=== PATIENT | female | born 1950 | race Caucasian/White ===

== ENCOUNTER 2016-10-03 12:25 | Inpatient (IN) | payer MEDICARE ==
[~2016-10-03 12:25] MED LIST: AMIODARONE 50 MG/ML 3 ML VIAL IV ONE; DEXTROSE 5% IN WATER 100 ML BAG IV ONE; DEXTROSE 50%-WATER 50 ML SYRINGE IVP ONE; EPINEPHrine 10 ML SYRINGE (0.1 MG/ML) ONE; SODIUM CHLORIDE 0.9% 250 ML BAG ONE
--- NOTE | 2016-10-03 12:40 | ED ---
General Adult HPI - General Stated complaint: cardiac Time Seen by Provider: 10/03/16 12:25 Source: RN notes reviewed - History of Present Illness Initial comments: This is a 66-year-old female was in the hospital to get some diabetic education when she collapsed in the elevator. CPR was initiated initially and immediately by a route sales delivery driver in the elevator with her. According to the monitor while she was in V. fib she was shocked once given 1 of epi and intubated. Patient's pulse returned prior to arrival in the emergency department. Patient states she had no symptoms prior to this event. Patient currently does complain of chest pain but CPR was performed for about 10-15 minutes. At this time she is intubated difficulty with any further history but she is awake and alert and oriented. - Related Data Home Medications Medication Instructions Recorded Confirmed ALPRAZolam [Xanax] 0.25 mg PO BID PRN 06/20/16 06/20/16 Albuterol Inhaler [Ventolin Hfa 1 - 2 puff INHALATION RT-Q6H PRN 06/20/16 Inhaler] Albuterol Nebulized [Ventolin 2.5 mg INHALATION RT-Q6H PRN 06/20/16 06/20/16 Nebulized] Allopurinol [Zyloprim] 300 mg PO HS 06/20/16 06/20/16 Aspirin EC [Ecotrin Low Dose] 162 mg PO HS 06/20/16 06/20/16 Beclomethasone Dipropionate [Qvar 1 puff INHALATION RT-BID 06/20/16 06/20/16 80 mcg] Carvedilol [Coreg] 12.5 mg PO BID 06/20/16 06/20/16 FLUoxetine HCL [PROzac] 20 mg PO DAILY 06/20/16 06/20/16 Famotidine [Pepcid] 20 mg PO HS 06/20/16 06/20/16 Fish Oil/Dha/Epa [Fish Oil 1,200 1 cap PO DAILY 06/20/16 06/20/16 mg Fish Oil] INSULIN LISPRO (humaLOG) [humaLOG 8 - 12 units SQ TID-W/MEALS 06/20/16 06/20/16 (formulary)] Insulin Glargine [Lantus] 10 - 16 unit SQ HS 06/20/16 06/20/16 Losartan [Cozaar] 50 mg PO DAILY 06/20/16 06/20/16 Montelukast [Singulair] 10 mg PO HS 06/20/16 06/20/16 Nitroglycerin Sl Tabs [Nitrostat] 0.4 mg SUBLINGUAL Q5M PRN 06/20/16 06/20/16 Rosuvastatin Calcium [Crestor] 5 mg PO MOWE 06/20/16 06/20/16 Spironolactone [Aldactone] 25 mg PO DAILY 06/20/16 06/20/16 Vitamin E (Dl,Tocopheryl Acet) 400 unit PO DAILY 06/20/16 06/20/16 [Vitamin E] guaiFENesin 400 mg PO BID PRN 06/20/16 06/20/16 metFORMIN HCL [Glucophage Xr] 1,500 mg PO PC-SUPPER 06/20/16 06/20/16 Previous Rx's Medication Instructions Recorded Isosorbide Mononitrate ER [Imdur] 30 mg PO DAILY #30 tab.er.24h 06/24/16 Ranolazine [Ranexa] 500 mg PO Q12HR #60 tab.er.12h 06/24/16 Allergies Allergy/AdvReac Type Severity Reaction Status Date / Time amoxicillin [From Augmentin] Allergy Unknown Verified 06/20/16 22:45 cefprozil [From Cefzil] Allergy Unknown Verified 06/20/16 22:45 clavulanic acid Allergy Unknown Verified 06/20/16 22:45 [From Augmentin] sulfamethoxazole Allergy Unknown Verified 06/20/16 22:45 [From Bactrim] trimethoprim [From Bactrim] Allergy Unknown Verified 06/20/16 22:45 Review of Systems ROS Statement: Those systems with pertinent positive or pertinent negative responses have been documented in the HPI. ROS Other: All systems not noted in ROS Statement are negative. Past Medical History Past Medical History: Coronary Artery Disease (CAD), Chest Pain / Angina, Hyperlipidemia, Hypertension, Myocardial Infarction ([place]) Additional Past Medical History / Comment(s): Mi X3 Last Myocardial Infarction Date:: 2007 History of Any Multi-Drug Resistant Organisms: None Reported Past Surgical History: Back Surgery, Coronary Bypass/CABG, Joint Replacement, Orthopedic Surgery Additional Past Surgical History / Comment(s): right shoulder replacement, back surgX2 Past Anesthesia/Blood Transfusion Reactions: No Reported Reaction Past Psychological History: No Psychological Hx Reported Smoking Status: Never smoker Past Alcohol Use History: Occasional Past Drug Use History: None Reported - Past Family History Father Family Medical History: Coronary Artery Disease (CAD), Hypertension, Myocardial Infarction ([place]) Additional Family Medical History / Comment(s): Open heart, hypoglycemia, kidney stones Mother Family Medical History: Coronary Artery Disease (CAD), Hypertension, Myocardial Infarction ([place]) Additional Family Medical History / Comment(s): open heart surg, siatic nerve issues General Exam - General Exam Comments Initial Comments: GENERAL: Patient is well-developed and well-nourished. Patient is nontoxic and well- hydrated and is in mild distress. ENT: Neck is soft and supple. No significant lymphadenopathy is noted. Oropharynx is clear. Moist mucous membranes. Neck has full range of motion without eliciting any pain. EYES: The sclera were anicteric and conjunctiva were pink and moist. Extraocular movements were intact and pupils were equal round and reactive to light. Eyelids were unremarkable. PULMONARY: Unlabored respirations. Good breath sounds bilaterally. No audible rales rhonchi or wheezing was noted. Patient is currently intubated CARDIOVASCULAR: There is a regular rate and rhythm without any murmurs gallops or rubs. Patient 's chest pain is reproducible ABDOMEN: Soft and nontender with normal bowel sounds. No palpable organomegaly was noted. There is no palpable pulsatile mass. SKIN: Skin is clear with no lesions or rashes and otherwise unremarkable. NEUROLOGIC: Patient is alert and oriented x3. Cranial nerves II through XII are grossly intact. Motor and sensory are also intact. Normal speech, volume and content. Symmetrical smile. MUSCULOSKELETAL: Normal extremities with adequate strength and full range of motion. No lower extremity swelling or edema. No calf tenderness. LYMPHATICS: No significant lymphadenopathy is noted PSYCHIATRIC: Normal psychiatric evaluation. Course Vital Signs 10/03/16 10/03/16 10/03/16 12:25 12:36 12:54 Temperature 97.1 F L Pulse Rate 150 H 72 74 Respiratory 16 16 16 Rate Blood Pressure 141/74 125/87 140/81 O2 Sat by Pulse 95 95 100 Oximetry 10/03/16 10/03/16 10/03/16 13:01 13:11 13:30 Temperature Pulse Rate 72 68 68 Respiratory 18 17 18 Rate Blood Pressure 146/85 148/86 118/65 O2 Sat by Pulse 100 100 97 Oximetry 10/03/16 13:40 Temperature Pulse Rate 64 Respiratory 18 Rate Blood Pressure 109/60 O2 Sat by Pulse 97 Oximetry Medical Decision Making - Medical Decision Making EKG shows normal sinus rhythm at 97 bpm ME interval is 114 QRS is 132 QT interval is 46 QTC is 5:15 when I compared this EKG to an other EKG it appears as though the patient has developed an intraventricular block since the old EKG which was done in June 2016. I started the patient amiodarone with 150 mg bolus. I extubated the patient. Patient's chest x-ray shows the ET tube into far. Patient was stable after the extubation I spoke with Dr. has not admitted the patient I consult cardiology. I wrote admitting orders. I continued the amiodarone on the floor - Lab Data Result diagrams: 10/03/16 12:40 10/03/16 12:40 Lab Results 10/03/16 10/03/16 10/03/16 Range/Units 12:40 12:40 12:40 WBC 7.3 (3.8-10.6) k/uL RBC 4.06 (3.80-5.40) m/uL Hgb 13.1 (11.4-16.0) gm/dL Hct 40.4 (34.0-46.0) % MCV 99.6 (80.0-100.0) fL MCH 32.3 (25.0-35.0) pg MCHC 32.4 (31.0-37.0) g/dL RDW 15.1 (11.5-15.5) % Plt Count 252 (150-450) k/uL Neutrophils % 64 % Lymphocytes % 28 % Monocytes % 4 % Eosinophils % 2 % Basophils % 1 % Neutrophils # 4.6 (1.3-7.7) k/uL Lymphocytes # 2.0 (1.0-4.8) k/uL Monocytes # 0.3 (0-1.0) k/uL Eosinophils # 0.2 (0-0.7) k/uL Basophils # 0.1 (0-0.2) k/uL Macrocytosis Slight PT (9.0-12.0) sec INR (<1.1) APTT (22.0-30.0) sec Sodium 135 L (137-145) mmol/L Potassium 5.3 H (3.5-5.1) mmol/L Chloride 103 (98-107) mmol/L Carbon Dioxide 16 L (22-30) mmol/L Anion Gap 16 mmol/L BUN 22 H (7-17) mg/dL Creatinine 1.24 H (0.52-1.04) mg/dL Est GFR (MDRD) Af Amer 53 (>60 ml/min/1.73 sqM) Est GFR (MDRD) Non-Af 43 (>60 ml/min/1.73 sqM) Glucose 432 H (74-99) mg/dL Calcium 9.8 (8.4-10.2) mg/dL Magnesium 1.7 (1.6-2.3) mg/dL Total Bilirubin 0.8 (0.2-1.3) mg/dL AST 115 H (14-36) U/L ALT 122 H (9-52) U/L Alkaline Phosphatase 69 (38-126) U/L Total Creatine Kinase 54 (30-135) U/L CK-MB (CK-2) 1.5 (0.0-2.4) ng/mL CK-MB (CK-2) Rel Index 2.8 Troponin I 0.047 H* (0.000-0.034) ng/mL NT-Pro-B Natriuret Pep pg/mL Total Protein 6.4 (6.3-8.2) g/dL Albumin 3.9 (3.5-5.0) g/dL 10/03/16 10/03/16 Range/Units 12:40 12:40 WBC (3.8-10.6) k/uL RBC (3.80-5.40) m/uL Hgb (11.4-16.0) gm/dL Hct (34.0-46.0) % MCV (80.0-100.0) fL MCH (25.0-35.0) pg MCHC (31.0-37.0) g/dL RDW (11.5-15.5) % Plt Count (150-450) k/uL Neutrophils % % Lymphocytes % % Monocytes % % Eosinophils % % Basophils % % Neutrophils # (1.3-7.7) k/uL Lymphocytes # (1.0-4.8) k/uL Monocytes # (0-1.0) k/uL Eosinophils # (0-0.7) k/uL Basophils # (0-0.2) k/uL Macrocytosis PT 10.3 (9.0-12.0) sec INR 1.0 (<1.1) APTT 21.2 L (22.0-30.0) sec Sodium (137-145) mmol/L Potassium (3.5-5.1) mmol/L Chloride (98-107) mmol/L Carbon Dioxide (22-30) mmol/L Anion Gap mmol/L BUN (7-17) mg/dL Creatinine (0.52-1.04) mg/dL Est GFR (MDRD) Af Amer (>60 ml/min/1.73 sqM) Est GFR (MDRD) Non-Af (>60 ml/min/1.73 sqM) Glucose (74-99) mg/dL Calcium (8.4-10.2) mg/dL Magnesium (1.6-2.3) mg/dL Total Bilirubin (0.2-1.3) mg/dL AST (14-36) U/L ALT (9-52) U/L Alkaline Phosphatase (38-126) U/L Total Creatine Kinase (30-135) U/L CK-MB (CK-2) (0.0-2.4) ng/mL CK-MB (CK-2) Rel Index Troponin I (0.000-0.034) ng/mL NT-Pro-B Natriuret Pep 1020 pg/mL Total Protein (6.3-8.2) g/dL Albumin (3.5-5.0) g/dL Critical Care Time Critical Care Time: Yes Total Critical Care Time: 35 Disposition Clinical Impression: Ventricular fibrillation, Cardiac arrest Disposition: ADMITTED IP TO THIS [facility] Time of Disposition: 13:46
[2016-10-03] MEDS ORDERED: AMIODARONE 450 MG in DEXTROSE 5% IN WATER 250 ML IV ONE ×2 (12:45)
[2016-10-03] MEDS ORDERED: DEXTROSE 5% IN WATER 100 ML with AMIODARONE 150 MG IV ONE (12:45)
--- NOTE | 2016-10-03 12:55 | XR ---
EXAMINATION TYPE: XR chest 1V portable DATE OF EXAM: 10/03/2016 12:48 PM HISTORY: Shortness of breath. COMPARISON: 06/20/2016 TECHNIQUE: Single view of the chest is submitted. FINDINGS: Endotracheal tube is 1.5 cm from the darwin. Demonstrated are scattered senescent parenchymal change. Right upper lobe infiltrate is difficult to exclude. The heart is stable. Hilar and mediastinal structures are within normal limits. Degenerative changes are seen of the dorsal spine. IMPRESSION: 1. Endotracheal tube as discussed. 2. I cannot exclude right upper lobe infiltrate.
[2016-10-03] MEDS ORDERED: LORazepam 2 MG/ML SYRINGE IV STA (12:56)
[2016-10-03 12:58] LABS: Basophils # (A) 0.1 k/uL (0-0.2); Basophils % (A) 1 %; CH 31.5; CHCM 31.8; Eosinophils # (A) 0.2 k/uL (0-0.7); Eosinophils % (A) 2 %; HCT 40.4 % (34.0-46.0); HDW 2.65; HGB 13.1 gm/dL (11.4-16.0); Luc # (Auto) 0.12; Luc % (Auto) 2; Lymphocytes % (A) 28 %; MCH 32.3 pg (25.0-35.0); MCHC 32.4 g/dL (31.0-37.0); MCV 99.6 fL (80.0-100.0); Macrocytosis Slight; Monocytes # (A) 0.3 k/uL (0-1.0); Monocytes % (A) 4 %; Neutrophils # (A) 4.6 k/uL (1.3-7.7); Neutrophils % (A) 64 %; RBC 4.06 m/uL (3.80-5.40); RDW 15.1 % (11.5-15.5); WBC 7.3 k/uL (3.8-10.6); WBC (Perox) 7.58
[2016-10-03] MEDS: SODIUM CHLORIDE 0.9% 1,000 ML IV SCH (13:00)
[2016-10-03 13:14] LABS: Calcium 9.8 mg/dL (8.4-10.2); Magnesium 1.7 mg/dL (1.6-2.3); Potassium 5.3 mmol/L (3.5-5.1); Total Bilirubin 0.8 mg/dL (0.2-1.3); Total Protein 6.4 g/dL (6.3-8.2)
[2016-10-03 13:15] LABS: Partial Thromboplastin Time 21.2 sec (22.0-30.0); Prothrombin Time 10.3 sec (9.0-12.0)
[2016-10-03 13:31] LABS: Creatine Kinase MB 1.5 ng/mL (0.0-2.4)
[2016-10-03 13:39] LABS: Troponin I 0.047 ng/mL (0.000-0.034)
[2016-10-03] MEDS ORDERED: KETOROLAC 60 MG/2 ML VIAL IVP STA (13:43)
[2016-10-03] MEDS ORDERED: MORPHINE SULFATE 2 MG/ML SYRINGE IVP ONE (13:44)
[2016-10-03] MEDS ORDERED: NITROGLYCERIN SL TABS 0.4 MG TAB SUBLINGUAL PRN ×2 (13:46→15:25)
[2016-10-03 13:47] LABS: Glucose,Whole Blood 355 mg/dL (75-99)
--- NOTE | 2016-10-03 14:28 | ECHOF ---
Referral Reason:Cardiac arrest MEASUREMENTS -------- HEIGHT: 147.3 cm WEIGHT: 91.6 kg BP: 109/60 RVIDd: 2.8 cm (< 3.3) IVSd: 1.4 cm (0.6 - 1.1) LVIDd: 3.9 cm (3.9 - 5.3) LVPWd: 1.4 cm (0.6 - 1.1) IVSs: 1.6 cm LVIDs: 3.3 cm LVPWs: 1.7 cm LA Diam: 4.0 cm (2.7 - 3.8) LAESV Index (A-L): 17.40 ml/m Ao Diam: 2.8 cm (2.0 - 3.7) MV EXCURSION: 12.842 mm (> 18.000) MV EF SLOPE: 20 mm/s (70 - 150) EPSS: 1.1 cm MV E Skinny: 0.60 m/s MV DecT: 266 ms MV A Skinny: 0.72 m/s MV E/A Ratio: 0.83 AV maxP.56 mmHg AV meanP.28 mmHg RAP: 5.00 mmHg RVSP: 38.58 mmHg FINDINGS -------- This was a technically adequate study. The left ventricular size is normal. There is moderate concentric left ventricular hypertrophy. Overall left ventricular systolic function is severely impaired with, an EF between 25 - 30 %. Apical anterior LV wall motion is akinetic. Apical lateral LV wall motion is akinetic. Apical inferior LV wall motion is akinetic. Apical septum LV wall motion is akinetic. The right ventricle is normal in size and function. Normal LA size by volume 22+/-6 ml/m2. The right atrium is normal in size. Aortic valve is trileaflet and is moderately thickened. There is awypjbmd-xi-[id number] aortic stenosis present. Peak/mean gradient across the Aortic Valve is 16.56mmHg / 7.28mmHg. The mitral valve leaflets are mildly thickened. Mild mitral annular calcification present. Mild mitral regurgitation is present. Mild tricuspid regurgitation present. There is mild pulmonary hypertension. The right ventricular systolic pressure, as measured by Doppler, is 38.58mmHg. Trace/mild (physiologic) pulmonic regurgitation. The aortic root size is normal. There is no pericardial effusion. CONCLUSIONS -------- 1. This was a technically adequate study. 2. Normal LA size by volume 22+/-6 ml/m2. 3. Aortic valve is trileaflet and is moderately thickened. 4. There is pmochdgc-ce-ktqchk aortic stenosis present. 5. Peak/mean gradient across the Aortic Valve is 16.56mmHg / 7.28mmHg. 6. The mitral valve leaflets are mildly thickened. 7. Mild mitral annular calcification present. 8. Mild mitral regurgitation is present. 9. Mild tricuspid regurgitation present. 10. There is mild pulmonary hypertension. 11. The right ventricular systolic pressure, as measured by Doppler, is 38.58mmHg. 12. The left ventricular size is normal. 13. Trace/mild (physiologic) pulmonic regurgitation. 14. The aortic root size is normal. 15. There is no pericardial effusion. 16. There is moderate concentric left ventricular hypertrophy. 17. Overall left ventricular systolic function is severely impaired with, an EF between 25 - 30 %. 18. Apical anterior LV wall motion is akinetic. 19. Apical lateral LV wall motion is akinetic. 20. Apical inferior LV wall motion is akinetic. 21. Apical septum LV wall motion is akinetic. 22. The right ventricle is normal in size and function. [employer]OL [employer]RI[employer] SUPERVISOR: Adia Self RDCS
[2016-10-03 15:01] LABS: Glucose,Whole Blood 352 mg/dL (75-99)
[2016-10-03] MEDS ORDERED: ALPRAZolam 0.25 MG TAB PO PRN (15:25)
[2016-10-03 15:45] LABS: Glucose,Whole Blood 306 mg/dL (75-99)
--- NOTE | 2016-10-03 15:48 | P.CRDCN ---
History of Present Illness Consult date: 10/03/16 Requesting physician: Codie Abreu Reason for Consult (text): Cardiac arrest Chief complaint: Cardiac arrest History of present illness: This is a pleasant 66-year-old female with known history of coronary artery disease and prior bypass surgery in 2012 at which time she underwent ADAM to the LAD, saphenous vein graft to the diagonal 1, saphenous vein graft to the OM1 and saphenous vein graft to the PDA, prior to that patient did have a stent to the RCA as well as the LAD. Most recent cardiac catheterization was performed in June of last year which revealed 2 patent grafts, patent ADAM to the LAD and patent saphenous vein graft to the PDA, 100% vein graft to the OM right dominant. Most recent echocardiogram with Doppler study was performed in August of last year which revealed an ejection fraction of 40% with moderately dilated left atrium, abnormal trileaflet aortic valve with mild aortic regurg. The aortic valve was calcified. Mild to moderate mitral regurg at that time. Patient also has history of diabetes, hypertension, hyperlipidemia, family history of premature coronary artery disease. The patient actually came to the hospital today to attend an outpatient diabetes education class, she was in the elevator, speaking with Dr. Christine, when all of a sudden she fell down to the ground. Patient became unresponsive, did not have a palpable pulse and was not breathing. CPR was instantly initiated, subsequent to this, patient was noted to be in ventricular fibrillation and did receive one shock from the AICD at 200. She also received one dose of epinephrine, and an amp of D50. Patient had not eaten all day prior to this event occurring either. We were able to get a pulse back in this patient, she was transferred to the emergency room, blood pressure 138/60 with a heart rate in the 80s. EKG was performed at that time which revealed a normal sinus rhythm with left bundle-branch block pattern. Patient was initiated on IV amiodarone in the emergency room. She was intubated prior to transfer to the emergency room. He is currently extubated. Echocardiogram with Doppler study performed here revealed a moderate to severe aortic stenosis, moderate concentric LVH, left ventricular systolic function severely impaired with an ejection fraction of 25-30% with apical anterior lateral inferior and septal akinesis. CBC was normal. Potassium 5.3, sodium 135, BUN 22, creatinine 1.2. AST 1:15, Alk Phos 69, ALT 122. BNP level MXX, initial troponin 0.047. Magnesium level I.7. Current blood pressure 110/50 with a heart rate in the 60s , 100% on 3 L of oxygen. Past Medical History Past Medical History: Coronary Artery Disease (CAD), Chest Pain / Angina, Hyperlipidemia, Hypertension, Myocardial Infarction ([place]) Additional Past Medical History / Comment(s): Mi X3 Last Myocardial Infarction Date:: 2007 History of Any Multi-Drug Resistant Organisms: None Reported Past Surgical History: Back Surgery, Coronary Bypass/CABG, Joint Replacement, Orthopedic Surgery Additional Past Surgical History / Comment(s): right shoulder replacement, back surgX2 Past Anesthesia/Blood Transfusion Reactions: No Reported Reaction Past Psychological History: No Psychological Hx Reported Smoking Status: Never smoker Past Alcohol Use History: Occasional Past Drug Use History: None Reported - Past Family History Father Family Medical History: Coronary Artery Disease (CAD), Hypertension, Myocardial Infarction ([place]) Additional Family Medical History / Comment(s): Open heart, hypoglycemia, kidney stones Mother Family Medical History: Coronary Artery Disease (CAD), Hypertension, Myocardial Infarction ([place]) Additional Family Medical History / Comment(s): open heart surg, siatic nerve issues Medications and Allergies Home Medications Medication Instructions Recorded Confirmed Type ALPRAZolam [Xanax] 0.25 mg PO DAILY PRN 06/20/16 10/03/16 History Albuterol Inhaler [Ventolin Hfa 1 - 2 puff INHALATION RT-Q6H PRN 06/20/16 History Inhaler] Allopurinol [Zyloprim] 300 mg PO HS 06/20/16 10/03/16 History Aspirin EC [Ecotrin Low Dose] 162 mg PO HS 06/20/16 10/03/16 History Beclomethasone Dipropionate [Qvar 2 puff INHALATION RT-BID 06/20/16 10/03/16 History 80 mcg] Carvedilol [Coreg] 12.5 mg PO BID 06/20/16 10/03/16 History Famotidine [Pepcid] 20 mg PO HS 06/20/16 10/03/16 History INSULIN LISPRO (humaLOG) [humaLOG See Protocol SQ TID-W/MEALS 06/20/16 10/03/16 History (formulary)] Insulin Glargine [Lantus] See Protocol SQ HS 06/20/16 10/03/16 History Montelukast [Singulair] 10 mg PO HS 06/20/16 10/03/16 History Nitroglycerin Sl Tabs [Nitrostat] 0.4 mg SUBLINGUAL Q5M PRN 06/20/16 10/03/16 History Rosuvastatin Calcium [Crestor] 5 mg PO MOWE 06/20/16 10/03/16 History Spironolactone [Aldactone] 25 mg PO DAILY 06/20/16 10/03/16 History guaiFENesin 400 mg PO BID PRN 06/20/16 10/03/16 History metFORMIN HCL [Glucophage Xr] 1,500 mg PO PC-SUPPER 06/20/16 10/03/16 History FLUoxetine HCL [PROzac] 10 mg PO HS 10/03/16 10/03/16 History Furosemide [Lasix] 20 mg PO DAILY 10/03/16 10/03/16 History Isosorbide Mononitrate ER [Imdur] 30 mg PO QAM 10/03/16 10/03/16 History Losartan [Cozaar] 25 mg PO DAILY 10/03/16 10/03/16 History Point Clear-3 Fatty Acids/Fish Oil [Fish 1 cap PO DAILY 10/03/16 10/03/16 History Oil 1,000 mg Softgel] Allergies Allergy/AdvReac Type Severity Reaction Status Date / Time amoxicillin [From Augmentin] Allergy Unknown Verified 06/20/16 22:45 cefprozil [From Cefzil] Allergy Unknown Verified 06/20/16 22:45 clavulanic acid Allergy Unknown Verified 06/20/16 22:45 [From Augmentin] sulfamethoxazole Allergy Unknown Verified 06/20/16 22:45 [From Bactrim] trimethoprim [From Bactrim] Allergy Unknown Verified 06/20/16 22:45 Physical Exam Vitals: Vital Signs Temp Pulse Resp BP Pulse Ox 10/03/16 15:02 97.6 F 62 14 110/55 100 10/03/16 14:11 64 14 145/66 98 PHYSICAL EXAMINATION: HEENT: Head is atraumatic, normocephalic. Pupils equal, round. Neck is supple. There is no elevated jugular venous pressure. HEART EXAMINATION: Heart S1 and S2 systolic ejection murmur is heard. CHEST EXAMINATION: Lungs are clear with minimal crackles to the bases. Positive chest wall tenderness on palpation and with deep breathing, likely secondary to CPR compressions ABDOMEN: Soft, obese, nontender. Bowel sounds are heard. No organomegaly noted. EXTREMITIES: 2+ peripheral pulses with no evidence of peripheral edema and no calf tenderness noted. NEUROLOGIC patient is awake, alert and oriented -3. . Results 10/03/16 12:40 10/03/16 12:40 Current Medications Generic Name Dose Route Start Last Admin Trade Name Freq PRN Reason Stop Dose Admin Albuterol Sulfate 2.5 mg 10/03/16 15:25 Ventolin Nebulized INHALATION RT-Q6H PRN Shortness Of Breath Allopurinol 300 mg 10/03/16 21:00 Zyloprim PO HS CORIE Alprazolam 0.25 mg 10/03/16 15:25 Xanax PO DAILY PRN Anxiety Aspirin 162 mg 10/03/16 21:00 Aspirin PO HS CORIE Atorvastatin Calcium 10 mg 10/03/16 16:00 Lipitor PO MOWE CORIE Beclomethasone Dipropionate 2 puff 10/03/16 20:00 Qvar INHALATION RT-BID CORIE Carvedilol 12.5 mg 10/03/16 17:30 Coreg PO BID-W/MEALS CORIE Famotidine 20 mg 10/03/16 21:00 Pepcid PO HS CORIE Fluoxetine HCl 10 mg 10/03/16 21:00 Prozac PO HS CORIE Amiodarone HCl 450 mg/ 259 mls @ 34.53 mls/hr 10/03/16 12:45 10/03/16 12:57 Dextrose/Water IV 10/03/16 20:15 1 mg/min .Q7H31M ONE 34.53 mls/hr 1 MG/MIN Administration Sodium Chloride 1,000 mls @ 20 mls/hr 10/03/16 13:00 10/03/16 13:00 Saline 0.9% IV 20 mls/hr .Q24H CORIE Administration Isosorbide Mononitrate 30 mg 10/04/16 09:00 Imdur PO QAM CORIE Nitroglycerin 0.4 mg 10/03/16 13:46 Nitrostat SUBLINGUAL Q5M PRN Chest Pain Nitroglycerin 0.4 mg 10/03/16 15:25 Nitrostat SUBLINGUAL Q5M PRN Chest Pain Ranolazine 500 mg 10/03/16 21:00 Ranexa PO Q12HR [facility] EKG Interpretations (text) EKG shows a normal sinus rhythm with a left bundle-branch block pattern Assessment and Plan Plan: Assessment and plan #1 cardiac arrest exact etiology yet undetermined. Patient was noted to have ventricular fibrillation requiring defibrillation. Currently in normal sinus rhythm. #2 known history of coronary artery disease with prior stent placement and bypass surgery, most recent cardiac catheterization performed in June of last year which revealed 2 patent grafts, patent ADAM to the LAD, patent vein graft to the PDA, 100% vein graft to the OM. Medical therapy advised at that time. #3 hypertension #4 diabetes, initial blood glucose 352 after receiving an amp of D50 #5 hyperlipidemia #6 hypertension #7 family history of premature coronary artery disease Plan The patient is currently on IV amiodarone and IV heparin . Echocardiogram with Doppler study revealed moderate to severe aortic stenosis with an ejection fraction of 25-30%. Evidence of apical anterior ,lateral, inferior and septal akinesia. Patient is also currently on aspirin, Lipitor, Coreg, Imdur 30 mg daily, Ranexa. Patient will be transferred to the intensive care unit. Further recommendations to follow DNP note has been reviewed, I agree with a documented findings and plan of care. Patient was seen and examined.
[2016-10-03] MEDS ORDERED: ATORVASTATIN 10 MG TAB PO SCH (16:00)
[2016-10-03] MEDS: CARVEDILOL 12.5 MG TAB PO SCH (16:03)
[2016-10-03] MEDS ORDERED: MAGNESIUM SULFATE-D5W PMX 1 GM in DEXTROSE/WATER 1 100ML.BAG IVPB ONE (16:30)
[2016-10-03 17:53] LABS: Glucose,Whole Blood 305 mg/dL (75-99)
[2016-10-03] MEDS: INSULIN LISPRO (humaLOG) 300 UNIT/3 ML VIAL SQ SCH ×2 (17:54→22:02)
--- NOTE | 2016-10-03 18:08 | P.PN ---
Progress Note - Text This is an addendum to the dictated cardiology consultation. The patient has a known history of coronary artery disease, ischemic cardiomyopathy with an ejection fraction of 35-40% in the past, mild aortic stenosis, history of diabetes, hyperlipidemia and obesity. She has underwent cardiac catheterization in June 2016 and medical therapy was recommended. She has been having occasional stable angina pectoralis but has been more active physically with improvement in her energy, breathing and blood sugar control. Today she was going up to attend a diabetes class, in the elevator when I was with her and after talking with her she suddenly collapsed. CPR was initiated and she was intubated. She was found to be in V. fib on the monitor and received one cardioversion. She also received an amp of of D50. She regained consciousness was normal blood pressure and heart rate. She was extubated in the emergency room. She is awake and alert at this time, according to her prior to the event she did not have any palpitations, or chest pain. She has no prior history of documented ventricular tachycardia or ventricular fibrillation. She did not have any significant change in the frequency or the pattern of her anginal pain. It is possible that the patient had ventricular tachycardia, ventricle fibrillation in view of the known ischemic cardiomyopathy. I will continue her amiodarone for 24 hours, I will review the pattern of her enzymes and her EKG. It is very likely that she will require an ICD. I discussed his findings with her and her family. Depending on her progress further recommendations will be made. Thank you for this consult we will follow with you.
[2016-10-03] MEDS: ALBUTEROL NEBULIZED 2.5 MG/3 ML INHALATION PRN (19:56)
[2016-10-03 20:18] LABS: Creatine Kinase MB 3.3 ng/mL (0.0-2.4); Troponin I 0.4 ng/mL (0.000-0.034)
[2016-10-03] MEDS: CRESTOR 5 MG PO SCH (21:30)
[2016-10-03] MEDS: ALLOPURINOL 300 MG TAB PO SCH (21:31)
[2016-10-03] MEDS: FAMOTIDINE 20 MG TAB PO SCH (21:31)
[2016-10-03] MEDS: RANOLAZINE 500 MG TAB.ER.12H PO SCH (21:31)
[2016-10-03] MEDS: FLUoxetine HCL 10 MG CAP PO SCH (21:31)
[2016-10-03] MEDS: ASPIRIN 81 MG CHEW PO SCH (21:31)
[2016-10-03 21:47] LABS: Glucose,Whole Blood 189 mg/dL (75-99)
[2016-10-03] MEDS: INSULIN GLARGINE 100 UNIT/ML 10 ML VIAL SQ SCH (22:01)
--- NOTE | 2016-10-03 22:17 | HP ---
DATE OF ADMISSION: 10/03/2016 The patient is a 66 -year-old female came for diabetic education in the hospital. In the elevator, the patient had cardiopulmonary arrest. Patient went into V. tach and V. Fib. Fortunately television station manager was present in the elevator and Dr. Christine was present in the elevator. Dr. Christine follows this patient as an outpatient. Patient was shocked and given one dose of epinephrine, intubated, was sent to the ER. Patient was subsequently did well and patient was extubated. Patient is clinically doing well and alert and oriented x3 at this point of time and, although CPR was performed for 10 to 15 minutes apparently, patient is awake, and oriented x3. Patient history goes as below. Patient's previous ejection fraction was 40%. Did have one wall motion abnormality in the past now. There is a repeat echocardiogram that was done today showed decreased ejection fraction of 25%, probably because of ( ) myocardium or new myocardial infarction ejection fraction of 25 to 35% with apically left anterior left overall akinetic and lateral left ventricular wall motion is a candidate and apical inferior left ventricle motion is akinetic as well and apical septum left ventricular wall motion is a candidate. I am starting him on heparin unless and patient also has mild pulmonary hypertension. Moderate to severe aortic stenosis. The patient had a cardiac catheterization in July, which showed triple-vessel disease and patient is on maximize medical therapy with ( ) and patient is only on 20 mg of Lasix and spironolactone, which I am holding it for now because of the borderline renal function and patient is euvolemic at this point of time in spite of all these, baseline creatinine is around 0.9 and holding Aldactone and losartan because of hyperkalemia. Patient has mildly elevated troponin 0.047, can be related to acute myocardial infarction or just because of CPR and EKG no sinus rhythm. The patient was started on amiodarone drip. REVIEW OF SYSTEMS: CONSTITUTIONAL: No fever, no malaise, no fatigue. HEENT: No recent visual problems or hearing problems. Denied any sore throat. CARDIOVASCULAR: presently some chest soreness from resuscitation. PULMONARY: No shortness of breath, no cough, no hemoptysis. GASTROINTESTINAL: No diarrhea, no nausea, no vomiting, no abdominal pain. Normoactive bowel sounds. NEUROLOGICAL: No headaches, no weakness, no numbness. HEMATOLOGICAL: Denies any bleeding or petechiae. GENITOURINARY: Denies any burning micturition, frequency, or urgency. MUSCULOSKELETAL/RHEUMATOLOGICAL: Denies any joint pain, swelling, or any muscle pain. ENDOCRINE: Denies any polyuria or polydipsia. The rest of the 14 point review of systems is negative. Home medications: 1. Alprazolam. 2. Albuterol. 3. Allopurinol. 4. Aspirin. 5. Beclomethasone. 6. Coreg. 7. Fluoxetine. 8. Famotidine. 9. Fish oil. 10. Insulin. 11. Lispro insulin. 12. Glargine. 13. Losartan. 14. Montelukast. 15. Nitroglycerin. 16. ( ). 17. Spironolactone. 18. Vitamin E. 19. Guaifenesen. 20. Metformin. 21. Isosorbide. 22. ( ). ALLERGIES: ALLERGIC TO AMOXICILLIN CEPHALOSPORINS, ( ) AND BACTRIM. PAST MEDICAL HISTORY: Significant for severe coronary artery disease, congestive heart failure, chronic systolic dysfunction, aortic stenosis, myocardial infarction twice in the past with a CABG in the past and stents in the past, cardiac catheterization recently. SOCIAL HISTORY: Denied any smoking, alcohol abuse or any drug abuse. FAMILY HISTORY: Father had coronary artery disease, hypertension, myocardial infarction, and mother had coronary disease, hypertension, myocardial infarction. PHYSICAL EXAMINATION: Temperature 97.6, pulse of 62, respiratory rate of 14. Blood pressure 110/55. Saturating at 100% on 3 liters of O2 by nasal cannula. GENERAL: The patient is alert and oriented x3, not in any acute distress. Well developed, well nourished. HEENT: Pupils are round and equally reacting to light. EOMI. No scleral icterus. No conjunctival pallor. Normocephalic, atraumatic. No pharyngeal erythema. No thyromegaly. CARDIOVASCULAR: S1 and S2 present. No murmurs, rubs, or gallops. PULMONARY: Chest is clear to auscultation, no wheezing or crackles. ABDOMEN: Soft, nontender, nondistended, normoactive bowel sounds. No palpable organomegaly. MUSCULOSKELETAL: No joint swelling or deformity. EXTREMITIES: No cyanosis, clubbing, or pedal edema. NEUROLOGICAL: Gross neurological examination did not reveal any focal deficits. SKIN: No rashes. LABORATORY DATA: CBC, CMP are abnormal for mildly low sodium of 135, potassium of 5.3 and bicarbonate of 16. Anion gap of 16. I will obtain a lactic acid level on her BNP of 0.047, AST and ALT at 155 and 122. We will repeat them again. Can be related to shock liver. Patient's creatinine is 1.24, baseline is 0.9, as mentioned above, magnesium of 17.7. Replace magnesium as well. ASSESSMENT AND PLAN: 1. Cardiorespiratory arrest. Possibility of myocardial infarction. Patient had ventricular tachycardia. Patient most probably will need AICD. Patient will be continued on amiodarone. We will also start her on heparin drip at this point of time because of possibility of acute myocardial infarction. Considering the echocardiogram changes and mildly elevated troponin both of which can be secondary to acute cardiopulmonary arrest and ( ) myocardium. 2. Severe coronary artery disease. 3. Congestive heart failure, chronic systolic dysfunction without any acute exacerbation. The patient because of worsening renal function, and hyperkalemia, I am holding her losartan, spironolactone and Lasix at this time. 4. Acute renal failure, prerenal azotemia, probably due to diuresis. 5. Elevated liver enzymes secondary to decreased organ perfusion from cardiopulmonary arrest, will repeat the liver enzymes tomorrow. 6. Mildly elevated troponin secondary to CPR itself versus possibility of acute myocardial infarction. Cardiology will further evaluate and make decision regarding cardiac catheterization. Patient may eventually need AICD adjustment. 7. Highly elevated blood sugars for which we will use IV insulin. 8. Depression. 9. Hyperlipidemia. Primary care physician is Dr. Trace Christian.
[2016-10-03] MEDS: MONTELUKAST 10 MG TAB PO SCH (22:27)
[2016-10-03] MEDS: HYDROcodone/APAP 5-325MG 1 EACH TAB PO PRN (22:27)
[2016-10-03] MEDS ORDERED: AMIODARONE 450 MG in DEXTROSE 5% IN WATER 250 ML IV SCH ×2 (23:00)
[2016-10-03] MEDS: BECLOMETHASONE DIP 80 MCG/PUFF INHALER INHALATION SCH (23:11)
[2016-10-04 01:23] LABS: Creatine Kinase MB 2.8 ng/mL (0.0-2.4)
[2016-10-04 01:24] LABS: Troponin I 0.422 ng/mL (0.000-0.034)
[2016-10-04] MEDS: HYDROcodone/APAP 5-325MG 1 EACH TAB PO PRN ×5 (02:13→23:37)
[2016-10-04 02:18] LABS: Glucose,Whole Blood 124 mg/dL (75-99)
[2016-10-04] MEDS: INSULIN LISPRO (humaLOG) 300 UNIT/3 ML VIAL SQ SCH ×6 (02:19→20:20)
[2016-10-04 05:27] LABS: Basophils % (A) 1 %; CH 31.8; CHCM 33.4; Eosinophils # (A) 0.1 k/uL (0-0.7); Eosinophils % (A) 2 %; HCT 36.1 % (34.0-46.0); HDW 2.54; HGB 11.6 gm/dL (11.4-16.0); Luc % (Auto) 1; Lymphocytes # (A) 1.3 k/uL (1.0-4.8); Lymphocytes % (A) 17 %; MCH 30.8 pg (25.0-35.0); MCHC 32.1 g/dL (31.0-37.0); MCV 95.9 fL (80.0-100.0); Mean Platelet Volume 7.3; Monocytes # (A) 0.4 k/uL (0-1.0); Monocytes % (A) 6 %; Neutrophils # (A) 5.4 k/uL (1.3-7.7); Neutrophils % (A) 73 %; RBC 3.77 m/uL (3.80-5.40); WBC 7.3 k/uL (3.8-10.6); WBC (Perox) 7.84
[2016-10-04 05:30] LABS: Calcium 9.2 mg/dL (8.4-10.2); Magnesium 1.9 mg/dL (1.6-2.3); Phosphorous 3.2 mg/dL (2.5-4.5); Potassium 4.2 mmol/L (3.5-5.1); Total Bilirubin 0.9 mg/dL (0.2-1.3); Total Protein 5.7 g/dL (6.3-8.2)
[2016-10-04] MEDS: BECLOMETHASONE DIP 80 MCG/PUFF INHALER INHALATION SCH ×2 (07:40→19:14)
[2016-10-04] MEDS: FLUoxetine HCL 10 MG CAP PO SCH ×2 (07:54→20:20)
[2016-10-04 07:57] LABS: Glucose,Whole Blood 124 mg/dL (75-99)
[2016-10-04] MEDS: ISOSORBIDE MONONITRATE ER 30 MG TAB.ER.24H PO SCH (08:58)
[2016-10-04] MEDS: DOCUSATE 100 MG CAP PO SCH ×2 (08:58→20:30)
[2016-10-04] MEDS: MAGNESIUM SULFATE-D5W PMX 1 GM in DEXTROSE/WATER 1 100ML.BAG IVPB SCH ×2 (08:58→11:13)
[2016-10-04] MEDS: CARVEDILOL 12.5 MG TAB PO SCH ×2 (08:58→18:34)
[2016-10-04] MEDS: RANOLAZINE 500 MG TAB.ER.12H PO SCH ×2 (08:59→20:20)
[2016-10-04] MEDS ORDERED: SPIRONOLACTONE 25 MG TAB PO SCH (09:00)
[2016-10-04] MEDS ORDERED: ASPIRIN 325 MG TAB PO SCH (09:00)
[2016-10-04] MEDS ORDERED: FUROSEMIDE 20 MG TAB PO SCH (09:00)
[2016-10-04] MEDS ORDERED: ceFAZolin 1,000 MG in SODIUM CHLORIDE 0.9% IRRIGATIO 250 ML IRRIGATION ONE (12:41)
[2016-10-04] MEDS ORDERED: ceFAZolin 2 GM in SODIUM CHLORIDE 0.9% 100 ML IVPB ONE (12:41)
[2016-10-04] MEDS ORDERED: SODIUM CHLORIDE 0.9% 1,000 ML IV SCH (12:45)
[2016-10-04 13:22] LABS: Glucose,Whole Blood 279 mg/dL (75-99)
[2016-10-04] MEDS ORDERED: MELATONIN 3 MG TABLET PO PRN (13:44)
[2016-10-04] MEDS: LOSARTAN 25 MG TAB PO SCH (13:49)
[2016-10-04] MEDS: traMADol 50 MG TAB PO PRN ×2 (15:12→20:29)
[2016-10-04] MEDS: SODIUM CHLORIDE 0.9% 1,000 ML IV SCH (15:13)
--- NOTE | 2016-10-04 15:49 | P.CNPUL ---
History of Present Illness Consult date: 10/04/16 Requesting physician: Codie Abreu Reason for consult: other (Critical care management) Chief complaint: Cardiac arrest History of present illness: This is a very pleasant 66-year-old female patient who follows with Dr. Christian as her primary care physician. She has a history of coronary artery disease, previous [place] 3 with previous coronary artery bypass grafting, hyperlipidemia, hypertension, diabetes mellitus, asthma. She is maintained on Singulair, Qvar, albuterol. She is a lifelong nonsmoker. She presented here to the hospitalization visitor planning to attend diabetic education classes when she arrested in the elevator. CPR was initiated, she was found to be in ventricular fibrillation and received 1 shock with return of spontaneous circulation. She was intubated and placed on the mechanical ventilator and initially seen in the emergency room. Prior to being admitted to the intensive care unit she was extubated and stable. She is seen today in consultation. Currently she is awake and alert in no acute distress. She is x-ray sitting up in the chair at the bedside. She denies any shortness of breath, cough or congestion. She has significant chest wall pain secondary to CPR otherwise no complaints of palpitations lightheadedness or dizziness. Her echocardiogram revealed moderate to severe aortic stenosis, mild pulmonary hypertension and severely impaired left ventricular systolic function with estimated ejection fraction between 25 and 30%. The plan is for AICD insertion tomorrow. Presently she is maintaining good O2 saturations in the upper 90s on 3 L/m per nasal cannula. She has been hemodynamically stable. Not on any pressors. No further ventricular arrhythmias. Review of Systems 14 point review of system was conducted. All negative other than as mentioned in the HPI. Past Medical History Past Medical History: Asthma, Coronary Artery Disease (CAD), Chest Pain / Angina , Heart Failure, Diabetes Mellitus, Hyperlipidemia, Hypertension, Myocardial Infarction ([place]), Osteoarthritis (OA), Pneumonia, Syncope Additional Past Medical History / Comment(s): Mi X3,GOUT, SPINAL STENOSIS(HAS HAS SX), BRONCHITIS, CONSTIPATION(LAST BM 10-03-16), FEW FALLS LATELY"DIZZY AT TIMES". 10-03-16 CARDIAC ARREST Last Myocardial Infarction Date:: 2007 History of Any Multi-Drug Resistant Organisms: None Reported Past Surgical History: Appendectomy, Back Surgery, Section, Coronary Bypass/CABG, Joint Replacement, Orthopedic Surgery Additional Past Surgical History / Comment(s): right shoulder replacement, back surgX2, QUAD CABG-"DIAPHRAGM PARALIZED AFTER SX HAD TO GO TO PULMONARY REHAB, 7 HEART CATHS-MULTIPLE STENTS BUT NOT SURE EXACTLY HOW MANY. 3 C-SECTIONS, OVARIAN CYST(RT), DENTAL IMPLANT(LOWER), RT SHOULDER REPLACMENT Past Anesthesia/Blood Transfusion Reactions: No Reported Reaction Additional Past Anesthesia/Blood Transfusion Reaction / Comment(s): BLOOD TRANSFUSION AFTER SHOULDER SX- NO REACTION. Past Psychological History: Depression Additional Psychological History / Comment(s): PT LIVES ALONE , HAS 1 INDOOR CAT. USES A WALKER IF WALKING DISTANCE, NO OUTSIDE SERVICES. HAS WALKER, SHOWER CHAIR, HIGH RISE TOILET SEAT, LIFT CHAIR. 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 PT STATES OCC MILD DEPRESSION BUT NO THOUGHTS OF HARMING SELF. Smoking Status: Never smoker Past Alcohol Use History: Occasional Past Drug Use History: None Reported - Past Family History Father Family Medical History: Coronary Artery Disease (CAD), Hypertension, Myocardial Infarction ([place]) Additional Family Medical History / Comment(s): Open heart, hypoglycemia, kidney stones Mother Family Medical History: Coronary Artery Disease (CAD), Hypertension, Myocardial Infarction ([place]) Additional Family Medical History / Comment(s): open heart surg, siatic nerve issues Medications and Allergies Home Medications Medication Instructions Recorded Confirmed Type ALPRAZolam [Xanax] 0.25 mg PO DAILY PRN 06/20/16 10/03/16 History Albuterol Inhaler [Ventolin Hfa 1 - 2 puff INHALATION RT-Q6H PRN 06/20/16 History Inhaler] Allopurinol [Zyloprim] 300 mg PO HS 06/20/16 10/03/16 History Aspirin EC [Ecotrin Low Dose] 162 mg PO HS 06/20/16 10/03/16 History Beclomethasone Dipropionate [Qvar 2 puff INHALATION RT-BID 06/20/16 10/03/16 History 80 mcg] Carvedilol [Coreg] 12.5 mg PO BID 06/20/16 10/03/16 History Famotidine [Pepcid] 20 mg PO HS 06/20/16 10/03/16 History INSULIN LISPRO (humaLOG) [humaLOG See Protocol SQ TID-W/MEALS 06/20/16 10/03/16 History (formulary)] Insulin Glargine [Lantus] 10 unit SQ HS 06/20/16 10/03/16 History Montelukast [Singulair] 10 mg PO HS 06/20/16 10/03/16 History Nitroglycerin Sl Tabs [Nitrostat] 0.4 mg SUBLINGUAL Q5M PRN 06/20/16 10/03/16 History Rosuvastatin Calcium [Crestor] 5 mg PO MOWE 06/20/16 10/03/16 History Spironolactone [Aldactone] 25 mg PO DAILY 06/20/16 10/03/16 History guaiFENesin 400 mg PO BID PRN 06/20/16 10/03/16 History metFORMIN HCL [Glucophage Xr] 1,500 mg PO PC-SUPPER 06/20/16 10/03/16 History FLUoxetine HCL [PROzac] 10 mg PO HS 10/03/16 10/03/16 History Furosemide [Lasix] 20 mg PO DAILY 10/03/16 10/03/16 History Isosorbide Mononitrate ER [Imdur] 30 mg PO QAM 10/03/16 10/03/16 History Losartan [Cozaar] 25 mg PO DAILY 10/03/16 10/03/16 History Freeburn-3 Fatty Acids/Fish Oil [Fish 1 cap PO DAILY 10/03/16 10/03/16 History Oil 1,000 mg Softgel] Allergies Allergy/AdvReac Type Severity Reaction Status Date / Time amoxicillin [From Augmentin] Allergy Unknown Verified 10/03/16 18:03 cefprozil [From Cefzil] Allergy Unknown Verified 10/03/16 18:03 clavulanic acid Allergy Unknown Verified 10/03/16 18:03 [From Augmentin] sulfamethoxazole Allergy Unknown Verified 10/03/16 18:03 [From Bactrim] trimethoprim [From Bactrim] Allergy Unknown Verified 10/03/16 18:03 Physical Exam Vitals: Vital Signs Temp Pulse Resp BP Pulse Ox 10/04/16 13:00 57 L 12 104/54 93 L 10/04/16 12:00 98.5 F 60 13 115/54 96 10/04/16 11:00 57 L 17 148/74 97 10/04/16 10:00 58 L 18 148/74 96 10/04/16 09:00 65 18 147/49 96 10/04/16 08:00 97.2 F L 57 L 19 138/63 92 L 10/04/16 07:30 60 24 138/63 96 10/04/16 07:00 60 20 119/59 99 10/04/16 06:30 57 L 17 119/59 98 10/04/16 06:00 56 L 18 96/49 97 10/04/16 05:30 57 L 20 96/49 96 10/04/16 05:00 62 13 99/40 96 10/04/16 04:30 65 17 99/40 98 10/04/16 04:00 98.3 F 60 20 106/51 97 10/04/16 03:30 59 L 16 106/51 97 10/04/16 03:00 58 L 16 121/66 96 10/04/16 02:30 60 16 121/66 97 10/04/16 02:00 63 17 113/62 95 10/04/16 01:30 5 L 16 113/62 95 10/04/16 01:00 53 L 17 116/64 96 10/04/16 00:30 65 25 H 116/64 96 10/04/16 00:00 97.8 F 49 L 13 117/57 96 10/03/16 23:30 64 17 117/57 96 10/03/16 23:27 65 36 H 117/57 97 10/03/16 23:00 63 24 121/61 97 10/03/16 22:30 64 24 121/61 10/03/16 22:00 19 122/68 98 10/03/16 21:30 0 L 22 118/75 98 10/03/16 21:00 65 18 110/70 98 10/03/16 20:30 63 21 118/65 99 10/03/16 20:07 51 L 10/03/16 20:00 98.3 F 62 13 120/56 100 10/03/16 19:59 51 L 10/03/16 19:30 64 18 136/65 96 10/03/16 19:00 62 28 H 118/71 100 10/03/16 18:30 60 44 H 118/71 100 10/03/16 18:00 61 23 147/72 97 10/03/16 17:30 57 L 13 111/61 85 L 0301/17 17:00 53 L 32 H 126/62 100 10/03/16 16:30 51 L 25 H 112/62 88 L 10/03/16 16:00 60 23 133/76 97 10/03/16 15:33 96.1 F L 61 17 136/75 97 Intake and Output 10/04/16 10/04/16 10/04/16 06:59 14:59 22:59 Intake Total 293.6 343.5 Balance 293.6 343.5 Intake: IV 220.2 143.5 Amiodarone 450 mg In 100.2 83.5 Dextrose 5% in Water 250 ml @ 0.5 MG/MIN 17.26 mls /hr IV .Q15H1M [facility] Rx#: [id number] Sodium Chloride 0.9% 1, 120 60 000 ml @ 20 mls/hr IV . Q24H [facility] Rx#:[id number] Intake, IV Titration 73.4 200 Amount Amiodarone 450 mg In 33.4 Dextrose 5% in Water 250 ml @ 1 MG/MIN 34.53 mls/ hr IV .Q7H31M [facility] Rx#: [id number] Magnesium Sulfate-D5w Pmx 200 1 gm In Dextrose/Water 1 100ml.bag @ 100 mls/hr IVPB Q1H [facility] Rx#: [id number] Sodium Chloride 0.9% 1, 40 000 ml @ 20 mls/hr IV . Q24H [facility] Rx#:[id number] Other: Weight 92.3 kg GENERAL EXAM: Obese. Alert, comfortable in no apparent distress. HEAD: Normocephalic. EYES: Normal reaction of pupils, equal size. NOSE: Clear with pink turbinates. THROAT: No erythema or exudates. NECK: No masses, no JVD. CHEST: No chest wall deformity. LUNGS: Equal air entry with no wheeze, rhonchi or dullness. Crackles in the posterior bases. CVS: S1 and S2 normal with audible systolic murmur, regular rhythm. ABDOMEN: No hepatosplenomegaly, normal bowel sounds, no guarding or rigidity. SPINE: No scoliosis or deformity SKIN: No rashes CENTRAL NERVOUS SYSTEM: No focal deficits, tone is normal in all 4 extremities. Extremities: There is no significant peripheral edema. No clubbing, no cyanosis. Peripheral pulses are intact. Results - Laboratory Findings CBC and BMP: 10/04/16 04:49 10/04/16 04:49 PT/INR, D-dimer PT 10.3 sec (9.0-12.0) 10/03/16 12:40 INR 1.0 (<1.1) 10/03/16 12:40 Abnormal lab findings: Abnormal Labs 10/03/16 10/03/16 10/03/16 15:43 17:44 18:53 RBC Sodium BUN Creatinine Glucose POC Glucose (mg/dL) 306 H 305 H AST ALT CK-MB (CK-2) 3.3 H* Troponin I 0.400 H* Total Protein Albumin Triglycerides 10/03/16 10/04/16 10/04/16 21:46 00:36 02:15 RBC Sodium BUN Creatinine Glucose POC Glucose (mg/dL) 189 H 124 H AST ALT CK-MB (CK-2) 2.8 H* Troponin I 0.422 H* Total Protein Albumin Triglycerides 10/04/16 10/04/16 10/04/16 04:49 04:49 07:56 RBC 3.77 L Sodium 129 L BUN 27 H Creatinine 1.30 H Glucose 121 H POC Glucose (mg/dL) 124 H AST 50 H ALT 85 H CK-MB (CK-2) Troponin I Total Protein 5.7 L Albumin 3.4 L Triglycerides 271 H 10/04/16 13:20 RBC Sodium BUN Creatinine Glucose POC Glucose (mg/dL) 279 H AST ALT CK-MB (CK-2) Troponin I Total Protein Albumin Triglycerides - Diagnostic Findings Chest x-ray: image reviewed Assessment and Plan Plan: Impression: #1 Cardiac arrest secondary to ventricular fibrillation, status post defibrillation 1 and CPR with spontaneous return of circulation. #2 Acute hypoxic respiratory failure secondary to above requiring brief intubation mechanical ventilatory support, recovered. #3 Known history of coronary artery disease with previous stent placement and coronary artery bypass grafting. #4 Ischemic cardiomyopathy with significant global hypokinesia and with severely impaired left ventricular systolic function. Estimated ejection fraction 25-30%. #5 Severe aortic stenosis. #6Diabetes mellitus, type II. #7 History of asthma. #8 Hypertension. #9 Hyperlipidemia. #10 Obesity. Plan: The patient was seen and evaluated by Dr. Cabrera. Her chest x-ray and labs were reviewed. We'll continue with her current pulmonary medications. She is presently stable from the pulmonary and critical care standpoint. We'll continue to monitor her here closely in the ICU. The plan is for automatic implantable cardioverter defibrillator to be implanted tomorrow. Cardiology is following closely. We will continue to follow and make further recommendations based on her clinical status.
--- NOTE | 2016-10-04 15:59 | XR ---
EXAMINATION TYPE: XR chest 1V DATE OF EXAM: 10/04/2016 3:37 PM COMPARISON: 10/03/2016 HISTORY: CHF TECHNIQUE: Single frontal view of the chest is obtained. FINDINGS: Postsurgical changes and cardiomegaly noted. Subsegmental changes at the left lung base. N o overt failure or pneumothorax. IMPRESSION: 1. Basilar atelectasis favored over infiltrate.
--- NOTE | 2016-10-04 16:02 | PN ---
Mrs. Auguste is a 66-year-old female with known history of coronary heart disease, history of severe ischemic cardiomyopathy, who yesterday had sudden cardiac arrest. She is doing well this morning. Her breathing is stable. She has chest wall tenderness. She is in sinus mechanism. There is no evidence of arrhythmia. She has no dizziness and no palpitations. She continues to be on the IV amiodarone, aspirin once a day, Coreg 12.5 mg twice a day, insulin, Crestor, Singulair 10 mg daily, Ranexa 500 mg twice a day. PHYSICAL EXAMINATION: Blood pressure running in the 130s to 140s with a heart rate in the 50s. LUNGS: Clear. HEART: Regular rate, rhythm. S1, S2. No S3. With systolic murmur 3/6 at the base. No diastolic murmur. No rub. Chest wall with chest wall tenderness. ABDOMEN: Soft, nontender, obese. EXTREMITIES: No or edema. LAB DATA: BUN and creatinine 27 and 1.3. Potassium 4.2. Hemoglobin of 11.6. Echocardiogram revealed severely impaired left ventricular systolic function. There was evidence of aortic stenosis. Her troponins are 0.04, 0.4, 0.4. IMPRESSION: 1. Status post cardiac arrest in a patient with known history of cardiomyopathy. 2. Status post coronary artery bypass grafting and percutaneous revascularization. 3. History of prior myocardial infarction. 4. Hypertension. 5. Diabetes. 6. Hyperlipidemia. 7. Aortic stenosis. RECOMMENDATIONS: From the cardiac standpoint, I would stop the amiodarone. I will start her back on the losartan. Will follow her renal function. I have recommended proceeding with an ICD implantation. The rationale behind the procedure as well as risks and complications were discussed with the patient and her family. The procedure will be done tomorrow by Dr. Mckeon. Depending on her progress, further recommendations will be made.
[2016-10-04 17:57] LABS: Glucose,Whole Blood 197 mg/dL (75-99)
[2016-10-04] MEDS ORDERED: ONDANSETRON 4 MG/2 ML VIAL IVP PRN (18:20)
--- NOTE | 2016-10-04 19:11 | PN ---
Patient is a 66-year-old female admitted after ventricular fibrillation and cardiopulmonary arrest. Patient is clinically doing well. Patient is going for AICD placement tomorrow. No plan on cardiac catheterization considering her recent cardiac cath. Patient has mild hyponatremia; unsure of the exact etiology of hyponatremia, probably hypovolemic hyponatremia. Creatinine remains at 1.3. Patient is complaining of chest soreness. Will use tramadol for that. Avoid other NSAIDs because of the poor renal function. REVIEW OF SYSTEMS: CARDIOVASCULAR: As described in HPI. PULMONARY: Denied any shortness of breath. No cough or hemoptysis. GASTROINTESTINAL: No diarrhea, nausea or vomiting. No abdominal pain. Normoactive bowel sounds. NEUROLOGIC: No headaches, no weakness, no numbness. Medications were reviewed. PHYSICAL EXAMINATION: VITAL SIGNS: Temperature 98.5, pulse of 57, respiratory rate of 12, blood pressure is 104/54, saturating at 93% on 3-L O2 nasal cannula. GENERAL: The patient is alert and oriented x3, not in any acute distress. Well developed, well nourished. Some chest wall tenderness. HEENT: Pupils are round and equally reacting to light. EOMI. No scleral icterus. No conjunctival pallor. Normocephalic, atraumatic. No pharyngeal erythema. No thyromegaly. CARDIOVASCULAR: S1 and S2 present. No murmurs, rubs, or gallops. PULMONARY: Chest is clear to auscultation, no wheezing or crackles. ABDOMEN: Soft, nontender, nondistended, normoactive bowel sounds. No palpable organomegaly. MUSCULOSKELETAL: No joint swelling or deformity. EXTREMITIES: No cyanosis, clubbing, or pedal edema. NEUROLOGICAL: Gross neurological examination did not reveal any focal deficits. SKIN: No rashes. LABORATORY DATA: CBC, BMP are abnormal for low sodium of 129, creatinine of 1.3, which is fairly similar to yesterday. Liver enzymes are improving. ASSESSMENT AND PLAN: 1. Status post cardiopulmonary arrest secondary to ventricular tachycardia. Patient is presently continues to be on amiodarone drip, is going for AICD tomorrow. 2. Coronary artery disease with percutaneous coronary interventions in the past. 3. Congestive heart failure, chronic systolic dysfunction without any acute exacerbation. Will obtain a repeat chest x-ray today. Patient is hyponatremic, can be hypovolemic hyponatremia. 4. Chest wall pain. Patient is presently not on any fluids or any diuretic therapy. 5. Elevated liver enzymes, which are improving, secondary to temporary hypoperfusion secondary to cardiopulmonary arrest. 6. Elevated troponin secondary to CPR. 7. Depression. 8. Hyperlipidemia. 9. Diabetes mellitus. Patient will be started on home regimen. Discontinue IV insulin. 10. Hyperlipidemia.
[2016-10-04] MEDS: ALBUTEROL NEBULIZED 2.5 MG/3 ML INHALATION PRN (19:14)
[2016-10-04] MEDS: FAMOTIDINE 20 MG TAB PO SCH (20:19)
[2016-10-04] MEDS: ALLOPURINOL 300 MG TAB PO SCH (20:19)
[2016-10-04] MEDS: ASPIRIN 81 MG CHEW PO SCH (20:19)
[2016-10-04] MEDS: MONTELUKAST 10 MG TAB PO SCH (20:19)
[2016-10-04 20:20] LABS: Glucose,Whole Blood 238 mg/dL (75-99)
[2016-10-04] MEDS: INSULIN GLARGINE 100 UNIT/ML 10 ML VIAL SQ SCH (20:20)
[2016-10-05] MEDS: traMADol 50 MG TAB PO PRN (03:02)
[2016-10-05] MEDS: INSULIN LISPRO (humaLOG) 300 UNIT/3 ML VIAL SQ SCH ×8 (03:05→21:40)
[2016-10-05 03:07] LABS: Glucose,Whole Blood 189 mg/dL (75-99)
[2016-10-05 05:12] LABS: Basophils % (A) 0 %; CH 31.8; CHCM 33.2; Eosinophils # (A) 0.2 k/uL (0-0.7); Eosinophils % (A) 4 %; HCT 35.6 % (34.0-46.0); HDW 2.57; HGB 11.8 gm/dL (11.4-16.0); Luc % (Auto) 2; Lymphocytes # (A) 1.1 k/uL (1.0-4.8); Lymphocytes % (A) 16 %; MCH 31.8 pg (25.0-35.0); MCHC 33.1 g/dL (31.0-37.0); MCV 96.2 fL (80.0-100.0); Mean Platelet Volume 7.3; Monocytes # (A) 0.4 k/uL (0-1.0); Monocytes % (A) 6 %; Neutrophils % (A) 73 %; RDW 14.7 % (11.5-15.5); WBC 6.8 k/uL (3.8-10.6); WBC (Perox) 7.41
[2016-10-05 05:21] LABS: Calcium 9.2 mg/dL (8.4-10.2); Potassium 4.8 mmol/L (3.5-5.1)
[2016-10-05 05:22] LABS: Partial Thromboplastin Time 23.2 sec (22.0-30.0); Prothrombin Time 9.9 sec (9.0-12.0)
[2016-10-05] MEDS ORDERED: CLINDAMYCIN 900 MG in DEXTROSE 5% IN WATER 50 ML IVPB ONE ×2 (06:00)
[2016-10-05] MEDS: SODIUM CHLORIDE 0.9% 1,000 ML IV SCH ×2 (06:00→06:59)
[2016-10-05] MEDS: HYDROcodone/APAP 5-325MG 1 EACH TAB PO PRN ×4 (06:00→20:30)
[2016-10-05] MEDS ORDERED: CLINDAMYCIN 600 MG in SODIUM CHLORIDE 0.9% IRRIGATIO 250 ML IRRIGATION ONE (06:00)
[2016-10-05] MEDS ORDERED: MIDAZOLAM 2 MG/2 ML VIAL ONE (07:48)
[2016-10-05] MEDS ORDERED: fentaNYL (PF) 50 MCG/ML 2 ML AMP ONE (07:48)
[2016-10-05] MEDS ORDERED: SODIUM CHLORIDE 0.9% 500 ML IV ONE (08:00)
[2016-10-05] MEDS ORDERED: IODIXANOL 320 MG/ML 100 ML IV ONE (08:18)
[2016-10-05] MEDS: LIDOCAINE 1% INJ 10MG/ML (20 ML MDV) SQ ONE ×2 (08:24→08:30)
--- NOTE | 2016-10-05 08:44 | XR ---
EXAMINATION TYPE: XR chest 1V DATE OF EXAM: 10/05/2016 6:30 AM COMPARISON: NONE INDICATION: Short of breath TECHNIQUE: Single frontal view of the chest is obtained. FINDINGS: The heart size is upper limits of normal for size. Sternotomy wires from previous CABG are evident.. The pulmonary vasculature is normal. There may be some increasing right lower lobe medial infiltrate. Some minimal subsegmental atelectasi s may be developing at the left base. Findings are only mildly advanced from prior study. Right shoulder prosthesis is noted IMPRESSION: 1. There may be some developing minimal infiltrate at the lung bases. Atelectasis or early pneumonia could be considered.
[2016-10-05] MEDS ORDERED: ACETAMINOPHEN TAB 325 MG TAB PO PRN (09:12)
--- NOTE | 2016-10-05 09:26 | P.PCN ---
Date of Procedure: 10/05/16 Preoperative Diagnosis: Ischemic cardiomyopathy, status post cardiac arrest. Postoperative Diagnosis: The same Procedure(s) Performed: Implantation of single-chamber AICD, axillary venography. No DFT testing at this time Description of Procedure: HISTORY: This is a 66-year-old female with history of ischemic heart disease, previous anterior wall DE and several cardiac catheterization and stent placement had a cardiac arrest and witnessed ventricular fibrillation from which she was successfully resuscitated. AICD implantation is requested for secondary prevention. Patient was evaluated by Dr. Christine . Left ventricular ejection fraction is about 25-30%. Patient also may have moderate to severe aortic stenosis. This is grossly evaluated by ANGELIC examination. May consider doing DFT testing after evaluation for aortic stenosis. CONSENT:I have discussed the risks, benefits and alternative therapies for the above-mentioned procedure and for both sedation/analgesia as well as necessary blood product administration, if indicated, as they pertain to this patient. The patient has indicated understanding and acceptance of the risks and procedures discussed. PROCEDURE: Patient was brought to the lab in a fasting state. Patient was prepped and draped in the usual fashion. Patient was given IV sedation with fentanyl and Versed. The skin below the left clavicle was infiltrated with lidocaine. An incision was made parallel to deltopectoral groove was deepened until the pectoral fascia was exposed. A pocket was created by blunt dissection and cautery. Axillary venography was performed to delineate the course of the axillary vein. A single venous stick was performed into extrathoracic portion of the axillary vein and a single sheath was advanced over the guidewires and left in subclavian vein. The lead was then maneuvered to the apical region of the left ventricle. LEAD: VENTRICULAR: this is manufactured by [employer]. Model number is [id number] and the serial number is [id number]. THE DEVICE: This is manufactured by [employer]. Model number is [id number] and the serial number is [id number]. The ventricular lead is maneuvered l with help of a straight and curved stylets into the left ventricle apical region. At the apex the R waves are small and threshold was very high. Subsequently the lead was maneuvered to the septal portion and a satisfactory position was obtained and threshold measurements were made. THRESHOLDS: VENTRICLE : The minimal patient threshold is 1 V at pulse width of 0.5 ms. The impedance was 483 ohms. R-wave: Is 7 to 8 mV The lead and pulse generator remained in the pocket after it was washed with antibiotics. Pocket was closed in the usual fashion. The fascia was closed with 2-0 Prolene ,the subcutaneous tissue was closed with 3-0 Prolene and the skin was closed with 4-0 Prolene. PROGRAMMING: BRADYCARDIA THERAPY: MODE: VVI RATE: 40 OUTPUT: ventricle: 3.5 at 0.5 ms : TACHYCARDIA THERAPY VF ZONE: Programmed to a rate of 205 bpm. Therapies programmed to 41 J 8. VT ZONE: Programmed to a rate of 175 with a rhythm ID. Shocks were programmed to 41 J 6. FINAL IMPRESSION: #1. Axillary venography #2. Successful implantation of single coil single-chamber AICD. COMPLICATIONS: nil PLAN: Continue prophylactic antibiotics. Proceed with a ANGELIC to assess the significance of aortic stenosis. If aortic stenosis is not significant, may proceed with the DFT testing later on.
[2016-10-05 09:54] LABS: Glucose,Whole Blood 145 mg/dL (75-99)
[2016-10-05] MEDS: ISOSORBIDE MONONITRATE ER 30 MG TAB.ER.24H PO SCH ×2 (10:27→10:28)
[2016-10-05] MEDS: RANOLAZINE 500 MG TAB.ER.12H PO SCH ×2 (10:28→21:41)
[2016-10-05] MEDS: LOSARTAN 25 MG TAB PO SCH (10:28)
[2016-10-05] MEDS: DOCUSATE 100 MG CAP PO SCH ×2 (10:29→22:43)
--- NOTE | 2016-10-05 10:37 | PN ---
Mrs. Auguste is a 66-year-old female with known history of coronary artery disease, ischemic cardiomyopathy, status post coronary artery bypass grafting and percutaneous revascularization who presented with cardiac arrest. She underwent CPR. Because of the event in the poor LV function, she underwent an ICD implant today. She is having some chest soreness related to the CPR. Her breathing is stable. She denies no dizziness. No palpitation. She has no arrhythmia. No PND. She slept well during the night. She has continued to be in sinus mechanism. She continued to be on aspirin once a day, Coreg 12.5 mg twice a day, isosorbide mononitrate 30 mg daily, Cozaar 25 mg daily, Ranexa 500 mg q.12 hours in addition to Crestor. PHYSICAL EXAMINATION: Blood pressure running in the one teens with the heart rate in the 50s. LUNGS: Clear. HEART: Regular rate and rhythm. S1, S2, no S3, with systolic murmur 2/6, mid peaking. No diastolic murmur. ABDOMEN: Soft, obese, nontender. EXTREMITIES: No significant edema. Lab data revealed BUN and creatinine 22 and 1.2. Potassium 4.8. Hemoglobin of 11.8. IMPRESSION: 1. Status post cardiac arrest with severe cardiomyopathy and episode of ventricular fibrillation. 2. Status post ICD implant. 3. Ischemic cardiomyopathy. 4. History of coronary artery disease. 5. Hyperlipidemia. 6. Diabetes mellitus. 7. Obesity. RECOMMENDATION: From the cardiac standpoint, will continue present therapy. Patient had evidence of aortic stenosis. Her gradient is not high, but that has been the same all along on the recent echocardiogram by planimetry the valve appears to be more significant. Once the patient recovers from this, as an outpatient I will proceed with a transesophageal echocardiogram to further evaluate the aortic valve and guide her treatment. In the meantime will continue present medical regimen and I would expect she should be able to go to the telemetry floor today and increase her level of activity.
--- NOTE | 2016-10-05 11:04 | P.PN ---
Subjective Principal diagnosis: Status post cardiac arrest This is a very pleasant 66-year-old female patient who follows with Dr. Christian as her primary care physician. She has a history of coronary artery disease, previous CT 3 with previous coronary artery bypass grafting, hyperlipidemia, hypertension, diabetes mellitus, asthma. She is maintained on Singulair, Qvar, albuterol. She is a lifelong nonsmoker. She presented here to the hospitalization visitor planning to attend diabetic education classes when she arrested in the elevator. CPR was initiated, she was found to be in ventricular fibrillation and received 1 shock with return of spontaneous circulation. She was intubated and placed on the mechanical ventilator and initially seen in the emergency room. Prior to being admitted to the intensive care unit she was extubated and stable. She is seen today in consultation. Currently she is awake and alert in no acute distress. She is x-ray sitting up in the chair at the bedside. She denies any shortness of breath, cough or congestion. She has significant chest wall pain secondary to CPR otherwise no complaints of palpitations lightheadedness or dizziness. Her echocardiogram revealed moderate to severe aortic stenosis, mild pulmonary hypertension and severely impaired left ventricular systolic function with estimated ejection fraction between 25 and 30%. The plan is for AICD insertion tomorrow. Presently she is maintaining good O2 saturations in the upper 90s on 3 L/m per nasal cannula. She has been hemodynamically stable. Not on any pressors. No further ventricular arrhythmias. Patient was seen today on 10/05/2016, she is doing well, she is asymptomatic, patient underwent implantation of single-chamber AICD by cardiology, and her postoperative course seems to be quite uneventful. Patient is asymptomatic, she is hemodynamically stable, and she is doing quite well. Hence I will likely arrange for the patient to be transferred to a cardiac floor/monitored bed. Objective - Vital Signs Vital signs: Vital Signs Temp 98 F 10/05/16 09:42 Pulse 59 L 10/05/16 10:19 Resp 14 10/05/16 10:19 BP 96/64 10/05/16 09:42 Pulse Ox 94 L 10/05/16 09:42 Intake & Output 10/04/16 10/05/16 10/05/16 18:59 06:59 18:59 Intake Total 483.5 540 296 Output Total 900 Balance 483.5 -360 296 Weight 94.6 kg Intake: IV 283.5 100 296 Amiodarone 450 mg In 83.5 Dextrose 5% in Water 250 ml @ 0.5 MG/MIN 17.26 mls /hr IV .Q15H1M CORIE Rx#: [id number] Sodium Chloride 0.9% 1, 200 100 40 000 ml @ 20 mls/hr IV . Q24H CORIE Rx#:[id number] Intake, IV Titration 200 Amount Magnesium Sulfate-D5w Pmx 200 1 gm In Dextrose/Water 1 100ml.bag @ 100 mls/hr IVPB Q1H CORIE Rx#: [id number] Oral 440 Output: Urine 900 Other: Voiding Method Bedside Commode Bedside Commode # Voids 1 1 - Exam GENERAL EXAM: Obese. Alert, comfortable in no apparent distress. HEAD: Normocephalic. EYES: Normal reaction of pupils, equal size. NOSE: Clear with pink turbinates. THROAT: No erythema or exudates. NECK: No masses, no JVD. CHEST: No chest wall deformity. LUNGS: Equal air entry with no wheeze, rhonchi or dullness. Crackles in the posterior bases. CVS: S1 and S2 normal with audible systolic murmur, regular rhythm. ABDOMEN: No hepatosplenomegaly, normal bowel sounds, no guarding or rigidity. SPINE: No scoliosis or deformity SKIN: No rashes CENTRAL NERVOUS SYSTEM: No focal deficits, tone is normal in all 4 extremities. Extremities: There is no significant peripheral edema. No clubbing, no cyanosis. Peripheral pulses are intact. - Labs CBC & Chem 7: 10/05/16 04:14 10/05/16 04:14 Labs: Abnormal Lab Results - Last 24 Hours (Table) 10/04/16 10/04/16 10/04/16 Range/Units 13:20 17:55 20:18 RBC (3.80-5.40) m/uL Sodium (137-145) mmol/L Chloride (98-107) mmol/L BUN (7-17) mg/dL Creatinine (0.52-1.04) mg/dL Glucose (74-99) mg/dL POC Glucose (mg/dL) 279 H 197 H 238 H (75-99) mg/dL 10/05/16 10/05/16 10/05/16 Range/Units 03:04 04:14 04:14 RBC 3.70 L (3.80-5.40) m/uL Sodium 126 L (137-145) mmol/L Chloride 95 L (98-107) mmol/L BUN 22 H (7-17) mg/dL Creatinine 1.20 H (0.52-1.04) mg/dL Glucose 141 H (74-99) mg/dL POC Glucose (mg/dL) 189 H (75-99) mg/dL 10/05/16 Range/Units 09:49 RBC (3.80-5.40) m/uL Sodium (137-145) mmol/L Chloride (98-107) mmol/L BUN (7-17) mg/dL Creatinine (0.52-1.04) mg/dL Glucose (74-99) mg/dL POC Glucose (mg/dL) 145 H (75-99) mg/dL Assessment and Plan Plan: #1 Cardiac arrest secondary to ventricular fibrillation, status post defibrillation 1 and CPR with spontaneous return of circulation. #2 Acute hypoxic respiratory failure secondary to above requiring brief intubation mechanical ventilatory support, recovered. #3 Known history of coronary artery disease with previous stent placement and coronary artery bypass grafting. #4 Ischemic cardiomyopathy with significant global hypokinesia and with severely impaired left ventricular systolic function. Estimated ejection fraction 25-30%. #5 Severe aortic stenosis. #6Diabetes mellitus, type II. #7 History of asthma. #8 Hypertension. #9 Hyperlipidemia. #10 Obesity. #11 status post implantation of a single-chamber AICD, postoperative day #0 Plan continue present supportive care measures, patient would likely be transferred to a cardiac floor, and hopefully discharge home in the next 24 hours if agreeable by cardiology. Time with Patient: Less than 30
[2016-10-05 11:45] LABS: Glucose,Whole Blood 154 mg/dL (75-99)
[2016-10-05] MEDS: BECLOMETHASONE DIP 80 MCG/PUFF INHALER INHALATION SCH ×2 (13:26→19:33)
[2016-10-05] MEDS: CARVEDILOL 12.5 MG TAB PO SCH ×2 (14:02→17:45)
[2016-10-05] MEDS: CLINDAMYCIN 900 MG in DEXTROSE 5% IN WATER 50 ML IVPB SCH ×4 (14:03→19:55)
[2016-10-05] MEDS: BENZOCAINE/MENTHOL LOZENG 1 EACH LOZENGE MUCOUS MEM PRN (16:46)
[2016-10-05 17:16] LABS: Glucose,Whole Blood 198 mg/dL (75-99)
[2016-10-05 17:44] LABS: Glucose,Whole Blood 177 mg/dL (75-99)
--- NOTE | 2016-10-05 19:33 | PN ---
Patient is a 66-year-old admitted after V. tachycardia, cardiopulmonary arrest. Patient's ejection fraction is 25%. Patient had AICD that was placed today. Patient is otherwise clinically doing well. REVIEW OF SYSTEMS: CARDIOVASCULAR: No chest pain, no orthopnea, no PND, no palpitations. PULMONARY: Denied any shortness of breath. No cough or hemoptysis. GASTROINTESTINAL: No diarrhea, nausea or vomiting. No abdominal pain. Normoactive bowel sounds. NEUROLOGIC: No headaches, no weakness, no numbness. Medications were reviewed. PHYSICAL EXAMINATION: VITAL SIGNS: Temperature 98.1, pulse 62, respiratory rate of 14, blood pressure is 104/46, saturating at 95% on room air. GENERAL: The patient is alert and oriented x3, not in any acute distress. Well developed, well nourished. HEENT: Pupils are round and equally reacting to light. EOMI. No scleral icterus. No conjunctival pallor. Normocephalic, atraumatic. No pharyngeal erythema. No thyromegaly. CHEST WALL EXAMINATION: Patient had AICD that was placed today with preoperative antibiotics of clindamycin. PULMONARY: Chest is clear to auscultation, no wheezing or crackles. ABDOMEN: Soft, nontender, nondistended, normoactive bowel sounds. No palpable organomegaly. MUSCULOSKELETAL: No joint swelling or deformity. EXTREMITIES: No cyanosis, clubbing, or pedal edema. NEUROLOGICAL: Gross neurological examination did not reveal any focal deficits. SKIN: No rashes. LABORATORY DATA: CBC, CMP are abnormal for low sodium of 126, BUN of 22, creatinine 1.2. Chest x-ray from today showed some developing minimal infiltrate or atelectasis. This appears to be mostly secondary to cardiopulmonary resuscitation. ASSESSMENT AND PLAN: 1. Status post cardiopulmonary arrest secondary to ventricular tachycardia. Patient has an AICD now. 2. Severe ischemic cardiomyopathy and congestive heart failure secondary to that. Patient does not appear to be in congestive heart failure exacerbation at this point of time. Continue with present medication. Patient was started on losartan by Cardiology. 3. Chest wall pain secondary to CPR. 4. Patient's liver enzymes have come down. Liver enzyme elevation is secondary to temporary hypoperfusion secondary to CPR. 5. Depression. 6. Hyperlipidemia. 7. Diabetes mellitus. 8. Mild atelectasis secondary to cardiopulmonary resuscitation. I do not believe patient will need any antibiotics. Patient did receive preoperative antibiotics. Regarding ischemic the patient's ejection fraction is around 20 to 25%.
[2016-10-05 21:09] LABS: Glucose,Whole Blood 178 mg/dL (75-99)
[2016-10-05] MEDS: FLUoxetine HCL 10 MG CAP PO SCH (21:39)
[2016-10-05] MEDS: ASPIRIN 81 MG CHEW PO SCH (21:39)
[2016-10-05] MEDS: INSULIN GLARGINE 100 UNIT/ML 10 ML VIAL SQ SCH (21:40)
[2016-10-05] MEDS: FAMOTIDINE 20 MG TAB PO SCH (21:40)
[2016-10-05] MEDS: MONTELUKAST 10 MG TAB PO SCH (21:40)
[2016-10-05] MEDS: ALLOPURINOL 300 MG TAB PO SCH (21:40)
[2016-10-06] MEDS: CLINDAMYCIN 900 MG in DEXTROSE 5% IN WATER 50 ML IVPB SCH ×4 (02:16→10:31)
[2016-10-06] MEDS: INSULIN LISPRO (humaLOG) 300 UNIT/3 ML VIAL SQ SCH ×8 (04:12→20:56)
[2016-10-06 05:43] LABS: Glucose,Whole Blood 229 mg/dL (75-99)
[2016-10-06 06:26] LABS: Basophils % (A) 0 %; CH 31.9; CHCM 33.2; Eosinophils # (A) 0.2 k/uL (0-0.7); Eosinophils % (A) 3 %; HCT 32.7 % (34.0-46.0); HDW 2.64; HGB 11.1 gm/dL (11.4-16.0); Luc # (Auto) 0.25; Luc % (Auto) 3; Lymphocytes # (A) 0.9 k/uL (1.0-4.8); Lymphocytes % (A) 12 %; MCH 32.7 pg (25.0-35.0); MCHC 33.9 g/dL (31.0-37.0); MCV 96.6 fL (80.0-100.0); Mean Platelet Volume 8.1; Monocytes # (A) 0.4 k/uL (0-1.0); Monocytes % (A) 6 %; Neutrophils # (A) 5.9 k/uL (1.3-7.7); Neutrophils % (A) 76 %; RBC 3.39 m/uL (3.80-5.40); RDW 14.9 % (11.5-15.5); WBC 7.7 k/uL (3.8-10.6); WBC (Perox) 8.45
[2016-10-06 06:39] LABS: Calcium 9.3 mg/dL (8.4-10.2); Potassium 5.3 mmol/L (3.5-5.1)
[2016-10-06] MEDS: CARVEDILOL 12.5 MG TAB PO SCH ×2 (06:56→18:11)
[2016-10-06] MEDS: SODIUM CHLORIDE 0.9% 1,000 ML IV SCH ×6 (07:25→18:09)
--- NOTE | 2016-10-06 07:58 | XR ---
EXAMINATION TYPE: XR chest 2V DATE OF EXAM: 10/06/2016 6:34 AM COMPARISON: 10/05/2016 INDICATION: Lead placement check TECHNIQUE: Single frontal view of the chest is obtained. FINDINGS: The heart size is normal. Sternotomy wires are present. The pulmonary vasculature is normal. The lungs are clear. There is placement of a single lead electronic device over the left chest. With the tip directed towa rds the cardiac apex. Right shoulder prosthesis is present. No pneumothorax. IMPRESSION: 1. No acute pulmonary process. 2. Single lead pacemaker placement without pneumothorax.
[2016-10-06] MEDS: BECLOMETHASONE DIP 80 MCG/PUFF INHALER INHALATION SCH ×2 (08:45→21:15)
[2016-10-06] MEDS: ALBUTEROL NEBULIZED 2.5 MG/3 ML INHALATION PRN (08:45)
[2016-10-06] MEDS: HYDROcodone/APAP 5-325MG 1 EACH TAB PO PRN ×4 (09:12→23:15)
[2016-10-06] MEDS: LOSARTAN 25 MG TAB PO SCH (09:14)
[2016-10-06] MEDS: DOCUSATE 100 MG CAP PO SCH ×2 (09:14→20:56)
[2016-10-06] MEDS: RANOLAZINE 500 MG TAB.ER.12H PO SCH ×2 (09:14→20:53)
[2016-10-06] MEDS ORDERED: PROMETHAZ-COD 6.25-10 MG/5 ML 5 ML CUP PO PRN (10:03)
[2016-10-06] MEDS ORDERED: BISACODYL 10 MG SUPP RECTAL PRN (10:19)
--- NOTE | 2016-10-06 11:45 | P.PN ---
Subjective Principal diagnosis: Status post cardiac arrest This is a very pleasant 66-year-old female patient who follows with Dr. Christian as her primary care physician. She has a history of coronary artery disease, previous CO 3 with previous coronary artery bypass grafting, hyperlipidemia, hypertension, diabetes mellitus, asthma. She is maintained on Singulair, Qvar, albuterol. She is a lifelong nonsmoker. She presented here to the hospitalization visitor planning to attend diabetic education classes when she arrested in the elevator. CPR was initiated, she was found to be in ventricular fibrillation and received 1 shock with return of spontaneous circulation. She was intubated and placed on the mechanical ventilator and initially seen in the emergency room. Prior to being admitted to the intensive care unit she was extubated and stable. She is seen today in consultation. Currently she is awake and alert in no acute distress. She is x-ray sitting up in the chair at the bedside. She denies any shortness of breath, cough or congestion. She has significant chest wall pain secondary to CPR otherwise no complaints of palpitations lightheadedness or dizziness. Her echocardiogram revealed moderate to severe aortic stenosis, mild pulmonary hypertension and severely impaired left ventricular systolic function with estimated ejection fraction between 25 and 30%. The plan is for AICD insertion tomorrow. Presently she is maintaining good O2 saturations in the upper 90s on 3 L/m per nasal cannula. She has been hemodynamically stable. Not on any pressors. No further ventricular arrhythmias. Patient was seen today on 10/05/2016, she is doing well, she is asymptomatic, patient underwent implantation of single-chamber AICD by cardiology, and her postoperative course seems to be quite uneventful. Patient is asymptomatic, she is hemodynamically stable, and she is doing quite well. Hence I will likely arrange for the patient to be transferred to a cardiac floor/monitored bed. Reevaluated on 10/06/2016, patient is doing extremely well, she has a minimal dry hacking cough, and she has some soreness from CPR and defibrillation on her anterior chest wall. Otherwise the patient is asymptomatic, and no major issues overnight, no major cardiac arrhythmias and no hemodynamic instability. Labs were reviewed, her sodium seems to be quite low at 123. Her chest x-ray shows no evidence of congestive heart failure and no infiltrates. Renal functioning is about the same with a BUN of 24 creatinine of 1.17 but for some reason the patient has a hyponatremic and hyperkalemic picture hence I would recommend a serum cortisol level, in the meantime increase her IV fluid cautiously to 70 mL/h using 0.9 normal saline. Objective - Vital Signs Vital signs: Vital Signs Temp 97.6 F 10/06/16 09:15 Pulse 65 10/06/16 09:15 Resp 16 10/06/16 09:15 BP 137/71 10/06/16 09:15 Pulse Ox 95 10/06/16 09:15 Intake & Output 10/05/16 10/06/16 10/06/16 18:59 06:59 18:59 Intake Total 886 260 180 Output Total 50 Balance 886 210 180 Weight 93.6 kg Intake: IV 436 60 Sodium Chloride 0.9% 1, 180 60 000 ml @ 20 mls/hr IV . Q24H CORIE Rx#:[id number] Intake, IV Titration 200 Amount Clindamycin 900 mg In 200 Dextrose 5% in Water 50 ml @ 100 mls/hr IVPB Q6H CORIE Rx#:[id number] Oral 450 180 Output: Urine 50 Other: Voiding Method Bedside Commode Toilet # Voids 1 1 - Exam GENERAL EXAM: Obese. Alert, comfortable in no apparent distress. HEAD: Normocephalic. EYES: Normal reaction of pupils, equal size. NOSE: Clear with pink turbinates. THROAT: No erythema or exudates. NECK: No masses, no JVD. CHEST: No chest wall deformity. LUNGS: Equal air entry with no wheeze, rhonchi or dullness. Crackles in the posterior bases. CVS: S1 and S2 normal with audible systolic murmur, regular rhythm. ABDOMEN: No hepatosplenomegaly, normal bowel sounds, no guarding or rigidity. SPINE: No scoliosis or deformity SKIN: No rashes CENTRAL NERVOUS SYSTEM: No focal deficits, tone is normal in all 4 extremities. Extremities: There is no significant peripheral edema. No clubbing, no cyanosis. Peripheral pulses are intact. - Labs CBC & Chem 7: 10/06/16 05:42 10/06/16 05:38 Labs: Abnormal Lab Results - Last 24 Hours (Table) 10/05/16 10/05/16 10/05/16 Range/Units 11:43 17:14 17:44 RBC (3.80-5.40) m/uL Hgb (11.4-16.0) gm/dL Hct (34.0-46.0) % Lymphocytes # (1.0-4.8) k/uL Sodium (137-145) mmol/L Potassium (3.5-5.1) mmol/L Chloride (98-107) mmol/L Carbon Dioxide (22-30) mmol/L BUN (7-17) mg/dL Creatinine (0.52-1.04) mg/dL Glucose (74-99) mg/dL POC Glucose (mg/dL) 154 H 198 H 177 H (75-99) mg/dL 10/05/16 10/06/16 10/06/16 Range/Units 20:48 05:38 05:41 RBC (3.80-5.40) m/uL Hgb (11.4-16.0) gm/dL Hct (34.0-46.0) % Lymphocytes # (1.0-4.8) k/uL Sodium 123 L (137-145) mmol/L Potassium 5.3 H (3.5-5.1) mmol/L Chloride 93 L (98-107) mmol/L Carbon Dioxide 19 L (22-30) mmol/L BUN 24 H (7-17) mg/dL Creatinine 1.17 H (0.52-1.04) mg/dL Glucose 214 H (74-99) mg/dL POC Glucose (mg/dL) 178 H 229 H (75-99) mg/dL 10/06/16 Range/Units 05:42 RBC 3.39 L (3.80-5.40) m/uL Hgb 11.1 L (11.4-16.0) gm/dL Hct 32.7 L (34.0-46.0) % Lymphocytes # 0.9 L (1.0-4.8) k/uL Sodium (137-145) mmol/L Potassium (3.5-5.1) mmol/L Chloride (98-107) mmol/L Carbon Dioxide (22-30) mmol/L BUN (7-17) mg/dL Creatinine (0.52-1.04) mg/dL Glucose (74-99) mg/dL POC Glucose (mg/dL) (75-99) mg/dL Assessment and Plan Plan: #1 Cardiac arrest secondary to ventricular fibrillation, status post defibrillation 1 and CPR with spontaneous return of circulation. #2 Acute hypoxic respiratory failure secondary to above requiring brief intubation mechanical ventilatory support, recovered. #3 Known history of coronary artery disease with previous stent placement and coronary artery bypass grafting. #4 Ischemic cardiomyopathy with significant global hypokinesia and with severely impaired left ventricular systolic function. Estimated ejection fraction 25-30%. #5 Severe aortic stenosis. #6Diabetes mellitus, type II. #7 History of asthma. #8 Hypertension. #9 Hyperlipidemia. #10 Obesity. #11 status post implantation of a single-chamber AICD, postoperative day # 1 #12 electrolytes imbalance with hyponatremia and hyperkalemia, hence I will recommend a serum cortisol level, I will also recommend cautious hydration using 0.9 normal saline at 70 mL per hour. We'll continue to follow, not quite ready for discharge planning at this point specially with her hyponatremia. Time with Patient: Less than 30
[2016-10-06 12:17] LABS: Glucose,Whole Blood 241 mg/dL (75-99)
--- NOTE | 2016-10-06 13:25 | P.PN ---
Subjective Principal diagnosis: Cardiac arrest This is a pleasant 66-year-old female with known history of coronary artery disease and prior bypass surgery in 2012 at which time she underwent ADAM to the LAD, saphenous vein graft to the diagonal 1, saphenous vein graft to the OM1 and saphenous vein graft to the PDA, prior to that patient did have a stent to the RCA as well as the LAD. Most recent cardiac catheterization was performed in June of last year which revealed 2 patent grafts, patent ADAM to the LAD and patent saphenous vein graft to the PDA, 100% vein graft to the OM right dominant. Most recent echocardiogram with Doppler study was performed in August of last year which revealed an ejection fraction of 40% with moderately dilated left atrium, abnormal trileaflet aortic valve with mild aortic regurg. The aortic valve was calcified. Mild to moderate mitral regurg at that time. Patient also has history of diabetes, hypertension, hyperlipidemia, family history of premature coronary artery disease. Patient is status post cardiac arrest, for ventricular fibrillation. Patient underwent implantation of AICD yesterday, device was interrogated this morning and is functioning appropriately. Chest x-ray performed today did not reveal any evidence of pneumothorax. No evidence of congestive cardiac failure. It is noted today that the patient's sodium level is down to 123. We will collect a urine for osmolality and a random urine. Objective - Vital Signs Vital signs: Vital Signs Temp 97.6 F 10/06/16 09:15 Pulse 65 10/06/16 09:15 Resp 16 10/06/16 09:15 BP 137/71 10/06/16 09:15 Pulse Ox 95 10/06/16 09:15 Intake & Output 10/05/16 10/06/16 10/06/16 18:59 06:59 18:59 Intake Total 886 260 180 Output Total 50 Balance 886 210 180 Weight 93.6 kg Intake: IV 436 60 Sodium Chloride 0.9% 1, 180 60 000 ml @ 50 mls/hr IV . Q20H CORIE Rx#:[id number] Intake, IV Titration 200 Amount Clindamycin 900 mg In 200 Dextrose 5% in Water 50 ml @ 100 mls/hr IVPB Q6H CORIE Rx#:[id number] Oral 450 180 Output: Urine 50 Other: Voiding Method Bedside Commode Toilet # Voids 1 1 1 # Bowel Movements 0 - Exam PHYSICAL EXAMINATION: HEENT: Head is atraumatic, normocephalic. Pupils equal, round. Neck is supple. There is no elevated jugular venous pressure. HEART EXAMINATION: R S1 and S2 1 systolic ejection murmur is heard. Site of device implantation dressing is dry and intact. CHEST EXAMINATION: Lungs are clear to auscultation and precussion. No chest wall tenderness is noted on palpation or with deep breathing. ABDOMEN: Soft, nontender. Bowel sounds are heard. No organomegaly noted. EXTREMITIES: 2+ peripheral pulses with trace evidence of peripheral edema and no calf tenderness noted. NEUROLOGIC patient is awake, alert and oriented -3. . - Labs CBC & Chem 7: 10/06/16 05:42 10/06/16 05:38 Labs: Abnormal Lab Results - Last 24 Hours (Table) 10/05/16 10/05/16 10/05/16 Range/Units 17:14 17:44 20:48 RBC (3.80-5.40) m/uL Hgb (11.4-16.0) gm/dL Hct (34.0-46.0) % Lymphocytes # (1.0-4.8) k/uL Sodium (137-145) mmol/L Potassium (3.5-5.1) mmol/L Chloride (98-107) mmol/L Carbon Dioxide (22-30) mmol/L BUN (7-17) mg/dL Creatinine (0.52-1.04) mg/dL Glucose (74-99) mg/dL POC Glucose (mg/dL) 198 H 177 H 178 H (75-99) mg/dL 10/06/16 10/06/16 10/06/16 Range/Units 05:38 05:41 05:42 RBC 3.39 L (3.80-5.40) m/uL Hgb 11.1 L (11.4-16.0) gm/dL Hct 32.7 L (34.0-46.0) % Lymphocytes # 0.9 L (1.0-4.8) k/uL Sodium 123 L (137-145) mmol/L Potassium 5.3 H (3.5-5.1) mmol/L Chloride 93 L (98-107) mmol/L Carbon Dioxide 19 L (22-30) mmol/L BUN 24 H (7-17) mg/dL Creatinine 1.17 H (0.52-1.04) mg/dL Glucose 214 H (74-99) mg/dL POC Glucose (mg/dL) 229 H (75-99) mg/dL 10/06/16 Range/Units 12:05 RBC (3.80-5.40) m/uL Hgb (11.4-16.0) gm/dL Hct (34.0-46.0) % Lymphocytes # (1.0-4.8) k/uL Sodium (137-145) mmol/L Potassium (3.5-5.1) mmol/L Chloride (98-107) mmol/L Carbon Dioxide (22-30) mmol/L BUN (7-17) mg/dL Creatinine (0.52-1.04) mg/dL Glucose (74-99) mg/dL POC Glucose (mg/dL) 241 H (75-99) mg/dL Assessment and Plan Plan: Assessment and plan #1 cardiac arrest exact etiology yet undetermined. Patient was noted to have ventricular fibrillation requiring defibrillation. Status post implantation of AICD Currently in normal sinus rhythm. #2 known history of coronary artery disease with prior stent placement and bypass surgery, most recent cardiac catheterization performed in June of last year which revealed 2 patent grafts, patent ADAM to the LAD, patent vein graft to the PDA, 100% vein graft to the OM. Medical therapy advised at that time. #3 hypertension #4 diabetes, initial blood glucose 352 after receiving an amp of D50 #5 hyperlipidemia #6 hypertension #7 family history of premature coronary artery disease #8 hyponatremia, of unknown etiology. We will obtain urine for random sodium and osmolality. Plan We will obtain urine for random sodium and osmolality today. IV fluids at 50 mL per hour. Lytes BUN and creatinine in the morning. DNP note has been reviewed, I agree with a documented findings and plan of care. Patient was seen and examined.
[2016-10-06 17:09] LABS: Glucose,Whole Blood 175 mg/dL (75-99)
[2016-10-06] MEDS ORDERED: LACTULOSE 20 GM/30 ML CUP PO ONE (17:30)
[2016-10-06] MEDS ORDERED: SODIUM POLYSTYRENE SULFONATE 15 GM/60 ML BOTTLE PO STA (17:52)
[2016-10-06] MEDS: BENZONATATE 100 MG CAP PO SCH (18:09)
--- NOTE | 2016-10-06 20:11 | PN ---
Patient is a 66-year-old admitted with V. tach, cardiopulmonary arrest. Patient has an AICD, the patient's EF was 25%. Patient continues to become hyponatremic. The patient is not in overt heart failure because of which I am giving her IV fluids with close monitoring of pulmonary function and we will obtain a chest x-ray tomorrow morning and the patient needs to be closely watched for pulmonary edema. Because of the hyperkalemia I am holding the losartan temporarily. We will give her Kayexelate at this time. REVIEW OF SYSTEMS: CARDIOVASCULAR: No chest pain, no orthopnea, no PND, no palpitations. PULMONARY: Denied any shortness of breath. No cough or hemoptysis. GASTROINTESTINAL: No diarrhea, nausea or vomiting. No abdominal pain. Normoactive bowel sounds. NEUROLOGIC: No headaches, no weakness, no numbness. Medications are reviewed. PHYSICAL EXAMINATION: VITAL SIGNS: Temperature 97.3, pulse of 68, respiratory rate of 18, blood pressure 117/66, saturating at 93% on room air. GENERAL: The patient is alert and oriented x3, not in any acute distress. Well developed, well nourished. HEENT: Pupils are round and equally reacting to light. EOMI. No scleral icterus. No conjunctival pallor. Normocephalic, atraumatic. No pharyngeal erythema. No thyromegaly. CARDIOVASCULAR: Left chest AICD is in place, PULMONARY: Chest is clear to auscultation, no wheezing or crackles. ABDOMEN: Soft, nontender, nondistended, normoactive bowel sounds. No palpable organomegaly. MUSCULOSKELETAL: No joint swelling or deformity. EXTREMITIES: No cyanosis, clubbing, or pedal edema. NEUROLOGICAL: Gross neurological examination did not reveal any focal deficits. SKIN: No rashes. LABORATORY DATA: CBC, BMP abnormal for low sodium of 153. Urinary sodium and urinary creatinine are appropriately ( ) by cardiology. BUN of 24, creatinine 1.17. ASSESSMENT AND PLAN: 1. Status post cardiopulmonary arrest for Ventricular tachycardia. Patient has an AICD in place. 2. Severe ischemic cardiomyopathy, congestive heart failure secondary to that. 3. Congestive heart failure secondary to that although patient is not in over exacerbation. 4. Hyponatremia. Patient appears to have hypovolemic hyponatremia. Lasix is being held at this point of time and patient is being started on IV fluids, but we have got to be careful, we should be careful with IV fluids as patient has very poor cardiac function. 5. Hyperkalemia due to acute renal failure and losartan. Losartan will be temporarily held. 6. Depression. 7. Diabetes mellitus type 2.
[2016-10-06 20:52] LABS: Glucose,Whole Blood 268 mg/dL (75-99)
[2016-10-06] MEDS: FAMOTIDINE 20 MG TAB PO SCH (20:53)
[2016-10-06] MEDS: MONTELUKAST 10 MG TAB PO SCH (20:53)
[2016-10-06] MEDS: INSULIN GLARGINE 100 UNIT/ML 10 ML VIAL SQ SCH (20:53)
[2016-10-06] MEDS: FLUoxetine HCL 10 MG CAP PO SCH (20:53)
[2016-10-06] MEDS: ASPIRIN 81 MG CHEW PO SCH (20:53)
[2016-10-06] MEDS: ALLOPURINOL 300 MG TAB PO SCH (20:53)
[2016-10-07] MEDS: HYDROcodone/APAP 5-325MG 1 EACH TAB PO PRN ×5 (04:06→19:57)
[2016-10-07 06:20] LABS: Basophils % (A) 0 %; CHCM 33.2; Eosinophils # (A) 0.2 k/uL (0-0.7); Eosinophils % (A) 4 %; HCT 33.3 % (34.0-46.0); HGB 10.8 gm/dL (11.4-16.0); Luc # (Auto) 0.15; Luc % (Auto) 2; Lymphocytes # (A) 0.8 k/uL (1.0-4.8); Lymphocytes % (A) 11 %; MCH 31.5 pg (25.0-35.0); MCHC 32.4 g/dL (31.0-37.0); Mean Platelet Volume 7.2; Monocytes # (A) 0.5 k/uL (0-1.0); Monocytes % (A) 7 %; Neutrophils # (A) 5.2 k/uL (1.3-7.7); Neutrophils % (A) 76 %; RBC 3.43 m/uL (3.80-5.40); WBC 6.8 k/uL (3.8-10.6); WBC (Perox) 7.38
[2016-10-07] MEDS: SODIUM CHLORIDE 0.9% 1,000 ML IV SCH ×3 (06:28→14:45)
[2016-10-07 06:29] LABS: Glucose,Whole Blood 181 mg/dL (75-99)
[2016-10-07 06:30] LABS: Anion Gap 10 mmol/L; Blood Urea Nitrogen 19 mg/dL (7-17); Calcium 8.9 mg/dL (8.4-10.2); Carbon Dioxide 19 mmol/L (22-30); Chloride 99 mmol/L (98-107); Glucose 171 mg/dL (74-99); Non-African American GFR(MDRD) 57 (>60 ml/min/1.73 sqM); Potassium 4.6 mmol/L (3.5-5.1); Sodium 128 mmol/L (137-145)
[2016-10-07] MEDS: CARVEDILOL 12.5 MG TAB PO SCH ×2 (07:02→16:55)
[2016-10-07] MEDS: INSULIN LISPRO (humaLOG) 300 UNIT/3 ML VIAL SQ SCH ×7 (07:24→21:12)
[2016-10-07] MEDS: BENZONATATE 100 MG CAP PO SCH (07:33)
[2016-10-07] MEDS: RANOLAZINE 500 MG TAB.ER.12H PO SCH ×2 (07:35→20:01)
[2016-10-07] MEDS: DOCUSATE 100 MG CAP PO SCH ×2 (07:35→19:59)
[2016-10-07] MEDS: ISOSORBIDE MONONITRATE ER 30 MG TAB.ER.24H PO SCH (07:36)
[2016-10-07] MEDS: BECLOMETHASONE DIP 80 MCG/PUFF INHALER INHALATION SCH ×2 (08:26→21:12)
--- NOTE | 2016-10-07 09:06 | XR ---
EXAMINATION TYPE: XR chest 1V DATE OF EXAM: 10/07/2016 7:05 AM COMPARISON: 10/06/2016 INDICATION: Short of breath TECHNIQUE: Single frontal view of the chest is obtained. FINDINGS: The heart size is mildly prominent. Pacemaker overlies left chest. Sternotomy wires are in the midlin e.. The pulmonary vasculature is normal. The lungs are clear. IMPRESSION: 1. Stable cardiomegaly.
[2016-10-07] MEDS: PROMETHAZ-COD 6.25-10 MG/5 ML 5 ML CUP PO PRN ×2 (10:50→15:53)
[2016-10-07] MEDS ORDERED: traMADol 50 MG TAB PO SCH (11:15)
[2016-10-07] MEDS: traMADol 50 MG TAB PO PRN ×3 (11:17→22:05)
[2016-10-07 11:41] LABS: Glucose,Whole Blood 240 mg/dL (75-99)
--- NOTE | 2016-10-07 13:02 | P.PN ---
Subjective Principal diagnosis: Status post cardiac arrest This is a very pleasant 66-year-old female patient who follows with Dr. Christian as her primary care physician. She has a history of coronary artery disease, previous [place] 3 with previous coronary artery bypass grafting, hyperlipidemia, hypertension, diabetes mellitus, asthma. She is maintained on Singulair, Qvar, albuterol. She is a lifelong nonsmoker. She presented here to the hospitalization visitor planning to attend diabetic education classes when she arrested in the elevator. CPR was initiated, she was found to be in ventricular fibrillation and received 1 shock with return of spontaneous circulation. She was intubated and placed on the mechanical ventilator and initially seen in the emergency room. Prior to being admitted to the intensive care unit she was extubated and stable. She is seen today in consultation. Currently she is awake and alert in no acute distress. She is x-ray sitting up in the chair at the bedside. She denies any shortness of breath, cough or congestion. She has significant chest wall pain secondary to CPR otherwise no complaints of palpitations lightheadedness or dizziness. Her echocardiogram revealed moderate to severe aortic stenosis, mild pulmonary hypertension and severely impaired left ventricular systolic function with estimated ejection fraction between 25 and 30%. The plan is for AICD insertion tomorrow. Presently she is maintaining good O2 saturations in the upper 90s on 3 L/m per nasal cannula. She has been hemodynamically stable. Not on any pressors. No further ventricular arrhythmias. Patient was seen today on 10/05/2016, she is doing well, she is asymptomatic, patient underwent implantation of single-chamber AICD by cardiology, and her postoperative course seems to be quite uneventful. Patient is asymptomatic, she is hemodynamically stable, and she is doing quite well. Hence I will likely arrange for the patient to be transferred to a cardiac floor/monitored bed. Reevaluated on 10/06/2016, patient is doing extremely well, she has a minimal dry hacking cough, and she has some soreness from CPR and defibrillation on her anterior chest wall. Otherwise the patient is asymptomatic, and no major issues overnight, no major cardiac arrhythmias and no hemodynamic instability. Labs were reviewed, her sodium seems to be quite low at 123. Her chest x-ray shows no evidence of congestive heart failure and no infiltrates. Renal functioning is about the same with a BUN of 24 creatinine of 1.17 but for some reason the patient has a hyponatremic and hyperkalemic picture hence I would recommend a serum cortisol level, in the meantime increase her IV fluid cautiously to 70 mL/h using 0.9 normal saline. Reevaluated today on 10/07/2016, patient continues to cough, continues to have significant pain over her anterior chest wall which is clearly musculoskeletal and reproducible with exquisite tenderness over the left parasternal area on palpation. Patient felt that Ultram was doing her more good than any other medication for pain. Hence we'll make sure that she is given Ultram. Her chest x-ray showed no evidence of congestive heart failure, however I recommended x-rays of ribs to evaluate the TIPS was orally. Sodium seems to be improving with slow hydration. However because of her LV dysfunction, I discontinued her IV fluid fearing the fact that the patient may go into congestive heart failure. Chest x-ray at least is showing no evidence of congestive heart failure so far. Patient seems to be concerned about her pain and her intermittent cough and some wheezing. Her sodium seems to be improving with slow hydration, patient clearly had a hyposmolar hyponatremia I believe is mostly hypovolemic. And related to diuretics. Objective - Vital Signs Vital signs: Vital Signs Temp 96.8 F L 10/07/16 07:37 Pulse 63 10/07/16 07:37 Resp 18 10/07/16 07:37 BP 143/77 10/07/16 07:37 Pulse Ox 97 10/07/16 07:37 Intake & Output 10/06/16 10/07/16 10/07/16 18:59 06:59 18:59 Intake Total 230 1050 240 Output Total 400 500 Balance -170 550 240 Weight 95.1 kg Intake: IV 1050 Sodium Chloride 0.9% 1, 1050 000 ml @ 50 mls/hr IV . Q20H CORIE Rx#:[id number] Intake, IV Titration 50 Amount Clindamycin 900 mg In 50 Dextrose 5% in Water 50 ml @ 100 mls/hr IVPB Q6H CORIE Rx#:[id number] Oral 180 240 Output: Urine 400 500 Other: Voiding Method Toilet Toilet # Voids 0 0 # Bowel Movements 0 3 - Exam GENERAL EXAM: Obese. Alert, comfortable in no apparent distress. HEAD: Normocephalic. EYES: Normal reaction of pupils, equal size. NOSE: Clear with pink turbinates. THROAT: No erythema or exudates. NECK: No masses, no JVD. CHEST: No chest wall deformity. LUNGS: Equal air entry with no wheeze, rhonchi noted bilaterally CVS: S1 and S2 normal with audible systolic murmur, regular rhythm. ABDOMEN: No hepatosplenomegaly, normal bowel sounds, no guarding or rigidity. SPINE: No scoliosis or deformity SKIN: No rashes CENTRAL NERVOUS SYSTEM: No focal deficits, tone is normal in all 4 extremities. Extremities: There is no significant peripheral edema. No clubbing, no cyanosis. Peripheral pulses are intact. - Labs CBC & Chem 7: 10/07/16 05:41 10/07/16 05:41 Labs: Abnormal Lab Results - Last 24 Hours (Table) 10/06/16 10/06/16 10/06/16 Range/Units 17:07 18:50 20:49 RBC (3.80-5.40) m/uL Hgb (11.4-16.0) gm/dL Hct (34.0-46.0) % Lymphocytes # (1.0-4.8) k/uL Sodium (137-145) mmol/L Carbon Dioxide (22-30) mmol/L BUN (7-17) mg/dL Glucose (74-99) mg/dL POC Glucose (mg/dL) 175 H 268 H (75-99) mg/dL Ur Random Sodium 7 L (30-90) mmol/L 10/07/16 10/07/16 10/07/16 Range/Units 05:41 05:41 06:25 RBC 3.43 L (3.80-5.40) m/uL Hgb 10.8 L (11.4-16.0) gm/dL Hct 33.3 L (34.0-46.0) % Lymphocytes # 0.8 L (1.0-4.8) k/uL Sodium 128 L (137-145) mmol/L Carbon Dioxide 19 L (22-30) mmol/L BUN 19 H (7-17) mg/dL Glucose 171 H (74-99) mg/dL POC Glucose (mg/dL) 181 H (75-99) mg/dL Ur Random Sodium (30-90) mmol/L 10/07/16 Range/Units 11:39 RBC (3.80-5.40) m/uL Hgb (11.4-16.0) gm/dL Hct (34.0-46.0) % Lymphocytes # (1.0-4.8) k/uL Sodium (137-145) mmol/L Carbon Dioxide (22-30) mmol/L BUN (7-17) mg/dL Glucose (74-99) mg/dL POC Glucose (mg/dL) 240 H (75-99) mg/dL Ur Random Sodium (30-90) mmol/L Assessment and Plan Plan: #1 Cardiac arrest secondary to ventricular fibrillation, status post defibrillation 1 and CPR with spontaneous return of circulation. #2 Acute hypoxic respiratory failure secondary to above requiring brief intubation mechanical ventilatory support, recovered. #3 Known history of coronary artery disease with previous stent placement and coronary artery bypass grafting. #4 Ischemic cardiomyopathy with significant global hypokinesia and with severely impaired left ventricular systolic function. Estimated ejection fraction 25-30%. #5 Severe aortic stenosis. #6Diabetes mellitus, type II. #7 History of asthma. #8 Hypertension. #9 Hyperlipidemia. #10 Obesity. #11 status post implantation of a single-chamber AICD, postoperative day # 2 #12 acute hyponatremia most likely related to hypovolemia, improving with slow hydration. However because of the patient's history of LV dysfunction, and because of her persistent symptoms of cough, IV fluids will need to be cut to KVO, and monitor electrolytes closely. #13 suspected rib fractures on the left side,, x-rays of the ribs were ordered to be done today. We'll continue to follow. Time with Patient: Less than 30
--- NOTE | 2016-10-07 14:15 | XR ---
EXAMINATION TYPE: XR ribs bilateral DATE OF EXAM ORDERED: 10/07/2016 2:01 PM HISTORY: s/p cpr r/o broken ribs left/clinically. COMPARISON: Chest x-ray of earlier today. FINDINGS: There is a unipolar pacemaking device in place on the left. There has been a midline ribeiro otomy. There is a right shoulder prosthesis in place. The heart is enlarged. No displaced rib fracture is seen. There is no evidence of pneumothorax. IMPRESSION: I DO NOT SEE EVIDENCE FOR DISPLACED RIB FRACTURE AT THIS TIME.
--- NOTE | 2016-10-07 14:19 | P.PN ---
Subjective Principal diagnosis: Cardiac arrest This is a pleasant 66-year-old female with known history of coronary artery disease and prior bypass surgery in 2012 at which time she underwent ADAM to the LAD, saphenous vein graft to the diagonal 1, saphenous vein graft to the OM1 and saphenous vein graft to the PDA, prior to that patient did have a stent to the RCA as well as the LAD. Most recent cardiac catheterization was performed in June of last year which revealed 2 patent grafts, patent ADAM to the LAD and patent saphenous vein graft to the PDA, 100% vein graft to the OM right dominant. Most recent echocardiogram with Doppler study was performed in August of last year which revealed an ejection fraction of 40% with moderately dilated left atrium, abnormal trileaflet aortic valve with mild aortic regurg. The aortic valve was calcified. Mild to moderate mitral regurg at that time. Patient also has history of diabetes, hypertension, hyperlipidemia, family history of premature coronary artery disease. Patient is status post cardiac arrest, for ventricular fibrillation. Patient underwent implantation of AICD, device was interrogated yesterday and is functioning appropriately. Chest x-ray performed today revealed stable findings. Patient states she has a mild cough, chest wall hurts significantly with coughing. Sodium today 128. BUN 19, creatinine 0.9. Objective - Vital Signs Vital signs: Vital Signs Temp 97.0 F L 10/07/16 12:45 Pulse 62 10/07/16 12:45 Resp 18 10/07/16 12:45 BP 138/75 10/07/16 12:45 Pulse Ox 98 10/07/16 12:45 Intake & Output 10/06/16 10/07/16 10/07/16 18:59 06:59 18:59 Intake Total 230 1050 240 Output Total 400 500 Balance -170 550 240 Weight 95.1 kg Intake: IV 1050 Sodium Chloride 0.9% 1, 1050 000 ml @ 50 mls/hr IV . Q20H CORIE Rx#:[id number] Intake, IV Titration 50 Amount Clindamycin 900 mg In 50 Dextrose 5% in Water 50 ml @ 100 mls/hr IVPB Q6H CORIE Rx#:[id number] Oral 180 240 Output: Urine 400 500 Other: Voiding Method Toilet Toilet # Voids 0 0 1 # Bowel Movements 0 3 - Exam PHYSICAL EXAMINATION: HEENT: Head is atraumatic, normocephalic. Pupils equal, round. Neck is supple. There is no elevated jugular venous pressure. HEART EXAMINATION: R S1 and S2 1 systolic ejection murmur is heard. Site of device implantation dressing is dry and intact. CHEST EXAMINATION: Lungs reveal scattered wheezes with crackles bilaterally ABDOMEN: Soft, nontender. Bowel sounds are heard. No organomegaly noted. EXTREMITIES: 2+ peripheral pulses with trace evidence of peripheral edema and no calf tenderness noted. NEUROLOGIC patient is awake, alert and oriented -3. . - Labs CBC & Chem 7: 10/07/16 05:41 10/07/16 05:41 Labs: Abnormal Lab Results - Last 24 Hours (Table) 10/06/16 10/06/16 10/06/16 Range/Units 17:07 18:50 20:49 RBC (3.80-5.40) m/uL Hgb (11.4-16.0) gm/dL Hct (34.0-46.0) % Lymphocytes # (1.0-4.8) k/uL Sodium (137-145) mmol/L Carbon Dioxide (22-30) mmol/L BUN (7-17) mg/dL Glucose (74-99) mg/dL POC Glucose (mg/dL) 175 H 268 H (75-99) mg/dL Ur Random Sodium 7 L (30-90) mmol/L 10/07/16 10/07/16 10/07/16 Range/Units 05:41 05:41 06:25 RBC 3.43 L (3.80-5.40) m/uL Hgb 10.8 L (11.4-16.0) gm/dL Hct 33.3 L (34.0-46.0) % Lymphocytes # 0.8 L (1.0-4.8) k/uL Sodium 128 L (137-145) mmol/L Carbon Dioxide 19 L (22-30) mmol/L BUN 19 H (7-17) mg/dL Glucose 171 H (74-99) mg/dL POC Glucose (mg/dL) 181 H (75-99) mg/dL Ur Random Sodium (30-90) mmol/L 10/07/16 Range/Units 11:39 RBC (3.80-5.40) m/uL Hgb (11.4-16.0) gm/dL Hct (34.0-46.0) % Lymphocytes # (1.0-4.8) k/uL Sodium (137-145) mmol/L Carbon Dioxide (22-30) mmol/L BUN (7-17) mg/dL Glucose (74-99) mg/dL POC Glucose (mg/dL) 240 H (75-99) mg/dL Ur Random Sodium (30-90) mmol/L Assessment and Plan Plan: Assessment and plan #1 cardiac arrest exact etiology yet undetermined. Patient was noted to have ventricular fibrillation requiring defibrillation. Status post implantation of AICD Currently in normal sinus rhythm. #2 known history of coronary artery disease with prior stent placement and bypass surgery, most recent cardiac catheterization performed in June of last year which revealed 2 patent grafts, patent ADAM to the LAD, patent vein graft to the PDA, 100% vein graft to the OM. Medical therapy advised at that time. #3 hypertension #4 diabetes, #5 hyperlipidemia #6 hypertension #7 family history of premature coronary artery disease #8 hyponatremia, of unknown etiology. Urine random sodium 7, urine osmolality to 29. Plan We will give the patient 20 mg of IV Lasix now and twice a day. Check BNP level. DNP note has been reviewed, I agree with a documented findings and plan of care. Patient was seen and examined.
[2016-10-07] MEDS: MORPHINE SULFATE 4 MG/ML SYRINGE IVP PRN ×3 (14:46→23:11)
--- NOTE | 2016-10-07 16:47 | PN ---
Patient is admitted with V. tach, status post cardiopulmonary arrest and AICD placement. Patient has 25% ejection fraction. Patient is hypovolemic hyponatremia, improved with IV fluids which are being discontinued at this point of time because of poor ejection fraction. Patient is off losartan and patient's potassium improved with Kayexalate. REVIEW OF SYSTEMS: PULMONARY: Patient is complaining of more chest pain as she is coughing and patient has a little bit of minimal expiratory wheeze on exam. CARDIOVASCULAR: No chest pain, no orthopnea, no PND, no palpitations. GASTROINTESTINAL: No diarrhea, nausea or vomiting. No abdominal pain. Normoactive bowel sounds. NEUROLOGIC: No headaches, no weakness, no numbness. Medications were reviewed. PHYSICAL EXAMINATION: Temperature 97.0, pulse of 62, respiratory rate of 18, blood pressure 138/75, saturating at 98% on room air. GENERAL: The patient is alert and oriented x3, not in any acute distress. Well developed, well nourished. HEENT: Pupils are round and equally reacting to light. EOMI. No scleral icterus. No conjunctival pallor. Normocephalic, atraumatic. No pharyngeal erythema. No thyromegaly. CARDIOVASCULAR: S1 and S2 present. No murmurs, rubs, or gallops. PULMONARY: Chest is clear to auscultation, no wheezing or crackles. ABDOMEN: Soft, nontender, nondistended, normoactive bowel sounds. No palpable organomegaly. MUSCULOSKELETAL: No joint swelling or deformity. EXTREMITIES: No cyanosis, clubbing, or pedal edema. NEUROLOGICAL: Gross neurological examination did not reveal any focal deficits. SKIN: No rashes. LABORATORY DATA: Chest x-ray not showing any more congestion. Patient urinary sodium is definitely low at 7, consistent with hypovolemic hyponatremia. Urine osmolarity is 238. ASSESSMENT AND PLAN: 1. Status post cardiopulmonary arrest and ventricular tachycardia and patient is on Baltazar inhibitors. 2. Ischemic cardiomyopathy without any heart failure exacerbation at this point of time. 3. Hypovolemic hyponatremia, improved with IV fluids. Patient has chronic systolic dysfunction; ejection fraction of 25%. 4. Hyperkalemia, losartan is being held. 5. Depression. 6. Type 2 diabetes mellitus.
[2016-10-07] MEDS: LISINOPRIL 2.5 MG TAB PO SCH (16:53)
[2016-10-07] MEDS: FUROSEMIDE 10 MG/ML 2 ML VIAL IV SCH ×2 (16:53→20:00)
[2016-10-07 16:57] LABS: Glucose,Whole Blood 141 mg/dL (75-99)
[2016-10-07] MEDS: guaiFENesin 600 MG TABLET.ER PO SCH (18:36)
[2016-10-07] MEDS: ASPIRIN 81 MG CHEW PO SCH (19:59)
[2016-10-07] MEDS: ALLOPURINOL 300 MG TAB PO SCH (19:59)
[2016-10-07] MEDS: FAMOTIDINE 20 MG TAB PO SCH (19:59)
[2016-10-07] MEDS: FLUoxetine HCL 10 MG CAP PO SCH (19:59)
[2016-10-07] MEDS: MONTELUKAST 10 MG TAB PO SCH (20:01)
[2016-10-07 20:52] LABS: Glucose,Whole Blood 168 mg/dL (75-99)
[2016-10-07] MEDS ORDERED: guaiFENesin 600 MG TABLET.ER PO SCH (21:00)
[2016-10-07] MEDS: INSULIN GLARGINE 100 UNIT/ML 10 ML VIAL SQ SCH (21:13)
[2016-10-07] MEDS: CRESTOR 5 MG PO SCH (22:08)
[2016-10-07] MEDS: BENZOCAINE/MENTHOL LOZENG 1 EACH LOZENGE MUCOUS MEM PRN (22:23)
[2016-10-08] MEDS: HYDROcodone/APAP 5-325MG 1 EACH TAB PO PRN ×4 (03:53→21:24)
[2016-10-08] MEDS: MORPHINE SULFATE 4 MG/ML SYRINGE IVP PRN ×4 (03:53→20:05)
[2016-10-08] MEDS: traMADol 50 MG TAB PO PRN ×4 (04:01→23:32)
[2016-10-08] MEDS: BENZOCAINE/MENTHOL LOZENG 1 EACH LOZENGE MUCOUS MEM PRN (04:02)
[2016-10-08 06:34] LABS: Glucose,Whole Blood 122 mg/dL (75-99)
[2016-10-08] MEDS: INSULIN LISPRO (humaLOG) 300 UNIT/3 ML VIAL SQ SCH ×7 (06:35→21:24)
[2016-10-08] MEDS: CARVEDILOL 12.5 MG TAB PO SCH ×2 (07:06→17:07)
[2016-10-08] MEDS: BECLOMETHASONE DIP 80 MCG/PUFF INHALER INHALATION SCH (07:15)
[2016-10-08 07:22] LABS: Basophils # (A) 0.1 k/uL (0-0.2); Basophils % (A) 1 %; CH 32.2; CHCM 34.3; Eosinophils # (A) 0.4 k/uL (0-0.7); Eosinophils % (A) 4 %; HCT 32.9 % (34.0-46.0); HDW 2.76; HGB 11.1 gm/dL (11.4-16.0); Luc # (Auto) 0.21; Luc % (Auto) 2; Lymphocytes # (A) 1.2 k/uL (1.0-4.8); Lymphocytes % (A) 14 %; MCH 31.7 pg (25.0-35.0); MCHC 33.6 g/dL (31.0-37.0); MCV 94.3 fL (80.0-100.0); Mean Platelet Volume 8.3; Monocytes # (A) 0.6 k/uL (0-1.0); Monocytes % (A) 7 %; Neutrophils # (A) 6.2 k/uL (1.3-7.7); Neutrophils % (A) 72 %; RBC 3.49 m/uL (3.80-5.40); RDW 15.1 % (11.5-15.5); WBC 8.7 k/uL (3.8-10.6); WBC (Perox) 8.53
[2016-10-08] MEDS: PROMETHAZ-COD 6.25-10 MG/5 ML 5 ML CUP PO PRN ×2 (08:26→15:44)
[2016-10-08] MEDS: RANOLAZINE 500 MG TAB.ER.12H PO SCH (09:19)
[2016-10-08] MEDS: guaiFENesin 600 MG TABLET.ER PO SCH ×2 (09:19→20:08)
[2016-10-08] MEDS: LISINOPRIL 2.5 MG TAB PO SCH (09:19)
[2016-10-08] MEDS: ISOSORBIDE MONONITRATE ER 30 MG TAB.ER.24H PO SCH (09:19)
[2016-10-08] MEDS: DOCUSATE 100 MG CAP PO SCH ×2 (09:20→20:07)
[2016-10-08] MEDS: FUROSEMIDE 10 MG/ML 2 ML VIAL IV SCH (09:20)
[2016-10-08 11:51] LABS: Glucose,Whole Blood 221 mg/dL (75-99)
[2016-10-08 12:09] LABS: Calcium 9.3 mg/dL (8.4-10.2); Potassium 4.8 mmol/L (3.5-5.1)
--- NOTE | 2016-10-08 14:19 | P.PN ---
Subjective Progress note dated 10/08/2016 This is a patient who had an in-hospital cardiopulmonary arrest. She was resuscitated. Doing relatively well. She continues to have pain over the anterior chest proper, likely related to the cardiopulmonary resuscitation. Still coughing. Not bringing up any phlegm. No fever no chills. Overall the patient's condition has improved. Her hemodynamic status is stable. Respiratory status is stable. Objective - Vital Signs Vital signs: Vital Signs Temp 97.1 F L 10/08/16 12:00 Pulse 58 L 10/08/16 12:00 Resp 18 10/08/16 12:00 BP 94/52 10/08/16 12:00 Pulse Ox 96 10/08/16 12:00 Intake & Output 10/07/16 10/08/16 10/08/16 18:59 06:59 18:59 Intake Total 573 360 120 Balance 573 360 120 Weight 96.1 kg Intake: IV 120 Sodium Chloride 0.9% 1, 120 000 ml @ 50 mls/hr IV . Q20H CORIE Rx#:[id number] Intake, IV Titration 360 Amount Sodium Chloride 0.9% 1, 160 000 ml @ 20 mls/hr IV . Q24H CORIE Rx#:[id number] Sodium Chloride 0.9% 1, 200 000 ml @ 50 mls/hr IV . Q20H CORIE Rx#:[id number] Oral 573 Other: # Voids 1 1 - Exam No acute distress, oriented 3. HEENT examination is grossly unremarkable. Mixed membranes are moist. No oral lesions. Neck supple. Full range of motion. No adenopathy or thyromegaly. Cardiovascular examination reveals regular rhythm rate. S1 and S2 normal. No S3-S4. Lungs reveal some coarse rhonchi. Breath sounds are diminished. This prolongation. Abdomen soft Extremities are intact. - Labs CBC & Chem 7: 10/08/16 06:45 10/08/16 06:45 Labs: Abnormal Lab Results - Last 24 Hours (Table) 10/07/16 10/07/16 10/08/16 Range/Units 16:54 20:39 06:23 RBC (3.80-5.40) m/uL Hgb (11.4-16.0) gm/dL Hct (34.0-46.0) % Sodium (137-145) mmol/L Carbon Dioxide (22-30) mmol/L BUN (7-17) mg/dL Creatinine (0.52-1.04) mg/dL Glucose (74-99) mg/dL POC Glucose (mg/dL) 141 H 168 H 122 H (75-99) mg/dL 10/08/16 10/08/16 10/08/16 Range/Units 06:45 06:45 11:45 RBC 3.49 L (3.80-5.40) m/uL Hgb 11.1 L (11.4-16.0) gm/dL Hct 32.9 L (34.0-46.0) % Sodium 129 L (137-145) mmol/L Carbon Dioxide 17 L (22-30) mmol/L BUN 24 H (7-17) mg/dL Creatinine 1.46 H (0.52-1.04) mg/dL Glucose 117 H (74-99) mg/dL POC Glucose (mg/dL) 221 H (75-99) mg/dL Assessment and Plan (1) Cardiac arrest Status: Acute (2) Ventricular fibrillation Status: Acute (3) Congestive heart failure (CHF) Status: Acute (4) Diabetes Status: Acute (5) Exertional shortness of breath Status: Acute (6) Hyperlipemia Status: Acute (7) S/P cardiac cath Status: Acute Plan: Plan The patient's doing well. We'll continue to follow. No additional recommendations are made. Hemodynamic and respiratory status seems stable. Time with Patient: Less than 30
--- NOTE | 2016-10-08 15:14 | PN ---
DATE OF ADMISSION: 10/03/2016 DATE OF DISCHARGE: Patient is admitted with V. tach and patient had a cardiopulmonary arrest and patient had AICD placement. Patient's ejection fraction is 25%. Patient was started on lisinopril and Lasix with worsening creatinine because of which I am discontinuing Lasix at this point of time. Lisinopril will be continued, will monitor the kidney function, if it continues to worsen, we need to discontinue that as well if patient becomes hyperkalemic that needs to be discontinued as mentioned above. Patient is still complaining of chest pain from CPR. REVIEW OF SYSTEMS: CARDIOVASCULAR: No chest pain, no orthopnea, no PND, no palpitations. PULMONARY: As mentioned above. GASTROINTESTINAL: No diarrhea, nausea or vomiting. No abdominal pain. Normoactive bowel sounds. NEUROLOGIC: No headaches, no weakness, no numbness. Medications were reviewed. VITAL SIGNS: Temperature 97.9, pulse of 58, respiratory rate of 18, blood pressure 94/52, saturating at 96% on room air on. RESPIRATORY EXAMINATION: Rhonchus breath sounds bilaterally. No wheezing was appreciated. Fairly good air entry to bilateral lung alvarez. HEENT: Pupils are round and equally reacting to light. EOMI. No scleral icterus. No conjunctival pallor. Normocephalic, atraumatic. No pharyngeal erythema. No thyromegaly. CARDIOVASCULAR: S1 and S2 present. No murmurs, rubs, or gallops. ABDOMEN: Soft, nontender, nondistended, normoactive bowel sounds. No palpable organomegaly. MUSCULOSKELETAL: No joint swelling or deformity. EXTREMITIES: No cyanosis, clubbing, or pedal edema. NEUROLOGICAL: Gross neurological examination did not reveal any focal deficits. SKIN: No rashes. LABORATORY DATA: CBC, CMP are abnormal for low sodium of 129 which is actually better than yesterday. BUN has gone up to 24, creatinine has gone up to 1.46 from 0.98. ASSESSMENT AND PLAN: 1. Status post cardiopulmonary arrest and ventricular tachycardia. Patient has an AICD in place. 2. Ischemic cardiomyopathy without any signs or symptoms of congestive heart failure. Patient received IV Lasix because of which his kidney function worsened. Will continue with lisinopril but discontinue Lasix. 3. Hypovolemic hyponatremia, improved with IV fluids and patient received Lasix yesterday which is being discontinued at this point of time. 4. Chronic systolic dysfunction without any acute exacerbation. Patient is fairly euvolemic. 5. Depression. 6. Type 2 diabetes mellitus. 7. Chest wall pain secondary to CPR. Will continue to monitor vitals and monitor kidney function. If everything is okay, patient probably will be discharged tomorrow. Patient's blood pressure is low because of IV Lasix she was receiving and she was started on lisinopril for cardiomyopathy.
--- NOTE | 2016-10-08 15:24 | P.PN ---
Subjective Principal diagnosis: Cardiac arrest This is a pleasant 66-year-old female with known history of coronary artery disease and prior bypass surgery in 2012 at which time she underwent ADAM to the LAD, saphenous vein graft to the diagonal 1, saphenous vein graft to the OM1 and saphenous vein graft to the PDA, prior to that patient did have a stent to the RCA as well as the LAD. Most recent cardiac catheterization was performed in June of last year which revealed 2 patent grafts, patent ADAM to the LAD and patent saphenous vein graft to the PDA, 100% vein graft to the OM right dominant. Most recent echocardiogram with Doppler study was performed in August of last year which revealed an ejection fraction of 40% with moderately dilated left atrium, abnormal trileaflet aortic valve with mild aortic regurg. The aortic valve was calcified. Mild to moderate mitral regurg at that time. Patient also has history of diabetes, hypertension, hyperlipidemia, family history of premature coronary artery disease. Patient is status post cardiac arrest, for ventricular fibrillation. Patient underwent implantation of AICD, device was interrogated, and is functioning appropriately. History patient was given 2 doses of IV Lasix. BUN today 24, creatinine 1.4, sodium 129. Her main complaint today is chest wall pain. She seems to be coughing up a little bit of phlegm today, Objective - Vital Signs Vital signs: Vital Signs Temp 97.1 F L 10/08/16 12:00 Pulse 58 L 10/08/16 12:00 Resp 18 10/08/16 12:00 BP 94/52 10/08/16 12:00 Pulse Ox 96 10/08/16 12:00 Intake & Output 10/07/16 10/08/16 10/08/16 18:59 06:59 18:59 Intake Total 573 360 120 Balance 573 360 120 Weight 96.1 kg Intake: IV 120 Sodium Chloride 0.9% 1, 120 000 ml @ 50 mls/hr IV . Q20H CORIE Rx#:[id number] Intake, IV Titration 360 Amount Sodium Chloride 0.9% 1, 160 000 ml @ 20 mls/hr IV . Q24H CORIE Rx#:[id number] Sodium Chloride 0.9% 1, 200 000 ml @ 50 mls/hr IV . Q20H CORIE Rx#:[id number] Oral 573 Other: # Voids 1 1 - Exam PHYSICAL EXAMINATION: HEENT: Head is atraumatic, normocephalic. Pupils equal, round. Neck is supple. There is no elevated jugular venous pressure. HEART EXAMINATION: R S1 and S2 1 systolic ejection murmur is heard. Site of device implantation dressing is dry and intact. CHEST EXAMINATION: Lungs reveal bilateral coarse rhonchi ABDOMEN: Soft, nontender. Bowel sounds are heard. No organomegaly noted. EXTREMITIES: 2+ peripheral pulses with trace evidence of peripheral edema and no calf tenderness noted. NEUROLOGIC patient is awake, alert and oriented -3. . - Labs CBC & Chem 7: 10/08/16 06:45 10/08/16 06:45 Labs: Abnormal Lab Results - Last 24 Hours (Table) 10/07/16 10/07/16 10/08/16 Range/Units 16:54 20:39 06:23 RBC (3.80-5.40) m/uL Hgb (11.4-16.0) gm/dL Hct (34.0-46.0) % Sodium (137-145) mmol/L Carbon Dioxide (22-30) mmol/L BUN (7-17) mg/dL Creatinine (0.52-1.04) mg/dL Glucose (74-99) mg/dL POC Glucose (mg/dL) 141 H 168 H 122 H (75-99) mg/dL 10/08/16 10/08/16 10/08/16 Range/Units 06:45 06:45 11:45 RBC 3.49 L (3.80-5.40) m/uL Hgb 11.1 L (11.4-16.0) gm/dL Hct 32.9 L (34.0-46.0) % Sodium 129 L (137-145) mmol/L Carbon Dioxide 17 L (22-30) mmol/L BUN 24 H (7-17) mg/dL Creatinine 1.46 H (0.52-1.04) mg/dL Glucose 117 H (74-99) mg/dL POC Glucose (mg/dL) 221 H (75-99) mg/dL Assessment and Plan Plan: Assessment and plan #1 cardiac arrest exact etiology yet undetermined. Patient was noted to have ventricular fibrillation requiring defibrillation. Status post implantation of AICD Currently in normal sinus rhythm. #2 known history of coronary artery disease with prior stent placement and bypass surgery, most recent cardiac catheterization performed in June of last year which revealed 2 patent grafts, patent ADAM to the LAD, patent vein graft to the PDA, 100% vein graft to the OM. Medical therapy advised at that time. #3 hypertension #4 diabetes, #5 hyperlipidemia #6 hypertension #7 family history of premature coronary artery disease #8 hyponatremia, of unknown etiology. Plan Lasix and KYLEE inhibitor have been placed on hold today. We will check lytes BUN and creatinine in the morning tomorrow. DNP note has been reviewed, I agree with a documented findings and plan of care. Patient was seen and examined.
[2016-10-08] MEDS: SODIUM CHLORIDE 0.9% 1,000 ML IV SCH (15:35)
[2016-10-08 16:53] LABS: Glucose,Whole Blood 141 mg/dL (75-99)
[2016-10-08] MEDS: ASPIRIN 81 MG CHEW PO SCH (20:06)
[2016-10-08] MEDS: ALLOPURINOL 300 MG TAB PO SCH (20:06)
[2016-10-08] MEDS: MONTELUKAST 10 MG TAB PO SCH (20:07)
[2016-10-08] MEDS: FAMOTIDINE 20 MG TAB PO SCH (20:07)
[2016-10-08] MEDS: FLUoxetine HCL 10 MG CAP PO SCH (20:08)
[2016-10-08] MEDS: BUDESONIDE 0.5 MG/2 ML NEBU INHALATION SCH (20:13)
[2016-10-08] MEDS: IPRATROPIUM-ALBUTEROL 3 ML NEB INHALATION SCH (20:13)
[2016-10-08 20:32] LABS: Glucose,Whole Blood 138 mg/dL (75-99)
[2016-10-08] MEDS: INSULIN GLARGINE 100 UNIT/ML 10 ML VIAL SQ SCH (21:24)
--- NOTE | 2016-10-08 22:30 | PN ---
This patient has ischemic cardiomyopathy with severely impaired left ventricular systolic function and moderate degree of aortic stenosis. The patient is not feeling well. She is having some pain in the chest and she continues to feel a little bit short of breath. Patient's blood pressure is 100/68 mmHg. First and second heart sounds are normal. Lung examination reveals bilateral wheezing. This patient's creatinine has increased to 1.46. Electrolytes show sodium of 129. FINAL IMPRESSION: This patient continues to have wheezing which could represent evidence of heart failure. Patient has severely impaired left ventricular systolic function. It is not unusual to see some rise in the creatinine when the patient is started on KYLEE and diuretics, but usually it stabilizes after 72 to 96 hours. Patient has a history of recurrent heart failure in the past and she needs to be on diuretic. I will recheck the creatinine tomorrow, and if the creatinine is stable, we will restart her on the Lasix and I will continue the lisinopril at present.
[2016-10-09] MEDS: MORPHINE SULFATE 4 MG/ML SYRINGE IVP PRN (00:32)
[2016-10-09] MEDS: HYDROcodone/APAP 5-325MG 1 EACH TAB PO PRN ×5 (02:51→23:20)
[2016-10-09 05:50] LABS: Glucose,Whole Blood 110 mg/dL (75-99)
[2016-10-09 06:44] LABS: Calcium 9.1 mg/dL (8.4-10.2); Potassium 4.8 mmol/L (3.5-5.1)
[2016-10-09] MEDS: INSULIN LISPRO (humaLOG) 300 UNIT/3 ML VIAL SQ SCH ×7 (07:09→23:19)
[2016-10-09] MEDS: traMADol 50 MG TAB PO PRN ×3 (07:10→21:45)
[2016-10-09] MEDS: CARVEDILOL 12.5 MG TAB PO SCH ×2 (07:10→16:40)
[2016-10-09] MEDS: IPRATROPIUM-ALBUTEROL 3 ML NEB INHALATION SCH ×3 (08:29→21:04)
[2016-10-09] MEDS: BUDESONIDE 0.5 MG/2 ML NEBU INHALATION SCH ×2 (08:29→21:04)
[2016-10-09] MEDS: ISOSORBIDE MONONITRATE ER 30 MG TAB.ER.24H PO SCH (08:47)
[2016-10-09] MEDS: guaiFENesin 600 MG TABLET.ER PO SCH ×2 (08:47→21:53)
[2016-10-09] MEDS: LISINOPRIL 2.5 MG TAB PO SCH (08:47)
[2016-10-09] MEDS: DOCUSATE 100 MG CAP PO SCH ×2 (08:47→21:52)
[2016-10-09] MEDS ORDERED: FUROSEMIDE 10 MG/ML 4 ML VIAL IV STA (10:01)
[2016-10-09] MEDS: PROMETHAZ-COD 6.25-10 MG/5 ML 5 ML CUP PO PRN ×2 (10:47→17:53)
--- NOTE | 2016-10-09 11:51 | ECHOF ---
Referral Reason:aortic gradient MEASUREMENTS -------- HEIGHT: 147.3 cm WEIGHT: 98.0 kg BP: 124/70 MV E Skinny: 0.91 m/s MV DecT: 288 ms MV A Skinny: 0.84 m/s MV E/A Ratio: 1.08 AV maxP.98 mmHg AV meanP.95 mmHg RAP: 5.00 mmHg RVSP: 33.76 mmHg FINDINGS -------- Sinus rhythm. Limited Study Overall left ventricular systolic function is moderate-severely impaired with, an EF between 30 - 35 %. Apical anterior LV wall motion is akinetic. Apical lateral LV wall motion is akinetic. Apical inferior LV wall motion is akinetic. Apical septum LV wall motion is akinetic. Aortic valve is trileaflet and is moderately thickened. There is moderate aortic stenosis present. Peak/mean gradient across the Aortic Valve is 22.98mmHg / 9.95mmHg. Mild mitral regurgitation is present. Mild tricuspid regurgitation present. Right ventricular systolic pressure is normal at < 35 mmHg. Normal inferior vena cava with normal inspiratory collapse consistent with estimated right atrial pressure of 5 mmHg. The pericardium is normal. CONCLUSIONS -------- 1. Sinus rhythm. 2. Peak/mean gradient across the Aortic Valve is 22.98mmHg / 9.95mmHg. 3. Mild mitral regurgitation is present. 4. Mild tricuspid regurgitation present. 5. Right ventricular systolic pressure is normal at < 35 mmHg. 6. Normal inferior vena cava with normal inspiratory collapse consistent with estimated right atrial pressure of 5 mmHg. 7. The pericardium is normal. 8. Limited Study 9. Overall left ventricular systolic function is moderate-severely impaired with, an EF between 30 - 35 %. 10. Apical anterior LV wall motion is akinetic. 11. Apical lateral LV wall motion is akinetic. 12. Apical inferior LV wall motion is akinetic. 13. Apical septum LV wall motion is akinetic. 14. Aortic valve is trileaflet and is moderately thickened. 15. There is moderate aortic stenosis present. PERSONNEL GENERALIST MANAGER: Adia Self RDCS
[2016-10-09 12:12] LABS: Glucose,Whole Blood 127 mg/dL (75-99)
--- NOTE | 2016-10-09 13:23 | XR ---
EXAMINATION TYPE: XR chest 2V DATE OF EXAM: 10/09/2016 1:15 PM COMPARISON: 10/07/2016 INDICATION: Follow-up previous abnormal, pacemaker placement TECHNIQUE: Frontal and lateral views of the chest are obtained. FINDINGS: The heart size is normal. The pulmonary vasculature is normal. The lungs are clear. No focal consolidations are evident. Pacemaker overlies left chest with single lead. Sternotomy wires are present. A lateral projection of minimal posterior costophrenic angle pleu ral effusion is evident. IMPRESSION: 1. Minimal pleural effusion.
--- NOTE | 2016-10-09 14:19 | P.PN ---
Subjective This is a very pleasant 66-year-old female patient who follows with Dr. Christian as her primary care physician. She has a history of coronary artery disease, previous DE 3 with previous coronary artery bypass grafting, hyperlipidemia, hypertension, diabetes mellitus, asthma. She is maintained on Singulair, Qvar, albuterol. She is a lifelong nonsmoker. She presented here to the hospitalization visitor planning to attend diabetic education classes when she arrested in the elevator. CPR was initiated, she was found to be in ventricular fibrillation and received 1 shock with return of spontaneous circulation. She was intubated and placed on the mechanical ventilator and initially seen in the emergency room. Prior to being admitted to the intensive care unit she was extubated and stable. She is seen today in consultation. Currently she is awake and alert in no acute distress. She is x-ray sitting up in the chair at the bedside. She denies any shortness of breath, cough or congestion. She has significant chest wall pain secondary to CPR otherwise no complaints of palpitations lightheadedness or dizziness. Her echocardiogram revealed moderate to severe aortic stenosis, mild pulmonary hypertension and severely impaired left ventricular systolic function with estimated ejection fraction between 25 and 30%. The plan is for AICD insertion tomorrow. Presently she is maintaining good O2 saturations in the upper 90s on 3 L/m per nasal cannula. She has been hemodynamically stable. Not on any pressors. No further ventricular arrhythmias. The patient is seen again today 10/09/2016 in follow-up on the selective care unit. She is awake and alert in no acute distress. She did have some development of cough and congestion. Her chest x-ray showed no acute pulmonary process. There is some minimal pleural effusion. She is doing better today. She denies less cough. She is maintaining good O2 saturations in the mid 90s on room air. She's been afebrile. She's been up with assistance. She denies any chest pain, palpitations lightheadedness or dizziness. Objective - Vital Signs Vital signs: Vital Signs Temp 97.7 F 10/09/16 12:00 Pulse 64 10/09/16 13:56 Resp 18 10/09/16 12:00 BP 97/56 10/09/16 12:00 Pulse Ox 95 10/09/16 12:00 Intake & Output 10/08/16 10/09/16 10/09/16 18:59 06:59 18:59 Intake Total 120 240 Balance 120 240 Weight 98.4 kg Intake: IV 120 Sodium Chloride 0.9% 1, 120 000 ml @ 50 mls/hr IV . Q20H CORIE Rx#:[id number] Intake, IV Titration 60 Amount Sodium Chloride 0.9% 1, 60 000 ml @ 20 mls/hr IV . Q24H CORIE Rx#:[id number] Oral 180 Other: # Voids 1 - Exam GENERAL EXAM: Alert, active, comfortable in no apparent distress. HEAD: Normocephalic. EYES: Normal reaction of pupils, equal size. NOSE: Clear with pink turbinates. THROAT: No erythema or exudates. NECK: No masses, no JVD. CHEST: No chest wall deformity. AICD site clean dry well approximated. LUNGS: Equal air entry with no crackles, wheeze, rhonchi or dullness. CVS: S1 and S2 normal with no audible mumurs, regular rhythm. ABDOMEN: No hepatosplenomegaly, normal bowel sounds, no guarding or rigidity. SPINE: No scoliosis or deformity SKIN: No rashes CENTRAL NERVOUS SYSTEM: No focal deficits, tone is normal in all 4 extremities. Extremities: The left upper extremity is in a sling. No significant peripheral edema. No clubbing, no cyanosis. Peripheral pulses are intact. - Labs CBC & Chem 7: 10/08/16 06:45 10/09/16 06:07 Labs: Abnormal Lab Results - Last 24 Hours (Table) 10/08/16 10/08/16 10/09/16 Range/Units 16:27 20:30 05:48 Sodium (137-145) mmol/L Chloride (98-107) mmol/L BUN (7-17) mg/dL Creatinine (0.52-1.04) mg/dL Glucose (74-99) mg/dL POC Glucose (mg/dL) 141 H 138 H 110 H (75-99) mg/dL Ur Random Sodium (30-90) mmol/L 10/09/16 10/09/16 10/09/16 Range/Units 06:07 12:01 13:30 Sodium 124 L (137-145) mmol/L Chloride 94 L (98-107) mmol/L BUN 28 H (7-17) mg/dL Creatinine 1.50 H (0.52-1.04) mg/dL Glucose 100 H (74-99) mg/dL POC Glucose (mg/dL) 127 H (75-99) mg/dL Ur Random Sodium 9 L (30-90) mmol/L Assessment and Plan Plan: Impression: #1 Cardiac arrest secondary to ventricular fibrillation, status post defibrillation 1 and CPR with return of spontaneous circulation. #2 Acute hypoxic respiratory failure secondary to above requiring brief intubation mechanical ventilatory support, recovered. #3 Known history of coronary artery disease with previous stent placement and coronary artery bypass grafting. #4 Ischemic cardiomyopathy with significant global hypokinesia and with severely impaired left ventricular systolic function. Estimated ejection fraction 25-30%. Repeat echocardiogram today reveals continued moderate to severe impaired left ventricular systolic function with ejection fraction of 30- 35%. #5 Severe aortic stenosis. #6Diabetes mellitus, type II. #7 History of asthma. #8 Hypertension. #9 Hyperlipidemia. #10 Obesity. Plan: The patient was seen and evaluated by Dr. Ricardo. Her chest x-ray and labs were reviewed. We'll continue with her current pulmonary medications. She continues to work well at the incentive spirometer and cough and deep breathing exercises. We will increase her activity as tolerated. We'll continue to follow.
[2016-10-09] MEDS: SODIUM CHLORIDE 0.9% 1,000 ML IV SCH (15:50)
[2016-10-09] MEDS: BENZOCAINE/MENTHOL LOZENG 1 EACH LOZENGE MUCOUS MEM PRN (16:40)
[2016-10-09 17:49] LABS: Glucose,Whole Blood 233 mg/dL (75-99)
--- NOTE | 2016-10-09 18:42 | P.PN ---
Subjective Date of service 10/09/2016. Progress note being dictated for Dr. Abreu Interval history: This 66-year-old female admitted with V. tach, cardiac arrest , status post CPR with placement of AICD. Echo repeated with improvement in LV function, EF now reported as 30-35%. Maintained on lisinopril. Potassium 4.8. Lasix discontinued yesterday given worsening renal function. Nonproductive cough, Chest x-ray reporting minimal pleural effusion. Maintaining O2 sats of 95-96% on room air. Creatinine 1.5, sodium 124; Lasix IV push 1 ordered as per cardiology .Afebrile. Denies any focal deficits, lightheadedness or dizziness. Denies any chest pain palpitations or increased shortness of breath Objective - Vital Signs Vital signs: Vital Signs Temp 97.7 F 10/09/16 12:00 Pulse 72 10/09/16 15:41 Resp 18 10/09/16 15:41 BP 103/67 10/09/16 15:41 Pulse Ox 96 10/09/16 15:41 Intake & Output 10/08/16 10/09/16 10/09/16 18:59 06:59 18:59 Intake Total 120 360 Balance 120 360 Weight 98.4 kg Intake: IV 120 Sodium Chloride 0.9% 1, 120 000 ml @ 50 mls/hr IV . Q20H CORIE Rx#:[id number] Intake, IV Titration 60 Amount Sodium Chloride 0.9% 1, 60 000 ml @ 20 mls/hr IV . Q24H CORIE Rx#:[id number] Oral 300 Other: Voiding Method Toilet # Voids 1 1 - Exam PHYSICAL EXAM: VITAL SIGNS: [As above] GENERAL: [Sitting up in bed, no acute distress, wearing sling] HEENT: [Pupils equal conjunctiva normal.] NECK: [Supple, no JVD] RESPIRATORY EFFORT:[Normal] LUNGS: [Clear, no crackles wheezes or rhonchi] CARDIOVASCULAR[regular S1 and S2, positive systolic murmur, no rub or gallop, no edema] GI: [Abdomen soft, nontender, positive bowel sounds.] PSYCH: [Alert and oriented -3, mood and affect normal.] NEURO: No focal deficits. - Labs CBC & Chem 7: 10/08/16 06:45 10/09/16 06:07 Labs: Abnormal Lab Results - Last 24 Hours (Table) 10/08/16 10/09/16 10/09/16 Range/Units 20:30 05:48 06:07 Sodium 124 L (137-145) mmol/L Chloride 94 L (98-107) mmol/L BUN 28 H (7-17) mg/dL Creatinine 1.50 H (0.52-1.04) mg/dL Glucose 100 H (74-99) mg/dL POC Glucose (mg/dL) 138 H 110 H (75-99) mg/dL Ur Random Sodium (30-90) mmol/L 10/09/16 10/09/16 10/09/16 Range/Units 12:01 13:30 17:46 Sodium (137-145) mmol/L Chloride (98-107) mmol/L BUN (7-17) mg/dL Creatinine (0.52-1.04) mg/dL Glucose (74-99) mg/dL POC Glucose (mg/dL) 127 H 233 H (75-99) mg/dL Ur Random Sodium 9 L (30-90) mmol/L Assessment and Plan Plan: 1. Ventricular tachycardia, Status post cardiopulmonary arrest with CPR and placement of AICD]. 2. Chronic congestive heart failure, systolic dysfunction, EF 30-35%, Ischemic cardiomyopathy, without signs of acute CHF]. 3. Hypovolemic hyponatremia]. 4. [Depression]. 5. [Diabetes mellitus type 2]. 6. [Chest wall pain secondary to CPR]. 7. [Moderate aortic stenosis]. 8. Acute hypoxic respiratory failure secondary to #1, resolved 9. CAD with history of CABG and stent placement 10. Obesity, BMI 45.3 11. Hyperlipidemia Plan: Continue on current medication regime , KYLEE inhibitor, monitoring and symptomatic treatment. Worsening hyponatremia ,Nephrology consult initiated. Lasix currently on hold. Close monitoring of renal function with repeat labs ordered for a.m. Aggressive pulmonary toileting. Further recommendations to follow. The impression and plan of care has been dictated as directed. : I performed a H&P examination of this patient and discussed the same with the dictator. I agree with the dictator's note. Any additional findings/opinions/ etc. will be noted.
--- NOTE | 2016-10-09 20:28 | CONS ---
DATE OF CONSULTATION: REASON FOR CONSULTATION: Hyponatremia. HISTORY OF PRESENT ILLNESS: Patient is a 66-year-old female who was admitted to the hospital after a cardiac arrest which she sustained in the elevator and had CPR. Her serum creatinine was 0.98 mg/dL on 10/07 and it has increased to 1.5. Patient has CHF and fluid overload and was being diuresed. Her sodium level was 135 on initial admission. It decreased to 123 on 10/06/2016, went up to 128, and now it is back down to 124 mEq/L. Patient had been drinking a lot of plain water. She was started on fluid restriction yesterday. PAST MEDICAL HISTORY: 1. Coronary artery disease. 2. Hyperlipidemia. 3. Hypertension. 4. History of ME. 5. Osteoarthritis. PAST SURGICAL HISTORY: 1. Back surgery. 2. Coronary artery bypass surgery. 3. Right shoulder replacement. SOCIAL HISTORY: Negative for smoking, drug abuse or alcohol abuse. REVIEW OF SYSTEMS: Currently positive for pain. No diarrhea, nausea, vomiting noted. Medications include: 1. Lasix, which patient received yesterday. 2. Aspirin. 3. Allopurinol. 4. [place]. 5. Dulcolax. 6. Coreg. 7. Colace. 8. Pepcid. 9. Prozac. 10. Insulin. 11. Imdur. 12. Zestril. 13. Singulair. 14. Zofran. 15. Ambien. On examination, patient is currently comfortable. She is awake, alert, oriented x3, not in any acute distress. Blood pressure is 103/67, heart rate 72 per minute. She is afebrile. EXAMINATION OF THE HEART: S1 and S2. EXAMINATION OF LUNGS: Decreased breath sounds in the bases. ABDOMEN: Soft, nontender. Examination of lower extremities shows edema 2+ bilaterally. FUEL SYSTEM MAINTENANCE SUPERVISOR exam is grossly intact. Patient's left shoulder is in a sling. Labs show sodium 124, potassium 4.8, BUN 28, serum creatinine 1.5. Urine osmolality 166. Urine sodium 9. ASSESSMENT: 1. Hypervolemic hyponatremia. Expect improvement with diuresis. Will give another dose of Lasix and repeat sodium level. Random urine sodium was noted to be 9, which can be present with CHF. 2. Acute kidney injury associated with recent diuresis. Blood pressure is borderline. Patient is maintained on KYLEE inhibitors, which we can continue for now unless renal function continues to worsen. It is a very low dose of lisinopril, which should be okay. 3. Severely moderate to severely impaired ejection fraction cardiomyopathy with ejection fraction 30% to 35%. 4. Moderate aortic stenosis. PLAN: Lasix x1. Repeat sodium later on today. If it continues to decline, patient may need 3% saline for a short period of time. May benefit from tolvaptan, which is ADH receptor antagonist. Thank you for this consultation. Will continue to follow the patient with you during her hospitalization.
--- NOTE | 2016-10-09 21:03 | PN ---
This patient is status post cardiac arrest and defibrillator placement. She continues to have some pain in the chest which is secondary to the CPR. Patient continues to have a cough and some breathing problems. Blood pressure is 103/67 mmHg. HEART: S1 and S2 normal. Lungs reveal bilateral scattered wheezes. Abdomen is soft. Patient's echocardiogram was repeated which again shows severely impaired left ventricular systolic function. There is moderate to severe aortic stenosis. Patient's diastolic function is suggestive of elevated left atrial pressure and left ventricular end-diastolic pressure. Patient's creatinine today is 1.5. We will give the patient one dose of IV Lasix 40 mg IV today. Patient is also hyponatremic, which is most likely secondary to low cardiac output and impaired renal perfusion. We will obtain nephrologic consultation. Patient is overall not significantly hypervolemic in terms of leg edema. We will continue the pulmonary treatment.
[2016-10-09 21:04] LABS: Glucose,Whole Blood 116 mg/dL (75-99)
[2016-10-09] MEDS: ALLOPURINOL 300 MG TAB PO SCH (21:50)
[2016-10-09] MEDS: ASPIRIN 81 MG CHEW PO SCH (21:51)
[2016-10-09] MEDS: FAMOTIDINE 20 MG TAB PO SCH (21:52)
[2016-10-09] MEDS: FLUoxetine HCL 10 MG CAP PO SCH (21:53)
[2016-10-09] MEDS: MONTELUKAST 10 MG TAB PO SCH (21:53)
[2016-10-09] MEDS: INSULIN GLARGINE 100 UNIT/ML 10 ML VIAL SQ SCH (21:54)
[2016-10-10] MEDS: traMADol 50 MG TAB PO PRN ×4 (05:34→23:18)
[2016-10-10 05:40] LABS: Glucose,Whole Blood 167 mg/dL (75-99)
[2016-10-10] MEDS ORDERED: FUROSEMIDE 10 MG/ML 4 ML VIAL IV STA (06:09)
[2016-10-10 06:32] LABS: Basophils % (A) 0 %; CH 31.2; CHCM 32.1; Eosinophils # (A) 0.3 k/uL (0-0.7); Eosinophils % (A) 5 %; HCT 34.2 % (34.0-46.0); HDW 2.74; HGB 10.8 gm/dL (11.4-16.0); Luc # (Auto) 0.14; Luc % (Auto) 2; Lymphocytes # (A) 1.2 k/uL (1.0-4.8); Lymphocytes % (A) 20 %; MCH 30.7 pg (25.0-35.0); MCHC 31.4 g/dL (31.0-37.0); MCV 97.6 fL (80.0-100.0); Mean Platelet Volume 6.8; Monocytes # (A) 0.5 k/uL (0-1.0); Monocytes % (A) 8 %; Neutrophils # (A) 3.9 k/uL (1.3-7.7); Neutrophils % (A) 64 %; RBC 3.51 m/uL (3.80-5.40); RDW 14.8 % (11.5-15.5); WBC (Perox) 6.69
[2016-10-10 06:47] LABS: Calcium 9.7 mg/dL (8.4-10.2)
[2016-10-10 06:53] LABS: Potassium 4.5 mmol/L (3.5-5.1)
[2016-10-10] MEDS: INSULIN LISPRO (humaLOG) 300 UNIT/3 ML VIAL SQ SCH ×7 (07:19→20:51)
[2016-10-10] MEDS: CARVEDILOL 12.5 MG TAB PO SCH ×2 (07:20→17:20)
[2016-10-10] MEDS: PROMETHAZ-COD 6.25-10 MG/5 ML 5 ML CUP PO PRN ×3 (08:04→20:50)
[2016-10-10] MEDS: guaiFENesin 600 MG TABLET.ER PO SCH ×2 (08:04→20:49)
[2016-10-10] MEDS: DOCUSATE 100 MG CAP PO SCH ×2 (08:05→20:48)
[2016-10-10] MEDS: ISOSORBIDE MONONITRATE ER 30 MG TAB.ER.24H PO SCH (08:05)
[2016-10-10] MEDS: LISINOPRIL 2.5 MG TAB PO SCH (08:05)
[2016-10-10] MEDS: IPRATROPIUM-ALBUTEROL 3 ML NEB INHALATION SCH ×3 (08:37→20:35)
[2016-10-10] MEDS: BUDESONIDE 0.5 MG/2 ML NEBU INHALATION SCH (08:37)
[2016-10-10] MEDS: HYDROcodone/APAP 5-325MG 1 EACH TAB PO PRN ×3 (11:06→20:48)
--- NOTE | 2016-10-10 12:03 | P.PN ---
Subjective Progress note dated 10/08/2016 This is a patient who had an in-hospital cardiopulmonary arrest. She was resuscitated. Doing relatively well. She continues to have pain over the anterior chest proper, likely related to the cardiopulmonary resuscitation. Still coughing. Not bringing up any phlegm. No fever no chills. Overall the patient's condition has improved. Her hemodynamic status is stable. Respiratory status is stable. Progress note dated 10/10/2016 Very pleasant 66-year-old female with an in-hospital cardiopulmonary arrest. She had cardiopulmonary resuscitation with return of spontaneous circulation. She was intubated and mechanically ventilated briefly in the ICU. Doing well. Apparently was recently told that she may have significant aortic stenosis. The change control manager is talking to her about BAP. From our standpoint her respiratory status is stable. We'll sign off and see as needed. Objective - Vital Signs Vital signs: Vital Signs Temp 98.0 F 10/10/16 04:00 Pulse 60 10/10/16 04:00 Resp 18 10/10/16 04:00 BP 119/64 10/10/16 04:00 Pulse Ox 96 10/10/16 04:00 Intake & Output 10/09/16 10/10/16 10/10/16 18:59 06:59 18:59 Intake Total 1320 600 180 Balance 1320 600 180 Weight 97 kg Intake: Intake, IV Titration 140 Amount Sodium Chloride 0.9% 1, 140 000 ml @ 20 mls/hr IV . Q24H [facility] Rx#:[id number] Oral 1180 600 180 Other: Voiding Method Toilet # Voids 3 1 # Bowel Movements 1 - Exam No acute distress, oriented 3. HEENT examination is grossly unremarkable. Mixed membranes are moist. No oral lesions. Neck supple. Full range of motion. No adenopathy or thyromegaly. Cardiovascular examination reveals regular rhythm rate. S1 and S2 normal. No S3-S4. Lungs reveal some coarse rhonchi. Breath sounds are diminished. There is prolongation. Breath sounds are much improved Abdomen soft Extremities are intact. - Labs CBC & Chem 7: 10/10/16 06:04 10/10/16 06:04 Labs: Abnormal Lab Results - Last 24 Hours (Table) 10/09/16 10/09/16 10/09/16 Range/Units 12:01 13:30 17:46 RBC (3.80-5.40) m/uL Hgb (11.4-16.0) gm/dL Sodium (137-145) mmol/L Carbon Dioxide (22-30) mmol/L BUN (7-17) mg/dL Creatinine (0.52-1.04) mg/dL Glucose (74-99) mg/dL POC Glucose (mg/dL) 127 H 233 H (75-99) mg/dL Ur Random Sodium 9 L (30-90) mmol/L 10/09/16 10/09/16 10/10/16 Range/Units 19:33 21:02 05:38 RBC (3.80-5.40) m/uL Hgb (11.4-16.0) gm/dL Sodium 128 L (137-145) mmol/L Carbon Dioxide (22-30) mmol/L BUN (7-17) mg/dL Creatinine (0.52-1.04) mg/dL Glucose (74-99) mg/dL POC Glucose (mg/dL) 116 H 167 H (75-99) mg/dL Ur Random Sodium (30-90) mmol/L 10/10/16 10/10/16 Range/Units 06:04 06:04 RBC 3.51 L (3.80-5.40) m/uL Hgb 10.8 L (11.4-16.0) gm/dL Sodium 132 L (137-145) mmol/L Carbon Dioxide 21 L (22-30) mmol/L BUN 34 H (7-17) mg/dL Creatinine 1.32 H (0.52-1.04) mg/dL Glucose 176 H (74-99) mg/dL POC Glucose (mg/dL) (75-99) mg/dL Ur Random Sodium (30-90) mmol/L Assessment and Plan (1) Cardiac arrest Status: Acute (2) Ventricular fibrillation Status: Acute (3) Congestive heart failure (CHF) Status: Acute (4) Diabetes Status: Acute (5) Exertional shortness of breath Status: Acute (6) Hyperlipemia Status: Acute (7) S/P cardiac cath Status: Acute Plan: Plan The patient's doing well. We'll continue to follow. No additional recommendations are made. Hemodynamic and respiratory status seems stable. Plan dated 10/10/2016 The patient is doing well. We'll sign off and see only as needed. Please feel free to call us back on the case should you've ER services. The patient seems to be in good hands and doing well. She's currently being evaluated for persistent edema and possible aortic stenosis. Time with Patient: Less than 30
[2016-10-10 12:43] LABS: Glucose,Whole Blood 232 mg/dL (75-99)
[2016-10-10] MEDS: BENZOCAINE/MENTHOL LOZENG 1 EACH LOZENGE MUCOUS MEM PRN ×2 (15:05→20:50)
--- NOTE | 2016-10-10 15:26 | PN ---
Patient is seen for followup for hyponatremia which is hypervolemic. She was given extra Lasix yesterday and her serum sodium improved to 128 last night from 124 and this morning it is up to 132. Renal function has also improved. Weight has come down about 1.4 kg and overall patient states she is feeling slightly better. On examination, blood pressure is 129/72, heart rate 82 per minute. She is afebrile. Examination of the heart, S1 and S2. Examination of the lungs, bilateral breath sounds are heard. Abdomen is soft, nontender. Examination of lower extremities shows edema 1+ bilaterally. SUPPORT TECHNICIAN exam is grossly intact. Left shoulder is currently in sling. Labs show sodium 132, potassium 4.5, BUN 34, serum creatinine 1.32. Hemoglobin 10.8 g/dL. ASSESSMENT: 1. Hypervolemic hyponatremia currently improving with diuresis. I will increase the Lasix to 40 mg IV q.8 hours. Repeat labs in a.m. 2. Acute kidney injury associated with congestive heart failure and volume overload, currently improving. Continue with the Lasix for now and repeat labs in a.m. May continue with the low-dose KYLEE inhibitors as well. 3. Status post cardiac arrest in the elevator in the hospital. 4. Status post AICD placement. 5. Cardiomyopathy, ejection fraction of 30% to 35%. PLAN: Maintain Lasix 40 mg IV q.8h. and repeat labs in a.m.
--- NOTE | 2016-10-10 15:34 | P.PN ---
Subjective Principal diagnosis: Cardiac arrest This is a pleasant 66-year-old female with known history of coronary artery disease and prior bypass surgery in 2012 at which time she underwent ADAM to the LAD, saphenous vein graft to the diagonal 1, saphenous vein graft to the OM1 and saphenous vein graft to the PDA, prior to that patient did have a stent to the RCA as well as the LAD. Most recent cardiac catheterization was performed in June of last year which revealed 2 patent grafts, patent ADAM to the LAD and patent saphenous vein graft to the PDA, 100% vein graft to the OM right dominant. Most recent echocardiogram with Doppler study was performed in August of last year which revealed an ejection fraction of 40% with moderately dilated left atrium, abnormal trileaflet aortic valve with mild aortic regurg. The aortic valve was calcified. Mild to moderate mitral regurg at that time. Patient also has history of diabetes, hypertension, hyperlipidemia, family history of premature coronary artery disease. Patient is status post cardiac arrest, for ventricular fibrillation. Patient underwent implantation of AICD, device was interrogated, and is functioning appropriately. Patient was given one dose of Lasix yesterday, today he is feeling much better overall. Sodium today 132, BUN 34, creatinine 1.3. We will give the patient a one time dose of IV Lasix 40 mg today. Repeat chest x- ray in the morning along with lytes BUN and creatinine. Objective - Vital Signs Vital signs: Vital Signs Temp 97.0 F L 10/10/16 08:00 Pulse 69 10/10/16 12:00 Resp 16 10/10/16 12:00 BP 129/72 10/10/16 08:00 Pulse Ox 99 10/10/16 08:00 Intake & Output 10/09/16 10/10/16 10/10/16 18:59 06:59 18:59 Intake Total 1320 600 180 Balance 1320 600 180 Weight 97 kg Intake: Intake, IV Titration 140 Amount Sodium Chloride 0.9% 1, 140 000 ml @ 20 mls/hr IV . Q24H [facility] Rx#:[id number] Oral 1180 600 180 Other: Voiding Method Toilet Toilet # Voids 3 1 # Bowel Movements 1 - Exam PHYSICAL EXAMINATION: HEENT: Head is atraumatic, normocephalic. Pupils equal, round. Neck is supple. There is no elevated jugular venous pressure. HEART EXAMINATION: R S1 and S2 1 systolic ejection murmur is heard. Site of device implantation dressing is dry and intact. CHEST EXAMINATION: Lungs reveal bilateral fine wheezes. Positive chest wall pain with coughing and movement ABDOMEN: Soft, nontender. Bowel sounds are heard. No organomegaly noted. EXTREMITIES: 2+ peripheral pulses with trace evidence of peripheral edema and no calf tenderness noted. NEUROLOGIC patient is awake, alert and oriented -3. . - Labs CBC & Chem 7: 10/10/16 06:04 10/10/16 06:04 Labs: Abnormal Lab Results - Last 24 Hours (Table) 10/09/16 10/09/16 10/09/16 Range/Units 17:46 19:33 21:02 RBC (3.80-5.40) m/uL Hgb (11.4-16.0) gm/dL Sodium 128 L (137-145) mmol/L Carbon Dioxide (22-30) mmol/L BUN (7-17) mg/dL Creatinine (0.52-1.04) mg/dL Glucose (74-99) mg/dL POC Glucose (mg/dL) 233 H 116 H (75-99) mg/dL 10/10/16 10/10/16 10/10/16 Range/Units 05:38 06:04 06:04 RBC 3.51 L (3.80-5.40) m/uL Hgb 10.8 L (11.4-16.0) gm/dL Sodium 132 L (137-145) mmol/L Carbon Dioxide 21 L (22-30) mmol/L BUN 34 H (7-17) mg/dL Creatinine 1.32 H (0.52-1.04) mg/dL Glucose 176 H (74-99) mg/dL POC Glucose (mg/dL) 167 H (75-99) mg/dL 10/10/16 Range/Units 12:22 RBC (3.80-5.40) m/uL Hgb (11.4-16.0) gm/dL Sodium (137-145) mmol/L Carbon Dioxide (22-30) mmol/L BUN (7-17) mg/dL Creatinine (0.52-1.04) mg/dL Glucose (74-99) mg/dL POC Glucose (mg/dL) 232 H (75-99) mg/dL Assessment and Plan Plan: Assessment and plan #1 cardiac arrest exact etiology yet undetermined. Patient was noted to have ventricular fibrillation requiring defibrillation. Status post implantation of AICD Currently in normal sinus rhythm. #2 known history of coronary artery disease with prior stent placement and bypass surgery, most recent cardiac catheterization performed in June of last year which revealed 2 patent grafts, patent ADAM to the LAD, patent vein graft to the PDA, 100% vein graft to the OM. Medical therapy advised at that time. #3 hypertension #4 diabetes, #5 hyperlipidemia #6 hypertension #7 family history of premature coronary artery disease #8 hyponatremia, improving. Plan We will give the patient one time dose of 40 mg IV Lasix today. Check lytes BUN creatinine and chest x-ray in the morning. DNP note has been reviewed, I agree with a documented findings and plan of care. Patient was seen and examined.
[2016-10-10 15:48] LABS: Glucose,Whole Blood 178 mg/dL (75-99)
[2016-10-10] MEDS: SODIUM CHLORIDE 0.9% 1,000 ML IV SCH (15:59)
[2016-10-10] MEDS: FUROSEMIDE 10 MG/ML 4 ML VIAL IV SCH ×2 (16:08→23:30)
--- NOTE | 2016-10-10 17:28 | P.PN ---
Subjective Date of service 10/10/2016. Progress note being dictated for Dr. Abreu Interval history: This 66-year-old female admitted with V. tach, cardiac arrest , status post CPR with placement of AICD. Currently on Lasix with improvement in sodium, now on 132, as well as improvement in renal function. Feels better today. Nonproductive cough. Denies chest pain, palpitations or increasing shortness of breath. Objective - Vital Signs Vital signs: Vital Signs Temp 97.0 F L 10/10/16 15:46 Pulse 84 10/10/16 15:46 Resp 16 10/10/16 15:46 BP 144/68 10/10/16 15:46 Pulse Ox 100 10/10/16 15:46 Intake & Output 10/09/16 10/10/16 10/10/16 18:59 06:59 18:59 Intake Total 4296 104 4756 Balance 2896 580 9675 Weight 97 kg Intake: Intake, IV Titration 140 Amount Sodium Chloride 0.9% 1, 140 000 ml @ 20 mls/hr IV . Q24H [facility] Rx#:[id number] Oral 1192 758 0501 Other: Voiding Method Toilet Toilet # Voids 3 1 3 # Bowel Movements 1 1 - Exam PHYSICAL EXAM: VITAL SIGNS: [As above] GENERAL: [Sitting up in bed, no acute distress, wearing sling] HEENT: [Pupils equal conjunctiva normal.] NECK: [Supple, no JVD] RESPIRATORY EFFORT:[Normal] LUNGS: [Clear, no crackles, no rhonchi, occasional expiratory wheeze] CARDIOVASCULAR[regular S1 and S2, positive systolic murmur, no rub or gallop, mild edema] GI: [Abdomen soft, nontender, positive bowel sounds.] PSYCH: [Alert and oriented -3, mood and affect normal.] NEURO: No focal deficits. - Labs CBC & Chem 7: 10/10/16 06:04 10/10/16 06:04 Labs: Abnormal Lab Results - Last 24 Hours (Table) 10/09/16 10/09/16 10/09/16 Range/Units 17:46 19:33 21:02 RBC (3.80-5.40) m/uL Hgb (11.4-16.0) gm/dL Sodium 128 L (137-145) mmol/L Carbon Dioxide (22-30) mmol/L BUN (7-17) mg/dL Creatinine (0.52-1.04) mg/dL Glucose (74-99) mg/dL POC Glucose (mg/dL) 233 H 116 H (75-99) mg/dL 10/10/16 10/10/16 10/10/16 Range/Units 05:38 06:04 06:04 RBC 3.51 L (3.80-5.40) m/uL Hgb 10.8 L (11.4-16.0) gm/dL Sodium 132 L (137-145) mmol/L Carbon Dioxide 21 L (22-30) mmol/L BUN 34 H (7-17) mg/dL Creatinine 1.32 H (0.52-1.04) mg/dL Glucose 176 H (74-99) mg/dL POC Glucose (mg/dL) 167 H (75-99) mg/dL 10/10/16 10/10/16 Range/Units 12:22 15:46 RBC (3.80-5.40) m/uL Hgb (11.4-16.0) gm/dL Sodium (137-145) mmol/L Carbon Dioxide (22-30) mmol/L BUN (7-17) mg/dL Creatinine (0.52-1.04) mg/dL Glucose (74-99) mg/dL POC Glucose (mg/dL) 232 H 178 H (75-99) mg/dL Assessment and Plan Plan: 1. Ventricular tachycardia, Status post cardiopulmonary arrest with CPR and placement of AICD. 2. Chronic congestive heart failure, systolic dysfunction, EF 30-35%, Ischemic cardiomyopathy, without signs of acute CHF]. 3. Hypervolemic hyponatremia. 4. [Depression]. 5. [Diabetes mellitus type 2]. 6. [Chest wall pain secondary to CPR]. 7. [Moderate aortic stenosis]. 8. Acute hypoxic respiratory failure secondary to #1, resolved 9. CAD with history of CABG and stent placement 10. Obesity, BMI 45.3 11. Hyperlipidemia 12. Acute renal failure secondary to ischemic cardiomyopathy, low cardiac output. Plan: Continue on current medication regime , KYLEE inhibitor, Lasix, monitoring and symptomatic treatment. Diuretics as per nephrology .Close monitoring of renal function and electrolytes with repeat labs ordered for a.m. Aggressive pulmonary toileting. Further recommendations to follow. The impression and plan of care has been dictated as directed. : I performed a H&P examination of this patient and discussed the same with the dictator. I agree with the dictator's note. Any additional findings/opinions/ etc. will be noted.
[2016-10-10] MEDS: CRESTOR 5 MG PO SCH (20:48)
[2016-10-10] MEDS: MONTELUKAST 10 MG TAB PO SCH (20:49)
[2016-10-10] MEDS: ALLOPURINOL 300 MG TAB PO SCH (20:49)
[2016-10-10] MEDS: FAMOTIDINE 20 MG TAB PO SCH (20:49)
[2016-10-10] MEDS: ASPIRIN 81 MG CHEW PO SCH (20:49)
[2016-10-10] MEDS: ZOLPIDEM 5 MG TAB PO PRN (20:51)
[2016-10-10] MEDS: INSULIN GLARGINE 100 UNIT/ML 10 ML VIAL SQ SCH (20:51)
[2016-10-10] MEDS: FLUoxetine HCL 10 MG CAP PO SCH (20:52)
[2016-10-10 20:53] LABS: Glucose,Whole Blood 257 mg/dL (75-99)
[2016-10-11] MEDS: HYDROcodone/APAP 5-325MG 1 EACH TAB PO PRN ×5 (03:50→23:07)
[2016-10-11] MEDS: CARVEDILOL 12.5 MG TAB PO SCH ×2 (06:02→16:56)
[2016-10-11] MEDS: traMADol 50 MG TAB PO PRN ×3 (06:02→21:12)
[2016-10-11 06:14] LABS: Glucose,Whole Blood 156 mg/dL (75-99)
[2016-10-11 06:33] LABS: Basophils % (A) 0 %; CH 31.6; CHCM 32.6; Eosinophils # (A) 0.3 k/uL (0-0.7); Eosinophils % (A) 5 %; HCT 35.1 % (34.0-46.0); HDW 2.79; Luc # (Auto) 0.15; Luc % (Auto) 2; Lymphocytes # (A) 1.1 k/uL (1.0-4.8); Lymphocytes % (A) 17 %; MCH 30.5 pg (25.0-35.0); MCHC 31.3 g/dL (31.0-37.0); MCV 97.3 fL (80.0-100.0); Monocytes # (A) 0.4 k/uL (0-1.0); Monocytes % (A) 6 %; Neutrophils # (A) 4.3 k/uL (1.3-7.7); Neutrophils % (A) 69 %; RBC 3.61 m/uL (3.80-5.40); RDW 14.9 % (11.5-15.5); WBC 6.2 k/uL (3.8-10.6); WBC (Perox) 6.67
[2016-10-11 06:42] LABS: Potassium 4.4 mmol/L (3.5-5.1)
[2016-10-11] MEDS: INSULIN LISPRO (humaLOG) 300 UNIT/3 ML VIAL SQ SCH ×7 (07:04→21:49)
[2016-10-11] MEDS: PROMETHAZ-COD 6.25-10 MG/5 ML 5 ML CUP PO PRN ×3 (08:44→21:13)
[2016-10-11] MEDS: FUROSEMIDE 10 MG/ML 4 ML VIAL IV SCH ×2 (08:45→15:13)
[2016-10-11] MEDS: LISINOPRIL 2.5 MG TAB PO SCH (08:45)
[2016-10-11] MEDS: ISOSORBIDE MONONITRATE ER 30 MG TAB.ER.24H PO SCH (08:46)
[2016-10-11] MEDS: guaiFENesin 600 MG TABLET.ER PO SCH ×2 (08:46→21:12)
[2016-10-11] MEDS: DOCUSATE 100 MG CAP PO SCH ×2 (08:46→21:13)
[2016-10-11] MEDS: IPRATROPIUM-ALBUTEROL 3 ML NEB INHALATION SCH ×3 (08:55→20:09)
[2016-10-11 09:47] VITALS: RESP 18
[2016-10-11 12:01] LABS: Glucose,Whole Blood 186 mg/dL (75-99)
[2016-10-11 14:18] VITALS: BMI 43.7
--- NOTE | 2016-10-11 14:21 | P.PN ---
Subjective Patient is seen in follow-up for hyponatremia. Sodium level is up to 134 today. This is hypervolemic in nature and improving with IV diuresis. Her dyspnea is improved. Appetite is fair. Denies any vomiting or diarrhea. Admits to good urine output. Her weight is trending down. She does a systolic CHF with ejection fraction of 30-35%. Vital signs are stable. General: The patient appeared well nourished and normally developed. HEENT: Head exam is unremarkable. Neck is without jugular venous distension. LUNGS: Lungs are clear to auscultation and percussion. Breath sounds decreased. HEART: Rate and Rhythm are regular. First and second heart sounds normal. No murmurs, rubs or gallops. ABDOMEN: Abdominal exam reveals normal bowel sounds. Non-tender and non- distended. No evidence of peritonitis. EXTREMITITES: 1+ edema. Objective - Vital Signs Vital signs: Vital Signs Temp 97.3 F L 10/11/16 12:00 Pulse 53 L 10/11/16 12:00 Resp 18 10/11/16 12:00 BP 158/100 10/11/16 12:00 Pulse Ox 100 10/11/16 12:00 Intake & Output 10/10/16 10/11/16 10/11/16 18:59 06:59 18:59 Intake Total 1060 730 100 Balance 1060 730 100 Weight 94.8 kg 94.8 kg Intake: Oral 1060 730 100 Other: Voiding Method Toilet Toilet Toilet # Voids 3 3 1 # Bowel Movements 1 - Labs CBC & Chem 7: 10/11/16 05:54 10/11/16 05:54 Labs: Abnormal Lab Results - Last 24 Hours (Table) 10/10/16 10/10/16 10/11/16 Range/Units 15:46 20:50 05:54 RBC 3.61 L (3.80-5.40) m/uL Hgb 11.0 L (11.4-16.0) gm/dL Sodium (137-145) mmol/L BUN (7-17) mg/dL Creatinine (0.52-1.04) mg/dL Glucose (74-99) mg/dL POC Glucose (mg/dL) 178 H 257 H (75-99) mg/dL 10/11/16 10/11/16 10/11/16 Range/Units 05:54 06:12 11:59 RBC (3.80-5.40) m/uL Hgb (11.4-16.0) gm/dL Sodium 134 L (137-145) mmol/L BUN 41 H (7-17) mg/dL Creatinine 1.25 H (0.52-1.04) mg/dL Glucose 158 H (74-99) mg/dL POC Glucose (mg/dL) 156 H 186 H (75-99) mg/dL Assessment and Plan Plan: Assessment: #1. Hypervolemic hyponatremia. Improving. #2. Systolic CHF with ejection fraction of 30-35%. #3. Nonoliguric acute kidney injury secondary to cardiorenal syndrome. Creatinine down to 1.25 today. Plan: Continue Lasix 40 mg IV 3 times daily. Maintain low salt diet. I will put her on a 1200 mL fluid restriction. Repeat electrolytes in the morning.
[2016-10-11] MEDS: SODIUM CHLORIDE 0.9% 1,000 ML IV SCH (14:27)
[2016-10-11] MEDS: BENZOCAINE/MENTHOL LOZENG 1 EACH LOZENGE MUCOUS MEM PRN ×2 (15:40→18:44)
--- NOTE | 2016-10-11 16:19 | P.PN ---
Subjective Principal diagnosis: Cardiac arrest This is a pleasant 66-year-old female with known history of coronary artery disease and prior bypass surgery in 2012 at which time she underwent ADAM to the LAD, saphenous vein graft to the diagonal 1, saphenous vein graft to the OM1 and saphenous vein graft to the PDA, prior to that patient did have a stent to the RCA as well as the LAD. Most recent cardiac catheterization was performed in June of last year which revealed 2 patent grafts, patent ADAM to the LAD and patent saphenous vein graft to the PDA, 100% vein graft to the OM right dominant. Most recent echocardiogram with Doppler study was performed in August of last year which revealed an ejection fraction of 40% with moderately dilated left atrium, abnormal trileaflet aortic valve with mild aortic regurg. The aortic valve was calcified. Mild to moderate mitral regurg at that time. Patient also has history of diabetes, hypertension, hyperlipidemia, family history of premature coronary artery disease. Patient is status post cardiac arrest, for ventricular fibrillation. Patient underwent implantation of AICD, device was interrogated, and is functioning appropriately. Overall patient has diuresed very well through the night last night. Creatinine today is 1.2 area weight is down 3 kg. We will discontinue the IV Lasix and start the patient on Lasix 40 mg orally. Check lytes BUN and creatinine in the morning. Objective - Vital Signs Vital signs: Vital Signs Temp 97.3 F L 10/11/16 12:00 Pulse 53 L 10/11/16 12:00 Resp 18 10/11/16 12:00 BP 158/100 10/11/16 12:00 Pulse Ox 100 10/11/16 12:00 Intake & Output 10/10/16 10/11/16 10/11/16 18:59 06:59 18:59 Intake Total 1060 730 100 Balance 1060 730 100 Weight 94.8 kg 94.8 kg Intake: Oral 1060 730 100 Other: Voiding Method Toilet Toilet Toilet # Voids 3 3 1 # Bowel Movements 1 - Exam PHYSICAL EXAMINATION: HEENT: Head is atraumatic, normocephalic. Pupils equal, round. Neck is supple. There is no elevated jugular venous pressure. HEART EXAMINATION: R S1 and S2 1 systolic ejection murmur is heard. Site of device implantation dressing is dry and intact. CHEST EXAMINATION: Lungs are clear to auscultation. ABDOMEN: Soft, nontender. Bowel sounds are heard. No organomegaly noted. EXTREMITIES: 2+ peripheral pulses with trace evidence of peripheral edema and no calf tenderness noted. NEUROLOGIC patient is awake, alert and oriented -3. . - Labs CBC & Chem 7: 10/11/16 05:54 10/11/16 05:54 Labs: Abnormal Lab Results - Last 24 Hours (Table) 10/10/16 10/11/16 10/11/16 Range/Units 20:50 05:54 05:54 RBC 3.61 L (3.80-5.40) m/uL Hgb 11.0 L (11.4-16.0) gm/dL Sodium 134 L (137-145) mmol/L BUN 41 H (7-17) mg/dL Creatinine 1.25 H (0.52-1.04) mg/dL Glucose 158 H (74-99) mg/dL POC Glucose (mg/dL) 257 H (75-99) mg/dL 10/11/16 10/11/16 Range/Units 06:12 11:59 RBC (3.80-5.40) m/uL Hgb (11.4-16.0) gm/dL Sodium (137-145) mmol/L BUN (7-17) mg/dL Creatinine (0.52-1.04) mg/dL Glucose (74-99) mg/dL POC Glucose (mg/dL) 156 H 186 H (75-99) mg/dL Assessment and Plan Plan: Assessment and plan #1 cardiac arrest. Patient was noted to have ventricular fibrillation requiring defibrillation. Status post implantation of AICD Currently in normal sinus rhythm. #2 known history of coronary artery disease with prior stent placement and bypass surgery, most recent cardiac catheterization performed in June of last year which revealed 2 patent grafts, patent ADAM to the LAD, patent vein graft to the PDA, 100% vein graft to the OM. Medical therapy advised at that time. #3 hypertension #4 diabetes, #5 hyperlipidemia #6 hypertension #7 family history of premature coronary artery disease #8 hyponatremia, improving. Plan We'll discontinue the IV Lasix. Put the patient on Lasix 40 mg by mouth daily. Check lytes BUN and creatinine in the morning. DNP note has been reviewed, I agree with a documented findings and plan of care. Patient was seen and examined.
[2016-10-11 16:49] LABS: Glucose,Whole Blood 154 mg/dL (75-99)
--- NOTE | 2016-10-11 20:18 | PN ---
Patient is a 66 -year-old had a V-tach, cardiac arrest status post CPR and AICD placement and patient has ejection fraction of 25 percent. Patient heart failure is improving at this point of time. Patient sodium improved. Creatinine improved but BUN started going up. REVIEW OF SYSTEMS: CARDIOVASCULAR: No chest pain, no orthopnea, no PND, no palpitations. PULMONARY: Denied any shortness of breath. No cough or hemoptysis. GASTROINTESTINAL: No diarrhea, nausea or vomiting. No abdominal pain. Normoactive bowel sounds. NEUROLOGIC: No headaches, no weakness, no numbness. Medications were reviewed. PHYSICAL EXAMINATION: Temperature 97.2, pulse 57, respiratory rate of 18, blood pressure is 160/69, saturating at 99% on room air. GENERAL: The patient is alert and oriented x3, not in any acute distress. Well developed, well nourished. HEENT: Pupils are round and equally reacting to light. EOMI. No scleral icterus. No conjunctival pallor. Normocephalic, atraumatic. No pharyngeal erythema. No thyromegaly. CARDIOVASCULAR: S1 and S2 present. No murmurs, rubs, or gallops. PULMONARY: Chest is clear to auscultation, no wheezing or crackles. ABDOMEN: Soft, nontender, nondistended, normoactive bowel sounds. No palpable organomegaly. MUSCULOSKELETAL: No joint swelling or deformity. EXTREMITIES: No cyanosis, clubbing, or pedal edema. NEUROLOGICAL: Gross neurological examination did not reveal any focal deficits. SKIN: No rashes. LABORATORY DATA: As mentioned above. Patient's creatinine is low. Sodium is 134, BUN of 41, creatinine 1.25. ASSESSMENT AND PLAN: 1. Ventricular tachycardia status post cardiopulmonary arrest and CPR. Patient has ( ) with acute exacerbation and ejection fraction of 25 to 30%. 2. Hypovolemic hyponatremia, improved with IV Lasix. 3. Type 2 Diabetes mellitus. 4. Chest wall pain secondary to CPR. 5. Moderate aortic stenosis. 6. Acute hypoxic respiratory failure secondary to assessment #1, resolved. 7. Coronary artery disease, status post coronary artery bypass grafting. 8. Obesity with BMI of 45.3. 9. Hyperlipidemia. 10. Acute renal failure secondary to prerenal azotemia from congestive heart failure, ischemic cardiomyopathy and systolic dysfunction. Patient is clinically doing well. Continue with diuretic therapy. Patient was switched to oral diuretic therapy and if patient is clinically doing well, patient probably can be discharged home tomorrow.
[2016-10-11] MEDS: ZOLPIDEM 5 MG TAB PO PRN (21:12)
[2016-10-11] MEDS: FAMOTIDINE 20 MG TAB PO SCH (21:12)
[2016-10-11] MEDS: MONTELUKAST 10 MG TAB PO SCH (21:12)
[2016-10-11] MEDS: FLUoxetine HCL 10 MG CAP PO SCH (21:13)
[2016-10-11] MEDS: ASPIRIN 81 MG CHEW PO SCH (21:13)
[2016-10-11] MEDS: INSULIN GLARGINE 100 UNIT/ML 10 ML VIAL SQ SCH (21:13)
[2016-10-11] MEDS: ALLOPURINOL 300 MG TAB PO SCH (21:13)
[2016-10-11 21:49] LABS: Glucose,Whole Blood 171 mg/dL (75-99)
[2016-10-12] MEDS: HYDROcodone/APAP 5-325MG 1 EACH TAB PO PRN ×2 (04:28→10:29)
[2016-10-12 06:33] LABS: Glucose,Whole Blood 146 mg/dL (75-99)
[2016-10-12] MEDS: PROMETHAZ-COD 6.25-10 MG/5 ML 5 ML CUP PO PRN ×2 (07:00→14:03)
[2016-10-12] MEDS: CARVEDILOL 12.5 MG TAB PO SCH (07:00)
[2016-10-12] MEDS: INSULIN LISPRO (humaLOG) 300 UNIT/3 ML VIAL SQ SCH ×6 (07:01→17:40)
[2016-10-12 07:06] LABS: Basophils % (A) 1 %; CH 31.6; CHCM 32.8; Eosinophils # (A) 0.3 k/uL (0-0.7); Eosinophils % (A) 6 %; HCT 32.8 % (34.0-46.0); HDW 2.87; HGB 10.4 gm/dL (11.4-16.0); Luc # (Auto) 0.18; Luc % (Auto) 3; Lymphocytes # (A) 1.3 k/uL (1.0-4.8); Lymphocytes % (A) 22 %; MCH 30.6 pg (25.0-35.0); MCHC 31.7 g/dL (31.0-37.0); MCV 96.7 fL (80.0-100.0); Mean Platelet Volume 6.8; Monocytes # (A) 0.4 k/uL (0-1.0); Monocytes % (A) 6 %; Neutrophils % (A) 64 %; RBC 3.39 m/uL (3.80-5.40); RDW 14.9 % (11.5-15.5); WBC 6.2 k/uL (3.8-10.6); WBC (Perox) 6.92
[2016-10-12 07:26] LABS: Potassium 4.7 mmol/L (3.5-5.1)
[2016-10-12] MEDS: traMADol 50 MG TAB PO PRN ×2 (07:56→14:04)
[2016-10-12] MEDS: ISOSORBIDE MONONITRATE ER 30 MG TAB.ER.24H PO SCH (07:57)
[2016-10-12] MEDS: DOCUSATE 100 MG CAP PO SCH (07:57)
[2016-10-12] MEDS: guaiFENesin 600 MG TABLET.ER PO SCH (07:57)
[2016-10-12] MEDS: IPRATROPIUM-ALBUTEROL 3 ML NEB INHALATION SCH ×2 (08:11→13:11)
[2016-10-12] MEDS ORDERED: LISINOPRIL 5 MG TAB PO SCH (09:00)
[2016-10-12] MEDS ORDERED: FUROSEMIDE 40 MG TAB PO SCH (09:00)
--- NOTE | 2016-10-12 09:06 | P.PN ---
Subjective Patient is seen in follow-up for hyponatremia. Sodium level is up to 137 today. This is hypervolemic in nature and improving with IV diuresis. Her dyspnea is improved. Appetite is fair. Denies any vomiting or diarrhea. Admits to good urine output. Her weight is trending down. She does a systolic CHF with ejection fraction of 30-35%. Vital signs are stable. General: The patient appeared well nourished and normally developed. HEENT: Head exam is unremarkable. Neck is without jugular venous distension. LUNGS: Lungs are clear to auscultation and percussion. Breath sounds decreased. HEART: Rate and Rhythm are regular. First and second heart sounds normal. No murmurs, rubs or gallops. ABDOMEN: Abdominal exam reveals normal bowel sounds. Non-tender and non- distended. No evidence of peritonitis. EXTREMITITES: 1+ edema. Objective - Vital Signs Vital signs: Vital Signs Temp 97.5 F L 10/12/16 04:00 Pulse 78 10/12/16 08:12 Resp 18 10/12/16 04:00 BP 115/69 10/12/16 04:00 Pulse Ox 94 L 10/12/16 04:00 Intake & Output 10/11/16 10/12/16 10/12/16 18:59 06:59 18:59 Intake Total 300 960 Balance 300 960 Weight 94.8 kg 94.1 kg Intake: Oral 300 960 Other: Voiding Method Toilet Toilet # Voids 2 - Labs CBC & Chem 7: 10/12/16 06:03 10/12/16 06:03 Labs: Abnormal Lab Results - Last 24 Hours (Table) 10/11/16 10/11/16 10/11/16 Range/Units 11:59 16:48 21:47 RBC (3.80-5.40) m/uL Hgb (11.4-16.0) gm/dL Hct (34.0-46.0) % BUN (7-17) mg/dL Creatinine (0.52-1.04) mg/dL Glucose (74-99) mg/dL POC Glucose (mg/dL) 186 H 154 H 171 H (75-99) mg/dL 10/12/16 10/12/16 10/12/16 Range/Units 06:03 06:03 06:29 RBC 3.39 L (3.80-5.40) m/uL Hgb 10.4 L (11.4-16.0) gm/dL Hct 32.8 L (34.0-46.0) % BUN 40 H (7-17) mg/dL Creatinine 1.31 H (0.52-1.04) mg/dL Glucose 140 H (74-99) mg/dL POC Glucose (mg/dL) 146 H (75-99) mg/dL Assessment and Plan Plan: Assessment: #1. Hypervolemic hyponatremia. Improving. #2. Systolic CHF with ejection fraction of 30-35%. #3. Nonoliguric acute kidney injury secondary to cardiorenal syndrome. Creatinine stable at 1.31 today. Plan: Continue Lasix 40 mg once daily. Maintain low salt diet and 1200 mL fluid restriction. Stable to be discharged from nephrology standpoint and to follow-up as an outpatient in the next 2 weeks.
[2016-10-12 11:58] LABS: Glucose,Whole Blood 213 mg/dL (75-99)
--- NOTE | 2016-10-12 14:58 | DS ---
DATE OF ADMISSION: 10/03/2016 DATE OF DISCHARGE: FINAL DIAGNOSES: 1. Ventricular tachycardia, status post cardiopulmonary arrest and cardiopulmonary resuscitation. 2. Congestive heart failure, acute exacerbation, with acute on chronic systolic dysfunction; ejection fraction 25% to 30%. 3. Hypervolemic hyponatremia. 4. Diabetes mellitus, type 2. 5. Chest wall pain secondary to cardiopulmonary resuscitation. 6. Moderate aortic stenosis. 7. Acute hypoxic respiratory failure secondary to number 1, resolved. 8. Coronary artery disease with history of coronary artery bypass grafting. 9. Obesity; body mass index of 45.6. 10. Hyperlipidemia. 11. Acute renal failure secondary to prerenal azotemia from congestive heart failure; ischemic cardiomyopathy, systolic dysfunction. 12. FULL CODE. DISCHARGE DISPOSITION: Patient will be transferred in stable condition with guarded prognosis. Total time taken 35 minutes. HISTORY OF PRESENT ILLNESS: This 66-year-old woman with a past medical history of multiple medical problems, as mentioned earlier, was admitted with cardiopulmonary arrest, CHF, acute exacerbation, and multiple medical problems. Patient was treated symptomatically. Patient was monitored closely in ICU. Patient improved significantly. Cardiology saw the patient; 2-D echo was reviewed. Pulmonary also followed the patient. Nephrology also saw the patient from the renal point of view, which is improved at 1.31 at this time. Overall the patient improved significantly. Patient will be discharged in stable condition with guarded prognosis with the following advice and medications. On exam, vitals are stable. CARDIOVASCULAR SYSTEM: S1, S2 muffled. RESPIRATORY SYSTEM: A few scattered rhonchi. ABDOMEN: Soft. NERVOUS SYSTEM: No focal deficits. DISCHARGE ADVICES AND MEDICATIONS: 1. Diet is cardiac. 2. Activity limited until followup. 3. Follow up with Dr. Trace Christian in 1 week. 4. Follow up with Cardiology as well as Pulmonology as recommended. 5. Xanax 0.5 daily p.r.n. 6. Tylenol 650 q.6 p.r.n. 7. Zyloprim 300 mg at bedtime. 8. Ecotrin 160 mg p.o. at bedtime. 9. Qvar 2 puffs b.i.d. 10. Cepacol 1 daily q.i.d. p.r.n. 11. Coreg 12.5 mg b.i.d. 12. Prozac 10 mg at bedtime. 13. Pepcid 20 mg at bedtime. 14. Lasix 40 mg p.o. daily. 15. CBC, BMP in 2 to 3 days in the ECF. Continue to monitor. 16. Humalog scale 150 to 200, 2 units; 201 to 250, 4 units; 251 to 300, 6 units; 301 to 350, 8 units; 351 to 400, 10 units; more than 400, call. 17. Albuterol Atrovent updrafts t.i.d. and p.r.n. for shortness of breath. 18. Imdur ER 30 mg each morning. 19. Cozaar 25 mg p.o. daily. 20. Melatonin 3 mg at bedtime p.r.n. 21. Singulair 10 mg at bedtime. 22. Nitrostat 0.4 sublingually p.r.n. 23. [place]-3 fatty acids 1 capsule p.o. daily. 24. Ranexa 500 mg p.o. b.i.d. 25. Crestor 5 mg p.o. Saturday, Saturday. 26. Aldactone 25 mg p.o. daily. Hold Aldactone for now. Restart once the kidney functions are normal. 27. Guaifenesin 600 mg p.o. b.i.d. p.r.n. 28. Mucinex 600 mg p.o. b.i.d. 29. Hold Glucophage for now.
[2016-10-12 15:17] VITALS: BP 130/80; PULSE 65; TEMP 98.1
[2016-10-12 16:47] LABS: Glucose,Whole Blood 174 mg/dL (75-99)
[2016-10-12] MEDS: SODIUM CHLORIDE 0.9% 1,000 ML IV SCH (17:43)
--- NOTE | 2016-10-12 18:49 | PN ---
This patient is status post AICD placement. Patient is doing well. Her breathing is improved. Her coughing is improved significantly. The patient is afebrile. Blood pressure is 130/80 millimeters Hg. First and second heart sounds are normal. There is an ejection systolic murmur noted. Patient's creatinine is 1.31. The patient is discharged home on the medications. The patient will be followed with Dr. Christine as an outpatient.
== END 2016-10-12 17:50 | DRG 226 ==
LOC: EC 12:25 → 6ICU 13:47 → 6SEL 10-05 20:14
PROVIDERS: ADMIT Internal Medicine; ATTEND Internal Medicine
PROC: 5A12012 Performance of Cardiac Output, Single, Manual (ICD-10-PCS; 2016-10-03)
PROC: 0BH17EZ Insertion of Endotracheal Airway into Trachea, Via Natural or Artificial Opening (ICD-10-PCS; 2016-10-03)
PROC: 5A1935Z Respiratory Ventilation, Less than 24 Consecutive Hours (ICD-10-PCS; 2016-10-03)
PROC: 5A2204Z Restoration of Cardiac Rhythm, Single (ICD-10-PCS; 2016-10-03)
PROC: 02HL3KZ Insertion of Defibrillator Lead into Left Ventricle, Percutaneous Approach (ICD-10-PCS; 2016-10-05)
PROC: 0JH608Z Insertion of Defibrillator Generator into Chest Subcutaneous Tissue and Fascia, Open Approach (ICD-10-PCS; principal; 2016-10-05 07:48)
PROC: 4B02XTZ Measurement of Cardiac Defibrillator, External Approach (ICD-10-PCS; 2016-10-06)
DX: I49.01 Ventricular fibrillation (principal); J96.01 Acute respiratory failure with hypoxia; I50.23 Acute on chronic systolic (congestive) heart failure; N17.9 Acute kidney failure, unspecified; E87.1 Hypo-osmolality and hyponatremia; I13.0 Hypertensive heart and chronic kidney disease with heart failure and stage 1 through stage 4 chronic kidney disease, or unspecified chronic kidney disease; E78.5 Hyperlipidemia, unspecified; I46.2 Cardiac arrest due to underlying cardiac condition; I47.2 Ventricular tachycardia; I25.5 Ischemic cardiomyopathy; F32.9 Major depressive disorder, single episode, unspecified; E87.5 Hyperkalemia; I25.2 Old myocardial infarction; I27.2 Other secondary pulmonary hypertension; T50.2X5A Adverse effect of carbonic-anhydrase inhibitors, benzothiadiazides and other diuretics, initial encounter; I44.7 Left bundle-branch block, unspecified; J45.909 Unspecified asthma, uncomplicated; N18.9 Chronic kidney disease, unspecified; I45.4 Nonspecific intraventricular block; R74.8 Abnormal levels of other serum enzymes; E11.22 Type 2 diabetes mellitus with diabetic chronic kidney disease; I08.0 Rheumatic disorders of both mitral and aortic valves; I25.10 Atherosclerotic heart disease of native coronary artery without angina pectoris; R07.89 Other chest pain; E87.70 Fluid overload, unspecified; K59.00 Constipation, unspecified; M48.00 Spinal stenosis, site unspecified; M19.90 Unspecified osteoarthritis, unspecified site; R29.6 Repeated falls; M10.9 Gout, unspecified; Z87.01 Personal history of pneumonia (recurrent); Z96.611 Presence of right artificial shoulder joint; Z79.899 Other long term (current) drug therapy; Z79.4 Long term (current) use of insulin; Z82.49 Family history of ischemic heart disease and other diseases of the circulatory system; Z95.5 Presence of coronary angioplasty implant and graft; Z95.1 Presence of aortocoronary bypass graft; Z87.09 Personal history of other diseases of the respiratory system; Z91.81 History of falling; Z90.49 Acquired absence of other specified parts of digestive tract; Z86.19 Personal history of other infectious and parasitic diseases; Z88.1 Allergy status to other antibiotic agents; Z88.2 Allergy status to sulfonamides; Z88.8 Allergy status to other drugs, medicaments and biological substances; Z79.84 Long term (current) use of oral hypoglycemic drugs; Z79.82 Long term (current) use of aspirin
CPT/HCPCS: 33262; 36415; 71010; 71020; 71110; 80048; 80053; 80061; 82550; 82553; 83735; 83880; 83935; 84100; 84295; 84300; 84484; 85025; 85610; 85730; 93005; 93306; 94640; 94760; 96365; 96375; 99291

== ENCOUNTER 2016-11-06 05:56 | Day surgery (SDC) | payer MEDICARE ==
[2016-11-01 14:22] VITALS: BMI 39.9
[2016-11-06] MEDS ORDERED: SODIUM CHLORIDE 0.9% 500 ML IV ONE (06:30)
[2016-11-06 06:35] VITALS: RESP 16; TEMP 98
[2016-11-06 06:49] LABS: Glucose,Whole Blood 120 mg/dL (75-99)
[2016-11-06 08:09] LABS: Glucose,Whole Blood 131 mg/dL (75-99)
[2016-11-06] MEDS ORDERED: fentaNYL (PF) 50 MCG/ML 2 ML AMP ONE (08:16)
[2016-11-06] MEDS ORDERED: MIDAZOLAM 2 MG/2 ML VIAL ONE (08:17)
[2016-11-06] MEDS ORDERED: BENZOCAINE SPRAY 100 APPLIC/CAN MUCOUS MEM ONE ×3 (08:29→08:39)
[2016-11-06] MEDS ORDERED: fentaNYL (PF) 50 MCG/ML 2 ML AMP IV ONE (08:29)
[2016-11-06] MEDS: MIDAZOLAM 2 MG/2 ML VIAL IVP ONE ×2 (08:32→08:38)
[2016-11-06] MEDS ORDERED: traMADol 50 MG TAB PO PRN (09:01)
[2016-11-06] MEDS ORDERED: ACETAMINOPHEN TAB 325 MG TAB PO PRN (09:01)
[2016-11-06] MEDS ORDERED: NITROGLYCERIN SL TABS 0.4 MG TAB SUBLINGUAL PRN (09:01)
[2016-11-06] MEDS ORDERED: PROM-PHEN-COD 6.25-5-10MG/5ML 5 ML CUP PO PRN (09:01)
[2016-11-06] MEDS ORDERED: ALPRAZolam 0.25 MG TAB PO PRN (09:01)
[2016-11-06] MEDS ORDERED: FUROSEMIDE 20 MG TAB PO PRN (09:01)
[2016-11-06] MEDS ORDERED: guaiFENesin SYRUP 100MG/5ML 200 MG/10 ML CUP PO PRN (09:01)
[2016-11-06] MEDS ORDERED: SODIUM CHLORIDE 0.9% 1,000 ML IV SCH (09:15)
[2016-11-06 09:41] VITALS: BP 106/48; PULSE 60
--- NOTE | 2016-11-06 09:49 | ECHOT ---
DATE OF SERVICE: INDICATION: Evaluation of aortic valve. PROCEDURE: After explaining the procedure, the patient's risk and complications, blood pressure, heart rate, O2 saturation was monitored. She received fentanyl and Versed. After obtaining moderate, sedated state, the probe was introduced into the esophagus without difficulty. Images were obtained. Following that, the probe was removed. There was no immediate complication. FINDINGS: Left atrial size is dilated. Left atrial appendage is normal. Left ventricular size is normal. There is evidence of anteroapical anteroseptal akinesis. The estimated ejection fraction is 35% to 40%. The aortic valve with fibrocalcific change of the aortic cusp with reduced opening. By planimetry the valve area is about 1.2 cm2. The mitral valve appears to be normal. Tricuspid valve is normal. Descending thoracic aortic was not well visualized. No pericardial effusion was noted. Contrast bubble study revealed no evidence of shunting across the interatrial septum. Wire was noted in the right ventricle. Doppler pulse wave obtained and revealed a mild to moderate mitral with moderate tricuspid regurgitation. The estimated right ventricular systolic pressure was 55 mmHg. There is no shunting across the interatrial septum. CONCLUSION: 1. Dilated left atrium. 2. Normal left ventricular size with moderately severely impaired left ventricular systolic function. 3. Moderate aortic stenosis. 4. Mild to moderate mitral with moderate tricuspid regurgitation with moderate pulmonary hypertension. 5. A wire was noted in the right ventricle. 6. There was no shunting across the interatrial septum.
[2016-11-06] MEDS ORDERED: ALBUTEROL NEBULIZED 2.5 MG/3 ML INHALATION SCH (13:00)
[2016-11-06] MEDS ORDERED: CARVEDILOL 12.5 MG TAB PO SCH (17:30)
[2016-11-06] MEDS ORDERED: BECLOMETHASONE DIP 80 MCG/PUFF INHALER INHALATION SCH (20:00)
[2016-11-06] MEDS ORDERED: ASPIRIN 81 MG CHEW PO SCH (21:00)
[2016-11-06] MEDS ORDERED: MONTELUKAST 10 MG TAB PO SCH (21:00)
[2016-11-06] MEDS ORDERED: ALLOPURINOL 300 MG TAB PO SCH (21:00)
[2016-11-06] MEDS ORDERED: INSULIN GLARGINE 100 UNIT/ML 10 ML VIAL SQ SCH (21:00)
[2016-11-06] MEDS ORDERED: RANOLAZINE 500 MG TAB.ER.12H PO SCH (21:00)
[2016-11-06] MEDS ORDERED: FAMOTIDINE 20 MG TAB PO SCH (21:00)
[2016-11-06] MEDS ORDERED: SENNOSIDES-DOCUSATE SODIUM 1 EACH TAB PO SCH (21:00)
[2016-11-07] MEDS ORDERED: DOCUSATE 100 MG CAP PO SCH (09:00)
[2016-11-07] MEDS ORDERED: ATORVASTATIN 10 MG TAB PO SCH (09:00)
[2016-11-07] MEDS ORDERED: OMEGA PO SCH (09:00)
[2016-11-07] MEDS ORDERED: ISOSORBIDE MONONITRATE ER 30 MG TAB.ER.24H PO SCH (09:00)
[2016-11-07] MEDS ORDERED: FATTY ACIDS PO SCH (09:00)
[2016-11-07] MEDS ORDERED: SPIRONOLACTONE 25 MG TAB PO SCH (09:00)
[2016-11-07] MEDS ORDERED: LOSARTAN 25 MG TAB PO SCH (09:00)
[2016-11-07] MEDS ORDERED: FLUoxetine HCL 20 MG CAP PO SCH (09:00)
[2016-11-07] MEDS ORDERED: FISH OIL PO SCH (09:00)
== END 2016-11-06 10:49 | disposition home or self-care (01) ==
LOC: CATHCVL 05:56
PROVIDERS: ATTEND Internal Medicine Interventional Cardiology
DX: I08.3 Combined rheumatic disorders of mitral, aortic and tricuspid valves (principal); I51.7 Cardiomegaly; I25.5 Ischemic cardiomyopathy; Z95.1 Presence of aortocoronary bypass graft; Z95.810 Presence of automatic (implantable) cardiac defibrillator; E78.2 Mixed hyperlipidemia; E11.9 Type 2 diabetes mellitus without complications; R06.00 Dyspnea, unspecified; R07.89 Other chest pain; Z86.74 Personal history of sudden cardiac arrest; I10 Essential (primary) hypertension; I25.10 Atherosclerotic heart disease of native coronary artery without angina pectoris; Z95.5 Presence of coronary angioplasty implant and graft; Z82.49 Family history of ischemic heart disease and other diseases of the circulatory system; Z79.4 Long term (current) use of insulin; Z79.82 Long term (current) use of aspirin; Z79.51 Long term (current) use of inhaled steroids; Z79.899 Other long term (current) drug therapy; Z88.1 Allergy status to other antibiotic agents; Z88.2 Allergy status to sulfonamides
CPT/HCPCS: 93312; 93320; 93325; 99152; 99153; J2250; J3010

== ENCOUNTER → 2016-12-24 | Outpatient (CLI) | payer MEDICARE ==
[2016-12-24 11:50] LABS: Calcium 10.4 mg/dL (8.4-10.2); Potassium 5.4 mmol/L (3.5-5.1); Total Bilirubin 0.9 mg/dL (0.2-1.3)
[2016-12-24 16:25] LABS: Hemoglobin A1C 7.9 % (4.2-6.1)
== END | disposition home or self-care (01) ==
LOC: LABWHC1 10:47
PROVIDERS: ATTEND Internal Medicine Interventional Cardiology
DX: E78.2 Mixed hyperlipidemia (principal); E11.65 Type 2 diabetes mellitus with hyperglycemia
CPT/HCPCS: 36415; 80053; 80061; 82043; 83036; 84443

== ENCOUNTER → 2017-08-26 | Outpatient (CLI) | payer MEDICARE ==
[2017-08-26 13:18] LABS: Albumin 3.8 g/dL (3.5-5.0); Calcium 10.3 mg/dL (8.4-10.2); Potassium 5.2 mmol/L (3.5-5.1); Total Bilirubin 0.6 mg/dL (0.2-1.3); Total Protein 6.1 g/dL (6.3-8.2)
== END | disposition home or self-care (01) ==
LOC: LABWHC1 12:32
PROVIDERS: ATTEND Internal Medicine Interventional Cardiology
DX: E78.2 Mixed hyperlipidemia (principal)
CPT/HCPCS: 36415; 80053; 80061

== ENCOUNTER 2018-01-20 14:44 | Emergency (ER) | payer MEDICARE ==
[2018-01-20 14:48] VITALS: TEMP 98.5
[2018-01-20] MEDS ORDERED: SODIUM CHLORIDE 0.9% 500 ML IV ONE (15:17)
[2018-01-20] MEDS ORDERED: HYDROcodone/APAP 5-325MG 1 EACH TAB PO STA (15:17)
--- NOTE | 2018-01-20 15:22 | ED ---
Back Pain [facility] - General Chief Complaint: Back Pain/Injury Stated Complaint: Back Pain Time Seen by Provider: 01/20/18 14:50 Source: patient Limitations: no limitations - History of Present Illness Initial Comments: Patient is a 67-year-old female who presents with a chief complaint of right- sided lower back pain. The patient characterizes the pain as sharp and aching. She cannot identify an inciting incident. Her pain is worse with movement, specifically bending and twisting. Alleviating factors are rest, the patient states that she took Sebastian and Motrin today with some relief. Patient denies radiation of the pain. Patient has a medical history of an [place], and aortic valve regurgitation. She denies any chest pain, shortness of breath, fever, abdominal pain, nausea or vomiting. MD Complaint: back pain - Related Data Home Medications Medication Instructions Recorded Confirmed Allopurinol [Zyloprim] 300 mg PO HS 06/20/16 01/20/18 Aspirin EC [Ecotrin Low Dose] 162 mg PO HS 06/20/16 01/20/18 Carvedilol [Coreg] 12.5 mg PO BID 06/20/16 01/20/18 Famotidine [Pepcid] 20 mg PO HS 06/20/16 01/20/18 INSULIN LISPRO (humaLOG) [humaLOG] See Protocol SQ ACHS 06/20/16 01/20/18 Insulin Glargine [Lantus] 20 unit SQ HS 06/20/16 01/20/18 Montelukast [Singulair] 10 mg PO HS 06/20/16 01/20/18 Rosuvastatin Calcium [Crestor] 5 mg PO HS 06/20/16 01/20/18 FLUoxetine HCL [PROzac] 20 mg PO DAILY 10/03/16 01/20/18 Isosorbide Mononitrate ER [Imdur] 30 mg PO QAM 10/03/16 01/20/18 Docusate [Colace] 100 - 200 mg PO QAM 11/01/16 01/20/18 Furosemide [Lasix] 20 mg PO BID 11/01/16 01/20/18 Losartan [Cozaar] 25 mg PO DAILY 11/01/16 01/20/18 traMADol HCL [Ultram] 50 mg PO Q6HR PRN 11/06/16 01/20/18 Biotin 10,000 mcg PO DAILY 01/20/18 01/20/18 Fish Oil/Dha/Epa [Fish Oil 1,200 1 cap PO AC-SUPPER 01/20/18 01/20/18 mg Fish Oil] HYDROcodone/APAP 5-325MG [Sebastian 1 tab PO Q4HR PRN 01/20/18 01/20/18 5-325] Ibuprofen [Motrin Ib] 200 - 800 mg PO TID PRN 01/20/18 01/20/18 Loratadine [Claritin] 10 mg PO HS 01/20/18 01/20/18 metFORMIN HCL [metFORMIN HCL ER] 750 mg PO AC-SUPPER 01/20/18 01/20/18 Previous Rx's Medication Instructions Recorded Ranolazine [Ranexa] 500 mg PO Q12HR #60 tab.er.12h 06/24/16 ALPRAZolam [Xanax] 0.25 mg PO DAILY PRN #20 tab 10/12/16 Levofloxacin [Levaquin] 750 mg PO DAILY #5 tab 01/20/18 Allergies Allergy/AdvReac Type Severity Reaction Status Date / Time amoxicillin [From Augmentin] Allergy Rash/Hives Verified 01/20/18 16:12 cefprozil [From Cefzil] Allergy Rash/Hives Verified 01/20/18 16:12 clavulanic acid Allergy Rash/Hives Verified 01/20/18 16:12 [From Augmentin] sulfamethoxazole Allergy Rash/Hives Verified 01/20/18 16:12 [From Bactrim] trimethoprim [From Bactrim] Allergy Rash/Hives Verified 01/20/18 16:12 Review of Systems ROS Statement: Those systems with pertinent positive or pertinent negative responses have been documented in the HPI. ROS Other: All systems not noted in ROS Statement are negative. Musculoskeletal: Reports: back pain Past Medical History Past Medical History: Asthma, Coronary Artery Disease (CAD), Chest Pain / Angina , Heart Failure, Diabetes Mellitus, Hyperlipidemia, Hypertension, Myocardial Infarction ([place]), Osteoarthritis (OA), Pneumonia, Syncope Additional Past Medical History / Comment(s): Mi X3,GOUT, SPINAL STENOSIS(HAS HAS SX), BRONCHITIS, CONSTIPATION(LAST BM 10-03-16), FEW FALLS LATELY"DIZZY AT TIMES". 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 3 C-SECTIONS, OVARIAN CYST(RT), DENTAL IMPLANT(LOWER), RT SHOULDER REPLACMENT Past Anesthesia/Blood Transfusion Reactions: No Reported Reaction Additional Past Anesthesia/Blood Transfusion Reaction / Comment(s): BLOOD TRANSFUSION AFTER SHOULDER SX- NO REACTION. Type of Cardiac Device: AICD Device Placement Date:: 10-05-16 chest Enlightened Lifestyle Past Psychological History: Depression Smoking Status: Never smoker Past Alcohol Use History: Occasional Past Drug Use History: None Reported - Past Family History Father Family Medical History: Coronary Artery Disease (CAD), Hypertension, Myocardial Infarction ([place]) Additional Family Medical History / Comment(s): Open heart, hypoglycemia, kidney stones Mother Family Medical History: Coronary Artery Disease (CAD), Hypertension, Myocardial Infarction ([place]) Additional Family Medical History / Comment(s): open heart surg, siatic nerve issues General Exam Limitations: no limitations General appearance: alert, in no apparent distress Head exam: Present: atraumatic, normocephalic Eye exam: Present: normal appearance ENT exam: Present: normal exam Neck exam: Present: normal inspection Respiratory exam: Present: normal lung sounds bilaterally. Absent: respiratory distress, wheezes Cardiovascular Exam: Present: regular rate, normal rhythm GI/Abdominal exam: Present: soft, other (patient has some reproduction of back pain with palpation of the abdomen. no pulsitile masses appreciated, physical exam limited by body habitus ). Absent: distended, tenderness Rectal exam: Present: deferred Extremities exam: Present: normal inspection, other (2+ pulses bilaterally in the upper and lower extremities) Back exam: Present: paraspinal tenderness. Absent: CVA tenderness (R), CVA tenderness (L), vertebral tenderness Neurological exam: Present: alert, oriented X3 Psychiatric exam: Present: normal affect, normal mood Skin exam: Present: warm, dry, intact Course Vital Signs 01/20/18 14:47 Temperature 98.5 F Pulse Rate 63 Respiratory 20 Rate Blood Pressure 133/78 O2 Sat by Pulse 97 Oximetry Medical Decision Making - Medical Decision Making Patient presents with a chief complaint of right-sided back pain. On initial evaluation, vitals are stable, patient in no acute distress. patient to be evaluated with basic labs and cardiac enzymes. urinalysis was sent, patient will have a CT scan w/ or w/o contrast depending on urinalysis. considerations include likely MSK back pain vs. kidney stone, vs. aortic pathology. EKG performed at 3:30 PM shows normal sinus rhythm with a rate of 64 bpm. EKG is otherwise unremarkable. 6:13 PM Lab evaluation of this patient is unremarkable. Urinalysis shows evidence of infection with hematuria. Patient was sent for a computed tomography scan to evaluate for renal stones. CT does not reveal any obstructive uropathy, there are no other intra-abdominal processes at this time. I discussed the results with the patient. Patient will be prescribed Levaquin for treatment of pyelonephritis given her flank pain. She was instructed to follow-up with primary care in 1-2 days, continue taking pain medication as prescribed, and return to the emergency department if symptoms worsen or change. - Lab Data Result diagrams: 01/20/18 15:42 01/20/18 15:42 Lab Results 01/20/18 01/20/18 01/20/18 Range/Units 15:42 15:42 15:42 WBC 7.0 (3.8-10.6) k/uL RBC 4.32 (3.80-5.40) m/uL Hgb 13.2 (11.4-16.0) gm/dL Hct 39.4 (34.0-46.0) % MCV 91.4 (80.0-100.0) fL MCH 30.5 (25.0-35.0) pg MCHC 33.4 (31.0-37.0) g/dL RDW 14.3 (11.5-15.5) % Plt Count 224 (150-450) k/uL Neutrophils % 69 % Lymphocytes % 20 % Monocytes % 5 % Eosinophils % 4 % Basophils % 1 % Neutrophils # 4.9 (1.3-7.7) k/uL Lymphocytes # 1.4 (1.0-4.8) k/uL Monocytes # 0.3 (0-1.0) k/uL Eosinophils # 0.3 (0-0.7) k/uL Basophils # 0.0 (0-0.2) k/uL Sodium 137 (137-145) mmol/L Potassium 4.6 (3.5-5.1) mmol/L Chloride 106 (98-107) mmol/L Carbon Dioxide 19 L (22-30) mmol/L Anion Gap 12 mmol/L BUN 29 H (7-17) mg/dL Creatinine 1.20 H (0.52-1.04) mg/dL Est GFR (CKD-EPI)AfAm 55 (>60 ml/min/1.73 sqM) Est GFR (CKD-EPI)NonAf 47 (>60 ml/min/1.73 sqM) Glucose 197 H (74-99) mg/dL Calcium 10.2 (8.4-10.2) mg/dL Troponin I (0.000-0.034) ng/mL NT-Pro-B Natriuret Pep 289 pg/mL Urine Color Urine Appearance (Clear) Urine pH (5.0-8.0) Ur Specific [place] (1.001-1.035) Urine Protein (Negative) Urine Glucose (UA) (Negative) Urine Ketones (Negative) Urine Blood (Negative) Urine Nitrite (Negative) Urine Bilirubin (Negative) Urine Urobilinogen (<2.0) mg/dL Ur Leukocyte Esterase (Negative) Urine RBC (0-5) /hpf Urine WBC (0-5) /hpf Urine WBC Clumps (None) /hpf Ur Squamous Epith Cells (0-4) /hpf Urine Bacteria (None) /hpf Hyaline Casts (0-2) /lpf Urine Mucus (None) /hpf 01/20/18 01/20/18 Range/Units 15:42 16:01 WBC (3.8-10.6) k/uL RBC (3.80-5.40) m/uL Hgb (11.4-16.0) gm/dL Hct (34.0-46.0) % MCV (80.0-100.0) fL MCH (25.0-35.0) pg MCHC (31.0-37.0) g/dL RDW (11.5-15.5) % Plt Count (150-450) k/uL Neutrophils % % Lymphocytes % % Monocytes % % Eosinophils % % Basophils % % Neutrophils # (1.3-7.7) k/uL Lymphocytes # (1.0-4.8) k/uL Monocytes # (0-1.0) k/uL Eosinophils # (0-0.7) k/uL Basophils # (0-0.2) k/uL Sodium (137-145) mmol/L Potassium (3.5-5.1) mmol/L Chloride (98-107) mmol/L Carbon Dioxide (22-30) mmol/L Anion Gap mmol/L BUN (7-17) mg/dL Creatinine (0.52-1.04) mg/dL Est GFR (CKD-EPI)AfAm (>60 ml/min/1.73 sqM) Est GFR (CKD-EPI)NonAf (>60 ml/min/1.73 sqM) Glucose (74-99) mg/dL Calcium (8.4-10.2) mg/dL Troponin I <0.012 (0.000-0.034) ng/mL NT-Pro-B Natriuret Pep pg/mL Urine Color Yellow Urine Appearance Cloudy H (Clear) Urine pH 5.0 (5.0-8.0) Ur Specific [place] 1.009 (1.001-1.035) Urine Protein Negative (Negative) Urine Glucose (UA) Negative (Negative) Urine Ketones Negative (Negative) Urine Blood Small H (Negative) Urine Nitrite Negative (Negative) Urine Bilirubin Negative (Negative) Urine Urobilinogen <2.0 (<2.0) mg/dL Ur Leukocyte Esterase Large H (Negative) Urine RBC 7 H (0-5) /hpf Urine WBC 85 H (0-5) /hpf Urine WBC Clumps Few H (None) /hpf Ur Squamous Epith Cells 3 (0-4) /hpf Urine Bacteria Rare H (None) /hpf Hyaline Casts 24 H (0-2) /lpf Urine Mucus Rare H (None) /hpf Disposition Clinical Impression: Pyelonephritis Disposition: HOME SELF-CARE Condition: Good Instructions: Kidney Infection (ED) Prescriptions: Levofloxacin [Levaquin] 750 mg PO DAILY #5 tab Is patient prescribed a controlled substance at d/c from ED?: No Referrals: Trace Christian MD [Primary Care Provider] - 1-2 days
[2018-01-20 15:51] LABS: Basophils % (A) 1 %; Eosinophils # (A) 0.3 k/uL (0-0.7); Eosinophils % (A) 4 %; HCT 39.4 % (34.0-46.0); HGB 13.2 gm/dL (11.4-16.0); Lymphocytes # (A) 1.4 k/uL (1.0-4.8); Lymphocytes % (A) 20 %; MCH 30.5 pg (25.0-35.0); MCHC 33.4 g/dL (31.0-37.0); MCV 91.4 fL (80.0-100.0); Mean Platelet Volume 7.1; Monocytes # (A) 0.3 k/uL (0-1.0); Monocytes % (A) 5 %; Neutrophils # (A) 4.9 k/uL (1.3-7.7); Neutrophils % (A) 69 %; Platelet Count 224 k/uL (150-450); RBC 4.32 m/uL (3.80-5.40); RDW 14.3 % (11.5-15.5)
[2018-01-20 16:04] LABS: Calcium 10.2 mg/dL (8.4-10.2); Potassium 4.6 mmol/L (3.5-5.1)
[2018-01-20 16:09] LABS: Appearance,Urine Cloudy (Clear); Bacteria,Urine Rare /hpf; Bilirubin,Urine Negative (Negative); Blood,Urine Small (Negative); Color,Urine Yellow; Glucose,Urine (UA) Negative (Negative); Hyaline Casts,Urine 24 /lpf (0-2); Ketones,Urine Negative (Negative); Leukocyte Esterase,Urine Large (Negative); Mucus,Urine Rare /hpf; Nitrite,Urine Negative (Negative); Protein,Urine Negative (Negative); RBC,Urine 7 /hpf (0-5); Specific Gravity,Urine 1.009 (1.001-1.035); Squamous Epithelial Cell,Urine 3 /hpf (0-4); Urobilinogen,Urine <2.0 mg/dL (<2.0); WBC,Urine 85 /hpf (0-5)
--- NOTE | 2018-01-20 17:32 | CT ---
EXAMINATION TYPE: CT renal stones wo con DATE OF EXAM: 01/20/2018 HISTORY: Right side flank pain. CT DLP: 1122.4 mGycm. Automated Exposure Control for Dose Reduction was Utilized. TECHNIQUE: CT scan of the abdomen and pelvis is performed without oral or IV contrast. COMPARISON: NONE Lung bases are clear. There is no pleural effusion. There is no pericardial effusion. Liver spleen pancreas gallbladder appear normal. Bile ducts are not dilated. There is no adrenal mass. Kidneys have normal size and contour. There is no hydronephrosis. There is a 12 mm calculus in the lower pole left kidney. There is no evidence of a renal mass. Ureters are not dilated. Abdominal aorta is atheromatous. There is no retroperitoneal adenopathy. Appendix is not se en. There is no sign of appendicitis. Uterus is anteverted. Bladder distends smoothly. There is no ev idence of a pelvic mass. There is posterior fusion surgery at L4-S1. There is mild anterior subluxati on of L3 in relation L4 of 6 mm. There is moderate disc space narrowing and spur formation from L2 to S1. There is anterior bridging osteophyte formation in the lower thoracic spine. IMPRESSION: Nonobstructing left renal calculus. Appendix is not seen. No sign of appendicitis. Degenerative first -degree L3-4 spondylolisthesis. There is a mild concentric lateral disc herniation at L3-4 on the rig ht side. There is slight neural foraminal narrowing. This could be a cause for right flank pain. No r enal obstruction.
[2018-01-20 18:14] VITALS: BP 125/58; PULSE 60; RESP 18
== END 2018-01-20 18:29 | disposition home or self-care (01) ==
LOC: EC 14:44
DX: N12 Tubulo-interstitial nephritis, not specified as acute or chronic (principal); J45.909 Unspecified asthma, uncomplicated; I25.10 Atherosclerotic heart disease of native coronary artery without angina pectoris; I11.0 Hypertensive heart disease with heart failure; I50.9 Heart failure, unspecified; E11.9 Type 2 diabetes mellitus without complications; E78.5 Hyperlipidemia, unspecified; I25.2 Old myocardial infarction; F32.9 Major depressive disorder, single episode, unspecified; M10.9 Gout, unspecified; Z95.810 Presence of automatic (implantable) cardiac defibrillator; Z98.890 Other specified postprocedural states; Z95.1 Presence of aortocoronary bypass graft; Z96.611 Presence of right artificial shoulder joint; Z79.82 Long term (current) use of aspirin; Z79.02 Long term (current) use of antithrombotics/antiplatelets; Z79.4 Long term (current) use of insulin; Z79.899 Other long term (current) drug therapy; Z88.0 Allergy status to penicillin; Z88.1 Allergy status to other antibiotic agents; Z88.2 Allergy status to sulfonamides
CPT/HCPCS: 36415; 74150; 80048; 81001; 83880; 84484; 85025; 93005; 99284

== ENCOUNTER 2018-01-27 12:56 | Emergency (ER) | payer MEDICARE ==
[2018-01-27 15:15] LABS: Basophils % (A) 0 %; Eosinophils # (A) 0.1 k/uL (0-0.7); Eosinophils % (A) 1 %; HCT 41.5 % (34.0-46.0); HGB 13.9 gm/dL (11.4-16.0); Lymphocytes % (A) 20 %; MCH 31.4 pg (25.0-35.0); MCHC 33.6 g/dL (31.0-37.0); MCV 93.6 fL (80.0-100.0); Mean Platelet Volume 7.1; Monocytes # (A) 0.6 k/uL (0-1.0); Monocytes % (A) 6 %; Neutrophils % (A) 71 %; Platelet Count 222 k/uL (150-450); RBC 4.43 m/uL (3.80-5.40); RDW 14.8 % (11.5-15.5); WBC 9.9 k/uL (3.8-10.6)
[2018-01-27 15:26] LABS: Albumin 4.7 g/dL (3.5-5.0); Calcium 10.6 mg/dL (8.4-10.2); Potassium 3.8 mmol/L (3.5-5.1); Total Bilirubin 0.7 mg/dL (0.2-1.3); Total Protein 7.1 g/dL (6.3-8.2)
[2018-01-27] MEDS ORDERED: IOPAMIDOL-300 CONTRAST 30 ML VIAL (ORAL USE) PO PRN (15:51)
[2018-01-27] MEDS ORDERED: FAMOTIDINE 20 MG/2 ML VIAL IV STA (15:52)
[2018-01-27] MEDS ORDERED: ONDANSETRON 4 MG/2 ML VIAL IVP STA (15:52)
[2018-01-27] MEDS ORDERED: SUCRALFATE 1 GM TAB PO STA (15:52)
[2018-01-27] MEDS ORDERED: MAG HYDROX/AL HYDROX/SIMETH 30 ML CUP PO PRN (15:52)
--- NOTE | 2018-01-27 16:29 | XR ---
EXAMINATION TYPE: Acute abdominal series DATE OF EXAM: 01/27/2018 COMPARISON: Correlation CT 01/20/2018 HISTORY: 67-year-old female right upper quadrant and epigastric pain TECHNIQUE: 4 views FINDINGS: Frontal view of the chest shows normal heart size. No consolidation or pleural effusion. There is madelyn e nodularity at the right midlung that could represent superimposition shadow. Left anterior chest wall AICD generator with right ventricular lead. Median sternotomy wires are pres ent. Partially visualized reverse right total shoulder arthroplasty. No evidence for free intraperitoneal air. No dilated small bowel or air-fluid levels. No significant stool burden. There is a 1.2 cm calculus in the left mid abdomen as well as the 1.4 cm ovoid density in the left pa ramedian pelvis. Lower lumbar fusion hardware. IMPRESSION: 1. 1.2 cm left-sided renal calculus as seen on the 01/20/2018 CT. 2. No evidence for free air or bowel obstruction. 3. 1.5 cm nodularity at the right midlung could represent superimposition shadow. Recommend nonemerge nt follow-up CT chest to exclude underlying pulmonary nodule.
[2018-01-27 17:46] LABS: Appearance,Urine Clear (Clear); Bacteria,Urine Moderate /hpf; Bilirubin,Urine Negative (Negative); Blood,Urine Negative (Negative); Color,Urine Yellow; Glucose,Urine (UA) Negative (Negative); Hyaline Casts,Urine 21 /lpf (0-2); Ketones,Urine Negative (Negative); Leukocyte Esterase,Urine Small (Negative); Mucus,Urine Rare /hpf; Nitrite,Urine Negative (Negative); PH, Urine 5.5 (5.0-8.0); Protein,Urine Negative (Negative); RBC,Urine 4 /hpf (0-5); Specific Gravity,Urine 1.012 (1.001-1.035); Squamous Epithelial Cell,Urine <1 /hpf (0-4); Urobilinogen,Urine <2.0 mg/dL (<2.0); WBC,Urine 8 /hpf (0-5)
--- NOTE | 2018-01-27 18:12 | CT ---
EXAMINATION TYPE: CT abdomen pelvis w con DATE OF EXAM: 01/27/2018 COMPARISON: NONE HISTORY: Right upper quadrant abdominal pain, distention, nausea and vomiting. CT DLP: 1824.1 mGycm Automated exposure control for dose reduction was used. TECHNIQUE: Helical acquisition of images was performed from the lung bases through the pelvis. CONTRAST: Performed with Oral Contrast and with IV Contrast, patient injected with 80ml mL of Isovue M300. FINDINGS: Lung bases are clear. There is no pleural effusion. Liver spleen pancreas gallbladder appear normal. Bile ducts are not dilated. There is no adrenal mass . There is a 1 cm calculus in the lower pole left kidney. There is no hydronephrosis. Ureters are not dilated. There is no retroperitoneal adenopathy. Abdominal aorta shows mild atheromatous change. Mckinley dder distends smoothly. Bladder is almost empty. Uterus is slightly retroverted. There is posterior f usion surgery in the lumbar spine from L4 to S1. There is 5 mm anterior subluxation of L3 in relation to L4. There is no spondylolysis. There is no compression fracture. There is no sign of pneumoperitoneum. There is no ascites. Appendix is not seen. There is no sign of appendicitis. I see no intestinal wall thickening. There is no evidence of a bowel obstruction. IMPRESSION: NONOBSTRUCTING LEFT RENAL CALCULUS. DEGENERATIVE FIRST-DEGREE L 3 4 SPONDYLOLISTHESIS. MODERATE SPONDYLOTIC CHANGE AT L3-4. ABDOMEN AND P CARMELINA APPEAR UNCHANGED COMPARED TO LAST EXAM.
--- NOTE | 2018-01-27 18:40 | ED ---
General Adult HPI - General Chief complaint: Urogenital Stated complaint: kidney stone Time Seen by Provider: 01/27/18 15:38 Source: patient Mode of arrival: wheelchair Limitations: no limitations - History of Present Illness Initial comments: Patient is a 67-year-old female who presents with a chief complaint of abdominal pain. This has been going on for several days. Recently saw this patient in the emergency department and she was treated for pyelonephritis. Since then, her urinary symptoms have resolved however she is now having epigastric pain and bloating. She cannot identify an inciting incident. She thinks it may be from the baclofen that she was recently started on. Patient denies any aggravating or alleviating factors. Timing is constant. - Related Data Home Medications Medication Instructions Recorded Confirmed Allopurinol [Zyloprim] 300 mg PO HS 06/20/16 01/27/18 Aspirin EC [Ecotrin Low Dose] 162 mg PO HS 06/20/16 01/27/18 Carvedilol [Coreg] 12.5 mg PO BID 06/20/16 01/27/18 Famotidine [Pepcid] 20 mg PO HS 06/20/16 01/27/18 INSULIN LISPRO (humaLOG) [humaLOG] See Protocol SQ ACHS 06/20/16 01/27/18 Insulin Glargine [Lantus] 20 unit SQ HS 06/20/16 01/27/18 Montelukast [Singulair] 10 mg PO HS 06/20/16 01/27/18 Rosuvastatin Calcium [Crestor] 5 mg PO HS 06/20/16 01/27/18 FLUoxetine HCL [PROzac] 20 mg PO DAILY 10/03/16 01/27/18 Isosorbide Mononitrate ER [Imdur] 30 mg PO QAM 10/03/16 01/27/18 Docusate [Colace] 100 - 200 mg PO QAM 11/01/16 01/27/18 Furosemide [Lasix] 40 mg PO DAILY 11/01/16 01/27/18 Losartan [Cozaar] 25 mg PO DAILY 11/01/16 01/27/18 traMADol HCL [Ultram] 50 mg PO Q6HR PRN 11/06/16 01/27/18 Biotin 10,000 mcg PO DAILY 01/20/18 01/27/18 Fish Oil/Dha/Epa [Fish Oil 1,200 1 cap PO AC-SUPPER 01/20/18 01/27/18 mg Fish Oil] Ibuprofen [Motrin Ib] 200 - 800 mg PO TID PRN 01/20/18 01/27/18 Loratadine [Claritin] 10 mg PO HS 01/20/18 01/27/18 metFORMIN HCL [metFORMIN HCL ER] 750 mg PO AC-SUPPER 01/20/18 01/27/18 Beclomethasone Dipropionate [Qvar 1 puff INHALATION RT-BID 01/27/18 01/27/18 80 mcg] Previous Rx's Medication Instructions Recorded Ranolazine [Ranexa] 500 mg PO Q12HR #60 tab.er.12h 06/24/16 ALPRAZolam [Xanax] 0.25 mg PO DAILY PRN #20 tab 10/12/16 Magnesium Citrate 592 ml PO ONCE #2 bottle 01/27/18 Allergies Allergy/AdvReac Type Severity Reaction Status Date / Time amoxicillin [From Augmentin] Allergy Rash/Hives Verified 01/27/18 15:58 cefprozil [From Cefzil] Allergy Rash/Hives Verified 01/27/18 15:58 clavulanic acid Allergy Rash/Hives Verified 01/27/18 15:58 [From Augmentin] sulfamethoxazole Allergy Rash/Hives Verified 01/27/18 15:58 [From Bactrim] trimethoprim [From Bactrim] Allergy Rash/Hives Verified 01/27/18 15:58 Review of Systems ROS Statement: Those systems with pertinent positive or pertinent negative responses have been documented in the HPI. ROS Other: All systems not noted in ROS Statement are negative. Gastrointestinal: Reports: abdominal pain, other (Bloating) Past Medical History Past Medical History: Asthma, Coronary Artery Disease (CAD), Chest Pain / Angina , Heart Failure, Diabetes Mellitus, Hyperlipidemia, Hypertension, Myocardial Infarction ([place]), Osteoarthritis (OA), Pneumonia, Syncope Additional Past Medical History / Comment(s): Mi X3,GOUT, SPINAL STENOSIS(HAS HAS SX), BRONCHITIS, CONSTIPATION(LAST BM 10-03-16), FEW FALLS LATELY"DIZZY AT TIMES". 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 3 C-SECTIONS, OVARIAN CYST(RT), DENTAL IMPLANT(LOWER), RT SHOULDER REPLACMENT Past Anesthesia/Blood Transfusion Reactions: No Reported Reaction Additional Past Anesthesia/Blood Transfusion Reaction / Comment(s): BLOOD TRANSFUSION AFTER SHOULDER SX- NO REACTION. Type of Cardiac Device: AICD Device Placement Date:: 10-05-16 chest [employer] Past Psychological History: Depression Smoking Status: Never smoker Past Alcohol Use History: Occasional Past Drug Use History: None Reported - Past Family History Father Family Medical History: Coronary Artery Disease (CAD), Hypertension, Myocardial Infarction ([place]) Additional Family Medical History / Comment(s): Open heart, hypoglycemia, kidney stones Mother Family Medical History: Coronary Artery Disease (CAD), Hypertension, Myocardial Infarction ([place]) Additional Family Medical History / Comment(s): open heart surg, siatic nerve issues General Exam Limitations: no limitations General appearance: alert, in no apparent distress Head exam: Present: atraumatic, normocephalic Eye exam: Present: normal appearance ENT exam: Present: normal exam Neck exam: Present: normal inspection Respiratory exam: Present: normal lung sounds bilaterally. Absent: respiratory distress, wheezes Cardiovascular Exam: Present: regular rate, normal rhythm GI/Abdominal exam: Present: soft, distended, other (Abdomen appears distended however there is no tympany to percussion. Abdomen is only mildly tender to palpation.). Absent: tenderness, guarding Rectal exam: Present: deferred Extremities exam: Present: normal inspection Back exam: Present: normal inspection Neurological exam: Present: alert, oriented X3 Psychiatric exam: Present: normal affect, normal mood Skin exam: Present: warm, dry, intact Course Vital Signs 01/27/18 01/27/18 14:11 18:17 Temperature 98.9 F Pulse Rate 89 59 L Respiratory 18 16 Rate Blood Pressure 125/78 147/69 O2 Sat by Pulse 98 100 Oximetry Medical Decision Making - Medical Decision Making Patient presents with a chief complaint of epigastric pain and bloating. On initial evaluation, vitals are stable, patient is no acute distress. Patient was evaluated with basic labs including cardiac enzymes, liver profile, and lipase. She was sent for computed tomography scan of the abdomen and pelvis with IV and oral contrast. Laboratory evaluation is unremarkable. A chest x- ray shows no acute process however there is no other 1.5 cm density in the right lung that could possibly represent a lung nodule versus a superimposed radiopaque body. Patient was informed of this finding and instructed to follow- up with repeat imaging in 3-6 months. Computed tomography scan of the abdomen and pelvis shows no acute process. 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 At this time there does not appear to be any emergent etiologies of patient's discomfort. Patient was prescribed magnesium citrate and instructed on its use. Patient was instructed to follow up with primary care in 1-2 days, return to the emergency department if symptoms worsen or change. Urinalysis at this time shows leukocytes, and bacteria however when blood cells are 8, patient does not have urinary symptoms at this time and she was treated for pyelonephritis on her last visit. At this time I do not believe that the patient has an acute infection however a culture will be sent. - Lab Data Result diagrams: 01/27/18 15:00 01/27/18 15:00 Lab Results 01/27/18 01/27/18 01/27/18 Range/Units 15:00 15:00 15:00 WBC 9.9 (3.8-10.6) k/uL RBC 4.43 (3.80-5.40) m/uL Hgb 13.9 (11.4-16.0) gm/dL Hct 41.5 (34.0-46.0) % MCV 93.6 (80.0-100.0) fL MCH 31.4 (25.0-35.0) pg MCHC 33.6 (31.0-37.0) g/dL RDW 14.8 (11.5-15.5) % Plt Count 222 (150-450) k/uL Neutrophils % 71 % Lymphocytes % 20 % Monocytes % 6 % Eosinophils % 1 % Basophils % 0 % Neutrophils # 7.0 (1.3-7.7) k/uL Lymphocytes # 2.0 (1.0-4.8) k/uL Monocytes # 0.6 (0-1.0) k/uL Eosinophils # 0.1 (0-0.7) k/uL Basophils # 0.0 (0-0.2) k/uL Sodium 140 (137-145) mmol/L Potassium 3.8 (3.5-5.1) mmol/L Chloride 97 L (98-107) mmol/L Carbon Dioxide 27 (22-30) mmol/L Anion Gap 16 mmol/L BUN 27 H (7-17) mg/dL Creatinine 1.38 H (0.52-1.04) mg/dL Est GFR (CKD-EPI)AfAm 46 (>60 ml/min/1.73 sqM) Est GFR (CKD-EPI)NonAf 40 (>60 ml/min/1.73 sqM) Glucose 159 H (74-99) mg/dL Calcium 10.6 H (8.4-10.2) mg/dL Total Bilirubin 0.7 (0.2-1.3) mg/dL AST 22 (14-36) U/L ALT 27 (9-52) U/L Alkaline Phosphatase 80 (38-126) U/L Troponin I (0.000-0.034) ng/mL NT-Pro-B Natriuret Pep 3580 pg/mL Total Protein 7.1 (6.3-8.2) g/dL Albumin 4.7 (3.5-5.0) g/dL Amylase 37 (30-110) U/L Lipase 28 (23-300) U/L Urine Color Urine Appearance (Clear) Urine pH (5.0-8.0) Ur Specific [place] (1.001-1.035) Urine Protein (Negative) Urine Glucose (UA) (Negative) Urine Ketones (Negative) Urine Blood (Negative) Urine Nitrite (Negative) Urine Bilirubin (Negative) Urine Urobilinogen (<2.0) mg/dL Ur Leukocyte Esterase (Negative) Urine RBC (0-5) /hpf Urine WBC (0-5) /hpf Ur Squamous Epith Cells (0-4) /hpf Urine Bacteria (None) /hpf Hyaline Casts (0-2) /lpf Urine Mucus (None) /hpf 01/27/18 01/27/18 Range/Units 15:00 17:32 WBC (3.8-10.6) k/uL RBC (3.80-5.40) m/uL Hgb (11.4-16.0) gm/dL Hct (34.0-46.0) % MCV (80.0-100.0) fL MCH (25.0-35.0) pg MCHC (31.0-37.0) g/dL RDW (11.5-15.5) % Plt Count (150-450) k/uL Neutrophils % % Lymphocytes % % Monocytes % % Eosinophils % % Basophils % % Neutrophils # (1.3-7.7) k/uL Lymphocytes # (1.0-4.8) k/uL Monocytes # (0-1.0) k/uL Eosinophils # (0-0.7) k/uL Basophils # (0-0.2) k/uL Sodium (137-145) mmol/L Potassium (3.5-5.1) mmol/L Chloride (98-107) mmol/L Carbon Dioxide (22-30) mmol/L Anion Gap mmol/L BUN (7-17) mg/dL Creatinine (0.52-1.04) mg/dL Est GFR (CKD-EPI)AfAm (>60 ml/min/1.73 sqM) Est GFR (CKD-EPI)NonAf (>60 ml/min/1.73 sqM) Glucose (74-99) mg/dL Calcium (8.4-10.2) mg/dL Total Bilirubin (0.2-1.3) mg/dL AST (14-36) U/L ALT (9-52) U/L Alkaline Phosphatase (38-126) U/L Troponin I <0.012 (0.000-0.034) ng/mL NT-Pro-B Natriuret Pep pg/mL Total Protein (6.3-8.2) g/dL Albumin (3.5-5.0) g/dL Amylase (30-110) U/L Lipase (23-300) U/L Urine Color Yellow Urine Appearance Clear (Clear) Urine pH 5.5 (5.0-8.0) Ur Specific [place] 1.012 (1.001-1.035) Urine Protein Negative (Negative) Urine Glucose (UA) Negative (Negative) Urine Ketones Negative (Negative) Urine Blood Negative (Negative) Urine Nitrite Negative (Negative) Urine Bilirubin Negative (Negative) Urine Urobilinogen <2.0 (<2.0) mg/dL Ur Leukocyte Esterase Small H (Negative) Urine RBC 4 (0-5) /hpf Urine WBC 8 H (0-5) /hpf Ur Squamous Epith Cells <1 (0-4) /hpf Urine Bacteria Moderate H (None) /hpf Hyaline Casts 21 H (0-2) /lpf Urine Mucus Rare H (None) /hpf Disposition Clinical Impression: Abdominal pain Disposition: HOME SELF-CARE Condition: Good Instructions: Abdominal Pain (ED) Is patient prescribed a controlled substance at d/c from ED?: No Referrals: Trace Christian MD [Primary Care Provider] - 1-2 days
[2018-01-27 18:53] VITALS: BP 142/60; PULSE 86; RESP 18; TEMP 98.6
== END 2018-01-27 18:51 | disposition home or self-care (01) ==
LOC: EC 12:56
DX: R10.13 Epigastric pain (principal); R14.0 Abdominal distension (gaseous); J45.909 Unspecified asthma, uncomplicated; I25.10 Atherosclerotic heart disease of native coronary artery without angina pectoris; I11.0 Hypertensive heart disease with heart failure; I50.9 Heart failure, unspecified; E11.9 Type 2 diabetes mellitus without complications; E78.5 Hyperlipidemia, unspecified; I25.2 Old myocardial infarction; M19.90 Unspecified osteoarthritis, unspecified site; M10.9 Gout, unspecified; F32.9 Major depressive disorder, single episode, unspecified; Z95.810 Presence of automatic (implantable) cardiac defibrillator; Z95.1 Presence of aortocoronary bypass graft; Z90.49 Acquired absence of other specified parts of digestive tract; Z95.5 Presence of coronary angioplasty implant and graft; Z96.641 Presence of right artificial hip joint; Z98.890 Other specified postprocedural states; Z79.4 Long term (current) use of insulin; Z79.51 Long term (current) use of inhaled steroids; Z79.82 Long term (current) use of aspirin; Z79.899 Other long term (current) drug therapy; Z88.0 Allergy status to penicillin; Z88.1 Allergy status to other antibiotic agents; Z88.2 Allergy status to sulfonamides
CPT/HCPCS: 36415; 93005; 83880; 80053; 82150; 83690; 84484; 85025; 81001; 87086; 74022; 74177; 99284; 96374; 96375; J2405; Q9967

== ENCOUNTER → 2019-05-05 | Outpatient (CLI) | payer MEDICARE ==
[2019-05-05 14:12] LABS: Calcium 9.8 mg/dL (8.4-10.2); Potassium 4.3 mmol/L (3.5-5.1)
== END | disposition home or self-care (01) ==
LOC: LABPAT 12:54
PROVIDERS: ATTEND Internal Medicine Clinical Cardiac Electrophysiology
DX: Z01.812 Encounter for preprocedural laboratory examination (principal); I25.5 Ischemic cardiomyopathy; I35.0 Nonrheumatic aortic (valve) stenosis
CPT/HCPCS: 36415; 80048

== ENCOUNTER 2019-05-12 06:12 | Day surgery (SDC) | payer MEDICARE ==
[2019-05-07 10:36] VITALS: BMI 42.8
[2019-05-12] MEDS ORDERED: LACTATED RINGERS 1,000 ML IV SCH (06:51)
[2019-05-12] MEDS ORDERED: SODIUM CHLORIDE 0.9% 1,000 ML IV SCH (06:51)
[2019-05-12] MEDS ORDERED: SODIUM CHLORIDE 0.9% 1,000 ML IV ONE (07:05)
[2019-05-12 07:08] VITALS: RESP 16; TEMP 97.6
[2019-05-12] MEDS ORDERED: PROPOFOL 10 MG/ML 20 ML VIAL IV ONE (07:12)
[2019-05-12 07:20] LABS: Glucose,Whole Blood 146 mg/dL (75-99)
--- NOTE | 2019-05-12 08:21 | P.HPCAR ---
History of Present Illness This is Lraa Archibald PA-C dictating an H&P on this patient The patient was interviewed and examined by me as well as by Dr. Eugene Case discussed with Dr. Eugene and he agrees with the plan of care IMPRESSION / ASSESSMENT: Ischemic cardiomyopathy status post ICD placement, most recent echocardiogram showing EF 39% CAD status post CABG Hypertension Dyslipidemia Diabetes PLAN: Proceed with DFT testing under anesthesia and ICD reprogramming accordingly HPI Patient is a 68-year-old female with a past medical history significant for hypertension, dyslipidemia, diabetes, CAD, status post CABG, ischemic cardiomyopathy status post ICD placement who presents for evaluation of her ICD under anesthesia. Patient has had stable shortness of breath with exertion. Denies any worsening shortness of breath. No chest pain or palpitations. She has never had DFT testing done. Patient seen and examined resting comfortably in bed. No complaints of chest pain, palpitations, dizziness, lightheadedness or syncope. sleeps comfortably at night laying flat, no orthopnea or PND. ROS: No fevers, chills or rigors, no cough, phlegm or expectoration, no nausea, vomiting or diarrhea, no hematuria, dysuria, no musculoskeletal complaints, no strokes or seizures, no skin lesions. EXAMINATION: Temperature 97.6F, pulse 61, respirations 16, blood pressure 145/77, oxygen saturation 95% on room air Patient seen and examined resting comfortably in bed, in no acute distress Lungs are clear to auscultation bilaterally Heart is regular, systolic murmur noted No elevated JVD or lower extremity edema Abdomen soft, nontender to palpation REVIEW OF LABS, ECG & MEDICAL DATA Most recent echocardiogram showed EF 39%, mild to moderate TR, mild MR, mild to moderate Physical Exam Vitals: Vital Signs Temp Pulse Resp BP Pulse Ox 05/12/19 07:05 97.6 F 61 16 145/77 95 Intake and Output 05/11/19 05/12/19 05/12/19 22:59 06:59 14:59 Intake Total 850 Balance 850 Intake: IV 850 Other: Weight 94.2 kg Past Medical History Past Medical History: Asthma, Diabetes Mellitus, GERD/Reflux, Hyperlipidemia, Myocardial Infarction ([place]), Pneumonia, Renal Disease Additional Past Medical History / Comment(s): Mi X3, GOUT, SPINAL STENOSIS, BRONCHITIS, dizziness/couple falls, 3-1-17 CARDIAC ARREST,see Dr Eugene H&P, stage 4 kidney failure Last Myocardial Infarction Date:: unknown History of Any Multi-Drug Resistant Organisms: None Reported Past Surgical History: AICD, Appendectomy, Back Surgery, Section, Coronary Bypass/CABG, Joint Replacement, Orthopedic Surgery, Pacemaker Additional Past Surgical History / Comment(s): right shoulder replacement, back surgX2, QUAD CABG-"DIAPHRAGM PARALIZED AFTER SX HAD TO GO TO PULMONARY REHAB, 7 HEART CATHS-MULTIPLE STENTS BUT NOT SURE EXACTLY HOW MANY. 3 C-SECTIONS, OVARIAN CYST(RT), Past Anesthesia/Blood Transfusion Reactions: Motion Sickness Additional Past Anesthesia/Blood Transfusion Reaction / Comment(s): BLOOD TRANSFUSION AFTER SHOULDER SX- NO REACTION. Type of Cardiac Device: Permanent Pacemaker, AICD Device Placement Date:: 10-05-16 [employer] Smoking Status: Never smoker - Past Family History Father Family Medical History: Coronary Artery Disease (CAD), Hypertension, Myocardial Infarction ([place]) Additional Family Medical History / Comment(s): Open heart, hypoglycemia, kidney stones Mother Family Medical History: No Reported History Additional Family Medical History / Comment(s): . Physical Examination Vital Signs Temp Pulse Resp BP Pulse Ox 05/12/19 07:05 97.6 F 61 16 145/77 95 Intake and Output 05/11/19 05/12/19 05/12/19 22:59 06:59 14:59 Intake Total 850 Balance 850 Intake: IV 850 Other: Weight 94.2 kg Results Current Medications Generic Name Dose Route Start Last Admin Trade Name Freq PRN Reason Stop Dose Admin Sodium Chloride 1,000 mls @ 20 mls/hr 05/12/19 06:51 Saline 0.9% IV .Q24H CORIE Lactated Ringer's 1,000 mls @ 20 mls/hr 05/12/19 06:51 Lactated Ringers IV .Q24H CORIE Intake and Output 05/11/19 05/12/19 05/12/19 22:59 06:59 14:59 Intake Total 850 Balance 850 Intake: IV 850 Other: Weight 94.2 kg Patient Weight 05/13/19 06:59 Weight 94.2 kg
--- NOTE | 2019-05-12 08:38 | CE ---
CARDIAC ELECTROPHYSIOLOGY REPORT Gypsy Auguste is a 68-year-old female with ischemic cardiomyopathy with a single- chamber ICD, Mogujie who was brought in for an ICD interrogation under anesthesia. The ICD was interrogated. The R-waves were 7 mV, pacing impedance 378 ohms, pacing threshold 0.9 V at 0.5 milliseconds. Shocking impedance 70 ohms. RV pacing less than 1%. DFT testing was performed. A shock and T-wave protocol was used to induce ventricular fibrillation. This was adequately and appropriately detected at least sensitivity and successfully internally defibrillated with an 11 joule shock. The charge time was 1.9 seconds. No post shock noise. The shocking impedance was 62 ohms. The lead polarity was initial. The device was then reprogrammed according to the MADIT RIT programming with appropriate antitachycardia pacing, cardioversion and defibrillation according to the protocol. Sensitivity was reprogrammed to 0.4 mV. Patient tolerated the procedure well without any acute complications. IMPRESSION: 1. Normal ICD function with appropriate detection of ventricular fibrillation and successful defibrillation at 11 joules. 2. The ICD was reprogrammed according to the MADIT RIT programming parameters. MMODL / IJN: [id number] /
[2019-05-12 15:28] VITALS: BP 106/59; PULSE 64
== END 2019-05-12 09:10 | disposition home or self-care (01) ==
LOC: CATHEP 06:12
PROVIDERS: ATTEND Internal Medicine Clinical Cardiac Electrophysiology
DX: I25.5 Ischemic cardiomyopathy (principal); I25.10 Atherosclerotic heart disease of native coronary artery without angina pectoris; I25.2 Old myocardial infarction; I12.9 Hypertensive chronic kidney disease with stage 1 through stage 4 chronic kidney disease, or unspecified chronic kidney disease; E11.22 Type 2 diabetes mellitus with diabetic chronic kidney disease; N18.4 Chronic kidney disease, stage 4 (severe); M10.9 Gout, unspecified; E78.5 Hyperlipidemia, unspecified; J45.909 Unspecified asthma, uncomplicated; F41.9 Anxiety disorder, unspecified; F32.9 Major depressive disorder, single episode, unspecified; K21.9 Gastro-esophageal reflux disease without esophagitis; Z95.1 Presence of aortocoronary bypass graft; Z82.49 Family history of ischemic heart disease and other diseases of the circulatory system; Z87.01 Personal history of pneumonia (recurrent); Z90.49 Acquired absence of other specified parts of digestive tract; Z96.611 Presence of right artificial shoulder joint; Z95.5 Presence of coronary angioplasty implant and graft; Z95.0 Presence of cardiac pacemaker; Z98.890 Other specified postprocedural states; Z87.39 Personal history of other diseases of the musculoskeletal system and connective tissue; Z88.0 Allergy status to penicillin; Z88.2 Allergy status to sulfonamides; Z88.1 Allergy status to other antibiotic agents; Z79.82 Long term (current) use of aspirin; Z79.4 Long term (current) use of insulin; Z79.899 Other long term (current) drug therapy
CPT/HCPCS: 93642; J2704

== ENCOUNTER 2019-06-26 06:56 | Day surgery (SDC) | payer MEDICARE ==
[2019-06-25 10:27] VITALS: BMI 42.1
[~2019-06-26 06:56] MED LIST changes: -AMIODARONE 50 MG/ML 3 ML VIAL IV ONE; -DEXTROSE 5% IN WATER 100 ML BAG IV ONE; -DEXTROSE 50%-WATER 50 ML SYRINGE IVP ONE; -EPINEPHrine 10 ML SYRINGE (0.1 MG/ML) ONE; +LACTATED RINGERS 1,000 ML IV SCH; +LIDOCAINE 1% 20 ML VIAL (10MG/ML) FOR IV START INTRADERMA PRN; -SODIUM CHLORIDE 0.9% 250 ML BAG ONE
[2019-06-26 07:25] VITALS: TEMP 98.2
[2019-06-26 07:27] LABS: Glucose,Whole Blood 251 mg/dL (75-99)
[2019-06-26] MEDS ORDERED: PROPOFOL 10 MG/ML 20 ML VIAL IV ONE (07:30)
[2019-06-26] MEDS ORDERED: LIDOCAINE 1% INJ 10MG/ML (20 ML MDV) ONE (07:30)
[2019-06-26] MEDS ORDERED: ETOMIDATE 2 MG/ML 10 ML VIAL ONE (07:30)
[2019-06-26 08:00] VITALS: RESP 16
--- NOTE | 2019-06-26 08:01 | P.PCN ---
Date of Procedure: 06/26/19 Procedure(s) Performed: BRIEF HISTORY: Patient is a 68-year-old pleasant at female, scheduled for an elective colonoscopy as a part of screening for colorectal neoplasia. Her last colonoscopy was 10 years ago. PROCEDURE PERFORMED: Colonoscopy with snare polypectomy. PREOPERATIVE DIAGNOSIS: Screening for colon cancer. IV sedation per Anesthesia. PROCEDURE: After informed consent was obtained, the patient, was brought into the endoscopy unit. IV sedation was administered by Anesthesia under continuous monitoring. Digital rectal examination was normal. Initially the Olympus CF-160 flexible video colonoscope was then inserted in the rectum, gradually advanced into the cecum without any difficulty. Careful examination was performed as the scope was gradually being withdrawn. Ileocecal valve and the appendiceal orifice were visualized and appeared normal. Prep was excellent. Mucosa of the cecum, ascending colon, appeared normal. In the transverse colon there was a 3-4 mm sessile polyp that was removed by snare polypectomy. transverse colon, descending colon, sigmoid colon, and rectum appeared normal. Retroflexion was performed in the rectum and no lesions were seen. The patient tolerated the procedure well. IMPRESSION: 3-4 mm sessile transverse colon polyp status post polypectomy RECOMMENDATIONS: Findings of this examination were discussed with the patient as well as a family. She was advised to follow with the biopsy results and if the biopsy shows an adenoma she can have a repeat colonoscopy in 5 years. .
[2019-06-26 08:20] VITALS: BP 126/65; PULSE 60
== END 2019-06-26 08:52 | disposition home or self-care (01) ==
LOC: ORWHC2ENDO 06:56
PROVIDERS: ATTEND Internal Medicine Gastroenterology
DX: Z12.11 Encounter for screening for malignant neoplasm of colon (principal); D12.3 Benign neoplasm of transverse colon; Z88.0 Allergy status to penicillin; Z88.1 Allergy status to other antibiotic agents; Z88.2 Allergy status to sulfonamides; I25.2 Old myocardial infarction; I11.0 Hypertensive heart disease with heart failure; I50.9 Heart failure, unspecified; I25.119 Atherosclerotic heart disease of native coronary artery with unspecified angina pectoris; I08.3 Combined rheumatic disorders of mitral, aortic and tricuspid valves; E78.5 Hyperlipidemia, unspecified; Z95.810 Presence of automatic (implantable) cardiac defibrillator; Z98.890 Other specified postprocedural states; E11.9 Type 2 diabetes mellitus without complications; N28.9 Disorder of kidney and ureter, unspecified; J98.6 Disorders of diaphragm; F32.9 Major depressive disorder, single episode, unspecified; F41.9 Anxiety disorder, unspecified; Z79.82 Long term (current) use of aspirin; Z79.891 Long term (current) use of opiate analgesic; Z79.4 Long term (current) use of insulin; Z79.51 Long term (current) use of inhaled steroids; Z79.899 Other long term (current) drug therapy; Z90.49 Acquired absence of other specified parts of digestive tract; Z95.5 Presence of coronary angioplasty implant and graft; E66.01 Morbid (severe) obesity due to excess calories; Z68.41 Body mass index [BMI] 40.0-44.9, adult
CPT/HCPCS: 88305; 45385; J2001; J2704

== ENCOUNTER 2019-08-18 06:32 | Day surgery (SDC) | payer MEDICARE ==
[2019-08-13 18:18] VITALS: BMI 42.8
[2019-08-18] MEDS ORDERED: SODIUM CHLORIDE 0.9% 500 ML 500 ML IV ONE (07:03)
[2019-08-18 07:04] VITALS: RESP 16; TEMP 97.6
[2019-08-18] MEDS ORDERED: BENZOCAINE SPRAY 1 CAN MUCOUS MEM ONE ×2 (07:08→07:12)
[2019-08-18] MEDS ORDERED: fentaNYL (PF) 50 MCG/ML 2 ML AMP ONE (07:08)
[2019-08-18 07:10] LABS: Glucose,Whole Blood 72 mg/dL (75-99)
[2019-08-18] MEDS ORDERED: MIDAZOLAM 2 MG/2 ML VIAL IVP ONE (07:12)
[2019-08-18] MEDS ORDERED: fentaNYL (PF) 50 MCG/ML 2 ML AMP IVP ONE (07:12)
[2019-08-18] MEDS ORDERED: ALPRAZolam 0.25 MG TAB PO PRN (07:43)
[2019-08-18] MEDS ORDERED: DOCUSATE 100 MG CAP PO PRN (07:43)
[2019-08-18] MEDS ORDERED: traMADol 50 MG TAB PO PRN (07:43)
[2019-08-18] MEDS ORDERED: SODIUM CHLORIDE 0.9% 1,000 ML IV SCH (07:45)
--- NOTE | 2019-08-18 07:54 | ECHOT ---
TRANSESOPHAGEAL ECHOCARDIOGRAM INDICATION: Evaluation of aortic valve. PROCEDURE: After explaining the procedure to the patient, its risks and complication, blood pressure, heart rate, O2 saturation was monitored. The throat was sprayed with Cetacaine. She received 2 mg intravenous Versed, 50 mcg intravenous fentanyl. The probe was introduced into the esophagus without difficulties. Images were obtained. Following that, the probe was removed. There was no immediate complication. The patient was returned to room in stable condition. FINDINGS: Left atrial size is mildly dilated. Left atrial appendage is normal. Left ventricular size is normal. There is evidence of anteroapical and anteroseptal akinesis. Estimated ejection fraction is 35%-40%. The aortic valve is a tricuspid valve, heavily calcified with reduced opening by planimetry the valve area is 0.8 cm2. Mitral valve revealed mild antral calcification. Tricuspid valve is normal. A wire was noted in the right atrium, right ventricle. Descending thoracic aorta revealed moderate atherosclerotic changes. No pericardial effusion was noted. Contrast bubble study revealed no shunting across the interatrial septum. Doppler pulse wave and color Doppler obtained and revealed mild mitral with moderate tricuspid and mild aortic regurgitation. The peak gradient across the aortic valve was 32 mmHg with a mean of 17 mmHg. There was no shunting by color Doppler study. CONCLUSION: 1. Dilated left atrium with normal appearance left atrial appendage. 2. Normal left ventricular size with moderately severely impaired left ventricular systolic function. 3. Calcified tricuspid aortic valve with moderate to severe aortic stenosis and mild aortic regurgitation. 4. Mild mitral with moderate tricuspid and mild aortic regurgitation. 5. Moderate atherosclerotic changes of the descending thoracic aorta. 6. No pericardial effusion. 7. No shunting across the interatrial septum. MMODL / IJN: [id number] /
[2019-08-18 08:07] VITALS: BP 103/53; PULSE 54
[2019-08-18] MEDS ORDERED: RANOLAZINE 500 MG TAB.ER.12H PO SCH (09:00)
[2019-08-18] MEDS ORDERED: SPIRONOLACTONE 25 MG TAB PO SCH (09:00)
[2019-08-18] MEDS ORDERED: NON FORMULARY DRUG (Biotin [Biotin] 10,000 MCG) PO SCH (09:00)
[2019-08-18] MEDS ORDERED: NON FORMULARY DRUG (Fish Oil/Dha/Epa [Fish Oil 1,200 Mg Fish Oil] 1 CAP) PO SCH (09:00)
[2019-08-18] MEDS ORDERED: CARVEDILOL 12.5 MG TAB PO SCH ×2 (09:00→21:00)
[2019-08-18] MEDS ORDERED: CINNAMON BARK 500 MG PO SCH (09:00)
[2019-08-18] MEDS ORDERED: BECLOMETHASONE DIP INHALATION SCH (09:00)
[2019-08-18] MEDS ORDERED: ISOSORBIDE MONONITRATE ER 30 MG TAB.ER.24H PO SCH (09:00)
[2019-08-18] MEDS ORDERED: FUROSEMIDE 40 MG TAB PO SCH (09:00)
[2019-08-18] MEDS ORDERED: FLUoxetine HCL 10 MG CAP PO SCH (09:00)
[2019-08-18] MEDS ORDERED: LOSARTAN 25 MG TAB PO SCH (09:00)
[2019-08-18] MEDS ORDERED: FAMOTIDINE 20 MG TAB PO SCH (09:00)
[2019-08-18] MEDS ORDERED: ALLOPURINOL 300 MG TAB PO SCH (21:00)
[2019-08-18] MEDS ORDERED: MONTELUKAST 10 MG TAB PO SCH (21:00)
[2019-08-18] MEDS ORDERED: ASPIRIN 162 MG PO SCH (21:00)
[2019-08-18] MEDS ORDERED: NON FORMULARY DRUG (Rosuvastatin Calcium [Crestor] 5 MG) PO SCH (21:00)
[2019-08-18] MEDS ORDERED: INSULIN GLARGINE 20 UNIT SQ SCH (21:00)
[2019-08-18] MEDS ORDERED: LORATADINE 10 MG TAB PO SCH (21:00)
== END 2019-08-18 08:40 | disposition home or self-care (01) ==
LOC: CATHCVL 06:32
PROVIDERS: ATTEND Internal Medicine Interventional Cardiology
DX: I08.8 Other rheumatic multiple valve diseases (principal); I70.0 Atherosclerosis of aorta; I25.5 Ischemic cardiomyopathy; I12.9 Hypertensive chronic kidney disease with stage 1 through stage 4 chronic kidney disease, or unspecified chronic kidney disease; E11.22 Type 2 diabetes mellitus with diabetic chronic kidney disease; N18.9 Chronic kidney disease, unspecified; E78.2 Mixed hyperlipidemia; I25.10 Atherosclerotic heart disease of native coronary artery without angina pectoris; E66.9 Obesity, unspecified; Z68.42 Body mass index [BMI] 45.0-49.9, adult; Z95.5 Presence of coronary angioplasty implant and graft; Z95.1 Presence of aortocoronary bypass graft; Z79.899 Other long term (current) drug therapy; Z79.4 Long term (current) use of insulin; Z79.82 Long term (current) use of aspirin; Z82.49 Family history of ischemic heart disease and other diseases of the circulatory system; Z88.0 Allergy status to penicillin; Z88.8 Allergy status to other drugs, medicaments and biological substances; Z88.1 Allergy status to other antibiotic agents; Z88.2 Allergy status to sulfonamides; Z95.810 Presence of automatic (implantable) cardiac defibrillator
CPT/HCPCS: 93312; 93320; 93325; J2250; J3010

== ENCOUNTER → 2019-10-07 | Outpatient (CLI) | payer MEDICARE ==
[~2019-10-07] MED LIST changes: -LACTATED RINGERS 1,000 ML IV SCH; -LIDOCAINE 1% 20 ML VIAL (10MG/ML) FOR IV START INTRADERMA PRN; +fentaNYL (PF) 50 MCG/ML 2 ML AMP ONE
[2019-10-07 16:55] LABS: Albumin 4.4 g/dL (3.80-4.90); Albumin/Globulin Ratio 2.44 (1.60-3.17); Anion Gap 8.3 mmol/L (4.00-12.00); BUN/Creat Ratio 19.38 Ratio (12.00-20.00); Calcium 10.2 mg/dL (8.7-10.3); Carbon Dioxide 26.7 mmol/L (21.6-31.8); Chol/HDL Ratio 2.02; Globulin 1.8 g/dL (1.6-3.3); LDL Cholesterol,Calculated 24.4 mg/dL (0.0-131.0); Non-African American GFR(CKD) 32.8 (60.0-200.0); Potassium 4.6 mmol/L (3.5-5.5); Total Bilirubin 0.7 mg/dL (0.3-1.2); Total Protein 6.2 g/dL (6.2-8.2); VLDL Calculation 32.6 mg/dL (5.00-40.00)
== END | disposition home or self-care (01) ==
LOC: LABWHC1 11:04
PROVIDERS: ATTEND Nurse Practitioner Adult Health
DX: E78.2 Mixed hyperlipidemia (principal); N18.9 Chronic kidney disease, unspecified
CPT/HCPCS: 36415; 80053; 80061

== ENCOUNTER → 2019-10-08 | Day surgery (SDC) | payer MEDICARE ==
[2019-10-05 15:51] VITALS: BMI 42.8
[2019-10-08 09:58] VITALS: TEMP 97.8
[2019-10-08 10:35] VITALS: RESP 14
[2019-10-08 15:02] VITALS: BP 106/56; PULSE 62
== END ==
LOC: CATHCVL 09:23
PROVIDERS: ATTEND Internal Medicine Interventional Cardiology
DX: I25.110 Atherosclerotic heart disease of native coronary artery with unstable angina pectoris (principal); I25.82 Chronic total occlusion of coronary artery; Z95.1 Presence of aortocoronary bypass graft; I35.0 Nonrheumatic aortic (valve) stenosis; I25.5 Ischemic cardiomyopathy; I12.9 Hypertensive chronic kidney disease with stage 1 through stage 4 chronic kidney disease, or unspecified chronic kidney disease; E11.22 Type 2 diabetes mellitus with diabetic chronic kidney disease; N18.9 Chronic kidney disease, unspecified; E78.2 Mixed hyperlipidemia; E78.00 Pure hypercholesterolemia, unspecified; E66.9 Obesity, unspecified; Z68.41 Body mass index [BMI] 40.0-44.9, adult; Z95.810 Presence of automatic (implantable) cardiac defibrillator; Z95.5 Presence of coronary angioplasty implant and graft; Z79.899 Other long term (current) drug therapy; Z79.82 Long term (current) use of aspirin; Z79.4 Long term (current) use of insulin; Z88.0 Allergy status to penicillin; Z88.1 Allergy status to other antibiotic agents; Z88.8 Allergy status to other drugs, medicaments and biological substances; Z88.2 Allergy status to sulfonamides; Z82.49 Family history of ischemic heart disease and other diseases of the circulatory system
CPT/HCPCS: 93455; 80048; 85025; C1760; C1894; C1769; J2001; J3010; Q9967; 93457

== ENCOUNTER → 2019-10-19 | Outpatient (CLI) | payer MEDICARE | END | disposition home or self-care (01) | DX: I25.10 Atherosclerotic heart disease of native coronary artery without angina pectoris (principal) | CPT/HCPCS: 36415; 80053 ==

== ENCOUNTER → 2019-12-08 | Outpatient (CLI) | payer MEDICARE ==
[2019-12-08 10:48] LABS: Appearance,Urine Clear (Clear); Bacteria,Urine Occasional /hpf; Basophils % (A) 0 %; Bilirubin,Urine Negative (Negative); Blood,Urine Negative (Negative); Color,Urine Light Yellow; Eosinophils # (A) 0.2 k/uL (0-0.7); Eosinophils % (A) 4 %; Glucose,Urine (UA) Negative (Negative); HCT 44.3 % (34.0-46.0); HGB 13.7 gm/dL (11.4-16.0); Hyaline Casts,Urine 6 /lpf (0-2); Hypochromasia Slight; Ketones,Urine Negative (Negative); Leukocyte Esterase,Urine Small (Negative); Lymphocytes # (A) 1.1 k/uL (1.0-4.8); Lymphocytes % (A) 25 %; MCH 31.7 pg (25.0-35.0); Macrocytosis Slight; Mean Platelet Volume 7.6; Monocytes # (A) 0.2 k/uL (0-1.0); Monocytes % (A) 5 %; Neutrophils # (A) 2.9 k/uL (1.3-7.7); Neutrophils % (A) 64 %; Nitrite,Urine Negative (Negative); Platelet Count 214 k/uL (150-450); Protein,Urine Negative (Negative); RBC 4.33 m/uL (3.80-5.40); RBC,Urine 2 /hpf (0-5); RDW 13.9 % (11.5-15.5); Specific Gravity,Urine 1.008 (1.001-1.035); Squamous Epithelial Cell,Urine 1 /hpf (0-4); Urobilinogen,Urine <2.0 mg/dL (<2.0); WBC 4.5 k/uL (3.8-10.6); WBC,Urine 4 /hpf (0-5)
[2019-12-08 10:51] LABS: Protein/Creatinine Ratio,Urine 0.397
[2019-12-08 10:53] LABS: MCV 102.3 fL (80.0-100.0)
[2019-12-08 10:58] LABS: INR 0.9 (<1.2); Prothrombin Time 9.5 sec (9.0-12.0)
[2019-12-08 10:59] LABS: Partial Thromboplastin Time 21.8 sec (22.0-30.0)
[2019-12-08 16:03] LABS: % Iron Saturation 22.4 (12.00-45.00); African American GFR (CKD) 44.6 (60.0-200.0); Albumin 3.9 g/dL (3.80-4.90); Albumin/Globulin Ratio 2.29 (1.60-3.17); Anion Gap 11.1 mmol/L (4.00-12.00); BUN/Creat Ratio 27.86 Ratio (12.00-20.00); Calcium 10.1 mg/dL (8.7-10.3); Carbon Dioxide 22.9 mmol/L (21.6-31.8); Globulin 1.7 g/dL (1.6-3.3); Magnesium 1.8 mg/dL (1.5-2.4); Non-African American GFR(CKD) 38.5 (60.0-200.0); Phosphorus 3.7 mg/dL (2.4-5.1); Potassium 4.5 mmol/L (3.5-5.5); Total Bilirubin 0.5 mg/dL (0.3-1.2); Total Protein 5.6 g/dL (6.2-8.2); Uric Acid 6.5 mg/dL (2.9-7.7)
[2019-12-08 16:12] LABS: Ferritin 66.4 ng/mL (10.0-291.0)
== END | disposition home or self-care (01) ==
LOC: LABWHC1 08:50
PROVIDERS: ATTEND Student in an Organized Health Care Education/Training Program
DX: R06.02 Shortness of breath (principal); E55.9 Vitamin D deficiency, unspecified; N25.81 Secondary hyperparathyroidism of renal origin; M10.9 Gout, unspecified; N39.0 Urinary tract infection, site not specified; N18.3 Chronic kidney disease, stage 3 (moderate); D63.1 Anemia in chronic kidney disease; R80.9 Proteinuria, unspecified
CPT/HCPCS: 36415; 80053; 81001; 82570; 82728; 83540; 83550; 83735; 83970; 84100; 84156; 84550; 85025; 85610; 85730

== ENCOUNTER → 2020-10-07 | Outpatient (CLI) | payer MEDICARE ==
[2020-10-07 09:19] LABS: ALT 13 U/L (4-34); AST 16 U/L (14-36); African American GFR (CKD) 36 (>60 ml/min/1.73 sqM); Albumin 3.7 g/dL (3.5-5.0); Albumin/Globulin Ratio 1.5; Alkaline Phosphatase 97 U/L (38-126); Anion Gap 7 mmol/L; Blood Urea Nitrogen 38 mg/dL (7-17); Calcium 10.1 mg/dL (8.4-10.2); Carbon Dioxide 28 mmol/L (22-30); Chloride 101 mmol/L (98-107); Cholesterol 192 mg/dL (<200); Globulin 2.4 g/dL; Glucose 221 mg/dL (74-99); HDL Cholesterol 52 mg/dL (40-60); LDL Cholesterol,Calculated 105 mg/dL (0-99); Non-African American GFR(CKD) 32 (>60 ml/min/1.73 sqM); Potassium 4.9 mmol/L (3.5-5.1); Sodium 136 mmol/L (137-145); Total Bilirubin 0.5 mg/dL (0.2-1.3); Total Protein 6.1 g/dL (6.3-8.2); Triglycerides 176 mg/dL (<150)
== END | disposition home or self-care (01) ==
LOC: LABWHC1 07:30
PROVIDERS: ATTEND Internal Medicine Interventional Cardiology
DX: E78.2 Mixed hyperlipidemia (principal)
CPT/HCPCS: 36415; 80053; 80061

== ENCOUNTER → 2021-01-31 | Outpatient (CLI) | payer MEDICARE ==
[2021-01-31 17:17] LABS: African American GFR (CKD) 44.3 (60.0-200.0); Albumin 4.2 g/dL (3.80-4.90); Anion Gap 10.5 mmol/L (4.00-12.00); BUN/Creat Ratio 19.29 Ratio (12.00-20.00); Calcium 9.7 mg/dL (8.7-10.3); Carbon Dioxide 26.5 mmol/L (21.6-31.8); Chol/HDL Ratio 3.02; Globulin 2.1 g/dL (1.6-3.3); LDL Cholesterol,Calculated 49.6 mg/dL (0.0-131.0); Non-African American GFR(CKD) 38.2 (60.0-200.0); Potassium 4.2 mmol/L (3.5-5.5); Total Bilirubin 0.9 mg/dL (0.2-1.2); Total Protein 6.3 g/dL (6.2-8.2); VLDL Calculation 55.4 mg/dL (5.00-40.00)
== END | disposition home or self-care (01) ==
LOC: LABWHC1 09:33
PROVIDERS: ATTEND Nurse Practitioner Adult Health
DX: E78.2 Mixed hyperlipidemia (principal); I10 Essential (primary) hypertension
CPT/HCPCS: 36415; 80053; 80061

== ENCOUNTER → 2021-04-18 | Outpatient (CLI) | payer MEDICARE ==
[2021-04-18 10:43] LABS: Appearance,Urine Clear (Clear); Bilirubin,Urine Negative (Negative); Blood,Urine Negative (Negative); Color,Urine Colorless; Glucose,Urine (UA) Negative (Negative); Ketones,Urine Negative (Negative); Leukocyte Esterase,Urine Negative (Negative); Nitrite,Urine Negative (Negative); Protein,Urine Negative (Negative); Specific Gravity,Urine 1.005 (1.001-1.035); Urobilinogen,Urine <2.0 mg/dL (<2.0)
[2021-04-18 14:15] LABS: Basophils # (A) 0.04 X 10*3/uL (0.00-0.10); Basophils % (A) 0.7 %; Eosinophils # (A) 0.45 X 10*3/uL (0.04-0.35); Eosinophils % (A) 7.5 %; HCT 40.2 % (37.2-46.3); HGB 12.9 g/dL (12.0-15.0); Lymphocytes # (A) 1.64 X 10*3/uL (0.90-5.00); Lymphocytes % (A) 27.4 %; MCH 31.7 pg (27.0-32.0); MCHC 32.1 g/dL (32.0-37.0); MCV 98.8 fL (80.0-97.0); Mean Platelet Volume 10.6 fL (9.5-12.2); Monocytes # (A) 0.36 X 10*3/uL (0.20-1.00); Neutrophils # (A) 3.45 X 10*3/uL (1.80-7.70); Neutrophils % (A) 57.7 %; Platelet Count 187 X 10*3/uL (140-440); RBC 4.07 X 10*6/uL (4.10-5.20); RDW 14.4 % (11.5-14.5); WBC 5.98 X 10*3/uL (4.50-10.00)
[2021-04-18 17:16] LABS: Creatinine,Urine Random 14.2 mg/dL; Protein/Creatinine Ratio,Urine 1.127
[2021-04-19 08:56] LABS: Magnesium 1.8 mg/dL (1.5-2.4); Phosphorus 3.5 mg/dL (2.4-5.1); Uric Acid 7.3 mg/dL (2.9-7.7)
[2021-04-19 08:57] LABS: African American GFR (CKD) 44.3 (60.0-200.0); Anion Gap 15.1 mmol/L (4.00-12.00); BUN/Creat Ratio 17.14 Ratio (12.00-20.00); Carbon Dioxide 20.9 mmol/L (21.6-31.8); Non-African American GFR(CKD) 38.2 (60.0-200.0); Potassium 4.4 mmol/L (3.5-5.5)
[2021-04-19 09:03] LABS: Ferritin 70.6 ng/mL (10.0-291.0)
== END | disposition home or self-care (01) ==
LOC: LABWHC1 10:01
PROVIDERS: ATTEND Internal Medicine Nephrology
DX: I12.9 Hypertensive chronic kidney disease with stage 1 through stage 4 chronic kidney disease, or unspecified chronic kidney disease (principal); N18.9 Chronic kidney disease, unspecified
CPT/HCPCS: 36415; 80048; 81003; 82040; 82570; 82728; 83540; 83550; 83735; 84100; 84156; 84550; 85025

== ENCOUNTER → 2021-04-24 | Outpatient (CLI) | payer MEDICARE ==
[2021-04-24 15:43] LABS: Albumin 4.2 g/dL (3.80-4.90); Albumin/Globulin Ratio 2.21 (1.60-3.17); Anion Gap 9.5 mmol/L (4.00-12.00); BUN/Creat Ratio 11.48 Ratio (12.00-20.00); Calcium 9.8 mg/dL (8.7-10.3); Carbon Dioxide 26.5 mmol/L (21.6-31.8); Chol/HDL Ratio 3.89; Globulin 1.9 g/dL (1.6-3.3); LDL Cholesterol,Calculated 127.4 mg/dL (0.0-131.0); Non-African American GFR(CKD) 17.3 (60.0-200.0); Potassium 4.9 mmol/L (3.5-5.5); Total Bilirubin 0.6 mg/dL (0.3-1.2); Total Protein 6.1 g/dL (6.2-8.2); VLDL Calculation 37.6 mg/dL (5.00-40.00)
== END | disposition home or self-care (01) ==
LOC: LABWHC1 10:17
PROVIDERS: ATTEND Internal Medicine Interventional Cardiology
DX: E78.1 Pure hyperglyceridemia (principal)
CPT/HCPCS: 36415; 80053; 80061

== ENCOUNTER 2021-05-25 18:21 | Inpatient (IN) | payer MEDICARE ==
[2021-05-25] MEDS ORDERED: SODIUM CHLORIDE 0.9% 500 ML 500 ML IV STA (19:50)
[2021-05-25] MEDS ORDERED: ACETAMINOPHEN TAB 500 MG TAB PO STA (19:50)
[2021-05-25 20:34] LABS: Basophils % (A) 1 %; Eosinophils # (A) 0.1 k/uL (0-0.7); Eosinophils % (A) 1 %; HCT 39.6 % (34.0-46.0); HGB 13.8 gm/dL (11.4-16.0); Lymphocytes # (A) 0.4 k/uL (1.0-4.8); Lymphocytes % (A) 6 %; MCH 33.4 pg (25.0-35.0); MCHC 34.7 g/dL (31.0-37.0); MCV 96.1 fL (80.0-100.0); Mean Platelet Volume 7.8; Monocytes # (A) 0.3 k/uL (0-1.0); Monocytes % (A) 4 %; Neutrophils # (A) 6.3 k/uL (1.3-7.7); Neutrophils % (A) 87 %; Platelet Count 191 k/uL (150-450); RBC 4.13 m/uL (3.80-5.40); RDW 14.4 % (11.5-15.5); WBC 7.2 k/uL (3.8-10.6)
[2021-05-25 20:44] LABS: Calcium 10.1 mg/dL (8.4-10.2); Potassium 4.4 mmol/L (3.5-5.1); Total Bilirubin 0.6 mg/dL (0.2-1.3); Total Protein 6.7 g/dL (6.3-8.2)
--- NOTE | 2021-05-25 21:30 | XR ---
EXAMINATION TYPE: XR chest 2V DATE OF EXAM: 05/25/2021 COMPARISON: Chest x-ray 10/09/2016 HISTORY: Fever, dizziness and back pain TECHNIQUE: Frontal and lateral views of the chest are obtained. FINDINGS: Postop changes are noted to the right shoulder. There is a generator in the left pectoral region, lead in the right ventricle. Patient is post median sternotomy. Technique is somewhat apical lordotic and rotated. Cardiac mediastinal silhouette is stable accounting for technique. No evident a irspace disease, pneumothorax, or pleural effusion. IMPRESSION: No acute cardiopulmonary process.
[2021-05-25 22:09] LABS: Appearance,Urine Clear (Clear); Bacteria,Urine Rare /hpf; Bilirubin,Urine Negative (Negative); Blood,Urine Negative (Negative); Color,Urine Yellow; Glucose,Urine (UA) Negative (Negative); Hyaline Casts,Urine 1 /lpf (0-2); Ketones,Urine 1+ (Negative); Leukocyte Esterase,Urine Large (Negative); Mucus,Urine Rare /hpf; Nitrite,Urine Negative (Negative); PH, Urine 5.5 (5.0-8.0); Protein,Urine Trace (Negative); RBC,Urine 2 /hpf (0-5); Squamous Epithelial Cell,Urine 1 /hpf (0-4); Urobilinogen,Urine <2.0 mg/dL (<2.0); WBC,Urine 62 /hpf (0-5)
[2021-05-25] MEDS ORDERED: LEVOFLOXACIN 500MG-D5W PMX 500 MG in DEXTROSE/WATER 1 100ML.BAG IVPB STA (22:21)
[2021-05-25] MEDS ORDERED: NALOXONE 0.4 MG/ML 1 ML VIAL IV PRN (22:27)
--- NOTE | 2021-05-25 22:35 | ED ---
General Adult HPI - General Chief complaint: Dizziness Stated complaint: dizziness, back pain Time Seen by Provider: 05/25/21 19:42 Source: patient, RN notes reviewed, old records reviewed Mode of arrival: ambulatory Limitations: no limitations - History of Present Illness Initial comments: 70-year-old female history of CK D presenting for evaluation of low back pain, dysuria, fever. Patient has had some nausea without significant vomiting. No abdominal pain. Pain is in her low back. She's had a minimal cough without URI symptoms otherwise. She does report chills as well. No measured fever at home but she is febrile in triage. - Related Data Home Medications Medication Instructions Recorded Confirmed Aspirin EC [Ecotrin Low Dose] 162 mg PO HS 06/20/16 10/08/19 Carvedilol [Coreg] 12.5 mg PO QAM 06/20/16 10/08/19 Famotidine [Pepcid] 20 mg PO DAILY 06/20/16 10/08/19 INSULIN LISPRO (humaLOG) [humaLOG] See Protocol SQ AC-TID PRN 06/20/16 10/08/19 Insulin Glargine [Lantus Vial] 20 unit SQ HS 06/20/16 10/08/19 Montelukast [Singulair] 10 mg PO HS 06/20/16 10/08/19 Rosuvastatin Calcium [Crestor] 5 mg PO HS 06/20/16 10/08/19 allopurinoL [Zyloprim] 300 mg PO HS 06/20/16 10/08/19 FLUoxetine HCL [PROzac] 20 mg PO DAILY 10/03/16 10/08/19 Isosorbide Mononitrate ER [Imdur] 30 mg PO QAM 10/03/16 10/08/19 Docusate [Colace] 100 mg PO DAILY PRN 11/01/16 10/05/19 Furosemide [Lasix] 40 mg PO DAILY 11/01/16 10/05/19 Losartan [Cozaar] 12.5 mg PO DAILY 11/01/16 10/08/19 traMADol HCL [Ultram] 50 mg PO Q6HR PRN 11/06/16 10/05/19 Biotin 10,000 mcg PO DAILY 01/20/18 10/08/19 Fish Oil/Dha/Epa [Fish Oil 1,200 1 cap PO DAILY 01/20/18 10/08/19 mg Fish Oil] Loratadine [Claritin] 10 mg PO HS 01/20/18 10/08/19 Carvedilol [Coreg] 25 mg PO HS 05/07/19 10/08/19 Beclomethasone Dip 80 Mcg/Puff 1 puff INHALATION DAILY 06/25/19 10/08/19 [Qvar 80 mcg] Spironolactone [Aldactone] 12.5 mg PO DAILY 06/25/19 10/08/19 Cinnamon Bark [Cinnamon] 500 mg PO DAILY 08/14/19 10/08/19 Acetaminophen Tab [Tylenol] 325 - 650 mg PO Q4H PRN 10/05/19 10/08/19 Evolocumab [Repatha Syringe] 140 mg SQ Q14D 10/05/19 10/08/19 Previous Rx's Medication Instructions Recorded Ranolazine [Ranexa] 500 mg PO Q12HR #60 tab.er.12h 06/24/16 ALPRAZolam [Xanax] 0.25 mg PO DAILY PRN #20 tab 10/12/16 Allergies Allergy/AdvReac Type Severity Reaction Status Date / Time amoxicillin [From Augmentin] Allergy Rash/Hives Verified 05/25/21 19:17 cefprozil [From Cefzil] Allergy Rash/Hives Verified 05/25/21 19:17 clavulanic acid Allergy Rash/Hives Verified 05/25/21 19:17 [From Augmentin] sulfamethoxazole Allergy Rash/Hives Verified 05/25/21 19:17 [From Bactrim] trimethoprim [From Bactrim] Allergy Rash/Hives Verified 05/25/21 19:17 Review of Systems ROS Statement: Those systems with pertinent positive or pertinent negative responses have been documented in the HPI. ROS Other: All systems not noted in ROS Statement are negative. Past Medical History Past Medical History: Asthma, Coronary Artery Disease (CAD), Chest Pain / Angina, Heart Failure, Diabetes Mellitus, GERD/Reflux, Hyperlipidemia, Hy pertension, Myocardial Infarction ([place]), Osteoarthritis (OA), Pneumonia, Renal Disease, Syncope Additional Past Medical History / Comment(s): [place] 1998, 2004, 2008, CARDIAC ARRES T 2016,GOUT, SPINAL STENOSIS, BRONCHITIS, CONSTIPATION, HX OF DIZZINESS & FALLS, AORTIC STENOSIS, KIDNEY FAILURE STAGE 3-B, PACER/AICD, Fatigue, very SOB w/exertion recently Last Myocardial Infarction Date:: 2007 History of Any Multi-Drug Resistant Organisms: None Reported Past Surgical History: AICD, Appendectomy, Back Surgery, Section, Coronary Bypass/CABG, Heart Catheterization With Stent, Joint Replacement, O rthopedic Surgery, Pacemaker Additional Past Surgical History / Comment(s): ANGELIC 08/18/19, TOTAL RIGHT SHOULDER, BACK SURGERY X2, QUAD CABG-"DIAPHRAGM PARALIZED AFTER SX HAD TO GO TO PULMONARY REHAB, 7 HEART CATHS-MULTIPLE STENTS 3 C-SECTIONS, OVARIAN CYST(RT) Past Anesthesia/Blood Transfusion Reactions: No Reported Reaction Additional Past Anesthesia/Blood Transfusion Reaction / Comment(s): HX BLOOD TRANSFUSION - NO REACTION. Date of Last Stent Placement:: UNKNOWN Type of Cardiac Device: AICD Device Placement Date:: 10-05-16 chest [employer] Past Psychological History: Anxiety, Depression Smoking Status: Never smoker Past Alcohol Use History: Occasional Past Drug Use History: None Reported - Past Family History Mother Family Medical History: No Reported History Additional Family Medical History / Comment(s): . General Exam Limitations: no limitations General appearance: alert, in no apparent distress Head exam: Present: atraumatic, normocephalic Eye exam: Present: normal appearance, PERRL ENT exam: Present: mucous membranes dry Neck exam: Present: normal inspection. Absent: tenderness, meningismus Respiratory exam: Present: normal lung sounds bilaterally. Absent: respiratory distress, wheezes Cardiovascular Exam: Present: regular rate, normal rhythm GI/Abdominal exam: Present: soft. Absent: distended, tenderness, guarding Extremities exam: Present: normal inspection, normal capillary refill. Absent: pedal edema Back exam: Present: CVA tenderness (R), CVA tenderness (L) Neurological exam: Present: alert, oriented X3, CN II-XII intact. Absent: motor sensory deficit Psychiatric exam: Present: normal affect, normal mood Skin exam: Present: warm, dry, intact. Absent: cyanosis, diaphoretic Course Vital Signs 05/25/21 05/25/21 19:13 21:55 Temperature 102.8 F H Pulse Rate 80 75 Respiratory 18 18 Rate Blood Pressure 128/66 120/77 O2 Sat by Pulse 96 98 Oximetry Medical Decision Making - Medical Decision Making 70-year-old female with dysuria, bilateral low back pain and fever. Patient has a normal CBC without leukocytosis. She has chronic kidney disease with a baseline creatinine of 2.2. Urine is positive with bacteria and 62 white cells. She will be admitted for IV antibiotics and IV fluids. - Lab Data Result diagrams: 05/25/21 20:30 05/25/21 20:30 Lab Results 05/25/21 05/25/21 05/25/21 Range/Units 20:30 20:30 21:41 WBC 7.2 (3.8-10.6) k/uL RBC 4.13 (3.80-5.40) m/uL Hgb 13.8 (11.4-16.0) gm/dL Hct 39.6 (34.0-46.0) % MCV 96.1 (80.0-100.0) fL MCH 33.4 (25.0-35.0) pg MCHC 34.7 (31.0-37.0) g/dL RDW 14.4 (11.5-15.5) % Plt Count 191 (150-450) k/uL MPV 7.8 Neutrophils % 87 % Lymphocytes % 6 % Monocytes % 4 % Eosinophils % 1 % Basophils % 1 % Neutrophils # 6.3 (1.3-7.7) k/uL Lymphocytes # 0.4 L (1.0-4.8) k/uL Monocytes # 0.3 (0-1.0) k/uL Eosinophils # 0.1 (0-0.7) k/uL Basophils # 0.0 (0-0.2) k/uL Sodium 130 L (137-145) mmol/L Potassium 4.4 (3.5-5.1) mmol/L Chloride 100 (98-107) mmol/L Carbon Dioxide 20 L (22-30) mmol/L Anion Gap 10 mmol/L BUN 39 H (7-17) mg/dL Creatinine 2.22 H (0.52-1.04) mg/dL Est GFR (CKD-EPI)AfAm 25 (>60 ml/min/1.73 sqM) Est GFR (CKD-EPI)NonAf 22 (>60 ml/min/1.73 sqM) Glucose 184 H (74-99) mg/dL Calcium 10.1 (8.4-10.2) mg/dL Total Bilirubin 0.6 (0.2-1.3) mg/dL AST 22 (14-36) U/L ALT 13 (4-34) U/L Alkaline Phosphatase 98 (38-126) U/L Total Protein 6.7 (6.3-8.2) g/dL Albumin 4.0 (3.5-5.0) g/dL Urine Color Yellow Urine Appearance Clear (Clear) Urine pH 5.5 (5.0-8.0) Ur Specific [place] 1.020 (1.001-1.035) Urine Protein Trace H (Negative) Urine Glucose (UA) Negative (Negative) Urine Ketones 1+ H (Negative) Urine Blood Negative (Negative) Urine Nitrite Negative (Negative) Urine Bilirubin Negative (Negative) Urine Urobilinogen <2.0 (<2.0) mg/dL Ur Leukocyte Esterase Large H (Negative) Urine RBC 2 (0-5) /hpf Urine WBC 62 H (0-5) /hpf Ur Squamous Epith Cells 1 (0-4) /hpf Urine Bacteria Rare H (None) /hpf Hyaline Casts 1 (0-2) /lpf Urine Mucus Rare H (None) /hpf Coronavirus (PCR) (Not Detectd) 05/25/21 Range/Units 21:41 WBC (3.8-10.6) k/uL RBC (3.80-5.40) m/uL Hgb (11.4-16.0) gm/dL Hct (34.0-46.0) % MCV (80.0-100.0) fL MCH (25.0-35.0) pg MCHC (31.0-37.0) g/dL RDW (11.5-15.5) % Plt Count (150-450) k/uL MPV Neutrophils % % Lymphocytes % % Monocytes % % Eosinophils % % Basophils % % Neutrophils # (1.3-7.7) k/uL Lymphocytes # (1.0-4.8) k/uL Monocytes # (0-1.0) k/uL Eosinophils # (0-0.7) k/uL Basophils # (0-0.2) k/uL Sodium (137-145) mmol/L Potassium (3.5-5.1) mmol/L Chloride (98-107) mmol/L Carbon Dioxide (22-30) mmol/L Anion Gap mmol/L BUN (7-17) mg/dL Creatinine (0.52-1.04) mg/dL Est GFR (CKD-EPI)AfAm (>60 ml/min/1.73 sqM) Est GFR (CKD-EPI)NonAf (>60 ml/min/1.73 sqM) Glucose (74-99) mg/dL Calcium (8.4-10.2) mg/dL Total Bilirubin (0.2-1.3) mg/dL AST (14-36) U/L ALT (4-34) U/L Alkaline Phosphatase (38-126) U/L Total Protein (6.3-8.2) g/dL Albumin (3.5-5.0) g/dL Urine Color Urine Appearance (Clear) Urine pH (5.0-8.0) Ur Specific [place] (1.001-1.035) Urine Protein (Negative) Urine Glucose (UA) (Negative) Urine Ketones (Negative) Urine Blood (Negative) Urine Nitrite (Negative) Urine Bilirubin (Negative) Urine Urobilinogen (<2.0) mg/dL Ur Leukocyte Esterase (Negative) Urine RBC (0-5) /hpf Urine WBC (0-5) /hpf Ur Squamous Epith Cells (0-4) /hpf Urine Bacteria (None) /hpf Hyaline Casts (0-2) /lpf Urine Mucus (None) /hpf Coronavirus (PCR) Not Detected (Not Detectd) Disposition Clinical Impression: Dehydration, Pyelonephritis Disposition: ADMITTED IP TO THIS [facility] Condition: Stable Is patient prescribed a controlled substance at d/c from ED?: No Referrals: Trace Christian MD [Primary Care Provider] - 1-2 days Decision to Admit Reason: Admit from EC Decision Date: 05/25/21 Decision Time: 22:36
[2021-05-25] MEDS: SODIUM CHLORIDE 0.9% 1,000 ML IV SCH (22:44)
[2021-05-26] MEDS ORDERED: MORPHINE SULFATE 2 MG/ML SYRINGE IVP PRN (01:36)
[2021-05-26] MEDS ORDERED: ONDANSETRON 4 MG/2 ML VIAL IVP PRN (01:38)
[2021-05-26] MEDS: MONTELUKAST 10 MG TAB PO SCH ×2 (02:18→21:15)
[2021-05-26 06:07] LABS: Glucose,Whole Blood 179 mg/dL (75-99)
[2021-05-26] MEDS: ACETAMINOPHEN TAB 325 MG TAB PO PRN ×2 (06:13→13:10)
[2021-05-26] MEDS: INSULIN ASPART (NovoLOG) 100 UNIT/ML VIAL SQ SCH ×4 (06:26→21:16)
[2021-05-26] MEDS: RANOLAZINE 500 MG TAB.ER.12H PO SCH ×2 (08:06→21:15)
[2021-05-26] MEDS: FLUoxetine HCL 20 MG CAP PO SCH (08:06)
[2021-05-26] MEDS: ASCORBIC ACID 500 MG TAB PO SCH (08:07)
[2021-05-26] MEDS: ISOSORBIDE MONONITRATE ER 30 MG TAB.ER.24H PO SCH (08:07)
[2021-05-26] MEDS: carvediloL 12.5 MG TAB PO SCH (08:07)
[2021-05-26] MEDS ORDERED: FUROSEMIDE 20 MG TAB PO SCH (09:00)
[2021-05-26] MEDS ORDERED: SPIRONOLACTONE 25 MG TAB PO SCH (09:00)
[2021-05-26] MEDS ORDERED: LOSARTAN 25 MG TAB PO SCH (09:00)
[2021-05-26] MEDS ORDERED: VANCOMYCIN 1,500 MG in SODIUM CHLORIDE 0.9% 250 ML IVPB ONE (12:30)
--- NOTE | 2021-05-26 12:31 | P.CRDCN ---
History of Present Illness History of present illness: This is Dr. Eugene dictating a consult on this patient The patient was interviewed and examined IMPRESSION / ASSESSMENT: Known coronary artery disease, old [place] Ischemic cardio myopathy Admitted with fever and being evaluated for pyelonephritis PLAN: Continue current medications for such continue cardiac medications Follow-up Dr. Christine as previously scheduled Management of her other medical problems and pyelonephritis per internal medicine She is a [employer] ICD in situ, I have asked the nurse to have [employer] commented it was interrogated She has not had an interrogation in a while HPI patient being treated for pyelonephritis Dr. Brown consulted cardiology because of her past history of an [place] She denies any chest discomfort or palpitations Orthopnea PND no undue shortness of breath She does get dizzy off and on when she takes a cardiac medications At this time she is completely pain-free lying flat in bed and comfortable She is being treated for pyelonephritis ROS: No fever chills or rigors, no cough, phlegm or expectoration, no nausea, vomiting or diarrhea, no hematuria, dysuria, no musculoskeletal complaints, no strokes or seizures, no skin lesions. 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 2-D echo and Doppler study in October 2020 showed moderately reduced LV systolic function ejection fraction 35-40% Aortic valve prosthesis transcatheter Akinetic apex and anterior wall Chest x-ray on this admission is normal White count normal, hemoglobin 13.8 Sodium 130 potassium 4.4 BUN 39 and creatinine 2.2 Elevated glucose Past Medical History Past Medical History: Asthma, Coronary Artery Disease (CAD), Chest Pain / Angina, Heart Failure, Diabetes Mellitus, GERD/Reflux, Hyperlipidemia, Hypertension, Myocardial Infarction ([place]), Osteoarthritis (OA), Pneumonia, Renal Disease, Syncope Additional Past Medical History / Comment(s): [place] 1997, 2004, 2008, CARDIAC ARREST 2016,GOUT, SPINAL STENOSIS, BRONCHITIS, CONSTIPATION, HX OF DIZZINESS & FALLS, AORTIC STENOSIS, KIDNEY FAILURE STAGE 3-B, PACER/AICD, Fatigue, very SOB w/exertion recently. Aortic Valve Replacement Dec, 2019. 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 Date of Last Stent Placement:: UNKNOWN Type of Cardiac Device: AICD Device Placement Date:: 10-05-16 chest [employer] Past Psychological History: Anxiety, Depression Additional Psychological History / Comment(s): . Smoking Status: Never smoker Past Alcohol Use History: Occasional Past Drug Use History: None Reported - Past Family History Mother Family Medical History: No Reported History Additional Family Medical History / Comment(s): . Medications and Allergies Home Medications Medication Instructions Recorded Confirmed Type Aspirin EC [Ecotrin Low Dose] 162 mg PO HS 06/20/16 05/25/21 History Carvedilol [Coreg] 12.5 mg PO DAILY 06/20/16 05/25/21 History Famotidine [Pepcid] 20 mg PO HS 06/20/16 05/25/21 History INSULIN LISPRO (humaLOG) [humaLOG] See Protocol SQ AC-TID PRN 06/20/16 05/25/21 History Insulin Glargine [Lantus Vial] 20 unit SQ HS 06/20/16 05/25/21 History Montelukast [Singulair] 10 mg PO HS 06/20/16 05/25/21 History allopurinoL [Zyloprim] 300 mg PO HS 06/20/16 05/25/21 History Ranolazine [Ranexa] 500 mg PO Q12HR #60 tab.er.12h 06/24/16 05/25/21 Rx FLUoxetine HCL [PROzac] 20 mg PO DAILY 10/03/16 05/25/21 History Isosorbide Mononitrate ER [Imdur] 30 mg PO DAILY 10/03/16 05/25/21 History Losartan [Cozaar] 12.5 mg PO DAILY 11/01/16 05/25/21 History traMADol HCL [Ultram] 50 mg PO Q6HR PRN 11/06/16 05/25/21 History Biotin 10,000 mcg PO DAILY 01/20/18 05/25/21 History Fish Oil/Dha/Epa [Fish Oil 1,200 1 cap PO DAILY 01/20/18 05/25/21 History mg Fish Oil] Carvedilol [Coreg] 25 mg PO HS 05/07/19 05/25/21 History Spironolactone [Aldactone] 12.5 mg PO DAILY 06/25/19 05/25/21 History Evolocumab [Repatha Syringe] 140 mg SQ Q14D 10/05/19 05/25/21 History Ascorbic Acid [Vitamin C] 500 mg PO DAILY 05/25/21 05/25/21 History Furosemide [Lasix] 20 mg PO BID 05/25/21 05/25/21 History Allergies Allergy/AdvReac Type Severity Reaction Status Date / Time amoxicillin [From Augmentin] Allergy Rash/Hives Verified 05/25/21 23:02 cefprozil [From Cefzil] Allergy Rash/Hives Verified 05/25/21 23:02 clavulanic acid Allergy Rash/Hives Verified 05/25/21 23:02 [From Augmentin] sulfamethoxazole Allergy Rash/Hives Verified 05/25/21 23:02 [From Bactrim] trimethoprim [From Bactrim] Allergy Rash/Hives Verified 05/25/21 23:02 Physical Exam Vitals: Vital Signs Temp Pulse Pulse Resp BP BP Pulse Ox 05/26/21 08:00 99.6 F 68 18 103/64 96 05/26/21 06:00 102 F H 05/26/21 00:09 98.2 F 66 16 109/59 100 05/25/21 23:23 69 18 128/69 94 L 05/25/21 22:46 100.2 F H 05/25/21 21:55 75 18 120/77 98 05/25/21 19:13 102.8 F H 80 18 128/66 96 Intake and Output 05/25/21 05/26/21 05/26/21 22:59 06:59 14:59 Other: Voiding Method Toilet Toilet # Voids 1 Weight 113.398 kg 95.3 kg Results 05/25/21 20:30 05/25/21 20:30 Cardiac Enzymes 05/25/21 Range/Units 20:30 AST 22 (14-36) U/L CBC 05/25/21 Range/Units 20:30 WBC 7.2 (3.8-10.6) k/uL RBC 4.13 (3.80-5.40) m/uL Hgb 13.8 (11.4-16.0) gm/dL Hct 39.6 (34.0-46.0) % Plt Count 191 (150-450) k/uL Comprehensive Metabolic Panel 05/25/21 Range/Units 20:30 Sodium 130 L (137-145) mmol/L Potassium 4.4 (3.5-5.1) mmol/L Chloride 100 (98-107) mmol/L Carbon Dioxide 20 L (22-30) mmol/L BUN 39 H (7-17) mg/dL Creatinine 2.22 H (0.52-1.04) mg/dL Glucose 184 H (74-99) mg/dL Calcium 10.1 (8.4-10.2) mg/dL AST 22 (14-36) U/L ALT 13 (4-34) U/L Alkaline Phosphatase 98 (38-126) U/L Total Protein 6.7 (6.3-8.2) g/dL Albumin 4.0 (3.5-5.0) g/dL Current Medications Generic Name Dose Route Start Last Admin Trade Name Freq PRN Reason Stop Dose Admin Acetaminophen 650 mg 05/25/21 22:27 05/26/21 06:13 Acetaminophen Tab 325 Mg Tab PO 650 mg Q6HR PRN Administration Mild Pain or Fever > 100.5 Allopurinol 300 mg 05/26/21 21:00 Allopurinol 300 Mg Tab PO HS [facility] Ascorbic Acid 500 mg 05/26/21 09:00 05/26/21 08:07 Ascorbic Acid 500 Mg Tab PO 500 mg DAILY CORIE Administration Aspirin 162 mg 05/26/21 21:00 Aspirin 81 Mg PO HS CORIE Carvedilol 12.5 mg 05/26/21 09:00 05/26/21 08:07 Carvedilol 12.5 Mg Tab PO 12.5 mg DAILY CORIE Administration Carvedilol 25 mg 05/26/21 21:00 Carvedilol 12.5 Mg Tab PO HS CORIE Famotidine 20 mg 05/26/21 21:00 Famotidine 20 Mg Tab PO HS [facility] Fluoxetine HCl 20 mg 05/26/21 09:00 05/26/21 08:06 Fluoxetine Hcl 20 Mg Cap PO 20 mg DAILY CORIE Administration Sodium Chloride 1,000 mls @ 75 mls/hr 05/25/21 22:30 05/25/21 22:44 Saline 0.9% IV 75 mls/hr .[id number] CORIE Administration Levofloxacin 500 mg/ IV 100 mls @ 100 mls/hr 05/26/21 23:00 Solution IVPB Q24H CORIE Insulin Aspart 0 unit 05/26/21 07:30 05/26/21 06:26 Insulin Aspart (Novolog) 100 Unit/Ml Vial SQ 2 unit ACHS [facility] Administration Protocol Insulin Detemir 20 unit 05/26/21 21:00 Insulin Detemir (Levemir) 100 Unit/Ml Syr SQ HS [facility] Isosorbide Mononitrate 30 mg 05/26/21 09:00 05/26/21 08:07 Isosorbide Mononitrate Er 30 Mg Tab.Er.24h PO 30 mg DAILY CORIE Administration Montelukast Sodium 10 mg 05/26/21 01:52 05/26/21 02:18 Montelukast 10 Mg Tab PO 10 mg HS CORIE Administration Morphine Sulfate 1 mg 05/26/21 01:36 05/26/21 02:18 Morphine Sulfate 2 Mg/Ml Syringe IVP 1 mg Q3HR PRN Administration pain Naloxone HCl 0.2 mg 05/25/21 22:27 Naloxone 0.4 Mg/Ml 1 Ml Vial IV Q2M PRN Opioid Reversal Ondansetron HCl 4 mg 05/26/21 01:38 05/26/21 02:17 Ondansetron 4 Mg/2 Ml Vial IVP 4 mg Q6HR PRN Administration Nausea And Vomiting Ranolazine 500 mg 05/26/21 09:00 05/26/21 08:06 Ranolazine 500 Mg Tab.Er.12h PO 500 mg Q12HR CORIE Administration Intake and Output 05/25/21 05/26/21 05/26/21 22:59 06:59 14:59 Other: Voiding Method Toilet Toilet # Voids 1 Weight 113.398 kg 95.3 kg 05/25/21 20:30 05/25/21 20:30
[2021-05-26] MEDS ORDERED: VANCOMYCIN IV PER PHARMACY 1 EACH MISC MISCELLANE PRN (13:00)
[2021-05-26] MEDS: SODIUM CHLORIDE 0.9% 1,000 ML IV SCH (13:05)
[2021-05-26 13:08] LABS: Glucose,Whole Blood 290 mg/dL (75-99)
--- NOTE | 2021-05-26 13:53 | CONS ---
CONSULTATION REASON FOR CONSULTATION: Renal failure. HISTORY OF PRESENT ILLNESS: Patient is a 70-year-old female with history of chronic kidney disease, NKF stage 3B, with baseline creatinine about 1.4 to 1.5 mg/dL. Etiology is nephrosclerosis. Patient was admitted to the hospital with complaints of increased weakness, fatigue. She was also dizzy and was having low back pain. She felt she may have had a low-grade temperature. No diarrhea, nausea or vomiting. Patient's UA showed evidence of pyuria and her blood cultures are growing Gram-positive cocci. Patient denies any open wounds or sores. Serum creatinine was 2.2 mg/dL when she came in. However, we have a creatinine of 2.7 on 04/24/2021. Patient states that it had gone up to 2.73 about 3 or 4 days prior to these labs as well. Currently patient is maintained on IV fluids. Blood pressure has been significantly low, with systolic of 109 to 103 mmHg. At home patient is maintained on a small dose of Cozaar at 12.5 mg daily. Currently maintained on Levaquin. PAST MEDICAL HISTORY: Significant for CKD, stage 3B, secondary to nephrosclerosis, baseline creatinine 1.4 to 1.5 mg/dL, type 2 diabetes, hypertension, coronary artery disease, asthma, CHF, gastroesophageal reflux disease, hyperlipidemia, pneumonia, coronary artery disease with history of cardiac arrest, spinal stenosis, constipation, aortic stenosis, history of pacemaker placement. PAST SURGICAL HISTORY: AICD, appendectomy, back surgery, , coronary artery bypass surgery, cardiac catheterization, coronary stent placement, ANGELIC, total right shoulder, back surgery, surgery for ovarian cyst and 3 C-sections. SOCIAL HISTORY: Negative for smoking, drug abuse or alcohol abuse. MEDICATIONS: Medications prior to admission include aspirin, Coreg, Pepcid, insulin, Singulair, Crestor, Zyloprim, Prozac, Imdur, Colace, Lasix, Cozaar, Claritin, Coreg, Aldactone, Tylenol, Ranexa, Xanax. ALLERGIES: ALLERGIES include AUGMENTIN which causes rash and hives, ZESTRIL, BACTRIM. All of them cause rash and hives. REVIEW OF SYSTEMS: As per HPI. Other systems negative. PHYSICAL EXAMINATION: Patient is comfortable, awake. She is not in any acute distress. Alert, oriented x3. Blood pressure is 103/64, heart rate 68 per minute. She had a temperature of 102 degrees Fahrenheit. EXAMINATION OF THE HEART: S1 and S2. EXAMINATION OF LUNGS: Bilateral breath sounds are heard. Abdomen is soft, non-tender. Examination of lower extremities shows no evidence of edema. TRUCKING MANAGER EXAM: Grossly intact. LABS: Sodium of 130, potassium 4.4, chloride 100, BUN 39, creatinine 2.2, hemoglobin 13.8 g/dL. UA shows WBC 62, protein trace. Coronavirus is negative. Chest x-ray showed no acute pulmonary process. ASSESSMENT: 1. Acute kidney injury associated with underlying infection and some degree of hypotension and hypoperfusion with systolic blood pressure on the lower side in the setting of use of angiotensin receptor blockers. I will hold off on diuretics and angiotensin receptor blockers for now. Patient is maintained on IV fluids, which we will continue. Check accurate I's and O's and repeat labs in a.m. Decrease dose of Coreg as well. 2. Pyuria. Rule out urinary tract infection. Urine culture is pending. However, blood culture is growing Gram-positive cocci. 3. Gram-positive bacteremia, source unclear; organism not yet identified. Patient is maintained on Levaquin. She has been started on vancomycin. We need to monitor vancomycin levels closely, especially if renal function is worsening. 4. Hypertension, maintained on Coreg. 5. CKD stage 3b secondary to nephrosclerosis. Baseline creatinine around 1.4- 1.5mg/dL PLAN: Hold diuretics. Hold Cozaar. Continue with IV fluids. Monitor vancomycin levels closely. Check accurate I's and O's. Decrease dose of Coreg and repeat labs in a.m. Thank you for this consultation. Will continue to follow the patient with you during her hospitalization. I will check an ultrasound of the kidneys if renal function is not further improved. Thank you for this consultation. MMODL / IJN: [id number] / AYAN
[2021-05-26] MEDS ORDERED: traMADol 50 MG TAB PO PRN (14:05)
--- NOTE | 2021-05-26 14:05 | P.HPIM ---
History of Present Illness H&P Date: 05/26/21 Chief Complaint: Not feeling well This is a very pleasant 70-year-old patient, follows with Dr. Trace Christian. Chronic stable medical conditions include asthma, CAD, CHF, diabetes, GERD, hyperlipidemia, hypertension, osteoarthritis, [facility] stenosis[facility] valve replacement December 2019. Also CAD with stent and coronary bypass. Patient's had multiple coronary stents. Patient presented yesterday after the morning she was just not feeling right feeling weak diet. She went shopping was more of a struggle. Started feeling totally tired and rundown. Started having some lower back spasms. Presented to ER was found to have a temperature 100.2. Admitted with pyelonephritis. IV antibiotics. No nausea vomiting. Decreased appetite. Review of systems: GEN.: Tired decreased appetite and rundown EYES: None HEENT: None NECK: None RESPIRATORY: None CARDIOVASCULAR: None GASTROINTESTINAL: None GENITOURINARY: None MUSCULOSKELETAL: Lower back pain spasms LYMPHATICS: None HEMATOLOGICAL: None PSYCHIATRY: None NEUROLOGICAL: None Past medical history to include: Asthma, CAD with stent and bypass, CHF, diabetes, GERD, hyperlipidemia, hypertension, primary osteoarthritis, cardiac arrest in 2017, gout, spinal stenosis, aortic stenosis, CK D, [place] AICD, anxiety depression Social history: Lives alone. No smoking. Alcohol occasionally. Family history: Reviewed, noncontributory to presentation Physical examination: VITAL SIGNS: 102.8, 80, 18, 1 20 x 66, 96% room air upon presentation GENERAL: BMI 43.9, laying in bed, awake, tired. EYES: Pupils equal. Conjunctiva normal. HEENT: External appearance of nose and ears normal, oral cavity grossly normal. NECK: JVD not raised; masses not palpable. HEART: First and second heart sounds are normal; no edema. LUNGS: Respiratory rate normal; clear to auscultation. ABDOMEN: Soft, nontender, liver spleen not palpable, no masses palpable. PSYCH: Alert and oriented x3; mood and affect normal. NEUROLOGICAL: Cranial nerves grossly intact; no facial asymmetry, power and sensation grossly intact. LYMPHATICS: No lymph nodes palpable in the axilla and neck INVESTIGATIONS, reviewed in the clinical context: WBC 7.2 hemoglobin 13.8 platelets 191 sodium 1:30 potassium 4.4 BUN 39 creatin ine 2.2 to UA positive for leukoesterase, WBC, bacteria Coronavirus [PCR]: Not detected Chest x-ray film personally reviewed by me-no obvious infiltrates Assessment and plan: -Acute pyelonephritis suspected gram-negative organism, causing sepsis, POA -CAD with history of stent and coronary bypass Aspirin, beta blanca -Chronic gout Allopurinol 300 mg daily at bedtime -Diabetes mellitus type 2 chronically on insulin Lantus 20 units daily at bedtime. Follow Accu-Cheks. -Depression and anxiety not otherwise specified Prozac 20 mg daily Essential hypertension Coreg 25 mg daily at bedtime and 12.5 mg daily -Chronic congestive heart failure from systolic dysfunction EF 30-35% [from 2017], from ischemic heart disease Patient at home takes Coreg, Lasix, Aldactone Patient is put on IV fluids 75 mL an hour. Diuretics being held for today. Resume tomorrow. Cultures are pending. Consultation to ID. Follow Accu-Cheks. Follow lites closely. Patient to be placed in telemetry. Given the complexity and severity of patient's condition expect the patient to be in the hospital at least for 2 overnights Past Medical History Past Medical History: Asthma, Coronary Artery Disease (CAD), Chest Pain / Angina, Heart Failure, Diabetes Mellitus, GERD/Reflux, Hyperlipidemia, Hypertension, Myocardial Infarction ([place]), Osteoarthritis (OA), Pneumonia, Renal Disease, Syncope Additional Past Medical History / Comment(s): [place] 1997, 2004, 2007, CARDIAC ARREST 2016,GOUT, SPINAL STENOSIS, BRONCHITIS, CONSTIPATION, HX OF DIZZINESS & F ALLS, AORTIC STENOSIS, KIDNEY FAILURE STAGE 3-B, PACER/AICD, Fatigue, very SOB w/exertion recently. Aortic Valve Replacement Dec, 2019. 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 Date of Last Stent Placement:: UNKNOWN Type of Cardiac Device: AICD Device Placement Date:: 10-05-16 [facility] Past Psychological History: Anxiety, Depression Additional Psychological History / Comment(s): . Smoking Status: Never smoker Past Alcohol Use History: Occasional Past Drug Use History: None Reported - Past Family History Mother Family Medical History: No Reported History Additional Family Medical History / Comment(s): . Medications and Allergies Home Medications Medication Instructions Recorded Confirmed Type Aspirin EC [Ecotrin Low Dose] 162 mg PO HS 06/20/16 05/25/21 History Carvedilol [Coreg] 12.5 mg PO DAILY 06/20/16 05/25/21 History Famotidine [Pepcid] 20 mg PO HS 06/20/16 05/25/21 History INSULIN LISPRO (humaLOG) [humaLOG] See Protocol SQ AC-TID PRN 06/20/16 05/25/21 History Insulin Glargine [Lantus Vial] 20 unit SQ HS 06/20/16 05/25/21 History Montelukast [Singulair] 10 mg PO HS 06/20/16 05/25/21 History allopurinoL [Zyloprim] 300 mg PO HS 06/20/16 05/25/21 History Ranolazine [Ranexa] 500 mg PO Q12HR #60 tab.er.12h 06/24/16 05/25/21 Rx FLUoxetine HCL [PROzac] 20 mg PO DAILY 10/03/16 05/25/21 History Isosorbide Mononitrate ER [Imdur] 30 mg PO DAILY 10/03/16 05/25/21 History Losartan [Cozaar] 12.5 mg PO DAILY 11/01/16 05/25/21 History traMADol HCL [Ultram] 50 mg PO Q6HR PRN 11/06/16 05/25/21 History Biotin 10,000 mcg PO DAILY 01/20/18 05/25/21 History Fish Oil/Dha/Epa [Fish Oil 1,200 1 cap PO DAILY 01/20/18 05/25/21 History mg Fish Oil] Carvedilol [Coreg] 25 mg PO HS 05/07/19 05/25/21 History Spironolactone [Aldactone] 12.5 mg PO DAILY 06/25/19 05/25/21 History Evolocumab [Repatha Syringe] 140 mg SQ Q14D 10/05/19 05/25/21 History Ascorbic Acid [Vitamin C] 500 mg PO DAILY 05/25/21 05/25/21 History Furosemide [Lasix] 20 mg PO BID 05/25/21 05/25/21 History Allergies Allergy/AdvReac Type Severity Reaction Status Date / Time amoxicillin [From Augmentin] Allergy Rash/Hives Verified 05/25/21 23:02 cefprozil [From Cefzil] Allergy Rash/Hives Verified 05/25/21 23:02 clavulanic acid Allergy Rash/Hives Verified 05/25/21 23:02 [From Augmentin] sulfamethoxazole Allergy Rash/Hives Verified 05/25/21 23:02 [From Bactrim] trimethoprim [From Bactrim] Allergy Rash/Hives Verified 05/25/21 23:02 Physical Exam Vitals: Vital Signs Temp Pulse Pulse Resp BP BP Pulse Ox 05/26/21 08:00 99.6 F 68 18 103/64 96 05/26/21 06:00 102 F H 05/26/21 00:09 98.2 F 66 16 109/59 100 05/25/21 23:23 69 18 128/69 94 L 05/25/21 22:46 100.2 F H 05/25/21 21:55 75 18 120/77 98 05/25/21 19:13 102.8 F H 80 18 128/66 96 Intake and Output 05/25/21 05/26/21 05/26/21 22:59 06:59 14:59 Other: Voiding Method Toilet Toilet # Voids 1 Weight 113.398 kg 95.3 kg Results CBC & Chem 7: 05/25/21 20:30 05/25/21 20:30 Labs: Abnormal Lab Results - Last 24 Hours (Table) 05/25/21 05/25/21 05/25/21 Range/Units 20:30 20:30 21:41 Lymphocytes # 0.4 L (1.0-4.8) k/uL Sodium 130 L (137-145) mmol/L Carbon Dioxide 20 L (22-30) mmol/L BUN 39 H (7-17) mg/dL Creatinine 2.22 H (0.52-1.04) mg/dL Glucose 184 H (74-99) mg/dL POC Glucose (mg/dL) (75-99) mg/dL Urine Protein Trace H (Negative) Urine Ketones 1+ H (Negative) Ur Leukocyte Esterase Large H (Negative) Urine WBC 62 H (0-5) /hpf Urine Bacteria Rare H (None) /hpf Urine Mucus Rare H (None) /hpf 05/26/21 Range/Units 06:05 Lymphocytes # (1.0-4.8) k/uL Sodium (137-145) mmol/L Carbon Dioxide (22-30) mmol/L BUN (7-17) mg/dL Creatinine (0.52-1.04) mg/dL Glucose (74-99) mg/dL POC Glucose (mg/dL) 179 H (75-99) mg/dL Urine Protein (Negative) Urine Ketones (Negative) Ur Leukocyte Esterase (Negative) Urine WBC (0-5) /hpf Urine Bacteria (None) /hpf Urine Mucus (None) /hpf Microbiology - Last 24 Hours (Table) 05/25/21 21:41 Urine Culture - Preliminary Urine,Voided Thrombosis Risk Factor Assmnt - Choose All That Apply Any of the Below Risk Factors Present?: Yes Each Factor Represents 1 point: Obesity (BMI >25) Other Risk Factors: Yes Each Risk Factor Represents 2 Points: Age 61-74 years Other congenital or acquired thrombophilia - If yes, enter type in comment: No Thrombosis Risk Factor Assessment Total Risk Factor Score: 3 Thrombosis Risk Factor Assessment Level: Moderate Risk
[2021-05-26 16:49] LABS: Glucose,Whole Blood 178 mg/dL (75-99)
[2021-05-26] MEDS ORDERED: ALPRAZolam 0.25 MG TAB PO PRN (17:33)
[2021-05-26] MEDS: FUROSEMIDE 20 MG TAB PO SCH (17:47)
[2021-05-26 19:55] LABS: Glucose,Whole Blood 202 mg/dL (75-99)
[2021-05-26] MEDS ORDERED: carvediloL 12.5 MG TAB PO SCH (21:00)
[2021-05-26] MEDS ORDERED: INSULIN DETEMIR (LEVEMIR) 100 UNIT/ML SYR SQ SCH (21:00)
[2021-05-26] MEDS ORDERED: MONTELUKAST 10 MG TAB PO SCH (21:00)
[2021-05-26] MEDS: ASPIRIN 81 MG PO SCH (21:15)
[2021-05-26] MEDS: ZOLPIDEM 5 MG TAB PO PRN (21:15)
[2021-05-26] MEDS: allopurinoL 300 MG TAB PO SCH (21:15)
[2021-05-26] MEDS: FAMOTIDINE 20 MG TAB PO SCH (21:16)
--- NOTE | 2021-05-26 22:27 | P.CONS ---
History of Present Illness - Reason for Consult Consult date: 05/26/21 sepsis/UTI Requesting physician: Everardo Brown - Chief Complaint left flank pain and dysuria x 1 week - History of Present Illness History of present illness : Patient is 70-year female presenting to the ER last night for evaluation of low back pain which is mostly in the left flank area dysuria and fever patient did have some nausea but no vomiting. Patient symptom has been going on for more than a week now patient denies having history of any trauma or fall patient also mentioned that she did have a blood work done in the outpatient setting and was noticed to have a worsening of her creatinine and the patient to follow with cardiology and nephrology services patient described the pain to the back to be more of a dull aching time sharp 5- 6 over 10 had no radiation with associated nausea but no vomiting and some associated dysuria patient on presentation the hospital have fever of 102 F with a fever of 102 this morning patient was started on Levaquin because of her multiple antibiotic allergies and infectious disease was consulted for further management subsequently blood pressures can be positive with gram-positive cocci Review of system: CONSTITUTIONAL: Positive for weakness along with the fever. EYES: No complaint. ENT: No complaint. RESPIRATORY: No complaint. CARDIOVASCULAR: No complaint. GENITOURINARY: As per history of present illness. GASTROINTESTINAL: No complaint. MUSCULOSKELETAL: No complaint. INTEGUMENTARY: No complaint. PSYCHOLOGIC: No complaint. ENDOCRINE: No complaint. NEUROLOGIC: No complaint. Past medical history : Reviewed, documented below Past surgical history : Reviewed, documented below Social history: Reviewed, documented below Medications: Reviewed, as documented below EXAMINATION: Vital sigans= Reviewed and documented below GENERAL DESCRIPTION elderly female lying in bed, no distress. No tachypnea or accessory muscle of respiration use. HEENT: Shows Pallor , no scleral icterus. Oral mucous membrane is dry. NECK: Trachea central, no thyromegaly. LUNGS: Unlabored breathing. Clear to auscultation anteriorly. No wheeze or crackle. HEART: S1, S2, regular rate and rhythm. ABDOMEN: Soft, mild left flank tenderness , guarding or rigidity EXTREMITIES: No edema of feet. SKIN: No rash, no masses palpable. NEUROLOGICAL: The patient is awake, alert, oriented x3, mood and affect normal. LABS AND RADIOLOGY: Reviewed results see below Assessment :1- Patient presented to hospital with sepsis in this patient did have fever elevated white count significantly positive UA left flank tenderness high clinical suspicion for left-sided pyelonephritis [id number] bacteremia source likely left-sided pyelonephritis 3-patient with renal insufficiency and high risk of nephrotoxicity from vancomy susy 4-patient with multiple antibiotic allergies that would limit the number of antibiotics safe to use Plan: 1-discontinue Levaquin 2-daptomycin 6 mg/kg daily 3-check ultrasound of the kidney and bladder area We will follow on clinical condition and cultures to further adjust medication if needed Thank you for this consultation we will follow the patient along with you Past Medical History Past Medical History: Asthma, Coronary Artery Disease (CAD), Chest Pain / Angina, Heart Failure, Diabetes Mellitus, GERD/Reflux, Hyperlipidemia, Hypertension, Myocardial Infarction ([place]), Osteoarthritis (OA), Pneumonia, Renal Disease, Syncope Additional Past Medical History / Comment(s): [place] 1997, 2003, 2007, CARDIAC ARREST 2016,GOUT, SPINAL STENOSIS, BRONCHITIS, CONSTIPATION, HX OF DIZZINESS & FALLS, AORTIC STENOSIS, KIDNEY FAILURE STAGE 3-B, PACER/AICD, Fatigue, very SOB w/exertion recently. Aortic Valve Replacement Dec, 2019. Last Myocardial Infarction Date:: 2007 History of Any Multi-Drug Resistant Organisms: None Reported Past Surgical History: AICD, Appendectomy, Back Surgery, Section, Coronary Bypass/CABG, Heart Catheterization With Stent, Joint Replacement, Orthopedic Surgery, Pacemaker Additional Past Surgical History / Comment(s): ANGELIC 08/18/19, TOTAL RIGHT SHOULDER, BACK SURGERY X2, QUAD CABG-"DIAPHRAGM PARALIZED AFTER SX HAD TO GO TO PULMONARY REHAB, 7 HEART CATHS-MULTIPLE STENTS 3 C-SECTIONS, OVARIAN CYST(RT) Past Anesthesia/Blood Transfusion Reactions: No Reported Reaction Additional Past Anesthesia/Blood Transfusion Reaction / Comm: HX BLOOD VILCHIS SFUSION - NO REACTION. Date of Last Stent Placement:: UNKNOWN Type of Cardiac Device: AICD Device Placement Date:: 10-05-16 [facility] Past Psychological History: Anxiety, Depression Additional Psychological History / Comment(s): . Smoking Status: Never smoker Past Alcohol Use History: Occasional Past Drug Use History: None Reported - Past Family History Mother Family Medical History: No Reported History Additional Family Medical History / Comment(s): . Medications and Allergies Home Medications Medication Instructions Recorded Confirmed Type Aspirin EC [Ecotrin Low Dose] 162 mg PO HS 06/20/16 05/25/21 History Carvedilol [Coreg] 12.5 mg PO DAILY 06/20/16 05/25/21 History Famotidine [Pepcid] 20 mg PO HS 06/20/16 05/25/21 History INSULIN LISPRO (humaLOG) [humaLOG] See Protocol SQ AC-TID PRN 06/20/16 05/25/21 History Insulin Glargine [Lantus Vial] 20 unit SQ HS 06/20/16 05/25/21 History Montelukast [Singulair] 10 mg PO HS 06/20/16 05/25/21 History allopurinoL [Zyloprim] 300 mg PO HS 06/20/16 05/25/21 History Ranolazine [Ranexa] 500 mg PO Q12HR #60 tab.er.12h 06/24/16 05/25/21 Rx FLUoxetine HCL [PROzac] 20 mg PO DAILY 10/03/16 05/25/21 History Isosorbide Mononitrate ER [Imdur] 30 mg PO DAILY 10/03/16 05/25/21 History Losartan [Cozaar] 12.5 mg PO DAILY 11/01/16 05/25/21 History traMADol HCL [Ultram] 50 mg PO Q6HR PRN 11/06/16 05/25/21 History Biotin 10,000 mcg PO DAILY 01/20/18 05/25/21 History Fish Oil/Dha/Epa [Fish Oil 1,200 1 cap PO DAILY 01/20/18 05/25/21 History mg Fish Oil] Carvedilol [Coreg] 25 mg PO HS 05/07/19 05/25/21 History Spironolactone [Aldactone] 12.5 mg PO DAILY 06/25/19 05/25/21 History Evolocumab [Repatha Syringe] 140 mg SQ Q14D 10/05/19 05/25/21 History Ascorbic Acid [Vitamin C] 500 mg PO DAILY 05/25/21 05/25/21 History Furosemide [Lasix] 20 mg PO BID 05/25/21 05/25/21 History Allergies Allergy/AdvReac Type Severity Reaction Status Date / Time amoxicillin [From Augmentin] Allergy Rash/Hives Verified 05/25/21 23:02 cefprozil [From Cefzil] Allergy Rash/Hives Verified 05/25/21 23:02 clavulanic acid Allergy Rash/Hives Verified 05/25/21 23:02 [From Augmentin] sulfamethoxazole Allergy Rash/Hives Verified 05/25/21 23:02 [From Bactrim] trimethoprim [From Bactrim] Allergy Rash/Hives Verified 05/25/21 23:02 Physical Exam Vitals: Vital Signs Temp Pulse Pulse Resp BP BP Pulse Ox 05/26/21 14:10 98.2 F 65 18 94/57 95 05/26/21 13:05 99.2 F 05/26/21 08:00 99.6 F 68 18 103/64 96 05/26/21 06:00 102 F H 05/26/21 00:09 98.2 F 66 16 109/59 100 05/25/21 23:23 69 18 128/69 94 L 05/25/21 22:46 100.2 F H 05/25/21 21:55 75 18 120/77 98 05/25/21 19:13 102.8 F H 80 18 128/66 96 Intake and Output 05/25/21 05/26/21 05/26/21 22:59 06:59 14:59 Other: Voiding Method Toilet Toilet # Voids 1 Weight 113.398 kg 95.3 kg Results CBC & Chem 7: 05/25/21 20:30 05/25/21 20:30 Labs: Abnormal Lab Results - Last 24 Hours (Table) 05/25/21 05/25/21 05/25/21 Range/Units 20:30 20:30 21:41 Lymphocytes # 0.4 L (1.0-4.8) k/uL Sodium 130 L (137-145) mmol/L Carbon Dioxide 20 L (22-30) mmol/L BUN 39 H (7-17) mg/dL Creatinine 2.22 H (0.52-1.04) mg/dL Glucose 184 H (74-99) mg/dL POC Glucose (mg/dL) (75-99) mg/dL Urine Protein Trace H (Negative) Urine Ketones 1+ H (Negative) Ur Leukocyte Esterase Large H (Negative) Urine WBC 62 H (0-5) /hpf Urine Bacteria Rare H (None) /hpf Urine Mucus Rare H (None) /hpf 05/26/21 05/26/21 Range/Units 06:05 13:01 Lymphocytes # (1.0-4.8) k/uL Sodium (137-145) mmol/L Carbon Dioxide (22-30) mmol/L BUN (7-17) mg/dL Creatinine (0.52-1.04) mg/dL Glucose (74-99) mg/dL POC Glucose (mg/dL) 179 H 290 H (75-99) mg/dL Urine Protein (Negative) Urine Ketones (Negative) Ur Leukocyte Esterase (Negative) Urine WBC (0-5) /hpf Urine Bacteria (None) /hpf Urine Mucus (None) /hpf Microbiology - Last 24 Hours (Table) 05/25/21 20:22 Blood Culture - Final Blood 05/25/21 20:02 Blood Culture - Final Blood 05/25/21 21:41 Urine Culture - Preliminary Urine,Voided
[2021-05-26] MEDS ORDERED: LEVOFLOXACIN 500MG-D5W PMX 500 MG in DEXTROSE/WATER 1 100ML.BAG IVPB SCH (23:00)
[2021-05-27 06:17] LABS: Glucose,Whole Blood 234 mg/dL (75-99)
[2021-05-27] MEDS: INSULIN ASPART (NovoLOG) 100 UNIT/ML VIAL SQ SCH ×4 (06:57→21:00)
[2021-05-27] MEDS: FUROSEMIDE 20 MG TAB PO SCH (08:13)
[2021-05-27] MEDS: SODIUM CHLORIDE 0.9% 1,000 ML IV SCH ×2 (08:54→12:56)
[2021-05-27] MEDS: ISOSORBIDE MONONITRATE ER 30 MG TAB.ER.24H PO SCH (08:55)
[2021-05-27] MEDS: ASCORBIC ACID 500 MG TAB PO SCH (08:55)
[2021-05-27] MEDS: RANOLAZINE 500 MG TAB.ER.12H PO SCH ×2 (08:55→21:00)
[2021-05-27] MEDS: FLUoxetine HCL 20 MG CAP PO SCH (08:55)
[2021-05-27] MEDS: carvediloL 12.5 MG TAB PO SCH (08:55)
[2021-05-27] MEDS ORDERED: SPIRONOLACTONE 25 MG TAB PO SCH (09:00)
--- NOTE | 2021-05-27 09:21 | P.PN ---
Subjective Progress Note Date: 05/27/21 Principal diagnosis: Coronary artery disease/ischemic cardiomyopathy The patient is a 70-year-old female patient was admitted to the hospital mainly with pyelonephritis. We consulted to see the patient for further cardiac evaluation. She has CAD with prior revascularization an ischemic cardiomyopathy and status post AICD. The patient was seen this morning. She denies any symptoms of chest pain or chest discomfort. She is hemodynamically stable. She is euvolemic on exa mination. She is on maximize medical treatment. From a cardiovascular standpoint of view, we advise continue the current medical regimen and will follow-up with the patient on as-needed basis. Objective - Vital Signs Vital signs: Vital Signs Temp 98.1 F 05/27/21 08:52 Pulse 62 05/27/21 08:52 Resp 16 05/27/21 08:52 BP 115/58 05/27/21 08:52 Pulse Ox 100 05/27/21 08:52 Intake & Output 05/26/21 05/27/21 05/27/21 18:59 06:59 18:59 Weight 95.1 kg Other: Voiding Method Toilet Toilet # Voids 1 - Constitutional General appearance: Present: no acute distress - Respiratory Respiratory: bilateral: CTA - Cardiovascular Rhythm: regular Heart sounds: normal: S1, S2 Abnormal Heart Sounds: Present: systolic murmur - Labs CBC & Chem 7: 05/25/21 20:30 05/27/21 07:21 Labs: Abnormal Lab Results - Last 24 Hours (Table) 05/26/21 05/26/21 05/26/21 Range/Units 13:01 16:47 19:53 Creatinine (0.52-1.04) mg/dL POC Glucose (mg/dL) 290 H 178 H 202 H (75-99) mg/dL Hemoglobin A1c (4.0-6.0) % 05/26/21 05/27/21 05/27/21 Range/Units Unknown 06:15 07:21 Creatinine 2.17 H (0.52-1.04) mg/dL POC Glucose (mg/dL) 234 H (75-99) mg/dL Hemoglobin A1c 7.7 H (4.0-6.0) % Microbiology - Last 24 Hours (Table) 05/25/21 20:22 Blood Culture Gram Stain - Preliminary Blood Blood Culture - Preliminary Enterococcus faecalis 05/25/21 20:02 Blood Culture Gram Stain - Preliminary Blood 05/25/21 20:22 Blood Culture - Final Blood 05/25/21 20:02 Blood Culture - Final Blood Assessment and Plan Assessment: Assessment #1 pyelonephritis #2 CAD seems to be stable #3 ischemic cardiomyopathy seems to be stable as well #4 status post AICD #5 valvular heart disease Plan #1 continue the current medical regimen #2 follow-up with the patient on when necessary
--- NOTE | 2021-05-27 09:36 | US ---
EXAMINATION TYPE: US kidneys/renal and bladder DATE OF EXAM: 05/27/2021 COMPARISON: NONE CLINICAL HISTORY: uti and bacteremia. EXAM MEASUREMENTS: Right Kidney: 10.2 x 5.2 x 5.2 cm Left Kidney: 10.7 x 5.7 x 4.9 cm Morbidly obese patient making exam technically difficult and somewhat limited. Right Kidney: No hydronephrosis or masses seen Left Kidney: mild hydro Bladder: wnl No nephrolithiasis is seen. No masses are identified. The urinary bladder is anechoic. Bilateral ureteral jets are seen. IMPRESSION: Mild left-sided hydronephrosis suggested.
[2021-05-27 11:48] LABS: Glucose,Whole Blood 321 mg/dL (75-99)
[2021-05-27] MEDS ORDERED: VANCOMYCIN 1,500 MG in SODIUM CHLORIDE 0.9% 250 ML IVPB ONE (12:00)
--- NOTE | 2021-05-27 15:19 | P.PN ---
Subjective Progress Note Date: 05/27/21 Follow-up for acute kidney injury. Objective - Vital Signs Vital signs: Vital Signs Temp 98.1 F 05/27/21 08:52 Pulse 59 L 05/27/21 11:30 Resp 16 05/27/21 11:30 BP 94/59 05/27/21 11:30 Pulse Ox 99 05/27/21 11:30 Intake & Output 05/26/21 05/27/21 05/27/21 18:59 06:59 18:59 Intake Total 360 Balance 360 Weight 95.1 kg Intake: Oral 360 Other: Voiding Method Toilet Toilet Toilet # Voids 1 - Exam No acute distress S1-S2 heard Decreased breath sounds Abdomen soft No edema - Labs CBC & Chem 7: 05/25/21 20:30 05/27/21 07:21 Labs: Abnormal Lab Results - Last 24 Hours (Table) 05/26/21 05/26/21 05/27/21 Range/Units 16:47 19:53 06:15 Creatinine (0.52-1.04) mg/dL POC Glucose (mg/dL) 178 H 202 H 234 H (75-99) mg/dL 05/27/21 05/27/21 Range/Units 07:21 11:46 Creatinine 2.17 H (0.52-1.04) mg/dL POC Glucose (mg/dL) 321 H (75-99) mg/dL Microbiology - Last 24 Hours (Table) 05/26/21 12:10 Blood Culture - Preliminary Blood No Growth after 24 hours 05/25/21 21:41 Urine Culture - Preliminary Urine,Voided Group D Enterococcus Strep agalactiae - (group b) 05/25/21 20:22 Blood Culture Gram Stain - Preliminary Blood Blood Culture - Preliminary Enterococcus faecalis 05/25/21 20:02 Blood Culture Gram Stain - Preliminary Blood Assessment and Plan Assessment: #1 acute kidney injury secondary to septic ATN with low blood pressures. #2 CK D stage III secondary to nephrosclerosis with a baseline creatinine of 1.4-1.6 MG per DL. #3 enterococcus UTI #4 hypotensive episodes Plan: #1 continue with IV fluids. #2 discontinue Lasix and Aldactone. Agree with holding losartan for now. #3 decrease carvedilol to 3.125 mg twice a day. #4 antibiotics as per infectious disease #5 avoid nephrotoxic agents and hypotensive episodes.
--- NOTE | 2021-05-27 15:48 | P.PN ---
Progress Note - Text Progress Note Date: 05/27/21 Chief Complaint: Not feeling well This is a very pleasant 70-year-old patient, follows with Dr. Trace Christian. Chronic stable medical conditions include asthma, CAD, CHF, diabetes, GERD, hyperlipidemia, hypertension, osteoarthritis, spinal stenosis, pacesetter AICD, aortic valve replacement December 2019. Also CAD with stent and coronary bypass. Patient's had multiple coronary stents. Patient presented yesterday after the morning she was just not feeling right feeling weak diet. She went shopping was more of a struggle. Started feeling totally tired and rundown. Started having some lower back spasms. Presented to ER was found to have a temperature 100.2. Admitted with pyelonephritis. IV antibiotics. No nausea vomiting. Decreased appetite. 05/27/2021: Laying in bed. Feeling a bit better. Did tolerate some diet. No abdominal pain. Afebrile. Blood culture growing Enterococcus faecalis. Urine culture positive for group B enterococcus and Streptococcus agalactiae. On IV daptomycin Review of systems: Was done for constitutional, cardiovascular, GI, pulmonary. relevant finding as above Active Medications Acetaminophen (Acetaminophen Tab 325 Mg Tab) 650 mg PO Q6HR PRN PRN Reason: Mild Pain or Fever > 100.5 Last Admin: 05/26/21 13:10 Dose: 650 mg Documented by: Allopurinol (Allopurinol 300 Mg Tab) 300 mg PO [facility] Last Admin: 05/26/21 21:15 Dose: 300 mg Documented by: Alprazolam (Alprazolam 0.25 Mg Tab) 0.25 mg PO Q8H PRN PRN Reason: Anxiety Last Admin: 05/26/21 17:46 Dose: 0.25 mg Documented by: Ascorbic Acid (Ascorbic Acid 500 Mg Tab) 500 mg PO DAILY [facility] Last Admin: 05/27/21 08:55 Dose: 500 mg Documented by: Aspirin (Aspirin 81 Mg) 162 mg PO [facility] Last Admin: 05/26/21 21:15 Dose: 162 mg Documented by: Carvedilol (Carvedilol 3.125 Mg Tab) 3.125 mg PO -BRKFST [facility] Famotidine (Famotidine 20 Mg Tab) 20 mg PO [facility] Last Admin: 05/26/21 21:16 Dose: 20 mg Documented by: Fluoxetine HCl (Fluoxetine Hcl 20 Mg Cap) 20 mg PO DAILY [facility] Last Admin: 05/27/21 08:55 Dose: 20 mg Documented by: Sodium Chloride (Saline 0.9%) 1,000 mls @ 75 mls/hr IV .[id number] [facility] Last Admin: 05/27/21 12:56 Dose: 75 mls/hr Documented by: Daptomycin 600 mg/ Sodium (Chloride) 50 mls @ 100 mls/hr IVPB Q48H [facility]; Protocol Last Admin: 05/26/21 14:31 Dose: 100 mls/hr Documented by: Insulin Aspart (Insulin Aspart (Novolog) 100 Unit/Ml Vial) 0 unit SQ ACHS [facility]; Protocol Last Admin: 05/27/21 12:55 Dose: 5 unit Documented by: Insulin Detemir (Insulin Detemir (Levemir) 100 Unit/Ml Syr) 20 unit SQ [facility] Last Admin: 05/26/21 21:28 Dose: 20 unit Documented by: Isosorbide Mononitrate (Isosorbide Mononitrate Er 30 Mg Tab.Er.24h) 30 mg PO DAILY [facility] Last Admin: 05/27/21 08:55 Dose: 30 mg Documented by: Montelukast Sodium (Montelukast 10 Mg Tab) 10 mg PO HS [facility] Last Admin: 05/26/21 21:15 Dose: 10 mg Documented by: Morphine Sulfate (Morphine Sulfate 2 Mg/Ml Syringe) 1 mg IVP Q3HR PRN PRN Reason: pain Last Admin: 05/26/21 02:18 Dose: 1 mg Documented by: Naloxone HCl (Naloxone 0.4 Mg/Ml 1 Ml Vial) 0.2 mg IV Q2M PRN PRN Reason: Opioid Reversal Ondansetron HCl (Ondansetron 4 Mg/2 Ml Vial) 4 mg IVP Q6HR PRN PRN Reason: Nausea And Vomiting Last Admin: 05/26/21 02:17 Dose: 4 mg Documented by: Ranolazine (Ranolazine 500 Mg Tab.Er.12h) 500 mg PO Q12HR [facility] Last Admin: 05/27/21 08:55 Dose: 500 mg Documented by: Tramadol HCl (Tramadol 50 Mg Tab) 50 mg PO Q6HR PRN PRN Reason: Pain Last Admin: 05/26/21 17:47 Dose: 50 mg Documented by: Zolpidem Tartrate (Zolpidem 5 Mg Tab) 2.5 mg PO HS PRN PRN Reason: Insomnia Last Admin: 05/26/21 21:15 Dose: 2.5 mg Documented by: Past medical history to include: Asthma, CAD with stent and bypass, CHF, diabetes, GERD, hyperlipidemia, hypertension, primary osteoarthritis, cardiac arrest in 2017, gout, spinal stenosis, aortic stenosis, CK D, [place] AICD, anxiety depression Social history: Lives alone. No smoking. Alcohol occasionally. Family history: Reviewed, noncontributory to presentation Physical examination: VITAL SIGNS: 98.8, 60, 18, 101/57, 95% room air GENERAL: Laying in bed, awake, not in distress. EYES: Pupils equal. Conjunctiva normal. HEENT: External appearance of nose and ears normal, oral cavity grossly normal. NECK: JVD not raised; masses not palpable. HEART: First and second heart sounds are normal; no edema. LUNGS: Respiratory rate normal; clear to auscultation. ABDOMEN: Soft, nontender, liver spleen not palpable, no masses palpable. PSYCH: Alert and oriented x3; mood and affect normal. INVESTIGATIONS, reviewed in the clinical context: May 27: Creatinine 2.17 Urine culture: Positive for group D enterococcus, Streptococcus agalactiae Blood culture [March 25] positive for Enterococcus faecalis WBC 7.2 hemoglobin 13.8 platelets 191 sodium 1:30 potassium 4.4 BUN 39 creatinine 2.2 to UA positive for leukoesterase, WBC, bacteria Coronavirus [PCR]: Not detected Chest x-ray film personally reviewed by me-no obvious infiltrates Assessment and plan: -Acute pyelonephritis, from Enterococcus faecalis, causing sepsis, POA IV daptomycin -Sepsis from acute pyelonephritis. -Acute UTI with cystitis, positive with troponin D enterococcus IV daptomycin -CAD with history of stent and coronary bypass Aspirin, beta blanca -Chronic gout Allopurinol 300 mg daily at bedtime -Diabetes mellitus type 2 chronically on insulin, uncontrolled with hype rglycemia Increase Lantus 28 units daily at bedtime. Follow Accu-Cheks. -Depression and anxiety not otherwise specified Prozac 20 mg daily Essential hypertension decrease Coreg -Chronic congestive heart failure from systolic dysfunction EF 30-35% [from 2017], from ischemic heart disease Patient at home takes Coreg, Lasix, Aldactone IV daptomycin. Increase Levemir to 28 units daily at bedtime. Discussed with the patient. Blood pressure running low. Decrease Coreg
[2021-05-27 16:49] LABS: Glucose,Whole Blood 161 mg/dL (75-99)
[2021-05-27] MEDS: ACETAMINOPHEN TAB 325 MG TAB PO PRN (17:02)
[2021-05-27 20:18] LABS: Glucose,Whole Blood 174 mg/dL (75-99)
[2021-05-27] MEDS: allopurinoL 300 MG TAB PO SCH (21:00)
[2021-05-27] MEDS: MONTELUKAST 10 MG TAB PO SCH (21:00)
[2021-05-27] MEDS: ASPIRIN 81 MG PO SCH (21:00)
[2021-05-27] MEDS: FAMOTIDINE 20 MG TAB PO SCH (21:00)
[2021-05-27] MEDS: INSULIN DETEMIR (LEVEMIR) 100 UNIT/ML SYR SQ SCH (21:01)
--- NOTE | 2021-05-27 21:47 | PN ---
PROGRESS NOTE DATE OF SERVICE: 05/27/2021 REASON FOR FOLLOW UP: Enterococcus faecalis bacteremia secondary to pyelonephritis. INTERVAL HISTORY: The patient is afebrile. The patient is breathing comfortably. The patient's pain to the left leg has slightly decreased in intensity. No nausea, no vomiting. No abdominal pain, no diarrhea. PHYSICAL EXAMINATION: Blood pressure 121/74 with a pulse of 63, temperature 98.5. She is 100% on room air. General description is an elderly female lying in bed in no distress. Respiratory system: Unlabored breathing, clear to auscultation anteriorly. Heart S1, S2. Regular rate and rhythm. Abdomen soft, no tenderness. Extremities: No edema of the feet. LABS: Creatinine is 2.17. Ultrasound shows mild hydronephrosis on the left side. Blood culture ( ) so far negative. DIAGNOSTIC IMPRESSION AND PLAN: Patient with Enterococcus faecalis bacteremia secondary to the left-sided pyelonephritis with mild hydronephrosis reported on ultrasound. Patient is covered with daptomycin because of her penicillin allergy and borderline kidney function. Continue supportive care. MMODL / IJN: [id number] /
[2021-05-28 06:17] LABS: Glucose,Whole Blood 138 mg/dL (75-99)
[2021-05-28] MEDS: INSULIN ASPART (NovoLOG) 100 UNIT/ML VIAL SQ SCH ×4 (06:27→20:33)
[2021-05-28] MEDS: ACETAMINOPHEN TAB 325 MG TAB PO PRN ×3 (06:47→20:34)
[2021-05-28] MEDS ORDERED: carvediloL 3.125 MG TAB PO SCH (07:30)
[2021-05-28] MEDS: RANOLAZINE 500 MG TAB.ER.12H PO SCH ×2 (08:49→20:34)
[2021-05-28] MEDS: ISOSORBIDE MONONITRATE ER 30 MG TAB.ER.24H PO SCH (08:49)
[2021-05-28] MEDS: FLUoxetine HCL 20 MG CAP PO SCH (08:49)
[2021-05-28] MEDS: SODIUM CHLORIDE 0.9% 1,000 ML IV SCH ×3 (08:49→22:40)
[2021-05-28] MEDS: ASCORBIC ACID 500 MG TAB PO SCH (08:49)
[2021-05-28 09:06] LABS: Basophils % (A) 1 %; Eosinophils # (A) 0.3 k/uL (0-0.7); Eosinophils % (A) 6 %; HCT 34.1 % (34.0-46.0); HGB 11.1 gm/dL (11.4-16.0); Lymphocytes # (A) 1.2 k/uL (1.0-4.8); Lymphocytes % (A) 27 %; MCH 32.6 pg (25.0-35.0); MCHC 32.5 g/dL (31.0-37.0); MCV 100.3 fL (80.0-100.0); Macrocytosis Slight; Monocytes # (A) 0.3 k/uL (0-1.0); Monocytes % (A) 7 %; Neutrophils # (A) 2.5 k/uL (1.3-7.7); Neutrophils % (A) 56 %; Platelet Count 138 k/uL (150-450); RDW 13.8 % (11.5-15.5); WBC 4.4 k/uL (3.8-10.6)
[2021-05-28 09:18] LABS: Potassium 4.4 mmol/L (3.5-5.1)
--- NOTE | 2021-05-28 09:48 | P.PN ---
Subjective Progress Note Date: 05/28/21 Follow-up for acute kidney injury. Objective - Vital Signs Vital signs: Vital Signs Temp 97.9 F 05/28/21 07:40 Pulse 54 L 05/28/21 07:40 Resp 16 05/28/21 07:40 BP 117/59 05/28/21 07:40 Pulse Ox 98 05/28/21 07:40 Intake & Output 05/27/21 05/28/21 05/28/21 18:59 06:59 18:59 Intake Total 360 Balance 360 Intake: Oral 360 Other: Voiding Method Toilet Toilet - Exam No acute distress S1-S2 heard Decreased breath sounds Abdomen soft No edema - Labs CBC & Chem 7: 05/28/21 08:18 05/28/21 08:18 Labs: Abnormal Lab Results - Last 24 Hours (Table) 05/27/21 05/27/21 05/27/21 Range/Units 11:46 16:47 20:05 RBC (3.80-5.40) m/uL Hgb (11.4-16.0) gm/dL MCV (80.0-100.0) fL Plt Count (150-450) k/uL Sodium (137-145) mmol/L Chloride (98-107) mmol/L Carbon Dioxide (22-30) mmol/L BUN (7-17) mg/dL Creatinine (0.52-1.04) mg/dL POC Glucose (mg/dL) 321 H 161 H 174 H (75-99) mg/dL 05/28/21 05/28/21 05/28/21 Range/Units 06:08 08:18 08:18 RBC 3.40 L (3.80-5.40) m/uL Hgb 11.1 L (11.4-16.0) gm/dL MCV 100.3 H (80.0-100.0) fL Plt Count 138 L (150-450) k/uL Sodium 135 L (137-145) mmol/L Chloride 109 H (98-107) mmol/L Carbon Dioxide 18 L (22-30) mmol/L BUN 35 H (7-17) mg/dL Creatinine 1.88 H (0.52-1.04) mg/dL POC Glucose (mg/dL) 138 H (75-99) mg/dL Microbiology - Last 24 Hours (Table) 10/21/21 20:02 Blood Culture Gram Stain - Preliminary Blood Blood Culture - Preliminary Group D Enterococcus 05/25/21 20:22 Blood Culture Gram Stain - Preliminary Blood Blood Culture - Preliminary Enterococcus faecalis 05/26/21 12:10 Blood Culture - Preliminary Blood No Growth after 24 hours 05/25/21 21:41 Urine Culture - Preliminary Urine,Voided Group D Enterococcus Strep agalactiae - (group b) Assessment and Plan Assessment: #1 acute kidney injury secondary to septic ATN with low blood pressures. #2 CK D stage III secondary to nephrosclerosis with a baseline creatinine of 1.4-1.6 MG per DL. #3 enterococcus UTI #4 hypotensive episodes Plan: #1 continue with IV fluids. Renal function improving #2 discontinue Lasix and Aldactone. Agree with holding losartan for now. #3 on carvedilol to 3.125 mg twice a day. #4 antibiotics as per infectious disease #5 avoid nephrotoxic agents and hypotensive episodes.
[2021-05-28 12:08] LABS: Glucose,Whole Blood 115 mg/dL (75-99)
[2021-05-28] MEDS: SENNOSIDES 8.6 MG TAB PO PRN ×2 (12:34→20:34)
[2021-05-28 16:43] LABS: Glucose,Whole Blood 170 mg/dL (75-99)
--- NOTE | 2021-05-28 17:37 | PN ---
PROGRESS NOTE DATE OF SERVICE: 05/28/2021 REASON FOR FOLLOWUP: Enterococcus faecalis bacteremia secondary to pyelonephritis. INTERVAL HISTORY: The patient is afebrile. The patient is feeling better. Breathing comfortably. Patient denies having any chest pain. No shortness of breath or cough. No abdominal pain, no diarrhea. PHYSICAL EXAMINATION: Blood pressure 135/78 with a pulse of 73, temperature 98.2. She is 99% on room air. General description is an elderly female up in the chair in no distress. Respiratory system: Unlabored breathing, clear to auscultation anteriorly. Heart S1, S2. Regular rate and rhythm. Abdomen soft, no tenderness. LABS: Hemoglobin 11.1, white count 4.4, creatinine 1.8. DIAGNOSTIC IMPRESSION AND PLAN: Patient with Enterococcus faecalis UTI and bacteremia, possible pyelonephritis. Patient to have PENICILLIN allergy responded to daptomycin. She will get a mid line placed for another 10 days of daptomycin on discharge. Continue supportive care. MMODL / IJN: [id number] /
[2021-05-28 20:22] LABS: Glucose,Whole Blood 189 mg/dL (75-99)
[2021-05-28] MEDS: allopurinoL 300 MG TAB PO SCH (20:32)
[2021-05-28] MEDS: MONTELUKAST 10 MG TAB PO SCH (20:33)
[2021-05-28] MEDS: ASPIRIN 81 MG PO SCH (20:33)
[2021-05-28] MEDS: INSULIN DETEMIR (LEVEMIR) 100 UNIT/ML SYR SQ SCH (20:33)
[2021-05-28] MEDS: FAMOTIDINE 20 MG TAB PO SCH (20:33)
[2021-05-28] MEDS: ZOLPIDEM 5 MG TAB PO PRN (20:34)
--- NOTE | 2021-05-28 21:49 | P.PN ---
Progress Note - Text Progress Note Date: 05/28/21 Chief Complaint: Not feeling well This is a very pleasant 70-year-old patient, follows with Dr. Trace Christian. Chronic stable medical conditions include asthma, CAD, CHF, diabetes, GERD, hyperlipidemia, hypertension, osteoarthritis, spinal stenosis, pacesetter AICD, aortic valve replacement December 2019. Also CAD with stent and coronary bypass. Patient's had multiple coronary stents. Patient presented yesterday after the morning she was just not feeling right feeling weak diet. She went shopping was more of a struggle. Started feeling totally tired and rundown. Started having some lower back spasms. Presented to ER was found to have a temperature 100.2. Admitted with pyelonephritis. IV antibiotics. No nausea vomiting. Decreased appetite. 05/27/2021: Laying in bed. Feeling a bit better. Did tolerate some diet. No abdominal pain. Afebrile. Blood culture growing Enterococcus faecalis. Urine culture positive for group B enterococcus and Streptococcus agalactiae. On IV daptomycin 05/28/2021: Laying in bed. Comfortable. No fever. Eating close to 100%. Friend is visiting. On IV daptomycin. Review of systems: Was done for constitutional, cardiovascular, GI, pulmonary. relevant finding as above Active Medications Acetaminophen (Acetaminophen Tab 325 Mg Tab) 650 mg PO Q6HR PRN PRN Reason: Mild Pain or Fever > 100.5 Last Admin: 05/28/21 20:34 Dose: 650 mg Documented by: Allopurinol (Allopurinol 300 Mg Tab) 300 mg PO [facility] Last Admin: 05/28/21 20:32 Dose: 300 mg Documented by: Alprazolam (Alprazolam 0.25 Mg Tab) 0.25 mg PO Q8H PRN PRN Reason: Anxiety Last Admin: 05/26/21 17:46 Dose: 0.25 mg Documented by: Ascorbic Acid (Ascorbic Acid 500 Mg Tab) 500 mg PO DAILY [facility] Last Admin: 05/28/21 08:49 Dose: 500 mg Documented by: Aspirin (Aspirin 81 Mg) 162 mg PO [facility] Last Admin: 05/28/21 20:33 Dose: 162 mg Documented by: Carvedilol (Carvedilol 3.125 Mg Tab) 3.125 [facility] Last Admin: 05/28/21 06:47 Dose: 3.125 mg Documented by: Famotidine (Famotidine 20 Mg Tab) 20 mg PO [facility] Last Admin: 05/28/21 20:33 Dose: 20 mg Documented by: Fluoxetine HCl (Fluoxetine Hcl 20 Mg Cap) 20 mg PO DAILY [facility] Last Admin: 05/28/21 08:49 Dose: 20 mg Documented by: Sodium Chloride (Saline 0.9%) 1,000 mls @ 75 mls/hr IV .[id number] [facility] Last Admin: 05/28/21 17:20 Dose: 75 mls/hr Documented by: Daptomycin 600 mg/ Sodium (Chloride) 50 mls @ 100 mls/hr IVPB Q48H [facility]; Pro tocol Last Admin: 05/28/21 15:06 Dose: 100 mls/hr Documented by: Insulin Aspart (Insulin Aspart (Novolog) 100 Unit/Ml Vial) 0 unit SQ [facility]; Protocol Last Admin: 05/28/21 20:33 Dose: 2 unit Documented by: Insulin Detemir (Insulin Detemir (Levemir) 100 Unit/Ml Syr) 28 unit SQ [facility] Last Admin: 05/28/21 20:33 Dose: 28 unit Documented by: Isosorbide Mononitrate (Isosorbide Mononitrate Er 30 Mg Tab.Er.24h) 30 mg PO DAILY [facility] Last Admin: 05/28/21 08:49 Dose: 30 mg Documented by: Montelukast Sodium (Montelukast 10 Mg Tab) 10 mg PO [facility] Last Admin: 05/28/21 20:33 Dose: 10 mg Documented by: Morphine Sulfate (Morphine Sulfate 2 Mg/Ml Syringe) 1 mg IVP Q3HR PRN PRN Reason: pain Last Admin: 05/26/21 02:18 Dose: 1 mg Documented by: Naloxone HCl (Naloxone 0.4 Mg/Ml 1 Ml Vial) 0.2 mg IV Q2M PRN PRN Reason: Opioid Reversal Ondansetron HCl (Ondansetron 4 Mg/2 Ml Vial) 4 mg IVP Q6HR PRN PRN Reason: Nausea And Vomiting Last Admin: 05/26/21 02:17 Dose: 4 mg Documented by: Ranolazine (Ranolazine 500 Mg Tab.Er.12h) 500 mg PO Q12HR [facility] Last Admin: 05/28/21 20:34 Dose: 500 mg Documented by: Senna (Sennosides 8.6 Mg Tab) 8.6 mg PO BID PRN PRN Reason: Constipation Last Admin: 05/28/21 20:34 Dose: 8.6 mg Documented by: Tramadol HCl (Tramadol 50 Mg Tab) 50 mg PO Q6HR PRN PRN Reason: Pain Last Admin: 05/26/21 17:47 Dose: 50 mg Documented by: Zolpidem Tartrate (Zolpidem 5 Mg Tab) 2.5 mg PO HS PRN PRN Reason: Insomnia Last Admin: 05/28/21 20:34 Dose: 2.5 mg Documented by: Past medical history to include: Asthma, CAD with stent and bypass, CHF, diabetes, GERD, hyperlipidemia, hypertension, primary osteoarthritis, cardiac arrest in 2017, gout, spinal stenosis, aortic stenosis, CK D, [place] AICD, anxiety depression Social history: Lives alone. No smoking. Alcohol occasionally. Family history: Reviewed, noncontributory to presentation Physical examination: VITAL SIGNS: Afebrile, 98.2, 70, 18, 135/78, 99% room air GENERAL: Laying in bed, awake, comfortable. EYES: Pupils equal. Conjunctiva normal. HEENT: External appearance of nose and ears normal, oral cavity grossly normal. NECK: JVD not raised; masses not palpable. HEART: First and second heart sounds are normal; no edema. LUNGS: Respiratory rate normal; clear to auscultation. ABDOMEN: Soft, nontender, liver spleen not palpable, no masses palpable. PSYCH: Alert and oriented x3; mood and affect normal. INVESTIGATIONS, reviewed in the clinical context: May 28: White count 4.4 hemoglobin 11.1 platelets 138 potassium 4.4 BUN 35 creatinine 1.88 May 27: Creatinine 2.17 Urine culture: Positive for group D enterococcus, Streptococcus agalactiae Blood culture [March 25] positive for Enterococcus faecalis. Repeat blood culture from March 27: No growth WBC 7.2 hemoglobin 13.8 platelets 191 sodium 1:30 potassium 4.4 BUN 39 creatinine 2.2 to UA positive for leukoesterase, WBC, bacteria Coronavirus [PCR]: Not detected Chest x-ray film personally reviewed by me-no obvious infiltrates Assessment and plan: -Acute pyelonephritis, from Enterococcus faecalis, causing sepsis, POA IV daptomycin -Sepsis from acute pyelonephritis. -Acute UTI with cystitis, positive with troponin D enterococcus IV daptomycin -CAD with history of stent and coronary bypass Aspirin, beta blanca -Chronic gout Allopurinol 300 mg daily at bedtime -Diabetes mellitus type 2 chronically on insulin, uncontrolled with hyperglycemia Lantus 28 units daily at bedtime. Follow Accu-Cheks. -Depression and anxiety not otherwise specified Prozac 20 mg daily Essential hypertension Coreg 3.125 mg by mouth twice a day -Chronic congestive heart failure from systolic dysfunction EF 30-35% [from 2017], from ischemic heart disease Patient at home takes Coreg, Lasix, Aldactone IV daptomycin. . Discussed with the patient. This afternoon blood pressure went up to 160s. Change Coreg to twice a day
[2021-05-28] MEDS: carvediloL 3.125 MG TAB PO SCH (22:34)
[2021-05-28 23:45] VITALS: RESP 16
[2021-05-29] MEDS: INSULIN ASPART (NovoLOG) 100 UNIT/ML VIAL SQ SCH ×4 (06:21→20:16)
[2021-05-29 06:35] LABS: Glucose,Whole Blood 103 mg/dL (75-99)
[2021-05-29] MEDS: ISOSORBIDE MONONITRATE ER 30 MG TAB.ER.24H PO SCH (09:32)
[2021-05-29] MEDS: ASCORBIC ACID 500 MG TAB PO SCH (09:32)
[2021-05-29] MEDS: RANOLAZINE 500 MG TAB.ER.12H PO SCH ×2 (09:32→20:17)
[2021-05-29] MEDS: carvediloL 3.125 MG TAB PO SCH ×2 (09:32→20:16)
[2021-05-29] MEDS: FLUoxetine HCL 20 MG CAP PO SCH (09:32)
[2021-05-29 12:12] LABS: Glucose,Whole Blood 190 mg/dL (75-99)
--- NOTE | 2021-05-29 13:15 | P.PN ---
Subjective Patient is seen in follow-up for acute kidney injury on chronic kidney disease. Renal function improving. On IV fluids. Oral intake fair. No vomiting or diarrhea. Diuretics are held. Vital signs are stable. General: The patient appeared well nourished and normally developed. HEENT: Head exam is unremarkable. LUNGS: Breath sounds decreased. HEART: Rate and Rhythm are regular. ABDOMEN: Soft, no distention. EXTREMITITES: No edema. Objective - Vital Signs Vital signs: Vital Signs Temp 97.6 F 05/29/21 03:17 Pulse 60 05/29/21 03:17 Resp 16 05/29/21 03:17 BP 151/72 05/29/21 03:17 Pulse Ox 99 05/29/21 03:17 Intake & Output 05/28/21 05/29/21 05/29/21 18:59 06:59 18:59 Intake Total 1370 240 Balance 1370 240 Weight 100.4 kg Intake: Intake, IV Titration 650 Amount DAPTOmycin 600 mg In 50 Sodium Chloride 0.9% 50 ml @ 100 mls/hr IVPB Q48H [facility] Rx#:[id number] Sodium Chloride 0.9% 1, 600 000 ml @ 75 mls/hr IV . [id number] [facility] Rx#:[id number] Oral 720 240 Other: Voiding Method Toilet Toilet # Voids 2 3 - Labs CBC & Chem 7: 05/28/21 08:18 05/29/21 08:40 Labs: Abnormal Lab Results - Last 24 Hours (Table) 05/28/21 05/28/21 05/29/21 Range/Units 16:41 20:21 06:17 Creatinine (0.52-1.04) mg/dL POC Glucose (mg/dL) 170 H 189 H 103 H (75-99) mg/dL 05/29/21 05/29/21 Range/Units 08:40 11:56 Creatinine 1.65 H (0.52-1.04) mg/dL POC Glucose (mg/dL) 190 H (75-99) mg/dL Microbiology - Last 24 Hours (Table) 05/27/21 07:21 Blood Culture - Preliminary Blood No Growth after 48 hours 05/26/21 12:10 Blood Culture - Preliminary Blood No Growth after 48 hours 05/25/21 21:41 Urine Culture - Final Urine,Voided Enterococcus faecalis Strep agalactiae - (group b) Assessment and Plan Plan: Assessment: 1. Acute kidney injury mostly prerenal secondary to hypotension and infection. Improving with IV hydration. Creatinine 1.65 today. 2. Chronic kidney disease stage IIIB with baseline creatinine in the range of 1.4-1.6 secondary to nephrosclerosis. 3. Enterococcus bacteremia and UTI on antibiotics. 4. Diabetes mellitus. 5. Metabolic acidosis secondary to acute kidney injury and IV fluids. Plan: Hep-Lock IV fluids. Avoid nephrotoxins. Repeat labs in the morning. Monitor bicarb.
[2021-05-29 16:49] LABS: Glucose,Whole Blood 175 mg/dL (75-99)
--- NOTE | 2021-05-29 19:21 | P.PN ---
Progress Note - Text Progress Note Date: 05/29/21 Chief Complaint: Not feeling well This is a very pleasant 70-year-old patient, follows with Dr. Trcae Christian. Chronic stable medical conditions include asthma, CAD, CHF, diabetes, GERD, hyperlipidemia, hypertension, osteoarthritis, spinal stenosis, pacesetter AICD, aortic valve replacement December 2019. Also CAD with stent and coronary bypass. Patient's had multiple coronary stents. Patient presented yesterday after the morning she was just not feeling right feeling weak diet. She went shopping was more of a struggle. Started feeling totally tired and rundown. Started having some lower back spasms. Presented to ER was found to have a temperature 100.2. Admitted with pyelonephritis. IV antibiotics. No nausea vomiting. Decreased appetite. 05/27/2021: Laying in bed. Feeling a bit better. Did tolerate some diet. No abdominal pain. Afebrile. Blood culture growing Enterococcus faecalis. Urine culture positive for group B enterococcus and Streptococcus agalactiae. On IV daptomycin 05/28/2021: Laying in bed. Comfortable. No fever. Eating close to 100%. Friend is visiting. On IV daptomycin. 05/29/2021. No fever. Feeling much better. Oral intake fair. Midline ordered. For home antibiotic. Discussed with the patient. ux manager luisa enriquez. Review of systems: Was done for constitutional, cardiovascular, GI, pulmonary. relevant finding as above Active Medications Acetaminophen (Acetaminophen Tab 325 Mg Tab) 650 mg PO Q6HR PRN PRN Reason: Mild Pain or Fever > 100.5 Last Admin: 05/28/21 20:34 Dose: 650 mg Documented by: Allopurinol (Allopurinol 300 Mg Tab) [address] [facility] Last Admin: 05/28/21 20:32 Dose: 300 mg Documented by: Alprazolam (Alprazolam 0.25 Mg Tab) 0.25 mg PO Q8H PRN PRN Reason: Anxiety Last Admin: 05/26/21 17:46 Dose: 0.25 mg Documented by: Ascorbic Acid (Ascorbic Acid 500 Mg Tab) 500 mg PO DAILY [facility] Last Admin: 05/29/21 09:32 Dose: 500 mg Documented by: Aspirin (Aspirin 81 Mg) [address] [facility] Last Admin: 05/28/21 20:33 Dose: 162 mg Documented by: Carvedilol (Carvedilol 3.125 Mg Tab) 3.125 mg PO BID [facility] Last Admin: 05/29/21 09:32 Dose: 3.125 mg Documented by: Famotidine (Famotidine 20 Mg Tab) [address] [facility] Last Admin: 05/28/21 20:33 Dose: 20 mg Documented by: Fluoxetine HCl (Fluoxetine Hcl 20 Mg Cap) 20 mg PO DAILY [facility] Last Admin: 05/29/21 09:32 Dose: 20 mg Documented by: Daptomycin 600 mg/ Sodium (Chloride) 50 mls @ 100 mls/hr IVPB Q48H [facility]; Protocol Last Admin: 05/28/21 15:06 Dose: 100 mls/hr Documented by: Insulin Aspart (Insulin Aspart (Novolog) 100 Unit/Ml Vial) 0 unit SQ [facility]; Protocol Last Admin: 05/29/21 16:59 Dose: 2 unit Documented by: Insulin Detemir (Insulin Detemir (Levemir) 100 Unit/Ml Syr) [address] [facility] Last Admin: 05/28/21 20:33 Dose: 28 unit Documented by: Isosorbide Mononitrate (Isosorbide Mononitrate Er 30 Mg Tab.Er.24h) 30 mg PO DAILY [facility] Last Admin: 05/29/21 09:32 Dose: 30 mg Documented by: Montelukast Sodium (Montelukast 10 Mg Tab) [address] [facility] Last Admin: 05/28/21 20:33 Dose: 10 mg Documented by: Morphine Sulfate (Morphine Sulfate 2 Mg/Ml Syringe) 1 mg IVP Q3HR PRN PRN Reason: pain Last Admin: 05/26/21 02:18 Dose: 1 mg Documented by: Naloxone HCl (Naloxone 0.4 Mg/Ml 1 Ml Vial) 0.2 mg IV Q2M PRN PRN Reason: Opioid Reversal Ondansetron HCl (Ondansetron 4 Mg/2 Ml Vial) 4 mg IVP Q6HR PRN PRN Reason: Nausea And Vomiting Last Admin: 05/26/21 02:17 Dose: 4 mg Documented by: Ranolazine (Ranolazine 500 Mg Tab.Er.12h) 500 mg PO Q12HR [facility] Last Admin: 05/29/21 09:32 Dose: 500 mg Documented by: Senna (Sennosides 8.6 Mg Tab) 8.6 mg PO BID PRN PRN Reason: Constipation Last Admin: 05/28/21 20:34 Dose: 8.6 mg Documented by: Tramadol HCl (Tramadol 50 Mg Tab) 50 mg PO Q6HR PRN PRN Reason: Pain Last Admin: 05/26/21 17:47 Dose: 50 mg Documented by: Zolpidem Tartrate (Zolpidem 5 Mg Tab) 2.5 mg PO HS PRN PRN Reason: Insomnia Last Admin: 05/28/21 20:34 Dose: 2.5 mg Documented by: Past medical history to include: Asthma, CAD with stent and bypass, CHF, diabetes, GERD, hyperlipidemia, hypertension, primary osteoarthritis, cardiac arrest in 2017, gout, spinal stenosis, aortic stenosis, CK D, [place] AICD, anxiety depression Social history: Lives alone. No smoking. Alcohol occasionally. Family history: Reviewed, noncontributory to presentation Physical examination: VITAL SIGNS: 98.2, 62, 16, 136.63, 90% room air GENERAL: Laying in bed, awake, comfortable. EYES: Pupils equal. Conjunctiva normal. HEENT: External appearance of nose and ears normal, oral cavity grossly normal. NECK: JVD not raised; masses not palpable. HEART: First and second heart sounds are normal; no edema. LUNGS: Respiratory rate normal; clear to auscultation. ABDOMEN: Soft, nontender, liver spleen not palpable, no masses palpable. PSYCH: Alert and oriented x3; mood and affect normal. INVESTIGATIONS, reviewed in the clinical context: May 29: Creatinine 1.6 by May 28: White count 4.4 hemoglobin 11.1 platelets 138 potassium 4.4 BUN 35 creatinine 1.88 May 27: Creatinine 2.17 Urine culture: Positive for group D enterococcus, Streptococcus agalactiae Blood culture [March 25] positive for Enterococcus faecalis. Repeat blood culture from March 27: No growth WBC 7.2 hemoglobin 13.8 platelets 191 sodium 1:30 potassium 4.4 BUN 39 creatinine 2.2 to UA positive for leukoesterase, WBC, bacteria Coronavirus [PCR]: Not detected Chest x-ray film personally reviewed by me-no obvious infiltrates Assessment and plan: -Acute pyelonephritis, from Enterococcus faecalis, causing sepsis, POA, improving IV daptomycin -Sepsis from acute pyelonephritis., Improving -Acute UTI with cystitis, positive with troponin D enterococcus, improving IV daptomycin -CAD with history of stent and coronary bypass Aspirin, beta blanca -Chronic gout Allopurinol 300 mg daily at bedtime -Diabetes mellitus type 2 chronically on insulin, uncontrolled with hyperglycemia Lantus 28 units daily at bedtime. Follow Accu-Cheks. -Depression and anxiety not otherwise specified Prozac 20 mg daily Essential hypertension Coreg 3.125 mg by mouth twice a day -Chronic congestive heart failure from systolic dysfunction EF 30-35% [from 2017], from ischemic heart disease Patient at home takes Coreg, Lasix, Aldactone IV daptomycin. . Midline. ux manager today antibiotics for home. Other medications to continue. Follow with ID.
[2021-05-29 20:05] LABS: Glucose,Whole Blood 197 mg/dL (75-99)
[2021-05-29] MEDS: FAMOTIDINE 20 MG TAB PO SCH (20:16)
[2021-05-29] MEDS: allopurinoL 300 MG TAB PO SCH (20:16)
[2021-05-29] MEDS: INSULIN DETEMIR (LEVEMIR) 100 UNIT/ML SYR SQ SCH (20:17)
[2021-05-29] MEDS: ZOLPIDEM 5 MG TAB PO PRN (20:17)
[2021-05-29] MEDS: ACETAMINOPHEN TAB 325 MG TAB PO PRN (20:17)
[2021-05-29] MEDS: MONTELUKAST 10 MG TAB PO SCH (20:17)
[2021-05-29] MEDS: ASPIRIN 81 MG PO SCH (20:19)
--- NOTE | 2021-05-30 00:50 | PN ---
PROGRESS NOTE DATE OF SERVICE: 05/29/2021 REASON FOR FOLLOWUP: Enterococcus faecalis bacteremia secondary to pyelonephritis. INTERVAL HISTORY: The patient is afebrile. The patient is feeling better, breathing comfortably. The patient denies having any chest pain, shortness of breath or cough. No abdominal pain or diarrhea. PHYSICAL EXAMINATION: Blood pressure is 129/60 with a pulse of 72, temperature of 97.1. She is 97% on room air. General description is a middle-aged female up in the chair in no distress. RESPIRATORY SYSTEM: Unlabored breathing. Clear to auscultation anteriorly. HEART: S1, S2. Regular rate and rhythm. ABDOMEN: Soft. No tenderness. LABS: Creatinine is down to 1.65. DIAGNOSTIC IMPRESSION AND PLAN: Patient with Enterococcus faecalis bacteremia secondary to pyelonephritis. Repeat blood cultures have been negative. Patient's kidney function has improved and will be switched to for another 10 days in the outpatient setting to finish a course of therapy and close outpatient followup. MMODL / IJN: [id number] /
[2021-05-30 03:19] VITALS: TEMP 97.5
[2021-05-30 06:25] LABS: Glucose,Whole Blood 91 mg/dL (75-99)
[2021-05-30] MEDS: INSULIN ASPART (NovoLOG) 100 UNIT/ML VIAL SQ SCH ×2 (06:33→12:20)
[2021-05-30 08:49] VITALS: BP 126/61; PULSE 66
[2021-05-30] MEDS: ASCORBIC ACID 500 MG TAB PO SCH (08:56)
[2021-05-30] MEDS: ISOSORBIDE MONONITRATE ER 30 MG TAB.ER.24H PO SCH (08:57)
[2021-05-30] MEDS: FLUoxetine HCL 20 MG CAP PO SCH (08:57)
[2021-05-30] MEDS: RANOLAZINE 500 MG TAB.ER.12H PO SCH (08:57)
[2021-05-30] MEDS: carvediloL 3.125 MG TAB PO SCH (08:57)
[2021-05-30] MEDS: ACETAMINOPHEN TAB 325 MG TAB PO PRN (09:09)
[2021-05-30 09:14] LABS: Calcium 9.6 mg/dL (8.4-10.2); Magnesium 2.1 mg/dL (1.6-2.3); Potassium 4.5 mmol/L (3.5-5.1)
--- NOTE | 2021-05-30 11:26 | P.PN ---
Subjective Patient is seen in follow-up for acute kidney injury on chronic kidney disease. Renal function improving. On IV fluids. Oral intake fair. No vomiting or diarrhea. Diuretics are held. No changes overnight. Vital signs are stable. General: The patient appeared well nourished and normally developed. HEENT: Head exam is unremarkable. LUNGS: Breath sounds decreased. HEART: Rate and Rhythm are regular. ABDOMEN: Soft, no distention. EXTREMITITES: No edema. Objective - Vital Signs Vital signs: Vital Signs Temp 97.5 F L 05/30/21 07:30 Pulse 66 05/30/21 07:30 Resp 16 05/30/21 07:30 BP 126/61 05/30/21 07:30 Pulse Ox 97 05/30/21 07:30 Intake & Output 05/29/21 05/30/21 05/30/21 18:59 06:59 18:59 Intake Total 890 270 Balance 890 270 Weight 101.2 kg Intake: IV 10 10 Invasive Line 4 10 10 Oral 880 260 Other: Voiding Method Toilet Toilet # Voids 3 2 - Labs CBC & Chem 7: 05/28/21 08:18 05/30/21 08:41 Labs: Abnormal Lab Results - Last 24 Hours (Table) 05/29/21 05/29/21 05/29/21 Range/Units 11:56 16:47 20:04 Chloride (98-107) mmol/L Carbon Dioxide (22-30) mmol/L BUN (7-17) mg/dL Creatinine (0.52-1.04) mg/dL Glucose (74-99) mg/dL POC Glucose (mg/dL) 190 H 175 H 197 H (75-99) mg/dL 05/30/21 Range/Units 08:41 Chloride 110 H (98-107) mmol/L Carbon Dioxide 20 L (22-30) mmol/L BUN 26 H (7-17) mg/dL Creatinine 1.50 H (0.52-1.04) mg/dL Glucose 66 L (74-99) mg/dL POC Glucose (mg/dL) (75-99) mg/dL Microbiology - Last 24 Hours (Table) 05/27/21 07:21 Blood Culture - Preliminary Blood No Growth after 72 hours 05/25/21 20:02 Blood Culture Gram Stain - Final Blood Blood Culture - Final Enterococcus faecalis 05/26/21 12:10 Blood Culture - Preliminary Blood No Growth after 72 hours 05/25/21 20:22 Blood Culture Gram Stain - Final Blood Blood Culture - Final Enterococcus faecalis Assessment and Plan Plan: Assessment: 1. Acute kidney injury mostly prerenal secondary to hypotension and infection. Improving with IV hydration. Creatinine 1. better. 5 today. 2. Chronic kidney disease stage IIIB with baseline creatinine in the range of 1.4-1.6 secondary to nephrosclerosis. 3. Enterococcus bacteremia and UTI on antibiotics. 4. Diabetes mellitus. 5. Metabolic acidosis secondary to acute kidney injury and IV fluids. Plan: Plan for discharge home today. Follow up outpatient in 1-2 weeks.
[2021-05-30 12:05] LABS: Glucose,Whole Blood 111 mg/dL (75-99)
--- NOTE | 2021-05-30 18:49 | P.DS ---
Providers Date of admission: 05/25/21 22:27 Expected date of discharge: 05/30/21 Attending physician: Everardo Brown Consults: 05/26/21 09:39 Consult Physician Routine Consulting Provider: Devan Hager Consult Reason/Comments: sepsis Do you want consulting provider notified?: Yes Consult Physician Routine Consulting Provider: Minerva Avalos Consult Reason/Comments: WENDY Do you want consulting provider notified?: Yes 05/26/21 09:41 Consult Physician Routine Consulting Provider: Devin Saxena Consult Reason/Comments: CAD Do you want consulting provider notified?: Yes Primary care physician: [facility]: Chief Complaint: Not feeling well This is a very pleasant 70-year-old patient, follows with Dr. Trace Christian. Chronic stable medical conditions include asthma, CAD, CHF, diabetes, GERD, hyperlipidemia, hypertension, osteoarthritis, spinal stenosis, pacesetter AICD, aortic valve replacement December 2019. Also CAD with stent and coronary bypass. Patient's had multiple coronary stents. Patient presented yesterday after the morning she was just not feeling right feeling weak diet. She went shopping was more of a struggle. Started feeling totally tired and rundown. Started having some lower back spasms. Presented to ER was found to have a temperature 100.2. Admitted with pyelonephritis. IV antibiotics. No nausea vomiting. Decreased appetite. 05/27/2021: Laying in bed. Feeling a bit better. Did tolerate some diet. No abdominal pain. Afebrile. Blood culture growing Enterococcus faecalis. Urine culture positive for group B enterococcus and Streptococcus agalactiae. On IV daptomycin 05/28/2021: Laying in bed. Comfortable. No fever. Eating close to 100%. Friend is visiting. On IV daptomycin. 05/29/2021. No fever. Feeling much better. Oral intake fair. Midline ordered. For home antibiotic. Discussed with the patient. nurse healthcare manager following. 05/30/2021: Midline place. Doing well. No fever. Breathing well. Medication are discussed with the patient. We will get 10 more days of IV daptomycin per Dr. Mittal. Home antibiotics. Discussion and discharge planning more than 35 minutes Consultation: Dr. Hager from [facility] Past medical history to include: Asthma, CAD with stent and bypass, CHF, diabetes, GERD, hyperlipidemia, hypertension, primary osteoarthritis, cardiac arrest in 2017, gout, spinal stenosis, aortic stenosis, CK D, [place] AICD, anxiety depression Social history: Lives alone. No smoking. Alcohol occasionally. Family history: Reviewed, noncontributory to presentation Physical examination: VITAL SIGNS: 97.5, 66, 16, 126/61, 97% room air GENERAL: Declining a chair, awake, comfortable EYES: Pupils equal. Conjunctiva normal. HEENT: External appearance of nose and ears normal, oral cavity grossly normal. NECK: JVD not raised; masses not palpable. HEART: First and second heart sounds are normal; no edema. LUNGS: Respiratory rate normal; clear to auscultation. ABDOMEN: Soft, nontender, liver spleen not palpable, no masses palpable. PSYCH: Alert and oriented x3; mood and affect normal. INVESTIGATIONS, reviewed in the clinical context: May 30: Potassium 4.5 creatinine 1.5 Accu-Cheks 111 Urine culture: Positive for group D enterococcus, Streptococcus agalactiae Blood culture [March 25] positive for Enterococcus faecalis. Repeat blood culture from March 27: No growth WBC 7.2 hemoglobin 13.8 platelets 191 sodium 1:30 potassium 4.4 BUN 39 creatinine 2.2 to UA positive for leukoesterase, WBC, bacteria Coronavirus [PCR]: Not detected Chest x-ray film personally reviewed by me-no obvious infiltrates Assessment and plan: -Acute pyelonephritis, from Enterococcus faecalis, causing sepsis, POA, improving IV daptomycin-10 more days -Sepsis from acute pyelonephritis., Improving -Acute UTI with cystitis, positive with troponin D enterococcus, improving IV daptomycin -CAD with history of stent and coronary bypass Aspirin, beta blanca -Chronic gout Allopurinol 300 mg daily at bedtime -Diabetes mellitus type 2 chronically on insulin, uncontrolled with hyperglycemia Lantus 20 units daily at bedtime. Follow Accu-Cheks. -Depression and anxiety not otherwise specified Prozac 20 mg daily Essential hypertension Coreg 3.125 mg by mouth twice a day -Chronic congestive heart failure from systolic dysfunction EF 30-35% [from 2017], from ischemic heart disease Patient at home takes Coreg 3.125 mg twice a day, Lasix 20 mg twice a day, Aldactone 12.5 mg losartan 12.5 mg by mouth daily Disposition: Home Patient Condition at Discharge: Stable Plan - Discharge Summary Discharge Rx Participant: Yes New Discharge Prescriptions: New Carvedilol [Coreg] 3.125 mg PO BID #60 tablet Continue Insulin Glargine [Lantus Vial] 20 unit SQ HS INSULIN LISPRO (humaLOG) [humaLOG] See Protocol SQ AC-TID PRN PRN Reason: elevated blood sugar Montelukast [Singulair] 10 mg PO HS Aspirin EC [Ecotrin Low Dose] 162 mg PO HS Famotidine [Pepcid] 20 mg PO HS allopurinoL [Zyloprim] 300 mg PO HS Ranolazine [Ranexa] 500 mg PO Q12HR #60 tab.er.12h FLUoxetine HCL [PROzac] 20 mg PO DAILY Isosorbide Mononitrate ER [Imdur] 30 mg PO DAILY Losartan [Cozaar] 12.5 mg PO DAILY traMADol HCL [Ultram] 50 mg PO Q6HR PRN PRN Reason: Pain Fish Oil/Dha/Epa [Fish Oil 1,200 mg Fish Oil] 1 cap PO DAILY Biotin 10,000 mcg PO DAILY Spironolactone [Aldactone] 12.5 mg PO DAILY Evolocumab [Repatha Syringe] 140 mg SQ Q14D Ascorbic Acid [Vitamin C] 500 mg PO DAILY Furosemide [Lasix] 20 mg PO BID Discontinued Carvedilol [Coreg] 12.5 mg PO DAILY Carvedilol [Coreg] 25 mg PO HS Discharge Medication List Aspirin EC [Ecotrin Low Dose] 162 mg PO HS 06/20/16 [History] Famotidine [Pepcid] 20 mg PO HS 06/20/16 [History] INSULIN LISPRO (humaLOG) [humaLOG] See Protocol SQ AC-TID PRN 06/20/16 [History] Insulin Glargine [Lantus Vial] 20 unit SQ HS 06/20/16 [History] Montelukast [Singulair] 10 mg PO HS 06/20/16 [History] allopurinoL [Zyloprim] 300 mg PO HS 06/20/16 [History] Ranolazine [Ranexa] 500 mg PO Q12HR #60 tab.er.12h 06/24/16 [Rx] FLUoxetine HCL [PROzac] 20 mg PO DAILY 10/03/16 [History] Isosorbide Mononitrate ER [Imdur] 30 mg PO DAILY 10/03/16 [History] Losartan [Cozaar] 12.5 mg PO DAILY 11/01/16 [History] traMADol HCL [Ultram] 50 mg PO Q6HR PRN 11/06/16 [History] Biotin 10,000 mcg PO DAILY 01/20/18 [History] Fish Oil/Dha/Epa [Fish Oil 1,200 mg Fish Oil] 1 cap PO DAILY 01/20/18 [History] Spironolactone [Aldactone] 12.5 mg PO DAILY 06/25/19 [History] Evolocumab [Repatha Syringe] 140 mg SQ Q14D 10/05/19 [History] Ascorbic Acid [Vitamin C] 500 mg PO DAILY 05/25/21 [History] Furosemide [Lasix] 20 mg PO BID 05/25/21 [History] Carvedilol [Coreg] 3.125 mg PO BID #60 tablet 05/30/21 [Rx] Follow up Appointment(s)/Referral(s): Tracey Christine MD [STAFF PHYSICIAN] - As Needed [facility] [NON-STAFF] - 05/31/21 Trace Christian MD [Primary Care Provider] - As Needed [facility] [NON-STAFF] - 05/31/21 Patient Instructions/Handouts: Urinary Tract Infection in Women (ED), Kidney Infection (ED), Flank Pain (ED) Activity/Diet/Wound Care/Special Instructions: cbc/bmp - [address] hager Discharge/Stand Alone Forms: Who Do I Call? Discharge Disposition: HOME SELF-CARE
== END 2021-05-30 15:24 | disposition home or self-care (01) | DRG 871 ==
LOC: EC 18:21 → 6PED 22:27 → 3SCARD 05-26 15:31
PROVIDERS: ADMIT Hospitalist; ATTEND Hospitalist
PROC: 05HF33Z Insertion of Infusion Device into Left Cephalic Vein, Percutaneous Approach (ICD-10-PCS; principal; 2021-05-29 12:20)
DX: A41.59 Other Gram-negative sepsis (principal); N17.0 Acute kidney failure with tubular necrosis; N13.6 Pyonephrosis; I13.0 Hypertensive heart and chronic kidney disease with heart failure and stage 1 through stage 4 chronic kidney disease, or unspecified chronic kidney disease; I50.22 Chronic systolic (congestive) heart failure; E87.2 Acidosis; E86.0 Dehydration; B95.2 Enterococcus as the cause of diseases classified elsewhere; E78.5 Hyperlipidemia, unspecified; E11.65 Type 2 diabetes mellitus with hyperglycemia; F32.9 Major depressive disorder, single episode, unspecified; F41.9 Anxiety disorder, unspecified; I25.5 Ischemic cardiomyopathy; N18.32 Chronic kidney disease, stage 3b; E11.22 Type 2 diabetes mellitus with diabetic chronic kidney disease; I25.10 Atherosclerotic heart disease of native coronary artery without angina pectoris; Z20.822 Contact with and (suspected) exposure to COVID-19; I25.2 Old myocardial infarction; I35.0 Nonrheumatic aortic (valve) stenosis; J45.909 Unspecified asthma, uncomplicated; M1A.9XX0 Chronic gout, unspecified, without tophus (tophi); Z79.4 Long term (current) use of insulin; Z79.899 Other long term (current) drug therapy; Z86.74 Personal history of sudden cardiac arrest; Z88.0 Allergy status to penicillin; Z88.1 Allergy status to other antibiotic agents; Z95.1 Presence of aortocoronary bypass graft; Z95.2 Presence of prosthetic heart valve; Z95.5 Presence of coronary angioplasty implant and graft; Z95.810 Presence of automatic (implantable) cardiac defibrillator; Z88.2 Allergy status to sulfonamides; I95.9 Hypotension, unspecified
CPT/HCPCS: 36410; 36415; 71046; 76770; 76937; 80048; 80053; 81001; 82565; 83036; 83605; 83735; 85025; 87040; 87077; 87086; 87186; 87635; 93005; 99284

== ENCOUNTER → 2021-06-16 | Outpatient (CLI) | payer MEDICARE ==
[2021-06-16 16:39] LABS: African American GFR (CKD) 37.7 (60.0-200.0); BUN/Creat Ratio 19.69 Ratio (12.00-20.00); Blood Urea Nitrogen 31.5 mg/dL (9.0-27.0); Calcium 10.6 mg/dL (8.7-10.3); Non-African American GFR(CKD) 32.5 (60.0-200.0)
== END | disposition home or self-care (01) ==
LOC: LABWHC1 10:00
PROVIDERS: ATTEND Internal Medicine Infectious Disease
DX: N39.0 Urinary tract infection, site not specified (principal); N18.32 Chronic kidney disease, stage 3b; R78.81 Bacteremia
CPT/HCPCS: 36415; 80048; 87040

== ENCOUNTER 2023-02-21 11:29 | Emergency (ER) | payer MEDICARE ==
[2023-02-21] MEDS ORDERED: cefTRIAXone IN SWFI 1,000 MG/10 ML SYRINGE IVP STA (12:19)
[2023-02-21] MEDS ORDERED: SODIUM CHLORIDE 0.9% 1,000 ML IV STA (12:19)
[2023-02-21] MEDS ORDERED: MORPHINE SULFATE 4 MG/ML SYRINGE IVP STA (12:20)
--- NOTE | 2023-02-21 12:20 | ED ---
Abdominal Pain HPI - General Chief Complaint: Abdominal Pain Stated Complaint: Middle Back Pain,Abd Pain Time Seen by Provider: 02/21/23 12:00 Source: patient Mode of arrival: wheelchair Limitations: no limitations - History of Present Illness Initial Comments: Patient is a 72-year-old female presenting to the emergency room with complaints of back pain and abdominal pain along with frequent urination with decreased output. She complains of dysuria without any hematuria. She states that she was treated with Cipro for 5 days for UTI and then was followed up by nephrology and was given a short course of Levaquin and she finished this course of antibiotics yesterday but still has symptoms. She is unsure of her back pain is secondary to radiation from abdomen or a flare and chronic back pain. She reports limited availability of pain medications due to chronic kidney disease stage IV. She denies any injury to her back, range of motion impairment, weakness, saddle paresthesia or other red flag symptoms of cauda equina. She denies any chest pain, shortness of breath, nausea, vomiting, diarrhea, altered mental status, fevers or chills. In addition to her chronic kidney disease and chronic low back pain she has a past medical history significant for asthma, CAD, CHF, diabetes, hypertension, hyperlipidemia, GERD, syncope and ost eoarthritis. - Related Data Home Medications Medication Instructions Recorded Confirmed Aspirin EC [Ecotrin Low Dose] 81 mg PO HS 06/20/16 02/21/23 Famotidine [Pepcid] 20 mg PO HS 06/20/16 02/21/23 Montelukast [Singulair] 10 mg PO HS 06/20/16 02/21/23 allopurinoL [Zyloprim] 300 mg PO HS 06/20/16 02/21/23 FLUoxetine HCL [PROzac] 20 mg PO DAILY 10/03/16 02/21/23 Isosorbide Mononitrate ER [Imdur] 30 mg PO DAILY 10/03/16 02/21/23 Losartan [Cozaar] 12.5 mg PO DAILY 11/01/16 02/21/23 traMADol HCL [Ultram] 50 mg PO TID PRN 11/06/16 02/21/23 Biotin 10,000 mcg PO DAILY 01/20/18 02/21/23 Fish Oil/Dha/Epa [Fish Oil 1,200 1 cap PO DAILY 01/20/18 02/21/23 mg Fish Oil] Spironolactone [Aldactone] 12.5 mg PO DAILY 06/25/19 02/21/23 Evolocumab [Repatha Syringe] 140 mg SQ Q14D 10/05/19 02/21/23 Ascorbic Acid [Vitamin C] 500 mg PO DAILY 05/25/21 02/21/23 Furosemide [Lasix] 40 mg PO DAILY 05/25/21 02/21/23 Acetaminophen Tab [Tylenol] 650 mg PO TID 02/21/23 02/21/23 Insulin Glargine,Hum.rec.anlog 10 - 15 units SQ BID 02/21/23 02/21/23 [Lantus Solostar Pen] Insulin Lispro [humaLOG Kwikpen] See Protocol SQ AC-TID 02/21/23 02/21/23 Loratadine [Claritin] 10 mg PO HS 02/21/23 02/21/23 Ranolazine [Ranexa] 500 mg PO BID 02/21/23 02/21/23 Rosuvastatin Calcium 5 mg PO Q2D 02/21/23 02/21/23 Semaglutide [Ozempic] 0.5 mg SQ TH 02/21/23 02/21/23 carvediloL [Coreg] 12.5 mg PO DAILY 02/21/23 02/21/23 carvediloL [Coreg] 25 mg PO HS 02/21/23 02/21/23 Previous Rx's Medication Instructions Recorded Levofloxacin [Levaquin] 250 mg PO DAILY 10 Days #10 tablet 02/21/23 traMADol HCL 50 mg PO Q6H 3 Days #12 tab 02/21/23 Allergies Allergy/AdvReac Type Severity Reaction Status Date / Time amoxicillin [From Augmentin] Allergy Rash/Hives Verified 02/21/23 12:59 cefprozil [From Cefzil] Allergy Rash/Hives Verified 02/21/23 12:59 clavulanic acid Allergy Rash/Hives Verified 02/21/23 12:59 [From Augmentin] sulfamethoxazole Allergy Rash/Hives Verified 02/21/23 12:59 [From Bactrim] trimethoprim [From Bactrim] Allergy Rash/Hives Verified 02/21/23 12:59 Review of Systems ROS Statement: Those systems with pertinent positive or pertinent negative responses have been documented in the HPI. ROS Other: All systems not noted in ROS Statement are negative. Past Medical History Past Medical History: Asthma, Coronary Artery Disease (CAD), Chest Pain / Angina, Heart Failure, Diabetes Mellitus, GERD/Reflux, Hyperlipidemia, Hypertension, Myocardial Infarction (AR), Osteoarthritis (OA), Pneumonia, Renal Disease, Syncope Additional Past Medical History / Comment(s): AR 1997, 2003, 2007, CARDIAC ARREST 2016,GOUT, SPINAL STENOSIS, BRONCHITIS, CONSTIPATION, HX OF DIZZINESS & FALLS, AORTIC STENOSIS, KIDNEY FAILURE STAGE 3-B, PACER/AICD, Fatigue, very SOB w/exertion recently. Aortic Valve Replacement Dec, 2019. 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 Date of Last Stent Placement:: UNKNOWN Type of Cardiac Device: AICD Device Placement Date:: 10-05-16 [facility] [employer] Past Psychological History: Anxiety, Depression Smoking Status: Never smoker Past Alcohol Use History: Occasional Past Drug Use History: None Reported - Past Family History Mother Family Medical History: No Reported History Additional Family Medical History / Comment(s): . General Exam Limitations: no limitations General appearance: alert, in no apparent distress Head exam: Present: atraumatic, normocephalic, normal inspection Eye exam: Present: normal appearance, PERRL, EOMI. Absent: scleral icterus, conjunctival injection, periorbital swelling ENT exam: Present: normal exam, mucous membranes moist Neck exam: Present: normal inspection, full ROM Respiratory exam: Present: normal lung sounds bilaterally. Absent: respiratory distress, wheezes, rales, rhonchi, stridor Cardiovascular Exam: Present: regular rate, normal rhythm, normal heart sounds. Absent: systolic murmur, diastolic murmur, rubs, gallop, clicks GI/Abdominal exam: Present: soft, tenderness (generalized no increase with palpation), normal bowel sounds. Absent: distended, guarding, rebound, rigid Rectal exam: Present: deferred Extremities exam: Present: normal inspection. Absent: pedal edema, joint swelling Back exam: Present: normal inspection. Absent: CVA tenderness (R), CVA tenderness (L) Neurological exam: Present: alert, oriented X3, CN II-XII intact Psychiatric exam: Present: normal affect, normal mood Skin exam: Present: warm, dry, intact, normal color. Absent: rash Course Vital Signs 02/21/23 02/21/23 02/21/23 11:32 12:42 14:18 Temperature 98.2 F Pulse Rate 69 61 59 L Respiratory 16 18 18 Rate Blood Pressure 129/68 126/62 110/57 O2 Sat by Pulse 68 L 100 97 Oximetry 02/21/23 15:31 Temperature 98.1 F Pulse Rate 60 Respiratory 18 Rate Blood Pressure 96/54 O2 Sat by Pulse 97 Oximetry Medical Decision Making - Medical Decision Making Was pt. sent in by a medical professional or institution (, PA, POSITION CLERK, urgent care, hospital, or [facility]...) When possible be specific @ -No Did you speak to anyone other than the patient for history (EMS, parent, family, police, friend...)? What history was obtained from this source @ -No Did you review nursing and triage notes (agree or disagree)? Why? @ -I reviewed and agree with nursing and triage notes Were old charts reviewed (outside hosp., previous admission, EMS record, old EKG, old radiological studies, urgent care reports/EKG's, [facility] records)? Report findings @ -No old charts were reviewed Differential Diagnosis (chest pain, altered mental status, abdominal pain women, abdominal pain men, vaginal bleeding, weakness, fever, dyspnea, syncope, headache, dizziness, GI bleed, back pain, seizure, CVA, palpatations, mental health, musculoskeletal)? @ -Differential Abdominal Pain Women: Appendicitis, Cholecystitis, diverticulosis, ischemic bowel, pancreatitis, hepatitis, UTI, gastroenteritis, AAA, incarcerated hernia, bowel obstruction, constipation, inflammatory bowel, hepatitis, peptic ulcer disease, splenic infarction, perforated viscus, vulvitis, ovarian torsion, PID, kidney stone, placenta abruption, this is not meant to be an all-inclusive list EKG interpreted by me (3pts min.). @ -None done X-rays interpreted by me (1pt min.). @ -None done CT interpreted by me (1pt min.). @ -None done U/S interpreted by me (1pt. min.). @ -None done What testing was considered but not performed or refused? (CT, X-rays, U/S, labs)? Why? @ -None What meds were considered but not given or refused? Why? @ -None Did you discuss the management of the patient with other professionals (professionals i.e. Dr., PA, POSITION CLERK, lab, RT, psych nurse, social work job titles, chart computer, teacher, truant officer, heel caser)? Give summary @ -No Was smoking cessation discussed for >3mins.? @ -No Was critical care preformed (if so, how long)? @ -No Were there social determinants of health that impacted care today? How? (Homelessness, low income, unemployed, alcoholism, drug addiction, transportation, low edu. Level, literacy, decrease access to med. care, nursing home, rehab)? @ -No Was there de-escalation of care discussed even if they declined (Discuss DNR or withdrawal of care, Hospice)? DNR status @ -No What co-morbidities impacted this encounter? (DM, HTN, Smoking, COPD, CAD, Cancer, CVA, ARF, Chemo, Hep., AIDS, mental health diagnosis, sleep apnea, morbid obesity)? @ -None Was patient admitted / discharged? Hospital course, mention meds given and route, prescriptions, significant lab abnormalities, going to OR and other pe rtinent info. @ -72-year-old female presenting to the emergency room with complaints of back pain and abdominal pain along with frequent urination. She states that she was treated with Cipro for 5 days for UTI and then was followed up by nephrology and was given a short course of Levaquin and she finished this course of antibiotics yesterday but still has symptoms. She is unsure of her back pain is secondary to radiation from abdomen or a flare and chronic back pain. Will start workup for abdominal pain in a woman with CBC, CMP, amylase, lipase, lactic acid in addition to urinalysis that was completed while patient was in triage which demonstrated small leukocyte esterase rare bacteria and hyaline casts no ketones or nitrates WBCs at 3 due to flank pain will treat with IV fluid bolus, morphine for pain along with a dose of Rocephin for possible pyelonephritis/UTI. No indication for diagnostic imaging at this time. CBC unremarkable CMP demonstrates acute on chronic renal failure with a BUN of 33 and creatinine of 1.75 calcium slightly elevated at 10.3, sodium low at 133 remaining electrolytes, amylase and lipase normal. Lactic acid normal 1.4 These findings were discussed with patient. Advised urinary tract infection appears to be improving however in the setting of continued symptoms give short course of tramadol to utilize for back pain encouraging follow-up with primary care provider regarding chronic back pain along with follow-up with nephrology in regards to acute renal failure on chronic kidney disease. Despite mild AKA no indication for admission or further workup at this time. Encouraged good hydration and follow-up with nephrology as indicated above. Questions and concerns answered. Return parameters to the emergency room discussed. Will discharge home in stable condition on Levaquin to treat a urinary tract infection and tramadol as needed for acute on chronic low back pain advising follow-up with primary care provider and nephrology. Undiagnosed new problem with uncertain prognosis? @ -No Drug Therapy requiring intensive monitoring for toxicity (Heparin, Nitro, Ins ulin, Cardizem)? @ -No Were any procedures done? @ -No Diagnosis/symptom? @ -UTI Acute, or Chronic, or Acute on Chronic? @ -Acute Uncomplicated (without systemic symptoms) or Complicated (systemic symptoms)? @ -Uncomplicated Side effects of treatment? @ -No Exacerbation, Progression, or Severe Exacerbation? @ -No Poses a threat to life or bodily function? How? (Chest pain, [place], AR, pneumonia, PE, COPD, DKA, ARF, appy, cholecystitis, CVA, Diverticulitis, Homicidal, Suicidal, threat to staff... and all critical care pts) @ -No Diagnosis/symptom? @ -Low back pain Acute, or Chronic, or Acute on Chronic? @ -Acute on chronic Uncomplicated (without systemic symptoms) or Complicated (systemic symptoms)? @ -Uncomplicated Side effects of treatment? @ -none Exacerbation, Progression, or Severe Exacerbation] @ -no Poses a threat to life or bodily function? @ -no Case discussed with Dr. Sanford. - Lab Data Result diagrams: 02/21/23 12:28 02/21/23 12:28 Lab Results 02/21/23 02/21/23 02/21/23 Range/Units 12:28 12:28 12:28 WBC 7.2 (3.8-10.6) k/uL RBC 4.35 (3.80-5.40) m/uL Hgb 14.3 (11.4-16.0) gm/dL Hct 42.6 (34.0-46.0) % MCV 98.0 (80.0-100.0) fL MCH 33.0 (25.0-35.0) pg MCHC 33.7 (31.0-37.0) g/dL RDW 14.5 (11.5-15.5) % Plt Count 156 (150-450) k/uL MPV 7.8 Neutrophils % 65 % Lymphocytes % 25 % Monocytes % 6 % Eosinophils % 3 % Basophils % 0 % Neutrophils # 4.6 (1.3-7.7) k/uL Lymphocytes # 1.8 (1.0-4.8) k/uL Monocytes # 0.4 (0-1.0) k/uL Eosinophils # 0.2 (0-0.7) k/uL Basophils # 0.0 (0-0.2) k/uL Sodium 133 L (137-145) mmol/L Potassium 4.4 (3.5-5.1) mmol/L Chloride 100 (98-107) mmol/L Carbon Dioxide 25 (22-30) mmol/L Anion Gap 8 mmol/L BUN 33 H (7-17) mg/dL Creatinine 1.75 H (0.52-1.04) mg/dL Est GFR (CKD-EPI)AfAm 33 (>60 ml/min/1.73 sqM) Est GFR (CKD-EPI)NonAf 29 (>60 ml/min/1.73 sqM) Glucose 100 H (74-99) mg/dL Plasma Lactic Acid Gene (0.7-2.0) mmol/L Calcium 10.3 H (8.4-10.2) mg/dL Total Bilirubin 0.7 (0.2-1.3) mg/dL AST 27 (14-36) U/L ALT 19 (4-34) U/L Alkaline Phosphatase 82 (38-126) U/L Total Protein 6.9 (6.3-8.2) g/dL Albumin 4.2 (3.5-5.0) g/dL Amylase 40 (30-110) U/L Lipase 50 (23-300) U/L Urine Color Yellow Urine Appearance Clear (Clear) Urine pH 5.5 (5.0-8.0) Ur Specific [place] 1.012 (1.001-1.035) Urine Protein Negative (Negative) Urine Glucose (UA) Negative (Negative) Urine Ketones Negative (Negative) Urine Blood Negative (Negative) Urine Nitrite Negative (Negative) Urine Bilirubin Negative (Negative) Urine Urobilinogen <2.0 (<2.0) mg/dL Ur Leukocyte Esterase Small H (Negative) Urine RBC <1 (0-5) /hpf Urine WBC 3 (0-5) /hpf Ur Squamous Epith Cells 1 (0-4) /hpf Hyaline Casts 17 H (0-2) /lpf Urine Mucus Rare H (None) /hpf 02/21/23 Range/Units 12:39 WBC (3.8-10.6) k/uL RBC (3.80-5.40) m/uL Hgb (11.4-16.0) gm/dL Hct (34.0-46.0) % MCV (80.0-100.0) fL MCH (25.0-35.0) pg MCHC (31.0-37.0) g/dL RDW (11.5-15.5) % Plt Count (150-450) k/uL MPV Neutrophils % % Lymphocytes % % Monocytes % % Eosinophils % % Basophils % % Neutrophils # (1.3-7.7) k/uL Lymphocytes # (1.0-4.8) k/uL Monocytes # (0-1.0) k/uL Eosinophils # (0-0.7) k/uL Basophils # (0-0.2) k/uL Sodium (137-145) mmol/L Potassium (3.5-5.1) mmol/L Chloride (98-107) mmol/L Carbon Dioxide (22-30) mmol/L Anion Gap mmol/L BUN (7-17) mg/dL Creatinine (0.52-1.04) mg/dL Est GFR (CKD-EPI)AfAm (>60 ml/min/1.73 sqM) Est GFR (CKD-EPI)NonAf (>60 ml/min/1.73 sqM) Glucose (74-99) mg/dL Plasma Lactic Acid Gene 1.4 (0.7-2.0) mmol/L Calcium (8.4-10.2) mg/dL Total Bilirubin (0.2-1.3) mg/dL AST (14-36) U/L ALT (4-34) U/L Alkaline Phosphatase (38-126) U/L Total Protein (6.3-8.2) g/dL Albumin (3.5-5.0) g/dL Amylase (30-110) U/L Lipase (23-300) U/L Urine Color Urine Appearance (Clear) Urine pH (5.0-8.0) Ur Specific [place] (1.001-1.035) Urine Protein (Negative) Urine Glucose (UA) (Negative) Urine Ketones (Negative) Urine Blood (Negative) Urine Nitrite (Negative) Urine Bilirubin (Negative) Urine Urobilinogen (<2.0) mg/dL Ur Leukocyte Esterase (Negative) Urine RBC (0-5) /hpf Urine WBC (0-5) /hpf Ur Squamous Epith Cells (0-4) /hpf Hyaline Casts (0-2) /lpf Urine Mucus (None) /hpf Disposition Clinical Impression: UTI (urinary tract infection), Low back pain Disposition: HOME SELF-CARE Instructions (If sedation given, give patient instructions): Urinary Tract Infection in Women (ED) Additional Instructions: Complete course of antibiotic as prescribed. Drink plenty of water. Utilize tramadol prescription as needed for lower back pain, do not utilize NSAIDs due to your impaired renal function. Please follow-up with your primary care provider and her back specialist. Please return to the Emergency Department if symptoms worsen or any other concerns. Prescriptions: Levofloxacin [Levaquin] 250 mg PO DAILY 10 Days #10 tablet traMADol HCL 50 mg PO Q6H 3 Days #12 tab Is patient prescribed a controlled substance at d/c from ED?: Yes When asked, does pt state using other controlled substances?: Yes If prescribed controlled substance>3 days was MAPS reviewed?: Prescribed <3 Days If opioid is for acute pain is fill amount 7 days or less?: Yes If Rx opioid, was Start Talking consent form obtained?: No Referrals: Galo Borges MD [Primary Care Provider] - 1-2 days Time of Disposition: 15:19
[2023-02-21 12:44] VITALS: RESP 18
[2023-02-21 12:57] LABS: Basophils % (A) 0 %; Eosinophils # (A) 0.2 k/uL (0-0.7); Eosinophils % (A) 3 %; HCT 42.6 % (34.0-46.0); HGB 14.3 gm/dL (11.4-16.0); Lymphocytes # (A) 1.8 k/uL (1.0-4.8); Lymphocytes % (A) 25 %; MCHC 33.7 g/dL (31.0-37.0); Mean Platelet Volume 7.8; Monocytes # (A) 0.4 k/uL (0-1.0); Monocytes % (A) 6 %; Neutrophils # (A) 4.6 k/uL (1.3-7.7); Neutrophils % (A) 65 %; Platelet Count 156 k/uL (150-450); RBC 4.35 m/uL (3.80-5.40); RDW 14.5 % (11.5-15.5); WBC 7.2 k/uL (3.8-10.6)
[2023-02-21 13:11] LABS: ALT 19 U/L (4-34); AST 27 U/L (14-36); African American GFR (CKD) 33 (>60 ml/min/1.73 sqM); Albumin 4.2 g/dL (3.5-5.0); Alkaline Phosphatase 82 U/L (38-126); Amylase 40 U/L (30-110); Anion Gap 8 mmol/L; Blood Urea Nitrogen 33 mg/dL (7-17); Calcium 10.3 mg/dL (8.4-10.2); Carbon Dioxide 25 mmol/L (22-30); Chloride 100 mmol/L (98-107); Glucose 100 mg/dL (74-99); Lipase 50 U/L (23-300); Non-African American GFR(CKD) 29 (>60 ml/min/1.73 sqM); Potassium 4.4 mmol/L (3.5-5.1); Sodium 133 mmol/L (137-145); Total Bilirubin 0.7 mg/dL (0.2-1.3); Total Protein 6.9 g/dL (6.3-8.2)
[2023-02-21 13:34] LABS: Appearance,Urine Clear (Clear); Bilirubin,Urine Negative (Negative); Blood,Urine Negative (Negative); Color,Urine Yellow; Glucose,Urine (UA) Negative (Negative); Hyaline Casts,Urine 17 /lpf (0-2); Ketones,Urine Negative (Negative); Leukocyte Esterase,Urine Small (Negative); Mucus,Urine Rare /hpf; Nitrite,Urine Negative (Negative); PH, Urine 5.5 (5.0-8.0); Protein,Urine Negative (Negative); RBC,Urine <1 /hpf (0-5); Specific Gravity,Urine 1.012 (1.001-1.035); Squamous Epithelial Cell,Urine 1 /hpf (0-4); Urobilinogen,Urine <2.0 mg/dL (<2.0); WBC,Urine 3 /hpf (0-5)
[2023-02-21 15:35] VITALS: BP 96/54; PULSE 60; TEMP 98.1
== END 2023-02-21 15:39 | disposition home or self-care (01) ==
LOC: EC 11:29
DX: N39.0 Urinary tract infection, site not specified (principal); J45.909 Unspecified asthma, uncomplicated; I25.10 Atherosclerotic heart disease of native coronary artery without angina pectoris; I13.0 Hypertensive heart and chronic kidney disease with heart failure and stage 1 through stage 4 chronic kidney disease, or unspecified chronic kidney disease; E11.22 Type 2 diabetes mellitus with diabetic chronic kidney disease; N18.4 Chronic kidney disease, stage 4 (severe); E78.5 Hyperlipidemia, unspecified; I25.2 Old myocardial infarction; M19.90 Unspecified osteoarthritis, unspecified site; Z79.4 Long term (current) use of insulin; Z79.82 Long term (current) use of aspirin; Z79.899 Other long term (current) drug therapy; Z88.0 Allergy status to penicillin; Z88.6 Allergy status to analgesic agent; Z88.2 Allergy status to sulfonamides; Z88.8 Allergy status to other drugs, medicaments and biological substances; Z79.84 Long term (current) use of oral hypoglycemic drugs; Z79.1 Long term (current) use of non-steroidal anti-inflammatories (NSAID); Z79.01 Long term (current) use of anticoagulants
CPT/HCPCS: 36415; 80053; 82150; 83605; 83690; 85025; 81001; 87040; 99285; 96374; 96375; 96361 ×2; J2270; J0696

== ENCOUNTER 2024-03-01 17:08 | Inpatient (IN) | payer MEDICARE ==
--- NOTE | 2024-03-01 17:16 | ED ---
Back Pain HPI - General Stated Complaint: Back Pain - History of Present Illness Initial Comments: 73 year old female with PMH of CKD, ASCAD with CABG who presents with back pain since . Reports to low back pain that she thought was related to her lumbar spine. She has had 2 back surgeries and is scheduled for additional. Patient then started to have suprapubic pressure and dysuria. She is concerned for uti/pyelo. No fevers. No history of kidney stones. Admits constipation. Also mentions a few episodes of chest pain she has had over the past few weeks. Currently has pressure in her jaw. 73-year-old female with past medical history of coronary artery disease status post CABG, TAVR, chronic back pain who presents emergency department reporting to lower abdominal pain and back pain. States her symptoms started on and have gotten progressively worse. Patient originally thought the pain stemmed from her chronic back pain. She does have history of laminectomy with fusion. Has 2 additional planned surgeries in June for additional fusion. States that she started having some dysuria and suprapubic pain and therefore became concerned that she had a urinary tract infection. She denies hematuria. No fevers. States that the pain is midline. She denies any trauma. Patient also admits to some exertional chest pain. Patient does have a history of aortic valve stenosis, ischemic cardiomyopathy. Reports that she has nitro at home however does not take it as it usually makes her feel sick. She admits to some active chest discomfort describing as a pressure sensation. No fevers chills or cough. Denies any lower extremity swelling. No other alleviating, precipitating or modifying factors - Related Data Home Medications Medication Instructions Recorded Confirmed Famotidine [Pepcid] 20 mg PO HS 06/20/16 03/02/24 Montelukast [Singulair] 10 mg PO HS 06/20/16 03/02/24 allopurinoL [Zyloprim] 300 mg PO HS 06/20/16 03/02/24 FLUoxetine HCL [PROzac] 20 mg PO DAILY 10/03/16 03/02/24 Isosorbide Mononitrate ER [Imdur] 30 mg PO DAILY 10/03/16 03/02/24 Losartan [Cozaar] 12.5 mg PO DAILY 11/01/16 03/02/24 Spironolactone [Aldactone] 12.5 mg PO HS 06/25/19 03/02/24 Evolocumab [Repatha Syringe] 140 mg SQ DIRECTED 10/05/19 03/02/24 Furosemide [Lasix] 40 mg PO DAILY 05/25/21 03/02/24 Acetaminophen Tab [Tylenol] 650 mg PO TID 02/21/23 03/02/24 Insulin Glargine,Hum.rec.anlog 10 units SQ BID 02/21/23 03/02/24 [Lantus Solostar Pen] Insulin Lispro [humaLOG Kwikpen] See Protocol SQ AC-TID 02/21/23 03/02/24 Loratadine [Claritin] 10 mg PO HS 02/21/23 03/02/24 Ranolazine [Ranexa] 500 mg PO BID 02/21/23 03/02/24 Rosuvastatin Calcium 5 mg PO DIRECTED 02/21/23 03/02/24 carvediloL [Coreg] 12.5 mg PO BID 02/21/23 03/02/24 Aspirin EC [Ecotrin Low Dose] 81 mg PO HS 03/02/24 03/02/24 Empagliflozin [Jardiance] 10 mg PO DAILY 03/02/24 03/02/24 FLUoxetine HCL [PROzac] 20 mg PO DAILY 03/02/24 03/02/24 Semaglutide [Ozempic] 2 mg SQ TU 03/02/24 03/02/24 Allergies Allergy/AdvReac Type Severity Reaction Status Date / Time amoxicillin [From Augmentin] Allergy Anaphylaxis Verified 03/03/24 13:33 /rash/hives cefprozil [From Cefzil] Allergy Anaphylaxis Verified 03/03/24 13:33 /rash/hives clavulanic acid Allergy Anaphylaxis Verified 03/03/24 13:33 [From Augmentin] /rash/hives sulfamethoxazole Allergy Anaphylaxis Verified 03/03/24 13:33 [From Bactrim] /rash/hives trimethoprim [From Bactrim] Allergy Anaphylaxis Verified 03/03/24 13:33 /rash/hives Review of Systems ROS Statement: Those systems with pertinent positive or pertinent negative responses have been documented in the HPI. ROS Other: All systems not noted in ROS Statement are negative. Past Medical History Past Medical History: Asthma, Coronary Artery Disease (CAD), Chest Pain / Angina, Heart Failure, Diabetes Mellitus, GERD/Reflux, Hyperlipidemia, Hypertension, Myocardial Infarction (LA), Osteoarthritis (OA), Pneumonia, Renal Disease, Syncope Additional Past Medical History / Comment(s): [place] 1997, 2003, 2007, CARDIAC ARREST 2016,GOUT, SPINAL STENOSIS, BRONCHITIS, CONSTIPATION, HX OF DIZZINESS & FALLS, AORTIC STENOSIS, KIDNEY FAILURE STAGE 3-B, PACER/AICD, Fatigue, very SOB w/exertion recently. Aortic Valve Replacement Dec, 2019. 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 Date of Last Stent Placement:: UNKNOWN Type of Cardiac Device: AICD Device Placement Date:: 10-05-16 chest [email or web address] Past Psychological History: Anxiety, Depression Smoking Status: Never smoker Past Alcohol Use History: Occasional Past Drug Use History: None Reported - Past Family History Mother Family Medical History: No Reported History Additional Family Medical History / Comment(s): . General Exam General appearance: alert, in no apparent distress Head exam: Present: atraumatic, normocephalic, normal inspection Eye exam: Present: normal appearance, PERRL, EOMI. Absent: scleral icterus, conjunctival injection, periorbital swelling ENT exam: Present: normal exam, mucous membranes moist Neck exam: Present: normal inspection. Absent: tenderness, meningismus, lymphadenopathy Respiratory exam: Present: normal lung sounds bilaterally. Absent: respiratory distress, wheezes, rales, rhonchi, stridor Cardiovascular Exam: Present: regular rate, normal rhythm, normal heart sounds. Absent: systolic murmur, diastolic murmur, rubs, gallop, clicks GI/Abdominal exam: Present: soft, normal bowel sounds. Absent: distended, tenderness, guarding, rebound, rigid Extremities exam: Present: normal inspection, full ROM, normal capillary refill. Absent: tenderness, pedal edema, joint swelling, calf tenderness Back exam: Present: paraspinal tenderness (l2-l5) Neurological exam: Present: alert, oriented X3, CN II-XII intact Psychiatric exam: Present: normal affect, normal mood Skin exam: Present: warm, dry, intact, normal color. Absent: rash Course Vital Signs 03/01/24 03/01/24 03/01/24 17:13 19:45 23:51 Temperature 98.1 F Pulse Rate 68 60 62 Respiratory 18 18 18 Rate Blood Pressure 123/76 107/54 122/52 O2 Sat by Pulse 96 100 100 Oximetry 03/02/24 03/02/24 03/02/24 03:58 06:00 08:55 Temperature Pulse Rate 67 61 60 Respiratory 18 18 18 Rate Blood Pressure 139/71 101/56 118/68 O2 Sat by Pulse 100 99 99 Oximetry 03/02/24 03/02/24 10:57 14:54 Temperature Pulse Rate 57 L 62 Respiratory 18 18 Rate Blood Pressure 102/59 92/53 O2 Sat by Pulse 100 98 Oximetry Medical Decision Making - Medical Decision Making Was pt. sent in by a medical professional or institution (, PA, GYRO MECHANIC, urgent care, hospital, or correction...) When possible be specific @ -No Did you speak to anyone other than the patient for history (EMS, parent, family, police, friend...)? What history was obtained from this source @ -No Did you review nursing and triage notes (agree or disagree)? Why? @ -I reviewed and agree with nursing and triage notes Were old charts reviewed (outside hosp., previous admission, EMS record, old EKG, old radiological studies, urgent care reports/EKG's, correction records)? Report findings @ -No old charts were reviewed Differential Diagnosis (chest pain, altered mental status, abdominal pain women, abdominal pain men, vaginal bleeding, weakness, fever, dyspnea, syncope, headache, dizziness, GI bleed, back pain, seizure, CVA, palpatations, mental health, musculoskeletal)? @ -Differential Back Pain: Strain, zoster, cauda equina syndrome, epidural abscess, vertebral osteomyeliti s, discitis, fracture, subluxation, disc herniation, DJD, spinal stenosis, dissection, AAA, pancreatitis, peptic ulcer disease, pyelonephritis, kidney stone, this is not meant to be an all-inclusive list. Differential Chest Pain: Stable Angina, Unstable Angina, STEMI, NSTEMI Aortic Dissection, Pneumothorax, Musculoskeletal, Esophageal Spasm GERD, Cholecystitis, Pancreatitis, Zoster, this is not meant to be an all-inclusive list. EKG interpreted by me (3pts min.). @ -Yes and demonstrates sinus rhythm with rate of 62. MI interval 184. QRS 110. QTc of 440. Left anterior fascicular block. No acute ST segment elevation X-rays interpreted by me (1pt min.). @ -Yes and demonstrates no acute process CT interpreted by me (1pt min.). @ -yes and demonstrates a left-sided ureteral stone U/S interpreted by me (1pt. min.). @ -None done What testing was considered but not performed or refused? (CT, X-rays, U/S, labs)? Why? @ -None What meds were considered but not given or refused? Why? @ -None Did you discuss the management of the patient with other professionals (professionals i.e. , PA, GYRO MECHANIC, lab, RT, psych nurse, manager social services, health safety and environment manager, teacher, project control officer, field nurse case manager)? Give summary @ -Spoke with Cynthia and Dr. Brannon Was smoking cessation discussed for >3mins.? @ -No Was critical care preformed (if so, how long)? @ -No Were there social determinants of health that impacted care today? How? (Homelessness, low income, unemployed, alcoholism, drug addiction, transpor tation, low edu. Level, literacy, decrease access to med. care, snf, rehab)? @ -No Was there de-escalation of care discussed even if they declined (Discuss DNR or withdrawal of care, Hospice)? DNR status @ -No What co-morbidities impacted this encounter? (DM, HTN, Smoking, COPD, CAD, Cancer, CVA, ARF, Chemo, Hep., AIDS, mental health diagnosis, sleep apnea, morbid obesity)? @ -TAVR, chronic back pain Was patient admitted / discharged? Hospital course, mention meds given and route, prescriptions, significant lab abnormalities, going to OR and other pertinent info. @ -Admitted. Upon arrival patient seen and evaluated in room 1. Thorough history and physical exam was performed. IV access was established. Laboratory studies are conducted. Chest x-ray was performed as well as a CT of the abdomen. CT demonstrates left-sided ureteral stone. Patient will be admitted for serial troponins and nephrology/urology consultation. Spoke with Cynthia for admission Undiagnosed new problem with uncertain prognosis? @ -No Drug Therapy requiring intensive monitoring for toxicity (Heparin, Nitro, Insulin, Cardizem)? @ -No Were any procedures done? @ -No Diagnosis/symptom? @ -Acute lumbar back pain, acute ureteral stoneleft, acute chest pain Acute, or Chronic, or Acute on Chronic? @ -Acute Uncomplicated (without systemic symptoms) or Complicated (systemic symptoms)? @ -complicated Side effects of treatment? @ -No Exacerbation, Progression, or Severe Exacerbation? @ -No Poses a threat to life or bodily function? How? (Chest pain, [place], LA, pneumonia, PE, COPD, DKA, ARF, appy, cholecystitis, CVA, Diverticulitis, Homicidal, Suicidal, threat to staff... and all critical care pts) @ -No - Lab Data Result diagrams: 03/03/24 06:14 03/04/24 10:52 Lab Results 03/01/24 03/01/24 03/01/24 Range/Units 17:21 17:21 17:21 WBC 7.4 (3.8-10.6) k/uL RBC 4.26 (3.80-5.40) m/uL Hgb 14.1 (11.4-16.0) gm/dL Hct 42.6 (34.0-46.0) % MCV 100.1 H (80.0-100.0) fL MCH 33.1 (25.0-35.0) pg MCHC 33.1 (31.0-37.0) g/dL RDW 14.5 (11.5-15.5) % Plt Count 188 (150-450) k/uL MPV 7.7 Neutrophils % 65 % Lymphocytes % 25 % Monocytes % 5 % Eosinophils % 3 % Basophils % 1 % Neutrophils # 4.8 (1.3-7.7) k/uL Lymphocytes # 1.9 (1.0-4.8) k/uL Monocytes # 0.4 (0-1.0) k/uL Eosinophils # 0.2 (0-0.7) k/uL Basophils # 0.0 (0-0.2) k/uL Macrocytosis Slight PT 10.6 (10.0-12.5) sec INR 1.0 (<1.2) Sodium (137-145) mmol/L Potassium (3.5-5.1) mmol/L Chloride (98-107) mmol/L Carbon Dioxide (22-30) mmol/L Anion Gap mmol/L BUN (7-17) mg/dL Creatinine (0.52-1.04) mg/dL Est GFR (CKD-EPI)AfAm (>60 ml/min/1.73 sqM) Est GFR (CKD-EPI)NonAf (>60 ml/min/1.73 sqM) Glucose (74-99) mg/dL POC Glucose (mg/dL) (70-110) mg/dL POC Glu Parking Meter Installer ID Plasma Lactic Acid Gene (0.7-2.0) mmol/L Calcium (8.4-10.2) mg/dL Total Bilirubin (0.2-1.3) mg/dL AST (14-36) U/L ALT (4-34) U/L Alkaline Phosphatase (38-126) U/L Troponin I (0.000-0.034) ng/mL Total Protein (6.3-8.2) g/dL Albumin (3.5-5.0) g/dL Lipase (23-300) U/L Urine Color Yellow Urine Appearance Clear (Clear) Urine pH 5.5 (5.0-8.0) Ur Specific [place] 1.014 (1.001-1.035) Urine Protein Negative (Negative) Urine Glucose (UA) 3+ H (Negative) Urine Ketones Negative (Negative) Urine Blood Negative (Negative) Urine Nitrite Negative (Negative) Urine Bilirubin Negative (Negative) Urine Urobilinogen <2.0 (<2.0) mg/dL Ur Leukocyte Esterase Trace H (Negative) Urine RBC <1 (0-5) /hpf Urine WBC 6 H (0-5) /hpf Ur Squamous Epith Cells 1 (0-4) /hpf Hyaline Casts 15 H (0-2) /lpf Urine Mucus Rare H (None) /hpf 03/01/24 03/01/24 03/01/24 Range/Units 17:21 17:21 17:21 WBC (3.8-10.6) k/uL RBC (3.80-5.40) m/uL Hgb (11.4-16.0) gm/dL Hct (34.0-46.0) % MCV (80.0-100.0) fL MCH (25.0-35.0) pg MCHC (31.0-37.0) g/dL RDW (11.5-15.5) % Plt Count (150-450) k/uL MPV Neutrophils % % Lymphocytes % % Monocytes % % Eosinophils % % Basophils % % Neutrophils # (1.3-7.7) k/uL Lymphocytes # (1.0-4.8) k/uL Monocytes # (0-1.0) k/uL Eosinophils # (0-0.7) k/uL Basophils # (0-0.2) k/uL Macrocytosis PT (10.0-12.5) sec INR (<1.2) Sodium 135 L (137-145) mmol/L Potassium 3.4 L (3.5-5.1) mmol/L Chloride 100 (98-107) mmol/L Carbon Dioxide 24 (22-30) mmol/L Anion Gap 11 mmol/L BUN 35 H (7-17) mg/dL Creatinine 1.90 H (0.52-1.04) mg/dL Est GFR (CKD-EPI)AfAm 30 (>60 ml/min/1.73 sqM) Est GFR (CKD-EPI)NonAf 26 (>60 ml/min/1.73 sqM) Glucose 82 (74-99) mg/dL POC Glucose (mg/dL) (70-110) mg/dL POC Glu Parking Meter Installer ID Plasma Lactic Acid Gene 1.0 (0.7-2.0) mmol/L Calcium 10.1 (8.4-10.2) mg/dL Total Bilirubin 1.0 (0.2-1.3) mg/dL AST 32 (14-36) U/L ALT 20 (4-34) U/L Alkaline Phosphatase 88 (38-126) U/L Troponin I <0.012 (0.000-0.034) ng/mL Total Protein 6.7 (6.3-8.2) g/dL Albumin 4.3 (3.5-5.0) g/dL Lipase 65 (23-300) U/L Urine Color Urine Appearance (Clear) Urine pH (5.0-8.0) Ur Specific [place] (1.001-1.035) Urine Protein (Negative) Urine Glucose (UA) (Negative) Urine Ketones (Negative) Urine Blood (Negative) Urine Nitrite (Negative) Urine Bilirubin (Negative) Urine Urobilinogen (<2.0) mg/dL Ur Leukocyte Esterase (Negative) Urine RBC (0-5) /hpf Urine WBC (0-5) /hpf Ur Squamous Epith Cells (0-4) /hpf Hyaline Casts (0-2) /lpf Urine Mucus (None) /hpf 03/01/24 03/01/24 03/01/24 Range/Units 21:31 21:56 22:19 WBC (3.8-10.6) k/uL RBC (3.80-5.40) m/uL Hgb (11.4-16.0) gm/dL Hct (34.0-46.0) % MCV (80.0-100.0) fL MCH (25.0-35.0) pg MCHC (31.0-37.0) g/dL RDW (11.5-15.5) % Plt Count (150-450) k/uL MPV Neutrophils % % Lymphocytes % % Monocytes % % Eosinophils % % Basophils % % Neutrophils # (1.3-7.7) k/uL Lymphocytes # (1.0-4.8) k/uL Monocytes # (0-1.0) k/uL Eosinophils # (0-0.7) k/uL Basophils # (0-0.2) k/uL Macrocytosis PT (10.0-12.5) sec INR (<1.2) Sodium (137-145) mmol/L Potassium (3.5-5.1) mmol/L Chloride (98-107) mmol/L Carbon Dioxide (22-30) mmol/L Anion Gap mmol/L BUN (7-17) mg/dL Creatinine (0.52-1.04) mg/dL Est GFR (CKD-EPI)AfAm (>60 ml/min/1.73 sqM) Est GFR (CKD-EPI)NonAf (>60 ml/min/1.73 sqM) Glucose (74-99) mg/dL POC Glucose (mg/dL) 57 L 59 L 81 (70-110) mg/dL POC Glu Parking Meter Installer Andre Sheffield, Andre Walters Plasma Lactic Acid Gene (0.7-2.0) mmol/L Calcium (8.4-10.2) mg/dL Total Bilirubin (0.2-1.3) mg/dL AST (14-36) U/L ALT (4-34) U/L Alkaline Phosphatase (38-126) U/L Troponin I (0.000-0.034) ng/mL Total Protein (6.3-8.2) g/dL Albumin (3.5-5.0) g/dL Lipase (23-300) U/L Urine Color Urine Appearance (Clear) Urine pH (5.0-8.0) Ur Specific [place] (1.001-1.035) Urine Protein (Negative) Urine Glucose (UA) (Negative) Urine Ketones (Negative) Urine Blood (Negative) Urine Nitrite (Negative) Urine Bilirubin (Negative) Urine Urobilinogen (<2.0) mg/dL Ur Leukocyte Esterase (Negative) Urine RBC (0-5) /hpf Urine WBC (0-5) /hpf Ur Squamous Epith Cells (0-4) /hpf Hyaline Casts (0-2) /lpf Urine Mucus (None) /hpf 03/02/24 03/02/24 03/02/24 Range/Units 00:01 03:16 03:16 WBC 7.0 (3.8-10.6) k/uL RBC 4.18 (3.80-5.40) m/uL Hgb 13.8 (11.4-16.0) gm/dL Hct 41.8 (34.0-46.0) % MCV 100.2 H (80.0-100.0) fL MCH 33.0 (25.0-35.0) pg MCHC 33.0 (31.0-37.0) g/dL RDW 15.2 (11.5-15.5) % Plt Count 153 (150-450) k/uL MPV 8.5 Neutrophils % 60 % Lymphocytes % 28 % Monocytes % 7 % Eosinophils % 3 % Basophils % 1 % Neutrophils # 4.2 (1.3-7.7) k/uL Lymphocytes # 1.9 (1.0-4.8) k/uL Monocytes # 0.5 (0-1.0) k/uL Eosinophils # 0.2 (0-0.7) k/uL Basophils # 0.0 (0-0.2) k/uL Macrocytosis Slight PT (10.0-12.5) sec INR (<1.2) Sodium (137-145) mmol/L Potassium (3.5-5.1) mmol/L Chloride (98-107) mmol/L Carbon Dioxide (22-30) mmol/L Anion Gap mmol/L BUN (7-17) mg/dL Creatinine (0.52-1.04) mg/dL Est GFR (CKD-EPI)AfAm (>60 ml/min/1.73 sqM) Est GFR (CKD-EPI)NonAf (>60 ml/min/1.73 sqM) Glucose (74-99) mg/dL POC Glucose (mg/dL) (70-110) mg/dL POC Glu Parking Meter Installer ID Plasma Lactic Acid Gene (0.7-2.0) mmol/L Calcium (8.4-10.2) mg/dL Total Bilirubin (0.2-1.3) mg/dL AST (14-36) U/L ALT (4-34) U/L Alkaline Phosphatase (38-126) U/L Troponin I <0.012 <0.012 (0.000-0.034) ng/mL Total Protein (6.3-8.2) g/dL Albumin (3.5-5.0) g/dL Lipase (23-300) U/L Urine Color Urine Appearance (Clear) Urine pH (5.0-8.0) Ur Specific [place] (1.001-1.035) Urine Protein (Negative) Urine Glucose (UA) (Negative) Urine Ketones (Negative) Urine Blood (Negative) Urine Nitrite (Negative) Urine Bilirubin (Negative) Urine Urobilinogen (<2.0) mg/dL Ur Leukocyte Esterase (Negative) Urine RBC (0-5) /hpf Urine WBC (0-5) /hpf Ur Squamous Epith Cells (0-4) /hpf Hyaline Casts (0-2) /lpf Urine Mucus (None) /hpf 03/02/24 03/02/24 03/02/24 Range/Units 03:16 05:45 08:12 WBC (3.8-10.6) k/uL RBC (3.80-5.40) m/uL Hgb (11.4-16.0) gm/dL Hct (34.0-46.0) % MCV (80.0-100.0) fL MCH (25.0-35.0) pg MCHC (31.0-37.0) g/dL RDW (11.5-15.5) % Plt Count (150-450) k/uL MPV Neutrophils % % Lymphocytes % % Monocytes % % Eosinophils % % Basophils % % Neutrophils # (1.3-7.7) k/uL Lymphocytes # (1.0-4.8) k/uL Monocytes # (0-1.0) k/uL Eosinophils # (0-0.7) k/uL Basophils # (0-0.2) k/uL Macrocytosis PT (10.0-12.5) sec INR (<1.2) Sodium 133 L (137-145) mmol/L Potassium 3.0 L (3.5-5.1) mmol/L Chloride 103 (98-107) mmol/L Carbon Dioxide 23 (22-30) mmol/L Anion Gap 7 mmol/L BUN 30 H (7-17) mg/dL Creatinine 1.73 H (0.52-1.04) mg/dL Est GFR (CKD-EPI)AfAm 34 (>60 ml/min/1.73 sqM) Est GFR (CKD-EPI)NonAf 29 (>60 ml/min/1.73 sqM) Glucose 153 H (74-99) mg/dL POC Glucose (mg/dL) 156 H 140 H (70-110) mg/dL POC Glu Parking Meter Installer ID Andre Dimas Elizabeth Plasma Lactic Acid Gene (0.7-2.0) mmol/L Calcium 9.7 (8.4-10.2) mg/dL Total Bilirubin (0.2-1.3) mg/dL AST (14-36) U/L ALT (4-34) U/L Alkaline Phosphatase (38-126) U/L Troponin I (0.000-0.034) ng/mL Total Protein (6.3-8.2) g/dL Albumin (3.5-5.0) g/dL Lipase (23-300) U/L Urine Color Urine Appearance (Clear) Urine pH (5.0-8.0) Ur Specific [place] (1.001-1.035) Urine Protein (Negative) Urine Glucose (UA) (Negative) Urine Ketones (Negative) Urine Blood (Negative) Urine Nitrite (Negative) Urine Bilirubin (Negative) Urine Urobilinogen (<2.0) mg/dL Ur Leukocyte Esterase (Negative) Urine RBC (0-5) /hpf Urine WBC (0-5) /hpf Ur Squamous Epith Cells (0-4) /hpf Hyaline Casts (0-2) /lpf Urine Mucus (None) /hpf Disposition Clinical Impression: Hx of CABG, Chest pain, Ureteral stone with hydronephrosis, WENDY (acute kidney injury), CKD (chronic kidney disease) Disposition: ADMITTED IP TO THIS [facility] Condition: Stable Is patient prescribed a controlled substance at d/c from ED?: No Time of Disposition: 21:28 Decision to Admit Reason: Admit from EC Decision Date: 03/01/24 Decision Time: 21:29
[2024-03-01 17:53] LABS: Basophils % (A) 1 %; Eosinophils # (A) 0.2 k/uL (0-0.7); Eosinophils % (A) 3 %; HCT 42.6 % (34.0-46.0); HGB 14.1 gm/dL (11.4-16.0); Lymphocytes # (A) 1.9 k/uL (1.0-4.8); Lymphocytes % (A) 25 %; MCH 33.1 pg (25.0-35.0); MCHC 33.1 g/dL (31.0-37.0); MCV 100.1 fL (80.0-100.0); Macrocytosis Slight; Mean Platelet Volume 7.7; Monocytes # (A) 0.4 k/uL (0-1.0); Monocytes % (A) 5 %; Neutrophils # (A) 4.8 k/uL (1.3-7.7); Neutrophils % (A) 65 %; Platelet Count 188 k/uL (150-450); RBC 4.26 m/uL (3.80-5.40); RDW 14.5 % (11.5-15.5); WBC 7.4 k/uL (3.8-10.6)
[2024-03-01 18:04] LABS: ALT 20 U/L (4-34); AST 32 U/L (14-36); African American GFR (CKD) 30 (>60 ml/min/1.73 sqM); Albumin 4.3 g/dL (3.5-5.0); Alkaline Phosphatase 88 U/L (38-126); Anion Gap 11 mmol/L; Blood Urea Nitrogen 35 mg/dL (7-17); Calcium 10.1 mg/dL (8.4-10.2); Carbon Dioxide 24 mmol/L (22-30); Chloride 100 mmol/L (98-107); Glucose 82 mg/dL (74-99); Lipase 65 U/L (23-300); Non-African American GFR(CKD) 26 (>60 ml/min/1.73 sqM); Potassium 3.4 mmol/L (3.5-5.1); Sodium 135 mmol/L (137-145); Total Protein 6.7 g/dL (6.3-8.2)
--- NOTE | 2024-03-01 18:10 | XR ---
EXAMINATION TYPE: XR chest 2V DATE OF EXAM: 03/01/2024 5:58 PM CLINICAL INDICATION:Female, 73 years old with history of chest pain; [facility] COMPARISON: Chest radiographs from 05/25/2021 TECHNIQUE: XR chest 2V Frontal view of the chest. FINDINGS: Lungs/Pleura: There is no evidence of pleural effusion, focal consolidation, or pneumothorax. Pulmonary vascularity: Unremarkable. Heart/mediastinum: Cardiomediastinal silhouette is unremarkable. Single-lead cardiac conduction devic e overlying the left hemithorax with lead projecting over the right ventricle. Musculoskeletal: No acute osseous pathology. Midline sternotomy wires are noted.Right shoulder arthro plasty appears intact. Other findings: None IMPRESSION: No acute cardiopulmonary disease/process.
[2024-03-01 18:31] LABS: Appearance,Urine Clear (Clear); Bilirubin,Urine Negative (Negative); Blood,Urine Negative (Negative); Color,Urine Yellow; Glucose,Urine (UA) 3+ (Negative); Hyaline Casts,Urine 15 /lpf (0-2); Ketones,Urine Negative (Negative); Leukocyte Esterase,Urine Trace (Negative); Mucus,Urine Rare /hpf; Nitrite,Urine Negative (Negative); PH, Urine 5.5 (5.0-8.0); Protein,Urine Negative (Negative); RBC,Urine <1 /hpf (0-5); Specific Gravity,Urine 1.014 (1.001-1.035); Squamous Epithelial Cell,Urine 1 /hpf (0-4); Urobilinogen,Urine <2.0 mg/dL (<2.0); WBC,Urine 6 /hpf (0-5)
--- NOTE | 2024-03-01 19:12 | CT ---
EXAMINATION TYPE: CT abdomen pelvis wo con CT DLP: 740.5 mGycm, Automated exposure control for dose reduction was used. DATE OF EXAM: 03/01/2024 6:31 PM COMPARISON: CT abdomen pelvis most recent from CLINICAL INDICATION:Female, 73 years old with history of back pain, dysuria, ? Stones; back pain, dys uria TECHNIQUE: Axial CT abdomen pelvis wo con;Sagittal and coronal reformats were created on a separate workstation. Contrast used: mL of , (none if empty) Oral contrast used: without Oral Contrast (none if empty) FINDINGS: LOWER CHEST: Unremarkable ABDOMEN LIVER: Unremarkable GALLBLADDER AND BILE DUCTS: A 3 mm: There is identified. PANCREAS: Unremarkable. SPLEEN: Unremarkable. ADRENAL GLANDS: Unremarkable. KIDNEYS AND URETERS: 7 mm ovoid stone is seen in the proximal third of the left ureter. Mild left h ydronephrosis is present. Very mild perinephric fat stranding.. The ureters are unremarkable. PELVIS BLADDER: Unremarkable. REPRODUCTIVE: Unremarkable. ABDOMEN & PELVIS STOMACH AND BOWEL: No evidence of bowel obstruction. PERITONEUM/RETROPERITONEUM: No evidence of pneumoperitoneum or free fluid. VASCULATURE: No evidence of aortic aneurysm. MUSCULOSKELETAL: No acute osseous abnormalities. Spinal fixation hardware is degrading quality of im ages for diagnostic purposes. LYMPH NODES: No gross evidence for lymphadenopathy. SOFT TISSUE/ABDOMINAL WALL: Unremarkable IMPRESSION: 1. : 7 mm ovoid stone is seen in the proximal third of the left ureter. Mild left hydronephrosis i s present.
[2024-03-01 19:30] LABS: Prothrombin Time 10.6 sec (10.0-12.5)
[2024-03-01] MEDS: SODIUM CHLORIDE 0.9% 1,000 ML IV STA (19:40)
[2024-03-01] MEDS: LIDOCAINE 4% PATCH TOPICAL ONE (19:41)
[2024-03-01] MEDS ORDERED: MAGNESIUM HYDROXIDE 2,400 MG/30 ML CUP PO PRN (21:28)
[2024-03-01] MEDS ORDERED: NALOXONE 0.4 MG/ML 1 ML VIAL IV PRN (21:29)
[2024-03-01 21:32] LABS: Glucose,Whole Blood 57 mg/dL (70-110)
[2024-03-01] MEDS: SODIUM CHLORIDE 0.9% 1,000 ML IV SCH (21:32)
[2024-03-01 22:07] LABS: Glucose,Whole Blood 59 mg/dL (70-110)
[2024-03-01 22:20] LABS: Glucose,Whole Blood 81 mg/dL (70-110)
[2024-03-01] MEDS: TAMSULOSIN 0.4 MG CAP.ER.24H PO STA (22:26)
[2024-03-01] MEDS: ASPIRIN 81 MG PO SCH (23:53)
[2024-03-01] MEDS: MONTELUKAST 10 MG TAB PO SCH (23:54)
[2024-03-01] MEDS: RANOLAZINE 500 MG TAB.ER.12H PO SCH (23:54)
[2024-03-01] MEDS: allopurinoL 300 MG TAB PO SCH (23:54)
[2024-03-01] MEDS: FAMOTIDINE 20 MG TAB PO SCH (23:54)
[2024-03-01] MEDS: LORATADINE 10 MG TAB PO SCH (23:55)
[2024-03-01] MEDS: SPIRONOLACTONE 25 MG TAB PO SCH (23:55)
[2024-03-02] MEDS: carvediloL 12.5 MG TAB PO STA
[2024-03-02 03:48] LABS: Basophils % (A) 1 %; Eosinophils # (A) 0.2 k/uL (0-0.7); Eosinophils % (A) 3 %; HCT 41.8 % (34.0-46.0); HGB 13.8 gm/dL (11.4-16.0); Lymphocytes # (A) 1.9 k/uL (1.0-4.8); Lymphocytes % (A) 28 %; MCV 100.2 fL (80.0-100.0); Macrocytosis Slight; Mean Platelet Volume 8.5; Monocytes # (A) 0.5 k/uL (0-1.0); Monocytes % (A) 7 %; Neutrophils # (A) 4.2 k/uL (1.3-7.7); Neutrophils % (A) 60 %; Platelet Count 153 k/uL (150-450); RBC 4.18 m/uL (3.80-5.40); RDW 15.2 % (11.5-15.5)
[2024-03-02 03:56] LABS: African American GFR (CKD) 34 (>60 ml/min/1.73 sqM); Anion Gap 7 mmol/L; Blood Urea Nitrogen 30 mg/dL (7-17); Calcium 9.7 mg/dL (8.4-10.2); Carbon Dioxide 23 mmol/L (22-30); Chloride 103 mmol/L (98-107); Glucose 153 mg/dL (74-99); Non-African American GFR(CKD) 29 (>60 ml/min/1.73 sqM); Sodium 133 mmol/L (137-145)
[2024-03-02 05:47] LABS: Glucose,Whole Blood 156 mg/dL (70-110)
[2024-03-02] MEDS: traMADol 50 MG TAB PO SCH (08:03)
[2024-03-02] MEDS: ASCORBIC ACID 500 MG TAB PO SCH (08:05)
[2024-03-02] MEDS: FLUoxetine HCL 20 MG CAP PO SCH (08:06)
[2024-03-02] MEDS: carvediloL 12.5 MG TAB PO SCH (08:06)
[2024-03-02] MEDS: FUROSEMIDE 40 MG TAB PO SCH (08:07)
[2024-03-02] MEDS: ISOSORBIDE MONONITRATE ER 30 MG TAB.ER.24H PO SCH (08:07)
[2024-03-02] MEDS: LOSARTAN 25 MG TAB PO SCH (08:08)
[2024-03-02] MEDS: SPIRONOLACTONE 25 MG TAB PO SCH (08:09)
[2024-03-02] MEDS: RANOLAZINE 500 MG TAB.ER.12H PO SCH (08:09)
[2024-03-02 08:16] LABS: Glucose,Whole Blood 140 mg/dL (70-110)
[2024-03-02] MEDS: INSULIN DETEMIR (LEVEMIR) 100 UNIT/ML SYR SQ SCH (08:17)
[2024-03-02] MEDS: NON FORMULARY DRUG (Evolocumab [Repatha Syringe] 140 MG/ML Syringe) SQ SCH (08:19)
[2024-03-02] MEDS: ATORVASTATIN 10 MG TAB PO SCH (08:20)
[2024-03-02] MEDS ORDERED: NON FORMULARY DRUG (Fish Oil/Dha/Epa [Fish Oil 1,200 Mg Fish Oil] 1 EACH Capsule) PO SCH (09:00)
[2024-03-02] MEDS ORDERED: NON FORMULARY DRUG (Biotin [Biotin] 10,000 MCG Capsule) PO SCH (09:00)
[2024-03-02] MEDS ORDERED: carvediloL 12.5 MG TAB PO SCH (09:00)
[2024-03-02] MEDS: ACETAMINOPHEN TAB 325 MG TAB PO SCH (10:21)
--- NOTE | 2024-03-02 10:53 | P.CRDCN ---
History of Present Illness History of present illness: HISTORY OF PRESENT ILLNESS: This is a 73-year-old female with a past medical history significant for TAVR, coronary artery disease with previous CABG, pacemaker/ICD implantation, hyperten sara, hyperlipidemia, and diabetes. Patient follows in the office with Dr. Christine. We have been asked to see the patient in consultation for chest pain. Patient examined at the bedside. Patient states she was driving home from [place] yesterday when she began to have some nausea and back discomfort. She states that she had to kiln puller and had an episode of emesis which then prompted her to come to the emergency room for further evaluation. The patient currently denies any chest pain or pressure. Patient was found to have a ureteral stone and is scheduled for intervention tomorrow with urology. DIAGNOSTICS: - EKG reveals sinus mechanism with nonspecific ST-T wave changes. - Chest xray negative for acute process - Laboratory data: WBC 7.0. Hemoglobin 13.8. Platelet count 153. Sodium 133. Potassium 3.0. BUN 30. Creatinine 1.70. Troponin negative x 3. - Current home cardiac medications include Jardiance 10 mg daily, Repatha 120 mg every 14 days, losartan 12.5 mg daily, Imdur 30 mg daily, Aldactone 12.5 mg daily, carvedilol 12.5 mg twice a day, Lasix 40 mg daily, Ranexa 500 mg twice a day, rosuvastatin 5 mg daily, and aspirin 81 mg daily - Most recent echocardiogram obtained in May 2023 revealed ejection fraction 32%, moderate TR, mild AR, prosthetic aortic valve, mild MR - Patient underwent four-vessel CABG in April 2013 with ADAM to LAD, VGD1, VGOM1, VGPDA - Cardiac catheterization history: October 2019 revealing 30% distal left main, 100% mid LAD, 99% mid circumflex, 100% proximal OM1, 99% distal RCA, 2 patent grafts, patent ADAM to LAD and patent VG to PDA REVIEW OF SYSTEMS: At the time of my exam: CONSTITUTIONAL: Denies fever or chills. HEENT: Denies blurred vision, vision changes, or eye pain. Denies hemoptysis CARDIOVASCULAR: Denies chest pain. Denies orthopnea. Denies PND. Denies palpitations RESPIRATORY: Denies shortness of breath. GASTROINTESTINAL: Denies abdominal pain. Denies nausea or vomiting. HEMATOLOGIC: Denies bleeding disorders. GENITOURINARY: Denies any blood in urine. SKIN: Denies pruitis. Denies rash. PHYSICAL EXAM: VITAL SIGNS: Reviewed. GENERAL: Well-developed in no acute distress. HEENT: Head is normocephalic. Pupils are equal, round. Sclerae anicteric. Mucous membranes of the mouth are moist. Neck supple. No JVD or thyromegaly LUNGS: Respirations even and unlabored. Lungs essentially clear to auscultation bilaterally. HEART: Regular rate and rhythm. S1 and S2 heard. ABDOMEN: Soft. Nondistended. Nontender. EXTREMITIES: Normal range of motion. No clubbing or cyanosis. Peripheral pulses intact. No lower extremity edema NEUROLOGIC: Awake and alert. Oriented x 3. ASSESSMENT: Left ureteral stone Mild left hydronephrosis Chest pain, patient denies, no evidence of acute coronary syndrome, troponin ne gative x 3 Coronary artery disease with previous CABG History of PPM/ICD implantation Chronic kidney disease Hypertension Hyperlipidemia History of TAVR PLAN: An acute coronary but has been ruled out Resume home cardiac medications Urology is on consult and patient is scheduled for intervention of left ureteral stone tomorrow Patient is currently stable from a cardiac standpoint with no further inpatient recommendations We will sign off. Please reconsult if needed. Nurse practitioner note has been reviewed by physician. Signing provider agrees with the documented findings, assessment, and plan of care documented by JUICE MIXER as a scribe. Past Medical History Past Medical History: Asthma, Coronary Artery Disease (CAD), Chest Pain / Angina, Heart Failure, Diabetes Mellitus, GERD/Reflux, Hyperlipidemia, Hypertension, Myocardial Infarction ([place]), Osteoarthritis (OA), Pneumonia, Renal Disease, Syncope Additional Past Medical History / Comment(s): [place] 1998, 2004, 2008, CARDIAC ARREST 2016,GOUT, SPINAL STENOSIS, BRONCHITIS, CONSTIPATION, HX OF DIZZINESS & FALLS, AORTIC STENOSIS, KIDNEY FAILURE STAGE 3-B, PACER/AICD, Fatigue, very SOB w/exertion recently. Aortic Valve Replacement Dec, 2019. 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 Date of Last Stent Placement:: UNKNOWN Type of Cardiac Device: AICD Device Placement Date:: 10-05-16 [facility] [email or web address] Past Psychological History: Anxiety, Depression Smoking Status: Never smoker Past Alcohol Use History: Occasional Past Drug Use History: None Reported - Past Family History Mother Family Medical History: No Reported History Additional Family Medical History / Comment(s): . Medications and Allergies Home Medications Medication Instructions Recorded Confirmed Type Famotidine [Pepcid] 20 mg PO HS 06/20/16 03/02/24 History Montelukast [Singulair] 10 mg PO HS 06/20/16 03/02/24 History allopurinoL [Zyloprim] 300 mg PO HS 06/20/16 03/02/24 History FLUoxetine HCL [PROzac] 20 mg PO DAILY 10/03/16 03/02/24 History Isosorbide Mononitrate ER [Imdur] 30 mg PO DAILY 10/03/16 03/02/24 History Losartan [Cozaar] 12.5 mg PO DAILY 11/01/16 03/02/24 History Spironolactone [Aldactone] 12.5 mg PO HS 06/25/19 03/02/24 History Evolocumab [Repatha Syringe] 140 mg SQ DIRECTED 10/05/19 03/02/24 History Furosemide [Lasix] 40 mg PO DAILY 05/25/21 03/02/24 History Acetaminophen Tab [Tylenol] 650 mg PO TID 02/21/23 03/02/24 History Insulin Glargine,Hum.rec.anlog 10 units SQ BID 02/21/23 03/02/24 History [Lantus Solostar Pen] Insulin Lispro [humaLOG Kwikpen] See Protocol SQ AC-TID 02/21/23 03/02/24 History Loratadine [Claritin] 10 mg PO HS 02/21/23 03/02/24 History Ranolazine [Ranexa] 500 mg PO BID 02/21/23 03/02/24 History Rosuvastatin Calcium 5 mg PO DIRECTED 02/21/23 03/02/24 History carvediloL [Coreg] 12.5 mg PO BID 02/21/23 03/02/24 History Aspirin EC [Ecotrin Low Dose] 81 mg PO HS 03/02/24 03/02/24 History Empagliflozin [Jardiance] 10 mg PO DAILY 03/02/24 03/02/24 History FLUoxetine HCL [PROzac] 20 mg PO DAILY 03/02/24 03/02/24 History Semaglutide [Ozempic] 2 mg SQ TU 03/02/24 03/02/24 History Allergies Allergy/AdvReac Type Severity Reaction Status Date / Time amoxicillin [From Augmentin] Allergy Anaphylaxis Verified 03/02/24 08:00 /rash/hives cefprozil [From Cefzil] Allergy Anaphylaxis Verified 03/02/24 08:00 /rash/hives clavulanic acid Allergy Anaphylaxis Verified 03/02/24 08:00 [From Augmentin] /rash/hives sulfamethoxazole Allergy Anaphylaxis Verified 03/02/24 08:00 [From Bactrim] /rash/hives trimethoprim [From Bactrim] Allergy Anaphylaxis Verified 03/02/24 08:00 /rash/hives Physical Exam Vitals: Vital Signs Temp Pulse Resp BP Pulse Ox 03/02/24 08:55 60 18 118/68 99 03/02/24 06:00 61 18 101/56 99 03/02/24 03:58 67 18 139/71 100 03/01/24 23:51 62 18 122/52 100 03/01/24 19:45 60 18 107/54 100 03/01/24 17:13 98.1 F 68 18 123/76 96 Intake and Output 03/01/24 03/02/24 03/02/24 22:59 06:59 14:59 Other: Weight 75.296 kg Results 03/02/24 03:16 03/02/24 03:16 Cardiac Enzymes 03/01/24 03/01/24 03/02/24 Range/Units 17:21 17:21 00:01 AST 32 (14-36) U/L Troponin I <0.012 <0.012 (0.000-0.034) ng/mL 03/02/24 Range/Units 03:16 AST (14-36) U/L Troponin I <0.012 (0.000-0.034) ng/mL Coagulation 03/01/24 Range/Units 17:21 PT 10.6 (10.0-12.5) sec CBC 03/01/24 03/02/24 Range/Units 17:21 03:16 WBC 7.4 7.0 (3.8-10.6) k/uL RBC 4.26 4.18 (3.80-5.40) m/uL Hgb 14.1 13.8 (11.4-16.0) gm/dL Hct 42.6 41.8 (34.0-46.0) % Plt Count 188 153 (150-450) k/uL Comprehensive Metabolic Panel 03/01/24 03/02/24 Range/Units 17:21 03:16 Sodium 135 L 133 L (137-145) mmol/L Potassium 3.4 L 3.0 L (3.5-5.1) mmol/L Chloride 100 103 (98-107) mmol/L Carbon Dioxide 24 23 (22-30) mmol/L BUN 35 H 30 H (7-17) mg/dL Creatinine 1.90 H 1.73 H (0.52-1.04) mg/dL Glucose 82 153 H (74-99) mg/dL Calcium 10.1 9.7 (8.4-10.2) mg/dL AST 32 (14-36) U/L ALT 20 (4-34) U/L Alkaline Phosphatase 88 (38-126) U/L Total Protein 6.7 (6.3-8.2) g/dL Albumin 4.3 (3.5-5.0) g/dL Current Medications Generic Name Dose Route Start Last Admin Trade Name Freq PRN Reason Stop Dose Admin Acetaminophen 650 mg 03/02/24 09:00 03/02/24 10:21 Acetaminophen Tab 325 Mg Tab PO Not Given TID CORIE Allopurinol 300 mg 03/02/24 21:00 Allopurinol 300 Mg Tab PO HS CORIE Aspirin 81 mg 03/02/24 21:00 Aspirin 81 Mg PO HS [facility] Atorvastatin Calcium 10 mg 03/02/24 09:00 03/02/24 08:20 Atorvastatin 10 Mg Tab PO Not Given Q2D [facility] Carvedilol 12.5 mg 03/02/24 09:00 03/02/24 08:06 Carvedilol 12.5 Mg Tab PO 12.5 mg BID CORIE Administration Famotidine 20 mg 03/02/24 21:00 Famotidine 20 Mg Tab PO HS CORIE Fluoxetine HCl 20 mg 03/02/24 09:00 03/02/24 08:06 Fluoxetine Hcl 20 Mg Cap PO 20 mg DAILY CORIE Administration Furosemide 40 mg 03/02/24 09:00 03/02/24 08:07 Furosemide 40 Mg Tab PO 40 mg DAILY CORIE Administration Sodium Chloride 1,000 mls @ 75 mls/hr 03/01/24 21:30 03/01/24 21:32 Saline 0.9% IV Not Given .[id number] [facility] Insulin Aspart 5 unit 03/02/24 12:30 Insulin Aspart (Novolog) 100 Unit/Ml Vial SQ AC-TID [facility] Insulin Detemir 10 unit 03/02/24 09:00 03/02/24 08:17 Insulin Detemir (Levemir) 100 Unit/Ml Syr SQ 10 unit BID@0700,2100 [facility] Administration Isosorbide Mononitrate 30 mg 03/02/24 09:00 03/02/24 08:07 Isosorbide Mononitrate Er 30 Mg Tab.Er.24h PO 30 mg DAILY CORIE Administration Loratadine 10 mg 03/02/24 21:00 Loratadine 10 Mg Tab PO HS [facility] Losartan Potassium 12.5 mg 03/02/24 09:00 03/02/24 08:08 Losartan 25 Mg Tab PO 12.5 mg DAILY CORIE Administration Magnesium Hydroxide 2,400 mg 03/01/24 21:28 Magnesium Hydroxide 2,400 Mg/30 Ml Cup PO 03/06/24 21:27 ONCE PRN Constipation Montelukast Sodium 10 mg 03/02/24 21:00 Montelukast 10 Mg Tab PO HS [facility] Naloxone HCl 0.2 mg 03/01/24 21:29 Naloxone 0.4 Mg/Ml 1 Ml Vial IV Q2M PRN Opioid Reversal Non-Formulary Medication 140 mg 03/02/24 09:00 03/02/24 08:19 Evolocumab [Repatha Syringe] SQ Not Given Q14D CORIE Ranolazine 500 mg 03/02/24 09:00 03/02/24 08:09 Ranolazine 500 Mg Tab.Er.12h PO 500 mg BID [facility] Administration Spironolactone 12.5 mg 03/03/24 21:00 Spironolactone 25 Mg Tab PO HS CORIE Intake and Output 03/01/24 03/02/24 03/02/24 22:59 06:59 14:59 Other: Weight 75.296 kg 03/02/24 03:16 03/02/24 03:16
--- NOTE | 2024-03-02 12:00 | P.GSCN ---
History of Present Illness Consult date: 03/02/24 Reason for Consult: Left ureteral stone History of present illness: This is a 73-year-old female that presented to the hospital with left flank pain associated with suprapubic pressure. Also was experiencing chest pain. Does have a complicated cardiac history. In the ER she underwent a CT abdomen and pelvis per radiology report stone measured at 7 mm along the left proximal ureter. On but on review of images the stone is 11 x 16 mm rather than 7 mm. She is having mild flank pain. Denies any dysuria or gross hematuria. Denies any previous history of kidney stones. Her creatinine on presentation was 1.9 baseline is around 1.41.7, she does have underlying CKD at baseline. Review of Systems - Constitutional Denies fever, Denies weight loss - EENT Ears, nose, mouth and throat: Denies dysphagia - Cardiovascular Reports chest pain, Denies shortness of breath - Respiratory Denies cough, Denies 7 - Gastrointestinal Reports as per HPI - Genitourinary Genitourinary: Reports flank pain Past Medical History Past Medical History: Asthma, Coronary Artery Disease (CAD), Chest Pain / An wali, Heart Failure, Diabetes Mellitus, GERD/Reflux, Hyperlipidemia, Hypertension, Myocardial Infarction ([place]), Osteoarthritis (OA), Pneumonia, Renal Disease, Syncope Additional Past Medical History / Comment(s): [place] 1997, 2004, 2007, CARDIAC ARREST 2016,GOUT, SPINAL STENOSIS, BRONCHITIS, CONSTIPATION, HX OF DIZZINESS & FALLS, AORTIC STENOSIS, KIDNEY FAILURE STAGE 3-B, PACER/AICD, Fatigue, very SOB w/exertion recently. Aortic Valve Replacement Dec, 2019. 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 Date of Last Stent Placement:: UNKNOWN Type of Cardiac Device: AICD Device Placement Date:: 10-05-16 [facility] Past Psychological History: Anxiety, Depression Smoking Status: Never smoker Past Alcohol Use History: Occasional Past Drug Use History: None Reported - Past Family History Mother Family Medical History: No Reported History Additional Family Medical History / Comment(s): . Medications and Allergies Home Medications Medication Instructions Recorded Confirmed Type Famotidine [Pepcid] 20 mg PO HS 06/20/16 03/02/24 History Montelukast [Singulair] 10 mg PO HS 06/20/16 03/02/24 History allopurinoL [Zyloprim] 300 mg PO HS 06/20/16 03/02/24 History FLUoxetine HCL [PROzac] 20 mg PO DAILY 10/03/16 03/02/24 History Isosorbide Mononitrate ER [Imdur] 30 mg PO DAILY 10/03/16 03/02/24 History Losartan [Cozaar] 12.5 mg PO DAILY 11/01/16 03/02/24 History Spironolactone [Aldactone] 12.5 mg PO HS 06/25/19 03/02/24 History Evolocumab [Repatha Syringe] 140 mg SQ DIRECTED 10/05/19 03/02/24 History Furosemide [Lasix] 40 mg PO DAILY 05/25/21 03/02/24 History Acetaminophen Tab [Tylenol] 650 mg PO TID 02/21/23 03/02/24 History Insulin Glargine,Hum.rec.anlog 10 units SQ BID 02/21/23 03/02/24 History [Lantus Solostar Pen] Insulin Lispro [humaLOG Kwikpen] See Protocol SQ AC-TID 02/21/23 03/02/24 History Loratadine [Claritin] 10 mg PO HS 02/21/23 03/02/24 History Ranolazine [Ranexa] 500 mg PO BID 02/21/23 03/02/24 History Rosuvastatin Calcium 5 mg PO DIRECTED 02/21/23 03/02/24 History carvediloL [Coreg] 12.5 mg PO BID 02/21/23 03/02/24 History Aspirin EC [Ecotrin Low Dose] 81 mg PO HS 03/02/24 03/02/24 History Empagliflozin [Jardiance] 10 mg PO DAILY 03/02/24 03/02/24 History FLUoxetine HCL [PROzac] 20 mg PO DAILY 03/02/24 03/02/24 History Semaglutide [Ozempic] 2 mg SQ TU 03/02/24 03/02/24 History Allergies Allergy/AdvReac Type Severity Reaction Status Date / Time amoxicillin [From Augmentin] Allergy Anaphylaxis Verified 03/02/24 08:00 /rash/hives cefprozil [From Cefzil] Allergy Anaphylaxis Verified 03/02/24 08:00 /rash/hives clavulanic acid Allergy Anaphylaxis Verified 03/02/24 08:00 [From Augmentin] /rash/hives sulfamethoxazole Allergy Anaphylaxis Verified 03/02/24 08:00 [From Bactrim] /rash/hives trimethoprim [From Bactrim] Allergy Anaphylaxis Verified 03/02/24 08:00 /rash/hives Surgical - Exam Vital Signs Temp Pulse Resp BP Pulse Ox 98.1 F 68 18 123/76 96 03/01/24 17:13 03/01/24 17:13 03/01/24 17:13 03/01/24 17:13 03/01/24 17:13 - General no distress, moderate pain - Eyes normal ocular movement, no pale - ENT normal nares, normal mucosa - Respiratory normal expansion, normal respiratory effort - Abdomen Abdomen: soft, non tender, no distended - Psychiatric oriented to time, oriented to person, oriented to place Results - Labs 03/02/24 03:16 03/02/24 03:16 Abnormal Lab Results - Last 24 Hours (Table) 03/01/24 03/01/24 03/01/24 Range/Units 17:21 17:21 17:21 MCV 100.1 H (80.0-100.0) fL Sodium 135 L (137-145) mmol/L Potassium 3.4 L (3.5-5.1) mmol/L BUN 35 H (7-17) mg/dL Creatinine 1.90 H (0.52-1.04) mg/dL Glucose (74-99) mg/dL POC Glucose (mg/dL) (70-110) mg/dL Urine Glucose (UA) 3+ H (Negative) Ur Leukocyte Esterase Trace H (Negative) Urine WBC 6 H (0-5) /hpf Hyaline Casts 15 H (0-2) /lpf Urine Mucus Rare H (None) /hpf 03/01/24 03/01/24 03/02/24 Range/Units 21:31 21:56 03:16 MCV 100.2 H (80.0-100.0) fL Sodium (137-145) mmol/L Potassium (3.5-5.1) mmol/L BUN (7-17) mg/dL Creatinine (0.52-1.04) mg/dL Glucose (74-99) mg/dL POC Glucose (mg/dL) 57 L 59 L (70-110) mg/dL Urine Glucose (UA) (Negative) Ur Leukocyte Esterase (Negative) Urine WBC (0-5) /hpf Hyaline Casts (0-2) /lpf Urine Mucus (None) /hpf 03/02/24 03/02/24 03/02/24 Range/Units 03:16 05:45 08:12 MCV (80.0-100.0) fL Sodium 133 L (137-145) mmol/L Potassium 3.0 L (3.5-5.1) mmol/L BUN 30 H (7-17) mg/dL Creatinine 1.73 H (0.52-1.04) mg/dL Glucose 153 H (74-99) mg/dL POC Glucose (mg/dL) 156 H 140 H (70-110) mg/dL Urine Glucose (UA) (Negative) Ur Leukocyte Esterase (Negative) Urine WBC (0-5) /hpf Hyaline Casts (0-2) /lpf Urine Mucus (None) /hpf Diabetes panel 03/01/24 03/02/24 Range/Units 17:21 03:16 Sodium 135 L 133 L (137-145) mmol/L Potassium 3.4 L 3.0 L (3.5-5.1) mmol/L Chloride 100 103 (98-107) mmol/L Carbon Dioxide 24 23 (22-30) mmol/L BUN 35 H 30 H (7-17) mg/dL Creatinine 1.90 H 1.73 H (0.52-1.04) mg/dL Glucose 82 153 H (74-99) mg/dL Calcium 10.1 9.7 (8.4-10.2) mg/dL AST 32 (14-36) U/L ALT 20 (4-34) U/L Alkaline Phosphatase 88 (38-126) U/L Total Protein 6.7 (6.3-8.2) g/dL Albumin 4.3 (3.5-5.0) g/dL Calcium panel 03/01/24 03/02/24 Range/Units 17:21 03:16 Calcium 10.1 9.7 (8.4-10.2) mg/dL Albumin 4.3 (3.5-5.0) g/dL Pituitary panel 03/01/24 03/02/24 Range/Units 17:21 03:16 Sodium 135 L 133 L (137-145) mmol/L Potassium 3.4 L 3.0 L (3.5-5.1) mmol/L Chloride 100 103 (98-107) mmol/L Carbon Dioxide 24 23 (22-30) mmol/L BUN 35 H 30 H (7-17) mg/dL Creatinine 1.90 H 1.73 H (0.52-1.04) mg/dL Glucose 82 153 H (74-99) mg/dL Calcium 10.1 9.7 (8.4-10.2) mg/dL Adrenal panel 03/01/24 03/02/24 Range/Units 17:21 03:16 Sodium 135 L 133 L (137-145) mmol/L Potassium 3.4 L 3.0 L (3.5-5.1) mmol/L Chloride 100 103 (98-107) mmol/L Carbon Dioxide 24 23 (22-30) mmol/L BUN 35 H 30 H (7-17) mg/dL Creatinine 1.90 H 1.73 H (0.52-1.04) mg/dL Glucose 82 153 H (74-99) mg/dL Calcium 10.1 9.7 (8.4-10.2) mg/dL Total Bilirubin 1.0 (0.2-1.3) mg/dL AST 32 (14-36) U/L ALT 20 (4-34) U/L Alkaline Phosphatase 88 (38-126) U/L Total Protein 6.7 (6.3-8.2) g/dL Albumin 4.3 (3.5-5.0) g/dL - Imaging CT scan - abdomen: image reviewed (1.6 cm left-sided proximal stone with mild hydronephrosis) Assessment and Plan Assessment: 73-year-old female with history of 1.6 cm left-sided proximal stone, discussed with her the stone is fairly large chance of spontaneous passage is not possible. Discussed given the hydronephrosis and the location of the stone she will require surgical intervention for kidney stone. Discussed with her the option of left-sided ureteroscopy with holmium laser, aware the risk which includes but not limited to bleeding, infection, injury to the ureter. Discussed also given the size of the stone she might require to surgery to completely chlor air her stone burden. She was evaluated by cardiology this morning, and was cleared for surgery -N.p.o. past midnight -OR for left-sided ureteroscopy with holmium laser and stent insertion
[2024-03-02 12:20] LABS: Glucose,Whole Blood 150 mg/dL (70-110)
[2024-03-02] MEDS: INSULIN ASPART (NovoLOG) 100 UNIT/ML VIAL SQ SCH (12:26)
--- NOTE | 2024-03-02 12:31 | P.NPCON ---
History of Present Illness - Reason for Consult Consult date: 03/02/24 - History of Present Illness Patient is a 73-year-old female with a past medical history of chronic kidney disease stage IIIb with baseline creatinine is 1.7, diabetes, and ASCAD with CABG. She presented to the ED with back pain since . She denies frequency, urgency, and dysuria. She denies fever and chills. She has history of recurrent UTIs; no history of kidney stones. Abdominal/pelvis CT report shows 7 mm ovoid stone in the proximal third left ureter (personally measured at 7mm x 19mm using the ruler tool). Mild left hydronephrosis is present. Creatinine is 1.73 today, down from 1.9. Hyponatremia noted. Hypokalemia noted. Blood pressure is on the lower side with systolic 101-107 mmHg. Past Medical History Past Medical History: Asthma, Coronary Artery Disease (CAD), Chest Pain / Angina, Heart Failure, Diabetes Mellitus, GERD/Reflux, Hyperlipidemia, Hypert ension, Myocardial Infarction ([place]), Osteoarthritis (OA), Pneumonia, Renal Disease, Syncope Additional Past Medical History / Comment(s): [place] 1997, 2003, 2007, CARDIAC ARREST 2016,GOUT, SPINAL STENOSIS, BRONCHITIS, CONSTIPATION, HX OF DIZZINESS & FALLS, AORTIC STENOSIS, KIDNEY FAILURE STAGE 3-B, PACER/AICD, Fatigue, very SOB w/exertion recently. Aortic Valve Replacement Dec, 2019. 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 Date of Last Stent Placement:: UNKNOWN Type of Cardiac Device: AICD Device Placement Date:: 10-05-16 [facility] [place] Past Psychological History: Anxiety, Depression Smoking Status: Never smoker Past Alcohol Use History: Occasional Past Drug Use History: None Reported - Past Family History Mother Family Medical History: No Reported History Additional Family Medical History / Comment(s): . Medications and Allergies Home Medications Medication Instructions Recorded Confirmed Type Famotidine [Pepcid] 20 mg PO HS 06/20/16 03/02/24 History Montelukast [Singulair] 10 mg PO HS 06/20/16 03/02/24 History allopurinoL [Zyloprim] 300 mg PO HS 06/20/16 03/02/24 History FLUoxetine HCL [PROzac] 20 mg PO DAILY 10/03/16 03/02/24 History Isosorbide Mononitrate ER [Imdur] 30 mg PO DAILY 10/03/16 03/02/24 History Losartan [Cozaar] 12.5 mg PO DAILY 11/01/16 03/02/24 History Spironolactone [Aldactone] 12.5 mg PO HS 06/25/19 03/02/24 History Evolocumab [Repatha Syringe] 140 mg SQ DIRECTED 10/05/19 03/02/24 History Furosemide [Lasix] 40 mg PO DAILY 05/25/21 03/02/24 History Acetaminophen Tab [Tylenol] 650 mg PO TID 02/21/23 03/02/24 History Insulin Glargine,Hum.rec.anlog 10 units SQ BID 02/21/23 03/02/24 History [Lantus Solostar Pen] Insulin Lispro [humaLOG Kwikpen] See Protocol SQ AC-TID 02/21/23 03/02/24 History Loratadine [Claritin] 10 mg PO HS 02/21/23 03/02/24 History Ranolazine [Ranexa] 500 mg PO BID 02/21/23 03/02/24 History Rosuvastatin Calcium 5 mg PO DIRECTED 02/21/23 03/02/24 History carvediloL [Coreg] 12.5 mg PO BID 02/21/23 03/02/24 History Aspirin EC [Ecotrin Low Dose] 81 mg PO HS 03/02/24 03/02/24 History Empagliflozin [Jardiance] 10 mg PO DAILY 03/02/24 03/02/24 History FLUoxetine HCL [PROzac] 20 mg PO DAILY 03/02/24 03/02/24 History Semaglutide [Ozempic] 2 mg SQ TU 03/02/24 03/02/24 History Allergies Allergy/AdvReac Type Severity Reaction Status Date / Time amoxicillin [From Augmentin] Allergy Anaphylaxis Verified 03/02/24 08:00 /rash/hives cefprozil [From Cefzil] Allergy Anaphylaxis Verified 03/02/24 08:00 /rash/hives clavulanic acid Allergy Anaphylaxis Verified 03/02/24 08:00 [From Augmentin] /rash/hives sulfamethoxazole Allergy Anaphylaxis Verified 03/02/24 08:00 [From Bactrim] /rash/hives trimethoprim [From Bactrim] Allergy Anaphylaxis Verified 03/02/24 08:00 /rash/hives Physical Exam Vitals: Vital Signs Temp Pulse Resp BP Pulse Ox 03/02/24 08:55 60 18 118/68 99 03/02/24 06:00 61 18 101/56 99 03/02/24 03:58 67 18 139/71 100 03/01/24 23:51 62 18 122/52 100 03/01/24 19:45 60 18 107/54 100 03/01/24 17:13 98.1 F 68 18 123/76 96 Intake and Output 03/01/24 03/02/24 03/02/24 22:59 06:59 14:59 Other: Weight 75.296 kg Vital signs are stable. General: No acute distress. HEENT: Head exam is unremarkable. Lungs: Bilateral breath sounds present; no rhonchi, wheezes, or rales. Heart: Rate and rhythm are regular. Abdomen: Nontender. Extremities: No edema present. Results - Lab Results Most recent lab results Calcium 9.7 mg/dL (8.4-10.2) 03/02/24 03:16 03/02/24 03:16 03/02/24 03:16 Assessment and Plan Assessment: 1. Nephrolithiasis. 7 mm ovoid stone seen in proximal third left ureter (personally measured at 7mm x 19mm using the ruler tool). Mild hydronephrosis seen on CT on 03/01/2024. Urology consulted. 2. Acute kidney injury, prerenal and associated with low blood pressure. Nonoliguric. 3. Hypovolemic hyponatremia. Continue with saline. Hold Lasix. 4. Hypokalemia. Secondary to loop diuretics. Hold Lasix. Continue with Aldactone. 5. Chronic kidney disease stage IIIb. Baseline creatinine 1.7. Secondary to nephrosclerosis. Plan: Maintain IV fluids. Hold Lasix. Hold Cozaar and Coreg as blood pressure is low. Replete potassium. Repeat labs in the morning. Thank you for the consultation. We will continue to follow the patient with you during her hospitalization. Patient is seen and examined. Agree with resident's findings, assessment and plan.
[2024-03-02 16:44] LABS: Glucose,Whole Blood 179 mg/dL (70-110)
[2024-03-02 19:42] LABS: Glucose,Whole Blood 168 mg/dL (70-110)
[2024-03-02] MEDS: LORATADINE 10 MG TAB PO SCH (21:16)
[2024-03-02] MEDS: ASPIRIN 81 MG PO SCH (21:16)
[2024-03-02] MEDS: FAMOTIDINE 20 MG TAB PO SCH (21:16)
[2024-03-02] MEDS: MONTELUKAST 10 MG TAB PO SCH (21:17)
[2024-03-02] MEDS: allopurinoL 300 MG TAB PO SCH (21:18)
--- NOTE | 2024-03-02 23:32 | P.HPIM ---
History of Present Illness H&P Date: 03/02/24 HISTORY OF PRESENT ILLNESS: 73-year-old with active medical history of coronary artery disease post SD 3 times in the past with previous history of cardiac arrest back in 2017 post CABG, valvular heart disease post-TAVR, chronic history of chronic back pain with spinal stenosis and degenerative disc disease, chronic osteoarthritis, history of hypertension, hyperlipidemia, chronic edema and diastolic congestive heart failure, type 2 diabetes, history of asthma, recurrent gout, chronic history of chronic kidney disease, GERD, previous history of myocardial infarction, history of ischemic cardiomyopathy with low ejection fraction post AICD. With multiple other medical problem who presented to the emergency department on 03/01/2024 with complaint of dysuria and slight suprapubic pain and discomfort with concern about urinary tract infection denies any fever or chills her pain is mostly in the midline she has been complaining of some midsternal chest discomfort and tightness with no upper respiratory complaint with fever chills or cough. The time was seen in the emergency department her urine was not totally positive white blood cell 7.4 kidney function slightly bit worse with GFR down to 26 creatinine at 1.9 with potassium at 3.4 and mild hyponatremia. Troponin was negative at that time with no change in EKG. REVIEW OF SYSTEMS: CONSTITUTIONAL: Well-developed no acute respiratory distress. EYES: No icterus sclerae, no conjunctivitis. EARS, NOSE, MOUTH, THROAT, and FACE: No sore throat, lymphadenopathy, carotid bruits or deformity. RESPIRATORY: No SOB cough or wheezes. CARDIOVASCULAR: No CP, Palpitation, PND, Orthopnea, or angina. GASTROINTESTINAL: No Abd pain, Nausea or vomiting, no Diarrhea or constipation, No GI Bleed, no distention or masses. GENITOURINARY: Negative for Hematuria or UTI, no kidney stones. INTEGUMENT/BREAST: Negative for any muscular injury with mild osteoarthritis.. HEMATOLOGIC/LYMPHATIC: Negative for bleed or purpura. MUSCULOSKELTAL: Negative for Myalgia or arthralgia. NEURLOGICAL: No LOC, Sz or syncope, blurred vision dizziness or abnormality.. BEHAVIORAL/PSYCH: Negative. ENDOCRINE: Negative. PHYSICAL EXAMINATION: General Appearance: Alert, cooperative, no distress, appears stated age. Neck HEENT: Supple, no lymphadenopathy, no thyroid enlargement, no carotid bruits. Lungs: Clear to auscultation without crackles or wheezes no rhonchi, no deformity. Chest Wall: Chest wall normal expansion with deep inspiration no tenderness and no deformity was found on exam, no costochondral pain or discomfort. Heart: Regular rate and rhythm, S1, S2 normal, no murmur, rub or gallop. Back: Symmetric, no curvature, ROM normal, no CVA tenderness. Abdomen: Soft, non-tender, bowel sounds active all four quadrants, no masses, no organomegaly. Extremities: Extremities normal, atraumatic, no cyanosis or edema. Pulses: 2+ and symmetric. Skin: Skin color, texture, tugor normal, no rashes or lesions. Neurologic: Alert oriented x3 cranial nerves II through XII intact, no motor deficit, no abnormal balance or gait. ASSESSMENT AND PLAN: _Chest pain and discomfort: Atypical for angina, CK troponin is negative continue troponin x 3, will consult cardiology. _Urinary tract infection: Slightly with abnormal UA culture will be done no antibiotic was giving so far. Apparently was on Levaquin 250 mg daily as an outpatient which probably make her UA and culture is quite bit abnormal. _ large kidney stone: will consult Urology for possible stent. _ Hypoglycemia: will reduced Insulin. _Lower back pain: will be going for surgery in Apr by Dr Aggarwal at [facility]. _Coronary artery disease post CABG still seeing cardiology regularly. _Valvular heart disease with aortic stenosis post TAVR: Stable echocardiograms up-to-date. _Ischemic cardiomyopathy with congestive heart failure: Still on aggressive medical management with Coreg, spironolactone, Ranexa, losartan, isosorbide mononitrate, furosemide will continue medication. _Hypertension: Blood pressure is well-controlled currently on Coreg 12.5 mg in the morning and 25 mg at bedtime, spironolactone 12.5 mg a day, losartan 12.5 mg daily. _Hyperlipidemia: Remain on Repatha 140 mg injection twice a month. _Type 2 diabetes on Humalog Ozempic, will continue Accu-Chek and sliding scales coverage. _Severe GERD: Still on Pepcid 20 mg a day. _DVT prophylaxis: Early mobilization and knee-high SHAWNA hose. CODE STATUS: Full code. Admit patient to the inpatient service for 1-2 night stay. Past Medical History Past Medical History: Asthma, Coronary Artery Disease (CAD), Chest Pain / Angina, Heart Failure, Diabetes Mellitus, GERD/Reflux, Hyperlipidemia, Hypertension, Myocardial Infarction ([place]), Osteoarthritis (OA), Pneumonia, Renal Disease, Syncope Additional Past Medical History / Comment(s): [place] 1997, 2003, 2007, CARDIAC ARREST 2016,GOUT, SPINAL STENOSIS, BRONCHITIS, CONSTIPATION, HX OF DIZZINESS & FALLS, AORTIC STENOSIS, KIDNEY FAILURE STAGE 3-B, PACER/AICD, Fatigue, very SOB w/exertion recently. Aortic Valve Replacement Dec, 2019. Last Myocardial Infarction Date:: 2007 History of Any Multi-Drug Resistant Organisms: None Reported Past Surgical History: AICD, Appendectomy, Back Surgery, Section, Coronary Bypass/CABG, Heart Catheterization With Stent, Joint Replacement, Orthopedic Surgery, Pacemaker Additional Past Surgical History / Comment(s): ANGELIC 08/18/19, TOTAL RIGHT SHOUL COLEEN, BACK SURGERY X2, QUAD CABG-"DIAPHRAGM PARALIZED AFTER SX HAD TO GO TO PULMONARY REHAB, 7 HEART CATHS-MULTIPLE STENTS 3 C-SECTIONS, OVARIAN CYST(RT) Past Anesthesia/Blood Transfusion Reactions: No Reported Reaction Additional Past Anesthesia/Blood Transfusion Reaction / Comment(s): HX BLOOD TRANSFUSION - NO REACTION. Date of Last Stent Placement:: UNKNOWN Type of Cardiac Device: AICD Device Placement Date:: 10-05-16 [facility] Past Psychological History: Anxiety, Depression Smoking Status: Never smoker Past Alcohol Use History: Occasional Past Drug Use History: None Reported - Past Family History Mother Family Medical History: No Reported History Additional Family Medical History / Comment(s): . Medications and Allergies Home Medications Medication Instructions Recorded Confirmed Type Aspirin EC [Ecotrin Low Dose] 81 mg PO HS 06/20/16 02/21/23 History Famotidine [Pepcid] 20 mg PO HS 06/20/16 02/21/23 History Montelukast [Singulair] 10 mg PO HS 06/20/16 02/21/23 History allopurinoL [Zyloprim] 300 mg PO HS 06/20/16 02/21/23 History FLUoxetine HCL [PROzac] 20 mg PO DAILY 10/03/16 02/21/23 History Isosorbide Mononitrate ER [Imdur] 30 mg PO DAILY 10/03/16 02/21/23 History Losartan [Cozaar] 12.5 mg PO DAILY 11/01/16 02/21/23 History traMADol HCL [Ultram] 50 mg PO TID PRN 11/06/16 02/21/23 History Biotin 10,000 mcg PO DAILY 01/20/18 02/21/23 History Fish Oil/Dha/Epa [Fish Oil 1,200 1 cap PO DAILY 01/20/18 02/21/23 History mg Fish Oil] Spironolactone [Aldactone] 12.5 mg PO DAILY 06/25/19 02/21/23 History Evolocumab [Repatha Syringe] 140 mg SQ Q14D 10/05/19 02/21/23 History Ascorbic Acid [Vitamin C] 500 mg PO DAILY 05/25/21 02/21/23 History Furosemide [Lasix] 40 mg PO DAILY 05/25/21 02/21/23 History Acetaminophen Tab [Tylenol] 650 mg PO TID 02/21/23 02/21/23 History Insulin Glargine,Hum.rec.anlog 10 - 15 units SQ BID 02/21/23 02/21/23 History [Lantus Solostar Pen] Insulin Lispro [humaLOG Kwikpen] See Protocol SQ AC-TID 02/21/23 02/21/23 History Levofloxacin [Levaquin] 250 mg PO DAILY 10 Days #10 tablet 02/21/23 Rx Loratadine [Claritin] 10 mg PO HS 02/21/23 02/21/23 History Ranolazine [Ranexa] 500 mg PO BID 02/21/23 02/21/23 History Rosuvastatin Calcium 5 mg PO Q2D 02/21/23 02/21/23 History Semaglutide [Ozempic] 0.5 mg SQ TH 02/21/23 02/21/23 History carvediloL [Coreg] 12.5 mg PO DAILY 02/21/23 02/21/23 History carvediloL [Coreg] 25 mg PO HS 02/21/23 02/21/23 History traMADol HCL 50 mg PO Q6H 3 Days #12 tab 02/21/23 Rx Allergies Allergy/AdvReac Type Severity Reaction Status Date / Time amoxicillin [From Augmentin] Allergy Rash/Hives Verified 03/01/24 17:16 cefprozil [From Cefzil] Allergy Rash/Hives Verified 03/01/24 17:16 clavulanic acid Allergy Rash/Hives Verified 03/01/24 17:16 [From Augmentin] sulfamethoxazole Allergy Rash/Hives Verified 03/01/24 17:16 [From Bactrim] trimethoprim [From Bactrim] Allergy Rash/Hives Verified 03/01/24 17:16 Physical Exam Vitals: Vital Signs Temp Pulse Resp BP Pulse Ox 03/02/24 03:58 67 18 139/71 100 03/01/24 23:51 62 18 122/52 100 03/01/24 19:45 60 18 107/54 100 03/01/24 17:13 98.1 F 68 18 123/76 96 Intake and Output 03/01/24 03/01/24 03/02/24 14:59 22:59 06:59 Other: Weight 75.296 kg Results CBC & Chem 7: 03/02/24 03:16 03/02/24 03:16 Labs: Abnormal Lab Results - Last 24 Hours (Table) 03/01/24 03/01/24 03/01/24 Range/Units 17:21 17:21 17:21 MCV 100.1 H (80.0-100.0) fL Sodium 135 L (137-145) mmol/L Potassium 3.4 L (3.5-5.1) mmol/L BUN 35 H (7-17) mg/dL Creatinine 1.90 H (0.52-1.04) mg/dL Glucose (74-99) mg/dL POC Glucose (mg/dL) (70-110) mg/dL Urine Glucose (UA) 3+ H (Negative) Ur Leukocyte Esterase Trace H (Negative) Urine WBC 6 H (0-5) /hpf Hyaline Casts 15 H (0-2) /lpf Urine Mucus Rare H (None) /hpf 03/01/24 03/01/24 03/02/24 Range/Units 21:31 21:56 03:16 MCV 100.2 H (80.0-100.0) fL Sodium (137-145) mmol/L Potassium (3.5-5.1) mmol/L BUN (7-17) mg/dL Creatinine (0.52-1.04) mg/dL Glucose (74-99) mg/dL POC Glucose (mg/dL) 57 L 59 L (70-110) mg/dL Urine Glucose (UA) (Negative) Ur Leukocyte Esterase (Negative) Urine WBC (0-5) /hpf Hyaline Casts (0-2) /lpf Urine Mucus (None) /hpf 03/02/24 03/02/24 Range/Units 03:16 05:45 MCV (80.0-100.0) fL Sodium 133 L (137-145) mmol/L Potassium 3.0 L (3.5-5.1) mmol/L BUN 30 H (7-17) mg/dL Creatinine 1.73 H (0.52-1.04) mg/dL Glucose 153 H (74-99) mg/dL POC Glucose (mg/dL) 156 H (70-110) mg/dL Urine Glucose (UA) (Negative) Ur Leukocyte Esterase (Negative) Urine WBC (0-5) /hpf Hyaline Casts (0-2) /lpf Urine Mucus (None) /hpf
[2024-03-03 06:15] LABS: Glucose,Whole Blood 98 mg/dL (70-110)
[2024-03-03 07:15] LABS: HCT 38.8 % (34.0-46.0); HGB 12.8 gm/dL (11.4-16.0); MCHC 33.1 g/dL (31.0-37.0); Macrocytosis Slight; Mean Platelet Volume 7.9; Platelet Count 159 k/uL (150-450); RBC 3.88 m/uL (3.80-5.40); RDW 14.7 % (11.5-15.5); WBC 5.4 k/uL (3.8-10.6)
[2024-03-03 08:23] LABS: ALT 14 U/L (4-34); AST 21 U/L (14-36); African American GFR (CKD) 37 (>60 ml/min/1.73 sqM); Albumin 3.1 g/dL (3.5-5.0); Alkaline Phosphatase 87 U/L (38-126); Anion Gap 6 mmol/L; Blood Urea Nitrogen 27 mg/dL (7-17); Calcium 9.3 mg/dL (8.4-10.2); Carbon Dioxide 23 mmol/L (22-30); Chloride 106 mmol/L (98-107); Glucose 88 mg/dL (74-99); Non-African American GFR(CKD) 32 (>60 ml/min/1.73 sqM); Potassium 3.1 mmol/L (3.5-5.1); Sodium 135 mmol/L (137-145); Total Bilirubin 0.4 mg/dL (0.2-1.3); Total Protein 5.1 g/dL (6.3-8.2)
--- NOTE | 2024-03-03 10:16 | P.PN ---
Subjective Progress Note Date: 03/03/24 Creatinine 1.6 this morning, continues to have some left flank pain Objective - Vital Signs Vital signs: Vital Signs Temp 97.7 F 03/03/24 07:15 Pulse 64 03/03/24 07:15 Resp 18 03/03/24 07:15 BP 114/74 03/03/24 07:15 Pulse Ox 99 03/03/24 07:15 FiO2 Intake & Output 03/02/24 03/03/24 03/03/24 18:59 06:59 18:59 Intake Total 0 Balance 0 Weight 75.296 kg Intake: Oral 0 Other: Voiding Method Toilet # Voids 2 - Constitutional General appearance: Present: no acute distress - Gastrointestinal General gastrointestinal: Present: soft. Absent: distended, tenderness - Psychiatric Psychiatric: Present: A&O x's 3 - Labs CBC & Chem 7: 03/03/24 06:14 03/03/24 06:14 Labs: Abnormal Lab Results - Last 24 Hours (Table) 03/02/24 03/02/24 03/02/24 Range/Units 12:19 16:43 19:41 Sodium (137-145) mmol/L Potassium (3.5-5.1) mmol/L BUN (7-17) mg/dL Creatinine (0.52-1.04) mg/dL POC Glucose (mg/dL) 150 H 179 H 168 H (70-110) mg/dL Total Protein (6.3-8.2) g/dL Albumin (3.5-5.0) g/dL 03/03/24 Range/Units 06:14 Sodium 135 L (137-145) mmol/L Potassium 3.1 L (3.5-5.1) mmol/L BUN 27 H (7-17) mg/dL Creatinine 1.60 H (0.52-1.04) mg/dL POC Glucose (mg/dL) (70-110) mg/dL Total Protein 5.1 L (6.3-8.2) g/dL Albumin 3.1 L (3.5-5.0) g/dL Assessment and Plan Assessment: 73-year-old female with history of 1.6 cm left-sided proximal stone, discussed with her the stone is fairly large chance of spontaneous passage is not possible. Discussed given the hydronephrosis and the location of the stone she will require surgical intervention for kidney stone. Discussed with her the option of left-sided ureteroscopy with holmium laser, aware the risk which includes but not limited to bleeding, infection, injury to the ureter. Discussed also given the size of the stone she might require to surgery to completely clear stone burden. She was evaluated by cardiology , and was cleared for surgery -N.p.o. -OR for left-sided ureteroscopy with holmium laser and stent insertion
[2024-03-03] MEDS: POTASSIUM CHLORIDE 20 MEQ in WATER FOR INJECTION 1 100ML.BAG IVPB SCH (10:51)
[2024-03-03 10:52] LABS: Glucose,Whole Blood 100 mg/dL (70-110)
[2024-03-03] MEDS: POTASSIUM CHLORIDE ER 20 MEQ TAB.ER PO STA (12:00)
--- NOTE | 2024-03-03 12:52 | P.PN ---
Subjective Progress Note Date: 03/03/24 Patient is being followed for acute kidney injury secondary to post renal obstruction due to nephrolithiasis. Creatinine 1.6 today, down from 1.9 on admission 03/01/2024. Patient is undergoing left-sided urteroscopy with holmium laser today. No significant complaints today. Rates back pain < 2/10. Objective - Vital Signs Vital signs: Vital Signs Temp 97.7 F 03/03/24 07:15 Pulse 64 03/03/24 07:15 Resp 18 03/03/24 07:15 BP 114/74 03/03/24 07:15 Pulse Ox 99 03/03/24 07:15 FiO2 Intake & Output 03/02/24 03/03/24 03/03/24 18:59 06:59 18:59 Intake Total 0 Balance 0 Weight 75.296 kg Intake: Oral 0 Other: Voiding Method Toilet # Voids 2 - Exam Vital signs are stable. General: No acute distress. HEENT: Head exam is unremarkable. Lungs: Bilateral breath sounds present; no rhonchi, wheezes, or rales. Heart: Rate and rhythm are regular. Abdomen: Nontender. Extremities: No edema present. - Labs CBC & Chem 7: 03/03/24 06:14 03/03/24 06:14 Labs: Abnormal Lab Results - Last 24 Hours (Table) 03/02/24 03/02/24 03/02/24 Range/Units 08:12 12:19 16:43 POC Glucose (mg/dL) 140 H 150 H 179 H (70-110) mg/dL 03/02/24 Range/Units 19:41 POC Glucose (mg/dL) 168 H (70-110) mg/dL Assessment and Plan Assessment: 1. Nephrolithiasis. 7 mm ovoid stone seen in proximal third left ureter (personally measured at 7mm x 19mm using the ruler tool). Mild hydronephrosis seen on CT on 03/01/2024. Urology consulted - measured stone to be 11 x 16 mm). Undergoing left-sided ereteroscopy with holmium laser today. 2. Acute kidney injury, prerenal and associated with low blood pressure. No noliguric. 3. Hypovolemic hyponatremia. Continue with saline. Hold Lasix. 4. Hypokalemia. Secondary to loop diuretics. Hold Lasix. Continue with Aldactone. 5. Chronic kidney disease stage IIIb. Baseline creatinine 1.7. Secondary to nephrosclerosis. Plan: Undergoing left-sided ureteroscopy with holmium laser today. Replete potassium. Maintain IV fluids. Hold Lasix. agree with resident's findings assessment and plan.
[2024-03-03 13:41] LABS: Glucose,Whole Blood 89 mg/dL (70-110)
[2024-03-03] MEDS: IV FLUID CONTINUATION 1,000 ML IV ONE ×2 (13:42)
[2024-03-03] MEDS: LACTATED RINGERS 1,000 ML BAG IV STA (13:43)
[2024-03-03] MEDS: ONDANSETRON 4 MG/2 ML VIAL IVP STA (13:46)
[2024-03-03] MEDS ORDERED: GLYCOPYRROLATE 0.2 MG/ML 2 ML VIAL ONE (14:43)
[2024-03-03] MEDS ORDERED: LIDOCAINE 1% INJ 10MG/ML (20 ML MDV) ONE (14:43)
[2024-03-03] MEDS ORDERED: ePHEDrine 50 MG/ML 1 ML VIAL ONE (14:43)
[2024-03-03] MEDS ORDERED: PROPOFOL 10 MG/ML 20 ML VIAL IV ONE (14:43)
[2024-03-03] MEDS ORDERED: fentaNYL (PF) 50 MCG/ML 2 ML AMP ONE (14:43)
[2024-03-03] MEDS: CIPROFLOXACIN/DEXTROSE PMX 400 MG in DEXTROSE/WATER 1 200ML.BAG IVPB STA (14:48)
--- NOTE | 2024-03-03 16:07 | P.OP ---
Date of Procedure: 03/03/24 Preoperative Diagnosis: Left renal stone Postoperative Diagnosis: Same Procedure(s) Performed: Cystoscopy, left ureteroscopy, holmium laser lithotripsy, stone basketing and stent insertion Implants: 6 Turkish by 22 cm stent in the left ureter Anesthesia: DEAN Surgeon: Oren Brannon Estimated Blood Loss (ml): 10 Pathology: other (Left renal stone) Condition: stable Disposition: PACU Indications for Procedure: This is a 73-year-old female with history of a 1.6 cm left-sided UPJ stone, she is having symptoms secondary to her stone. Discussed given the size of the stone chance of spontaneous passage is unlikely, discussed I do recommend proceeding with left-sided ureteroscopy with holmium laser. Aware the risk which includes but not limited to bleeding, infection, injury to the ureter Operative Findings: Large left-sided stone in the UPJ Description of Procedure: Patient brought to the operating room, general anesthesia was induced. She was prepped and draped in sterile fashion placed in dorsolithotomy position. Cystoscopy through the 21 Turkish sheath was inserted per urethra, cystoscopy was performed which showed no abnormality within the bladder. Attention was then carried to the left ureteral orifice which was intubated with a sensor wire. Next a wire was advanced under fluoroscopy to the renal pelvis. Next under fluoroscopy 1113 Turkish access sheath was passed over the wire and into the proximal ureter. The flexible ureteroscope was inserted through the access sheath, at this point a radiopaque stone was encountered at the UPJ. Using the holmium laser the stone was dusted, any sizable fragments that were seen were basketed, repeat renoscopy showed no sizable fragments or injury to the kidney, on fluoroscopy there was no radiopaque densities seen. Pullback ureteroscopy was performed showed no injury to the ureter or any ureteral stones, as ureteroscope was withdrawn a sensor wire was advanced through. Next ureteral stent was passed over the wire, the proximal curl visualized on fluoroscopy and the distal curl was visualized using the cystoscope. The bladder was emptied at the end of the case. Patient tolerated procedure was taken to recovery in stable condition. she Will follow-up in 2 weeks for a stent removal
[2024-03-03] MEDS ORDERED: HYDROmorphone 0.5 MG/0.5 ML SYRINGE IVP PRN (17:00)
[2024-03-03] MEDS ORDERED: MIDAZOLAM 2 MG/2 ML VIAL IV PRN (17:00)
[2024-03-03] MEDS: DEXAMETHASONE SOD PHOSPHATE 4 MG/ML 1 ML VIAL IV ONE (17:30)
[2024-03-03] MEDS: LACTATED RINGERS 1,000 ML IV SCH (17:30)
[2024-03-03] MEDS: ONDANSETRON 4 MG/2 ML VIAL IVP ONE (17:30)
--- NOTE | 2024-03-03 18:45 | FL ---
Intraoperative/procedural fluoroscopic services were provided for cystoscopy. Total fluoroscopy time is 27.4 dense with a total of 1 submitted image to PACS. Total DAP [id number] [id number]. Please see the ope rative note for further details.
[2024-03-03 19:54] LABS: Glucose,Whole Blood 103 mg/dL (70-110)
[2024-03-03] MEDS: PROCHLORPERAZINE INJ 10 MG/2 ML VIAL IVP PRN (20:51)
[2024-03-03] MEDS: SPIRONOLACTONE 25 MG TAB PO SCH (20:56)
--- NOTE | 2024-03-04 05:20 | P.PN ---
Subjective Progress Note Date: 03/03/24 HISTORY OF PRESENT ILLNESS: 73-year-old with active medical history of coronary artery disease post LA 3 times in the past with previous history of cardiac arrest back in 2017 post CABG, valvular heart disease post-TAVR, chronic history of chronic back pain with spinal stenosis and degenerative disc disease, chronic osteoarthritis, history of hypertension, hyperlipidemia, chronic edema and diastolic congestive heart failure, type 2 diabetes, history of asthma, recurrent gout, chronic history of chronic kidney disease, GERD, previous history of myocardial infarction, history of ischemic cardiomyopathy with low ejection fraction post AICD. With multiple other medical problem who presented to the emergency department on 03/01/2024 with complaint of dysuria and slight suprapubic pain and discomfort with concern about urinary tract infection denies any fever or chills her pain is mostly in the midline she has been complaining of some midsternal chest discomfort and tightness with no upper respiratory complaint with fever chills or cough. The time was seen in the emergency department her urine was not totally positive white blood cell 7.4 kidney function slightly bit worse with GFR down to 26 creatinine at 1.9 with potassium at 3.4 and mild hyponatremia. Troponin was negative at that time with no change in EKG. 03/03/2024:She was seen and evaluated by nephrology and agree with the current acute kidney injury to lower any possibility for nephrotoxic agent with the blood pressure being low will hold losartan, carvedilol should be continued based on cardiac prevention, patient had large stone at 1.6 cm on the left side proximal hydronephrosis and when seen urology had discussed the possibility of intervention for left-sided ureteroscopy with holmium laser this patient is very clear for surgery specially after seeing cardiology and exclude the possibility of acute LA she is scheduled for this intervention tomorrow. Patient not having any further signs and symptoms of chest pain or angina and probably a kidney stone and the finding is consistent with her complaint of dysuria and suprapubic pain that she presented with early still having to worry about infection specially with hydronephrosis and obstructive uropathy, will continue antibiotics and prepare for surgery today. REVIEW OF SYSTEMS: CONSTITUTIONAL: Well-developed no acute respiratory distress. EYES: No icterus sclerae, no conjunctivitis. EARS, NOSE, MOUTH, THROAT, and FACE: No sore throat, lymphadenopathy, carotid br uits or deformity. RESPIRATORY: No SOB cough or wheezes. CARDIOVASCULAR: No CP, Palpitation, PND, Orthopnea, or angina. GASTROINTESTINAL: No Abd pain, Nausea or vomiting, no Diarrhea or constipation, No GI Bleed, no distention or masses. GENITOURINARY: Negative for Hematuria or UTI, no kidney stones. INTEGUMENT/BREAST: Negative for any muscular injury with mild osteoarthritis.. HEMATOLOGIC/LYMPHATIC: Negative for bleed or purpura. MUSCULOSKELTAL: Negative for Myalgia or arthralgia. NEURLOGICAL: No LOC, Sz or syncope, blurred vision dizziness or abnormality.. BEHAVIORAL/PSYCH: Negative. ENDOCRINE: Negative. PHYSICAL EXAMINATION: General Appearance: Alert, cooperative, no distress, appears stated age. Neck HEENT: Supple, no lymphadenopathy, no thyroid enlargement, no carotid bruits. Lungs: Clear to auscultation without crackles or wheezes no rhonchi, no deformit y. Chest Wall: Chest wall normal expansion with deep inspiration no tenderness and no deformity was found on exam, no costochondral pain or discomfort. Heart: Regular rate and rhythm, S1, S2 normal, no murmur, rub or gallop. Back: Symmetric, no curvature, ROM normal, no CVA tenderness. Abdomen: Soft, non-tender, bowel sounds active all four quadrants, no masses, no organomegaly. Extremities: Extremities normal, atraumatic, no cyanosis or edema. Pulses: 2+ and symmetric. Skin: Skin color, texture, tugor normal, no rashes or lesions. Neurologic: Alert oriented x3 cranial nerves II through XII intact, no motor deficit, no abnormal balance or gait. ASSESSMENT AND PLAN: _Chest pain and discomfort: All CK and troponin was negative. No intervention required by cardiology and myocardial infarction was excluded. _Urinary tract infection: She is off antibiotic still not recommended at this point with urology may be waiting till she goes for surgery and to be restarted back on antibiotics. _ large kidney stone: At 1.6 cm patient is going for left-sided ureteroscopy with holmium laser _ Hypoglycemia: will reduced Insulin. Continue to watch Accu-Chek and sliding scales coverage. _Lower back pain: will be going for surgery in Apr by Dr Aggarwal at [facility]. Probably surgery still can be scheduled for few weeks down the road. _Coronary artery disease post CABG still seeing cardiology regularly. And with her symptoms exclude the possibility of LA for now continue medical management. _Valvular heart disease with aortic stenosis post TAVR: Stable echocardiograms up-to-date. _Ischemic cardiomyopathy with congestive heart failure: Still on aggressive medical management with Coreg, spironolactone, Ranexa, losartan, isosorbide mononitrate, furosemide will continue medication. _Hypertension: Blood pressure is well-controlled currently on Coreg 12.5 mg in t he morning and 25 mg at bedtime, spironolactone 12.5 mg a day, losartan 12.5 mg daily. _Hyperlipidemia: Remain on Repatha 140 mg injection twice a month. _Type 2 diabetes on Humalog Ozempic, will continue Accu-Chek and sliding scales coverage. Discussion: Patient was admitted yesterday no further chest pain, significant improvement in kidney function but found to have obstructive uropathy, patient be going for intervention for left-sided ureteroscopy with holmium laser without complication expected patient might benefit and will require probably an antibiotic afterward with waiting for urology to make this conclusion otherwise continue medical management watch for any decline in kidney function overall this intervention goes well today patient might be stable to be discharged in 24 hours. Objective - Vital Signs Vital signs: Vital Signs Temp 98.4 F 03/02/24 16:53 Pulse 63 03/03/24 02:00 Resp 14 03/03/24 02:00 BP 127/61 03/03/24 02:00 Pulse Ox 99 03/03/24 02:00 FiO2 Intake & Output 03/02/24 03/02/24 03/03/24 06:59 18:59 06:59 Weight 75.296 kg Other: Voiding Method Toilet - Labs CBC & Chem 7: 03/03/24 06:14 03/03/24 06:14 Labs: Abnormal Lab Results - Last 24 Hours (Table) 03/02/24 03/02/24 03/02/24 Range/Units 05:45 08:12 12:19 POC Glucose (mg/dL) 156 H 140 H 150 H (70-110) mg/dL 03/02/24 03/02/24 Range/Units 16:43 19:41 POC Glucose (mg/dL) 179 H 168 H (70-110) mg/dL
[2024-03-04 05:35] LABS: Glucose,Whole Blood 120 mg/dL (70-110)
[2024-03-04 07:50] VITALS: PULSE 62; RESP 17; TEMP 98.4
[2024-03-04 11:17] VITALS: BP 95/64
[2024-03-04 11:20] LABS: African American GFR (CKD) 40 (>60 ml/min/1.73 sqM); Anion Gap 4 mmol/L; Blood Urea Nitrogen 23 mg/dL (7-17); Calcium 9.2 mg/dL (8.4-10.2); Carbon Dioxide 24 mmol/L (22-30); Chloride 106 mmol/L (98-107); Glucose 94 mg/dL (74-99); Non-African American GFR(CKD) 35 (>60 ml/min/1.73 sqM); Potassium 4.4 mmol/L (3.5-5.1); Sodium 134 mmol/L (137-145)
--- NOTE | 2024-03-04 11:33 | P.PN ---
Subjective Patient is being followed for acute kidney injury secondary to post renal obstruction due to nephrolithiasis. Creatinine 1.49 today, down from 1.9 on admission 03/01/2024. Patient is status postleft-sided urteroscopy with holmium laser yesterday No significant complaints today. going home today. Office records were reviewed and ultrasound in March 2022 did not show any kidney stones. Objective - Vital Signs Vital signs: Vital Signs Temp 98.4 F 03/04/24 07:49 Pulse 62 03/04/24 07:49 Resp 17 03/04/24 07:49 BP 95/64 03/04/24 08:15 Pulse Ox 96 03/04/24 07:49 FiO2 Intake & Output 03/03/24 03/04/24 03/04/24 18:59 06:59 18:59 Intake Total 1000 Output Total 10 Balance 990 Weight 75.296 kg Intake: IV 1000 Output: Estimated Blood Loss 10 Other: Voiding Method Toilet Toilet # Voids 0 2 - Exam Vital signs are stable. General: No acute distress. Extremities: No edema present. - Labs CBC & Chem 7: 03/03/24 06:14 03/04/24 10:52 Labs: Abnormal Lab Results - Last 24 Hours (Table) 03/04/24 03/04/24 Range/Units 05:33 10:52 Sodium 134 L (137-145) mmol/L BUN 23 H (7-17) mg/dL Creatinine 1.49 H (0.52-1.04) mg/dL POC Glucose (mg/dL) 120 H (70-110) mg/dL Assessment and Plan Assessment: 1. Nephrolithiasis. 7 mm ovoid stone seen in proximal third left ureter (personally measured at 7mm x 19mm using the ruler tool). Mild hydronephrosis seen on CT on 03/01/2024. - measured stone to be 11 x 16 mm). status post left-sided ereteroscopy with holmium laser yesterday. discussed with the patient regarding the fact that most kidney stones are calcium containing stones and she should restrict the sodium intake to help decrease calcium secretion in the urine. Maintain adequate fluid intake. Continue to avoid calcium supplements. 2. Acute kidney injury, prerenal and associated with low blood pressure. Nonoliguric. 3. Hypovolemic hyponatremia. Continue with saline. Hold Lasix. 4. Hypokalemia. Secondary to loop diuretics. Hold Lasix. Continue with Aldactone. 5. Chronic kidney disease stage IIIb. Baseline creatinine 1.7. Secondary to nephrosclerosis. Plan: stable for discharge from nephrology standpoint. Check 24 hour urine for stone profile in 1-2 months.
--- NOTE | 2024-03-04 22:02 | P.PN ---
Subjective Status post left-sided ureteroscopy with holmium laser, doing well denies any flank pain or gross hematuria. Creat 1.49 this am Objective - Vital Signs Vital signs: Vital Signs Temp 98.4 F 03/04/24 07:49 Pulse 62 03/04/24 07:49 Resp 17 03/04/24 07:49 BP 95/64 03/04/24 08:15 Pulse Ox 96 03/04/24 07:49 FiO2 Intake & Output 03/04/24 03/04/24 03/05/24 06:59 18:59 06:59 Other: Voiding Method Toilet # Voids 2 - Constitutional General appearance: Present: no acute distress - Labs CBC & Chem 7: 03/03/24 06:14 03/04/24 10:52 Labs: Abnormal Lab Results - Last 24 Hours (Table) 03/04/24 03/04/24 Range/Units 05:33 10:52 Sodium 134 L (137-145) mmol/L BUN 23 H (7-17) mg/dL Creatinine 1.49 H (0.52-1.04) mg/dL POC Glucose (mg/dL) 120 H (70-110) mg/dL Assessment and Plan Assessment: Status post left-sided ureteroscopy with holmium laser. Doing well this morning. She is okay for discharge from urology standpoint -Follow-up in 2 to 3 weeks for cystoscopy and stent removal in the office
[2024-03-05] MEDS ORDERED: SEMAGLUTIDE 0.25 MG/0.4 ML SQ SCH (09:00)
--- NOTE | 2024-03-08 18:54 | P.DS ---
Providers Date of admission: 03/02/24 10:21 Attending physician: Galo Borges Consults: 03/01/24 21:29 Consult Physician Urgent Consulting Provider: Oren Brannon Consult Reason/Comments: left ureteral stone with hydro, maura/ckd Do you want consulting provider notified?: Yes 03/02/24 07:42 Consult Physician Routine Consulting Provider: Minerva Avalos Consult Reason/Comments: CKD Do you want consulting provider notified?: Yes Primary care physician: [facility] Course: HISTORY OF PRESENT ILLNESS: 73-year-old with active medical history of coronary artery disease post WA 3 times in the past with previous history of cardiac arrest back in 2017 post CABG, valvular heart disease post-TAVR, chronic history of chronic back pain with spinal stenosis and degenerative disc disease, chronic osteoarthritis, history of hypertension, hyperlipidemia, chronic edema and diastolic congestive heart failure, type 2 diabetes, history of asthma, recurrent gout, chronic history of chronic kidney disease, GERD, previous history of myocardial infarction, history of ischemic cardiomyopathy with low ejection fraction post AICD. With multiple other medical problem who presented to the emergency department on 03/01/2024 with complaint of dysuria and slight suprapubic pain and discomfort with concern about urinary tract infection denies any fever or chills her pain is mostly in the midline she has been complaining of some midsternal chest discomfort and tightness with no upper respiratory complaint with fever chills or cough. The time was seen in the emergency department her urine was not totally positive white blood cell 7.4 kidney function slightly bit worse with GFR down to 26 creatinine at 1.9 with potassium at 3.4 and mild hyponatremia. Troponin was neg ative at that time with no change in EKG. 03/03/2024:She was seen and evaluated by nephrology and agree with the current acute kidney injury to lower any possibility for nephrotoxic agent with the blood pressure being low will hold losartan, carvedilol should be continued based on cardiac prevention, patient had large stone at 1.6 cm on the left side proximal hydronephrosis and when seen urology had discussed the possibility of intervention for left-sided ureteroscopy with holmium laser this patient is very clear for surgery specially after seeing cardiology and exclude the possibility of acute WA she is scheduled for this intervention tomorrow. Patient not having any further signs and symptoms of chest pain or angina and probably a kidney stone and the finding is consistent with her complaint of dysuria and suprapubic pain that she presented with early still having to worry about infection specially with hydronephrosis and obstructive uropathy, will continue antibiotics and prepare for surgery today. REVIEW OF SYSTEMS: CONSTITUTIONAL: Well-developed no acute respiratory distress. EYES: No icterus sclerae, no conjunctivitis. EARS, NOSE, MOUTH, THROAT, and FACE: No sore throat, lymphadenopathy, carotid bruits or deformity. RESPIRATORY: No SOB cough or wheezes. CARDIOVASCULAR: No CP, Palpitation, PND, Orthopnea, or angina. GASTROINTESTINAL: No Abd pain, Nausea or vomiting, no Diarrhea or constipation, No GI Bleed, no distention or masses. GENITOURINARY: Negative for Hematuria or UTI, no kidney stones. INTEGUMENT/BREAST: Negative for any muscular injury with mild osteoarthritis.. HEMATOLOGIC/LYMPHATIC: Negative for bleed or purpura. MUSCULOSKELTAL: Negative for Myalgia or arthralgia. NEURLOGICAL: No LOC, Sz or syncope, blurred vision dizziness or abnormality.. BEHAVIORAL/PSYCH: Negative. ENDOCRINE: Negative. PHYSICAL EXAMINATION: General Appearance: Alert, cooperative, no distress, appears stated age. Neck HEENT: Supple, no lymphadenopathy, no thyroid enlargement, no carotid bruits. Lungs: Clear to auscultation without crackles or wheezes no rhonchi, no deformity. Chest Wall: Chest wall normal expansion with deep inspiration no tenderness and no deformity was found on exam, no costochondral pain or discomfort. Heart: Regular rate and rhythm, S1, S2 normal, no murmur, rub or gallop. Back: Symmetric, no curvature, ROM normal, no CVA tenderness. Abdomen: Soft, non-tender, bowel sounds active all four quadrants, no masses, no organomegaly. Extremities: Extremities normal, atraumatic, no cyanosis or edema. Pulses: 2+ and symmetric. Skin: Skin color, texture, tugor normal, no rashes or lesions. Neurologic: Alert oriented x3 cranial nerves II through XII intact, no motor d eficit, no abnormal balance or gait. ASSESSMENT AND PLAN: _Chest pain and discomfort: All CK and troponin was negative. No intervention required by cardiology and myocardial infarction was excluded. _Urinary tract infection: She is off antibiotic still not recommended at this point with urology may be waiting till she goes for surgery and to be restarted back on antibiotics. _ large kidney stone: At 1.6 cm patient is going for left-sided ureteroscopy with holmium laser _ Hypoglycemia: will reduced Insulin. Continue to watch Accu-Chek and sliding scales coverage. _Lower back pain: will be going for surgery in Apr by Dr Aggarwal at [facility]. Probably surgery still can be scheduled for few weeks down the road. _Coronary artery disease post CABG still seeing cardiology regularly. And with her symptoms exclude the possibility of WA for now continue medical management. _Valvular heart disease with aortic stenosis post TAVR: Stable echocardiograms up-to-date. _Ischemic cardiomyopathy with congestive heart failure: Still on aggressive medical management with Coreg, spironolactone, Ranexa, losartan, isosorbide mononitrate, furosemide will continue medication. _Hypertension: Blood pressure is well-controlled currently on Coreg 12.5 mg in the morning and 25 mg at bedtime, spironolactone 12.5 mg a day, losartan 12.5 mg daily. _Hyperlipidemia: Remain on Repatha 140 mg injection twice a month. _Type 2 diabetes on Humalog Ozempic, will continue Accu-Chek and sliding scales coverage. Discussion: Patient was hospitalized for atypical chest pain but found to have urinary tract infection with large kidney stone at 1.6 cm in the left side ended up going for lithotripsy with stent by urology successfully and has done very well. Patient was evaluated by cardiology and felt no need for any intervention for her chest pain and angina. Also she been dealing with severe lower back pain scheduled for surgery by Dr. Gomez at [facility]. Hospital course: Patient was admitted on 03/01/2024 for dysuria and pain and discomfort with suprapubic area with no fever or chills also complaining of midsternal chest pain and discomfort with tightness with no upper respiratory symptoms with no fever or chills or cough. At the time was seen in the emergency department GFR was down to 26 with creatinine 1.9 potassium 3.4 with mild hyponatremia troponin was negative with no change in EKG. Patient was admitted for angina and UTI with large cyst found on the left sided required ureteroscopy with holmium laser. She was seen and evaluated by urology and the plan was to go for this procedure to avoid having hydronephrosis and obstruction in the left side. Patient ended up going for lithotripsy with stent placement successfully with no major complication, review of her kidney function and blood test on the with creatinine down to 1.49 with GFR is up to 35. Patient was feeling well with the stone out no further chest pain or angina no need for any cardiology intervention. Patient be discharged home to follow-up with urology for her stent taking out as an outpatient and will be seen back in our office shortly this time. Time spent on patient discharge was over 35 minutes. Patient Condition at Discharge: Stable Plan - Discharge Summary Discharge Rx Participant: Yes New Discharge Prescriptions: Continue Montelukast [Singulair] 10 mg PO HS Famotidine [Pepcid] 20 mg PO HS allopurinoL [Zyloprim] 300 mg PO HS FLUoxetine HCL [PROzac] 20 mg PO DAILY Isosorbide Mononitrate ER [Imdur] 30 mg PO DAILY Losartan [Cozaar] 12.5 mg PO DAILY Spironolactone [Aldactone] 12.5 mg PO HS Evolocumab [Repatha Syringe] 140 mg SQ DIRECTED Acetaminophen Tab [Tylenol] 650 mg PO TID Rosuvastatin Calcium 5 mg PO DIRECTED Insulin Lispro [humaLOG Kwikpen] See Protocol SQ AC-TID carvediloL [Coreg] 12.5 mg PO BID FLUoxetine HCL [PROzac] 20 mg PO DAILY Semaglutide [Ozempic] 2 mg SQ TU Furosemide [Lasix] 40 mg PO DAILY Insulin Glargine,Hum.rec.anlog [Lantus Solostar Pen] 10 units SQ BID Ranolazine [Ranexa] 500 mg PO BID Loratadine [Claritin] 10 mg PO HS Empagliflozin [Jardiance] 10 mg PO DAILY Aspirin EC [Ecotrin Low Dose] 81 mg PO HS Discharge Medication List Famotidine [Pepcid] 20 mg PO HS 06/20/16 [History] Montelukast [Singulair] 10 mg PO HS 06/20/16 [History] allopurinoL [Zyloprim] 300 mg PO HS 06/20/16 [History] FLUoxetine HCL [PROzac] 20 mg PO DAILY 10/03/16 [History] Isosorbide Mononitrate ER [Imdur] 30 mg PO DAILY 10/03/16 [History] Losartan [Cozaar] 12.5 mg PO DAILY 11/01/16 [History] Spironolactone [Aldactone] 12.5 mg PO HS 06/25/19 [History] Evolocumab [Repatha Syringe] 140 mg SQ DIRECTED 10/05/19 [History] Furosemide [Lasix] 40 mg PO DAILY 05/25/21 [History] Acetaminophen Tab [Tylenol] 650 mg PO TID 02/21/23 [History] Insulin Glargine,Hum.rec.anlog [Lantus Solostar Pen] 10 units SQ BID 02/21/23 [History] Insulin Lispro [humaLOG Kwikpen] See Protocol SQ AC-TID 02/21/23 [History] Loratadine [Claritin] 10 mg PO HS 02/21/23 [History] Ranolazine [Ranexa] 500 mg PO BID 02/21/23 [History] Rosuvastatin Calcium 5 mg PO DIRECTED 02/21/23 [History] carvediloL [Coreg] 12.5 mg PO BID 02/21/23 [History] Aspirin EC [Ecotrin Low Dose] 81 mg PO HS 03/02/24 [History] Empagliflozin [Jardiance] 10 mg PO DAILY 03/02/24 [History] FLUoxetine HCL [PROzac] 20 mg PO DAILY 03/02/24 [History] Semaglutide [Ozempic] 2 mg SQ TU 03/02/24 [History] Follow up Appointment(s)/Referral(s): Oren Brannon MD [STAFF PHYSICIAN] - 1 Week (Office will call you to schedule appointment.) Galo Borges MD [Primary Care Provider] - 1-2 days Patient Instructions/Handouts: Hydronephrosis (DC), Ureteral Stones (DC), Ureteral Stent Placement (DC) Discharge Disposition: HOME SELF-CARE
== END 2024-03-04 11:53 | disposition home or self-care (01) | DRG 660 ==
LOC: EC 17:08 → 6NMEDSUR 21:29 → OBSVTOIN 03-02 10:21 → 1SOBS 03-02 15:36
PROVIDERS: ADMIT Internal Medicine Geriatric Medicine; ATTEND Internal Medicine Geriatric Medicine
PROC: 0T778DZ Dilation of Left Ureter with Intraluminal Device, Via Natural or Artificial Opening Endoscopic (ICD-10-PCS; principal; 2024-03-03 15:15)
PROC: 0TC78ZZ Extirpation of Matter from Left Ureter, Via Natural or Artificial Opening Endoscopic (ICD-10-PCS; 2024-03-03 15:15)
DX: N13.6 Pyonephrosis (principal); E87.1 Hypo-osmolality and hyponatremia; I13.0 Hypertensive heart and chronic kidney disease with heart failure and stage 1 through stage 4 chronic kidney disease, or unspecified chronic kidney disease; N20.2 Calculus of kidney with calculus of ureter; I50.32 Chronic diastolic (congestive) heart failure; I25.119 Atherosclerotic heart disease of native coronary artery with unspecified angina pectoris; N17.9 Acute kidney failure, unspecified; E11.649 Type 2 diabetes mellitus with hypoglycemia without coma; I25.5 Ischemic cardiomyopathy; T50.1X5A Adverse effect of loop [high-ceiling] diuretics, initial encounter; M1A.9XX0 Chronic gout, unspecified, without tophus (tophi); N18.32 Chronic kidney disease, stage 3b; E87.6 Hypokalemia; E78.5 Hyperlipidemia, unspecified; E11.22 Type 2 diabetes mellitus with diabetic chronic kidney disease; G89.29 Other chronic pain; Z87.440 Personal history of urinary (tract) infections; Z88.1 Allergy status to other antibiotic agents; Z88.2 Allergy status to sulfonamides; Z88.8 Allergy status to other drugs, medicaments and biological substances; E86.1 Hypovolemia; F32.A Depression, unspecified; F41.9 Anxiety disorder, unspecified; I25.2 Old myocardial infarction; J45.909 Unspecified asthma, uncomplicated; K21.9 Gastro-esophageal reflux disease without esophagitis; K59.00 Constipation, unspecified; Z79.84 Long term (current) use of oral hypoglycemic drugs; Z87.01 Personal history of pneumonia (recurrent); Z79.899 Other long term (current) drug therapy; Z86.74 Personal history of sudden cardiac arrest; Z87.442 Personal history of urinary calculi; Z95.1 Presence of aortocoronary bypass graft; Z95.2 Presence of prosthetic heart valve; Z95.810 Presence of automatic (implantable) cardiac defibrillator; X58.XXXA Exposure to other specified factors, initial encounter
CPT/HCPCS: 36415; 71046; 74176; 80048; 80053; 81001; 82365; 83605; 83690; 83735; 84484; 85025; 85027; 85610; 93005; 96360; 96361; 99285

== ENCOUNTER → 2024-08-24 | Outpatient (CLI) | payer MEDICARE ==
[2024-08-24 14:24] LABS: African American GFR (CKD) 30 (>60 ml/min/1.73 sqM); Blood Urea Nitrogen 39 mg/dL (7-17); Non-African American GFR(CKD) 26 (>60 ml/min/1.73 sqM)
--- NOTE | 2024-08-24 16:19 | CT ---
EXAMINATION TYPE: CT renal stones wo con CT DLP: 834 mGycm, Automated exposure control for dose reduction was used. DATE OF EXAM: 08/24/2024 2:49 PM COMPARISON: CT abdomen pelvis 02/22/2024, 01/27/2018 CLINICAL INDICATION:Female, 73 years old with history of N13.30 UNSPECIFIED HYDRONEPHROSIS; hydroneph rosis TECHNIQUE: Renal stone protocol CT of the abdomen and pelvis without IV or oral contrast. Lack of IV or oral contrast limits evaluation of solid and hollow organ viscera. Coronal and sagittal reformats were performed. FINDINGS: LOWER CHEST: Lung bases are clear. Partial visualization of a lead within the right atrium. Coronary artery calcifications. Mild cardiomegaly. ABDOMEN LIVER: Unremarkable noncontrast appearance GALLBLADDER AND BILE DUCTS: Layering increased densities within the lumen consistent with gallstones are present. No biliary duct dilatation. PANCREAS: Unremarkable noncontrast appearance SPLEEN: Unremarkable noncontrast appearance ADRENAL GLANDS: Unremarkable noncontrast appearance. KIDNEYS AND URETERS: No evidence of right-sided hydronephrosis or renal calculi. No right-sided hydro ureter. Mild to moderate left-sided hydronephrosis with a 1 cm calculus within the renal pelvis. Esteban tional nonobstructive right renal calculi measuring 7 and 5 mm within the lower pole. No hydroureter. PELVIS BLADDER: Unremarkable noncontrast appearance REPRODUCTIVE: Unremarkable noncontrast appearance ABDOMEN & PELVIS STOMACH AND BOWEL: Small hiatal hernia, duodenum is unremarkable. Mild colonic stool burden. No focal bowel wall thickening or surrounding inflammatory changes. The appendix is not identified. No eviden ce of bowel obstruction. PERITONEUM: No evidence of pneumoperitoneum or free fluid. VASCULATURE: Moderate atherosclerotic calcifications are present throughout the abdominal aorta and i ts branches. No evidence of aortic aneurysm. MUSCULOSKELETAL: No acute osseous abnormalities. Postsurgical changes of the bilateral iliac bones fr om bone harvesting. Bilateral SI joint arthropathy. Postsurgical changes from posterior lumbar fusion from L4 through S1 with laminectomy. Moderate multilevel degenerative disease. Grade 1 anterolisthes is of L3 on L4. LYMPH NODES: No gross evidence for lymphadenopathy. SOFT TISSUE/ABDOMINAL WALL: Mild diffuse anasarca. IMPRESSION: 1. Mild to moderate left hydronephrosis with an obstructive 1 cm calculus in the renal pelvis. Addit ional nonobstructive left renal calculi. 2. Cholelithiasis. [facility], , 08/24/2024 4:16 PM
== END | disposition home or self-care (01) ==
LOC: RADCTMAIN 13:42
PROVIDERS: ATTEND Urology
DX: N13.2 Hydronephrosis with renal and ureteral calculous obstruction (principal); K80.20 Calculus of gallbladder without cholecystitis without obstruction; R60.1 Generalized edema; I70.0 Atherosclerosis of aorta
CPT/HCPCS: 74150; 82565; 84520

== ENCOUNTER 2024-10-18 13:18 | Observation (INO) | payer MEDICARE ==
[2024-10-18 13:50] LABS: Basophils % (A) 0 %; Eosinophils # (A) 0.3 k/uL (0-0.7); Eosinophils % (A) 4 %; HCT 44.5 % (34.0-46.0); HGB 14.3 gm/dL (11.4-16.0); Lymphocytes # (A) 1.7 k/uL (1.0-4.8); Lymphocytes % (A) 23 %; MCH 31.1 pg (25.0-35.0); MCHC 32.1 g/dL (31.0-37.0); MCV 96.9 fL (80.0-100.0); Mean Platelet Volume 8.2; Monocytes # (A) 0.3 k/uL (0-1.0); Monocytes % (A) 4 %; Neutrophils % (A) 68 %; Platelet Count 187 k/uL (150-450); RBC 4.59 m/uL (3.80-5.40); RDW 14.5 % (11.5-15.5); WBC 7.4 k/uL (3.8-10.6)
[2024-10-18 13:58] LABS: ALT 15 U/L (4-34); AST 18 U/L (14-36); African American GFR (CKD) 20 (>60 ml/min/1.73 sqM); Albumin 4.2 g/dL (3.5-5.0); Alkaline Phosphatase 135 U/L (38-126); Anion Gap 13 mmol/L; Blood Urea Nitrogen 58 mg/dL (7-17); Calcium 10.3 mg/dL (8.4-10.2); Carbon Dioxide 22 mmol/L (22-30); Chloride 99 mmol/L (98-107); Glucose 197 mg/dL (74-99); Lipase 78 U/L (23-300); Non-African American GFR(CKD) 17 (>60 ml/min/1.73 sqM); Potassium 4.3 mmol/L (3.5-5.1); Sodium 134 mmol/L (137-145); Total Bilirubin 0.8 mg/dL (0.2-1.3); Total Protein 6.7 g/dL (6.3-8.2)
--- NOTE | 2024-10-18 13:59 | XR ---
EXAMINATION TYPE: XR chest 2V DATE OF EXAM: 10/18/2024 1:53 PM COMPARISON: Chest radiographs from 03/01/2024 TECHNIQUE: XR chest 2V Frontal and lateral views of the chest. CLINICAL INDICATION:Female, 74 years old with history of Chest Pain; FINDINGS: Lungs/Pleura: There is no evidence of pleural effusion, focal consolidation, or pneumothorax. Pulmonary vascularity: Unremarkable. Heart/mediastinum: Cardiomediastinal silhouette is prominent in size. Atherosclerotic calcifications are seen in the aorta. Single-lead cardiac conduction device overlying the left hemithorax with lead projecting over the right ventricle. Musculoskeletal: Multiple level degenerative disc disease changes seen throughout the spine. Midline sternotomy wires are noted and stable. Right shoulder arthroplasty changes. IMPRESSION: Chronic changes without acute pulmonary process. No significant change from prior. [facility], , 10/18/2024 1:56 PM
[2024-10-18 14:07] LABS: NT-Pro-B-Type Natriuretic Pept 3760 pg/mL
[2024-10-18 14:08] LABS: INR 0.9 (<1.2); Partial Thromboplastin Time 22.2 sec (22.0-30.0); Prothrombin Time 10.1 sec (10.0-12.5)
--- NOTE | 2024-10-18 14:31 | ED ---
Chest Pain HPI - General Chief Complaint: Chest Pain Stated Complaint: Chest pain Time Seen by Provider: 10/18/24 13:24 Source: patient Mode of arrival: ambulatory Limitations: no limitations - History of Present Illness Initial Comments: 4-year-old female with past medical history of coronary artery disease status post bypass, cardiac arrest with ICD and pacemaker who presents emergency department with chest pain. States that the pain has been going on for the past 2 weeks. She has taken nitro intermittently for her symptoms and states that each time it does take the pain away. Pain is described as a pressure sensation in her chest and jaw. Denies associated shortness of breath. No fevers or chills. No calf pain or swelling. Patient follows with Dr. Christine that she has routine testing on her heart due to her significant history. She denies any nausea or vomiting. No numbness, tingling or weakness in her extremities. No o ther alleviating, precipitating modifying factors - Related Data Home Medications Medication Instructions Recorded Confirmed Famotidine [Pepcid] 20 mg PO DAILY 06/20/16 10/18/24 Montelukast [Singulair] 10 mg PO HS 06/20/16 10/18/24 allopurinoL [Zyloprim] 300 mg PO DAILY 06/20/16 10/18/24 Isosorbide Mononitrate ER [Imdur] 30 mg PO DAILY 10/03/16 10/18/24 Losartan [Cozaar] 12.5 mg PO DAILY 11/01/16 10/18/24 Spironolactone [Aldactone] 12.5 mg PO DAILY 06/25/19 10/18/24 Evolocumab [Repatha Syringe] 140 mg SQ Q14D 10/05/19 10/18/24 Furosemide [Lasix] 40 mg PO DAILY 05/25/21 10/18/24 Insulin Glargine,Hum.rec.anlog 10 units SQ BID 02/21/23 10/18/24 [Lantus Solostar Pen] Insulin Lispro [humaLOG Kwikpen] See Protocol SQ TID-W/MEALS 02/21/23 10/18/24 Ranolazine [Ranexa] 500 mg PO BID 02/21/23 10/18/24 Aspirin EC [Ecotrin Low Dose] 81 mg PO DAILY 03/02/24 10/18/24 FLUoxetine HCL [PROzac] 20 mg PO DAILY 03/02/24 10/18/24 Nystatin 100,000 Unit/gm Powd 1 applic TOPICAL BID 10/18/24 10/18/24 [Mycostatin Powder] Allergies Allergy/AdvReac Type Severity Reaction Status Date / Time amoxicillin [From Augmentin] Allergy Anaphylaxis Verified 10/18/24 14:51 /rash/hives cefprozil [From Cefzil] Allergy Anaphylaxis Verified 10/18/24 14:51 /rash/hives clavulanic acid Allergy Anaphylaxis Verified 10/18/24 14:51 [From Augmentin] /rash/hives sulfamethoxazole Allergy Anaphylaxis Verified 10/18/24 14:51 [From Bactrim] /rash/hives trimethoprim [From Bactrim] Allergy Anaphylaxis Verified 10/18/24 14:51 /rash/hives Review of Systems ROS Statement: Those systems with pertinent positive or pertinent negative responses have been documented in the HPI. ROS Other: All systems not noted in ROS Statement are negative. Past Medical History Past Medical History: Asthma, Coronary Artery Disease (CAD), Chest Pain / Angina, Heart Failure, Diabetes Mellitus, GERD/Reflux, Hyperlipidemia, Hypertension, Myocardial Infarction (MA), Osteoarthritis (OA), Pneumonia, Renal Disease, Syncope Additional Past Medical History / Comment(s): [place] 1997, 2004, 2007, CARDIAC ARREST 2016,GOUT, SPINAL STENOSIS, BRONCHITIS, CONSTIPATION, HX OF DIZZINESS & FALLS, AORTIC STENOSIS, KIDNEY FAILURE STAGE 3-B, PACER/AICD, Fatigue, very SOB w/exertion recently. Aortic Valve Replacement Dec, 2019. 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 Date of Last Stent Placement:: UNKNOWN Type of Cardiac Device: AICD Device Placement Date:: 10-05-16 [facility] Past Psychological History: Anxiety, Depression Smoking Status: Never smoker Past Alcohol Use History: Occasional Past Drug Use History: None Reported - Past Family History Mother Family Medical History: No Reported History Additional Family Medical History / Comment(s): . General Exam Limitations: no limitations General appearance: alert, in no apparent distress Head exam: Present: atraumatic, normocephalic, normal inspection Eye exam: Present: normal appearance, PERRL, EOMI. Absent: scleral icterus, conjunctival injection, periorbital swelling ENT exam: Present: normal exam, mucous membranes moist Neck exam: Present: normal inspection. Absent: tenderness, meningismus, lymphadenopathy Respiratory exam: Present: normal lung sounds bilaterally. Absent: respiratory distress, wheezes, rales, rhonchi, stridor Cardiovascular Exam: Present: regular rate, normal rhythm, normal heart sounds. Absent: systolic murmur, diastolic murmur, rubs, gallop, clicks GI/Abdominal exam: Present: soft, normal bowel sounds. Absent: distended, tenderness, guarding, rebound, rigid Extremities exam: Present: normal inspection, full ROM, normal capillary refill. Absent: tenderness, pedal edema, joint swelling, calf tenderness Back exam: Present: normal inspection Neurological exam: Present: alert, oriented X3, CN II-XII intact Psychiatric exam: Present: normal affect, normal mood Skin exam: Present: warm, dry, intact, normal color. Absent: rash Course Vital Signs 10/18/24 10/18/24 10/18/24 13:19 14:07 18:49 Temperature 97.8 F 97.9 F Pulse Rate 64 62 57 L Respiratory 20 16 18 Rate Blood Pressure 133/63 125/73 116/59 O2 Sat by Pulse 98 95 98 Oximetry 10/18/24 20:50 Temperature 98.1 F Pulse Rate 57 L Respiratory 18 Rate Blood Pressure 138/83 O2 Sat by Pulse 99 Oximetry Chest Pain MDM - MDM Was pt. sent in by a medical professional or institution ([facility]vin, [employer], urgent care, hospital, or skilled nursing...) When possible be specific @ -No Did you speak to anyone other than the patient for history (EMS, parent, family, police, friend...)? What history was obtained from this source @ -No Did you review nursing and triage notes (agree or disagree)? Why? @ -I reviewed and agree with nursing and triage notes Were old charts reviewed (outside hosp., previous admission, EMS record, old EKG, old radiological studies, urgent care reports/EKG's, skilled nursing records)? Report findings @ -No old charts were reviewed Differential Diagnosis (chest pain, altered mental status, abdominal pain women, abdominal pain men, vaginal bleeding, weakness, fever, dyspnea, syncope, headache, dizziness, GI bleed, back pain, seizure, CVA, palpatations, mental health, musculoskeletal)? @ -Differential Chest Pain: Stable Angina, Unstable Angina, STEMI, NSTEMI Aortic Dissection, Pneumothorax, Musculoskeletal, Esophageal Spasm GERD, Cholecystitis, Pancreatitis, Zoster, this is not meant to be an all-inclusive list. EKG interpreted by me (3pts min.). @ -EKG done at 1328 demonstrates sinus bradycardia with a rate of 59. WY interval 187. QRS 116. QTc of 465. No acute ST segment elevations or depressions Repeat EKG done at 1525 1 patient is having active chest pain demonstrates sinus bradycardia with a rate of 55. WY interval 183. QRS 108. QTc of 450. Morphology remains the same with no ST segment elevation X-rays interpreted by me (1pt min.). @ -Yes and demonstrates no acute process CT interpreted by me (1pt min.). @ -None done U/S interpreted by me (1pt. min.). @ -Yes which demonstrates left-sided hydronephrosis with a pelvic calculi What testing was considered but not performed or refused? (CT, X-rays, U/S, labs)? Why? @ -None What meds were considered but not given or refused? Why? @ -None Did you discuss the management of the patient with other professionals (professionals i.e. DrYeimy, PA, [employer], lab, RT, psych nurse, social media marketing manager, teacher advisor, teacher, chief juvenile probation officer, case management social worker)? Give summary @ -Spoke with Dr. Tino Lopez for the admission Was smoking cessation discussed for >3mins.? @ -No Was critical care preformed (if so, how long)? @ -No Were there social determinants of health that impacted care today? How? (Homelessness, low income, unemployed, alcoholism, drug addiction, transportation, low edu. Level, literacy, decrease access to med. care, [facility], rehab)? @ -No Was there de-escalation of care discussed even if they declined (Discuss DNR or withdrawal of care, Hospice)? DNR status @ -No What co-morbidities impacted this encounter? (DM, HTN, Smoking, COPD, CAD, Ca ncer, CVA, ARF, Chemo, Hep., AIDS, mental health diagnosis, sleep apnea, morbid obesity)? @ -Coronary artery disease Was patient admitted / discharged? Hospital course, mention meds given and route, prescriptions, significant lab abnormalities, going to OR and other pertinent info. @ -Upon arrival patient seen and evaluated in bed 9. Thorough history and physical exam was performed. Twelve-lead EKG is obtained. Laboratory studies are conducted. Chest x-ray was performed. Patient was given 4 chewable aspirins. Laboratory study results are discussed with patient. I did recommend admission due to her advanced cardiac history for which patient was agreeable. Spoke with Dr. Lopez for the admission. I will hold the patient's diuretics and place nephrology and cardiology on consult Undiagnosed new problem with uncertain prognosis? @ -No Drug Therapy requiring intensive monitoring for toxicity (Heparin, Nitro, Insulin, Cardizem)? @ -No Were any procedures done? @ -No Diagnosis/symptom? @ -Acute chest pain, history of atherosclerotic coronary artery disease, WENDY Acute, or Chronic, or Acute on Chronic? @ -Acute on chronic Uncomplicated (without systemic symptoms) or Complicated (systemic symptoms)? @ -Complicated Side effects of treatment? @ -No Exacerbation, Progression, or Severe Exacerbation? @ -No Poses a threat to life or bodily function? How? (Chest pain, [place], MA, pneumonia, PE, COPD, DKA, ARF, appy, cholecystitis, CVA, Diverticulitis, Homicidal, Suicidal, threat to staff... and all critical care pts) @ -No Disposition Clinical Impression: Chest pain, WENDY (acute kidney injury) Disposition: ADMITTED IP TO THIS [facility] Condition: Stable Is patient prescribed a controlled substance at d/c from ED?: No Time of Disposition: 14:33 Decision to Admit Reason: Admit from EC Decision Date: 10/18/24 Decision Time: 14:33
[2024-10-18] MEDS ORDERED: NALOXONE 0.4 MG/ML 1 ML VIAL IV PRN (14:44)
[2024-10-18] MEDS: ASPIRIN 81 MG PO STA (15:56)
[2024-10-18] MEDS: NITROGLYCERIN OINT 1 INCH/GM PACKET TOPICAL STA (15:56)
[2024-10-18] MEDS: SODIUM CHLORIDE 0.9% 1,000 ML IV SCH (15:57)
--- NOTE | 2024-10-18 16:08 | US ---
EXAMINATION TYPE: US renals and bladder DATE OF EXAM: 10/18/2024 COMPARISON: NONE CLINICAL INDICATION: Female, 74 years old with history of wendy, hx stones; WENDY, history of stones TECHNIQUE: Grayscale imaging of the bilateral kidneys and urinary bladder: FINDINGS: EXAM MEASUREMENTS: Right Kidney: 9.6 x 4.9 x 4.4 cm Left Kidney: 9.9 x 4.7 x 3.9 cm *Limitations due to overlying bowel gas Right Kidney: lobulated Left Kidney: limited evaluation. moderate/severe hydronephrosis. ?possible stone = 1.3cm Bladder: appears wnl Bilateral Jets seen: no No masses are identified. The urinary bladder is anechoic. IMPRESSION: Left-sided hydronephrosis with a 1.3 cm renal pelvis calculus noted. [facility], , 10/18/2024 4:05 PM
[2024-10-18 16:12] LABS: Appearance,Urine Clear (Clear); Bilirubin,Urine Negative (Negative); Blood,Urine Negative (Negative); Color,Urine Colorless; Glucose,Urine (UA) Negative (Negative); Ketones,Urine Negative (Negative); Leukocyte Esterase,Urine Negative (Negative); Nitrite,Urine Negative (Negative); PH, Urine 5.5 (5.0-8.0); Protein,Urine Negative (Negative); Specific Gravity,Urine 1.008 (1.001-1.035); Urobilinogen,Urine <2.0 mg/dL (<2.0)
[2024-10-18 21:23] LABS: Glucose,Whole Blood 263 mg/dL (70-110)
[2024-10-18] MEDS: MONTELUKAST 10 MG TAB PO SCH (21:25)
[2024-10-18] MEDS: RANOLAZINE 500 MG TAB.ER.12H PO SCH (21:25)
[2024-10-18] MEDS: INSULIN GLARGINE (LANTUS) 100 UNIT/ML SYR SQ SCH (21:26)
[2024-10-18] MEDS ORDERED: TEMAZEPAM 15 MG CAP PO PRN (21:42)
--- NOTE | 2024-10-18 23:08 | HP ---
HISTORY AND PHYSICAL CHIEF COMPLAINT: Chest pain. HISTORY OF PRESENT ILLNESS: This 74-year-old woman with a past medical history with an extensive cardiac history is complaining of chest pain, which is felt in the anterior part of chest and which is relieved by nitro. The pain was pressure type of sensation, radiating to the jaw also. The patient came to [facility] and admitted for further evaluation and treatment. The EKG showed non-progression of R-waves. Otherwise, the troponin is found to be negative. Creatinine was found to be 2.68 and it is slightly worsened at this time. There is no history of any fever, rigors, or chills at this time. PAST MEDICAL HISTORY: Reviewed and includes cardiac arrest, CAD, and CABG. Rest of the history and rest of the chart is also reviewed. HOME MEDICATIONS: Reviewed and include Aldactone. Dose and rest of medication is reviewed. ALLERGIES: Reviewed and include Augmentin. FAMILY HISTORY: There is no history of heart disease or strokes in the family. SOCIAL HISTORY: No history of smoking or alcohol. REVIEW OF SYSTEMS: Fourteen-point review of systems negative except as mentioned earlier. PHYSICAL EXAMINATION: VITAL SIGNS: Pulse is 60, blood pressure 138/63, respirations 18. HEENT: Conjunctivae are normal. NECK: No JVD. CARDIOVASCULAR: S1, S2. RESPIRATIONS: Breath sounds diminished at the bases. No rhonchi. No crackles. ABDOMEN: Soft and nontender. LEGS: No edema. NERVOUS SYSTEM: Nonfocal. SKIN: No ulcer, rash, bleeding. JOINTS: No active deforming arthropathy. LABORATORY DATA: Reviewed. ASSESSMENT: 1. Chest pain with possible unstable angina. 2. Acute on chronic renal failure. 3. History of asthma. 4. Diabetes mellitus type 2. 5. Hypertension. 6. Hyperlipidemia. 7. History of degenerative joint disease. 8. History of cardiac arrest in 2017. 9. History of gout. RECOMMENDATIONS AND DISCUSSION: In this, a 74-year-old woman presented with multiple medical problems. At this time, I would recommend to continue with current with cardiology consultation for unstable angina protocol. Otherwise, prognosis is guarded because of the multiple complex medical issues. Further recommendations to follow. Please see orders for further details. MMODL / IJN: [id number] /
[2024-10-19] MEDS: ALPRAZolam 0.25 MG TAB PO PRN (00:14)
[2024-10-19 05:38] LABS: Glucose,Whole Blood 139 mg/dL (70-110)
[2024-10-19] MEDS ORDERED: ISOSORBIDE MONONITRATE ER 30 MG TAB.ER.24H PO SCH (09:00)
[2024-10-19 09:23] LABS: Basophils # (A) 0.03 X 10*3/uL (0.00-0.10); Basophils % (A) 0.5 %; Eosinophils # (A) 0.27 X 10*3/uL (0.04-0.35); Eosinophils % (A) 4.2 %; HCT 37.8 % (37.2-46.3); HGB 12.2 g/dL (12.0-15.0); Lymphocytes # (A) 2.55 X 10*3/uL (0.90-5.00); Lymphocytes % (A) 39.2 %; MCH 30.7 pg (27.0-32.0); MCHC 32.3 g/dL (32.0-37.0); Monocytes # (A) 0.56 X 10*3/uL (0.20-1.00); Monocytes % (A) 8.6 %; NRBC Per 100 WBC 0 X 10*3/uL (0.00-0.01); Neutrophils # (A) 3.06 X 10*3/uL (1.80-7.70); Platelet Count 147 X 10*3/uL (140-440); RBC 3.98 X 10*6/uL (4.10-5.20); RDW 13.9 % (11.5-14.5)
[2024-10-19] MEDS: FLUoxetine HCL 20 MG CAP PO SCH (10:01)
[2024-10-19] MEDS: FUROSEMIDE 40 MG TAB PO SCH (10:01)
[2024-10-19] MEDS: ASPIRIN 81 MG PO SCH (10:01)
[2024-10-19] MEDS: FAMOTIDINE 20 MG TAB PO SCH (10:01)
[2024-10-19] MEDS: carvediloL 12.5 MG TAB PO SCH (10:01)
[2024-10-19] MEDS: allopurinoL 300 MG TAB PO SCH ×2 (10:01→20:14)
--- NOTE | 2024-10-19 10:17 | P.CRDCN ---
History of Present Illness Consult date: 10/19/24 History of present illness: - . HPI: This lady is here with discomfort in the right lateral aspect of her chest and abdomen. She also has some discomfort in the jaw area. These symptoms occur very randomly. Specifically physical activity does not bring the symptoms. She also has renal stones and apparently had a lithotripsy details are unavailable. She has history of ischemic cardiomyopathy prior bypass surgery in 2012 and a percutaneous aortic valve implant probably in 2017 at outside hospital. Her last echo from April 14, 2024 in the office revealed ejection fraction of 37%. She has a stable aortic valve prosthesis. She has what appears to be stable CAD without any clear-cut symptoms of angina. Her renal function has worsened creatinine is about 2.68. She has renal stones and renal ultrasound suggested the same. She saw urology here in [place] but was unhappy and she is seeing a urologist in the [place] area. At the time of my evaluation she is asymptomatic resting comfortably has no chest pain shortness of breath or palpitations. Her troponins are unremarkable EKG revealed sinus mechanism with poor R wave progression no acute changes.. RELEVANT PAST MEDICAL HISTORY: History of CAD with a prior bypass surgery and ICD. Ejection fraction is in the 35% range. He also has history of percutaneous aortic valve implant. Renal stones with previous lithotripsy. She has a diabetes with CKD creatinine here is 2.68.. MEDICATIONS: Aldactone 12.5 mg daily Ranexa 500 mg twice daily losartan 12.5 mg daily Jardiance 10 mg every other day, insulin Lasix Pepcid Prozac Repatha injections ALLERGIES: Please see the chart multiple agents sulfa Bactrim clavulanic acid amoxicillin. REVIEW OF SYSTEMS: Remarkable for some right lateral abdominal and chest pain occasional jaw pain no hematemesis melena or genitourinary symptoms at this time. She has known renal stones. PHYSICIAL EXAM: Vitals are stable no JVD S1-S2 heard normally short systolic murmur at the base second heart sound is preserved lungs reveal decent air entry abdomen is soft lower extremities reveal no edema diminished pulses Central nervous system grossly within normal limits. IMPRESSION: 1. Atypical chest pain. 2. Stable ischemic heart disease with prior bypass surgery and percutaneous aortic implant stable CHF chronic. 3. Type 2 diabetes with chronic kidney disease GFR in the range of 18 creatinine 2.68. 4. Renal stones under the care of urologist outside hospital was not happy with urologist here. 5. Obesity. RECOMMENDATIONS: Based on her clinical presentation I am suggesting we will discontinue Aldactone since creatinine is 2.68 increase the Imdur from 30 to 60 mg daily and the carvedilol will be 12.5 mg in the morning and 6.25 mg in the e vening. We can increase activity discharge her and have her follow-up with her urologist in the [place] area. I would not recommend any coronary angiogram. Her pain is atypical troponins are normal creatinine is 2.68. We will continue medical therapy with risk factor modification and have her follow-up with her urologist as an outpatient and Dr. Christine upon discharge in 2 weeks. Discussed my thoughts in detail with the patient. Past Medical History Past Medical History: Asthma, Coronary Artery Disease (CAD), Chest Pain / Angina, Heart Failure, Diabetes Mellitus, GERD/Reflux, Hyperlipidemia, Hypertension, Myocardial Infarction ([place]), Osteoarthritis (OA), Pneumonia, Renal Disease, Syncope Additional Past Medical History / Comment(s): [place] 1997, 2003, 2007, CARDIAC ARREST 2016,GOUT, SPINAL STENOSIS, BRONCHITIS, CONSTIPATION, HX OF DIZZINESS & FALLS, AORTIC STENOSIS, KIDNEY FAILURE STAGE 3-B, PACER/AICD, Fatigue, very SOB w/exertion. Aortic Valve Replacement Dec, 2019. Last Myocardial Infarction Date:: 2007 History of Any Multi-Drug Resistant Organisms: None Reported Past Surgical History: AICD, Appendectomy, Back Surgery, Section, Co ronary Bypass/CABG, Heart Catheterization With Stent, Joint Replacement, Orthopedic Surgery, Pacemaker Additional Past Surgical History / Comment(s): ANGELIC 08/18/19, TOTAL RIGHT SHOULDER, BACK SURGERY X2, QUAD CABG-"DIAPHRAGM PARALIZED AFTER SX HAD TO GO TO PULMONARY REHAB, 7 HEART CATHS-MULTIPLE STENTS 3 C-SECTIONS, OVARIAN CYST(RT) Past Anesthesia/Blood Transfusion Reactions: No Reported Reaction Additional Past Anesthesia/Blood Transfusion Reaction / Comment(s): HX BLOOD TRANSFUSION - NO REACTION. Date of Last Stent Placement:: UNKNOWN Type of Cardiac Device: AICD Device Placement Date:: 10-05-16 [facility] [employer] Past Psychological History: Anxiety, Depression Additional Psychological History / Comment(s): . Smoking Status: Never smoker Past Alcohol Use History: Occasional Past Drug Use History: None Reported - Past Family History Mother Family Medical History: No Reported History Additional Family Medical History / Comment(s): . Medications and Allergies Home Medications Medication Instructions Recorded Confirmed Type Famotidine [Pepcid] 20 mg PO DAILY 06/20/16 10/18/24 History Montelukast [Singulair] 10 mg PO HS 06/20/16 10/18/24 History allopurinoL [Zyloprim] 300 mg PO DAILY 06/20/16 10/18/24 History Isosorbide Mononitrate ER [Imdur] 30 mg PO DAILY 10/03/16 10/18/24 History Losartan [Cozaar] 12.5 mg PO DAILY 11/01/16 10/18/24 History Spironolactone [Aldactone] 12.5 mg PO DAILY 06/25/19 10/18/24 History Evolocumab [Repatha Syringe] 140 mg SQ Q14D 10/05/19 10/18/24 History Furosemide [Lasix] 40 mg PO DAILY 05/25/21 10/18/24 History Insulin Glargine,Hum.rec.anlog 10 units SQ BID 02/21/23 10/18/24 History [Lantus Solostar Pen] Insulin Lispro [humaLOG Kwikpen] See Protocol SQ TID-W/MEALS 02/21/23 10/18/24 History Ranolazine [Ranexa] 500 mg PO BID 02/21/23 10/18/24 History Aspirin EC [Ecotrin Low Dose] 81 mg PO DAILY 03/02/24 10/18/24 History FLUoxetine HCL [PROzac] 20 mg PO DAILY 03/02/24 10/18/24 History Nystatin 100,000 Unit/gm Powd 1 applic TOPICAL BID 10/18/24 10/18/24 History [Mycostatin Powder] Allergies Allergy/AdvReac Type Severity Reaction Status Date / Time amoxicillin [From Augmentin] Allergy Anaphylaxis Verified 10/18/24 14:51 /rash/hives cefprozil [From Cefzil] Allergy Anaphylaxis Verified 10/18/24 14:51 /rash/hives clavulanic acid Allergy Anaphylaxis Verified 10/18/24 14:51 [From Augmentin] /rash/hives sulfamethoxazole Allergy Anaphylaxis Verified 10/18/24 14:51 [From Bactrim] /rash/hives trimethoprim [From Bactrim] Allergy Anaphylaxis Verified 10/18/24 14:51 /rash/hives Physical Exam Vitals: Vital Signs Temp Pulse Pulse Resp BP BP Pulse Ox 10/19/24 07:00 97.8 F 60 18 108/72 100 10/19/24 01:09 97.6 F 60 18 106/62 99 10/18/24 21:11 98 F 60 18 132/69 100 10/18/24 20:50 98.1 F 57 L 18 138/83 99 10/18/24 18:49 97.9 F 57 L 18 116/59 98 10/18/24 14:07 62 16 125/73 95 10/18/24 13:19 97.8 F 64 20 133/63 98 Intake and Output 10/18/24 10/19/24 10/19/24 22:59 06:59 14:59 Intake Total 591 Balance 591 Intake: Oral 591 Other: # Voids 1 3 # Bowel Movements 1 Weight 77.111 kg 79.7 kg Results 10/19/24 05:07 10/18/24 13:42 Cardiac Enzymes 10/18/24 10/18/24 10/18/24 Range/Units 13:42 13:42 17:32 AST 18 (14-36) U/L Troponin I <0.012 <0.012 (0.000-0.034) ng/mL 10/18/24 Range/Units 20:28 AST (14-36) U/L Troponin I <0.012 (0.000-0.034) ng/mL Coagulation 10/18/24 Range/Units 13:42 PT 10.1 (10.0-12.5) sec APTT 22.2 (22.0-30.0) sec CBC 10/18/24 10/19/24 Range/Units 13:42 05:07 WBC 7.4 6.50 (3.8-10.6) k/uL RBC 4.59 3.98 L (3.80-5.40) m/uL Hgb 14.3 12.2 (11.4-16.0) gm/dL Hct 44.5 37.8 (34.0-46.0) % Plt Count 187 147 (150-450) k/uL Comprehensive Metabolic Panel 10/18/24 Range/Units 13:42 Sodium 134 L (137-145) mmol/L Potassium 4.3 (3.5-5.1) mmol/L Chloride 99 (98-107) mmol/L Carbon Dioxide 22 (22-30) mmol/L BUN 58 H (7-17) mg/dL Creatinine 2.68 H (0.52-1.04) mg/dL Glucose 197 H (74-99) mg/dL Calcium 10.3 H (8.4-10.2) mg/dL AST 18 (14-36) U/L ALT 15 (4-34) U/L Alkaline Phosphatase 135 H (38-126) U/L Total Protein 6.7 (6.3-8.2) g/dL Albumin 4.2 (3.5-5.0) g/dL Current Medications Generic Name Dose Route Start Last Admin Trade Name Freq PRN Reason Stop Dose Admin Allopurinol 300 mg 10/19/24 21:00 Allopurinol 300 Mg Tab PO HS CORIE Alprazolam 0.25 mg 10/18/24 21:42 10/19/24 00:14 Alprazolam 0.25 Mg Tab PO 0.25 mg TID PRN Administration Anxiety Aspirin 81 mg 10/19/24 09:00 10/19/24 10:01 Aspirin 81 Mg PO 81 mg DAILY CORIE Administration Carvedilol 12.5 mg 10/19/24 09:00 10/19/24 10:01 Carvedilol 12.5 Mg Tab PO 12.5 mg DAILY CORIE Administration Carvedilol 6.25 mg 10/19/24 21:00 Carvedilol 6.25 Mg Tab PO HS CORIE Famotidine 20 mg 10/19/24 09:00 10/19/24 10:01 Famotidine 20 Mg Tab PO 20 mg DAILY CORIE Administration Fluoxetine HCl 20 mg 10/19/24 09:00 10/19/24 10:01 Fluoxetine Hcl 20 Mg Cap PO 20 mg DAILY CORIE Administration Furosemide 40 mg 10/19/24 09:00 10/19/24 10:01 Furosemide 40 Mg Tab PO 40 mg DAILY CORIE Administration Sodium Chloride 1,000 mls @ 100 mls/hr 10/18/24 15:15 10/19/24 03:57 Saline 0.9% IV 100 mls/hr .Q10H CORIE Administration Insulin Glargine 10 unit 10/18/24 21:00 10/18/24 21:26 Insulin Glargine (Lantus) 100 Unit/Ml Syr SQ 10 unit BID CORIE Administration Isosorbide Mononitrate 60 mg 10/19/24 12:00 Isosorbide Mononitrate Er 30 Mg Tab.Er.24h PO 1200 CORIE Montelukast Sodium 10 mg 10/18/24 21:00 10/18/24 21:25 Montelukast 10 Mg Tab PO 10 mg HS CORIE Administration Naloxone HCl 0.2 mg 10/18/24 14:44 Naloxone 0.4 Mg/Ml 1 Ml Vial IV Q2M PRN Opioid Reversal Ranolazine 500 mg 10/18/24 21:00 10/18/24 21:25 Ranolazine 500 Mg Tab.Er.12h PO 500 mg BID CORIE Administration Temazepam 15 mg 10/18/24 21:42 Temazepam 15 Mg Cap PO HS PRN Insomnia Intake and Output 10/18/24 10/19/24 10/19/24 22:59 06:59 14:59 Intake Total 591 Balance 591 Intake: Oral 591 Other: # Voids 1 3 # Bowel Movements 1 Weight 77.111 kg 79.7 kg 10/19/24 05:07 10/18/24 13:42
[2024-10-19 10:25] LABS: ALT 13 U/L (8-44); AST 18 U/L (13-35); Albumin 3.7 g/dL (3.8-4.9); Albumin/Globulin Ratio 1.95 Ratio (1.60-3.17); Alkaline Phosphatase 117 U/L (41-126); BUN/Creat Ratio 23.19 Ratio (12.00-20.00); Blood Urea Nitrogen 60.3 mg/dL (9.0-27.0); Calcium 9.6 mg/dL (8.7-10.3); Carbon Dioxide 20.1 mmol/L (21.6-31.8); Chloride 100 mmol/L (96-109); Globulin 1.9 g/dL (1.6-3.3); Glucose 157 mg/dL (70-110); Potassium 4.2 mmol/L (3.5-5.5); Sodium 131 mmol/L (135-145); Total Bilirubin 0.4 mg/dL (0.3-1.2); Total Protein 5.6 g/dL (6.2-8.2)
[2024-10-19] MEDS: ISOSORBIDE MONONITRATE ER 30 MG TAB.ER.24H PO SCH ×2 (11:06→12:41)
[2024-10-19] MEDS: carvediloL 3.125 MG TAB PO SCH (11:06)
[2024-10-19 11:48] LABS: Glucose,Whole Blood 161 mg/dL (70-110)
--- NOTE | 2024-10-19 14:50 | P.NPCON ---
History of Present Illness - Reason for Consult acute renal failure - History of Present Illness Patient is a 74-year-old female with history of coronary artery disease, status post coronary artery bypass surgery, underlying chronic kidney disease stage IIIb with baseline creatinine around 1.7 mg/dL. Patient also has history of nephrolithiasis and follows with urology out of town. She is admitted to the hospital with complaints of chest pain. Patient also has had chronic back pain. She has been evaluated by cardiology. Cardiac enzymes are not elevated. Serum creatinine 2.6 on admission and it remains at 2.6 today. Serum creatinine was 1.9 on 08/24/2024 and 1.49 on 03/04/2024. Ultrasound shows moderate to severe left hydronephrosis with stone. Blood pressure on the lower side today. No complaints of chest pains or shortness of breath. Past Medical History Past Medical History: Asthma, Coronary Artery Disease (CAD), Chest Pain / Angina, Heart Failure, Diabetes Mellitus, GERD/Reflux, Hyperlipidemia, Hypertension, Myocardial Infarction ([place]), Osteoarthritis (OA), Pneumonia, Renal Disease, Syncope Additional Past Medical History / Comment(s): [place] 1997, 2003, 2007, CARDIAC ARREST 2016,GOUT, SPINAL STENOSIS, BRONCHITIS, CONSTIPATION, HX OF DIZZINESS & FALLS, AORTIC STENOSIS, KIDNEY FAILURE STAGE 3-B, PACER/AICD, Fatigue, very SOB w/exertion. Aortic Valve Replacement Dec, 2019. 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 Date of Last Stent Placement:: UNKNOWN Type of Cardiac Device: AICD Device Placement Date:: 10-05-16 [facility] Sync[facility]ME Past Psychological History: Anxiety, Depression Additional Psychological History / Comment(s): . Smoking Status: Never smoker Past Alcohol Use History: Occasional Past Drug Use History: None Reported - Past Family History Mother Family Medical History: No Reported History Additional Family Medical History / Comment(s): . Medications and Allergies Home Medications Medication Instructions Recorded Confirmed Type Famotidine [Pepcid] 20 mg PO DAILY 06/20/16 10/18/24 History Montelukast [Singulair] 10 mg PO HS 06/20/16 10/18/24 History allopurinoL [Zyloprim] 300 mg PO DAILY 06/20/16 10/18/24 History Isosorbide Mononitrate ER [Imdur] 30 mg PO DAILY 10/03/16 10/18/24 History Losartan [Cozaar] 12.5 mg PO DAILY 11/01/16 10/18/24 History Spironolactone [Aldactone] 12.5 mg PO DAILY 06/25/19 10/18/24 History Evolocumab [Repatha Syringe] 140 mg SQ Q14D 10/05/19 10/18/24 History Furosemide [Lasix] 40 mg PO DAILY 05/25/21 10/18/24 History Insulin Glargine,Hum.rec.anlog 10 units SQ BID 02/21/23 10/18/24 History [Lantus Solostar Pen] Insulin Lispro [humaLOG Kwikpen] See Protocol SQ TID-W/MEALS 02/21/23 10/18/24 History Ranolazine [Ranexa] 500 mg PO BID 02/21/23 10/18/24 History Aspirin EC [Ecotrin Low Dose] 81 mg PO DAILY 03/02/24 10/18/24 History FLUoxetine HCL [PROzac] 20 mg PO DAILY 03/02/24 10/18/24 History Nystatin 100,000 Unit/gm Powd 1 applic TOPICAL BID 10/18/24 10/18/24 History [Mycostatin Powder] Allergies Allergy/AdvReac Type Severity Reaction Status Date / Time amoxicillin [From Augmentin] Allergy Anaphylaxis Verified 10/18/24 14:51 /rash/hives cefprozil [From Cefzil] Allergy Anaphylaxis Verified 10/18/24 14:51 /rash/hives clavulanic acid Allergy Anaphylaxis Verified 10/18/24 14:51 [From Augmentin] /rash/hives sulfamethoxazole Allergy Anaphylaxis Verified 10/18/24 14:51 [From Bactrim] /rash/hives trimethoprim [From Bactrim] Allergy Anaphylaxis Verified 10/18/24 14:51 /rash/hives Physical Exam Vitals: Vital Signs Temp Pulse Pulse Resp BP BP Pulse Ox 10/19/24 12:43 60 106/70 10/19/24 07:00 97.8 F 60 18 108/72 100 10/19/24 01:09 97.6 F 60 18 106/62 99 10/18/24 21:11 98 F 60 18 132/69 100 10/18/24 20:50 98.1 F 57 L 18 138/83 99 10/18/24 18:49 97.9 F 57 L 18 116/59 98 Intake and Output 10/18/24 10/19/24 10/19/24 22:59 06:59 14:59 Intake Total 591 Output Total 600 Balance 591 -600 Intake: Oral 591 Output: Urine 600 Other: # Voids 1 3 # Bowel Movements 1 Weight 77.111 kg 79.7 kg Patient is awake, comfortable, alert oriented x 3 Examination of the heart S1 and S2 Examination of the lungs shows bilateral breath sounds are heard Abdomen is soft nontender No left CVA tenderness noted Examination lower extremity shows no evidence of edema 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 Acute kidney injury, ATN as well as component of obstructive uropathy with left hydronephrosis from stone. Maintained on IV fluids. Blood pressure is borderline and angiotensin receptor blockers are currently on hold. UA is benign 2. Atypical chest pain with negative troponin 3. Chronic kidney disease stage IIIb with baseline creatinine around 1.4 to 1.7 mg/dL secondary to nephrosclerosis. UA is completely benign 4. Nephrolithiasis with left hydronephrosis and left renal stone, follows with urologist out of town Plan: Continue with IV fluids Hold Lasix Continue to hold losartan Repeat labs in a.m. Consult urology Thank you for the consultation. We will continue to follow the patient with you during her hospitalization
[2024-10-19] MEDS ORDERED: DEXTROSE 50% SYRINGE 50 ML IVP PRN ×2 (15:01)
[2024-10-19] MEDS: ACETAMINOPHEN TAB 325 MG TAB PO PRN (15:08)
[2024-10-19 17:32] LABS: Glucose,Whole Blood 222 mg/dL (70-110)
[2024-10-19] MEDS: INSULIN LISPRO (HumaLOG) 100 UNIT/ML 10 mL VL SQ SCH (18:00)
[2024-10-19] MEDS: NYSTATIN 100,000 UNIT/GM POWD 15 GM TOPICAL SCH (18:00)
[2024-10-19 20:14] LABS: Glucose,Whole Blood 153 mg/dL (70-110)
[2024-10-19] MEDS: carvediloL 6.25 MG TAB PO SCH (20:14)
[2024-10-20 05:54] LABS: Glucose,Whole Blood 117 mg/dL (70-110)
[2024-10-20] MEDS: INSULIN GLARGINE (LANTUS) 100 UNIT/ML SYR SQ SCH (05:54)
--- NOTE | 2024-10-20 07:43 | P.GSCN ---
History of Present Illness Consult date: 10/19/24 Reason for Consult: Left hydronephrosis Requesting physician: Minerva Avalos History of present illness: The patient is a 74-year-old woman who underwent ureteroscopic removal of a large left proximal ureteral calculus in February 2024. She experienced abdominal pain in August [address] scan imaging, revealing mild to moderate left hydronephrosis due to a 1 cm left renal pelvic calculus. Additional left renal calculi were seen. She was scheduled to undergo a left percutaneous nephrolithotomy by Dr. Brannon on September 15 but chose to seek a second opinion at [facility] ([facility]). She is now hospitalized and ultrasound shows moderate to severe left hydronephrosis. She is currently admitted with chest pain and reports left-sided abdominal and flank discomfort. Review of Systems - Cardiovascular Reports high blood pressure - Genitourinary Genitourinary: Reports flank pain, Reports kidney stones, Denies dysuria, Denies hematuria Past Medical History Past Medical History: Asthma, Coronary Artery Disease (CAD), Chest Pain / Angina, Heart Failure, Diabetes Mellitus, GERD/Reflux, Hyperlipidemia, Hypertension, Myocardial Infarction ([place]), Osteoarthritis (OA), Pneumonia, Renal Disease, Syncope Additional Past Medical History / Comment(s): [place] 1997, 2003, 2007, CARDIAC ARREST 2016,GOUT, SPINAL STENOSIS, BRONCHITIS, CONSTIPATION, HX OF DIZZINESS & FALLS, AORTIC STENOSIS, KIDNEY FAILURE STAGE 3-B, PACER/AICD, Fatigue, very SOB w/exertion recently. Aortic Valve Replacement Dec, 2019. 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 Date of Last Stent Placement:: UNKNOWN Type of Cardiac Device: AICD Device Placement Date:: 10-05-16 [facility] PAK Past Psychological History: Anxiety, Depression Smoking Status: Never smoker Past Alcohol Use History: Occasional Past Drug Use History: None Reported - Past Family History Mother Family Medical History: No Reported History Additional Family Medical History / Comment(s): . Medications and Allergies Home Medications Medication Instructions Recorded Confirmed Type Famotidine [Pepcid] 20 mg PO DAILY 06/20/16 10/18/24 History Montelukast [Singulair] 10 mg PO HS 06/20/16 10/18/24 History allopurinoL [Zyloprim] 300 mg PO DAILY 06/20/16 10/18/24 History Isosorbide Mononitrate ER [Imdur] 30 mg PO DAILY 10/03/16 10/18/24 History Losartan [Cozaar] 12.5 mg PO DAILY 11/01/16 10/18/24 History Spironolactone [Aldactone] 12.5 mg PO DAILY 06/25/19 10/18/24 History Evolocumab [Repatha Syringe] 140 mg SQ Q14D 10/05/19 10/18/24 History Furosemide [Lasix] 40 mg PO DAILY 05/25/21 10/18/24 History Insulin Glargine,Hum.rec.anlog 10 units SQ BID 02/21/23 10/18/24 History [Lantus Solostar Pen] Insulin Lispro [humaLOG Kwikpen] See Protocol SQ TID-W/MEALS 02/21/23 10/18/24 History Ranolazine [Ranexa] 500 mg PO BID 02/21/23 10/18/24 History Aspirin EC [Ecotrin Low Dose] 81 mg PO DAILY 03/02/24 10/18/24 History FLUoxetine HCL [PROzac] 20 mg PO DAILY 03/02/24 10/18/24 History Nystatin 100,000 Unit/gm Powd 1 applic TOPICAL BID 10/18/24 10/18/24 History [Mycostatin Powder] Allergies Allergy/AdvReac Type Severity Reaction Status Date / Time amoxicillin [From Augmentin] Allergy Anaphylaxis Verified 10/18/24 14:51 /rash/hives cefprozil [From Cefzil] Allergy Anaphylaxis Verified 10/18/24 14:51 /rash/hives clavulanic acid Allergy Anaphylaxis Verified 10/18/24 14:51 [From Augmentin] /rash/hives sulfamethoxazole Allergy Anaphylaxis Verified 10/18/24 14:51 [From Bactrim] /rash/hives trimethoprim [From Bactrim] Allergy Anaphylaxis Verified 10/18/24 14:51 /rash/hives Surgical - Exam Vital Signs Temp Pulse Resp BP Pulse Ox 97.8 F 64 20 133/63 98 10/18/24 13:19 10/18/24 13:19 10/18/24 13:19 10/18/24 13:19 10/18/24 13:19 - General well developed, well nourished, no distress - Respiratory normal respiratory effort - Abdomen Soft, non-distended. Mild left-sided tenderness, no guarding or rebound. - Psychiatric oriented to time, oriented to person, oriented to place, speech is normal, memory intact Results - Labs 10/19/24 05:07 10/19/24 05:07 Abnormal Lab Results - Last 24 Hours (Table) 10/19/24 10/19/24 10/19/24 Range/Units 05:07 05:07 11:47 RBC 3.98 L (4.10-5.20) X 10*6/uL Sodium 131 L (135-145) mmol/L Carbon Dioxide 20.1 L (21.6-31.8) mmol/L BUN 60.3 H (9.0-27.0) mg/dL Creatinine 2.6 H (0.6-1.5) mg/dL Est GFR (CKD-EPI) 19 L (>=60) BUN/Creatinine Ratio 23.19 H (12.00-20.00) Ratio Glucose 157 H (70-110) mg/dL POC Glucose (mg/dL) 161 H (70-110) mg/dL Total Protein 5.6 L (6.2-8.2) g/dL Albumin 3.7 L (3.8-4.9) g/dL 10/19/24 10/19/24 10/20/24 Range/Units 17:30 20:13 05:52 RBC (4.10-5.20) X 10*6/uL Sodium (135-145) mmol/L Carbon Dioxide (21.6-31.8) mmol/L BUN (9.0-27.0) mg/dL Creatinine (0.6-1.5) mg/dL Est GFR (CKD-EPI) (>=60) BUN/Creatinine Ratio (12.00-20.00) Ratio Glucose (70-110) mg/dL POC Glucose (mg/dL) 222 H 153 H 117 H (70-110) mg/dL Total Protein (6.2-8.2) g/dL Albumin (3.8-4.9) g/dL Diabetes panel 10/19/24 Range/Units 05:07 Sodium 131 L (135-145) mmol/L Potassium 4.2 (3.5-5.5) mmol/L Chloride 100 (96-109) mmol/L Carbon Dioxide 20.1 L (21.6-31.8) mmol/L BUN 60.3 H (9.0-27.0) mg/dL Creatinine 2.6 H (0.6-1.5) mg/dL Glucose 157 H (70-110) mg/dL Calcium 9.6 (8.7-10.3) mg/dL AST 18 (13-35) U/L ALT 13 (8-44) U/L Alkaline Phosphatase 117 (41-126) U/L Total Protein 5.6 L (6.2-8.2) g/dL Albumin 3.7 L (3.8-4.9) g/dL Calcium panel 10/19/24 Range/Units 05:07 Calcium 9.6 (8.7-10.3) mg/dL Albumin 3.7 L (3.8-4.9) g/dL Pituitary panel 10/19/24 Range/Units 05:07 Sodium 131 L (135-145) mmol/L Potassium 4.2 (3.5-5.5) mmol/L Chloride 100 (96-109) mmol/L Carbon Dioxide 20.1 L (21.6-31.8) mmol/L BUN 60.3 H (9.0-27.0) mg/dL Creatinine 2.6 H (0.6-1.5) mg/dL Glucose 157 H (70-110) mg/dL Calcium 9.6 (8.7-10.3) mg/dL Adrenal panel 10/19/24 Range/Units 05:07 Sodium 131 L (135-145) mmol/L Potassium 4.2 (3.5-5.5) mmol/L Chloride 100 (96-109) mmol/L Carbon Dioxide 20.1 L (21.6-31.8) mmol/L BUN 60.3 H (9.0-27.0) mg/dL Creatinine 2.6 H (0.6-1.5) mg/dL Glucose 157 H (70-110) mg/dL Calcium 9.6 (8.7-10.3) mg/dL Total Bilirubin 0.4 (0.3-1.2) mg/dL AST 18 (13-35) U/L ALT 13 (8-44) U/L Alkaline Phosphatase 117 (41-126) U/L Total Protein 5.6 L (6.2-8.2) g/dL Albumin 3.7 L (3.8-4.9) g/dL - Imaging CT scan - abdomen: report reviewed, image reviewed US - kidney/bladder: report reviewed Assessment and Plan (1) Hydronephrosis with renal and ureteral calculous obstruction Current Visit: Yes Status: Acute Code(s): N13.2 - HYDRONEPHROSIS WITH RENAL AND URETERAL CALCULOUS OBSTRUCTION SNOMED Code(s): 183463534 Plan: I have advised the patient to undergo cystoscopy, left retrograde pyelogram, left ureteral stent insertion on 10/20/2024 to relieve her ureteral obstruction and optimize renal function. The rationale for this was discussed with her in detail, and she was made aware of potential risks, which include anesthesia, bleeding, infection, ureteral injury, and inability to successfully place a stent. She can then decide whether she wishes to undergo removal of her calculi locally or at [facility]. Time with Patient: Greater than 30
--- NOTE | 2024-10-20 08:56 | P.PN ---
Subjective Progress Note Date: 10/19/24 This is a pleasant 74-year-old female who initially presented to the ER with chest pain in the anterior part of her chest that reports was relieved by nitro. Cardiology following making adjustments to medications recommending outpatient follow-up. Nephrology following as well for acute on chronic kidney disease with WENDY having worsening kidney functions with a creatinine of 2.68. Renal ultrasound is ordered and pending at this time. Patient reports of generalized weakness and recommend increase activity as tolerated with sitting up in the chair more frequently. Patient is maintained on gentle IV hydration. Review of systems: Constitutional: No reports of fatigue, fever, or chills Cardiovascular: No reports of chest pain or palpitations Respiratory: No reports of shortness of breath or cough GI: No reports of nausea, no reports of vomiting, no diarrhea : No reports of dysuria or retention Neurovascular: reports of generalized weakness All medications have been reviewed PHYSICAL EXAMINATION: GENERAL: The patient is alert and oriented x4, Well developed, obese HEENT: Pupils are round and equally reacting to light. EOMI. no scleral icterus. No conjunctival pallor. Normocephalic, atraumatic. No pharyngeal erythema. No thyromegaly. CARDIOVASCULAR: S1 and S2 muffled PULMONARY: diminished breath sounds bilaterally with no wheezing or rhonchi noted. ABDOMEN: soft. Nontender on exam. obese. non-distended, normoactive bowel sounds. No palpable organomegaly. MUSCULOSKELETAL: No joint swelling or deformity. EXTREMITIES: No cyanosis, clubbing, or pedal edema. NEUROLOGICAL: Gross neurological examination did not reveal any focal deficits. Diffuse weakness SKIN: No rashes. Assessment: Chest pain, possible unstable angina, ACS ruled out Acute on chronic renal failure with worsening kidney functions, creatinine 2.68 today History of asthma, not in exacerbation Diabetes mellitus, type II Hypertension history Hyperlipidemia History of degenerative joint disease History of cardiac arrest in 2017 History of gout Obesity with a BMI 37.6 GI prophylaxis DVT prophylaxis Full code Plan: Recommend to continue with current medications and management with cardiology and nephrology following. Kidney functions worsening with a creatinine of 2.68 with acute on chronic kidney maintained on gentle hydration. Cardiology making adjustments to medications recommending outpatient follow-up Nephrology has consulted urology as there was concerned of worsening kidney fun ctions and renal ultrasound ordered and pending Continue gentle hydration and follow-up on repeat labs Encouraged increase activity as tolerated Overall prognosis is guarded The impression and plan of care has been dictated by Cassidy Blevins, nurse practitioner as directed. Dr. Marv MD I have performed a history and examination and MDM of this patient, discussed the same with the dictator, and agree with the dictator's assessment and plan as written ,documented as a scribe. Based on total visit time, I have performed more than 50% of the visit. Any additional findings or plans will be noted. Objective - Vital Signs Vital signs: Vital Signs Temp 97.8 F 10/19/24 07:00 Pulse 60 10/19/24 07:00 Resp 18 10/19/24 07:00 BP 108/72 10/19/24 07:00 Pulse Ox 100 10/19/24 07:00 FiO2 Intake & Output 10/18/24 10/19/24 10/19/24 18:59 06:59 18:59 Intake Total 591 Balance 591 Weight 77.111 kg 79.7 kg Intake: Oral 591 Other: # Voids 3 # Bowel Movements 1 - Labs CBC & Chem 7: 10/19/24 05:07 10/19/24 05:07 Labs: Abnormal Lab Results - Last 24 Hours (Table) 10/18/24 10/18/24 10/19/24 Range/Units 13:42 21:20 05:07 RBC 3.98 L (4.10-5.20) X 10*6/uL Sodium 134 L (137-145) mmol/L Carbon Dioxide (21.6-31.8) mmol/L BUN 58 H (7-17) mg/dL Creatinine 2.68 H (0.52-1.04) mg/dL Est GFR (CKD-EPI) (>=60) BUN/Creatinine Ratio (12.00-20.00) Ratio Glucose 197 H (74-99) mg/dL POC Glucose (mg/dL) 263 H (70-110) mg/dL Calcium 10.3 H (8.4-10.2) mg/dL Alkaline Phosphatase 135 H (38-126) U/L Total Protein (6.2-8.2) g/dL Albumin (3.8-4.9) g/dL 10/19/24 10/19/24 Range/Units 05:07 05:37 RBC (4.10-5.20) X 10*6/uL Sodium 131 L (137-145) mmol/L Carbon Dioxide 20.1 L (21.6-31.8) mmol/L BUN 60.3 H (7-17) mg/dL Creatinine 2.6 H (0.52-1.04) mg/dL Est GFR (CKD-EPI) 19 L (>=60) BUN/Creatinine Ratio 23.19 H (12.00-20.00) Ratio Glucose 157 H (74-99) mg/dL POC Glucose (mg/dL) 139 H (70-110) mg/dL Calcium (8.4-10.2) mg/dL Alkaline Phosphatase (38-126) U/L Total Protein 5.6 L (6.2-8.2) g/dL Albumin 3.7 L (3.8-4.9) g/dL
[2024-10-20] MEDS ORDERED: INSULIN GLARGINE (LANTUS) 100 UNIT/ML SYR SQ SCH (09:00)
[2024-10-20 09:41] LABS: Basophils # (A) 0.04 X 10*3/uL (0.00-0.10); Basophils % (A) 0.7 %; Eosinophils # (A) 0.24 X 10*3/uL (0.04-0.35); Eosinophils % (A) 4.5 %; HCT 34.5 % (37.2-46.3); HGB 11.7 g/dL (12.0-15.0); Lymphocytes # (A) 2.37 X 10*3/uL (0.90-5.00); Lymphocytes % (A) 44.4 %; MCHC 33.9 g/dL (32.0-37.0); MCV 94.3 FL (80.0-97.0); Monocytes # (A) 0.37 X 10*3/uL (0.20-1.00); Monocytes % (A) 6.9 %; NRBC Per 100 WBC 0 X 10*3/uL (0.00-0.01); Neutrophils # (A) 2.29 X 10*3/uL (1.80-7.70); Neutrophils % (A) 42.9 %; Platelet Count 151 X 10*3/uL (140-440); RBC 3.66 X 10*6/uL (4.10-5.20); RDW 14.2 % (11.5-14.5); WBC 5.34 X 10*3/uL (4.50-10.00)
[2024-10-20 10:48] LABS: BUN/Creat Ratio 23.52 Ratio (12.00-20.00); Blood Urea Nitrogen 68.2 mg/dL (9.0-27.0); Calcium 9.1 mg/dL (8.7-10.3); Chloride 105 mmol/L (96-109); Glucose 121 mg/dL (70-110); Potassium 4.5 mmol/L (3.5-5.5); Sodium 136 mmol/L (135-145)
[2024-10-20 13:07] LABS: Glucose,Whole Blood 98 mg/dL (70-110)
--- NOTE | 2024-10-20 13:32 | P.PN ---
Subjective Progress Note Date: 10/20/24 HPI: This lady is here with discomfort in the right lateral aspect of her chest and abdomen. She also has some discomfort in the jaw area. These symptoms occur very randomly. Specifically physical activity does not bring the symptoms. She also has renal stones and apparently had a lithotripsy details are unavailable. She has history of ischemic cardiomyopathy prior bypass surgery in 2012 and a percutaneous aortic valve implant probably in 2017 at outside hospital. Her last echo from April 14, 2024 in the office revealed ejection fraction of 37%. She has a stable aortic valve prosthesis. She has what appears to be stable CAD without any clear-cut symptoms of angina. Her renal function has worsened creatinine is about 2.68. She has renal stones and renal ultrasound suggested the same. She saw urology here in [place] but was unhappy and she is seeing a urologist in the [place] area. At the time of my evaluation she is asymptomatic resting comfortably has no chest pain shortness of breath or palpitations. Her troponins are unremarkable EKG revealed sinus mechanism with poor R wave progression no acute changes.. RELEVANT PAST MEDICAL HISTORY: History of CAD with a prior bypass surgery and ICD. Ejection fraction is in the 35% range. He also has history of percutaneous aortic valve implant. Renal stones with previous lithotripsy. She has a diabetes with CKD creatinine here is 2.68.. MEDICATIONS: Aldactone 12.5 mg daily Ranexa 500 mg twice daily losartan 12.5 mg daily Jardiance 10 mg every other day, insulin Lasix Pepcid Prozac Repatha injections ALLERGIES: Please see the chart multiple agents sulfa Bactrim clavulanic acid amoxicillin. 10/20 Patient seen and examined. Patient states that she is feeling well today and slept well last night. She has been seen by urology and plan for procedure today for her kidney stone. Blood pressure 94/55, heart rate 60, pulse ox 100% on room air. PHYSICIAL EXAM: Vitals are stable no JVD S1-S2 heard normally short systolic murmur at the base second heart sound is preserved lungs reveal decent air entry abdomen is soft lower extremities reveal no edema diminished pulses Central nervous system grossly within normal limits. Repeat blood work reveals hemoglobin 9.7, BUN 68 creatinine 2.9. Yesterday, medication changes were made to include Coreg at 12 point 5 in the morning and 6.2 5 in the evening, Imdur was increased to 60 mg at noon and Aldactone on hold due to renal function. IMPRESSION: 1. Atypical chest pain. 2. Stable ischemic heart disease with prior bypass surgery and percutaneous aortic implant stable CHF chronic. 3. Type 2 diabetes with chronic kidney disease GFR in the range of 18 creati nine 2.68. 4. Renal stones under the care of urologist outside hospital was not happy with urologist here. 5. Obesity. RECOMMENDATIONS: Continue current cardiac medications with changes made yesterday to Coreg, Imdur and continue to hold Aldactone Patient is scheduled for urology procedure today, no contraindications and is cleared from a cardiology perspective for procedure. Continue medical therapy for chest pain Patient will follow-up with Dr. Christine upon discharge in 2 weeks. Discussed my thoughts in detail with the patient. Nurse practitioner note has been reviewed, I agree with documented findings and plan of care. Patient was seen and examined. Objective - Vital Signs Vital signs: Vital Signs Temp 97.8 F 10/20/24 01:51 Pulse 63 10/20/24 01:51 Resp 16 10/20/24 01:51 BP 96/60 10/20/24 01:51 Pulse Ox 99 10/20/24 01:51 FiO2 Intake & Output 10/19/24 10/20/24 10/20/24 18:59 06:59 18:59 Output Total 1200 Balance -1200 Weight 81.5 kg Output: Urine 1200 Other: Voiding Method Toilet # Voids 2 - Labs CBC & Chem 7: 10/20/24 05:36 10/20/24 05:36 Labs: Abnormal Lab Results - Last 24 Hours (Table) 10/19/24 10/19/24 10/19/24 Range/Units 05:07 05:07 11:47 RBC 3.98 L (4.10-5.20) X 10*6/uL Sodium 131 L (135-145) mmol/L Carbon Dioxide 20.1 L (21.6-31.8) mmol/L BUN 60.3 H (9.0-27.0) mg/dL Creatinine 2.6 H (0.6-1.5) mg/dL Est GFR (CKD-EPI) 19 L (>=60) BUN/Creatinine Ratio 23.19 H (12.00-20.00) Ratio Glucose 157 H (70-110) mg/dL POC Glucose (mg/dL) 161 H (70-110) mg/dL Total Protein 5.6 L (6.2-8.2) g/dL Albumin 3.7 L (3.8-4.9) g/dL 10/19/24 10/19/24 10/20/24 Range/Units 17:30 20:13 05:52 RBC (4.10-5.20) X 10*6/uL Sodium (135-145) mmol/L Carbon Dioxide (21.6-31.8) mmol/L BUN (9.0-27.0) mg/dL Creatinine (0.6-1.5) mg/dL Est GFR (CKD-EPI) (>=60) BUN/Creatinine Ratio (12.00-20.00) Ratio Glucose (70-110) mg/dL POC Glucose (mg/dL) 222 H 153 H 117 H (70-110) mg/dL Total Protein (6.2-8.2) g/dL Albumin (3.8-4.9) g/dL
[2024-10-20 17:04] LABS: Glucose,Whole Blood 69 mg/dL (70-110)
[2024-10-20] MEDS ORDERED: LIDOCAINE 1% INJ 10MG/ML (20 ML MDV) ONE (17:04)
[2024-10-20] MEDS ORDERED: ePHEDrine 50 MG/ML 1 ML VIAL ONE (17:04)
[2024-10-20] MEDS ORDERED: PROPOFOL 10 MG/ML 20 ML VIAL IV ONE (17:04)
[2024-10-20] MEDS ORDERED: GLYCOPYRROLATE 0.2 MG/ML 2 ML VIAL ONE (17:04)
[2024-10-20] MEDS ORDERED: fentaNYL (PF) 50 MCG/ML 2 ML AMP ONE (17:04)
[2024-10-20] MEDS ORDERED: PHENYLEPHRINE-0.9% NACL SYG 1,000 MCG/10 ML SYRINGE ONE (17:04)
[2024-10-20] MEDS: LACTATED RINGERS 1,000 ML IV ONE (17:09)
[2024-10-20] MEDS: SODIUM CHLORIDE 0.9% 50 ML with ceFAZolin 2,000 MG IV ONE (17:26)
[2024-10-20] MEDS: IOPAMIDOL-370 100ML BTL MISCELLANE ONE (17:32)
--- NOTE | 2024-10-20 17:47 | P.PN ---
Subjective Patient is seen for follow-up for acute kidney injury. Currently maintained on IV fluids. Serum creatinine is further increased to 2.9 today. Patient is scheduled for cystoscopy today for left hydronephrosis and left renal stone. Objective - Vital Signs Vital signs: Vital Signs Temp 97.8 F 10/20/24 15:00 Pulse 56 L 10/20/24 15:00 Resp 16 10/20/24 15:00 BP 92/55 10/20/24 15:00 Pulse Ox 98 10/20/24 15:00 FiO2 Intake & Output 10/19/24 10/20/24 10/20/24 18:59 06:59 18:59 Intake Total 50 Output Total 1200 Balance -1200 50 Weight 81.5 kg Intake: IV 50 Oral 0 Output: Urine 1200 Other: Voiding Method Toilet # Voids 2 2 - Exam Patient is awake, comfortable, no acute distress Examination of the heart S1 and S2 Examination of the lungs bilateral breath sounds are heard Abdomen is soft nontender obese Examination of lower extremity shows no significant edema 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 exam grossly intact - Labs CBC & Chem 7: 10/20/24 05:36 10/20/24 05:36 Labs: Abnormal Lab Results - Last 24 Hours (Table) 10/19/24 10/20/24 10/20/24 Range/Units 20:13 05:36 05:36 RBC 3.66 L (4.10-5.20) X 10*6/uL Hgb 11.7 L (12.0-15.0) g/dL Hct 34.5 L (37.2-46.3) % Carbon Dioxide 20.0 L (21.6-31.8) mmol/L BUN 68.2 H (9.0-27.0) mg/dL Creatinine 2.9 H (0.6-1.5) mg/dL Est GFR (CKD-EPI) 17 L (>=60) BUN/Creatinine Ratio 23.52 H (12.00-20.00) Ratio Glucose 121 H (70-110) mg/dL POC Glucose (mg/dL) 153 H (70-110) mg/dL 10/20/24 10/20/24 Range/Units 05:52 17:01 RBC (4.10-5.20) X 10*6/uL Hgb (12.0-15.0) g/dL Hct (37.2-46.3) % Carbon Dioxide (21.6-31.8) mmol/L BUN (9.0-27.0) mg/dL Creatinine (0.6-1.5) mg/dL Est GFR (CKD-EPI) (>=60) BUN/Creatinine Ratio (12.00-20.00) Ratio Glucose (70-110) mg/dL POC Glucose (mg/dL) 117 H 69 L (70-110) mg/dL Assessment and Plan Assessment: 1. Acute kidney injury, ATN as well as component of obstructive uropathy with left hydronephrosis from stone. Maintained on IV fluids. Blood pressure is borderline and angiotensin receptor blockers are currently on hold. UA is benign 2. Atypical chest pain with negative troponin 3. Chronic kidney disease stage IIIb with baseline creatinine around 1.4 to 1.7 mg/dL secondary to nephrosclerosis. UA is completely benign 4. Nephrolithiasis with left hydronephrosis and left renal stone, follows with urologist out of town. Urology on consult and patient is scheduled for cystoscopy and left ureteral stent placement today Plan: Continue with IV fluids Continue to hold diuretics Continue to hold losartan Repeat labs in a.m.
--- NOTE | 2024-10-20 18:15 | P.OP ---
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 She experienced abdominal pain in August [address] scan imaging, revealing mild to moderate left hydronephrosis due to what appeared to be calcifications within the left renal pelvis at the UPJ. Additional left renal calculi were seen. She was scheduled to undergo a left percutaneous nephrolithotomy by Dr. Brannon on September 15 but chose to seek a second opinion at [facility] She is now hospitalized and ultrasound shows moderate to severe left hydronephrosis. She is currently admitted with chest pain and reports left-sided abdominal and flank discomfort. Operative Findings: Left UPJ stricture. Description of Procedure: The patient was taken to the operating room and placed in the dorsolithotomy position, with legs supported in Yasmani stirrups. The external genitalia was prepped and draped sterilely. The 30 lens was used to introduce the 22-Turkish Stortz cystoscopic sheath through the urethra and into the bladder under direct vision. The bladder was examined in its entirety. Both ureteral orifices were of normal anatomic location and configuration. No tumors or foreign bodies were seen. An 8 Turkish cone-tip catheter was passed through the cystoscope. The left ureteral orifice was cannulated, and contrast was injected in a retrograde fashion. The C-arm was utilized to perform fluoroscopy. The ureter was normal in course and caliber up to the UPJ, where it came to a tapered and. No contrast passed into the renal pelvis/intrarenal collecting system. A 0.035 inch Glidewire was then passed through the cystoscope. The left ureteral orifice was cannulated, and the Glidewire was slowly advanced up to the point where the contrast would not pass beyond. It was not possible to advance the tip of the Glidewire beyond this point, as it simply coiled within the ureter. With the Glidewire in place, a 5 Turkish open-ended catheter was passed over the wire and up to the proximal ureter. Contrast was then injected through the open-ended catheter, but again no contrast passed through the stricture and into the intrarenal collecting system. The open-ended catheter was removed. The bladder was emptied and the cystoscope removed. The patient tolerated the procedure well and was taken to the recovery room in stable condition.
[2024-10-20 18:41] LABS: Glucose,Whole Blood 58 mg/dL (70-110)
[2024-10-20 18:47] LABS: Glucose,Whole Blood 64 mg/dL (70-110)
[2024-10-20 19:11] LABS: Glucose,Whole Blood 80 mg/dL (70-110)
--- NOTE | 2024-10-20 19:26 | FL ---
EXAMINATION TYPE: FL guidance operating room DATE OF EXAM: 10/20/2024 5:47 PM COMPARISON: Pre Operative Images if available both CT/MRI or plain film CLINICAL INDICATION: Female, 74 years old with history of LT sided stone; TECHNIQUE: FL guidance operating room, multiple fluoroscopic images provided for procedure. Total fluoroscopy time: 5.48 seconds Total submitted images to PACS: 6 DAP: 3.15 mGym2 Gycm2 uGym2 cGycm2 or equivalent. FINDINGS: Fluoroscopic images during retrograde pyelogram demonstrate contrast in the left ureter. No evidence of extravasation of contrast. No immediate complication identified. IMPRESSION: 1. Intraoperative fluoroscopic images as above. 2. Please see the operative/procedural note for further details. [facility], , 10/20/2024 7:23 PM
[2024-10-20 19:31] LABS: Glucose,Whole Blood 90 mg/dL (70-110)
[2024-10-20 20:37] LABS: Glucose,Whole Blood 150 mg/dL (70-110)
[2024-10-20 22:17] VITALS: PULSE 60
--- NOTE | 2024-10-21 05:38 | P.PN ---
Subjective Progress Note Date: 10/20/24 This is a pleasant 74-year-old female who initially presented to the ER with chest pain in the anterior part of her chest that reports was relieved by nitro. Cardiology following making adjustments to medications recommending outpatient follow-up. Nephrology following as well for acute on chronic kidney disease with WENDY having worsening kidney functions with a creatinine of 2.68. Renal ultrasound is ordered and pending at this time. Patient reports of generalized weakness and recommend increase activity as tolerated with sitting up in the chair more frequently. Patient is maintained on gentle IV hydration. 10/20/2024 Patient is seen in follow-up today reports to feeling slightly improved. Ur ology consulted with concerns of renal calculi and is awaiting to undergo cystoscopy today. Patient is currently n.p.o. and diet will be resumed once cleared by surgery. Nephrology following as well and kidney functions are slightly worsened with concerns of hydronephrosis. Patient is afebrile and denies chest pain or shortness of breath. Will follow-up on repeat labs in the AM. Review of systems: Constitutional: No reports of fatigue, fever, or chills Cardiovascular: No reports of chest pain or palpitations Respiratory: No reports of shortness of breath or cough GI: No reports of nausea, no reports of vomiting, no diarrhea : No reports of dysuria or retention Neurovascular: reports of generalized weakness All medications have been reviewed PHYSICAL EXAMINATION: GENERAL: The patient is alert and oriented x4, Well developed, obese HEENT: Pupils are round and equally reacting to light. EOMI. no scleral icterus. No conjunctival pallor. Normocephalic, atraumatic. No pharyngeal erythema. No thyromegaly. CARDIOVASCULAR: S1 and S2 muffled PULMONARY: diminished breath sounds bilaterally with no wheezing or rhonchi noted. ABDOMEN: soft. Nontender on exam. obese. non-distended, normoactive bowel sounds. No palpable organomegaly. MUSCULOSKELETAL: No joint swelling or deformity. EXTREMITIES: No cyanosis, clubbing, or pedal edema. NEUROLOGICAL: Gross neurological examination did not reveal any focal deficits. Diffuse weakness SKIN: No rashes. Assessment: Chest pain, possible unstable angina, ACS ruled out Acute on chronic renal failure with worsening kidney functions, creatinine 2.68 today Left-sided hydronephrosis, noted on imaging, urology following and patient scheduled to undergo cystoscopy today 10/20/2024 History of asthma, not in exacerbation Diabetes mellitus, type II Hypertension history Hyperlipidemia History of degenerative joint disease History of cardiac arrest in 2017 History of gout Obesity with a BMI 37.6 GI prophylaxis DVT prophylaxis Full code Plan: Recommend to continue with current medications and management with cardiology and nephrology following. Kidney functions worsening with a creatinine of 2.68 with acute on chronic kidney maintained on gentle hydration. Cardiology making adjustments to medications recommending outpatient follow-up Nephrology has consulted urology as there was concerned of worsening kidney functions and renal ultrasound suggestive of left hydronephrosis. Patient to undergo cystoscopy today and currently pending. N.p.o. for now and diet will be resumed once cleared by surgery Continue gentle hydration and follow-up on repeat labs Encouraged increase activity as tolerated Overall prognosis is guarded The impression and plan of care has been dictated by Cassidy Blevins, nurse practitioner as directed. Dr. Marv MD I have performed a history and examination and MDM of this patient, discussed the same with the dictator, and agree with the dictator's assessment and plan as written ,documented as a scribe. Based on total visit time, I have performed more than 50% of the visit. Any additional findings or plans will be noted. Objective - Vital Signs Vital signs: Vital Signs Temp 97.6 F 10/20/24 07:00 Pulse 60 10/20/24 07:00 Resp 16 10/20/24 07:00 BP 94/55 10/20/24 07:00 Pulse Ox 100 10/20/24 07:00 FiO2 Intake & Output 10/19/24 10/20/24 10/20/24 18:59 06:59 18:59 Intake Total 0 Output Total 1200 Balance -1200 0 Weight 81.5 kg Intake: Oral 0 Output: Urine 1200 Other: Voiding Method Toilet # Voids 2 - Labs CBC & Chem 7: 10/20/24 05:36 10/20/24 05:36 Labs: Abnormal Lab Results - Last 24 Hours (Table) 10/19/24 10/19/24 10/19/24 Range/Units 05:07 05:07 11:47 RBC 3.98 L (4.10-5.20) X 10*6/uL Sodium 131 L (135-145) mmol/L Carbon Dioxide 20.1 L (21.6-31.8) mmol/L BUN 60.3 H (9.0-27.0) mg/dL Creatinine 2.6 H (0.6-1.5) mg/dL Est GFR (CKD-EPI) 19 L (>=60) BUN/Creatinine Ratio 23.19 H (12.00-20.00) Ratio Glucose 157 H (70-110) mg/dL POC Glucose (mg/dL) 161 H (70-110) mg/dL Total Protein 5.6 L (6.2-8.2) g/dL Albumin 3.7 L (3.8-4.9) g/dL 10/19/24 10/19/24 10/20/24 Range/Units 17:30 20:13 05:52 RBC (4.10-5.20) X 10*6/uL Sodium (135-145) mmol/L Carbon Dioxide (21.6-31.8) mmol/L BUN (9.0-27.0) mg/dL Creatinine (0.6-1.5) mg/dL Est GFR (CKD-EPI) (>=60) BUN/Creatinine Ratio (12.00-20.00) Ratio Glucose (70-110) mg/dL POC Glucose (mg/dL) 222 H 153 H 117 H (70-110) mg/dL Total Protein (6.2-8.2) g/dL Albumin (3.8-4.9) g/dL
[2024-10-21 06:25] LABS: Glucose,Whole Blood 90 mg/dL (70-110)
[2024-10-21 07:35] VITALS: RESP 16
[2024-10-21 08:27] LABS: Basophils # (A) 0.03 X 10*3/uL (0.00-0.10); Basophils % (A) 0.6 %; Eosinophils # (A) 0.26 X 10*3/uL (0.04-0.35); Eosinophils % (A) 5.2 %; HCT 34.4 % (37.2-46.3); HGB 11.4 g/dL (12.0-15.0); Lymphocytes # (A) 1.72 X 10*3/uL (0.90-5.00); Lymphocytes % (A) 34.2 %; MCH 31.2 pg (27.0-32.0); MCHC 33.1 g/dL (32.0-37.0); MCV 94.2 FL (80.0-97.0); Monocytes # (A) 0.33 X 10*3/uL (0.20-1.00); Monocytes % (A) 6.6 %; NRBC Per 100 WBC 0 X 10*3/uL (0.00-0.01); Neutrophils # (A) 2.68 X 10*3/uL (1.80-7.70); Neutrophils % (A) 53.2 %; Platelet Count 145 X 10*3/uL (140-440); RBC 3.65 X 10*6/uL (4.10-5.20); RDW 14.2 % (11.5-14.5); WBC 5.03 X 10*3/uL (4.50-10.00)
[2024-10-21 08:42] LABS: BUN/Creat Ratio 20.48 Ratio (12.00-20.00); Blood Urea Nitrogen 51.2 mg/dL (9.0-27.0); Carbon Dioxide 21.1 mmol/L (21.6-31.8); Chloride 106 mmol/L (96-109); Glucose 104 mg/dL (70-110); Magnesium 2.1 mg/dL (1.5-2.4); Potassium 4.5 mmol/L (3.5-5.5); Sodium 137 mmol/L (135-145)
[2024-10-21 08:43] LABS: ALT 11 U/L (8-44); AST 15 U/L (13-35); Albumin 3.6 g/dL (3.8-4.9); Albumin/Globulin Ratio 2.12 Ratio (1.60-3.17); Alkaline Phosphatase 107 U/L (41-126); Calcium 9.5 mg/dL (8.7-10.3); Globulin 1.7 g/dL (1.6-3.3); Total Bilirubin 0.3 mg/dL (0.3-1.2); Total Protein 5.3 g/dL (6.2-8.2)
--- NOTE | 2024-10-21 11:26 | P.PN ---
Subjective Patient is seen for follow-up for acute kidney injury. Currently maintained on IV fluids. Status post cystoscopy yesterday however left ureteral stent could not be placed as patient had significant stricture and calcification. Discussed with urology and patient will benefit from left nephrostomy. This will be done as outpatient and there are plans for discharge today. Serum creatinine improved to 2.6 from 2.9 yesterday. No significant complaints today. Objective - Vital Signs Vital signs: Vital Signs Temp 97.6 F 10/21/24 07:00 Pulse 60 10/21/24 07:00 Resp 16 10/21/24 07:00 BP 122/79 10/21/24 07:00 Pulse Ox 100 10/21/24 07:00 FiO2 Intake & Output 10/20/24 10/21/24 10/21/24 18:59 06:59 18:59 Intake Total 650 Output Total 0 Balance 650 Weight 83.7 kg Intake: IV 650 Oral 0 Output: Estimated Blood Loss 0 Other: Voiding Method Toilet Toilet # Voids 2 3 - Exam Patient is awake, comfortable, no acute distress Examination of the heart S1 and S2 Examination of the lungs bilateral breath sounds are heard Abdomen is soft nontender obese Examination of lower extremity shows no significant edema 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0) g/dL Hct 34.4 L (37.2-46.3) % Carbon Dioxide 21.1 L (21.6-31.8) mmol/L BUN 51.2 H (9.0-27.0) mg/dL Creatinine 2.5 H (0.6-1.5) mg/dL Est GFR (CKD-EPI) 20 L (>=60) BUN/Creatinine Ratio 20.48 H (12.00-20.00) Ratio POC Glucose (mg/dL) 150 H (70-110) mg/dL Total Protein 5.3 L (6.2-8.2) g/dL Albumin 3.6 L (3.8-4.9) g/dL Assessment and Plan Assessment: 1. Acute kidney injury, ATN as well as component of obstructive uropathy with left hydronephrosis from stone. Maintained on IV fluids. Blood pressure is borderline and angiotensin receptor blockers are currently on hold. UA is benign 2. Atypical chest pain with negative troponin 3. Chronic kidney disease stage IIIb with baseline creatinine around 1.4 to 1.7 mg/dL secondary to nephrosclerosis. UA is completely benign 4. Nephrolithiasis with left hydronephrosis and left renal stone, follows with urologist out of town. Urology on consult. Status post cystoscopy yesterday however left ureteral stent could not be placed secondary to stricture and significant calcification. Discussed left nephrostomy tube placement. Patient is agreeable and this will be done as outpatient as interventional radiology services are not available currently. Plan: Continue to hold diuretics Patient can be discharged from nephrology standpoint with plans for outpatient l eft nephrostomy tube placement. She follow-up as outpatient in 1 to 2 weeks with nephrology. Follow-up with urology post discharge
[2024-10-21 12:18] LABS: Glucose,Whole Blood 169 mg/dL (70-110)
--- NOTE | 2024-10-21 12:40 | P.PN ---
Subjective Progress Note Date: 10/21/24 HPI: This lady is here with discomfort in the right lateral aspect of her chest and abdomen. She also has some discomfort in the jaw area. These symptoms occur very randomly. Specifically physical activity does not bring the symptoms. She also has renal stones and apparently had a lithotripsy details are unavailable. She has history of ischemic cardiomyopathy prior bypass surgery in 2012 and a percutaneous aortic valve implant probably in 2017 at outside hospital. Her last echo from April 14, 2024 in the office revealed ejection fraction of 37%. She has a stable aortic valve prosthesis. She has what appears to be stable CAD without any clear-cut symptoms of angina. Her renal function has worsened creatinine is about 2.68. She has renal stones and renal ultrasound suggested the same. She saw urology here in [place] but was unhappy and she is seeing a urologist in the [place] area. At the time of my evaluation she is asymptomatic resting comfortably has no chest pain shortness of breath or palpitations. Her troponins are unremarkable EKG revealed sinus mechanism with poor R wave progression no acute changes.. RELEVANT PAST MEDICAL HISTORY: History of CAD with a prior bypass surgery and ICD. Ejection fraction is in the 35% range. He also has history of percutaneous aortic valve implant. Renal stones with previous lithotripsy. She has a diabetes with CKD creatinine here is 2.68.. MEDICATIONS: Aldactone 12.5 mg daily Ranexa 500 mg twice daily losartan 12.5 mg daily Jardiance 10 mg every other day, insulin Lasix Pepcid Prozac Repatha injections ALLERGIES: Please see the chart multiple agents sulfa Bactrim clavulanic acid amoxicillin. 10/20 Patient seen and examined. Patient states that she is feeling well today and slept well last night. She has been seen by urology and plan for procedure today for her kidney stone. Blood pressure 94/55, heart rate 60, pulse ox 100% on room air. Yesterday, medication changes were made to include Coreg at 12 point 5 in the morning and 6.2 5 in the evening, Imdur was increased to 60 mg at noon and Aldactone on hold due to renal function.Repeat blood work reveals hemoglobin 9.7, BUN 68 creatinine 2.9. 10/21 Yesterday, patient underwent cystoscopy however left ureteral stent could not be placed as patient had significant stricturing calcification. Nephrology is following the patient as well. Patient denies having chest pain. Blood pressure 122/79, heart rate 60, pulse ox 100% on room air. Repeat blood work reveals hemoglobin 9.4, BUN 51 creatinine 2.5. PHYSICIAL EXAM: Vitals are stable no JVD S1-S2 heard normally short systolic murmur at the base second heart sound is preserved lungs reveal decent air entry abdomen is soft lower extremities reveal no edema diminished pulses Central nervous system grossly within normal limits. IMPRESSION: 1. Atypical chest pain. 2. Stable ischemic heart disease with prior bypass surgery and percutaneous aortic implant stable CHF chronic. 3. Type 2 diabetes with chronic kidney disease GFR in the range of 18 creatinine 2.68. 4. Renal stones under the care of urologist outside hospital was not happy with urologist here. 5. Obesity. RECOMMENDATIONS: Continue current cardiac medications with changes made yesterday to Coreg, Imdur and continue to hold Aldactone Continue medical therapy for chest pain Patient will follow-up with Dr. Christine in 2 weeks. Discussed my thoughts in detail with the patient. Cardiology will sign off this case and follow on an as-needed basis. Please reconsult for any new concerns. Nurse practitioner note has been reviewed, I agree with documented findings and plan of care. Patient was seen and examined. Objective - Vital Signs Vital signs: Vital Signs Temp 97.6 F 10/21/24 07:00 Pulse 60 10/21/24 07:00 Resp 16 10/21/24 07:00 BP 122/79 10/21/24 07:00 Pulse Ox 100 10/21/24 07:00 FiO2 Intake & Output 10/20/24 10/21/24 10/21/24 18:59 06:59 18:59 Intake Total 650 Output Total 0 Balance 650 Weight 83.7 kg Intake: IV 650 Oral 0 Output: Estimated Blood Loss 0 Other: Voiding Method Toilet # Voids 2 3 - Labs CBC & Chem 7: 10/21/24 04:52 10/21/24 04:52 Labs: Abnormal Lab Results - Last 24 Hours (Table) 10/20/24 10/20/24 10/20/24 Range/Units 05:36 05:36 17:01 RBC 3.66 L (4.10-5.20) X 10*6/uL Hgb 11.7 L (12.0-15.0) g/dL Hct 34.5 L (37.2-46.3) % Carbon Dioxide 20.0 L (21.6-31.8) mmol/L BUN 68.2 H (9.0-27.0) mg/dL Creatinine 2.9 H (0.6-1.5) mg/dL Est GFR (CKD-EPI) 17 L (>=60) BUN/Creatinine Ratio 23.52 H (12.00-20.00) Ratio Glucose 121 H (70-110) mg/dL POC Glucose (mg/dL) 69 L (70-110) mg/dL 10/20/24 10/20/24 10/20/24 Range/Units 18:26 18:44 20:35 RBC (4.10-5.20) X 10*6/uL Hgb (12.0-15.0) g/dL Hct (37.2-46.3) % Carbon Dioxide (21.6-31.8) mmol/L BUN (9.0-27.0) mg/dL Creatinine (0.6-1.5) mg/dL Est GFR (CKD-EPI) (>=60) BUN/Creatinine Ratio (12.00-20.00) Ratio Glucose (70-110) mg/dL POC Glucose (mg/dL) 58 L 64 L 150 H (70-110) mg/dL
[2024-10-21 14:21] VITALS: BP 106/67; TEMP 98
--- NOTE | 2024-10-21 14:48 | CDI ---
Documentation Clarification Form Date: 10/21/2024 02:08:02 PM From: Nicolasa Berg Phone: [phone] Admit Date: 10/18/2024 02:44:00 PM Patient Name: Gypsy Auguste Visit Number: [id number] Discharge Date: ATTENTION: The Clinical Documentation Specialists (CDI) and [facility] Coding Staff appreciate your assistance in clarifying documentation. Please respond to the clarification below the line at the bottom and electronically sign. The CDI & [facility] Coding staff will review the response and follow-up if needed. Please note: Queries are made part of the Legal Health Record. If you have any questions, please contact the author of this message via ITS. Provider: Indira MENDOZA Your patient has the documented diagnosis of unspecified CHF in the Cardiology consult and subsequent progress notes. Additional information regarding the type of CHF is requested. History/Risk Factors: Renal stones, Ischemic cardiomyopathy Clinical Indicators: 74-year-old female present with discomfort right lateral chest and abdomen specifically with physical activity. Stable ischemic heart disease with prior bypass surgery and percutaneous aortic implant stable CHF chronic. VS/Pulse OX: 133/63 64 20 97.8 98% wbc 7.4 Na 134BUN 58 CR 2.68 BNP BNP: 3760 Echocardiogram Results: (April 14, 2024) ejection fraction of 37% She has a stable aortic valve prosthesis. She has what appears to be stable CAD without any clear-cut symptoms of angina. 10/18 Chest X Ray: Chronic changes without acute pulmonary process Treatment: Dice Table Operator / Telemetry Coreg 12.5 MG PO Daily, Imdur 60 MG, In your professional opinion, can you please clarify the type of chronic CHF if known? [ x ] Chronic Systolic Heart Failure (reduced EF) [ ] Chronic Systolic & Diastolic Heart Failure [ ] Other, please specify [ ] Unable to determine (Template Last Revised: September 2020) Chronic Systolic Heart Failure (reduced EF) MTDD
--- NOTE | 2024-10-21 21:39 | P.PN ---
Subjective Progress Note Date: 10/21/24 Principal diagnosis: Left UPJ Occlusion Ms. Auguste underwent ureteroscopic removal of a large left UPJ calculus in February 2024. She was recently found to have left hydronephrosis. Cystoscopy with retrograde pyelogram yesterday revealed a left UPJ stricture with complete occlusion. I had a lengthy discussion with Ms. Auguste regarding this. Given her renal insufficiency, I have suggested she undergo placement of a left percutaneous nephrostomy tube. Subsequently, her renal function will be monitored to see if her renal function improves. If so, she may benefit from reconstructive surgery. Conversely, if her renal function fails to improve, she would be best served with observation, or a palliative nephrectomy if she develops increased pain. Objective - Vital Signs Vital signs: Vital Signs Temp 98 F 10/21/24 14:20 Pulse 60 10/21/24 14:20 Resp 16 10/21/24 14:20 BP 106/67 10/21/24 14:20 Pulse Ox 99 10/21/24 14:20 FiO2 Intake & Output 10/21/24 10/21/24 10/22/24 06:59 18:59 06:59 Weight 83.7 kg Other: Voiding Method Toilet Toilet # Voids 3 3 - Constitutional General appearance: Present: average body habitus, cooperative, no acute distress - Psychiatric Psychiatric: Present: A&O x's 3 - Labs CBC & Chem 7: 10/21/24 04:52 10/21/24 04:52 Labs: Abnormal Lab Results - Last 24 Hours (Table) 10/21/24 10/21/24 10/21/24 Range/Units 04:52 04:52 12:16 RBC 3.65 L (4.10-5.20) X 10*6/uL Hgb 11.4 L (12.0-15.0) g/dL Hct 34.4 L (37.2-46.3) % Carbon Dioxide 21.1 L (21.6-31.8) mmol/L BUN 51.2 H (9.0-27.0) mg/dL Creatinine 2.5 H (0.6-1.5) mg/dL Est GFR (CKD-EPI) 20 L (>=60) BUN/Creatinine Ratio 20.48 H (12.00-20.00) Ratio POC Glucose (mg/dL) 169 H (70-110) mg/dL Total Protein 5.3 L (6.2-8.2) g/dL Albumin 3.6 L (3.8-4.9) g/dL Assessment and Plan (1) Hydronephrosis with renal and ureteral calculous obstruction Status: Acute Code(s): N13.2 - HYDRONEPHROSIS WITH RENAL AND URETERAL CALCULOUS OBSTRUCTION SNOMED Code(s): 142724695 Plan: The patient is to be discharged home today. Arrangements will be made for her to undergo insertion of a left percutaneous nephrostomy tube at [facility].
--- NOTE | 2024-10-25 13:55 | P.DS ---
Providers Date of admission: 10/18/24 14:44 Expected date of discharge: 10/21/24 Attending physician: Liza Fair Consults: 10/18/24 14:56 Consult Physician Urgent Consulting Provider: [facility] Consult Reason/Comments: acute chest pain, hx ascad Do you want consulting provider notified?: Yes Consult Physician Urgent Consulting Provider: Papito Damon Consult Reason/Comments: maura/ckd Do you want consulting provider notified?: Yes 10/19/24 14:50 Consult Physician Routine Consulting Provider: Erik Clark Consult Reason/Comments: left hydro Do you want consulting provider notified?: Yes Primary care physician: Galo Borges [facility] Course: Final diagnosis Chest pain, possible unstable angina, ACS ruled out Acute on chronic renal failure with worsening kidney functions, creatinine 2.68 today Left-sided hydronephrosis, noted on imaging, status post cystoscopy with retrograde pyelogram 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 Patient will follow-up with Dr. Borges in the outpatient setting upon discharge. Patient is to continue with current medications and outpatient follow-up with nephrology as well as urology as scheduled. Patient is being scheduled at [facility] to receive possible left percutaneous nephrostomy tube. Total time taken is greater than 35 minutes. Hospital course This is a 74-year-old female who was recently admitted with chest pain ACS ruled out being followed by cardiology. Patient also noted to have acute on chronic renal failure with worsening kidney functions evaluated by nephrology as well as urology. Patient noted to have left-sided hydronephrosis and is status post cystoscopy with retrograde pyelogram revealing a complete occlusion with a left UPJ stricture. Patient is being scheduled outpatient per urology to follow with Mick Grafton for nephrostomy tube placement. Lengthy discussion was had with urology and patient will follow-up in the outpatient setting. Patient reports to feeling better and will follow-up on repeat labs. Patient is scheduled to undergo back surgery in December and discussed with patient and family member at the bedside this may need to be postponed due to ongoing kidney functions. Patient is cleared by consultations for discharge home today. Please refer to consult notes for further HPI. Currently no reports of chest pain, shortness of breath, or palpitations. Patient is afebrile. No reports of nausea or vomiting and patient is tolerating diet. Patient will be discharged home today. Guarded prognosis Physical exam: Gen: This is a 74-year-old female who is awake, alert and oriented x 3, well- developed, elderly appearing, obese HEENT: Head is atraumatic, normocephalic. Pupils equal, round. Sclerae is anicteric. NECK: Supple. No JVD. No lymphadenopathy. No thyromegaly. LUNGS: Diminished breath sounds bilaterally otherwise clear to auscultation. No wheezes or rhonchi. No intercostal retractions. HEART: Regular rate and rhythm. No murmur. ABDOMEN: Soft. Obese. Bowel sounds are present. No masses. No tenderness. EXTREMITIES: No pedal edema. No calf tenderness. NEUROLOGICAL: Patient is awake, alert and oriented x3. Cranial nerves 2 through 12 are grossly intact. Please refer to medication reconciliation sheet for a list of medications. The impression and plan of care has been dictated by Cassidy Blevins, Nurse Practitioner as directed. Dr. Marv MD I have performed a history and examination and MDM of this patient, discussed the same with the dictator, and agree with the dictator's assessment and plan as written ,documented as a scribe. Based on total visit time, I have performed more than 50% of the visit. Patient Condition at Discharge: Stable Plan - Discharge Summary Discharge Rx Participant: No New Discharge Prescriptions: New carvediloL [Coreg*] 12.5 mg PO DAILY #30 tab Acetaminophen Tab [Tylenol] 650 mg PO Q6HR PRN tab PRN Reason: Fever And/ Or Pain carvediloL [Coreg] 6.25 mg PO HS #30 tab Isosorbide Mononitrate ER [Imdur] 60 mg PO 1200 #60 tab Continue Montelukast [Singulair] 10 mg PO HS Famotidine [Pepcid] 20 mg PO DAILY allopurinoL [Zyloprim] 300 mg PO DAILY Evolocumab [Repatha Syringe] 140 mg SQ Q14D Insulin Lispro [humaLOG Kwikpen] See Protocol SQ TID-W/MEALS FLUoxetine HCL [PROzac] 20 mg PO DAILY Insulin Glargine,Hum.rec.anlog [Lantus Solostar Pen] 10 units SQ BID Ranolazine [Ranexa] 500 mg PO BID Aspirin EC [Ecotrin Low Dose] 81 mg PO DAILY Nystatin 100,000 Unit/gm Powd [Mycostatin Powder] 1 applic TOPICAL BID Discontinued Isosorbide Mononitrate ER [Imdur] 30 mg PO DAILY Losartan [Cozaar] 12.5 mg PO DAILY Spironolactone [Aldactone] 12.5 mg PO DAILY Furosemide [Lasix] 40 mg PO DAILY Discharge Medication List Famotidine [Pepcid] 20 mg PO DAILY 06/20/16 [History] Montelukast [Singulair] 10 mg PO HS 06/20/16 [History] allopurinoL [Zyloprim] 300 mg PO DAILY 06/20/16 [History] Evolocumab [Repatha Syringe] 140 mg SQ Q14D 10/05/19 [History] Insulin Glargine,Hum.rec.anlog [Lantus Solostar Pen] 10 units SQ BID 02/21/23 [History] Insulin Lispro [humaLOG Kwikpen] See Protocol SQ TID-W/MEALS 02/21/23 [History] Ranolazine [Ranexa] 500 mg PO BID 02/21/23 [History] Aspirin EC [Ecotrin Low Dose] 81 mg PO DAILY 03/02/24 [History] FLUoxetine HCL [PROzac] 20 mg PO DAILY 03/02/24 [History] Nystatin 100,000 Unit/gm Powd [Mycostatin Powder] 1 applic TOPICAL BID 10/18/24 [History] Acetaminophen Tab [Tylenol] 650 mg PO Q6HR PRN tab 10/21/24 [Rx] Isosorbide Mononitrate ER [Imdur] 60 mg PO 1200 #60 tab 10/21/24 [Rx] carvediloL [Coreg*] 12.5 mg PO DAILY #30 tab 10/21/24 [Rx] carvediloL [Coreg] 6.25 mg PO HS #30 tab 10/21/24 [Rx] Follow up Appointment(s)/Referral(s): Tracey Christine MD [STAFF PHYSICIAN] - 2 Weeks Galo Borges MD [Primary Care Provider] - 1-2 days Minerva Avalos MD [STAFF PHYSICIAN] - 1 Week Ambulatory/Diagnostic Orders: Comprehensive Metabolic Panel [LAB.AMB] Time Frame: 3 Days, Location: None Selected Activity/Diet/Wound Care/Special Instructions: Activity limited until follow-up Follow-up with primary care provider at discharge Follow-up with cardiology outpatient Follow-up with nephrology outpatient Follow-up with urology outpatient Continue taking medications as prescribed Repeat labs in the next few days to monitor kidney functions Discharge Disposition: HOME SELF-CARE
== END 2024-10-21 15:02 | disposition home or self-care (01) ==
LOC: EC 13:18 → INTOOBSV 14:44 → OBSVTOIN 14:44 → 6NMEDSUR 14:44
PROVIDERS: ADMIT Hospitalist; ATTEND Hospitalist
DX: N13.2 Hydronephrosis with renal and ureteral calculous obstruction (principal); R07.89 Other chest pain; N17.0 Acute kidney failure with tubular necrosis; I13.0 Hypertensive heart and chronic kidney disease with heart failure and stage 1 through stage 4 chronic kidney disease, or unspecified chronic kidney disease; I50.9 Heart failure, unspecified; N18.32 Chronic kidney disease, stage 3b; E11.22 Type 2 diabetes mellitus with diabetic chronic kidney disease; I25.10 Atherosclerotic heart disease of native coronary artery without angina pectoris; K21.9 Gastro-esophageal reflux disease without esophagitis; E78.5 Hyperlipidemia, unspecified; F32.A Depression, unspecified; F41.9 Anxiety disorder, unspecified; J45.909 Unspecified asthma, uncomplicated; I25.2 Old myocardial infarction; E66.9 Obesity, unspecified; Z68.37 Body mass index [BMI] 37.0-37.9, adult; Z86.74 Personal history of sudden cardiac arrest; Z95.5 Presence of coronary angioplasty implant and graft; Z95.810 Presence of automatic (implantable) cardiac defibrillator; Z79.4 Long term (current) use of insulin; Z79.82 Long term (current) use of aspirin; Z79.899 Other long term (current) drug therapy; Z88.0 Allergy status to penicillin; Z88.1 Allergy status to other antibiotic agents; Z88.2 Allergy status to sulfonamides
CPT/HCPCS: 99285; 36415; 93005; 83880; 80053 ×3; 80048; 83690; 83735 ×2; 84484; 85025 ×4; 85610; 85730; 81003; 71046; 76770; 52005; G0378 ×4; C1758 ×2; C1769; J0690; J2003; J3010; J2704; Q9967; J2371; J1596; 96360; 96361

== ENCOUNTER → 2024-11-30 | Outpatient (CLI) | payer MEDICARE ==
--- NOTE | 2024-11-30 17:59 | NM ---
EXAMINATION TYPE: NM renal flow and function DATE OF EXAM: 11/30/2024 COMPARISON: 08/24/2024 10/18/2024. CLINICAL INDICATION: Female, 74 years old with history of N13.30 LEFT HYDRONEPHROSIS; Following administration of 9.67 mCi Tc99m MAG3. Immediate images post injection. FINDINGS: Left: 15.8 %. Right: 84.2 %. Max renal flow left: 0.70 minutes. Max renal flow right: 84.2 minutes. Satisfactory accumulation of radiotracer within both renal collecting systems. T 1/2 left: NA minutes. T 1/2 right: 8.5 minutes. Minimal uptake within the left kidney, dominant dominant right renal uptake with excretion. No right hydronephrosis. Evaluation for hydronephrosis on the left is limited due to lack of uptake. IMPRESSION: Minimal uptake within the left kidney limiting evaluation for hydronephrosis. Dominant right kidney r enal function. 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 [facility], , 11/30/2024 5:57 PM
== END | disposition home or self-care (01) ==
LOC: RADNMMAIN 12:49
PROVIDERS: ATTEND Urology
DX: N13.30 Unspecified hydronephrosis (principal)
CPT/HCPCS: 78707; A9562

== ENCOUNTER 2025-01-04 15:14 | Inpatient (IN) | payer MEDICARE ==
--- NOTE | 2025-01-04 16:20 | ED ---
Recheck HPI - General Chief Complaint: Recheck/Abnormal Lab/Rx Stated Complaint: Kidney issue Time Seen by Provider: 01/04/25 16:17 Source: patient, RN notes reviewed, old records reviewed Mode of arrival: ambulatory Limitations: no limitations - History of Present Illness Initial Comments: This is a 74-year-old female to the ER for evaluation, patient presents today with complex medical history mainly involving left kidney. Patient has left nephrostomy tube secondary to impending failure of the left kidney with prognosis being nephrectomy. Patient presents today with foul smell from that area and severe pain. Pain and smell has gotten significantly worse she has made up attempts to get in touch with urologist but was unable or unsuccessful d oes have appointment Saturday Complaint: wound re-check (Evaluation of left nephrostomy tube) -: days(s) Returns Today for: needs IV antibiotics, persistent/worsening pain related to initial visit Symptoms Since Prior Visit: worsening pain, fever (Patient denies fevers) Context: planned re-check Associated Symptoms: none - Related Data Home Medications Medication Instructions Recorded Confirmed Famotidine [Pepcid] 20 mg PO HS 06/20/16 01/05/25 Montelukast [Singulair] 10 mg PO HS 06/20/16 01/05/25 allopurinoL [Zyloprim] 300 mg PO HS 06/20/16 01/05/25 Evolocumab [Repatha Syringe] 140 mg SQ Q14D 10/05/19 01/05/25 Insulin Glargine,Hum.rec.anlog 10 units SQ BID 02/21/23 01/05/25 [Lantus Solostar Pen] Insulin Lispro [humaLOG Kwikpen] See Protocol SQ TID-W/MEALS 02/21/23 01/05/25 Ranolazine [Ranexa] 500 mg PO BID 02/21/23 01/05/25 Nystatin 100,000 Unit/gm Powd 1 applic TOPICAL BID 10/18/24 01/05/25 [Mycostatin Powder] Acetaminophen Tab [Tylenol] 1,000 mg PO BID 01/05/25 01/05/25 Acetaminophen Tab [Tylenol] 1,000 mg PO Q6HR PRN 01/05/25 01/05/25 Isosorbide Mononitrate ER [Imdur] 60 mg PO BID 01/05/25 01/05/25 Nystatin 100,000Unit/gm Cream 1 applic TOPICAL BID 01/05/25 01/05/25 [Mycostatin Cream] Previous Rx's Medication Instructions Recorded HYDROcodone/APAP 5-325MG [Mode 1 each PO Q6HR PRN #12 tab 01/15/25 5-325] Linezolid [Zyvox] 600 mg PO Q12H 12 Days #24 tab 01/15/25 carvediloL [Coreg] 3.125 mg PO BID-W/MEALS 30 Days 01/15/25 #60 tab polyethylene glycoL 3350 [Miralax] 17 gm PO HS #30 packet 01/15/25 Allergies Allergy/AdvReac Type Severity Reaction Status Date / Time amoxicillin [From Augmentin] Allergy Anaphylaxis Verified 01/05/25 10:08 /rash/hives cefprozil [From Cefzil] Allergy Anaphylaxis Verified 01/05/25 10:08 /rash/hives clavulanic acid Allergy Anaphylaxis Verified 01/05/25 10:08 [From Augmentin] /rash/hives sulfamethoxazole Allergy Anaphylaxis Verified 01/05/25 10:08 [From Bactrim] /rash/hives trimethoprim [From Bactrim] Allergy Anaphylaxis Verified 01/05/25 10:08 /rash/hives Review of Systems ROS Statement: Those systems with pertinent positive or pertinent negative responses have been documented in the HPI. ROS Other: All systems not noted in ROS Statement are negative. Past Medical History Past Medical History: Asthma, Coronary Artery Disease (CAD), Chest Pain / Angina, Heart Failure, Diabetes Mellitus, GERD/Reflux, Hyperlipidemia, Hypertension, Myocardial Infarction (IA), Osteoarthritis (OA), Pneumonia, Renal Disease, Syncope Additional Past Medical History / Comment(s): [place] 1997, 2004, 2008, CARDIAC ARREST 2016,GOUT, SPINAL STENOSIS, BRONCHITIS, CONSTIPATION, HX OF DIZZINESS & FALLS, AORTIC STENOSIS, KIDNEY FAILURE STAGE 3-B, PACER/AICD, Fatigue, very SOB w/exertion recently. Aortic Valve Replacement Dec, 2019. 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 Date of Last Stent Placement:: UNKNOWN Type of Cardiac Device: AICD Device Placement Date:: 10-05-16 chest No Paper Just Vapor Past Psychological History: Anxiety, Depression Smoking Status: Never smoker Past Alcohol Use History: Occasional Past Drug Use History: None Reported - Past Family History Mother Family Medical History: No Reported History Additional Family Medical History / Comment(s): . General Exam Limitations: no limitations General appearance: alert, in no apparent distress Head exam: Present: atraumatic, normocephalic, normal inspection Eye exam: Present: normal appearance, PERRL, EOMI. Absent: scleral icterus, conjunctival injection, periorbital swelling ENT exam: Present: normal exam, mucous membranes moist Neck exam: Present: normal inspection. Absent: tenderness, meningismus, lymphadenopathy Respiratory exam: Present: normal lung sounds bilaterally. Absent: respiratory distress, wheezes, rales, rhonchi, stridor Cardiovascular Exam: Present: regular rate, normal rhythm, normal heart sounds. Absent: systolic murmur, diastolic murmur, rubs, gallop, clicks GI/Abdominal exam: Present: soft, normal bowel sounds. Absent: distended, tenderness, guarding, rebound, rigid Extremities exam: Present: normal inspection, full ROM, normal capillary refill. Absent: tenderness, pedal edema, joint swelling, calf tenderness Back exam: Present: normal inspection Neurological exam: Present: alert, oriented X3, CN II-XII intact Psychiatric exam: Present: normal affect, normal mood Skin exam: Present: warm, dry, intact, normal color. Absent: rash Course Vital Signs 01/04/25 01/04/25 01/04/25 15:25 18:37 19:33 Temperature 97.7 F Pulse Rate 68 61 68 Respiratory 18 17 18 Rate Blood Pressure 153/83 118/57 110/49 O2 Sat by Pulse 97 99 95 Oximetry 01/04/25 22:25 Temperature 98.3 F Pulse Rate 61 Respiratory 18 Rate Blood Pressure 104/58 O2 Sat by Pulse 98 Oximetry - Reevaluation(s) Reevaluation #1: 01/04/25 17:32 Medical records reviewed Reevaluation #2: 01/04/25 20:03 Patient's symptoms improved here in the ER Reevaluation #3: 01/04/25 20:03 Patient informed of results questions answered Reevaluation #4: Was pt. sent in by a medical professional or institution (, [facility], [facility], urgent care, hospital, or long-term...) When possible be specific @ -no Did you speak to anyone other than the patient for history (EMS, parent, family, police, friend...)? What history was obtained from this source @ -no Did you review nursing and triage notes (agree or disagree)? Why? @ -agree Are old charts reviewed (outside hosp., previous admission, EMS record, old EKG, old radiological studies, urgent care reports/EKG's, long-term records)? Report findings @ -yes Differential Diagnosis (chest pain, altered mental status, abdominal pain women, abdominal pain men, vaginal bleeding, weakness, fever, dyspnea, syncope, headache, dizziness, GI bleed, back pain, seizure, CVA, palpatations, mental health, musculoskeletal)? @ -prior EKG interpreted by me (3pts min.). @ -yes X-rays interpreted by me (1pt min.). @ -no CT interpreted by me (1pt min.). @ -no U/S interpreted by me (1pt. min.). @ -no What testing was considered but not performed or refused? (CT, X-rays, U/S, labs)? Why? @ -none What meds were considered but not given or refused? Why? @ -none Did you discuss the management of the patient with other professionals (professionals i.e. [facility] Ervin, [facility], lab, RT, psych nurse, licensed master social worker, before school babysitter, teacher, public health service officer, manager rn case)? Give summary @ -no Was smoking cessation discussed for >3mins.? @ -no Was critical care preformed (if so, how long)? @ -no Were there social determinants of health that impacted care today? How? (Homelessness, low income, unemployed, alcoholism, drug addiction, transportation, low edu. Level, literacy, decrease access to med. care, senior living, rehab)? @ -none Was there de-escalation of care discussed even if they declined (Discuss DNR or withdrawal of care, Hospice)? DNR status @ -no What co-morbidities impacted this encounter? (DM, HTN, Smoking, COPD, CAD, Cancer, CVA, ARF, Chemo, Hep., AIDS, mental health diagnosis, sleep apnea, morbid obesity)? @ -none Was patient admitted / discharged? Hospital course, mention meds given and route, prescriptions, significant lab abnormalities, going to OR and other pertinent info. @ - 74 female this patient will be admitted for significant urinary tract infection. Patient was admitted on IV antibiotics for 1 day to watch for cultures and then patient will follow-up with nephrostomy tube exchange on Saturday Admitted Undiagnosed new problem with uncertain prognosis? @ -no Drug Therapy requiring intensive monitoring for toxicity (Heparin, Nitro, Insulin, Cardizem)? @ -no Were any procedures done? @ -no Diagnosis/symptom? @ -UTI Acute, or Chronic, or Acute on Chronic? @ -Acute Uncomplicated (without systemic symptoms) or Complicated (systemic symptoms)? @ -Complicated Side effects of treatment? @ -no Exacerbation, Progression, or Severe Exacerbation? @ -exacerbation Poses a threat to life or bodily function? How? (Chest pain, USA, IA, pneumonia, PE, COPD, DKA, ARF, appy, cholecystitis, CVA, Diverticulitis, Homicidal, Suicida l, threat to staff... and all critical care pts) @ -yes significant UTI infection Reevaluation #5: Differential Abdominal Pain Women: Appendicitis, Cholecystitis, diverticulosis, ischemic bowel, pancreatitis, hepatitis, UTI, gastroenteritis, AAA, incarcerated hernia, bowel obstruction, constipation, inflammatory bowel, hepatitis, peptic ulcer disease, splenic infarction, perforated viscus, vulvitis, ovarian torsion, PID, kidney stone, placenta abruption, this is not meant to be an all-inclusive list - Consultations Consultation #1: Spoke with [facility] who agrees to admit this patient Medical Decision Making - Medical Decision Making 74 female this patient will be admitted for significant urinary tract infection. Patient was admitted on IV antibiotics for 1 day to watch for cultures and then patient will follow-up with nephrostomy tube exchange on Saturday - Lab Data Result diagrams: 01/15/25 06:57 01/15/25 06:57 Lab Results 01/04/25 01/04/25 01/04/25 Range/Units 16:20 16:20 16:20 WBC 6.32 (4.50-10.00) 10*3/uL RBC 3.53 L (4.10-5.20) 10*6/uL Hgb 11.4 L (12.0-15.0) g/dL Hct 33.5 L (37.2-46.3) % MCV 94.9 (80.0-97.0) fL MCH 32.3 H (27.0-32.0) pg MCHC 34.0 (32.0-37.0) g/dL Plt Count 176 (140-440) 10*3/uL MPV 10.2 (9.5-12.2) fL Immature Gran % (Auto) 0.3 % Neutrophils % 60.6 % Lymphocytes % 26.6 % Monocytes % 6.6 % Eosinophils % 5.4 % Basophils % 0.5 % Immature Gran # 0.02 (0.00-0.04) 10*3/uL Neutrophils # 3.83 (1.80-7.70) 10*3/uL Lymphocytes # 1.68 (0.90-5.00) 10*3/uL Monocytes # 0.42 (0.20-1.00) 10*3/uL Eosinophils # 0.34 (0.04-0.35) 10*3/uL Basophils # 0.03 (0.00-0.10) 10*3/uL PT 10.5 (10.0-12.5) sec INR 0.9 (<1.2) APTT 23.5 (22.0-30.0) sec Sodium 135 L (137-145) mmol/L Potassium 3.5 (3.5-5.1) mmol/L Chloride 104 (98-107) mmol/L Carbon Dioxide 23 (22-30) mmol/L Anion Gap 8 mmol/L BUN 27 H (7-17) mg/dL Creatinine 1.76 H (0.52-1.04) mg/dL Est GFR (CKD-EPI)AfAm 33 (>60 ml/min/1.73 sqM) Est GFR (CKD-EPI)NonAf 28 (>60 ml/min/1.73 sqM) Glucose 100 H (74-99) mg/dL Plasma Lactic Acid Gene (0.7-2.0) mmol/L Calcium 10.2 (8.4-10.2) mg/dL Phosphorus 3.0 (2.5-4.5) mg/dL Magnesium 1.8 (1.6-2.3) mg/dL Total Bilirubin 0.8 (0.2-1.3) mg/dL AST 20 (14-36) U/L ALT 13 (4-34) U/L Alkaline Phosphatase 116 (38-126) U/L Troponin I (0.000-0.034) ng/mL Total Protein 6.0 L (6.3-8.2) g/dL Albumin 3.6 (3.5-5.0) g/dL Urine Color Urine Appearance (Clear) Urine pH (5.0-8.0) Ur Specific [place] (1.001-1.035) Urine Protein (Negative) Urine Glucose (UA) (Negative) Urine Ketones (Negative) Urine Blood (Negative) Urine Nitrite (Negative) Urine Bilirubin (Negative) Urine Urobilinogen (<2.0) mg/dL Ur Leukocyte Esterase (Negative) Urine RBC (0-5) /hpf Urine WBC (0-5) /hpf Urine WBC Clumps (None) /hpf Ur Squamous Epith Cells (0-4) /hpf Urine Mucus (None) /hpf 01/04/25 01/04/25 01/04/25 Range/Units 16:20 16:20 17:35 WBC (4.50-10.00) 10*3/uL RBC (4.10-5.20) 10*6/uL Hgb (12.0-15.0) g/dL Hct (37.2-46.3) % MCV (80.0-97.0) fL MCH (27.0-32.0) pg MCHC (32.0-37.0) g/dL Plt Count (140-440) 10*3/uL MPV (9.5-12.2) fL Immature Gran % (Auto) % Neutrophils % % Lymphocytes % % Monocytes % % Eosinophils % % Basophils % % Immature Gran # (0.00-0.04) 10*3/uL Neutrophils # (1.80-7.70) 10*3/uL Lymphocytes # (0.90-5.00) 10*3/uL Monocytes # (0.20-1.00) 10*3/uL Eosinophils # (0.04-0.35) 10*3/uL Basophils # (0.00-0.10) 10*3/uL PT (10.0-12.5) sec INR (<1.2) APTT (22.0-30.0) sec Sodium (137-145) mmol/L Potassium (3.5-5.1) mmol/L Chloride (98-107) mmol/L Carbon Dioxide (22-30) mmol/L Anion Gap mmol/L BUN (7-17) mg/dL Creatinine (0.52-1.04) mg/dL Est GFR (CKD-EPI)AfAm (>60 ml/min/1.73 sqM) Est GFR (CKD-EPI)NonAf (>60 ml/min/1.73 sqM) Glucose (74-99) mg/dL Plasma Lactic Acid Gene 0.9 (0.7-2.0) mmol/L Calcium (8.4-10.2) mg/dL Phosphorus (2.5-4.5) mg/dL Magnesium (1.6-2.3) mg/dL Total Bilirubin (0.2-1.3) mg/dL AST (14-36) U/L ALT (4-34) U/L Alkaline Phosphatase (38-126) U/L Troponin I 0.017 (0.000-0.034) ng/mL Total Protein (6.3-8.2) g/dL Albumin (3.5-5.0) g/dL Urine Color Colorless Urine Appearance Turbid H (Clear) Urine pH 7.0 (5.0-8.0) Ur Specific [place] 1.009 (1.001-1.035) Urine Protein 2+ H (Negative) Urine Glucose (UA) Negative (Negative) Urine Ketones Negative (Negative) Urine Blood Moderate H (Negative) Urine Nitrite Negative (Negative) Urine Bilirubin Negative (Negative) Urine Urobilinogen <2.0 (<2.0) mg/dL Ur Leukocyte Esterase Large H (Negative) Urine RBC 30 H (0-5) /hpf Urine WBC >182 H (0-5) /hpf Urine WBC Clumps Occasional H (None) /hpf Ur Squamous Epith Cells <1 (0-4) /hpf Urine Mucus Rare H (None) /hpf - EKG Data -: EKG Interpreted by Me (EKG is sinus 64 IN 197 QRS 106 QTc 436) Disposition Clinical Impression: Dehydration, WENDY (acute kidney injury), CKD (chronic kidney disease), UTI (urinary tract infection) Disposition: ADMITTED IP TO THIS HOSP Condition: Fair Is patient prescribed a controlled substance at d/c from ED?: No Time of Disposition: 20:00
[2025-01-04 17:34] LABS: Basophils # (A) 0.03 10*3/uL (0.00-0.10); Basophils % (A) 0.5 %; Eosinophils # (A) 0.34 10*3/uL (0.04-0.35); Eosinophils % (A) 5.4 %; HCT 33.5 % (37.2-46.3); HGB 11.4 g/dL (12.0-15.0); Lymphocytes # (A) 1.68 10*3/uL (0.90-5.00); Lymphocytes % (A) 26.6 %; MCH 32.3 pg (27.0-32.0); MCV 94.9 fL (80.0-97.0); Mean Platelet Volume 10.2 fL (9.5-12.2); Monocytes # (A) 0.42 10*3/uL (0.20-1.00); Monocytes % (A) 6.6 %; Neutrophils # (A) 3.83 10*3/uL (1.80-7.70); Neutrophils % (A) 60.6 %; Platelet Count 176 10*3/uL (140-440); RBC 3.53 10*6/uL (4.10-5.20); RDW 14.5 % (11.5-14.5); WBC 6.32 10*3/uL (4.50-10.00)
[2025-01-04] MEDS: SODIUM CHLORIDE 0.9% 1,000 ML IV ONE (17:35)
[2025-01-04] MEDS: MORPHINE SULFATE 4 MG/ML SYRINGE IVP STA (17:36)
[2025-01-04 17:44] LABS: INR 0.9 (<1.2); Partial Thromboplastin Time 23.5 sec (22.0-30.0); Prothrombin Time 10.5 sec (10.0-12.5)
[2025-01-04 18:01] LABS: ALT 13 U/L (4-34); AST 20 U/L (14-36); African American GFR (CKD) 33 (>60 ml/min/1.73 sqM); Albumin 3.6 g/dL (3.5-5.0); Alkaline Phosphatase 116 U/L (38-126); Anion Gap 8 mmol/L; Blood Urea Nitrogen 27 mg/dL (7-17); Calcium 10.2 mg/dL (8.4-10.2); Carbon Dioxide 23 mmol/L (22-30); Chloride 104 mmol/L (98-107); Glucose 100 mg/dL (74-99); Magnesium 1.8 mg/dL (1.6-2.3); Non-African American GFR(CKD) 28 (>60 ml/min/1.73 sqM); Potassium 3.5 mmol/L (3.5-5.1); Sodium 135 mmol/L (137-145); Total Bilirubin 0.8 mg/dL (0.2-1.3)
[2025-01-04 19:22] LABS: Appearance,Urine Turbid (Clear); Bilirubin,Urine Negative (Negative); Blood,Urine Moderate (Negative); Color,Urine Colorless; Glucose,Urine (UA) Negative (Negative); Ketones,Urine Negative (Negative); Leukocyte Esterase,Urine Large (Negative); Mucus,Urine Rare /hpf; Nitrite,Urine Negative (Negative); Protein,Urine 2+ (Negative); RBC,Urine 30 /hpf (0-5); Specific Gravity,Urine 1.009 (1.001-1.035); Squamous Epithelial Cell,Urine <1 /hpf (0-4); Urobilinogen,Urine <2.0 mg/dL (<2.0); WBC,Urine >182 /hpf (0-5)
[2025-01-04] MEDS: LEVOFLOXACIN 750MG-D5W PMX 750 MG in DEXTROSE/WATER 1 150ML.BAG IVPB STA (19:41)
[2025-01-04] MEDS ORDERED: NALOXONE 0.4 MG/ML 1 ML VIAL IV PRN (20:01)
[2025-01-04] MEDS: SODIUM CHLORIDE 0.9% 1,000 ML IV SCH (20:19)
[2025-01-05] MEDS: MORPHINE SULFATE 4 MG/ML SYRINGE IV PRN (00:54)
[2025-01-05 07:22] LABS: Glucose,Whole Blood 111 mg/dL (70-110)
[2025-01-05] MEDS ORDERED: ACETAMINOPHEN TAB 500 MG TAB PO PRN ×2 (10:24→10:45)
[2025-01-05] MEDS ORDERED: DEXTROSE 50% SYRINGE 50 ML IVP PRN ×2 (10:26)
[2025-01-05 10:32] LABS: HCT 32.2 % (37.2-46.3); HGB 10.2 g/dL (12.0-15.0); MCH 31.4 pg (27.0-32.0); MCHC 31.7 g/dL (32.0-37.0); MCV 99.1 FL (80.0-97.0); Mean Platelet Volume 10.5 FL (9.5-12.2); NRBC Per 100 WBC 0 X 10*3/uL (0.00-0.01); Platelet Count 162 X 10*3/uL (140-440); RBC 3.25 X 10*6/uL (4.10-5.20); WBC 4.85 X 10*3/uL (4.50-10.00)
[2025-01-05 10:33] LABS: Basophils # (A) 0.02 X 10*3/uL (0.00-0.10); Basophils % (A) 0.4 %; Eosinophils # (A) 0.32 X 10*3/uL (0.04-0.35); Eosinophils % (A) 6.6 %; Lymphocytes % (A) 35.1 %; Monocytes # (A) 0.38 X 10*3/uL (0.20-1.00); Monocytes % (A) 7.8 %; Neutrophils # (A) 2.41 X 10*3/uL (1.80-7.70); Neutrophils % (A) 49.7 %
[2025-01-05 10:56] LABS: ALT 11 U/L (8-44); AST 17 U/L (13-35); Albumin 3.4 g/dL (3.8-4.9); Albumin/Globulin Ratio 1.89 Ratio (1.60-3.17); Alkaline Phosphatase 103 U/L (41-126); BUN/Creat Ratio 14.41 Ratio (12.00-20.00); Blood Urea Nitrogen 24.5 mg/dL (9.0-27.0); Calcium 9.5 mg/dL (8.7-10.3); Carbon Dioxide 22.4 mmol/L (21.6-31.8); Chloride 104 mmol/L (96-109); Globulin 1.8 g/dL (1.6-3.3); Glucose 122 mg/dL (70-110); Magnesium 1.9 mg/dL (1.5-2.4); Phosphorus 3.2 mg/dL (2.4-5.1); Potassium 3.7 mmol/L (3.5-5.5); Sodium 136 mmol/L (135-145); Total Bilirubin 0.2 mg/dL (0.3-1.2); Total Protein 5.2 g/dL (6.2-8.2)
[2025-01-05] MEDS: ISOSORBIDE MONONITRATE ER 60 MG TAB.ER.24H PO SCH (12:01)
[2025-01-05] MEDS: FLUoxetine HCL 20 MG CAP PO SCH (12:01)
[2025-01-05] MEDS: HYDROcodone/APAP 5-325MG 1 EACH TAB PO PRN (12:01)
[2025-01-05] MEDS: carvediloL 12.5 MG TAB PO SCH (12:02)
[2025-01-05] MEDS: NYSTATIN 100,000 UNIT/GM POWD 15 GM TOPICAL SCH (12:02)
[2025-01-05 12:03] LABS: Glucose,Whole Blood 233 mg/dL (70-110)
[2025-01-05] MEDS: NYSTATIN 100,000UNIT/GM CREAM 30 GM TUBE TOPICAL SCH (12:03)
[2025-01-05] MEDS: RANOLAZINE 500 MG TAB.ER.12H PO SCH (12:03)
[2025-01-05] MEDS: INSULIN LISPRO (HumaLOG) 100 UNIT/ML 10 mL VL SQ SCH (12:43)
[2025-01-05 17:31] LABS: Glucose,Whole Blood 194 mg/dL (70-110)
[2025-01-05] MEDS: AZTREONAM 2 GM in SODIUM CHLORIDE 0.9% 100 ML IVPB SCH (17:44)
[2025-01-05 20:30] LABS: Glucose,Whole Blood 226 mg/dL (70-110)
[2025-01-05] MEDS: carvediloL 6.25 MG TAB PO SCH (21:37)
[2025-01-05] MEDS: allopurinoL 300 MG TAB PO SCH (21:37)
[2025-01-05] MEDS: MONTELUKAST 10 MG TAB PO SCH (21:38)
[2025-01-05] MEDS: INSULIN GLARGINE (LANTUS) 100 UNIT/ML SYR SQ SCH (21:39)
--- NOTE | 2025-01-05 23:02 | P.CONS ---
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 patient now presenting to [facility] ER concerning for foul-smelling urine from her left nephrostomy tube and having pa in to the left flank area patient symptom has been getting worse the last few days describing the pain to be moderate intense without radiation patient denies high-grade fever or any chills patient denies having any chest pain shortness with or cough nausea but no vomiting diarrhea episode of diarrhea on presentation to the hospital patient was afebrile no fever have been called subsequently patient was not tachycardic hypotensive or hypoxic or need for supplemental oxygen patient did have a white count of 4.85 creatinine is 1.7 did have a positive UA with large leukocyte esterase more than 182 WBC patient did have penicillin and cephalosporin allergy she received a dose of Levaquin has been admitted to the hospital infectious disease was consulted for further management of antibiotic therapy Review of Systems Positive point and negatives has been mentioned in the HPI, complete review of systems was performed and all other systems are negative Past Medical History Past Medical History: Asthma, Coronary Artery Disease (CAD), Chest Pain / Angina, Heart Failure, Diabetes Mellitus, GERD/Reflux, Hyperlipidemia, Hyperte nsion, Myocardial Infarction ([place]), Osteoarthritis (OA), Pneumonia, Renal Disease, Syncope Additional Past Medical History / Comment(s): [place] 1997, 2004, 2008, CARDIAC ARREST 2016,GOUT, SPINAL STENOSIS, BRONCHITIS, CONSTIPATION, HX OF DIZZINESS & FALLS, AORTIC STENOSIS, KIDNEY FAILURE STAGE 5, PACER/AICD, Fatigue, very SOB w/exertion recently. Aortic Valve Replacement Dec, 2019. 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 Date of Last Stent Placement:: UNKNOWN Type of Cardiac Device: AICD Device Placement Date:: 10-05-16 lt chest Delivery Hero Past Psychological History: Anxiety, Depression Additional Psychological History / Comment(s): . Smoking Status: Never smoker Past Alcohol Use History: Occasional Past Drug Use History: None Reported - Past Family History Mother Family Medical History: No Reported History Additional Family Medical History / Comment(s): . Medications and Allergies Home Medications Medication Instructions Recorded Confirmed Type Famotidine [Pepcid] 20 mg PO HS 06/20/16 01/05/25 History Montelukast [Singulair] 10 mg PO HS 06/20/16 01/05/25 History allopurinoL [Zyloprim] 300 mg PO HS 06/20/16 01/05/25 History Evolocumab [Repatha Syringe] 140 mg SQ Q14D 10/05/19 01/05/25 History Insulin Glargine,Hum.rec.anlog 10 units SQ BID 02/21/23 01/05/25 History [Lantus Solostar Pen] Insulin Lispro [humaLOG Kwikpen] See Protocol SQ TID-W/MEALS 02/21/23 01/05/25 History Ranolazine [Ranexa] 500 mg PO BID 02/21/23 01/05/25 History Aspirin EC [Ecotrin Low Dose] 81 mg PO DAILY 03/02/24 01/05/25 History FLUoxetine HCL [PROzac] 20 mg PO DAILY 03/02/24 01/05/25 History Nystatin 100,000 Unit/gm Powd 1 applic TOPICAL BID 10/18/24 01/05/25 History [Mycostatin Powder] carvediloL [Coreg*] 12.5 mg PO DAILY #30 tab 10/21/24 01/05/25 Rx Acetaminophen Tab [Tylenol Tab] 1,000 mg PO BID 01/05/25 01/05/25 History Acetaminophen Tab [Tylenol Tab] 1,000 mg PO Q6HR PRN 01/05/25 01/05/25 History Furosemide [Lasix] 40 mg PO BID 01/05/25 01/05/25 History Isosorbide Mononitrate ER [Imdur] 60 mg PO BID 01/05/25 01/05/25 History Nystatin 100,000Unit/gm Cream 1 applic TOPICAL BID 01/05/25 01/05/25 History [Mycostatin Cream] carvediloL [Coreg] 6.25 mg PO HS 01/05/25 01/05/25 History Allergies Allergy/AdvReac Type Severity Reaction Status Date / Time amoxicillin [From Augmentin] Allergy Anaphylaxis Verified 01/05/25 10:08 /rash/hives cefprozil [From Cefzil] Allergy Anaphylaxis Verified 01/05/25 10:08 /rash/hives clavulanic acid Allergy Anaphylaxis Verified 01/05/25 10:08 [From Augmentin] /rash/hives sulfamethoxazole Allergy Anaphylaxis Verified 01/05/25 10:08 [From Bactrim] /rash/hives trimethoprim [From Bactrim] Allergy Anaphylaxis Verified 01/05/25 10:08 /rash/hives Physical Exam Vitals: Vital Signs Temp Pulse Pulse Resp BP BP Pulse Ox 01/05/25 12:50 98 F 66 20 120/80 98 01/05/25 12:14 106/61 01/05/25 11:19 98 01/05/25 08:00 97.4 F L 63 20 122/75 99 01/05/25 05:36 64 16 01/05/25 01:17 97.6 F 64 16 113/69 98 01/04/25 23:10 97.9 F 59 L 16 116/72 97 01/04/25 22:25 98.3 F 61 18 104/58 98 01/04/25 19:33 68 18 110/49 95 01/04/25 18:37 61 17 118/57 99 01/04/25 15:25 97.7 F 68 18 153/83 97 FiO2 01/05/25 12:50 01/05/25 12:14 01/05/25 11:19 21 01/05/25 08:00 01/05/25 05:36 01/05/25 01:17 01/04/25 23:10 01/04/25 22:25 01/04/25 19:33 01/04/25 18:37 01/04/25 15:25 Intake and Output 01/04/25 01/05/25 01/05/25 22:59 06:59 14:59 Other: Voiding Method Ileal Conduit (Left) # Voids 1 Weight 83.915 kg 85.4 kg GENERAL DESCRIPTION: Elderly female lying in bed, no distress. No tachypnea or accessory muscle of respiration use. HEENT: Shows Pallor , no scleral icterus. Oral mucous membrane is dry. No pharyngeal erythema or thrush NECK: Trachea central, no thyromegaly. LUNGS: Unlabored breathing. Clear to auscultation anteriorly. No wheeze or crackle. HEART: S1, S2, regular rate and rhythm. No loud murmur ABDOMEN: Soft, no tenderness , guarding or rigidity, no organomegaly EXTREMITIES: No edema of feet. SKIN: No rash, no masses palpable. NEUROLOGICAL: The patient is awake, alert, oriented x3, mood and affect normal. Results CBC & Chem 7: 01/05/25 06:17 01/05/25 06:17 Labs: Abnormal Lab Results - Last 24 Hours (Table) 01/04/25 01/04/25 01/04/25 Range/Units 16:20 16:20 17:35 RBC 3.53 L (4.10-5.20) 10*6/uL Hgb 11.4 L (12.0-15.0) g/dL Hct 33.5 L (37.2-46.3) % MCV (80.0-97.0) FL MCH 32.3 H (27.0-32.0) pg MCHC (32.0-37.0) g/dL RDW (11.5-14.5) % Sodium 135 L (137-145) mmol/L BUN 27 H (7-17) mg/dL Creatinine 1.76 H (0.52-1.04) mg/dL Est GFR (CKD-EPI) (>=60) Glucose 100 H (74-99) mg/dL POC Glucose (mg/dL) (70-110) mg/dL Total Bilirubin (0.3-1.2) mg/dL Total Protein 6.0 L (6.3-8.2) g/dL Albumin (3.8-4.9) g/dL Urine Appearance Turbid H (Clear) Urine Protein 2+ H (Negative) Urine Blood Moderate H (Negative) Ur Leukocyte Esterase Large H (Negative) Urine RBC 30 H (0-5) /hpf Urine WBC >182 H (0-5) /hpf Urine WBC Clumps Occasional H (None) /hpf Urine Mucus Rare H (None) /hpf 01/05/25 01/05/25 01/05/25 Range/Units 06:17 06:17 07:18 RBC 3.25 L (4.10-5.20) 10*6/uL Hgb 10.2 L (12.0-15.0) g/dL Hct 32.2 L (37.2-46.3) % MCV 99.1 H (80.0-97.0) FL MCH (27.0-32.0) pg MCHC 31.7 L (32.0-37.0) g/dL RDW 15.0 H (11.5-14.5) % Sodium (137-145) mmol/L BUN (7-17) mg/dL Creatinine 1.7 H (0.52-1.04) mg/dL Est GFR (CKD-EPI) 31 L (>=60) Glucose 122 H (74-99) mg/dL POC Glucose (mg/dL) 111 H (70-110) mg/dL Total Bilirubin 0.2 L (0.3-1.2) mg/dL Total Protein 5.2 L (6.3-8.2) g/dL Albumin 3.4 L (3.8-4.9) g/dL Urine Appearance (Clear) Urine Protein (Negative) Urine Blood (Negative) Ur Leukocyte Esterase (Negative) Urine RBC (0-5) /hpf Urine WBC (0-5) /hpf Urine WBC Clumps (None) /hpf Urine Mucus (None) /hpf 01/05/25 Range/Units 12:02 RBC (4.10-5.20) 10*6/uL Hgb (12.0-15.0) g/dL Hct (37.2-46.3) % MCV (80.0-97.0) FL MCH (27.0-32.0) pg MCHC (32.0-37.0) g/dL RDW (11.5-14.5) % Sodium (137-145) mmol/L BUN (7-17) mg/dL Creatinine (0.52-1.04) mg/dL Est GFR (CKD-EPI) (>=60) Glucose (74-99) mg/dL POC Glucose (mg/dL) 233 H (70-110) mg/dL Total Bilirubin (0.3-1.2) mg/dL Total Protein (6.3-8.2) g/dL Albumin (3.8-4.9) g/dL Urine Appearance (Clear) Urine Protein (Negative) Urine Blood (Negative) Ur Leukocyte Esterase (Negative) Urine RBC (0-5) /hpf Urine WBC (0-5) /hpf Urine WBC Clumps (None) /hpf Urine Mucus (None) /hpf Assessment and Plan (1) Allergy to multiple antibiotics Current Visit: Yes Status: Acute Code(s): Z88.1 - ALLERGY STATUS TO OTHER ANTIBIOTIC AGENTS SNOMED Code(s): 095425109 (2) UTI (urinary tract infection) Current Visit: Yes Status: Acute Code(s): N39.0 - URINARY TRACT INFECTION, SITE NOT SPECIFIED SNOMED Code(s): 11960859 Plan: 1patient with a complicated history presented to hospital with cloudy urine foul-smelling and did have pain to the left flank area this patient did have history of nephrostomy placed in October 2024 with a significantly positive UA concerning for complicated UTI likely from enteric gram-negative pathogen 2patient with multiple antibiotic ALLERGIES that would limit the number of antibiotic safe to use 3will empirically start the patient on Azactam 2 g every 8 hourly while waiting for the culture to finalize Multiple question concern answered We will follow on clinical condition and cultures to further adjust medication if needed Thank you for this consultation we will follow the patient along with you Dictation was produced using [employer] dictation software. please excuse any grammatical, word or spelling errors. Time with Patient: Greater than 30
--- NOTE | 2025-01-06 00:33 | P.HPIM ---
History of Present Illness H&P Date: 01/05/25 This is a very pleasant 74-year-old female who presented to the emergency department with foul-smelling urine and drainage from the nephrostomy tube on the left with concerns of possible infection. Patient follows with Dr. Borges in the outpatient setting with a past medical history of asthma, coronary artery disease, chest pain with angina, heart failure, diabetes mellitus, GERD, hyperlipidemia, hypertension, previous myocardial infarction, osteoarthritis, renal disease with aortic stenosis chronic kidney disease stage V, previous pacer placement/depression. Patient is following with urology Dr. Clark outpatient who is arranging for a nephrectomy on January 26 at a [place] facility. Patient has been following with infectious disease along with urology and nephrology outpatient and is status post nephrostomy placement. Patient reports she has been having ongoing recurrent urinary tract infections and has been maintained on multiple antibiotics although presented with some abdominal pain and concerns for urinary tract infection grossly getting worse over the last few days. On admission labs were reviewed revealing a normal white count of 6.32, hemoglobin stable at 11.4, platelets 176, sodium 135 with a potassium of 3.5, BUN 27 and creatinine 1.76 which appears improved from previous readings in between 2 and 3 creatinine, magnesium 1.8, urinalysis performed showing turbid urine with protein light esterase. Patient was admitted for concerns of acute urinary tract infection and was given a dose of Levaquin. Patient evaluated this morning and have consulted urology along with nephrology and infectious disease. REVIEW OF SYSTEMS: CONSTITUTIONAL: No fever, no malaise, no fatigue. HEENT: No recent visual problems or hearing problems. Denied any sore throat. CARDIOVASCULAR: No chest pain, orthopnea, PND, no palpitations, no syncope. PULMONARY: No shortness of breath, no cough, no hemoptysis. GASTROINTESTINAL: No diarrhea, reports of nausea, no vomiting, reports diffuse abdominal pain. NEUROLOGICAL: No headaches, no weakness, no numbness. HEMATOLOGICAL: Denies any bleeding or petechiae. GENITOURINARY: Denies any burning micturition, frequency, or urgency. MUSCULOSKELETAL/RHEUMATOLOGICAL: Denies any joint pain, swelling, or any muscle pain. Reports of some left flank pain and tenderness at the nephrostomy site ENDOCRINE: Denies any polyuria or polydipsia. The rest of the 14-point review of systems is negative. PHYSICAL EXAMINATION: GENERAL: The patient is alert and oriented x3, not in any acute distress. Well developed, well nourished. HEENT: Pupils are round and equally reacting to light. EOMI. No scleral icterus. No conjunctival pallor. Normocephalic, atraumatic. No pharyngeal erythema. No thyromegaly. CARDIOVASCULAR: S1 and S2 present. No murmurs, rubs, or gallops. PULMONARY: Chest is clear to auscultation, no wheezing or crackles. ABDOMEN: Soft, nontender, nondistended, normoactive bowel sounds. No palpable organomegaly. MUSCULOSKELETAL: No joint swelling or deformity. EXTREMITIES: No cyanosis, clubbing, or pedal edema. NEUROLOGICAL: Gross neurological examination did not reveal any focal deficits. SKIN: No rashes. 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, status post left nephrostomy and tentatively scheduled for nephrectomy on January 26, 2025 at [place] History of recurrent urinary tract infections Acute urinary tract infection, present on admission with a largely abnormal urinalysis, foul-smelling drainage and decreased urinary output History of asthma in exacerbation Coronary artery disease history Acute on chronic kidney disease History of heart failure, unknown EF Diabetes mellitus type 2 History of GERD Hyperlipidemia Hypertension Previous myocardial infarctions History of osteoarthritis History of kidney failure stage V, again scheduled for nephrectomy on the left this month History of anxiety/depression Obesity with BMI of 39.3 aortic stenosis history and AICD placement with previous coronary artery bypass grafting and multiple stents previously GI prophylaxis DVT prophylaxis Full code Plan: Patient was admitted with concerns of foul-smelling odor and left nephrostomy follows with urology and nephrology closely along with infectious disease as patient has been hospitalized multiple times. Patient follows with urology outpatient and is being arranged for left nephrectomy at [facility] and tentatively scheduled for 01/26/2025 Home medications reviewed and resumed as appropriate Patient was given a dose of Levaquin with multiple significant allergic allergy to antibiotics, will consult infectious disease and appreciate input and recommendations. Culture is pending at this time Follow-up on repeat labs and replace electrolytes per protocol Continue monitoring Accu-Cheks AC and at bedtime and will adjust insulins accordingly Nephrology and urology consultation are pending at this time. The impression and plan of care has been dictated by Cassidy Blevins, Nurse Practitioner as directed. Dr. Lois MD I have performed a history and examination and MDM of this patient, discussed the same with the dictator, and agree with the dictator's assessment and plan as written ,documented as a scribe. Based on total visit time, I have performed more than 50% of the visit. Past Medical History Past Medical History: Asthma, Coronary Artery Disease (CAD), Chest Pain / Angina, Heart Failure, Diabetes Mellitus, GERD/Reflux, Hyperlipidemia, Hypertension, Myocardial Infarction ([place]), Osteoarthritis (OA), Pneumonia, Renal Disease, Syncope Additional Past Medical History / Comment(s): [place] 1997, 2003, 2007, CARDIAC ARREST 2016,GOUT, SPINAL STENOSIS, BRONCHITIS, CONSTIPATION, HX OF DIZZINESS & FALLS, AORTIC STENOSIS, KIDNEY FAILURE STAGE 5, PACER/AICD, Fatigue, very SOB w/exertion recently. Aortic Valve Replacement Dec, 2019. 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 Date of Last Stent Placement:: UNKNOWN Type of Cardiac Device: AICD Device Placement Date:: 10-05-16 [facility] Past Psychological History: Anxiety, Depression Additional Psychological History / Comment(s): . Smoking Status: Never smoker Past Alcohol Use History: Occasional Past Drug Use History: None Reported - Past Family History Mother Family Medical History: No Reported History Additional Family Medical History / Comment(s): . Medications and Allergies Home Medications Medication Instructions Recorded Confirmed Type Famotidine [Pepcid] 20 mg PO HS 06/20/16 01/05/25 History Montelukast [Singulair] 10 mg PO HS 06/20/16 01/05/25 History allopurinoL [Zyloprim] 300 mg PO HS 06/20/16 01/05/25 History Evolocumab [Repatha Syringe] 140 mg SQ Q14D 10/05/19 01/05/25 History Insulin Glargine,Hum.rec.anlog 10 units SQ BID 02/21/23 01/05/25 History [Lantus Solostar Pen] Insulin Lispro [humaLOG Kwikpen] See Protocol SQ TID-W/MEALS 02/21/23 01/05/25 History Ranolazine [Ranexa] 500 mg PO BID 02/21/23 01/05/25 History Aspirin EC [Ecotrin Low Dose] 81 mg PO DAILY 03/02/24 01/05/25 History FLUoxetine HCL [PROzac] 20 mg PO DAILY 03/02/24 01/05/25 History Nystatin 100,000 Unit/gm Powd 1 applic TOPICAL BID 10/18/24 01/05/25 History [Mycostatin Powder] carvediloL [Coreg*] 12.5 mg PO DAILY #30 tab 10/21/24 01/05/25 Rx Acetaminophen Tab [Tylenol Tab] 1,000 mg PO BID 01/05/25 01/05/25 History Acetaminophen Tab [Tylenol Tab] 1,000 mg PO Q6HR PRN 01/05/25 01/05/25 History Furosemide [Lasix] 40 mg PO BID 01/05/25 01/05/25 History Isosorbide Mononitrate ER [Imdur] 60 mg PO BID 01/05/25 01/05/25 History Nystatin 100,000Unit/gm Cream 1 applic TOPICAL BID 01/05/25 01/05/25 History [Mycostatin Cream] carvediloL [Coreg] 6.25 mg PO HS 01/05/25 01/05/25 History Allergies Allergy/AdvReac Type Severity Reaction Status Date / Time amoxicillin [From Augmentin] Allergy Anaphylaxis Verified 01/05/25 10:08 /rash/hives cefprozil [From Cefzil] Allergy Anaphylaxis Verified 01/05/25 10:08 /rash/hives clavulanic acid Allergy Anaphylaxis Verified 01/05/25 10:08 [From Augmentin] /rash/hives sulfamethoxazole Allergy Anaphylaxis Verified 01/05/25 10:08 [From Bactrim] /rash/hives trimethoprim [From Bactrim] Allergy Anaphylaxis Verified 01/05/25 10:08 /rash/hives Physical Exam Vitals: Vital Signs Temp Pulse Pulse Resp BP BP Pulse Ox 01/05/25 08:00 97.4 F L 63 20 122/75 99 01/05/25 05:36 64 16 01/05/25 01:17 97.6 F 64 16 113/69 98 01/04/25 23:10 97.9 F 59 L 16 116/72 97 01/04/25 22:25 98.3 F 61 18 104/58 98 01/04/25 19:33 68 18 110/49 95 01/04/25 18:37 61 17 118/57 99 01/04/25 15:25 97.7 F 68 18 153/83 97 Intake and Output 01/04/25 01/05/25 01/05/25 22:59 06:59 14:59 Other: # Voids 1 Weight 83.915 kg 85.4 kg Results CBC & Chem 7: 01/05/25 06:17 01/05/25 06:17 Labs: Abnormal Lab Results - Last 24 Hours (Table) 01/04/25 01/04/25 01/04/25 Range/Units 16:20 16:20 17:35 RBC 3.53 L (4.10-5.20) 10*6/uL Hgb 11.4 L (12.0-15.0) g/dL Hct 33.5 L (37.2-46.3) % MCH 32.3 H (27.0-32.0) pg Sodium 135 L (137-145) mmol/L BUN 27 H (7-17) mg/dL Creatinine 1.76 H (0.52-1.04) mg/dL Glucose 100 H (74-99) mg/dL POC Glucose (mg/dL) (70-110) mg/dL Total Protein 6.0 L (6.3-8.2) g/dL Urine Appearance Turbid H (Clear) Urine Protein 2+ H (Negative) Urine Blood Moderate H (Negative) Ur Leukocyte Esterase Large H (Negative) Urine RBC 30 H (0-5) /hpf Urine WBC >182 H (0-5) /hpf Urine WBC Clumps Occasional H (None) /hpf Urine Mucus Rare H (None) /hpf 01/05/25 Range/Units 07:18 RBC (4.10-5.20) 10*6/uL Hgb (12.0-15.0) g/dL Hct (37.2-46.3) % MCH (27.0-32.0) pg Sodium (137-145) mmol/L BUN (7-17) mg/dL Creatinine (0.52-1.04) mg/dL Glucose (74-99) mg/dL POC Glucose (mg/dL) 111 H (70-110) mg/dL Total Protein (6.3-8.2) g/dL Urine Appearance (Clear) Urine Protein (Negative) Urine Blood (Negative) Ur Leukocyte Esterase (Negative) Urine RBC (0-5) /hpf Urine WBC (0-5) /hpf Urine WBC Clumps (None) /hpf Urine Mucus (None) /hpf Thrombosis Risk Factor Assmnt - Choose All That Apply Any of the Below Risk Factors Present?: Yes Each Factor Represents 1 point: Obesity (BMI >25) Other Risk Factors: Yes Each Risk Factor Represents 2 Points: Age 61-74 years Thrombosis Risk Factor Assessment Total Risk Factor Score: 3 Thrombosis Risk Factor Assessment Level: Moderate Risk
[2025-01-06 06:52] LABS: ALT 12 U/L (4-34); AST 19 U/L (14-36); African American GFR (CKD) 31 (>60 ml/min/1.73 sqM); Albumin 3.5 g/dL (3.5-5.0); Albumin/Globulin Ratio 1.4; Alkaline Phosphatase 122 U/L (38-126); Anion Gap 10 mmol/L; Blood Urea Nitrogen 36 mg/dL (7-17); Calcium 10.6 mg/dL (8.4-10.2); Carbon Dioxide 23 mmol/L (22-30); Chloride 101 mmol/L (98-107); Globulin 2.5 g/dL; Glucose 177 mg/dL (74-99); Magnesium 2.1 mg/dL (1.6-2.3); Non-African American GFR(CKD) 27 (>60 ml/min/1.73 sqM); Potassium 4.4 mmol/L (3.5-5.1); Sodium 134 mmol/L (137-145); Total Bilirubin 0.5 mg/dL (0.2-1.3)
[2025-01-06 07:27] LABS: Glucose,Whole Blood 173 mg/dL (70-110)
[2025-01-06] MEDS: PANTOPRAZOLE 40 MG TABLET PO SCH (08:39)
[2025-01-06] MEDS: HEPARIN SODIUM,PORCINE 5,000 UNIT/ML 1 ML VIAL SQ SCH (08:40)
[2025-01-06 10:32] LABS: Basophils # (A) 0.03 X 10*3/uL (0.00-0.10); Basophils % (A) 0.6 %; Eosinophils # (A) 0.33 X 10*3/uL (0.04-0.35); Eosinophils % (A) 6.2 %; HCT 32.8 % (37.2-46.3); HGB 10.8 g/dL (12.0-15.0); Lymphocytes % (A) 24.3 %; MCH 32.7 pg (27.0-32.0); MCHC 32.9 g/dL (32.0-37.0); MCV 99.4 FL (80.0-97.0); Mean Platelet Volume 10.4 FL (9.5-12.2); Monocytes # (A) 0.43 X 10*3/uL (0.20-1.00); NRBC Per 100 WBC 0 X 10*3/uL (0.00-0.01); Neutrophils # (A) 3.25 X 10*3/uL (1.80-7.70); Neutrophils % (A) 60.5 %; Platelet Count 159 X 10*3/uL (140-440); WBC 5.36 X 10*3/uL (4.50-10.00)
[2025-01-06 12:40] LABS: Glucose,Whole Blood 182 mg/dL (70-110)
--- NOTE | 2025-01-06 13:08 | P.NPCON ---
History of Present Illness - Reason for Consult chronic renal failure - History of Present Illness Patient is a 74-year-old female with history of type 2 diabetes, coronary artery disease, chronic kidney disease stage IIIb with baseline creatinine about 1.4 to 1.7 mg/dL but most recently around 1.7 to 1.8 mg/dL. Patient has left hydronephrosis from ureteral obstruction from stricture and has a left neph rostomy tube placed recently. Nuclear scan showed only 15% function on the left kidney and therefore there are plans for left nephrectomy which is scheduled on January 26 at [facility]. Patient was admitted to the hospital with foul-smelling discharge from her nephrostomy. Patient did receive oral antibiotics as outpatient but there was no improvement. She denied any fever or chills No nausea vomiting abdominal pain or diarrhea. Serum creatinine doing at 1.7 to 1.8 mg/dL. It was 2.5 on 10/21/2024. Past Medical History Past Medical History: Asthma, Coronary Artery Disease (CAD), Chest Pain / Angina, Heart Failure, Diabetes Mellitus, GERD/Reflux, Hyperlipidemia, Hypertension, Myocardial Infarction ([place]), Osteoarthritis (OA), Pneumonia, Renal Disease, Syncope Additional Past Medical History / Comment(s): [place] 1997, 2003, 2008, CARDIAC ARREST 2016,GOUT, SPINAL STENOSIS, BRONCHITIS, CONSTIPATION, HX OF DIZZINESS & FALLS, AORTIC STENOSIS, KIDNEY FAILURE STAGE 5, PACER/AICD, Fatigue, very SOB w/exertion recently. Aortic Valve Replacement Dec, 2019. 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 Date of Last Stent Placement:: UNKNOWN Type of Cardiac Device: AICD Device Placement Date:: 10-05-16 [facility] [employer] Past Psychological History: Anxiety, Depression Additional Psychological History / Comment(s): . Smoking Status: Never smoker Past Alcohol Use History: Occasional Past Drug Use History: None Reported - Past Family History Mother Family Medical History: No Reported History Additional Family Medical History / Comment(s): . Medications and Allergies Home Medications Medication Instructions Recorded Confirmed Type Famotidine [Pepcid] 20 mg PO HS 06/20/16 01/05/25 History Montelukast [Singulair] 10 mg PO HS 06/20/16 01/05/25 History allopurinoL [Zyloprim] 300 mg PO HS 06/20/16 01/05/25 History Evolocumab [Repatha Syringe] 140 mg SQ Q14D 10/05/19 01/05/25 History Insulin Glargine,Hum.rec.anlog 10 units SQ BID 02/21/23 01/05/25 History [Lantus Solostar Pen] Insulin Lispro [humaLOG Kwikpen] See Protocol SQ TID-W/MEALS 02/21/23 01/05/25 History Ranolazine [Ranexa] 500 mg PO BID 02/21/23 01/05/25 History Aspirin EC [Ecotrin Low Dose] 81 mg PO DAILY 03/02/24 01/05/25 History FLUoxetine HCL [PROzac] 20 mg PO DAILY 03/02/24 01/05/25 History Nystatin 100,000 Unit/gm Powd 1 applic TOPICAL BID 10/18/24 01/05/25 History [Mycostatin Powder] carvediloL [Coreg*] 12.5 mg PO DAILY #30 tab 10/21/24 01/05/25 Rx Acetaminophen Tab [Tylenol Tab] 1,000 mg PO BID 01/05/25 01/05/25 History Acetaminophen Tab [Tylenol Tab] 1,000 mg PO Q6HR PRN 01/05/25 01/05/25 History Furosemide [Lasix] 40 mg PO BID 01/05/25 01/05/25 History Isosorbide Mononitrate ER [Imdur] 60 mg PO BID 01/05/25 01/05/25 History Nystatin 100,000Unit/gm Cream 1 applic TOPICAL BID 01/05/25 01/05/25 History [Mycostatin Cream] carvediloL [Coreg] 6.25 mg PO HS 01/05/25 01/05/25 History Allergies Allergy/AdvReac Type Severity Reaction Status Date / Time amoxicillin [From Augmentin] Allergy Anaphylaxis Verified 01/05/25 10:08 /rash/hives cefprozil [From Cefzil] Allergy Anaphylaxis Verified 01/05/25 10:08 /rash/hives clavulanic acid Allergy Anaphylaxis Verified 01/05/25 10:08 [From Augmentin] /rash/hives sulfamethoxazole Allergy Anaphylaxis Verified 01/05/25 10:08 [From Bactrim] /rash/hives trimethoprim [From Bactrim] Allergy Anaphylaxis Verified 01/05/25 10:08 /rash/hives Physical Exam Vitals: Vital Signs Temp Pulse Resp BP Pulse Ox 01/06/25 07:46 98.6 F 66 16 118/72 99 01/06/25 01:06 98.6 F 57 L 16 127/71 99 01/05/25 19:28 98.4 F 67 16 109/61 98 Intake and Output 01/05/25 01/06/25 01/06/25 22:59 06:59 14:59 Intake Total 200 Balance 200 Intake: Oral 200 Other: Voiding Method Ileal Conduit (Left) Toilet Ileal Conduit (Left) # Voids 2 1 Weight 86.9 kg Patient is awake, comfortable, no acute distress Examination of the heart S1 and S2 Examination of the lungs bilateral breath sounds are heard Abdomen is soft nontender Examination of lower extremities shows no evidence of edema 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 Acute kidney injury during last hospitalization in October 2024 with component of obstructive uropathy with left hydronephrosis status post left nephrostomy tube. Renal function is improved since October with creatinine down to 1.7 from 2.5 mg/dL on 10/21/2024. 2. Left hydronephrosis with left nephrostomy tube. Nuclear scan showed 15% function on the left kidney and there are plans for left nephrectomy. Patient is scheduled for surgery on January 26 at [facility] 3. UTI maintained on antibiotics. Patient has history of recurrent urine tract infection 4. Chronic kidney disease stage IIIb with baseline creatinine 1.4 to 1.7 mg/dL. Previous UA has been completely benign Plan: Add gentle IV hydration Continue with antibiotics Repeat labs in a.m. Thank you for the consultation. We will continue to follow the patient with you during her hospitalization.
--- NOTE | 2025-01-06 15:15 | P.PN ---
Subjective Progress Note Date: 01/06/25 This is a very pleasant 74-year-old female who presented to the emergency department with foul-smelling urine and drainage from the nephrostomy tube on the left with concerns of possible infection. Patient follows with Dr. Borges in the outpatient setting with a past medical history of asthma, coronary artery disease, chest pain with angina, heart failure, diabetes mellitus, GERD, hyperlipidemia, hypertension, previous myocardial infarction, osteoarthritis, renal disease with aortic stenosis chronic kidney disease stage V, previous pacer placement/depression. Patient is following with urology Dr. Clark outpatient who is arranging for a nephrectomy on January 26 at a [facility] facility. Patient has been following with infectious disease along with urology and nephrology outpatient and is status post nephrostomy placement. Patient reports she has been having ongoing recurrent urinary tract infections and has been maintained on multiple antibiotics although presented with some abdominal pain and concerns for urinary tract infection grossly getting worse over the last few days. On admission labs were reviewed revealing a normal white count of 6.32, hemoglobin stable at 11.4, platelets 176, sodium 135 with a potassium of 3.5, BUN 27 and creatinine 1.76 which appears improved from previous readings in between 2 and 3 creatinine, magnesium 1.8, urinalysis performed showing turbid urine with protein light esterase. Patient was admitted for concerns of acute urinary tract infection and was given a dose of Levaquin. Patient evaluated this morning and have consulted urology along with nephrology and infectious disease. 01/06/2025 Patient is evaluated in follow-up on the medical floor. Her urine culture from the nephrostomy is currently pending final micro sensitivities preliminary showing Corynebacterium stratum group. She does state that she has not had a bowel movement since Saturday and feels constipated. She usually uses Colace and Benefiber at home. She is okay with trialing MiraLAX. She is currently maintained on IV aztreonam with ID following closely. She is being hydrated with normal saline running at 70 mL/h. BUN today of 36 creatinine of 1.84. Sodium level of 134. Calcium of 10.6. REVIEW OF SYSTEMS: CONSTITUTIONAL: No fever, no malaise, no fatigue. HEENT: No recent visual problems or hearing problems. Denied any sore throat. CARDIOVASCULAR: No chest pain, orthopnea, PND, no palpitations, no syncope. PULMONARY: No shortness of breath, no cough, no hemoptysis. GASTROINTESTINAL: No diarrhea, reports of nausea, no vomiting, reports diffuse abdominal pain. NEUROLOGICAL: No headaches, no weakness, no numbness. PHYSICAL EXAMINATION: GENERAL: The patient is alert and oriented x3, not in any acute distress. Well developed, well nourished. HEENT: Pupils are round and equally reacting to light. EOMI. No scleral icterus. No conjunctival pallor. Normocephalic, atraumatic. No pharyngeal erythema. No thyromegaly. CARDIOVASCULAR: S1 and S2 present. No murmurs, rubs, or gallops. PULMONARY: Chest is clear to auscultation, no wheezing or crackles. ABDOMEN: Soft, nontender, nondistended, normoactive bowel sounds. No palpable organomegaly. MUSCULOSKELETAL: No joint swelling or deformity. EXTREMITIES: No cyanosis, clubbing, or pedal edema. NEUROLOGICAL: Gross neurological examination did not reveal any focal deficits. SKIN: No rashes. 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, status post left nephrostomy and tentatively scheduled for nephrectomy on January 26, 2025 at [facility] History of recurrent urinary tract infections Acute urinary tract infection, present on admission with a largely abnormal urinalysis, foul-smelling drainage and decreased urinary output Constipation History of asthma in exacerbation Coronary artery disease history Acute on chronic kidney disease History of heart failure, unknown EF Diabetes mellitus type 2 History of GERD Hyperlipidemia Hypertension Previous myocardial infarctions History of osteoarthritis History of kidney failure stage V, again scheduled for nephrectomy on the left this month History of anxiety/depression Obesity with BMI of 39.3 aortic stenosis history and AICD placement with previous coronary artery bypass grafting and multiple stents previously GI prophylaxis DVT prophylaxis Full code Plan: Patient was admitted with concerns of foul-smelling odor and left nephrostomy follows with urology and nephrology closely along with infectious disease as patient has been hospitalized multiple times. Patient follows with urology outpatient and is being arranged for left nephrectomy at [facility] and tentatively scheduled for 01/26/2025 Home medications reviewed and resumed as appropriate Patient was given a dose of Levaquin with multiple significant allergic allergy to antibiotics, will consult infectious disease Patient has been started on IV aztreonam, preliminary cultures are showing Corynebacterium species with recommendations from ID pending Follow-up on repeat labs and replace electrolytes per protocol Continue monitoring Accu-Cheks AC and at bedtime and will adjust insulins accordingly Continue normal saline at 70 mL/h and monitor renal function Pending urology consultation The impression and plan of care has been dictated by Nancy Story, Nurse Practitioner as directed. Dr. Lois MD I have performed a history and examination and MDM of this patient, discussed the same with the dictator, and agree with the dictator's assessment and plan as written ,documented as a scribe. Based on total visit time, I have performed more than 50% of the visit. Objective - Vital Signs Vital signs: Vital Signs Temp 98.3 F 01/06/25 13:10 Pulse 63 01/06/25 13:10 Resp 16 01/06/25 13:10 BP 103/64 01/06/25 13:10 Pulse Ox 98 01/06/25 13:10 FiO2 21 01/05/25 11:19 Intake & Output 01/05/25 01/06/25 01/06/25 18:59 06:59 18:59 Intake Total 200 Balance 200 Weight 86.9 kg Intake: Oral 200 Other: Voiding Method Ileal Conduit (Left) Ileal Conduit (Left) Toilet Ileal Conduit (Left) # Voids 2 1 - Labs CBC & Chem 7: 01/06/25 07:23 01/06/25 05:30 Labs: Abnormal Lab Results - Last 24 Hours (Table) 01/05/25 01/05/25 01/06/25 Range/Units 17:29 20:29 05:30 RBC (4.10-5.20) X 10*6/uL Hgb (12.0-15.0) g/dL Hct (37.2-46.3) % MCV (80.0-97.0) FL MCH (27.0-32.0) pg RDW (11.5-14.5) % Sodium 134 L (137-145) mmol/L BUN 36 H (7-17) mg/dL Creatinine 1.84 H (0.52-1.04) mg/dL Glucose 177 H (74-99) mg/dL POC Glucose (mg/dL) 194 H 226 H (70-110) mg/dL Calcium 10.6 H (8.4-10.2) mg/dL Total Protein 6.0 L (6.3-8.2) g/dL 01/06/25 01/06/25 01/06/25 Range/Units 07:23 07:26 12:38 RBC 3.30 L (4.10-5.20) X 10*6/uL Hgb 10.8 L (12.0-15.0) g/dL Hct 32.8 L (37.2-46.3) % MCV 99.4 H (80.0-97.0) FL MCH 32.7 H (27.0-32.0) pg RDW 15.0 H (11.5-14.5) % Sodium (137-145) mmol/L BUN (7-17) mg/dL Creatinine (0.52-1.04) mg/dL Glucose (74-99) mg/dL POC Glucose (mg/dL) 173 H 182 H (70-110) mg/dL Calcium (8.4-10.2) mg/dL Total Protein (6.3-8.2) g/dL Microbiology - Last 24 Hours (Table) 01/04/25 17:35 Urine Culture - Final Urine,Voided Corynebacterium striatum group 01/04/25 16:20 Blood Culture - Preliminary Blood Assessment and Plan Time with Patient: Less than 30
[2025-01-06 17:10] LABS: Glucose,Whole Blood 172 mg/dL (70-110)
[2025-01-06] MEDS: SODIUM CHLORIDE 0.9% 1,000 ML IV SCH (17:53)
--- NOTE | 2025-01-06 20:33 | P.GSCN ---
History of Present Illness Consult date: 01/06/25 Reason for Consult: Left hydronephrosis History of present illness: This is a 74-year-old female with a history of a poorly functioning left kidney and complete obstruction at the UPJ. She does follow-up with Dr. Clark, she was referred over to Dr. Moctezuma at [place] for a plan of a left simple nephrectomy. Currently her left hydronephrosis is being managed with a nephrostomy tube that was placed in November. She has followed up with Dr. Moctezuma with the plan to undergo a robotic left simple nephrectomy on January 26. She presented to the hospital with left sided flank pain, with foul drainage around the nephrostomy tube. She denies any dysuria or gross hematuria, denies any fevers or chills. Infectious disease has been consulted during this hospital admission. Urine culture is growing corynobactrim Sp Review of Systems - Constitutional Denies fever, Denies weight loss - Cardiovascular Denies chest pain, Denies shortness of breath - Respiratory Denies cough, Denies 7 - Gastrointestinal Reports as per HPI - Genitourinary Genitourinary: Reports flank pain, Denies dysuria Past Medical History Past Medical History: Asthma, Coronary Artery Disease (CAD), Chest Pain / Angina, Heart Failure, Diabetes Mellitus, GERD/Reflux, Hyperlipidemia, Hypertension, Myocardial Infarction ([place]), Osteoarthritis (OA), Pneumonia, Renal Disease, Syncope Additional Past Medical History / Comment(s): [place] 1997, 2004, 2008, CARDIAC ARREST 2016,GOUT, SPINAL STENOSIS, BRONCHITIS, CONSTIPATION, HX OF DIZZINESS & FALLS, AORTIC STENOSIS, KIDNEY FAILURE STAGE 5, PACER/AICD, Fatigue, very SOB w/exertion recently. Aortic Valve Replacement Dec, 2019. 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 Date of Last Stent Placement:: UNKNOWN Type of Cardiac Device: AICD Device Placement Date:: 10-05-16 [facility] Past Psychological History: Anxiety, Depression Additional Psychological History / Comment(s): . Smoking Status: Never smoker Past Alcohol Use History: Occasional Past Drug Use History: None Reported - Past Family History Mother Family Medical History: No Reported History Additional Family Medical History / Comment(s): . Medications and Allergies Home Medications Medication Instructions Recorded Confirmed Type Famotidine [Pepcid] 20 mg PO HS 06/20/16 01/05/25 History Montelukast [Singulair] 10 mg PO HS 06/20/16 01/05/25 History allopurinoL [Zyloprim] 300 mg PO HS 06/20/16 01/05/25 History Evolocumab [Repatha Syringe] 140 mg SQ Q14D 10/05/19 01/05/25 History Insulin Glargine,Hum.rec.anlog 10 units SQ BID 02/21/23 01/05/25 History [Lantus Solostar Pen] Insulin Lispro [humaLOG Kwikpen] See Protocol SQ TID-W/MEALS 02/21/23 01/05/25 History Ranolazine [Ranexa] 500 mg PO BID 02/21/23 01/05/25 History Aspirin EC [Ecotrin Low Dose] 81 mg PO DAILY 03/02/24 01/05/25 History FLUoxetine HCL [PROzac] 20 mg PO DAILY 03/02/24 01/05/25 History Nystatin 100,000 Unit/gm Powd 1 applic TOPICAL BID 10/18/24 01/05/25 History [Mycostatin Powder] carvediloL [Coreg*] 12.5 mg PO DAILY #30 tab 10/21/24 01/05/25 Rx Acetaminophen Tab [Tylenol Tab] 1,000 mg PO BID 01/05/25 01/05/25 History Acetaminophen Tab [Tylenol Tab] 1,000 mg PO Q6HR PRN 01/05/25 01/05/25 History Furosemide [Lasix] 40 mg PO BID 01/05/25 01/05/25 History Isosorbide Mononitrate ER [Imdur] 60 mg PO BID 01/05/25 01/05/25 History Nystatin 100,000Unit/gm Cream 1 applic TOPICAL BID 01/05/25 01/05/25 History [Mycostatin Cream] carvediloL [Coreg] 6.25 mg PO HS 01/05/25 01/05/25 History Allergies Allergy/AdvReac Type Severity Reaction Status Date / Time amoxicillin [From Augmentin] Allergy Anaphylaxis Verified 01/05/25 10:08 /rash/hives cefprozil [From Cefzil] Allergy Anaphylaxis Verified 01/05/25 10:08 /rash/hives clavulanic acid Allergy Anaphylaxis Verified 01/05/25 10:08 [From Augmentin] /rash/hives sulfamethoxazole Allergy Anaphylaxis Verified 01/05/25 10:08 [From Bactrim] /rash/hives trimethoprim [From Bactrim] Allergy Anaphylaxis Verified 01/05/25 10:08 /rash/hives Surgical - Exam Vital Signs Temp Pulse Resp BP Pulse Ox 97.7 F 68 18 153/83 97 01/04/25 15:25 01/04/25 15:25 01/04/25 15:25 01/04/25 15:25 01/04/25 15:25 - General no distress, no pain - Eyes normal ocular movement, no pale - ENT normal nares, normal mucosa - Respiratory normal expansion, normal respiratory effort - Abdomen Abdomen: soft, non tender, no distended - Integumentary Minimal amount of redness around the nephrostomy tube site, with some fibrinous drainage. No fluctuance or induration appreciated. Results - Labs 01/06/25 07:23 01/06/25 05:30 Abnormal Lab Results - Last 24 Hours (Table) 01/05/25 01/06/25 01/06/25 Range/Units 20:29 05:30 07:23 RBC 3.30 L (4.10-5.20) X 10*6/uL Hgb 10.8 L (12.0-15.0) g/dL Hct 32.8 L (37.2-46.3) % MCV 99.4 H (80.0-97.0) FL MCH 32.7 H (27.0-32.0) pg RDW 15.0 H (11.5-14.5) % Sodium 134 L (137-145) mmol/L BUN 36 H (7-17) mg/dL Creatinine 1.84 H (0.52-1.04) mg/dL Glucose 177 H (74-99) mg/dL POC Glucose (mg/dL) 226 H (70-110) mg/dL Calcium 10.6 H (8.4-10.2) mg/dL Total Protein 6.0 L (6.3-8.2) g/dL 01/06/25 01/06/25 01/06/25 Range/Units 07:26 12:38 17:09 RBC (4.10-5.20) X 10*6/uL Hgb (12.0-15.0) g/dL Hct (37.2-46.3) % MCV (80.0-97.0) FL MCH (27.0-32.0) pg RDW (11.5-14.5) % Sodium (137-145) mmol/L BUN (7-17) mg/dL Creatinine (0.52-1.04) mg/dL Glucose (74-99) mg/dL POC Glucose (mg/dL) 173 H 182 H 172 H (70-110) mg/dL Calcium (8.4-10.2) mg/dL Total Protein (6.3-8.2) g/dL Microbiology - Last 24 Hours (Table) 01/04/25 17:35 Urine Culture - Final Urine,Voided Corynebacterium striatum group 01/04/25 16:20 Blood Culture - Preliminary Blood Diabetes panel 01/06/25 Range/Units 05:30 Sodium 134 L (137-145) mmol/L Potassium 4.4 (3.5-5.1) mmol/L Chloride 101 (98-107) mmol/L Carbon Dioxide 23 (22-30) mmol/L BUN 36 H (7-17) mg/dL Creatinine 1.84 H (0.52-1.04) mg/dL Glucose 177 H (74-99) mg/dL Calcium 10.6 H (8.4-10.2) mg/dL AST 19 (14-36) U/L ALT 12 (4-34) U/L Alkaline Phosphatase 122 (38-126) U/L Total Protein 6.0 L (6.3-8.2) g/dL Albumin 3.5 (3.5-5.0) g/dL Calcium panel 01/06/25 Range/Units 05:30 Calcium 10.6 H (8.4-10.2) mg/dL Albumin 3.5 (3.5-5.0) g/dL Pituitary panel 01/06/25 Range/Units 05:30 Sodium 134 L (137-145) mmol/L Potassium 4.4 (3.5-5.1) mmol/L Chloride 101 (98-107) mmol/L Carbon Dioxide 23 (22-30) mmol/L BUN 36 H (7-17) mg/dL Creatinine 1.84 H (0.52-1.04) mg/dL Glucose 177 H (74-99) mg/dL Calcium 10.6 H (8.4-10.2) mg/dL Adrenal panel 01/06/25 Range/Units 05:30 Sodium 134 L (137-145) mmol/L Potassium 4.4 (3.5-5.1) mmol/L Chloride 101 (98-107) mmol/L Carbon Dioxide 23 (22-30) mmol/L BUN 36 H (7-17) mg/dL Creatinine 1.84 H (0.52-1.04) mg/dL Glucose 177 H (74-99) mg/dL Calcium 10.6 H (8.4-10.2) mg/dL Total Bilirubin 0.5 (0.2-1.3) mg/dL AST 19 (14-36) U/L ALT 12 (4-34) U/L Alkaline Phosphatase 122 (38-126) U/L Total Protein 6.0 L (6.3-8.2) g/dL Albumin 3.5 (3.5-5.0) g/dL Assessment and Plan Assessment: 73-year-old female admitted to the hospital with a UTI, history of poorly functioning kidney, currently being managed with a nephrostomy tube for the plan to undergo simple nephrectomy. From urology standpoint no further intervention is needed, she has already set up for a left robotic simple nephrectomy on January 26, I did advise her to keep that follow-up and keep the nephrostomy tube until that date. Antibiotics per infectious disease
[2025-01-06 20:47] LABS: Glucose,Whole Blood 223 mg/dL (70-110)
[2025-01-06] MEDS: carvediloL 6.25 MG TAB PO SCH (22:09)
[2025-01-06] MEDS: polyethylene glycoL 3350 17 GM POWD.PACK PO SCH (22:10)
[2025-01-07 07:16] LABS: Glucose,Whole Blood 90 mg/dL (70-110)
[2025-01-07 08:57] LABS: Basophils # (A) 0.02 X 10*3/uL (0.00-0.10); Basophils % (A) 0.4 %; Eosinophils # (A) 0.26 X 10*3/uL (0.04-0.35); Eosinophils % (A) 5.4 %; HCT 31.5 % (37.2-46.3); HGB 10.2 g/dL (12.0-15.0); Lymphocytes # (A) 1.64 X 10*3/uL (0.90-5.00); Lymphocytes % (A) 34.3 %; MCH 32.2 pg (27.0-32.0); MCHC 32.4 g/dL (32.0-37.0); MCV 99.4 FL (80.0-97.0); Mean Platelet Volume 10.2 FL (9.5-12.2); Monocytes % (A) 8.4 %; NRBC Per 100 WBC 0 X 10*3/uL (0.00-0.01); Neutrophils # (A) 2.44 X 10*3/uL (1.80-7.70); Neutrophils % (A) 51.1 %; Platelet Count 156 X 10*3/uL (140-440); RBC 3.17 X 10*6/uL (4.10-5.20); RDW 14.7 % (11.5-14.5); WBC 4.78 X 10*3/uL (4.50-10.00)
[2025-01-07 09:01] LABS: BUN/Creat Ratio 19.35 Ratio (12.00-20.00); Blood Urea Nitrogen 38.7 mg/dL (9.0-27.0); Calcium 8.9 mg/dL (8.7-10.3); Carbon Dioxide 22.1 mmol/L (21.6-31.8); Chloride 108 mmol/L (96-109); Glucose 101 mg/dL (70-110); Potassium 4.3 mmol/L (3.5-5.5); Sodium 137 mmol/L (135-145)
[2025-01-07 12:17] LABS: Glucose,Whole Blood 162 mg/dL (70-110)
[2025-01-07 12:46] LABS: Appearance,Urine Turbid (Clear); Bacteria,Urine Occasional /hpf; Bilirubin,Urine Negative (Negative); Blood,Urine Large (Negative); Color,Urine Red; Glucose,Urine (UA) Negative (Negative); Ketones,Urine Negative (Negative); Leukocyte Esterase,Urine Large (Negative); Nitrite,Urine Negative (Negative); PH, Urine 6.5 (5.0-8.0); Protein,Urine 2+ (Negative); RBC,Urine 48 /hpf (0-5); Specific Gravity,Urine 1.011 (1.001-1.035); Urobilinogen,Urine <2.0 mg/dL (<2.0); WBC,Urine 145 /hpf (0-5)
--- NOTE | 2025-01-07 14:12 | P.PN ---
Subjective Progress Note Date: 01/06/25 Principal diagnosis: Reason for follow-up is left-sided pyelonephritis, multiple antibiotic allergies Patient is a 74-year-old female with multiple comorbidities, also have a left poorly functioning kidney with a complete obstruction at [facility] currently being treated with nephrostomy present to the hospital with pain to the left flank area cloudy urine concerning for left-sided pyonephritis. On today's evaluation that is 01/06/2025,the patient denies any fever or any chills, patient is breathing comfortably on room air, the patient denies chest pain shortness of breath and no significant cough, patient pain to the left leg has slightly decreased no diarrhea. Patient white count is 5.36 creatinine is 1.84 Objective - Vital Signs Vital signs: Vital Signs Temp 98.5 F 01/06/25 18:28 Pulse 65 01/06/25 18:28 Resp 16 01/06/25 18:28 BP 110/69 01/06/25 18:28 Pulse Ox 97 01/06/25 18:28 FiO2 21 01/05/25 11:19 Intake & Output 01/06/25 01/06/25 01/07/25 06:59 18:59 06:59 Intake Total 200 340 Balance 200 340 Weight 86.9 kg Intake: Intake, IV Titration 340 Amount Sodium Chloride 0.9% 1, 200 000 ml @ 20 mls/hr IV . Q24H CORIE Rx#:[id number] Sodium Chloride 0.9% 1, 140 000 ml @ 70 mls/hr IV . [id number] CORIE Rx#:[id number] Oral 200 Other: Voiding Method Ileal Conduit (Left) Toilet Ileal Conduit (Left) # Voids 1 - Exam GENERAL DESCRIPTION: An elderly female lying in bed in no distress RESPIRATORY SYSTEM: Unlabored breathing , decreased breath sounds at bases HEART: S1 S2 regular rate and rhythm , ABDOMEN: Soft , no tenderness EXTREMITIES: No edema feet - Labs CBC & Chem 7: 01/07/25 05:02 01/07/25 05:02 Labs: Abnormal Lab Results - Last 24 Hours (Table) 01/05/25 01/06/25 01/06/25 Range/Units 20:29 05:30 07:23 RBC 3.30 L (4.10-5.20) X 10*6/uL Hgb 10.8 L (12.0-15.0) g/dL Hct 32.8 L (37.2-46.3) % MCV 99.4 H (80.0-97.0) FL MCH 32.7 H (27.0-32.0) pg RDW 15.0 H (11.5-14.5) % Sodium 134 L (137-145) mmol/L BUN 36 H (7-17) mg/dL Creatinine 1.84 H (0.52-1.04) mg/dL Glucose 177 H (74-99) mg/dL POC Glucose (mg/dL) 226 H (70-110) mg/dL Calcium 10.6 H (8.4-10.2) mg/dL Total Protein 6.0 L (6.3-8.2) g/dL 01/06/25 01/06/25 01/06/25 Range/Units 07:26 12:38 17:09 RBC (4.10-5.20) X 10*6/uL Hgb (12.0-15.0) g/dL Hct (37.2-46.3) % MCV (80.0-97.0) FL MCH (27.0-32.0) pg RDW (11.5-14.5) % Sodium (137-145) mmol/L BUN (7-17) mg/dL Creatinine (0.52-1.04) mg/dL Glucose (74-99) mg/dL POC Glucose (mg/dL) 173 H 182 H 172 H (70-110) mg/dL Calcium (8.4-10.2) mg/dL Total Protein (6.3-8.2) g/dL Microbiology - Last 24 Hours (Table) 01/04/25 17:35 Urine Culture - Final Urine,Voided Corynebacterium striatum group 01/04/25 16:20 Blood Culture - Preliminary Blood Assessment and Plan (1) Allergy to multiple antibiotics Current Visit: Yes Status: Acute Code(s): Z88.1 - ALLERGY STATUS TO OTHER ANTIBIOTIC AGENTS SNOMED Code(s): 393451582 (2) UTI (urinary tract infection) Current Visit: Yes Status: Acute Code(s): N39.0 - URINARY TRACT INFECTION, SITE NOT SPECIFIED SNOMED Code(s): 60506719 Plan: 1patient with a complicated history presented to hospital with cloudy urine foul-smelling and did have pain to the left flank area this patient did have history of nephrostomy placed in October 2024 with a significantly positive UA concerning for complicated UTI likely from enteric gram-negative pathogen 2patient with multiple antibiotic ALLERGIES that would limit the number of antibiotic safe to use 3patient is currently being treated with Azactam while waiting for the culture to finalize Dictation was produced using [employer] dictation software. please excuse any grammatical, word or spelling errors. Time with Patient: Less than 30
--- NOTE | 2025-01-07 14:14 | P.PN ---
Subjective Progress Note Date: 01/07/25 Principal diagnosis: Reason for follow-up is left-sided pyelonephritis, multiple antibiotic allergies Patient is a 74-year-old female with multiple comorbidities, also have a left poorly functioning kidney with a complete obstruction at [facility] currently being treated with nephrostomy present to the hospital with pain to the left flank area cloudy urine concerning for left-sided pyonephritis. On today's evaluation that is 01/07/2025,the patient remains to be afebrile, patient is on room air not requiring supplemental oxygen and denies any shortness of breath no chest pain or cough.Patient denies having any nausea or vomiting, denies any worsening pain to the left flank area or diarrhea. Patient white count is 4.78 creatinine is 2.0 UA is positive initial culture growing corynebacterium stratum Objective - Vital Signs Vital signs: Vital Signs Temp 97.5 F L 01/07/25 07:12 Pulse 60 01/07/25 07:12 Resp 18 01/07/25 07:12 BP 143/77 01/07/25 07:12 Pulse Ox 99 01/07/25 07:12 FiO2 21 01/05/25 11:19 Intake & Output 01/06/25 01/07/25 01/07/25 18:59 06:59 18:59 Intake Total 340 240 Balance 340 240 Weight 87.2 kg Intake: Intake, IV Titration 340 Amount Sodium Chloride 0.9% 1, 200 000 ml @ 20 mls/hr IV . Q24H CORIE Rx#:[id number] Sodium Chloride 0.9% 1, 140 000 ml @ 70 mls/hr IV . [id number] CORIE Rx#:[id number] Oral 240 Other: Voiding Method Toilet Toilet Bedside Commode Ileal Conduit (Left) Ileal Conduit (Left) # Voids 3 - Exam GENERAL DESCRIPTION: An elderly female lying in bed in no distress RESPIRATORY SYSTEM: Unlabored breathing , decreased breath sounds at bases HEART: S1 S2 regular rate and rhythm , ABDOMEN: Soft , no tenderness EXTREMITIES: No edema feet - Labs CBC & Chem 7: 01/07/25 05:02 01/07/25 05:02 Labs: Abnormal Lab Results - Last 24 Hours (Table) 01/06/25 01/06/25 01/06/25 Range/Units 12:38 17:09 20:43 RBC (4.10-5.20) X 10*6/uL Hgb (12.0-15.0) g/dL Hct (37.2-46.3) % MCV (80.0-97.0) FL MCH (27.0-32.0) pg RDW (11.5-14.5) % BUN (9.0-27.0) mg/dL Creatinine (0.6-1.5) mg/dL Est GFR (CKD-EPI) (>=60) POC Glucose (mg/dL) 182 H 172 H 223 H (70-110) mg/dL 01/07/25 01/07/25 Range/Units 05:02 05:02 RBC 3.17 L (4.10-5.20) X 10*6/uL Hgb 10.2 L (12.0-15.0) g/dL Hct 31.5 L (37.2-46.3) % MCV 99.4 H (80.0-97.0) FL MCH 32.2 H (27.0-32.0) pg RDW 14.7 H (11.5-14.5) % BUN 38.7 H (9.0-27.0) mg/dL Creatinine 2.0 H (0.6-1.5) mg/dL Est GFR (CKD-EPI) 26 L (>=60) POC Glucose (mg/dL) (70-110) mg/dL Microbiology - Last 24 Hours (Table) 01/04/25 16:20 Blood Culture - Preliminary Blood 01/04/25 17:35 Urine Culture - Final Urine,Voided Corynebacterium striatum group Assessment and Plan (1) Allergy to multiple antibiotics Current Visit: Yes Status: Acute Code(s): Z88.1 - ALLERGY STATUS TO OTHER ANTIBIOTIC AGENTS SNOMED Code(s): 382601893 (2) UTI (urinary tract infection) Current Visit: Yes Status: Acute Code(s): N39.0 - URINARY TRACT INFECTION, SITE NOT SPECIFIED SNOMED Code(s): 93690823 Plan: 1patient with a complicated history presented to hospital with cloudy urine foul-smelling and did have pain to the left flank area this patient did have history of nephrostomy placed in October 2024 with a significantly positive UA concerning for complicated UTI likely from enteric gram-negative pathogen 2patient with multiple antibiotic ALLERGIES that would limit the number of antibiotic safe to use 3patient urine is growing corynebacterium stratum which is a skin kriss however the patient did have a nephrostomy for a couple of months now and may be the likely etiology agent, 4Azactam has been discontinued daptomycin has been added await sensitivities on the corynebacterium determine discharge antibiotics, discussed with CAREER AND TECHNOLOGY EDUCATION TEACHER for admitting team Dictation was produced using [employer] dictation software. please excuse any grammatical, word or spelling errors. Time with Patient: Less than 30
[2025-01-07 17:08] LABS: Glucose,Whole Blood 171 mg/dL (70-110)
--- NOTE | 2025-01-07 18:47 | P.PN ---
Subjective Patient is seen for follow-up for chronic kidney disease and acute kidney injury. No significant complaints today Maintained on IV fluids. Serum creatinine increased slightly to 2 mg/dL. Objective - Vital Signs Vital signs: Vital Signs Temp 98 F 01/07/25 12:13 Pulse 67 01/07/25 12:13 Resp 18 01/07/25 12:13 BP 126/82 01/07/25 12:13 Pulse Ox 98 01/07/25 12:13 FiO2 21 01/05/25 11:19 Intake & Output 01/06/25 01/07/25 01/07/25 18:59 06:59 18:59 Intake Total 340 950 Balance 340 950 Weight 87.2 kg Intake: Intake, IV Titration 340 710 Amount Aztreonam 2 gm In Sodium 100 Chloride 0.9% 100 ml @ 33 .3 mls/hr IVPB Q8HR [facility]IE Rx#:[id number] DAPTOmycin 400 mg In 50 Sodium Chloride 0.9% 50 ml @ 100 mls/hr IVPB Q48H [facility] Rx#:[id number] Sodium Chloride 0.9% 1, 200 000 ml @ 20 mls/hr IV . Q24H [facility]IE Rx#:[id number] Sodium Chloride 0.9% 1, 140 560 000 ml @ 70 mls/hr IV . 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 exam grossly intact - Labs CBC & Chem 7: 01/07/25 05:02 01/07/25 05:02 Labs: Abnormal Lab Results - Last 24 Hours (Table) 01/06/25 01/07/25 01/07/25 Range/Units 20:43 05:02 05:02 RBC 3.17 L (4.10-5.20) X 10*6/uL Hgb 10.2 L (12.0-15.0) g/dL Hct 31.5 L (37.2-46.3) % MCV 99.4 H (80.0-97.0) FL MCH 32.2 H (27.0-32.0) pg RDW 14.7 H (11.5-14.5) % BUN 38.7 H (9.0-27.0) mg/dL Creatinine 2.0 H (0.6-1.5) mg/dL Est GFR (CKD-EPI) 26 L (>=60) POC Glucose (mg/dL) 223 H (70-110) mg/dL Urine Appearance (Clear) Urine Protein (Negative) Urine Blood (Negative) Ur Leukocyte Esterase (Negative) Urine RBC (0-5) /hpf Urine WBC (0-5) /hpf Urine Bacteria (None) /hpf 01/07/25 01/07/25 01/07/25 Range/Units 12:17 12:26 17:06 RBC (4.10-5.20) X 10*6/uL Hgb (12.0-15.0) g/dL Hct (37.2-46.3) % MCV (80.0-97.0) FL MCH (27.0-32.0) pg RDW (11.5-14.5) % BUN (9.0-27.0) mg/dL Creatinine (0.6-1.5) mg/dL Est GFR (CKD-EPI) (>=60) POC Glucose (mg/dL) 162 H 171 H (70-110) mg/dL Urine Appearance Turbid H (Clear) Urine Protein 2+ H (Negative) Urine Blood Large H (Negative) Ur Leukocyte Esterase Large H (Negative) Urine RBC 48 H (0-5) /hpf Urine WBC 145 H (0-5) /hpf Urine Bacteria Occasional H (None) /hpf Microbiology - Last 24 Hours (Table) 01/04/25 16:20 Blood Culture - Preliminary Blood Assessment and Plan Assessment: 1. Acute kidney injury during last hospitalization in October 2024 with component of obstructive uropathy with left hydronephrosis status post left nephrostomy tube. Renal function is improved since October with creatinine down to 1.7 from 2.5 mg/dL on 10/21/2024. 2. Left hydronephrosis with left nephrostomy tube. Nuclear scan showed 15% function on the left kidney and there are plans for left nephrectomy. Patient is scheduled for surgery on January 26 at [facility] 3. UTI maintained on antibiotics. Patient has history of recurrent urine tract infection 4. Chronic kidney disease stage IIIb with baseline creatinine 1.4 to 1.7 mg/dL. Previous UA has been completely benign Plan: Decrease IV fluids. Decrease Coreg further as blood pressure remains on the lower side Continue with antibiotics Repeat labs in a.m. 2
[2025-01-07 20:28] LABS: Glucose,Whole Blood 179 mg/dL (70-110)
[2025-01-07] MEDS: carvediloL 3.125 MG TAB PO SCH (20:45)
--- NOTE | 2025-01-08 04:55 | P.PN ---
Subjective Progress Note Date: 01/07/25 This is a very pleasant 74-year-old female who presented to the emergency department with foul-smelling urine and drainage from the nephrostomy tube on the left with concerns of possible infection. Patient follows with Dr. Borges in the outpatient setting with a past medical history of asthma, coronary artery disease, chest pain with angina, heart failure, diabetes mellitus, GERD, hyperlipidemia, hypertension, previous myocardial infarction, osteoarthritis, renal disease with aortic stenosis chronic kidney disease stage V, previous pacer placement/depression. Patient is following with urology Dr. Clark outpatient who is arranging for a nephrectomy on January 26 at a [facility] facility. Patient has been following with infectious disease along with urology and nephrology outpatient and is status post nephrostomy placement. Patient reports she has been having ongoing recurrent urinary tract infections and has been maintained on multiple antibiotics although presented with some abdominal pain and concerns for urinary tract infection grossly getting worse over the last few days. On admission labs were reviewed revealing a normal white count of 6.32, hemoglobin stable at 11.4, platelets 176, sodium 135 with a potassium of 3.5, BUN 27 and creatinine 1.76 which appears improved from previous readings in between 2 and 3 creatinine, magnesium 1.8, urinalysis performed showing turbid urine with protein light esterase. Patient was admitted for concerns of acute urinary tract infection and was given a dose of Levaquin. Patient evaluated this morning and have consulted urology along with nephrology and infectious disease. 01/06/2025 Patient is evaluated in follow-up on the medical floor. Her urine culture from the nephrostomy is currently pending final micro sensitivities preliminary showing Corynebacterium stratum group. She does state that she has not had a bowel movement since Saturday and feels constipated. She usually uses Colace and Benefiber at home. She is okay with trialing MiraLAX. She is currently maintained on IV aztreonam with ID following closely. She is being hydrated with normal saline running at 70 mL/h. BUN today of 36 creatinine of 1.84. Sodium level of 134. Calcium of 10.6. 01/07/2025 Patient is seen in follow-up today reports to feeling somewhat improved and is awaiting finalized cultures to determine appropriate discharge antibiotics. Infectious disease following as culture showing Corynebacterium and requesting micro lab to run sensitivities and micro lab was contacted and this is a send out which will not be sent out until 01/08/2025 and then will await sensitivities to be resulted. Patient is afebrile with no reports of chest pain or shortness of breath. Urology following with no further recommendations other than continued course and nephrectomy on January 26 as scheduled. Nephrology following monitoring kidney functions and creatinine is 2 today. Encouraged increase activity as tolerated with getting up and walking more frequently. Continue gentle hydration per nephrology and will follow-up on repeat labs. REVIEW OF SYSTEMS: CONSTITUTIONAL: No fever, no malaise, no fatigue. HEENT: No recent visual problems or hearing problems. Denied any sore throat. CARDIOVASCULAR: No chest pain, orthopnea, PND, no palpitations, no syncope. PULMONARY: No shortness of breath, no cough, no hemoptysis. GASTROINTESTINAL: No diarrhea, reports of nausea, no vomiting, reports diffuse abdominal pain. NEUROLOGICAL: No headaches, no weakness, no numbness. PHYSICAL EXAMINATION: GENERAL: The patient is alert and oriented x3, not in any acute distress. Well developed, well nourished. Morbidly obese HEENT: Pupils are round and equally reacting to light. EOMI. No scleral icterus. No conjunctival pallor. Normocephalic, atraumatic. No pharyngeal erythema. No thyromegaly. CARDIOVASCULAR: S1 and S2 present. No murmurs, rubs, or gallops. PULMONARY: Chest is clear to auscultation, no wheezing or crackles. ABDOMEN: Soft, nontender, nondistended, normoactive bowel sounds. No palpable organomegaly. MUSCULOSKELETAL: No joint swelling or deformity. EXTREMITIES: No cyanosis, clubbing, or pedal edema. NEUROLOGICAL: Gross neurological examination did not reveal any focal deficits. SKIN: No rashes. 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, status post left nephrostomy and tentatively scheduled for nephrectomy on January 26, 2025 at [facility] History of recurrent urinary tract infections Acute urinary tract infection, present on admission with a largely abnormal urinalysis, foul-smelling drainage and decreased urinary output, culture showing Cornibacterium stratum and awaiting culture sensitivities Constipation History of asthma in exacerbation Coronary artery disease history Acute on chronic kidney disease History of heart failure, unknown EF Diabetes mellitus type 2 History of GERD Hyperlipidemia Hypertension Previous myocardial infarctions History of osteoarthritis History of kidney failure stage V, again scheduled for nephrectomy on the left this month History of anxiety/depression Obesity with BMI of 39.3 aortic stenosis history and AICD placement with previous coronary artery bypass grafting and multiple stents previously GI prophylaxis DVT prophylaxis Full code Plan: Patient was admitted with concerns of foul-smelling odor and left nephrostomy follows with urology and nephrology closely along with infectious disease as patient has been hospitalized multiple times. Patient follows with urology outpatient and is being arranged for left nephrectomy at [facility] and tentatively scheduled for 01/26/2025 Patient has been started on IV aztreonam, preliminary cultures are showing Corynebacterium species with recommendations from ID and discussed with micro l ab about ordering sensitivities. This is a send out and will be sent on 01/08/2025 and will await finalized sensitivities to determine appropriate antibiotics on discharge. Unsure if patient will require IV antibiotic therapy on discharge and case management is following verifying coverage Follow-up on repeat labs and replace electrolytes per protocol. Continue gentle hydration per nephrology and follow-up on kidney function Continue monitoring Accu-Cheks AC and at bedtime and will adjust insulins accordingly Encouraged increased activity as tolerated and getting up out of the bed more frequently The impression and plan of care has been dictated by Cassidy Blevins, Nurse Practitioner as directed. Dr. Lois MD I have performed a history and examination and MDM of this patient, discussed the same with the dictator, and agree with the dictator's assessment and plan as written ,documented as a scribe. Based on total visit time, I have performed more than 50% of the visit. Objective - Vital Signs Vital signs: Vital Signs Temp 97.5 F L 01/07/25 07:12 Pulse 60 01/07/25 07:12 Resp 18 01/07/25 07:12 BP 143/77 01/07/25 07:12 Pulse Ox 99 01/07/25 07:12 FiO2 21 01/05/25 11:19 Intake & Output 01/06/25 01/07/25 01/07/25 18:59 06:59 18:59 Intake Total 340 240 Balance 340 240 Weight 87.2 kg Intake: Intake, IV Titration 340 Amount Sodium Chloride 0.9% 1, 200 000 ml @ 20 mls/hr IV . Q24H CORIE Rx#:[id number] Sodium Chloride 0.9% 1, 140 000 ml @ 70 mls/hr IV . [id number] CORIE Rx#:[id number] Oral 240 Other: Voiding Method Toilet Toilet Ileal Conduit (Left) Ileal Conduit (Left) # Voids 3 - Labs CBC & Chem 7: 01/07/25 05:02 01/07/25 05:02 Labs: Abnormal Lab Results - Last 24 Hours (Table) 01/06/25 01/06/25 01/06/25 Range/Units 07:23 12:38 17:09 RBC 3.30 L (4.10-5.20) X 10*6/uL Hgb 10.8 L (12.0-15.0) g/dL Hct 32.8 L (37.2-46.3) % MCV 99.4 H (80.0-97.0) FL MCH 32.7 H (27.0-32.0) pg RDW 15.0 H (11.5-14.5) % BUN (9.0-27.0) mg/dL Creatinine (0.6-1.5) mg/dL Est GFR (CKD-EPI) (>=60) POC Glucose (mg/dL) 182 H 172 H (70-110) mg/dL 01/06/25 01/07/25 01/07/25 Range/Units 20:43 05:02 05:02 RBC 3.17 L (4.10-5.20) X 10*6/uL Hgb 10.2 L (12.0-15.0) g/dL Hct 31.5 L (37.2-46.3) % MCV 99.4 H (80.0-97.0) FL MCH 32.2 H (27.0-32.0) pg RDW 14.7 H (11.5-14.5) % BUN 38.7 H (9.0-27.0) mg/dL Creatinine 2.0 H (0.6-1.5) mg/dL Est GFR (CKD-EPI) 26 L (>=60) POC Glucose (mg/dL) 223 H (70-110) mg/dL Microbiology - Last 24 Hours (Table) 01/04/25 16:20 Blood Culture - Preliminary Blood 01/04/25 17:35 Urine Culture - Final Urine,Voided Corynebacterium striatum group
[2025-01-08 07:24] LABS: Glucose,Whole Blood 93 mg/dL (70-110)
[2025-01-08 08:36] LABS: BUN/Creat Ratio 20.59 Ratio (12.00-20.00); Carbon Dioxide 19.7 mmol/L (21.6-31.8); Chloride 108 mmol/L (96-109); Glucose 91 mg/dL (70-110); Magnesium 2.5 mg/dL (1.5-2.4); Potassium 4.5 mmol/L (3.5-5.5); Sodium 138 mmol/L (135-145)
[2025-01-08 12:34] LABS: Glucose,Whole Blood 170 mg/dL (70-110)
--- NOTE | 2025-01-08 15:06 | P.PN ---
Subjective Progress Note Date: 01/08/25 Principal diagnosis: Reason for follow-up is left-sided pyelonephritis, multiple antibiotic allergies Patient is a 74-year-old female with multiple comorbidities, also have a left poorly functioning kidney with a complete obstruction at [facility] currently being treated with nephrostomy present to the hospital with pain to the left flank area cloudy urine concerning for left-sided pyonephritis. On today's evaluation that is 01/08/2025, the patient continues to be afebrile, the patient is on room air and breathing comfortably, the Pt denies having any chest pain however has been complaining of dry cough, no URI symptoms, the patient denies having any abdominal pain no vomiting or any diarrhea. Patient did have a creatinine 1.7 repeat urine growing the same pathogen sensitivities pending Objective - Vital Signs Vital signs: Vital Signs Temp 98.1 F 01/08/25 07:10 Pulse 73 01/08/25 08:26 Resp 16 01/08/25 07:10 BP 105/68 01/08/25 08:26 Pulse Ox 97 01/08/25 07:10 FiO2 21 01/05/25 11:19 Intake & Output 01/07/25 01/08/25 01/08/25 18:59 06:59 18:59 Intake Total 950 Balance 950 Weight 86.8 kg Intake: Intake, IV Titration 710 Amount Aztreonam 2 gm In Sodium 100 Chloride 0.9% 100 ml @ 33 .3 mls/hr IVPB Q8HR CORIE Rx#:[id number] DAPTOmycin 400 mg In 50 Sodium Chloride 0.9% 50 ml @ 100 mls/hr IVPB Q48H CORIE Rx#:[id number] Sodium Chloride 0.9% 1, 560 000 ml @ 50 mls/hr IV . Q20H CORIE Rx#:[id number] Oral 240 Other: Voiding Method Bedside Commode Toilet Toilet Ileal Conduit (Left) Ileal Conduit (Left) # Voids 2 3 - Exam GENERAL DESCRIPTION: An elderly female lying in bed in no distress RESPIRATORY SYSTEM: Unlabored breathing , decreased breath sounds at bases HEART: S1 S2 regular rate and rhythm , ABDOMEN: Soft , no tenderness EXTREMITIES: No edema feet - Labs CBC & Chem 7: 01/07/25 05:02 01/08/25 05:11 Labs: Abnormal Lab Results - Last 24 Hours (Table) 01/07/25 01/07/25 01/07/25 Range/Units 12:17 12:26 17:06 Carbon Dioxide (21.6-31.8) mmol/L BUN (9.0-27.0) mg/dL Creatinine (0.6-1.5) mg/dL Est GFR (CKD-EPI) (>=60) BUN/Creatinine Ratio (12.00-20.00) Ratio POC Glucose (mg/dL) 162 H 171 H (70-110) mg/dL Magnesium (1.5-2.4) mg/dL Urine Appearance Turbid H (Clear) Urine Protein 2+ H (Negative) Urine Blood Large H (Negative) Ur Leukocyte Esterase Large H (Negative) Urine RBC 48 H (0-5) /hpf Urine WBC 145 H (0-5) /hpf Urine Bacteria Occasional H (None) /hpf 01/07/25 01/08/25 Range/Units 20:24 05:11 Carbon Dioxide 19.7 L (21.6-31.8) mmol/L BUN 35.0 H (9.0-27.0) mg/dL Creatinine 1.7 H (0.6-1.5) mg/dL Est GFR (CKD-EPI) 31 L (>=60) BUN/Creatinine Ratio 20.59 H (12.00-20.00) Ratio POC Glucose (mg/dL) 179 H (70-110) mg/dL Magnesium 2.5 H (1.5-2.4) mg/dL Urine Appearance (Clear) Urine Protein (Negative) Urine Blood (Negative) Ur Leukocyte Esterase (Negative) Urine RBC (0-5) /hpf Urine WBC (0-5) /hpf Urine Bacteria (None) /hpf Microbiology - Last 24 Hours (Table) 01/04/25 16:20 Blood Culture - Preliminary Blood Assessment and Plan (1) Allergy to multiple antibiotics Current Visit: Yes Status: Acute Code(s): Z88.1 - ALLERGY STATUS TO OTHER ANTIBIOTIC AGENTS SNOMED Code(s): 648072775 (2) UTI (urinary tract infection) Current Visit: Yes Status: Acute Code(s): N39.0 - URINARY TRACT INFECTION, SITE NOT SPECIFIED SNOMED Code(s): 73557762 Plan: 1patient with a complicated history presented to hospital with cloudy urine foul-smelling and did have pain to the left flank area this patient did have history of nephrostomy placed in October 2024 with a significantly positive UA concerning for complicated UTI likely from enteric gram-negative pathogen 2patient with multiple antibiotic ALLERGIES that would limit the number of antibiotic safe to use 3patient urine is growing corynebacterium stratum which is a skin kriss however the patient did have a nephrostomy for a couple of months now and may be the likely etiology agent, 4patient repeat urine is growing the same pathogen currently on daptomycin awaiting sensitivity to determine discharge antibiotics, complaining of cough we will check a chest x-ray Dictation was produced using [employer] dictation software. please excuse any grammatical, word or spelling errors. Time with Patient: Less than 30
--- NOTE | 2025-01-08 16:56 | P.PN ---
Subjective Patient is seen for follow-up for chronic kidney disease and acute kidney injury. No significant complaints today Maintained on IV fluids. Serum creatinine increased slightly to 2 mg/dL yesterday. Labs are pending from today Objective - Vital Signs Vital signs: Vital Signs Temp 98.4 F 01/08/25 12:25 Pulse 75 01/08/25 12:25 Resp 17 01/08/25 12:25 BP 138/69 01/08/25 12:25 Pulse Ox 98 01/08/25 12:25 FiO2 21 01/05/25 11:19 Intake & Output 01/07/25 01/08/25 01/08/25 18:59 06:59 18:59 Intake Total 950 Balance 950 Weight 86.8 kg Intake: Intake, IV Titration 710 Amount Aztreonam 2 gm In Sodium 100 Chloride 0.9% 100 ml @ 33 .3 mls/hr IVPB Q8HR CORIE Rx#:[id number] DAPTOmycin 400 mg In 50 Sodium Chloride 0.9% 50 ml @ 100 mls/hr IVPB Q48H CORIE Rx#:[id number] Sodium Chloride 0.9% 1, 560 000 ml @ 50 mls/hr IV . 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 - Labs CBC & Chem 7: 01/07/25 05:02 01/08/25 05:11 Labs: Abnormal Lab Results - Last 24 Hours (Table) 01/07/25 01/07/25 01/08/25 Range/Units 17:06 20:24 05:11 Carbon Dioxide 19.7 L (21.6-31.8) mmol/L BUN 35.0 H (9.0-27.0) mg/dL Creatinine 1.7 H (0.6-1.5) mg/dL Est GFR (CKD-EPI) 31 L (>=60) BUN/Creatinine Ratio 20.59 H (12.00-20.00) Ratio POC Glucose (mg/dL) 171 H 179 H (70-110) mg/dL Magnesium 2.5 H (1.5-2.4) mg/dL 01/08/25 Range/Units 12:29 Carbon Dioxide (21.6-31.8) mmol/L BUN (9.0-27.0) mg/dL Creatinine (0.6-1.5) mg/dL Est GFR (CKD-EPI) (>=60) BUN/Creatinine Ratio (12.00-20.00) Ratio POC Glucose (mg/dL) 170 H (70-110) mg/dL Magnesium (1.5-2.4) mg/dL Microbiology - Last 24 Hours (Table) 01/07/25 12:26 Urine Culture - Final Urine,Voided Corynebacterium striatum group 01/04/25 16:20 Blood Culture - Preliminary Blood Assessment and Plan Assessment: 1. Acute kidney injury during last hospitalization in October 2024 with component of obstructive uropathy with left hydronephrosis status post left nephrostomy tube. Renal function is improved since October with creatinine down to 1.7 from 2.5 mg/dL on 10/21/2024. Serum creatinine was elevated at 2.0 yesterday and patient was started on IV fluids. 2. Left hydronephrosis with left nephrostomy tube. Nuclear scan showed 15% function on the left kidney and there are plans for left nephrectomy. Patient is scheduled for surgery on January 26 at [facility] 3. UTI maintained on antibiotics. Patient has history of recurrent urine tract infection 4. Chronic kidney disease stage IIIb with baseline creatinine 1.4 to 1.7 mg/dL. Previous UA has been completely benign Plan: Can DC IV fluids if renal function is further improved Decreased Coreg further as blood pressure remains on the lower side. Continue to monitor for now Continue with antibiotics Repeat labs in a.m. 2
[2025-01-08 17:09] LABS: Glucose,Whole Blood 198 mg/dL (70-110)
--- NOTE | 2025-01-08 19:04 | XR ---
EXAMINATION TYPE: XR chest 2V DATE OF EXAM: 01/08/2025 4:04 PM COMPARISON: 10/18/2024 CLINICAL INDICATION: Female, 74 years old with history of Cough, TECHNIQUE: XR chest 2V view(s) obtained. FINDINGS: The heart size is mildly prominent. Pacemaker overlies left chest. Sternotomy wires and midline The pulmonary vasculature is normal. Posterior small pleural effusions are present. No suspicious infiltrates. Right shoulder prosthesis is present. IMPRESSION: 1. Small bilateral posterior pleural effusions [facility], , 01/08/2025 7:02 PM
[2025-01-08 20:27] LABS: Glucose,Whole Blood 228 mg/dL (70-110)
[2025-01-09 07:33] LABS: Glucose,Whole Blood 105 mg/dL (70-110)
[2025-01-09 07:35] LABS: Basophils # (A) 0.02 10*3/uL (0.00-0.10); Basophils % (A) 0.3 %; Eosinophils # (A) 0.42 10*3/uL (0.04-0.35); Eosinophils % (A) 6.1 %; HCT 31.5 % (37.2-46.3); HGB 10.4 g/dL (12.0-15.0); Lymphocytes # (A) 0.83 10*3/uL (0.90-5.00); Lymphocytes % (A) 12.1 %; MCH 32.1 pg (27.0-32.0); MCV 97.2 fL (80.0-97.0); Mean Platelet Volume 10.3 fL (9.5-12.2); Monocytes % (A) 7.3 %; Neutrophils # (A) 5.05 10*3/uL (1.80-7.70); Neutrophils % (A) 73.6 %; Platelet Count 144 10*3/uL (140-440); RBC 3.24 10*6/uL (4.10-5.20); RDW 14.7 % (11.5-14.5); WBC 6.86 10*3/uL (4.50-10.00)
[2025-01-09 07:48] LABS: African American GFR (CKD) 32 (>60 ml/min/1.73 sqM); Anion Gap 9 mmol/L; Blood Urea Nitrogen 36 mg/dL (7-17); Calcium 9.4 mg/dL (8.4-10.2); Carbon Dioxide 19 mmol/L (22-30); Chloride 106 mmol/L (98-107); Glucose 106 mg/dL (74-99); Non-African American GFR(CKD) 28 (>60 ml/min/1.73 sqM); Potassium 4.8 mmol/L (3.5-5.1); Sodium 134 mmol/L (137-145)
--- NOTE | 2025-01-09 08:54 | P.PN ---
Subjective Progress Note Date: 01/08/25 This is a very pleasant 74-year-old female who presented to the emergency department with foul-smelling urine and drainage from the nephrostomy tube on the left with concerns of possible infection. Patient follows with Dr. Borges in the outpatient setting with a past medical history of asthma, coronary artery disease, chest pain with angina, heart failure, diabetes mellitus, GERD, hyperlipidemia, hypertension, previous myocardial infarction, osteoarthritis, renal disease with aortic stenosis chronic kidney disease stage V, previous pacer placement/depression. Patient is following with urology Dr. Clark outpatient who is arranging for a nephrectomy on January 26 at a [facility] facility. Patient has been following with infectious disease along with urology and nephrology outpatient and is status post nephrostomy placement. Patient reports she has been having ongoing recurrent urinary tract infections and has been maintained on multiple antibiotics although presented with some abdominal pain and concerns for urinary tract infection grossly getting worse over the last few days. On admission labs were reviewed revealing a normal white count of 6.32, hemoglobin stable at 11.4, platelets 176, sodium 135 with a potassium of 3.5, BUN 27 and creatinine 1.76 which appears improved from previous readings in between 2 and 3 creatinine, magnesium 1.8, urinalysis performed showing turbid urine with protein light esterase. Patient was admitted for concerns of acute urinary tract infection and was given a dose of Levaquin. Patient evaluated this morning and have consulted urology along with nephrology and infectious disease. 01/06/2025 Patient is evaluated in follow-up on the medical floor. Her urine culture from the nephrostomy is currently pending final micro sensitivities preliminary showing Corynebacterium stratum group. She does state that she has not had a bowel movement since Saturday and feels constipated. She usually uses Colace and Benefiber at home. She is okay with trialing MiraLAX. She is currently maintained on IV aztreonam with ID following closely. She is being hydrated with normal saline running at 70 mL/h. BUN today of 36 creatinine of 1.84. Sodium level of 134. Calcium of 10.6. 01/07/2025 Patient is seen in follow-up today reports to feeling somewhat improved and is awaiting finalized cultures to determine appropriate discharge antibiotics. Infectious disease following as culture showing Corynebacterium and requesting micro lab to run sensitivities and micro lab was contacted and this is a send out which will not be sent out until 01/08/2025 and then will await sensitivities to be resulted. Patient is afebrile with no reports of chest pain or shortness of breath. Urology following with no further recommendations other than continued course and nephrectomy on January 26 as scheduled. Nephrology following monitoring kidney functions and creatinine is 2 today. Encouraged increase activity as tolerated with getting up and walking more frequently. Continue gentle hydration per nephrology and will follow-up on repeat labs. 01/08/2025 Patient is seen in follow-up today awaiting culture sensitivities that were requested from micro lab which is a send out and will likely not be resulted until early next week. Patient is continued on antibiotics in the form of daptomycin with infectious disease following closely. Patient has multiple anti biotic allergies making it difficult to consider outpatient antibiotics. Patient was reporting a dull cough and chest x-ray will be obtained. Recommend incentive spirometer and increasing activity as tolerated and sitting up on the bed more frequently. Patient is afebrile with no reports of chest pain or palpitations. Patient is continued on gentle IV hydration per nephrology with concerns of developing mild volume overload. Creatinine is trending down and 1.7. REVIEW OF SYSTEMS: CONSTITUTIONAL: No fever, no malaise, no fatigue. HEENT: No recent visual problems or hearing problems. Denied any sore throat. CARDIOVASCULAR: No chest pain, orthopnea, PND, no palpitations, no syncope. PULMONARY: No shortness of breath, reports a slight cough, no hemoptysis. GASTROINTESTINAL: No diarrhea, reports of nausea, no vomiting, reports diffuse abdominal pain. NEUROLOGICAL: No headaches, no weakness, no numbness. PHYSICAL EXAMINATION: GENERAL: The patient is alert and oriented x3, not in any acute distress. Well developed, well nourished. Morbidly obese HEENT: Pupils are round and equally reacting to light. EOMI. No scleral icterus. No conjunctival pallor. Normocephalic, atraumatic. No pharyngeal erythema. No thyromegaly. CARDIOVASCULAR: S1 and S2 present. No murmurs, rubs, or gallops. PULMONARY: Diminished breath sounds bilaterally otherwise chest is clear to auscultation, small faint occasional expiratory wheezing noted ABDOMEN: Soft, nontender, nondistended, normoactive bowel sounds. No palpable organomegaly. MUSCULOSKELETAL: No joint swelling or deformity. EXTREMITIES: No cyanosis, clubbing, or pedal edema. NEUROLOGICAL: Gross neurological examination did not reveal any focal deficits. SKIN: No rashes. 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, status post left nephrostomy and tentatively scheduled for nephrectomy on January 26, 2025 at [facility] History of recurrent urinary tract infections Acute urinary tract infection, present on admission with a largely abnormal urinalysis, foul-smelling drainage and decreased urinary output, culture showing Cornibacterium stratum and awaiting culture sensitivities Constipation History of asthma in exacerbation Coronary artery disease history Acute on chronic kidney disease History of heart failure, unknown EF Diabetes mellitus type 2 History of GERD Hyperlipidemia Hypertension Previous myocardial infarctions History of osteoarthritis History of kidney failure stage V, again scheduled for nephrectomy on the left this month History of anxiety/depression Obesity with BMI of 39.3 aortic stenosis history and AICD placement with previous coronary artery bypass grafting and multiple stents previously GI prophylaxis DVT prophylaxis Full code Plan: Patient was admitted with concerns of foul-smelling odor and left nephrostomy follows with urology and nephrology closely along with infectious disease as patient has been hospitalized multiple times. Patient follows with urology outpatient and is being arranged for left nephrectomy at [facility] and tentatively scheduled for 01/26/2025 Patient is continued on daptomycin, preliminary cultures are showing Corynebacterium species with recommendations from ID and discussed with micro lab about ordering sensitivities. This is a send out and will be sent on 01/08/2025 and will await finalized sensitivities to determine appropriate antibiotics on discharge. Unsure if patient will require IV antibiotic therapy on discharge and case management is following verifying coverage, likely no discharge until least Saturday to arrange for discharge planning Follow-up on repeat labs and replace electrolytes per protocol. Continue gentle hydration per nephrology and follow-up on kidney function. Slightly improved although with concern of continuing hydration for some volume overload. Chest x-ray shows small bilateral posterior pleural effusions and would recommend discontinuing IV fluids, will need to discuss with nephrology. Continue monitoring Accu-Cheks AC and at bedtime and will adjust insulins accordingly Encouraged increased activity as tolerated and getting up out of the bed more frequently. Will add incentive spirometer as well and continue to use at least 10 times every hour while awake The impression and plan of care has been dictated by Cassidy Blevins, Nurse Practitioner as directed. Dr. Scottie MD I have performed a history and examination and MDM of this patient, discussed the same with the dictator, and agree with the dictator's assessment and plan as written ,documented as a scribe. Based on total visit time, I have performed more than 50% of the visit. Objective - Vital Signs Vital signs: Vital Signs Temp 98.4 F 01/08/25 12:25 Pulse 75 01/08/25 12:25 Resp 17 01/08/25 12:25 BP 138/69 01/08/25 12:25 Pulse Ox 98 01/08/25 12:25 FiO2 21 01/05/25 11:19 Intake & Output 01/07/25 01/08/25 01/08/25 18:59 06:59 18:59 Intake Total 950 Balance 950 Weight 86.8 kg Intake: Intake, IV Titration 710 Amount Aztreonam 2 gm In Sodium 100 Chloride 0.9% 100 ml @ 33 .3 mls/hr IVPB Q8HR CORIE Rx#:[id number] DAPTOmycin 400 mg In 50 Sodium Chloride 0.9% 50 ml @ 100 mls/hr IVPB Q48H [facility]IE Rx#:[id number] Sodium Chloride 0.9% 1, 560 000 ml @ 50 mls/hr IV . Q20H CORIE Rx#:[id number] Oral 240 Other: Voiding Method Bedside Commode Toilet Toilet Ileal Conduit (Left) Ileal Conduit (Left) # Voids 2 3 - Labs CBC & Chem 7: 01/09/25 07:15 01/09/25 07:15 Labs: Abnormal Lab Results - Last 24 Hours (Table) 01/07/25 01/07/25 01/08/25 Range/Units 17:06 20:24 05:11 Carbon Dioxide 19.7 L (21.6-31.8) mmol/L BUN 35.0 H (9.0-27.0) mg/dL Creatinine 1.7 H (0.6-1.5) mg/dL Est GFR (CKD-EPI) 31 L (>=60) BUN/Creatinine Ratio 20.59 H (12.00-20.00) Ratio POC Glucose (mg/dL) 171 H 179 H (70-110) mg/dL Magnesium 2.5 H (1.5-2.4) mg/dL 01/08/25 Range/Units 12:29 Carbon Dioxide (21.6-31.8) mmol/L BUN (9.0-27.0) mg/dL Creatinine (0.6-1.5) mg/dL Est GFR (CKD-EPI) (>=60) BUN/Creatinine Ratio (12.00-20.00) Ratio POC Glucose (mg/dL) 170 H (70-110) mg/dL Magnesium (1.5-2.4) mg/dL Microbiology - Last 24 Hours (Table) 01/07/25 12:26 Urine Culture - Final Urine,Voided Corynebacterium striatum group 01/04/25 16:20 Blood Culture - Preliminary Blood
[2025-01-09 12:22] LABS: Glucose,Whole Blood 151 mg/dL (70-110)
--- NOTE | 2025-01-09 13:30 | P.PN ---
Subjective Patient is seen for follow-up for chronic kidney disease and acute kidney injury. No significant complaints today Maintained on IV fluids. Complaining of swelling in the feet No shortness of breath Serum creatinine decreased to 1.7 Objective - Vital Signs Vital signs: Vital Signs Temp 97.3 F L 01/09/25 12:18 Pulse 64 01/09/25 12:18 Resp 16 01/09/25 12:18 BP 104/69 01/09/25 12:18 Pulse Ox 95 01/09/25 12:18 FiO2 21 01/09/25 08:03 Intake & Output 01/08/25 01/09/25 01/09/25 18:59 06:59 18:59 Intake Total 1054 Output Total 150 Balance 1054 -150 Weight 90.3 kg Intake: Oral 1054 Output: Drainage 150 Left Back 150 Other: Voiding Method Toilet Toilet Toilet Ileal Conduit (Left) Ileal Conduit (Left) Ileal Conduit (Left) # Voids 2 3 - Exam Patient is awake, comfortable, no acute distress Examination of the heart S1 and S2 Examination of the lungs bilateral breath sounds are heard Abdomen is soft nontender Examination of lower extremities shows no evidence of edema 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 - Labs CBC & Chem 7: 01/09/25 07:15 01/09/25 07:15 Labs: Abnormal Lab Results - Last 24 Hours (Table) 01/08/25 01/08/25 01/09/25 Range/Units 17:08 20:25 07:15 RBC 3.24 L (4.10-5.20) 10*6/uL Hgb 10.4 L (12.0-15.0) g/dL Hct 31.5 L (37.2-46.3) % MCV 97.2 H (80.0-97.0) fL MCH 32.1 H (27.0-32.0) pg RDW 14.7 H (11.5-14.5) % Lymphocytes # 0.83 L (0.90-5.00) 10*3/uL Eosinophils # 0.42 H (0.04-0.35) 10*3/uL Sodium (137-145) mmol/L Carbon Dioxide (22-30) mmol/L BUN (7-17) mg/dL Creatinine (0.52-1.04) mg/dL Glucose (74-99) mg/dL POC Glucose (mg/dL) 198 H 228 H (70-110) mg/dL 01/09/25 01/09/25 Range/Units 07:15 12:21 RBC (4.10-5.20) 10*6/uL Hgb (12.0-15.0) g/dL Hct (37.2-46.3) % MCV (80.0-97.0) fL MCH (27.0-32.0) pg RDW (11.5-14.5) % Lymphocytes # (0.90-5.00) 10*3/uL Eosinophils # (0.04-0.35) 10*3/uL Sodium 134 L (137-145) mmol/L Carbon Dioxide 19 L (22-30) mmol/L BUN 36 H (7-17) mg/dL Creatinine 1.78 H (0.52-1.04) mg/dL Glucose 106 H (74-99) mg/dL POC Glucose (mg/dL) 151 H (70-110) mg/dL Microbiology - Last 24 Hours (Table) 01/07/25 12:26 Urine Culture - Final Urine,Voided Corynebacterium striatum group Assessment and Plan Assessment: 1. Acute kidney injury during last hospitalization in October 2024 with component of obstructive uropathy with left hydronephrosis status post left nephrostomy tu be. Renal function is improved since October with creatinine down to 1.7 from 2.5 mg/dL on 10/21/2024. Serum creatinine was elevated at 2.0 and patient was started on IV fluids. Creatinine now staying stable at 1.7 2. Left hydronephrosis with left nephrostomy tube. Nuclear scan showed 15% function on the left kidney and there are plans for left nephrectomy. Patient is scheduled for surgery on January 26 at [facility] 3. UTI maintained on antibiotics. Patient has history of recurrent urine tract infection 4. Chronic kidney disease stage IIIb with baseline creatinine 1.4 to 1.7 mg/dL. Previous UA has been completely benign Plan: DC IV fluids Decreased Coreg further as blood pressure remains on the lower side. Continue to monitor for now Continue with antibiotics Repeat labs in a.m. 2
[2025-01-09 17:12] LABS: Glucose,Whole Blood 122 mg/dL (70-110)
[2025-01-09 20:22] LABS: Glucose,Whole Blood 174 mg/dL (70-110)
--- NOTE | 2025-01-10 06:37 | P.PN ---
Subjective Progress Note Date: 01/09/25 This is a very pleasant 74-year-old female who presented to the emergency department with foul-smelling urine and drainage from the nephrostomy tube on the left with concerns of possible infection. Patient follows with Dr. Borges in the outpatient setting with a past medical history of asthma, coronary artery disease, chest pain with angina, heart failure, diabetes mellitus, GERD, hyperlipidemia, hypertension, previous myocardial infarction, osteoarthritis, renal disease with aortic stenosis chronic kidney disease stage V, previous pacer placement/depression. Patient is following with urology Dr. Clark outpatient who is arranging for a nephrectomy on January 26 at a [facility] facility. Patient has been following with infectious disease along with urology and nephrology outpatient and is status post nephrostomy placement. Patient reports she has been having ongoing recurrent urinary tract infections and has been maintained on multiple antibiotics although presented with some abdominal pain and concerns for urinary tract infection grossly getting worse over the last few days. On admission labs were reviewed revealing a normal white count of 6.32, hemoglobin stable at 11.4, platelets 176, sodium 135 with a potassium of 3.5, BUN 27 and creatinine 1.76 which appears improved from previous readings in between 2 and 3 creatinine, magnesium 1.8, urinalysis performed showing turbid urine with protein light esterase. Patient was admitted for concerns of acute urinary tract infection and was given a dose of Levaquin. Patient evaluated this morning and have consulted urology along with nephrology and infectious disease. 01/06/2025 Patient is evaluated in follow-up on the medical floor. Her urine culture from the nephrostomy is currently pending final micro sensitivities preliminary showing Corynebacterium stratum group. She does state that she has not had a bowel movement since Saturday and feels constipated. She usually uses Colace and Benefiber at home. She is okay with trialing MiraLAX. She is currently maintained on IV aztreonam with ID following closely. She is being hydrated with normal saline running at 70 mL/h. BUN today of 36 creatinine of 1.84. Sodium level of 134. Calcium of 10.6. 01/07/2025 Patient is seen in follow-up today reports to feeling somewhat improved and is awaiting finalized cultures to determine appropriate discharge antibiotics. Infectious disease following as culture showing Corynebacterium and requesting micro lab to run sensitivities and micro lab was contacted and this is a send out which will not be sent out until 01/08/2025 and then will await sensitivities to be resulted. Patient is afebrile with no reports of chest pain or shortness of breath. Urology following with no further recommendations other than continued course and nephrectomy on January 26 as scheduled. Nephrology following monitoring kidney functions and creatinine is 2 today. Encouraged increase activity as tolerated with getting up and walking more frequently. Continue gentle hydration per nephrology and will follow-up on repeat labs. 01/08/2025 Patient is seen in follow-up today awaiting culture sensitivities that were requested from micro lab which is a send out and will likely not be resulted until early next week. Patient is continued on antibiotics in the form of daptomycin with infectious disease following closely. Patient has multiple anti biotic allergies making it difficult to consider outpatient antibiotics. Patient was reporting a dull cough and chest x-ray will be obtained. Recommend incentive spirometer and increasing activity as tolerated and sitting up on the bed more frequently. Patient is afebrile with no reports of chest pain or palpitations. Patient is continued on gentle IV hydration per nephrology with concerns of developing mild volume overload. Creatinine is trending down and 1.7. 01/09/2025 Patient is seen and evaluated in follow-up with no acute overnight issues noted. Gentle hydration was continued showing some improvements in kidney functions with a creatinine of 1.78 and will discontinue IV fluids. Encouraged incentive spirometer use and getting up more frequently out of the bed. Awaiting finaliz ed culture sensitivities to determine appropriate antibiotics on discharge per infectious disease. Patient is afebrile with no reports of worsening shortness of breath. Patient has been tolerating diet with no reported nausea or vomiting. Will discuss with infectious disease and micro lab regarding discharge planning once sensitivities have resulted. REVIEW OF SYSTEMS: CONSTITUTIONAL: No fever, no malaise, no fatigue. HEENT: No recent visual problems or hearing problems. Denied any sore throat. CARDIOVASCULAR: No chest pain, orthopnea, PND, no palpitations, no syncope. PULMONARY: No shortness of breath, reports a slight cough, no hemoptysis. GASTROINTESTINAL: No diarrhea, reports of nausea, no vomiting, reports diffuse abdominal pain. NEUROLOGICAL: No headaches, no weakness, no numbness. PHYSICAL EXAMINATION: GENERAL: The patient is alert and oriented x3, not in any acute distress. Well developed, well nourished. Morbidly obese HEENT: Pupils are round and equally reacting to light. EOMI. No scleral icterus. No conjunctival pallor. Normocephalic, atraumatic. No pharyngeal erythema. No thyromegaly. CARDIOVASCULAR: S1 and S2 present. No murmurs, rubs, or gallops. PULMONARY: Diminished breath sounds bilaterally otherwise chest is clear to auscultation, small faint occasional expiratory wheezing noted ABDOMEN: Soft, nontender, nondistended, normoactive bowel sounds. No palpable organomegaly. MUSCULOSKELETAL: No joint swelling or deformity. EXTREMITIES: No cyanosis, clubbing, or pedal edema. NEUROLOGICAL: Gross neurological examination did not reveal any focal deficits. SKIN: No rashes. 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, status post left nephrostomy and tentatively scheduled for nephrectomy on January 26, 2025 at [facility] History of recurrent urinary tract infections Acute urinary tract infection, present on admission with a largely abnormal urinalysis, foul-smelling drainage and decreased urinary output, culture showing Cornibacterium stratum and awaiting culture sensitivities Constipation History of asthma, not in exacerbation Coronary artery disease history Acute on chronic kidney disease History of heart failure, unknown EF Diabetes mellitus type 2 History of GERD Hyperlipidemia Hypertension Previous myocardial infarctions History of osteoarthritis History of kidney failure stage V, scheduled for nephrectomy on the left January 26, 2025 at [facility] History of anxiety/depression Obesity with BMI of 39.3 aortic stenosis history and AICD placement with previous coronary artery bypass grafting and multiple stents previously GI prophylaxis DVT prophylaxis Full code Plan: Patient was admitted with concerns of foul-smelling odor and left nephrostomy follows with urology and nephrology closely along with infectious disease as patient has been hospitalized multiple times. Patient follows with urology outpatient and is being arranged for left nephrectomy at [facility] and tentatively scheduled for 01/26/2025 Patient is continued on daptomycin, preliminary cultures are showing Corynebacterium species with recommendations from ID and discussed with micro lab about ordering sensitivities. This is a send out and will be sent on 01/08/2025 and will await finalized sensitivities to determine appropriate antibiotics on discharge. Unsure if patient will require IV antibiotic therapy on discharge and case management is following verifying coverage, likely no discharge until least Saturday to arrange for discharge planning Follow-up on repeat labs and replace electrolytes per protocol. Discontinue IV hydration and monitor kidney functions closely. Encourage incentive spirometer use at least 10 times every hour while awake Continue monitoring Accu-Cheks AC and at bedtime and will adjust insulins accordingly Encouraged increased activity as tolerated and getting up out of the bed more frequently. The impression and plan of care has been dictated as a scribe by Cassidy Blevins, Nurse Practitioner as directed. Dr. Scottie MD I have performed a history and examination and MDM of this patient, discussed the same with the dictator, and agree with the dictator's assessment and plan as written ,documented as a scribe. Based on total visit time, I have performed more than 50% of the visit. Objective - Vital Signs Vital signs: Vital Signs Temp 98.0 F 01/09/25 07:28 Pulse 66 01/09/25 07:28 Resp 16 01/09/25 07:28 BP 122/74 01/09/25 07:28 Pulse Ox 98 01/09/25 08:03 FiO2 21 01/09/25 08:03 Intake & Output 01/08/25 01/09/25 01/09/25 18:59 06:59 18:59 Intake Total 1054 Balance 1054 Weight 90.3 kg Intake: Oral 1054 Other: Voiding Method Toilet Toilet Ileal Conduit (Left) Ileal Conduit (Left) # Voids 2 3 - Labs CBC & Chem 7: 01/09/25 07:15 01/09/25 07:15 Labs: Abnormal Lab Results - Last 24 Hours (Table) 01/08/25 01/08/25 01/08/25 Range/Units 12:29 17:08 20:25 RBC (4.10-5.20) 10*6/uL Hgb (12.0-15.0) g/dL Hct (37.2-46.3) % MCV (80.0-97.0) fL MCH (27.0-32.0) pg RDW (11.5-14.5) % Lymphocytes # (0.90-5.00) 10*3/uL Eosinophils # (0.04-0.35) 10*3/uL Sodium (137-145) mmol/L Carbon Dioxide (22-30) mmol/L BUN (7-17) mg/dL Creatinine (0.52-1.04) mg/dL Glucose (74-99) mg/dL POC Glucose (mg/dL) 170 H 198 H 228 H (70-110) mg/dL 01/09/25 01/09/25 Range/Units 07:15 07:15 RBC 3.24 L (4.10-5.20) 10*6/uL Hgb 10.4 L (12.0-15.0) g/dL Hct 31.5 L (37.2-46.3) % MCV 97.2 H (80.0-97.0) fL MCH 32.1 H (27.0-32.0) pg RDW 14.7 H (11.5-14.5) % Lymphocytes # 0.83 L (0.90-5.00) 10*3/uL Eosinophils # 0.42 H (0.04-0.35) 10*3/uL Sodium 134 L (137-145) mmol/L Carbon Dioxide 19 L (22-30) mmol/L BUN 36 H (7-17) mg/dL Creatinine 1.78 H (0.52-1.04) mg/dL Glucose 106 H (74-99) mg/dL POC Glucose (mg/dL) (70-110) mg/dL Microbiology - Last 24 Hours (Table) 01/07/25 12:26 Urine Culture - Final Urine,Voided Corynebacterium striatum group 01/04/25 16:20 Blood Culture - Preliminary Blood
[2025-01-10 07:22] LABS: Glucose,Whole Blood 105 mg/dL (70-110)
[2025-01-10 09:59] LABS: Basophils # (A) 0.03 10*3/uL (0.00-0.10); Basophils % (A) 0.5 %; Eosinophils # (A) 0.48 10*3/uL (0.04-0.35); Eosinophils % (A) 7.8 %; HCT 28.7 % (37.2-46.3); HGB 9.5 g/dL (12.0-15.0); Lymphocytes # (A) 0.54 10*3/uL (0.90-5.00); Lymphocytes % (A) 8.8 %; MCH 32.4 pg (27.0-32.0); MCHC 33.1 g/dL (32.0-37.0); Mean Platelet Volume 9.9 fL (9.5-12.2); Monocytes # (A) 0.42 10*3/uL (0.20-1.00); Monocytes % (A) 6.9 %; Neutrophils # (A) 4.62 10*3/uL (1.80-7.70); Neutrophils % (A) 75.5 %; Platelet Count 147 10*3/uL (140-440); RBC 2.93 10*6/uL (4.10-5.20); RDW 14.8 % (11.5-14.5); WBC 6.12 10*3/uL (4.50-10.00)
[2025-01-10 10:26] LABS: African American GFR (CKD) 31 (>60 ml/min/1.73 sqM); Anion Gap 8 mmol/L; Blood Urea Nitrogen 36 mg/dL (7-17); Calcium 9.5 mg/dL (8.4-10.2); Carbon Dioxide 21 mmol/L (22-30); Chloride 103 mmol/L (98-107); Glucose 163 mg/dL (74-99); Non-African American GFR(CKD) 27 (>60 ml/min/1.73 sqM); Potassium 5.2 mmol/L (3.5-5.1); Sodium 132 mmol/L (137-145)
[2025-01-10 12:44] LABS: Glucose,Whole Blood 138 mg/dL (70-110)
[2025-01-10 17:25] LABS: Glucose,Whole Blood 121 mg/dL (70-110)
--- NOTE | 2025-01-10 17:43 | P.PN ---
Subjective Progress Note Date: 01/10/25 Principal diagnosis: Reason for follow-up is left-sided pyelonephritis, multiple antibiotic allergies Patient is a 74-year-old female with multiple comorbidities, also have a left poorly functioning kidney with a complete obstruction at UPJ currently being treated with nephrostomy present to the hospital with pain to the left flank area cloudy urine concerning for left-sided pyonephritis. On today's evaluation that is 01/10/2024, patient did have a temperature of 98 F this morning and denies having any chills, patient is on room air and breathing comfortably no chest pain however complaining of some dry cough, the patient did not have any nausea vomiting abdominal pain or any diarrhea. Patient white count 6.86 creatinine 1.7 8 repeat urine culture growing co rynebacterium stratum Objective - Vital Signs Vital signs: Vital Signs Temp 97.3 F L 01/09/25 12:18 Pulse 64 01/09/25 12:18 Resp 16 01/09/25 12:18 BP 104/69 01/09/25 12:18 Pulse Ox 95 01/09/25 12:18 FiO2 21 01/09/25 08:03 Intake & Output 01/08/25 01/09/25 01/09/25 18:59 06:59 18:59 Intake Total 1054 Output Total 150 Balance 1054 -150 Weight 90.3 kg Intake: Oral 1054 Output: Drainage 150 Left Back 150 Other: Voiding Method Toilet Toilet Toilet Ileal Conduit (Left) Ileal Conduit (Left) Ileal Conduit (Left) # Voids 2 3 - Exam GENERAL DESCRIPTION: An elderly female lying in bed in no distress RESPIRATORY SYSTEM: Unlabored breathing , decreased breath sounds at bases HEART: S1 S2 regular rate and rhythm , ABDOMEN: Soft , no tenderness EXTREMITIES: No edema feet - Labs CBC & Chem 7: 01/10/25 09:48 01/10/25 09:48 Labs: Abnormal Lab Results - Last 24 Hours (Table) 01/08/25 01/08/25 01/09/25 Range/Units 17:08 20: 07:15 RBC 3.24 L (4.10-5.20) 10*6/uL Hgb 10.4 L (12.0-15.0) g/dL Hct 31.5 L (37.2-46.3) % MCV 97.2 H (80.0-97.0) fL MCH 32.1 H (27.0-32.0) pg RDW 14.7 H (11.5-14.5) % Lymphocytes # 0.83 L (0.90-5.00) 10*3/uL Eosinophils # 0.42 H (0.04-0.35) 10*3/uL Sodium (137-145) mmol/L Carbon Dioxide (22-30) mmol/L BUN (7-17) mg/dL Creatinine (0.52-1.04) mg/dL Glucose (74-99) mg/dL POC Glucose (mg/dL) 198 H 228 H (70-110) mg/dL 01/09/25 01/09/25 Range/Units 07:15 12:21 RBC (4.10-5.20) 10*6/uL Hgb (12.0-15.0) g/dL Hct (37.2-46.3) % MCV (80.0-97.0) fL MCH (27.0-32.0) pg RDW (11.5-14.5) % Lymphocytes # (0.90-5.00) 10*3/uL Eosinophils # (0.04-0.35) 10*3/uL Sodium 134 L (137-145) mmol/L Carbon Dioxide 19 L (22-30) mmol/L BUN 36 H (7-17) mg/dL Creatinine 1.78 H (0.52-1.04) mg/dL Glucose 106 H (74-99) mg/dL POC Glucose (mg/dL) 151 H (70-110) mg/dL Microbiology - Last 24 Hours (Table) 01/07/25 12:26 Urine Culture - Final Urine,Voided Corynebacterium striatum group Assessment and Plan (1) Allergy to multiple antibiotics Current Visit: Yes Status: Acute Code(s): Z88.1 - ALLERGY STATUS TO OTHER ANTIBIOTIC AGENTS SNOMED Code(s): 244010026 (2) UTI (urinary tract infection) Current Visit: Yes Status: Acute Code(s): N39.0 - URINARY TRACT INFECTION, SITE NOT SPECIFIED SNOMED Code(s): 68931424 Plan: 1patient with a complicated history presented to hospital with cloudy urine foul-smelling and did have pain to the left flank area this patient did have history of nephrostomy placed in October 2024 with a significantly positive UA concerning for complicated UTI likely from enteric gram-negative pathogen 2patient with multiple antibiotic ALLERGIES that would limit the number of ant ibiotic safe to use 3patient urine is growing corynebacterium stratum which is a skin kriss however the patient did have a nephrostomy for a couple of months now and may be the likely etiology agent, 4patient repeat urine is growing the same pathogen currently on daptomycin 5we are currently awaiting sensitivity to determine discharge antibiotics, question concern answered Dictation was produced using [employer] dictation software. please excuse any grammatical, word or spelling errors. Time with Patient: Less than 30
[2025-01-10] MEDS ORDERED: BENZOCAINE/MENTHOL LOZENG 1 EACH LOZENGE MUCOUS MEM PRN (17:44)
--- NOTE | 2025-01-10 17:44 | P.PN ---
Subjective Progress Note Date: 01/10/25 Principal diagnosis: Reason for follow-up is left-sided pyelonephritis, multiple antibiotic allergies Patient is a 74-year-old female with multiple comorbidities, also have a left poorly functioning kidney with a complete obstruction at [facility]J currently being treated with nephrostomy present to the hospital with pain to the left flank area cloudy urine concerning for left-sided pyonephritis. On today's evaluation that is 01/10/2025, Patient is afebrile patient is curr ently on room air and denies having any shortness of breath, the patient denies any chest pain still have some dry cough and sore throat, the patient denies any nausea vomiting did not have any abdominal pain and no diarrhea. Patient was advised 6.12 creatinine is 1.83 Objective - Vital Signs Vital signs: Vital Signs Temp 98.6 F 01/10/25 12:34 Pulse 66 01/10/25 12:34 Resp 16 01/10/25 12:34 BP 102/62 01/10/25 12:34 Pulse Ox 98 01/10/25 12:34 FiO2 21 01/10/25 10:18 Intake & Output 01/09/25 01/10/25 01/10/25 18:59 06:59 18:59 Intake Total 1054 1054 Output Total 150 100 150 Balance 904 -100 904 Weight 93.6 kg Intake: Oral 1054 1054 Output: Drainage 150 100 150 Left Back 150 100 150 Other: Voiding Method Toilet Toilet Toilet Ileal Conduit (Left) Ileal Conduit (Left) Ileal Conduit (Left) # Voids 4 3 2 - Exam GENERAL DESCRIPTION: An elderly female lying in bed in no distress RESPIRATORY SYSTEM: Unlabored breathing , decreased breath sounds at bases HEART: S1 S2 regular rate and rhythm , ABDOMEN: Soft , no tenderness EXTREMITIES: No edema feet - Labs CBC & Chem 7: 01/10/25 09:48 01/10/25 09:48 Labs: Abnormal Lab Results - Last 24 Hours (Table) 01/09/25 01/09/25 01/10/25 Range/Units 07:15 20:20 09:48 RBC 2.93 L (4.10-5.20) 10*6/uL Hgb 9.5 L (12.0-15.0) g/dL Hct 28.7 L (37.2-46.3) % MCV 98.0 H (80.0-97.0) fL MCH 32.4 H (27.0-32.0) pg RDW 14.8 H (11.5-14.5) % Lymphocytes # 0.54 L (0.90-5.00) 10*3/uL Eosinophils # 0.48 H (0.04-0.35) 10*3/uL Sodium (137-145) mmol/L Potassium (3.5-5.1) mmol/L Carbon Dioxide (22-30) mmol/L BUN (7-17) mg/dL Creatinine (0.52-1.04) mg/dL Glucose (74-99) mg/dL POC Glucose (mg/dL) 174 H (70-110) mg/dL Hemoglobin A1c 6.8 H (<=6.0) % 01/10/25 01/10/25 01/10/25 Range/Units 09:48 12:37 17:24 RBC (4.10-5.20) 10*6/uL Hgb (12.0-15.0) g/dL Hct (37.2-46.3) % MCV (80.0-97.0) fL MCH (27.0-32.0) pg RDW (11.5-14.5) % Lymphocytes # (0.90-5.00) 10*3/uL Eosinophils # (0.04-0.35) 10*3/uL Sodium 132 L (137-145) mmol/L Potassium 5.2 H (3.5-5.1) mmol/L Carbon Dioxide 21 L (22-30) mmol/L BUN 36 H (7-17) mg/dL Creatinine 1.83 H (0.52-1.04) mg/dL Glucose 163 H (74-99) mg/dL POC Glucose (mg/dL) 138 H 121 H (70-110) mg/dL Hemoglobin A1c (<=6.0) % Microbiology - Last 24 Hours (Table) 01/04/25 16:20 Blood Culture - Final Blood Assessment and Plan (1) Allergy to multiple antibiotics Current Visit: Yes Status: Acute Code(s): Z88.1 - ALLERGY STATUS TO OTHER ANTIBIOTIC AGENTS SNOMED Code(s): 624195790 (2) UTI (urinary tract infection) Current Visit: Yes Status: Acute Code(s): N39.0 - URINARY TRACT INFECTION, SITE NOT SPECIFIED SNOMED Code(s): 72216337 Plan: 1patient with a complicated history presented to hospital with cloudy urine fou l-smelling and did have pain to the left flank area this patient did have history of nephrostomy placed in October 2024 with a significantly positive UA concerning for complicated UTI likely from enteric gram-negative pathogen 2patient with multiple antibiotic ALLERGIES that would limit the number of antibiotic safe to use 3patient urine is growing corynebacterium stratum which is a skin kriss however the patient did have a nephrostomy for a couple of months now and may be the likely etiology agent, 4patient repeat urine is growing the same pathogen currently on daptomycin with the sensitivity still pending to determine discharge antibiotics we will add some cervical lozenges for symptom of sore throat Daughter at the bedside question concern answered Dictation was produced using [employer] dictation software. please excuse any grammatical, word or spelling errors. Time with Patient: Less than 30
[2025-01-10 20:37] LABS: Glucose,Whole Blood 195 mg/dL (70-110)
--- NOTE | 2025-01-10 22:32 | P.PN ---
Subjective Progress Note Date: 01/10/25 This is a very pleasant 74-year-old female who presented to the emergency department with foul-smelling urine and drainage from the nephrostomy tube on the left with concerns of possible infection. Patient follows with Dr. Borges in the outpatient setting with a past medical history of asthma, coronary artery disease, chest pain with angina, heart failure, diabetes mellitus, GERD, hyperlipidemia, hypertension, previous myocardial infarction, osteoarthritis, renal disease with aortic stenosis chronic kidney disease stage V, previous pacer placement/depression. Patient is following with urology Dr. Clark outpatient who is arranging for a nephrectomy on January 26 at a [place] facility. Patient has been following with infectious disease along with urology and nephrology outpatient and is status post nephrostomy placement. Patient reports she has been having ongoing recurrent urinary tract infections and has been maintained on multiple antibiotics although presented with some abdominal pain and concerns for urinary tract infection grossly getting worse over the last few days. On admission labs were reviewed revealing a normal white count of 6.32, hemoglobin stable at 11.4, platelets 176, sodium 135 with a potassium of 3.5, BUN 27 and creatinine 1.76 which appears improved from previous readings in between 2 and 3 creatinine, magnesium 1.8, urinalysis performed showing turbid urine with protein light esterase. Patient was admitted for concerns of acute urinary tract infection and was given a dose of Levaquin. Patient evaluated this morning and have consulted urology along with nephrology and infectious disease. 01/06/2025 Patient is evaluated in follow-up on the medical floor. Her urine culture from the nephrostomy is currently pending final micro sensitivities preliminary showing Corynebacterium stratum group. She does state that she has not had a bowel movement since Saturday and feels constipated. She usually uses Colace and Benefiber at home. She is okay with trialing MiraLAX. She is currently maintained on IV aztreonam with ID following closely. She is being hydrated with normal saline running at 70 mL/h. BUN today of 36 creatinine of 1.84. Sodium level of 134. Calcium of 10.6. 01/07/2025 Patient is seen in follow-up today reports to feeling somewhat improved and is awaiting finalized cultures to determine appropriate discharge antibiotics. Infectious disease following as culture showing Corynebacterium and requesting micro lab to run sensitivities and micro lab was contacted and this is a send out which will not be sent out until 01/08/2025 and then will await sensitivities to be resulted. Patient is afebrile with no reports of chest pain or shortness of breath. Urology following with no further recommendations other than continued course and nephrectomy on January 26 as scheduled. Nephrology following monitoring kidney functions and creatinine is 2 today. Encouraged increase activity as tolerated with getting up and walking more frequently. Continue gentle hydration per nephrology and will follow-up on repeat labs. 01/08/2025 Patient is seen in follow-up today awaiting culture sensitivities that were requested from micro lab which is a send out and will likely not be resulted until early next week. Patient is continued on antibiotics in the form of daptomycin with infectious disease following closely. Patient has multiple anti biotic allergies making it difficult to consider outpatient antibiotics. Patient was reporting a dull cough and chest x-ray will be obtained. Recommend incentive spirometer and increasing activity as tolerated and sitting up on the bed more frequently. Patient is afebrile with no reports of chest pain or palpitations. Patient is continued on gentle IV hydration per nephrology with concerns of developing mild volume overload. Creatinine is trending down and 1.7. 01/09/2025 Patient is seen and evaluated in follow-up with no acute overnight issues noted. Gentle hydration was continued showing some improvements in kidney functions with a creatinine of 1.78 and will discontinue IV fluids. Encouraged incentive spirometer use and getting up more frequently out of the bed. Awaiting finaliz ed culture sensitivities to determine appropriate antibiotics on discharge per infectious disease. Patient is afebrile with no reports of worsening shortness of breath. Patient has been tolerating diet with no reported nausea or vomiting. Will discuss with infectious disease and micro lab regarding discharge planning once sensitivities have resulted. 01/10/2025 Patient is seen today with nephrology and infectious disease following. Continuing to await culture sensitivities to determine appropriate antibiotics on discharge. Will call micro lab to inquire about some doubt that was apparently sent out on Saturday and remains pending. Patient is afebrile with no reported chest pain or shortness of breath. Patient reports tolerating diet and potassium mildly elevated at 5.3, recommend low potassium diet. Encouraged increased activity as tolerated and getting out of the bed more frequently. REVIEW OF SYSTEMS: CONSTITUTIONAL: No fever, no malaise, no fatigue. HEENT: No recent visual problems or hearing problems. Denied any sore throat. CARDIOVASCULAR: No chest pain, orthopnea, PND, no palpitations, no syncope. PULMONARY: No shortness of breath, reports a slight cough, no hemoptysis. GASTROINTESTINAL: No diarrhea, reports of nausea, no vomiting, reports diffuse abdominal pain. NEUROLOGICAL: No headaches, no weakness, no numbness. PHYSICAL EXAMINATION: GENERAL: The patient is alert and oriented x3, not in any acute distress. Well developed, well nourished. Morbidly obese HEENT: Pupils are round and equally reacting to light. EOMI. No scleral icterus. No conjunctival pallor. Normocephalic, atraumatic. No pharyngeal erythema. No thyromegaly. CARDIOVASCULAR: S1 and S2 present. No murmurs, rubs, or gallops. PULMONARY: Diminished breath sounds bilaterally otherwise chest is clear to auscultation, small faint occasional expiratory wheezing noted ABDOMEN: Soft, nontender, nondistended, normoactive bowel sounds. No palpable organomegaly. MUSCULOSKELETAL: No joint swelling or deformity. EXTREMITIES: No cyanosis, clubbing, or pedal edema. NEUROLOGICAL: Gross neurological examination did not reveal any focal deficits. SKIN: No rashes. 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, status post left nephrostomy and tentatively scheduled for nephrectomy on January 26, 2025 at [place] History of recurrent urinary tract infections Acute urinary tract infection, present on admission with a largely abnormal urinalysis, foul-smelling drainage and decreased urinary output, culture showing Cornibacterium stratum and awaiting culture sensitivities Constipation, improved and having bowel movements History of asthma, not in exacerbation Coronary artery disease history Acute on chronic kidney disease History of heart failure, unknown EF Diabetes mellitus type 2 History of GERD Hyperlipidemia Hypertension Previous myocardial infarctions History of osteoarthritis History of kidney failure stage V, scheduled for nephrectomy on the left January 26, 2025 at [place] History of anxiety/depression Obesity with BMI of 39.3 aortic stenosis history and AICD placement with previous coronary artery bypass grafting and multiple stents previously GI prophylaxis DVT prophylaxis Full code Plan: Patient was admitted with concerns of foul-smelling odor and left nephrostomy follows with urology and nephrology closely along with infectious disease as patient has been hospitalized multiple times. Patient follows with urology out patient and is being arranged for left nephrectomy at [place] and tentatively scheduled for 01/26/2025 Patient is continued on daptomycin, preliminary cultures are showing Corynebacterium species with recommendations from ID and discussed with micro lab about ordering sensitivities. This is a send out and will be sent on 01/08/2025 and will await finalized sensitivities to determine appropriate ant ibiotics on discharge. Unsure if patient will require IV antibiotic therapy on discharge and case management is following verifying coverage, likely no discharge until least Saturday to arrange for discharge planning Follow-up on repeat labs and replace electrolytes per protocol. Discontinue IV hydration and monitor kidney functions closely. Encourage incentive spirometer use at least 10 times every hour while awake Continue monitoring Accu-Cheks AC and at bedtime and will adjust insulins accor dingly Encouraged increased activity as tolerated and getting up out of the bed more frequently. Will discuss with infectious disease and micro lab regarding possible discharge planning in the next 24 hours The impression and plan of care has been dictated as a scribe by Cassidy Blevins, Nurse Practitioner as directed. Dr. Scottie MD I have performed a history and examination and MDM of this patient, discussed the same with the dictator, and agree with the dictator's assessment and plan as written ,documented as a scribe. Based on total visit time, I have performed more than 50% of the visit. Objective - Vital Signs Vital signs: Vital Signs Temp 98.6 F 01/10/25 01:44 Pulse 70 01/10/25 01:44 Resp 16 01/10/25 01:44 BP 112/62 01/10/25 01:44 Pulse Ox 95 01/10/25 01:44 FiO2 21 01/09/25 08:03 Intake & Output 01/09/25 01/09/25 01/10/25 06:59 18:59 06:59 Intake Total 1054 Output Total 100 150 100 Balance -100 904 -100 Weight 90.3 kg 93.6 kg Intake: Oral 1054 Output: Drainage 100 150 100 Left Back 100 150 100 Other: Voiding Method Toilet Toilet Toilet Ileal Conduit (Left) Ileal Conduit (Left) Ileal Conduit (Left) # Voids 3 4 3 - Labs CBC & Chem 7: 01/10/25 09:48 01/10/25 09:48 Labs: Abnormal Lab Results - Last 24 Hours (Table) 01/09/25 01/09/25 01/09/25 Range/Units 07:15 07:15 07:15 RBC 3.24 L (4.10-5.20) 10*6/uL Hgb 10.4 L (12.0-15.0) g/dL Hct 31.5 L (37.2-46.3) % MCV 97.2 H (80.0-97.0) fL MCH 32.1 H (27.0-32.0) pg RDW 14.7 H (11.5-14.5) % Lymphocytes # 0.83 L (0.90-5.00) 10*3/uL Eosinophils # 0.42 H (0.04-0.35) 10*3/uL Sodium 134 L (137-145) mmol/L Carbon Dioxide 19 L (22-30) mmol/L BUN 36 H (7-17) mg/dL Creatinine 1.78 H (0.52-1.04) mg/dL Glucose 106 H (74-99) mg/dL POC Glucose (mg/dL) (70-110) mg/dL Hemoglobin A1c 6.8 H (<=6.0) % 01/09/25 01/09/25 01/09/25 Range/Units 12:21 17:06 20:20 RBC (4.10-5.20) 10*6/uL Hgb (12.0-15.0) g/dL Hct (37.2-46.3) % MCV (80.0-97.0) fL MCH (27.0-32.0) pg RDW (11.5-14.5) % Lymphocytes # (0.90-5.00) 10*3/uL Eosinophils # (0.04-0.35) 10*3/uL Sodium (137-145) mmol/L Carbon Dioxide (22-30) mmol/L BUN (7-17) mg/dL Creatinine (0.52-1.04) mg/dL Glucose (74-99) mg/dL POC Glucose (mg/dL) 151 H 122 H 174 H (70-110) mg/dL Hemoglobin A1c (<=6.0) % Microbiology - Last 24 Hours (Table) 01/04/25 16:20 Blood Culture - Final Blood
--- NOTE | 2025-01-11 07:10 | P.PN ---
Subjective Patient is seen for follow-up for chronic kidney disease and acute kidney injury. C/o being bloated and having leg swelling IVF discontinued yesterday. No shortness of breath Serum creatinine 1.8 today. Objective - Vital Signs Vital signs: Vital Signs Temp 97.8 F 01/11/25 01:19 Pulse 64 01/11/25 01:19 Resp 17 01/11/25 01:19 BP 115/72 01/11/25 01:19 Pulse Ox 98 01/11/25 01:19 FiO2 21 01/10/25 10:18 Intake & Output 01/10/25 01/11/25 01/11/25 18:59 06:59 18:59 Intake Total 1054 Output Total 150 100 Balance 904 -100 Weight 94.4 kg Intake: Oral 1054 Output: Drainage 150 Left Back 150 Urine 100 Other: Voiding Method Toilet Toilet Ileal Conduit (Left) Ileal Conduit (Left) # Voids 1 - Exam Patient is awake, comfortable, no acute distress Examination of the heart S1 and S2 Examination of the lungs bilateral breath sounds are heard Abdomen is soft nontender Examination of lower extremities shows 1+ edema PRACTICING MD ANESTHESIOLOGIST exam grossly intact - Labs CBC & Chem 7: 01/10/25 09:48 01/10/25 09:48 Labs: Abnormal Lab Results - Last 24 Hours (Table) 01/10/25 01/10/25 01/10/25 Range/Units 09:48 09:48 12:37 RBC 2.93 L (4.10-5.20) 10*6/uL Hgb 9.5 L (12.0-15.0) g/dL Hct 28.7 L (37.2-46.3) % MCV 98.0 H (80.0-97.0) fL MCH 32.4 H (27.0-32.0) pg RDW 14.8 H (11.5-14.5) % Lymphocytes # 0.54 L (0.90-5.00) 10*3/uL Eosinophils # 0.48 H (0.04-0.35) 10*3/uL Sodium 132 L (137-145) mmol/L Potassium 5.2 H (3.5-5.1) mmol/L Carbon Dioxide 21 L (22-30) mmol/L BUN 36 H (7-17) mg/dL Creatinine 1.83 H (0.52-1.04) mg/dL Glucose 163 H (74-99) mg/dL POC Glucose (mg/dL) 138 H (70-110) mg/dL 01/10/25 01/10/25 Range/Units 17:24 20:36 RBC (4.10-5.20) 10*6/uL Hgb (12.0-15.0) g/dL Hct (37.2-46.3) % MCV (80.0-97.0) fL MCH (27.0-32.0) pg RDW (11.5-14.5) % Lymphocytes # (0.90-5.00) 10*3/uL Eosinophils # (0.04-0.35) 10*3/uL Sodium (137-145) mmol/L Potassium (3.5-5.1) mmol/L Carbon Dioxide (22-30) mmol/L BUN (7-17) mg/dL Creatinine (0.52-1.04) mg/dL Glucose (74-99) mg/dL POC Glucose (mg/dL) 121 H 195 H (70-110) mg/dL Microbiology - Last 24 Hours (Table) 01/04/25 16:20 Blood Culture - Final Blood Assessment and Plan Assessment: 1. Acute kidney injury during last hospitalization in October 2024 with component of obstructive uropathy with left hydronephrosis status post left nephrostomy tube. Renal function is improved since October with creatinine down to 1.7 from 2.5 mg/dL on 10/21/2024. Serum creatinine was elevated at 2.0 and patient was started on IV fluids. Discontinued yesterday. Creatinine now staying stable at 1.7-1.8 2. Left hydronephrosis with left nephrostomy tube. Nuclear scan showed 15% f unction on the left kidney and there are plans for left nephrectomy. Patient is scheduled for surgery on January 26 at [facility] 3. UTI maintained on antibiotics. Patient has history of recurrent urine tract infection 4. Chronic kidney disease stage IIIb with baseline creatinine 1.4 to 1.7 mg/dL. Previous UA has been completely benign Plan: IV lasix x1 Continue off of IVF. Decreased Coreg further as blood pressure remains on the lower side. Continue to monitor for now Continue with antibiotics Repeat labs in a.m. 2
[2025-01-11] MEDS ORDERED: FUROSEMIDE 10 MG/ML 2 ML VIAL IV ONE (07:15)
[2025-01-11 07:18] LABS: Glucose,Whole Blood 129 mg/dL (70-110)
[2025-01-11 09:02] LABS: BUN/Creat Ratio 19.95 Ratio (12.00-20.00); Blood Urea Nitrogen 37.9 mg/dL (9.0-27.0); Calcium 9.1 mg/dL (8.7-10.3); Carbon Dioxide 18.1 mmol/L (21.6-31.8); Chloride 106 mmol/L (96-109); Glucose 160 mg/dL (70-110); Potassium 5.6 mmol/L (3.5-5.5); Sodium 133 mmol/L (135-145)
--- NOTE | 2025-01-11 09:11 | CT ---
EXAMINATION TYPE: CT brain wo con DATE OF EXAM: 01/11/2025 9:03 AM COMPARISON: None. CLINICAL INDICATION: Female, 74 years old with history of fall struck head, fall struck head TECHNIQUE: CT of the brain is performed utilizing 3 mm thick sections through the posterior fossa and 3 mm thick sections through the remaining calvarium. Study is performed within 24 hours of arrival to the hospital. Contrast used: mL of , (none if empty) CT DLP: 1165 mGycm, Automated exposure control for dose reduction was used. FINDINGS: No abnormal hyperdensity is present to suggest an acute intracranial hemorrhage. No mass lesion is evident. No acute infarcts are evident. Some mild periventricular white matter hypodensity is present, chronic ally ischemic changes. Ventricles and sulci are appropriate for the patient age. Paranasal sinuses and mastoid air cells within the [id number] are clear. IMPRESSION: 1. No acute intracranial process. Follow up MRI can be performed as clinically indicated. 2. Mild chronic-appearing. Ventricular white matter ischemic type changes [facility], , 01/11/2025 9:09 AM
--- NOTE | 2025-01-11 09:13 | XR ---
EXAMINATION TYPE: XR chest 2V DATE OF EXAM: 01/11/2025 9:04 AM COMPARISON: Chest radiographs from 01/08/2025 TECHNIQUE: XR chest 2V Frontal and lateral views of the chest. CLINICAL INDICATION:Female, 74 years old with history of fall struck ribs on the left; pain FINDINGS: Lungs/Pleura: There is no evidence of pleural effusion, focal consolidation, or pneumothorax. Pulmonary vascularity: Unremarkable. Heart/mediastinum: Cardiomediastinal silhouette is enlarged and stable. Atherosclerotic calcificatio ns are seen in the aorta. Aortic valvular stent graft. Single-lead cardiac conduction device overlyin g the left hemithorax with lead projecting over the right ventricle. This obscures the left midlung. Musculoskeletal: No acute osseous pathology. Midline sternotomy wires are noted and stable. Right janeth ulder arthroplasty change. Other: Ureteral stent identified on lateral view. IMPRESSION: Chronic changes without acute pulmonary process. No discrete rib fracture identified. Consider furthe r evaluation with CT chest if there is continuing clinical concern. [facility], , 01/11/2025 9:11 AM
[2025-01-11] MEDS: FUROSEMIDE 10 MG/ML 4 ML VIAL IV ONE (09:31)
[2025-01-11 12:05] LABS: Glucose,Whole Blood 201 mg/dL (70-110)
[2025-01-11] MEDS: SODIUM ZIRCONIUM CYCLOSILICATE 10 GM PACKET PO ONE (13:42)
--- NOTE | 2025-01-11 14:19 | P.PN ---
Subjective Progress Note Date: 01/11/25 This is a very pleasant 74-year-old female who presented to the emergency department with foul-smelling urine and drainage from the nephrostomy tube on the left with concerns of possible infection. Patient follows with Dr. Borges in the outpatient setting with a past medical history of asthma, coronary artery disease, chest pain with angina, heart failure, diabetes mellitus, GERD, hyperlipidemia, hypertension, previous myocardial infarction, osteoarthritis, renal disease with aortic stenosis chronic kidney disease stage V, previous pacer placement/depression. Patient is following with urology Dr. Clark outpatient who is arranging for a nephrectomy on January 26 at a [place] facility. Patient has been following with infectious disease along with urology and nephrology outpatient and is status post nephrostomy placement. Patient reports she has been having ongoing recurrent urinary tract infections and has been maintained on multiple antibiotics although presented with some abdominal pain and concerns for urinary tract infection grossly getting worse over the last few days. On admission labs were reviewed revealing a normal white count of 6.32, hemoglobin stable at 11.4, platelets 176, sodium 135 with a potassium of 3.5, BUN 27 and creatinine 1.76 which appears improved from previous readings in between 2 and 3 creatinine, magnesium 1.8, urinalysis performed showing turbid urine with protein light esterase. Patient was admitted for concerns of acute urinary tract infection and was given a dose of Levaquin. Patient evaluated this morning and have consulted urology along with nephrology and infectious disease. 01/06/2025 Patient is evaluated in follow-up on the medical floor. Her urine culture from the nephrostomy is currently pending final micro sensitivities preliminary showing Corynebacterium stratum group. She does state that she has not had a bowel movement since Saturday and feels constipated. She usually uses Colace and Benefiber at home. She is okay with trialing MiraLAX. She is currently maintained on IV aztreonam with ID following closely. She is being hydrated with normal saline running at 70 mL/h. BUN today of 36 creatinine of 1.84. Sodium level of 134. Calcium of 10.6. 01/07/2025 Patient is seen in follow-up today reports to feeling somewhat improved and is awaiting finalized cultures to determine appropriate discharge antibiotics. Infectious disease following as culture showing Corynebacterium and requesting micro lab to run sensitivities and micro lab was contacted and this is a send out which will not be sent out until 01/08/2025 and then will await sensitivities to be resulted. Patient is afebrile with no reports of chest pain or shortness of breath. Urology following with no further recommendations other than continued course and nephrectomy on January 26 as scheduled. Nephrology following monitoring kidney functions and creatinine is 2 today. Encouraged increase activity as tolerated with getting up and walking more frequently. Continue gentle hydration per nephrology and will follow-up on repeat labs. 01/08/2025 Patient is seen in follow-up today awaiting culture sensitivities that were requested from micro lab which is a send out and will likely not be resulted until early next week. Patient is continued on antibiotics in the form of daptomycin with infectious disease following closely. Patient has multiple anti biotic allergies making it difficult to consider outpatient antibiotics. Patient was reporting a dull cough and chest x-ray will be obtained. Recommend incentive spirometer and increasing activity as tolerated and sitting up on the bed more frequently. Patient is afebrile with no reports of chest pain or palpitations. Patient is continued on gentle IV hydration per nephrology with concerns of developing mild volume overload. Creatinine is trending down and 1.7. 01/09/2025 Patient is seen and evaluated in follow-up with no acute overnight issues noted. Gentle hydration was continued showing some improvements in kidney functions with a creatinine of 1.78 and will discontinue IV fluids. Encouraged incentive spirometer use and getting up more frequently out of the bed. Awaiting finaliz ed culture sensitivities to determine appropriate antibiotics on discharge per infectious disease. Patient is afebrile with no reports of worsening shortness of breath. Patient has been tolerating diet with no reported nausea or vomiting. Will discuss with infectious disease and micro lab regarding discharge planning once sensitivities have resulted. 01/10/2025 Patient is seen today with nephrology and infectious disease following. Continuing to await culture sensitivities to determine appropriate antibiotics on discharge. Will call micro lab to inquire about some doubt that was apparently sent out on Saturday and remains pending. Patient is afebrile with no reported chest pain or shortness of breath. Patient reports tolerating diet and potassium mildly elevated at 5.3, recommend low potassium diet. Encouraged increased activity as tolerated and getting out of the bed more frequently. 01/11/2025 Patient is seen and evaluated in follow-up today with infectious disease following. Patient is maintained on IV antibiotics in the form of daptomycin and will continue. Micro lab contacted and per staff, sensitivities are in progress although will likely not be resulted until , 01/14/2025. Patient being followed by nephrology was maintained on gentle hydration although given a dose of Lasix this morning and kidney function slightly worse at 1.9 creatinine today. Potassium elevated as well recommend low potassium diet and will give a dose of Lokelma. Per nursing staff patient was getting up to the bathroom and fell and struck her head on the bathroom sink and also landed on her left side reporting some left-sided rib pain and tenderness. Nephrostomy evaluated and appears stable and is draining. Will order CT brain also x-ray. Encourage incentive spirometer and will have PT/OT therapy evaluate the patient. Case management is aware and we are awaiting finalized cultures to determine discharge antibiotics. REVIEW OF SYSTEMS: CONSTITUTIONAL: No fever, no malaise, no fatigue. HEENT: No recent visual problems or hearing problems. Denied any sore throat. CARDIOVASCULAR: No chest pain, orthopnea, PND, no palpitations, no syncope. PULMONARY: No shortness of breath, reports a slight cough, no hemoptysis. Reports of some rib pain on the left GASTROINTESTINAL: No diarrhea, no further reports of nausea, no vomiting, reports diffuse abdominal pain. NEUROLOGICAL: No headaches, reports of generalized weakness, no numbness. PHYSICAL EXAMINATION: GENERAL: The patient is alert and oriented x3, not in any acute distress. Well developed, well nourished. Morbidly obese HEENT: Pupils are round and equally reacting to light. EOMI. No scleral icterus. No conjunctival pallor. Normocephalic, atraumatic. No pharyngeal erythema. No thyromegaly. CARDIOVASCULAR: S1 and S2 present. No murmurs, rubs, or gallops. PULMONARY: Diminished breath sounds bilaterally otherwise chest is clear to auscultation, small faint occasional expiratory wheezing noted ABDOMEN: Soft, nontender, nondistended, normoactive bowel sounds. No palpable organomegaly. MUSCULOSKELETAL: No joint swelling or deformity. EXTREMITIES: No cyanosis, clubbing, or pedal edema. NEUROLOGICAL: Gross neurological examination did not reveal any focal deficits. SKIN: No rashes. 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, status post left nephrostomy and tentatively scheduled for nephrectomy on January 26, 2025 at [place] History of recurrent urinary tract infections Acute urinary tract infection, present on admission with a largely abnormal urin alysis, foul-smelling drainage and decreased urinary output, culture showing Cornibacterium stratum and awaiting culture sensitivities for micro lab, cultures will not be available until , 01/14/2025 Constipation, improved and having bowel movements Generalized weakness with gait dysfunction and fall this morning 01/11/2025 striking head and left side of ribs, CT head negative and x-ray reveals no rib fractures History of asthma, not in exacerbation Coronary artery disease history Acute on chronic kidney disease History of heart failure, unknown EF 30 Diabetes mellitus type 2 History of GERD Hyperlipidemia Hypertension Previous myocardial infarctions History of osteoarthritis History of kidney failure stage V, scheduled for nephrectomy on the left January 26, 2025 at [place] History of anxiety/depression Obesity with BMI of 39.3 aortic stenosis history and AICD placement with previous coronary artery bypass grafting and multiple stents previously GI prophylaxis DVT prophylaxis Full code Plan: Patient was admitted with concerns of foul-smelling odor and left nephrostomy follows with urology and nephrology closely along with infectious disease as patient has been hospitalized multiple times. Patient follows with urology outpatient and is being arranged for left nephrectomy at [place] and tentatively scheduled for 01/26/2025 Patient is continued on daptomycin, preliminary cultures are showing Corynebacterium species with recommendations from ID and discussed with micro lab about ordering sensitivities. This is a send out and will be sent on 01/08/2025 and will await finalized sensitivities to determine appropriate antibiotics on discharge. Unsure if patient will require IV antibiotic therapy on discharge and case management is following verifying coverage, likely no discharge until least to arrange for discharge planning Follow-up on repeat labs and replace electrolytes per protocol. IV fluids have been discontinued and creatinine is 1.9 today and given a dose of IV Lasix. Potassium 5.6 and will give a dose of Lokelma and follow-up on repeat labs. Recommend low potassium diet Encourage incentive spirometer use at least 10 times every hour while awake Continue monitoring Accu-Cheks AC and at bedtime and will adjust insulins accordingly Encouraged increased activity as tolerated and getting up out of the bed more frequently. Per nursing staff patient took a fall today in the bathroom and struck her head on the counter with no loss of consciousness and no obvious injury. Patient was also reporting some left-sided rib pain due to the fall and chest x-ray was performed with no rib fractures noted. CT brain was done showing no acute process Again contacted micro lab and cultures will not be available till at least , 01/14/2025. Infectious disease following and will be awaiting culture sensitivities to determine appropriate discharge antibiotics Will have PT/OT therapy evaluate The impression and plan of care has been dictated by Cassidy Blevins, Nurse Practitioner as directed. Dr. Marv MD I have performed a history and examination and MDM of this patient, discussed the same with the dictator, and agree with the dictator's assessment and plan as written ,documented as a scribe. Based on total visit time, I have performed more than 50% of the visit. Objective - Vital Signs Vital signs: Vital Signs Temp 98.1 F 01/11/25 12:00 Pulse 65 01/11/25 12:00 Resp 18 01/11/25 12:00 BP 153/81 01/11/25 12:00 Pulse Ox 91 L 01/11/25 12:00 FiO2 21 01/10/25 10:18 Intake & Output 01/10/25 01/11/25 01/11/25 18:59 06:59 18:59 Intake Total 1054 Output Total 150 100 Balance 904 -100 Weight 94.4 kg Intake: Oral 1054 Output: Drainage 150 Left Back 150 Urine 100 Other: Voiding Method Toilet Toilet Toilet Ileal Conduit (Left) Ileal Conduit (Left) Ileal Conduit (Left) # Voids 1 2 # Bowel Movements 1 - Labs CBC & Chem 7: 01/10/25 09:48 01/11/25 04:53 Labs: Abnormal Lab Results - Last 24 Hours (Table) 01/10/25 01/10/25 01/11/25 Range/Units 17:24 20:36 04:53 Sodium 133 L (135-145) mmol/L Potassium 5.6 H (3.5-5.5) mmol/L Carbon Dioxide 18.1 L (21.6-31.8) mmol/L BUN 37.9 H (9.0-27.0) mg/dL Creatinine 1.9 H (0.6-1.5) mg/dL Est GFR (CKD-EPI) 28 L (>=60) Glucose 160 H (70-110) mg/dL POC Glucose (mg/dL) 121 H 195 H (70-110) mg/dL 01/11/25 01/11/25 Range/Units 07:17 12:03 Sodium (135-145) mmol/L Potassium (3.5-5.5) mmol/L Carbon Dioxide (21.6-31.8) mmol/L BUN (9.0-27.0) mg/dL Creatinine (0.6-1.5) mg/dL Est GFR (CKD-EPI) (>=60) Glucose (70-110) mg/dL POC Glucose (mg/dL) 129 H 201 H (70-110) mg/dL
[2025-01-11 14:41] VITALS: BMI 43.4
--- NOTE | 2025-01-11 16:20 | P.PN ---
Subjective Patient is seen for follow-up for chronic kidney disease and acute kidney injury. C/o being bloated and having leg swelling IVF discontinued No shortness of breath Serum creatinine 1.9 today. Potassium elevated at 5.6 Objective - Vital Signs Vital signs: Vital Signs Temp 98.1 F 01/11/25 12:00 Pulse 65 01/11/25 12:00 Resp 18 01/11/25 12:00 BP 153/81 01/11/25 12:00 Pulse Ox 96 01/11/25 15:17 FiO2 21 01/10/25 10:18 Intake & Output 01/10/25 01/11/25 01/11/25 18:59 06:59 18:59 Intake Total 1054 Output Total 150 100 Balance 904 -100 Weight 94.4 kg 94.4 kg Intake: Oral 1054 Output: Drainage 150 Left Back 150 Urine 100 Other: Voiding Method Toilet Toilet Toilet Ileal Conduit (Left) Ileal Conduit (Left) Ileal Conduit (Left) # Voids 1 1 # Bowel Movements 1 - Exam Patient is awake, comfortable, no acute distress Examination of the heart S1 and S2 Examination of the lungs bilateral breath sounds are heard Abdomen is soft nontender Examination of lower extremities shows 1+ edema MANAGER [employer] exam grossly intact - Labs CBC & Chem 7: 01/10/25 09:48 01/11/25 04:53 Labs: Abnormal Lab Results - Last 24 Hours (Table) 01/10/25 01/10/25 01/11/25 Range/Units 17:24 20:36 04:53 Sodium 133 L (135-145) mmol/L Potassium 5.6 H (3.5-5.5) mmol/L Carbon Dioxide 18.1 L (21.6-31.8) mmol/L BUN 37.9 H (9.0-27.0) mg/dL Creatinine 1.9 H (0.6-1.5) mg/dL Est GFR (CKD-EPI) 28 L (>=60) Glucose 160 H (70-110) mg/dL POC Glucose (mg/dL) 121 H 195 H (70-110) mg/dL 01/11/25 01/11/25 Range/Units 07:17 12:03 Sodium (135-145) mmol/L Potassium (3.5-5.5) mmol/L Carbon Dioxide (21.6-31.8) mmol/L BUN (9.0-27.0) mg/dL Creatinine (0.6-1.5) mg/dL Est GFR (CKD-EPI) (>=60) Glucose (70-110) mg/dL POC Glucose (mg/dL) 129 H 201 H (70-110) mg/dL Assessment and Plan Assessment: 1. Acute kidney injury during last hospitalization in October 2024 with component of obstructive uropathy with left hydronephrosis status post left nephrostomy tube. Renal function is improved since October with creatinine down to 1.7 from 2.5 mg/dL on 10/21/2024. Serum creatinine was elevated at 2.0 and patient was started on IV fluids. Now discontinued due to volume overload. Creatinine 1.9 today 2. Left hydronephrosis with left nephrostomy tube. Nuclear scan showed 15% function on the left kidney and there are plans for left nephrectomy. Patient is scheduled for surgery on January 26 at [facility] 3. UTI maintained on antibiotics. Patient has history of recurrent urine tract infection 4. Chronic kidney disease stage IIIb with baseline creatinine 1.4 to 1.7 mg/dL. Previous UA has been completely benign Plan: IV lasix x1 Continue off of IVF. May need to DC Coreg Check bladder scan rule out urine retention Continue with antibiotics Repeat labs in a.m. 2
[2025-01-11 17:01] LABS: Glucose,Whole Blood 301 mg/dL (70-110)
[2025-01-11 20:34] LABS: Glucose,Whole Blood 225 mg/dL (70-110)
--- NOTE | 2025-01-11 20:46 | XR ---
EXAMINATION TYPE: XR ribs LT w pa chest xray DATE OF EXAM: 01/11/2025 6:11 PM COMPARISON: 01/11/2025 CLINICAL INDICATION: Female, 74 years old with history of Fall/increased pain, TECHNIQUE: XR ribs LT w pa chest xray view(s) obtained. FINDINGS: The heart size is enlarged. Pacemaker overlies the left chest The pulmonary vasculature is normal. The lungs are clear. RIBS: 2 views of the left ribs are obtained. No pneumothorax is evident. IMPRESSION: 1. Cardiomegaly 2. No acute osseous abnormality left ribs. [facility], , 01/11/2025 8:44 PM
[2025-01-11] MEDS: HYDROcodone/APAP 7.5-325MG 1 EACH TAB PO PRN (23:43)
[2025-01-12 07:32] LABS: Glucose,Whole Blood 116 mg/dL (70-110)
[2025-01-12 08:45] LABS: ALT 31 U/L (8-44); AST 18 U/L (13-35); Albumin 3.3 g/dL (3.8-4.9); Albumin/Globulin Ratio 1.65 Ratio (1.60-3.17); Alkaline Phosphatase 116 U/L (41-126); BUN/Creat Ratio 17.95 Ratio (12.00-20.00); Blood Urea Nitrogen 39.5 mg/dL (9.0-27.0); Calcium 9.4 mg/dL (8.7-10.3); Carbon Dioxide 22.6 mmol/L (21.6-31.8); Chloride 102 mmol/L (96-109); Glucose 147 mg/dL (70-110); Potassium 4.8 mmol/L (3.5-5.5); Sodium 133 mmol/L (135-145); Total Bilirubin 0.3 mg/dL (0.3-1.2); Total Protein 5.3 g/dL (6.2-8.2)
[2025-01-12 08:51] LABS: Basophils # (A) 0.03 X 10*3/uL (0.00-0.10); Basophils % (A) 0.5 %; Eosinophils # (A) 0.53 X 10*3/uL (0.04-0.35); Eosinophils % (A) 9.5 %; HCT 30.1 % (37.2-46.3); HGB 9.7 g/dL (12.0-15.0); Lymphocytes # (A) 0.92 X 10*3/uL (0.90-5.00); Lymphocytes % (A) 16.5 %; MCH 31.9 pg (27.0-32.0); MCHC 32.2 g/dL (32.0-37.0); Mean Platelet Volume 10.6 FL (9.5-12.2); Monocytes # (A) 0.61 X 10*3/uL (0.20-1.00); NRBC Per 100 WBC 0 X 10*3/uL (0.00-0.01); Neutrophils # (A) 3.44 X 10*3/uL (1.80-7.70); Neutrophils % (A) 61.8 %; Platelet Count 188 X 10*3/uL (140-440); RBC 3.04 X 10*6/uL (4.10-5.20); RDW 14.9 % (11.5-14.5); WBC 5.57 X 10*3/uL (4.50-10.00)
[2025-01-12 12:23] LABS: Glucose,Whole Blood 227 mg/dL (70-110)
--- NOTE | 2025-01-12 15:53 | P.PN ---
Subjective Progress Note Date: 01/11/25 Principal diagnosis: Reason for follow-up is left-sided pyelonephritis, multiple antibiotic allergies Patient is a 74-year-old female with multiple comorbidities, also have a left poorly functioning kidney with a complete obstruction at UPJ currently being treated with nephrostomy present to the hospital with pain to the left flank area cloudy urine concerning for left-sided pyonephritis. On today's evaluation that is 01/11/2025, patient has been afebrile, patient is breathing comfortably and is currently on room air, patient denies having any chest pain and cough, patient denies nausea vomiting or diarrhea has been complaining of pain to the left side of her body after a fall this morning. Patient did have a creatinine 1.9 no CBC was done today Objective - Vital Signs Vital signs: Vital Signs Temp 97.4 F L 01/11/25 07:13 Pulse 64 01/11/25 08:02 Resp 20 01/11/25 07:13 BP 131/81 01/11/25 08:02 Pulse Ox 95 01/11/25 08:02 FiO2 21 01/10/25 10:18 Intake & Output 01/10/25 01/11/25 01/11/25 18:59 06:59 18:59 Intake Total 1054 Output Total 150 100 Balance 904 -100 Weight 94.4 kg Intake: Oral 1054 Output: Drainage 150 Left Back 150 Urine 100 Other: Voiding Method Toilet Toilet Ileal Conduit (Left) Ileal Conduit (Left) # Voids 1 2 # Bowel Movements 1 - Exam GENERAL DESCRIPTION: An elderly female lying in bed in no distress RESPIRATORY SYSTEM: Unlabored breathing , decreased breath sounds at bases HEART: S1 S2 regular rate and rhythm , ABDOMEN: Soft , no tenderness EXTREMITIES: No edema feet - Labs CBC & Chem 7: 01/12/25 04:25 01/12/25 04:25 Labs: Abnormal Lab Results - Last 24 Hours (Table) 01/10/25 01/10/25 01/10/25 Range/Units 12:37 17:24 20:36 Sodium (135-145) mmol/L Potassium (3.5-5.5) mmol/L Carbon Dioxide (21.6-31.8) mmol/L BUN (9.0-27.0) mg/dL Creatinine (0.6-1.5) mg/dL Est GFR (CKD-EPI) (>=60) Glucose (70-110) mg/dL POC Glucose (mg/dL) 138 H 121 H 195 H (70-110) mg/dL 01/11/25 01/11/25 Range/Units 04:53 07:17 Sodium 133 L (135-145) mmol/L Potassium 5.6 H (3.5-5.5) mmol/L Carbon Dioxide 18.1 L (21.6-31.8) mmol/L BUN 37.9 H (9.0-27.0) mg/dL Creatinine 1.9 H (0.6-1.5) mg/dL Est GFR (CKD-EPI) 28 L (>=60) Glucose 160 H (70-110) mg/dL POC Glucose (mg/dL) 129 H (70-110) mg/dL Assessment and Plan (1) Allergy to multiple antibiotics Current Visit: Yes Status: Acute Code(s): Z88.1 - ALLERGY STATUS TO OTHER ANTIBIOTIC AGENTS SNOMED Code(s): 959912005 (2) UTI (urinary tract infection) Current Visit: Yes Status: Acute Code(s): N39.0 - URINARY TRACT INFECTION, SITE NOT SPECIFIED SNOMED Code(s): 63002836 Plan: 1patient with a complicated history presented to hospital with cloudy urine foul-smelling and did have pain to the left flank area this patient did have history of nephrostomy placed in October 2024 with a significantly positive UA concerning for complicated UTI likely from enteric gram-negative pathogen 2patient with multiple antibiotic ALLERGIES that would limit the number of antibiotic safe to use 3patient urine is growing corynebacterium stratum which is a skin kriss however the patient did have a nephrostomy for a couple of months now and may be the likely etiology agent, 4patient repeat urine is growing the same pathogen currently on daptomycin still waiting for sensitivities to finalize determine discharge antibiotics Dictation was produced using [employer] dictation software. please excuse any grammatical, word or spelling errors. Time with Patient: Less than 30
--- NOTE | 2025-01-12 15:54 | P.PN ---
Subjective Progress Note Date: 01/12/25 Principal diagnosis: Reason for follow-up is left-sided pyelonephritis, multiple antibiotic allergies Patient is a 74-year-old female with multiple comorbidities, also have a left poorly functioning kidney with a complete obstruction at UPJ currently being treated with nephrostomy present to the hospital with pain to the left flank area cloudy urine concerning for left-sided pyonephritis. On today's evaluation that is 01/12/2025, Patient is afebrile this morning pa tient denies having any chest pain shortness of breath or cough, the patient is currently on room air, patient denies any abdominal pain no diarrhea no nausea no vomiting, denies pain to bilateral extremity. Patient white count 6.11 creatinine 0.7 Objective - Vital Signs Vital signs: Vital Signs Temp 98.7 F 01/12/25 12:24 Pulse 67 01/12/25 12:24 Resp 20 01/12/25 12:24 BP 108/68 01/12/25 12:24 Pulse Ox 95 01/12/25 12:24 FiO2 21 01/10/25 10:18 Intake & Output 01/11/25 01/12/25 01/12/25 18:59 06:59 18:59 Intake Total 480 Output Total 100 Balance -100 480 Weight 94.4 kg 93 kg Intake: Oral 480 Output: Drainage 100 Left Back 100 Other: Voiding Method Toilet Toilet Toilet Ileal Conduit (Left) Ileal Conduit (Left) Ileal Conduit (Left) # Voids 1 1 # Bowel Movements 1 - Exam GENERAL DESCRIPTION: An elderly female lying in bed in no distress RESPIRATORY SYSTEM: Unlabored breathing , decreased breath sounds at bases HEART: S1 S2 regular rate and rhythm , ABDOMEN: Soft , no tenderness EXTREMITIES: No edema feet - Labs CBC & Chem 7: 01/12/25 04:25 01/12/25 04:25 Labs: Abnormal Lab Results - Last 24 Hours (Table) 01/11/25 01/11/25 01/12/25 Range/Units 17:00 20:32 04:25 RBC 3.04 L (4.10-5.20) X 10*6/uL Hgb 9.7 L (12.0-15.0) g/dL Hct 30.1 L (37.2-46.3) % MCV 99.0 H (80.0-97.0) FL RDW 14.9 H (11.5-14.5) % Eosinophils # 0.53 H (0.04-0.35) X 10*3/uL Sodium (135-145) mmol/L BUN (9.0-27.0) mg/dL Creatinine (0.6-1.5) mg/dL Est GFR (CKD-EPI) (>=60) Glucose (70-110) mg/dL POC Glucose (mg/dL) 301 H 225 H (70-110) mg/dL Total Protein (6.2-8.2) g/dL Albumin (3.8-4.9) g/dL 01/12/25 01/12/25 01/12/25 Range/Units 04:25 07:31 12:21 RBC (4.10-5.20) X 10*6/uL Hgb (12.0-15.0) g/dL Hct (37.2-46.3) % MCV (80.0-97.0) FL RDW (11.5-14.5) % Eosinophils # (0.04-0.35) X 10*3/uL Sodium 133 L (135-145) mmol/L BUN 39.5 H (9.0-27.0) mg/dL Creatinine 2.2 H (0.6-1.5) mg/dL Est GFR (CKD-EPI) 23 L (>=60) Glucose 147 H (70-110) mg/dL POC Glucose (mg/dL) 116 H 227 H (70-110) mg/dL Total Protein 5.3 L (6.2-8.2) g/dL Albumin 3.3 L (3.8-4.9) g/dL Assessment and Plan (1) Allergy to multiple antibiotics Current Visit: Yes Status: Acute Code(s): Z88.1 - ALLERGY STATUS TO OTHER ANTIBIOTIC AGENTS SNOMED Code(s): 739021713 (2) UTI (urinary tract infection) Current Visit: Yes Status: Acute Code(s): N39.0 - URINARY TRACT INFECTION, SITE NOT SPECIFIED SNOMED Code(s): 24587288 Plan: 1patient with a complicated history presented to hospital with cloudy urine foul-smelling and did have pain to the left flank area this patient did have history of nephrostomy placed in October 2024 with a significantly positive UA concerning for complicated UTI likely from enteric gram-negative pathogen 2patient with multiple antibiotic ALLERGIES that would limit the number of antibiotic safe to use 3patient urine is growing corynebacterium stratum which is a skin kriss however the patient did have a nephrostomy for a couple of months now and may be the likely etiology agent, 4patient repeat urine is growing the same pathogen, the patient blood pressure has been negative 5patient is being treated with daptomycin still waiting for sensitivities to finalize determine discharge antibiotics Dictation was produced using [employer] dictation software. please excuse any grammatical, word or spelling errors. Time with Patient: Less than 30
[2025-01-12 17:27] LABS: Glucose,Whole Blood 150 mg/dL (70-110)
[2025-01-12] MEDS: HYDROcodone/APAP 5-325MG 1 EACH TAB PO PRN (18:11)
[2025-01-12 20:31] LABS: Glucose,Whole Blood 169 mg/dL (70-110)
--- NOTE | 2025-01-13 05:35 | P.PN ---
Subjective Progress Note Date: 01/12/25 This is a very pleasant 74-year-old female who presented to the emergency department with foul-smelling urine and drainage from the nephrostomy tube on the left with concerns of possible infection. Patient follows with Dr. Borges in the outpatient setting with a past medical history of asthma, coronary artery disease, chest pain with angina, heart failure, diabetes mellitus, GERD, hyperlipidemia, hypertension, previous myocardial infarction, osteoarthritis, renal disease with aortic stenosis chronic kidney disease stage V, previous pacer placement/depression. Patient is following with urology Dr. Clark outpatient who is arranging for a nephrectomy on January 26 at a [facility] facility. Patient has been following with infectious disease along with urology and nephrology outpatient and is status post nephrostomy placement. Patient reports she has been having ongoing recurrent urinary tract infections and has been maintained on multiple antibiotics although presented with some abdominal pain and concerns for urinary tract infection grossly getting worse over the last few days. On admission labs were reviewed revealing a normal white count of 6.32, hemoglobin stable at 11.4, platelets 176, sodium 135 with a potassium of 3.5, BUN 27 and creatinine 1.76 which appears improved from previous readings in between 2 and 3 creatinine, magnesium 1.8, urinalysis performed showing turbid urine with protein light esterase. Patient was admitted for concerns of acute urinary tract infection and was given a dose of Levaquin. Patient evaluated this morning and have consulted urology along with nephrology and infectious disease. 01/06/2025 Patient is evaluated in follow-up on the medical floor. Her urine culture from the nephrostomy is currently pending final micro sensitivities preliminary showing Corynebacterium stratum group. She does state that she has not had a bowel movement since Saturday and feels constipated. She usually uses Colace and Benefiber at home. She is okay with trialing MiraLAX. She is currently maintained on IV aztreonam with ID following closely. She is being hydrated with normal saline running at 70 mL/h. BUN today of 36 creatinine of 1.84. Sodium level of 134. Calcium of 10.6. 01/07/2025 Patient is seen in follow-up today reports to feeling somewhat improved and is awaiting finalized cultures to determine appropriate discharge antibiotics. Infectious disease following as culture showing Corynebacterium and requesting micro lab to run sensitivities and micro lab was contacted and this is a send out which will not be sent out until 01/08/2025 and then will await sensitivities to be resulted. Patient is afebrile with no reports of chest pain or shortness of breath. Urology following with no further recommendations other than continued course and nephrectomy on January 26 as scheduled. Nephrology following monitoring kidney functions and creatinine is 2 today. Encouraged increase activity as tolerated with getting up and walking more frequently. Continue gentle hydration per nephrology and will follow-up on repeat labs. 01/08/2025 Patient is seen in follow-up today awaiting culture sensitivities that were requested from micro lab which is a send out and will likely not be resulted until early next week. Patient is continued on antibiotics in the form of daptomycin with infectious disease following closely. Patient has multiple anti biotic allergies making it difficult to consider outpatient antibiotics. Patient was reporting a dull cough and chest x-ray will be obtained. Recommend incentive spirometer and increasing activity as tolerated and sitting up on the bed more frequently. Patient is afebrile with no reports of chest pain or palpitations. Patient is continued on gentle IV hydration per nephrology with concerns of developing mild volume overload. Creatinine is trending down and 1.7. 01/09/2025 Patient is seen and evaluated in follow-up with no acute overnight issues noted. Gentle hydration was continued showing some improvements in kidney functions with a creatinine of 1.78 and will discontinue IV fluids. Encouraged incentive spirometer use and getting up more frequently out of the bed. Awaiting finaliz ed culture sensitivities to determine appropriate antibiotics on discharge per infectious disease. Patient is afebrile with no reports of worsening shortness of breath. Patient has been tolerating diet with no reported nausea or vomiting. Will discuss with infectious disease and micro lab regarding discharge planning once sensitivities have resulted. 01/10/2025 Patient is seen today with nephrology and infectious disease following. Continuing to await culture sensitivities to determine appropriate antibiotics on discharge. Will call micro lab to inquire about some doubt that was apparently sent out on Saturday and remains pending. Patient is afebrile with no reported chest pain or shortness of breath. Patient reports tolerating diet and potassium mildly elevated at 5.3, recommend low potassium diet. Encouraged increased activity as tolerated and getting out of the bed more frequently. 01/11/2025 Patient is seen and evaluated in follow-up today with infectious disease following. Patient is maintained on IV antibiotics in the form of daptomycin and will continue. Micro lab contacted and per staff, sensitivities are in progress although will likely not be resulted until , 01/14/2025. Patient being followed by nephrology was maintained on gentle hydration although given a dose of Lasix this morning and kidney function slightly worse at 1.9 creatinine today. Potassium elevated as well recommend low potassium diet and will give a dose of Lokelma. Per nursing staff patient was getting up to the bathroom and fell and struck her head on the bathroom sink and also landed on her left side reporting some left-sided rib pain and tenderness. Nephrostomy evaluated and appears stable and is draining. Will order CT brain also x-ray. Encourage incentive spirometer and will have PT/OT therapy evaluate the patient. Case management is aware and we are awaiting finalized cultures to determine discharge antibiotics. 01/12/2025 Patient is seen in follow-up today currently worked with physical therapy was able to walk up and down with her walker and would like to return home on discharge. Patient being progressively more weak with prolonged hospitalization will await PT/therapy evaluation and discuss further with case management/social work. Patient is scheduled to undergo nephrectomy on January 26, 2025 at [facility]. Continuing to await sensitivities on cultures per ID recommendations and will continue following up with micro lab on a daily basis. It was reported per micro lab that results will not be available until 01/14/2025. Will contact daily for any changes. Patient is currently sitting up in the chair with no reports of chest pain or shortness of breath. Incentive and encouraged to continue patient is having increasing pain in the left and x-ray was reviewed revealing no REVIEW OF SYSTEMS: CONSTITUTIONAL: No fever, no malaise, no fatigue. HEENT: No recent visual problems or hearing problems. Denied any sore throat. CARDIOVASCULAR: No chest pain, orthopnea, PND, no palpitations, no syncope. PULMONARY: No shortness of breath, reports a slight cough, no hemoptysis. Reports of some rib pain on the left that persists GASTROINTESTINAL: No diarrhea, no further reports of nausea, no vomiting, reports diffuse abdominal pain. NEUROLOGICAL: No headaches, reports of generalized weakness, no numbness. PHYSICAL EXAMINATION: GENERAL: The patient is alert and oriented x3, not in any acute distress. Well developed, well nourished. Morbidly obese HEENT: Pupils are round and equally reacting to light. EOMI. No scleral icterus. No conjunctival pallor. Normocephalic, atraumatic. No pharyngeal erythema. No thyromegaly. CARDIOVASCULAR: S1 and S2 present. No murmurs, rubs, or gallops. PULMONARY: Diminished breath sounds bilaterally otherwise chest is clear to auscultation, small faint occasional expiratory wheezing noted ABDOMEN: Soft, nontender, nondistended, normoactive bowel sounds. No palpable organomegaly. MUSCULOSKELETAL: No joint swelling or deformity. EXTREMITIES: No cyanosis, clubbing, or pedal edema. NEUROLOGICAL: Gross neurological examination did not reveal any focal deficits. SKIN: No rashes. 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, status post left nephrostomy and tentatively scheduled for nephrectomy on January 26, 2025 at [facility] History of recurrent urinary tract infections Acute urinary tract infection, present on admission with a largely abnormal urinalysis, foul-smelling drainage and decreased urinary output, culture showing Cornibacterium stratum and awaiting culture sensitivities for micro lab, cultures will not be available until , 01/14/2025 Constipation, improved and having bowel movements Generalized weakness with gait dysfunction and fall this morning 01/11/2025 striking head and left side of ribs, CT head negative and x-ray reveals no rib fractures History of asthma, not in exacerbation Coronary artery disease history Acute on chronic kidney disease History of heart failure, unknown EF 30 Diabetes mellitus type 2 History of GERD Hyperlipidemia Hypertension Previous myocardial infarctions History of osteoarthritis History of kidney failure stage V, scheduled for nephrectomy on the left January 26, 2025 at [facility] History of anxiety/depression Obesity with BMI of 39.3 aortic stenosis history and AICD placement with previous coronary artery bypass grafting and multiple stents previously GI prophylaxis DVT prophylaxis Full code Plan: Patient was admitted with concerns of foul-smelling odor and left nephrostomy f ollows with urology and nephrology closely along with infectious disease as patient has been hospitalized multiple times. Patient follows with urology outpatient and is being arranged for left nephrectomy at [facility] and tentatively scheduled for 01/26/2025 Patient is continued on daptomycin, preliminary cultures are showing Corynebacterium species with recommendations from ID and discussed with micro lab about ordering sensitivities. This is a send out and will be sent on 01/08/2025 and will await finalized sensitivities to determine appropriate antibiotics on discharge. Unsure if patient will require IV antibiotic therapy on discharge and case management is following verifying coverage, likely no discharge until least to arrange for discharge planning Follow-up on repeat labs and replace electrolytes per protocol. IV fluids have been discontinued and creatinine is 1.9 today and given a dose of IV Lasix. Potassium 5.6 and will give a dose of Lokelma and follow-up on repeat labs. Recommend low potassium diet Encourage incentive spirometer use at least 10 times every hour while awake Continue monitoring Accu-Cheks AC and at bedtime and will adjust insulins accordingly Encouraged increased activity as tolerated and getting up out of the bed more frequently. Per nursing staff patient took a fall today in the bathroom and struck her head on the counter with no loss of consciousness and no obvious injury. Patient was also reporting some left-sided rib pain due to the fall and chest x-ray was performed with no rib fractures noted. CT brain was done showing no acute process Again contacted micro lab and cultures will not be available till at least , 01/14/2025. Infectious disease following and will be awaiting culture sensitivities to determine appropriate discharge antibiotics Will have PT/OT therapy evaluate and work with the patient as patient may need ECF on discharge for continued strength and mobility. Patient has had prolonged hospitalization and generalized weak. The impression and plan of care has been dictated by Cassidy Blevins, Nurse Practitioner as directed. Dr. Marv MD I have performed a history and examination and MDM of this patient, discussed the same with the dictator, and agree with the dictator's assessment and plan as written ,documented as a scribe. Based on total visit time, I have performed more than 50% of the visit. Objective - Vital Signs Vital signs: Vital Signs Temp 98.7 F 01/12/25 12:24 Pulse 67 01/12/25 12:24 Resp 20 01/12/25 12:24 BP 108/68 01/12/25 12:24 Pulse Ox 95 01/12/25 12:24 FiO2 21 01/10/25 10:18 Intake & Output 01/11/25 01/12/25 01/12/25 18:59 06:59 18:59 Intake Total 480 Output Total 100 Balance -100 480 Weight 94.4 kg 93 kg Intake: Oral 480 Output: Drainage 100 Left Back 100 Other: Voiding Method Toilet Toilet Toilet Ileal Conduit (Left) Ileal Conduit (Left) Ileal Conduit (Left) # Voids 1 1 # Bowel Movements 1 - Labs CBC & Chem 7: 01/12/25 04:25 01/12/25 04:25 Labs: Abnormal Lab Results - Last 24 Hours (Table) 01/11/25 01/11/25 01/12/25 Range/Units 17:00 20:32 04:25 RBC 3.04 L (4.10-5.20) X 10*6/uL Hgb 9.7 L (12.0-15.0) g/dL Hct 30.1 L (37.2-46.3) % MCV 99.0 H (80.0-97.0) FL RDW 14.9 H (11.5-14.5) % Eosinophils # 0.53 H (0.04-0.35) X 10*3/uL Sodium (135-145) mmol/L BUN (9.0-27.0) mg/dL Creatinine (0.6-1.5) mg/dL Est GFR (CKD-EPI) (>=60) Glucose (70-110) mg/dL POC Glucose (mg/dL) 301 H 225 H (70-110) mg/dL Total Protein (6.2-8.2) g/dL Albumin (3.8-4.9) g/dL 01/12/25 01/12/25 01/12/25 Range/Units 04:25 07:31 12:21 RBC (4.10-5.20) X 10*6/uL Hgb (12.0-15.0) g/dL Hct (37.2-46.3) % MCV (80.0-97.0) FL RDW (11.5-14.5) % Eosinophils # (0.04-0.35) X 10*3/uL Sodium 133 L (135-145) mmol/L BUN 39.5 H (9.0-27.0) mg/dL Creatinine 2.2 H (0.6-1.5) mg/dL Est GFR (CKD-EPI) 23 L (>=60) Glucose 147 H (70-110) mg/dL POC Glucose (mg/dL) 116 H 227 H (70-110) mg/dL Total Protein 5.3 L (6.2-8.2) g/dL Albumin 3.3 L (3.8-4.9) g/dL
[2025-01-13 07:33] LABS: Glucose,Whole Blood 170 mg/dL (70-110)
[2025-01-13 09:05] LABS: BUN/Creat Ratio 17.76 Ratio (12.00-20.00); Blood Urea Nitrogen 37.3 mg/dL (9.0-27.0); Calcium 9.4 mg/dL (8.7-10.3); Carbon Dioxide 19.7 mmol/L (21.6-31.8); Chloride 102 mmol/L (96-109); Glucose 178 mg/dL (70-110); Potassium 5.3 mmol/L (3.5-5.5); Sodium 134 mmol/L (135-145)
[2025-01-13 12:15] LABS: Glucose,Whole Blood 163 mg/dL (70-110)
[2025-01-13] MEDS: ONDANSETRON 4 MG/2 ML VIAL IVP PRN (13:12)
[2025-01-13 17:02] LABS: Glucose,Whole Blood 203 mg/dL (70-110)
[2025-01-13] MEDS: IOPAMIDOL CONTRAST (ORAL USE) VIAL PO PRN (17:10)
--- NOTE | 2025-01-13 19:30 | CT ---
EXAMINATION TYPE: CT abdomen pelvis wo con CT DLP: 1178.7 mGycm, Automated exposure control for dose reduction was used. DATE OF EXAM: 01/13/2025 6:57 PM COMPARISON: CT abdomen pelvis most recent from 08/24/2024 CLINICAL INDICATION:Female, 74 years old with history of abdominal pain, recent fall this admit, neph rostom; Abdominal pain TECHNIQUE: Axial CT abdomen pelvis wo con;Sagittal and coronal reformats were created on a separate workstation. Contrast used: mL of , (none if empty) Oral contrast used: with Oral Contrast (none if empty) FINDINGS: Motion artifact on exam degrades images limiting evaluation. LOWER CHEST: Trace bilateral pleural effusions with associated atelectasis. Partially visualized aort ic valve prosthesis and cardiac leads. ABDOMEN LIVER: Grossly unremarkable. GALLBLADDER AND BILE DUCTS: Small gallstone is again seen in the nondistended gallbladder. Gallbladde r otherwise within normal limits. No biliary ductal dilatation. PANCREAS: Atrophic. SPLEEN: Grossly unremarkable. ADRENAL GLANDS: Grossly unremarkable.. KIDNEYS AND URETERS: Atrophic right kidney does not demonstrate renal calculi or hydronephrosis. Left flank approach nephrostomy catheter is seen located within the left collecting system which seems mi ldly dilated. Sub-5 mm left calculi are seen. PELVIS BLADDER: Grossly unremarkable REPRODUCTIVE: Grossly unremarkable. ABDOMEN & PELVIS STOMACH AND BOWEL: Small hiatal hernia. Small bowel is of normal caliber. Contrast is seen within the stomach and small bowel. No evidence of bowel obstruction. PERITONEUM/RETROPERITONEUM: No evidence of pneumoperitoneum or free fluid. VASCULATURE: No evidence of aortic aneurysm. MUSCULOSKELETAL: Postsurgical changes of the lumbosacral spine. No acute osseous abnormalities LYMPH NODES: No gross evidence for lymphadenopathy. SOFT TISSUE/ABDOMINAL WALL: Similar mild soft tissue anasarca. IMPRESSION: 1. Left nephrostomy tube is seen terminating within the left collecting system. Left mild hydronephro sis with a few sub-5 mm calculi are again seen. No right hydronephrosis. No right renal calculi. 2. Trace bilateral pleural effusions. [facility], , 01/13/2025 7:27 PM
[2025-01-13 20:11] LABS: Glucose,Whole Blood 191 mg/dL (70-110)
--- NOTE | 2025-01-13 23:21 | P.PN ---
Subjective Patient is seen for follow-up for chronic kidney disease and acute kidney injury. C/o significant pain on the left side of chest and abdomen IVF discontinued No shortness of breath Serum creatinine 2.1 today. Objective - Vital Signs Vital signs: Vital Signs Temp 98.2 F 01/13/25 19:10 Pulse 67 01/13/25 19:10 Resp 17 01/13/25 19:10 BP 118/73 01/13/25 19:10 Pulse Ox 91 L 01/13/25 19:10 FiO2 21 01/10/25 10:18 Intake & Output 01/13/25 01/13/25 01/14/25 06:59 18:59 06:59 Intake Total 480 Balance 480 Weight 90.5 kg Intake: Oral 480 Other: Voiding Method Toilet Ileal Conduit (Left) Ileal Conduit (Left) # Voids 2 3 - Exam Patient is awake, comfortable, no acute distress Examination of the heart S1 and S2 Examination of the lungs bilateral breath sounds are heard Abdomen is soft, tenderness noted upper abdomen and on the left side. Examination of lower extremities shows 1+ edema MANAGER RELOCATION exam grossly intact - Labs CBC & Chem 7: 01/12/25 04:25 01/13/25 04:15 Labs: Abnormal Lab Results - Last 24 Hours (Table) 01/13/25 01/13/25 01/13/25 Range/Units 04:15 07:32 12:14 Sodium 134 L (135-145) mmol/L Carbon Dioxide 19.7 L (21.6-31.8) mmol/L Anion Gap 12.30 H (4.00-12.00) mmol/L BUN 37.3 H (9.0-27.0) mg/dL Creatinine 2.1 H (0.6-1.5) mg/dL Est GFR (CKD-EPI) 24 L (>=60) Glucose 178 H (70-110) mg/dL POC Glucose (mg/dL) 170 H 163 H (70-110) mg/dL 01/13/25 01/13/25 Range/Units 17:00 20:10 Sodium (135-145) mmol/L Carbon Dioxide (21.6-31.8) mmol/L Anion Gap (4.00-12.00) mmol/L BUN (9.0-27.0) mg/dL Creatinine (0.6-1.5) mg/dL Est GFR (CKD-EPI) (>=60) Glucose (70-110) mg/dL POC Glucose (mg/dL) 203 H 191 H (70-110) mg/dL Assessment and Plan Assessment: 1. Acute kidney injury during last hospitalization in October 2024 with component of obstructive uropathy with left hydronephrosis status post left nephrostomy tube. Renal function is improved since October with creatinine down to 1.7 from 2.5 mg/dL on 10/21/2024. Serum creatinine was elevated at 2.0 and patient was started on IV fluids. Now discontinued due to volume overload. Creatinine 2.1 today 2. Left hydronephrosis with left nephrostomy tube. Nuclear scan showed 15% function on the left kidney and there are plans for left nephrectomy. Patient is scheduled for surgery on January 26 at [facility] 3. UTI maintained on antibiotics. Patient has history of recurrent urine tract infection 4. Chronic kidney disease stage IIIb with baseline creatinine 1.4 to 1.7 mg/dL. Previous UA has been completely benign Plan: Continue off of IVF. Recomment CT abdomen Continue with antibiotics Repeat labs in a.m.
--- NOTE | 2025-01-14 05:43 | P.PN ---
Subjective Progress Note Date: 01/13/25 This is a very pleasant 74-year-old female who presented to the emergency department with foul-smelling urine and drainage from the nephrostomy tube on the left with concerns of possible infection. Patient follows with Dr. Borges in the outpatient setting with a past medical history of asthma, coronary artery disease, chest pain with angina, heart failure, diabetes mellitus, GERD, hyperlipidemia, hypertension, previous myocardial infarction, osteoarthritis, renal disease with aortic stenosis chronic kidney disease stage V, previous pacer placement/depression. Patient is following with urology Dr. Clark outpatient who is arranging for a nephrectomy on January 26 at a [place] facility. Patient has been following with infectious disease along with urology and nephrology outpatient and is status post nephrostomy placement. Patient reports she has been having ongoing recurrent urinary tract infections and has been maintained on multiple antibiotics although presented with some abdominal pain and concerns for urinary tract infection grossly getting worse over the last few days. On admission labs were reviewed revealing a normal white count of 6.32, hemoglobin stable at 11.4, platelets 176, sodium 135 with a potassium of 3.5, BUN 27 and creatinine 1.76 which appears improved from previous readings in between 2 and 3 creatinine, magnesium 1.8, urinalysis performed showing turbid urine with protein light esterase. Patient was admitted for concerns of acute urinary tract infection and was given a dose of Levaquin. Patient evaluated this morning and have consulted urology along with nephrology and infectious disease. 01/06/2025 Patient is evaluated in follow-up on the medical floor. Her urine culture from the nephrostomy is currently pending final micro sensitivities preliminary showing Corynebacterium stratum group. She does state that she has not had a bowel movement since Saturday and feels constipated. She usually uses Colace and Benefiber at home. She is okay with trialing MiraLAX. She is currently maintained on IV aztreonam with ID following closely. She is being hydrated with normal saline running at 70 mL/h. BUN today of 36 creatinine of 1.84. Sodium level of 134. Calcium of 10.6. 01/07/2025 Patient is seen in follow-up today reports to feeling somewhat improved and is awaiting finalized cultures to determine appropriate discharge antibiotics. Infectious disease following as culture showing Corynebacterium and requesting micro lab to run sensitivities and micro lab was contacted and this is a send out which will not be sent out until 01/08/2025 and then will await sensitivities to be resulted. Patient is afebrile with no reports of chest pain or shortness of breath. Urology following with no further recommendations other than continued course and nephrectomy on January 26 as scheduled. Nephrology following monitoring kidney functions and creatinine is 2 today. Encouraged increase activity as tolerated with getting up and walking more frequently. Continue gentle hydration per nephrology and will follow-up on repeat labs. 01/08/2025 Patient is seen in follow-up today awaiting culture sensitivities that were requested from micro lab which is a send out and will likely not be resulted until early next week. Patient is continued on antibiotics in the form of daptomycin with infectious disease following closely. Patient has multiple anti biotic allergies making it difficult to consider outpatient antibiotics. Patient was reporting a dull cough and chest x-ray will be obtained. Recommend incentive spirometer and increasing activity as tolerated and sitting up on the bed more frequently. Patient is afebrile with no reports of chest pain or palpitations. Patient is continued on gentle IV hydration per nephrology with concerns of developing mild volume overload. Creatinine is trending down and 1.7. 01/09/2025 Patient is seen and evaluated in follow-up with no acute overnight issues noted. Gentle hydration was continued showing some improvements in kidney functions with a creatinine of 1.78 and will discontinue IV fluids. Encouraged incentive spirometer use and getting up more frequently out of the bed. Awaiting finaliz ed culture sensitivities to determine appropriate antibiotics on discharge per infectious disease. Patient is afebrile with no reports of worsening shortness of breath. Patient has been tolerating diet with no reported nausea or vomiting. Will discuss with infectious disease and micro lab regarding discharge planning once sensitivities have resulted. 01/10/2025 Patient is seen today with nephrology and infectious disease following. Continuing to await culture sensitivities to determine appropriate antibiotics on discharge. Will call micro lab to inquire about some doubt that was apparently sent out on Saturday and remains pending. Patient is afebrile with no reported chest pain or shortness of breath. Patient reports tolerating diet and potassium mildly elevated at 5.3, recommend low potassium diet. Encouraged increased activity as tolerated and getting out of the bed more frequently. 01/11/2025 Patient is seen and evaluated in follow-up today with infectious disease following. Patient is maintained on IV antibiotics in the form of daptomycin and will continue. Micro lab contacted and per staff, sensitivities are in progress although will likely not be resulted until , 01/14/2025. Patient being followed by nephrology was maintained on gentle hydration although given a dose of Lasix this morning and kidney function slightly worse at 1.9 creatinine today. Potassium elevated as well recommend low potassium diet and will give a dose of Lokelma. Per nursing staff patient was getting up to the bathroom and fell and struck her head on the bathroom sink and also landed on her left side reporting some left-sided rib pain and tenderness. Nephrostomy evaluated and appears stable and is draining. Will order CT brain also x-ray. Encourage incentive spirometer and will have PT/OT therapy evaluate the patient. Case management is aware and we are awaiting finalized cultures to determine discharge antibiotics. 01/12/2025 Patient is seen in follow-up today currently worked with physical therapy was able to walk up and down with her walker and would like to return home on discharge. Patient being progressively more weak with prolonged hospitalization will await PT/therapy evaluation and discuss further with case management/social work. Patient is scheduled to undergo nephrectomy on January 26, 2025 at [facility]. Continuing to await sensitivities on cultures per ID recommendations and will continue following up with micro lab on a daily basis. It was reported per micro lab that results will not be available until 01/14/2025. Will contact daily for any changes. Patient is currently sitting up in the chair with no reports of chest pain or shortness of breath. Incentive and encouraged to continue patient is having increasing pain in the left and x-ray was reviewed revealing no fractures 01/13/2025 Patient is seen in follow-up today continues to report left-sided pain in the rib area and reports has been using incentive spirometer. Patient has been working with physical therapy although appears to be guarding that left side quite frequently. Nephrology following as well and creatinine is 2.2 today they have maintained off diuretics and IV fluids. Continuing to await for culture sensitivities per infectious disease and patient is continued on daptomycin at this time. Encouraged increase activity as tolerated and will continue with current pain regimen. Patient is afebrile with no reports of chest pain or palpitations. Patient reports it does hurt with deep inspiration due to the rib pain but again have stressed the importance of incentive spirometer use and continuing to use. REVIEW OF SYSTEMS: CONSTITUTIONAL: No fever, no malaise, no fatigue. HEENT: No recent visual problems or hearing problems. Denied any sore throat. CARDIOVASCULAR: No chest pain, orthopnea, PND, no palpitations, no syncope. PULMONARY: No shortness of breath, reports a slight cough, no hemoptysis. Reports continued rib pain on the left that persists GASTROINTESTINAL: No diarrhea, no further reports of nausea, no vomiting, reports diffuse abdominal pain. NEUROLOGICAL: No headaches, reports of generalized weakness, no numbness. PHYSICAL EXAMINATION: GENERAL: The patient is alert and oriented x3, not in any acute distress. Well d eveloped, well nourished. Morbidly obese HEENT: Pupils are round and equally reacting to light. EOMI. No scleral icterus. No conjunctival pallor. Normocephalic, atraumatic. No pharyngeal erythema. No thyromegaly. CARDIOVASCULAR: S1 and S2 present. No murmurs, rubs, or gallops. PULMONARY: Diminished breath sounds bilaterally otherwise chest is clear to auscultation, small faint occasional expiratory wheezing noted ABDOMEN: Soft, morbidly obese, nontender, nondistended, normoactive bowel sounds . No palpable organomegaly. MUSCULOSKELETAL: No joint swelling or deformity. EXTREMITIES: No cyanosis, clubbing, or pedal edema. NEUROLOGICAL: Gross neurological examination did not reveal any focal deficits. SKIN: No rashes. 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, status post left nephrostomy and tentatively scheduled for nephrectomy on January 26, 2025 at [place] History of recurrent urinary tract infections Acute urinary tract infection, present on admission with a largely abnormal urinalysis, foul-smelling drainage and decreased urinary output, culture showing Cornibacterium stratum and awaiting culture sensitivities for micro lab, cultures will not be available until , 01/14/2025 Constipation, improved and having bowel movements Generalized weakness with gait dysfunction and fall on 01/11/2025 striking head and left side of ribs, CT head negative and x-ray reveals no rib fractures History of asthma, not in exacerbation Coronary artery disease history Acute on chronic kidney disease History of heart failure, unknown EF 30 Diabetes mellitus type 2 History of GERD Hyperlipidemia Hypertension Previous myocardial infarctions History of osteoarthritis History of kidney failure stage V, scheduled for nephrectomy on the left January 26, 2025 at [place] History of anxiety/depression Obesity with BMI of 39.3 aortic stenosis history and AICD placement with previous coronary artery bypass grafting and multiple stents previously GI prophylaxis DVT prophylaxis Full code Plan: Patient was admitted with concerns of foul-smelling odor and left nephrostomy follows with urology and nephrology closely along with infectious disease as patient has been hospitalized multiple times. Patient follows with urology outpatient and is being arranged for left nephrectomy at [place] and tentatively scheduled for 01/26/2025 Patient is continued on daptomycin, preliminary cultures are showing Corynebacterium species with recommendations from ID and discussed with micro lab about ordering sensitivities. This is a send out and will be sent on 01/08/2025 and will await finalized sensitivities to determine appropriate antibiotics on discharge. Unsure if patient will require IV antibiotic therapy on discharge and case management is following verifying coverage, likely no discharge until least to arrange for discharge planning Follow-up on repeat labs and replace electrolytes per protocol. IV fluids have been discontinued and creatinine is 2.2 today with nephrology following. Monitor kidney functions closely and will follow-up on repeat labs Encourage incentive spirometer use at least 10 times every hour while awake Continue monitoring Accu-Cheks AC and at bedtime and will adjust insulins accordingly Encouraged increased activity as tolerated and getting up out of the bed more frequently. Per nursing staff patient took a fall today in the bathroom and struck her head on the counter with no loss of consciousness and no obvious injury. Patient was also reporting some left-sided rib pain due to the fall and chest x-ray was performed with no rib fractures noted. CT brain was done showing no acute process Patient continues to elicit significant abdominal pain although feels this more rib pain and musculoskeletal, will order CT abdomen for evaluation Again contacted micro lab and cultures will not be available till at least , 01/14/2025. Infectious disease following and will be awaiting culture sensitivities to determine appropriate discharge antibiotics Recommend PT/OT therapy daily as patient may need ECF on discharge for continued strength and mobility. Patient has had prolonged hospitalization and generalized weak. The impression and plan of care has been dictated by Cassidy Blevins, Nurse Practitioner as directed. Dr. Marv MD I have performed a history and examination and MDM of this patient, discussed the same with the dictator, and agree with the dictator's assessment and plan as written ,documented as a scribe. Based on total visit time, I have performed more than 50% of the visit. Objective - Vital Signs Vital signs: Vital Signs Temp 98.3 F 01/14/25 01:18 Pulse 65 01/14/25 01:18 Resp 17 01/14/25 01:18 BP 124/69 01/14/25 01:18 Pulse Ox 95 01/14/25 01:18 FiO2 21 01/10/25 10:18 Intake & Output 01/13/25 01/13/25 01/14/25 06:59 18:59 06:59 Intake Total 480 355 Output Total 650 Balance 480 -295 Weight 90.5 kg 94.9 kg Intake: Oral 480 355 Output: Urine 650 Other: Voiding Method Toilet Ileal Conduit (Left) Ileal Conduit (Left) Ileal Conduit (Left) # Voids 2 3 1 - Labs CBC & Chem 7: 01/12/25 04:25 01/13/25 04:15 Labs: Abnormal Lab Results - Last 24 Hours (Table) 01/13/25 01/13/25 01/13/25 Range/Units 04:15 07:32 12:14 Sodium 134 L (135-145) mmol/L Carbon Dioxide 19.7 L (21.6-31.8) mmol/L Anion Gap 12.30 H (4.00-12.00) mmol/L BUN 37.3 H (9.0-27.0) mg/dL Creatinine 2.1 H (0.6-1.5) mg/dL Est GFR (CKD-EPI) 24 L (>=60) Glucose 178 H (70-110) mg/dL POC Glucose (mg/dL) 170 H 163 H (70-110) mg/dL 01/13/25 01/13/25 Range/Units 17:00 20:10 Sodium (135-145) mmol/L Carbon Dioxide (21.6-31.8) mmol/L Anion Gap (4.00-12.00) mmol/L BUN (9.0-27.0) mg/dL Creatinine (0.6-1.5) mg/dL Est GFR (CKD-EPI) (>=60) Glucose (70-110) mg/dL POC Glucose (mg/dL) 203 H 191 H (70-110) mg/dL
[2025-01-14 07:17] LABS: Glucose,Whole Blood 112 mg/dL (70-110)
[2025-01-14] MEDS: FUROSEMIDE 10 MG/ML 4 ML VIAL IV ONE (11:04)
--- NOTE | 2025-01-14 11:41 | P.PN ---
Subjective Patient is seen for follow-up for chronic kidney disease and acute kidney injury. Left-sided pain is improved today. CT of the abdomen did not show any intra-abdominal hematomas Serum creatinine at 2.1 yesterday Objective - Vital Signs Vital signs: Vital Signs Temp 98.1 F 01/14/25 07:15 Pulse 65 01/14/25 07:15 Resp 16 01/14/25 07:15 BP 139/83 01/14/25 07:15 Pulse Ox 95 01/14/25 07:15 FiO2 21 01/10/25 10:18 Intake & Output 01/13/25 01/14/25 01/14/25 18:59 06:59 18:59 Intake Total 480 355 240 Output Total 650 Balance 480 -295 240 Weight 94.9 kg Intake: Oral 480 355 240 Output: Urine 650 Other: Voiding Method Ileal Conduit (Left) Ileal Conduit (Left) # Voids 3 1 - Exam Patient is awake, comfortable, no acute distress Examination of the heart S1 and S2 Examination of the lungs bilateral breath sounds are heard Abdomen is soft, tenderness noted upper abdomen and on the left side. Examination of lower extremities shows 1+ edema FURNACE COMBU[employer]ION TESTER exam grossly intact - Labs CBC & Chem 7: 01/12/25 04:25 01/13/25 04:15 Labs: Abnormal Lab Results - Last 24 Hours (Table) 01/13/25 01/13/25 01/13/25 Range/Units 12:14 17:00 20:10 POC Glucose (mg/dL) 163 H 203 H 191 H (70-110) mg/dL 01/14/25 Range/Units 07:15 POC Glucose (mg/dL) 112 H (70-110) mg/dL Assessment and Plan Assessment: 1. Acute kidney injury during last hospitalization in October 2024 with component of obstructive uropathy with left hydronephrosis status post left nephrostomy tube. Renal function is improved since October with creatinine down to 1.7 from 2.5 mg/dL on 10/21/2024. Serum creatinine was elevated at 2.0 and patient was started on IV fluids. Now discontinued due to volume overload. Creatinine staying around 2 mg/dL 2. Left hydronephrosis with left nephrostomy tube. Nuclear scan showed 15% function on the left kidney and there are plans for left nephrectomy. Patient is scheduled for surgery on January 26 at [facility] 3. UTI maintained on antibiotics. Patient has history of recurrent urine tract infection 4. Chronic kidney disease stage IIIb with baseline creatinine 1.4 to 1.7 mg/dL. Previous UA has been completely benign Plan: Lasix IV x 1 Continue with antibiotics Repeat labs in a.m.
[2025-01-14 11:47] LABS: Glucose,Whole Blood 229 mg/dL (70-110)
--- NOTE | 2025-01-14 15:31 | P.PN ---
Subjective Progress Note Date: 01/14/25 Principal diagnosis: Reason for follow-up is left-sided pyelonephritis, multiple antibiotic allergies Patient is a 74-year-old female with multiple comorbidities, also have a left poorly functioning kidney with a complete obstruction at UPJ currently being treated with nephrostomy present to the hospital with pain to the left flank area cloudy urine concerning for left-sided pyonephritis. On today's evaluation that is 01/14/2025,the patient remains to be afebrile, patient is on room air not requiring supplemental oxygen and denies any shortness of breath no chest pain or cough.Patient denies having any nausea or vomiting, no abdominal pain and no diarrhea has been reported, patient mention feeling slightly better today. No new labs still waiting for sensitivity on the corynebacterium Objective - Vital Signs Vital signs: Vital Signs Temp 98.2 F 01/14/25 12:13 Pulse 70 01/14/25 12:13 Resp 16 01/14/25 12:13 BP 107/70 01/14/25 12:13 Pulse Ox 91 L 01/14/25 12:13 FiO2 21 01/10/25 10:18 Intake & Output 01/13/25 01/14/25 01/14/25 18:59 06:59 18:59 Intake Total 480 355 720 Output Total 650 Balance 480 -295 720 Weight 94.9 kg Intake: Oral 480 355 720 Output: Urine 650 Other: Voiding Method Ileal Conduit (Left) Ileal Conduit (Left) # Voids 3 1 - Exam GENERAL DESCRIPTION: An elderly female lying in bed in no distress RESPIRATORY SYSTEM: Unlabored breathing , decreased breath sounds at bases HEART: S1 S2 regular rate and rhythm , ABDOMEN: Soft , no tenderness EXTREMITIES: No edema feet - Labs CBC & Chem 7: 01/12/25 04:25 01/13/25 04:15 Labs: Abnormal Lab Results - Last 24 Hours (Table) 01/13/25 01/13/25 01/14/25 Range/Units 17:00 20:10 07:15 POC Glucose (mg/dL) 203 H 191 H 112 H (70-110) mg/dL 01/14/25 Range/Units 11:46 POC Glucose (mg/dL) 229 H (70-110) mg/dL Assessment and Plan (1) Allergy to multiple antibiotics Current Visit: Yes Status: Acute Code(s): Z88.1 - ALLERGY STATUS TO OTHER ANTIBIOTIC AGENTS SNOMED Code(s): 245050753 (2) UTI (urinary tract infection) Current Visit: Yes Status: Acute Code(s): N39.0 - URINARY TRACT INFECTION, SITE NOT SPECIFIED SNOMED Code(s): 18089209 Plan: 1patient with a complicated history presented to hospital with cloudy urine foul-smelling and did have pain to the left flank area this patient did have history of nephrostomy placed in October 2024 with a significantly positive UA concerning for complicated UTI likely from enteric gram-negative pathogen 2patient with multiple antibiotic ALLERGIES that would limit the number of antibiotic safe to use 3patient urine is growing corynebacterium stratum which is a skin kriss however the patient did have a nephrostomy for a couple of months now and may be the likely etiology agent, 4patient repeat urine is growing the same pathogen, the patient blood cultures has been negative 5patient to continue daptomycin still waiting for sensitivities to finalize as of 01/14/2025 discussed again with the MANAGER BEHAVIOR for admitting team who is following Dictation was produced using [employer] dictation software. please excuse any grammatical, word or spelling errors. Time with Patient: Less than 30
--- NOTE | 2025-01-14 15:31 | P.PN ---
Subjective Progress Note Date: 01/13/25 Principal diagnosis: Reason for follow-up is left-sided pyelonephritis, multiple antibiotic allergies Patient is a 74-year-old female with multiple comorbidities, also have a left poorly functioning kidney with a complete obstruction at UPJ currently being treated with nephrostomy present to the hospital with pain to the left flank area cloudy urine concerning for left-sided pyonephritis. On today's evaluation that is 01/13/2025,the patient denies any fever or any chills, patient is breathing comfortably on room air, the patient denies chest pain shortness of breath and no significant cough, patient left-sided abdominal pain slightly decreased no nausea vomiting or diarrhea. Patient did have a creatinine of 2.1 no CBC was done today Objective - Vital Signs Vital signs: Vital Signs Temp 98.7 F 01/13/25 07:29 Pulse 66 01/13/25 07:29 Resp 14 01/13/25 07:29 BP 115/69 01/13/25 07:29 Pulse Ox 94 L 01/13/25 07:29 FiO2 21 01/10/25 10:18 Intake & Output 01/12/25 01/13/25 01/13/25 18:59 06:59 18:59 Intake Total 1440 Balance 1440 Weight 90.5 kg Intake: Oral 1440 Other: Voiding Method Toilet Toilet Ileal Conduit (Left) Ileal Conduit (Left) # Voids 4 2 - Exam GENERAL DESCRIPTION: An elderly female lying in bed in no distress RESPIRATORY SYSTEM: Unlabored breathing , decreased breath sounds at bases HEART: S1 S2 regular rate and rhythm , ABDOMEN: Soft , no tenderness EXTREMITIES: No edema feet - Labs CBC & Chem 7: 01/12/25 04:25 01/13/25 04:15 Labs: Abnormal Lab Results - Last 24 Hours (Table) 01/12/25 01/12/25 01/13/25 Range/Units 17:26 20:18 04:15 Sodium 134 L (135-145) mmol/L Carbon Dioxide 19.7 L (21.6-31.8) mmol/L Anion Gap 12.30 H (4.00-12.00) mmol/L BUN 37.3 H (9.0-27.0) mg/dL Creatinine 2.1 H (0.6-1.5) mg/dL Est GFR (CKD-EPI) 24 L (>=60) Glucose 178 H (70-110) mg/dL POC Glucose (mg/dL) 150 H 169 H (70-110) mg/dL 01/13/25 01/13/25 Range/Units 07:32 12:14 Sodium (135-145) mmol/L Carbon Dioxide (21.6-31.8) mmol/L Anion Gap (4.00-12.00) mmol/L BUN (9.0-27.0) mg/dL Creatinine (0.6-1.5) mg/dL Est GFR (CKD-EPI) (>=60) Glucose (70-110) mg/dL POC Glucose (mg/dL) 170 H 163 H (70-110) mg/dL Assessment and Plan (1) Allergy to multiple antibiotics Current Visit: Yes Status: Acute Code(s): Z88.1 - ALLERGY STATUS TO OTHER ANTIBIOTIC AGENTS SNOMED Code(s): 659185373 (2) UTI (urinary tract infection) Current Visit: Yes Status: Acute Code(s): N39.0 - URINARY TRACT INFECTION, SITE NOT SPECIFIED SNOMED Code(s): 03234529 Plan: 1patient with a complicated history presented to hospital with cloudy urine foul-smelling and did have pain to the left flank area this patient did have history of nephrostomy placed in October 2024 with a significantly positive UA concerning for complicated UTI likely from enteric gram-negative pathogen 2patient with multiple antibiotic ALLERGIES that would limit the number of antibiotic safe to use 3patient urine is growing corynebacterium stratum which is a skin kriss however the patient did have a nephrostomy for a couple of months now and may be the likely etiology agent, 4patient repeat urine is growing the same pathogen, the patient blood cultures has been negative 5patient to continue daptomycin waiting for sensitivities to finalize Dictation was produced using [employer] dictation software. please excuse any grammatical, word or spelling errors. Time with Patient: Less than 30
[2025-01-14 17:09] LABS: Glucose,Whole Blood 213 mg/dL (70-110)
[2025-01-14 20:17] LABS: Glucose,Whole Blood 206 mg/dL (70-110)
[2025-01-15 06:32] LABS: Glucose,Whole Blood 141 mg/dL (70-110)
--- NOTE | 2025-01-15 06:49 | P.PN ---
Subjective Progress Note Date: 01/14/25 This is a very pleasant 74-year-old female who presented to the emergency department with foul-smelling urine and drainage from the nephrostomy tube on the left with concerns of possible infection. Patient follows with Dr. Borges in the outpatient setting with a past medical history of asthma, coronary artery disease, chest pain with angina, heart failure, diabetes mellitus, GERD, hyperlipidemia, hypertension, previous myocardial infarction, osteoarthritis, renal disease with aortic stenosis chronic kidney disease stage V, previous pacer placement/depression. Patient is following with urology Dr. Clark outpatient who is arranging for a nephrectomy on January 26 at a [facility] facility. Patient has been following with infectious disease along with urology and nephrology outpatient and is status post nephrostomy placement. Patient reports she has been having ongoing recurrent urinary tract infections and has been maintained on multiple antibiotics although presented with some abdominal pain and concerns for urinary tract infection grossly getting worse over the last few days. On admission labs were reviewed revealing a normal white count of 6.32, hemoglobin stable at 11.4, platelets 176, sodium 135 with a potassium of 3.5, BUN 27 and creatinine 1.76 which appears improved from previous readings in between 2 and 3 creatinine, magnesium 1.8, urinalysis performed showing turbid urine with protein light esterase. Patient was admitted for concerns of acute urinary tract infection and was given a dose of Levaquin. Patient evaluated this morning and have consulted urology along with nephrology and infectious disease. 01/06/2025 Patient is evaluated in follow-up on the medical floor. Her urine culture from the nephrostomy is currently pending final micro sensitivities preliminary showing Corynebacterium stratum group. She does state that she has not had a bowel movement since Saturday and feels constipated. She usually uses Colace and Benefiber at home. She is okay with trialing MiraLAX. She is currently maintained on IV aztreonam with ID following closely. She is being hydrated with normal saline running at 70 mL/h. BUN today of 36 creatinine of 1.84. Sodium level of 134. Calcium of 10.6. 01/07/2025 Patient is seen in follow-up today reports to feeling somewhat improved and is awaiting finalized cultures to determine appropriate discharge antibiotics. Infectious disease following as culture showing Corynebacterium and requesting micro lab to run sensitivities and micro lab was contacted and this is a send out which will not be sent out until 01/08/2025 and then will await sensitivities to be resulted. Patient is afebrile with no reports of chest pain or shortness of breath. Urology following with no further recommendations other than continued course and nephrectomy on January 26 as scheduled. Nephrology following monitoring kidney functions and creatinine is 2 today. Encouraged increase activity as tolerated with getting up and walking more frequently. Continue gentle hydration per nephrology and will follow-up on repeat labs. 01/08/2025 Patient is seen in follow-up today awaiting culture sensitivities that were requested from micro lab which is a send out and will likely not be resulted until early next week. Patient is continued on antibiotics in the form of daptomycin with infectious disease following closely. Patient has multiple anti biotic allergies making it difficult to consider outpatient antibiotics. Patient was reporting a dull cough and chest x-ray will be obtained. Recommend incentive spirometer and increasing activity as tolerated and sitting up on the bed more frequently. Patient is afebrile with no reports of chest pain or palpitations. Patient is continued on gentle IV hydration per nephrology with concerns of developing mild volume overload. Creatinine is trending down and 1.7. 01/09/2025 Patient is seen and evaluated in follow-up with no acute overnight issues noted. Gentle hydration was continued showing some improvements in kidney functions with a creatinine of 1.78 and will discontinue IV fluids. Encouraged incentive spirometer use and getting up more frequently out of the bed. Awaiting finaliz ed culture sensitivities to determine appropriate antibiotics on discharge per infectious disease. Patient is afebrile with no reports of worsening shortness of breath. Patient has been tolerating diet with no reported nausea or vomiting. Will discuss with infectious disease and micro lab regarding discharge planning once sensitivities have resulted. 01/10/2025 Patient is seen today with nephrology and infectious disease following. Continuing to await culture sensitivities to determine appropriate antibiotics on discharge. Will call micro lab to inquire about some doubt that was apparently sent out on Saturday and remains pending. Patient is afebrile with no reported chest pain or shortness of breath. Patient reports tolerating diet and potassium mildly elevated at 5.3, recommend low potassium diet. Encouraged increased activity as tolerated and getting out of the bed more frequently. 01/11/2025 Patient is seen and evaluated in follow-up today with infectious disease following. Patient is maintained on IV antibiotics in the form of daptomycin and will continue. Micro lab contacted and per staff, sensitivities are in progress although will likely not be resulted until , 01/14/2025. Patient being followed by nephrology was maintained on gentle hydration although given a dose of Lasix this morning and kidney function slightly worse at 1.9 creatinine today. Potassium elevated as well recommend low potassium diet and will give a dose of Lokelma. Per nursing staff patient was getting up to the bathroom and fell and struck her head on the bathroom sink and also landed on her left side reporting some left-sided rib pain and tenderness. Nephrostomy evaluated and appears stable and is draining. Will order CT brain also x-ray. Encourage incentive spirometer and will have PT/OT therapy evaluate the patient. Case management is aware and we are awaiting finalized cultures to determine discharge antibiotics. 01/12/2025 Patient is seen in follow-up today currently worked with physical therapy was able to walk up and down with her walker and would like to return home on discharge. Patient being progressively more weak with prolonged hospitalization will await PT/therapy evaluation and discuss further with case management/social work. Patient is scheduled to undergo nephrectomy on January 26, 2025 at [facility]. Continuing to await sensitivities on cultures per ID recommendations and will continue following up with micro lab on a daily basis. It was reported per micro lab that results will not be available until 01/14/2025. Will contact daily for any changes. Patient is currently sitting up in the chair with no reports of chest pain or shortness of breath. Incentive and encouraged to continue patient is having increasing pain in the left and x-ray was reviewed revealing no fractures 01/13/2025 Patient is seen in follow-up today continues to report left-sided pain in the rib area and reports has been using incentive spirometer. Patient has been working with physical therapy although appears to be guarding that left side quite frequently. Nephrology following as well and creatinine is 2.2 today they have maintained off diuretics and IV fluids. Continuing to await for culture sensitivities per infectious disease and patient is continued on daptomycin at this time. Encouraged increase activity as tolerated and will continue with current pain regimen. Patient is afebrile with no reports of chest pain or palpitations. Patient reports it does hurt with deep inspiration due to the rib pain but again have stressed the importance of incentive spirometer use and continuing to use. 01/14/2025 Patient is seen in follow-up today continues to report left-sided rib pain and side pain with some bruising from her fall. Nephrostomy tube functioning with continued urinary output. Nephrology following and is giving a dose of Lasix today as patient has generalized edema noted and had been maintained on gentle hydration. Patient encouraged to increase activity as tolerated and patient is significantly weak with prolonged hospitalization. Continuing to await cultures and called micro lab personally again today as content writer was told previously that culture sensitivities that were a send out would be available by . Per micro lab, this is not the case and they have no idea when it will be resulted and will be faxed once they have been resulted. Infectious disease is aware and will be continuing to await the sensitivities. CT abdomen was done yesterday with no obvious abnormalities and no abdominal hematoma noted. REVIEW OF SYSTEMS: CONSTITUTIONAL: No fever, no malaise, no fatigue. HEENT: No recent visual problems or hearing problems. Denied any sore throat. CARDIOVASCULAR: No chest pain, orthopnea, PND, no palpitations, no syncope. PULMONARY: No shortness of breath, reports a slight cough, no hemoptysis. Reports continued rib pain on the left that persists GASTROINTESTINAL: No diarrhea, no further reports of nausea, no vomiting, reports diffuse abdominal pain. NEUROLOGICAL: No headaches, reports of generalized weakness, no numbness. PHYSICAL EXAMINATION: GENERAL: The patient is alert and oriented x3, not in any acute distress. Well developed, well nourished. Morbidly obese HEENT: Pupils are round and equally reacting to light. EOMI. No scleral icterus. No conjunctival pallor. Normocephalic, atraumatic. No pharyngeal erythema. No thyromegaly. CARDIOVASCULAR: S1 and S2 present. No murmurs, rubs, or gallops. PULMONARY: Diminished breath sounds bilaterally otherwise chest is clear to auscultation, small faint occasional expiratory wheezing noted ABDOMEN: Soft, morbidly obese, nontender, nondistended, normoactive bowel sounds. No palpable organomegaly. MUSCULOSKELETAL: No joint swelling or deformity. EXTREMITIES: No cyanosis, clubbing, or pedal edema. NEUROLOGICAL: Gross neurological examination did not reveal any focal deficits. SKIN: No rashes. 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, status post left nephrostomy and tentatively scheduled for nephrectomy on January 26, 2025 at [facility] History of recurrent urinary tract infections Acute urinary tract infection, present on admission with a largely abnormal urinalysis, foul-smelling drainage and decreased urinary output, culture showing Cornibacterium stratum and awaiting culture sensitivities for micro lab, cultures will not be available until , 01/14/2025 Constipation, improved and having bowel movements Generalized weakness with gait dysfunction and fall on 01/11/2025 striking head and left side of ribs, CT head negative and x-ray reveals no rib fractures History of asthma, not in exacerbation Coronary artery disease history Acute on chronic kidney disease History of heart failure, unknown EF 30 Diabetes mellitus type 2 History of GERD Hyperlipidemia Hypertension Previous myocardial infarctions History of osteoarthritis History of kidney failure stage V, scheduled for nephrectomy on the left January 26, 2025 at [facility] History of anxiety/depression Obesity with BMI of 39.3 aortic stenosis history and AICD placement with previous coronary artery bypass grafting and multiple stents previously GI prophylaxis DVT prophylaxis Full code Plan: Patient was admitted with concerns of foul-smelling odor and left nephrostomy follows with urology and nephrology closely along with infectious disease as patient has been hospitalized multiple times. Patient follows with urology outpatient and is being arranged for left nephrectomy at [facility] and tent atively scheduled for 01/26/2025 Patient is continued on daptomycin, preliminary cultures are showing Corynebacterium species with recommendations from ID and discussed with micro lab about ordering sensitivities. This is a send out and will be sent on 01/08/2025 and will await finalized sensitivities to determine appropriate antibiotics on discharge. Unsure if patient will require IV antibiotic therapy on discharge and case management is following verifying coverage, likely no discharge until least to arrange for discharge planning. As mentioned above, contacted micro lab and they still continue to have no idea when the sensitivities will be resulted. Updated the fax number and they report will fax once they have any information Follow-up on repeat labs and replace electrolytes per protocol. IV fluids have been discontinued and creatinine appears stable at 2 and is being given a dose of Lasix per nephrology. Repeat labs in the a.m. Encourage incentive spirometer use at least 10 times every hour while awake Continue monitoring Accu-Cheks AC and at bedtime and will adjust insulins accordingly Encouraged increased activity as tolerated and getting up out of the bed more f requently. Patient continues to elicit significant abdominal pain although feels this more rib pain and musculoskeletal, CT abdomen with no obvious abnormalities and no hematoma in the abdomen noted Again contacted micro lab today 01/14/2025 and culture sensitivities will not be available at this time until they are sent to them and then they will fax. Initially was told from micro lab these sensitivities will be resulted by , 01/14/2025.. Infectious disease following and will be awaiting culture sensitivities to determine appropriate discharge antibiotics Recommend PT/OT therapy daily as patient may need ECF on discharge for continued strength and mobility. Patient has had prolonged hospitalization and generalized weak. The impression and plan of care has been dictated by Cassidy Blevins, Nurse Practitioner as directed. Dr. Marv MD I have performed a history and examination and MDM of this patient, discussed the same with the dictator, and agree with the dictator's assessment and plan as written ,documented as a scribe. Based on total visit time, I have performed more than 50% of the visit. Objective - Vital Signs Vital signs: Vital Signs Temp 98.2 F 01/14/25 12:13 Pulse 70 01/14/25 12:13 Resp 16 01/14/25 12:13 BP 107/70 01/14/25 12:13 Pulse Ox 91 L 01/14/25 12:13 FiO2 21 01/10/25 10:18 Intake & Output 01/13/25 01/14/25 01/14/25 18:59 06:59 18:59 Intake Total 480 355 720 Output Total 650 Balance 480 -295 720 Weight 94.9 kg Intake: Oral 480 355 720 Output: Urine 650 Other: Voiding Method Ileal Conduit (Left) Ileal Conduit (Left) # Voids 3 1 - Labs CBC & Chem 7: 01/12/25 04:25 01/13/25 04:15 Labs: Abnormal Lab Results - Last 24 Hours (Table) 01/13/25 01/13/25 01/14/25 Range/Units 17:00 20:10 07:15 POC Glucose (mg/dL) 203 H 191 H 112 H (70-110) mg/dL 01/14/25 Range/Units 11:46 POC Glucose (mg/dL) 229 H (70-110) mg/dL
[2025-01-15 07:12] VITALS: RESP 16
[2025-01-15 10:16] LABS: Basophils # (A) 0.03 X 10*3/uL (0.00-0.10); Basophils % (A) 0.5 %; Eosinophils # (A) 0.42 X 10*3/uL (0.04-0.35); Eosinophils % (A) 6.9 %; HCT 31.2 % (37.2-46.3); HGB 9.7 g/dL (12.0-15.0); Lymphocytes # (A) 0.98 X 10*3/uL (0.90-5.00); Lymphocytes % (A) 16.2 %; MCH 31.1 pg (27.0-32.0); MCHC 31.1 g/dL (32.0-37.0); Mean Platelet Volume 10.1 FL (9.5-12.2); Monocytes # (A) 0.64 X 10*3/uL (0.20-1.00); Monocytes % (A) 10.6 %; NRBC Per 100 WBC 0 X 10*3/uL (0.00-0.01); Neutrophils # (A) 3.94 X 10*3/uL (1.80-7.70); Neutrophils % (A) 65.1 %; Platelet Count 239 X 10*3/uL (140-440); RBC 3.12 X 10*6/uL (4.10-5.20); RDW 14.7 % (11.5-14.5); WBC 6.05 X 10*3/uL (4.50-10.00)
[2025-01-15 10:30] LABS: ALT 20 U/L (8-44); AST 15 U/L (13-35); Albumin 3.4 g/dL (3.8-4.9); Albumin/Globulin Ratio 1.79 Ratio (1.60-3.17); Alkaline Phosphatase 113 U/L (41-126); BUN/Creat Ratio 19.05 Ratio (12.00-20.00); Blood Urea Nitrogen 36.2 mg/dL (9.0-27.0); Calcium 9.5 mg/dL (8.7-10.3); Carbon Dioxide 24.7 mmol/L (21.6-31.8); Chloride 100 mmol/L (96-109); Globulin 1.9 g/dL (1.6-3.3); Glucose 150 mg/dL (70-110); Potassium 4.9 mmol/L (3.5-5.5); Sodium 133 mmol/L (135-145); Total Bilirubin 0.3 mg/dL (0.3-1.2); Total Protein 5.3 g/dL (6.2-8.2)
[2025-01-15 12:00] LABS: Glucose,Whole Blood 191 mg/dL (70-110)
[2025-01-15 12:25] VITALS: BP 113/64; PULSE 57; TEMP 98.1
[2025-01-15] MEDS: LINEZOLID 600 MG TAB PO STA (16:51)
--- NOTE | 2025-01-15 17:06 | P.PN ---
Subjective Patient is seen for follow-up for chronic kidney disease and acute kidney injury. Left-sided pain is improved. CT of the abdomen did not show any intra-abdominal hematomas Serum creatinine at 1.9 No shortness of breath Objective - Vital Signs Vital signs: Vital Signs Temp 98.1 F 01/15/25 12:25 Pulse 57 L 01/15/25 12:25 Resp 16 01/15/25 12:25 BP 113/64 01/15/25 12:25 Pulse Ox 95 01/15/25 12:25 FiO2 21 01/10/25 10:18 Intake & Output 01/14/25 01/15/25 01/15/25 18:59 06:59 18:59 Intake Total 2220 250 2220 Balance 2220 250 2220 Weight 94.48 kg Intake: Oral 2220 250 2220 Other: # Voids 6 1 4 - Exam Patient is awake, comfortable, no acute distress Examination of the heart S1 and S2 Examination of the lungs bilateral breath sounds are heard Abdomen is soft, tenderness noted upper abdomen and on the left side. Examination of lower extremities shows 1+ edema OCCUPATIONAL THERAPY MANAGER exam grossly intact - Labs CBC & Chem 7: 01/15/25 06:57 01/15/25 06:57 Labs: Abnormal Lab Results - Last 24 Hours (Table) 01/14/25 01/14/25 01/15/25 Range/Units 17:08 20:16 06:31 RBC (4.10-5.20) X 10*6/uL Hgb (12.0-15.0) g/dL Hct (37.2-46.3) % MCV (80.0-97.0) FL MCHC (32.0-37.0) g/dL RDW (11.5-14.5) % Eosinophils # (0.04-0.35) X 10*3/uL Sodium (135-145) mmol/L BUN (9.0-27.0) mg/dL Creatinine (0.6-1.5) mg/dL Glucose (70-110) mg/dL POC Glucose (mg/dL) 213 H 206 H 141 H (70-110) mg/dL Total Protein (6.2-8.2) g/dL Albumin (3.8-4.9) g/dL 06/13/25 06/13/25 06/13/25 Range/Units 06:57 06:57 11:58 RBC 3.12 L (4.10-5.20) X 10*6/uL Hgb 9.7 L (12.0-15.0) g/dL Hct 31.2 L (37.2-46.3) % MCV 100.0 H (80.0-97.0) FL MCHC 31.1 L (32.0-37.0) g/dL RDW 14.7 H (11.5-14.5) % Eosinophils # 0.42 H (0.04-0.35) X 10*3/uL Sodium 133 L (135-145) mmol/L BUN 36.2 H (9.0-27.0) mg/dL Creatinine 1.9 H (0.6-1.5) mg/dL Glucose 150 H (70-110) mg/dL POC Glucose (mg/dL) 191 H (70-110) mg/dL Total Protein 5.3 L (6.2-8.2) g/dL Albumin 3.4 L (3.8-4.9) g/dL Assessment and Plan Assessment: 1. Acute kidney injury during last hospitalization in October 2024 with component of obstructive uropathy with left hydronephrosis status post left nephrostomy tube. Renal function is improved since October with creatinine down to 1.7 from 2.5 mg/dL on 10/21/2024. Serum creatinine was elevated at 2.0 and patient was started on IV fluids. Now discontinued due to volume overload. Creatinine staying around 2 mg/dL 2. Left hydronephrosis with left nephrostomy tube. Nuclear scan showed 15% function on the left kidney and there are plans for left nephrectomy. Patient is scheduled for surgery on January 26 at [facility] 3. UTI maintained on antibiotics. Patient has history of recurrent urine tract infection 4. Chronic kidney disease stage IIIb with baseline creatinine 1.4 to 1.7 mg/dL. Previous UA has been completely benign 5. Volume overload Plan: Lasix IV x 1 Continue with antibiotics Repeat labs in a.m.
[2025-01-16] MEDS ORDERED: FUROSEMIDE 40 MG TAB PO SCH (09:00)
--- NOTE | 2025-01-16 15:05 | P.PN ---
Subjective Progress Note Date: 01/15/25 Principal diagnosis: Reason for follow-up is left-sided pyelonephritis, multiple antibiotic allergies Patient is a 74-year-old female with multiple comorbidities, also have a left poorly functioning kidney with a complete obstruction at UPJ currently being treated with nephrostomy present to the hospital with pain to the left flank area cloudy urine concerning for left-sided pyonephritis. On today's evaluation that is 01/15/2025, the patient continues to be afebrile, the patient is on room air and breathing comfortably, the Pt denies having any chest pain or cough, the patient denies having any abdominal pain no vomiting or any diarrhea. Patient white count 6.05, creatinine is 1.9 urine culture finalized corynebacterium that is sensitive to Zyvox Objective - Vital Signs Vital signs: Vital Signs Temp 98.1 F 01/15/25 12:25 Pulse 57 L 01/15/25 12:25 Resp 16 01/15/25 12:25 BP 113/64 01/15/25 12:25 Pulse Ox 95 01/15/25 12:25 FiO2 21 01/10/25 10:18 Intake & Output 01/14/25 01/15/25 01/15/25 18:59 06:59 18:59 Intake Total 2220 250 480 Balance 2220 250 480 Weight 94.48 kg Intake: Oral 2220 250 480 Other: # Voids 6 1 - Exam GENERAL DESCRIPTION: An elderly female lying in bed in no distress RESPIRATORY SYSTEM: Unlabored breathing , decreased breath sounds at bases HEART: S1 S2 regular rate and rhythm , ABDOMEN: Soft , no tenderness EXTREMITIES: No edema feet - Labs CBC & Chem 7: 01/15/25 06:57 01/15/25 06:57 Labs: Abnormal Lab Results - Last 24 Hours (Table) 01/14/25 01/14/25 01/15/25 Range/Units 17:08 20:16 06:31 RBC (4.10-5.20) X 10*6/uL Hgb (12.0-15.0) g/dL Hct (37.2-46.3) % MCV (80.0-97.0) FL MCHC (32.0-37.0) g/dL RDW (11.5-14.5) % Eosinophils # (0.04-0.35) X 10*3/uL Sodium (135-145) mmol/L BUN (9.0-27.0) mg/dL Creatinine (0.6-1.5) mg/dL Glucose (70-110) mg/dL POC Glucose (mg/dL) 213 H 206 H 141 H (70-110) mg/dL Total Protein (6.2-8.2) g/dL Albumin (3.8-4.9) g/dL 01/15/25 01/15/25 01/15/25 Range/Units 06:57 06:57 11:58 RBC 3.12 L (4.10-5.20) X 10*6/uL Hgb 9.7 L (12.0-15.0) g/dL Hct 31.2 L (37.2-46.3) % MCV 100.0 H (80.0-97.0) FL MCHC 31.1 L (32.0-37.0) g/dL RDW 14.7 H (11.5-14.5) % Eosinophils # 0.42 H (0.04-0.35) X 10*3/uL Sodium 133 L (135-145) mmol/L BUN 36.2 H (9.0-27.0) mg/dL Creatinine 1.9 H (0.6-1.5) mg/dL Glucose 150 H (70-110) mg/dL POC Glucose (mg/dL) 191 H (70-110) mg/dL Total Protein 5.3 L (6.2-8.2) g/dL Albumin 3.4 L (3.8-4.9) g/dL Assessment and Plan (1) Allergy to multiple antibiotics Status: Acute Code(s): Z88.1 - ALLERGY STATUS TO OTHER ANTIBIOTIC AGENTS SNOMED Code(s): 424738670 (2) UTI (urinary tract infection) Status: Acute Code(s): N39.0 - URINARY TRACT INFECTION, SITE NOT SPECIFIED SNOMED Code(s): 25032373 Plan: 1patient with a complicated history presented to hospital with cloudy urine foul-smelling and did have pain to the left flank area this patient did have history of nephrostomy placed in October 2024 with a significantly positive UA concerning for complicated UTI likely from enteric gram-negative pathogen 2patient with multiple antibiotic ALLERGIES that would limit the number of antibiotic safe to use 3patient urine is growing corynebacterium stratum which is a skin kriss however the patient did have a nephrostomy for a couple of months now and may be the likely etiology agent, 4patient repeat urine is growing the same pathogen, the patient blood cultures has been negative 5sensitivities on the corynebacterium has been finalized that is sensitive to Zyvox we will consider a 12-day course on discharge that will bridge her till her surgery scheduled for 01/26/2025, discussed with AUTOMATIC CAR WASH ATTENDANT for admitting working on discharge Dictation was produced using [employer] dictation software. please excuse any grammatical, word or spelling errors., Time with Patient: Less than 30
--- NOTE | 2025-01-16 18:20 | P.DS ---
Providers Date of admission: 01/04/25 20:03 Expected date of discharge: 01/15/25 Attending physician: Liza Fair Consults: 01/05/25 10:26 Consult Physician Routine Consulting Provider: Erik Clark Consult Reason/Comments: urostomy, uti Do you want consulting provider notified?: Yes Consult Physician Urgent Consulting Provider: Devan Chirinos Consult Reason/Comments: uti, nephrostomy, upcoming nephrectomy this month Do you want consulting provider notified?: Yes 01/05/25 12:20 Consult Physician Urgent Consulting Provider: Minerva Avalos Consult Reason/Comments: maura, ckd, recent nephrectomy Do you want consulting provider notified?: Yes Primary care physician: Galo Borges Hospital Course: Final diagnosis History of recent left 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, status post left nephrostomy and tentatively scheduled for nephrectomy on January 26, 2025 at [facility] History of recurrent urinary tract infections Acute urinary tract infection, present on admission with a largely abnormal urinalysis, foul-smelling drainage and decreased urinary output, culture showing Cornibacterium stratum with sensitivities to Zyvox and will continue on 12 days per ID recommendations on discharge Constipation, improved and having bowel movements Generalized weakness with gait dysfunction and fall on 01/11/2025 striking head and left side of ribs, CT head negative and x-ray reveals no rib fractures, significant ecchymosis noted on the left lateral lower rib cage area History of asthma, not in exacerbation Coronary artery disease history Acute on chronic kidney disease History of heart failure, unknown EF 30 Diabetes mellitus type 2 History of GERD Hyperlipidemia Hypertension Previous myocardial infarctions History of osteoarthritis History of kidney failure stage V, scheduled for nephrectomy on the left January 26, 2025 at [facility] History of anxiety/depression Obesity with BMI of 39.3 aortic stenosis history and AICD placement with previous coronary artery bypass grafting and multiple stents previously GI prophylaxis DVT prophylaxis Full code Discharge disposition Patient is being discharged in a stable condition with guarded prognosis to home with home care. Patient will follow-up with Dr. Borges in the outpatient setting upon discharge. Patient is to continue with Zyvox twice daily for the next 12 days and encouraged to continue keeping appointment for surgical intervention on January 26, 2025 as scheduled for nephrectomy. Patient to follow- up with nephrology, urology, and infectious disease outpatient. Total time taken is greater than 35 minutes. Hospital course This is a 74-year-old female who was recently admitted with recent history of left nephrostomy noted to have bowel smelling urine and concentration with concerns of leaking around the site and possible infection. Patient is scheduled to undergo nephrectomy on the left at [facility] on January 26, 2025 which is being arranged per urology outpatient. Patient being treated with urinary tract infection with infectious disease following maintained on daptomycin. Patient's cultures finalized with Corynebacterium stratum which is likely a contaminant although patient clinically did present with urinary tract infection and has been on multiple rounds of antibiotics and has significant antibiotic allergy history. Infectious disease recommending continuing on Zyvox on discharge and close outpatient follow-up with surgeon. Patient was instructed to contact surgery center regarding this hospitalization to discuss medications being taken currently along with treatment plan and to ensure patient is still a surgical candidate for this procedure. Patient is medically stable and should proceed with the surgery. Patient has had prolonged hospitalization and generalized weakness suffered a fall in the bathroom striking her head and underwent CT abdomen which was negative and also struck her left side of her ribs and is developed significant ecchymosis and pain on that left side. Patient did have CT abdomen that was performed showing no obvious injuries or developing hematomas. Patient with known constipation recommend continued scheduled regimen well as as needed. Patient also to continue with incentive spirometer on discharge and close outpatient follow-up with primary care provider this week. Patient has been cleared by consultations and will be going home. Please refer to consultation notes for further HPI. Currently no reports of chest pain, shortness of breath, or palpitations. Patient is afebrile. No reports of nausea or vomiting and patient is tolerating diet. Patient will be discharged home today. High risk for readmissions given significant comorbidities. Physical exam: Gen: This is a 74-year-old female who is awake, alert and oriented x 2-3, baseline, well-developed, elderly appearing, morbidly obese HEENT: Head is atraumatic, normocephalic. Pupils equal, round. Sclerae is anicteric. NECK: Supple. No JVD. No lymphadenopathy. No thyromegaly. LUNGS: Diminished breath sounds bilaterally otherwise clear to auscultation. No wheezes or rhonchi. No intercostal retractions. HEART: Regular rate and rhythm. No murmur. ABDOMEN: Soft. Morbidly obese bowel sounds are present. No masses. No tenderness. Left sided ecchymosis noted near the bottom of the rib cage and abdomen EXTREMITIES: No pedal edema. No calf tenderness. NEUROLOGICAL: Patient is awake, alert and oriented x 2-3. Cranial nerves 2 through 12 are grossly intact. Diffusely weak Please refer to medication reconciliation sheet for a list of medications. The impression and plan of care has been dictated by Cassidy Blevins, Nurse Practitioner as directed. Dr. Lois MD I have performed a history and examination and MDM of this patient, discussed the same with the dictator, and agree with the dictator's assessment and plan as written ,documented as a scribe. Based on total visit time, I have performed more than 50% of the visit. Patient Condition at Discharge: Fair Plan - Discharge Summary New Discharge Prescriptions: New HYDROcodone/APAP 5-325MG [[place] 5-325] 1 each PO Q6HR PRN #12 tab PRN Reason: Pain carvediloL [Coreg] 3.125 mg PO BID-W/MEALS 30 Days #60 tab polyethylene glycoL 3350 [Miralax] 17 gm PO HS #30 packet Linezolid [Zyvox] 600 mg PO Q12H 12 Days #24 tab Continue Montelukast [Singulair] 10 mg PO HS Famotidine [Pepcid] 20 mg PO HS allopurinoL [Zyloprim] 300 mg PO HS Evolocumab [Repatha Syringe] 140 mg SQ Q14D Insulin Lispro [humaLOG Kwikpen] See Protocol SQ TID-W/MEALS Isosorbide Mononitrate ER [Imdur] 60 mg PO BID Acetaminophen Tab [Tylenol] 1,000 mg PO BID Insulin Glargine,Hum.rec.anlog [Lantus Solostar Pen] 10 units SQ BID Ranolazine [Ranexa] 500 mg PO BID Nystatin 100,000 Unit/gm Powd [Mycostatin Powder] 1 applic TOPICAL BID Nystatin 100,000Unit/gm Cream [Mycostatin Cream] 1 applic TOPICAL BID Acetaminophen Tab [Tylenol] 1,000 mg PO Q6HR PRN PRN Reason: Pain Or Fever > 100.5 Discontinued FLUoxetine HCL [PROzac] 20 mg PO DAILY carvediloL [Coreg*] 12.5 mg PO DAILY #30 tab Aspirin EC [Ecotrin Low Dose] 81 mg PO DAILY Furosemide [Lasix] 40 mg PO BID carvediloL [Coreg] 6.25 mg PO HS Discharge Medication List Famotidine [Pepcid] 20 mg PO HS 06/20/16 [History] Montelukast [Singulair] 10 mg PO HS 06/20/16 [History] allopurinoL [Zyloprim] 300 mg PO HS 06/20/16 [History] Evolocumab [Repatha Syringe] 140 mg SQ Q14D 10/05/19 [History] Insulin Glargine,Hum.rec.anlog [Lantus Solostar Pen] 10 units SQ BID 02/21/23 [History] Insulin Lispro [humaLOG Kwikpen] See Protocol SQ TID-W/MEALS 02/21/23 [History] Ranolazine [Ranexa] 500 mg PO BID 02/21/23 [History] Nystatin 100,000 Unit/gm Powd [Mycostatin Powder] 1 applic TOPICAL BID 10/18/24 [History] Acetaminophen Tab [Tylenol] 1,000 mg PO BID 01/05/25 [History] Acetaminophen Tab [Tylenol] 1,000 mg PO Q6HR PRN 01/05/25 [History] Isosorbide Mononitrate ER [Imdur] 60 mg PO BID 01/05/25 [History] Nystatin 100,000Unit/gm Cream [Mycostatin Cream] 1 applic TOPICAL BID 01/05/25 [History] HYDROcodone/APAP 5-325MG [[place] 5-325] 1 each PO Q6HR PRN #12 tab 01/15/25 [Rx] Linezolid [Zyvox] 600 mg PO Q12H 12 Days #24 tab 01/15/25 [Rx] carvediloL [Coreg] 3.125 mg PO BID-W/MEALS 30 Days #60 tab 01/15/25 [Rx] polyethylene glycoL 3350 [Miralax] 17 gm PO HS #30 packet 01/15/25 [Rx] Follow up Appointment(s)/Referral(s): Minerva Avalos MD [STAFF PHYSICIAN] - 1 Week (Please call office saturday to make follow up appointment.) Erik Clark MD [STAFF PHYSICIAN] - 1 Week (The office is closed please call saturday to make follow up appointment.) Galo Borges MD [Primary Care Provider] - 1-2 days [facility] [NON-STAFF] - As Needed Devan Chirinos MD [STAFF PHYSICIAN] - 1 Week (The office was closed please make follow up appointment on saturday.) Ambulatory/Diagnostic Orders: Basic Metabolic Panel [LAB.AMB] Time Frame: 3 Days, Location: None Selected Patient Instructions/Handouts: Hydrocodone/Acetaminophen (By mouth), Carvedilol (By mouth), Linezolid (By mouth), Polyethylene Glycol 3350 (By mouth), Acute Kidney Injury (DC), Urinary Tract Infection in Women (DC) Activity/Diet/Wound Care/Special Instructions: Activity limited until follow-up Follow-up with primary care provider on discharge Follow-up with urology in 1 week Continue taking antibiotics until finished Continue with incentive spirometer use at least 10 times every hour while awake Contact your surgery center to make them aware you are hospitalized and on antibiotics and give them a full list of your medications Continue with bowel regimen daily while taking pain medication Discharge/Stand Alone Forms: Who Do I Call?, Community Resources Discharge Disposition: HOME WITH HOME HEALTH SERVICES
--- NOTE | 2025-01-19 17:49 | CDI ---
Documentation Clarification Form Date: 01/19/2025 05:06:51 PM From: Cindy Waddell RN, CCDS Email: [email or web address] Admit Date: 01/04/2025 08:03:00 PM Patient Name: Gypsy Auguste Visit Number: [id number] Discharge Date: 01/15/2025 05:50:00 PM ATTENTION: The Clinical Documentation Specialists (CDI) and [facility] Coding Staff appreciate your assistance in clarifying documentation. Please respond to the clarification below the line at the bottom and electronically sign. The CDI & [facility] Coding staff will review the response and follow-up if needed. Please note: Queries are made part of the Legal Health Record. If you have any questions, please contact the author of this message via ITS. Doctor Liza Fair UTI is documented in the progress notes, and the patient has a left nephrostomy tube. Additional clarification regarding the etiology of the UTI is requested. History/Risk Factors: From the 01/05 H&P: "74-year-old female who presented to the emergency department with foul-smelling urine and drainage from the nephrostomy tube on the left with concerns of possible infection. Patient has been following with infectious disease along with urology and nephrology outpatient and is status post nephrostomy placement. Patient reports she has been having ongoing recurrent urinary tract infections and has been maintained on multiple antibiotics although presented with some abdominal pain and concerns for urinary tract infection grossly getting worse over the last few days." Clinical Indicators: 01/04 Urinalysis: turbid; moderate blood; large leukocyte esterase; >182 WBC 01/07 Urinalysis: turbid; large blood; large leukocyte esterase; 145 WBC 01/04 and 01/07 Urine culture: corynebacterium ED: "Patient has left nephrostomy tube secondary to impending failure of the left kidney with prognosis being nephrectomy. Patient presents today with foul smell from that area and severe pain. Patient was admitted on IV antibiotics for 1 day to watch for cultures and then patient will follow-up with nephrostomy tube exchange on Saturday." H&P: "foul-smelling urine and drainage from the nephrostomy tube on the left with concerns of possible infection." Treatment: IV Aztreonam 2gm Q8H 01/05-01/07; IV Daptomycin 400mg QD 01/07-01/15; IV Levaquin 750mg x1 on 01/04; 1L 0.9 NS IV bolus x1 on 01/04; Please clarify the etiology of the UTI, if known: [ ] UTI related to left nephrostomy tube [ ] UTI not related to left nephrostomy tube [ ] Other condition, please specify [ ] Unable to determine UTI related to left nephrostomy tube MTDD
== END 2025-01-15 17:50 | disposition home health service (06) | DRG 699 ==
LOC: EC 15:14 → 5NMEDONC 20:02 → OBSVTOIN 20:03 → 5NMEDONC 21:53
PROVIDERS: ADMIT Hospitalist; ATTEND Hospitalist
DX: T83.512A Infection and inflammatory reaction due to nephrostomy catheter, initial encounter (principal); I13.2 Hypertensive heart and chronic kidney disease with heart failure and with stage 5 chronic kidney disease, or end stage renal disease; N13.6 Pyonephrosis; J45.901 Unspecified asthma with (acute) exacerbation; N18.5 Chronic kidney disease, stage 5; N17.9 Acute kidney failure, unspecified; I50.9 Heart failure, unspecified; E11.22 Type 2 diabetes mellitus with diabetic chronic kidney disease; E66.01 Morbid (severe) obesity due to excess calories; F32.A Depression, unspecified; I35.0 Nonrheumatic aortic (valve) stenosis; Z93.6 Other artificial openings of urinary tract status; Z79.4 Long term (current) use of insulin; B96.89 Other specified bacterial agents as the cause of diseases classified elsewhere; Z86.74 Personal history of sudden cardiac arrest; E78.5 Hyperlipidemia, unspecified; E86.0 Dehydration; I25.10 Atherosclerotic heart disease of native coronary artery without angina pectoris; F41.9 Anxiety disorder, unspecified; K21.9 Gastro-esophageal reflux disease without esophagitis; E87.5 Hyperkalemia; K59.00 Constipation, unspecified; M19.90 Unspecified osteoarthritis, unspecified site; R26.9 Unspecified abnormalities of gait and mobility; W01.198A Fall on same level from slipping, tripping and stumbling with subsequent striking against other object, initial encounter; Y92.231 Patient bathroom in hospital as the place of occurrence of the external cause; Z95.3 Presence of xenogenic heart valve; Z68.39 Body mass index [BMI] 39.0-39.9, adult; Z87.440 Personal history of urinary (tract) infections; I25.2 Old myocardial infarction; Z95.1 Presence of aortocoronary bypass graft; Z95.810 Presence of automatic (implantable) cardiac defibrillator; Z95.5 Presence of coronary angioplasty implant and graft; Z88.0 Allergy status to penicillin; Z88.1 Allergy status to other antibiotic agents; Z79.82 Long term (current) use of aspirin; Z79.899 Other long term (current) drug therapy; Z91.81 History of falling; Y84.6 Urinary catheterization as the cause of abnormal reaction of the patient, or of later complication, without mention of misadventure at the time of the procedure
CPT/HCPCS: 36415; 70450; 71046; 74176; 80048; 80053; 81001; 83036; 83605; 83735; 84100; 84484; 85025; 85610; 85730; 87040; 87086; 93005; 94760; 96361; 96365; 96366; 96375; 99284

== ENCOUNTER 2025-01-30 22:21 | Inpatient (IN) | payer MEDICARE ==
[2025-01-30 22:29] LABS: Glucose,Whole Blood 284 mg/dL (70-110)
[2025-01-30 23:04] LABS: Basophils # (A) 0.02 10*3/uL (0.00-0.10); Basophils % (A) 0.2 %; Eosinophils # (A) 0.04 10*3/uL (0.04-0.35); Eosinophils % (A) 0.4 %; HCT 32.5 % (37.2-46.3); HGB 10.9 g/dL (12.0-15.0); Lymphocytes # (A) 1.31 10*3/uL (0.90-5.00); Lymphocytes % (A) 12.0 %; MCH 31.8 pg (27.0-32.0); MCHC 33.5 g/dL (32.0-37.0); MCV 94.8 fL (80.0-97.0); Monocytes # (A) 0.97 10*3/uL (0.20-1.00); Monocytes % (A) 8.9 %; Neutrophils # (A) 8.49 10*3/uL (1.80-7.70); Neutrophils % (A) 77.6 %; RBC 3.43 10*6/uL (4.10-5.20); RDW 14.6 % (11.5-14.5); WBC 10.93 10*3/uL (4.50-10.00)
[2025-01-30] MEDS: ASPIRIN 81 MG PO STA (23:05)
[2025-01-30] MEDS: METOPROLOL TARTRATE 5 MG/5 ML VIAL IVP STA (23:14)
[2025-01-30] MEDS: SODIUM CHLORIDE 0.9% 1,000 ML IV STA (23:15)
[2025-01-30 23:16] LABS: ALT 516 U/L (4-34); African American GFR (CKD) 29 (>60 ml/min/1.73 sqM); Albumin 3.5 g/dL (3.5-5.0); Anion Gap 14 mmol/L; Blood Urea Nitrogen 37 mg/dL (7-17); Calcium 9.8 mg/dL (8.4-10.2); Carbon Dioxide 18 mmol/L (22-30); Chloride 99 mmol/L (98-107); Glucose 239 mg/dL (74-99); Lipase 45 U/L (23-300); Non-African American GFR(CKD) 25 (>60 ml/min/1.73 sqM); Sodium 131 mmol/L (137-145); Total Protein 5.8 g/dL (6.3-8.2)
[2025-01-30 23:18] LABS: AST 644 U/L (14-36); Alkaline Phosphatase 114 U/L (38-126); Magnesium 2.0 mg/dL (1.6-2.3); Potassium 5.7 mmol/L (3.5-5.1)
[2025-01-30] MEDS: DEXTROSE 5% IN WATER 100 ML with AMIODARONE 150 MG IV ONE (23:19)
[2025-01-30 23:20] LABS: INR 1.2 (<1.2); Partial Thromboplastin Time 21.6 sec (22.0-30.0); Prothrombin Time 12.9 sec (10.0-12.5)
[2025-01-31] MEDS: AMIODARONE 360 MG in DEXTROSE 5% IN WATER 200 ML IV ONE (00:18)
--- NOTE | 2025-01-31 00:21 | XR ---
EXAMINATION TYPE: XR chest 1V portable DATE OF EXAM: 01/31/2025 12:14 AM COMPARISON: Chest radiographs from 01/11/2025 TECHNIQUE: XR chest 1V portable Portable AP radiograph of the chest. CLINICAL INDICATION:Female, 74 years old with history of arrhythmia; FINDINGS: Lungs/Pleura: There is no evidence of pleural effusion, focal consolidation, or pneumothorax. Pulmonary vascularity: Unremarkable. Heart/mediastinum: Cardiomediastinal silhouette is enlarged and stable. Aortic valvular stent graft. Single-lead cardiac conduction device overlying the left hemithorax with lead projecting over the ri ght ventricle. Musculoskeletal: No acute osseous pathology. Midline sternotomy wires are noted and stable. Right janeth ulder arthroplasty changes. IMPRESSION: Chronic changes without acute pulmonary process. [facility], , 01/31/2025 12:19 AM
[2025-01-31 00:26] LABS: VBG HCO3 19.0 mmol/L (24-28); VBG PCO2 39.0 mmHg (37-51); VBG PH 7.29 (7.31-7.41)
[2025-01-31 00:34] LABS: Platelet Count 84 10*3/uL (140-440)
[2025-01-31 00:37] LABS: African American GFR (CKD) 30 (>60 ml/min/1.73 sqM); Anion Gap 15 mmol/L; Blood Urea Nitrogen 38 mg/dL (7-17); Calcium 9.7 mg/dL (8.4-10.2); Carbon Dioxide 17 mmol/L (22-30); Chloride 99 mmol/L (98-107); Glucose 244 mg/dL (74-99); Non-African American GFR(CKD) 26 (>60 ml/min/1.73 sqM); Sodium 131 mmol/L (137-145)
[2025-01-31 00:44] LABS: ALT 1128 U/L (4-34)
[2025-01-31 00:45] LABS: NT-Pro-B-Type Natriuretic Pept 20400 pg/mL
[2025-01-31 00:47] LABS: AST 1351 U/L (14-36); Albumin 3.8 g/dL (3.5-5.0); Alkaline Phosphatase 111 U/L (38-126); Potassium 7.4 mmol/L (3.5-5.1); Total Protein 6.4 g/dL (6.3-8.2)
[2025-01-31] MEDS: SODIUM BICARB 8.4% 50 ML SYR (1 MEQ/ML) IV STA ×2 (01:23→01:59)
[2025-01-31 01:26] LABS: African American GFR (CKD) 29 (>60 ml/min/1.73 sqM); Albumin 3.5 g/dL (3.5-5.0); Alkaline Phosphatase 133 U/L (38-126); Anion Gap 13 mmol/L; Blood Urea Nitrogen 37 mg/dL (7-17); Calcium 9.8 mg/dL (8.4-10.2); Carbon Dioxide 18 mmol/L (22-30); Chloride 101 mmol/L (98-107); Glucose 249 mg/dL (74-99); Non-African American GFR(CKD) 25 (>60 ml/min/1.73 sqM); Potassium 5.6 mmol/L (3.5-5.1); Sodium 132 mmol/L (137-145); Total Protein 5.8 g/dL (6.3-8.2)
[2025-01-31 01:51] LABS: ALT 1405 U/L (4-34); AST 1791 U/L (14-36)
[2025-01-31] MEDS: FUROSEMIDE 10 MG/ML 4 ML VIAL IV STA (02:07)
[2025-01-31] MEDS: HEPARIN SODIUM 1,000 UN/ML (10ML VL) IV ONE (02:10)
[2025-01-31] MEDS: HEPARIN SOD,PORK IN 0.45% NACL 25,000 UNIT in 0.45% NACL 1 250ML.BAG IV SCH (02:12)
[2025-01-31] MEDS: SODIUM ZIRCONIUM CYCLOSILICATE 10 GM PACKET PO ONE (02:32)
[2025-01-31] MEDS: CALCIUM GLUCONATE IN NACL 1 GM in SALINE 1 100ML.BAG IVPB ONE (02:47)
--- NOTE | 2025-01-31 03:15 | CT ---
EXAM: CT Abdomen and Pelvis Without Intravenous Contrast CLINICAL HISTORY: elevated LFTs, eval gallbladder/liver. LT NEPHRECTOMY ON SATURDAY TECHNIQUE: Axial computed tomography images of the abdomen and pelvis without intravenous contrast. Coronal and sagittal reconstructions are performed. CTDI is 27.6 mGy and DLP is 1411.8 mGy-cm. This CT exam was performed using one or more of the following dose reduction techniques: automated exposure control, adjustment of the mA and/or kV according to patient size, and/or use of iterative reconstruction technique. COMPARISON: 03/01/2024 FINDINGS: Lung bases: Small to moderate bilateral pleural effusions with compressive atelectasis, more on the left. Heart: Moderate cardiomegaly with pacer lead in place. Mediastinum: Small hiatal hernia. ABDOMEN: Liver: Moderate hepatomegaly. Gallbladder and bile ducts: Gallbladder is underdistended filled with hyperdense sludge and contains a 4 mm stone in the neck. Pancreas: Unremarkable. No ductal dilation. Spleen: Unremarkable. No splenomegaly. Adrenals: Unremarkable. No mass. Kidneys and ureters: Small amount of fluid in left renal fossa, likely related to reported nephrectomy. Stomach and bowel: Unremarkable. No obstruction. No mucosal thickening. PELVIS: Appendix: No findings to suggest acute appendicitis. Bladder: Small amount of stranding surrounding underdistended urinary bladder. No stones. Reproductive: No acute findings. Subperitoneal space: Moderate amount of presacral stranding. ABDOMEN and PELVIS: Intraperitoneal space: Unremarkable. No free air. No significant fluid collection. Bones/joints: Fractures of multiple left lower ribs #10, 9, 8, 7, 6. Many are segmented. L4-S1 posterior fusion hardware and laminectomies. Osteopenia. Moderate degenerative changes. Soft tissues: Moderate amount of subcutaneous gas of left abdominal wall. Mild anasarca. Moderate amount of soft tissue gas of left abdominal/lower chest wall. Vasculature: Unremarkable. No abdominal aortic aneurysm. Lymph nodes: Unremarkable. No enlarged lymph nodes. IMPRESSION: 1. Small to moderate bilateral pleural effusions with compressive atelectasis, more on the left. 2. Fractures of multiple left lower ribs. Many are segmented. Associated soft tissue gas of left abdominal and lower chest wall and subcutaneous soft tissue edema 3. Mild anasarca. 4. Gallbladder is underdistended filled with hyperdense sludge and contains a 4 mm stone in the neck. 5. Small amount of fluid in left renal fossa, likely related to recent nephrectomy. No abscess.
--- NOTE | 2025-01-31 03:17 | ED ---
General Adult HPI - General Chief complaint: Recheck/Abnormal Lab/Rx Stated complaint: high blood sugar Time Seen by Provider: 01/30/25 22:42 Source: patient, family, EMS, RN notes reviewed, old records reviewed Mode of arrival: EMS - History of Present Illness Initial comments: 74-year-old female who presents emergency department for high blood sugar. States she recently had a left-sided nephrectomy performed at another facility last week. Has been home for numerous days. States she has been doing well. Denies any pain, weakness, shortness of breath. States she did fall a few weeks ago and injured her left ribs. She has been sore since there. CT imaging was obtained of her brain at the other facility as she did fall while she was there as well and that was negative. Denies any chest pain or shortness of breath. Does have a history of CAD, chest pain, heart failure with a pacemaker defibrillator. Patient has a history of diabetes as well. States her sugars have been high but denies any nausea or vomiting or diarrhea or sick contacts. Denies any other acute complaints at this time. Presents for further evaluation at this time. EKG in triage found to show patient was in ventricular tachycardia and she was placed in trauma bay 1. - Related Data Home Medications Medication Instructions Recorded Confirmed Famotidine [Pepcid] 20 mg PO HS 06/20/16 01/05/25 Montelukast [Singulair] 10 mg PO HS 06/20/16 01/05/25 allopurinoL [Zyloprim] 300 mg PO HS 06/20/16 01/05/25 Evolocumab [Repatha Syringe] 140 mg SQ Q14D 10/05/19 01/05/25 Insulin Glargine,Hum.rec.anlog 10 units SQ BID 02/21/23 01/05/25 [Lantus Solostar Pen] Insulin Lispro [humaLOG Kwikpen] See Protocol SQ TID-W/MEALS 02/21/23 01/05/25 Ranolazine [Ranexa] 500 mg PO BID 02/21/23 01/05/25 Nystatin 100,000 Unit/gm Powd 1 applic TOPICAL BID 10/18/24 01/05/25 [Mycostatin Powder] Acetaminophen Tab [Tylenol] 1,000 mg PO BID 01/05/25 01/05/25 Acetaminophen Tab [Tylenol] 1,000 mg PO Q6HR PRN 01/05/25 01/05/25 Isosorbide Mononitrate ER [Imdur] 60 mg PO BID 01/05/25 01/05/25 Nystatin 100,000Unit/gm Cream 1 applic TOPICAL BID 01/05/25 01/05/25 [Mycostatin Cream] Previous Rx's Medication Instructions Recorded HYDROcodone/APAP 5-325MG [[place] 1 each PO Q6HR PRN #12 tab 01/15/25 5-325] Linezolid [Zyvox] 600 mg PO Q12H 12 Days #24 tab 01/15/25 carvediloL [Coreg] 3.125 mg PO BID-W/MEALS 30 Days 01/15/25 #60 tab polyethylene glycoL 3350 [Miralax] 17 gm PO HS #30 packet 01/15/25 Allergies Allergy/AdvReac Type Severity Reaction Status Date / Time amoxicillin [From Augmentin] Allergy Anaphylaxis Verified 01/30/25 22:28 /rash/hives cefprozil [From Cefzil] Allergy Anaphylaxis Verified 01/30/25 22:28 /rash/hives clavulanic acid Allergy Anaphylaxis Verified 01/30/25 22:28 [From Augmentin] /rash/hives sulfamethoxazole Allergy Anaphylaxis Verified 01/30/25 22:28 [From Bactrim] /rash/hives trimethoprim [From Bactrim] Allergy Anaphylaxis Verified 01/30/25 22:28 /rash/hives Review of Systems ROS Statement: Those systems with pertinent positive or pertinent negative responses have been documented in the HPI. Review of Systems: CONST: Denies fever EYES: Denies blurry vision ENT: Denies nasal congestion C/V: Denies Chest pain RESP: Denies shortness of breath GI: Denies abdominal pain : Denies dysuria SKIN: Denies rash. MSK: Denies joint pain. NEURO: Denies headache ROS Other: All systems not noted in ROS Statement are negative. Past Medical History Past Medical History: Asthma, Coronary Artery Disease (CAD), Chest Pain / Angina, Heart Failure, Diabetes Mellitus, GERD/Reflux, Hyperlipidemia, Hypertension, Myocardial Infarction (AR), Osteoarthritis (OA), Pneumonia, Renal Disease, Syncope Additional Past Medical History / Comment(s): AR 1997, 2003, 2008, CARDIAC ARREST 2017,GOUT, SPINAL STENOSIS, BRONCHITIS, CONSTIPATION, HX OF DIZZINESS & FALLS, AORTIC STENOSIS, KIDNEY FAILURE STAGE 3-B, PACER/AICD, Fatigue, very SOB w/exertion recently. Aortic Valve Replacement Dec, 2019. 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 Date of Last Stent Placement:: UNKNOWN Type of Cardiac Device: AICD Device Placement Date:: 10-05-16 chest [place] Past Psychological History: Anxiety, Depression Smoking Status: Never smoker Past Alcohol Use History: Occasional Past Drug Use History: None Reported - Past Family History Mother Family Medical History: No Reported History Additional Family Medical History / Comment(s): . General Exam - General Exam Comments Initial Comments: General: Appears in no acute distress. HEAD: Normal with no signs of head trauma. EYES: EOMI ENT: Hearing grossly intact, normal oropharynx. RESPIRATORY: Clear breath sounds bilaterally. No wheezes, rales, or rhonchi. C/V: Tachycardia. S1 and S2 auscultated, general peripheral edema, peripheral pulses 2+ and intact throughout ABD: Abd is soft, nontender, nondistended EXT: Normal range of motion, no obvious deformity SKIN: Left-sided surgical incision within acceptable limits. NEURO: Alert and orient x 4. No focal deficits. Course Vital Signs 01/30/25 01/30/25 01/30/25 22:24 22:45 22:55 Temperature 97.9 F Pulse Rate 147 H 147 H 149 H Respiratory 18 14 14 Rate Blood Pressure 98/66 121/84 101/60 O2 Sat by Pulse 98 97 97 Oximetry 01/30/25 01/30/25 01/30/25 23:05 23:10 23:25 Temperature Pulse Rate 149 H 149 H 80 Respiratory 14 14 16 Rate Blood Pressure 93/73 67/48 116/68 O2 Sat by Pulse 97 97 97 Oximetry 01/31/25 01/31/25 01/31/25 00:00 01:00 03:00 Temperature Pulse Rate 79 76 71 Respiratory 16 16 18 Rate Blood Pressure 118/56 136/84 141/89 O2 Sat by Pulse 97 97 97 Oximetry 01/31/25 01/31/25 06:00 07:47 Temperature Pulse Rate 72 75 Respiratory 16 18 Rate Blood Pressure 144/100 147/96 O2 Sat by Pulse 98 96 Oximetry Medical Decision Making - Medical Decision Making Was pt. sent in by a medical professional or institution (, PA, LAMINATION ASSEMBLER, urgent care, hospital, or care home...) When possible be specific @ -No Did you speak to anyone other than the patient for history (EMS, parent, family, police, friend...)? What history was obtained from this source @ -Patient's daughter who assists with patient's past medical history. Did you review nursing and triage notes (agree or disagree)? Why? @ -I reviewed and agree with nursing and triage notes Were old charts reviewed (outside hosp., previous admission, EMS record, old EKG, old radiological studies, urgent care reports/EKG's, care home records)? Report findings @ -Reviewed old EKG from Differential Diagnosis (chest pain, altered mental status, abdominal pain women, abdominal pain men, vaginal bleeding, weakness, fever, dyspnea, syncope, headache, dizziness, GI bleed, back pain, seizure, CVA, palpatations, mental health, musculoskeletal)? @ -Ventricular tachycardia, hyperkalemia, electrolyte abnormality. EKG interpreted by me (3pts min.). @ -As above X-rays interpreted by me (1pt min.). @ -Chest x-ray reveals no obvious acute cardiopulmonary process. CT interpreted by me (1pt min.). @ -CT abdomen pelvis obtained without contrast which shows bilateral pleural effusions, fractures of multiple lower left ribs likely secondary to prior fall. Gallbladder shows a known gallbladder sludge with gallstone. No evidence of cholecystitis. Small amount of fluid in the left renal fossa likely related to the recent nephrectomy. U/S interpreted by me (1pt. min.). @ -None done What testing was considered but not performed or refused? (CT, X-rays, U/S, labs)? Why? @ -None What meds were considered but not given or refused? Why? @ -None Did you discuss the management of the patient with other professionals (professionals i.e. , PA, LAMINATION ASSEMBLER, lab, RT, psych nurse, psychiatric social worker, cost and risk analysis manager, teacher, hospital chief executive officer, telehealth case manager)? Give summary @ -Discussed the EKG and reviewed with Dr. Eugene. Believes this is either ventricular tachycardia or hyperkalemic changes. Discussed flecainide toxicity but patient is not on flecainide. Does not believe it is atrial fibrillation. Recommended cardioversion and if patient became unstable or treating the hyperkalemia. Discussed with admitting provider, Dr. Velez who accepted the admission. Was smoking cessation discussed for >3mins.? @ -No Was critical care preformed (if so, how long)? @ -Yes, 53 minutes Were there social determinants of health that impacted care today? How? (Homelessness, low income, unemployed, alcoholism, drug addiction, transportation, low edu. Level, literacy, decrease access to med. care, half-way, rehab)? @ -No Was there de-escalation of care discussed even if they declined (Discuss DNR or withdrawal of care, Hospice)? DNR status @ -No What co-morbidities impacted this encounter? (DM, HTN, Smoking, COPD, CAD, Cancer, CVA, ARF, Chemo, Hep., AIDS, mental health diagnosis, sleep apnea, morb id obesity)? @ -Recent nephrectomy, CHF, CAD with AICD Was patient admitted / discharged? Hospital course, mention meds given and route, prescriptions, significant lab abnormalities, going to OR and other pertinent info. @ -Patient presents emergency department complaining of high blood sugars but while in triage found to have findings on EKG concerning for ventricular tachycardia. Vital signs other than the tachycardia are within acceptable limits. Blood pressures are within acceptable limits at this time. She is not on flecainide. Discussed the EKG and reviewed with Dr. Eugene. Believes this is either ventricular tachycardia or hyperkalemic changes. Discussed flecainide toxicity but patient is not on flecainide. Does not believe it is atrial fibrillation. Recommended cardioversion and if patient became unstable or treating the hyperkalemia. Patient was initially stable and was placed on amiodarone drip. However shortly after this, patient's blood pressures decreased to systolics in the 50s. At this time patient was successfully cardioverted with 100 J. Converted to normal sinus rhythm. Blood pressures improved. Remains asymptomatic. Patient's laboratory studies returned initially remarkable for a mild hyperkalemia 5.7 however this was hemolyzed. Some nonspecific changes including elevated LFTs as well. Troponin elevated to 0.922. Acetone negative. No sig nificant anion gap. Repeat CMP due to the for specimen being hemolyzed returned also hemolyzed and therefore is not reliable. Third specimen sent showed minimal hyperkalemia 5.6. Baseline CKD. Elevated LFTs. At this time, patient is resting comfortably with no acute complaints still. Does not appear to be in DKA. We obtain abdominal CT due to the LFT findings. This returned remarkable for incidental finding of left rib fractures from a fall a few weeks ago. Patient has mild anasarca. All still present but no cholecystitis. No other obvious acute findings other than some small to mod erate bilateral pleural effusions. Due to the patient's mild hyperkalemia, she did receive a hyperkalemia cocktail. Due to the patient's elevated troponin, patient did receive 324 mg of aspirin and was started on heparin for an NSTEMI. Cardiology will be consulted. Patient will be admitted to 3 S. Patient was in agreement this plan. I spoke with the admitting provider, Dr. Velez who accepted the admission. Echo ordered. Undiagnosed new problem with uncertain prognosis? @ -No Drug Therapy requiring intensive monitoring for toxicity (Heparin, Nitro, Insulin, Cardizem)? @ -Heparin Were any procedures done? @ -Synchronized cardioversion Diagnosis/symptom? @ -Ventricular tachycardia status post cardioversion, hyperglycemia, NSTEMI, hyperkalemia, CKD, elevated LFTs Acute, or Chronic, or Acute on Chronic? @ -Acute Uncomplicated (without systemic symptoms) or Complicated (systemic symptoms)? @ -Complicated Side effects of treatment? @ -No Exacerbation, Progression, or Severe Exacerbation? @ -No Poses a threat to life or bodily function? How? (Chest pain, [place], AR, pneumonia, PE, COPD, DKA, ARF, appy, cholecystitis, CVA, Diverticulitis, Homicidal, Suicidal, threat to staff... and all critical care pts) @ -Yes - Lab Data Result diagrams: 01/30/25 22:58 01/31/25 01:01 Lab Results 01/30/25 01/30/25 01/30/25 Range/Units 22:27 22:58 22:58 WBC 10.93 H (4.50-10.00) 10*3/uL RBC 3.43 L (4.10-5.20) 10*6/uL Hgb 10.9 L (12.0-15.0) g/dL Hct 32.5 L (37.2-46.3) % MCV 94.8 (80.0-97.0) fL MCH 31.8 (27.0-32.0) pg MCHC 33.5 (32.0-37.0) g/dL Plt Count 84 L (140-440) 10*3/uL MPV 11.8 (9.5-12.2) fL Immature Gran % (Auto) 0.9 % Neutrophils % 77.6 % Lymphocytes % 12.0 % Monocytes % 8.9 % Eosinophils % 0.4 % Basophils % 0.2 % Immature Gran # 0.10 H (0.00-0.04) 10*3/uL Neutrophils # 8.49 H (1.80-7.70) 10*3/uL Lymphocytes # 1.31 (0.90-5.00) 10*3/uL Monocytes # 0.97 (0.20-1.00) 10*3/uL Eosinophils # 0.04 (0.04-0.35) 10*3/uL Basophils # 0.02 (0.00-0.10) 10*3/uL PT 12.9 H (10.0-12.5) sec INR 1.2 H (<1.2) APTT 21.6 L (22.0-30.0) sec VBG pH (7.31-7.41) VBG pCO2 (37-51) mmHg VBG HCO3 (24-28) mmol/L Sodium (137-145) mmol/L Potassium (3.5-5.1) mmol/L Chloride (98-107) mmol/L Carbon Dioxide (22-30) mmol/L Anion Gap mmol/L BUN (7-17) mg/dL Creatinine (0.52-1.04) mg/dL Est GFR (CKD-EPI)AfAm (>60 ml/min/1.73 sqM) Est GFR (CKD-EPI)NonAf (>60 ml/min/1.73 sqM) Glucose (74-99) mg/dL POC Glucose (mg/dL) 284 H (70-110) mg/dL POC Glu Route Sales Representative ID Paty Briscoe Calcium (8.4-10.2) mg/dL Magnesium (1.6-2.3) mg/dL Total Bilirubin (0.2-1.3) mg/dL AST (14-36) U/L ALT (4-34) U/L Alkaline Phosphatase (38-126) U/L Troponin I (0.000-0.034) ng/mL NT-Pro-B Natriuret Pep pg/mL Total Protein (6.3-8.2) g/dL Albumin (3.5-5.0) g/dL Lipase (23-300) U/L Acetone, Qual (Negative) 01/30/25 01/30/25 01/31/25 Range/Units 22:58 22:58 00:12 WBC (4.50-10.00) 10*3/uL RBC (4.10-5.20) 10*6/uL Hgb (12.0-15.0) g/dL Hct (37.2-46.3) % MCV (80.0-97.0) fL MCH (27.0-32.0) pg MCHC (32.0-37.0) g/dL Plt Count (140-440) 10*3/uL MPV (9.5-12.2) fL Immature Gran % (Auto) % Neutrophils % % Lymphocytes % % Monocytes % % Eosinophils % % Basophils % % Immature Gran # (0.00-0.04) 10*3/uL Neutrophils # (1.80-7.70) 10*3/uL Lymphocytes # (0.90-5.00) 10*3/uL Monocytes # (0.20-1.00) 10*3/uL Eosinophils # (0.04-0.35) 10*3/uL Basophils # (0.00-0.10) 10*3/uL PT (10.0-12.5) sec INR (<1.2) APTT (22.0-30.0) sec VBG pH (7.31-7.41) VBG pCO2 (37-51) mmHg VBG HCO3 (24-28) mmol/L Sodium 131 L 131 L (137-145) mmol/L Potassium 5.7 H 7.4 H* (3.5-5.1) mmol/L Chloride 99 99 (98-107) mmol/L Carbon Dioxide 18 L 17 L (22-30) mmol/L Anion Gap 14 15 mmol/L BUN 37 H 38 H (7-17) mg/dL Creatinine 1.92 H 1.88 H (0.52-1.04) mg/dL Est GFR (CKD-EPI)AfAm 29 30 (>60 ml/min/1.73 sqM) Est GFR (CKD-EPI)NonAf 25 26 (>60 ml/min/1.73 sqM) Glucose 239 H 244 H (74-99) mg/dL POC Glucose (mg/dL) (70-110) mg/dL POC Glu Route Sales Representative ID Calcium 9.8 9.7 (8.4-10.2) mg/dL Magnesium 2.0 (1.6-2.3) mg/dL Total Bilirubin 1.4 H 1.7 H (0.2-1.3) mg/dL AST 644 H 1351 H (14-36) U/L ALT 516 H 1128 H (4-34) U/L Alkaline Phosphatase 114 111 (38-126) U/L Troponin I 0.922 H* (0.000-0.034) ng/mL NT-Pro-B Natriuret Pep 13592 pg/mL Total Protein 5.8 L 6.4 (6.3-8.2) g/dL Albumin 3.5 3.8 (3.5-5.0) g/dL Lipase 45 (23-300) U/L Acetone, Qual Negative (Negative) 01/31/25 01/31/25 Range/Units 00:14 01:01 WBC (4.50-10.00) 10*3/uL RBC (4.10-5.20) 10*6/uL Hgb (12.0-15.0) g/dL Hct (37.2-46.3) % MCV (80.0-97.0) fL MCH (27.0-32.0) pg MCHC (32.0-37.0) g/dL Plt Count (140-440) 10*3/uL MPV (9.5-12.2) fL Immature Gran % (Auto) % Neutrophils % % Lymphocytes % % Monocytes % % Eosinophils % % Basophils % % Immature Gran # (0.00-0.04) 10*3/uL Neutrophils # (1.80-7.70) 10*3/uL Lymphocytes # (0.90-5.00) 10*3/uL Monocytes # (0.20-1.00) 10*3/uL Eosinophils # (0.04-0.35) 10*3/uL Basophils # (0.00-0.10) 10*3/uL PT (10.0-12.5) sec INR (<1.2) APTT (22.0-30.0) sec VBG pH 7.29 L (7.31-7.41) VBG pCO2 39 (37-51) mmHg VBG HCO3 19 L (24-28) mmol/L Sodium 132 L (137-145) mmol/L Potassium 5.6 H (3.5-5.1) mmol/L Chloride 101 (98-107) mmol/L Carbon Dioxide 18 L (22-30) mmol/L Anion Gap 13 mmol/L BUN 37 H (7-17) mg/dL Creatinine 1.94 H (0.52-1.04) mg/dL Est GFR (CKD-EPI)AfAm 29 (>60 ml/min/1.73 sqM) Est GFR (CKD-EPI)NonAf 25 (>60 ml/min/1.73 sqM) Glucose 249 H (74-99) mg/dL POC Glucose (mg/dL) (70-110) mg/dL POC Glu Route Sales Representative ID Calcium 9.8 (8.4-10.2) mg/dL Magnesium (1.6-2.3) mg/dL Total Bilirubin 1.2 (0.2-1.3) mg/dL AST 1791 H (14-36) U/L ALT 1405 H (4-34) U/L Alkaline Phosphatase 133 H (38-126) U/L Troponin I (0.000-0.034) ng/mL NT-Pro-B Natriuret Pep pg/mL Total Protein 5.8 L (6.3-8.2) g/dL Albumin 3.5 (3.5-5.0) g/dL Lipase (23-300) U/L Acetone, Qual (Negative) - EKG Data -: EKG Interpreted by Me EKG Comments: 12-lead Electrocardiogram Interpretation Note EKG was reviewed and interpreted by myself. 12-lead ECG performed at 2235 is interpreted by me as revealing ventricular tachycardia versus wide QRS complexes secondary to hyperkalemia at a rate of 148 beats per minute. Indeterminate axis. QRS durations 171 ms, QTC is 465 ms.. There were no ST or T wave abnormalities to suggest myocardial ischemia or injury. R wave progression across the precordium was satisfactory. By my interpretation this EKG is non- diagnostic for acute ischemia. Reviewed this EKG with Dr. Eugene who agreed it was likely ventricular tachycardia versus the hyperkalemic changes rather than atrial fibrillation. 12-lead Electrocardiogram Interpretation Note EKG was reviewed and interpreted by myself. 12-lead ECG performed at 2322 is interpreted by me as revealing normal sinus rhythm at a rate of 80 beats per minute. [place] is normal. CO interval is 173 ms, QRS durations 90 ms, QTc is 427 ms.. There were no ST or T wave abnormalities to suggest myocardial ischemia or injury. R wave progression across the precordium was satisfactory. By my interpretation this EKG is non-diagnostic for acute ischemia. Critical Care Time Critical Care Time: Yes Total Critical Care Time: 53 Disposition Clinical Impression: NSTEMI (non-ST elevated myocardial infarction), Ventricular tachycardia, Hyperkalemia, CKD (chronic kidney disease), Elevated LFTs Disposition: ADMITTED IP TO THIS [facility] Condition: Serious Time of Disposition: 04:00
[2025-01-31] MEDS ORDERED: NALOXONE 0.4 MG/ML 1 ML VIAL IV PRN (05:33)
[2025-01-31] MEDS: AMIODARONE 450 MG in DEXTROSE 5% IN WATER 250 ML IV SCH (06:22)
[2025-01-31] MEDS: ONDANSETRON 4 MG/2 ML VIAL IVP PRN (06:48)
--- NOTE | 2025-01-31 11:32 | P.CRDCN ---
History of Present Illness Consult date: 01/31/25 History of present illness: The patient is a 74-year-old female who presented to the emergency room with elevated glucose level. Patient recently underwent nephrectomy for hydronephrosis in early January. On arrival to the emergency room, initial EKG showed sinus rhythm, however patient went into ventricular tachycardia. Initial potassium level had come back elevated, however 2 specimens were hemolyzed. After consultation with Dr. Eugene, patient became hypotensive and therefore required synchronized cardioversion, to restore sinus rhythm. No need for vasopressors thereafter. Patient does have AICD for history of ischemic cardiomyopathy, however programming is set above 180 bpm. Ventricular tachycardia today was 150 bpm. DIAGNOSTICS: Initial EKG showed sinus rhythm Second EKG showed wide-complex tachycardia consistent with ventricular tachycardia Chest x-ray chronic changes without acute pulmonary process CT scan of the abdomen showed small to moderate bilateral pleural effusion and fractures of multiple left lower ribs. Lab data: WBC 10.9, hemoglobin 10.9, hematocrit 32.5, platelet 84, sodium 132, potassium 5.6, BUN 37, creatinine 1.94, magnesium 1.2, AST 1791, ALT 1405, BNP 20,400, troponin 0.92 REVIEW OF SYSTEMS: No fever or chills. No cough or expectoration. No diaphoresis. Patient denies headache, dizziness, blurred vision, double vision. Patient denies any stomach discomfort. No nausea, vomiting. No hematochezia. No hematemesis. Denies any black stools or blood in his stools. Denies dysuria or hematuria. No muscle weakness or numbness. No current chest pain or pressure. No difficulty breathing PHYSICAL EXAMINATION: This is a 74-year-old female in no apparent distress at the time of my examination. HEENT: Head is atraumatic, normocephalic. Pupils are equal, round. Sclerae anicteric. Conjunctivae are clear. Mucous membranes of the mouth are moist. Neck is supple. There is no jugular venous distention. No carotid bruit is heard. CHEST EXAMINATION: Lungs are clear to auscultation. No chest wall tenderness is noted on palpation or with deep breathing. HEART EXAMINATION: Heart regular rate and rhythm. S1, S2 heard. No murmurs, gallops or rub. ABDOMEN: Soft, nontender. Bowel sounds are heard. No organomegaly noted. EXTREMITIES: 2+ peripheral pulses with no evidence of peripheral edema and no calf tenderness noted. NEUROLOGIC EXAMINATION: Patient is awake, alert and oriented x3. FINAL ASSESSMENT AND PLAN: Ventricular tachycardia Congestive heart failure Ischemic cardiomyopathy Status post AICD History of multivessel coronary artery disease Chronic kidney disease Status post nephrectomy PLAN: Transition to oral amiodarone Continue heparin overnight and discontinue tomorrow Resume beta-blanca No plans for coronary angiogram at this time Further recommendations be based upon clinical course I am dictating on behalf of Dr Marques Eugene's history/physical and assessment/plan. Past Medical History Past Medical History: Asthma, Coronary Artery Disease (CAD), Chest Pain / Angina, Heart Failure, Diabetes Mellitus, GERD/Reflux, Hyperlipidemia, Hypertension, Myocardial Infarction ([place]), Osteoarthritis (OA), Pneumonia, Renal Disease, Syncope Additional Past Medical History / Comment(s): [place] 1997, 2003, 2007, CARDIAC ARREST 2016,GOUT, SPINAL STENOSIS, BRONCHITIS, CONSTIPATION, HX OF DIZZINESS & FALLS, AORTIC STENOSIS, KIDNEY FAILURE STAGE 3-B, PACER/AICD, Fatigue, very SOB w/exertion recently. Aortic Valve Replacement Dec, 2019. 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 Date of Last Stent Placement:: UNKNOWN Type of Cardiac Device: AICD Device Placement Date:: 10-05-16 lt chest [employer] Past Psychological History: Anxiety, Depression Smoking Status: Never smoker Past Alcohol Use History: Occasional Past Drug Use History: None Reported - Past Family History Mother Family Medical History: No Reported History Additional Family Medical History / Comment(s): . Medications and Allergies Home Medications Medication Instructions Recorded Confirmed Type Famotidine [Pepcid] 20 mg PO HS 06/20/16 01/31/25 History Montelukast [Singulair] 10 mg PO HS 06/20/16 01/31/25 History allopurinoL [Zyloprim] 300 mg PO HS 06/20/16 01/31/25 History Evolocumab [Repatha Syringe] 140 mg SQ Q14D 10/05/19 01/31/25 History Insulin Glargine,Hum.rec.anlog 10 units SQ BID 02/21/23 01/31/25 History [Lantus Solostar Pen] Insulin Lispro [humaLOG Kwikpen] See Protocol SQ TID-W/MEALS 02/21/23 01/31/25 History Ranolazine [Ranexa] 500 mg PO BID 02/21/23 01/31/25 History Nystatin 100,000 Unit/gm Powd 1 applic TOPICAL BID 10/18/24 01/31/25 History [Mycostatin Powder] Acetaminophen Tab [Tylenol] 1,000 mg PO BID 01/05/25 01/31/25 History Acetaminophen Tab [Tylenol] 1,000 mg PO Q6HR PRN 01/05/25 01/31/25 History Isosorbide Mononitrate ER [Imdur] 60 mg PO BID 01/05/25 01/31/25 History Nystatin 100,000Unit/gm Cream 1 applic TOPICAL BID 01/05/25 01/31/25 History [Mycostatin Cream] Linezolid [Zyvox] 600 mg PO Q12H 12 Days #24 tab 01/15/25 01/31/25 Rx carvediloL [Coreg] 3.125 mg PO BID-W/MEALS 30 Days 01/15/25 01/31/25 Rx #60 tab polyethylene glycoL 3350 [Miralax] 17 gm PO HS #30 packet 01/15/25 01/31/25 Rx FLUoxetine HCL [PROzac] 20 mg PO DAILY 01/31/25 01/31/25 History Furosemide [Lasix] 20 mg PO DAILY 01/31/25 01/31/25 History HYDROcodone/APAP 5-325MG [[place] 1 tab PO Q6HR PRN 01/31/25 01/31/25 History 5-325] Lidocaine 5% Patch [Lidoderm] 1 patch TOPICAL DAILY 01/31/25 01/31/25 History Potassium Chloride 10 meq PO DAILY 01/31/25 01/31/25 History Allergies Allergy/AdvReac Type Severity Reaction Status Date / Time amoxicillin [From Augmentin] Allergy Anaphylaxis Verified 01/31/25 10:33 /rash/hives cefprozil [From Cefzil] Allergy Anaphylaxis Verified 01/31/25 10:33 /rash/hives clavulanic acid Allergy Anaphylaxis Verified 01/31/25 10:33 [From Augmentin] /rash/hives sulfamethoxazole Allergy Anaphylaxis Verified 01/31/25 10:33 [From Bactrim] /rash/hives trimethoprim [From Bactrim] Allergy Anaphylaxis Verified 01/31/25 10:33 /rash/hives Physical Exam Vitals: Vital Signs Temp Pulse Resp BP Pulse Ox 01/31/25 08:40 76 18 96 01/31/25 07:47 75 18 147/96 96 01/31/25 06:00 72 16 144/100 98 01/31/25 03:00 71 18 141/89 97 01/31/25 01:00 76 16 136/84 97 01/31/25 00:00 79 16 118/56 97 01/30/25 23:25 80 16 116/68 97 01/30/25 23:10 149 H 14 67/48 97 01/30/25 23:05 149 H 14 93/73 97 01/30/25 22:55 149 H 14 101/60 97 01/30/25 22:45 147 H 14 121/84 97 01/30/25 22:24 97.9 F 147 H 18 98/66 98 Intake and Output 01/30/25 01/31/25 01/31/25 22:59 06:59 14:59 Other: Weight 90.718 kg 90.718 kg Results 01/30/25 22:58 01/31/25 01:01 Cardiac Enzymes 01/30/25 01/30/25 01/31/25 Range/Units 22:58 22:58 00:12 AST 644 H 1351 H (14-36) U/L Troponin I 0.922 H* (0.000-0.034) ng/mL 01/31/25 Range/Units 01:01 AST 1791 H (14-36) U/L Troponin I (0.000-0.034) ng/mL Coagulation 01/30/25 Range/Units 22:58 PT 12.9 H (10.0-12.5) sec APTT 21.6 L (22.0-30.0) sec CBC 01/30/25 Range/Units 22:58 WBC 10.93 H (4.50-10.00) 10*3/uL RBC 3.43 L (4.10-5.20) 10*6/uL Hgb 10.9 L (12.0-15.0) g/dL Hct 32.5 L (37.2-46.3) % Plt Count 84 L (140-440) 10*3/uL Comprehensive Metabolic Panel 01/30/25 01/31/25 01/31/25 Range/Units 22:58 00:12 01:01 Sodium 131 L 131 L 132 L (137-145) mmol/L Potassium 5.7 H 7.4 H* 5.6 H (3.5-5.1) mmol/L Chloride 99 99 101 (98-107) mmol/L Carbon Dioxide 18 L 17 L 18 L (22-30) mmol/L BUN 37 H 38 H 37 H (7-17) mg/dL Creatinine 1.92 H 1.88 H 1.94 H (0.52-1.04) mg/dL Glucose 239 H 244 H 249 H (74-99) mg/dL Calcium 9.8 9.7 9.8 (8.4-10.2) mg/dL AST 644 H 1351 H 1791 H (14-36) U/L ALT 516 H 1128 H 1405 H (4-34) U/L Alkaline Phosphatase 114 111 133 H (38-126) U/L Total Protein 5.8 L 6.4 5.8 L (6.3-8.2) g/dL Albumin 3.5 3.8 3.5 (3.5-5.0) g/dL Current Medications Generic Name Dose Route Start Last Admin Trade Name Freq PRN Reason Stop Dose Admin Amiodarone HCl 200 mg 02/01/25 09:00 Amiodarone 200 Mg Tab PO BID CORIE Carvedilol 3.125 mg 01/31/25 08:45 Carvedilol 3.125 Mg Tab PO BID-W/MEALS CORIE Heparin Sodium (Porcine) 0 unit 01/30/25 23:49 Heparin Sodium 1,000 Un/Ml (10ml Vl) IV PER PROTOCOL PRN Low PTT Protocol Amiodarone HCl 450 mg/ 250 mls @ 16.667 mls/hr 01/31/25 06:00 01/31/25 06:22 Dextrose/Water IV 01/31/25 23:59 0.5 mg/min .Q15H CORIE 16.667 mls/hr Administration Protocol 0.5 MG/MIN Heparin Sodium/Sodium Chloride 250 mls @ 9.979 mls/hr 01/30/25 23:45 01/31/25 02:12 25,000 unit/ Sodium Chloride IV 11 units/kg/hr .Q24H CORIE 9.979 mls/hr Administration Protocol 11 UNITS/KG/HR Naloxone HCl 0.2 mg 01/31/25 05:33 Naloxone 0.4 Mg/Ml 1 Ml Vial IV Q2M PRN Opioid Reversal Ondansetron HCl 4 mg 01/31/25 05:33 01/31/25 06:48 Ondansetron 4 Mg/2 Ml Vial IVP 4 mg Q8HR PRN Administration Nausea And Vomiting Intake and Output 01/30/25 01/31/25 01/31/25 22:59 06:59 14:59 Other: Weight 90.718 kg 90.718 kg Patient Weight 02/01/25 06:59 Weight 90.718 kg 01/30/25 22:58 01/31/25 01:01
[2025-01-31 11:57] LABS: Basophils # (A) 0.04 10*3/uL (0.00-0.10); Basophils % (A) 0.3 %; Eosinophils # (A) 0.05 10*3/uL (0.04-0.35); Eosinophils % (A) 0.4 %; HCT 32.0 % (37.2-46.3); HGB 11.1 g/dL (12.0-15.0); Lymphocytes # (A) 1.79 10*3/uL (0.90-5.00); Lymphocytes % (A) 14.6 %; MCH 31.8 pg (27.0-32.0); MCHC 34.7 g/dL (32.0-37.0); MCV 91.7 fL (80.0-97.0); Monocytes # (A) 1.49 10*3/uL (0.20-1.00); Monocytes % (A) 12.2 %; Neutrophils # (A) 8.67 10*3/uL (1.80-7.70); Neutrophils % (A) 71.0 %; RBC 3.49 10*6/uL (4.10-5.20); RDW 14.3 % (11.5-14.5); WBC 12.22 10*3/uL (4.50-10.00)
--- NOTE | 2025-01-31 12:25 | P.NPCON ---
History of Present Illness - Reason for Consult chronic renal failure - History of Present Illness Patient is a 74-year-old female with history of type 2 diabetes, coronary artery disease, CKD stage IIIb with baseline creatinine about 1.7 to 2 mg/dL. Patient has a history of chronic left hydronephrosis which needed a left nephrostomy tube. She had also developed UTI during her last admission about 4 weeks ago. Very poor function noted on the left kidney on nuclear scan. Patient was scheduled for left nephrectomy which was performed on 01/26/2025 at [facility]. Patient has been doing fairly well after surgery but recently noticed significantly elevated blood sugars and therefore came into the hospital. She was noted to have a potassium of 5.7 with blood sugar at 289. Repeat potassium was 7.4 but this was hemolyzed. Labs from this morning showed potassium of 5.6. Serum creatinine has been fairly stable at about 1.8 to 1.9 mg/dL. Patient has been voiding. Not on KYLEE inhibitors or NSAIDs. Patient was maintained on Zyvox. Previous urine culture on 01/07/2025 showed corynebacterium striatum After admission to the hospital patient mentioned to Leyla clarke and was shocked. Currently maintained on amiodarone drip. History of ischemic cardiomyopathy Past Medical History Past Medical History: Asthma, Coronary Artery Disease (CAD), Chest Pain / A ngina, Heart Failure, Diabetes Mellitus, GERD/Reflux, Hyperlipidemia, Hypertension, Myocardial Infarction ([place]), Osteoarthritis (OA), Pneumonia, Renal Disease, Syncope Additional Past Medical History / Comment(s): [place] 1997, 2004, 2008, CARDIAC ARREST 2016,GOUT, SPINAL STENOSIS, BRONCHITIS, CONSTIPATION, HX OF DIZZINESS & FALLS, AORTIC STENOSIS, KIDNEY FAILURE STAGE 3-B, PACER/AICD, Fatigue, very SOB w/exertion recently. Aortic Valve Replacement Dec, 2019. 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 Date of Last Stent Placement:: UNKNOWN Type of Cardiac Device: AICD Device Placement Date:: 10-05-16 chest [employer] Past Psychological History: Anxiety, Depression Smoking Status: Never smoker Past Alcohol Use History: Occasional Past Drug Use History: None Reported - Past Family History Mother Family Medical History: No Reported History Additional Family Medical History / Comment(s): . Medications and Allergies Home Medications Medication Instructions Recorded Confirmed Type Famotidine [Pepcid] 20 mg PO HS 06/20/16 01/31/25 History Montelukast [Singulair] 10 mg PO HS 06/20/16 01/31/25 History allopurinoL [Zyloprim] 300 mg PO HS 06/20/16 01/31/25 History Evolocumab [Repatha Syringe] 140 mg SQ Q14D 10/05/19 01/31/25 History Insulin Glargine,Hum.rec.anlog 10 units SQ BID 02/21/23 01/31/25 History [Lantus Solostar Pen] Insulin Lispro [humaLOG Kwikpen] See Protocol SQ TID-W/MEALS 02/21/23 01/31/25 History Ranolazine [Ranexa] 500 mg PO BID 02/21/23 01/31/25 History Nystatin 100,000 Unit/gm Powd 1 applic TOPICAL BID 10/18/24 01/31/25 History [Mycostatin Powder] Acetaminophen Tab [Tylenol] 1,000 mg PO BID 01/05/25 01/31/25 History Acetaminophen Tab [Tylenol] 1,000 mg PO Q6HR PRN 01/05/25 01/31/25 History Isosorbide Mononitrate ER [Imdur] 60 mg PO BID 01/05/25 01/31/25 History Nystatin 100,000Unit/gm Cream 1 applic TOPICAL BID 01/05/25 01/31/25 History [Mycostatin Cream] Linezolid [Zyvox] 600 mg PO Q12H 12 Days #24 tab 01/15/25 01/31/25 Rx carvediloL [Coreg] 3.125 mg PO BID-W/MEALS 30 Days 01/15/25 01/31/25 Rx #60 tab polyethylene glycoL 3350 [Miralax] 17 gm PO HS #30 packet 01/15/25 01/31/25 Rx FLUoxetine HCL [PROzac] 20 mg PO DAILY 01/31/25 01/31/25 History Furosemide [Lasix] 20 mg PO DAILY 01/31/25 01/31/25 History HYDROcodone/APAP 5-325MG [[place] 1 tab PO Q6HR PRN 01/31/25 01/31/25 History 5-325] Lidocaine 5% Patch [Lidoderm] 1 patch TOPICAL DAILY 01/31/25 01/31/25 History Potassium Chloride 10 meq PO DAILY 01/31/25 01/31/25 History Allergies Allergy/AdvReac Type Severity Reaction Status Date / Time amoxicillin [From Augmentin] Allergy Anaphylaxis Verified 01/31/25 10:33 /rash/hives cefprozil [From Cefzil] Allergy Anaphylaxis Verified 01/31/25 10:33 /rash/hives clavulanic acid Allergy Anaphylaxis Verified 01/31/25 10:33 [From Augmentin] /rash/hives sulfamethoxazole Allergy Anaphylaxis Verified 01/31/25 10:33 [From Bactrim] /rash/hives trimethoprim [From Bactrim] Allergy Anaphylaxis Verified 01/31/25 10:33 /rash/hives Physical Exam Vitals: Vital Signs Temp Pulse Resp BP Pulse Ox 01/31/25 12:00 67 18 139/84 100 01/31/25 10:44 71 18 150/88 94 L 01/31/25 08:40 76 18 96 01/31/25 07:47 75 18 147/96 96 01/31/25 06:00 72 16 144/100 98 01/31/25 03:00 71 18 141/89 97 01/31/25 01:00 76 16 136/84 97 01/31/25 00:00 79 16 118/56 97 01/30/25 23:25 80 16 116/68 97 01/30/25 23:10 149 H 14 67/48 97 01/30/25 23:05 149 H 14 93/73 97 01/30/25 22:55 149 H 14 101/60 97 01/30/25 22:45 147 H 14 121/84 97 01/30/25 22:24 97.9 F 147 H 18 98/66 98 Intake and Output 01/30/25 01/31/25 01/31/25 22:59 06:59 14:59 Other: Weight 90.718 kg 90.718 kg Patient is awake, comfortable, no acute distress Examination of the heart S1 and S2 Examination of the lungs bilateral breath sounds are heard Abdomen is soft nontender, incisions healing well from recent surgery Examination of lower extremities shows edema 1+ bilaterally Results - Lab Results Most recent lab results Calcium 9.8 mg/dL (8.4-10.2) 01/31/25 01:01 Magnesium 2.0 mg/dL (1.6-2.3) 01/30/25 22:58 01/31/25 10:57 01/31/25 01:01 Assessment and Plan Assessment: 1. Chronic kidney disease stage IV secondary to solitary functioning kidney with baseline creatinine 1.7 to 1.9 mg/dL. Renal function close to baseline 2. Status post recent left nephrectomy on 01/26/20[address] out of town mostly for chronic hydronephrosis, infections and minimal renal function on the left kidney 3. Cardiac arrhythmia with V. tach status post shock and maintained on amiodarone drip. Potassium was elevated at 5.7. Repeat potassium noted at 7.4 but that was hemolyzed. 4. Hyperkalemia associated with chronic kidney disease and hyperglycemia. Rule out urine retention. Patient was maintained on potassium supplementation at h ome. 5. [place]ongap metabolic acidosis secondary to chronic kidney disease 6. Elevated liver enzymes from shock liver from hypotension Plan: Add IV Lasix Add oral sodium bicarb Repeat labs in a.m. Continue off of potassium supplementation Avoid nephrotoxic medications Thank you for the consultation. We will continue to follow the patient with you during her hospitalization
[2025-01-31 12:26] LABS: INR 1.3 (<1.2); Prothrombin Time 13.8 sec (10.0-12.5)
[2025-01-31 12:33] LABS: Partial Thromboplastin Time 22.1 sec (22.0-30.0)
--- NOTE | 2025-01-31 12:38 | US ---
EXAMINATION TYPE: US abdomen limited DATE OF EXAM: 01/31/2025 COMPARISON: CT 01/31/2025 CLINICAL INDICATION: Female, 74 years old with history of Elevated LFTs; Nausea and vomiting. Left Ne phrectomy last week. TECHNIQUE: Grayscale and color Doppler imaging of the right upper quadrant was performed. 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 Gallbladder: ? Stone vs polyp at neck of gallbladder, not seen in supine - limited visualization due to patient body habitus and liver attenuation thickened lew are better appreciated on CT. Evidence for sonographic Patricio's sign: No CBD: wnl Right Kidney: limited visualization, WNL as visualized IMPRESSION: 1. Gallstone versus polyp in the gallbladder neck given edematous appearance on CT 01/31/2025 correla te for signs and symptoms of acute cholecystitis consider HIDA scan. 2. Hepatic steatosis. [facility], , 01/31/2025 12:35 PM
[2025-01-31 12:46] LABS: Platelet Count 59 10*3/uL (140-440)
--- NOTE | 2025-01-31 13:09 | US ---
EXAMINATION TYPE: US kidneys/renal and bladder DATE OF EXAM: 01/31/2025 COMPARISON: 01/31/2025 CLINICAL INDICATION: Female, 74 years old with history of Jaci; Left nephrectomy about one week ago TECHNIQUE: Grayscale imaging of the bilateral kidneys and urinary bladder: FINDINGS: EXAM MEASUREMENTS: Right Kidney: 10.4 x 4.6 x 4.5 cm Left Kidney: Surgically absent cm Post Void Residual Volume: NA mL Right Kidney: wnl, no evidence for hydronephrosis, mass or renal calculus. Left Kidney: Surgically absent; limited visualization of left renal fossa due to soft tissue swelling and limited windows due to surgical scarring Bladder: Not fully distended, WNL as visualized Bilateral Jets seen: Not able to assess Normal Post Void Residual: NA IMPRESSION: 1. No evidence for acute process. 2. Surgically absent left kidney. [facility], , 01/31/2025 1:06 PM
[2025-01-31] MEDS: HEPARIN SODIUM 1,000 UN/ML (10ML VL) IV PRN (13:31)
[2025-01-31] MEDS: SODIUM BICARBONATE TAB 650 MG TAB PO SCH (13:34)
[2025-01-31] MEDS ORDERED: MELATONIN 5 MG TABLET PO PRN (16:59)
--- NOTE | 2025-01-31 17:01 | P.HPIM ---
History of Present Illness H&P Date: 01/31/25 History of present illness; patient 74-year-old lady with past medical history significant for coronary artery disease, heart failure, hyperlipidemia, hypertension who presented the ER for elevated blood sugar levels. Patient stated recently she had nephrectomy done at another facility, following that patient was recuperating well. There was no complaint of any abdominal pain. Patient denies any nausea or vomiting. There was no complaint of chest pain. Patient denies any complain of palpitations. There was no complaint of orthopnea or PND. Patient denies any complaint of dizziness. There is no complaint of headache. Patient checked her blood sugars at home and was found to be elevated and decided to come to the ER. Initial lab work done in the ER showed WBC 10.93, hemoglobin 10.9, platelet count 84, sodium 131, potassium 5.7, BUN 37, creatinine 1.92, glucose 239, bilirubin 1.4 AST 644, ALT 516 troponin 0.922 proBNP 23674 Chest x-ray done in the ERShowed chronic changes without acute pulmonary CT abdomen pelvis done showed small to moderate bilateral pleural effusion with compressive atelectasis, fractures of multiple left lower ribs. Mild anasarca. Gallbladder is underdistended filled with hyperdense sludge and contains a 4 mm stone in the neck Initial EKG showing patient to be in V. tach, initially patient was hemodynamic stable and was started on amiodarone drip, following that patient became hypotensive and had to be cardioverted with 100 J. Patient admitted to internal medicine service REVIEW OF SYSTEMS: CONSTITUTIONAL: No fever, no malaise, no fatigue. HEENT: No recent visual problems or hearing problems. Denied any sore throat. CARDIOVASCULAR: As mentioned above PULMONARY: As mentioned above GASTROINTESTINAL: As mentioned above NEUROLOGICAL: No headaches, no weakness, no numbness. HEMATOLOGICAL: Denies any bleeding or petechiae. GENITOURINARY: Denies any burning micturition, frequency, or urgency. MUSCULOSKELETAL/RHEUMATOLOGICAL: Denies any joint pain, swelling, or any muscle pain. ENDOCRINE: Denies any polyuria or polydipsia. The rest of the 14-point review of systems is negative. PHYSICAL EXAMINATION: GENERAL: The patient is alert and oriented x3, not in any acute distress. Ill looking HEENT: Pupils are round and equally reacting to light. EOMI. No scleral icterus. No conjunctival pallor. Normocephalic, atraumatic. No pharyngeal erythema. No thyromegaly. CARDIOVASCULAR: S1 and S2 present. No murmurs, rubs, or gallops. PULMONARY: Chest is clear to auscultation, no wheezing or crackles. ABDOMEN: Soft, nontender, nondistended, normoactive bowel sounds. No palpable organomegaly.left upper quadrant surgical incision MUSCULOSKELETAL: No joint swelling or deformity. EXTREMITIES: No cyanosis, clubbing, or pedal edema. NEUROLOGICAL: Gross neurological examination did not reveal any focal deficits. SKIN: No rashes. Assessment and plan NSTEMI Episodes of V. tach Acute CHF Hyponatremia Hyperkalemia Hyperbilirubinemia Acute transaminitis History of coronary artery disease History of hypertension History of hyperlipidemia Monitor vital signs Monitor CBC Monitor CMP Continue telemetry monitoring Trend troponins Ordered 2D echo Ordered pharmacy to dose heparin Avoid hepatotoxic agents Ordered hyperkalemia protocol Ordered ultrasound abdomen Consult cardiology Consult nephrology Consult surgery Labs and medication were reviewed.. Continue same treatment. Continue with symptomatic treatment. Resume home medication. Monitor labs and vitals. DVT and GI prophylaxis. Further recommendations as per clinical course of the patient Dictation was produced using [employer] dictation software. please excuse any grammatical, word or spelling errors. Past Medical History Past Medical History: Asthma, Coronary Artery Disease (CAD), Chest Pain / Angina, Heart Failure, Diabetes Mellitus, GERD/Reflux, Hyperlipidemia, Hypertension, Myocardial Infarction ([place]), Osteoarthritis (OA), Pneumonia, Renal Disease, Syncope Additional Past Medical History / Comment(s): [place] 1998, 2004, 2008, CARDIAC ARREST 2016,GOUT, SPINAL STENOSIS, BRONCHITIS, CONSTIPATION, HX OF DIZZINESS & FALLS, AORTIC STENOSIS, KIDNEY FAILURE STAGE 3-B, PACER/AICD, Fatigue, very SOB w/exertion recently. Aortic Valve Replacement Dec, 2019. has on kidney Last Myocardial Infarction Date:: 2007 History of Any Multi-Drug Resistant Organisms: None Reported Past Surgical History: AICD, Appendectomy, Back Surgery, Section, Coronary Bypass/CABG, Heart Catheterization With Stent, Joint Replacement, Orthopedic Surgery, Pacemaker Additional Past Surgical History / Comment(s): ANGELIC 08/18/19, TOTAL RIGHT SHOULDER, BACK SURGERY X2, QUAD CABG-"DIAPHRAGM PARALIZED AFTER SX HAD TO GO TO PULMONARY REHAB, 7 HEART CATHS-MULTIPLE STENTS 3 C-SECTIONS, OVARIAN CYST(RT) Past Anesthesia/Blood Transfusion Reactions: No Reported Reaction Additional Past Anesthesia/Blood Transfusion Reaction / Comment(s): HX BLOOD TRA NSFUSION - NO REACTION. Date of Last Stent Placement:: UNKNOWN Type of Cardiac Device: AICD Device Placement Date:: 10-05-16 lt chest [place] Past Psychological History: Anxiety, Depression Smoking Status: Never smoker Past Alcohol Use History: Occasional Past Drug Use History: None Reported - Past Family History Mother Family Medical History: No Reported History Additional Family Medical History / Comment(s): . Medications and Allergies Home Medications Medication Instructions Recorded Confirmed Type Famotidine [Pepcid] 20 mg PO HS 06/20/16 01/31/25 History Montelukast [Singulair] 10 mg PO HS 06/20/16 01/31/25 History allopurinoL [Zyloprim] 300 mg PO HS 06/20/16 01/31/25 History Evolocumab [Repatha Syringe] 140 mg SQ Q14D 10/05/19 01/31/25 History Insulin Glargine,Hum.rec.anlog 10 units SQ BID 02/21/23 01/31/25 History [Lantus Solostar Pen] Insulin Lispro [humaLOG Kwikpen] See Protocol SQ TID-W/MEALS 02/21/23 01/31/25 History Ranolazine [Ranexa] 500 mg PO BID 02/21/23 01/31/25 History Nystatin 100,000 Unit/gm Powd 1 applic TOPICAL BID 10/18/24 01/31/25 History [Mycostatin Powder] Acetaminophen Tab [Tylenol] 1,000 mg PO BID 01/05/25 01/31/25 History Acetaminophen Tab [Tylenol] 1,000 mg PO Q6HR PRN 01/05/25 01/31/25 History Isosorbide Mononitrate ER [Imdur] 60 mg PO BID 01/05/25 01/31/25 History Nystatin 100,000Unit/gm Cream 1 applic TOPICAL BID 01/05/25 01/31/25 History [Mycostatin Cream] Linezolid [Zyvox] 600 mg PO Q12H 12 Days #24 tab 01/15/25 01/31/25 Rx carvediloL [Coreg] 3.125 mg PO BID-W/MEALS 30 Days 01/15/25 01/31/25 Rx #60 tab polyethylene glycoL 3350 [Miralax] 17 gm PO HS #30 packet 01/15/25 01/31/25 Rx FLUoxetine HCL [PROzac] 20 mg PO DAILY 01/31/25 01/31/25 History Furosemide [Lasix] 20 mg PO DAILY 01/31/25 01/31/25 History HYDROcodone/APAP 5-325MG [[place] 1 tab PO Q6HR PRN 01/31/25 01/31/25 History 5-325] Lidocaine 5% Patch [Lidoderm] 1 patch TOPICAL DAILY 01/31/25 01/31/25 History Potassium Chloride 10 meq PO DAILY 01/31/25 01/31/25 History Allergies Allergy/AdvReac Type Severity Reaction Status Date / Time amoxicillin [From Augmentin] Allergy Anaphylaxis Verified 01/31/25 10:33 /rash/hives cefprozil [From Cefzil] Allergy Anaphylaxis Verified 01/31/25 10:33 /rash/hives clavulanic acid Allergy Anaphylaxis Verified 01/31/25 10:33 [From Augmentin] /rash/hives sulfamethoxazole Allergy Anaphylaxis Verified 01/31/25 10:33 [From Bactrim] /rash/hives trimethoprim [From Bactrim] Allergy Anaphylaxis Verified 01/31/25 10:33 /rash/hives Physical Exam Vitals: Vital Signs Temp Pulse Resp BP Pulse Ox 01/31/25 10:44 71 18 150/88 94 L 01/31/25 08:40 76 18 96 01/31/25 07:47 75 18 147/96 96 01/31/25 06:00 72 16 144/100 98 01/31/25 03:00 71 18 141/89 97 01/31/25 01:00 76 16 136/84 97 01/31/25 00:00 79 16 118/56 97 01/30/25 23:25 80 16 116/68 97 01/30/25 23:10 149 H 14 67/48 97 01/30/25 23:05 149 H 14 93/73 97 01/30/25 22:55 149 H 14 101/60 97 01/30/25 22:45 147 H 14 121/84 97 01/30/25 22:24 97.9 F 147 H 18 98/66 98 Intake and Output 06/28/25 06/29/25 06/29/25 22:59 06:59 14:59 Other: Weight 90.718 kg 90.718 kg Results CBC & Chem 7: 01/31/25 10:57 01/31/25 15:44 Labs: Abnormal Lab Results - Last 24 Hours (Table) 01/30/25 01/30/25 01/30/25 Range/Units 22:27 22:58 22:58 WBC 10.93 H (4.50-10.00) 10*3/uL RBC 3.43 L (4.10-5.20) 10*6/uL Hgb 10.9 L (12.0-15.0) g/dL Hct 32.5 L (37.2-46.3) % Plt Count 84 L (140-440) 10*3/uL Immature Gran # 0.10 H (0.00-0.04) 10*3/uL Neutrophils # 8.49 H (1.80-7.70) 10*3/uL PT 12.9 H (10.0-12.5) sec INR 1.2 H (<1.2) APTT 21.6 L (22.0-30.0) sec VBG pH (7.31-7.41) VBG HCO3 (24-28) mmol/L Sodium (137-145) mmol/L Potassium (3.5-5.1) mmol/L Carbon Dioxide (22-30) mmol/L BUN (7-17) mg/dL Creatinine (0.52-1.04) mg/dL Glucose (74-99) mg/dL POC Glucose (mg/dL) 284 H (70-110) mg/dL Total Bilirubin (0.2-1.3) mg/dL AST (14-36) U/L ALT (4-34) U/L Alkaline Phosphatase (38-126) U/L Troponin I (0.000-0.034) ng/mL Total Protein (6.3-8.2) g/dL 01/30/25 01/30/25 01/31/25 Range/Units 22:58 22:58 00:12 WBC (4.50-10.00) 10*3/uL RBC (4.10-5.20) 10*6/uL Hgb (12.0-15.0) g/dL Hct (37.2-46.3) % Plt Count (140-440) 10*3/uL Immature Gran # (0.00-0.04) 10*3/uL Neutrophils # (1.80-7.70) 10*3/uL PT (10.0-12.5) sec INR (<1.2) APTT (22.0-30.0) sec VBG pH (7.31-7.41) VBG HCO3 (24-28) mmol/L Sodium 131 L 131 L (137-145) mmol/L Potassium 5.7 H 7.4 H* (3.5-5.1) mmol/L Carbon Dioxide 18 L 17 L (22-30) mmol/L BUN 37 H 38 H (7-17) mg/dL Creatinine 1.92 H 1.88 H (0.52-1.04) mg/dL Glucose 239 H 244 H (74-99) mg/dL POC Glucose (mg/dL) (70-110) mg/dL Total Bilirubin 1.4 H 1.7 H (0.2-1.3) mg/dL AST 644 H 1351 H (14-36) U/L ALT 516 H 1128 H (4-34) U/L Alkaline Phosphatase (38-126) U/L Troponin I 0.922 H* (0.000-0.034) ng/mL Total Protein 5.8 L (6.3-8.2) g/dL 01/31/25 01/31/25 Range/Units 00:14 01:01 WBC (4.50-10.00) 10*3/uL RBC (4.10-5.20) 10*6/uL Hgb (12.0-15.0) g/dL Hct (37.2-46.3) % Plt Count (140-440) 10*3/uL Immature Gran # (0.00-0.04) 10*3/uL Neutrophils # (1.80-7.70) 10*3/uL PT (10.0-12.5) sec INR (<1.2) APTT (22.0-30.0) sec VBG pH 7.29 L (7.31-7.41) VBG HCO3 19 L (24-28) mmol/L Sodium 132 L (137-145) mmol/L Potassium 5.6 H (3.5-5.1) mmol/L Carbon Dioxide 18 L (22-30) mmol/L BUN 37 H (7-17) mg/dL Creatinine 1.94 H (0.52-1.04) mg/dL Glucose 249 H (74-99) mg/dL POC Glucose (mg/dL) (70-110) mg/dL Total Bilirubin (0.2-1.3) mg/dL AST 1791 H (14-36) U/L ALT 1405 H (4-34) U/L Alkaline Phosphatase 133 H (38-126) U/L Troponin I (0.000-0.034) ng/mL Total Protein 5.8 L (6.3-8.2) g/dL Thrombosis Risk Factor Assmnt - Choose All That Apply Any of the Below Risk Factors Present?: Yes Each Factor Represents 1 point: History of prior major surgery (<1month), Obesity (BMI >25) Each Risk Factor Represents 2 Points: Age 61-74 years Thrombosis Risk Factor Assessment Total Risk Factor Score: 4 Thrombosis Risk Factor Assessment Level: Moderate Risk
[2025-01-31] MEDS ORDERED: HYDROcodone/APAP 5-325MG 1 EACH TAB PO PRN (17:24)
[2025-01-31] MEDS: HYDROcodone/APAP 5-325MG 1 EACH TAB PO PRN (17:30)
--- NOTE | 2025-01-31 18:29 | P.GSCN ---
History of Present Illness History of present illness: Patient is a 74-year-old female presenting for blood sugar issues General Surgery was consulted secondary to CT findings concerning for acute cholecystitis patient denies difficulty with diet and denies postprandial abdominal pain currently denies nausea vomiting fever chills shortness of breath or chest pain and cannot recall ever having right upper quadrant pain patient denies history of gallstones. Review of Systems - Constitutional Reports as per HPI Past Medical History Past Medical History: Asthma, Coronary Artery Disease (CAD), Chest Pain / Angina, Heart Failure, Diabetes Mellitus, GERD/Reflux, Hyperlipidemia, Hypertension, Myocardial Infarction ([place]), Osteoarthritis (OA), Pneumonia, Renal Disease, Syncope Additional Past Medical History / Comment(s): [place] 1997, 2003, 2007, CARDIAC ARREST 2016,GOUT, SPINAL STENOSIS, BRONCHITIS, CONSTIPATION, HX OF DIZZINESS & FALLS, AORTIC STENOSIS, KIDNEY FAILURE STAGE 3-B, PACER/AICD, Fatigue, very SOB w/exertion recently. Aortic Valve Replacement Dec, 2019. 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 Date of Last Stent Placement:: UNKNOWN Type of Cardiac Device: AICD Device Placement Date:: 10-05-16 [facility] Past Psychological History: Anxiety, Depression Smoking Status: Never smoker Past Alcohol Use History: Occasional Past Drug Use History: None Reported - Past Family History Mother Family Medical History: No Reported History Additional Family Medical History / Comment(s): . Medications and Allergies Home Medications Medication Instructions Recorded Confirmed Type Famotidine [Pepcid] 20 mg PO HS 06/20/16 01/31/25 History Montelukast [Singulair] 10 mg PO HS 06/20/16 01/31/25 History allopurinoL [Zyloprim] 300 mg PO HS 06/20/16 01/31/25 History Evolocumab [Repatha Syringe] 140 mg SQ Q14D 10/05/19 01/31/25 History Insulin Glargine,Hum.rec.anlog 10 units SQ BID 02/21/23 01/31/25 History [Lantus Solostar Pen] Insulin Lispro [humaLOG Kwikpen] See Protocol SQ TID-W/MEALS 02/21/23 01/31/25 History Ranolazine [Ranexa] 500 mg PO BID 02/21/23 01/31/25 History Nystatin 100,000 Unit/gm Powd 1 applic TOPICAL BID 10/18/24 01/31/25 History [Mycostatin Powder] Acetaminophen Tab [Tylenol] 1,000 mg PO BID 01/05/25 01/31/25 History Acetaminophen Tab [Tylenol] 1,000 mg PO Q6HR PRN 01/05/25 01/31/25 History Isosorbide Mononitrate ER [Imdur] 60 mg PO BID 01/05/25 01/31/25 History Nystatin 100,000Unit/gm Cream 1 applic TOPICAL BID 01/05/25 01/31/25 History [Mycostatin Cream] Linezolid [Zyvox] 600 mg PO Q12H 12 Days #24 tab 01/15/25 01/31/25 Rx carvediloL [Coreg] 3.125 mg PO BID-W/MEALS 30 Days 01/15/25 01/31/25 Rx #60 tab polyethylene glycoL 3350 [Miralax] 17 gm PO HS #30 packet 01/15/25 01/31/25 Rx FLUoxetine HCL [PROzac] 20 mg PO DAILY 01/31/25 01/31/25 History Furosemide [Lasix] 20 mg PO DAILY 01/31/25 01/31/25 History HYDROcodone/APAP 5-325MG [[place] 1 tab PO Q6HR PRN 01/31/25 01/31/25 History 5-325] Lidocaine 5% Patch [Lidoderm] 1 patch TOPICAL DAILY 01/31/25 01/31/25 History Potassium Chloride 10 meq PO DAILY 01/31/25 01/31/25 History Allergies Allergy/AdvReac Type Severity Reaction Status Date / Time amoxicillin [From Augmentin] Allergy Anaphylaxis Verified 01/31/25 10:33 /rash/hives cefprozil [From Cefzil] Allergy Anaphylaxis Verified 01/31/25 10:33 /rash/hives clavulanic acid Allergy Anaphylaxis Verified 01/31/25 10:33 [From Augmentin] /rash/hives sulfamethoxazole Allergy Anaphylaxis Verified 01/31/25 10:33 [From Bactrim] /rash/hives trimethoprim [From Bactrim] Allergy Anaphylaxis Verified 01/31/25 10:33 /rash/hives Surgical - Exam Osteopathic Statement: *. No significant issues noted on an osteopathic structural exam other than those noted in the History and Physical/Consult. Vital Signs Temp Pulse Resp BP Pulse Ox 97.9 F 147 H 18 98/66 98 01/30/25 22:24 01/30/25 22:24 01/30/25 22:24 01/30/25 22:24 01/30/25 22:24 General No acute distress alert and oriented x 3 Cardiovascular regular rate and rhythm Pulmonary nonlabored breathing Abdomen soft nontender nondistended no guarding or rebound tenderness Results - Labs 01/31/25 10:57 01/31/25 15:44 Abnormal Lab Results - Last 24 Hours (Table) 01/30/25 01/30/25 01/30/25 Range/Units 22:27 22:58 22:58 WBC 10.93 H (4.50-10.00) 10*3/uL RBC 3.43 L (4.10-5.20) 10*6/uL Hgb 10.9 L (12.0-15.0) g/dL Hct 32.5 L (37.2-46.3) % Plt Count 84 L (140-440) 10*3/uL Immature Gran # 0.10 H (0.00-0.04) 10*3/uL Neutrophils # 8.49 H (1.80-7.70) 10*3/uL Monocytes # (0.20-1.00) 10*3/uL PT 12.9 H (10.0-12.5) sec INR 1.2 H (<1.2) APTT 21.6 L (22.0-30.0) sec VBG pH (7.31-7.41) VBG HCO3 (24-28) mmol/L Sodium (137-145) mmol/L Potassium (3.5-5.1) mmol/L Carbon Dioxide (22-30) mmol/L BUN (7-17) mg/dL Creatinine (0.52-1.04) mg/dL Glucose (74-99) mg/dL POC Glucose (mg/dL) 284 H (70-110) mg/dL Total Bilirubin (0.2-1.3) mg/dL AST (14-36) U/L ALT (4-34) U/L Alkaline Phosphatase (38-126) U/L Troponin I (0.000-0.034) ng/mL Total Protein (6.3-8.2) g/dL 01/30/25 01/30/25 01/31/25 Range/Units 22:58 22:58 00:12 WBC (4.50-10.00) 10*3/uL RBC (4.10-5.20) 10*6/uL Hgb (12.0-15.0) g/dL Hct (37.2-46.3) % Plt Count (140-440) 10*3/uL Immature Gran # (0.00-0.04) 10*3/uL Neutrophils # (1.80-7.70) 10*3/uL Monocytes # (0.20-1.00) 10*3/uL PT (10.0-12.5) sec INR (<1.2) APTT (22.0-30.0) sec VBG pH (7.31-7.41) VBG HCO3 (24-28) mmol/L Sodium 131 L 131 L (137-145) mmol/L Potassium 5.7 H 7.4 H* (3.5-5.1) mmol/L Carbon Dioxide 18 L 17 L (22-30) mmol/L BUN 37 H 38 H (7-17) mg/dL Creatinine 1.92 H 1.88 H (0.52-1.04) mg/dL Glucose 239 H 244 H (74-99) mg/dL POC Glucose (mg/dL) (70-110) mg/dL Total Bilirubin 1.4 H 1.7 H (0.2-1.3) mg/dL AST 644 H 1351 H (14-36) U/L ALT 516 H 1128 H (4-34) U/L Alkaline Phosphatase (38-126) U/L Troponin I 0.922 H* (0.000-0.034) ng/mL Total Protein 5.8 L (6.3-8.2) g/dL 01/31/25 01/31/25 01/31/25 Range/Units 00:14 01:01 10:57 WBC 12.22 H (4.50-10.00) 10*3/uL RBC 3.49 L (4.10-5.20) 10*6/uL Hgb 11.1 L (12.0-15.0) g/dL Hct 32.0 L (37.2-46.3) % Plt Count 59 L (140-440) 10*3/uL Immature Gran # 0.18 H (0.00-0.04) 10*3/uL Neutrophils # 8.67 H (1.80-7.70) 10*3/uL Monocytes # 1.49 H (0.20-1.00) 10*3/uL PT (10.0-12.5) sec INR (<1.2) APTT (22.0-30.0) sec VBG pH 7.29 L (7.31-7.41) VBG HCO3 19 L (24-28) mmol/L Sodium 132 L (137-145) mmol/L Potassium 5.6 H (3.5-5.1) mmol/L Carbon Dioxide 18 L (22-30) mmol/L BUN 37 H (7-17) mg/dL Creatinine 1.94 H (0.52-1.04) mg/dL Glucose 249 H (74-99) mg/dL POC Glucose (mg/dL) (70-110) mg/dL Total Bilirubin (0.2-1.3) mg/dL AST 1791 H (14-36) U/L ALT 1405 H (4-34) U/L Alkaline Phosphatase 133 H (38-126) U/L Troponin I (0.000-0.034) ng/mL Total Protein 5.8 L (6.3-8.2) g/dL 01/31/25 01/31/25 01/31/25 Range/Units 12:09 15:44 15:44 WBC (4.50-10.00) 10*3/uL RBC (4.10-5.20) 10*6/uL Hgb (12.0-15.0) g/dL Hct (37.2-46.3) % Plt Count (140-440) 10*3/uL Immature Gran # (0.00-0.04) 10*3/uL Neutrophils # (1.80-7.70) 10*3/uL Monocytes # (0.20-1.00) 10*3/uL PT 13.8 H (10.0-12.5) sec INR 1.3 H (<1.2) APTT (22.0-30.0) sec VBG pH (7.31-7.41) VBG HCO3 (24-28) mmol/L Sodium (137-145) mmol/L Potassium 5.3 H (3.5-5.1) mmol/L Carbon Dioxide (22-30) mmol/L BUN (7-17) mg/dL Creatinine (0.52-1.04) mg/dL Glucose (74-99) mg/dL POC Glucose (mg/dL) (70-110) mg/dL Total Bilirubin (0.2-1.3) mg/dL AST (14-36) U/L ALT (4-34) U/L Alkaline Phosphatase (38-126) U/L Troponin I 6.630 H* (0.000-0.034) ng/mL Total Protein (6.3-8.2) g/dL Diabetes panel 01/30/25 01/31/25 01/31/25 Range/Units 22:58 00:12 01:01 Sodium 131 L 131 L 132 L (137-145) mmol/L Potassium 5.7 H 7.4 H* 5.6 H (3.5-5.1) mmol/L Chloride 99 99 101 (98-107) mmol/L Carbon Dioxide 18 L 17 L 18 L (22-30) mmol/L BUN 37 H 38 H 37 H (7-17) mg/dL Creatinine 1.92 H 1.88 H 1.94 H (0.52-1.04) mg/dL Glucose 239 H 244 H 249 H (74-99) mg/dL Calcium 9.8 9.7 9.8 (8.4-10.2) mg/dL AST 644 H 1351 H 1791 H (14-36) U/L ALT 516 H 1128 H 1405 H (4-34) U/L Alkaline Phosphatase 114 111 133 H (38-126) U/L Total Protein 5.8 L 6.4 5.8 L (6.3-8.2) g/dL Albumin 3.5 3.8 3.5 (3.5-5.0) g/dL 01/31/25 Range/Units 15:44 Sodium (137-145) mmol/L Potassium 5.3 H (3.5-5.1) mmol/L Chloride (98-107) mmol/L Carbon Dioxide (22-30) mmol/L BUN (7-17) mg/dL Creatinine (0.52-1.04) mg/dL Glucose (74-99) mg/dL Calcium (8.4-10.2) mg/dL AST (14-36) U/L ALT (4-34) U/L Alkaline Phosphatase (38-126) U/L Total Protein (6.3-8.2) g/dL Albumin (3.5-5.0) g/dL Calcium panel 01/30/25 01/31/25 01/31/25 Range/Units 22:58 00:12 01:01 Calcium 9.8 9.7 9.8 (8.4-10.2) mg/dL Albumin 3.5 3.8 3.5 (3.5-5.0) g/dL Pituitary panel 01/30/25 01/31/25 01/31/25 Range/Units 22:58 00:12 01:01 Sodium 131 L 131 L 132 L (137-145) mmol/L Potassium 5.7 H 7.4 H* 5.6 H (3.5-5.1) mmol/L Chloride 99 99 101 (98-107) mmol/L Carbon Dioxide 18 L 17 L 18 L (22-30) mmol/L BUN 37 H 38 H 37 H (7-17) mg/dL Creatinine 1.92 H 1.88 H 1.94 H (0.52-1.04) mg/dL Glucose 239 H 244 H 249 H (74-99) mg/dL Calcium 9.8 9.7 9.8 (8.4-10.2) mg/dL 01/31/25 Range/Units 15:44 Sodium (137-145) mmol/L Potassium 5.3 H (3.5-5.1) mmol/L Chloride (98-107) mmol/L Carbon Dioxide (22-30) mmol/L BUN (7-17) mg/dL Creatinine (0.52-1.04) mg/dL Glucose (74-99) mg/dL Calcium (8.4-10.2) mg/dL Adrenal panel 01/30/25 01/31/25 01/31/25 Range/Units 22:58 00:12 01:01 Sodium 131 L 131 L 132 L (137-145) mmol/L Potassium 5.7 H 7.4 H* 5.6 H (3.5-5.1) mmol/L Chloride 99 99 101 (98-107) mmol/L Carbon Dioxide 18 L 17 L 18 L (22-30) mmol/L BUN 37 H 38 H 37 H (7-17) mg/dL Creatinine 1.92 H 1.88 H 1.94 H (0.52-1.04) mg/dL Glucose 239 H 244 H 249 H (74-99) mg/dL Calcium 9.8 9.7 9.8 (8.4-10.2) mg/dL Total Bilirubin 1.4 H 1.7 H 1.2 (0.2-1.3) mg/dL AST 644 H 1351 H 1791 H (14-36) U/L ALT 516 H 1128 H 1405 H (4-34) U/L Alkaline Phosphatase 114 111 133 H (38-126) U/L Total Protein 5.8 L 6.4 5.8 L (6.3-8.2) g/dL Albumin 3.5 3.8 3.5 (3.5-5.0) g/dL 01/31/25 Range/Units 15:44 Sodium (137-145) mmol/L Potassium 5.3 H (3.5-5.1) mmol/L Chloride (98-107) mmol/L Carbon Dioxide (22-30) mmol/L BUN (7-17) mg/dL Creatinine (0.52-1.04) mg/dL Glucose (74-99) mg/dL Calcium (8.4-10.2) mg/dL Total Bilirubin (0.2-1.3) mg/dL AST (14-36) U/L ALT (4-34) U/L Alkaline Phosphatase (38-126) U/L Total Protein (6.3-8.2) g/dL Albumin (3.5-5.0) g/dL Assessment and Plan Assessment: 74-year-old female presenting with blood sugar issues and incidental finding of CT scan demonstrating possible acute cholecystitis Ultrasound of the abdomen reveals no gallbladder wall thickening stone versus polyp and no pericholecystic fluid Patient is currently asymptomatic No intervention at this time Follow-up outpatient Time with Patient: Greater than 30
[2025-01-31 18:30] LABS: Bacteria,Urine Rare /hpf; Bilirubin,Urine Negative (Negative); Blood,Urine Negative (Negative); Color,Urine Yellow; Glucose,Urine (UA) Negative (Negative); Hyaline Casts,Urine 1 /lpf (0-2); Ketones,Urine Negative (Negative); Leukocyte Esterase,Urine Trace (Negative); Mucus,Urine Rare /hpf; Nitrite,Urine Negative (Negative); PH, Urine 5.0 (5.0-8.0); Protein,Urine Trace (Negative); Specific Gravity,Urine 1.019 (1.001-1.035); Squamous Epithelial Cell,Urine 2 /hpf (0-4); Urobilinogen,Urine <2.0 mg/dL (<2.0); WBC,Urine 10 /hpf (0-5)
[2025-01-31] MEDS: LIDOCAINE 4% PATCH TOPICAL SCH (18:49)
[2025-01-31] MEDS: PANTOPRAZOLE 40 MG/10 ML VIAL IVP SCH (21:12)
[2025-01-31] MEDS: INSULIN GLARGINE (LANTUS) 100 UNIT/ML SYR SQ SCH (21:50)
[2025-01-31] MEDS: HYDROmorphone 0.5 MG/0.5 ML SYRINGE IVP PRN (21:59)
[2025-02-01 02:47] LABS: Hepatitis A Antibody IgM Nonreactive (Nonreactive); Hepatitis B Surface Antigen Nonreactive (Nonreactive); Hepatitis C IgG Antibody Nonreactive (Nonreactive)
[2025-02-01 02:56] LABS: Basophils # (A) 0.08 10*3/uL (0.00-0.10); Basophils % (A) 0.7 %; Eosinophils # (A) 0.26 10*3/uL (0.04-0.35); Eosinophils % (A) 2.4 %; HCT 28.4 % (37.2-46.3); Immature Platelet Fraction 11.0 % (1.1-6.1); Lymphocytes # (A) 1.89 10*3/uL (0.90-5.00); Lymphocytes % (A) 17.3 %; MCH 32.0 pg (27.0-32.0); MCHC 33.8 g/dL (32.0-37.0); MCV 94.7 fL (80.0-97.0); Monocytes # (A) 1.31 10*3/uL (0.20-1.00); Monocytes % (A) 12.0 %; Neutrophils # (A) 6.86 10*3/uL (1.80-7.70); Neutrophils % (A) 62.8 %; RBC 3.00 10*6/uL (4.10-5.20); RDW 14.5 % (11.5-14.5); WBC 10.92 10*3/uL (4.50-10.00)
[2025-02-01 03:10] LABS: African American GFR (CKD) 25 (>60 ml/min/1.73 sqM); Albumin 3.4 g/dL (3.5-5.0); Alkaline Phosphatase 140 U/L (38-126); Anion Gap 10 mmol/L; Blood Urea Nitrogen 44 mg/dL (7-17); Calcium 9.6 mg/dL (8.4-10.2); Carbon Dioxide 22 mmol/L (22-30); Chloride 101 mmol/L (98-107); Glucose 175 mg/dL (74-99); Non-African American GFR(CKD) 22 (>60 ml/min/1.73 sqM); Potassium 5.1 mmol/L (3.5-5.1); Sodium 133 mmol/L (137-145); Total Protein 5.6 g/dL (6.3-8.2)
[2025-02-01 03:12] LABS: HGB 9.6 g/dL (12.0-15.0); Platelet Count 57 10*3/uL (140-440)
[2025-02-01 03:36] LABS: ALT 2230 U/L (4-34); AST 2108 U/L (14-36)
[2025-02-01 07:49] LABS: Glucose,Whole Blood 144 mg/dL (70-110)
[2025-02-01] MEDS: FUROSEMIDE 10 MG/ML 4 ML VIAL IV SCH (07:59)
[2025-02-01 08:02] LABS: RBC Morphology Normal
[2025-02-01] MEDS: AMIODARONE 200 MG TAB PO SCH (08:06)
--- NOTE | 2025-02-01 09:05 | P.PN ---
Subjective Patient is seen in follow-up for acute kidney injury on chronic kidney disease. On IV Lasix. Has been voiding. Denies chest pain or shortness of breath. Vital signs are stable. General: The patient no acute distress. HEENT: Head exam is unremarkable. LUNGS: No audible rhonchi or wheezes. HEART: Rate and Rhythm are regular. ABDOMEN: Nontender. EXTREMITITES: 1+ edema. Objective - Vital Signs Vital signs: Vital Signs Temp 98.3 F 02/01/25 07:52 Pulse 71 02/01/25 07:52 Resp 16 02/01/25 07:52 BP 171/105 02/01/25 07:52 Pulse Ox 91 L 02/01/25 07:52 FiO2 Intake & Output 01/31/25 02/01/25 02/01/25 18:59 06:59 18:59 Intake Total 113.095 210.741 Balance 113.095 210.741 Weight 90.718 kg Intake: Intake, IV Titration 113.095 210.741 Amount Heparin Sod,Pork in 0.45% 113.095 210.741 NaCl 25,000 unit In 0.45 % NaCl 1 250ml.bag @ 11 UNITS/KG/HR 9.979 mls/hr IV .Q24H [facility] Rx#: [id number] - Labs CBC & Chem 7: 02/01/25 02:30 02/01/25 02:30 Labs: Abnormal Lab Results - Last 24 Hours (Table) 01/31/25 01/31/25 01/31/25 Range/Units 10:57 12:09 15:44 WBC 12.22 H (4.50-10.00) 10*3/uL RBC 3.49 L (4.10-5.20) 10*6/uL Hgb 11.1 L (12.0-15.0) g/dL Hct 32.0 L (37.2-46.3) % Plt Count 59 L (140-440) 10*3/uL MPV (9.5-12.2) fL Immature Gran # 0.18 H (0.00-0.04) 10*3/uL Neutrophils # 8.67 H (1.80-7.70) 10*3/uL Monocytes # 1.49 H (0.20-1.00) 10*3/uL Immature Plt Fraction (1.1-6.1) % PT 13.8 H (10.0-12.5) sec INR 1.3 H (<1.2) Sodium (137-145) mmol/L Potassium 5.3 H (3.5-5.1) mmol/L BUN (7-17) mg/dL Creatinine (0.52-1.04) mg/dL Glucose (74-99) mg/dL POC Glucose (mg/dL) (70-110) mg/dL Osmolality (275-295) mOsm/kg AST (14-36) U/L ALT (4-34) U/L Alkaline Phosphatase (38-126) U/L Troponin I (0.000-0.034) ng/mL Total Protein (6.3-8.2) g/dL Albumin (3.5-5.0) g/dL Urine Appearance (Clear) Urine Protein (Negative) Ur Leukocyte Esterase (Negative) Urine WBC (0-5) /hpf Urine Bacteria (None) /hpf Urine Mucus (None) /hpf Ur Random Sodium (40-220) mmol/L 01/31/25 01/31/25 01/31/25 Range/Units 15:44 15:44 18:00 WBC (4.50-10.00) 10*3/uL RBC (4.10-5.20) 10*6/uL Hgb (12.0-15.0) g/dL Hct (37.2-46.3) % Plt Count (140-440) 10*3/uL MPV (9.5-12.2) fL Immature Gran # (0.00-0.04) 10*3/uL Neutrophils # (1.80-7.70) 10*3/uL Monocytes # (0.20-1.00) 10*3/uL Immature Plt Fraction (1.1-6.1) % PT (10.0-12.5) sec INR (<1.2) Sodium (137-145) mmol/L Potassium (3.5-5.1) mmol/L BUN (7-17) mg/dL Creatinine (0.52-1.04) mg/dL Glucose (74-99) mg/dL POC Glucose (mg/dL) (70-110) mg/dL Osmolality 298 H (275-295) mOsm/kg AST (14-36) U/L ALT (4-34) U/L Alkaline Phosphatase (38-126) U/L Troponin I 6.630 H* (0.000-0.034) ng/mL Total Protein (6.3-8.2) g/dL Albumin (3.5-5.0) g/dL Urine Appearance Cloudy H (Clear) Urine Protein Trace H (Negative) Ur Leukocyte Esterase Trace H (Negative) Urine WBC 10 H (0-5) /hpf Urine Bacteria Rare H (None) /hpf Urine Mucus Rare H (None) /hpf Ur Random Sodium (40-220) mmol/L 01/31/25 02/01/25 02/01/25 Range/Units 18:00 02:30 02:30 WBC 10.92 H (4.50-10.00) 10*3/uL RBC 3.00 L (4.10-5.20) 10*6/uL Hgb 9.6 L D (12.0-15.0) g/dL Hct 28.4 L (37.2-46.3) % Plt Count 57 L (140-440) 10*3/uL MPV 13.4 H (9.5-12.2) fL Immature Gran # 0.52 H (0.00-0.04) 10*3/uL Neutrophils # (1.80-7.70) 10*3/uL Monocytes # 1.31 H (0.20-1.00) 10*3/uL Immature Plt Fraction 11.0 H (1.1-6.1) % PT (10.0-12.5) sec INR (<1.2) Sodium 133 L (137-145) mmol/L Potassium (3.5-5.1) mmol/L BUN 44 H (7-17) mg/dL Creatinine 2.21 H (0.52-1.04) mg/dL Glucose 175 H (74-99) mg/dL POC Glucose (mg/dL) (70-110) mg/dL Osmolality (275-295) mOsm/kg AST 2108 H (14-36) U/L ALT 2230 H (4-34) U/L Alkaline Phosphatase 140 H (38-126) U/L Troponin I (0.000-0.034) ng/mL Total Protein 5.6 L (6.3-8.2) g/dL Albumin 3.4 L (3.5-5.0) g/dL Urine Appearance (Clear) Urine Protein (Negative) Ur Leukocyte Esterase (Negative) Urine WBC (0-5) /hpf Urine Bacteria (None) /hpf Urine Mucus (None) /hpf Ur Random Sodium 24 L (40-220) mmol/L /30/ Range/Units 07:48 WBC (4.50-10.00) 10*3/uL RBC (4.10-5.20) 10*6/uL Hgb (12.0-15.0) g/dL Hct (37.2-46.3) % Plt Count (140-440) 10*3/uL MPV (9.5-12.2) fL Immature Gran # (0.00-0.04) 10*3/uL Neutrophils # (1.80-7.70) 10*3/uL Monocytes # (0.20-1.00) 10*3/uL Immature Plt Fraction (1.1-6.1) % PT (10.0-12.5) sec INR (<1.2) Sodium (137-145) mmol/L Potassium (3.5-5.1) mmol/L BUN (7-17) mg/dL Creatinine (0.52-1.04) mg/dL Glucose (74-99) mg/dL POC Glucose (mg/dL) 144 H (70-110) mg/dL Osmolality (275-295) mOsm/kg AST (14-36) U/L ALT (4-34) U/L Alkaline Phosphatase (38-126) U/L Troponin I (0.000-0.034) ng/mL Total Protein (6.3-8.2) g/dL Albumin (3.5-5.0) g/dL Urine Appearance (Clear) Urine Protein (Negative) Ur Leukocyte Esterase (Negative) Urine WBC (0-5) /hpf Urine Bacteria (None) /hpf Urine Mucus (None) /hpf Ur Random Sodium (40-220) mmol/L Assessment and Plan Plan: Assessment: 1. Acute kidney injury secondary to ATN secondary to diuresis. Creatinine 2.2 today. UA fairly benign. No hydronephrosis noted on ultrasound. 2. Chronic kidney disease stage IV secondary to solitary kidney with recent creatinine 1.7-1.9. 3. V. tach status post amiodarone drip. 4. Hyperkalemia secondary to acidosis, chronic kidney disease, potassium supplementation and hyperglycemia. Improved. 5. Shock liver. 6. Metabolic acidosis secondary to acute kidney injury. Better. On oral bic arb. 7. Volume overload. 8. Diabetes mellitus. Plan: Maintain IV Lasix. Avoid nephrotoxins. Continue to monitor renal function and urine output.
--- NOTE | 2025-02-01 10:06 | P.PN ---
Subjective Progress Note Date: 02/01/25 The patient was seen and evaluated this morning. She still feeling congested but no symptoms of chest pain or chest discomfort. She has been maintaining sinus rhythm on the current dose of amiodarone. Her liver function test are elevated. Will follow-up with the trend of liver function test and continue tapering down the dose of amiodarone. Beside that the pressure is elevated. I am going to increase the dose of carvedilol. Heparin will be discontinued later on today. Echo will be ordered as well. The physical examination is remarkable for distant heart sounds with regular rate and rhythm and soft systolic murmur and diminished breathing sounds bilaterally and mild bilateral lower extremities edema FINAL ASSESSMENT AND PLAN: Ventricular tachycardia Congestive heart failure Ischemic cardiomyopathy Status post AICD History of multivessel coronary artery disease Chronic kidney disease Status post nephrectomy PLAN: Continue amiodarone orally Continue monitoring the liver function test Taper down the dose of amiodarone DC heparin Increase the dose of carvedilol Follow-up with the patient Follow-up with the echocardiogram Objective - Vital Signs Vital signs: Vital Signs Temp 98.3 F 02/01/25 07:52 Pulse 71 02/01/25 07:52 Resp 16 02/01/25 07:52 BP 171/105 02/01/25 07:52 Pulse Ox 91 L 02/01/25 07:52 FiO2 Intake & Output 01/31/25 02/01/25 02/01/25 18:59 06:59 18:59 Intake Total 113.095 210.741 Balance 113.095 210.741 Weight 90.718 kg Intake: Intake, IV Titration 113.095 210.741 Amount Heparin Sod,Pork in 0.45% 113.095 210.741 NaCl 25,000 unit In 0.45 % NaCl 1 250ml.bag @ 11 UNITS/KG/HR 9.979 mls/hr IV .Q24H [facility] Rx#: [id number] - Labs CBC & Chem 7: 02/01/25 02:30 02/01/25 02:30 Labs: Abnormal Lab Results - Last 24 Hours (Table) 01/31/25 01/31/25 01/31/25 Range/Units 10:57 12:09 15:44 WBC 12.22 H (4.50-10.00) 10*3/uL RBC 3.49 L (4.10-5.20) 10*6/uL Hgb 11.1 L (12.0-15.0) g/dL Hct 32.0 L (37.2-46.3) % Plt Count 59 L (140-440) 10*3/uL MPV (9.5-12.2) fL Immature Gran # 0.18 H (0.00-0.04) 10*3/uL Neutrophils # 8.67 H (1.80-7.70) 10*3/uL Monocytes # 1.49 H (0.20-1.00) 10*3/uL Immature Plt Fraction (1.1-6.1) % PT 13.8 H (10.0-12.5) sec INR 1.3 H (<1.2) Sodium (137-145) mmol/L Potassium 5.3 H (3.5-5.1) mmol/L BUN (7-17) mg/dL Creatinine (0.52-1.04) mg/dL Glucose (74-99) mg/dL POC Glucose (mg/dL) (70-110) mg/dL Osmolality (275-295) mOsm/kg AST (14-36) U/L ALT (4-34) U/L Alkaline Phosphatase (38-126) U/L Troponin I (0.000-0.034) ng/mL Total Protein (6.3-8.2) g/dL Albumin (3.5-5.0) g/dL Urine Appearance (Clear) Urine Protein (Negative) Ur Leukocyte Esterase (Negative) Urine WBC (0-5) /hpf Urine Bacteria (None) /hpf Urine Mucus (None) /hpf Ur Random Sodium (40-220) mmol/L 01/31/25 01/31/25 01/31/25 Range/Units 15:44 15:44 18:00 WBC (4.50-10.00) 10*3/uL RBC (4.10-5.20) 10*6/uL Hgb (12.0-15.0) g/dL Hct (37.2-46.3) % Plt Count (140-440) 10*3/uL MPV (9.5-12.2) fL Immature Gran # (0.00-0.04) 10*3/uL Neutrophils # (1.80-7.70) 10*3/uL Monocytes # (0.20-1.00) 10*3/uL Immature Plt Fraction (1.1-6.1) % PT (10.0-12.5) sec INR (<1.2) Sodium (137-145) mmol/L Potassium (3.5-5.1) mmol/L BUN (7-17) mg/dL Creatinine (0.52-1.04) mg/dL Glucose (74-99) mg/dL POC Glucose (mg/dL) (70-110) mg/dL Osmolality 298 H (275-295) mOsm/kg AST (14-36) U/L ALT (4-34) U/L Alkaline Phosphatase (38-126) U/L Troponin I 6.630 H* (0.000-0.034) ng/mL Total Protein (6.3-8.2) g/dL Albumin (3.5-5.0) g/dL Urine Appearance Cloudy H (Clear) Urine Protein Trace H (Negative) Ur Leukocyte Esterase Trace H (Negative) Urine WBC 10 H (0-5) /hpf Urine Bacteria Rare H (None) /hpf Urine Mucus Rare H (None) /hpf Ur Random Sodium (40-220) mmol/L 01/31/25 02/01/25 02/01/25 Range/Units 18:00 02:30 02:30 WBC 10.92 H (4.50-10.00) 10*3/uL RBC 3.00 L (4.10-5.20) 10*6/uL Hgb 9.6 L D (12.0-15.0) g/dL Hct 28.4 L (37.2-46.3) % Plt Count 57 L (140-440) 10*3/uL MPV 13.4 H (9.5-12.2) fL Immature Gran # 0.52 H (0.00-0.04) 10*3/uL Neutrophils # (1.80-7.70) 10*3/uL Monocytes # 1.31 H (0.20-1.00) 10*3/uL Immature Plt Fraction 11.0 H (1.1-6.1) % PT (10.0-12.5) sec INR (<1.2) Sodium 133 L (137-145) mmol/L Potassium (3.5-5.1) mmol/L BUN 44 H (7-17) mg/dL Creatinine 2.21 H (0.52-1.04) mg/dL Glucose 175 H (74-99) mg/dL POC Glucose (mg/dL) (70-110) mg/dL Osmolality (275-295) mOsm/kg AST 2108 H (14-36) U/L ALT 2230 H (4-34) U/L Alkaline Phosphatase 140 H (38-126) U/L Troponin I (0.000-0.034) ng/mL Total Protein 5.6 L (6.3-8.2) g/dL Albumin 3.4 L (3.5-5.0) g/dL Urine Appearance (Clear) Urine Protein (Negative) Ur Leukocyte Esterase (Negative) Urine WBC (0-5) /hpf Urine Bacteria (None) /hpf Urine Mucus (None) /hpf Ur Random Sodium 24 L (40-220) mmol/L 06/30/25 Range/Units 07:48 WBC (4.50-10.00) 10*3/uL RBC (4.10-5.20) 10*6/uL Hgb (12.0-15.0) g/dL Hct (37.2-46.3) % Plt Count (140-440) 10*3/uL MPV (9.5-12.2) fL Immature Gran # (0.00-0.04) 10*3/uL Neutrophils # (1.80-7.70) 10*3/uL Monocytes # (0.20-1.00) 10*3/uL Immature Plt Fraction (1.1-6.1) % PT (10.0-12.5) sec INR (<1.2) Sodium (137-145) mmol/L Potassium (3.5-5.1) mmol/L BUN (7-17) mg/dL Creatinine (0.52-1.04) mg/dL Glucose (74-99) mg/dL POC Glucose (mg/dL) 144 H (70-110) mg/dL Osmolality (275-295) mOsm/kg AST (14-36) U/L ALT (4-34) U/L Alkaline Phosphatase (38-126) U/L Troponin I (0.000-0.034) ng/mL Total Protein (6.3-8.2) g/dL Albumin (3.5-5.0) g/dL Urine Appearance (Clear) Urine Protein (Negative) Ur Leukocyte Esterase (Negative) Urine WBC (0-5) /hpf Urine Bacteria (None) /hpf Urine Mucus (None) /hpf Ur Random Sodium (40-220) mmol/L
--- NOTE | 2025-02-01 12:03 | P.PN ---
Subjective Progress Note Date: 02/01/25 Patient seen and examined at bedside. States she feels abdominal fullness. No nausea or vomiting. On heparin drip currently. Objective - Vital Signs Vital signs: Vital Signs Temp 98.3 F 02/01/25 07:52 Pulse 71 02/01/25 07:52 Resp 16 02/01/25 07:52 BP 171/105 02/01/25 07:52 Pulse Ox 91 L 02/01/25 07:52 FiO2 Intake & Output 01/31/25 02/01/25 02/01/25 18:59 06:59 18:59 Intake Total 113.095 210.741 Output Total 900 Balance 113.095 210.741 -900 Weight 90.718 kg Intake: Intake, IV Titration 113.095 210.741 Amount Heparin Sod,Pork in 0.45% 113.095 210.741 NaCl 25,000 unit In 0.45 % NaCl 1 250ml.bag @ 11 UNITS/KG/HR 9.979 mls/hr IV .Q24H [facility] Rx#: [id number] Output: Urine 900 Uretheral ([place]) 900 - Constitutional General appearance: Present: cooperative - Gastrointestinal Gastrointestinal Comment(s): Soft, nontender, mildly distended, no rebound or guarding - Labs CBC & Chem 7: 02/01/25 02:30 02/01/25 02:30 Labs: Abnormal Lab Results - Last 24 Hours (Table) 01/31/25 01/31/25 01/31/25 Range/Units 10:57 12:09 15:44 WBC 12.22 H (4.50-10.00) 10*3/uL RBC 3.49 L (4.10-5.20) 10*6/uL Hgb 11.1 L (12.0-15.0) g/dL Hct 32.0 L (37.2-46.3) % Plt Count 59 L (140-440) 10*3/uL MPV (9.5-12.2) fL Immature Gran # 0.18 H (0.00-0.04) 10*3/uL Neutrophils # 8.67 H (1.80-7.70) 10*3/uL Monocytes # 1.49 H (0.20-1.00) 10*3/uL Immature Plt Fraction (1.1-6.1) % PT 13.8 H (10.0-12.5) sec INR 1.3 H (<1.2) Sodium (137-145) mmol/L Potassium 5.3 H (3.5-5.1) mmol/L BUN (7-17) mg/dL Creatinine (0.52-1.04) mg/dL Glucose (74-99) mg/dL POC Glucose (mg/dL) (70-110) mg/dL Osmolality (275-295) mOsm/kg AST (14-36) U/L ALT (4-34) U/L Alkaline Phosphatase (38-126) U/L Troponin I (0.000-0.034) ng/mL Total Protein (6.3-8.2) g/dL Albumin (3.5-5.0) g/dL Urine Appearance (Clear) Urine Protein (Negative) Ur Leukocyte Esterase (Negative) Urine WBC (0-5) /hpf Urine Bacteria (None) /hpf Urine Mucus (None) /hpf Ur Random Sodium (40-220) mmol/L 01/31/25 01/31/25 01/31/25 Range/Units 15:44 15:44 18:00 WBC (4.50-10.00) 10*3/uL RBC (4.10-5.20) 10*6/uL Hgb (12.0-15.0) g/dL Hct (37.2-46.3) % Plt Count (140-440) 10*3/uL MPV (9.5-12.2) fL Immature Gran # (0.00-0.04) 10*3/uL Neutrophils # (1.80-7.70) 10*3/uL Monocytes # (0.20-1.00) 10*3/uL Immature Plt Fraction (1.1-6.1) % PT (10.0-12.5) sec INR (<1.2) Sodium (137-145) mmol/L Potassium (3.5-5.1) mmol/L BUN (7-17) mg/dL Creatinine (0.52-1.04) mg/dL Glucose (74-99) mg/dL POC Glucose (mg/dL) (70-110) mg/dL Osmolality 298 H (275-295) mOsm/kg AST (14-36) U/L ALT (4-34) U/L Alkaline Phosphatase (38-126) U/L Troponin I 6.630 H* (0.000-0.034) ng/mL Total Protein (6.3-8.2) g/dL Albumin (3.5-5.0) g/dL Urine Appearance Cloudy H (Clear) Urine Protein Trace H (Negative) Ur Leukocyte Esterase Trace H (Negative) Urine WBC 10 H (0-5) /hpf Urine Bacteria Rare H (None) /hpf Urine Mucus Rare H (None) /hpf Ur Random Sodium (40-220) mmol/L 01/31/25 02/01/25 02/01/25 Range/Units 18:00 02:30 02:30 WBC 10.92 H (4.50-10.00) 10*3/uL RBC 3.00 L (4.10-5.20) 10*6/uL Hgb 9.6 L D (12.0-15.0) g/dL Hct 28.4 L (37.2-46.3) % Plt Count 57 L (140-440) 10*3/uL MPV 13.4 H (9.5-12.2) fL Immature Gran # 0.52 H (0.00-0.04) 10*3/uL Neutrophils # (1.80-7.70) 10*3/uL Monocytes # 1.31 H (0.20-1.00) 10*3/uL Immature Plt Fraction 11.0 H (1.1-6.1) % PT (10.0-12.5) sec INR (<1.2) Sodium 133 L (137-145) mmol/L Potassium (3.5-5.1) mmol/L BUN 44 H (7-17) mg/dL Creatinine 2.21 H (0.52-1.04) mg/dL Glucose 175 H (74-99) mg/dL POC Glucose (mg/dL) (70-110) mg/dL Osmolality (275-295) mOsm/kg AST 2108 H (14-36) U/L ALT 2230 H (4-34) U/L Alkaline Phosphatase 140 H (38-126) U/L Troponin I (0.000-0.034) ng/mL Total Protein 5.6 L (6.3-8.2) g/dL Albumin 3.4 L (3.5-5.0) g/dL Urine Appearance (Clear) Urine Protein (Negative) Ur Leukocyte Esterase (Negative) Urine WBC (0-5) /hpf Urine Bacteria (None) /hpf Urine Mucus (None) /hpf Ur Random Sodium 24 L (40-220) mmol/L // Range/Units 07:48 WBC (4.50-10.00) 10*3/uL RBC (4.10-5.20) 10*6/uL Hgb (12.0-15.0) g/dL Hct (37.2-46.3) % Plt Count (140-440) 10*3/uL MPV (9.5-12.2) fL Immature Gran # (0.00-0.04) 10*3/uL Neutrophils # (1.80-7.70) 10*3/uL Monocytes # (0.20-1.00) 10*3/uL Immature Plt Fraction (1.1-6.1) % PT (10.0-12.5) sec INR (<1.2) Sodium (137-145) mmol/L Potassium (3.5-5.1) mmol/L BUN (7-17) mg/dL Creatinine (0.52-1.04) mg/dL Glucose (74-99) mg/dL POC Glucose (mg/dL) 144 H (70-110) mg/dL Osmolality (275-295) mOsm/kg AST (14-36) U/L ALT (4-34) U/L Alkaline Phosphatase (38-126) U/L Troponin I (0.000-0.034) ng/mL Total Protein (6.3-8.2) g/dL Albumin (3.5-5.0) g/dL Urine Appearance (Clear) Urine Protein (Negative) Ur Leukocyte Esterase (Negative) Urine WBC (0-5) /hpf Urine Bacteria (None) /hpf Urine Mucus (None) /hpf Ur Random Sodium (40-220) mmol/L Assessment and Plan Plan: 74-year-old female with concern for polyp versus small gallstone. She currently has no abdominal tenderness. On review of her laboratory values, her transaminases are significantly elevated greater than 2000. I would recommend GI evaluation secondary to these findings. It does not appear that this is secondary to small gallstone. Total bilirubin is 1.3. At this point, no plan for acute surgical intervention. Continue further workup of elevated transaminases.
--- NOTE | 2025-02-01 14:07 | P.PN ---
Subjective Progress Note Date: 02/01/25 patient 74-year-old lady with past medical history significant for coronary artery disease, heart failure, hyperlipidemia, hypertension who presented the ER for elevated blood sugar levels. Patient stated recently she had nephrectomy done at another facility, following that patient was recuperating well. There was no complaint of any abdominal pain. Patient denies any nausea or vomiting. There was no complaint of chest pain. Patient denies any complain of palpitations. There was no complaint of orthopnea or PND. Patient denies any complaint of dizziness. There is no complaint of headache. Patient checked her blood sugars at home and was found to be elevated and decided to come to the ER. Initial lab work done in the ER showed WBC 10.93, hemoglobin 10.9, platelet count 84, sodium 131, potassium 5.7, BUN 37, creatinine 1.92, glucose 239, bilirubin 1.4 AST 644, ALT 516 troponin 0.922 proBNP [id number] Chest x-ray done in the ERShowed chronic changes without acute pulmonary CT abdomen pelvis done showed small to moderate bilateral pleural effusion with compressive atelectasis, fractures of multiple left lower ribs. Mild anasarca. Gallbladder is underdistended filled with hyperdense sludge and contains a 4 mm stone in the neck Initial EKG showing patient to be in V. tach, initially patient was hemodynamic stable and was started on amiodarone drip, following that patient became hypotensive and had to be cardioverted with 100 J. Patient admitted to internal medicine service 02/01. Patient seen and examined. Vital signs show temperature 98.3, heart rate 71, blood pressure 171/105, currently on room air. Labs reviewed this morning showing WBC 10.92, hemoglobin 9.6, sodium 133, potassium 5.1, AST 2108, ALT 2230. Denies abdominal pain. Has swelling of upper extremities denies any shortness of breath at rest. REVIEW OF SYSTEMS: CONSTITUTIONAL: No fever, no malaise,. CARDIOVASCULAR: No chest pain, no palpitations, no syncope. PULMONARY: As mentioned above GASTROINTESTINAL: No diarrhea, no nausea, no vomiting, no abdominal pain. NEUROLOGICAL: No headaches, no weakness, PHYSICAL EXAMINATION: GENERAL: The patient is alert and oriented x3, not in any acute distress. Well developed, well nourished. HEENT: Pupils are round and equally reacting to light. EOMI. No scleral icterus. No conjunctival pallor. Normocephalic, atraumatic. No pharyngeal erythema. No thyromegaly. CARDIOVASCULAR: S1 and S2 present. No murmurs, rubs, or gallops. PULMONARY: Chest is clear to auscultation, no wheezing or crackles. ABDOMEN: Soft, nontender, nondistended, left-sided surgical incision seen MUSCULOSKELETAL: No joint swelling or deformity. EXTREMITIES: Upper extremities are swollen, 1+ pitting edema of lower extremities NEUROLOGICAL: Gross neurological examination did not reveal any focal deficits. SKIN: No rashes. Assessment and plan NSTEMI Episodes of V. tach Acute CHF Hyponatremia Hyperkalemia Hyperbilirubinemia Acute transaminitis Dili versus congestive hepatopathy History of coronary artery disease History of hypertension History of hyperlipidemia Monitor vital signs Monitor CBC Monitor CMP Continue telemetry monitoring Trend troponins Ordered 2D echo Continue pharmacy to dose heparin Strict I's and O's, daily weights, continue IV Lasix 40 mg daily Continue IV Protonix Continue tapering down amiodarone Avoid hepatotoxic agents GI consulted for elevated LFTs Cardiology following Nephrology following Labs and medication were reviewed.. Continue same treatment. Continue with symptomatic treatment. Resume home medication. Monitor labs and vitals. DVT and GI prophylaxis. Further recommendations as per clinical course of the patient Dictation was produced using [employer] dictation software. please excuse any grammatical, word or spelling errors. Objective - Vital Signs Vital signs: Vital Signs Temp 98.3 F 02/01/25 07:52 Pulse 71 02/01/25 07:52 Resp 16 02/01/25 07:52 BP 171/105 02/01/25 07:52 Pulse Ox 91 L 02/01/25 07:52 FiO2 Intake & Output 01/31/25 02/01/25 02/01/25 18:59 06:59 18:59 Intake Total 113.095 210.741 Balance 113.095 210.741 Weight 90.718 kg Intake: Intake, IV Titration 113.095 210.741 Amount Heparin Sod,Pork in 0.45% 113.095 210.741 NaCl 25,000 unit In 0.45 % NaCl 1 250ml.bag @ 11 UNITS/KG/HR 9.979 mls/hr IV .Q24H [facility] Rx#: [id number] - Labs CBC & Chem 7: 02/01/25 02:30 02/01/25 02:30 Labs: Abnormal Lab Results - Last 24 Hours (Table) 01/31/25 01/31/25 01/31/25 Range/Units 10:57 12:09 15:44 WBC 12.22 H (4.50-10.00) 10*3/uL RBC 3.49 L (4.10-5.20) 10*6/uL Hgb 11.1 L (12.0-15.0) g/dL Hct 32.0 L (37.2-46.3) % Plt Count 59 L (140-440) 10*3/uL MPV (9.5-12.2) fL Immature Gran # 0.18 H (0.00-0.04) 10*3/uL Neutrophils # 8.67 H (1.80-7.70) 10*3/uL Monocytes # 1.49 H (0.20-1.00) 10*3/uL Immature Plt Fraction (1.1-6.1) % PT 13.8 H (10.0-12.5) sec INR 1.3 H (<1.2) Sodium (137-145) mmol/L Potassium 5.3 H (3.5-5.1) mmol/L BUN (7-17) mg/dL Creatinine (0.52-1.04) mg/dL Glucose (74-99) mg/dL POC Glucose (mg/dL) (70-110) mg/dL Osmolality (275-295) mOsm/kg AST (14-36) U/L ALT (4-34) U/L Alkaline Phosphatase (38-126) U/L Troponin I (0.000-0.034) ng/mL Total Protein (6.3-8.2) g/dL Albumin (3.5-5.0) g/dL Urine Appearance (Clear) Urine Protein (Negative) Ur Leukocyte Esterase (Negative) Urine WBC (0-5) /hpf Urine Bacteria (None) /hpf Urine Mucus (None) /hpf Ur Random Sodium (40-220) mmol/L 01/31/25 01/31/25 01/31/25 Range/Units 15:44 15:44 18:00 WBC (4.50-10.00) 10*3/uL RBC (4.10-5.20) 10*6/uL Hgb (12.0-15.0) g/dL Hct (37.2-46.3) % Plt Count (140-440) 10*3/uL MPV (9.5-12.2) fL Immature Gran # (0.00-0.04) 10*3/uL Neutrophils # (1.80-7.70) 10*3/uL Monocytes # (0.20-1.00) 10*3/uL Immature Plt Fraction (1.1-6.1) % PT (10.0-12.5) sec INR (<1.2) Sodium (137-145) mmol/L Potassium (3.5-5.1) mmol/L BUN (7-17) mg/dL Creatinine (0.52-1.04) mg/dL Glucose (74-99) mg/dL POC Glucose (mg/dL) (70-110) mg/dL Osmolality 298 H (275-295) mOsm/kg AST (14-36) U/L ALT (4-34) U/L Alkaline Phosphatase (38-126) U/L Troponin I 6.630 H* (0.000-0.034) ng/mL Total Protein (6.3-8.2) g/dL Albumin (3.5-5.0) g/dL Urine Appearance Cloudy H (Clear) Urine Protein Trace H (Negative) Ur Leukocyte Esterase Trace H (Negative) Urine WBC 10 H (0-5) /hpf Urine Bacteria Rare H (None) /hpf Urine Mucus Rare H (None) /hpf Ur Random Sodium (40-220) mmol/L 01/31/25 02/01/25 02/01/25 Range/Units 18:00 02:30 02:30 WBC 10.92 H (4.50-10.00) 10*3/uL RBC 3.00 L (4.10-5.20) 10*6/uL Hgb 9.6 L D (12.0-15.0) g/dL Hct 28.4 L (37.2-46.3) % Plt Count 57 L (140-440) 10*3/uL MPV 13.4 H (9.5-12.2) fL Immature Gran # 0.52 H (0.00-0.04) 10*3/uL Neutrophils # (1.80-7.70) 10*3/uL Monocytes # 1.31 H (0.20-1.00) 10*3/uL Immature Plt Fraction 11.0 H (1.1-6.1) % PT (10.0-12.5) sec INR (<1.2) Sodium 133 L (137-145) mmol/L Potassium (3.5-5.1) mmol/L BUN 44 H (7-17) mg/dL Creatinine 2.21 H (0.52-1.04) mg/dL Glucose 175 H (74-99) mg/dL POC Glucose (mg/dL) (70-110) mg/dL Osmolality (275-295) mOsm/kg AST 2108 H (14-36) U/L ALT 2230 H (4-34) U/L Alkaline Phosphatase 140 H (38-126) U/L Troponin I (0.000-0.034) ng/mL Total Protein 5.6 L (6.3-8.2) g/dL Albumin 3.4 L (3.5-5.0) g/dL Urine Appearance (Clear) Urine Protein (Negative) Ur Leukocyte Esterase (Negative) Urine WBC (0-5) /hpf Urine Bacteria (None) /hpf Urine Mucus (None) /hpf Ur Random Sodium 24 L (40-220) mmol/L 06/30/25 Range/Units 07:48 WBC (4.50-10.00) 10*3/uL RBC (4.10-5.20) 10*6/uL Hgb (12.0-15.0) g/dL Hct (37.2-46.3) % Plt Count (140-440) 10*3/uL MPV (9.5-12.2) fL Immature Gran # (0.00-0.04) 10*3/uL Neutrophils # (1.80-7.70) 10*3/uL Monocytes # (0.20-1.00) 10*3/uL Immature Plt Fraction (1.1-6.1) % PT (10.0-12.5) sec INR (<1.2) Sodium (137-145) mmol/L Potassium (3.5-5.1) mmol/L BUN (7-17) mg/dL Creatinine (0.52-1.04) mg/dL Glucose (74-99) mg/dL POC Glucose (mg/dL) 144 H (70-110) mg/dL Osmolality (275-295) mOsm/kg AST (14-36) U/L ALT (4-34) U/L Alkaline Phosphatase (38-126) U/L Troponin I (0.000-0.034) ng/mL Total Protein (6.3-8.2) g/dL Albumin (3.5-5.0) g/dL Urine Appearance (Clear) Urine Protein (Negative) Ur Leukocyte Esterase (Negative) Urine WBC (0-5) /hpf Urine Bacteria (None) /hpf Urine Mucus (None) /hpf Ur Random Sodium (40-220) mmol/L
--- NOTE | 2025-02-01 14:43 | P.CONS ---
History of Present Illness - Reason for Consult Consult date: 02/01/25 Transaminitis, possible CBD stone Requesting physician: Cassidy Blevins - Chief Complaint Elevated blood sugars - History of Present Illness This is a pleasant 74-year-old female with multiple comorbidities including diabetes mellitus, coronary artery disease with multiple stents, heart failure, hyperlipidemia, hypertension, myocardial infarction, aortic valve replacement, chronic kidney disease who underwent a left nephrectomy about a week ago who presented to the emergency department yesterday with elevated blood sugars since her surgery. Patient is admitted with multiple consultants. Was noted to have ventricular tachycardia during her emergency room visit and underwent cardioversion on 01/31/2025. She was noted to have elevated troponin on admission with significant increase in 01/31/2025. Also noted on admission to be hypotensive with blood pressures in the 60s over 40s. On admission she was noted to have elevated total bilirubin 1.4 AST 644 ALT 516 alkaline phosphatase 114 with continued elevation with a repeat today of 1.321 03/26/1929 140 respect ively. Gastroenterology was consulted secondary to transaminitis and patient also had CT scan that reported gallstones and gall sludge and possible gallstone in the gallbladder neck. Patient denies any abdominal pain, nausea or vomiting. She has not been having any right upper quadrant abdominal pain. Denies any history of liver disease. Hepatitis panel is nonreactive. Also noted to be thrombocytopenic with leukocytosis on admission as well. Review of Systems REVIEW OF SYSTEMS: CARDIOPULMONARY: No chest pain or shortness of breath. Gastrointestinal: No abdominal pain. No nausea or vomiting. No hematemesis, coffee-ground emesis. No rectal bleeding, or melena. GENITOURINARY: No dysuria or hematuria. MUSCULOSKELETAL: Reports normal range of motion., Joint pain. SKIN: No rashes. No jaundice. ENDOCRINE: No chills, fevers. No excessive weight gain or loss. No polydipsia or polyuria. PSYCHIATRIC: Unremarkable. NEUROLOGY: No change in mental status. Denies dizziness, headache. ENT: Vision unremarkable. CONSTITUTIONAL: No recent weight loss. No fever, chills, night sweats. Past Medical History Past Medical History: Asthma, Coronary Artery Disease (CAD), Chest Pain / Angina, Heart Failure, Diabetes Mellitus, GERD/Reflux, Hyperlipidemia, Hypertension, Myocardial Infarction (CO), Osteoarthritis (OA), Pneumonia, Renal Disease, Syncope Additional Past Medical History / Comment(s): CO 1998, 2004, 2008, CARDIAC ARREST 2016,GOUT, SPINAL STENOSIS, BRONCHITIS, CONSTIPATION, HX OF DIZZINESS & FALLS, AORTIC STENOSIS, KIDNEY FAILURE STAGE 3-B, PACER/AICD, Fatigue, very SOB w/exertion recently. Aortic Valve Replacement Dec, 2019. 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 Date of Last Stent Placement:: UNKNOWN Type of Cardiac Device: AICD Device Placement Date:: 10-05-16 chest [employer] Past Psychological History: Anxiety, Depression Smoking Status: Never smoker Past Alcohol Use History: Occasional Past Drug Use History: None Reported - Past Family History Mother Family Medical History: No Reported History Additional Family Medical History / Comment(s): . Medications and Allergies Home Medications Medication Instructions Recorded Confirmed Type Famotidine [Pepcid] 20 mg PO HS 06/20/16 01/31/25 History Montelukast [Singulair] 10 mg PO HS 06/20/16 01/31/25 History allopurinoL [Zyloprim] 300 mg PO HS 06/20/16 01/31/25 History Evolocumab [Repatha Syringe] 140 mg SQ Q14D 10/05/19 01/31/25 History Insulin Glargine,Hum.rec.anlog 10 units SQ BID 02/21/23 01/31/25 History [Lantus Solostar Pen] Insulin Lispro [humaLOG Kwikpen] See Protocol SQ TID-W/MEALS 02/21/23 01/31/25 History Ranolazine [Ranexa] 500 mg PO BID 02/21/23 01/31/25 History Nystatin 100,000 Unit/gm Powd 1 applic TOPICAL BID 10/18/24 01/31/25 History [Mycostatin Powder] Acetaminophen Tab [Tylenol] 1,000 mg PO BID 01/05/25 01/31/25 History Acetaminophen Tab [Tylenol] 1,000 mg PO Q6HR PRN 01/05/25 01/31/25 History Isosorbide Mononitrate ER [Imdur] 60 mg PO BID 01/05/25 01/31/25 History Nystatin 100,000Unit/gm Cream 1 applic TOPICAL BID 01/05/25 01/31/25 History [Mycostatin Cream] Linezolid [Zyvox] 600 mg PO Q12H 12 Days #24 tab 01/15/25 01/31/25 Rx carvediloL [Coreg] 3.125 mg PO BID-W/MEALS 30 Days 01/15/25 01/31/25 Rx #60 tab polyethylene glycoL 3350 [Miralax] 17 gm PO HS #30 packet 01/15/25 01/31/25 Rx FLUoxetine HCL [PROzac] 20 mg PO DAILY 01/31/25 01/31/25 History Furosemide [Lasix] 20 mg PO DAILY 01/31/25 01/31/25 History HYDROcodone/APAP 5-325MG [Tennga 1 tab PO Q6HR PRN 01/31/25 01/31/25 History 5-325] Lidocaine 5% Patch [Lidoderm] 1 patch TOPICAL DAILY 01/31/25 01/31/25 History Potassium Chloride 10 meq PO DAILY 01/31/25 01/31/25 History Allergies Allergy/AdvReac Type Severity Reaction Status Date / Time amoxicillin [From Augmentin] Allergy Anaphylaxis Verified 01/31/25 10:33 /rash/hives cefprozil [From Cefzil] Allergy Anaphylaxis Verified 01/31/25 10:33 /rash/hives clavulanic acid Allergy Anaphylaxis Verified 01/31/25 10:33 [From Augmentin] /rash/hives sulfamethoxazole Allergy Anaphylaxis Verified 01/31/25 10:33 [From Bactrim] /rash/hives trimethoprim [From Bactrim] Allergy Anaphylaxis Verified 01/31/25 10:33 /rash/hives Physical Exam Vitals: Vital Signs Temp Pulse Resp BP Pulse Ox 02/01/25 07:52 98.3 F 71 16 171/105 91 L 02/01/25 06:21 97.9 F 68 16 158/93 92 L 01/31/25 22:41 67 16 138/90 98 01/31/25 18:30 73 16 153/92 95 01/31/25 17:26 98 F 69 18 150/103 98 01/31/25 16:00 70 16 130/89 97 01/31/25 14:00 66 18 113/65 95 01/31/25 12:00 67 18 139/84 100 Intake and Output 01/31/25 02/01/25 02/01/25 22:59 06:59 14:59 Intake Total 123.864 86.877 Output Total 900 Balance 123.864 86.877 -900 Intake: Intake, IV Titration 123.864 86.877 Amount Heparin Sod,Pork in 0.45% 123.864 86.877 NaCl 25,000 unit In 0.45 % NaCl 1 250ml.bag @ 11 UNITS/KG/HR 9.979 mls/hr IV .Q24H [facility] Rx#: [id number] Output: Urine 900 Uretheral ([place]) 900 General appearance: The patient is alert, oriented, appears in no acute distress. HET: Head is normocephalic and atraumatic. Conjunctiva pink. Sclera anicteric. Neck: Supple without lymphadenopathy. Trachea midline. Heart: Regular. Lungs: Equal expansion, normal respiratory effort. Abdomen: Soft, nontender, nondistended. Skin: No rashes. No jaundice. Extremities: Normal skin color and turgor. No pedal edema. Neurological: No focal deficits. Alert and oriented x3. Results CBC & Chem 7: 02/01/25 02:30 02/01/25 02:30 Labs: Abnormal Lab Results - Last 24 Hours (Table) 01/31/25 01/31/25 01/31/25 Range/Units 10:57 12:09 15:44 WBC 12.22 H (4.50-10.00) 10*3/uL RBC 3.49 L (4.10-5.20) 10*6/uL Hgb 11.1 L (12.0-15.0) g/dL Hct 32.0 L (37.2-46.3) % Plt Count 59 L (140-440) 10*3/uL MPV (9.5-12.2) fL Immature Gran # 0.18 H (0.00-0.04) 10*3/uL Neutrophils # 8.67 H (1.80-7.70) 10*3/uL Monocytes # 1.49 H (0.20-1.00) 10*3/uL Immature Plt Fraction (1.1-6.1) % PT 13.8 H (10.0-12.5) sec INR 1.3 H (<1.2) Sodium (137-145) mmol/L Potassium 5.3 H (3.5-5.1) mmol/L BUN (7-17) mg/dL Creatinine (0.52-1.04) mg/dL Glucose (74-99) mg/dL POC Glucose (mg/dL) (70-110) mg/dL Osmolality (275-295) mOsm/kg AST (14-36) U/L ALT (4-34) U/L Alkaline Phosphatase (38-126) U/L Troponin I (0.000-0.034) ng/mL Total Protein (6.3-8.2) g/dL Albumin (3.5-5.0) g/dL Urine Appearance (Clear) Urine Protein (Negative) Ur Leukocyte Esterase (Negative) Urine WBC (0-5) /hpf Urine Bacteria (None) /hpf Urine Mucus (None) /hpf Ur Random Sodium (40-220) mmol/L 01/31/25 01/31/25 01/31/25 Range/Units 15:44 15:44 18:00 WBC (4.50-10.00) 10*3/uL RBC (4.10-5.20) 10*6/uL Hgb (12.0-15.0) g/dL Hct (37.2-46.3) % Plt Count (140-440) 10*3/uL MPV (9.5-12.2) fL Immature Gran # (0.00-0.04) 10*3/uL Neutrophils # (1.80-7.70) 10*3/uL Monocytes # (0.20-1.00) 10*3/uL Immature Plt Fraction (1.1-6.1) % PT (10.0-12.5) sec INR (<1.2) Sodium (137-145) mmol/L Potassium (3.5-5.1) mmol/L BUN (7-17) mg/dL Creatinine (0.52-1.04) mg/dL Glucose (74-99) mg/dL POC Glucose (mg/dL) (70-110) mg/dL Osmolality 298 H (275-295) mOsm/kg AST (14-36) U/L ALT (4-34) U/L Alkaline Phosphatase (38-126) U/L Troponin I 6.630 H* (0.000-0.034) ng/mL Total Protein (6.3-8.2) g/dL Albumin (3.5-5.0) g/dL Urine Appearance Cloudy H (Clear) Urine Protein Trace H (Negative) Ur Leukocyte Esterase Trace H (Negative) Urine WBC 10 H (0-5) /hpf Urine Bacteria Rare H (None) /hpf Urine Mucus Rare H (None) /hpf Ur Random Sodium (40-220) mmol/L 01/31/25 02/01/25 02/01/25 Range/Units 18:00 02:30 02:30 WBC 10.92 H (4.50-10.00) 10*3/uL RBC 3.00 L (4.10-5.20) 10*6/uL Hgb 9.6 L D (12.0-15.0) g/dL Hct 28.4 L (37.2-46.3) % Plt Count 57 L (140-440) 10*3/uL MPV 13.4 H (9.5-12.2) fL Immature Gran # 0.52 H (0.00-0.04) 10*3/uL Neutrophils # (1.80-7.70) 10*3/uL Monocytes # 1.31 H (0.20-1.00) 10*3/uL Immature Plt Fraction 11.0 H (1.1-6.1) % PT (10.0-12.5) sec INR (<1.2) Sodium 133 L (137-145) mmol/L Potassium (3.5-5.1) mmol/L BUN 44 H (7-17) mg/dL Creatinine 2.21 H (0.52-1.04) mg/dL Glucose 175 H (74-99) mg/dL POC Glucose (mg/dL) (70-110) mg/dL Osmolality (275-295) mOsm/kg AST 2108 H (14-36) U/L ALT 2230 H (4-34) U/L Alkaline Phosphatase 140 H (38-126) U/L Troponin I (0.000-0.034) ng/mL Total Protein 5.6 L (6.3-8.2) g/dL Albumin 3.4 L (3.5-5.0) g/dL Urine Appearance (Clear) Urine Protein (Negative) Ur Leukocyte Esterase (Negative) Urine WBC (0-5) /hpf Urine Bacteria (None) /hpf Urine Mucus (None) /hpf Ur Random Sodium 24 L (40-220) mmol/L 02/01/ Range/Units 07:48 WBC (4.50-10.00) 10*3/uL RBC (4.10-5.20) 10*6/uL Hgb (12.0-15.0) g/dL Hct (37.2-46.3) % Plt Count (140-440) 10*3/uL MPV (9.5-12.2) fL Immature Gran # (0.00-0.04) 10*3/uL Neutrophils # (1.80-7.70) 10*3/uL Monocytes # (0.20-1.00) 10*3/uL Immature Plt Fraction (1.1-6.1) % PT (10.0-12.5) sec INR (<1.2) Sodium (137-145) mmol/L Potassium (3.5-5.1) mmol/L BUN (7-17) mg/dL Creatinine (0.52-1.04) mg/dL Glucose (74-99) mg/dL POC Glucose (mg/dL) 144 H (70-110) mg/dL Osmolality (275-295) mOsm/kg AST (14-36) U/L ALT (4-34) U/L Alkaline Phosphatase (38-126) U/L Troponin I (0.000-0.034) ng/mL Total Protein (6.3-8.2) g/dL Albumin (3.5-5.0) g/dL Urine Appearance (Clear) Urine Protein (Negative) Ur Leukocyte Esterase (Negative) Urine WBC (0-5) /hpf Urine Bacteria (None) /hpf Urine Mucus (None) /hpf Ur Random Sodium (40-220) mmol/L Assessment and Plan (1) Acute hepatitis Narrative/Plan: 74-year-old female presenting with hyperglycemia, hypotension with ventricular tachycardia status post cardioversion with amiodarone drip with transaminitis secondary to acute ischemic hepatitis from shock liver. CT abdomen pelvis reporting gallbladder stones and sludge however patient is asymptomatic and abdominal ultrasound states likely dealing with a gallbladder polyp rather than stone near the neck, nonetheless the significant elevation of LFTs is not cons istent with choledocholithiasis. Avoid hepatotoxic medications. Continue to monitor LFTs. No further workup at this time. Current Visit: Yes Status: Acute Code(s): B17.9 - ACUTE VIRAL HEPATITIS, UNSPECIFIED SNOMED Code(s): 07356500 (2) Elevated LFTs Current Visit: Yes Status: Acute Code(s): R79.89 - OTHER SPECIFIED ABNORMAL FINDINGS OF BLOOD CHEMISTRY SNOMED Code(s): 110907947 (3) Ventricular tachycardia Current Visit: Yes Status: Acute Code(s): I47.20 - VENTRICULAR TACHYCARDIA, UNSPECIFIED SNOMED Code(s): 48806265 (4) WENDY (acute kidney injury) Current Visit: No Status: Acute Code(s): N17.9 - ACUTE KIDNEY FAILURE, UNSPECIFIED SNOMED Code(s): 19259328 (5) CAD (coronary artery disease) Current Visit: No Status: Acute Code(s): I25.10 - ATHSCL HEART DISEASE OF [place] CORONARY ARTERY W/O ANG PCTRS SNOMED Code(s): 95570332 Plan: 1. Continue symptomatic and supportive care 2. Avoid hepatotoxic medications 3. Daily CBC, CMP 4. Diet as tolerated 5. Maintain optimal blood pressures 6. There is no indication for any further gastroenterology workup at this time Thank you for this consultation, we will continue to follow. Dr. Cristin Grewal I agree with the dictator's note, documented as a scribe by Niki Jimenez.
[2025-02-01 18:46] LABS: Glucose,Whole Blood 203 mg/dL (70-110)
[2025-02-01 19:59] LABS: Glucose,Whole Blood 278 mg/dL (70-110)
[2025-02-02 06:53] LABS: HCT 28.9 % (37.2-46.3); HGB 9.6 g/dL (12.0-15.0); MCH 31.3 pg (27.0-32.0); MCHC 33.2 g/dL (32.0-37.0); MCV 94.1 fL (80.0-97.0); RBC 3.07 10*6/uL (4.10-5.20); RDW 14.7 % (11.5-14.5)
[2025-02-02 07:07] LABS: INR 1.3 (<1.2); Prothrombin Time 13.7 sec (10.0-12.5)
[2025-02-02 07:25] LABS: African American GFR (CKD) 22 (>60 ml/min/1.73 sqM); Albumin 3.1 g/dL (3.5-5.0); Anion Gap 9 mmol/L; Blood Urea Nitrogen 51 mg/dL (7-17); Calcium 9.4 mg/dL (8.4-10.2); Carbon Dioxide 24 mmol/L (22-30); Chloride 97 mmol/L (98-107); Glucose 247 mg/dL (74-99); Magnesium 1.9 mg/dL (1.6-2.3); Non-African American GFR(CKD) 19 (>60 ml/min/1.73 sqM); Potassium 5.0 mmol/L (3.5-5.1); Sodium 130 mmol/L (137-145); Total Protein 5.1 g/dL (6.3-8.2)
--- NOTE | 2025-02-02 07:25 | P.CONS ---
History of Present Illness - Reason for Consult Consult date: 02/01/25 Possible cholecystitis evaluate for antibiotic Requesting physician: Anjel Butcher - Chief Complaint Shortness of breath palpitation x 1 day on admission - History of Present Illness Patient is a 74-year-old female with a past medical history significant for multiple comorbidity includingAsthma, Coronary Artery Disease (CAD), Chest Pain / Angina, Heart Failure, Diabetes Mellitus, GERD/Reflux, Hyperlipidemia, Hypertension, Myocardial Infarction (AK), Osteoarthritis (OA), Pneumonia, Renal Disease, Syncope patient was recently admitted to facility anteriorly for a complicated UTI with a urine culture positive for corynebacterium stratum from left nephrostomy tube treated with daptomycin subsequent sensitivity finalized sensitive to Zyvox and the patient was di scharged on oral Zyvox patient is now status post left nephrectomy because of nonfunctioning kidney patient has been brought to the hospital yesterday morning after the patient noticed to have palpitation/atrial fibrillation by the home care nurse patient apparently was evaluated at the outside facility with the patient was noted to be in ventricular tachycardia status post cardioversion did have amiodarone drip and subsequently transferred to this facility for further evaluation patient has been complaining of shortness of breath and has been complaining of pain to the left lower chest left-sided abdominal area and apparently the patient did have a fall few weeks ago and has multiple fractures to the left rib area patient denies having any fever or any chills patient denies having any headache or URI symptoms chest pain most of the left lower lobe chest and abdominal area as mentioned above some shortness of breath on exertion no significant cough or sputum production denies any diarrhea or constipation or pain to the right upper quadrant area on presentation to the hospital the patient was afebrile no fever have been called subsequently patient was not tachycardic hypotensive or hypoxic no need for supplemental oxygen patient did have a white count of 12.8 yesterday however is down to 10.92 today with some left shift he did have elevated BUN and creatinine did have elevated liver enzymes troponin has been positive urine has been relatively clear hepatitis C and C has been negative patient did have a chest x-ray chronic changes without acute pulmonary process abdominal pelvis CT small to moderate bilateral effusion with compressive atelectasis fractures of multiple left lower ribs with associated soft tissue gas of left abdominal lower chest wall subcutaneous soft tissue edema gallbladder is distended filled with sludge and contains a 4 mm stone in the neck patient did have an abdominal ultrasound there was a question of a stone versus polyp in the neck of the gallbladder CBC within normal limit and hepatic steatosis ID was consulted today concerning for possibl e cholecystitis and need for antibiotic therapy Review of Systems Positive point and negatives has been mentioned in the HPI, complete review of systems was performed and all other systems are negative Past Medical History Past Medical History: Asthma, Coronary Artery Disease (CAD), Chest Pain / Angina, Heart Failure, Diabetes Mellitus, GERD/Reflux, Hyperlipidemia, Hypertension, Myocardial Infarction (AK), Osteoarthritis (OA), Pneumonia, Renal Disease, Syncope Additional Past Medical History / Comment(s): [place] 1997, 2003, 2007, CARDIAC ARREST 2016,GOUT, SPINAL STENOSIS, BRONCHITIS, CONSTIPATION, HX OF DIZZINESS & FALLS, AORTIC STENOSIS, KIDNEY FAILURE STAGE 3-B, PACER/AICD, Fatigue, very SOB w/exertion recently. Aortic Valve Replacement Dec, 2019. 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 Date of Last Stent Placement:: UNKNOWN Type of Cardiac Device: AICD Device Placement Date:: 10-05-16 [facility] Past Psychological History: Anxiety, Depression Smoking Status: Never smoker Past Alcohol Use History: Occasional Past Drug Use History: None Reported - Past Family History Mother Family Medical History: No Reported History Additional Family Medical History / Comment(s): . Medications and Allergies Home Medications Medication Instructions Recorded Confirmed Type Famotidine [Pepcid] 20 mg PO HS 06/20/16 01/31/25 History Montelukast [Singulair] 10 mg PO HS 06/20/16 01/31/25 History allopurinoL [Zyloprim] 300 mg PO HS 06/20/16 01/31/25 History Evolocumab [Repatha Syringe] 140 mg SQ Q14D 10/05/19 01/31/25 History Insulin Glargine,Hum.rec.anlog 10 units SQ BID 02/21/23 01/31/25 History [Lantus Solostar Pen] Insulin Lispro [humaLOG Kwikpen] See Protocol SQ TID-W/MEALS 02/21/23 01/31/25 History Ranolazine [Ranexa] 500 mg PO BID 02/21/23 01/31/25 History Nystatin 100,000 Unit/gm Powd 1 applic TOPICAL BID 10/18/24 01/31/25 History [Mycostatin Powder] Acetaminophen Tab [Tylenol] 1,000 mg PO BID 01/05/25 01/31/25 History Acetaminophen Tab [Tylenol] 1,000 mg PO Q6HR PRN 01/05/25 01/31/25 History Isosorbide Mononitrate ER [Imdur] 60 mg PO BID 01/05/25 01/31/25 History Nystatin 100,000Unit/gm Cream 1 applic TOPICAL BID 01/05/25 01/31/25 History [Mycostatin Cream] Linezolid [Zyvox] 600 mg PO Q12H 12 Days #24 tab 01/15/25 01/31/25 Rx carvediloL [Coreg] 3.125 mg PO BID-W/MEALS 30 Days 01/15/25 01/31/25 Rx #60 tab polyethylene glycoL 3350 [Miralax] 17 gm PO HS #30 packet 01/15/25 01/31/25 Rx FLUoxetine HCL [PROzac] 20 mg PO DAILY 01/31/25 01/31/25 History Furosemide [Lasix] 20 mg PO DAILY 01/31/25 01/31/25 History HYDROcodone/APAP 5-325MG [[place] 1 tab PO Q6HR PRN 01/31/25 01/31/25 History 5-325] Lidocaine 5% Patch [Lidoderm] 1 patch TOPICAL DAILY 01/31/25 01/31/25 History Potassium Chloride 10 meq PO DAILY 01/31/25 01/31/25 History Allergies Allergy/AdvReac Type Severity Reaction Status Date / Time amoxicillin [From Augmentin] Allergy Anaphylaxis Verified 01/31/25 10:33 /rash/hives cefprozil [From Cefzil] Allergy Anaphylaxis Verified 01/31/25 10:33 /rash/hives clavulanic acid Allergy Anaphylaxis Verified 01/31/25 10:33 [From Augmentin] /rash/hives sulfamethoxazole Allergy Anaphylaxis Verified 01/31/25 10:33 [From Bactrim] /rash/hives trimethoprim [From Bactrim] Allergy Anaphylaxis Verified 01/31/25 10:33 /rash/hives Physical Exam Vitals: Vital Signs Temp Pulse Resp BP Pulse Ox 02/01/25 15:40 71 18 115/66 92 L 02/01/25 13:08 66 18 139/78 94 L 02/01/25 12:13 86 18 160/72 96 02/01/25 07:52 98.3 F 71 16 171/105 91 L 02/01/25 06:21 97.9 F 68 16 158/93 92 L 01/31/25 22:41 67 16 138/90 98 01/31/25 18:30 73 16 153/92 95 01/31/25 17:26 98 F 69 18 150/103 98 Intake and Output 02/01/25 02/01/25 02/01/25 06:59 14:59 22:59 Intake Total 86.877 Output Total 900 Balance 86.877 -900 Intake: Intake, IV Titration 86.877 Amount Heparin Sod,Pork in 0.45% 86.877 NaCl 25,000 unit In 0.45 % NaCl 1 250ml.bag @ 11 UNITS/KG/HR 9.979 mls/hr IV .Q24H [facility] Rx#: [id number] Output: Urine 900 Uretheral ([place]) 900 GENERAL DESCRIPTION: Elderly female lying in bed, no distress. No tachypnea or accessory muscle of respiration use. HEENT: Shows Pallor , no scleral icterus. Oral mucous membrane is dry. No pharyngeal erythema or thrush NECK: Trachea central, no thyromegaly. LUNGS: Unlabored breathing. Creased breath sound at the base HEART: S1, S2, regular rate and rhythm. No loud murmur ABDOMEN: Soft, left-sided abdominal tenderness EXTREMITIES: No edema of feet. SKIN: No rash, no masses palpable. NEUROLOGICAL: The patient is awake, alert, oriented x3, mood and affect normal. Results CBC & Chem 7: 02/01/25 02:30 02/01/25 02:30 Labs: Abnormal Lab Results - Last 24 Hours (Table) 01/31/25 01/31/25 01/31/25 Range/Units 15:44 15:44 15:44 WBC (4.50-10.00) 10*3/uL RBC (4.10-5.20) 10*6/uL Hgb (12.0-15.0) g/dL Hct (37.2-46.3) % Plt Count (140-440) 10*3/uL MPV (9.5-12.2) fL Immature Gran # (0.00-0.04) 10*3/uL Monocytes # (0.20-1.00) 10*3/uL Immature Plt Fraction (1.1-6.1) % Sodium (137-145) mmol/L Potassium 5.3 H (3.5-5.1) mmol/L BUN (7-17) mg/dL Creatinine (0.52-1.04) mg/dL Glucose (74-99) mg/dL POC Glucose (mg/dL) (70-110) mg/dL Osmolality 298 H (275-295) mOsm/kg AST (14-36) U/L ALT (4-34) U/L Alkaline Phosphatase (38-126) U/L Troponin I 6.630 H* (0.000-0.034) ng/mL Total Protein (6.3-8.2) g/dL Albumin (3.5-5.0) g/dL Urine Appearance (Clear) Urine Protein (Negative) Ur Leukocyte Esterase (Negative) Urine WBC (0-5) /hpf Urine Bacteria (None) /hpf Urine Mucus (None) /hpf Ur Random Sodium (40-220) mmol/L 01/31/25 01/31/25 02/01/25 Range/Units 18:00 18:00 02:30 WBC 10.92 H (4.50-10.00) 10*3/uL RBC 3.00 L (4.10-5.20) 10*6/uL Hgb 9.6 L D (12.0-15.0) g/dL Hct 28.4 L (37.2-46.3) % Plt Count 57 L (140-440) 10*3/uL MPV 13.4 H (9.5-12.2) fL Immature Gran # 0.52 H (0.00-0.04) 10*3/uL Monocytes # 1.31 H (0.20-1.00) 10*3/uL Immature Plt Fraction 11.0 H (1.1-6.1) % Sodium (137-145) mmol/L Potassium (3.5-5.1) mmol/L BUN (7-17) mg/dL Creatinine (0.52-1.04) mg/dL Glucose (74-99) mg/dL POC Glucose (mg/dL) (70-110) mg/dL Osmolality (275-295) mOsm/kg AST (14-36) U/L ALT (4-34) U/L Alkaline Phosphatase (38-126) U/L Troponin I (0.000-0.034) ng/mL Total Protein (6.3-8.2) g/dL Albumin (3.5-5.0) g/dL Urine Appearance Cloudy H (Clear) Urine Protein Trace H (Negative) Ur Leukocyte Esterase Trace H (Negative) Urine WBC 10 H (0-5) /hpf Urine Bacteria Rare H (None) /hpf Urine Mucus Rare H (None) /hpf Ur Random Sodium 24 L (40-220) mmol/L 02/01/25 02/01/25 Range/Units 02:30 07:48 WBC (4.50-10.00) 10*3/uL RBC (4.10-5.20) 10*6/uL Hgb (12.0-15.0) g/dL Hct (37.2-46.3) % Plt Count (140-440) 10*3/uL MPV (9.5-12.2) fL Immature Gran # (0.00-0.04) 10*3/uL Monocytes # (0.20-1.00) 10*3/uL Immature Plt Fraction (1.1-6.1) % Sodium 133 L (137-145) mmol/L Potassium (3.5-5.1) mmol/L BUN 44 H (7-17) mg/dL Creatinine 2.21 H (0.52-1.04) mg/dL Glucose 175 H (74-99) mg/dL POC Glucose (mg/dL) 144 H (70-110) mg/dL Osmolality (275-295) mOsm/kg AST 2108 H (14-36) U/L ALT 2230 H (4-34) U/L Alkaline Phosphatase 140 H (38-126) U/L Troponin I (0.000-0.034) ng/mL Total Protein 5.6 L (6.3-8.2) g/dL Albumin 3.4 L (3.5-5.0) g/dL Urine Appearance (Clear) Urine Protein (Negative) Ur Leukocyte Esterase (Negative) Urine WBC (0-5) /hpf Urine Bacteria (None) /hpf Urine Mucus (None) /hpf Ur Random Sodium (40-220) mmol/L Assessment and Plan (1) Elevated liver enzymes Current Visit: Yes Status: Acute Code(s): R74.8 - ABNORMAL LEVELS OF OTHER SERUM ENZYMES SNOMED Code(s): 330459324 (2) Leukocytosis Current Visit: Yes Status: Acute Code(s): D72.829 - ELEVATED WHITE BLOOD CELL COUNT, UNSPECIFIED SNOMED Code(s): 626121431 (3) Allergy to multiple antibiotics Current Visit: No Status: Acute Code(s): Z88.1 - ALLERGY STATUS TO OTHER ANTIBIOTIC AGENTS SNOMED Code(s): 229112868 Plan: 1patient with multiple comorbidities in this patient was status post left nephrectomy now presented to the hospital with palpitation shortness of breath patient was noticed to be in ventricular tachycardia requiring cardioversion and amiodarone now with evidence of worsening liver enzymes there was concern for some abnormality to the gallbladder however the patient currently does not have any pain to the right upper quadrant area or any tenderness and elevated liver enzymes more likely related to the passive congestion from her cardiac condition 2-patient with multiple antibiotic ALLERGIES that would limit the number of antibiotic safe to use 3-we will check inflammatory markers 4-for now hold on any systemic liver therapy as clinical suspicion is low for cholangitis or cholecystitis Family at the bedside multiple questions Answered We will follow on clinical condition and cultures to further adjust medication if needed Thank you for this consultation we will follow the patient along with you Dictation was produced using R17ation software. please excuse any grammatical, word or spelling errors. Time with Patient: Greater than 30
[2025-02-02 07:30] LABS: ALT 1678 U/L (4-34)
[2025-02-02 07:35] LABS: AST 785 U/L (14-36); Alkaline Phosphatase 157 U/L (38-126)
[2025-02-02 07:47] LABS: Platelet Count 111 10*3/uL (140-440)
[2025-02-02 08:23] LABS: Glucose,Whole Blood 266 mg/dL (70-110)
--- NOTE | 2025-02-02 10:54 | P.PN ---
Subjective Progress Note Date: 02/02/25 Principal diagnosis: Transaminitis This is a pleasant 74-year-old female with multiple comorbidities including diabetes mellitus, coronary artery disease with multiple stents, heart failure, hyperlipidemia, hypertension, myocardial infarction, aortic valve replacement, chronic kidney disease who underwent a left nephrectomy about a week ago who presented to the emergency department yesterday with elevated blood sugars since her surgery. Patient is admitted with multiple consultants. Was noted to have ventricular tachycardia during her emergency room visit and underwent c ardioversion on 01/31/2025. She was noted to have elevated troponin on admission with significant increase in 01/31/2025. Also noted on admission to be hypotensive with blood pressures in the 60s over 40s. On admission she was noted to have elevated total bilirubin 1.4 AST 644 ALT 516 alkaline phosphatase 114 with continued elevation with a repeat today of 1.321 03/26/1929 140 respectively. Gastroenterology was consulted secondary to transaminitis and patient also had CT scan that reported gallstones and gall sludge and possible gallstone in the gallbladder neck. Patient denies any abdominal pain, nausea or vomiting. She has not been having any right upper quadrant abdominal pain. Denies any history of liver disease. Hepatitis panel is nonreactive. Also noted to be thrombocytopenic with leukocytosis on admission as well. 02/02/2025 Patient seen and examined today as a follow-up. Denies any abdominal pain in the right upper quadrant. Patient has quite a bit of extensive bruising and hematoma to the left side of her abdomen and arm from previous fall. States just a generalized full feeling. No nausea or vomiting. She has been afebrile. Today's labs WBC 14.9 hemoglobin 9.6 platelet count 111,000 INR 1.3 total bilirubin 1.2 AST 785 ALT 1678 alkaline phosphatase 157 Objective - Vital Signs Vital signs: Vital Signs Temp 98.2 F 02/02/25 08:20 Pulse 69 02/02/25 08:20 Resp 15 02/02/25 08:20 BP 99/62 02/02/25 08:20 Pulse Ox 94 L 02/02/25 08:20 FiO2 Intake & Output 02/01/25 02/02/25 02/02/25 18:59 06:59 18:59 Output Total 900 200 Balance -900 -200 Weight 66 kg Output: Urine 900 200 Uretheral ([place]) 900 Other: Voiding Method External Catheter Indwelling Catheter - Exam General appearance: The patient is alert, oriented, appears in no acute distress. HET: Head is normocephalic and atraumatic. Conjunctiva pink. Sclera anicteric. Neck: Supple without lymphadenopathy. Abdomen: Soft, nontender right upper quadrant and epigastric region, tenderness along left lateral abdomen over bruising and hematoma, nondistended. Extremities: Normal skin color and turgor. No pedal edema Skin: No rashes, no jaundice Neurological: No focal deficits. Alert and oriented. - Labs CBC & Chem 7: 02/02/25 05:47 02/02/25 05:47 Labs: Abnormal Lab Results - Last 24 Hours (Table) 02/01/25 02/01/25 02/02/25 Range/Units 18:45 19:58 05:47 WBC (4.50-10.00) 10*3/uL RBC (4.10-5.20) 10*6/uL Hgb (12.0-15.0) g/dL Hct (37.2-46.3) % Plt Count (140-440) 10*3/uL MPV (9.5-12.2) fL Immature Gran # (0.00-0.04) 10*3/uL PT (10.0-12.5) sec INR (<1.2) Sodium 130 L (137-145) mmol/L Chloride 97 L (98-107) mmol/L BUN 51 H (7-17) mg/dL Creatinine 2.45 H (0.52-1.04) mg/dL Glucose 247 H (74-99) mg/dL POC Glucose (mg/dL) 203 H 278 H (70-110) mg/dL AST 785 H (14-36) U/L ALT 1678 H (4-34) U/L Alkaline Phosphatase 157 H (38-126) U/L C-Reactive Protein 6.1 H (<1.0) mg/dL Total Protein 5.1 L (6.3-8.2) g/dL Albumin 3.1 L (3.5-5.0) g/dL 02/02/25 02/02/25 02/02/25 Range/Units 05:47 05:47 08:22 WBC 14.98 H (4.50-10.00) 10*3/uL RBC 3.07 L (4.10-5.20) 10*6/uL Hgb 9.6 L (12.0-15.0) g/dL Hct 28.9 L (37.2-46.3) % Plt Count 111 L D (140-440) 10*3/uL MPV 12.5 H (9.5-12.2) fL Immature Gran # 1.80 H (0.00-0.04) 10*3/uL PT 13.7 H (10.0-12.5) sec INR 1.3 H (<1.2) Sodium (137-145) mmol/L Chloride (98-107) mmol/L BUN (7-17) mg/dL Creatinine (0.52-1.04) mg/dL Glucose (74-99) mg/dL POC Glucose (mg/dL) 266 H (70-110) mg/dL AST (14-36) U/L ALT (4-34) U/L Alkaline Phosphatase (38-126) U/L C-Reactive Protein (<1.0) mg/dL Total Protein (6.3-8.2) g/dL Albumin (3.5-5.0) g/dL Assessment and Plan (1) Acute hepatitis Narrative/Plan: 74-year-old female presenting with hyperglycemia, hypotension with ventricular tachycardia status post cardioversion with amiodarone drip with transaminitis secondary to acute ischemic hepatitis from shock liver. CT abdomen pelvis reporting gallbladder stones and sludge however patient is asymptomatic and abdominal ultrasound states likely dealing with a gallbladder polyp rather than stone near the neck, nonetheless the significant elevation of LFTs is not cons istent with choledocholithiasis. Avoid hepatotoxic medications. Continue to monitor LFTs. LFTs are trending down, continue to monitor LFTs. Avoid hepatotoxic medications. No further workup at this time. Current Visit: Yes Status: Acute Code(s): B17.9 - ACUTE VIRAL HEPATITIS, UNSPECIFIED SNOMED Code(s): 55782554 (2) Elevated LFTs Current Visit: Yes Status: Acute Code(s): R79.89 - OTHER SPECIFIED ABNORMAL FINDINGS OF BLOOD CHEMISTRY SNOMED Code(s): 766290961 (3) Ventricular tachycardia Current Visit: Yes Status: Acute Code(s): I47.20 - VENTRICULAR TACHYCARDIA, UNSPECIFIED SNOMED Code(s): 43547441 (4) WENDY (acute kidney injury) Current Visit: No Status: Acute Code(s): N17.9 - ACUTE KIDNEY FAILURE, UNSPECIFIED SNOMED Code(s): 55758792 (5) CAD (coronary artery disease) Current Visit: No Status: Acute Code(s): I25.10 - ATHSCL HEART DISEASE OF COUNCIL CORONARY ARTERY W/O ANG PCTRS SNOMED Code(s): 71522449 Plan: 1. Continue symptomatic and supportive care 2. Avoid hepatotoxic medications 3. Daily CMP 4. Diet as tolerated 5. Maintain optimal blood pressures 6. There is no indication for any further gastroenterology workup at this time Thank you for this consultation, we will continue to follow. Dr. Cristin Grewal I agree with the dictator's note, documented as a scribe by Niki Jimenez.
[2025-02-02 11:36] LABS: Glucose,Whole Blood 328 mg/dL (70-110)
[2025-02-02 12:47] LABS: Neutrophils % (M) 84 %
[2025-02-02 12:48] LABS: Eosinophils # (M) 0.28 k/uL (0-0.7); Lymphocytes # (M) 0.98 k/uL (1.0-4.8); Monocytes # (M) 0.84 k/uL (0-1.0); Myelocytes # (M) 0.42 k/uL (0); Neutrophils # (M) 11.76 k/uL (1.3-7.7); Total Cells Counted 200; WBC 14.00 10*3/uL (4.50-10.00)
--- NOTE | 2025-02-02 12:54 | P.PN ---
Subjective Progress Note Date: 02/02/25 Patient is seen in follow-up for acute kidney injury on chronic kidney disease. She complains of fatigue, SOB, bilateral LE swelling, and loss of appetite. She denies chest pain. She also complains of L sided abdominal tenderness, although attributes this to her fall earlier this month. On IV lasix 40mg daily. Vital signs are stable. General: The patient no acute distress. HEENT: Head exam is unremarkable. LUNGS: No audible rhonchi or wheezes. HEART: Rate and Rhythm are regular. ABDOMEN: L sided abdominal tenderness EXTREMITITES: 1+ pitting edema. Objective - Vital Signs Vital signs: Vital Signs Temp 99.2 F 02/02/25 03:17 Pulse 64 02/02/25 03:17 Resp 16 02/02/25 03:17 BP 98/62 02/02/25 03:17 Pulse Ox 92 L 02/02/25 03:17 FiO2 Intake & Output 02/01/25 02/02/25 02/02/25 18:59 06:59 18:59 Output Total 900 200 Balance -900 -200 Weight 66 kg Output: Urine 900 200 Uretheral ([place]) 900 Other: Voiding Method External Catheter - Labs CBC & Chem 7: 02/02/25 05:47 02/02/25 05:47 Labs: Abnormal Lab Results - Last 24 Hours (Table) 02/01/25 02/01/25 02/02/25 Range/Units 18:45 19:58 05:47 WBC (4.50-10.00) 10*3/uL RBC (4.10-5.20) 10*6/uL Hgb (12.0-15.0) g/dL Hct (37.2-46.3) % Plt Count (140-440) 10*3/uL MPV (9.5-12.2) fL Immature Gran # (0.00-0.04) 10*3/uL PT (10.0-12.5) sec INR (<1.2) Sodium 130 L (137-145) mmol/L Chloride 97 L (98-107) mmol/L BUN 51 H (7-17) mg/dL Creatinine 2.45 H (0.52-1.04) mg/dL Glucose 247 H (74-99) mg/dL POC Glucose (mg/dL) 203 H 278 H (70-110) mg/dL AST 785 H (14-36) U/L ALT 1678 H (4-34) U/L Alkaline Phosphatase 157 H (38-126) U/L C-Reactive Protein 6.1 H (<1.0) mg/dL Total Protein 5.1 L (6.3-8.2) g/dL Albumin 3.1 L (3.5-5.0) g/dL 02/02/25 02/02/25 Range/Units 05:47 05:47 WBC 14.98 H (4.50-10.00) 10*3/uL RBC 3.07 L (4.10-5.20) 10*6/uL Hgb 9.6 L (12.0-15.0) g/dL Hct 28.9 L (37.2-46.3) % Plt Count 111 L D (140-440) 10*3/uL MPV 12.5 H (9.5-12.2) fL Immature Gran # 1.80 H (0.00-0.04) 10*3/uL PT 13.7 H (10.0-12.5) sec INR 1.3 H (<1.2) Sodium (137-145) mmol/L Chloride (98-107) mmol/L BUN (7-17) mg/dL Creatinine (0.52-1.04) mg/dL Glucose (74-99) mg/dL POC Glucose (mg/dL) (70-110) mg/dL AST (14-36) U/L ALT (4-34) U/L Alkaline Phosphatase (38-126) U/L C-Reactive Protein (<1.0) mg/dL Total Protein (6.3-8.2) g/dL Albumin (3.5-5.0) g/dL Assessment and Plan Plan: Assessment: 1. Acute kidney injury secondary to ATN secondary to diuresis and hemodynamic instability. Creatinine 2.4 today. UA fairly benign. No hydronephrosis noted on ultrasound. 2. Chronic kidney disease stage IV secondary to solitary kidney with recent creatinine 1.7-1.9. 3. V. tach status post amiodarone drip. 4. Hyperkalemia secondary to acidosis, chronic kidney disease, potassium supplementation and hyperglycemia. Improved. 5. Shock liver. 6. Metabolic acidosis secondary to acute kidney injury. Better. On oral bicarb. 7. Volume overload. 8. Diabetes mellitus. 9. Urinary retention. Has gaston catheter. Plan: Maintain IV lasix 40 mg daily Leave in gaston catheter Check Ferritin and iron profile Order CXR Avoid nephrotoxins Continue to monitor renal function and urine output Void trial planned before d/c Anton Kuo MD Internal Medicine PGY1 Nephrology service I have seen and examined the patient with resident and agree with A&P as written. On room air. Will repeat CXR and maintain IV lasix.
--- NOTE | 2025-02-02 13:50 | P.PN ---
Subjective Progress Note Date: 02/02/25 The patient was seen and evaluated this morning. She still feeling congested but no symptoms of chest pain or chest discomfort. She has been maintaining sinus rhythm on the current dose of amiodarone. Her liver function test are elevated. Will follow-up with the trend of liver function test and continue tapering down the dose of amiodarone. Beside that the pressure is elevated. I am going to increase the dose of carvedilol. Heparin will be discontinued later on today. Echo will be ordered as well. The physical examination is remarkable for distant heart sounds with regular rate and rhythm and soft systolic murmur and diminished breathing sounds bilaterally and mild bilateral lower extremities edema 02/02/2025 Patient seen and examined. Patient states that she is feeling better today. S he has been maintaining a sinus rhythm. She continues to have lower extremity edema. Blood pressure is on the low side. Renal function has worsened. Blood pressure 99/62, heart rate 69, pulse ox 94% on room air. Repeat blood work reveals WBC 14, hemoglobin 9.6, INR 1.3. BUN 51 creatinine 2.45. AST 785, ALT 1678, alkaline phosphatase 157. C-reactive protein 6.1. Echocardiogram is pending. The physical examination is remarkable for distant heart sounds with regular rate and rhythm and soft systolic murmur and diminished breathing sounds bilaterally and mild bilateral lower extremities edema FINAL ASSESSMENT AND PLAN: Ventricular tachycardia Congestive heart failure Ischemic cardiomyopathy Status post AICD History of multivessel coronary artery disease Chronic kidney disease Status post nephrectomy Acute kidney injury PLAN: Continue amiodarone orally Continue monitoring the liver function test Taper down the dose of amiodarone Increase the dose of carvedilol Follow-up with the patient Follow-up with the echocardiogram Nurse practitioner note has been reviewed, I agree with documented findings and plan of care. Patient was seen and examined. Objective - Vital Signs Vital signs: Vital Signs Temp 99.2 F 02/02/25 03:17 Pulse 64 02/02/25 03:17 Resp 16 02/02/25 03:17 BP 98/62 02/02/25 03:17 Pulse Ox 92 L 02/02/25 03:17 FiO2 Intake & Output 02/01/25 02/02/25 02/02/25 18:59 06:59 18:59 Output Total 900 200 Balance -900 -200 Weight 66 kg Output: Urine 900 200 Uretheral ([place]) 900 Other: Voiding Method External Catheter - Labs CBC & Chem 7: 02/02/25 05:47 02/02/25 05:47 Labs: Abnormal Lab Results - Last 24 Hours (Table) 02/01/25 02/01/25 02/02/25 Range/Units 18:45 19:58 05:47 WBC (4.50-10.00) 10*3/uL RBC (4.10-5.20) 10*6/uL Hgb (12.0-15.0) g/dL Hct (37.2-46.3) % Plt Count (140-440) 10*3/uL MPV (9.5-12.2) fL Immature Gran # (0.00-0.04) 10*3/uL PT (10.0-12.5) sec INR (<1.2) Sodium 130 L (137-145) mmol/L Chloride 97 L (98-107) mmol/L BUN 51 H (7-17) mg/dL Creatinine 2.45 H (0.52-1.04) mg/dL Glucose 247 H (74-99) mg/dL POC Glucose (mg/dL) 203 H 278 H (70-110) mg/dL AST 785 H (14-36) U/L ALT 1678 H (4-34) U/L Alkaline Phosphatase 157 H (38-126) U/L C-Reactive Protein 6.1 H (<1.0) mg/dL Total Protein 5.1 L (6.3-8.2) g/dL Albumin 3.1 L (3.5-5.0) g/dL 02/02/25 02/02/25 Range/Units 05:47 05:47 WBC 14.98 H (4.50-10.00) 10*3/uL RBC 3.07 L (4.10-5.20) 10*6/uL Hgb 9.6 L (12.0-15.0) g/dL Hct 28.9 L (37.2-46.3) % Plt Count 111 L D (140-440) 10*3/uL MPV 12.5 H (9.5-12.2) fL Immature Gran # 1.80 H (0.00-0.04) 10*3/uL PT 13.7 H (10.0-12.5) sec INR 1.3 H (<1.2) Sodium (137-145) mmol/L Chloride (98-107) mmol/L BUN (7-17) mg/dL Creatinine (0.52-1.04) mg/dL Glucose (74-99) mg/dL POC Glucose (mg/dL) (70-110) mg/dL AST (14-36) U/L ALT (4-34) U/L Alkaline Phosphatase (38-126) U/L C-Reactive Protein (<1.0) mg/dL Total Protein (6.3-8.2) g/dL Albumin (3.5-5.0) g/dL
[2025-02-02 14:07] LABS: Glucose,Whole Blood 355 mg/dL (70-110)
--- NOTE | 2025-02-02 14:57 | P.PN ---
Subjective Progress Note Date: 02/02/25 Principal diagnosis: Weakness, Fall, upper and lower extremity edema. Hx of nephrectomy, fall, CHF Subjective: Progress Note Date: 02/01/25 patient 74-year-old lady with past medical history significant for coronary artery disease, heart failure, hyperlipidemia, hypertension who presented the ER for elevated blood sugar levels. Patient stated recently she had nephrectomy done at another facility, following that patient was recuperating well. There w as no complaint of any abdominal pain. Patient denies any nausea or vomiting. There was no complaint of chest pain. Patient denies any complain of palpitations. There was no complaint of orthopnea or PND. Patient denies any complaint of dizziness. There is no complaint of headache. Patient checked her blood sugars at home and was found to be elevated and decided to come to the ER. Initial lab work done in the ER showed WBC 10.93, hemoglobin 10.9, platelet count 84, sodium 131, potassium 5.7, BUN 37, creatinine 1.92, glucose 239, bilirubin 1.4 AST 644, ALT 516 troponin 0.922 proBNP 73425 Chest x-ray done in the ERShowed chronic changes without acute pulmonary CT abdomen pelvis done showed small to moderate bilateral pleural effusion with compressive atelectasis, fractures of multiple left lower ribs. Mild anasarca. Gallbladder is underdistended filled with hyperdense sludge and contains a 4 mm stone in the neck Initial EKG showing patient to be in V. tach, initially patient was hemodynamic stable and was started on amiodarone drip, following that patient became hypotensive and had to be cardioverted with 100 J. Patient admitted to internal medicine service 02/01. Patient seen and examined. Vital signs show temperature 98.3, heart rate 71, blood pressure 171/105, currently on room air. Labs reviewed this morning showing WBC 10.92, hemoglobin 9.6, sodium 133, potassium 5.1, AST 2108, ALT 2230. Denies abdominal pain. Has swelling of upper extremities denies any shortness of breath at rest. 02/02 Patient seen at bedside. Overnight team reported little urine output overnight via gaston on 40mg of Lasix QD. Still feeling weakness, shortness of breath, feeling edemetous, does not feel like she can walk. Pertinent positives and negatives discussed above, a complete review of systems was preformed and all the other sytems were negative. General: non toxic, no distress, appears at stated age, AOx3, slow to respond to questions, unsure of dates,. Derm: no unusual rashes/lesions, warm Head: atraumatic, normocephalic, symmetric Eyes: EOMI, no lid lag, anicteric sclera, pupils equal round reactive to light ENT: Nose and ears atraumatic Neck: No cervical lymphadenopathy, trachea midline, supple, no JVD Mouth: no lip lesion, mucus membranes moist Cardiovascular: S1S2 reg, no murmur, positive dorsalis pedis pulse bilateral, 2+ edema of the upper and lower extremities, skin tense, Lungs: Decreased air entry bilaterally, no rhonchi, no rales, no accessory muscle use Abdominal: soft, nontender to palpation, no guarding Ext: muscle strength 4 out of 5 in all 4 extremities grossly, no gross muscle atrophy, no contractures, Neuro: CN II-XI grossly intact, no gross focal neuro deficits Assessment and plan #Drug Induced Liver Injury with Elevated LFT Avoid hepatotoxic medications Daily CMP Diet as tolerated Maintain optimal blood pressures No further indication for GI #VTac and CAD Continue amiodarone orally Continue monitoring the liver function test Taper down the dose of amiodarone Increase the dose of carvedilol #Uncontrolled Blood Sugar Sliding scale insulin per protocol Basal Dose Lantus 10 BID Humolog 5 AC-TID DVT Prophylaxis GI Prophylaxis Full Code Attestation I have seen and examined this patient with my resident , discussed the same with the resident/AAMIR, and agree with the dictator's assessment and plan as written Dr. Anjel garcia Objective - Vital Signs Vital signs: Vital Signs Temp 98.2 F 02/02/25 08:20 Pulse 69 02/02/25 08:20 Resp 15 02/02/25 08:20 BP 99/62 02/02/25 08:20 Pulse Ox 94 L 02/02/25 08:20 FiO2 Intake & Output 02/01/25 02/02/25 02/02/25 18:59 06:59 18:59 Intake Total 60 Output Total 900 200 200 Balance -900 -200 -140 Weight 66 kg Intake: Oral 60 Output: Urine 900 200 200 Uretheral ([place]) 900 Other: Voiding Method External Catheter Indwelling Catheter - Labs CBC & Chem 7: 02/02/25 05:47 02/02/25 05:47 Labs: Abnormal Lab Results - Last 24 Hours (Table) 02/01/25 02/01/25 02/02/25 Range/Units 18:45 19:58 05:47 WBC (4.50-10.00) 10*3/uL RBC (4.10-5.20) 10*6/uL Hgb (12.0-15.0) g/dL Hct (37.2-46.3) % Plt Count (140-440) 10*3/uL MPV (9.5-12.2) fL Immature Gran # (0.00-0.04) 10*3/uL PT (10.0-12.5) sec INR (<1.2) Sodium 130 L (137-145) mmol/L Chloride 97 L (98-107) mmol/L BUN 51 H (7-17) mg/dL Creatinine 2.45 H (0.52-1.04) mg/dL Glucose 247 H (74-99) mg/dL POC Glucose (mg/dL) 203 H 278 H (70-110) mg/dL AST 785 H (14-36) U/L ALT 1678 H (4-34) U/L Alkaline Phosphatase 157 H (38-126) U/L C-Reactive Protein 6.1 H (<1.0) mg/dL Total Protein 5.1 L (6.3-8.2) g/dL Albumin 3.1 L (3.5-5.0) g/dL 02/02/25 02/02/25 02/02/25 Range/Units 05:47 05:47 08:22 WBC 14.98 H (4.50-10.00) 10*3/uL RBC 3.07 L (4.10-5.20) 10*6/uL Hgb 9.6 L (12.0-15.0) g/dL Hct 28.9 L (37.2-46.3) % Plt Count 111 L D (140-440) 10*3/uL MPV 12.5 H (9.5-12.2) fL Immature Gran # 1.80 H (0.00-0.04) 10*3/uL PT 13.7 H (10.0-12.5) sec INR 1.3 H (<1.2) Sodium (137-145) mmol/L Chloride (98-107) mmol/L BUN (7-17) mg/dL Creatinine (0.52-1.04) mg/dL Glucose (74-99) mg/dL POC Glucose (mg/dL) 266 H (70-110) mg/dL AST (14-36) U/L ALT (4-34) U/L Alkaline Phosphatase (38-126) U/L C-Reactive Protein (<1.0) mg/dL Total Protein (6.3-8.2) g/dL Albumin (3.5-5.0) g/dL
--- NOTE | 2025-02-02 14:59 | P.PN ---
Progress Note - Text Progress Note Date: 02/02/25 No acute events overnight. Denies abdominal pain. Denies fevers and chills. Denies nausea and vomiting. She states she feels full. VSS General-NAD CVS-RRR Lungs-NLB Abdomen-soft, NTND 74-year-old female with concern for Gallbladder Polyp versus Small Gallstone. -GI recs for elevated transaminases -Monitor Bilirubin and LFTs -No acute surgical intervention planned Eze Beck DO [facility] [phone]
[2025-02-02 15:26] LABS: Procalcitonin 0.38 ng/mL (0.02-0.50)
[2025-02-02 15:32] LABS: Iron 39.0 UG/DL (50-170); Total Iron Binding Capacity 272.0 UG/DL (228-460)
[2025-02-02 16:02] LABS: Ferritin 4034.0 ng/mL (10.0-291.0)
[2025-02-02 16:33] LABS: Glucose,Whole Blood 363 mg/dL (70-110)
[2025-02-02 16:55] LABS: EBV-EA (IgG) <0.2 AI; EBV-EBNA(IgG) >8.0; EBV-VCA (IgG) 7.5 AI; EBV-VCA (IgM) <0.2 AI
[2025-02-02] MEDS: INSULIN LISPRO (HumaLOG) 100 UNIT/ML 10 mL VL SQ SCH (17:09)
--- NOTE | 2025-02-02 19:48 | XR ---
EXAMINATION TYPE: XR chest 2V DATE OF EXAM: 02/02/2025 4:58 PM COMPARISON: Chest radiographs from 01/31/2025 TECHNIQUE: XR chest 2V Frontal and lateral views of the chest. CLINICAL INDICATION:Female, 74 years old with history of f/u pulmonary edema; FINDINGS: Lungs/Pleura: Small bilateral pleural effusions. Pulmonary vascularity: Unremarkable. Heart/mediastinum: Cardiomediastinal silhouette is enlarged and stable. Aortic valvular stent graft. Single-lead cardiac conduction device overlying the left hemithorax with lead projecting over the ri ght ventricle. Musculoskeletal: Multiple level degenerative disc disease changes seen throughout the spine. Midline sternotomy wires are noted and stable. Right shoulder arthroplasty change. IMPRESSION: Small bilateral pleural effusions and cardiac megaly without overt pulmonary edema. [facility], , 02/02/2025 7:45 PM
[2025-02-02 20:10] LABS: Glucose,Whole Blood 328 mg/dL (70-110)
[2025-02-03 06:10] LABS: Glucose,Whole Blood 235 mg/dL (70-110)
--- NOTE | 2025-02-03 07:59 | P.PN ---
Subjective Progress Note Date: 02/02/25 Principal diagnosis: Reason for follow-up is leukocytosis and elevated liver enzymes Patient is a 74-year-old female with a past medical history significant for multiple comorbidity includingAsthma, Coronary Artery Disease (CAD), Chest Pain / Angina, Heart Failure, Diabetes Mellitus, GERD/Reflux, Hyperlipidemia, Hypertension, Myocardial Infarction ([place]), Osteoarthritis (OA), Pneumonia, Renal Disease, Syncope, recently did have left nephrectomy has been brought to the hospital for palpitation and noticed to have ventricular tachycardia requiring shock resuscitation and subsequent transfer to this facility patient noticed to have elevated liver enzymes and abdominal ultrasound prompting this consultation. On today's evaluation that is 02/02/2025, Patient is afebrile this morning patient has been complaining of left-sided chest pain shortness of breath but no significant cough, the patient is currently on room air, patient denies any abdominal pain no diarrhea no nausea no vomiting. Patient white count slightly up to 14,000 today creatinine is 2.45 liver enzymes slightly improved Pro-Pepe 0.38 CMV and EBV serology are positive Objective - Vital Signs Vital signs: Vital Signs Temp 98.2 F 02/02/25 08:20 Pulse 61 02/02/25 11:30 Resp 15 02/02/25 11:30 BP 95/58 02/02/25 11:30 Pulse Ox 96 02/02/25 11:30 FiO2 Intake & Output 02/01/25 02/02/25 02/02/25 18:59 06:59 18:59 Intake Total 60 Output Total 900 200 200 Balance -900 -200 -140 Weight 66 kg Intake: Oral 60 Output: Urine 900 200 200 Uretheral ([place]) 900 Other: Voiding Method External Catheter Indwelling Catheter - Exam GENERAL DESCRIPTION: An elderly female lying in bed in no distress RESPIRATORY SYSTEM: Unlabored breathing , decreased breath sounds at bases HEART: S1 S2 regular rate and rhythm , ABDOMEN: Soft , no tenderness EXTREMITIES: No edema feet - Labs CBC & Chem 7: 02/02/25 05:47 02/02/25 05:47 Labs: Abnormal Lab Results - Last 24 Hours (Table) 02/01/25 02/01/25 02/02/25 Range/Units 18:45 19:58 05:47 WBC (4.50-10.00) 10*3/uL RBC (4.10-5.20) 10*6/uL Hgb (12.0-15.0) g/dL Hct (37.2-46.3) % Plt Count (140-440) 10*3/uL MPV (9.5-12.2) fL Immature Gran # (0.00-0.04) 10*3/uL PT (10.0-12.5) sec INR (<1.2) Sodium 130 L (137-145) mmol/L Chloride 97 L (98-107) mmol/L BUN 51 H (7-17) mg/dL Creatinine 2.45 H (0.52-1.04) mg/dL Glucose 247 H (74-99) mg/dL POC Glucose (mg/dL) 203 H 278 H (70-110) mg/dL AST 785 H (14-36) U/L ALT 1678 H (4-34) U/L Alkaline Phosphatase 157 H (38-126) U/L C-Reactive Protein 6.1 H (<1.0) mg/dL Total Protein 5.1 L (6.3-8.2) g/dL Albumin 3.1 L (3.5-5.0) g/dL 02/02/25 02/02/25 02/02/25 Range/Units 05:47 05:47 08:22 WBC 14.98 H (4.50-10.00) 10*3/uL RBC 3.07 L (4.10-5.20) 10*6/uL Hgb 9.6 L (12.0-15.0) g/dL Hct 28.9 L (37.2-46.3) % Plt Count 111 L D (140-440) 10*3/uL MPV 12.5 H (9.5-12.2) fL Immature Gran # 1.80 H (0.00-0.04) 10*3/uL PT 13.7 H (10.0-12.5) sec INR 1.3 H (<1.2) Sodium (137-145) mmol/L Chloride (98-107) mmol/L BUN (7-17) mg/dL Creatinine (0.52-1.04) mg/dL Glucose (74-99) mg/dL POC Glucose (mg/dL) 266 H (70-110) mg/dL AST (14-36) U/L ALT (4-34) U/L Alkaline Phosphatase (38-126) U/L C-Reactive Protein (<1.0) mg/dL Total Protein (6.3-8.2) g/dL Albumin (3.5-5.0) g/dL 02/02/25 Range/Units 11:35 WBC (4.50-10.00) 10*3/uL RBC (4.10-5.20) 10*6/uL Hgb (12.0-15.0) g/dL Hct (37.2-46.3) % Plt Count (140-440) 10*3/uL MPV (9.5-12.2) fL Immature Gran # (0.00-0.04) 10*3/uL PT (10.0-12.5) sec INR (<1.2) Sodium (137-145) mmol/L Chloride (98-107) mmol/L BUN (7-17) mg/dL Creatinine (0.52-1.04) mg/dL Glucose (74-99) mg/dL POC Glucose (mg/dL) 328 H (70-110) mg/dL AST (14-36) U/L ALT (4-34) U/L Alkaline Phosphatase (38-126) U/L C-Reactive Protein (<1.0) mg/dL Total Protein (6.3-8.2) g/dL Albumin (3.5-5.0) g/dL Assessment and Plan (1) Elevated liver enzymes Current Visit: Yes Status: Acute Code(s): R74.8 - ABNORMAL LEVELS OF OTHER SERUM ENZYMES SNOMED Code(s): 123237771 (2) Leukocytosis Current Visit: Yes Status: Acute Code(s): D72.829 - ELEVATED WHITE BLOOD CELL COUNT, UNSPECIFIED SNOMED Code(s): 142534469 (3) Allergy to multiple antibiotics Current Visit: No Status: Acute Code(s): Z88.1 - ALLERGY STATUS TO OTHER ANTIBIOTIC AGENTS SNOMED Code(s): 275304126 Plan: 1patient with multiple comorbidities in this patient was status post left nephrectomy now presented to the hospital with palpitation shortness of breath patient was noticed to be in ventricular tachycardia requiring cardioversion and amiodarone now with evidence of worsening liver enzymes there was concern for some abnormality to the gallbladder however the patient currently does not have any pain to the right upper quadrant area or any tenderness and elevated liver enzymes more likely related to the passive congestion from her cardiac condition 2-patient with multiple antibiotic ALLERGIES that would limit the number of antibiotic safe to use 3-patient did have a normal procalcitonin, liver isms are trending down however noticed her slight worsening of the white count will be monitored closely Family at the bedside multiple questions Answered Dictation was produced using [employer] dictation software. please excuse any grammatical, word or spelling errors. Time with Patient: Less than 30
[2025-02-03 09:31] LABS: HCT 28.9 % (37.2-46.3); HGB 9.8 g/dL (12.0-15.0); MCH 32.7 pg (27.0-32.0); MCHC 33.9 g/dL (32.0-37.0); MCV 96.3 fL (80.0-97.0); Platelet Count 103 10*3/uL (140-440); RBC 3.00 10*6/uL (4.10-5.20); RDW 14.9 % (11.5-14.5)
[2025-02-03 10:01] LABS: African American GFR (CKD) 25 (>60 ml/min/1.73 sqM); Albumin 2.6 g/dL (3.5-5.0); Anion Gap 9 mmol/L; Bilirubin, Delta 0.6 mg/dL (0.0-0.2); Bilirubin,Unconjugated 0.7 mg/dL (0.0-1.1); Blood Urea Nitrogen 49 mg/dL (7-17); Calcium 9.0 mg/dL (8.4-10.2); Carbon Dioxide 19 mmol/L (22-30); Chloride 99 mmol/L (98-107); Glucose 199 mg/dL (74-99); Non-African American GFR(CKD) 22 (>60 ml/min/1.73 sqM); Sodium 127 mmol/L (137-145); Total Protein 4.8 g/dL (6.3-8.2)
[2025-02-03 10:07] LABS: AST 495 U/L (14-36); Alkaline Phosphatase 125 U/L (38-126); Potassium 4.7 mmol/L (3.5-5.1)
[2025-02-03 10:55] LABS: Glucose,Whole Blood 312 mg/dL (70-110)
[2025-02-03 11:28] LABS: Glucose,Whole Blood 226 mg/dL (70-110)
[2025-02-03 11:36] LABS: Basophils # (M) 0.12 k/uL (0-0.2); Eosinophils # (M) 0.37 k/uL (0-0.7); Lymphocytes # (M) 1.59 k/uL (1.0-4.8); Metamyelocytes # (M) 0.24 k/uL (0); Monocytes # (M) 0.61 k/uL (0-1.0); Myelocytes # (M) 0.12 k/uL (0); Neutrophils # (M) 9.40 k/uL (1.3-7.7); Neutrophils % (M) 71 %; Polychromasia Present; Total Cells Counted 200; WBC 12.22 10*3/uL (4.50-10.00)
--- NOTE | 2025-02-03 11:41 | P.PN ---
Subjective Progress Note Date: 02/03/25 Principal diagnosis: Transaminitis This is a pleasant 74-year-old female with multiple comorbidities including diabetes mellitus, coronary artery disease with multiple stents, heart failure, hyperlipidemia, hypertension, myocardial infarction, aortic valve replacement, chronic kidney disease who underwent a left nephrectomy about a week ago who presented to the emergency department yesterday with elevated blood sugars since her surgery. Patient is admitted with multiple consultants. Was noted to have ventricular tachycardia during her emergency room visit and underwent c ardioversion on 01/31/2025. She was noted to have elevated troponin on admission with significant increase in 01/31/2025. Also noted on admission to be hypotensive with blood pressures in the 60s over 40s. On admission she was noted to have elevated total bilirubin 1.4 AST 644 ALT 516 alkaline phosphatase 114 with continued elevation with a repeat today of 1.321 03/26/1929 140 respectively. Gastroenterology was consulted secondary to transaminitis and patient also had CT scan that reported gallstones and gall sludge and possible gallstone in the gallbladder neck. Patient denies any abdominal pain, nausea or vomiting. She has not been having any right upper quadrant abdominal pain. Denies any history of liver disease. Hepatitis panel is nonreactive. Also noted to be thrombocytopenic with leukocytosis on admission as well. 02/02/2025 Patient seen and examined today as a follow-up. Denies any abdominal pain in the right upper quadrant. Patient has quite a bit of extensive bruising and hematoma to the left side of her abdomen and arm from previous fall. States just a generalized full feeling. No nausea or vomiting. She has been afebrile. Today's labs WBC 14.9 hemoglobin 9.6 platelet count 111,000 INR 1.3 total bilirubin 1.2 AST 785 ALT 1678 alkaline phosphatase 157 02/03/2025 Patient seen and examined today as a follow-up. Had an episode with nausea and vomiting x 1 yesterday when she went for a chest x-ray. Otherwise again no complaints of right upper quadrant abdominal pain. LFTs continue to improve. Total bilirubin 1.3 conjugated bili 0.0 unconjugated bili 0.7 AST 495 ALT 1302 alkaline phosphatase 125 CMV IgG antibody reactive, IgM pending. EBV IgM negative Objective - Vital Signs Vital signs: Vital Signs Temp 98.1 F 02/03/25 09:49 Pulse 60 07/02/25 09:49 Resp 18 02/03/25 09:49 BP 118/73 02/03/25 09:49 Pulse Ox 97 02/03/25 09:49 FiO2 Intake & Output 02/02/25 02/03/25 02/03/25 18:59 06:59 18:59 Intake Total 300 25 160 Output Total 550 400 Balance -250 -375 160 Weight 105 kg Intake: IV 25 10 Invasive Line 1 5 Invasive Line 2 20 Invasive Line 3 10 Oral 300 150 Output: Urine 550 400 Other: Voiding Method Indwelling Catheter Indwelling Catheter Indwelling Catheter - Exam General appearance: The patient is alert, oriented, appears in no acute distress. HET: Head is normocephalic and atraumatic. Conjunctiva pink. Sclera anicteric. Neck: Supple without lymphadenopathy. Abdomen: Soft, nontender right upper quadrant and epigastric region, tenderness along left lateral abdomen over bruising and hematoma, nondistended. Extremities: Normal skin color and turgor. No pedal edema Skin: No rashes, no jaundice Neurological: No focal deficits. Alert and oriented. - Labs CBC & Chem 7: 02/03/25 09:12 02/03/25 09:12 Labs: Abnormal Lab Results - Last 24 Hours (Table) 02/02/25 02/02/25 02/02/25 Range/Units 05:43 05:47 05:47 WBC 14.00 H (4.50-10.00) 10*3/uL RBC (4.10-5.20) 10*6/uL Hgb (12.0-15.0) g/dL Hct (37.2-46.3) % MCH (27.0-32.0) pg Plt Count (140-440) 10*3/uL MPV (9.5-12.2) fL Immature Gran # (0.00-0.04) 10*3/uL Neutrophils # (Manual) 11.76 H (1.3-7.7) k/uL Lymphocytes # (Manual) 0.98 L (1.0-4.8) k/uL Myelocytes # (Manual) 0.42 H (0) k/uL Nucleated RBCs 7 H (0-0) /100 WBC Sodium (137-145) mmol/L Carbon Dioxide (22-30) mmol/L BUN (7-17) mg/dL Creatinine (0.52-1.04) mg/dL Glucose (74-99) mg/dL POC Glucose (mg/dL) 312 H (70-110) mg/dL Iron (50-170) UG/DL Transferrin (204.0-354.0) mg/dL Ferritin (10.0-291.0) ng/mL Delta Bilirubin (0.0-0.2) mg/dL AST (14-36) U/L Total Protein (6.3-8.2) g/dL Albumin (3.5-5.0) g/dL CMV IgG Ab Reactive A (Nonreactive) EBV Capsid Ag IgG Intrp (Negative) EBV Nuc Ag IgG Interp (Negative) 02/02/25 02/02/25 02/02/25 Range/Units 05:47 05:47 11:35 WBC (4.50-10.00) 10*3/uL RBC (4.10-5.20) 10*6/uL Hgb (12.0-15.0) g/dL Hct (37.2-46.3) % MCH (27.0-32.0) pg Plt Count (140-440) 10*3/uL MPV (9.5-12.2) fL Immature Gran # (0.00-0.04) 10*3/uL Neutrophils # (Manual) (1.3-7.7) k/uL Lymphocytes # (Manual) (1.0-4.8) k/uL Myelocytes # (Manual) (0) k/uL Nucleated RBCs (0-0) /100 WBC Sodium (137-145) mmol/L Carbon Dioxide (22-30) mmol/L BUN (7-17) mg/dL Creatinine (0.52-1.04) mg/dL Glucose (74-99) mg/dL POC Glucose (mg/dL) 328 H (70-110) mg/dL Iron 39 L (50-170) UG/DL Transferrin 194.0 L (204.0-354.0) mg/dL Ferritin 4034.0 H (10.0-291.0) ng/mL Delta Bilirubin (0.0-0.2) mg/dL AST (14-36) U/L Total Protein (6.3-8.2) g/dL Albumin (3.5-5.0) g/dL CMV IgG Ab (Nonreactive) EBV Capsid Ag IgG Intrp Positive A (Negative) EBV Nuc Ag IgG Interp Positive A (Negative) 02/02/25 02/02/25 02/02/25 Range/Units 14:05 16:32 20:09 WBC (4.50-10.00) 10*3/uL RBC (4.10-5.20) 10*6/uL Hgb (12.0-15.0) g/dL Hct (37.2-46.3) % MCH (27.0-32.0) pg Plt Count (140-440) 10*3/uL MPV (9.5-12.2) fL Immature Gran # (0.00-0.04) 10*3/uL Neutrophils # (Manual) (1.3-7.7) k/uL Lymphocytes # (Manual) (1.0-4.8) k/uL Myelocytes # (Manual) (0) k/uL Nucleated RBCs (0-0) /100 WBC Sodium (137-145) mmol/L Carbon Dioxide (22-30) mmol/L BUN (7-17) mg/dL Creatinine (0.52-1.04) mg/dL Glucose (74-99) mg/dL POC Glucose (mg/dL) 355 H 363 H 328 H (70-110) mg/dL Iron (50-170) UG/DL Transferrin (204.0-354.0) mg/dL Ferritin (10.0-291.0) ng/mL Delta Bilirubin (0.0-0.2) mg/dL AST (14-36) U/L Total Protein (6.3-8.2) g/dL Albumin (3.5-5.0) g/dL CMV IgG Ab (Nonreactive) EBV Capsid Ag IgG Intrp (Negative) EBV Nuc Ag IgG Interp (Negative) 02/03/25 02/03/25 02/03/25 Range/Units 06:09 09:12 09:12 WBC 14.17 H (4.50-10.00) 10*3/uL RBC 3.00 L (4.10-5.20) 10*6/uL Hgb 9.8 L (12.0-15.0) g/dL Hct 28.9 L (37.2-46.3) % MCH 32.7 H (27.0-32.0) pg Plt Count 103 L (140-440) 10*3/uL MPV 12.8 H (9.5-12.2) fL Immature Gran # 1.65 H (0.00-0.04) 10*3/uL Neutrophils # (Manual) (1.3-7.7) k/uL Lymphocytes # (Manual) (1.0-4.8) k/uL Myelocytes # (Manual) (0) k/uL Nucleated RBCs (0-0) /100 WBC Sodium 127 L (137-145) mmol/L Carbon Dioxide 19 L (22-30) mmol/L BUN 49 H (7-17) mg/dL Creatinine 2.19 H (0.52-1.04) mg/dL Glucose 199 H (74-99) mg/dL POC Glucose (mg/dL) 235 H (70-110) mg/dL Iron (50-170) UG/DL Transferrin (204.0-354.0) mg/dL Ferritin (10.0-291.0) ng/mL Delta Bilirubin 0.6 H (0.0-0.2) mg/dL AST 495 H (14-36) U/L Total Protein 4.8 L (6.3-8.2) g/dL Albumin 2.6 L (3.5-5.0) g/dL CMV IgG Ab (Nonreactive) EBV Capsid Ag IgG Intrp (Negative) EBV Nuc Ag IgG Interp (Negative) 02/03/25 Range/Units 11:23 WBC (4.50-10.00) 10*3/uL RBC (4.10-5.20) 10*6/uL Hgb (12.0-15.0) g/dL Hct (37.2-46.3) % MCH (27.0-32.0) pg Plt Count (140-440) 10*3/uL MPV (9.5-12.2) fL Immature Gran # (0.00-0.04) 10*3/uL Neutrophils # (Manual) (1.3-7.7) k/uL Lymphocytes # (Manual) (1.0-4.8) k/uL Myelocytes # (Manual) (0) k/uL Nucleated RBCs (0-0) /100 WBC Sodium (137-145) mmol/L Carbon Dioxide (22-30) mmol/L BUN (7-17) mg/dL Creatinine (0.52-1.04) mg/dL Glucose (74-99) mg/dL POC Glucose (mg/dL) 226 H (70-110) mg/dL Iron (50-170) UG/DL Transferrin (204.0-354.0) mg/dL Ferritin (10.0-291.0) ng/mL Delta Bilirubin (0.0-0.2) mg/dL AST (14-36) U/L Total Protein (6.3-8.2) g/dL Albumin (3.5-5.0) g/dL CMV IgG Ab (Nonreactive) EBV Capsid Ag IgG Intrp (Negative) EBV Nuc Ag IgG Interp (Negative) Assessment and Plan (1) Acute hepatitis Narrative/Plan: 74-year-old female presenting with hyperglycemia, hypotension with ventricular tachycardia status post cardioversion with amiodarone drip with transaminitis secondary to acute ischemic hepatitis from shock liver. CT abdomen pelvis reporting gallbladder stones and sludge however patient is asymptomatic and abdominal ultrasound states likely dealing with a gallbladder polyp rather than stone near the neck, nonetheless the significant elevation of LFTs is not consistent with choledocholithiasis. Avoid hepatotoxic medications. Continue to monitor LFTs. LFTs are trending down, continue to monitor LFTs. Avoid hepatotoxic medications. No further workup at this time. Current Visit: Yes Status: Acute Code(s): B17.9 - ACUTE VIRAL HEPATITIS, UNS PECIFIED SNOMED Code(s): 85987708 (2) Elevated LFTs Narrative/Plan: 74-year-old female presenting with dysemia ventricular tachycardia status post cardioversion with amiodarone drip and hypotension with elevated LFTs secondary to shock liver. CT abdomen pelvis reporting gallbladder stones and sludge however patient is asymptomatic and abdominal ultrasound states likely dealing with a gallbladder polyp rather than stone near the neck, nonetheless the significant elevation of LFTs is not consistent with choledocholithiasis. Avoid hepatotoxic medications. Continue to monitor LFTs. Current Visit: Yes Status: Acute Code(s): R79.89 - OTHER SPECIFIED ABNORMAL FINDINGS OF BLOOD CHEMISTRY SNOMED Code(s): 292033641 (3) Ventricular tachycardia Current Visit: Yes Status: Acute Code(s): I47.20 - VENTRICULAR TACHYCARDIA, UNSPECIFIED SNOMED Code(s): 15364089 (4) WENDY (acute kidney injury) Current Visit: No Status: Acute Code(s): N17.9 - ACUTE KIDNEY FAILURE, UNSPECIFIED SNOMED Code(s): 61863421 (5) CAD (coronary artery disease) Current Visit: No Status: Acute Code(s): I25.10 - ATHSCL HEART DISEASE OF [place] CORONARY ARTERY W/O ANG PCTRS SNOMED Code(s): 38523249 Plan: 1. Continue symptomatic and supportive care 2. Avoid hepatotoxic medications 3. Daily CMP 4. Diet as tolerated 5. Maintain optimal blood pressures 6. There is no indication for any further gastroenterology workup at this time Thank you for this consultation, recommend outpatient follow-up upon LFTs. Gastroenterology will sign off at this time. Dr. Cristin Grewal I agree with the dictator's note, documented as a scribe by Niki MENDOZA.
[2025-02-03 11:42] LABS: ALT 1302 U/L (4-34)
--- NOTE | 2025-02-03 12:05 | CA ---
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 Chantell Rutledge RDCS Procedure CPT: Indications: VTach Cardiac Hx: Technical Quality: Fair Contrast 1: Definity Total Dose (mL): 2 Contrast 2: Total Dose (mL): MEASUREMENTS (Male / Female) Normal Values 2D ECHO LV Diastolic Diameter PLAX 4.8 cm 4.2 - 5.9 / 3.9 - 5.3 cm LV Systolic Diameter PLAX 4.4 cm IVS Diastolic Thickness 1.0 cm 0.6 - 1.0 / 0.6 - 0.9 cm LVPW Diastolic Thickness 1.1 cm 0.6 - 1.0 / 0.6 - 0.9 cm LV Relative Wall Thickness 0.4 RV Internal Dim ED PLAX 3.0 cm LVOT Diameter 1.8 cm LA Systolic Diameter LX 4.0 cm 3.0 - 4.0 / 2.7 - 3.8 cm M-MODE Aortic Root Diameter MM 2.2 cm LA Systolic Diameter MM 3.8 cm LA Ao Ratio MM 1.7 DOPPLER AV Peak Velocity 263.6 cm/s AV Peak Gradient 27.8 mmHg AV Mean Velocity 196.4 cm/s AV Mean Gradient 17.4 mmHg AV Velocity Time Integral 58.0 cm LVOT Peak Velocity 82.3 cm/s LVOT Peak Gradient 2.7 mmHg LVOT Velocity Time Integral 17.7 cm LVOT Stroke Volume 43.0 cm??? LVOT Stroke Volume Index 26.7 ml/m??? LVOT Cardiac Index 1484.4 cm???/min???m??? AV Area Cont Eq vti 0.7 cm??? AV Area Cont Eq pk 0.8 cm??? Mitral E Point Velocity 74.3 cm/s Mitral A Point Velocity 82.2 cm/s Mitral E to A Ratio 0.9 MV Deceleration Time 283.2 ms MV E' Velocity 1.8 cm/s Mitral E to MV E' Ratio 41.6 TR Peak Velocity 287.2 cm/s TR Peak Gradient 33.0 mmHg Right Ventricular Systolic Press 53.1 mmHg FINDINGS Left Ventricle Left ventricular ejection fraction is estimated at 10-15 %. Mildly increased posterior wall thickness. Left ventricular cavity size normal. Severely reduced global left ventricular systolic function. Right Ventricle Moderate right ventricular dilatation. Moderate pulmonary hypertension. Right Atrium Moderate right atrial dilatation. Catheter/pacemaker wire in the right atrial cavity. Left Atrium Moderate left atrial dilatation. Mitral Valve Mitral valve thickened. Moderate mitral regurgitation. No mitral stenosis. Mitral annular calcification. Aortic Valve Bioprosthetic aortic valve. Mild aortic stenosis with a peak gradient of 28 mmHg and a mean gradient of 17mmHg. No aortic regurgitation. Tricuspid Valve Annular dilatation of the tricuspid valve. Severe tricuspid regurgitation. No tricuspid regurgitation. Pulmonic Valve Structurally normal pulmonic valve. Trace pulmonic regurgitation. No pulmonic stenosis. Pericardium No pericardial effusion. Left pleural effusion. Aorta Normal size aortic root and proximal ascending aorta. CONCLUSIONS Severe LV systolic dysfunction Moderate right ventricular dilatation Moderate pulmonary hypertension Moderate mitral regurgitation Bioprosthetic valve in aortic position with mild aortic stenosis Severe tricuspid regurgitation Previewed by: Dr. Celestino Grewal MD (Electronically Signed) Final Date: 03 February 2025 12:04
--- NOTE | 2025-02-03 12:12 | P.PN ---
Subjective Progress Note Date: 02/03/25 Patient is seen in follow-up for acute kidney injury on chronic kidney disease. She has increased appetite this morning. She is still feeling fatigue, generalized weakness, and SOB. On IV lasix daily, with additional dose added at 16:00 today only. Denies chest pain, abdominal pain, or dysuria. Adequate urine output. Vital signs are stable. General: The patient no acute distress. HEENT: Head exam is unremarkable. LUNGS: No audible rhonchi or wheezes. HEART: Rate and Rhythm are regular. ABDOMEN: L sided abdominal tenderness EXTREMITITES: 1+ edema Objective - Vital Signs Vital signs: Vital Signs Temp 98.1 F 02/03/25 03:44 Pulse 64 02/03/25 03:44 Resp 16 02/03/25 03:44 BP 120/77 02/03/25 03:44 Pulse Ox 97 02/03/25 03:44 FiO2 Intake & Output 02/02/25 02/03/25 02/03/25 18:59 06:59 18:59 Intake Total 300 25 Output Total 550 400 Balance -250 -375 Weight 105 kg Intake: IV 25 Invasive Line 1 5 Invasive Line 2 20 Oral 300 Output: Urine 550 400 Other: Voiding Method Indwelling Catheter Indwelling Catheter - Labs CBC & Chem 7: 02/03/25 09:12 02/03/25 09:12 Labs: Abnormal Lab Results - Last 24 Hours (Table) 02/02/25 02/02/25 02/02/25 Range/Units 05:47 05:47 05:47 WBC 14.00 H (4.50-10.00) 10*3/uL Neutrophils # (Manual) 11.76 H (1.3-7.7) k/uL Lymphocytes # (Manual) 0.98 L (1.0-4.8) k/uL Myelocytes # (Manual) 0.42 H (0) k/uL Nucleated RBCs 7 H (0-0) /100 WBC POC Glucose (mg/dL) (70-110) mg/dL Iron (50-170) UG/DL Transferrin (204.0-354.0) mg/dL Ferritin (10.0-291.0) ng/mL CMV IgG Ab Reactive A (Nonreactive) EBV Capsid Ag IgG Intrp Positive A (Negative) EBV Nuc Ag IgG Interp Positive A (Negative) 02/02/25 02/02/25 02/02/25 Range/Units 05:47 11:35 14:05 WBC (4.50-10.00) 10*3/uL Neutrophils # (Manual) (1.3-7.7) k/uL Lymphocytes # (Manual) (1.0-4.8) k/uL Myelocytes # (Manual) (0) k/uL Nucleated RBCs (0-0) /100 WBC POC Glucose (mg/dL) 328 H 355 H (70-110) mg/dL Iron 39 L (50-170) UG/DL Transferrin 194.0 L (204.0-354.0) mg/dL Ferritin 4034.0 H (10.0-291.0) ng/mL CMV IgG Ab (Nonreactive) EBV Capsid Ag IgG Intrp (Negative) EBV Nuc Ag IgG Interp (Negative) 02/02/25 02/02/25 02/03/25 Range/Units 16:32 20:09 06:09 WBC (4.50-10.00) 10*3/uL Neutrophils # (Manual) (1.3-7.7) k/uL Lymphocytes # (Manual) (1.0-4.8) k/uL Myelocytes # (Manual) (0) k/uL Nucleated RBCs (0-0) /100 WBC POC Glucose (mg/dL) 363 H 328 H 235 H (70-110) mg/dL Iron (50-170) UG/DL Transferrin (204.0-354.0) mg/dL Ferritin (10.0-291.0) ng/mL CMV IgG Ab (Nonreactive) EBV Capsid Ag IgG Intrp (Negative) EBV Nuc Ag IgG Interp (Negative) Assessment and Plan Plan: Assessment: 1. Acute kidney injury secondary to ATN secondary to diuresis and hemodynamic instability. Creatinine 2.19 today. UA fairly benign. No hydronephrosis noted on ultrasound. 2. Chronic kidney disease stage IV secondary to solitary kidney with recent creatinine 1.7-1.9. 3. V. tach status post amiodarone drip. 4. Hyperkalemia secondary to acidosis, chronic kidney disease, potassium supplementation and hyperglycemia. Improved. 5. Shock liver. 6. Metabolic acidosis secondary to acute kidney injury. Better. On oral bicarb. 7. Volume overload. 8. Diabetes mellitus. 9. Urinary retention. Has gaston catheter. Plan: Maintain IV lasix 40 mg daily - Additional 40mg IV lasix added once only at 16:00 today Fluid restrict 1200ml Diet - Recommended patient to increase protein intake (ie ensure) Started Aranesp 40mcg q7d Avoid nephrotoxins Continue to monitor renal function and urine output Void trial planned before d/c Anton Kuo MD Internal Medicine PGY1 Nephrology service I have seen and examined the patient with resident and agree with A&P as written. Time with Patient: Less than 30
--- NOTE | 2025-02-03 12:35 | P.PN ---
Subjective Progress Note Date: 02/03/25 Principal diagnosis: Reason for follow-up is leukocytosis and elevated liver enzymes Patient is a 74-year-old female with a past medical history significant for multiple comorbidity includingAsthma, Coronary Artery Disease (CAD), Chest Pain / Angina, Heart Failure, Diabetes Mellitus, GERD/Reflux, Hyperlipidemia, Hypertension, Myocardial Infarction (GA), Osteoarthritis (OA), Pneumonia, Renal Disease, Syncope, recently did have left nephrectomy has been brought to the hospital for palpitation and noticed to have ventricular tachycardia requiring shock resuscitation and subsequent transfer to this facility patient noticed to have elevated liver enzymes and abdominal ultrasound prompting this consultation. On today's evaluation that is 02/03/2025,the patient denies any fever or any chills, patient is breathing comfortably on room air, the patient denies chest pain shortness of breath and no significant cough, patient has been complaining of mostly pain to the left sided Abdominal area not on the right side no nausea no vomiting. Patient white count is down to 12.22 creatinine is 2.19, bilirubin is down to 0.7 AST is down to 495 and ALT is down to 1302 alkaline phos has normalized Objective - Vital Signs Vital signs: Vital Signs Temp 98.1 F 02/03/25 09:49 Pulse 60 02/03/25 09:49 Resp 18 02/03/25 09:49 BP 118/73 02/03/25 09:49 Pulse Ox 97 02/03/25 09:49 FiO2 Intake & Output 02/02/25 02/03/25 02/03/25 18:59 06:59 18:59 Intake Total 300 25 160 Output Total 550 400 Balance -250 -375 160 Weight 105 kg Intake: IV 25 10 Invasive Line 1 5 Invasive Line 2 20 Invasive Line 3 10 Oral 300 150 Output: Urine 550 400 Other: Voiding Method Indwelling Catheter Indwelling Catheter Indwelling Catheter - Exam GENERAL DESCRIPTION: An elderly female lying in bed in no distress RESPIRATORY SYSTEM: Unlabored breathing , decreased breath sounds at bases HEART: S1 S2 regular rate and rhythm , ABDOMEN: Soft , no tenderness EXTREMITIES: No edema feet - Labs CBC & Chem 7: 02/03/25 09:12 02/03/25 09:12 Labs: Abnormal Lab Results - Last 24 Hours (Table) 02/02/25 02/02/25 02/02/25 Range/Units 05:43 05:47 05:47 WBC 14.00 H (4.50-10.00) 10*3/uL RBC (4.10-5.20) 10*6/uL Hgb (12.0-15.0) g/dL Hct (37.2-46.3) % MCH (27.0-32.0) pg Plt Count (140-440) 10*3/uL MPV (9.5-12.2) fL Immature Gran # (0.00-0.04) 10*3/uL Neutrophils # (Manual) 11.76 H (1.3-7.7) k/uL Lymphocytes # (Manual) 0.98 L (1.0-4.8) k/uL Metamyelocytes # (Man) (0) k/uL Myelocytes # (Manual) 0.42 H (0) k/uL Nucleated RBCs 7 H (0-0) /100 WBC Sodium (137-145) mmol/L Carbon Dioxide (22-30) mmol/L BUN (7-17) mg/dL Creatinine (0.52-1.04) mg/dL Glucose (74-99) mg/dL POC Glucose (mg/dL) 312 H (70-110) mg/dL Iron (50-170) UG/DL Transferrin (204.0-354.0) mg/dL Ferritin (10.0-291.0) ng/mL Delta Bilirubin (0.0-0.2) mg/dL AST (14-36) U/L ALT (4-34) U/L Total Protein (6.3-8.2) g/dL Albumin (3.5-5.0) g/dL CMV IgG Ab Reactive A (Nonreactive) EBV Capsid Ag IgG Intrp (Negative) EBV Nuc Ag IgG Interp (Negative) 02/02/25 02/02/25 02/02/25 Range/Units 05:47 05:47 14:05 WBC (4.50-10.00) 10*3/uL RBC (4.10-5.20) 10*6/uL Hgb (12.0-15.0) g/dL Hct (37.2-46.3) % MCH (27.0-32.0) pg Plt Count (140-440) 10*3/uL MPV (9.5-12.2) fL Immature Gran # (0.00-0.04) 10*3/uL Neutrophils # (Manual) (1.3-7.7) k/uL Lymphocytes # (Manual) (1.0-4.8) k/uL Metamyelocytes # (Man) (0) k/uL Myelocytes # (Manual) (0) k/uL Nucleated RBCs (0-0) /100 WBC Sodium (137-145) mmol/L Carbon Dioxide (22-30) mmol/L BUN (7-17) mg/dL Creatinine (0.52-1.04) mg/dL Glucose (74-99) mg/dL POC Glucose (mg/dL) 355 H (70-110) mg/dL Iron 39 L (50-170) UG/DL Transferrin 194.0 L (204.0-354.0) mg/dL Ferritin 4034.0 H (10.0-291.0) ng/mL Delta Bilirubin (0.0-0.2) mg/dL AST (14-36) U/L ALT (4-34) U/L Total Protein (6.3-8.2) g/dL Albumin (3.5-5.0) g/dL CMV IgG Ab (Nonreactive) EBV Capsid Ag IgG Intrp Positive A (Negative) EBV Nuc Ag IgG Interp Positive A (Negative) 02/02/25 02/02/25 02/03/25 Range/Units 16:32 20:09 06:09 WBC (4.50-10.00) 10*3/uL RBC (4.10-5.20) 10*6/uL Hgb (12.0-15.0) g/dL Hct (37.2-46.3) % MCH (27.0-32.0) pg Plt Count (140-440) 10*3/uL MPV (9.5-12.2) fL Immature Gran # (0.00-0.04) 10*3/uL Neutrophils # (Manual) (1.3-7.7) k/uL Lymphocytes # (Manual) (1.0-4.8) k/uL Metamyelocytes # (Man) (0) k/uL Myelocytes # (Manual) (0) k/uL Nucleated RBCs (0-0) /100 WBC Sodium (137-145) mmol/L Carbon Dioxide (22-30) mmol/L BUN (7-17) mg/dL Creatinine (0.52-1.04) mg/dL Glucose (74-99) mg/dL POC Glucose (mg/dL) 363 H 328 H 235 H (70-110) mg/dL Iron (50-170) UG/DL Transferrin (204.0-354.0) mg/dL Ferritin (10.0-291.0) ng/mL Delta Bilirubin (0.0-0.2) mg/dL AST (14-36) U/L ALT (4-34) U/L Total Protein (6.3-8.2) g/dL Albumin (3.5-5.0) g/dL CMV IgG Ab (Nonreactive) EBV Capsid Ag IgG Intrp (Negative) EBV Nuc Ag IgG Interp (Negative) 02/03/25 02/03/25 02/03/25 Range/Units 09:12 09:12 11:23 WBC 12.22 H (4.50-10.00) 10*3/uL RBC 3.00 L (4.10-5.20) 10*6/uL Hgb 9.8 L (12.0-15.0) g/dL Hct 28.9 L (37.2-46.3) % MCH 32.7 H (27.0-32.0) pg Plt Count 103 L (140-440) 10*3/uL MPV 12.8 H (9.5-12.2) fL Immature Gran # 1.65 H (0.00-0.04) 10*3/uL Neutrophils # (Manual) 9.40 H (1.3-7.7) k/uL Lymphocytes # (Manual) (1.0-4.8) k/uL Metamyelocytes # (Man) 0.24 H (0) k/uL Myelocytes # (Manual) 0.12 H (0) k/uL Nucleated RBCs 16 H (0-0) /100 WBC Sodium 127 L (137-145) mmol/L Carbon Dioxide 19 L (22-30) mmol/L BUN 49 H (7-17) mg/dL Creatinine 2.19 H (0.52-1.04) mg/dL Glucose 199 H (74-99) mg/dL POC Glucose (mg/dL) 226 H (70-110) mg/dL Iron (50-170) UG/DL Transferrin (204.0-354.0) mg/dL Ferritin (10.0-291.0) ng/mL Delta Bilirubin 0.6 H (0.0-0.2) mg/dL AST 495 H (14-36) U/L ALT 1302 H (4-34) U/L Total Protein 4.8 L (6.3-8.2) g/dL Albumin 2.6 L (3.5-5.0) g/dL CMV IgG Ab (Nonreactive) EBV Capsid Ag IgG Intrp (Negative) EBV Nuc Ag IgG Interp (Negative) Assessment and Plan (1) Elevated liver enzymes Current Visit: Yes Status: Acute Code(s): R74.8 - ABNORMAL LEVELS OF OTHER S MAYO ENZYMES SNOMED Code(s): 871839790 (2) Leukocytosis Current Visit: Yes Status: Acute Code(s): D72.829 - ELEVATED WHITE BLOOD CELL COUNT, UNSPECIFIED SNOMED Code(s): 347763321 (3) Allergy to multiple antibiotics Current Visit: No Status: Acute Code(s): Z88.1 - ALLERGY STATUS TO OTHER ANTIBIOTIC AGENTS SNOMED Code(s): 106775020 Plan: 1patient with multiple comorbidities in this patient was status post left nephrectomy now presented to the hospital with palpitation shortness of breath patient was noticed to be in ventricular tachycardia requiring cardioversion and amiodarone now with evidence of worsening liver enzymes there was concern for some abnormality to the gallbladder however the patient currently does not have any pain to the right upper quadrant area or any tenderness and elevated liver enzymes more likely related to the passive congestion from her cardiac condition 2-patient with multiple antibiotic ALLERGIES that would limit the number of antibiotic safe to use 3-patient did have a normal procalcitonin, the patient white count is trending down and the patient liver enzymes are improving we will continue monitor the patient closely off antibiotic therapy Dictation was produced using [employer] dictation software. please excuse any grammatical, word or spelling errors. Time with Patient: Less than 30
--- NOTE | 2025-02-03 12:41 | P.PN ---
Subjective Progress Note Date: 02/03/25 SURGICAL PROGRESS NOTE CHIEF COMPLAINT: Blood sugar issues HISTORY OF PRESENT ILLNESS: Patient does report abdominal bloating and fullness. She is having flatus. Denies any bowel movements. WBC is down from 14-12 Hgb 9.8 total bilirubin 1.3 LFTs trending down PHYSICAL EXAM: VITAL SIGNS: Reviewed. GENERAL: Well-developed in no acute distress. ABDOMEN: Soft. Nontender. NEUROLOGIC: Alert and oriented. Cranial nerves II through XII grossly intact. ASSESSMENT: 1. 74-year-old female with concern for Gallbladder Polyp versus Small Gallstone. 2. Constipation PLAN: - No surgical intervention planned - Senna ordered for constipation - Continue to monitor total bilirubin and LFTs. GI recommendations noted Physician Primary Health Organisation Manager note has been reviewed by physician. Signing provider agrees with the documented findings, assessment, and plan of care. Attestation Patient seen and examined at bedside on 02/03/2025. Chief complaint of hyperglycemia. Patient did complain of some abdominal bloating and fullness. Gallbladder polyp noted on imaging. No plan for acute surgical intervention. C ontinue bowel regimen and add senna. No plan for acute surgical intervention. Continue cardiology recommendations. Traci Lomeli, Objective - Vital Signs Vital signs: Vital Signs Temp 98.1 F 02/03/25 09:49 Pulse 60 02/03/25 09:49 Resp 18 02/03/25 09:49 BP 118/73 02/03/25 09:49 Pulse Ox 97 02/03/25 09:49 FiO2 Intake & Output 02/02/25 02/03/25 02/03/25 18:59 06:59 18:59 Intake Total 300 25 160 Output Total 550 400 Balance -250 -375 160 Weight 105 kg Intake: IV 25 10 Invasive Line 1 5 Invasive Line 2 20 Invasive Line 3 10 Oral 300 150 Output: Urine 550 400 Other: Voiding Method Indwelling Catheter Indwelling Catheter Indwelling Catheter - Labs CBC & Chem 7: 02/03/25 09:12 02/03/25 09:12 Labs: Abnormal Lab Results - Last 24 Hours (Table) 02/02/25 02/02/25 02/02/25 Range/Units 05:43 05:47 05:47 WBC 14.00 H (4.50-10.00) 10*3/uL RBC (4.10-5.20) 10*6/uL Hgb (12.0-15.0) g/dL Hct (37.2-46.3) % MCH (27.0-32.0) pg Plt Count (140-440) 10*3/uL MPV (9.5-12.2) fL Immature Gran # (0.00-0.04) 10*3/uL Neutrophils # (Manual) 11.76 H (1.3-7.7) k/uL Lymphocytes # (Manual) 0.98 L (1.0-4.8) k/uL Metamyelocytes # (Man) (0) k/uL Myelocytes # (Manual) 0.42 H (0) k/uL Nucleated RBCs 7 H (0-0) /100 WBC Sodium (137-145) mmol/L Carbon Dioxide (22-30) mmol/L BUN (7-17) mg/dL Creatinine (0.52-1.04) mg/dL Glucose (74-99) mg/dL POC Glucose (mg/dL) 312 H (70-110) mg/dL Iron (50-170) UG/DL Transferrin (204.0-354.0) mg/dL Ferritin (10.0-291.0) ng/mL Delta Bilirubin (0.0-0.2) mg/dL AST (14-36) U/L ALT (4-34) U/L Total Protein (6.3-8.2) g/dL Albumin (3.5-5.0) g/dL CMV IgG Ab Reactive A (Nonreactive) EBV Capsid Ag IgG Intrp (Negative) EBV Nuc Ag IgG Interp (Negative) 02/02/25 02/02/25 02/02/25 Range/Units 05:47 05:47 14:05 WBC (4.50-10.00) 10*3/uL RBC (4.10-5.20) 10*6/uL Hgb (12.0-15.0) g/dL Hct (37.2-46.3) % MCH (27.0-32.0) pg Plt Count (140-440) 10*3/uL MPV (9.5-12.2) fL Immature Gran # (0.00-0.04) 10*3/uL Neutrophils # (Manual) (1.3-7.7) k/uL Lymphocytes # (Manual) (1.0-4.8) k/uL Metamyelocytes # (Man) (0) k/uL Myelocytes # (Manual) (0) k/uL Nucleated RBCs (0-0) /100 WBC Sodium (137-145) mmol/L Carbon Dioxide (22-30) mmol/L BUN (7-17) mg/dL Creatinine (0.52-1.04) mg/dL Glucose (74-99) mg/dL POC Glucose (mg/dL) 355 H (70-110) mg/dL Iron 39 L (50-170) UG/DL Transferrin 194.0 L (204.0-354.0) mg/dL Ferritin 4034.0 H (10.0-291.0) ng/mL Delta Bilirubin (0.0-0.2) mg/dL AST (14-36) U/L ALT (4-34) U/L Total Protein (6.3-8.2) g/dL Albumin (3.5-5.0) g/dL CMV IgG Ab (Nonreactive) EBV Capsid Ag IgG Intrp Positive A (Negative) EBV Nuc Ag IgG Interp Positive A (Negative) 02/02/25 02/02/25 02/03/25 Range/Units 16:32 20:09 06:09 WBC (4.50-10.00) 10*3/uL RBC (4.10-5.20) 10*6/uL Hgb (12.0-15.0) g/dL Hct (37.2-46.3) % MCH (27.0-32.0) pg Plt Count (140-440) 10*3/uL MPV (9.5-12.2) fL Immature Gran # (0.00-0.04) 10*3/uL Neutrophils # (Manual) (1.3-7.7) k/uL Lymphocytes # (Manual) (1.0-4.8) k/uL Metamyelocytes # (Man) (0) k/uL Myelocytes # (Manual) (0) k/uL Nucleated RBCs (0-0) /100 WBC Sodium (137-145) mmol/L Carbon Dioxide (22-30) mmol/L BUN (7-17) mg/dL Creatinine (0.52-1.04) mg/dL Glucose (74-99) mg/dL POC Glucose (mg/dL) 363 H 328 H 235 H (70-110) mg/dL Iron (50-170) UG/DL Transferrin (204.0-354.0) mg/dL Ferritin (10.0-291.0) ng/mL Delta Bilirubin (0.0-0.2) mg/dL AST (14-36) U/L ALT (4-34) U/L Total Protein (6.3-8.2) g/dL Albumin (3.5-5.0) g/dL CMV IgG Ab (Nonreactive) EBV Capsid Ag IgG Intrp (Negative) EBV Nuc Ag IgG Interp (Negative) 02/03/25 02/03/25 02/03/25 Range/Units 09:12 09:12 11:23 WBC 12.22 H (4.50-10.00) 10*3/uL RBC 3.00 L (4.10-5.20) 10*6/uL Hgb 9.8 L (12.0-15.0) g/dL Hct 28.9 L (37.2-46.3) % MCH 32.7 H (27.0-32.0) pg Plt Count 103 L (140-440) 10*3/uL MPV 12.8 H (9.5-12.2) fL Immature Gran # 1.65 H (0.00-0.04) 10*3/uL Neutrophils # (Manual) 9.40 H (1.3-7.7) k/uL Lymphocytes # (Manual) (1.0-4.8) k/uL Metamyelocytes # (Man) 0.24 H (0) k/uL Myelocytes # (Manual) 0.12 H (0) k/uL Nucleated RBCs 16 H (0-0) /100 WBC Sodium 127 L (137-145) mmol/L Carbon Dioxide 19 L (22-30) mmol/L BUN 49 H (7-17) mg/dL Creatinine 2.19 H (0.52-1.04) mg/dL Glucose 199 H (74-99) mg/dL POC Glucose (mg/dL) 226 H (70-110) mg/dL Iron (50-170) UG/DL Transferrin (204.0-354.0) mg/dL Ferritin (10.0-291.0) ng/mL Delta Bilirubin 0.6 H (0.0-0.2) mg/dL AST 495 H (14-36) U/L ALT 1302 H (4-34) U/L Total Protein 4.8 L (6.3-8.2) g/dL Albumin 2.6 L (3.5-5.0) g/dL CMV IgG Ab (Nonreactive) EBV Capsid Ag IgG Intrp (Negative) EBV Nuc Ag IgG Interp (Negative)
[2025-02-03] MEDS: SENNOSIDES 8.6 MG TAB PO SCH (12:46)
--- NOTE | 2025-02-03 12:50 | P.PN ---
Subjective Progress Note Date: 02/03/25 The patient was seen and evaluated this morning. She still feeling congested but no symptoms of chest pain or chest discomfort. She has been maintaining sinus rhythm on the current dose of amiodarone. Her liver function test are elevated. Will follow-up with the trend of liver function test and continue tapering down the dose of amiodarone. Beside that the pressure is elevated. I am going to increase the dose of carvedilol. Heparin will be discontinued later on today. Echo will be ordered as well. The physical examination is remarkable for distant heart sounds with regular rate and rhythm and soft systolic murmur and diminished breathing sounds bilaterally and mild bilateral lower extremities edema 02/02/2025 Patient seen and examined. Patient states that she is feeling better today. S he has been maintaining a sinus rhythm. She continues to have lower extremity edema. Blood pressure is on the low side. Renal function has worsened. Blood pressure 99/62, heart rate 69, pulse ox 94% on room air. Repeat blood work reveals WBC 14, hemoglobin 9.6, INR 1.3. BUN 51 creatinine 2.45. AST 785, ALT 1678, alkaline phosphatase 157. C-reactive protein 6.1. Echocardiogram is pending. The physical examination is remarkable for distant heart sounds with regular rate and rhythm and soft systolic murmur and diminished breathing sounds bilaterally and mild bilateral lower extremities edema 02/03/2025 Patient seen and examined. Patient is on IV Lasix 40 mg daily per nephrology. Echocardiogram is pending. Patient continues to have upper extremity edema, lower extremity edema is improving. Blood pressure 118/73, heart rate 60, pulse ox 97% on room air. Repeat blood work reveals hemoglobin 9.8, sodium 127, potassium 4.7, BUN 49 creatinine 2.19. AST 495, ALT 1302. FINAL ASSESSMENT AND PLAN: Ventricular tachycardia Congestive heart failure Ischemic cardiomyopathy Status post AICD History of multivessel coronary artery disease Chronic kidney disease Status post nephrectomy Acute kidney injury PLAN: Continue amiodarone 200 mg twice daily orally, Coreg 6.25 mg twice daily Patient is currently on IV Lasix 40 mg daily per nephrology Due to hypotension, patient is not on KYLEE/ARB/ARNI Continue monitoring the liver function test Follow-up with the patient Follow-up with the echocardiogram Nurse practitioner note has been reviewed, I agree with documented findings and plan of care. Patient was seen and examined. Objective - Vital Signs Vital signs: Vital Signs Temp 98.1 F 02/03/25 03:44 Pulse 64 02/03/25 03:44 Resp 16 02/03/25 03:44 BP 120/77 02/03/25 03:44 Pulse Ox 97 02/03/25 03:44 FiO2 Intake & Output 02/02/25 02/03/25 02/03/25 18:59 06:59 18:59 Intake Total 300 25 Output Total 550 400 Balance -250 -375 Weight 105 kg Intake: IV 25 Invasive Line 1 5 Invasive Line 2 20 Oral 300 Output: Urine 550 400 Other: Voiding Method Indwelling Catheter Indwelling Catheter - Labs CBC & Chem 7: 02/03/25 09:12 02/03/25 09:12 Labs: Abnormal Lab Results - Last 24 Hours (Table) 02/02/25 02/02/25 02/02/25 Range/Units 05:47 05:47 05:47 WBC 14.00 H (4.50-10.00) 10*3/uL Neutrophils # (Manual) 11.76 H (1.3-7.7) k/uL Lymphocytes # (Manual) 0.98 L (1.0-4.8) k/uL Myelocytes # (Manual) 0.42 H (0) k/uL Nucleated RBCs 7 H (0-0) /100 WBC POC Glucose (mg/dL) (70-110) mg/dL Iron (50-170) UG/DL Transferrin (204.0-354.0) mg/dL Ferritin (10.0-291.0) ng/mL CMV IgG Ab Reactive A (Nonreactive) EBV Capsid Ag IgG Intrp Positive A (Negative) EBV Nuc Ag IgG Interp Positive A (Negative) 02/02/25 02/02/25 02/02/25 Range/Units 05:47 08:22 11:35 WBC (4.50-10.00) 10*3/uL Neutrophils # (Manual) (1.3-7.7) k/uL Lymphocytes # (Manual) (1.0-4.8) k/uL Myelocytes # (Manual) (0) k/uL Nucleated RBCs (0-0) /100 WBC POC Glucose (mg/dL) 266 H 328 H (70-110) mg/dL Iron 39 L (50-170) UG/DL Transferrin 194.0 L (204.0-354.0) mg/dL Ferritin 4034.0 H (10.0-291.0) ng/mL CMV IgG Ab (Nonreactive) EBV Capsid Ag IgG Intrp (Negative) EBV Nuc Ag IgG Interp (Negative) 02/02/25 02/02/25 02/02/25 Range/Units 14:05 16:32 20:09 WBC (4.50-10.00) 10*3/uL Neutrophils # (Manual) (1.3-7.7) k/uL Lymphocytes # (Manual) (1.0-4.8) k/uL Myelocytes # (Manual) (0) k/uL Nucleated RBCs (0-0) /100 WBC POC Glucose (mg/dL) 355 H 363 H 328 H (70-110) mg/dL Iron (50-170) UG/DL Transferrin (204.0-354.0) mg/dL Ferritin (10.0-291.0) ng/mL CMV IgG Ab (Nonreactive) EBV Capsid Ag IgG Intrp (Negative) EBV Nuc Ag IgG Interp (Negative) 02/03/25 Range/Units 06:09 WBC (4.50-10.00) 10*3/uL Neutrophils # (Manual) (1.3-7.7) k/uL Lymphocytes # (Manual) (1.0-4.8) k/uL Myelocytes # (Manual) (0) k/uL Nucleated RBCs (0-0) /100 WBC POC Glucose (mg/dL) 235 H (70-110) mg/dL Iron (50-170) UG/DL Transferrin (204.0-354.0) mg/dL Ferritin (10.0-291.0) ng/mL CMV IgG Ab (Nonreactive) EBV Capsid Ag IgG Intrp (Negative) EBV Nuc Ag IgG Interp (Negative)
--- NOTE | 2025-02-03 12:56 | P.PN ---
Subjective Progress Note Date: 02/01/25 patient 74-year-old lady with past medical history significant for coronary artery disease, heart failure, hyperlipidemia, hypertension who presented the ER for elevated blood sugar levels. Patient stated recently she had nephrectomy done at another facility, following that patient was recuperating well. There was no complaint of any abdominal pain. Patient denies any nausea or vomiting. There was no complaint of chest pain. Patient denies any complain of palpitations. There was no complaint of orthopnea or PND. Patient denies any complaint of dizziness. There is no complaint of headache. Patient checked her blood sugars at home and was found to be elevated and decided to come to the ER. Initial lab work done in the ER showed WBC 10.93, hemoglobin 10.9, platelet count 84, sodium 131, potassium 5.7, BUN 37, creatinine 1.92, glucose 239, bilirubin 1.4 AST 644, ALT 516 troponin 0.922 proBNP 08279 Chest x-ray done in the ERShowed chronic changes without acute pulmonary CT abdomen pelvis done showed small to moderate bilateral pleural effusion with compressive atelectasis, fractures of multiple left lower ribs. Mild anasarca. Gallbladder is underdistended filled with hyperdense sludge and contains a 4 mm stone in the neck Initial EKG showing patient to be in V. tach, initially patient was hemodynamic stable and was started on amiodarone drip, following that patient became hypotensive and had to be cardioverted with 100 J. Patient admitted to internal medicine service 02/01. Patient seen and examined. Vital signs show temperature 98.3, heart rate 71, blood pressure 171/105, currently on room air. Labs reviewed this morning showing WBC 10.92, hemoglobin 9.6, sodium 133, potassium 5.1, AST 2108, ALT 2230. Denies abdominal pain. Has swelling of upper extremities denies any shortness of breath at rest. 02/02 Patient seen at bedside. Overnight team reported little urine output overnight via gaston on 40mg of Lasix QD. Still feeling weakness, shortness of breath, feeling edemetous, does not feel like she can walk. 02/03 Patient seen at bedside, appears greatly improved since yesterday, is sitting in comode today. She reports feeling improved but still ill. Having an easier time breathing, able to get out of bed today. Family with her says she has been eating more than the previous day. Pertinent positives and negatives discussed above, a complete review of systems was preformed and all the other sytems were negative. General: non toxic, no distress, appears at stated age, AOx3, slow to respond to questions, unsure of dates,. Derm: no unusual rashes/lesions, warm Head: atraumatic, normocephalic, symmetric Eyes: EOMI, no lid lag, anicteric sclera, pupils equal round reactive to light ENT: Nose and ears atraumatic Neck: No cervical lymphadenopathy, trachea midline, supple, no JVD Mouth: no lip lesion, mucus membranes moist Cardiovascular: S1S2 reg, no murmur, positive dorsalis pedis pulse bilateral, 2+ edema of the upper and lower extremities, skin tense, Lungs: Decreased air entry bilaterally, no rhonchi, no rales, no accessory muscle use Abdominal: soft, nontender to palpation, no guarding Ext: muscle strength 4 out of 5 in all 4 extremities grossly, no gross muscle atrophy, no contractures, Neuro: CN II-XI grossly intact, no gross focal neuro deficits Assessment and plan #Drug Induced Liver Injury with Elevated LFT Avoid hepatotoxic medications Daily CMP Diet as tolerated Maintain optimal blood pressures No further indication for GI #VTac and CAD Continue amiodarone orally Continue monitoring the liver function test Taper down the dose of amiodarone Increase the dose of carvedilol #Uncontrolled Blood Sugar Sliding scale insulin per protocol Basal Dose Lantus 10 BID Humolog 5 AC-TID DVT Prophylaxis GI Prophylaxis Full Code Attestation I have seen and examined this patient with my resident , discussed the same with the resident/AAMIR, and agree with the dictator's assessment and plan as written Dr. Anjel garcia Objective - Vital Signs Vital signs: Vital Signs Temp 98.5 F 02/03/25 12:44 Pulse 100 02/03/25 12:44 Resp 14 02/03/25 12:44 BP 111/67 02/03/25 12:44 Pulse Ox 96 02/03/25 12:44 FiO2 Intake & Output 02/02/25 02/03/25 02/03/25 18:59 06:59 18:59 Intake Total 300 25 160 Output Total 550 400 Balance -250 -375 160 Weight 105 kg Intake: IV 25 10 Invasive Line 1 5 Invasive Line 2 20 Invasive Line 3 10 Oral 300 150 Output: Urine 550 400 Other: Voiding Method Indwelling Catheter Indwelling Catheter Indwelling Catheter - Labs CBC & Chem 7: 02/04/25 06:15 02/04/25 06:15 Labs: Abnormal Lab Results - Last 24 Hours (Table) 02/02/25 02/02/25 02/02/25 Range/Units 05:43 05:47 05:47 WBC (4.50-10.00) 10*3/uL RBC (4.10-5.20) 10*6/uL Hgb (12.0-15.0) g/dL Hct (37.2-46.3) % MCH (27.0-32.0) pg Plt Count (140-440) 10*3/uL MPV (9.5-12.2) fL Immature Gran # (0.00-0.04) 10*3/uL Neutrophils # (Manual) (1.3-7.7) k/uL Metamyelocytes # (Man) (0) k/uL Myelocytes # (Manual) (0) k/uL Nucleated RBCs (0-0) /100 WBC Sodium (137-145) mmol/L Carbon Dioxide (22-30) mmol/L BUN (7-17) mg/dL Creatinine (0.52-1.04) mg/dL Glucose (74-99) mg/dL POC Glucose (mg/dL) 312 H (70-110) mg/dL Iron (50-170) UG/DL Transferrin (204.0-354.0) mg/dL Ferritin (10.0-291.0) ng/mL Delta Bilirubin (0.0-0.2) mg/dL AST (14-36) U/L ALT (4-34) U/L Total Protein (6.3-8.2) g/dL Albumin (3.5-5.0) g/dL CMV IgG Ab Reactive A (Nonreactive) EBV Capsid Ag IgG Intrp Positive A (Negative) EBV Nuc Ag IgG Interp Positive A (Negative) 02/02/25 02/02/25 02/02/25 Range/Units 05:47 14:05 16:32 WBC (4.50-10.00) 10*3/uL RBC (4.10-5.20) 10*6/uL Hgb (12.0-15.0) g/dL Hct (37.2-46.3) % MCH (27.0-32.0) pg Plt Count (140-440) 10*3/uL MPV (9.5-12.2) fL Immature Gran # (0.00-0.04) 10*3/uL Neutrophils # (Manual) (1.3-7.7) k/uL Metamyelocytes # (Man) (0) k/uL Myelocytes # (Manual) (0) k/uL Nucleated RBCs (0-0) /100 WBC Sodium (137-145) mmol/L Carbon Dioxide (22-30) mmol/L BUN (7-17) mg/dL Creatinine (0.52-1.04) mg/dL Glucose (74-99) mg/dL POC Glucose (mg/dL) 355 H 363 H (70-110) mg/dL Iron 39 L (50-170) UG/DL Transferrin 194.0 L (204.0-354.0) mg/dL Ferritin 4034.0 H (10.0-291.0) ng/mL Delta Bilirubin (0.0-0.2) mg/dL AST (14-36) U/L ALT (4-34) U/L Total Protein (6.3-8.2) g/dL Albumin (3.5-5.0) g/dL CMV IgG Ab (Nonreactive) EBV Capsid Ag IgG Intrp (Negative) EBV Nuc Ag IgG Interp (Negative) 02/02/25 02/03/25 02/03/25 Range/Units 20:09 06:09 09:12 WBC (4.50-10.00) 10*3/uL RBC (4.10-5.20) 10*6/uL Hgb (12.0-15.0) g/dL Hct (37.2-46.3) % MCH (27.0-32.0) pg Plt Count (140-440) 10*3/uL MPV (9.5-12.2) fL Immature Gran # (0.00-0.04) 10*3/uL Neutrophils # (Manual) (1.3-7.7) k/uL Metamyelocytes # (Man) (0) k/uL Myelocytes # (Manual) (0) k/uL Nucleated RBCs (0-0) /100 WBC Sodium 127 L (137-145) mmol/L Carbon Dioxide 19 L (22-30) mmol/L BUN 49 H (7-17) mg/dL Creatinine 2.19 H (0.52-1.04) mg/dL Glucose 199 H (74-99) mg/dL POC Glucose (mg/dL) 328 H 235 H (70-110) mg/dL Iron (50-170) UG/DL Transferrin (204.0-354.0) mg/dL Ferritin (10.0-291.0) ng/mL Delta Bilirubin 0.6 H (0.0-0.2) mg/dL AST 495 H (14-36) U/L ALT 1302 H (4-34) U/L Total Protein 4.8 L (6.3-8.2) g/dL Albumin 2.6 L (3.5-5.0) g/dL CMV IgG Ab (Nonreactive) EBV Capsid Ag IgG Intrp (Negative) EBV Nuc Ag IgG Interp (Negative) 02/03/25 02/03/25 Range/Units 09:12 11:23 WBC 12.22 H (4.50-10.00) 10*3/uL RBC 3.00 L (4.10-5.20) 10*6/uL Hgb 9.8 L (12.0-15.0) g/dL Hct 28.9 L (37.2-46.3) % MCH 32.7 H (27.0-32.0) pg Plt Count 103 L (140-440) 10*3/uL MPV 12.8 H (9.5-12.2) fL Immature Gran # 1.65 H (0.00-0.04) 10*3/uL Neutrophils # (Manual) 9.40 H (1.3-7.7) k/uL Metamyelocytes # (Man) 0.24 H (0) k/uL Myelocytes # (Manual) 0.12 H (0) k/uL Nucleated RBCs 16 H (0-0) /100 WBC Sodium (137-145) mmol/L Carbon Dioxide (22-30) mmol/L BUN (7-17) mg/dL Creatinine (0.52-1.04) mg/dL Glucose (74-99) mg/dL POC Glucose (mg/dL) 226 H (70-110) mg/dL Iron (50-170) UG/DL Transferrin (204.0-354.0) mg/dL Ferritin (10.0-291.0) ng/mL Delta Bilirubin (0.0-0.2) mg/dL AST (14-36) U/L ALT (4-34) U/L Total Protein (6.3-8.2) g/dL Albumin (3.5-5.0) g/dL CMV IgG Ab (Nonreactive) EBV Capsid Ag IgG Intrp (Negative) EBV Nuc Ag IgG Interp (Negative)
[2025-02-03] MEDS: DARBEPOETIN ALFA 40 MCG/0.4 ML SYRINGE SQ SCH (12:59)
[2025-02-03 16:23] LABS: Glucose,Whole Blood 302 mg/dL (70-110)
[2025-02-03] MEDS: FUROSEMIDE 10 MG/ML 4 ML VIAL IV ONE (16:56)
[2025-02-03 20:02] LABS: Glucose,Whole Blood 359 mg/dL (70-110)
[2025-02-04 06:19] LABS: Glucose,Whole Blood 207 mg/dL (70-110)
[2025-02-04 07:36] LABS: HCT 29.7 % (37.2-46.3); HGB 10.0 g/dL (12.0-15.0); MCH 31.7 pg (27.0-32.0); MCHC 33.7 g/dL (32.0-37.0); MCV 94.3 fL (80.0-97.0); Platelet Count 102 10*3/uL (140-440); RBC 3.15 10*6/uL (4.10-5.20); RDW 15.6 % (11.5-14.5)
[2025-02-04 07:54] LABS: AST 239 U/L (14-36); African American GFR (CKD) 24 (>60 ml/min/1.73 sqM); Albumin 2.6 g/dL (3.5-5.0); Alkaline Phosphatase 173 U/L (38-126); Anion Gap 7 mmol/L; Blood Urea Nitrogen 50 mg/dL (7-17); Calcium 8.8 mg/dL (8.4-10.2); Carbon Dioxide 28 mmol/L (22-30); Chloride 98 mmol/L (98-107); Glucose 193 mg/dL (74-99); Magnesium 1.8 mg/dL (1.6-2.3); Non-African American GFR(CKD) 21 (>60 ml/min/1.73 sqM); Potassium 3.7 mmol/L (3.5-5.1); Sodium 133 mmol/L (137-145); Total Protein 4.7 g/dL (6.3-8.2)
[2025-02-04 08:07] LABS: ALT 933 U/L (4-34)
[2025-02-04 08:41] LABS: Metamyelocytes # (M) 0.10 k/uL (0); Myelocytes # (M) 0.10 k/uL (0); Neutrophils % (M) 77 %; Total Cells Counted 200
[2025-02-04 08:42] LABS: Eosinophils # (M) 0.38 k/uL (0-0.7); Lymphocytes # (M) 1.14 k/uL (1.0-4.8); Monocytes # (M) 0.48 k/uL (0-1.0); Neutrophils # (M) 7.44 k/uL (1.3-7.7); WBC 9.54 10*3/uL (4.50-10.00)
[2025-02-04] MEDS ORDERED: DEXTROSE 50% SYRINGE 50 ML IVP PRN ×2 (08:57)
[2025-02-04 11:15] LABS: Glucose,Whole Blood 180 mg/dL (70-110)
--- NOTE | 2025-02-04 11:39 | P.PN ---
Subjective Progress Note Date: 02/04/25 Principal diagnosis: Transaminitis This is a pleasant 74-year-old female with multiple comorbidities including diabetes mellitus, coronary artery disease with multiple stents, heart failure, hyperlipidemia, hypertension, myocardial infarction, aortic valve replacement, chronic kidney disease who underwent a left nephrectomy about a week ago who presented to the emergency department yesterday with elevated blood sugars since her surgery. Patient is admitted with multiple consultants. Was noted to have ventricular tachycardia during her emergency room visit and underwent c ardioversion on 01/31/2025. She was noted to have elevated troponin on admission with significant increase in 01/31/2025. Also noted on admission to be hypotensive with blood pressures in the 60s over 40s. On admission she was noted to have elevated total bilirubin 1.4 AST 644 ALT 516 alkaline phosphatase 114 with continued elevation with a repeat today of 1.321 03/26/1929 140 respectively. Gastroenterology was consulted secondary to transaminitis and patient also had CT scan that reported gallstones and gall sludge and possible gallstone in the gallbladder neck. Patient denies any abdominal pain, nausea or vomiting. She has not been having any right upper quadrant abdominal pain. Denies any history of liver disease. Hepatitis panel is nonreactive. Also noted to be thrombocytopenic with leukocytosis on admission as well. 02/02/2025 Patient seen and examined today as a follow-up. Denies any abdominal pain in the right upper quadrant. Patient has quite a bit of extensive bruising and hematoma to the left side of her abdomen and arm from previous fall. States just a generalized full feeling. No nausea or vomiting. She has been afebrile. Today's labs WBC 14.9 hemoglobin 9.6 platelet count 111,000 INR 1.3 total bilirubin 1.2 AST 785 ALT 1678 alkaline phosphatase 157 02/03/2025 Patient seen and examined today as a follow-up. Had an episode with nausea and vomiting x 1 yesterday when she went for a chest x-ray. Otherwise again no complaints of right upper quadrant abdominal pain. LFTs continue to improve. Total bilirubin 1.3 conjugated bili 0.0 unconjugated bili 0.7 AST 495 ALT 1302 alkaline phosphatase 125 CMV IgG antibody reactive, IgM pending. EBV IgM negative 02/04/2025 Patient seen and examined today as a follow-up. No acute changes. LFTs continue to trend down. Total bilirubin 1.2 AST 239 ALT 933 alkaline phosphatase 173. Objective - Vital Signs Vital signs: Vital Signs Temp 98.2 F 02/04/25 09:44 Pulse 92 02/04/25 09:44 Resp 16 02/04/25 09:44 BP 105/68 02/04/25 09:44 Pulse Ox 97 02/04/25 09:44 FiO2 Intake & Output 02/03/25 02/04/25 02/04/25 18:59 06:59 18:59 Intake Total 790 Output Total 1425 2175 Balance -635 -2175 Weight 69 kg Intake: IV 10 Invasive Line 3 10 Oral 780 Output: Urine 1425 2175 Other: Voiding Method Indwelling Catheter Indwelling Catheter - Exam General appearance: The patient is alert, oriented, appears in no acute distress . HET: Head is normocephalic and atraumatic. Conjunctiva pink. Sclera anicteric. Neck: Supple without lymphadenopathy. Abdomen: Soft, nontender right upper quadrant and epigastric region, tenderness along left lateral abdomen over bruising and hematoma, nondistended. Extremities: Normal skin color and turgor. No pedal edema Skin: No rashes, no jaundice Neurological: No focal deficits. Alert and oriented. - Labs CBC & Chem 7: 02/04/25 06:15 02/04/25 06:15 Labs: Abnormal Lab Results - Last 24 Hours (Table) 02/02/25 02/03/25 02/03/25 Range/Units 05:43 09:12 09:12 WBC 12.22 H (4.50-10.00) 10*3/uL RBC (4.10-5.20) 10*6/uL Hgb (12.0-15.0) g/dL Hct (37.2-46.3) % Plt Count (140-440) 10*3/uL MPV (9.5-12.2) fL Immature Gran # (0.00-0.04) 10*3/uL Neutrophils # (Manual) 9.40 H (1.3-7.7) k/uL Metamyelocytes # (Man) 0.24 H (0) k/uL Myelocytes # (Manual) 0.12 H (0) k/uL Nucleated RBCs 16 H (0-0) /100 WBC Sodium 127 L (137-145) mmol/L Carbon Dioxide 19 L (22-30) mmol/L BUN 49 H (7-17) mg/dL Creatinine 2.19 H (0.52-1.04) mg/dL Glucose 199 H (74-99) mg/dL POC Glucose (mg/dL) 312 H (70-110) mg/dL Delta Bilirubin 0.6 H (0.0-0.2) mg/dL AST 495 H (14-36) U/L ALT 1302 H (4-34) U/L Alkaline Phosphatase (38-126) U/L Total Protein 4.8 L (6.3-8.2) g/dL Albumin 2.6 L (3.5-5.0) g/dL 02/03/25 02/03/25 02/03/25 Range/Units 11:23 16:19 20:00 WBC (4.50-10.00) 10*3/uL RBC (4.10-5.20) 10*6/uL Hgb (12.0-15.0) g/dL Hct (37.2-46.3) % Plt Count (140-440) 10*3/uL MPV (9.5-12.2) fL Immature Gran # (0.00-0.04) 10*3/uL Neutrophils # (Manual) (1.3-7.7) k/uL Metamyelocytes # (Man) (0) k/uL Myelocytes # (Manual) (0) k/uL Nucleated RBCs (0-0) /100 WBC Sodium (137-145) mmol/L Carbon Dioxide (22-30) mmol/L BUN (7-17) mg/dL Creatinine (0.52-1.04) mg/dL Glucose (74-99) mg/dL POC Glucose (mg/dL) 226 H 302 H 359 H (70-110) mg/dL Delta Bilirubin (0.0-0.2) mg/dL AST (14-36) U/L ALT (4-34) U/L Alkaline Phosphatase (38-126) U/L Total Protein (6.3-8.2) g/dL Albumin (3.5-5.0) g/dL 02/04/25 02/04/25 02/04/25 Range/Units 06:15 06:15 06:17 WBC (4.50-10.00) 10*3/uL RBC 3.15 L (4.10-5.20) 10*6/uL Hgb 10.0 L (12.0-15.0) g/dL Hct 29.7 L (37.2-46.3) % Plt Count 102 L (140-440) 10*3/uL MPV 12.3 H (9.5-12.2) fL Immature Gran # 1.27 H (0.00-0.04) 10*3/uL Neutrophils # (Manual) (1.3-7.7) k/uL Metamyelocytes # (Man) 0.10 H (0) k/uL Myelocytes # (Manual) 0.10 H (0) k/uL Nucleated RBCs 6 H (0-0) /100 WBC Sodium 133 L (137-145) mmol/L Carbon Dioxide (22-30) mmol/L BUN 50 H (7-17) mg/dL Creatinine 2.24 H (0.52-1.04) mg/dL Glucose 193 H (74-99) mg/dL POC Glucose (mg/dL) 207 H (70-110) mg/dL Delta Bilirubin (0.0-0.2) mg/dL AST 239 H (14-36) U/L ALT 933 H (4-34) U/L Alkaline Phosphatase 173 H (38-126) U/L Total Protein 4.7 L (6.3-8.2) g/dL Albumin 2.6 L (3.5-5.0) g/dL Assessment and Plan (1) Acute hepatitis Narrative/Plan: 74-year-old female presenting with hyperglycemia, hypotension with ventricular tachycardia status post cardioversion with amiodarone drip with transaminitis secondary to acute ischemic hepatitis from shock liver. CT abdomen pelvis reporting gallbladder stones and sludge however patient is asymptomatic and abdominal ultrasound states likely dealing with a gallbladder polyp rather than stone near the neck, nonetheless the significant elevation of LFTs is not consistent with choledocholithiasis. Avoid hepatotoxic medications. Continue to monitor LFTs. LFTs are trending down, continue to monitor LFTs. Avoid hepatotoxic medications. No further workup at this time. Current Visit: Yes Status: Acute Code(s): B17.9 - ACUTE VIRAL HEPATITIS, UNSPECIFIED SNOMED Code(s): 86047131 (2) Elevated LFTs Current Visit: Yes Status: Acute Code(s): R79.89 - OTHER SPECIFIED ABNORMAL FINDINGS OF BLOOD CHEMISTRY SNOMED Code(s): 129677246 (3) Ventricular tachycardia Current Visit: Yes Status: Acute Code(s): I47.20 - VENTRICULAR TACHYCARDIA, UNSPECIFIED SNOMED Code(s): 13488893 (4) WENDY (acute kidney injury) Current Visit: No Status: Acute Code(s): N17.9 - ACUTE KIDNEY FAILURE, UNSPECIFIED SNOMED Code(s): 37417883 (5) CAD (coronary artery disease) Current Visit: No Status: Acute Code(s): I25.10 - ATHSCL HEART DISEASE OF [place] CORONARY ARTERY W/O ANG PCTRS SNOMED Code(s): 89462206 Plan: 1. Continue symptomatic and supportive care 2. Avoid hepatotoxic medications 3. Daily CMP 4. Diet as tolerated 5. Maintain optimal blood pressures 6. There is no indication for any further gastroenterology workup at this time Thank you for this consultation, recommend outpatient follow-up of LFTs, which can be done with primary care or may follow-up with gastroenterology. Gastroenterology will sign off at this time. Dr. Cristin Grewal I agree with the dictator's note, documented as a scribe by Niki Jimenez.
[2025-02-04] MEDS: INSULIN LISPRO (HumaLOG) 100 UNIT/ML 10 mL VL SQ SCH (11:49)
[2025-02-04 12:12] LABS: Iron 30.0 UG/DL (50-170); Total Iron Binding Capacity 265.0 UG/DL (228-460)
--- NOTE | 2025-02-04 12:17 | P.PN ---
Subjective Progress Note Date: 02/04/25 SURGICAL PROGRESS NOTE CHIEF COMPLAINT: Hyperglycemia HISTORY OF PRESENT ILLNESS: Patient received sponge bath this morning. She reports having a lot of flatus. Denies any bowel movement. Afebrile. WBC 12.2 down to 9.54 Hgb 10 total bilirubin 1.2 LFTs trending down alk phos elevated at 173 PHYSICAL EXAM: VITAL SIGNS: Reviewed. GENERAL: Well-developed in no acute distress. ABDOMEN: Soft. mild Tenderness with palpation across upper abdomen NEUROLOGIC: Alert and oriented. Cranial nerves II through XII grossly intact. ASSESSMENT: 1. 74-year-old female with concern for Gallbladder Polyp 2. Constipation 3. Elevated LFTs trending down. Patient seen by GI service PLAN: - No surgical intervention planned - Continue senna for constipation Physician Marketing Technologist note has been reviewed by physician. Signing provider agrees with the documented findings, assessment, and plan of care. Objective - Vital Signs Vital signs: Vital Signs Temp 98.1 F 02/04/25 11:53 Pulse 93 02/04/25 11:53 Resp 16 02/04/25 11:53 BP 112/73 02/04/25 11:53 Pulse Ox 99 02/04/25 11:53 FiO2 Intake & Output 02/03/25 02/04/25 02/04/25 18:59 06:59 18:59 Intake Total 790 250 Output Total 1425 2175 1125 Balance -245 -3424 -875 Weight 69 kg Intake: IV 10 10 Invasive Line 3 10 10 Oral 780 240 Output: Urine 1425 2175 1125 Other: Voiding Method Indwelling Catheter Indwelling Catheter Indwelling Catheter - Labs CBC & Chem 7: 02/04/25 06:15 02/04/25 06:15 Labs: Abnormal Lab Results - Last 24 Hours (Table) 02/03/25 02/03/25 02/04/25 Range/Units 16:19 20:00 06:15 RBC 3.15 L (4.10-5.20) 10*6/uL Hgb 10.0 L (12.0-15.0) g/dL Hct 29.7 L (37.2-46.3) % Plt Count 102 L (140-440) 10*3/uL MPV 12.3 H (9.5-12.2) fL Immature Gran # 1.27 H (0.00-0.04) 10*3/uL Metamyelocytes # (Man) 0.10 H (0) k/uL Myelocytes # (Manual) 0.10 H (0) k/uL Nucleated RBCs 6 H (0-0) /100 WBC Sodium (137-145) mmol/L BUN (7-17) mg/dL Creatinine (0.52-1.04) mg/dL Glucose (74-99) mg/dL POC Glucose (mg/dL) 302 H 359 H (70-110) mg/dL AST (14-36) U/L ALT (4-34) U/L Alkaline Phosphatase (38-126) U/L Total Protein (6.3-8.2) g/dL Albumin (3.5-5.0) g/dL 02/04/25 02/04/25 02/04/25 Range/Units 06:15 06:17 11:14 RBC (4.10-5.20) 10*6/uL Hgb (12.0-15.0) g/dL Hct (37.2-46.3) % Plt Count (140-440) 10*3/uL MPV (9.5-12.2) fL Immature Gran # (0.00-0.04) 10*3/uL Metamyelocytes # (Man) (0) k/uL Myelocytes # (Manual) (0) k/uL Nucleated RBCs (0-0) /100 WBC Sodium 133 L (137-145) mmol/L BUN 50 H (7-17) mg/dL Creatinine 2.24 H (0.52-1.04) mg/dL Glucose 193 H (74-99) mg/dL POC Glucose (mg/dL) 207 H 180 H (70-110) mg/dL AST 239 H (14-36) U/L ALT 933 H (4-34) U/L Alkaline Phosphatase 173 H (38-126) U/L Total Protein 4.7 L (6.3-8.2) g/dL Albumin 2.6 L (3.5-5.0) g/dL
--- NOTE | 2025-02-04 12:48 | P.PN ---
Subjective Progress Note Date: 02/04/25 Patient is seen in follow-up for acute kidney injury on chronic kidney disease. She is feeling better this morning. She continues to have improved appetite. She denies SOB today after an additional dose of lasix yesterday. She also denies chest pain, fatigue, or nausea. Sliding scale started today. She has adequate urine output. Creatinine 2.24 today, with a baseline of 1.7-2. Vital signs are stable. General: The patient no acute distress. HEENT: Head exam is unremarkable. LUNGS: No audible rhonchi or wheezes. HEART: Rate and Rhythm are regular. ABDOMEN: L sided abdominal tenderness EXTREMITITES: 1+ edema Objective - Vital Signs Vital signs: Vital Signs Temp 97.7 F 02/04/25 04:00 Pulse 91 02/04/25 04:00 Resp 16 02/04/25 04:00 BP 113/75 02/04/25 04:00 Pulse Ox 97 02/04/25 04:00 FiO2 Intake & Output 02/03/25 02/04/25 02/04/25 18:59 06:59 18:59 Intake Total 790 Output Total 1425 2175 Balance -635 -2175 Weight 69 kg Intake: IV 10 Invasive Line 3 10 Oral 780 Output: Urine 1425 2175 Other: Voiding Method Indwelling Catheter Indwelling Catheter - Labs CBC & Chem 7: 02/04/25 06:15 02/04/25 12:52 Labs: Abnormal Lab Results - Last 24 Hours (Table) 02/02/25 02/03/25 02/03/25 Range/Units 05:43 09:12 09:12 WBC 12.22 H (4.50-10.00) 10*3/uL RBC 3.00 L (4.10-5.20) 10*6/uL Hgb 9.8 L (12.0-15.0) g/dL Hct 28.9 L (37.2-46.3) % MCH 32.7 H (27.0-32.0) pg Plt Count 103 L (140-440) 10*3/uL MPV 12.8 H (9.5-12.2) fL Immature Gran # 1.65 H (0.00-0.04) 10*3/uL Neutrophils # (Manual) 9.40 H (1.3-7.7) k/uL Metamyelocytes # (Man) 0.24 H (0) k/uL Myelocytes # (Manual) 0.12 H (0) k/uL Nucleated RBCs 16 H (0-0) /100 WBC Sodium 127 L (137-145) mmol/L Carbon Dioxide 19 L (22-30) mmol/L BUN 49 H (7-17) mg/dL Creatinine 2.19 H (0.52-1.04) mg/dL Glucose 199 H (74-99) mg/dL POC Glucose (mg/dL) 312 H (70-110) mg/dL Delta Bilirubin 0.6 H (0.0-0.2) mg/dL AST 495 H (14-36) U/L ALT 1302 H (4-34) U/L Alkaline Phosphatase (38-126) U/L Total Protein 4.8 L (6.3-8.2) g/dL Albumin 2.6 L (3.5-5.0) g/dL 02/03/25 02/03/25 02/03/25 Range/Units 11:23 16:19 20:00 WBC (4.50-10.00) 10*3/uL RBC (4.10-5.20) 10*6/uL Hgb (12.0-15.0) g/dL Hct (37.2-46.3) % MCH (27.0-32.0) pg Plt Count (140-440) 10*3/uL MPV (9.5-12.2) fL Immature Gran # (0.00-0.04) 10*3/uL Neutrophils # (Manual) (1.3-7.7) k/uL Metamyelocytes # (Man) (0) k/uL Myelocytes # (Manual) (0) k/uL Nucleated RBCs (0-0) /100 WBC Sodium (137-145) mmol/L Carbon Dioxide (22-30) mmol/L BUN (7-17) mg/dL Creatinine (0.52-1.04) mg/dL Glucose (74-99) mg/dL POC Glucose (mg/dL) 226 H 302 H 359 H (70-110) mg/dL Delta Bilirubin (0.0-0.2) mg/dL AST (14-36) U/L ALT (4-34) U/L Alkaline Phosphatase (38-126) U/L Total Protein (6.3-8.2) g/dL Albumin (3.5-5.0) g/dL 02/04/25 02/04/25 02/04/25 Range/Units 06:15 06:15 06:17 WBC (4.50-10.00) 10*3/uL RBC 3.15 L (4.10-5.20) 10*6/uL Hgb 10.0 L (12.0-15.0) g/dL Hct 29.7 L (37.2-46.3) % MCH (27.0-32.0) pg Plt Count 102 L (140-440) 10*3/uL MPV 12.3 H (9.5-12.2) fL Immature Gran # 1.27 H (0.00-0.04) 10*3/uL Neutrophils # (Manual) (1.3-7.7) k/uL Metamyelocytes # (Man) 0.10 H (0) k/uL Myelocytes # (Manual) 0.10 H (0) k/uL Nucleated RBCs 6 H (0-0) /100 WBC Sodium 133 L (137-145) mmol/L Carbon Dioxide (22-30) mmol/L BUN 50 H (7-17) mg/dL Creatinine 2.24 H (0.52-1.04) mg/dL Glucose 193 H (74-99) mg/dL POC Glucose (mg/dL) 207 H (70-110) mg/dL Delta Bilirubin (0.0-0.2) mg/dL AST 239 H (14-36) U/L ALT 933 H (4-34) U/L Alkaline Phosphatase 173 H (38-126) U/L Total Protein 4.7 L (6.3-8.2) g/dL Albumin 2.6 L (3.5-5.0) g/dL Assessment and Plan Plan: Assessment: 1. Acute kidney injury secondary to ATN secondary to diuresis and hemodynamic instability. Creatinine 2.24 today. UA fairly benign. No hydronephrosis noted on ultrasound. 2. Chronic kidney disease stage IV secondary to solitary kidney with recent cr eatinine 1.7-1.9. 3. V. tach status post amiodarone drip. 4. Hyperkalemia secondary to acidosis, chronic kidney disease, potassium supplementation and hyperglycemia. Improved. 5. Shock liver. 6. Metabolic acidosis secondary to acute kidney injury. Better. On oral bicarb. 7. Volume overload. 8. Diabetes mellitus. 9. Urinary retention. Has gaston catheter. 10. LV systolic dysfunction with EF 10-15%. mildly increased posterior wall thickness. Severely reduced global LV systolic function. Plan: Increased IV lasix 40 mg daily to BID Potassium replacement 20mg today Diet - Recommended patient to increase protein intake and decrease salt - Fluid restrict 1200ml Started Aranesp Avoid nephrotoxins Continue to monitor renal function and urine output Void trial planned before d/c Check BMP and Mg Anton Kuo MD Internal Medicine PGY1 Nephrology service I have seen and examined the patient with resident and agree with A&P as written.
--- NOTE | 2025-02-04 12:56 | P.PN ---
Subjective Progress Note Date: 02/01/25 patient 74-year-old lady with past medical history significant for coronary artery disease, heart failure, hyperlipidemia, hypertension who presented the ER for elevated blood sugar levels. Patient stated recently she had nephrectomy done at another facility, following that patient was recuperating well. There was no complaint of any abdominal pain. Patient denies any nausea or vomiting. There was no complaint of chest pain. Patient denies any complain of palpitations. There was no complaint of orthopnea or PND. Patient denies any complaint of dizziness. There is no complaint of headache. Patient checked her blood sugars at home and was found to be elevated and decided to come to the ER. Initial lab work done in the ER showed WBC 10.93, hemoglobin 10.9, platelet count 84, sodium 131, potassium 5.7, BUN 37, creatinine 1.92, glucose 239, bilirubin 1.4 AST 644, ALT 516 troponin 0.922 proBNP 81325 Chest x-ray done in the ERShowed chronic changes without acute pulmonary CT abdomen pelvis done showed small to moderate bilateral pleural effusion with compressive atelectasis, fractures of multiple left lower ribs. Mild anasarca. Gallbladder is underdistended filled with hyperdense sludge and contains a 4 mm stone in the neck Initial EKG showing patient to be in V. tach, initially patient was hemodynamic stable and was started on amiodarone drip, following that patient became hypotensive and had to be cardioverted with 100 J. Patient admitted to internal medicine service 02/01. Patient seen and examined. Vital signs show temperature 98.3, heart rate 71, blood pressure 171/105, currently on room air. Labs reviewed this morning showing WBC 10.92, hemoglobin 9.6, sodium 133, potassium 5.1, AST 2108, ALT 2230. Denies abdominal pain. Has swelling of upper extremities denies any shortness of breath at rest. 02/02 Patient seen at bedside. Overnight team reported little urine output overnight via gaston on 40mg of Lasix QD. Still feeling weakness, shortness of breath, feeling edemetous, does not feel like she can walk. 02/03 Patient seen at bedside, appears greatly improved since yesterday, is sitting in comode today. She reports feeling improved but still ill. Having an easier time breathing, able to get out of bed today. Family with her says she has been eating more than the previous day. 02/04 Patient seen at bedside she said she is feeling much better for the first time since admission, she is energetic, feeling hungry, eating well, continuing to improve. Pertinent positives and negatives discussed above, a complete review of systems was preformed and all the other sytems were negative. General: non toxic, no distress, appears at stated age, AOx3, slow to respond to questions, unsure of dates,. Derm: no unusual rashes/lesions, warm Head: atraumatic, normocephalic, symmetric Eyes: EOMI, no lid lag, anicteric sclera, pupils equal round reactive to light ENT: Nose and ears atraumatic Neck: No cervical lymphadenopathy, trachea midline, supple, no JVD Mouth: no lip lesion, mucus membranes moist Cardiovascular: S1S2 reg, no murmur, positive dorsalis pedis pulse bilateral, +1 edema of the upper and lower extremities Lungs: Decreased air entry bilaterally, no rhonchi, no rales, no accessory muscle use Abdominal: soft, nontender to palpation, no guarding Ext: muscle strength 4 out of 5 in all 4 extremities grossly, no gross muscle atrophy, no contractures, Neuro: CN II-XI grossly intact, no gross focal neuro deficits Assessment and plan #Drug Induced Liver Injury with Elevated LFT Avoid hepatotoxic medications Daily CMP Diet as tolerated Maintain optimal blood pressures Ferratin and Iron post Arancep #VTac and CAD Continue amiodarone orally Continue monitoring the liver function test Increase the dose of carvedilol CXR to monitor acute fluid overload #Uncontrolled Blood Sugar Sliding scale insulin per protocol Basal Dose Lantus 10 BID Humolog 5 AC-TID PT/OT Today DVT Prophylaxis GI Prophylaxis Full Code DC: Continue downtrend LFT and CK Attestation I have seen and examined this patient with my resident , discussed the same with the resident/AAMIR, and agree with the dictator's assessment and plan as written Dr. Anjel garcia Objective - Vital Signs Vital signs: Vital Signs Temp 97.7 F 02/04/25 04:00 Pulse 91 02/04/25 04:00 Resp 16 02/04/25 04:00 BP 113/75 02/04/25 04:00 Pulse Ox 97 02/04/25 04:00 FiO2 Intake & Output 02/03/25 02/04/25 02/04/25 18:59 06:59 18:59 Intake Total 790 Output Total 1425 2175 Balance -635 -2178 Weight 69 kg Intake: IV 10 Invasive Line 3 10 Oral 780 Output: Urine 1425 2175 Other: Voiding Method Indwelling Catheter Indwelling Catheter - Labs CBC & Chem 7: 02/04/25 06:15 02/04/25 12:52 Labs: Abnormal Lab Results - Last 24 Hours (Table) 02/02/25 02/03/25 02/03/25 Range/Units 05:43 09:12 09:12 WBC 12.22 H (4.50-10.00) 10*3/uL RBC 3.00 L (4.10-5.20) 10*6/uL Hgb 9.8 L (12.0-15.0) g/dL Hct 28.9 L (37.2-46.3) % MCH 32.7 H (27.0-32.0) pg Plt Count 103 L (140-440) 10*3/uL MPV 12.8 H (9.5-12.2) fL Immature Gran # 1.65 H (0.00-0.04) 10*3/uL Neutrophils # (Manual) 9.40 H (1.3-7.7) k/uL Metamyelocytes # (Man) 0.24 H (0) k/uL Myelocytes # (Manual) 0.12 H (0) k/uL Nucleated RBCs 16 H (0-0) /100 WBC Sodium 127 L (137-145) mmol/L Carbon Dioxide 19 L (22-30) mmol/L BUN 49 H (7-17) mg/dL Creatinine 2.19 H (0.52-1.04) mg/dL Glucose 199 H (74-99) mg/dL POC Glucose (mg/dL) 312 H (70-110) mg/dL Delta Bilirubin 0.6 H (0.0-0.2) mg/dL AST 495 H (14-36) U/L ALT 1302 H (4-34) U/L Alkaline Phosphatase (38-126) U/L Total Protein 4.8 L (6.3-8.2) g/dL Albumin 2.6 L (3.5-5.0) g/dL 02/03/25 02/03/25 02/03/25 Range/Units 11:23 16:19 20:00 WBC (4.50-10.00) 10*3/uL RBC (4.10-5.20) 10*6/uL Hgb (12.0-15.0) g/dL Hct (37.2-46.3) % MCH (27.0-32.0) pg Plt Count (140-440) 10*3/uL MPV (9.5-12.2) fL Immature Gran # (0.00-0.04) 10*3/uL Neutrophils # (Manual) (1.3-7.7) k/uL Metamyelocytes # (Man) (0) k/uL Myelocytes # (Manual) (0) k/uL Nucleated RBCs (0-0) /100 WBC Sodium (137-145) mmol/L Carbon Dioxide (22-30) mmol/L BUN (7-17) mg/dL Creatinine (0.52-1.04) mg/dL Glucose (74-99) mg/dL POC Glucose (mg/dL) 226 H 302 H 359 H (70-110) mg/dL Delta Bilirubin (0.0-0.2) mg/dL AST (14-36) U/L ALT (4-34) U/L Alkaline Phosphatase (38-126) U/L Total Protein (6.3-8.2) g/dL Albumin (3.5-5.0) g/dL 02/04/25 02/04/25 02/04/25 Range/Units 06:15 06:15 06:17 WBC (4.50-10.00) 10*3/uL RBC 3.15 L (4.10-5.20) 10*6/uL Hgb 10.0 L (12.0-15.0) g/dL Hct 29.7 L (37.2-46.3) % MCH (27.0-32.0) pg Plt Count 102 L (140-440) 10*3/uL MPV 12.3 H (9.5-12.2) fL Immature Gran # 1.27 H (0.00-0.04) 10*3/uL Neutrophils # (Manual) (1.3-7.7) k/uL Metamyelocytes # (Man) 0.10 H (0) k/uL Myelocytes # (Manual) 0.10 H (0) k/uL Nucleated RBCs 6 H (0-0) /100 WBC Sodium 133 L (137-145) mmol/L Carbon Dioxide (22-30) mmol/L BUN 50 H (7-17) mg/dL Creatinine 2.24 H (0.52-1.04) mg/dL Glucose 193 H (74-99) mg/dL POC Glucose (mg/dL) 207 H (70-110) mg/dL Delta Bilirubin (0.0-0.2) mg/dL AST 239 H (14-36) U/L ALT 933 H (4-34) U/L Alkaline Phosphatase 173 H (38-126) U/L Total Protein 4.7 L (6.3-8.2) g/dL Albumin 2.6 L (3.5-5.0) g/dL
[2025-02-04] MEDS: POTASSIUM CHLORIDE ER 20 MEQ TAB.ER PO STA (13:10)
--- NOTE | 2025-02-04 13:45 | P.PN ---
Subjective Progress Note Date: 02/04/25 The patient was seen and evaluated this morning. She still feeling congested but no symptoms of chest pain or chest discomfort. She has been maintaining sinus rhythm on the current dose of amiodarone. Her liver function test are elevated. Will follow-up with the trend of liver function test and continue tapering down the dose of amiodarone. Beside that the pressure is elevated. I am going to increase the dose of carvedilol. Heparin will be discontinued later on today. Echo will be ordered as well. The physical examination is remarkable for distant heart sounds with regular rate and rhythm and soft systolic murmur and diminished breathing sounds bilaterally and mild bilateral lower extremities edema 02/02/2025 Patient seen and examined. Patient states that she is feeling better today. S he has been maintaining a sinus rhythm. She continues to have lower extremity edema. Blood pressure is on the low side. Renal function has worsened. Blood pressure 99/62, heart rate 69, pulse ox 94% on room air. Repeat blood work reveals WBC 14, hemoglobin 9.6, INR 1.3. BUN 51 creatinine 2.45. AST 785, ALT 1678, alkaline phosphatase 157. C-reactive protein 6.1. Echocardiogram is pending. The physical examination is remarkable for distant heart sounds with regular rate and rhythm and soft systolic murmur and diminished breathing sounds bilaterally and mild bilateral lower extremities edema 02/03/2025 Patient seen and examined. Patient is on IV Lasix 40 mg daily per nephrology. Echocardiogram is pending. Patient continues to have upper extremity edema, lower extremity edema is improving. Blood pressure 118/73, heart rate 60, pulse ox 97% on room air. Repeat blood work reveals hemoglobin 9.8, sodium 127, potassium 4.7, BUN 49 creatinine 2.19. AST 495, ALT 1302. 02/04/2025 Patient seen and examined. Patient has been maintained on IV Lasix 40 mg daily by nephrology. She does have improvement of the upper and lower extremity edema. Blood pressure 113/75, heart rate 91, pulse ox 97% on room air. Repeat blood work reveals hemoglobin 10, BUN 50 creatinine 2.24. Liver function test are improving with AST 239, ALT 933, alkaline phosphatase 173. Echocardiogram reveals EF of 10 to 15%, moderate right ventricular dilatation, moderate pulmonary hypertension, moderate mitral regurgitation, bioprosthetic valve in aortic position with mild aortic stenosis, severe tricuspid regurgitation. FINAL ASSESSMENT AND PLAN: Ventricular tachycardia Congestive heart failure Ischemic cardiomyopathy with EF of 10 to 15% Status post AICD History of multivessel coronary artery disease Chronic kidney disease Status post nephrectomy Acute kidney injury CKD Elevated liver function test PLAN: Continue amiodarone 200 mg twice daily orally, Coreg 6.25 mg twice daily Patient is currently on IV Lasix 40 mg daily per nephrology Due to poor renal function, patient is not on KYLEE/ARB/ARNI Continue monitoring the liver function test Follow-up with the patient Nurse practitioner note has been reviewed, I agree with documented findings and plan of care. Patient was seen and examined. Objective - Vital Signs Vital signs: Vital Signs Temp 97.7 F 02/04/25 04:00 Pulse 91 02/04/25 04:00 Resp 16 02/04/25 04:00 BP 113/75 02/04/25 04:00 Pulse Ox 97 02/04/25 04:00 FiO2 Intake & Output 02/03/25 02/04/25 02/04/25 18:59 06:59 18:59 Intake Total 790 Output Total 1425 2175 Balance -635 -2175 Weight 69 kg Intake: IV 10 Invasive Line 3 10 Oral 780 Output: Urine 1425 2175 Other: Voiding Method Indwelling Catheter Indwelling Catheter - Labs CBC & Chem 7: 02/04/25 06:15 02/04/25 06:15 Labs: Abnormal Lab Results - Last 24 Hours (Table) 02/02/25 02/03/25 02/03/25 Range/Units 05:43 09:12 09:12 WBC 12.22 H (4.50-10.00) 10*3/uL RBC 3.00 L (4.10-5.20) 10*6/uL Hgb 9.8 L (12.0-15.0) g/dL Hct 28.9 L (37.2-46.3) % MCH 32.7 H (27.0-32.0) pg Plt Count 103 L (140-440) 10*3/uL MPV 12.8 H (9.5-12.2) fL Immature Gran # 1.65 H (0.00-0.04) 10*3/uL Neutrophils # (Manual) 9.40 H (1.3-7.7) k/uL Metamyelocytes # (Man) 0.24 H (0) k/uL Myelocytes # (Manual) 0.12 H (0) k/uL Nucleated RBCs 16 H (0-0) /100 WBC Sodium 127 L (137-145) mmol/L Carbon Dioxide 19 L (22-30) mmol/L BUN 49 H (7-17) mg/dL Creatinine 2.19 H (0.52-1.04) mg/dL Glucose 199 H (74-99) mg/dL POC Glucose (mg/dL) 312 H (70-110) mg/dL Delta Bilirubin 0.6 H (0.0-0.2) mg/dL AST 495 H (14-36) U/L ALT 1302 H (4-34) U/L Alkaline Phosphatase (38-126) U/L Total Protein 4.8 L (6.3-8.2) g/dL Albumin 2.6 L (3.5-5.0) g/dL 02/03/25 02/03/25 02/03/25 Range/Units 11:23 16:19 20:00 WBC (4.50-10.00) 10*3/uL RBC (4.10-5.20) 10*6/uL Hgb (12.0-15.0) g/dL Hct (37.2-46.3) % MCH (27.0-32.0) pg Plt Count (140-440) 10*3/uL MPV (9.5-12.2) fL Immature Gran # (0.00-0.04) 10*3/uL Neutrophils # (Manual) (1.3-7.7) k/uL Metamyelocytes # (Man) (0) k/uL Myelocytes # (Manual) (0) k/uL Nucleated RBCs (0-0) /100 WBC Sodium (137-145) mmol/L Carbon Dioxide (22-30) mmol/L BUN (7-17) mg/dL Creatinine (0.52-1.04) mg/dL Glucose (74-99) mg/dL POC Glucose (mg/dL) 226 H 302 H 359 H (70-110) mg/dL Delta Bilirubin (0.0-0.2) mg/dL AST (14-36) U/L ALT (4-34) U/L Alkaline Phosphatase (38-126) U/L Total Protein (6.3-8.2) g/dL Albumin (3.5-5.0) g/dL 02/04/25 02/04/25 02/04/25 Range/Units 06:15 06:15 06:17 WBC 10.11 H (4.50-10.00) 10*3/uL RBC 3.15 L (4.10-5.20) 10*6/uL Hgb 10.0 L (12.0-15.0) g/dL Hct 29.7 L (37.2-46.3) % MCH (27.0-32.0) pg Plt Count 102 L (140-440) 10*3/uL MPV 12.3 H (9.5-12.2) fL Immature Gran # 1.27 H (0.00-0.04) 10*3/uL Neutrophils # (Manual) (1.3-7.7) k/uL Metamyelocytes # (Man) (0) k/uL Myelocytes # (Manual) (0) k/uL Nucleated RBCs (0-0) /100 WBC Sodium 133 L (137-145) mmol/L Carbon Dioxide (22-30) mmol/L BUN 50 H (7-17) mg/dL Creatinine 2.24 H (0.52-1.04) mg/dL Glucose 193 H (74-99) mg/dL POC Glucose (mg/dL) 207 H (70-110) mg/dL Delta Bilirubin (0.0-0.2) mg/dL AST 239 H (14-36) U/L ALT 933 H (4-34) U/L Alkaline Phosphatase 173 H (38-126) U/L Total Protein 4.7 L (6.3-8.2) g/dL Albumin 2.6 L (3.5-5.0) g/dL
[2025-02-04 14:12] LABS: African American GFR (CKD) 29 (>60 ml/min/1.73 sqM); Anion Gap 9 mmol/L; Blood Urea Nitrogen 51 mg/dL (7-17); Calcium 8.8 mg/dL (8.4-10.2); Carbon Dioxide 24 mmol/L (22-30); Chloride 98 mmol/L (98-107); Glucose 183 mg/dL (74-99); Magnesium 1.7 mg/dL (1.6-2.3); Non-African American GFR(CKD) 25 (>60 ml/min/1.73 sqM); Potassium 4.6 mmol/L (3.5-5.1); Sodium 131 mmol/L (137-145)
--- NOTE | 2025-02-04 15:31 | XR ---
EXAMINATION TYPE: XR chest 1V portable DATE OF EXAM: 02/04/2025 COMPARISON: 01/27/2029 CLINICAL INDICATION: Female, 74 years old with history of Plural Effusion; TECHNIQUE: Single frontal view of the chest is obtained. FINDINGS: There is a reverse right shoulder prosthesis. There is a cardiac pacemaker. There is been prior CABG surgery. There is mild hazy density in the left lung base likely indicating a mild pleural effusion essentiall y unchanged compared to prior study. The right lung is clear. There is no pneumothorax. There is no pulmonary vascular congestion or interstitial edema. IMPRESSION: Stable small left pleural effusion. [facility], , 02/04/2025 3:28 PM
[2025-02-04] MEDS: MAGNESIUM SULFATE-D5W PMX 1 GM in DEXTROSE/WATER 1 100ML.BAG IVPB SCH (15:47)
[2025-02-04 16:36] LABS: Glucose,Whole Blood 203 mg/dL (70-110)
--- NOTE | 2025-02-04 19:53 | CDI ---
Documentation Clarification Form Date: 02/04/2025 07:22:02 PM From: Nicolasa Berg RN, CCDS Phone: [phone] Admit Date: 01/31/2025 05:33:00 AM Patient Name: Gypsy Auguste Visit Number: [id number] Discharge Date: ATTENTION: The Clinical Documentation Specialists (CDI) and [facility] Coding Staff appreciate your assistance in clarifying documentation. Please respond to the clarification below the line at the bottom and electronically sign. The CDI & [facility] Coding staff will review the response and follow-up if needed. Please note: Queries are made part of the Legal Health Record. If you have any questions, please contact the author of this message via ITS. Doctor. Anjel Butcher Your patient has the documented diagnosis of unspecified Acute CHF in the medicine H/P and subsequent progress notes. Additional information regarding the [type, acuity] of CHF is requested. History/Risk Factors: Hypertension, Coronary artery disease, Heart failure, Hyperlipidemia, Nephrectomy Clinical Indicators: 74-year-old female present with elevated blood sugar levels. 01/31 CXR: Chronic changes without acute pulmonary process. 01/31 CT Abd/Pelvis: Small to moderate bilateral pleural effusions with compressive atelectasis, more on the left. 02/02 CXR: Small bilateral pleural effusions and cardiomegaly without overt pulmonary edema. VS/Pulse OX: 01/31 (07:47) 18398 75 18 96% RA 01/31 BNP: 13782 02/03 Echocardiogram Results: Left ventricular ejection fraction is estimated at 10-15 %.Mildly increased posterior wall thickness. Severe LV systolic dysfunction. Moderate pulmonary hypertension. Moderate mitral regurgitation Bioprosthetic valve in aortic position with mild aortic stenosis. Severe tricuspid regurgitation Treatment: Tobacco Wetter / Telemetry Coreg 3.125 MG PO BID 01/31-02/01>6.25 MG PO 02/01-02/04 Lasix 40MG IV ONCE 01/22>40 MG IV Daily 02/01-02/04 Lasix 40MG IV BID 02/04 In your professional opinion, can you please clarify the type of Acute CHF if known? [ ] Acute Systolic Heart Failure (reduced EF) [x ] Acute on Chronic Systolic Heart Failure (reduced EF) [ ] Other, please specify [ ] Unable to determine (Template Last Revised: September 2020) MTDD
[2025-02-04] MEDS: FUROSEMIDE 10 MG/ML 4 ML VIAL IV SCH (19:56)
[2025-02-04 20:12] LABS: Glucose,Whole Blood 251 mg/dL (70-110)
--- NOTE | 2025-02-04 22:04 | P.PN ---
Subjective Progress Note Date: 02/04/25 Principal diagnosis: Reason for follow-up is leukocytosis and elevated liver enzymes Patient is a 74-year-old female with a past medical history significant for multiple comorbidity includingAsthma, Coronary Artery Disease (CAD), Chest Pain / Angina, Heart Failure, Diabetes Mellitus, GERD/Reflux, Hyperlipidemia, Hypertension, Myocardial Infarction (AK), Osteoarthritis (OA), Pneumonia, Renal Disease, Syncope, recently did have left nephrectomy has been brought to the hospital for palpitation and noticed to have ventricular tachycardia requiring shock resuscitation and subsequent transfer to this facility patient noticed to have elevated liver enzymes and abdominal ultrasound prompting this consultation. On today's evaluation that is 02/04/2025,the patient remains to be afebrile, patient is on room air not requiring supplemental oxygen and denies any shortnes s of breath no chest pain or cough.Patient denies having any nausea or vomiting, no abdominal pain and no diarrhea, mention feeling slightly better. Patient what was 1.4, creatinine is 1.96 liver enzymes trending down bilirubin normalized Objective - Vital Signs Vital signs: Vital Signs Temp 98 F 02/04/25 19:06 Pulse 91 02/04/25 19:06 Resp 16 02/04/25 19:06 BP 119/82 02/04/25 19:06 Pulse Ox 94 L 02/04/25 19:06 FiO2 Intake & Output 02/04/25 02/04/25 02/05/25 06:59 18:59 06:59 Intake Total 620 10 Output Total 2174 2024 Balance -2175 -1405 10 Weight 69 kg 69 kg Intake: IV 20 10 Invasive Line 3 20 10 Oral 600 Output: Urine 2174 2024 Other: Voiding Method Indwelling Catheter Indwelling Catheter Indwelling Catheter - Exam GENERAL DESCRIPTION: An elderly female lying in bed in no distress RESPIRATORY SYSTEM: Unlabored breathing , decreased breath sounds at bases HEART: S1 S2 regular rate and rhythm , ABDOMEN: Soft , no tenderness EXTREMITIES: No edema feet - Labs CBC & Chem 7: 02/04/25 06:15 02/04/25 12:52 Labs: Abnormal Lab Results - Last 24 Hours (Table) 02/04/25 02/04/25 02/04/25 Range/Units 06:15 06:15 06:15 RBC 3.15 L (4.10-5.20) 10*6/uL Hgb 10.0 L (12.0-15.0) g/dL Hct 29.7 L (37.2-46.3) % Plt Count 102 L (140-440) 10*3/uL MPV 12.3 H (9.5-12.2) fL Immature Gran # 1.27 H (0.00-0.04) 10*3/uL Metamyelocytes # (Man) 0.10 H (0) k/uL Myelocytes # (Manual) 0.10 H (0) k/uL Nucleated RBCs 6 H (0-0) /100 WBC Sodium 133 L (137-145) mmol/L BUN 50 H (7-17) mg/dL Creatinine 2.24 H (0.52-1.04) mg/dL Glucose 193 H (74-99) mg/dL POC Glucose (mg/dL) (70-110) mg/dL Iron (50-170) UG/DL % Saturation (12.00-45.00) Transferrin (204.0-354.0) mg/dL Ferritin 1139.0 H (10.0-291.0) ng/mL AST 239 H (14-36) U/L ALT 933 H (4-34) U/L Alkaline Phosphatase 173 H (38-126) U/L Total Protein 4.7 L (6.3-8.2) g/dL Albumin 2.6 L (3.5-5.0) g/dL 02/04/25 02/04/25 02/04/25 Range/Units 06:15 06:17 11:14 RBC (4.10-5.20) 10*6/uL Hgb (12.0-15.0) g/dL Hct (37.2-46.3) % Plt Count (140-440) 10*3/uL MPV (9.5-12.2) fL Immature Gran # (0.00-0.04) 10*3/uL Metamyelocytes # (Man) (0) k/uL Myelocytes # (Manual) (0) k/uL Nucleated RBCs (0-0) /100 WBC Sodium (137-145) mmol/L BUN (7-17) mg/dL Creatinine (0.52-1.04) mg/dL Glucose (74-99) mg/dL POC Glucose (mg/dL) 207 H 180 H (70-110) mg/dL Iron 30 L (50-170) UG/DL % Saturation 11.32 L (12.00-45.00) Transferrin 189.0 L (204.0-354.0) mg/dL Ferritin (10.0-291.0) ng/mL AST (14-36) U/L ALT (4-34) U/L Alkaline Phosphatase (38-126) U/L Total Protein (6.3-8.2) g/dL Albumin (3.5-5.0) g/dL 02/04/25 02/04/25 02/04/25 Range/Units 12:52 16:35 20:11 RBC (4.10-5.20) 10*6/uL Hgb (12.0-15.0) g/dL Hct (37.2-46.3) % Plt Count (140-440) 10*3/uL MPV (9.5-12.2) fL Immature Gran # (0.00-0.04) 10*3/uL Metamyelocytes # (Man) (0) k/uL Myelocytes # (Manual) (0) k/uL Nucleated RBCs (0-0) /100 WBC Sodium 131 L (137-145) mmol/L BUN 51 H (7-17) mg/dL Creatinine 1.96 H (0.52-1.04) mg/dL Glucose 183 H (74-99) mg/dL POC Glucose (mg/dL) 203 H 251 H (70-110) mg/dL Iron (50-170) UG/DL % Saturation (12.00-45.00) Transferrin (204.0-354.0) mg/dL Ferritin (10.0-291.0) ng/mL AST (14-36) U/L ALT (4-34) U/L Alkaline Phosphatase (38-126) U/L Total Protein (6.3-8.2) g/dL Albumin (3.5-5.0) g/dL Assessment and Plan (1) Elevated liver enzymes Current Visit: Yes Status: Acute Code(s): R74.8 - ABNORMAL LEVELS OF OTHER SERUM ENZYMES SNOMED Code(s): 095335301 (2) Leukocytosis Current Visit: Yes Status: Acute Code(s): D72.829 - ELEVATED WHITE BLOOD CELL COUNT, UNSPECIFIED SNOMED Code(s): 488372652 (3) Allergy to multiple antibiotics Current Visit: No Status: Acute Code(s): Z88.1 - ALLERGY STATUS TO OTHER ANTIBIOTIC AGENTS SNOMED Code(s): 161492916 Plan: 1patient with multiple comorbidities in this patient was status post left nephrectomy now presented to the hospital with palpitation shortness of breath patient was noticed to be in ventricular tachycardia requiring cardioversion and amiodarone now with evidence of worsening liver enzymes there was concern for some abnormality to the gallbladder however the patient currently does not have any pain to the right upper quadrant area or any tenderness and elevated liver enzymes more likely related to the passive congestion from her cardiac condition 2-patient with multiple antibiotic ALLERGIES that would limit the number of antibiotic safe to use 3-patient did have a normal procalcitonin, the patient white count normalized and the patient liver enzymes are trending down without any by therapy we will monitor closely off antibiotics family at the bedside question answered Dictation was produced using [employer] dictation software. please excuse any grammatical, word or spelling errors. Time with Patient: Less than 30
[2025-02-05 05:58] LABS: Glucose,Whole Blood 169 mg/dL (70-110)
[2025-02-05] MEDS: ISOSORBIDE MONONITRATE ER 60 MG TAB.ER.24H PO SCH (07:53)
--- NOTE | 2025-02-05 09:30 | P.PN ---
Subjective Patient is seen in follow-up for acute kidney injury on chronic kidney disease. No active complaints. Has Gaston catheter. Nonoliguric. Denies chest pain or shortness of breath. Vital signs are stable. General: The patient no acute distress. HEENT: Head exam is unremarkable. On room air. LUNGS: No audible rhonchi or wheezes. HEART: Rate and Rhythm are regular. ABDOMEN: Obese, nontender. EXTREMITITES: 1+ edema Objective - Vital Signs Vital signs: Vital Signs Temp 97.7 F 02/05/25 07:42 Pulse 97 02/05/25 07:42 Resp 18 02/05/25 07:42 BP 126/90 02/05/25 07:42 Pulse Ox 100 02/05/25 07:42 FiO2 Intake & Output 02/04/25 02/05/25 02/05/25 18:59 06:59 18:59 Intake Total 620 20 10 Output Total 2024 2750 350 Balance -6377 -7296 -340 Weight 69 kg Intake: IV 20 20 10 Invasive Line 3 20 20 10 Oral 600 Output: Urine 2024 2750 350 Other: Voiding Method Indwelling Catheter Indwelling Catheter Indwelling Catheter - Labs CBC & Chem 7: 02/04/25 06:15 02/04/25 12:52 Labs: Abnormal Lab Results - Last 24 Hours (Table) 02/04/25 02/04/25 02/04/25 Range/Units 06:15 06:15 11:14 Sodium (137-145) mmol/L BUN (7-17) mg/dL Creatinine (0.52-1.04) mg/dL Glucose (74-99) mg/dL POC Glucose (mg/dL) 180 H (70-110) mg/dL Iron 30 L (50-170) UG/DL % Saturation 11.32 L (12.00-45.00) Transferrin 189.0 L (204.0-354.0) mg/dL Ferritin 1139.0 H (10.0-291.0) ng/mL 02/04/25 02/04/25 02/04/25 Range/Units 12:52 16:35 20:11 Sodium 131 L (137-145) mmol/L BUN 51 H (7-17) mg/dL Creatinine 1.96 H (0.52-1.04) mg/dL Glucose 183 H (74-99) mg/dL POC Glucose (mg/dL) 203 H 251 H (70-110) mg/dL Iron (50-170) UG/DL % Saturation (12.00-45.00) Transferrin (204.0-354.0) mg/dL Ferritin (10.0-291.0) ng/mL 02/05/25 Range/Units 05:57 Sodium (137-145) mmol/L BUN (7-17) mg/dL Creatinine (0.52-1.04) mg/dL Glucose (74-99) mg/dL POC Glucose (mg/dL) 169 H (70-110) mg/dL Iron (50-170) UG/DL % Saturation (12.00-45.00) Transferrin (204.0-354.0) mg/dL Ferritin (10.0-291.0) ng/mL Assessment and Plan Plan: Assessment: 1. Acute kidney injury secondary to ATN secondary to diuresis and hemodynamic instability. Creatinine 1.96 yesterday. UA fairly benign. No hydronephrosis noted on ultrasound. 2. Chronic kidney disease stage IV secondary to solitary kidney with recent creatinine 1.7-1.9. 3. V. tach status post amiodarone drip. 4. Hyperkalemia secondary to acidosis, chronic kidney disease, potassium supplementation and hyperglycemia. Improved. 5. Shock liver. 6. Metabolic acidosis secondary to acute kidney injury. Better. On oral bicarb. 7. Volume overload. Improving with diuresis. 8. Diabetes mellitus. 9. Urinary retention. Has gaston catheter. 10. Acute on chronic systolic CHF ejection fraction of 10 to 15%. 11. Anemia of chronic disease. On Aranesp. Plan: Maintain IV Lasix. Replace potassium as needed. Maintain low-salt diet and fluid restriction. Avoid nephrotoxins Continue to monitor renal function and urine output Void trial planned before d/c
--- NOTE | 2025-02-05 09:39 | P.PN ---
Subjective Progress Note Date: 02/05/25 The patient was seen and evaluated this morning. She still feeling congested but no symptoms of chest pain or chest discomfort. She has been maintaining sinus rhythm on the current dose of amiodarone. Her liver function test are elevated. Will follow-up with the trend of liver function test and continue tapering down the dose of amiodarone. Beside that the pressure is elevated. I am going to increase the dose of carvedilol. Heparin will be discontinued later on today. Echo will be ordered as well. The physical examination is remarkable for distant heart sounds with regular rate and rhythm and soft systolic murmur and diminished breathing sounds bilaterally and mild bilateral lower extremities edema 02/02/2025 Patient seen and examined. Patient states that she is feeling better today. S he has been maintaining a sinus rhythm. She continues to have lower extremity edema. Blood pressure is on the low side. Renal function has worsened. Blood pressure 99/62, heart rate 69, pulse ox 94% on room air. Repeat blood work reveals WBC 14, hemoglobin 9.6, INR 1.3. BUN 51 creatinine 2.45. AST 785, ALT 1678, alkaline phosphatase 157. C-reactive protein 6.1. Echocardiogram is pending. The physical examination is remarkable for distant heart sounds with regular rate and rhythm and soft systolic murmur and diminished breathing sounds bilaterally and mild bilateral lower extremities edema 02/03/2025 Patient seen and examined. Patient is on IV Lasix 40 mg daily per nephrology. Echocardiogram is pending. Patient continues to have upper extremity edema, lower extremity edema is improving. Blood pressure 118/73, heart rate 60, pulse ox 97% on room air. Repeat blood work reveals hemoglobin 9.8, sodium 127, potassium 4.7, BUN 49 creatinine 2.19. AST 495, ALT 1302. 02/04/2025 Patient seen and examined. Patient has been maintained on IV Lasix 40 mg daily by nephrology. She does have improvement of the upper and lower extremity edema. Blood pressure 113/75, heart rate 91, pulse ox 97% on room air. Repeat blood work reveals hemoglobin 10, BUN 50 creatinine 2.24. Liver function test are improving with AST 239, ALT 933, alkaline phosphatase 173. Echocardiogram reveals EF of 10 to 15%, moderate right ventricular dilatation, moderate pulmonary hypertension, moderate mitral regurgitation, bioprosthetic valve in aortic position with mild aortic stenosis, severe tricuspid regurgitation. 02/05/2025 Patient seen and examined. Patient is sitting up in a recliner with legs elevated today. She denies having chest pain or shortness of breath. She states she has not ambulated since she has been here. They are looking at rehab for her. She continues to have some edema in upper and lower extremities but improving. Renal function is improving. Blood pressure 110/74, heart rate in the 90s, pulse ox 96% on room air. No repeat blood work available at the time of this dictation but yesterday afternoon she had repeat BMP which revealed BUN 51 and creatinine 1.96. Yesterday, nephrology increased IV Lasix 40 mg to frequency of twice daily FINAL ASSESSMENT AND PLAN: Ventricular tachycardia Acute systolic heart failure Ischemic cardiomyopathy with EF of 10 to 15% Status post AICD History of multivessel coronary artery disease Acute kidney injury and chronic kidney disease Status post nephrectomy Elevated liver function test PLAN: Continue amiodarone 200 mg twice daily orally, Coreg 6.25 mg twice daily Patient is currently on IV Lasix 40 mg twice daily per nephrology Due to poor renal function, patient is not on KYLEE/ARB/ARNI And hydralazine 10 mg 3 times daily with goal of blood pressure 100/50 Resume patient on Imdur 60 mg twice daily Continue monitoring the liver function test Follow-up with the patient Nurse practitioner note has been reviewed, I agree with documented findings and plan of care. Patient was seen and examined. Objective - Vital Signs Vital signs: Vital Signs Temp 97.8 F 02/05/25 03:07 Pulse 97 02/05/25 03:07 Resp 16 02/05/25 03:07 BP 110/74 02/05/25 03:07 Pulse Ox 96 02/05/25 03:07 FiO2 Intake & Output 02/04/25 02/05/25 02/05/25 18:59 06:59 18:59 Intake Total 620 20 Output Total 2024 2749 Balance -1405 -2730 Weight 69 kg Intake: IV 20 20 Invasive Line 3 20 20 Oral 600 Output: Urine 2024 2749 Other: Voiding Method Indwelling Catheter Indwelling Catheter - Labs CBC & Chem 7: 02/04/25 06:15 02/04/25 12:52 Labs: Abnormal Lab Results - Last 24 Hours (Table) 02/04/25 02/04/2502/04/25 Range/Units 06:15 06:15 06:15 RBC 3.15 L (4.10-5.20) 10*6/uL Hgb 10.0 L (12.0-15.0) g/dL Hct 29.7 L (37.2-46.3) % Plt Count 102 L (140-440) 10*3/uL MPV 12.3 H (9.5-12.2) fL Immature Gran # 1.27 H (0.00-0.04) 10*3/uL Metamyelocytes # (Man) 0.10 H (0) k/uL Myelocytes # (Manual) 0.10 H (0) k/uL Nucleated RBCs 6 H (0-0) /100 WBC Sodium 133 L (137-145) mmol/L BUN 50 H (7-17) mg/dL Creatinine 2.24 H (0.52-1.04) mg/dL Glucose 193 H (74-99) mg/dL POC Glucose (mg/dL) (70-110) mg/dL Iron (50-170) UG/DL % Saturation (12.00-45.00) Transferrin (204.0-354.0) mg/dL Ferritin 1139.0 H (10.0-291.0) ng/mL AST 239 H (14-36) U/L ALT 933 H (4-34) U/L Alkaline Phosphatase 173 H (38-126) U/L Total Protein 4.7 L (6.3-8.2) g/dL Albumin 2.6 L (3.5-5.0) g/dL 02/04/25 02/04/25 02/04/25 Range/Units 06:15 11:14 12:52 RBC (4.10-5.20) 10*6/uL Hgb (12.0-15.0) g/dL Hct (37.2-46.3) % Plt Count (140-440) 10*3/uL MPV (9.5-12.2) fL Immature Gran # (0.00-0.04) 10*3/uL Metamyelocytes # (Man) (0) k/uL Myelocytes # (Manual) (0) k/uL Nucleated RBCs (0-0) /100 WBC Sodium 131 L (137-145) mmol/L BUN 51 H (7-17) mg/dL Creatinine 1.96 H (0.52-1.04) mg/dL Glucose 183 H (74-99) mg/dL POC Glucose (mg/dL) 180 H (70-110) mg/dL Iron 30 L (50-170) UG/DL % Saturation 11.32 L (12.00-45.00) Transferrin 189.0 L (204.0-354.0) mg/dL Ferritin (10.0-291.0) ng/mL AST (14-36) U/L ALT (4-34) U/L Alkaline Phosphatase (38-126) U/L Total Protein (6.3-8.2) g/dL Albumin (3.5-5.0) g/dL 02/04/25 02/04/25 02/05/25 Range/Units 16:35 20:11 05:57 RBC (4.10-5.20) 10*6/uL Hgb (12.0-15.0) g/dL Hct (37.2-46.3) % Plt Count (140-440) 10*3/uL MPV (9.5-12.2) fL Immature Gran # (0.00-0.04) 10*3/uL Metamyelocytes # (Man) (0) k/uL Myelocytes # (Manual) (0) k/uL Nucleated RBCs (0-0) /100 WBC Sodium (137-145) mmol/L BUN (7-17) mg/dL Creatinine (0.52-1.04) mg/dL Glucose (74-99) mg/dL POC Glucose (mg/dL) 203 H 251 H 169 H (70-110) mg/dL Iron (50-170) UG/DL % Saturation (12.00-45.00) Transferrin (204.0-354.0) mg/dL Ferritin (10.0-291.0) ng/mL AST (14-36) U/L ALT (4-34) U/L Alkaline Phosphatase (38-126) U/L Total Protein (6.3-8.2) g/dL Albumin (3.5-5.0) g/dL
[2025-02-05 09:55] LABS: HCT 36.3 % (37.2-46.3); HGB 12.1 g/dL (12.0-15.0); Immature Platelet Fraction 5.6 % (1.1-6.1); MCH 31.9 pg (27.0-32.0); MCHC 33.3 g/dL (32.0-37.0); MCV 95.8 fL (80.0-97.0); RBC 3.79 10*6/uL (4.10-5.20); RDW 16.7 % (11.5-14.5); WBC 8.47 10*3/uL (4.50-10.00)
[2025-02-05 10:15] LABS: Eosinophils # (M) 0.68 k/uL (0-0.7); Lymphocytes # (M) 1.10 k/uL (1.0-4.8); Metamyelocytes # (M) 0.08 k/uL (0); Monocytes # (M) 0.85 k/uL (0-1.0); Myelocytes # (M) 0.17 k/uL (0); Neutrophils # (M) 5.67 k/uL (1.3-7.7); Neutrophils % (M) 67 %; Total Cells Counted 200
[2025-02-05 10:16] LABS: Anisocytosis (M) Present; Poikilocytosis (M) Present; Polychromasia Present
[2025-02-05 10:17] LABS: Platelet Count 90 10*3/uL (140-440)
[2025-02-05 10:31] LABS: ALT 676 U/L (4-34); AST 131 U/L (14-36); African American GFR (CKD) 33 (>60 ml/min/1.73 sqM); Albumin 3.3 g/dL (3.5-5.0); Alkaline Phosphatase 201 U/L (38-126); Anion Gap 11 mmol/L; Blood Urea Nitrogen 46 mg/dL (7-17); Calcium 9.2 mg/dL (8.4-10.2); Carbon Dioxide 25 mmol/L (22-30); Chloride 96 mmol/L (98-107); Glucose 217 mg/dL (74-99); Non-African American GFR(CKD) 28 (>60 ml/min/1.73 sqM); Potassium 4.2 mmol/L (3.5-5.1); Sodium 132 mmol/L (137-145); Total Protein 5.6 g/dL (6.3-8.2)
--- NOTE | 2025-02-05 10:58 | P.PN ---
Subjective Progress Note Date: 02/05/25 Patient is seen. No acute events. Denies abdominal pain Objective - Vital Signs Vital signs: Vital Signs Temp 97.7 F 02/05/25 07:42 Pulse 97 02/05/25 07:42 Resp 18 02/05/25 07:42 BP 126/90 02/05/25 07:42 Pulse Ox 100 02/05/25 07:42 FiO2 Intake & Output 02/04/25 02/05/25 02/05/25 18:59 06:59 18:59 Intake Total 620 20 10 Output Total 2024 2750 350 Balance -3208 -3142 -481 Weight 69 kg Intake: IV 20 20 10 Invasive Line 3 20 20 10 Oral 600 Output: Urine 2024 2750 350 Other: Voiding Method Indwelling Catheter Indwelling Catheter Indwelling Catheter - Constitutional General appearance: Present: cooperative - Gastrointestinal Gastrointestinal Comment(s): Soft, nontender - Psychiatric Psychiatric: Present: A&O x's 3 - Labs CBC & Chem 7: 02/05/25 08:31 02/05/25 08:31 Labs: Abnormal Lab Results - Last 24 Hours (Table) 02/04/25 02/04/25 02/04/25 Range/Units 06:15 06:15 11:14 RBC (4.10-5.20) 10*6/uL Hct (37.2-46.3) % Plt Count (140-440) 10*3/uL Immature Gran # (0.00-0.04) 10*3/uL Metamyelocytes # (Man) (0) k/uL Myelocytes # (Manual) (0) k/uL Nucleated RBCs (0-0) /100 WBC Sodium (137-145) mmol/L Chloride (98-107) mmol/L BUN (7-17) mg/dL Creatinine (0.52-1.04) mg/dL Glucose (74-99) mg/dL POC Glucose (mg/dL) 180 H (70-110) mg/dL Iron 30 L (50-170) UG/DL % Saturation 11.32 L (12.00-45.00) Transferrin 189.0 L (204.0-354.0) mg/dL Ferritin 1139.0 H (10.0-291.0) ng/mL Total Bilirubin (0.2-1.3) mg/dL AST (14-36) U/L ALT (4-34) U/L Alkaline Phosphatase (38-126) U/L Total Protein (6.3-8.2) g/dL Albumin (3.5-5.0) g/dL 02/04/25 02/04/25 02/04/25 Range/Units 12:52 16:35 20:11 RBC (4.10-5.20) 10*6/uL Hct (37.2-46.3) % Plt Count (140-440) 10*3/uL Immature Gran # (0.00-0.04) 10*3/uL Metamyelocytes # (Man) (0) k/uL Myelocytes # (Manual) (0) k/uL Nucleated RBCs (0-0) /100 WBC Sodium 131 L (137-145) mmol/L Chloride (98-107) mmol/L BUN 51 H (7-17) mg/dL Creatinine 1.96 H (0.52-1.04) mg/dL Glucose 183 H (74-99) mg/dL POC Glucose (mg/dL) 203 H 251 H (70-110) mg/dL Iron (50-170) UG/DL % Saturation (12.00-45.00) Transferrin (204.0-354.0) mg/dL Ferritin (10.0-291.0) ng/mL Total Bilirubin (0.2-1.3) mg/dL AST (14-36) U/L ALT (4-34) U/L Alkaline Phosphatase (38-126) U/L Total Protein (6.3-8.2) g/dL Albumin (3.5-5.0) g/dL 02/05/25 02/05/25 02/05/25 Range/Units 05:57 08:31 08:31 RBC 3.79 L (4.10-5.20) 10*6/uL Hct 36.3 L (37.2-46.3) % Plt Count 90 L (140-440) 10*3/uL Immature Gran # 0.69 H (0.00-0.04) 10*3/uL Metamyelocytes # (Man) 0.08 H (0) k/uL Myelocytes # (Manual) 0.17 H (0) k/uL Nucleated RBCs 4 H (0-0) /100 WBC Sodium 132 L (137-145) mmol/L Chloride 96 L (98-107) mmol/L BUN 46 H (7-17) mg/dL Creatinine 1.76 H (0.52-1.04) mg/dL Glucose 217 H (74-99) mg/dL POC Glucose (mg/dL) 169 H (70-110) mg/dL Iron (50-170) UG/DL % Saturation (12.00-45.00) Transferrin (204.0-354.0) mg/dL Ferritin (10.0-291.0) ng/mL Total Bilirubin 1.4 H (0.2-1.3) mg/dL AST 131 H (14-36) U/L ALT 676 H (4-34) U/L Alkaline Phosphatase 201 H (38-126) U/L Total Protein 5.6 L (6.3-8.2) g/dL Albumin 3.3 L (3.5-5.0) g/dL Assessment and Plan Plan: 74-year-old female with polyp in the gallbladder and concern for acute hepatitis. Being followed by GI. No plan for surgical intervention. Continue medical management.
[2025-02-05 11:39] LABS: Glucose,Whole Blood 279 mg/dL (70-110)
--- NOTE | 2025-02-05 12:56 | P.PN ---
Subjective Subjective Progress Note Date: 02/01/25 patient 74-year-old lady with past medical history significant for coronary artery disease, heart failure, hyperlipidemia, hypertension who presented the ER for elevated blood sugar levels. Patient stated recently she had nephrectomy done at another facility, following that patient was recuperating well. There was no complaint of any abdominal pain. Patient denies any nausea or vomiting. There was no complaint of chest pain. Patient denies any complain of palpitations. There was no complaint of orthopnea or PND. Patient denies any complaint of dizziness. There is no complaint of headache. Patient checked her blood sugars at home and was found to be elevated and decided to come to the ER. Initial lab work done in the ER showed WBC 10.93, hemoglobin 10.9, platelet count 84, sodium 131, potassium 5.7, BUN 37, creatinine 1.92, glucose 239, bilirubin 1.4 AST 644, ALT 516 troponin 0.922 proBNP 38211 Chest x-ray done in the ERShowed chronic changes without acute pulmonary CT abdomen pelvis done showed small to moderate bilateral pleural effusion with compressive atelectasis, fractures of multiple left lower ribs. Mild anasarca. Gallbladder is underdistended filled with hyperdense sludge and contains a 4 mm stone in the neck Initial EKG showing patient to be in V. tach, initially patient was hemodynamic stable and was started on amiodarone drip, following that patient became hypotensive and had to be cardioverted with 100 J. Patient admitted to internal medicine service 02/01. Patient seen and examined. Vital signs show temperature 98.3, heart rate 71, blood pressure 171/105, currently on room air. Labs reviewed this morning showing WBC 10.92, hemoglobin 9.6, sodium 133, potassium 5.1, AST 2108, ALT 2230. Denies abdominal pain. Has swelling of upper extremities denies any shortness of breath at rest. 02/02 Patient seen at bedside. Overnight team reported little urine output overnight via gaston on 40mg of Lasix QD. Still feeling weakness, shortness of breath, feeling edemetous, does not feel like she can walk. 02/03 Patient seen at bedside, appears greatly improved since yesterday, is sitting in comode today. She reports feeling improved but still ill. Having an easier time breathing, able to get out of bed today. Family with her says she has been eating more than the previous day. 02/04 Patient seen at bedside she said she is feeling much better for the first time since admission, she is energetic, feeling hungry, eating well, continuing to improve. Pertinent positives and negatives discussed above, a complete review of systems was preformed and all the other sytems were negative. 02/05 Patient seen at bedside, she is vastly improved today, she is feeling good today she wants to be discharged. She has tried getting up with nursing but is struggling to walk on her own. Otherwise Creatinine has decreased to baseline today Creatinine: 1.74. Family present during discussion. General: non toxic, no distress, appears at stated age, AOx3, slow to respond to questions, unsure of dates,. Derm: no unusual rashes/lesions, warm Head: atraumatic, normocephalic, symmetric Eyes: EOMI, no lid lag, anicteric sclera, pupils equal round reactive to light ENT: Nose and ears atraumatic Neck: No cervical lymphadenopathy, trachea midline, supple, no JVD Mouth: no lip lesion, mucus membranes moist Cardiovascular: S1S2 reg, no murmur, positive dorsalis pedis pulse bilateral, +1 edema of the upper and lower extremities Lungs: Decreased air entry bilaterally, no rhonchi, no rales, no accessory muscle use Abdominal: soft, nontender to palpation, no guarding Ext: muscle strength 4 out of 5 in all 4 extremities grossly, no gross muscle atrophy, no contractures, Neuro: CN II-XI grossly intact, no gross focal neuro deficits Assessment and plan #Drug Induced Liver Injury with Elevated LFT Avoid hepatotoxic medications Daily CMP Diet as tolerated Maintain optimal blood pressures Ferratin and Iron post Arancep #VTac and CAD Continue amiodarone orally Continue monitoring the liver function test Increase the dose of carvedilol CXR to monitor acute fluid overload #Uncontrolled Blood Sugar Sliding scale insulin per protocol Basal Dose Lantus 10 BID Humolog 5 AC-TID DVT Prophylaxis GI Prophylaxis Full Code Familly present, discussed plan and answered questions. DC:Needs rehab discharge at [facility], not accepting admissions today Attestation I have seen and examined this patient with my resident , discussed the same with the resident/AAMIR, and agree with the dictator's assessment and plan as written Dr. Anjel garcia Objective - Vital Signs Vital signs: Vital Signs Temp 97.7 F 02/05/25 07:42 Pulse 97 02/05/25 07:42 Resp 18 02/05/25 07:42 BP 126/90 02/05/25 07:42 Pulse Ox 100 02/05/25 07:42 FiO2 Intake & Output 02/04/25 02/05/25 02/05/25 18:59 06:59 18:59 Intake Total 620 20 10 Output Total 2024 2750 350 Balance -8601 -7999 -794 Weight 69 kg Intake: IV 20 20 10 Invasive Line 3 20 20 10 Oral 600 Output: Urine 2024 2750 350 Other: Voiding Method Indwelling Catheter Indwelling Catheter Indwelling Catheter - Labs CBC & Chem 7: 02/05/25 08:31 02/06/25 05:38 Labs: Abnormal Lab Results - Last 24 Hours (Table) 02/04/25 02/04/25 02/04/25 Range/Units 06:15 06:15 11:14 Sodium (137-145) mmol/L BUN (7-17) mg/dL Creatinine (0.52-1.04) mg/dL Glucose (74-99) mg/dL POC Glucose (mg/dL) 180 H (70-110) mg/dL Iron 30 L (50-170) UG/DL % Saturation 11.32 L (12.00-45.00) Transferrin 189.0 L (204.0-354.0) mg/dL Ferritin 1139.0 H (10.0-291.0) ng/mL 02/04/25 02/04/25 02/04/25 Range/Units 12:52 16:35 20:11 Sodium 131 L (137-145) mmol/L BUN 51 H (7-17) mg/dL Creatinine 1.96 H (0.52-1.04) mg/dL Glucose 183 H (74-99) mg/dL POC Glucose (mg/dL) 203 H 251 H (70-110) mg/dL Iron (50-170) UG/DL % Saturation (12.00-45.00) Transferrin (204.0-354.0) mg/dL Ferritin (10.0-291.0) ng/mL 02/05/25 Range/Units 05:57 Sodium (137-145) mmol/L BUN (7-17) mg/dL Creatinine (0.52-1.04) mg/dL Glucose (74-99) mg/dL POC Glucose (mg/dL) 169 H (70-110) mg/dL Iron (50-170) UG/DL % Saturation (12.00-45.00) Transferrin (204.0-354.0) mg/dL Ferritin (10.0-291.0) ng/mL
--- NOTE | 2025-02-05 16:06 | P.PN ---
Subjective Progress Note Date: 02/05/25 Principal diagnosis: Reason for follow-up is leukocytosis and elevated liver enzymes Patient is a 74-year-old female with a past medical history significant for multiple comorbidity includingAsthma, Coronary Artery Disease (CAD), Chest Pain / Angina, Heart Failure, Diabetes Mellitus, GERD/Reflux, Hyperlipidemia, Hypertension, Myocardial Infarction (PR), Osteoarthritis (OA), Pneumonia, Renal Disease, Syncope, recently did have left nephrectomy has been brought to the hospital for palpitation and noticed to have ventricular tachycardia requiring shock resuscitation and subsequent transfer to this facility patient noticed to have elevated liver enzymes and abdominal ultrasound prompting this consultation. On today's evaluation that is 02/05/2025, the patient continues to be afebrile, the patient is on room air and breathing comfortably, the Pt denies having any chest pain or cough, the patient denies having any abdominal pain no vomiting or any diarrhea. Patient white count is 8.47, creatinine is 1.76 liver isms trending down Objective - Vital Signs Vital signs: Vital Signs Temp 98.4 F 02/05/25 15:32 Pulse 96 02/05/25 15:32 Resp 16 02/05/25 15:32 BP 117/78 02/05/25 15:32 Pulse Ox 97 02/05/25 15:32 FiO2 Intake & Output 02/04/25 02/05/25 02/05/25 18:59 06:59 18:59 Intake Total 620 20 490 Output Total 2024 2749 1974 Balance -4340 -6283 -4508 Weight 69 kg Intake: IV 20 20 10 Invasive Line 3 20 20 10 Oral 600 480 Output: Urine 2024 2749 1974 Other: Voiding Method Indwelling Catheter Indwelling Catheter Indwelling Catheter - Exam GENERAL DESCRIPTION: An elderly female lying in bed in no distress RESPIRATORY SYSTEM: Unlabored breathing , decreased breath sounds at bases HEART: S1 S2 regular rate and rhythm , ABDOMEN: Soft , no tenderness EXTREMITIES: No edema feet - Labs CBC & Chem 7: 02/05/25 08:31 02/05/25 08:31 Labs: Abnormal Lab Results - Last 24 Hours (Table) 02/04/25 02/04/25 02/05/25 Range/Units 16:35 20:11 05:57 RBC (4.10-5.20) 10*6/uL Hct (37.2-46.3) % Plt Count (140-440) 10*3/uL Immature Gran # (0.00-0.04) 10*3/uL Metamyelocytes # (Man) (0) k/uL Myelocytes # (Manual) (0) k/uL Nucleated RBCs (0-0) /100 WBC Sodium (137-145) mmol/L Chloride (98-107) mmol/L BUN (7-17) mg/dL Creatinine (0.52-1.04) mg/dL Glucose (74-99) mg/dL POC Glucose (mg/dL) 203 H 251 H 169 H (70-110) mg/dL Total Bilirubin (0.2-1.3) mg/dL AST (14-36) U/L ALT (4-34) U/L Alkaline Phosphatase (38-126) U/L Total Protein (6.3-8.2) g/dL Albumin (3.5-5.0) g/dL 02/05/25 02/05/25 02/05/25 Range/Units 08:31 08:31 11:38 RBC 3.79 L (4.10-5.20) 10*6/uL Hct 36.3 L (37.2-46.3) % Plt Count 90 L (140-440) 10*3/uL Immature Gran # 0.69 H (0.00-0.04) 10*3/uL Metamyelocytes # (Man) 0.08 H (0) k/uL Myelocytes # (Manual) 0.17 H (0) k/uL Nucleated RBCs 4 H (0-0) /100 WBC Sodium 132 L (137-145) mmol/L Chloride 96 L (98-107) mmol/L BUN 46 H (7-17) mg/dL Creatinine 1.76 H (0.52-1.04) mg/dL Glucose 217 H (74-99) mg/dL POC Glucose (mg/dL) 279 H (70-110) mg/dL Total Bilirubin 1.4 H (0.2-1.3) mg/dL AST 131 H (14-36) U/L ALT 676 H (4-34) U/L Alkaline Phosphatase 201 H (38-126) U/L Total Protein 5.6 L (6.3-8.2) g/dL Albumin 3.3 L (3.5-5.0) g/dL Assessment and Plan (1) Elevated liver enzymes Current Visit: Yes Status: Acute Code(s): R74.8 - ABNORMAL LEVELS OF OTHER SERUM ENZYMES SNOMED Code(s): 199580933 (2) Leukocytosis Current Visit: Yes Status: Acute Code(s): D72.829 - ELEVATED WHITE BLOOD C ELL COUNT, UNSPECIFIED SNOMED Code(s): 774407932 (3) Allergy to multiple antibiotics Current Visit: No Status: Acute Code(s): Z88.1 - ALLERGY STATUS TO OTHER ANTIBIOTIC AGENTS SNOMED Code(s): 256036523 Plan: 1patient with multiple comorbidities in this patient was status post left nephrectomy now presented to the hospital with palpitation shortness of breath patient was noticed to be in ventricular tachycardia requiring cardioversion and amiodarone now with evidence of worsening liver enzymes there was concern for some abnormality to the gallbladder however the patient currently does not have any pain to the right upper quadrant area or any tenderness and elevated liver enzymes more likely related to the passive congestion from her cardiac condition 2-patient with multiple antibiotic ALLERGIES that would limit the number of antibiotic safe to use 3-patient did have a normal procalcitonin, the patient white count normalized and the patient liver enzymes are slowly trending down without any antibiotic th erapy 4we will monitor closely off antibiotics family at the bedside question answered Dictation was produced using [employer] dictation software. please excuse any grammatical, word or spelling errors. Time with Patient: Less than 30
[2025-02-05 16:20] LABS: Glucose,Whole Blood 243 mg/dL (70-110)
[2025-02-05 20:06] LABS: Glucose,Whole Blood 355 mg/dL (70-110)
[2025-02-06 06:19] LABS: Glucose,Whole Blood 183 mg/dL (70-110)
[2025-02-06 06:55] LABS: African American GFR (CKD) 37 (>60 ml/min/1.73 sqM); Anion Gap 8 mmol/L; Blood Urea Nitrogen 56 mg/dL (7-17); Calcium 8.9 mg/dL (8.4-10.2); Carbon Dioxide 31 mmol/L (22-30); Chloride 92 mmol/L (98-107); Glucose 170 mg/dL (74-99); Magnesium 2.0 mg/dL (1.6-2.3); Non-African American GFR(CKD) 32 (>60 ml/min/1.73 sqM); Potassium 4.1 mmol/L (3.5-5.1); Sodium 131 mmol/L (137-145)
--- NOTE | 2025-02-06 09:35 | P.PN ---
Subjective Patient is seen in follow-up for acute kidney injury on chronic kidney disease. No active complaints. Has Gaston catheter. Nonoliguric. Denies chest pain or shortness of breath. Working with physical therapy. Vital signs are stable. General: The patient no acute distress. HEENT: Head exam is unremarkable. On room air. LUNGS: No audible rhonchi or wheezes. HEART: Rate and Rhythm are regular. ABDOMEN: Obese, nontender. EXTREMITITES: 1+ edema Objective - Vital Signs Vital signs: Vital Signs Temp 97.4 F L 02/06/25 04:00 Pulse 98 02/06/25 04:00 Resp 16 02/06/25 04:00 BP 112/71 02/06/25 04:00 Pulse Ox 100 02/06/25 04:00 FiO2 Intake & Output 02/05/25 02/06/25 02/06/25 18:59 06:59 18:59 Intake Total 730 20 Output Total 1975 1000 Balance -1185 -980 Weight 72 kg Intake: IV 10 20 Invasive Line 3 10 20 Oral 720 Output: Urine 1974 999 Other: Voiding Method Indwelling Catheter Indwelling Catheter - Labs CBC & Chem 7: 02/05/25 08:31 02/06/25 05:38 Labs: Abnormal Lab Results - Last 24 Hours (Table) 02/05/25 02/05/25 02/05/25 Range/Units 08:31 08:31 11:38 RBC 3.79 L (4.10-5.20) 10*6/uL Hct 36.3 L (37.2-46.3) % Plt Count 90 L (140-440) 10*3/uL Immature Gran # 0.69 H (0.00-0.04) 10*3/uL Metamyelocytes # (Man) 0.08 H (0) k/uL Myelocytes # (Manual) 0.17 H (0) k/uL Nucleated RBCs 4 H (0-0) /100 WBC Sodium 132 L (137-145) mmol/L Chloride 96 L (98-107) mmol/L Carbon Dioxide (22-30) mmol/L BUN 46 H (7-17) mg/dL Creatinine 1.76 H (0.52-1.04) mg/dL Glucose 217 H (74-99) mg/dL POC Glucose (mg/dL) 279 H (70-110) mg/dL Total Bilirubin 1.4 H (0.2-1.3) mg/dL AST 131 H (14-36) U/L ALT 676 H (4-34) U/L Alkaline Phosphatase 201 H (38-126) U/L Total Protein 5.6 L (6.3-8.2) g/dL Albumin 3.3 L (3.5-5.0) g/dL 02/05/25 02/05/25 02/06/25 Range/Units 16:19 20:05 05:38 RBC (4.10-5.20) 10*6/uL Hct (37.2-46.3) % Plt Count (140-440) 10*3/uL Immature Gran # (0.00-0.04) 10*3/uL Metamyelocytes # (Man) (0) k/uL Myelocytes # (Manual) (0) k/uL Nucleated RBCs (0-0) /100 WBC Sodium 131 L (137-145) mmol/L Chloride 92 L (98-107) mmol/L Carbon Dioxide 31 H (22-30) mmol/L BUN 56 H (7-17) mg/dL Creatinine 1.60 H (0.52-1.04) mg/dL Glucose 170 H (74-99) mg/dL POC Glucose (mg/dL) 243 H 355 H (70-110) mg/dL Total Bilirubin (0.2-1.3) mg/dL AST (14-36) U/L ALT (4-34) U/L Alkaline Phosphatase (38-126) U/L Total Protein (6.3-8.2) g/dL Albumin (3.5-5.0) g/dL 02/06/25 Range/Units 06:17 RBC (4.10-5.20) 10*6/uL Hct (37.2-46.3) % Plt Count (140-440) 10*3/uL Immature Gran # (0.00-0.04) 10*3/uL Metamyelocytes # (Man) (0) k/uL Myelocytes # (Manual) (0) k/uL Nucleated RBCs (0-0) /100 WBC Sodium (137-145) mmol/L Chloride (98-107) mmol/L Carbon Dioxide (22-30) mmol/L BUN (7-17) mg/dL Creatinine (0.52-1.04) mg/dL Glucose (74-99) mg/dL POC Glucose (mg/dL) 183 H (70-110) mg/dL Total Bilirubin (0.2-1.3) mg/dL AST (14-36) U/L ALT (4-34) U/L Alkaline Phosphatase (38-126) U/L Total Protein (6.3-8.2) g/dL Albumin (3.5-5.0) g/dL Assessment and Plan Plan: Assessment: 1. Acute kidney injury secondary to ATN secondary to diuresis and hemodynamic instability. Renal function improving. Creatinine 1.6. UA fairly benign. No hydronephrosis noted on ultrasound. 2. Chronic kidney disease stage IV secondary to solitary kidney with recent creatinine 1.7-1.9. 3. V. tach status post amiodarone drip. 4. Hyperkalemia secondary to acidosis, chronic kidney disease, potassium supp lementation and hyperglycemia. Improved. 5. Shock liver. 6. Metabolic acidosis secondary to acute kidney injury. Better. On oral bicarb. 7. Volume overload. Improving with diuresis. 8. Diabetes mellitus. 9. Urinary retention. Has gaston catheter. 10. Acute on chronic systolic CHF ejection fraction of 10 to 15%. 11. Anemia of chronic disease. On Aranesp. Plan: Maintain IV Lasix. Transition to oral diuretics in the next 1 to 2 days. Replace potassium as needed. Maintain low-salt diet and fluid restriction. Avoid nephrotoxins Continue to monitor renal function and urine output Void trial planned before d/c
--- NOTE | 2025-02-06 10:35 | P.PN ---
Subjective Progress Note Date: 02/06/25 The patient was seen and evaluated this morning. She still feeling congested but no symptoms of chest pain or chest discomfort. She has been maintaining sinus rhythm on the current dose of amiodarone. Her liver function test are elevated. Will follow-up with the trend of liver function test and continue tapering down the dose of amiodarone. Beside that the pressure is elevated. I am going to increase the dose of carvedilol. Heparin will be discontinued later on today. Echo will be ordered as well. The physical examination is remarkable for distant heart sounds with regular rate and rhythm and soft systolic murmur and diminished breathing sounds bilaterally and mild bilateral lower extremities edema 02/02/2025 Patient seen and examined. Patient states that she is feeling better today. S he has been maintaining a sinus rhythm. She continues to have lower extremity edema. Blood pressure is on the low side. Renal function has worsened. Blood pressure 99/62, heart rate 69, pulse ox 94% on room air. Repeat blood work reveals WBC 14, hemoglobin 9.6, INR 1.3. BUN 51 creatinine 2.45. AST 785, ALT 1678, alkaline phosphatase 157. C-reactive protein 6.1. Echocardiogram is pending. The physical examination is remarkable for distant heart sounds with regular rate and rhythm and soft systolic murmur and diminished breathing sounds bilaterally and mild bilateral lower extremities edema 02/03/2025 Patient seen and examined. Patient is on IV Lasix 40 mg daily per nephrology. Echocardiogram is pending. Patient continues to have upper extremity edema, lower extremity edema is improving. Blood pressure 118/73, heart rate 60, pulse ox 97% on room air. Repeat blood work reveals hemoglobin 9.8, sodium 127, potassium 4.7, BUN 49 creatinine 2.19. AST 495, ALT 1302. 02/04/2025 Patient seen and examined. Patient has been maintained on IV Lasix 40 mg daily by nephrology. She does have improvement of the upper and lower extremity edema. Blood pressure 113/75, heart rate 91, pulse ox 97% on room air. Repeat blood work reveals hemoglobin 10, BUN 50 creatinine 2.24. Liver function test are improving with AST 239, ALT 933, alkaline phosphatase 173. Echocardiogram reveals EF of 10 to 15%, moderate right ventricular dilatation, moderate pulmonary hypertension, moderate mitral regurgitation, bioprosthetic valve in aortic position with mild aortic stenosis, severe tricuspid regurgitation. 02/05/2025 Patient seen and examined. Patient is sitting up in a recliner with legs elevated today. She denies having chest pain or shortness of breath. She states she has not ambulated since she has been here. They are looking at rehab for her. She continues to have some edema in upper and lower extremities but improving. Renal function is improving. Blood pressure 110/74, heart rate in the 90s, pulse ox 96% on room air. No repeat blood work available at the time of this dictation but yesterday afternoon she had repeat BMP which revealed BUN 51 and creatinine 1.96. Yesterday, nephrology increased IV Lasix 40 mg to frequency of twice daily 02/06/2025 Patient seen and examined. Edema is improving. Yesterday we added hydralazine at 10 mg 3 times daily and resumed her Imdur 60 mg twice daily. Blood pressures 112/71, heart rate 98, pulse ox 100% on room air. Patient states that her breathing is okay. She denies any chest pain. She is been urinating well she has a Alford catheter in place. Sodium 131, potassium 4.1, BUN 56 and creatinine 1.6. Physical Examination LUNGS: Diminished breath sounds bilaterally. No intercostal retractions. HEART: Distant heart sounds, regular rate and rhythm. Systolic murmur. ABDOMEN: Soft. No tenderness. EXTREMITIES: 1+ bilateral lower extremity and left arm edema. No calf tenderness. NEUROLOGICAL: Patient is awake, alert and oriented x3. FINAL ASSESSMENT AND PLAN: Ventricular tachycardia Acute systolic heart failure Ischemic cardiomyopathy with EF of 10 to 15% Status post AICD History of multivessel coronary artery disease Acute kidney injury and chronic kidney disease Status post nephrectomy Elevated liver function test PLAN: Continue amiodarone 200 mg twice daily orally, Coreg 6.25 mg twice daily Patient is currently on IV Lasix 40 mg twice daily per nephrology Due to poor renal function, patient is not on KYLEE/ARB/ARNI Increase hydralazine 25 mg 3 times daily with goal of blood pressure 100/50 Continue patient on Imdur 60 mg twice daily Continue monitoring the liver function test Follow-up with the patient Nurse practitioner note has been reviewed, I agree with documented findings and plan of care. Patient was seen and examined. Objective - Vital Signs Vital signs: Vital Signs Temp 97.4 F L 07/05/25 04:00 Pulse 98 02/06/25 04:00 Resp 16 02/06/25 04:00 BP 112/71 02/06/25 04:00 Pulse Ox 100 02/06/25 04:00 FiO2 Intake & Output 02/05/25 02/06/25 02/06/25 18:59 06:59 18:59 Intake Total 730 20 Output Total 1974 1000 Balance -1245 -980 Weight 72 kg Intake: IV 10 20 Invasive Line 3 10 20 Oral 720 Output: Urine 1974 1000 Other: Voiding Method Indwelling Catheter Indwelling Catheter - Labs CBC & Chem 7: 02/05/25 08:31 02/06/25 05:38 Labs: Abnormal Lab Results - Last 24 Hours (Table) 02/05/25 02/05/25 02/05/25 Range/Units 08:31 08:31 11:38 RBC 3.79 L (4.10-5.20) 10*6/uL Hct 36.3 L (37.2-46.3) % Plt Count 90 L (140-440) 10*3/uL Immature Gran # 0.69 H (0.00-0.04) 10*3/uL Metamyelocytes # (Man) 0.08 H (0) k/uL Myelocytes # (Manual) 0.17 H (0) k/uL Nucleated RBCs 4 H (0-0) /100 WBC Sodium 132 L (137-145) mmol/L Chloride 96 L (98-107) mmol/L Carbon Dioxide (22-30) mmol/L BUN 46 H (7-17) mg/dL Creatinine 1.76 H (0.52-1.04) mg/dL Glucose 217 H (74-99) mg/dL POC Glucose (mg/dL) 279 H (70-110) mg/dL Total Bilirubin 1.4 H (0.2-1.3) mg/dL AST 131 H (14-36) U/L ALT 676 H (4-34) U/L Alkaline Phosphatase 201 H (38-126) U/L Total Protein 5.6 L (6.3-8.2) g/dL Albumin 3.3 L (3.5-5.0) g/dL 02/05/25 02/05/25 02/06/25 Range/Units 16:19 20:05 05:38 RBC (4.10-5.20) 10*6/uL Hct (37.2-46.3) % Plt Count (140-440) 10*3/uL Immature Gran # (0.00-0.04) 10*3/uL Metamyelocytes # (Man) (0) k/uL Myelocytes # (Manual) (0) k/uL Nucleated RBCs (0-0) /100 WBC Sodium 131 L (137-145) mmol/L Chloride 92 L (98-107) mmol/L Carbon Dioxide 31 H (22-30) mmol/L BUN 56 H (7-17) mg/dL Creatinine 1.60 H (0.52-1.04) mg/dL Glucose 170 H (74-99) mg/dL POC Glucose (mg/dL) 243 H 355 H (70-110) mg/dL Total Bilirubin (0.2-1.3) mg/dL AST (14-36) U/L ALT (4-34) U/L Alkaline Phosphatase (38-126) U/L Total Protein (6.3-8.2) g/dL Albumin (3.5-5.0) g/dL /12/27 Range/Units 06:17 RBC (4.10-5.20) 10*6/uL Hct (37.2-46.3) % Plt Count (140-440) 10*3/uL Immature Gran # (0.00-0.04) 10*3/uL Metamyelocytes # (Man) (0) k/uL Myelocytes # (Manual) (0) k/uL Nucleated RBCs (0-0) /100 WBC Sodium (137-145) mmol/L Chloride (98-107) mmol/L Carbon Dioxide (22-30) mmol/L BUN (7-17) mg/dL Creatinine (0.52-1.04) mg/dL Glucose (74-99) mg/dL POC Glucose (mg/dL) 183 H (70-110) mg/dL Total Bilirubin (0.2-1.3) mg/dL AST (14-36) U/L ALT (4-34) U/L Alkaline Phosphatase (38-126) U/L Total Protein (6.3-8.2) g/dL Albumin (3.5-5.0) g/dL
[2025-02-06 11:17] LABS: Glucose,Whole Blood 268 mg/dL (70-110)
--- NOTE | 2025-02-06 13:02 | P.PN ---
Subjective Subjective: patient 74-year-old lady with past medical history significant for coronary artery disease, heart failure, hyperlipidemia, hypertension who presented the ER for elevated blood sugar levels. Patient stated recently she had nephrectomy do ne at another facility, following that patient was recuperating well. There was no complaint of any abdominal pain. Patient denies any nausea or vomiting. There was no complaint of chest pain. Patient denies any complain of palpitations. There was no complaint of orthopnea or PND. Patient denies any complaint of dizziness. There is no complaint of headache. Patient checked her blood sugars at home and was found to be elevated and decided to come to the ER. Initial lab work done in the ER showed WBC 10.93, hemoglobin 10.9, platelet count 84, sodium 131, potassium 5.7, BUN 37, creatinine 1.92, glucose 239, bilirubin 1.4 AST 644, ALT 516 troponin 0.922 proBNP [id number] Chest x-ray done in the ERShowed chronic changes without acute pulmonary CT abdomen pelvis done showed small to moderate bilateral pleural effusion with compressive atelectasis, fractures of multiple left lower ribs. Mild anasarca. Gallbladder is underdistended filled with hyperdense sludge and contains a 4 mm stone in the neck Initial EKG showing patient to be in V. tach, initially patient was hemodynamic stable and was started on amiodarone drip, following that patient became hypotensive and had to be cardioverted with 100 J. Patient admitted to internal medicine service 02/01. Patient seen and examined. Vital signs show temperature 98.3, heart rate 71, blood pressure 171/105, currently on room air. Labs reviewed this morning showing WBC 10.92, hemoglobin 9.6, sodium 133, potassium 5.1, AST 2108, ALT 2230. Denies abdominal pain. Has swelling of upper extremities denies any janeth rtness of breath at rest. 02/02. Patient seen at bedside. Overnight team reported little urine output overnight via gaston on 40mg of Lasix QD. Still feeling weakness, shortness of breath, feeling edemetous, does not feel like she can walk. 02/03. Patient seen at bedside, appears greatly improved since yesterday, is sitting in comode today. She reports feeling improved but still ill. Having an easier time breathing, able to get out of bed today. Family with her says she has been eating more than the previous day. 02/04. Patient seen at bedside she said she is feeling much better for the first time since admission, she is energetic, feeling hungry, eating well, continuing to improve. Pertinent positives and negatives discussed above, a complete review of systems was preformed and all the other sytems were negative. 02/05. Patient seen at bedside, she is vastly improved today, she is feeling good today she wants to be discharged. She has tried getting up with nursing but is struggling to walk on her own. Otherwise Creatinine has decreased to baseline today Creatinine: 1.74. Family present during discussion. 02/06. Patient seen at bedside, in a pleasant mood. Eating breakfast. Reported feeling great. Reported limited in mobility however doing well with physiotherapy sessions. Has not had a bowel movement since admission however not in any acute discomfort. Patient drinking prune juice and on Senokot for same. Continuos decrease in creatinine to 1.6. Awaiting on rehab acceptance for discharge. Vitals reviewed and stable. General: non toxic, no distress, appears at stated age, AOx3, slow to respond to questions, unsure of dates,. Derm: no unusual rashes/lesions, warm Head: atraumatic, normocephalic, symmetric Eyes: EOMI, no lid lag, anicteric sclera, pupils equal round reactive to light ENT: Nose and ears atraumatic Neck: No cervical lymphadenopathy, trachea midline, supple, no JVD Mouth: no lip lesion, mucus membranes moist Cardiovascular: S1S2 reg, no murmur, positive dorsalis pedis pulse bilateral, +1 edema of the upper and lower extremities Lungs: Decreased air entry bilaterally, no rhonchi, no rales, no accessory muscle use Abdominal: soft, nontender to palpation, no guarding Ext: muscle strength 4 out of 5 in all 4 extremities grossly, no gross muscle at rophy, no contractures, Neuro: CN II-XI grossly intact, no gross focal neuro deficits Assessment and plan: #Drug Induced Liver Injury with Elevated LFT Avoid hepatotoxic medications Daily CMP Diet as tolerated Maintain optimal blood pressures Ferratin and Iron post Arancep #VTac and CAD Continue amiodarone orally Continue monitoring the liver function test Increase the dose of carvedilol CXR to monitor acute fluid overload #Uncontrolled Blood Sugar Sliding scale insulin per protocol Basal Dose Lantus 10 BID Humolog 5 AC-TID DVT ppx: SCDs GI ppx: protonix Code Status: full Anticipated discharge place: Saturday, awaiting rehab acceptance. Shen Azul MD PGY1 Internal Medicine Attestation I have seen and examined this patient with my resident , discussed the same with the resident/AAMIR, and agree with the dictator's assessment and plan as written Dr. Abreu Objective - Vital Signs Vital signs: Vital Signs Temp 97.4 F L 02/06/25 04:00 Pulse 99 02/06/25 12:00 Resp 18 02/06/25 12:00 BP 103/70 02/06/25 12:00 Pulse Ox 96 02/06/25 12:00 FiO2 Intake & Output 02/05/25 02/06/25 02/06/25 18:59 06:59 18:59 Intake Total 730 20 250 Output Total 1975 1000 600 Balance -1245 -980 -350 Weight 72 kg Intake: IV 10 20 10 Invasive Line 3 10 20 10 Oral 720 240 Output: Urine 1974 1000 600 Other: Voiding Method Indwelling Catheter Indwelling Catheter Indwelling Catheter - Labs CBC & Chem 7: 02/05/25 08:31 02/06/25 05:38 Labs: Abnormal Lab Results - Last 24 Hours (Table) 02/05/25 02/05/25 02/06/25 Range/Units 16:19 20:05 05:38 Sodium 131 L (137-145) mmol/L Chloride 92 L (98-107) mmol/L Carbon Dioxide 31 H (22-30) mmol/L BUN 56 H (7-17) mg/dL Creatinine 1.60 H (0.52-1.04) mg/dL Glucose 170 H (74-99) mg/dL POC Glucose (mg/dL) 243 H 355 H (70-110) mg/dL 02/06/25 02/06/25 Range/Units 06:17 11:12 Sodium (137-145) mmol/L Chloride (98-107) mmol/L Carbon Dioxide (22-30) mmol/L BUN (7-17) mg/dL Creatinine (0.52-1.04) mg/dL Glucose (74-99) mg/dL POC Glucose (mg/dL) 183 H 268 H (70-110) mg/dL
[2025-02-06 16:11] LABS: Glucose,Whole Blood 195 mg/dL (70-110)
--- NOTE | 2025-02-06 16:25 | P.PN ---
Subjective Progress Note Date: 02/06/25 Principal diagnosis: Reason for follow-up is leukocytosis and elevated liver enzymes Patient is a 74-year-old female with a past medical history significant for multiple comorbidity includingAsthma, Coronary Artery Disease (CAD), Chest Pain / Angina, Heart Failure, Diabetes Mellitus, GERD/Reflux, Hyperlipidemia, Hypertension, Myocardial Infarction (OR), Osteoarthritis (OA), Pneumonia, Renal Disease, Syncope, recently did have left nephrectomy has been brought to the hospital for palpitation and noticed to have ventricular tachycardia requiring shock resuscitation and subsequent transfer to this facility patient noticed to have elevated liver enzymes and abdominal ultrasound prompting this consultation. On today's evaluation that is 02/07/2024, patient did have a temperature of 97.4 F this morning and patient is breathing comfortably room air patient is cur rently sleeping no distress no vomiting diarrhea and the change has been reported. Patient did have a creatinine 1.60 no CBC was done, no LFTs were done Objective - Vital Signs Vital signs: Vital Signs Temp 97.4 F L 02/06/25 04:00 Pulse 99 02/06/25 14:00 Resp 18 02/06/25 14:00 BP 103/70 02/06/25 12:00 Pulse Ox 96 02/06/25 12:00 FiO2 Intake & Output 02/05/25 02/06/25 02/06/25 18:59 06:59 18:59 Intake Total 730 20 250 Output Total 1975 1000 600 Balance -1245 -980 -350 Weight 72 kg Intake: IV 10 20 10 Invasive Line 3 10 20 10 Oral 720 240 Output: Urine 1974 1000 600 Other: Voiding Method Indwelling Catheter Indwelling Catheter Indwelling Catheter - Exam GENERAL DESCRIPTION: An elderly female lying in bed in no distress RESPIRATORY SYSTEM: Unlabored breathing , decreased breath sounds at bases HEART: S1 S2 regular rate and rhythm , ABDOMEN: Soft , no tenderness EXTREMITIES: No edema feet - Labs CBC & Chem 7: 02/05/25 08:31 02/06/25 05:38 Labs: Abnormal Lab Results - Last 24 Hours (Table) 02/05/25 02/06/25 02/06/25 Range/Units 20:05 05:38 06:17 Sodium 131 L (137-145) mmol/L Chloride 92 L (98-107) mmol/L Carbon Dioxide 31 H (22-30) mmol/L BUN 56 H (7-17) mg/dL Creatinine 1.60 H (0.52-1.04) mg/dL Glucose 170 H (74-99) mg/dL POC Glucose (mg/dL) 355 H 183 H (70-110) mg/dL 02/06/25 02/06/25 Range/Units 11:12 16:09 Sodium (137-145) mmol/L Chloride (98-107) mmol/L Carbon Dioxide (22-30) mmol/L BUN (7-17) mg/dL Creatinine (0.52-1.04) mg/dL Glucose (74-99) mg/dL POC Glucose (mg/dL) 268 H 195 H (70-110) mg/dL Assessment and Plan (1) Elevated liver enzymes Current Visit: Yes Status: Acute Code(s): R74.8 - ABNORMAL LEVELS OF OTHER SERUM ENZYMES SNOMED Code(s): 741164770 (2) Leukocytosis Current Visit: Yes Status: Acute Code(s): D72.829 - ELEVATED WHITE BLOOD CELL COUNT, UNSPECIFIED SNOMED Code(s): 428516800 (3) Allergy to multiple antibiotics Current Visit: No Status: Acute Code(s): Z88.1 - ALLERGY STATUS TO OTHER ANTIBIOTIC AGENTS SNOMED Code(s): 644509517 Plan: 1patient with multiple comorbidities in this patient was status post left nephrectomy now presented to the hospital with palpitation shortness of breath patient was noticed to be in ventricular tachycardia requiring cardioversion and amiodarone now with evidence of worsening liver enzymes there was concern for some abnormality to the gallbladder however the patient currently does not have any pain to the right upper quadrant area or any tenderness and elevated liver enzymes more likely related to the passive congestion from her cardiac condition 2-patient with multiple antibiotic ALLERGIES that would limit the number of an tibiotic safe to use 3-patient did have a normal procalcitonin, the patient white count normalized a nd the patient liver enzymes are slowly trending down without any antibiotic therapy 4patient is currently being monitored closely off antibiotic therapy to continue to monitor Dictation was produced using [employer] dictation software. please excuse any grammatical, word or spelling errors. Time with Patient: Less than 30
[2025-02-06 20:26] LABS: Glucose,Whole Blood 247 mg/dL (70-110)
[2025-02-06] MEDS: MELATONIN 3 MG TABLET PO PRN (21:54)
[2025-02-07 06:20] LABS: Glucose,Whole Blood 168 mg/dL (70-110)
[2025-02-07 08:08] LABS: ALT 302 U/L (4-34); AST 60 U/L (14-36); African American GFR (CKD) 36 (>60 ml/min/1.73 sqM); Albumin 3.0 g/dL (3.5-5.0); Alkaline Phosphatase 148 U/L (38-126); Anion Gap 5 mmol/L; Blood Urea Nitrogen 56 mg/dL (7-17); Calcium 9.2 mg/dL (8.4-10.2); Carbon Dioxide 30 mmol/L (22-30); Chloride 96 mmol/L (98-107); Glucose 165 mg/dL (74-99); Magnesium 2.1 mg/dL (1.6-2.3); Non-African American GFR(CKD) 32 (>60 ml/min/1.73 sqM); Potassium 4.5 mmol/L (3.5-5.1); Sodium 131 mmol/L (137-145); Total Protein 5.2 g/dL (6.3-8.2)
--- NOTE | 2025-02-07 09:01 | P.PN ---
Subjective Progress Note Date: 02/07/25 The patient was seen and evaluated this morning. She still feeling congested but no symptoms of chest pain or chest discomfort. She has been maintaining sinus rhythm on the current dose of amiodarone. Her liver function test are elevated. Will follow-up with the trend of liver function test and continue tapering down the dose of amiodarone. Beside that the pressure is elevated. I am going to increase the dose of carvedilol. Heparin will be discontinued later on today. Echo will be ordered as well. The physical examination is remarkable for distant heart sounds with regular rate and rhythm and soft systolic murmur and diminished breathing sounds bilaterally and mild bilateral lower extremities edema 02/02/2025 Patient seen and examined. Patient states that she is feeling better today. S he has been maintaining a sinus rhythm. She continues to have lower extremity edema. Blood pressure is on the low side. Renal function has worsened. Blood pressure 99/62, heart rate 69, pulse ox 94% on room air. Repeat blood work reveals WBC 14, hemoglobin 9.6, INR 1.3. BUN 51 creatinine 2.45. AST 785, ALT 1678, alkaline phosphatase 157. C-reactive protein 6.1. Echocardiogram is pending. The physical examination is remarkable for distant heart sounds with regular rate and rhythm and soft systolic murmur and diminished breathing sounds bilaterally and mild bilateral lower extremities edema 02/03/2025 Patient seen and examined. Patient is on IV Lasix 40 mg daily per nephrology. Echocardiogram is pending. Patient continues to have upper extremity edema, lower extremity edema is improving. Blood pressure 118/73, heart rate 60, pulse ox 97% on room air. Repeat blood work reveals hemoglobin 9.8, sodium 127, potassium 4.7, BUN 49 creatinine 2.19. AST 495, ALT 1302. 02/04/2025 Patient seen and examined. Patient has been maintained on IV Lasix 40 mg daily by nephrology. She does have improvement of the upper and lower extremity edema. Blood pressure 113/75, heart rate 91, pulse ox 97% on room air. Repeat blood work reveals hemoglobin 10, BUN 50 creatinine 2.24. Liver function test are improving with AST 239, ALT 933, alkaline phosphatase 173. Echocardiogram reveals EF of 10 to 15%, moderate right ventricular dilatation, moderate pulmonary hypertension, moderate mitral regurgitation, bioprosthetic valve in aortic position with mild aortic stenosis, severe tricuspid regurgitation. 02/05/2025 Patient seen and examined. Patient is sitting up in a recliner with legs elevated today. She denies having chest pain or shortness of breath. She states she has not ambulated since she has been here. They are looking at rehab for her. She continues to have some edema in upper and lower extremities but improving. Renal function is improving. Blood pressure 110/74, heart rate in the 90s, pulse ox 96% on room air. No repeat blood work available at the time of this dictation but yesterday afternoon she had repeat BMP which revealed BUN 51 and creatinine 1.96. Yesterday, nephrology increased IV Lasix 40 mg to frequency of twice daily 02/06/2025 Patient seen and examined. Edema is improving. Yesterday we added hydralazine at 10 mg 3 times daily and resumed her Imdur 60 mg twice daily. Blood pressures 112/71, heart rate 98, pulse ox 100% on room air. Patient states that her breathing is okay. She denies any chest pain. She is been urinating well she has a Alford catheter in place. Sodium 131, potassium 4.1, BUN 56 and creatinine 1.6. 02/07/2025 Patient seen and examined. Edema is improving slowly but she continues to have fluid overload. She has been maintained on IV Lasix 40 mg twice daily by nephrology. Patient has a negative fluid balance. Alford catheter was removed yesterday. She states she has been up to the commode chair a couple times and did not experience dizziness. Patient remains in a sinus rhythm. Blood pressure 102/74, heart rate 96, pulse ox 95% on room air. EKG obtained this morning reveals atrial tachycardia most likely versus atrial flutter with borderline RVR. Repeat blood work today reveals sodium 131, potassium 4.5, BUN 56 creatinine 1.61. AST 60, ALT 302, alkaline phosphatase 148. Physical Examination LUNGS: Diminished breath sounds bilaterally. No intercostal retractions. HEART: Distant heart sounds, regular rate and rhythm. Systolic murmur. ABDOMEN: Soft. No tenderness. EXTREMITIES: +edema in hip areas, 1+ bilateral lower extremity and left arm edema. No calf tenderness. NEUROLOGICAL: Patient is awake, alert and oriented x3. FINAL ASSESSMENT AND PLAN: Ventricular tachycardia Acute systolic heart failure Atrial tachycardia versus atrial flutter with borderline RVR Ischemic cardiomyopathy with EF of 10 to 15% Status post AICD History of multivessel coronary artery disease Acute kidney injury and chronic kidney disease Status post nephrectomy in early January Elevated liver function tests, improving PLAN: Continue amiodarone 200 mg twice daily orally, Coreg 6.25 mg twice daily Patient is currently on IV Lasix 40 mg twice daily per nephrology Due to poor renal function, patient is not on KYLEE/ARB/ARNI Continue hydralazine 25 mg 3 times daily with goal of blood pressure 100/50 Continue patient on Imdur 60 mg twice daily Continue monitoring the liver function test May consider cardioversion for atrial tachycardia if persistent. Follow-up with the patient At the time of discharge, patient will follow-up with Dr. Christine in 1 to 2 weeks. Nurse practitioner note has been reviewed, I agree with documented findings and plan of care. Patient was seen and examined. Objective - Vital Signs Vital signs: Vital Signs Temp 97.4 F L 02/06/25 04:00 Pulse 96 02/07/25 04:00 Resp 18 02/07/25 04:00 BP 102/74 02/07/25 04:00 Pulse Ox 95 02/07/25 04:00 FiO2 Intake & Output 02/06/25 02/06/25 02/07/25 06:59 18:59 06:59 Intake Total 20 250 540 Output Total 1000 1700 Balance -980 -1450 540 Weight 72 kg 86.5 kg Intake: IV 20 10 Invasive Line 3 20 10 Oral 240 540 Output: Urine 1000 1700 Other: Voiding Method Indwelling Catheter Indwelling Catheter Indwelling Catheter # Voids 2 # Bowel Movements 1 - Labs CBC & Chem 7: 02/05/25 08:31 02/07/25 06:56 Labs: Abnormal Lab Results - Last 24 Hours (Table) 02/06/25 02/06/25 02/06/25 Range/Units 05:38 11:12 16:09 Sodium 131 L (137-145) mmol/L Chloride 92 L (98-107) mmol/L Carbon Dioxide 31 H (22-30) mmol/L BUN 56 H (7-17) mg/dL Creatinine 1.60 H (0.52-1.04) mg/dL Glucose 170 H (74-99) mg/dL POC Glucose (mg/dL) 268 H 195 H (70-110) mg/dL 02/06/25 02/07/25 Range/Units 20:25 06:18 Sodium (137-145) mmol/L Chloride (98-107) mmol/L Carbon Dioxide (22-30) mmol/L BUN (7-17) mg/dL Creatinine (0.52-1.04) mg/dL Glucose (74-99) mg/dL POC Glucose (mg/dL) 247 H 168 H (70-110) mg/dL
--- NOTE | 2025-02-07 10:11 | P.PN ---
Subjective Patient is seen in follow-up for acute kidney injury on chronic kidney disease. No active complaints. Has Gaston catheter. On IV Lasix. Nonoliguric. Denies chest pain or shortness of breath. Vital signs are stable. General: The patient no acute distress. HEENT: Head exam is unremarkable. On room air. LUNGS: No audible rhonchi or wheezes. HEART: Rate and Rhythm are regular. ABDOMEN: Obese, nontender. EXTREMITITES: 1+ edema Objective - Vital Signs Vital signs: Vital Signs Temp 97.4 F L 02/06/25 04:00 Pulse 96 02/07/25 04:00 Resp 18 02/07/25 04:00 BP 102/74 02/07/25 04:00 Pulse Ox 95 02/07/25 04:00 FiO2 Intake & Output 02/06/25 02/07/25 02/07/25 18:59 06:59 18:59 Intake Total 250 540 Output Total 1700 Balance -1450 540 Weight 86.5 kg Intake: IV 10 Invasive Line 3 10 Oral 240 540 Output: Urine 1700 Other: Voiding Method Indwelling Catheter Indwelling Catheter # Voids 2 # Bowel Movements 1 - Labs CBC & Chem 7: 02/05/25 08:31 02/07/25 06:56 Labs: Abnormal Lab Results - Last 24 Hours (Table) 02/06/25 02/06/25 02/06/25 Range/Units 11:12 16:09 20:25 Sodium (137-145) mmol/L Chloride (98-107) mmol/L BUN (7-17) mg/dL Creatinine (0.52-1.04) mg/dL Glucose (74-99) mg/dL POC Glucose (mg/dL) 268 H 195 H 247 H (70-110) mg/dL AST (14-36) U/L ALT (4-34) U/L Alkaline Phosphatase (38-126) U/L Total Protein (6.3-8.2) g/dL Albumin (3.5-5.0) g/dL 02/07/25 02/07/25 Range/Units 06:18 06:56 Sodium 131 L (137-145) mmol/L Chloride 96 L (98-107) mmol/L BUN 56 H (7-17) mg/dL Creatinine 1.61 H (0.52-1.04) mg/dL Glucose 165 H (74-99) mg/dL POC Glucose (mg/dL) 168 H (70-110) mg/dL AST 60 H (14-36) U/L ALT 302 H (4-34) U/L Alkaline Phosphatase 148 H (38-126) U/L Total Protein 5.2 L (6.3-8.2) g/dL Albumin 3.0 L (3.5-5.0) g/dL Assessment and Plan Plan: Assessment: 1. Acute kidney injury secondary to ATN secondary to diuresis and hemodynamic instability. Renal function improved. Creatinine stable at 1.6. UA fairly benign. No hydronephrosis noted on ultrasound. 2. Chronic kidney disease stage IV secondary to solitary kidney with recent creatinine 1.7-1.9. 3. V. tach status post amiodarone drip. 4. Hyperkalemia secondary to acidosis, chronic kidney disease, potassium supp lementation and hyperglycemia. Improved. 5. Shock liver. 6. Metabolic acidosis secondary to acute kidney injury. Better. On oral bicarb. 7. Volume overload. Improving with diuresis. 8. Diabetes mellitus. 9. Urinary retention. Has gaston catheter. 10. Acute on chronic systolic CHF ejection fraction of 10 to 15%. 11. Anemia of chronic disease. On Aranesp. Plan: Stop IV Lasix. Start oral Lasix 40 mg twice daily. Replace potassium as needed. Maintain low-salt diet and fluid restriction. Avoid nephrotoxins Continue to monitor renal function and urine output
--- NOTE | 2025-02-07 11:13 | P.PN ---
Subjective Subjective: patient 74-year-old lady with past medical history significant for coronary artery disease, heart failure, hyperlipidemia, hypertension who presented the ER for elevated blood sugar levels. Patient stated recently she had nephrectomy d one at another facility, following that patient was recuperating well. There was no complaint of any abdominal pain. Patient denies any nausea or vomiting. There was no complaint of chest pain. Patient denies any complain of palpitations. There was no complaint of orthopnea or PND. Patient denies any complaint of dizziness. There is no complaint of headache. Patient checked her blood sugars at home and was found to be elevated and decided to come to the ER. Initial lab work done in the ER showed WBC 10.93, hemoglobin 10.9, platelet count 84, sodium 131, potassium 5.7, BUN 37, creatinine 1.92, glucose 239, bilirubin 1.4 AST 644, ALT 516 troponin 0.922 proBNP 82184 Chest x-ray done in the ERShowed chronic changes without acute pulmonary CT abdomen pelvis done showed small to moderate bilateral pleural effusion with compressive atelectasis, fractures of multiple left lower ribs. Mild anasarca. Gallbladder is underdistended filled with hyperdense sludge and contains a 4 mm stone in the neck Initial EKG showing patient to be in V. tach, initially patient was hemodynamic stable and was started on amiodarone drip, following that patient became hypotensive and had to be cardioverted with 100 J. Patient admitted to internal medicine service 02/01. Patient seen and examined. Vital signs show temperature 98.3, heart rate 71, blood pressure 171/105, currently on room air. Labs reviewed this morning showing WBC 10.92, hemoglobin 9.6, sodium 133, potassium 5.1, AST 2108, ALT 2230. Denies abdominal pain. Has swelling of upper extremities denies any sh ortness of breath at rest. 02/02. Patient seen at bedside. Overnight team reported little urine output overnight via gaston on 40mg of Lasix QD. Still feeling weakness, shortness of breath, feeling edemetous, does not feel like she can walk. 02/03. Patient seen at bedside, appears greatly improved since yesterday, is sitting in comode today. She reports feeling improved but still ill. Having an easier time breathing, able to get out of bed today. Family with her says she has been eating more than the previous day. 02/04. Patient seen at bedside she said she is feeling much better for the first time since admission, she is energetic, feeling hungry, eating well, continuing to improve. Pertinent positives and negatives discussed above, a complete review of systems was preformed and all the other sytems were negative. 02/05. Patient seen at bedside, she is vastly improved today, she is feeling good today she wants to be discharged. She has tried getting up with nursing but is struggling to walk on her own. Otherwise Creatinine has decreased to baseline today Creatinine: 1.74. Family present during discussion. 02/06. Patient seen at bedside, in a pleasant mood. Eating breakfast. Reported feeling great. Reported limited in mobility however doing well with physiotherapy sessions. Has not had a bowel movement since admission however not in any acute discomfort. Patient drinking prune juice and on Senokot for same. Continuos decrease in creatinine to 1.6. Awaiting on rehab acceptance for discharge. 02/07 Patient seen at bedside she is feeling massively improved since she was admitted she is ready to go to rehab fascility, she has been working with PT OT in the mean time feeling weak but improving. Otherwise not in pain. LFTs and Creatinine continue to improve (1.61) Vitals reviewed and stable. General: non toxic, no distress, appears at stated age, AOx3, slow to respond to questions, unsure of dates,. Derm: no unusual rashes/lesions, warm Head: atraumatic, normocephalic, symmetric Eyes: EOMI, no lid lag, anicteric sclera, pupils equal round reactive to light ENT: Nose and ears atraumatic Neck: No cervical lymphadenopathy, trachea midline, supple, no JVD Mouth: no lip lesion, mucus membranes moist Cardiovascular: S1S2 reg, no murmur, positive dorsalis pedis pulse bilateral, +1 edema of the upper and lower extremities Lungs: Decreased air entry bilaterally, no rhonchi, no rales, no accessory muscle use Abdominal: soft, nontender to palpation, no guarding Ext: muscle strength 4 out of 5 in all 4 extremities grossly, no gross muscle atrophy, no contractures, Neuro: CN II-XI grossly intact, no gross focal neuro deficits Assessment and plan: #Drug Induced Liver Injury with Elevated LFT Avoid hepatotoxic medications Daily CMP Diet as tolerated Maintain optimal blood pressures Ferratin and Iron post Arancep #VTac and CAD Continue amiodarone orally Continue monitoring the liver function test Increase the dose of carvedilol CXR to monitor acute fluid overload #Controlled T2DM Sliding scale insulin per protocol Basal Dose Lantus 10 BID Humolog 5 AC-TID DVT ppx: SCDs GI ppx: protonix Code Status: full DC to [facility] anticipated Saturday Objective - Vital Signs Vital signs: Vital Signs Temp 97.4 F L 02/06/25 04:00 Pulse 96 02/07/25 04:00 Resp 18 02/07/25 04:00 BP 102/74 02/07/25 04:00 Pulse Ox 95 02/07/25 04:00 FiO2 Intake & Output 02/06/25 02/07/25 02/07/25 18:59 06:59 18:59 Intake Total 250 540 Output Total 1700 Balance -1450 540 Weight 86.5 kg Intake: IV 10 Invasive Line 3 10 Oral 240 540 Output: Urine 1700 Other: Voiding Method Indwelling Catheter Indwelling Catheter # Voids 2 # Bowel Movements 1 - Labs CBC & Chem 7: 02/05/25 08:31 02/07/25 06:56 Labs: Abnormal Lab Results - Last 24 Hours (Table) 02/06/25 02/06/25 02/06/25 Range/Units 11:12 16:09 20:25 Sodium (137-145) mmol/L Chloride (98-107) mmol/L BUN (7-17) mg/dL Creatinine (0.52-1.04) mg/dL Glucose (74-99) mg/dL POC Glucose (mg/dL) 268 H 195 H 247 H (70-110) mg/dL AST (14-36) U/L ALT (4-34) U/L Alkaline Phosphatase (38-126) U/L Total Protein (6.3-8.2) g/dL Albumin (3.5-5.0) g/dL 02/07/25 02/07/25 Range/Units 06:18 06:56 Sodium 131 L (137-145) mmol/L Chloride 96 L (98-107) mmol/L BUN 56 H (7-17) mg/dL Creatinine 1.61 H (0.52-1.04) mg/dL Glucose 165 H (74-99) mg/dL POC Glucose (mg/dL) 168 H (70-110) mg/dL AST 60 H (14-36) U/L ALT 302 H (4-34) U/L Alkaline Phosphatase 148 H (38-126) U/L Total Protein 5.2 L (6.3-8.2) g/dL Albumin 3.0 L (3.5-5.0) g/dL
[2025-02-07 11:22] LABS: Glucose,Whole Blood 197 mg/dL (70-110)
--- NOTE | 2025-02-07 11:42 | P.PN ---
Subjective Progress Note Date: 02/07/25 Patient seen and examined at bedside. No acute events. No significant abdominal pain. Objective - Vital Signs Vital signs: Vital Signs Temp 97.6 F 02/07/25 08:00 Pulse 99 02/07/25 08:00 Resp 18 02/07/25 08:00 BP 111/73 02/07/25 08:00 Pulse Ox 97 02/07/25 08:00 FiO2 Intake & Output 02/06/25 02/07/25 02/07/25 18:59 06:59 18:59 Intake Total 250 540 Output Total 1700 Balance -1450 540 Weight 86.5 kg Intake: IV 10 Invasive Line 3 10 Oral 240 540 Output: Urine 1700 Other: Voiding Method Indwelling Catheter Indwelling Catheter Bedside Commode # Voids 2 # Bowel Movements 1 - Constitutional General appearance: Present: cooperative - Gastrointestinal Gastrointestinal Comment(s): Soft, nontender, nondistended - Labs CBC & Chem 7: 02/05/25 08:31 02/07/25 06:56 Labs: Abnormal Lab Results - Last 24 Hours (Table) 02/06/25 02/06/25 02/07/25 Range/Units 16:09 20:25 06:18 Sodium (137-145) mmol/L Chloride (98-107) mmol/L BUN (7-17) mg/dL Creatinine (0.52-1.04) mg/dL Glucose (74-99) mg/dL POC Glucose (mg/dL) 195 H 247 H 168 H (70-110) mg/dL AST (14-36) U/L ALT (4-34) U/L Alkaline Phosphatase (38-126) U/L Total Protein (6.3-8.2) g/dL Albumin (3.5-5.0) g/dL 02/07/25 02/07/25 Range/Units 06:56 11:20 Sodium 131 L (137-145) mmol/L Chloride 96 L (98-107) mmol/L BUN 56 H (7-17) mg/dL Creatinine 1.61 H (0.52-1.04) mg/dL Glucose 165 H (74-99) mg/dL POC Glucose (mg/dL) 197 H (70-110) mg/dL AST 60 H (14-36) U/L ALT 302 H (4-34) U/L Alkaline Phosphatase 148 H (38-126) U/L Total Protein 5.2 L (6.3-8.2) g/dL Albumin 3.0 L (3.5-5.0) g/dL Assessment and Plan Plan: 74-year-old female with polyp in the gallbladder and concern for acute hepatitis. Being followed by GI. No plan for surgical intervention. Continue medical management.
[2025-02-07 13:24] VITALS: RESP 16
[2025-02-07] MEDS: FUROSEMIDE 40 MG TAB PO SCH (15:56)
[2025-02-07 16:32] LABS: Glucose,Whole Blood 263 mg/dL (70-110)
--- NOTE | 2025-02-07 16:57 | P.PN ---
Subjective Progress Note Date: 02/07/25 Principal diagnosis: Reason for follow-up is leukocytosis and elevated liver enzymes Patient is a 74-year-old female with a past medical history significant for multiple comorbidity includingAsthma, Coronary Artery Disease (CAD), Chest Pain / Angina, Heart Failure, Diabetes Mellitus, GERD/Reflux, Hyperlipidemia, Hypertension, Myocardial Infarction (SC), Osteoarthritis (OA), Pneumonia, Renal Disease, Syncope, recently did have left nephrectomy has been brought to the hospital for palpitation and noticed to have ventricular tachycardia requiring shock resuscitation and subsequent transfer to this facility patient noticed to have elevated liver enzymes and abdominal ultrasound prompting this consultation. On today's evaluation that is 02/07/2025, Patient is afebrile patient is currently on room air and denies having any shortness of breath, the patient denies any chest pain or cough, the patient denies any nausea vomiting did not have any abdominal pain and no diarrhea mention feeling better. Patient did have a creatinine 1.61 liver enzymes continue to improve Objective - Vital Signs Vital signs: Vital Signs Temp 97.6 F 02/07/25 08:00 Pulse 92 02/07/25 12:00 Resp 16 02/07/25 12:00 BP 112/70 02/07/25 12:00 Pulse Ox 97 02/07/25 12:00 FiO2 Intake & Output 02/06/25 02/07/25 02/07/25 18:59 06:59 18:59 Intake Total 250 540 480 Output Total 1700 Balance -1450 540 480 Weight 86.5 kg Intake: IV 10 Invasive Line 3 10 Oral 240 540 480 Output: Urine 1700 Other: Voiding Method Indwelling Catheter Indwelling Catheter Bedside Commode # Voids 2 # Bowel Movements 1 - Exam GENERAL DESCRIPTION: An elderly female lying in bed in no distress RESPIRATORY SYSTEM: Unlabored breathing , decreased breath sounds at bases HEART: S1 S2 regular rate and rhythm , ABDOMEN: Soft , no tenderness EXTREMITIES: No edema feet - Labs CBC & Chem 7: 02/05/25 08:31 02/07/25 06:56 Labs: Abnormal Lab Results - Last 24 Hours (Table) 02/06/25 02/07/25 02/07/25 Range/Units 20:25 06:18 06:56 Sodium 131 L (137-145) mmol/L Chloride 96 L (98-107) mmol/L BUN 56 H (7-17) mg/dL Creatinine 1.61 H (0.52-1.04) mg/dL Glucose 165 H (74-99) mg/dL POC Glucose (mg/dL) 247 H 168 H (70-110) mg/dL AST 60 H (14-36) U/L ALT 302 H (4-34) U/L Alkaline Phosphatase 148 H (38-126) U/L Total Protein 5.2 L (6.3-8.2) g/dL Albumin 3.0 L (3.5-5.0) g/dL 02/07/25 02/07/25 Range/Units 11:20 16:31 Sodium (137-145) mmol/L Chloride (98-107) mmol/L BUN (7-17) mg/dL Creatinine (0.52-1.04) mg/dL Glucose (74-99) mg/dL POC Glucose (mg/dL) 197 H 263 H (70-110) mg/dL AST (14-36) U/L ALT (4-34) U/L Alkaline Phosphatase (38-126) U/L Total Protein (6.3-8.2) g/dL Albumin (3.5-5.0) g/dL Assessment and Plan (1) Elevated liver enzymes Current Visit: Yes Status: Acute Code(s): R74.8 - ABNORMAL LEVELS OF OTHER SERUM ENZYMES SNOMED Code(s): 228490935 (2) Leukocytosis Current Visit: Yes Status: Acute Code(s): D72.829 - ELEVATED WHITE BLOOD C ELL COUNT, UNSPECIFIED SNOMED Code(s): 017876016 (3) Allergy to multiple antibiotics Current Visit: No Status: Acute Code(s): Z88.1 - ALLERGY STATUS TO OTHER ANTIBIOTIC AGENTS SNOMED Code(s): 085487415 Plan: 1patient with multiple comorbidities in this patient was status post left nephrectomy now presented to the hospital with palpitation shortness of breath patient was noticed to be in ventricular tachycardia requiring cardioversion and amiodarone now with evidence of worsening liver enzymes there was concern for some abnormality to the gallbladder however the patient currently does not have any pain to the right upper quadrant area or any tenderness and elevated liver enzymes more likely related to the passive congestion from her cardiac condition 2-patient with multiple antibiotic ALLERGIES that would limit the number of antibiotic safe to use 3-patient did have a normal procalcitonin, the patient white count normalized and the patient liver enzymes are slowly trending down without any antibiotic th erapy, will monitor closely off antibiotic therapy question concern answered Dictation was produced using [employer] dictation software. please excuse any grammatical, word or spelling errors. Time with Patient: Less than 30
[2025-02-07] MEDS: PANTOPRAZOLE 40 MG TABLET PO SCH (17:22)
[2025-02-07 20:00] LABS: Glucose,Whole Blood 289 mg/dL (70-110)
[2025-02-08 06:53] LABS: ALT 236 U/L (4-34); AST 48 U/L (14-36); African American GFR (CKD) 34 (>60 ml/min/1.73 sqM); Albumin 3.1 g/dL (3.5-5.0); Alkaline Phosphatase 142 U/L (38-126); Anion Gap 6 mmol/L; Blood Urea Nitrogen 53 mg/dL (7-17); Calcium 9.1 mg/dL (8.4-10.2); Carbon Dioxide 30 mmol/L (22-30); Chloride 97 mmol/L (98-107); Glucose 160 mg/dL (74-99); Magnesium 2.1 mg/dL (1.6-2.3); Non-African American GFR(CKD) 30 (>60 ml/min/1.73 sqM); Potassium 4.3 mmol/L (3.5-5.1); Sodium 133 mmol/L (137-145); Total Protein 5.3 g/dL (6.3-8.2)
[2025-02-08 06:56] LABS: Glucose,Whole Blood 131 mg/dL (70-110)
--- NOTE | 2025-02-08 09:02 | P.PN ---
Subjective Progress Note Date: 02/08/25 The patient was seen and evaluated this morning. She still feeling congested but no symptoms of chest pain or chest discomfort. She has been maintaining sinus rhythm on the current dose of amiodarone. Her liver function test are elevated. Will follow-up with the trend of liver function test and continue tapering down the dose of amiodarone. Beside that the pressure is elevated. I am going to increase the dose of carvedilol. Heparin will be discontinued later on today. Echo will be ordered as well. The physical examination is remarkable for distant heart sounds with regular rate and rhythm and soft systolic murmur and diminished breathing sounds bilaterally and mild bilateral lower extremities edema 02/02/2025 Patient seen and examined. Patient states that she is feeling better today. S he has been maintaining a sinus rhythm. She continues to have lower extremity edema. Blood pressure is on the low side. Renal function has worsened. Blood pressure 99/62, heart rate 69, pulse ox 94% on room air. Repeat blood work reveals WBC 14, hemoglobin 9.6, INR 1.3. BUN 51 creatinine 2.45. AST 785, ALT 1678, alkaline phosphatase 157. C-reactive protein 6.1. Echocardiogram is pending. The physical examination is remarkable for distant heart sounds with regular rate and rhythm and soft systolic murmur and diminished breathing sounds bilaterally and mild bilateral lower extremities edema 02/03/2025 Patient seen and examined. Patient is on IV Lasix 40 mg daily per nephrology. Echocardiogram is pending. Patient continues to have upper extremity edema, lower extremity edema is improving. Blood pressure 118/73, heart rate 60, pulse ox 97% on room air. Repeat blood work reveals hemoglobin 9.8, sodium 127, potassium 4.7, BUN 49 creatinine 2.19. AST 495, ALT 1302. 02/04/2025 Patient seen and examined. Patient has been maintained on IV Lasix 40 mg daily by nephrology. She does have improvement of the upper and lower extremity edema. Blood pressure 113/75, heart rate 91, pulse ox 97% on room air. Repeat blood work reveals hemoglobin 10, BUN 50 creatinine 2.24. Liver function test are improving with AST 239, ALT 933, alkaline phosphatase 173. Echocardiogram reveals EF of 10 to 15%, moderate right ventricular dilatation, moderate pulmonary hypertension, moderate mitral regurgitation, bioprosthetic valve in aortic position with mild aortic stenosis, severe tricuspid regurgitation. 02/05/2025 Patient seen and examined. Patient is sitting up in a recliner with legs elevated today. She denies having chest pain or shortness of breath. She states she has not ambulated since she has been here. They are looking at rehab for her. She continues to have some edema in upper and lower extremities but improving. Renal function is improving. Blood pressure 110/74, heart rate in the 90s, pulse ox 96% on room air. No repeat blood work available at the time of this dictation but yesterday afternoon she had repeat BMP which revealed BUN 51 and creatinine 1.96. Yesterday, nephrology increased IV Lasix 40 mg to frequency of twice daily 02/06/2025 Patient seen and examined. Edema is improving. Yesterday we added hydralazine at 10 mg 3 times daily and resumed her Imdur 60 mg twice daily. Blood pressures 112/71, heart rate 98, pulse ox 100% on room air. Patient states that her breathing is okay. She denies any chest pain. She is been urinating well she has a Alford catheter in place. Sodium 131, potassium 4.1, BUN 56 and creatinine 1.6. 02/07/2025 Patient seen and examined. Edema is improving slowly but she continues to have fluid overload. She has been maintained on IV Lasix 40 mg twice daily by nephrology. Patient has a negative fluid balance. Alford catheter was removed yesterday. She states she has been up to the commode chair a couple times and did not experience dizziness. Patient remains in a sinus rhythm. Blood pressure 102/74, heart rate 96, pulse ox 95% on room air. EKG obtained this morning reveals atrial tachycardia most likely versus atrial flutter with borderline RVR. Repeat blood work today reveals sodium 131, potassium 4.5, BUN 56 creatinine 1.61. AST 60, ALT 302, alkaline phosphatase 148. 02/08/2025 Seen and examined at bedside this a.m. BP 108/72, heart rate 93 beats minute, telemetry shows heart rate around 90 to 100 bpm and appears to be sinus versus atrial tachycardia. Less likely atrial fibrillation. Kidney function is stable with creatinine of 1.68 Currently on Lasix 40 twice daily. Physical Examination LUNGS: Diminished breath sounds bilaterally. No intercostal retractions. HEART: Distant heart sounds, regular rate and rhythm. Systolic murmur. Elevated JVP ABDOMEN: Soft. No tenderness. EXTREMITIES: +edema in hip areas, 1+ bilateral lower extremity and left arm edema. No calf tenderness. NEUROLOGICAL: Patient is awake, alert and oriented x3. FINAL ASSESSMENT AND PLAN: Ventricular tachycardia Acute systolic heart failure Atrial tachycardia versus atrial flutter with borderline RVR Ischemic cardiomyopathy with EF of 10 to 15% Status post AICD History of multivessel coronary artery disease Acute kidney injury and chronic kidney disease Status post nephrectomy in early January Elevated liver function tests, improving PLAN: She started on amiodarone 200 twice daily on 02/01/2025. Will reduce it to amiodarone 200 daily today on 02/08/2025. Stop Coreg and instead start metoprolol 50 twice daily for better beta-1 activity If heart rates are still high tomorrow, consider starting Corlanor on outpatient basis versus cardioversion Obtain ICD interrogation to understand intrinsic rhythm Continue hydralazine 25 mg 3 times daily with goal of blood pressure 100/50, Continue patient on Imdur 60 mg twice daily Appreciate input from nephrology regarding SGLT2a Objective - Vital Signs Vital signs: Vital Signs Temp 97.6 F 02/08/25 03:53 Pulse 93 02/08/25 03:53 Resp 16 02/08/25 03:53 BP 108/72 02/08/25 03:53 Pulse Ox 99 02/08/25 03:53 FiO2 Intake & Output 02/07/25 02/08/25 02/08/25 18:59 06:59 18:59 Intake Total 480 170 Balance 480 170 Weight 86 kg Intake: IV 10 Invasive Line 3 10 Oral 480 160 Other: Voiding Method Bedside Commode Bedside Commode # Voids 2 1 # Bowel Movements 1 - Labs CBC & Chem 7: 02/05/25 08:31 02/08/25 05:20 Labs: Abnormal Lab Results - Last 24 Hours (Table) 02/07/25 02/07/25 02/07/25 Range/Units 11:20 16:31 19:56 Sodium (137-145) mmol/L Chloride (98-107) mmol/L BUN (7-17) mg/dL Creatinine (0.52-1.04) mg/dL Glucose (74-99) mg/dL POC Glucose (mg/dL) 197 H 263 H 289 H (70-110) mg/dL AST (14-36) U/L ALT (4-34) U/L Alkaline Phosphatase (38-126) U/L Total Protein (6.3-8.2) g/dL Albumin (3.5-5.0) g/dL 02/08/25 02/08/25 Range/Units 05:20 06:55 Sodium 133 L (137-145) mmol/L Chloride 97 L (98-107) mmol/L BUN 53 H (7-17) mg/dL Creatinine 1.68 H (0.52-1.04) mg/dL Glucose 160 H (74-99) mg/dL POC Glucose (mg/dL) 131 H (70-110) mg/dL AST 48 H (14-36) U/L ALT 236 H (4-34) U/L Alkaline Phosphatase 142 H (38-126) U/L Total Protein 5.3 L (6.3-8.2) g/dL Albumin 3.1 L (3.5-5.0) g/dL
[2025-02-08 11:41] LABS: Glucose,Whole Blood 155 mg/dL (70-110)
[2025-02-08 12:03] VITALS: BP 110/63; PULSE 95; TEMP 98.3
--- NOTE | 2025-02-08 12:35 | P.PN ---
Subjective Progress Note Date: 02/08/25 Patient is seen in follow-up for acute kidney injury on chronic kidney disease. She feels significantly better today. She denies chest pain, SOB, or nausea. Her creatinine is 1.68 this morning, with her baseline 1.7-2. She is able to be discharged from a nephrology standpoint. f/u outpatient in 1 week. Objective - Vital Signs Vital signs: Vital Signs Temp 97.6 F 02/08/25 03:53 Pulse 93 02/08/25 03:53 Resp 16 02/08/25 03:53 BP 108/72 02/08/25 03:53 Pulse Ox 99 02/08/25 03:53 FiO2 Intake & Output 02/07/25 02/08/25 02/08/25 18:59 06:59 18:59 Intake Total 480 170 Balance 480 170 Weight 86 kg Intake: IV 10 Invasive Line 3 10 Oral 480 160 Other: Voiding Method Bedside Commode Bedside Commode # Voids 2 1 # Bowel Movements 1 - Exam Vital signs are stable. General: The patient no acute distress. HEENT: Head exam is unremarkable. On room air. LUNGS: No audible rhonchi or wheezes. HEART: Rate and Rhythm are regular. ABDOMEN: Obese, nontender. EXTREMITITES: 2+ edema - Labs CBC & Chem 7: 02/05/25 08:31 02/08/25 05:20 Labs: Abnormal Lab Results - Last 24 Hours (Table) 02/07/25 02/07/25 02/07/25 Range/Units 11:20 16:31 19:56 Sodium (137-145) mmol/L Chloride (98-107) mmol/L BUN (7-17) mg/dL Creatinine (0.52-1.04) mg/dL Glucose (74-99) mg/dL POC Glucose (mg/dL) 197 H 263 H 289 H (70-110) mg/dL AST (14-36) U/L ALT (4-34) U/L Alkaline Phosphatase (38-126) U/L Total Protein (6.3-8.2) g/dL Albumin (3.5-5.0) g/dL 02/08/25 02/08/25 Range/Units 05:20 06:55 Sodium 133 L (137-145) mmol/L Chloride 97 L (98-107) mmol/L BUN 53 H (7-17) mg/dL Creatinine 1.68 H (0.52-1.04) mg/dL Glucose 160 H (74-99) mg/dL POC Glucose (mg/dL) 131 H (70-110) mg/dL AST 48 H (14-36) U/L ALT 236 H (4-34) U/L Alkaline Phosphatase 142 H (38-126) U/L Total Protein 5.3 L (6.3-8.2) g/dL Albumin 3.1 L (3.5-5.0) g/dL Assessment and Plan Assessment: 1. Acute kidney injury secondary to ATN secondary to diuresis and hemodynamic instability. Renal function improved. Creatinine stable at 1.6 2. Chronic kidney disease stage IV secondary to solitary kidney with recent creatinine 1.7-1.9. 3. V. tach status post amiodarone drip. 4. Hyperkalemia secondary to acidosis, chronic kidney disease, potassium supplementation and hyperglycemia. Improved. 5. Shock liver, LFTs improving 6. Metabolic acidosis secondary to acute kidney injury, improved 7. Volume overload. Improving with diuresis. 8. Diabetes mellitus. 9. Urinary retention. Resolved, gaston catheter removed 10. Acute on chronic systolic CHF ejection fraction of 10 to 15%. 11. Anemia of chronic disease. On Aranesp q7d Plan: Continue lasix BID Maintain low-salt diet Stable for discharge from nephro standpoint. Follow up with nephrology outpatient in 1 week
[2025-02-08 12:59] VITALS: BMI 39.6
--- NOTE | 2025-02-08 13:25 | P.DS ---
Providers Date of admission: 01/31/25 05:33 Attending physician: Liza Fair Consults: 01/31/25 05:33 Consult Physician Routine Consulting Provider: [facility] Consult Reason/Comments: nstemi, ventricular tachycardia Do you want consulting provider notified?: Yes Consult Physician Routine Consulting Provider: Minerva Avalos Consult Reason/Comments: ckd, mild hyperkalemia Do you want consulting provider notified?: Yes 01/31/25 11:18 Consult Physician Routine Consulting Provider: De Gardner Consult Reason/Comments: Abnormal CT abdominal findings Do you want consulting provider notified?: Yes 02/01/25 09:23 Consult Physician Urgent Consulting Provider: Trena Grewal Consult Reason/Comments: transaminitis, poss CBD stone Do you want consulting provider notified?: Yes 02/01/25 14:06 Consult Physician Routine Consulting Provider: Devan Chirinos Consult Reason/Comments: Possible cholecystitis, evaluate for need for antibiotic Do you want consulting provider notified?: Yes Primary care physician: Galo Borges MD Hospital Course: Discharge Diagnosis: #Drug Induced Liver Injury with Elevated LFT #VTac and CAD #Controlled T2DM Hospital Course: patient 74-year-old lady with past medical history significant for coronary artery disease, heart failure, hyperlipidemia, hypertension who presented the ER for elevated blood sugar levels. Patient stated recently she had nephrectomy done at another facility, following that patient was recuperating well. There was no complaint of any abdominal pain. Patient denies any nausea or vomiting. There was no complaint of chest pain. Patient denies any complain of palpitations. There was no complaint of orthopnea or PND. Patient denies any complaint of dizziness. There is no complaint of headache. Patient checked her blood sugars at home and was found to be elevated and decided to come to the ER. Initial lab work done in the ER showed WBC 10.93, hemoglobin 10.9, platelet count 84, sodium 131, potassium 5.7, BUN 37, creatinine 1.92, glucose 239, bilirubin 1.4 AST 644, ALT 516 troponin 0.922 proBNP [id number] Chest x-ray done in the ERShowed chronic changes without acute pulmonary CT abdomen pelvis done showed small to moderate bilateral pleural effusion with compressive atelectasis, fractures of multiple left lower ribs. Mild anasarca. Gallbladder is underdistended filled with hyperdense sludge and contains a 4 mm stone in the neck Initial EKG showing patient to be in V. tach, initially patient was hemodynamic stable and was started on amiodarone drip, following that patient became hypotensive and had to be cardioverted with 100 J. Patient admitted to internal medicine service Working with cardiology and nephrology she recieved lasix for pulmonary edema and followed progress with serial chest xrays. Her medical managment for CAD and A Fib was readjusted in conjunction with cardiology. At time of discharge she is hemodynamically stable and [facility]. Pt seen and examined at bedside: Vital signs reveiwed and stable: General: non toxic, no distress, appears at stated age, normal weight Derm: no unusual rashes/lesions, warm Head: atraumatic, normocephalic, symmetric Eyes: EOMI, no lid lag, anicteric sclera, pupils equal round reactive to light ENT: Nose and ears atraumatic Neck: No cervical lymphadenopathy, trachea midline, supple Mouth: no lip lesion, mucus membranes moist Cardiovascular: S1S2 reg, no murmur, positive dorsalis pedis pulse bilateral, no edema Lungs: Decreased air entry bilaterally, no rhonchi, no rales, no accessory muscle use Abdominal: soft, nontender to palpation, no guarding Ext: muscle strength 5 out of 5 in all 4 extremities grossly, no gross muscle atrophy, no contractures, Neuro: CN II-XI grossly intact, no gross focal neuro deficits Psych: Alert, oriented, appropriate affect A total of 30 minutes were spent preparing this complex discarge summary. Patient was discharged on 02/08/2025 Patient Condition at Discharge: Serious Plan - Discharge Summary Discharge Rx Participant: No New Discharge Prescriptions: New hydrALAZINE HCL [Apresoline] 25 mg PO TID #42 tab Amiodarone [Cordarone] 200 mg PO DAILY 14 Days #14 tab Furosemide [Lasix] 40 mg PO BID #28 tab Metoprolol Tartrate [Lopressor] 50 mg PO BID 14 Days #28 tab Continue Montelukast [Singulair] 10 mg PO HS Famotidine [Pepcid] 20 mg PO HS Evolocumab [Repatha Syringe] 140 mg SQ Q14D Insulin Lispro [humaLOG Kwikpen] See Protocol SQ TID-W/MEALS Isosorbide Mononitrate ER [Imdur] 60 mg PO BID Acetaminophen Tab [Tylenol] 1,000 mg PO BID Insulin Glargine,Hum.rec.anlog [Lantus Solostar Pen] 10 units SQ BID Ranolazine [Ranexa] 500 mg PO BID Nystatin 100,000 Unit/gm Powd [Mycostatin Powder] 1 applic TOPICAL BID Nystatin 100,000Unit/gm Cream [Mycostatin Cream] 1 applic TOPICAL BID Acetaminophen Tab [Tylenol] 1,000 mg PO Q6HR PRN PRN Reason: Pain Or Fever > 100.5 polyethylene glycoL 3350 [Miralax] 17 gm PO HS #30 packet FLUoxetine HCL [PROzac] 20 mg PO DAILY HYDROcodone/APAP 5-325MG [[place] 5-325] 1 tab PO Q6HR PRN PRN Reason: Pain Lidocaine 5% Patch [Lidoderm 5% Patch] 1 patch TOPICAL DAILY Changed allopurinoL [Zyloprim] 50 mg PO HS #14 tab Discontinued Furosemide [Lasix] 20 mg PO DAILY carvediloL [Coreg] 3.125 mg PO BID-W/MEALS 30 Days #60 tab Linezolid [Zyvox] 600 mg PO Q12H 12 Days #24 tab Potassium Chloride 10 meq PO DAILY Discharge Medication List Famotidine [Pepcid] 20 mg PO HS 06/20/16 [History] Montelukast [Singulair] 10 mg PO HS 06/20/16 [History] Evolocumab [Repatha Syringe] 140 mg SQ Q14D 10/05/19 [History] Insulin Glargine,Hum.rec.anlog [Lantus Solostar Pen] 10 units SQ BID 02/21/23 [History] Insulin Lispro [humaLOG Kwikpen] See Protocol SQ TID-W/MEALS 02/21/23 [History] Ranolazine [Ranexa] 500 mg PO BID 02/21/23 [History] Nystatin 100,000 Unit/gm Powd [Mycostatin Powder] 1 applic TOPICAL BID 10/18/24 [History] Acetaminophen Tab [Tylenol] 1,000 mg PO BID 01/05/25 [History] Acetaminophen Tab [Tylenol] 1,000 mg PO Q6HR PRN 01/05/25 [History] Isosorbide Mononitrate ER [Imdur] 60 mg PO BID 01/05/25 [History] Nystatin 100,000Unit/gm Cream [Mycostatin Cream] 1 applic TOPICAL BID 01/05/25 [History] polyethylene glycoL 3350 [Miralax] 17 gm PO HS #30 packet 01/15/25 [Rx] FLUoxetine HCL [PROzac] 20 mg PO DAILY 01/31/25 [History] HYDROcodone/APAP 5-325MG [[place] 5-325] 1 tab PO Q6HR PRN 01/31/25 [History] Lidocaine 5% Patch [Lidoderm 5% Patch] 1 patch TOPICAL DAILY 01/31/25 [History] Amiodarone [Cordarone] 200 mg PO DAILY 14 Days #14 tab 02/08/25 [Rx] Furosemide [Lasix] 40 mg PO BID #28 tab 02/08/25 [Rx] Metoprolol Tartrate [Lopressor] 50 mg PO BID 14 Days #28 tab 02/08/25 [Rx] allopurinoL [Zyloprim] 50 mg PO HS #14 tab 02/08/25 [Rx] hydrALAZINE HCL [Apresoline] 25 mg PO TID #42 tab 02/08/25 [Rx] Follow up Appointment(s)/Referral(s): Galo Borges MD [Primary Care Provider] - 1-2 days Trena Grewal MD [STAFF PHYSICIAN] - 1 Week Discharge Disposition: TRANSFER TO SNF/ECF
--- NOTE | 2025-02-08 14:35 | P.PN ---
Progress Note - Text Progress Note Date: 02/08/25 No acute events overnight VSS General-NAD CVS-RRR Lungs-NLB Abdomen-soft, NTND 74-year-old female with polyp in the gallbladder and concern for acute hepatitis. Being followed by GI. No plan for surgical intervention. Continue medical management. Eze Beck DO [facility] [phone]
[2025-02-08] MEDS ORDERED: METOPROLOL TARTRATE 50 MG TAB PO SCH (21:00)
[2025-02-09] MEDS ORDERED: AMIODARONE 200 MG TAB PO SCH (09:00)
--- NOTE | 2025-02-09 09:03 | CDI ---
Documentation Clarification Form Date: 02/09/2025 07:53:00 AM From: Nicolasa Berg RN, CCDS Phone: [phone] Admit Date: 01/31/2025 05:33:00 AM Patient Name: Gypsy Auguste Visit Number: [id number] Discharge Date: 02/08/2025 03:50:00 PM ATTENTION: The Clinical Documentation Specialists (CDI) and [facility] Coding Staff appreciate your assistance in clarifying documentation. Please respond to the clarification below the line at the bottom and electronically sign. The CDI & [facility] Coding staff will review the response and follow-up if needed. Please note: Queries are made part of the Legal Health Record. If you have any questions, please contact the author of this message via ITS. Doctor. Anjel Butcher NSTEMI is documented in the Medicine H/P and progress notes until 02/03/25 which may lack sufficient clinical evidence/support in the medical record. Additional clarification is requested. History/Risk Factors: Ischemic Cardiomyopathy, Coronary Artery Disease, Heart Failure, Diabetes Mellitus, Hypertension Clinical Indicators: 74-year-old female present to ED with elevated glucose level. EKG went from sinus to ventricular tachycardia, Patient became hypotensive and required synchronized cardioversion, to restore sinus rhythm. Patient does have AICD 01/31 Cardiology Consult Note: Initial EKG showed sinus rhythm. Second EKG showed wide-complex tachycardia consistent with ventricular tachycardia. Labs: WBC 10.9, hemoglobin 10.9, hematocrit 32.5, platelet 84, sodium 132, potassium 5.6, BUN 37, creatinine 1.94, magnesium 1.2, AST 1791, ALT 1405, BNP 20,400, troponin 0.92 FINAL ASSESSMENT AND PLAN: Ventricular tachycardia Congestive heart failure Ischemic cardiomyopathy Treatment: Cardiac Monitoring/Telemetry Synchronized Cardioversion Amiodarone Drip 150 MG IN 103 ml @618 ml/hr. 01/30-01/30 Heparin Drip Per protocol 01/30-02/01 Amiodarone HCL 200 MG PO BID 02/01-02/07> 200 MG PO DAILY 02/09 Can you please clarify NSTEMI? [ ] No, NSTEMI Ruled out [ x ] Yes, NSTEMI is present as evidence by (additional clinical support): [ ] Other, please specify [ ] Unable to determine (Template Last Revised: October 2020) MTDD
--- NOTE | 2025-02-12 14:53 | P.PN ---
Subjective Progress Note Date: 02/08/25 Principal diagnosis: Reason for follow-up is leukocytosis and elevated liver enzymes Patient is a 74-year-old female with a past medical history significant for multiple comorbidity includingAsthma, Coronary Artery Disease (CAD), Chest Pain / Angina, Heart Failure, Diabetes Mellitus, GERD/Reflux, Hyperlipidemia, Hypertension, Myocardial Infarction (PA), Osteoarthritis (OA), Pneumonia, Renal Disease, Syncope, recently did have left nephrectomy has been brought to the hospital for palpitation and noticed to have ventricular tachycardia requiring shock resuscitation and subsequent transfer to this facility patient noticed to have elevated liver enzymes and abdominal ultrasound prompting this consultation. On today's evaluation that is 02/08/2025, patient has been afebrile, patient is breathing comfortably and is currently on room air, patient denies having any chest pain and cough, patient denies nausea vomiting or diarrhea and no abdominal pain. Mentions feeling better wants to go home. Patient did have a creatinine 1.6 with liver enzymes has improved Objective - Vital Signs Vital signs: Vital Signs Temp 98.3 F 02/08/25 12:00 Pulse 95 02/08/25 12:00 Resp 16 02/08/25 12:00 BP 110/63 02/08/25 12:00 Pulse Ox 96 02/08/25 12:00 FiO2 Intake & Output 02/07/25 02/08/25 02/08/25 18:59 06:59 18:59 Intake Total 480 290 Balance 480 290 Weight 86 kg 86 kg Intake: IV 10 Invasive Line 3 10 Oral 480 280 Other: Voiding Method Bedside Commode Bedside Commode Bedside Commode # Voids 2 1 # Bowel Movements 1 - Exam GENERAL DESCRIPTION: An elderly female lying in bed in no distress RESPIRATORY SYSTEM: Unlabored breathing , decreased breath sounds at bases HEART: S1 S2 regular rate and rhythm , ABDOMEN: Soft , no tenderness EXTREMITIES: No edema feet - Labs CBC & Chem 7: 02/05/25 08:31 02/08/25 05:20 Labs: Abnormal Lab Results - Last 24 Hours (Table) 02/07/25 02/07/25 02/08/25 Range/Units 16:31 19:56 05:20 Sodium 133 L (137-145) mmol/L Chloride 97 L (98-107) mmol/L BUN 53 H (7-17) mg/dL Creatinine 1.68 H (0.52-1.04) mg/dL Glucose 160 H (74-99) mg/dL POC Glucose (mg/dL) 263 H 289 H (70-110) mg/dL AST 48 H (14-36) U/L ALT 236 H (4-34) U/L Alkaline Phosphatase 142 H (38-126) U/L Total Protein 5.3 L (6.3-8.2) g/dL Albumin 3.1 L (3.5-5.0) g/dL 02/08/25 02/08/25 Range/Units 06:55 11:39 Sodium (137-145) mmol/L Chloride (98-107) mmol/L BUN (7-17) mg/dL Creatinine (0.52-1.04) mg/dL Glucose (74-99) mg/dL POC Glucose (mg/dL) 131 H 155 H (70-110) mg/dL AST (14-36) U/L ALT (4-34) U/L Alkaline Phosphatase (38-126) U/L Total Protein (6.3-8.2) g/dL Albumin (3.5-5.0) g/dL Assessment and Plan (1) Elevated liver enzymes Status: Acute Code(s): R74.8 - ABNORMAL LEVELS OF OTHER SERUM ENZYMES SNOMED Code(s): 779717015 (2) Leukocytosis Status: Acute Code(s): D72.829 - ELEVATED WHITE BLOOD CELL COUNT, UNSPECIFIED SNOMED Code(s): 636780632 (3) Allergy to multiple antibiotics Status: Acute Code(s): Z88.1 - ALLERGY STATUS TO OTHER ANTIBIOTIC AGENTS SNOMED Code(s): 101248801 Plan: 1patient with multiple comorbidities in this patient was status post left nephrectomy now presented to the hospital with palpitation shortness of breath patient was noticed to be in ventricular tachycardia requiring cardioversion and amiodarone now with evidence of worsening liver enzymes there was concern for some abnormality to the gallbladder however the patient currently does not have any pain to the right upper quadrant area or any tenderness and elevated liver enzymes more likely related to the passive congestion from her cardiac condition 2-patient with multiple antibiotic ALLERGIES that would limit the number of antibiotic safe to use 3-patient did have a normal procalcitonin, the patient white count normalized and the patient liver enzymes almost normalized there is no need for any antibiotic therapy on discharge Dictation was produced using [employer] software. please excuse any grammatical, word or spelling errors. Time with Patient: Less than 30
== END 2025-02-08 15:50 | DRG 280 ==
LOC: EC 22:21 → 3SCARD 01-31 05:33
PROVIDERS: ADMIT Hospitalist; ATTEND Hospitalist
PROC: 05HD33Z Insertion of Infusion Device into Right Cephalic Vein, Percutaneous Approach (ICD-10-PCS; principal; 2025-02-03 07:30)
DX: I21.4 Non-ST elevation (NSTEMI) myocardial infarction (principal); I50.23 Acute on chronic systolic (congestive) heart failure; K72.00 Acute and subacute hepatic failure without coma; N17.0 Acute kidney failure with tubular necrosis; E87.1 Hypo-osmolality and hyponatremia; D69.6 Thrombocytopenia, unspecified; N18.4 Chronic kidney disease, stage 4 (severe); D63.1 Anemia in chronic kidney disease; I13.0 Hypertensive heart and chronic kidney disease with heart failure and stage 1 through stage 4 chronic kidney disease, or unspecified chronic kidney disease; I27.20 Pulmonary hypertension, unspecified; E11.65 Type 2 diabetes mellitus with hyperglycemia; F32.A Depression, unspecified; J45.909 Unspecified asthma, uncomplicated; Z95.2 Presence of prosthetic heart valve; I47.20 Ventricular tachycardia, unspecified; E87.20 Acidosis, unspecified; I47.19 Other supraventricular tachycardia; N13.30 Unspecified hydronephrosis; B17.9 Acute viral hepatitis, unspecified; I48.91 Unspecified atrial fibrillation; E11.22 Type 2 diabetes mellitus with diabetic chronic kidney disease; I35.0 Nonrheumatic aortic (valve) stenosis; K71.9 Toxic liver disease, unspecified; T50.2X5A Adverse effect of carbonic-anhydrase inhibitors, benzothiadiazides and other diuretics, initial encounter; I95.2 Hypotension due to drugs; T46.2X5A Adverse effect of other antidysrhythmic drugs, initial encounter; X58.XXXA Exposure to other specified factors, initial encounter; E78.5 Hyperlipidemia, unspecified; E87.5 Hyperkalemia; D72.829 Elevated white blood cell count, unspecified; F41.9 Anxiety disorder, unspecified; I08.1 Rheumatic disorders of both mitral and tricuspid valves; R33.8 Other retention of urine; M19.90 Unspecified osteoarthritis, unspecified site; K59.00 Constipation, unspecified; I25.10 Atherosclerotic heart disease of native coronary artery without angina pectoris; I25.2 Old myocardial infarction; I25.5 Ischemic cardiomyopathy; K80.20 Calculus of gallbladder without cholecystitis without obstruction; Z79.899 Other long term (current) drug therapy; Z86.74 Personal history of sudden cardiac arrest; Z88.1 Allergy status to other antibiotic agents; Z90.5 Acquired absence of kidney; Z95.1 Presence of aortocoronary bypass graft; Z95.5 Presence of coronary angioplasty implant and graft; Z95.810 Presence of automatic (implantable) cardiac defibrillator; Z91.81 History of falling; Z88.2 Allergy status to sulfonamides; Z88.8 Allergy status to other drugs, medicaments and biological substances
CPT/HCPCS: 36410; 36415; 51798; 71045; 71046; 74176; 76705; 76770; 76937; 80048; 80053; 80074; 81001; 82009; 82248; 82570; 82728; 82803; 83540; 83550; 83690; 83735; 83880; 83930; 83935; 84132; 84145; 84300; 84484; 85025; 85610; 85730; 86140; 86644; 86645; 86663; 86664; 86665; 93005; 93306; 96365; 96366; 96367; 96368; 96375; 96376; 99291

== ENCOUNTER 2025-02-15 19:14 | Inpatient (IN) | payer MEDICARE ==
--- NOTE | 2025-02-15 19:54 | ED ---
General Adult HPI - General Chief complaint: Chest Pain Stated complaint: [place] Time Seen by Provider: 02/15/25 19:15 Source: patient, EMS Mode of arrival: EMS - History of Present Illness Initial comments: Patient is a 74-year-old female past medical history of CHF, atrial fibrillat ion, defibrillator in place, recent nephrectomy presenting today for generalized weakness and chest pain. Patient states she has been at [facility] for 1 week since having a left-sided nephrectomy done January 26 at [facility]. States since arriving there she has felt weak. Over the last few days she has been experiencing nausea and multiple episodes nonbloody nonbilious emesis. Endorses normal soft stools. Denies abdominal pain or new back pain, fevers or chills. Also notes intermittent substernal chest pain, rates 5 out of 6. Endorse associated shortness of breath. Endorses cough denies sputum production or hemoptysis. Notes bilateral lower extremity edema. - Related Data Home Medications Medication Instructions Recorded Confirmed Famotidine [Pepcid] 20 mg PO HS 06/20/16 01/31/25 Montelukast [Singulair] 10 mg PO HS 06/20/16 01/31/25 Evolocumab [Repatha Syringe] 140 mg SQ Q14D 10/05/19 01/31/25 Insulin Glargine,Hum.rec.anlog 10 units SQ BID 02/21/23 01/31/25 [Lantus Solostar Pen] Insulin Lispro [humaLOG Kwikpen] See Protocol SQ TID-W/MEALS 02/21/23 01/31/25 Ranolazine [Ranexa] 500 mg PO BID 02/21/23 01/31/25 Nystatin 100,000 Unit/gm Powd 1 applic TOPICAL BID 10/18/24 01/31/25 [Mycostatin Powder] Acetaminophen Tab [Tylenol] 1,000 mg PO BID 01/05/25 01/31/25 Acetaminophen Tab [Tylenol] 1,000 mg PO Q6HR PRN 01/05/25 01/31/25 Isosorbide Mononitrate ER [Imdur] 60 mg PO BID 01/05/25 01/31/25 Nystatin 100,000Unit/gm Cream 1 applic TOPICAL BID 01/05/25 01/31/25 [Mycostatin Cream] FLUoxetine HCL [PROzac] 20 mg PO DAILY 01/31/25 01/31/25 Lidocaine 5% Patch [Lidoderm 5% 1 patch TOPICAL DAILY 01/31/25 01/31/25 Patch] Previous Rx's Medication Instructions Recorded polyethylene glycoL 3350 [Miralax] 17 gm PO HS #30 packet 01/15/25 Amiodarone [Cordarone] 200 mg PO DAILY 14 Days #14 tab 02/08/25 Furosemide [Lasix] 40 mg PO BID #28 tab 02/08/25 HYDROcodone/APAP 5-325MG [[place] 1 tab PO Q6HR PRN #4 tab 02/08/25 5-325] Metoprolol Tartrate [Lopressor] 50 mg PO BID 14 Days #28 tab 02/08/25 allopurinoL [Zyloprim] 50 mg PO HS #14 tab 02/08/25 hydrALAZINE HCL [Apresoline] 25 mg PO TID #42 tab 02/08/25 Allergies Allergy/AdvReac Type Severity Reaction Status Date / Time amoxicillin [From Augmentin] Allergy Anaphylaxis Verified 01/31/25 10:33 /rash/hives cefprozil [From Cefzil] Allergy Anaphylaxis Verified 01/31/25 10:33 /rash/hives clavulanic acid Allergy Anaphylaxis Verified 01/31/25 10:33 [From Augmentin] /rash/hives sulfamethoxazole Allergy Anaphylaxis Verified 01/31/25 10:33 [From Bactrim] /rash/hives trimethoprim [From Bactrim] Allergy Anaphylaxis Verified 01/31/25 10:33 /rash/hives Review of Systems ROS Statement: Those systems with pertinent positive or pertinent negative responses have been documented in the HPI. ROS Other: All systems not noted in ROS Statement are negative. Past Medical History Past Medical History: Asthma, Coronary Artery Disease (CAD), Chest Pain / Angina, Heart Failure, Diabetes Mellitus, GERD/Reflux, Hyperlipidemia, Hyper tension, Myocardial Infarction ([place]), Osteoarthritis (OA), Pneumonia, Renal Disease, Syncope Additional Past Medical History / Comment(s): [place] 1997, 2004, 2008, CARDIAC ARREST 2016,GOUT, SPINAL STENOSIS, BRONCHITIS, CONSTIPATION, HX OF DIZZINESS & FALLS, AORTIC STENOSIS, KIDNEY FAILURE STAGE 3-B, PACER/AICD, Fatigue, very SOB w/exertion recently. Aortic Valve Replacement Dec, 2019. 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 Date of Last Stent Placement:: UNKNOWN Type of Cardiac Device: AICD Device Placement Date:: 10-05-16 [facility] [email or web address] Past Psychological History: Anxiety, Depression Smoking Status: Never smoker Past Alcohol Use History: Occasional Past Drug Use History: None Reported - Past Family History Mother Family Medical History: No Reported History Additional Family Medical History / Comment(s): . General Exam - General Exam Comments Initial Comments: PE: CONSTITUTIONAL: [no apparent distress, chronically ill-appearing nontoxic SKIN: Warm, dry, mildly jaundiced, no hives or petechiae EYES: Pupils are equally round, extraocular movements intact without nystagmus, clear conjunctiva, mildly icteric sclera sclera HENT: Normocephalic, atraumatic, moist mucus membranes, oropharynx clear without exudates NECK: , Full range of motion, normal appearance PULMONARY: Clear to auscultation without wheezes, rhonchi, or rales, normal excursion, no accessory muscle use and no stridor CARDIOVASCULAR: Irregularly irregular rate and rhythm normal S1 and S2. No appreciated murmurs, rubs or gallops. Strong radial pulses with intact distal perfusion. 3+ lower extremity pitting edema extending up to the thighs GASTROINTESTINAL: Soft, active bowel sounds throughout, non-tender, non- distended, no palpable masses, no rebound or guarding. No hepatosplenomegaly MUSCULOSKELETAL: Extremities have no gross deformity NEUROLOGIC:_a/o x 3, GCS 15, normal mentation and speech. Moves all extremities x 4 without motor or sensory deficit PSYCHIATRIC:_normal mood and affect, thought process is clear and linear Course Vital Signs 02/15/25 02/16/25 19:21 00:10 Temperature 97.7 F Pulse Rate 52 L 61 Respiratory 18 18 Rate Blood Pressure 146/86 151/69 O2 Sat by Pulse 100 98 Oximetry EKG Findings - EKG Comments: EKG Findings:: Sinus bradycardia, rate 48 bpm first-degree AV block FL interval 227 ms, left axis deviation, low voltage EKG, no significant changes from EKG on 02/09/2025 w/ exception of bradycardia. Repeat EKG obtained due to persistent chest pain, shows sinus bradycardia, QT/QTc borderline prolonged, 478/438 ms, left axis deviation, no new significant ST elevations or depressions, no arrhythmia Medical Decision Making - Medical Decision Making Was pt. sent in by a medical professional or institution (, PA, COMMUNITY SERVICE TECHNICIAN, urgent care, hospital, or care home...) When possible be specific @ -Patient was in of her [facility] facility Did you speak to anyone other than the patient for history (EMS, parent, family, police, friend...)? What history was obtained from this source @ -No Did you review nursing and triage notes (agree or disagree)? Why? @ -I reviewed nursing and triage notes Were old charts reviewed (outside hosp., previous admission, EMS record, old EKG, old radiological studies, urgent care reports/EKG's, care home records)? Report findings @ -Medical records reviewed-reviewed notes sent over from [facility] printed from patient's recent admission, on note review, patient had an echocardiogram done during her recent admission in January that showed an ejection fraction of 10 to 15% Differential Diagnosis (chest pain, altered mental status, abdominal pain women, abdominal pain men, vaginal bleeding, weakness, fever, dyspnea, syncope, headache, dizziness, GI bleed, back pain, seizure, CVA, palpatations, mental health, musculoskeletal)? @Differential Chest Pain: Stable Angina, Unstable Angina, STEMI, NSTEMI Aortic Dissection, pericarditis, pleurisy, chostochondirits, Pneumothorax, Musculoskeletal, Esophageal Spasm GERD, Cholecystitis, Pancreatitis, Zoster, this is not meant to be an all-inclus carmen list. EKG interpreted by me (3pts min.). @ -As above X-rays interpreted by me (1pt min.). @Personally reviewed chest x-ray, shows cardiomegaly, shows small pleural effusion, no consolidations I agree with radiologist interpretation CT interpreted by me (1pt min.). @ -Reviewed CT abdomen pelvis I see no evidence of obstruction, small amount of free fluid, suspect postsurgical, patient has no significant leukocytosis, no signs of infection on exam, I agree with radiologist interpretation U/S interpreted by me (1pt. min.). @ -None done What testing was considered but not performed or refused? (CT, X-rays, U/S, labs)? Why? CT PE study was considered however patient has WENDY with poor renal function, GFR 17, patient was started on heparin infusion and a VQ scan was ordered What meds were considered but not given or refused? Why? @Heparin bolus with infusion was considered however patient did recently hit her head, CT brain was negative however due to recent head injury bolus was held Did you discuss the management of the patient with other professionals (professionals i.e. , PA, COMMUNITY SERVICE TECHNICIAN, lab, RT, psych nurse, psychiatric social worker supervisor, activity director, teacher, armed custom protection officer, manager rn case)? Give summary @ -No Was smoking cessation discussed for >3mins.? @ -No Was critical care preformed (if so, how long)? @Yes 35 minutes Were there social determinants of health that impacted care today? How? (Homele ssness, low income, unemployed, alcoholism, drug addiction, transportation, low edu. Level, literacy, decrease access to med. care, snf, rehab)? @ -No Was there de-escalation of care discussed even if they declined (Discuss DNR or withdrawal of care, Hospice)? @ -No What co-morbidities impacted this encounter? (DM, HTN, Smoking, COPD, CAD, Cancer, CVA, ARF, Chemo, Hep., AIDS, mental health diagnosis, sleep apnea, morbid obesity)? @CKD stage III, recent nephrectomy, CAD, atrial fibrillation Was patient admitted / discharged? Hospital course, mention meds given and route, prescriptions, significant lab abnormalities, going to OR and other pertinent info. Admission- Patient is a pleasant 74-year-old female presenting from [facility] for chest pain, nausea, vomiting and weakness for 2 days. Patient bradycardic on arrival, remaining vital signs within acceptable limits, mildly hypertensive blood pressure 146/86. On assessment patient is mildly jaundiced with mild scleral icterus, abdomen is soft and nontender,post nephrectomy site does not appear erythematous, no dicharge , bilateral lower extremity pitting edema up to the thighs. Will administer aspirin, nitro and morphine for chest pain, obtain EKG cardiac enzymes, D-dimer given recent surgery and shortness of breath, CT Abdo pelvis without contrast, UA. Labs reviewed, LFTs have improved previously, troponin within normal at 0.019, BNP improved from prior however elevated 9300, potassium 5.9 without peaked T waves on EKG, due to elevated BNP, patient appearing peripherally fluid overloaded will be given 80 mg IV Lasix which should also lower potassium, patient also has an WENDY with a creatinine of 2.69 previously on 02/12/2025 was 1.68, GFR down to 17. I suspect this may be secondary to poor perfusion from CHF, nephrology will be consulted. Additionally D-dimer is 3.07. Patient cannot obtain CT PE study due to renal function, VQ scan ordered she will be started on high-dose heparin infusion until PE can be ruled out. Patient's chest pain improved to 3 out of 10. Repeat EKG did not show signs of evolving infarction. Patient admitted to [facility] in stable condition. Undiagnosed new problem with uncertain prognosis? @ -No Drug Therapy requiring intensive monitoring for toxicity (Heparin, Nitro, Insulin, Cardizem)? @ -No Were any procedures done? @ -No Diagnosis/symptom? @ -WENDY, elevated d dimer, CHF exacerbation, hyperkalemia, hyponatremia, chest pain, nausea and vomiting Acute, or Chronic, or Acute on Chronic? @ acute Uncomplicated (without systemic symptoms) or Complicated (systemic symptoms)? @ -complicated Side effects of treatment? @ -No Exacerbation, Progression, or Severe Exacerbation? @ -No Poses a threat to life or bodily function? How? (Chest pain, [place], [place], pneumonia, PE, COPD, DKA, ARF, appy, cholecystitis, CVA, Diverticulitis, Homicidal, Suicidal, threat to staff... and all critical care pts) @ -Yes - Lab Data Result diagrams: 02/15/25 21:02 02/15/25 21:02 Lab Results 02/15/25 02/15/25 02/15/25 Range/Units 21:02 21:02 21:02 WBC 7.90 (4.50-10.00) 10*3/uL RBC 3.50 L (4.10-5.20) 10*6/uL Hgb 11.1 L (12.0-15.0) g/dL Hct 33.2 L (37.2-46.3) % MCV 94.9 (80.0-97.0) fL MCH 31.7 (27.0-32.0) pg MCHC 33.4 (32.0-37.0) g/dL Plt Count 305 (140-440) 10*3/uL MPV 10.7 (9.5-12.2) fL Immature Gran % (Auto) 0.4 % Neutrophils % 80.7 % Lymphocytes % 12.0 % Monocytes % 5.8 % Eosinophils % 0.3 % Basophils % 0.8 % Immature Gran # 0.03 (0.00-0.04) 10*3/uL Neutrophils # 6.38 (1.80-7.70) 10*3/uL Lymphocytes # 0.95 (0.90-5.00) 10*3/uL Monocytes # 0.46 (0.20-1.00) 10*3/uL Eosinophils # 0.02 L (0.04-0.35) 10*3/uL Basophils # 0.06 (0.00-0.10) 10*3/uL PT 11.5 (10.0-12.5) sec INR 1.0 (<1.2) APTT 22.2 (22.0-30.0) sec D-Dimer 3.07 H (<0.60) mg/L FEU Sodium 129 L (137-145) mmol/L Potassium 5.9 H (3.5-5.1) mmol/L Chloride 93 L (98-107) mmol/L Carbon Dioxide 22 (22-30) mmol/L Anion Gap 14 mmol/L BUN 61 H (7-17) mg/dL Creatinine 2.69 H (0.52-1.04) mg/dL Est GFR (CKD-EPI)AfAm 20 (>60 ml/min/1.73 sqM) Est GFR (CKD-EPI)NonAf 17 (>60 ml/min/1.73 sqM) Glucose 198 H (74-99) mg/dL Calcium 10.4 H (8.4-10.2) mg/dL Magnesium 3.0 H (1.6-2.3) mg/dL Total Bilirubin 1.1 (0.2-1.3) mg/dL AST 33 (14-36) U/L ALT 72 H (4-34) U/L Alkaline Phosphatase 135 H (38-126) U/L Troponin I (0.000-0.034) ng/mL NT-Pro-B Natriuret Pep 9300 pg/mL Total Protein 6.4 (6.3-8.2) g/dL Albumin 4.1 (3.5-5.0) g/dL Lipase 56 (23-300) U/L 02/15/25 Range/Units 21:02 WBC (4.50-10.00) 10*3/uL RBC (4.10-5.20) 10*6/uL Hgb (12.0-15.0) g/dL Hct (37.2-46.3) % MCV (80.0-97.0) fL MCH (27.0-32.0) pg MCHC (32.0-37.0) g/dL Plt Count (140-440) 10*3/uL MPV (9.5-12.2) fL Immature Gran % (Auto) % Neutrophils % % Lymphocytes % % Monocytes % % Eosinophils % % Basophils % % Immature Gran # (0.00-0.04) 10*3/uL Neutrophils # (1.80-7.70) 10*3/uL Lymphocytes # (0.90-5.00) 10*3/uL Monocytes # (0.20-1.00) 10*3/uL Eosinophils # (0.04-0.35) 10*3/uL Basophils # (0.00-0.10) 10*3/uL PT (10.0-12.5) sec INR (<1.2) APTT (22.0-30.0) sec D-Dimer (<0.60) mg/L FEU Sodium (137-145) mmol/L Potassium (3.5-5.1) mmol/L Chloride (98-107) mmol/L Carbon Dioxide (22-30) mmol/L Anion Gap mmol/L BUN (7-17) mg/dL Creatinine (0.52-1.04) mg/dL Est GFR (CKD-EPI)AfAm (>60 ml/min/1.73 sqM) Est GFR (CKD-EPI)NonAf (>60 ml/min/1.73 sqM) Glucose (74-99) mg/dL Calcium (8.4-10.2) mg/dL Magnesium (1.6-2.3) mg/dL Total Bilirubin (0.2-1.3) mg/dL AST (14-36) U/L ALT (4-34) U/L Alkaline Phosphatase (38-126) U/L Troponin I 0.019 (0.000-0.034) ng/mL NT-Pro-B Natriuret Pep pg/mL Total Protein (6.3-8.2) g/dL Albumin (3.5-5.0) g/dL Lipase (23-300) U/L Disposition Clinical Impression: Chest pain, WENDY (acute kidney injury), CHF exacerbation, Elevated d-dimer, Hyperkalemia Disposition: ADMITTED IP TO THIS HOSP Condition: Stable
[2025-02-15] MEDS: MORPHINE SULFATE 2 MG/ML SYRINGE IVP STA (20:56)
[2025-02-15] MEDS: ONDANSETRON 4 MG/2 ML VIAL IVP STA (20:58)
[2025-02-15] MEDS: ASPIRIN 81 MG PO STA (20:59)
[2025-02-15] MEDS: NITROGLYCERIN SL TABS 0.4 MG TAB SUBLINGUAL STA (21:01)
[2025-02-15 21:10] LABS: Basophils # (A) 0.06 10*3/uL (0.00-0.10); Basophils % (A) 0.8 %; Eosinophils # (A) 0.02 10*3/uL (0.04-0.35); Eosinophils % (A) 0.3 %; HCT 33.2 % (37.2-46.3); HGB 11.1 g/dL (12.0-15.0); Lymphocytes # (A) 0.95 10*3/uL (0.90-5.00); Lymphocytes % (A) 12.0 %; MCH 31.7 pg (27.0-32.0); MCHC 33.4 g/dL (32.0-37.0); MCV 94.9 fL (80.0-97.0); Monocytes # (A) 0.46 10*3/uL (0.20-1.00); Monocytes % (A) 5.8 %; Neutrophils # (A) 6.38 10*3/uL (1.80-7.70); Neutrophils % (A) 80.7 %; Platelet Count 305 10*3/uL (140-440); RBC 3.50 10*6/uL (4.10-5.20); RDW 17.6 % (11.5-14.5); WBC 7.90 10*3/uL (4.50-10.00)
[2025-02-15 21:25] LABS: INR 1.0 (<1.2); Partial Thromboplastin Time 22.2 sec (22.0-30.0); Prothrombin Time 11.5 sec (10.0-12.5)
[2025-02-15 21:26] LABS: ALT 72 U/L (4-34); AST 33 U/L (14-36); African American GFR (CKD) 20 (>60 ml/min/1.73 sqM); Albumin 4.1 g/dL (3.5-5.0); Alkaline Phosphatase 135 U/L (38-126); Anion Gap 14 mmol/L; Blood Urea Nitrogen 61 mg/dL (7-17); Calcium 10.4 mg/dL (8.4-10.2); Carbon Dioxide 22 mmol/L (22-30); Chloride 93 mmol/L (98-107); Glucose 198 mg/dL (74-99); Lipase 56 U/L (23-300); Magnesium 3.0 mg/dL (1.6-2.3); Non-African American GFR(CKD) 17 (>60 ml/min/1.73 sqM); Potassium 5.9 mmol/L (3.5-5.1); Sodium 129 mmol/L (137-145); Total Protein 6.4 g/dL (6.3-8.2)
[2025-02-15 21:32] LABS: NT-Pro-B-Type Natriuretic Pept 9300 pg/mL
--- NOTE | 2025-02-15 21:49 | XR ---
EXAMINATION TYPE: XR chest 2V DATE OF EXAM: 02/15/2025 9:29 PM COMPARISON: Chest radiographs from 02/04/2025. CLINICAL INDICATION: Female, 74 years old with history of Chest Pain; [facility] TECHNIQUE: XR chest 2V Frontal and lateral views of the chest. FINDINGS: Lungs/Pleura: There is no evidence of pleural effusion, focal consolidation, or pneumothorax. Pulmonary vascularity: Unremarkable. Heart/mediastinum: Cardiomediastinal silhouette is enlarged. Single-lead cardiac conduction device ov erlying the left hemithorax with lead projecting over the right ventricle. Musculoskeletal: No acute osseous pathology. Midline sternotomy wires are noted. Right shoulder arthr oplasty appears intact. Other findings: None IMPRESSION: Cardiomegaly without acute cardiopulmonary disease/process. [facility], , 02/15/2025 9:47 PM
--- NOTE | 2025-02-15 22:05 | CT ---
EXAMINATION TYPE: CT abdomen pelvis wo con DATE OF EXAM: 02/15/2025 9:41 PM COMPARISON: CT abdomen pelvis most recent from 01/30/2025 CLINICAL INDICATION: Female, 74 years old with history of recent nephrectomy, n/v; Patient presents t o the ED via EMS from [facility] with complaints of chest pressure, nausea and vomiting. The pressure ra diates into the abdomen and jaw, pt describes it at as fullness. Patient has significant cardiac hx i ncluding cardiac arrest, open heart surgery, NSTEMI. TECHNIQUE: Axial CT abdomen pelvis wo con;Sagittal and coronal reformats were created on a separate workstation. Contrast used: mL of , (none if empty) Oral contrast used: without Oral Contrast (none if empty) CT DLP: 1073.4 mGycm, Automated exposure control for dose reduction was used. FINDINGS: LOWER CHEST: Small left pleural effusion. Heart is enlarged for size. Cardiac conduction leads presen t aortic valve replacement. High density within the coronary arteries displaced transverse dislocatio ns. Small hiatal hernia. ABDOMEN LIVER: Unremarkable GALLBLADDER AND BILE DUCTS: Layering increased densities within the lumen consistent with gallstones are present. PANCREAS: Unremarkable. SPLEEN: Unremarkable. ADRENAL GLANDS: Unremarkable. KIDNEYS AND URETERS: No evidence of hydronephrosis or obstructing renal calculus. The ureters are unr emarkable. Postsurgical changes with left nephrectomy. Free fluid around the nephrectomy bed prese nt. PELVIS BLADDER: No evidence for wall thickening or mass given limitations of exam. REPRODUCTIVE: Unremarkable. ABDOMEN & PELVIS STOMACH AND BOWEL: No evidence of bowel obstruction. Scattered colonic diverticula. PERITONEUM/RETROPERITONEUM: No evidence of pneumoperitoneum or free fluid. VASCULATURE: Moderate atherosclerotic calcifications are present throughout the abdominal aorta and i ts branches. No evidence of aortic aneurysm. MUSCULOSKELETAL: No acute osseous abnormalities. Severe disc degeneration changes are present through out the thoracolumbar spine. Postsurgical changes at L4-L5 and S1 hardware appears intact. Degenerati on changes worse at the adjoining endplates of L1 and L2. LYMPH NODES: No gross evidence for lymphadenopathy. SOFT TISSUE/ABDOMINAL WALL: Subcutaneous venous gas within the soft tissues compatible with recent escalante rgery. IMPRESSION: 1. Postsurgical changes with left nephrectomy there is small amount of free fluid in the abdomen wit h small left pleural effusion. No organizing fluid collection identified. 2. No evidence for bowel obstruction. 3. Colonic diverticulosis. 4. Mild cardiomegaly with aortic valve repair changes. Coronary artery stent grafts worse dense calc ifications. 5. Cholelithiasis. [facility], , 02/15/2025 10:02 PM
[2025-02-15] MEDS ORDERED: HEPARIN SODIUM 1,000 UN/ML (10ML VL) IV PRN (23:10)
[2025-02-16] MEDS: ONDANSETRON 4 MG/2 ML VIAL IVP STA ×2 (00:12→01:53)
[2025-02-16] MEDS: MORPHINE SULFATE 4 MG/ML SYRINGE IVP STA ×2 (00:14→01:52)
[2025-02-16] MEDS: FUROSEMIDE 10 MG/ML 10 ML VIAL IV STA (00:16)
[2025-02-16] MEDS: HEPARIN SODIUM 1,000 UN/ML (10ML VL) IV ONE (00:55)
[2025-02-16] MEDS ORDERED: NITROGLYCERIN SL TABS 0.4 MG TAB SUBLINGUAL PRN (01:02)
[2025-02-16] MEDS ORDERED: MORPHINE SULFATE 2 MG/ML SYRINGE IVP PRN (01:02)
[2025-02-16] MEDS ORDERED: HYDROmorphone 0.5 MG/0.5 ML SYRINGE IVP PRN (01:07)
[2025-02-16] MEDS ORDERED: MORPHINE SULFATE 4 MG/ML SYRINGE IV PRN (01:07)
[2025-02-16] MEDS ORDERED: NALOXONE 0.4 MG/ML 1 ML VIAL IV PRN (01:07)
[2025-02-16] MEDS: HEPARIN SOD,PORK IN 0.45% NACL 25,000 UNIT in 0.45% NACL 1 250ML.BAG IV SCH (01:16)
[2025-02-16] MEDS: SODIUM ZIRCONIUM CYCLOSILICATE 10 GM PACKET PO ONE (01:25)
[2025-02-16] MEDS ORDERED: AMIODARONE 200 MG TAB PO SCH (09:00)
--- NOTE | 2025-02-16 09:53 | NM ---
EXAMINATION TYPE: NM pul vent and perfuse DATE OF EXAM: 02/16/2025 CLINICAL INDICATION: Female, 74 years old with history of elevated dimer, recent surg.; Shortness of breath COMPARISON: Radiographs 02/15/2025 TECHNIQUE: Utilizing inhalation of 69.6 mCi Tc 99m DTPA aerosol and intravenous injection of 5.36 mC i of Tc 99m MAA, ventilation and perfusion images are acquired post injection in multiple projections . FINDINGS: There is mild heterogeneity of ventilation and perfusion throughout the lungs. No mismatched perfusio n defect is identified. IMPRESSION: Very low probability for pulmonary embolus. [facility], , 02/16/2025 9:51 AM
--- NOTE | 2025-02-16 09:59 | P.NPCON ---
History of Present Illness - Reason for Consult acute renal failure, chronic renal failure - History of Present Illness Reason for consultation: Acute kidney injury on chronic kidney disease History of present illness: Patient is a 74-year-old female seen in renal consultation for acute kidney injury on chronic kidney disease. Patient has chronic kidney disease stage IV secondary to solitary right kidney with recent creatinine in the range of 1.7-2. Creatinine this admission was 2.69. Patient was recently admitted at this facility and required IV diuresis. She does have history of systolic CHF e jection fraction of 10 to 15%. She has history of diabetes. Patient has history of coronary disease and is status post CABG and is also required stents. She came to the hospital from an extended care facility due to nausea vomiting and weakness. She was also having shortness of breath. She underwent a VQ scan this morning. She has been having dry heaves. She has been nauseous. No diarrhea. Denies use of nonsteroidals. Denies gross hematuria or dysuria. Vital signs are stable. General: No acute distress. HEENT: Head exam is unremarkable. On room air. LUNGS: No audible rhonchi or wheezes. HEART: Rate and Rhythm are regular. ABDOMEN: Obese, nontender. EXTREMITITES: 2+ edema. Past Medical History Past Medical History: Asthma, Coronary Artery Disease (CAD), Chest Pain / Angina, Heart Failure, Diabetes Mellitus, GERD/Reflux, Hyperlipidemia, Hypertension, Myocardial Infarction ([place]), Osteoarthritis (OA), Pneumonia, Renal Disease, Syncope Additional Past Medical History / Comment(s): [place] 1998, 2004, 2008, CARDIAC ARR EST 2016,GOUT, SPINAL STENOSIS, BRONCHITIS, CONSTIPATION, HX OF DIZZINESS & FALLS, AORTIC STENOSIS, KIDNEY FAILURE STAGE 3-B, PACER/AICD, Fatigue, very SOB w/exertion recently. Aortic Valve Replacement Dec, 2019. 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 Date of Last Stent Placement:: UNKNOWN Type of Cardiac Device: AICD Device Placement Date:: 10-05-16 lt chest [employer] Past Psychological History: Anxiety, Depression Additional Psychological History / Comment(s): . Smoking Status: Never smoker Past Alcohol Use History: Occasional Past Drug Use History: None Reported - Past Family History Mother Family Medical History: No Reported History Additional Family Medical History / Comment(s): . Medications and Allergies Home Medications Medication Instructions Recorded Confirmed Type Famotidine [Pepcid] 20 mg PO HS 06/20/16 02/16/25 History Montelukast [Singulair] 10 mg PO HS 06/20/16 02/16/25 History Insulin Glargine,Hum.rec.anlog 10 units SQ BID 02/21/23 02/16/25 History [Lantus Solostar Pen] Insulin Lispro [humaLOG Kwikpen] See Protocol SQ AC-TID 02/21/23 02/16/25 History Ranolazine [Ranexa] 500 mg PO BID@0800,1700 02/21/23 02/16/25 History Nystatin 100,000 Unit/gm Powd 1 applic TOPICAL BID 10/18/24 02/16/25 History [Mycostatin Powder] Acetaminophen Tab [Tylenol] 1,000 mg PO BID@0800,1700 01/05/25 02/16/25 History Acetaminophen Tab [Tylenol] 1,000 mg PO Q6HR PRN 01/05/25 02/16/25 History Nystatin 100,000Unit/gm Cream 1 applic TOPICAL BID 01/05/25 02/16/25 History [Mycostatin Cream] polyethylene glycoL 3350 [Miralax] 17 gm PO HS #30 packet 01/15/25 02/16/25 Rx FLUoxetine HCL [PROzac] 20 mg PO DAILY 01/31/25 02/16/25 History Lidocaine 5% Patch [Lidoderm 5% 1 patch TOPICAL DAILY 01/31/25 02/16/25 History Patch] Amiodarone [Cordarone] 200 mg PO DAILY 14 Days #14 tab 02/08/25 02/16/25 Rx HYDROcodone/APAP 5-325MG [[place] 1 tab PO Q6HR PRN #4 tab 02/08/25 02/16/25 Rx 5-325] Furosemide [Lasix] 40 mg PO BID@0800,1400 02/16/25 02/16/25 History Glucerna Shake 237 ml PO DAILY 02/16/25 02/16/25 History Isosorbide Mononitrate ER [Imdur] 60 mg PO BID@0800,1700 02/16/25 02/16/25 Hist ory Magnesium Hydroxide [Milk of 7,200 mg PO DAILY PRN 02/16/25 02/16/25 History Magnesia Concentrate] Metoprolol Tartrate [Lopressor] 50 mg PO BID@0800,1700 02/16/25 02/16/25 History Na Phos,M-B/Na Phos,Di-Ba [Fleet 133 ml RECTAL DAILY PRN 02/16/25 02/16/25 History Adult] Ondansetron [Zofran] 4 mg PO Q6H PRN 02/16/25 02/16/25 History Protect External Ointment 1 applic TOPICAL BID 02/16/25 02/16/25 History Spironolactone 25 mg PO DAILY 02/16/25 02/16/25 History allopurinoL [Zyloprim] 50 mg PO HS 02/16/25 02/16/25 History bisacodyL [Dulcolax] 10 mg RECTAL DAILY PRN 02/16/25 02/16/25 History hydrALAZINE HCL [Apresoline] 25 mg PO TID@0600,1400,2200 02/16/25 02/16/25 History Allergies Allergy/AdvReac Type Severity Reaction Status Date / Time amoxicillin [From Augmentin] Allergy Anaphylaxis Verified 02/16/25 08:55 /rash/hives cefprozil [From Cefzil] Allergy Anaphylaxis Verified 02/16/25 08:55 /rash/hives clavulanic acid Allergy Anaphylaxis Verified 02/16/25 08:55 [From Augmentin] /rash/hives sulfamethoxazole Allergy Anaphylaxis Verified 02/16/25 08:55 [From Bactrim] /rash/hives trimethoprim [From Bactrim] Allergy Anaphylaxis Verified 02/16/25 08:55 /rash/hives Physical Exam Vitals: Vital Signs Temp Pulse Resp BP Pulse Ox 02/16/25 05:18 98.4 F 56 L 18 109/60 98 02/16/25 00:10 61 18 151/69 98 02/15/25 19:21 97.7 F 52 L 18 146/86 100 Intake and Output 02/15/25 02/16/25 02/16/25 22:59 06:59 14:59 Other: Weight 89.811 kg 89.811 kg Results - Lab Results Most recent lab results Calcium 10.4 mg/dL (8.4-10.2) H 02/15/25 21:02 Magnesium 3.0 mg/dL (1.6-2.3) H 02/15/25 21:02 02/15/25 21:02 02/15/25 21:02 Assessment and Plan Plan: Assessment: 1. Acute kidney injury secondary to ATN secondary to cardiorenal syndrome. Creatinine 2.16 on admission. No hydronephrosis noted on CT. 2. Chronic kidney disease stage IV with baseline creatinine 1.7-2 secondary to solitary right kidney. 3. Recent left nephrectomy. 4. Acute on chronic systolic CHF ejection fraction of 10 to 15%. 5. Volume overload. 6. Diabetes mellitus. 7. Coronary disease status post CABG. 8. Hyperkalemia secondary to acute kidney injury, Aldactone. 9. Hypervolemic hyponatremia. Plan: Add IV Lasix 60 mg twice daily. Low-salt diet and 1500 cc fluid restriction. Strict I's and O's. Follow-up morning labs. Avoid nephrotoxins. Continue to monitor renal function and urine output. Follow-up echocardiogram. Thank you for the consultation. I will continue to follow the patient with you during her hospital stay.
[2025-02-16 10:28] LABS: Glucose,Whole Blood 158 mg/dL (70-110)
[2025-02-16] MEDS: INSULIN LISPRO (HumaLOG) 100 UNIT/ML 10 mL VL SQ SCH (10:29)
[2025-02-16] MEDS: FUROSEMIDE 10 MG/ML 10 ML VIAL IV SCH (10:43)
[2025-02-16] MEDS: ISOSORBIDE MONONITRATE ER 30 MG TAB.ER.24H PO SCH (10:44)
[2025-02-16] MEDS: METOPROLOL TARTRATE 50 MG TAB PO SCH (10:44)
[2025-02-16] MEDS: INSULIN GLARGINE (LANTUS) 100 UNIT/ML SYR SQ SCH (10:55)
--- NOTE | 2025-02-16 10:59 | P.CRDCN ---
History of Present Illness History of present illness: HISTORY OF PRESENT ILLNESS: This is a 74-year-old female with a past medical history significant for aortic valve replacement, chronic kidney disease, recent nephrectomy, coronary artery disease with previous CABG, hypertension, hyperlipidemia, diabetes and cardiomyopathy with ICD implantation. Patient follows in the office with Dr. Christine. We have been asked to see the patient in consultation for chest pain. Patient examined at the bedside in the emergency room. Patient gives history that she had a nephrectomy performed on 01/26/2025 at [facility] in [place] due to a nonfunctioning kidney. She states that her surgery went well and she was discharged home. She was admitted to the hospital at the end of January at this facility. Patient did have an episode of ventricular tachycardia and required cardioversion. She reported back to the hospital with multiple symptoms including generalized weakness, fatigue, nausea, dry heaving, dizziness, lightheadedness, shortness of breath, and chest discomfort. Patient was found to have elevated D-dimer. She was started on IV heparin. She underwent VQ scan this morning revealing low probability for pulmonary embolism. DIAGNOSTICS: - EKG reveals mechanism with low voltage QRS. - Chest xray cardiomegaly without acute cardiopulmonary process. - Laboratory data: WBC 7.9. Hemoglobin 11.1. Platelet count 305. WBC 7.9. Hemoglobin 11.1. Platelet count 305. Sodium 129. Potassium 5.9. BUN 61. Creatinine 2.69. Troponin negative x 3. proBNP 9300. - Current home cardiac medications include Ranexa 500 mg twice a day, hydralazin e 25 mg 3 times daily, metoprolol tartrate 50 mg twice a day, Imdur 60 mg twice a day, Lasix 40 mg twice a day, Aldactone 25 mg daily, amiodarone 200 mg daily. - Most recent echocardiogram obtained in 02/03/2025 revealing ejection fraction 10 to 15%, moderate pulm hypertension, bioprosthetic aortic valve with mild aortic stenosis, moderate MR, severe TR - Cardiac catheterization history: October 2019 revealing severe triple-vessel CAD with chronically occluded LAD, first obtuse marginal branch, and critical stenosis in distal right RCA with no progression of disease compared to 2016. Patent ADAM to LAD. Patent SVG to RCA. Medical management was recommended. REVIEW OF SYSTEMS: At the time of my exam: CONSTITUTIONAL: Denies fever or chills. HEENT: Denies blurred vision, vision changes, or eye pain. Denies hemoptysis CARDIOVASCULAR: Denies chest pain. Denies orthopnea. Denies PND. Denies palpitations RESPIRATORY: Denies shortness of breath. GASTROINTESTINAL: Denies abdominal pain. Denies nausea or vomiting. HEMATOLOGIC: Denies bleeding disorders. GENITOURINARY: Denies any blood in urine. SKIN: Denies pruitis. Denies rash. PHYSICAL EXAM: VITAL SIGNS: Reviewed. GENERAL: Well-developed in no acute distress. HEENT: Head is normocephalic. Pupils are equal, round. Sclerae anicteric. Mucous membranes of the mouth are moist. Neck supple. No JVD or thyromegaly LUNGS: Respirations even and unlabored. Lungs essentially clear to auscultation bilaterally. HEART: Regular rate and rhythm. S1 and S2 heard. ABDOMEN: Soft. Nondistended. Nontender. EXTREMITIES: Normal range of motion. No clubbing or cyanosis. Peripheral pulses intact. No lower extremity edema NEUROLOGIC: Awake and alert. Oriented x 3. ASSESSMENT: Generalized weakness Nausea with dry heaves Acute on chronic kidney disease Recent left nephrectomy, performed at [facility], 01/26/2025 Acute on chronic heart failure with reduced EF 10 to 15% Hyperkalemia Hyponatremia Coronary artery disease with previous CABG Ischemic cardiomyopathy History of AICD implantation History of aortic valve replacement Moderate pulmonary hypertension Moderate MR Severe TR History of recent ventricular tachycardia requiring synchronized cardioversion Hypertension Hyperlipidemia Diabetes PLAN: No need to repeat echocardiogram as this was performed earlier this month Patient has been started on IV Lasix 60 mg every 12 hours per nephrology May discontinue IV heparin as patient's VQ scan is negative for PE Resume home cardiac medications No plans for stress testing or cardiac catheterization from a cardiology perspective Further recommendations pending patient course Nurse practitioner note has been reviewed by physician. Signing provider agrees with the documented findings, assessment, and plan of care documented by [employer] as a scribe. Past Medical History Past Medical History: Asthma, Coronary Artery Disease (CAD), Chest Pain / Angina, Heart Failure, Diabetes Mellitus, GERD/Reflux, Hyperlipidemia, Hypertension, Myocardial Infarction ([place]), Osteoarthritis ([place]), Pneumonia, Renal Disease, Syncope Additional Past Medical History / Comment(s): [place] 1998, 2004, 2008, CARDIAC ARREST 2016,GOUT, SPINAL STENOSIS, BRONCHITIS, CONSTIPATION, HX OF DIZZINESS & FALLS, AORTIC STENOSIS, KIDNEY FAILURE STAGE 3-B, PACER/AICD, Fatigue, very SOB w/exertion recently. Aortic Valve Replacement Dec, 2019. 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 Date of Last Stent Placement:: UNKNOWN Type of Cardiac Device: AICD Device Placement Date:: 10-05-16 chest [place] Past Psychological History: Anxiety, Depression Additional Psychological History / Comment(s): . Smoking Status: Never smoker Past Alcohol Use History: Occasional Past Drug Use History: None Reported - Past Family History Mother Family Medical History: No Reported History Additional Family Medical History / Comment(s): . Medications and Allergies Home Medications Medication Instructions Recorded Confirmed Type Famotidine [Pepcid] 20 mg PO HS 06/20/16 02/16/25 History Montelukast [Singulair] 10 mg PO HS 06/20/16 02/16/25 History Insulin Glargine,Hum.rec.anlog 10 units SQ BID 02/21/23 02/16/25 History [Lantus Solostar Pen] Insulin Lispro [humaLOG Kwikpen] See Protocol SQ AC-TID 02/21/23 02/16/25 History Ranolazine [Ranexa] 500 mg PO BID@0800,1700 02/21/23 02/16/25 History Nystatin 100,000 Unit/gm Powd 1 applic TOPICAL BID 10/18/24 02/16/25 History [Mycostatin Powder] Acetaminophen Tab [Tylenol] 1,000 mg PO BID@0800,1700 01/05/25 02/16/25 History Acetaminophen Tab [Tylenol] 1,000 mg PO Q6HR PRN 01/05/25 02/16/25 History Nystatin 100,000Unit/gm Cream 1 applic TOPICAL BID 01/05/25 02/16/25 History [Mycostatin Cream] polyethylene glycoL 3350 [Miralax] 17 gm PO HS #30 packet 01/15/25 02/16/25 Rx FLUoxetine HCL [PROzac] 20 mg PO DAILY 01/31/25 02/16/25 History Lidocaine 5% Patch [Lidoderm 5% 1 patch TOPICAL DAILY 01/31/25 02/16/25 History Patch] Amiodarone [Cordarone] 200 mg PO DAILY 14 Days #14 tab 02/08/25 02/16/25 Rx HYDROcodone/APAP 5-325MG [[place] 1 tab PO Q6HR PRN #4 tab 02/08/25 02/16/25 Rx 5-325] Furosemide [Lasix] 40 mg PO BID@0800,1400 02/16/25 02/16/25 History Glucerna Shake 237 ml PO DAILY 02/16/25 02/16/25 History Isosorbide Mononitrate ER [Imdur] 60 mg PO BID@0800,1700 02/16/25 02/16/25 History Magnesium Hydroxide [Milk of 7,200 mg PO DAILY PRN 02/16/25 02/16/25 History Magnesia Concentrate] Metoprolol Tartrate [Lopressor] 50 mg PO BID@0800,1700 02/16/25 02/16/25 History Na Phos,M-B/Na Phos,Di-Ba [Fleet 133 ml RECTAL DAILY PRN 02/16/25 02/16/25 Hist ory Adult] Ondansetron [Zofran] 4 mg PO Q6H PRN 02/16/25 02/16/25 History Protect External Ointment 1 applic TOPICAL BID 02/16/25 02/16/25 History Spironolactone 25 mg PO DAILY 02/16/25 02/16/25 History allopurinoL [Zyloprim] 50 mg PO HS 02/16/25 02/16/25 History bisacodyL [Dulcolax] 10 mg RECTAL DAILY PRN 02/16/25 02/16/25 History hydrALAZINE HCL [Apresoline] 25 mg PO TID@0600,1400,2200 02/16/25 02/16/25 History Allergies Allergy/AdvReac Type Severity Reaction Status Date / Time amoxicillin [From Augmentin] Allergy Anaphylaxis Verified 02/16/25 08:55 /rash/hives cefprozil [From Cefzil] Allergy Anaphylaxis Verified 02/16/25 08:55 /rash/hives clavulanic acid Allergy Anaphylaxis Verified 02/16/25 08:55 [From Augmentin] /rash/hives sulfamethoxazole Allergy Anaphylaxis Verified 02/16/25 08:55 [From Bactrim] /rash/hives trimethoprim [From Bactrim] Allergy Anaphylaxis Verified 02/16/25 08:55 /rash/hives Physical Exam Vitals: Vital Signs Temp Pulse Resp BP Pulse Ox 02/16/25 05:18 98.4 F 56 L 18 109/60 98 02/16/25 00:10 61 18 151/69 98 02/15/25 19:21 97.7 F 52 L 18 146/86 100 Intake and Output 02/15/25 02/16/25 02/16/25 22:59 06:59 14:59 Other: Weight 89.811 kg 89.811 kg Results 02/15/25 21:02 02/15/25 21:02 Cardiac Enzymes 02/15/25 02/15/25 02/16/25 Range/Units 21:02 21:02 01:24 AST 33 (14-36) U/L Troponin I 0.019 0.020 (0.000-0.034) ng/mL 02/16/25 Range/Units 03:30 AST (14-36) U/L Troponin I 0.020 (0.000-0.034) ng/mL Coagulation 02/15/25 02/16/25 Range/Units 21:02 07:36 PT 11.5 (10.0-12.5) sec APTT 22.2 37.1 H (22.0-30.0) sec CBC 02/15/25 Range/Units 21:02 WBC 7.90 (4.50-10.00) 10*3/uL RBC 3.50 L (4.10-5.20) 10*6/uL Hgb 11.1 L (12.0-15.0) g/dL Hct 33.2 L (37.2-46.3) % Plt Count 305 (140-440) 10*3/uL Comprehensive Metabolic Panel 02/15/25 Range/Units 21:02 Sodium 129 L (137-145) mmol/L Potassium 5.9 H (3.5-5.1) mmol/L Chloride 93 L (98-107) mmol/L Carbon Dioxide 22 (22-30) mmol/L BUN 61 H (7-17) mg/dL Creatinine 2.69 H (0.52-1.04) mg/dL Glucose 198 H (74-99) mg/dL Calcium 10.4 H (8.4-10.2) mg/dL AST 33 (14-36) U/L ALT 72 H (4-34) U/L Alkaline Phosphatase 135 H (38-126) U/L Total Protein 6.4 (6.3-8.2) g/dL Albumin 4.1 (3.5-5.0) g/dL Current Medications Generic Name Dose Route Start Last Admin Trade Name Freq PRN Reason Stop Dose Admin Acetaminophen 650 mg 02/16/25 01:07 Acetaminophen Tab 325 Mg Tab PO Q6HR PRN Mild Pain or Fever > 100.5 Hydrocodone Bitart/Acetaminophen 1 each 02/16/25 01:48 Hydrocodone/Apap 5-325mg 1 Each Tab PO Q6HR PRN Pain Allopurinol 50 mg 02/16/25 21:00 Allopurinol 100 Mg Tab PO HS CORIE Famotidine 20 mg 02/16/25 21:00 Famotidine 20 Mg Tab PO HS CORIE Fluoxetine HCl 20 mg 02/16/25 09:00 02/16/25 10:44 Fluoxetine Hcl 20 Mg Cap PO 20 mg DAILY CORIE Administration Furosemide 60 mg 02/16/25 10:00 02/16/25 10:43 Furosemide 10 Mg/Ml 10 Ml Vial IV 60 mg Q12HR CORIE Administration Heparin Sodium (Porcine) 0 unit 02/15/25 23:10 Heparin Sodium 1,000 Un/Ml (10ml Vl) IV PER PROTOCOL PRN Low PTT Protocol Hydralazine HCl 25 mg 02/16/25 09:00 02/16/25 10:44 Hydralazine Hcl 25 Mg Tab PO 25 mg TID CORIE Administration Hydromorphone HCl 0.5 mg 02/16/25 01:07 Hydromorphone 0.5 Mg/0.5 Ml Syringe IVP Q3HR PRN Moderate Pain (Scale 4 to 6) Heparin Sodium/Sodium Chloride 250 mls @ 16.166 mls/hr 02/15/25 23:15 02/16/25 01:16 25,000 unit/ Sodium Chloride IV 18 units/kg/hr .[id number] CORIE 16.166 mls/hr Administration Protocol 18 UNITS/KG/HR Insulin Glargine 10 unit 02/16/25 09:00 Insulin Glargine (Lantus) 100 Unit/Ml Syr SQ BID [facility] Insulin Human Lispro 0 unit 02/16/25 07:30 02/16/25 10:29 Insulin Lispro (Humalog) 100 Unit/Ml 10 Ml Vl SQ Not Given ACHS [facility] Protocol Isosorbide Mononitrate 60 mg 02/16/25 09:00 02/16/25 10:44 Isosorbide Mononitrate Er 30 Mg Tab.Er.24h PO 60 mg BID CORIE Administration Lidocaine 1 patch 02/16/25 09:00 Lidocaine 4% Patch TOPICAL DAILY [facility] Metoprolol Tartrate 50 mg 02/16/25 09:00 02/16/25 10:44 Metoprolol Tartrate 50 Mg Tab PO 50 mg BID [facility] Administration Montelukast Sodium 10 mg 02/16/25 21:00 Montelukast 10 Mg Tab PO HS CORIE Morphine Sulfate 2 mg 02/16/25 01:02 Morphine Sulfate 2 Mg/Ml Syringe IVP 02/17/25 01:01 Q5M PRN Chest Pain Morphine Sulfate 4 mg 02/16/25 01:07 Morphine Sulfate 4 Mg/Ml Syringe IV Q4HR PRN Severe Pain (Scale 7 to 10) Naloxone HCl 0.2 mg 02/16/25 01:07 Naloxone 0.4 Mg/Ml 1 Ml Vial IV Q2M PRN Opioid Reversal Nitroglycerin 0.4 mg 02/16/25 01:02 Nitroglycerin Sl Tabs 0.4 Mg Tab SUBLINGUAL Q5M PRN Chest Pain Ondansetron HCl 4 mg 02/16/25 01:07 Ondansetron 4 Mg/2 Ml Vial IVP Q8HR PRN Nausea And Vomiting Polyethylene Glycol 17 gm 02/16/25 21:00 Polyethylene Glycol 3350 17 Gm Powd.Pack PO HS [facility] Ranolazine 500 mg 02/16/25 09:00 Ranolazine 500 Mg Tab.Er.12h PO BID [facility] Intake and Output 02/15/25 02/16/25 02/16/25 22:59 06:59 14:59 Other: Weight 89.811 kg 89.811 kg Patient Weight 02/17/25 06:59 Weight 89.811 kg 02/15/25 21:02 02/15/25 21:02
[2025-02-16] MEDS: RANOLAZINE 500 MG TAB.ER.12H PO SCH (11:39)
[2025-02-16] MEDS: LIDOCAINE 4% PATCH TOPICAL SCH (11:42)
[2025-02-16] MEDS: FUROSEMIDE 40 MG TAB PO SCH (11:43)
[2025-02-16 12:10] LABS: Anion Gap 17.90 mmol/L (4.00-12.00); BUN/Creat Ratio 20.81 Ratio (12.00-20.00); Blood Urea Nitrogen 56.2 mg/dL (9.0-27.0); Calcium 10.1 mg/dL (8.7-10.3); Carbon Dioxide 20.1 mmol/L (21.6-31.8); Chloride 94 mmol/L (96-109); Glucose 161 mg/dL (70-110); Potassium 5.8 mmol/L (3.5-5.5); Sodium 132 mmol/L (135-145)
[2025-02-16 12:23] LABS: Glucose,Whole Blood 139 mg/dL (70-110)
[2025-02-16 12:29] LABS: Bilirubin,Urine Negative (Negative); Blood,Urine Negative (Negative); Color,Urine Light Yellow; Glucose,Urine (UA) Negative (Negative); Ketones,Urine Negative (Negative); Leukocyte Esterase,Urine Negative (Negative); Nitrite,Urine Negative (Negative); PH, Urine 6.5 (5.0-8.0); Protein,Urine Negative (Negative); Specific Gravity,Urine 1.011 (1.001-1.035); Urobilinogen,Urine <2.0 mg/dL (<2.0)
--- NOTE | 2025-02-16 12:58 | P.HPIM ---
History of Present Illness Chief Complaint: Weakness shortness of breath History of present illness; 74-year-old female with a significant past medical history of systolic CHF w/ EF 10-15% A-fib CAD, TAVR, nephrectomy and drug- induced liver injury, presents for weakness and chest pain. She has been at [facility] for rehab since being discharged 02/08/2025. On previous hospitalization patient was admitted for suspected drug-induced developed liver injury with evidence of elevated LFTs, elevated creatinine, and diffuse +2 pitting edema in all extremities. She was admitted for diuresis as well as medication management post Drug induced liver injury. At time of discharge, LFTs and creatinine had returned to normal range. Since admission to rehab, she reports she has been progressively feeling weaker developed chest pain yesterday. She reports symptoms are similar to last admission, she reports edema and fatigue not as severe as previous admission. She denies fever chills dizziness abdominal pain changes in stool dysuria polyuria hematuria. She endorses chest pressure and worsening weakness. In the ER she got an EKG which revealed sinus bradycardia, she also received a CT abdomen and pelvis that revealed no acute changes. Chest x-ray reveals cardiomegaly mild pulmonary edema without effusion. Labs in the ER revealed Cr 2.69, BUN 61, NA 129 K5.9 alk phos 135 ALT 72 BNP 9300 troponin within normal range Additional labs in the ER WBC 7.9 Hgb 11.1 PLT 305 D-dimer 3.07 CT A scan was wanted in the ER but deferred due to kidney function, VQ ordered instead. Patient was admitted to the hospital for WENDY and acute on chronic systolic heart failure with consults to cardiology and nephrology REVIEW OF SYSTEMS: As stated above in HPI. The rest of the 14-point review of systems is negative. PHYSICAL EXAMINATION: GENERAL: The patient is alert and oriented x3, not in any acute distress. Well developed, well nourished. HEENT: Pupils are round and equally reacting to light. EOMI. No scleral icterus. No conjunctival pallor. Normocephalic, atraumatic. CARDIOVASCULAR: S1 and S2 present. No murmurs, rubs, or gallops. PULMONARY: Crackles in lower lung field bilaterally with decreased air entry bilaterally ABDOMEN: Soft, nontender, nondistended, normoactive bowel sounds. No palpable organomegaly. MUSCULOSKELETAL: No joint swelling or deformity. EXTREMITIES: +1 pitting edema in lower extremity bilaterally to midshin, upper extremity nonedematous, strength even bilaterally in all 4 extremities. NEUROLOGICAL: Gross neurological examination did not reveal any focal deficits. SKIN: No rashes. Assessment and Plan #Acute on chronic systolic heart failure (EF 10-15% per echo 02/03) #Chest pain #Hyponatremia #Hyperkalemia #Mild transaminitis #WENDY probably secondary to drug-induced liver injury #History of drug-induced liver injury #Chest pain likely secondary to CHF exacerbation Nitroglycerin as needed Start IV Lasix 60 BID - VQ scan Determined PE unlikely Start IV heparin DC if VQ scan normal -Strict I and O - Fluid Restrict to 2L, Low Sodium Diet -Daily Weight - GDMT Consulted cardiology recommendations appreciated Consulted nephrology recommendations appreciated Patient requesting transfer to a higher level of care discussed options with patient family at bedside we will continue to discuss, no plan to transfer at this point #Shortness of breath #Elevated D-dimer -5000 of heparin in the ER -VQ scan results unliely PE -DC Heparin #Hypertension Continue home medication #T2DM Basal Lantus Humalog 3 times daily with meals Sliding scale insulin #Anxiety depression Continue home medication #Pain Multimodal pain management #Gout Continue home medication DVT ppx: IV heparin GI ppx: Protonix CODE STATUS: Full code Dispo: Pending clinical course Past Medical History Past Medical History: Asthma, Coronary Artery Disease (CAD), Chest Pain / Angin a, Heart Failure, Diabetes Mellitus, GERD/Reflux, Hyperlipidemia, Hypertension, Myocardial Infarction ([place]), Osteoarthritis (OA), Pneumonia, Renal Disease, Syncope Additional Past Medical History / Comment(s): [place] 1998, 2004, 2007, CARDIAC ARREST 2016,GOUT, SPINAL STENOSIS, BRONCHITIS, CONSTIPATION, HX OF DIZZINESS & FALLS, AORTIC STENOSIS, KIDNEY FAILURE STAGE 3-B, PACER/AICD, Fatigue, very SOB w/exertion recently. Aortic Valve Replacement Dec, 2019. 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 Date of Last Stent Placement:: UNKNOWN Type of Cardiac Device: AICD Device Placement Date:: 10-05-16 lt chest [facility] Past Psychological History: Anxiety, Depression Additional Psychological History / Comment(s): . Smoking Status: Never smoker Past Alcohol Use History: Occasional Past Drug Use History: None Reported - Past Family History Mother Family Medical History: No Reported History Additional Family Medical History / Comment(s): . Medications and Allergies Home Medications Medication Instructions Recorded Confirmed Type Famotidine [Pepcid] 20 mg PO HS 06/20/16 02/16/25 History Montelukast [Singulair] 10 mg PO HS 06/20/16 02/16/25 History Insulin Glargine,Hum.rec.anlog 10 units SQ BID 02/21/23 02/16/25 History [Lantus Solostar Pen] Insulin Lispro [humaLOG Kwikpen] See Protocol SQ AC-TID 02/21/23 02/16/25 Hi story Ranolazine [Ranexa] 500 mg PO BID@0800,1700 02/21/23 02/16/25 History Nystatin 100,000 Unit/gm Powd 1 applic TOPICAL BID 10/18/24 02/16/25 History [Mycostatin Powder] Acetaminophen Tab [Tylenol] 1,000 mg PO BID@0800,1700 01/05/25 02/16/25 History Acetaminophen Tab [Tylenol] 1,000 mg PO Q6HR PRN 01/05/25 02/16/25 History Nystatin 100,000Unit/gm Cream 1 applic TOPICAL BID 01/05/25 02/16/25 History [Mycostatin Cream] polyethylene glycoL 3350 [Miralax] 17 gm PO HS #30 packet 01/15/25 02/16/25 Rx FLUoxetine HCL [PROzac] 20 mg PO DAILY 01/31/25 02/16/25 History Lidocaine 5% Patch [Lidoderm 5% 1 patch TOPICAL DAILY 01/31/25 02/16/25 History Patch] Amiodarone [Cordarone] 200 mg PO DAILY 14 Days #14 tab 02/08/25 02/16/25 Rx HYDROcodone/APAP 5-325MG [[place] 1 tab PO Q6HR PRN #4 tab 02/08/25 02/16/25 Rx 5-325] Furosemide [Lasix] 40 mg PO BID@0800,1400 02/16/25 02/16/25 History Glucerna Shake 237 ml PO DAILY 02/16/25 02/16/25 History Isosorbide Mononitrate ER [Imdur] 60 mg PO BID@0800,1700 02/16/25 02/16/25 History Magnesium Hydroxide [Milk of 7,200 mg PO DAILY PRN 02/16/25 02/16/25 History Magnesia Concentrate] Metoprolol Tartrate [Lopressor] 50 mg PO BID@0800,1700 02/16/25 02/16/25 History Na Phos,M-B/Na Phos,Di-Ba [Fleet 133 ml RECTAL DAILY PRN 02/16/25 02/16/25 History Adult] Ondansetron [Zofran] 4 mg PO Q6H PRN 02/16/25 02/16/25 History Protect External Ointment 1 applic TOPICAL BID 02/16/25 02/16/25 History Spironolactone 25 mg PO DAILY 02/16/25 02/16/25 History allopurinoL [Zyloprim] 50 mg PO HS 02/16/25 02/16/25 History bisacodyL [Dulcolax] 10 mg RECTAL DAILY PRN 02/16/25 02/16/25 History hydrALAZINE HCL [Apresoline] 25 mg PO TID@0600,1400,2200 02/16/25 02/16/25 History Allergies Allergy/AdvReac Type Severity Reaction Status Date / Time amoxicillin [From Augmentin] Allergy Anaphylaxis Verified 02/16/25 08:55 /rash/hives cefprozil [From Cefzil] Allergy Anaphylaxis Verified 02/16/25 08:55 /rash/hives clavulanic acid Allergy Anaphylaxis Verified 02/16/25 08:55 [From Augmentin] /rash/hives sulfamethoxazole Allergy Anaphylaxis Verified 02/16/25 08:55 [From Bactrim] /rash/hives trimethoprim [From Bactrim] Allergy Anaphylaxis Verified 02/16/25 08:55 /rash/hives Physical Exam Vitals: Vital Signs Temp Pulse Resp BP Pulse Ox 02/16/25 05:18 98.4 F 56 L 18 109/60 98 02/16/25 00:10 61 18 151/69 98 02/15/25 19:21 97.7 F 52 L 18 146/86 100 Intake and Output 02/15/25 02/16/25 02/16/25 22:59 06:59 14:59 Other: Weight 89.811 kg 89.811 kg Results CBC & Chem 7: 02/15/25 21:02 02/16/25 07:36 Labs: Abnormal Lab Results - Last 24 Hours (Table) 02/15/25 02/15/25 02/15/25 Range/Units 21:02 21:02 21:02 RBC 3.50 L (4.10-5.20) 10*6/uL Hgb 11.1 L (12.0-15.0) g/dL Hct 33.2 L (37.2-46.3) % Eosinophils # 0.02 L (0.04-0.35) 10*3/uL APTT (22.0-30.0) sec D-Dimer 3.07 H (<0.60) mg/L FEU Sodium 129 L (137-145) mmol/L Potassium 5.9 H (3.5-5.1) mmol/L Chloride 93 L (98-107) mmol/L BUN 61 H (7-17) mg/dL Creatinine 2.69 H (0.52-1.04) mg/dL Glucose 198 H (74-99) mg/dL Calcium 10.4 H (8.4-10.2) mg/dL Magnesium 3.0 H (1.6-2.3) mg/dL ALT 72 H (4-34) U/L Alkaline Phosphatase 135 H (38-126) U/L 02/16/25 Range/Units 07:36 RBC (4.10-5.20) 10*6/uL Hgb (12.0-15.0) g/dL Hct (37.2-46.3) % Eosinophils # (0.04-0.35) 10*3/uL APTT 37.1 H (22.0-30.0) sec D-Dimer (<0.60) mg/L FEU Sodium (137-145) mmol/L Potassium (3.5-5.1) mmol/L Chloride (98-107) mmol/L BUN (7-17) mg/dL Creatinine (0.52-1.04) mg/dL Glucose (74-99) mg/dL Calcium (8.4-10.2) mg/dL Magnesium (1.6-2.3) mg/dL ALT (4-34) U/L Alkaline Phosphatase (38-126) U/L
[2025-02-16 19:00] LABS: Glucose,Whole Blood 101 mg/dL (70-110)
[2025-02-16] MEDS ORDERED: FAMOTIDINE 20 MG TAB PO SCH (21:00)
[2025-02-16 21:13] LABS: Glucose,Whole Blood 120 mg/dL (70-110)
[2025-02-16] MEDS: FAMOTIDINE 20 MG TAB PO SCH (21:23)
[2025-02-16] MEDS: MONTELUKAST 10 MG TAB PO SCH (21:24)
[2025-02-17] MEDS: ONDANSETRON 4 MG/2 ML VIAL IVP PRN (00:42)
[2025-02-17 06:31] LABS: Glucose,Whole Blood 112 mg/dL (70-110)
[2025-02-17 07:42] LABS: Basophils # (A) 0.06 10*3/uL (0.00-0.10); Basophils % (A) 1.0 %; Eosinophils # (A) 0.13 10*3/uL (0.04-0.35); Eosinophils % (A) 2.2 %; HCT 32.7 % (37.2-46.3); HGB 10.3 g/dL (12.0-15.0); Lymphocytes # (A) 0.97 10*3/uL (0.90-5.00); Lymphocytes % (A) 16.2 %; MCH 31.0 pg (27.0-32.0); MCHC 31.5 g/dL (32.0-37.0); MCV 98.5 fL (80.0-97.0); Monocytes # (A) 0.48 10*3/uL (0.20-1.00); Monocytes % (A) 8.0 %; Neutrophils # (A) 4.33 10*3/uL (1.80-7.70); Neutrophils % (A) 72.3 %; Platelet Count 213 10*3/uL (140-440); RBC 3.32 10*6/uL (4.10-5.20); RDW 18.4 % (11.5-14.5); WBC 5.99 10*3/uL (4.50-10.00)
[2025-02-17 07:50] LABS: ALT 62 U/L (4-34); AST 38 U/L (14-36); African American GFR (CKD) 21 (>60 ml/min/1.73 sqM); Albumin 3.8 g/dL (3.5-5.0); Alkaline Phosphatase 112 U/L (38-126); Anion Gap 13 mmol/L; Blood Urea Nitrogen 58 mg/dL (7-17); Calcium 10.1 mg/dL (8.4-10.2); Carbon Dioxide 22 mmol/L (22-30); Chloride 98 mmol/L (98-107); Glucose 121 mg/dL (74-99); Magnesium 2.7 mg/dL (1.6-2.3); Non-African American GFR(CKD) 19 (>60 ml/min/1.73 sqM); Potassium 4.3 mmol/L (3.5-5.1); Sodium 133 mmol/L (137-145); Total Protein 6.0 g/dL (6.3-8.2)
[2025-02-17 11:38] LABS: Glucose,Whole Blood 146 mg/dL (70-110)
--- NOTE | 2025-02-17 12:41 | P.PN ---
Subjective HISTORY OF PRESENT ILLNESS: This is a 74-year-old female with a past medical history significant for aortic valve replacement, chronic kidney disease, recent nephrectomy, coronary artery disease with previous CABG, hypertension, hyperlipidemia, diabetes and cardiomyopathy with ICD implantation. Patient follows in the office with Dr. Christine. We have been asked to see the patient in consultation for chest pain. Patient examined at the bedside in the emergency room. Patient gives history that she had a nephrectomy performed on 01/26/2025 at [facility] in [place] due to a nonfunctioning kidney. She states that her surgery went well and she was discharged home. She was admitted to the hospital at the end of January at this facility. Patient did have an episode of ventricular tachycardia and required cardioversion. She reported back to the hospital with multiple symptoms including generalized weakness, fatigue, nausea, dry heaving, dizziness, lightheadedness, shortness of breath, and chest discomfort. Patient was found to have elevated D-dimer. She was started on IV heparin. She underwent VQ scan this morning revealing low probability for pulmonary embolism. DIAGNOSTICS: - EKG reveals mechanism with low voltage QRS. - Chest xray cardiomegaly without acute cardiopulmonary process. - Laboratory data: WBC 7.9. Hemoglobin 11.1. Platelet count 305. WBC 7.9. Hemoglobin 11.1. Platelet count 305. Sodium 129. Potassium 5.9. BUN 61. Creatinine 2.69. Troponin negative x 3. proBNP 9300. - Current home cardiac medications include Ranexa 500 mg twice a day, hydralazine 25 mg 3 times daily, metoprolol tartrate 50 mg twice a day, Imdur 60 mg twice a day, Lasix 40 mg twice a day, Aldactone 25 mg daily, amiodarone 200 mg daily. - Most recent echocardiogram obtained in 02/03/2025 revealing ejection fraction 10 to 15%, moderate pulm hypertension, bioprosthetic aortic valve with mild aortic stenosis, moderate MR, severe TR - Cardiac catheterization history: October 2019 revealing severe triple-vessel CAD with chronically occluded LAD, first obtuse marginal branch, and critical stenosis in distal right RCA with no progression of disease compared to 2016. Patent ADAM to LAD. Patent SVG to RCA. Medical management was recommended. 02/17/2025 Patient examined this morning at the bedside. Patient looking better today. Patient also states she is feeling better today. She denies any chest pain or pressure. She denies any shortness of breath. She continues to report some nausea this morning. Vital signs are stable. PHYSICAL EXAM: VITAL SIGNS: Reviewed. GENERAL: Well-developed in no acute distress. HEENT: Head is normocephalic. Pupils are equal, round. Sclerae anicteric. Mucous membranes of the mouth are moist. Neck supple. No JVD or thyromegaly LUNGS: Respirations even and unlabored. Lungs essentially clear to auscultation bilaterally. HEART: Regular rate and rhythm. S1 and S2 heard. ABDOMEN: Soft. Nondistended. Nontender. EXTREMITIES: Normal range of motion. No clubbing or cyanosis. Peripheral pulses intact. No lower extremity edema NEUROLOGIC: Awake and alert. Oriented x 3. ASSESSMENT: Generalized weakness Nausea with dry heaves Acute on chronic kidney disease Recent left nephrectomy, performed at [facility], 01/26/2025 Acute on chronic heart failure with reduced EF 10 to 15% Hyperkalemia Hyponatremia Coronary artery disease with previous CABG Ischemic cardiomyopathy History of AICD implantation History of aortic valve replacement Moderate pulmonary hypertension Moderate MR Severe TR History of recent ventricular tachycardia requiring synchronized cardioversion Hypertension Hyperlipidemia Diabetes PLAN: No need to repeat echocardiogram as this was performed earlier this month Continue IV Lasix per nephrology Decrease metoprolol to 25 mg twice a day secondary to bradycardia Continue additional cardiac medications No plans for stress testing or cardiac catheterization from a cardiology perspective Further recommendations pending patient course Nurse practitioner note has been reviewed by physician. Signing provider agrees with the documented findings, assessment, and plan of care documented by HAMMER [employer]IVER as a scribe. Objective - Vital Signs Vital signs: Vital Signs Temp 97.9 F 02/17/25 07:00 Pulse 50 L 02/17/25 07:00 Resp 16 02/17/25 07:00 BP 146/76 02/17/25 07:00 Pulse Ox 96 02/17/25 07:00 FiO2 Intake & Output 02/16/25 02/17/25 02/17/25 18:59 06:59 18:59 Intake Total 163.277 225 Output Total 500 950 Balance -336.723 -950 225 Weight 89.811 kg Intake: Intake, IV Titration 163.277 Amount Heparin Sod,Pork in 0.45% 163.277 NaCl 25,000 unit In 0.45 % NaCl 1 250ml.bag @ 18 UNITS/KG/HR 16.166 mls/hr IV .[id number] [facility] Rx#: [id number] Oral 225 Output: Urine 500 950 Other: Voiding Method External Catheter # Voids 2 - Labs CBC & Chem 7: 02/17/25 07:14 02/17/25 07:14 Labs: Abnormal Lab Results - Last 24 Hours (Table) 02/16/25 02/17/25 02/17/25 Range/Units 21:12 06:30 07:14 RBC (4.10-5.20) 10*6/uL Hgb (12.0-15.0) g/dL Hct (37.2-46.3) % MCV (80.0-97.0) fL MCHC (32.0-37.0) g/dL Sodium 133 L (137-145) mmol/L BUN 58 H (7-17) mg/dL Creatinine 2.50 H (0.52-1.04) mg/dL Glucose 121 H (74-99) mg/dL POC Glucose (mg/dL) 120 H 112 H (70-110) mg/dL Magnesium 2.7 H (1.6-2.3) mg/dL AST 38 H (14-36) U/L ALT 62 H (4-34) U/L Total Protein 6.0 L (6.3-8.2) g/dL 02/17/25 02/17/25 Range/Units 07:14 11:37 RBC 3.32 L (4.10-5.20) 10*6/uL Hgb 10.3 L (12.0-15.0) g/dL Hct 32.7 L (37.2-46.3) % MCV 98.5 H (80.0-97.0) fL MCHC 31.5 L (32.0-37.0) g/dL Sodium (137-145) mmol/L BUN (7-17) mg/dL Creatinine (0.52-1.04) mg/dL Glucose (74-99) mg/dL POC Glucose (mg/dL) 146 H (70-110) mg/dL Magnesium (1.6-2.3) mg/dL AST (14-36) U/L ALT (4-34) U/L Total Protein (6.3-8.2) g/dL
[2025-02-17] MEDS: DAPAGLIFLOZIN PROPANEDIOL 5 MG TABLET PO SCH (13:05)
--- NOTE | 2025-02-17 14:14 | P.PN ---
Subjective History of present illness; 74-year-old female with a significant past medical history of systolic CHF w/ EF 10-15% A-fib CAD, TAVR, nephrectomy and drug- induced liver injury, presents for weakness and chest pain. She has been at [facility] for rehab since being discharged 02/08/2025. On previous hospitalization patient was admitted for suspected drug-induced developed liver injury with evidence of elevated LFTs, elevated creatinine, and diffuse +2 pitting edema in all extremities. She was admitted for diuresis as well as medication management post Drug induced liver injury. At time of discharge, LFTs and creatinine had returned to normal range. Since admission to rehab, she reports she has been progressively feeling weaker developed chest pain yesterday. She reports symptoms are similar to last admission, she reports edema and fatigue not as severe as previous admission. She denies fever chills dizziness abdominal pain changes in stool dysuria polyuria hematuria. She endorses chest pressure and worsening weakness. In the ER she got an EKG which revealed sinus bradycardia, she also received a CT abdomen and pelvis that revealed no acute changes. Chest x-ray reveals cardiomegaly mild pulmonary edema without effusion. Labs in the ER revealed Cr 2.69, BUN 61, NA 129 K5.9 alk phos 135 ALT 72 BNP 9300 troponin within normal ra nge CT A scan was wanted in the ER due to elevated D-dimer (3.07) but deferred due to kidney function, VQ ordered instead. Returned negative Patient was admitted to the hospital for WENDY and acute on chronic systolic heart failure with consults to cardiology and nephrology 02/17/2025 patient seen at bedside she is still weak however breathing easier. REVIEW OF SYSTEMS: As stated above in HPI. The rest of the 14-point review of systems is negative. PHYSICAL EXAMINATION: GENERAL: The patient is alert and oriented x3, not in any acute distress. Well developed, well nourished. HEENT: Pupils are round and equally reacting to light. EOMI. No scleral icterus. No conjunctival pallor. Normocephalic, atraumatic. CARDIOVASCULAR: S1 and S2 present. No murmurs, rubs, or gallops. PULMONARY: Crackles in lower lung field bilaterally with decreased air entry bilaterally ABDOMEN: Soft, nontender, nondistended, normoactive bowel sounds. No palpable organomegaly. MUSCULOSKELETAL: No joint swelling or deformity. EXTREMITIES: +1 pitting edema in lower extremity bilaterally to midshin, upper extremity nonedematous, strength even bilaterally in all 4 extremities. NEUROLOGICAL: Gross neurological examination did not reveal any focal deficits. SKIN: No rashes. Assessment and Plan #Acute on chronic systolic heart failure (EF 10-15% per echo 02/03) #Chest pain # Improving hyponatremia/Hyperkalemia secondary to polypharmacy #WENDY probably secondary to polypharmacy #History of drug-induced liver injury #Chest pain likely secondary to CHF exacerbation #Sustained Bradycardia -DC metoprolol Nitroglycerin as needed Continue IV Lasix - VQ scan Determined PE unlikely -Strict I and O - Fluid Restrict to 2L, Low Sodium Diet -Daily Weight - GDMT Consulted cardiology recommendations appreciated Consulted nephrology recommendations appreciated Patient requesting transfer to a higher level of care discussed options with patient family at bedside we will continue to discuss, no plan to transfer at this point #Shortness of breath #Elevated D-dimer -5000 of heparin in the ER -VQ scan results unliely PE -DC Heparin #Hypertension Continue home medication #T2DM Basal Lantus Humalog 3 times daily with meals Sliding scale insulin #Anxiety depression Continue home medication #Pain Multimodal pain management #Gout Continue home medication DVT ppx: IV heparin GI ppx: Protonix CODE STATUS: Full code Dispo: Pending clinical course Objective - Vital Signs Vital signs: Vital Signs Temp 97.9 F 02/17/25 02:00 Pulse 70 02/17/25 02:00 Resp 16 02/16/25 15:00 BP 122/72 02/17/25 02:00 Pulse Ox 92 L 02/17/25 02:00 FiO2 Intake & Output 02/16/25 02/17/25 02/17/25 18:59 06:59 18:59 Intake Total 163.277 Output Total 500 950 Balance -336.723 -950 Weight 89.811 kg Intake: Intake, IV Titration 163.277 Amount Heparin Sod,Pork in 0.45% 163.277 NaCl 25,000 unit In 0.45 % NaCl 1 250ml.bag @ 18 UNITS/KG/HR 16.166 mls/hr IV .[id number] [facility] Rx#: [id number] Output: Urine 500 950 Other: Voiding Method External Catheter # Voids 2 - Labs CBC & Chem 7: 02/17/25 07:14 07/16/25 07:14 Labs: Abnormal Lab Results - Last 24 Hours (Table) 02/16/25 02/16/25 02/16/25 Range/Units 07:36 10:26 12:22 RBC (4.10-5.20) 10*6/uL Hgb (12.0-15.0) g/dL Hct (37.2-46.3) % MCV (80.0-97.0) fL MCHC (32.0-37.0) g/dL Sodium 132 L (135-145) mmol/L Potassium 5.8 H (3.5-5.5) mmol/L Chloride 94 L (96-109) mmol/L Carbon Dioxide 20.1 L (21.6-31.8) mmol/L Anion Gap 17.90 H (4.00-12.00) mmol/L BUN 56.2 H (9.0-27.0) mg/dL Creatinine 2.7 H (0.6-1.5) mg/dL Est GFR (CKD-EPI) 18 L (>=60) BUN/Creatinine Ratio 20.81 H (12.00-20.00) Ratio Glucose 161 H (70-110) mg/dL POC Glucose (mg/dL) 158 H 139 H (70-110) mg/dL Magnesium (1.6-2.3) mg/dL AST (14-36) U/L ALT (4-34) U/L Total Protein (6.3-8.2) g/dL 02/16/25 02/17/25 02/17/25 Range/Units 21:12 06:30 07:14 RBC (4.10-5.20) 10*6/uL Hgb (12.0-15.0) g/dL Hct (37.2-46.3) % MCV (80.0-97.0) fL MCHC (32.0-37.0) g/dL Sodium 133 L (135-145) mmol/L Potassium (3.5-5.5) mmol/L Chloride (96-109) mmol/L Carbon Dioxide (21.6-31.8) mmol/L Anion Gap (4.00-12.00) mmol/L BUN 58 H (9.0-27.0) mg/dL Creatinine 2.50 H (0.6-1.5) mg/dL Est GFR (CKD-EPI) (>=60) BUN/Creatinine Ratio (12.00-20.00) Ratio Glucose 121 H (70-110) mg/dL POC Glucose (mg/dL) 120 H 112 H (70-110) mg/dL Magnesium 2.7 H (1.6-2.3) mg/dL AST 38 H (14-36) U/L ALT 62 H (4-34) U/L Total Protein 6.0 L (6.3-8.2) g/dL / Range/Units 07:14 RBC 3.32 L (4.10-5.20) 10*6/uL Hgb 10.3 L (12.0-15.0) g/dL Hct 32.7 L (37.2-46.3) % MCV 98.5 H (80.0-97.0) fL MCHC 31.5 L (32.0-37.0) g/dL Sodium (135-145) mmol/L Potassium (3.5-5.5) mmol/L Chloride (96-109) mmol/L Carbon Dioxide (21.6-31.8) mmol/L Anion Gap (4.00-12.00) mmol/L BUN (9.0-27.0) mg/dL Creatinine (0.6-1.5) mg/dL Est GFR (CKD-EPI) (>=60) BUN/Creatinine Ratio (12.00-20.00) Ratio Glucose (70-110) mg/dL POC Glucose (mg/dL) (70-110) mg/dL Magnesium (1.6-2.3) mg/dL AST (14-36) U/L ALT (4-34) U/L Total Protein (6.3-8.2) g/dL
[2025-02-17 16:35] LABS: Glucose,Whole Blood 289 mg/dL (70-110)
--- NOTE | 2025-02-17 17:33 | P.PN ---
Subjective patient is seen at bedside. complains of dizziness, nausea. Urinated twice this morning, doesn't have an appetite for breakfast. she denies chest pain, SOB and Abdominal or flank pain. Objective - Vital Signs Vital signs: Vital Signs Temp 97.9 F 02/17/25 02:00 Pulse 70 02/17/25 02:00 Resp 16 02/16/25 15:00 BP 122/72 02/17/25 02:00 Pulse Ox 92 L 02/17/25 02:00 FiO2 Intake & Output 02/16/25 02/17/25 02/17/25 18:59 06:59 18:59 Intake Total 163.277 Output Total 500 950 Balance -336.723 -950 Weight 89.811 kg Intake: Intake, IV Titration 163.277 Amount Heparin Sod,Pork in 0.45% 163.277 NaCl 25,000 unit In 0.45 % NaCl 1 250ml.bag @ 18 UNITS/KG/HR 16.166 mls/hr IV .[id number] [facility] Rx#: [id number] Output: Urine 500 950 Other: Voiding Method External Catheter # Voids 2 - Exam Vital signs shows bradycardia (50bpm) BB was held. General: No acute distress. HEENT: Head exam is unremarkable. On room air. LUNGS: No audible rhonchi or wheezes. HEART: Rate and Rhythm are regular. ABDOMEN: Obese, nontender. EXTREMITITES: 2+ edema up to knee. - Labs CBC & Chem 7: 02/17/25 07:14 02/17/25 07:14 Labs: Abnormal Lab Results - Last 24 Hours (Table) 02/16/25 02/16/25 02/16/25 Range/Units 07:36 10:26 12:22 RBC (4.10-5.20) 10*6/uL Hgb (12.0-15.0) g/dL Hct (37.2-46.3) % MCV (80.0-97.0) fL MCHC (32.0-37.0) g/dL Sodium 132 L (135-145) mmol/L Potassium 5.8 H (3.5-5.5) mmol/L Chloride 94 L (96-109) mmol/L Carbon Dioxide 20.1 L (21.6-31.8) mmol/L Anion Gap 17.90 H (4.00-12.00) mmol/L BUN 56.2 H (9.0-27.0) mg/dL Creatinine 2.7 H (0.6-1.5) mg/dL Est GFR (CKD-EPI) 18 L (>=60) BUN/Creatinine Ratio 20.81 H (12.00-20.00) Ratio Glucose 161 H (70-110) mg/dL POC Glucose (mg/dL) 158 H 139 H (70-110) mg/dL Magnesium (1.6-2.3) mg/dL AST (14-36) U/L ALT (4-34) U/L Total Protein (6.3-8.2) g/dL 02/16/25 02/17/25 02/17/25 Range/Units 21:12 06:30 07:14 RBC (4.10-5.20) 10*6/uL Hgb (12.0-15.0) g/dL Hct (37.2-46.3) % MCV (80.0-97.0) fL MCHC (32.0-37.0) g/dL Sodium 133 L (135-145) mmol/L Potassium (3.5-5.5) mmol/L Chloride (96-109) mmol/L Carbon Dioxide (21.6-31.8) mmol/L Anion Gap (4.00-12.00) mmol/L BUN 58 H (9.0-27.0) mg/dL Creatinine 2.50 H (0.6-1.5) mg/dL Est GFR (CKD-EPI) (>=60) BUN/Creatinine Ratio (12.00-20.00) Ratio Glucose 121 H (70-110) mg/dL POC Glucose (mg/dL) 120 H 112 H (70-110) mg/dL Magnesium 2.7 H (1.6-2.3) mg/dL AST 38 H (14-36) U/L ALT 62 H (4-34) U/L Total Protein 6.0 L (6.3-8.2) g/dL 02/17/25 Range/Units 07:14 RBC 3.32 L (4.10-5.20) 10*6/uL Hgb 10.3 L (12.0-15.0) g/dL Hct 32.7 L (37.2-46.3) % MCV 98.5 H (80.0-97.0) fL MCHC 31.5 L (32.0-37.0) g/dL Sodium (135-145) mmol/L Potassium (3.5-5.5) mmol/L Chloride (96-109) mmol/L Carbon Dioxide (21.6-31.8) mmol/L Anion Gap (4.00-12.00) mmol/L BUN (9.0-27.0) mg/dL Creatinine (0.6-1.5) mg/dL Est GFR (CKD-EPI) (>=60) BUN/Creatinine Ratio (12.00-20.00) Ratio Glucose (70-110) mg/dL POC Glucose (mg/dL) (70-110) mg/dL Magnesium (1.6-2.3) mg/dL AST (14-36) U/L ALT (4-34) U/L Total Protein (6.3-8.2) g/dL Assessment and Plan Plan: Assessment: 1. Acute kidney injury secondary to ATN secondary to cardiorenal syndrome. Cr eatinine 2.16 on admission, today is 2.50 trending down. 2. Chronic kidney disease stage IV with baseline creatinine 1.7-2 secondary to solitary right kidney. 3. Volume overload, on IV Lasix 60 mg twice daily, +1 edema bilateral LE to chaves. 4. Hyperkalemia secondary to acute kidney injury, 0n Aldactone, Today's K is 4.3 5. Hyponatremia 133 today. Plan: continue IV Lasix 60 mg twice daily. Add Farxiga 5 mg once daily Added one dose of Metolazone 5 mg today. continue on low-salt diet and 1500 cc fluid restriction. Strict I's and O's. Repeat BMP am Avoid nephrotoxins. Continue to monitor renal function and urine output. I have seen and examined the patient with resident and agree with A&P as written.
[2025-02-17] MEDS: METOPROLOL TARTRATE 25 MG TAB PO SCH (20:20)
[2025-02-17 20:32] LABS: Glucose,Whole Blood 301 mg/dL (70-110)
[2025-02-18 00:21] LABS: Glucose,Whole Blood 232 mg/dL (70-110)
[2025-02-18 04:04] LABS: Basophils # (A) 0.06 10*3/uL (0.00-0.10); Basophils % (A) 0.4 %; Eosinophils # (A) 0.01 10*3/uL (0.04-0.35); Eosinophils % (A) 0.1 %; HCT 30.5 % (37.2-46.3); HGB 10.2 g/dL (12.0-15.0); Lymphocytes # (A) 0.29 10*3/uL (0.90-5.00); Lymphocytes % (A) 1.8 %; MCH 31.2 pg (27.0-32.0); MCHC 33.4 g/dL (32.0-37.0); Monocytes # (A) 0.83 10*3/uL (0.20-1.00); Monocytes % (A) 5.1 %; Neutrophils # (A) 14.92 10*3/uL (1.80-7.70); Neutrophils % (A) 91.8 %; Platelet Count 210 10*3/uL (140-440); RBC 3.27 10*6/uL (4.10-5.20); RDW 17.2 % (11.5-14.5); WBC 16.24 10*3/uL (4.50-10.00)
[2025-02-18 04:17] LABS: ALT 60 U/L (4-34); AST 40 U/L (14-36); African American GFR (CKD) 18 (>60 ml/min/1.73 sqM); Albumin 3.7 g/dL (3.5-5.0); Alkaline Phosphatase 116 U/L (38-126); Anion Gap 13 mmol/L; Blood Urea Nitrogen 63 mg/dL (7-17); Calcium 10.3 mg/dL (8.4-10.2); Carbon Dioxide 26 mmol/L (22-30); Chloride 91 mmol/L (98-107); Glucose 127 mg/dL (74-99); Non-African American GFR(CKD) 16 (>60 ml/min/1.73 sqM); Potassium 3.5 mmol/L (3.5-5.1); Sodium 130 mmol/L (137-145); Total Protein 6.1 g/dL (6.3-8.2)
[2025-02-18 04:23] LABS: MCV 93.3 fL (80.0-97.0)
[2025-02-18 06:22] LABS: Glucose,Whole Blood 136 mg/dL (70-110)
[2025-02-18] MEDS: POTASSIUM CHLORIDE ER 20 MEQ TAB.ER PO STA (09:53)
[2025-02-18] MEDS: HEPARIN SODIUM,PORCINE 5,000 UNIT/ML 1 ML VIAL SQ SCH (09:53)
[2025-02-18] MEDS: METOPROLOL TARTRATE 25 MG TAB PO SCH (09:54)
[2025-02-18] MEDS: AMIODARONE 200 MG TAB PO SCH (09:54)
[2025-02-18] MEDS: HYDROcodone/APAP 5-325MG 1 EACH TAB PO PRN (09:54)
--- NOTE | 2025-02-18 10:01 | P.PN ---
Subjective Progress Note Date: 02/18/25 HISTORY OF PRESENT ILLNESS: This is a 74-year-old female with a past medical history significant for aortic valve replacement, chronic kidney disease, recent nephrectomy, coronary artery disease with previous CABG, hypertension, hyperlipidemia, diabetes and cardiomyopathy with ICD implantation. Patient follows in the office with Dr. Christine. We have been asked to see the patient in consultation for chest pain. Patient examined at the bedside in the emergency room. Patient gives history that she had a nephrectomy performed on 01/26/2025 at [facility] in [place] due to a nonfunctioning kidney. She states that her surgery went well and she was discharged home. She was admitted to the hospital at the end of January at this facility. Patient did have an episode of ventricular tachycardia and required cardioversion. She reported back to the hospital with multiple symptoms including generalized weakness, fatigue, nausea, dry heaving, dizziness, lightheadedness, shortness of breath, and chest discomfort. Patient was found to have elevated D-dimer. She was started on IV heparin. She underwent VQ scan this morning revealing low probability for pulmonary embolism. DIAGNOSTICS: - EKG reveals mechanism with low voltage QRS. - Chest xray cardiomegaly without acute cardiopulmonary process. - Laboratory data: WBC 7.9. Hemoglobin 11.1. Platelet count 305. WBC 7.9. Hemoglobin 11.1. Platelet count 305. Sodium 129. Potassium 5.9. BUN 61. Creatinine 2.69. Troponin negative x 3. proBNP 9300. - Current home cardiac medications include Ranexa 500 mg twice a day, hydralazine 25 mg 3 times daily, metoprolol tartrate 50 mg twice a day, Imdur 60 mg twice a day, Lasix 40 mg twice a day, Aldactone 25 mg daily, amiodarone 200 mg daily. - Most recent echocardiogram obtained in 02/03/2025 revealing ejection fraction 10 to 15%, moderate pulm hypertension, bioprosthetic aortic valve with mild aortic stenosis, moderate MR, severe TR - Cardiac catheterization history: October 2019 revealing severe triple-vessel CAD with chronically occluded LAD, first obtuse marginal branch, and critical stenos is in distal right RCA with no progression of disease compared to 2016. Patent ADAM to LAD. Patent SVG to RCA. Medical management was recommended. 02/17/2025 Patient examined this morning at the bedside. Patient looking better today. Patient also states she is feeling better today. She denies any chest pain or pressure. She denies any shortness of breath. She continues to report some nausea this morning. Vital signs are stable. 02/18/2025 Patient seen and examined. She went into A-fib with RVR was transferred to the cardiac stepdown unit. She remains in A-fib right now running about 100. Patient states that she is feeling lousy and tired. She denies palpitations, no syncope. She has been on Lopressor 25 mg twice daily and did have previous bradycardia. Blood pressure 124/74, pulse ox 99% on 2 L nasal cannula. Repeat blood work reveals sodium 130, BUN 63 creatinine 2.89, hemoglobin 10.2, WBC 16.2. AST is 40, ALT 60. PHYSICAL EXAM: VITAL SIGNS: Reviewed. GENERAL: Well-developed in no acute distress. HEENT: Head is normocephalic. Pupils are equal, round. Sclerae anicteric. Mucous membranes of the mouth are moist. Neck supple. No JVD or thyromegaly LUNGS: Respirations even and unlabored. Lungs essentially clear to auscultation bilaterally. HEART: Regular rate and rhythm. S1 and S2 heard. ABDOMEN: Soft. Nondistended. Nontender. EXTREMITIES: Normal range of motion. No clubbing or cyanosis. Peripheral pulses intact. No lower extremity edema NEUROLOGIC: Awake and alert. Oriented x 3. ASSESSMENT: Generalized weakness Nausea with dry heaves Acute kidney injury and chronic kidney disease Recent left nephrectomy, performed at [facility], 01/26/2025 Acute on chronic heart failure with reduced EF 10 to 15% Hyperkalemia Hyponatremia Coronary artery disease with previous CABG Ischemic cardiomyopathy History of AICD implantation History of aortic valve replacement Moderate pulmonary hypertension Moderate MR Severe TR History of recent ventricular tachycardia requiring synchronized cardioversion Hypertension Hyperlipidemia Diabetes Paroxysmal atrial fibrillation with RVR PLAN: No need to repeat echocardiogram as this was performed earlier this month Continue IV Lasix per nephrology Increase frequency of metoprolol 25 mg to 3 times daily, careful titration secondary to bradycardia Add amiodarone 400 mg twice daily Decrease hydralazine to 25 mg twice daily Start patient on Eliquis 2.5 mg daily Repeat BMP in the morning Continue additional cardiac medications No plans for stress testing or cardiac catheterization from a cardiology perspective Further recommendations pending patient course Nurse practitioner note has been reviewed by physician. Signing provider agrees with the documented findings, assessment, and plan of care documented by [employer] as a scribe. Objective - Vital Signs Vital signs: Vital Signs Temp 98.3 F 02/18/25 05:05 Pulse 109 H 02/18/25 05:05 Resp 16 02/18/25 05:05 BP 124/74 02/18/25 05:05 Pulse Ox 99 02/18/25 05:05 FiO2 Intake & Output 02/17/25 02/18/25 02/18/25 18:59 06:59 18:59 Intake Total 425 Output Total 800 900 Balance -375 -900 Intake: Oral 425 Output: Urine 800 900 Other: Voiding Method Toilet External Catheter - Labs CBC & Chem 7: 02/18/25 03:46 02/18/25 03:41 Labs: Abnormal Lab Results - Last 24 Hours (Table) 02/17/25 02/17/25 02/17/25 Range/Units 11:37 16:34 20:29 WBC (4.50-10.00) 10*3/uL RBC (4.10-5.20) 10*6/uL Hgb (12.0-15.0) g/dL Hct (37.2-46.3) % Immature Gran # (0.00-0.04) 10*3/uL Neutrophils # (1.80-7.70) 10*3/uL Lymphocytes # (0.90-5.00) 10*3/uL Eosinophils # (0.04-0.35) 10*3/uL Sodium (137-145) mmol/L Chloride (98-107) mmol/L BUN (7-17) mg/dL Creatinine (0.52-1.04) mg/dL Glucose (74-99) mg/dL POC Glucose (mg/dL) 146 H 289 H 301 H (70-110) mg/dL Calcium (8.4-10.2) mg/dL AST (14-36) U/L ALT (4-34) U/L Total Protein (6.3-8.2) g/dL 02/18/25 02/18/25 02/18/25 Range/Units 00:19 03:41 03:46 WBC 16.24 H (4.50-10.00) 10*3/uL RBC 3.27 L (4.10-5.20) 10*6/uL Hgb 10.2 L (12.0-15.0) g/dL Hct 30.5 L (37.2-46.3) % Immature Gran # 0.13 H (0.00-0.04) 10*3/uL Neutrophils # 14.92 H (1.80-7.70) 10*3/uL Lymphocytes # 0.29 L (0.90-5.00) 10*3/uL Eosinophils # 0.01 L (0.04-0.35) 10*3/uL Sodium 130 L (137-145) mmol/L Chloride 91 L (98-107) mmol/L BUN 63 H (7-17) mg/dL Creatinine 2.89 H (0.52-1.04) mg/dL Glucose 127 H (74-99) mg/dL POC Glucose (mg/dL) 232 H (70-110) mg/dL Calcium 10.3 H (8.4-10.2) mg/dL AST 40 H (14-36) U/L ALT 60 H (4-34) U/L Total Protein 6.1 L (6.3-8.2) g/dL // Range/Units 06:21 WBC (4.50-10.00) 10*3/uL RBC (4.10-5.20) 10*6/uL Hgb (12.0-15.0) g/dL Hct (37.2-46.3) % Immature Gran # (0.00-0.04) 10*3/uL Neutrophils # (1.80-7.70) 10*3/uL Lymphocytes # (0.90-5.00) 10*3/uL Eosinophils # (0.04-0.35) 10*3/uL Sodium (137-145) mmol/L Chloride (98-107) mmol/L BUN (7-17) mg/dL Creatinine (0.52-1.04) mg/dL Glucose (74-99) mg/dL POC Glucose (mg/dL) 136 H (70-110) mg/dL Calcium (8.4-10.2) mg/dL AST (14-36) U/L ALT (4-34) U/L Total Protein (6.3-8.2) g/dL
[2025-02-18] MEDS: APIXABAN 2.5 MG TABLET PO SCH (10:23)
[2025-02-18 12:19] LABS: Glucose,Whole Blood 166 mg/dL (70-110)
--- NOTE | 2025-02-18 13:24 | P.PN ---
Subjective patient is seen at bedside. complains of headache, nausea, feels that she will vomit if she eats. on external Catheter, balance is -1275. she denies chest pain, SOB and Abdominal or flank pain. Objective - Vital Signs Vital signs: Vital Signs Temp 98.1 F 02/18/25 08:00 Pulse 109 H 02/18/25 08:00 Resp 16 02/18/25 08:00 BP 123/81 02/18/25 08:00 Pulse Ox 99 02/18/25 08:00 FiO2 Intake & Output 02/17/25 02/18/25 02/18/25 18:59 06:59 18:59 Intake Total 425 Output Total 800 900 600 Balance -375 900 -600 Intake: Oral 425 Output: Urine 800 900 600 Other: Voiding Method Toilet External Catheter External Catheter - Exam Vital signs shows Tachycardia General: No acute distress. HEENT: Head exam is unremarkable. On room air. LUNGS: No audible rhonchi or wheezes. HEART: Rate and Rhythm are regular. ABDOMEN: Obese, nontender. EXTREMITITES: 1+ edema up to chaves - Labs CBC & Chem 7: 02/18/25 03:46 02/18/25 13:04 Labs: Abnormal Lab Results - Last 24 Hours (Table) 02/17/25 02/17/25 02/17/25 Range/Units 11:37 16:34 20:29 WBC (4.50-10.00) 10*3/uL RBC (4.10-5.20) 10*6/uL Hgb (12.0-15.0) g/dL Hct (37.2-46.3) % Immature Gran # (0.00-0.04) 10*3/uL Neutrophils # (1.80-7.70) 10*3/uL Lymphocytes # (0.90-5.00) 10*3/uL Eosinophils # (0.04-0.35) 10*3/uL Sodium (137-145) mmol/L Chloride (98-107) mmol/L BUN (7-17) mg/dL Creatinine (0.52-1.04) mg/dL Glucose (74-99) mg/dL POC Glucose (mg/dL) 146 H 289 H 301 H (70-110) mg/dL Calcium (8.4-10.2) mg/dL AST (14-36) U/L ALT (4-34) U/L Total Protein (6.3-8.2) g/dL 02/18/25 02/18/25 02/18/25 Range/Units 00:19 03:41 03:46 WBC 16.24 H (4.50-10.00) 10*3/uL RBC 3.27 L (4.10-5.20) 10*6/uL Hgb 10.2 L (12.0-15.0) g/dL Hct 30.5 L (37.2-46.3) % Immature Gran # 0.13 H (0.00-0.04) 10*3/uL Neutrophils # 14.92 H (1.80-7.70) 10*3/uL Lymphocytes # 0.29 L (0.90-5.00) 10*3/uL Eosinophils # 0.01 L (0.04-0.35) 10*3/uL Sodium 130 L (137-145) mmol/L Chloride 91 L (98-107) mmol/L BUN 63 H (7-17) mg/dL Creatinine 2.89 H (0.52-1.04) mg/dL Glucose 127 H (74-99) mg/dL POC Glucose (mg/dL) 232 H (70-110) mg/dL Calcium 10.3 H (8.4-10.2) mg/dL AST 40 H (14-36) U/L ALT 60 H (4-34) U/L Total Protein 6.1 L (6.3-8.2) g/dL 02/18/25 Range/Units 06:21 WBC (4.50-10.00) 10*3/uL RBC (4.10-5.20) 10*6/uL Hgb (12.0-15.0) g/dL Hct (37.2-46.3) % Immature Gran # (0.00-0.04) 10*3/uL Neutrophils # (1.80-7.70) 10*3/uL Lymphocytes # (0.90-5.00) 10*3/uL Eosinophils # (0.04-0.35) 10*3/uL Sodium (137-145) mmol/L Chloride (98-107) mmol/L BUN (7-17) mg/dL Creatinine (0.52-1.04) mg/dL Glucose (74-99) mg/dL POC Glucose (mg/dL) 136 H (70-110) mg/dL Calcium (8.4-10.2) mg/dL AST (14-36) U/L ALT (4-34) U/L Total Protein (6.3-8.2) g/dL Assessment and Plan Plan: Assessment: 1. Acute kidney injury secondary to ATN secondary to cardiorenal syndrome. Creatinine 2.16 on admission, today is 2.89. 2. Chronic kidney disease stage IV (eGFR of 18) with baseline creatinine 1.7-2 secondary to solitary right kidney. 3. Volume overload, on IV Lasix 60 mg twice daily, Farxiga 5 mg once daily, LE edema improved, +1 edema bilaterally. 4. Hyponatremia 130 today 5. Tachycardia: HR 109 bpm, Cardio started her again on Metoprolol 25mg BID 6. Hypercalcemia 10.4 today. 7. Hypokalemia: Cardiology added 40 mg Potassium chloride today. Plan: D/c IV Lasix 60 mg twice daily Add Torsemide 40 mg once daily On Farxiga 5 mg once daily Order CXR to rule out edema Order BMP, Iron, Magnesium. Order PTH, protein electrophoresis, Immunofixation and Vitamin D. continue on low-salt diet and 1500 cc fluid restriction. Strict I's and O's. Avoid nephrotoxins. Continue to monitor renal function and urine output. Patient is counselled about monitoring her weight when she is discharged, if she is gaining >3pounds, Call to adjust her medications. I have seen and examined the patient with resident and agree with A&P as written. Transition to po torsemide. check secondary workup for hypercalcemia. Edema better.
[2025-02-18] MEDS: ACETAMINOPHEN TAB 325 MG TAB PO PRN (14:07)
--- NOTE | 2025-02-18 14:16 | XR ---
EXAMINATION TYPE: XR chest 1V portable DATE OF EXAM: 02/18/2025 2:07 PM COMPARISON: Chest radiographs from 02/15/2025 CLINICAL INDICATION: Female, 74 years old with history of edema; [facility] TECHNIQUE: XR chest 1V portable Frontal view of the chest. FINDINGS: Lungs/Pleura: There is no evidence of pleural effusion, focal consolidation, or pneumothorax. Pulmonary vascularity: Unremarkable. Heart/mediastinum: Cardiomediastinal silhouette is enlarged. Atherosclerotic calcifications are seen in the aorta. Single-lead cardiac conduction device overlying the left hemithorax with lead projecti ng over the right ventricle. Aortic valvular repair changes. Musculoskeletal: No acute osseous pathology. Right shoulder arthroplasty appears intact. IMPRESSION: No acute cardiopulmonary disease/process. [facility] Cheryle Vasquez, , 02/18/2025 2:13 PM
--- NOTE | 2025-02-18 14:38 | P.PN ---
Subjective History of present illness; 74-year-old female with a significant past medical history of systolic CHF w/ EF 10-15% A-fib CAD, TAVR, nephrectomy and drug- induced liver injury, presents for weakness and chest pain. She has been at [facility] for rehab since being discharged 02/08/2025. On previous hospitalization patient was admitted for suspected drug-induced developed liver injury with evidence of elevated LFTs, elevated creatinine, and diffuse +2 pitting edema in all extremities. She was admitted for diuresis as well as medication management post Drug induced liver injury. At time of discharge, LFTs and creatinine had returned to normal range. Since admission to rehab, she reports she has been progressively feeling weaker developed chest pain yesterday. She reports symptoms are similar to last admission, she reports edema and fatigue not as severe as previous admission. She denies fever chills dizziness abdominal pain changes in stool dysuria polyuria hematuria. She endorses chest pressure and worsening weakness. In the ER she got an EKG which revealed sinus bradycardia, she also received a CT abdomen and pelvis that revealed no acute changes. Chest x-ray reveals cardiomegaly mild pulmonary edema without effusion. Labs in the ER revealed Cr 2.69, BUN 61, NA 129 K5.9 alk phos 135 ALT 72 BNP 9300 troponin within normal ra nge CT A scan was wanted in the ER due to elevated D-dimer (3.07) but deferred due to kidney function, VQ ordered instead. Returned negative Patient was admitted to the hospital for WENDY and acute on chronic systolic heart failure with consults to cardiology and nephrology 02/17/2025 patient seen at bedside she is still weak however breathing easier. 02/18/2025: Patient seen and examined at bedside patient is extremely disoriented she was moved from observation to cardiac floor was extremely unclear how she arrived there. Patient was reoriented but extremely anxious. Patient reports she is feeling awful and extremely weak, unclear if due to stress or worsening condition. Patient is extremely anxious and confused difficult to take history REVIEW OF SYSTEMS: As stated above in HPI. The rest of the 14-point review of systems is negative. PHYSICAL EXAMINATION: GENERAL: The patient is alert and oriented x3, not in any acute distress. Well developed, well nourished. HEENT: Pupils are round and equally reacting to light. EOMI. No scleral icterus. No conjunctival pallor. Normocephalic, atraumatic. CARDIOVASCULAR: S1 and S2 present. No murmurs, rubs, or gallops. PULMONARY: Crackles in lower lung field bilaterally with decreased air entry bilaterally ABDOMEN: Soft, nontender, nondistended, normoactive bowel sounds. No palpable organomegaly. MUSCULOSKELETAL: No joint swelling or deformity. EXTREMITIES: +1 pitting edema in lower extremity bilaterally to midshin, upper extremity nonedematous, strength even bilaterally in all 4 extremities. NEUROLOGICAL: Gross neurological examination did not reveal any focal deficits. SKIN: No rashes. Assessment and Plan #Acute on chronic systolic heart failure (EF 10-15% per echo 02/03) #Chest pain # Improving hyponatremia/Hyperkalemia secondary to polypharmacy #WENDY probably secondary to polypharmacy (increased 2.89 today) #History of drug-induced liver injury #Chest pain likely secondary to CHF exacerbation #Sustained Bradycardia -Add Metropolol 25 TID -Change IV lasix to PO torosemide Add Aldactone, Farxiga, one-time dose of metolazone -Add amiodarone 400 twice daily -CXR For pulmonary Edema -Immunofixation, protein electrophoresis, and PTH to assess cause of kidney failure Nitroglycerin as needed -Strict I and O - Fluid Restrict to 2L, Low Sodium Diet -Daily Weight Consulted cardiology recommendations appreciated Consulted nephrology recommendations appreciated Patient requesting transfer to a higher level of care discussed options with patient family at bedside we will continue to discuss, no plan to transfer at this point #Shortness of breath #Elevated D-dimer -5000 of heparin in the ER -VQ scan results unliely PE -DC Heparin #Hypertension Continue home medication #T2DM Basal Lantus Humalog 3 times daily with meals Sliding scale insulin #Anxiety depression Continue home medication #Pain Multimodal pain management #Gout Continue home medication DVT ppx: GI ppx: Protonix CODE STATUS: Full code Dispo: Pending clinical course Objective - Vital Signs Vital signs: Vital Signs Temp 98.3 F 02/18/25 05:05 Pulse 109 H 02/18/25 05:05 Resp 16 02/18/25 05:05 BP 124/74 02/18/25 05:05 Pulse Ox 99 02/18/25 05:05 FiO2 Intake & Output 02/17/25 02/18/25 02/18/25 18:59 06:59 18:59 Intake Total 425 Output Total 800 900 Balance -375 -900 Intake: Oral 425 Output: Urine 800 900 Other: Voiding Method Toilet External Catheter External Catheter - Labs CBC & Chem 7: 02/18/25 03:46 02/18/25 13:04 Labs: Abnormal Lab Results - Last 24 Hours (Table) 02/17/25 02/17/25 02/17/25 Range/Units 11:37 16:34 20:29 WBC (4.50-10.00) 10*3/uL RBC (4.10-5.20) 10*6/uL Hgb (12.0-15.0) g/dL Hct (37.2-46.3) % Immature Gran # (0.00-0.04) 10*3/uL Neutrophils # (1.80-7.70) 10*3/uL Lymphocytes # (0.90-5.00) 10*3/uL Eosinophils # (0.04-0.35) 10*3/uL Sodium (137-145) mmol/L Chloride (98-107) mmol/L BUN (7-17) mg/dL Creatinine (0.52-1.04) mg/dL Glucose (74-99) mg/dL POC Glucose (mg/dL) 146 H 289 H 301 H (70-110) mg/dL Calcium (8.4-10.2) mg/dL AST (14-36) U/L ALT (4-34) U/L Total Protein (6.3-8.2) g/dL 02/18/25 02/18/25 02/18/25 Range/Units 00:19 03:41 03:46 WBC 16.24 H (4.50-10.00) 10*3/uL RBC 3.27 L (4.10-5.20) 10*6/uL Hgb 10.2 L (12.0-15.0) g/dL Hct 30.5 L (37.2-46.3) % Immature Gran # 0.13 H (0.00-0.04) 10*3/uL Neutrophils # 14.92 H (1.80-7.70) 10*3/uL Lymphocytes # 0.29 L (0.90-5.00) 10*3/uL Eosinophils # 0.01 L (0.04-0.35) 10*3/uL Sodium 130 L (137-145) mmol/L Chloride 91 L (98-107) mmol/L BUN 63 H (7-17) mg/dL Creatinine 2.89 H (0.52-1.04) mg/dL Glucose 127 H (74-99) mg/dL POC Glucose (mg/dL) 232 H (70-110) mg/dL Calcium 10.3 H (8.4-10.2) mg/dL AST 40 H (14-36) U/L ALT 60 H (4-34) U/L Total Protein 6.1 L (6.3-8.2) g/dL // Range/Units 06:21 WBC (4.50-10.00) 10*3/uL RBC (4.10-5.20) 10*6/uL Hgb (12.0-15.0) g/dL Hct (37.2-46.3) % Immature Gran # (0.00-0.04) 10*3/uL Neutrophils # (1.80-7.70) 10*3/uL Lymphocytes # (0.90-5.00) 10*3/uL Eosinophils # (0.04-0.35) 10*3/uL Sodium (137-145) mmol/L Chloride (98-107) mmol/L BUN (7-17) mg/dL Creatinine (0.52-1.04) mg/dL Glucose (74-99) mg/dL POC Glucose (mg/dL) 136 H (70-110) mg/dL Calcium (8.4-10.2) mg/dL AST (14-36) U/L ALT (4-34) U/L Total Protein (6.3-8.2) g/dL
[2025-02-18 14:46] LABS: African American GFR (CKD) 18 (>60 ml/min/1.73 sqM); Anion Gap 12 mmol/L; Blood Urea Nitrogen 61 mg/dL (7-17); Calcium 10.4 mg/dL (8.4-10.2); Carbon Dioxide 28 mmol/L (22-30); Chloride 89 mmol/L (98-107); Glucose 138 mg/dL (74-99); Magnesium 2.4 mg/dL (1.6-2.3); Non-African American GFR(CKD) 16 (>60 ml/min/1.73 sqM); Potassium 4.5 mmol/L (3.5-5.1); Sodium 129 mmol/L (137-145)
[2025-02-18 16:47] LABS: Glucose,Whole Blood 105 mg/dL (70-110)
[2025-02-18 20:17] LABS: Glucose,Whole Blood 146 mg/dL (70-110)
[2025-02-18 21:15] LABS: Iron 23 UG/DL (50-170); Total Iron Binding Capacity 371 UG/DL (228-460)
[2025-02-19] MEDS: SODIUM CHLORIDE 0.9% 250 ML IV ONE (00:53)
[2025-02-19] MEDS: MIDODRINE 5 MG TAB PO SCH (01:42)
[2025-02-19 03:33] LABS: Glucose,Whole Blood 125 mg/dL (70-110)
[2025-02-19] MEDS: AMIODARONE 360 MG in DEXTROSE 5% IN WATER 200 ML IV ONE (03:54)
[2025-02-19] MEDS: DEXTROSE 5% IN WATER 100 ML with AMIODARONE 150 MG IV ONE (03:54)
[2025-02-19] MEDS ORDERED: VANCOMYCIN IV PER PHARMACY 1 EACH MISC MISCELLANE PRN (04:16)
[2025-02-19 04:34] LABS: Glucose,Whole Blood 160 mg/dL (70-110)
[2025-02-19 04:48] LABS: ABG HCO3 16 mmol/L (21-25); ABG PCO2 25 mmHg (35-45); ABG PH 7.41 (7.35-7.45); ABG PO2 195 mmHg (83-108); ABG TCO2 17 mmol/L (19-24); Allen Test Performed? Yes
[2025-02-19] MEDS ORDERED: NALOXONE 0.4 MG/ML 1 ML VIAL IV PRN (04:49)
[2025-02-19] MEDS: SODIUM CHLORIDE 0.9% 500 ML 500 ML IV ONE (05:14)
[2025-02-19] MEDS: MIDODRINE 5 MG TAB PO ONE (05:14)
--- NOTE | 2025-02-19 05:46 | P.EN ---
Rapid Response Note - Gypsy Auguste, 02/19/2025 Time Called: 0330 Reason: VT triggering ICD shock. Unable to obtain BP via cuff. Palpable radial pulse present. Relevant Hx: HFrEF (LVEF 10-15%), paroxysmal AF, ICD. Initial Assessment: Reviewed telemetry: Confirmed appropriate ICD discharge for VT. Noted widening QRS on rapid response team arrival. Interventions & Course: IVF Bolus: 500 mL ordered. Amiodarone: 150 mg IV x1 given -> QRS narrowed initially. Recurrent Widening QRS Amiodarone 150 mg IV x1 given -> Amiodarone drip initiated -> QRS shortened effectively. Sepsis Workup Initiated (WBC 16 on 02/18 labwork): Blood cultures x2, lactic acid, CBC/CMP/magnesium sent. CXR & UA w/ reflex culture obtained. Empiric Antibiotics: Ceftriaxone & Vancomycin ordered for suspected sepsis. Persistent Hypotension: No measurable BP via cuff despite near-completion IVF bolus. Palpable radial pulse maintained. Levophed initiated. Code Status: Confirmed Full Code with daughter at bedside. ICU Transfer: Discussed with ADDICTION SOCIAL WORKER Francis -> Patient transferred to ICU. ICU Procedures (Post-Transfer): Radial Arterial Line: Placed by rapid team with daughter's consent for BP monitoring & levophed titration. R IJ Central Line: Placed by rapid with daughter's consent (1 peripheral IV inadequate for concurrent Amiodarone drip & Levophed). Differentials: Cardiogenic Shock vs. Septic Shock. Orders/Planning: ICD Interrogation ordered for AM. Levophed titration per ICU protocol (via central line). Continue Amiodarone drip (via central line). Follow-up pending cultures/labs/imaging. Rest of care per primary team. Senthil Bonilla MD
[2025-02-19 05:55] LABS: Bacteria,Urine Rare /hpf; Bilirubin,Urine Negative (Negative); Blood,Urine Negative (Negative); Color,Urine Light Yellow; Glucose,Urine (UA) 2+ (Negative); Hyaline Casts,Urine 1 /lpf (0-2); Ketones,Urine Negative (Negative); Leukocyte Esterase,Urine Small (Negative); Nitrite,Urine Negative (Negative); PH, Urine 6.5 (5.0-8.0); Protein,Urine Trace (Negative); RBC,Urine 1 /hpf (0-5); Specific Gravity,Urine 1.009 (1.001-1.035); Urobilinogen,Urine <2.0 mg/dL (<2.0); WBC,Urine 12 /hpf (0-5)
[2025-02-19] MEDS: VANCOMYCIN 1,750 MG in SODIUM CHLORIDE 0.9% 500 ML 500 ML IVPB ONE (05:55)
--- NOTE | 2025-02-19 06:01 | P.EN ---
CENTRAL LINE PROCEDURE NOTE Indication: [X] Hypotension/Sepsis/Need for Pressors [_] Vascular Access [_] Dialysis Access [_] Suspected Central Line Infection [_] Line Malfunction [_] Other: _ Central Line Location: RIGHT [X] Internal Jugular Vein or [_] Subclavian Vein or [_] Femoral Vein Procedure Customer Support Professional: Dr. Liban Lane Attending Physician: Dr. Senthil Bonilla Present During Procedure?: [X] Yes [_] No Consent: [X] Consent was obtained from daughter prior to the procedure. Indications, risks and benefits were discussed prior to the procedure. [_] The procedure was performed emergently and the permission was implied because of the emergent nature. PROCEDURE SUMMARY: A time out was performed. My hands were washed immediately prior to the procedure. I wore a surgical cap, mask with protective eyewear, full gown and sterile gloves throughout the procedure. The patient was placed in Trendelenburg position. The RIGHT neck was prepped using chlorhexidine scrub and draped in sterile fashion using a three quarter sheet drape and sterile towels. Skin preparation was allowed to dry prior to skin puncture. Anatomic landmarks were identified. Anesthesia was achieved over the vein using 1% lidocaine. Using real-time ultrasound, with sterile probe cover and sterile gel, the introducer needle was inserted into the vein under direct ultrasound visualization. Venous blood was withdrawn. The syringe was removed and a guidewire was advanced into the introducer needle. The guidewire was visualized in the appropriate vein by ultrasound. A small incision was made at the skin surface with a scalpel and the introducer needle was exchanged for a dilator over the guidewire. After appropriate dilation was obtained, the dilator was exchanged over the wire for a 7 [place] central venous catheter. The wire was removed and the catheter was sutured in place at 18 cm. A biopatch was placed at the insertion site. A sterile op-site was placed over the catheter and biopatch. The patient tolerated the procedure without any hemodynamic compromise. At time of procedure completion, all ports aspirated and flushed properly. Post-procedure chest x-ray : [_] Is pending at this time. [x] Shows adequate positioning of the catheter for use. ARTERIAL LINE PROCEDURE NOTE INDICATION: ability to monitor BP PROCEDURE [place] INFORMATION CLERK: Dr. Liban Lane ATTENDING PHYSICIAN: Dr. Senthil Bonilla CONSENT: [X] During the informed consent discussion regarding the procedure, or treatment, I explained the following to the patient/designee: a. Nature of the procedure or treatment and who will perform the procedure or treatment. b. Necessity for procedure and the possible benefits. c. Risks and complications (most common and serious). d. Alternative treatments and the risks, benefits and side effects of each (including no treatment). e. Likelihood of the patient achieving his/her goals without this procedure and surgery treatment. f. Problems that might occur during the recuperation. g. Conflicts of interest, if any [_] The procedure was emergent, the patient was unable to provide consent, and a designee was not immediately available. PROCEDURE SUMMARY: A time out was performed. My hands were washed immediately prior to the procedure. I wore a surgical cap, mask with protective eyewear, sterile gown and sterile gloves throughout the procedure. After an Yasmani test was performed to ensure adequate perfusion, the LEFT wrist was prepped using chlorhexidine scrub and draped in sterile fashion using a three quarter sheet drape and sterile towels. The radial pulse was identified and the wrist was positioned in the usual fashion. Anesthesia was achieved using 1% lidocaine. Using the Arrow Radial Arterial Line Kit, a needle was inserted into the radial artery. Arterial blood was seen to pulsate in the flash chamber. The internal guidewire was advanced easily into the radial artery. The catheter was then advanced over the wire and the needle and wire were withdrawn. The catheter was sutured in place. A sterile opsite was placed over the catheter at the insertion site. The patient tolerated the procedure without any hemodynamic compromise. At the time of procedure completion, the catheter was connected to the monitoring coordinator and calibrated. Appropriate waveform and blood pressure tracing was observed. Estimated blood loss is [address] MD PGY-1 Internal Medicine I have seen and evaluated the patient today. Discussed with the resident and agree with the residents finding and plan as documented in the resident's note. Changes highlighted in blue font.
--- NOTE | 2025-02-19 06:32 | P.CNPUL ---
History of Present Illness Consult date: 02/19/25 Requesting physician: Senthil Bonilla Reason for consult: other (ICU management) History of present illness: Received a call from the [facility] physician, a rapid response called earlier this morning on this patient. Apparently, patient reportedly had a episode of wide- complex tachycardia in the 140s with pulse. She was loaded with IV amiodarone and started on the amiodarone protocol. Suspicion that her AICD may have fired. Following this became hypotensive and transfered to the ICU. Patient is 74-year-old female with extensive comorbidities including asthma, hypertension, hyperlipidemia, coronary artery disease with previous CABG, aortic valve replacement, ischemic cardiomyopathy, AICD, prior cardiac arrest. Recent available echocardiogram from February 03 estimating left ventricular ejection fraction of 10 to 15% with a functioning bioprosthetic aortic valve, moderate mitral regurgitation, severe tricuspid regurgitation, and RV dilation. Also, recent left nephrectomy at outside facility. Patient originally admitted back on 02/15/2025. Chief complaint of generalized weakness and chest pain. There was bilateral lower extremity edema. Chest x- ray showing cardiomegaly with mild vascular congestion. NT proBNP elevated at 9300. Prior VQ scan showing low probability for pulmonary embolism. Most recent available labs from yesterday including a CBC with an increase in her WBC count up to 16.24, hemoglobin 10.2, platelets 210. BMP with sodium 129, potassium 4.5, chloride 89, serum bicarb 28, creatinine 2.84, glucose 138. LFTs unremarkable. Total bilirubin 1.3. Prior UA unremarkable for infection. EKG from rapid response reviewed, showing regular wide-complex tachycardia with right axis deviation and rate of 140s. Prior to this, it appears she was in A- fib with RVR with aberrancy on telemetry. Patient now being seen in the intensive care unit. She is lethargic. She is tachypneic on a 15 L nonrebreather. Current rhythm normal sinus. Troubles achieving accurate noninvasive blood pressures and the [facility] physician is going to insert a arterial line. Blood pressure was previously hypotensive during the A-team, and started on norepinephrine at 0.03 mcg/kg/min. Amiodarone continues to infuse at 1 mg/min. She was also noted to be have a fever, temperature 102.7 F. She was empirically covered on a combination of antibiotics including Rocephin and vancomycin. ABGs done showing a PaO2 of 195, pCO2 of 25, pH of 7.4. Repeat lab work is pending. No further episodes of ectopy at this time. Review of Systems ROS unobtainable: due to mental status Past Medical History Past Medical History: Asthma, Coronary Artery Disease (CAD), Chest Pain / Angina, Heart Failure, Diabetes Mellitus, GERD/Reflux, Hyperlipidemia, Hypertension, Myocardial Infarction (CO), Osteoarthritis (OA), Pneumonia, Renal Disease, Syncope Additional Past Medical History / Comment(s): CO 1997, 2003, 2007, CARDIAC ARREST 2016,GOUT, SPINAL STENOSIS, BRONCHITIS, CONSTIPATION, HX OF DIZZINESS & FALLS, AORTIC STENOSIS, KIDNEY FAILURE STAGE 3-B, PACER/AICD, Fatigue, very SOB w/exertion recently. Aortic Valve Replacement Dec, 2019. 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 Date of Last Stent Placement:: UNKNOWN Type of Cardiac Device: AICD Device Placement Date:: 10-05-16 chest [place] Past Psychological History: Anxiety, Depression Additional Psychological History / Comment(s): . Smoking Status: Never smoker Past Alcohol Use History: Occasional Past Drug Use History: None Reported - Past Family History Mother Family Medical History: No Reported History Additional Family Medical History / Comment(s): . Medications and Allergies Home Medications Medication Instructions Recorded Confirmed Type Famotidine [Pepcid] 20 mg PO HS 06/20/16 02/16/25 History Montelukast [Singulair] 10 mg PO HS 06/20/16 02/16/25 History Insulin Glargine,Hum.rec.anlog 10 units SQ BID 02/21/23 02/16/25 History [Lantus Solostar Pen] Insulin Lispro [humaLOG Kwikpen] See Protocol SQ AC-TID 02/21/23 02/16/25 History Ranolazine [Ranexa] 500 mg PO BID@0800,1700 02/21/23 02/16/25 History Nystatin 100,000 Unit/gm Powd 1 applic TOPICAL BID 10/18/24 02/16/25 History [Mycostatin Powder] Acetaminophen Tab [Tylenol] 1,000 mg PO BID@0800,1700 01/05/25 02/16/25 History Acetaminophen Tab [Tylenol] 1,000 mg PO Q6HR PRN 01/05/25 02/16/25 History Nystatin 100,000Unit/gm Cream 1 applic TOPICAL BID 01/05/25 02/16/25 History [Mycostatin Cream] polyethylene glycoL 3350 [Miralax] 17 gm PO HS #30 packet 01/15/25 02/16/25 Rx FLUoxetine HCL [PROzac] 20 mg PO DAILY 01/31/25 02/16/25 History Lidocaine 5% Patch [Lidoderm 5% 1 patch TOPICAL DAILY 01/31/25 02/16/25 History Patch] Amiodarone [Cordarone] 200 mg PO DAILY 14 Days #14 tab 02/08/25 02/16/25 Rx HYDROcodone/APAP 5-325MG [[place] 1 tab PO Q6HR PRN #4 tab 02/08/25 02/16/25 Rx 5-325] Furosemide [Lasix] 40 mg PO BID@0800,1400 02/16/25 02/16/25 History Glucerna Shake 237 ml PO DAILY 02/16/25 02/16/25 History Isosorbide Mononitrate ER [Imdur] 60 mg PO BID@0800,1700 02/16/25 02/16/25 History Magnesium Hydroxide [Milk of 7,200 mg PO DAILY PRN 02/16/25 02/16/25 History Magnesia Concentrate] Metoprolol Tartrate [Lopressor] 50 mg PO BID@0800,1700 02/16/25 02/16/25 History Na Phos,M-B/Na Phos,Di-Ba [Fleet 133 ml RECTAL DAILY PRN 02/16/25 02/16/25 History Adult] Ondansetron [Zofran] 4 mg PO Q6H PRN 02/16/25 02/16/25 History Protect External Ointment 1 applic TOPICAL BID 02/16/25 02/16/25 History Spironolactone 25 mg PO DAILY 02/16/25 02/16/25 History allopurinoL [Zyloprim] 50 mg PO HS 02/16/25 02/16/25 History bisacodyL [Dulcolax] 10 mg RECTAL DAILY PRN 02/16/25 02/16/25 History hydrALAZINE HCL [Apresoline] 25 mg PO TID@0600,1400,2200 02/16/25 02/16/25 History Allergies Allergy/AdvReac Type Severity Reaction Status Date / Time amoxicillin [From Augmentin] Allergy Anaphylaxis Verified 02/16/25 08:55 /rash/hives cefprozil [From Cefzil] Allergy Anaphylaxis Verified 02/16/25 08:55 /rash/hives clavulanic acid Allergy Anaphylaxis Verified 02/16/25 08:55 [From Augmentin] /rash/hives sulfamethoxazole Allergy Anaphylaxis Verified 02/16/25 08:55 [From Bactrim] /rash/hives trimethoprim [From Bactrim] Allergy Anaphylaxis Verified 02/16/25 08:55 /rash/hives Physical Exam Vitals: Vital Signs Temp Pulse Resp BP BP Pulse Ox 02/19/25 02:37 101/71 02/19/25 01:08 93/64 02/19/25 00:29 77/36 02/19/25 00:11 105/63 02/18/25 23:40 86/53 02/18/25 23:10 97.7 F 76 16 75/46 96 02/18/25 22:43 78/46 02/18/25 22:37 78/55 02/18/25 22:29 100/65 02/18/25 22:22 87/54 02/18/25 22:14 79/54 74/47 02/18/25 20:20 69/49 02/18/25 19:36 102.7 F H 79 16 101/62 98 02/18/25 16:00 98 F 82 16 96/55 99 02/18/25 12:00 98 F 101 H 16 99/66 99 02/18/25 08:00 98.1 F 109 H 16 123/81 99 02/18/25 05:05 98.3 F 109 H 16 124/74 99 Intake and Output 02/18/25 02/18/25 02/19/25 14:59 22:59 06:59 Intake Total 70 20 Output Total 1300 550 Balance -1300 -480 20 Intake: IV 30 20 Invasive Line 1 20 10 Invasive Line 2 10 10 Oral 40 Output: Urine 1300 550 Other: Voiding Method External Catheter External Catheter External Catheter Weight 90 kg GENERAL EXAM: Lethargic, 74-year-old female, on 15 L nonrebreather, in mild respiratory distress. HEAD: Normocephalic and atraumatic EYES: Normal reaction of pupils, equal size. NOSE: Clear with pink turbinates. THROAT: No erythema or exudates. NECK: No masses, no JVD. CHEST: Left chest implanted device LUNGS: Equal air entry with minimal bibasilar inspiratory crackles. CVS: S1 and S2 normal with no audible murmur, regular rhythm. No extra heart sounds ABDOMEN: No hepatosplenomegaly, active bowel sounds, no guarding or rigidity. Small well-approximated left abdominal [place] incision SPINE: No scoliosis or deformity SKIN: Mottled appearance of the lower extremities CENTRAL NERVOUS SYSTEM: No focal deficits, tone is normal in all 4 extremities. EXTREMITIES: There is mild nonpitting edema bilateral., clubbing, or cyanosis. Peripheral pulses are intact. Results - Laboratory Findings CBC and BMP: 02/19/25 06:20 02/19/25 12:32 PT/INR, D-dimer PT 11.5 sec (10.0-12.5) 02/15/25 21:02 INR 1.0 (<1.2) 02/15/25 21:02 D-Dimer 3.07 mg/L FEU (<0.60) H 02/15/25 21:02 Abnormal lab findings: Abnormal Labs 02/15/25 02/15/25 02/15/25 21:02 21:02 21:02 WBC RBC 3.50 L Hgb 11.1 L Hct 33.2 L MCV MCHC Immature Gran # Neutrophils # Lymphocytes # Eosinophils # 0.02 L APTT D-Dimer 3.07 H Sodium 129 L Potassium 5.9 H Chloride 93 L Carbon Dioxide Anion Gap BUN 61 H Creatinine 2.69 H Est GFR (CKD-EPI) BUN/Creatinine Ratio Glucose 198 H POC Glucose (mg/dL) Calcium 10.4 H Magnesium 3.0 H Iron % Saturation AST ALT 72 H Alkaline Phosphatase 135 H Total Protein Total Protein (PEP) Vitamin D 25-Hydroxy PTH Intact 02/16/25 02/16/25 02/16/25 07:36 07:36 10:26 WBC RBC Hgb Hct MCV MCHC Immature Gran # Neutrophils # Lymphocytes # Eosinophils # APTT 37.1 H D-Dimer Sodium 132 L Potassium 5.8 H Chloride 94 L Carbon Dioxide 20.1 L Anion Gap 17.90 H BUN 56.2 H Creatinine 2.7 H Est GFR (CKD-EPI) 18 L BUN/Creatinine Ratio 20.81 H Glucose 161 H POC Glucose (mg/dL) 158 H Calcium Magnesium Iron % Saturation AST ALT Alkaline Phosphatase Total Protein Total Protein (PEP) Vitamin D 25-Hydroxy PTH Intact 02/16/25 02/16/25 02/17/25 12:22 21:12 06:30 WBC RBC Hgb Hct MCV MCHC Immature Gran # Neutrophils # Lymphocytes # Eosinophils # APTT D-Dimer Sodium Potassium Chloride Carbon Dioxide Anion Gap BUN Creatinine Est GFR (CKD-EPI) BUN/Creatinine Ratio Glucose POC Glucose (mg/dL) 139 H 120 H 112 H Calcium Magnesium Iron % Saturation AST ALT Alkaline Phosphatase Total Protein Total Protein (PEP) Vitamin D 25-Hydroxy PTH Intact 02/17/25 02/17/25 02/17/25 07:14 07:14 11:37 WBC RBC 3.32 L Hgb 10.3 L Hct 32.7 L MCV 98.5 H MCHC 31.5 L Immature Gran # Neutrophils # Lymphocytes # Eosinophils # APTT D-Dimer Sodium 133 L Potassium Chloride Carbon Dioxide Anion Gap BUN 58 H Creatinine 2.50 H Est GFR (CKD-EPI) BUN/Creatinine Ratio Glucose 121 H POC Glucose (mg/dL) 146 H Calcium Magnesium 2.7 H Iron % Saturation AST 38 H ALT 62 H Alkaline Phosphatase Total Protein 6.0 L Total Protein (PEP) Vitamin D 25-Hydroxy PTH Intact 02/17/25 02/17/25 02/18/25 16:34 20:29 00:19 WBC RBC Hgb Hct MCV MCHC Immature Gran # Neutrophils # Lymphocytes # Eosinophils # APTT D-Dimer Sodium Potassium Chloride Carbon Dioxide Anion Gap BUN Creatinine Est GFR (CKD-EPI) BUN/Creatinine Ratio Glucose POC Glucose (mg/dL) 289 H 301 H 232 H Calcium Magnesium Iron % Saturation AST ALT Alkaline Phosphatase Total Protein Total Protein (PEP) Vitamin D 25-Hydroxy PTH Intact 02/18/25 02/18/25 02/18/25 03:41 03:46 06:21 WBC 16.24 H RBC 3.27 L Hgb 10.2 L Hct 30.5 L MCV MCHC Immature Gran # 0.13 H Neutrophils # 14.92 H Lymphocytes # 0.29 L Eosinophils # 0.01 L APTT D-Dimer Sodium 130 L Potassium Chloride 91 L Carbon Dioxide Anion Gap BUN 63 H Creatinine 2.89 H Est GFR (CKD-EPI) BUN/Creatinine Ratio Glucose 127 H POC Glucose (mg/dL) 136 H Calcium 10.3 H Magnesium Iron % Saturation AST 40 H ALT 60 H Alkaline Phosphatase Total Protein 6.1 L Total Protein (PEP) Vitamin D 25-Hydroxy PTH Intact 02/18/25 02/18/25 02/18/25 12:18 13:04 13:04 WBC RBC Hgb Hct MCV MCHC Immature Gran # Neutrophils # Lymphocytes # Eosinophils # APTT D-Dimer Sodium 129 L Potassium Chloride 89 L Carbon Dioxide Anion Gap BUN 61 H Creatinine 2.84 H Est GFR (CKD-EPI) BUN/Creatinine Ratio Glucose 138 H POC Glucose (mg/dL) 166 H Calcium 10.4 H Magnesium 2.4 H Iron 23 L % Saturation 6.20 L AST ALT Alkaline Phosphatase Total Protein Total Protein (PEP) 5.9 L Vitamin D 25-Hydroxy 26.9 L PTH Intact 02/18/25 02/18/25 02/19/25 13:04 20:15 03:31 WBC RBC Hgb Hct MCV MCHC Immature Gran # Neutrophils # Lymphocytes # Eosinophils # APTT D-Dimer Sodium Potassium Chloride Carbon Dioxide Anion Gap BUN Creatinine Est GFR (CKD-EPI) BUN/Creatinine Ratio Glucose POC Glucose (mg/dL) 146 H 125 H Calcium Magnesium Iron % Saturation AST ALT Alkaline Phosphatase Total Protein Total Protein (PEP) Vitamin D 25-Hydroxy PTH Intact 99.9 H 02/19/25 02/19/25 03:48 04:32 WBC RBC Hgb Hct MCV MCHC Immature Gran # Neutrophils # Lymphocytes # Eosinophils # APTT D-Dimer Sodium Potassium Chloride Carbon Dioxide Anion Gap BUN Creatinine Est GFR (CKD-EPI) BUN/Creatinine Ratio Glucose POC Glucose (mg/dL) 160 H Calcium Magnesium 2.5 H Iron % Saturation AST ALT Alkaline Phosphatase Total Protein Total Protein (PEP) Vitamin D 25-Hydroxy PTH Intact - Diagnostic Findings Chest x-ray: image reviewed Assessment and Plan Assessment: Unstable wide-complex tachycardia with a pulse, suspicion that patient's AICD may have fired, started on IV amiodarone per protocol with 150 mg IV bolus followed by drip at 1 mg/min. Hypotension, secondary to above, improved Acute on chronic systolic congestive heart failure Acute hypoxemic respiratory failure, currently on 15 L nonrebreather Acute metabolic acidosis, with compensated respiratory alkalosis Acute leukocytosis and fever, covered on antibiotic Acute on chronic kidney disease History of left-sided hydronephrosis with nephrolithiasis and frequent urinary tract infections History of recent left nephrectomy on 01/26/2025 Paroxysmal atrial fibrillation, anticoagulated on Eliquis Severe ischemic cardiomyopathy, most recent available echocardiogram estimating left ventricular ejection fraction of 10 to 15% with functioning bioprosthetic aortic valve, moderate mitral regurgitation, severe tricuspid regurgitation. AICD/pacemaker Coronary artery disease, with previous CABG History of prior cardiac arrest History of hyperlipidemia Diabetes mellitus History of asthma Obesity, with a BMI of 41.5 kg/m Plan: Rapid response called earlier this morning Previously loaded with 150 mg of IV amiodarone, continues on drip per protocol at 1 mg/min No further ectopy, appears sinus on bedside monitor Interrogate AICD Cardiology is already following Norepinephrine has since been weaned off, blood pressure is normotensive Arterial line and central line access previously established by the [facility] Repeat labs are pending On antibiotics in the form of Rocephin and vancomycin Blood and urine cultures ordered Case will be reviewed with my supervising physician, and further recommendations to follow I have personally seen and examined the patient, performed the documentation and the assessment and plan as written. Number of minutes spent on the visit:20 This is a joint evaluation that is being done along with the nurse practitioner. This evaluation was done in 35 minutes. The patient is currently admitted to the intensive care unit. This patient is critically ill. She suffers from severe cardiomyopathy with impaired LV function and ejection fraction of 10 to 15%. She is known to have coronary artery disease and she has undergone previous bypass surgery and multiple coronary stenting and she has ischemic cardiomyopathy. The patient has also undergone aortic valve replacement. The patient has been having episodes of ventricular tachycardia. The patient had another episode of wide-complex tachycardia overnight and there was suspicion that the ICD fired. Based on that, the patient was moved to the intensive care unit. Noted the patient has also undergone a nephrectomy and she has a single kidney she is suffering from an acute on top of chronic renal failure. At this point in time, the patient is unstable hemodynamically. Lactic acid level is, up to 10.4. She has a component of anion gap metabolic acidosis. Abdomen remains soft and nontender although she is complaining of some vague diffuse abdominal pain. The patient is currently in the intensive care unit. The patient is on amiodarone drip at 1 mg/min. She will be started on a bicarb infusion rate of 50 cc an hour. Lactic acid level 2 is to be monitored. Will monitor the CVP. Will cover the patient with empiric antibiotics covering intra-abdominal source of infection and the patient will be given IV Invanz and vancomycin will be discontinued. Meanwhile, the patient remains on anticoagulation with Eliquis 2.5 mg p.o. daily. The patient will be taken off diuretics for now. She is on metoprolol 25 mg p.o. 3 times daily. She is on Lantus 10 units twice daily and sliding scale insulin coverage. Condition is obviously critical. Prognosis poor based on presence of multisystem organ failure. Will monitor lactic acid levels. She is currently on oxygen at 6 L with a pulse ox of 99%. Chest x-ray shows no acute abnormalities. There is cardiomegaly and the central venous catheter is in appropriate location. There may be a trace left-sided pleural effusion. Condition remains extremely critical. Will collaborate care with cardiology and the rest of the c onsultants. Recent CAT scan of the abdomen showed no significant abnormalities. Time with Patient: Greater than 30
[2025-02-19 07:11] LABS: African American GFR (CKD) 15 (>60 ml/min/1.73 sqM); Anion Gap 24 mmol/L; Blood Urea Nitrogen 59 mg/dL (7-17); Calcium 9.4 mg/dL (8.4-10.2); Carbon Dioxide 13 mmol/L (22-30); Chloride 90 mmol/L (98-107); Glucose 168 mg/dL (74-99); Magnesium 2.4 mg/dL (1.6-2.3); Non-African American GFR(CKD) 13 (>60 ml/min/1.73 sqM); Potassium 5.0 mmol/L (3.5-5.1); Sodium 127 mmol/L (137-145)
--- NOTE | 2025-02-19 07:30 | XR ---
EXAMINATION TYPE: XR chest 1V portable DATE OF EXAM: 02/19/2025 4:24 AM COMPARISON: Chest radiographs from 02/16/2025 CLINICAL INDICATION: Female, 74 years old with history of poss sepsis; [facility] TECHNIQUE: XR chest 1V portable Frontal view of the chest. FINDINGS: Lungs/Pleura: Blunting of the left costophrenic angle. There is no evidence of right pleural effusio n, focal consolidation, or pneumothorax Pulmonary vascularity: Unremarkable. Heart/mediastinum: Cardiomediastinal silhouette is enlarged. Single-lead cardiac conduction device ov erlying the left hemithorax with lead projecting over the right ventricle. Musculoskeletal: No acute osseous pathology. Right shoulder arthroplasty appears intact. Other findings: None IMPRESSION: 1. No acute cardiopulmonary disease/process. 2. Possible left trace pleural effusion. [facility], , 02/19/2025 7:28 AM
--- NOTE | 2025-02-19 07:31 | XR ---
EXAMINATION TYPE: XR chest 1V portable DATE OF EXAM: 02/19/2025 5:24 AM COMPARISON: Chest radiographs from 02/16/2025 CLINICAL INDICATION: Female, 74 years old with history of line placement; [facility] TECHNIQUE: XR chest 1V portable Frontal view of the chest. FINDINGS: Lungs/Pleura: Blunting of the left costophrenic angle. There is no evidence of right pleural effusio n, focal consolidation, or pneumothorax Pulmonary vascularity: Unremarkable. Heart/mediastinum: Cardiomediastinal silhouette is enlarged. Single-lead cardiac conduction device ov erlying the left hemithorax with lead projecting over the right ventricle. Musculoskeletal: No acute osseous pathology. Right shoulder arthroplasty appears intact. Other findings: None Central venous catheter tip terminating superior cavoatrial junction. IMPRESSION: 1. Central venous catheter in appropriate placement. 2. No acute cardiopulmonary disease/process. 3. Possible left trace pleural effusion. [facility], , 02/19/2025 7:29 AM
--- NOTE | 2025-02-19 07:33 | P.PN ---
Subjective Progress Note Date: 02/19/25 PROGRESS NOTE The patient is a 74-year-old female with known history of severe ischemic cardiomyopathy, status post TAVR, status post ICD implantation. She has a known history of chronic kidney disease, ventricular tachycardia who presented with symptoms of progressive dyspnea. Yesterday had episode of wide-complex rhythm and was transferred to the ICU. She is in sinus mechanism at this time. She is awake, following commands, very weak, not verbalizing. She is on IV amiodarone, she is off norepinephrine that was started earlier prior to transfer to the ICU. Her urinary output is stable. She had no recurrent wide-complex tachycardia. She recently underwent nephrectomy. She had recent admission with ventricular tachycardia. Her echocardiogram in the past showed an ejection fraction of 10 to 15% with moderate mitral and severe tricuspid regurgitation. Medications: IV amiodarone, amiodarone 400 mg p.o. twice daily, Eliquis 2.5 mg twice a day, Farxiga 5 mg daily, insulin, isosorbide mononitrate 60 mg twice a day, metoprolol tartrate 25 mg 3 times a day, midodrine, Singulair, Ranexa 500 mg twice a day, Demadex 40 mg daily, vancomycin. PHYSICAL EXAMINATION: 74-year-old female, following command, very weak, blood pressure 143/100 heart rate 60 LUNGS: Clear to auscultation HEART: Regular rate and rhythm, S1, S2. No S3. Systolic ejection murmur, 2/6 at the base ABDOMEN: Soft, nontender, no organomegaly EXTREMETIES: No edema LAB: Sodium 127, BUN 59, creatinine 3.29. pH 7.41 with a PO2 of 195. IMPRESSION: 1. Recurrent ventricular tachycardia in a patient with known history of severe ischemic cardiomyopathy 2. Status post CABG 3. Status post TAVR 4. Worsening renal function acute on chronic chronic kidney disease 5. History of diabetes 6. Generalized weakness 7. Status post recent nephrectomy PLAN: 1. Stop IV amiodarone and continue oral amiodarone 2. Continue beta-blanca 3. Stop midodrine 4. Follow blood pressure and adjust treatment as needed 5. I discussed the findings with her daughter. The prognosis is very guarded. We discussed CODE STATUS and they will let me know about their decisions. Objective - Vital Signs Vital signs: Vital Signs Temp 97.7 F 02/18/25 23:10 Pulse 59 L 02/19/25 05:00 Resp 38 H 02/19/25 05:00 BP 143/110 02/19/25 05:00 Pulse Ox 79 L 02/19/25 04:40 FiO2 Intake & Output 02/18/25 02/19/25 02/19/25 18:59 06:59 18:59 Intake Total 110 10 Output Total 1300 650 Balance -1300 -540 10 Weight 90 kg Intake: IV 70 10 Invasive Line 1 40 10 Invasive Line 2 30 Oral 40 Output: Urine 1300 650 Other: Voiding Method External Catheter External Catheter ABP, PAP, CO, CI - Last Documented Arterial Blood Pressure 125/66 - Labs CBC & Chem 7: 02/18/25 03:46 02/19/25 06:20 Labs: Abnormal Lab Results - Last 24 Hours (Table) 02/18/25 02/18/25 02/18/25 Range/Units 12:18 13:04 13:04 ABG pCO2 (35-45) mmHg ABG pO2 (83-108) mmHg ABG HCO3 (21-25) mmol/L ABG Total CO2 (19-24) mmol/L ABG O2 Saturation (94-97) % Hemoglobin (11.4-16.0) gm/dL Sodium 129 L (137-145) mmol/L Chloride 89 L (98-107) mmol/L Carbon Dioxide (22-30) mmol/L BUN 61 H (7-17) mg/dL Creatinine 2.84 H (0.52-1.04) mg/dL Glucose 138 H (74-99) mg/dL POC Glucose (mg/dL) 166 H (70-110) mg/dL Calcium 10.4 H (8.4-10.2) mg/dL Magnesium 2.4 H (1.6-2.3) mg/dL Iron 23 L (50-170) UG/DL % Saturation 6.20 L (12.00-45.00) Total Protein (PEP) 5.9 L (6.2-8.2) g/dL Vitamin D 25-Hydroxy 26.9 L (30.0-100.0) ng/mL PTH Intact (14.0-72.0) pg/mL Urine Protein (Negative) Urine Glucose (UA) (Negative) Ur Leukocyte Esterase (Negative) Urine WBC (0-5) /hpf Urine WBC Clumps (None) /hpf Urine Bacteria (None) /hpf 02/18/25 02/18/25 02/19/25 Range/Units 13:04 20:15 03:31 ABG pCO2 (35-45) mmHg ABG pO2 (83-108) mmHg ABG HCO3 (21-25) mmol/L ABG Total CO2 (19-24) mmol/L ABG O2 Saturation (94-97) % Hemoglobin (11.4-16.0) gm/dL Sodium (137-145) mmol/L Chloride (98-107) mmol/L Carbon Dioxide (22-30) mmol/L BUN (7-17) mg/dL Creatinine (0.52-1.04) mg/dL Glucose (74-99) mg/dL POC Glucose (mg/dL) 146 H 125 H (70-110) mg/dL Calcium (8.4-10.2) mg/dL Magnesium (1.6-2.3) mg/dL Iron (50-170) UG/DL % Saturation (12.00-45.00) Total Protein (PEP) (6.2-8.2) g/dL Vitamin D 25-Hydroxy (30.0-100.0) ng/mL PTH Intact 99.9 H (14.0-72.0) pg/mL Urine Protein (Negative) Urine Glucose (UA) (Negative) Ur Leukocyte Esterase (Negative) Urine WBC (0-5) /hpf Urine WBC Clumps (None) /hpf Urine Bacteria (None) /hpf 02/19/25 02/19/25 02/19/25 Range/Units 03:48 04:32 04:46 ABG pCO2 25 L (35-45) mmHg ABG pO2 195 H (83-108) mmHg ABG HCO3 16 L (21-25) mmol/L ABG Total CO2 17 L (19-24) mmol/L ABG O2 Saturation >100.0 H (94-97) % Hemoglobin 11.0 L (11.4-16.0) gm/dL Sodium (137-145) mmol/L Chloride (98-107) mmol/L Carbon Dioxide (22-30) mmol/L BUN (7-17) mg/dL Creatinine (0.52-1.04) mg/dL Glucose (74-99) mg/dL POC Glucose (mg/dL) 160 H (70-110) mg/dL Calcium (8.4-10.2) mg/dL Magnesium 2.5 H (1.6-2.3) mg/dL Iron (50-170) UG/DL % Saturation (12.00-45.00) Total Protein (PEP) (6.2-8.2) g/dL Vitamin D 25-Hydroxy (30.0-100.0) ng/mL PTH Intact (14.0-72.0) pg/mL Urine Protein (Negative) Urine Glucose (UA) (Negative) Ur Leukocyte Esterase (Negative) Urine WBC (0-5) /hpf Urine WBC Clumps (None) /hpf Urine Bacteria (None) /hpf 02/19/25 02/19/25 Range/Units 04:50 06:20 ABG pCO2 (35-45) mmHg ABG pO2 (83-108) mmHg ABG HCO3 (21-25) mmol/L ABG Total CO2 (19-24) mmol/L ABG O2 Saturation (94-97) % Hemoglobin (11.4-16.0) gm/dL Sodium 127 L (137-145) mmol/L Chloride 90 L (98-107) mmol/L Carbon Dioxide 13 L (22-30) mmol/L BUN 59 H (7-17) mg/dL Creatinine 3.29 H (0.52-1.04) mg/dL Glucose 168 H (74-99) mg/dL POC Glucose (mg/dL) (70-110) mg/dL Calcium (8.4-10.2) mg/dL Magnesium 2.4 H (1.6-2.3) mg/dL Iron (50-170) UG/DL % Saturation (12.00-45.00) Total Protein (PEP) (6.2-8.2) g/dL Vitamin D 25-Hydroxy (30.0-100.0) ng/mL PTH Intact (14.0-72.0) pg/mL Urine Protein Trace H (Negative) Urine Glucose (UA) 2+ H (Negative) Ur Leukocyte Esterase Small H (Negative) Urine WBC 12 H (0-5) /hpf Urine WBC Clumps Rare H (None) /hpf Urine Bacteria Rare H (None) /hpf
[2025-02-19 07:47] LABS: Basophils # (A) 0.04 10*3/uL (0.00-0.10); Basophils % (A) 0.3 %; Eosinophils # (A) 0.00 10*3/uL (0.04-0.35); Eosinophils % (A) 0.0 %; HCT 33.2 % (37.2-46.3); HGB 10.7 g/dL (12.0-15.0); Lymphocytes # (A) 0.15 10*3/uL (0.90-5.00); Lymphocytes % (A) 1.2 %; MCH 30.4 pg (27.0-32.0); MCHC 32.2 g/dL (32.0-37.0); MCV 94.3 fL (80.0-97.0); Monocytes # (A) 0.25 10*3/uL (0.20-1.00); Monocytes % (A) 2.0 %; Neutrophils # (A) 11.96 10*3/uL (1.80-7.70); Neutrophils % (A) 96.2 %; Platelet Count 163 10*3/uL (140-440); RBC 3.52 10*6/uL (4.10-5.20); RDW 17.8 % (11.5-14.5); WBC 12.44 10*3/uL (4.50-10.00)
[2025-02-19] MEDS: SODIUM BICARB 8.4% 50 ML SYR (1 MEQ/ML) IV STA (08:10)
[2025-02-19] MEDS: NOREPINEPHRINE 8 MG in SODIUM CHLORIDE 0.9% 250 ML IV SCH (08:25)
[2025-02-19] MEDS: SODIUM CHLORIDE 0.9% 500 ML 500 ML IV SCH (08:38)
[2025-02-19] MEDS: TORSEMIDE 20 MG TAB PO SCH (08:58)
[2025-02-19] MEDS ORDERED: AMIODARONE 450 MG in DEXTROSE 5% IN WATER 250 ML IV SCH (10:00)
[2025-02-19] MEDS: AMIODARONE 450 MG in DEXTROSE 5% IN WATER 250 ML IV SCH (10:03)
[2025-02-19] MEDS: ERTAPENEM 1 GM in SODIUM CHLORIDE 0.9% 50 ML IVPB SCH (10:11)
--- NOTE | 2025-02-19 10:26 | P.PN ---
Subjective Patient is seen in follow-up for acute kidney injury on chronic kidney disease. Patient went into V. tach last night and was subsequently transferred to the ICU. She did receive a 500 cc bolus and was started on bicarb drip this morning. Patient is now oliguric. Objective - Vital Signs Vital signs: Vital Signs Temp 97.7 F 02/18/25 23:10 Pulse 49 L 02/19/25 07:20 Resp 30 H 02/19/25 07:20 BP 101/55 02/19/25 07:20 Pulse Ox 79 L 02/19/25 04:40 FiO2 Intake & Output 02/18/25 02/19/25 02/19/25 18:59 06:59 18:59 Intake Total 110 11.684 Output Total 1300 660 10 Balance -1300 -550 1.684 Weight 90 kg Intake: IV 70 10 Invasive Line 1 40 10 Invasive Line 2 30 Intake, IV Titration 1.684 Amount Norepinephrine 8 mg In 1.684 Sodium Chloride 0.9% 250 ml @ 0.03 MCG/KG/MIN 5. 225 mls/hr IV .Q24H [facility] Rx#:[id number] Oral 40 Output: Urine 1300 660 10 Other: Voiding Method External Catheter External Catheter ABP, PAP, CO, CI - Last Documented Arterial Blood Pressure 96/43 - Exam Vital signs are stable. On vasopressor support. General: No acute distress. HEENT: On nasal cannula. LUNGS: No audible rhonchi or wheezes. HEART: Rate and Rhythm are regular. ABDOMEN: Non-tender. EXTREMITITES: 1+ edema. - Labs CBC & Chem 7: 02/19/25 06:20 02/19/25 06:20 Labs: Abnormal Lab Results - Last 24 Hours (Table) 02/18/25 02/18/25 02/18/25 Range/Units 12:18 13:04 13:04 WBC (4.50-10.00) 10*3/uL RBC (4.10-5.20) 10*6/uL Hgb (12.0-15.0) g/dL Hct (37.2-46.3) % Neutrophils # (1.80-7.70) 10*3/uL Lymphocytes # (0.90-5.00) 10*3/uL Eosinophils # (0.04-0.35) 10*3/uL ABG pCO2 (35-45) mmHg ABG pO2 (83-108) mmHg ABG HCO3 (21-25) mmol/L ABG Total CO2 (19-24) mmol/L ABG O2 Saturation (94-97) % Hemoglobin (11.4-16.0) gm/dL Sodium 129 L (137-145) mmol/L Chloride 89 L (98-107) mmol/L Carbon Dioxide (22-30) mmol/L BUN 61 H (7-17) mg/dL Creatinine 2.84 H (0.52-1.04) mg/dL Glucose 138 H (74-99) mg/dL POC Glucose (mg/dL) 166 H (70-110) mg/dL Plasma Lactic Acid Gene (0.7-2.0) mmol/L Calcium 10.4 H (8.4-10.2) mg/dL Magnesium 2.4 H (1.6-2.3) mg/dL Iron 23 L (50-170) UG/DL % Saturation 6.20 L (12.00-45.00) Total Protein (PEP) 5.9 L (6.2-8.2) g/dL Vitamin D 25-Hydroxy 26.9 L (30.0-100.0) ng/mL PTH Intact (14.0-72.0) pg/mL Urine Protein (Negative) Urine Glucose (UA) (Negative) Ur Leukocyte Esterase (Negative) Urine WBC (0-5) /hpf Urine WBC Clumps (None) /hpf Urine Bacteria (None) /hpf 02/18/25 02/18/25 02/19/25 Range/Units 13:04 20:15 03:31 WBC (4.50-10.00) 10*3/uL RBC (4.10-5.20) 10*6/uL Hgb (12.0-15.0) g/dL Hct (37.2-46.3) % Neutrophils # (1.80-7.70) 10*3/uL Lymphocytes # (0.90-5.00) 10*3/uL Eosinophils # (0.04-0.35) 10*3/uL ABG pCO2 (35-45) mmHg ABG pO2 (83-108) mmHg ABG HCO3 (21-25) mmol/L ABG Total CO2 (19-24) mmol/L ABG O2 Saturation (94-97) % Hemoglobin (11.4-16.0) gm/dL Sodium (137-145) mmol/L Chloride (98-107) mmol/L Carbon Dioxide (22-30) mmol/L BUN (7-17) mg/dL Creatinine (0.52-1.04) mg/dL Glucose (74-99) mg/dL POC Glucose (mg/dL) 146 H 125 H (70-110) mg/dL Plasma Lactic Acid Gene (0.7-2.0) mmol/L Calcium (8.4-10.2) mg/dL Magnesium (1.6-2.3) mg/dL Iron (50-170) UG/DL % Saturation (12.00-45.00) Total Protein (PEP) (6.2-8.2) g/dL Vitamin D 25-Hydroxy (30.0-100.0) ng/mL PTH Intact 99.9 H (14.0-72.0) pg/mL Urine Protein (Negative) Urine Glucose (UA) (Negative) Ur Leukocyte Esterase (Negative) Urine WBC (0-5) /hpf Urine WBC Clumps (None) /hpf Urine Bacteria (None) /hpf 02/19/25 02/19/25 02/19/25 Range/Units 03:48 04:32 04:46 WBC (4.50-10.00) 10*3/uL RBC (4.10-5.20) 10*6/uL Hgb (12.0-15.0) g/dL Hct (37.2-46.3) % Neutrophils # (1.80-7.70) 10*3/uL Lymphocytes # (0.90-5.00) 10*3/uL Eosinophils # (0.04-0.35) 10*3/uL ABG pCO2 25 L (35-45) mmHg ABG pO2 195 H (83-108) mmHg ABG HCO3 16 L (21-25) mmol/L ABG Total CO2 17 L (19-24) mmol/L ABG O2 Saturation >100.0 H (94-97) % Hemoglobin 11.0 L (11.4-16.0) gm/dL Sodium (137-145) mmol/L Chloride (98-107) mmol/L Carbon Dioxide (22-30) mmol/L BUN (7-17) mg/dL Creatinine (0.52-1.04) mg/dL Glucose (74-99) mg/dL POC Glucose (mg/dL) 160 H (70-110) mg/dL Plasma Lactic Acid Gene (0.7-2.0) mmol/L Calcium (8.4-10.2) mg/dL Magnesium 2.5 H (1.6-2.3) mg/dL Iron (50-170) UG/DL % Saturation (12.00-45.00) Total Protein (PEP) (6.2-8.2) g/dL Vitamin D 25-Hydroxy (30.0-100.0) ng/mL PTH Intact (14.0-72.0) pg/mL Urine Protein (Negative) Urine Glucose (UA) (Negative) Ur Leukocyte Esterase (Negative) Urine WBC (0-5) /hpf Urine WBC Clumps (None) /hpf Urine Bacteria (None) /hpf 02/19/25 02/19/25 02/19/25 Range/Units 04:50 06:20 06:20 WBC (4.50-10.00) 10*3/uL RBC (4.10-5.20) 10*6/uL Hgb (12.0-15.0) g/dL Hct (37.2-46.3) % Neutrophils # (1.80-7.70) 10*3/uL Lymphocytes # (0.90-5.00) 10*3/uL Eosinophils # (0.04-0.35) 10*3/uL ABG pCO2 (35-45) mmHg ABG pO2 (83-108) mmHg ABG HCO3 (21-25) mmol/L ABG Total CO2 (19-24) mmol/L ABG O2 Saturation (94-97) % Hemoglobin (11.4-16.0) gm/dL Sodium 127 L (137-145) mmol/L Chloride 90 L (98-107) mmol/L Carbon Dioxide 13 L (22-30) mmol/L BUN 59 H (7-17) mg/dL Creatinine 3.29 H (0.52-1.04) mg/dL Glucose 168 H (74-99) mg/dL POC Glucose (mg/dL) (70-110) mg/dL Plasma Lactic Acid Gene 10.4 H* (0.7-2.0) mmol/L Calcium (8.4-10.2) mg/dL Magnesium 2.4 H (1.6-2.3) mg/dL Iron (50-170) UG/DL % Saturation (12.00-45.00) Total Protein (PEP) (6.2-8.2) g/dL Vitamin D 25-Hydroxy (30.0-100.0) ng/mL PTH Intact (14.0-72.0) pg/mL Urine Protein Trace H (Negative) Urine Glucose (UA) 2+ H (Negative) Ur Leukocyte Esterase Small H (Negative) Urine WBC 12 H (0-5) /hpf Urine WBC Clumps Rare H (None) /hpf Urine Bacteria Rare H (None) /hpf 02/19/25 Range/Units 06:20 WBC 12.44 H (4.50-10.00) 10*3/uL RBC 3.52 L (4.10-5.20) 10*6/uL Hgb 10.7 L (12.0-15.0) g/dL Hct 33.2 L (37.2-46.3) % Neutrophils # 11.96 H (1.80-7.70) 10*3/uL Lymphocytes # 0.15 L (0.90-5.00) 10*3/uL Eosinophils # 0.00 L (0.04-0.35) 10*3/uL ABG pCO2 (35-45) mmHg ABG pO2 (83-108) mmHg ABG HCO3 (21-25) mmol/L ABG Total CO2 (19-24) mmol/L ABG O2 Saturation (94-97) % Hemoglobin (11.4-16.0) gm/dL Sodium (137-145) mmol/L Chloride (98-107) mmol/L Carbon Dioxide (22-30) mmol/L BUN (7-17) mg/dL Creatinine (0.52-1.04) mg/dL Glucose (74-99) mg/dL POC Glucose (mg/dL) (70-110) mg/dL Plasma Lactic Acid Gene (0.7-2.0) mmol/L Calcium (8.4-10.2) mg/dL Magnesium (1.6-2.3) mg/dL Iron (50-170) UG/DL % Saturation (12.00-45.00) Total Protein (PEP) (6.2-8.2) g/dL Vitamin D 25-Hydroxy (30.0-100.0) ng/mL PTH Intact (14.0-72.0) pg/mL Urine Protein (Negative) Urine Glucose (UA) (Negative) Ur Leukocyte Esterase (Negative) Urine WBC (0-5) /hpf Urine WBC Clumps (None) /hpf Urine Bacteria (None) /hpf Assessment and Plan Plan: Assessment: 1. Acute kidney injury secondary to hemodynamic ATN and cardiorenal syndrome. Renal function worse. Creatinine 3.29 today. Nonoliguric. 2. Chronic kidney disease stage IV (eGFR of 18) with baseline creatinine 1.7-2 secondary to solitary right kidney. 3. Volume overload, improved with diuresis. 4. Hyponatremia, hypervolemic. 5. V. tach maintained on amiodarone drip. 6. Hypercalcemia. Improved. PTH elevated at 99.9 and vitamin D level 26.9. Will need to consider parathyroid scan in the near future once stable medically. 7. Hypokalemia from diuresis. Replaced. Better. 8. Acute on chronic systolic CHF ejection fraction of 10 to 15%. 9. Shock maintained on Levophed. 10. Metabolic acidosis secondary to acute kidney injury and lactic acidosis. Plan: Hold off on diuretics today. Wean Levophed. Maintain bicarb drip for now. Also received 2 A of bicarb IV push this morning. Continue to monitor renal function and urine output. Follow-up pending workup for hypercalcemia. Case discussed with patient's daughter. Prognosis guarded. Poor candidate for renal replacement therapy due to severely impaired ejection fraction.
[2025-02-19] MEDS: DEXTROSE 5% IN WATER 1,000 ML with SODIUM BICARB (1 MEQ/ML) 150 ML IV SCH (11:01)
[2025-02-19 12:22] LABS: Glucose,Whole Blood 110 mg/dL (70-110)
[2025-02-19 12:56] LABS: African American GFR (CKD) 15 (>60 ml/min/1.73 sqM); Albumin 3.3 g/dL (3.5-5.0); Alkaline Phosphatase 98 U/L (38-126); Anion Gap 19 mmol/L; Blood Urea Nitrogen 64 mg/dL (7-17); Calcium 8.8 mg/dL (8.4-10.2); Carbon Dioxide 18 mmol/L (22-30); Chloride 93 mmol/L (98-107); Glucose 101 mg/dL (74-99); Non-African American GFR(CKD) 13 (>60 ml/min/1.73 sqM); Potassium 4.2 mmol/L (3.5-5.1); Sodium 130 mmol/L (137-145); Total Protein 5.4 g/dL (6.3-8.2)
[2025-02-19] MEDS ORDERED: IOPAMIDOL CONTRAST (ORAL USE) VIAL PO PRN (13:04)
[2025-02-19 13:30] LABS: ALT 2456 U/L (4-34); AST 5905 U/L (14-36)
--- NOTE | 2025-02-19 14:40 | P.PN ---
Subjective History of present illness; 74-year-old female with a significant past medical history of systolic CHF w/ EF 10-15% A-fib CAD, TAVR, nephrectomy and drug- induced liver injury, presents for weakness and chest pain. She has been at [facility] for rehab since being discharged 02/08/2025. On previous hospitalization patient was admitted for suspected drug-induced developed liver injury with evidence of elevated LFTs, elevated creatinine, and diffuse +2 pitting edema in all extremities. She was admitted for diuresis as well as medication management post Drug induced liver injury. At time of discharge, LFTs and creatinine had returned to normal range. Since admission to rehab, she reports she has been progressively feeling weaker developed chest pain yesterday. She reports symptoms are similar to last admission, she reports edema and fatigue not as severe as previous admission. She denies fever chills dizziness abdominal pain changes in stool dysuria polyuria hematuria. She endorses chest pressure and worsening weakness. In the ER she got an EKG which revealed sinus bradycardia, she also received a CT abdomen and pelvis that revealed no acute changes. Chest x-ray reveals cardiomegaly mild pulmonary edema without effusion. Labs in the ER revealed Cr 2.69, BUN 61, NA 129 K5.9 alk phos 135 ALT 72 BNP 9300 troponin within normal r tona CT A scan was wanted in the ER due to elevated D-dimer (3.07) but deferred due to kidney function, VQ ordered instead. Returned negative Patient was admitted to the hospital for WENDY and acute on chronic systolic heart failure with consults to cardiology and nephrology 02/17/2025 patient seen at bedside she is still weak however breathing easier. 02/18/2025: Patient seen and examined at bedside patient is extremely disoriented she was moved from observation to cardiac floor was extremely unclear how she arrived there. Patient was reoriented but extremely anxious. Patient reports she is feeling awful and extremely weak, unclear if due to stress or worsening condition. Patient is extremely anxious and confused difficult to take history 02/19/2025: Rapid response was called for sustained wide QRS, hypotension, fever, hypoxic respiratory failure. Patient was placed on nonrebreather at 15 L as well as amiodarone drip, QRS shortened appropriately. blood pressure was not recorded on noninvasive blood pressure despite IV fluid bolus. Radial pulse was still palpable, arterial line was placed and Levophed was initiated. Patient was upgraded to the ICU due to need for pressors. Central line was placed and patient is currently on 0.04 of levo. Blood pressure currently stable. Daughters present at bedside, patient tracks and response to talking with head movements however cannot speak. history received from family and ICU team. Labs today: NA 127 K5.0 CO2 13 BUN 5 9 CR 3.29 GLU 168 Lactic acid 10.4 MG 2.4 WBC 12.44 Hgb 10.7 Plt 163 ABG: pH: 7.41 CO2 25 PO2 195 HCO3 16 CO2 17 UA within expected range REVIEW OF SYSTEMS: As stated above in HPI. The rest of the 14-point review of systems is negative. PHYSICAL EXAMINATION: GENERAL: Laying in bed with extreme weakness able to follow commands unable to verbalize. Central line in place right side HEENT: Pupils are round and equally reacting to light. EOMI. No scleral icterus. No conjunctival pallor. Normocephalic, atraumatic. CARDIOVASCULAR: S1 and S2 present. No S3 PULMONARY: Crackles in lower lung field bilaterally with decreased air entry bilaterally ABDOMEN: Mildly distended patient winces to deep palpation MUSCULOSKELETAL: No joint swelling or deformity. EXTREMITIES: Minimal edema to midshin NEUROLOGICAL: Gross neurological examination did not reveal any focal deficits. SKIN: No rashes. Assessment and Plan #Wide-complex tachycardia resolved with amiodarone #Hypotension requiring pressors likely secondary to above #Acute on chronic systolic heart failure (EF 10-15% per echo 02/03) #Chest pain #Chest pain likely secondary to CHF exacerbation Patient upgraded to ICU currently on 0.05 of Levophed without supplemental oxygen Central line in place Amio drip was initiated, convert to p.o. per cardiology Continue beta-blanca, discontinue midodrine Titrate Levophed down Hold diuretics - Monitor CMP, magnesium Cardiology continues to follow #Acute hypoxic respiratory failure secondary to above #Lactic acidosis possibly due to sepsis or malperfusion #Metabolic acidosis with compensated respiratory alkalosis secondary to above #Acute leukocytosis with fever (16.24> 12.44) Empiric ceftriaxone + vancomycin empiric coverage for suspected sepsis Add additional peripheral IV Blood cultures x 2, repeat lactic acid, -Monitor CBC Consult to infectious disease for evaluation of fever, hypotension, lactic acidosis Consider CT abdomen for evaluation of pain + fever C x-ray ordered and negative for acute pathology reveal central line in place UA with reflex: Negative for acute infection IV bicarb for management of metabolic acidosis in case of end-stage kidney di sease #WENDY likely secondary to polypharmacy or cardiorenal syndrome (increased 3.41 today) # Hyponatremia secondary to polypharmacy #History of nephrectomy -Immunofixation, protein electrophoresis, and PTH to assess cause of kidney failure (pending) -Hold fluid restriction until pressors titrated down Nephrology continues to follow #Severe transaminitis likely secondary to congestion or malperfusion #Abdominal pains likely secondary to above #History of drug-induced liver injury Continue to monitor CMP daily Hold hepatotoxic medications Continue fluid resuscitation and pressors for adequate perfusion, titrate as tolerated #Hypertension (currently in-active) Continue home medication #T2DM Basal Lantus Humalog 3 times daily with meals Sliding scale insulin #Anxiety depression Continue home medication #Pain Multimodal pain management #Gout Continue home medication #Guarded prognosis Advanced directives discussed with family still full code DVT ppx: SCDs GI ppx: Protonix CODE STATUS: Full code Dispo: Pending clinical course Objective - Vital Signs Vital signs: Vital Signs Temp 97.7 F 02/18/25 23:10 Pulse 49 L 02/19/25 07:20 Resp 30 H 02/19/25 07:20 BP 101/55 02/19/25 07:20 Pulse Ox 79 L 02/19/25 04:40 FiO2 Intake & Output 02/18/25 02/19/25 02/19/25 18:59 06:59 18:59 Intake Total 110 11.684 Output Total 1300 660 10 Balance -1300 -550 1.684 Weight 90 kg Intake: IV 70 10 Invasive Line 1 40 10 Invasive Line 2 30 Intake, IV Titration 1.684 Amount Norepinephrine 8 mg In 1.684 Sodium Chloride 0.9% 250 ml @ 0.03 MCG/KG/MIN 5. 225 mls/hr IV .Q24H CORIE Rx#:[id number] Oral 40 Output: Urine 1300 660 10 Other: Voiding Method External Catheter External Catheter ABP, PAP, CO, CI - Last Documented Arterial Blood Pressure 96/43 - Labs CBC & Chem 7: 02/19/25 06:20 02/19/25 12:32 Labs: Abnormal Lab Results - Last 24 Hours (Table) 02/18/25 02/18/25 02/18/25 Range/Units 12:18 13:04 13:04 WBC (4.50-10.00) 10*3/uL RBC (4.10-5.20) 10*6/uL Hgb (12.0-15.0) g/dL Hct (37.2-46.3) % ABG pCO2 (35-45) mmHg ABG pO2 (83-108) mmHg ABG HCO3 (21-25) mmol/L ABG Total CO2 (19-24) mmol/L ABG O2 Saturation (94-97) % Hemoglobin (11.4-16.0) gm/dL Sodium 129 L (137-145) mmol/L Chloride 89 L (98-107) mmol/L Carbon Dioxide (22-30) mmol/L BUN 61 H (7-17) mg/dL Creatinine 2.84 H (0.52-1.04) mg/dL Glucose 138 H (74-99) mg/dL POC Glucose (mg/dL) 166 H (70-110) mg/dL Plasma Lactic Acid Gene (0.7-2.0) mmol/L Calcium 10.4 H (8.4-10.2) mg/dL Magnesium 2.4 H (1.6-2.3) mg/dL Iron 23 L (50-170) UG/DL % Saturation 6.20 L (12.00-45.00) Total Protein (PEP) 5.9 L (6.2-8.2) g/dL Vitamin D 25-Hydroxy 26.9 L (30.0-100.0) ng/mL PTH Intact (14.0-72.0) pg/mL Urine Protein (Negative) Urine Glucose (UA) (Negative) Ur Leukocyte Esterase (Negative) Urine WBC (0-5) /hpf Urine WBC Clumps (None) /hpf Urine Bacteria (None) /hpf 02/18/25 02/18/25 02/19/25 Range/Units 13:04 20:15 03:31 WBC (4.50-10.00) 10*3/uL RBC (4.10-5.20) 10*6/uL Hgb (12.0-15.0) g/dL Hct (37.2-46.3) % ABG pCO2 (35-45) mmHg ABG pO2 (83-108) mmHg ABG HCO3 (21-25) mmol/L ABG Total CO2 (19-24) mmol/L ABG O2 Saturation (94-97) % Hemoglobin (11.4-16.0) gm/dL Sodium (137-145) mmol/L Chloride (98-107) mmol/L Carbon Dioxide (22-30) mmol/L BUN (7-17) mg/dL Creatinine (0.52-1.04) mg/dL Glucose (74-99) mg/dL POC Glucose (mg/dL) 146 H 125 H (70-110) mg/dL Plasma Lactic Acid Gene (0.7-2.0) mmol/L Calcium (8.4-10.2) mg/dL Magnesium (1.6-2.3) mg/dL Iron (50-170) UG/DL % Saturation (12.00-45.00) Total Protein (PEP) (6.2-8.2) g/dL Vitamin D 25-Hydroxy (30.0-100.0) ng/mL PTH Intact 99.9 H (14.0-72.0) pg/mL Urine Protein (Negative) Urine Glucose (UA) (Negative) Ur Leukocyte Esterase (Negative) Urine WBC (0-5) /hpf Urine WBC Clumps (None) /hpf Urine Bacteria (None) /hpf 02/19/25 02/19/25 02/19/25 Range/Units 03:48 04:32 04:46 WBC (4.50-10.00) 10*3/uL RBC (4.10-5.20) 10*6/uL Hgb (12.0-15.0) g/dL Hct (37.2-46.3) % ABG pCO2 25 L (35-45) mmHg ABG pO2 195 H (83-108) mmHg ABG HCO3 16 L (21-25) mmol/L ABG Total CO2 17 L (19-24) mmol/L ABG O2 Saturation >100.0 H (94-97) % Hemoglobin 11.0 L (11.4-16.0) gm/dL Sodium (137-145) mmol/L Chloride (98-107) mmol/L Carbon Dioxide (22-30) mmol/L BUN (7-17) mg/dL Creatinine (0.52-1.04) mg/dL Glucose (74-99) mg/dL POC Glucose (mg/dL) 160 H (70-110) mg/dL Plasma Lactic Acid Gene (0.7-2.0) mmol/L Calcium (8.4-10.2) mg/dL Magnesium 2.5 H (1.6-2.3) mg/dL Iron (50-170) UG/DL % Saturation (12.00-45.00) Total Protein (PEP) (6.2-8.2) g/dL Vitamin D 25-Hydroxy (30.0-100.0) ng/mL PTH Intact (14.0-72.0) pg/mL Urine Protein (Negative) Urine Glucose (UA) (Negative) Ur Leukocyte Esterase (Negative) Urine WBC (0-5) /hpf Urine WBC Clumps (None) /hpf Urine Bacteria (None) /hpf 02/19/25 02/19/25 02/19/25 Range/Units 04:50 06:20 06:20 WBC (4.50-10.00) 10*3/uL RBC (4.10-5.20) 10*6/uL Hgb (12.0-15.0) g/dL Hct (37.2-46.3) % ABG pCO2 (35-45) mmHg ABG pO2 (83-108) mmHg ABG HCO3 (21-25) mmol/L ABG Total CO2 (19-24) mmol/L ABG O2 Saturation (94-97) % Hemoglobin (11.4-16.0) gm/dL Sodium 127 L (137-145) mmol/L Chloride 90 L (98-107) mmol/L Carbon Dioxide 13 L (22-30) mmol/L BUN 59 H (7-17) mg/dL Creatinine 3.29 H (0.52-1.04) mg/dL Glucose 168 H (74-99) mg/dL POC Glucose (mg/dL) (70-110) mg/dL Plasma Lactic Acid Gene 10.4 H* (0.7-2.0) mmol/L Calcium (8.4-10.2) mg/dL Magnesium 2.4 H (1.6-2.3) mg/dL Iron (50-170) UG/DL % Saturation (12.00-45.00) Total Protein (PEP) (6.2-8.2) g/dL Vitamin D 25-Hydroxy (30.0-100.0) ng/mL PTH Intact (14.0-72.0) pg/mL Urine Protein Trace H (Negative) Urine Glucose (UA) 2+ H (Negative) Ur Leukocyte Esterase Small H (Negative) Urine WBC 12 H (0-5) /hpf Urine WBC Clumps Rare H (None) /hpf Urine Bacteria Rare H (None) /hpf 02/19/25 Range/Units 06:20 WBC 12.44 H (4.50-10.00) 10*3/uL RBC 3.52 L (4.10-5.20) 10*6/uL Hgb 10.7 L (12.0-15.0) g/dL Hct 33.2 L (37.2-46.3) % ABG pCO2 (35-45) mmHg ABG pO2 (83-108) mmHg ABG HCO3 (21-25) mmol/L ABG Total CO2 (19-24) mmol/L ABG O2 Saturation (94-97) % Hemoglobin (11.4-16.0) gm/dL Sodium (137-145) mmol/L Chloride (98-107) mmol/L Carbon Dioxide (22-30) mmol/L BUN (7-17) mg/dL Creatinine (0.52-1.04) mg/dL Glucose (74-99) mg/dL POC Glucose (mg/dL) (70-110) mg/dL Plasma Lactic Acid Gene (0.7-2.0) mmol/L Calcium (8.4-10.2) mg/dL Magnesium (1.6-2.3) mg/dL Iron (50-170) UG/DL % Saturation (12.00-45.00) Total Protein (PEP) (6.2-8.2) g/dL Vitamin D 25-Hydroxy (30.0-100.0) ng/mL PTH Intact (14.0-72.0) pg/mL Urine Protein (Negative) Urine Glucose (UA) (Negative) Ur Leukocyte Esterase (Negative) Urine WBC (0-5) /hpf Urine WBC Clumps (None) /hpf Urine Bacteria (None) /hpf
--- NOTE | 2025-02-19 15:45 | CT ---
EXAMINATION TYPE: CT abdomen pelvis wo con CT DLP: 1259.4 mGycm, Automated exposure control for dose reduction was used. DATE OF EXAM: 02/19/2025 3:19 PM COMPARISON: CT abdomen pelvis 02/15/2025 CLINICAL INDICATION:Female, 74 years old with history of abd tenderness, sepsis; Abdominal tenderness , sepsis TECHNIQUE: Standard CT of the abdomen and pelvis without IV or oral contrast. Lack of IV or oral co ntrast limits evaluation of solid and hollow organ viscera. Coronal and sagittal reformats were perfo rmed. FINDINGS: LOWER CHEST: Small left and trace right pleural effusions with associated compressive atelectasis. Ca rdiomegaly with aortic valve replacement. Coronary artery calcifications. Sternotomy wires. ABDOMEN LIVER: Enlarged measuring 20.7 cm in CC dimension. No focal lesion within the limitations of a noncon trast exam. GALLBLADDER AND BILE DUCTS: Layering increased densities within the lumen consistent with gallstones are present. No biliary duct dilatation. PANCREAS: Moderate atrophic appearance. SPLEEN: Unremarkable noncontrast appearance. ADRENAL GLANDS: Unremarkable noncontrast appearance.. KIDNEYS AND URETERS: The left kidney surgically absent. No suspicious soft tissue within the surgical bed. There is some small amount of fluid within the surgical bed. No evidence of right-sided hydrone phrosis or renal calculus. No hydroureter. Similar small right perinephric fluid. PELVIS BLADDER: Nondistended with Alford catheter in place. Perivesical fat stranding identified. REPRODUCTIVE: Anteverted uterus. Left-sided tube ligation clip identified. Migrated right sided tubal ligation clip into the pelvic cul-de-sac. ABDOMEN & PELVIS STOMACH AND BOWEL: Small hiatal hernia suggested. No focal bowel wall thickening or surrounding infla mmatory changes definitively identified. No evidence of bowel obstruction. PERITONEUM: No evidence of pneumoperitoneum. Small amount of free fluid in the anterior pelvis. No de finitive organization within limits of a noncontrast exam. VASCULATURE: Moderate atherosclerotic calcifications are present throughout the abdominal aorta and i ts branches. No evidence of aortic aneurysm. MUSCULOSKELETAL: No acute osseous abnormalities. Severe disc degeneration changes are present through out the thoracolumbar spine. Postsurgical changes at L4-L5 and S1 hardware appears intact. Degenerati on changes worse at the adjoining endplates of L1 and L2. LYMPH NODES: No gross evidence for lymphadenopathy. SOFT TISSUE/ABDOMINAL WALL: Decreasing subcutaneous gas within the soft tissues compatible with recen t surgery. Mild diffuse anasarca. No organized fluid collection. IMPRESSION: 1. Postsurgical changes of left nephrectomy with small amount of free fluid in the anterior pelvis. No definitive evidence for organization to suggest abscess at this time within limitations of a nonco ntrast exam. 2. Decompressed urinary bladder with Alford catheter in place. There is perivesical fat stranding. Co rrelate with urinalysis for cystitis. 3. Similar small left and trace right pleural effusions with associated atelectasis. 4. Mild hepatomegaly. 5. Cholelithiasis. [facility], , 02/19/2025 3:43 PM
[2025-02-19 17:10] LABS: Glucose,Whole Blood 130 mg/dL (70-110)
--- NOTE | 2025-02-19 22:20 | P.CONS ---
History of Present Illness - Reason for Consult Consult date: 02/19/25 Fever hypotension, lactic acidosis Requesting physician: Jin Shelby - Chief Complaint Weakness x few days - History of Present Illness Patient is a 74-year-old female with a past medical history significant for Asthma, Coronary Artery Disease (CAD), Chest Pain / Angina, Heart Failure, Diabetes Mellitus, GERD/Reflux, Hyperlipidemia, Hypertension, Myocardial Infarction (CO), Osteoarthritis (OA), Pneumonia, Renal Disease, Syncope recent admission to the hospital with left-sided infected kidney in this patient culture positive for corynebacterium stratum subsequently complete antibiotic therapy and patient is status post left nephrectomy patient has not been brought back to the hospital 4 days ago on 02/15/2025 complaining of feeling weak patient was complaining of nausea and did have multiple episodes of nonbloody nonbilious emesis did have soft bowel movement and no significant abdominal pain with the send the patient was evaluated on presentation to the hospital patient was afebrile however she did spike a fever of 102.7 F last evening, patient was mildly tachycardic and hypotensive requiring pressor support she was mildly hypoxic currently on 6 L nasal cannula oxygen also noticed to have a elevated lactic acid elevated white count also have elevated creatinine urine has been negative initially mildly positive today SARS-CoV-2 testing was negative patient did have abdominal pelvis CT on admission that was done without any contrast did show some postsurgical changes with left nephrectomy small amount of free fluid in the abdomen with small left effusion no organizing fluid collection no bowel obstruction chest x-ray from this mor bryant no acute cardiopulmonary disease process infectious disease was consulted today concerning for fever hypotension lactacidosis, patient is currently lethargic but Arousable but nonspecific denies any chest pain shortness of breath significant cough has been complain some abdominal pain as well as tenderness unable to quantify it any further with associated nausea no further vomiting or diarrhea reported by the nursing staff Review of Systems Positive point and negatives has been mentioned in the HPI, complete review of systems was performed and all other systems are negative Past Medical History Past Medical History: Asthma, Coronary Artery Disease (CAD), Chest Pain / Angina, Heart Failure, Diabetes Mellitus, GERD/Reflux, Hyperlipidemia, Hypertension, Myocardial Infarction (CO), Osteoarthritis (OA), Pneumonia, Renal Disease, Syncope Additional Past Medical History / Comment(s): CO 1997, 2003, 2007, CARDIAC ARREST 2016,GOUT, SPINAL STENOSIS, BRONCHITIS, CONSTIPATION, HX OF DIZZINESS & FALLS, AORTIC STENOSIS, KIDNEY FAILURE STAGE 3-B, PACER/AICD, Fatigue, very SOB w/exertion recently. Aortic Valve Replacement Dec, 2019. 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 Date of Last Stent Placement:: UNKNOWN Type of Cardiac Device: AICD Device Placement Date:: 10-05-16 chest [employer] Past Psychological History: Anxiety, Depression Additional Psychological History / Comment(s): . Smoking Status: Never smoker Past Alcohol Use History: Occasional Past Drug Use History: None Reported - Past Family History Mother Family Medical History: No Reported History Additional Family Medical History / Comment(s): . Medications and Allergies Home Medications Medication Instructions Recorded Confirmed Type Famotidine [Pepcid] 20 mg PO HS 06/20/16 02/16/25 History Montelukast [Singulair] 10 mg PO HS 06/20/16 02/16/25 History Insulin Glargine,Hum.rec.anlog 10 units SQ BID 02/21/23 02/16/25 History [Lantus Solostar Pen] Insulin Lispro [humaLOG Kwikpen] See Protocol SQ AC-TID 02/21/23 02/16/25 History Ranolazine [Ranexa] 500 mg PO BID@0800,1700 02/21/23 02/16/25 History Nystatin 100,000 Unit/gm Powd 1 applic TOPICAL BID 10/18/24 02/16/25 History [Mycostatin Powder] Acetaminophen Tab [Tylenol] 1,000 mg PO BID@0800,1700 01/05/25 02/16/25 History Acetaminophen Tab [Tylenol] 1,000 mg PO Q6HR PRN 01/05/25 02/16/25 History Nystatin 100,000Unit/gm Cream 1 applic TOPICAL BID 01/05/25 02/16/25 History [Mycostatin Cream] polyethylene glycoL 3350 [Miralax] 17 gm PO HS #30 packet 01/15/25 02/16/25 Rx FLUoxetine HCL [PROzac] 20 mg PO DAILY 01/31/25 02/16/25 History Lidocaine 5% Patch [Lidoderm 5% 1 patch TOPICAL DAILY 01/31/25 02/16/25 History Patch] Amiodarone [Cordarone] 200 mg PO DAILY 14 Days #14 tab 02/08/25 02/16/25 Rx HYDROcodone/APAP 5-325MG [Thaxton 1 tab PO Q6HR PRN #4 tab 02/08/25 02/16/25 Rx 5-325] Furosemide [Lasix] 40 mg PO BID@0800,1400 02/16/25 02/16/25 History Glucerna Shake 237 ml PO DAILY 02/16/25 02/16/25 History Isosorbide Mononitrate ER [Imdur] 60 mg PO BID@0800,1700 02/16/25 02/16/25 History Magnesium Hydroxide [Milk of 7,200 mg PO DAILY PRN 02/16/25 02/16/25 History Magnesia Concentrate] Metoprolol Tartrate [Lopressor] 50 mg PO BID@0800,1700 02/16/25 02/16/25 History Na Phos,M-B/Na Phos,Di-Ba [Fleet 133 ml RECTAL DAILY PRN 02/16/25 02/16/25 History Adult] Ondansetron [Zofran] 4 mg PO Q6H PRN 02/16/25 02/16/25 History Protect External Ointment 1 applic TOPICAL BID 02/16/25 02/16/25 History Spironolactone 25 mg PO DAILY 02/16/25 02/16/25 History allopurinoL [Zyloprim] 50 mg PO HS 02/16/25 02/16/25 History bisacodyL [Dulcolax] 10 mg RECTAL DAILY PRN 02/16/25 02/16/25 History hydrALAZINE HCL [Apresoline] 25 mg PO TID@0600,1400,2200 02/16/25 02/16/25 History Allergies Allergy/AdvReac Type Severity Reaction Status Date / Time amoxicillin [From Augmentin] Allergy Anaphylaxis Verified 02/16/25 08:55 /rash/hives cefprozil [From Cefzil] Allergy Anaphylaxis Verified 02/16/25 08:55 /rash/hives clavulanic acid Allergy Anaphylaxis Verified 02/16/25 08:55 [From Augmentin] /rash/hives sulfamethoxazole Allergy Anaphylaxis Verified 02/16/25 08:55 [From Bactrim] /rash/hives trimethoprim [From Bactrim] Allergy Anaphylaxis Verified 02/16/25 08:55 /rash/hives Physical Exam Vitals: Vital Signs Temp Pulse Pulse Resp BP BP BP 02/19/25 10:20 89 33 H 63 02/19/25 10:10 88 32 H 63 02/19/25 10:00 88 30 H 02/19/25 09:50 88 30 H 02/19/25 09:40 88 30 H 02/19/25 09:30 52 L 30 H 92/56 02/19/25 09:20 50 L 28 H 92/56 02/19/25 09:10 51 L 31 H 114/80 02/19/25 09:00 51 L 30 H 114/80 02/19/25 08:50 51 L 28 H 114/80 02/19/25 08:40 52 L 28 H 114/80 02/19/25 08:30 53 L 31 H 114/80 02/19/25 08:20 56 L 20 69/30 02/19/25 08:10 50 L 20 69/30 02/19/25 08:00 98.2 F 50 L 20 101/55 02/19/25 07:50 50 L 20 101/55 02/19/25 07:40 50 L 20 02/19/25 07:30 49 L 20 101/55 02/19/25 07:20 49 L 30 H 101/55 02/19/25 07:10 50 L 29 H 101/55 02/19/25 07:00 51 L 26 H 101/55 02/19/25 06:50 51 L 23 101/55 02/19/25 06:40 52 L 30 H 101/55 02/19/25 06:30 54 L 31 H 101/55 02/19/25 06:20 52 L 23 101/55 02/19/25 06:10 51 L 19 101/55 02/19/25 06:00 52 L 30 H 101/55 02/19/25 05:50 52 L 24 101/55 02/19/25 05:40 52 L 23 101/55 02/19/25 05:30 54 L 26 H 143/110 02/19/25 05:20 55 L 29 H 143/110 02/19/25 05:10 56 L 39 H 143/110 02/19/25 05:00 59 L 38 H 143/110 02/19/25 04:50 58 L 39 H 143/110 02/19/25 04:40 60 38 H 02/19/25 04:35 32 H 02/19/25 02:37 101/71 02/19/25 01:08 93/64 02/19/25 00:29 77/36 02/19/25 00:11 105/63 02/18/25 23:40 86/53 02/18/25 23:10 97.7 F 76 16 75/46 02/18/25 22:43 78/46 02/18/25 22:37 78/55 02/18/25 22:29 100/65 02/18/25 22:22 87/54 02/18/25 22:14 79/54 74/47 02/18/25 20:20 69/49 02/18/25 19:36 102.7 F H 79 16 101/62 02/18/25 16:00 98 F 82 16 96/55 02/18/25 12:00 98 F 101 H 16 99/66 Pulse Ox 02/19/25 10:20 02/19/25 10:10 02/19/25 10:00 02/19/25 09:50 02/19/25 09:40 02/19/25 09:30 02/19/25 09:20 02/19/25 09:10 02/19/25 09:00 02/19/25 08:50 02/19/25 08:40 02/19/25 08:30 02/19/25 08:20 02/19/25 08:10 02/19/25 08:00 02/19/25 07:50 02/19/25 07:40 02/19/25 07:30 02/19/25 07:20 02/19/25 07:10 02/19/25 07:00 02/19/25 06:50 02/19/25 06:40 02/19/25 06:30 02/19/25 06:20 02/19/25 06:10 02/19/25 06:00 02/19/25 05:50 02/19/25 05:40 02/19/25 05:30 02/19/25 05:20 02/19/25 05:10 02/19/25 05:00 02/19/25 04:50 02/19/25 04:40 79 L 02/19/25 04:35 02/19/25 02:37 02/19/25 01:08 02/19/25 00:29 02/19/25 00:11 02/18/25 23:40 02/18/25 23:10 96 02/18/25 22:43 02/18/25 22:37 02/18/25 22:29 02/18/25 22:22 02/18/25 22:14 02/18/25 20:20 02/18/25 19:36 98 02/18/25 16:00 99 02/18/25 12:00 99 Intake and Output 02/18/25 02/19/25 02/19/25 22:59 06:59 14:59 Intake Total 70 40 171.684 Output Total 550 110 20 Balance -480 -70 151.684 Intake: IV 30 40 170 Invasive Line 1 20 20 10 Invasive Line 2 10 20 10 Sodium Chloride 0.9% 500 150 ml 500 ml @ 75 mls/hr IV .Q6H40M CORIE Rx#:[id number] Intake, IV Titration 1.684 Amount Norepinephrine 8 mg In 1.684 Sodium Chloride 0.9% 250 ml @ 0.03 MCG/KG/MIN 5. 225 mls/hr IV .Q24H CORIE Rx#:[id number] Oral 40 Output: Urine 550 110 20 Other: Voiding Method External Catheter External Catheter Weight 90 kg ABP, PAP, CO, CI - Last 8 Hours Arterial Blood Pressure 110/59 Arterial Blood Pressure 101/53 Arterial Blood Pressure 99/54 Arterial Blood Pressure 97/53 Arterial Blood Pressure 98/53 Arterial Blood Pressure 103/44 Arterial Blood Pressure 94/42 Arterial Blood Pressure 97/44 Arterial Blood Pressure 97/43 Arterial Blood Pressure 98/43 Arterial Blood Pressure 100/47 Arterial Blood Pressure 102/48 Arterial Blood Pressure 105/48 Arterial Blood Pressure 97/46 Arterial Blood Pressure 92/43 Arterial Blood Pressure 91/44 Arterial Blood Pressure 94/44 Arterial Blood Pressure 92/43 Arterial Blood Pressure 96/43 Arterial Blood Pressure 98/46 Arterial Blood Pressure 100/46 Arterial Blood Pressure 99/46 Arterial Blood Pressure 98/46 Arterial Blood Pressure 103/48 Arterial Blood Pressure 109/52 Arterial Blood Pressure 110/51 Arterial Blood Pressure 107/54 Arterial Blood Pressure 107/53 Arterial Blood Pressure 111/55 Arterial Blood Pressure 105/48 Arterial Blood Pressure 131/63 Arterial Blood Pressure 111/61 Arterial Blood Pressure 125/66 Arterial Blood Pressure 124/62 GENERAL DESCRIPTION: Elderly female lying in bed, no distress. No tachypnea or accessory muscle of respiration use. HEENT: Shows Pallor , no scleral icterus. Oral mucous membrane is dry. NECK: Trachea central, no thyromegaly. LUNGS: Unlabored breathing. Decreased breath sound at the base HEART: S1, S2, regular rate and rhythm. No loud murmur ABDOMEN: Soft, mild distention and tenderness EXTREMITIES: No edema of feet. SKIN: No rash, no masses palpable. NEUROLOGICAL: The patient is lethargic but arousable, mood and affect normal. Results CBC & Chem 7: 02/19/25 06:20 02/19/25 12:32 Labs: Abnormal Lab Results - Last 24 Hours (Table) 02/18/25 02/18/25 02/18/25 Range/Units 12:18 13:04 13:04 WBC (4.50-10.00) 10*3/uL RBC (4.10-5.20) 10*6/uL Hgb (12.0-15.0) g/dL Hct (37.2-46.3) % Neutrophils # (1.80-7.70) 10*3/uL Lymphocytes # (0.90-5.00) 10*3/uL Eosinophils # (0.04-0.35) 10*3/uL ABG pCO2 (35-45) mmHg ABG pO2 (83-108) mmHg ABG HCO3 (21-25) mmol/L ABG Total CO2 (19-24) mmol/L ABG O2 Saturation (94-97) % Hemoglobin (11.4-16.0) gm/dL Sodium 129 L (137-145) mmol/L Chloride 89 L (98-107) mmol/L Carbon Dioxide (22-30) mmol/L BUN 61 H (7-17) mg/dL Creatinine 2.84 H (0.52-1.04) mg/dL Glucose 138 H (74-99) mg/dL POC Glucose (mg/dL) 166 H (70-110) mg/dL Plasma Lactic Acid Gene (0.7-2.0) mmol/L Calcium 10.4 H (8.4-10.2) mg/dL Magnesium 2.4 H (1.6-2.3) mg/dL Iron 23 L (50-170) UG/DL % Saturation 6.20 L (12.00-45.00) Total Protein (PEP) 5.9 L (6.2-8.2) g/dL Vitamin D 25-Hydroxy 26.9 L (30.0-100.0) ng/mL PTH Intact (14.0-72.0) pg/mL Urine Protein (Negative) Urine Glucose (UA) (Negative) Ur Leukocyte Esterase (Negative) Urine WBC (0-5) /hpf Urine WBC Clumps (None) /hpf Urine Bacteria (None) /hpf 02/18/25 02/18/25 02/19/25 Range/Units 13:04 20:15 03:31 WBC (4.50-10.00) 10*3/uL RBC (4.10-5.20) 10*6/uL Hgb (12.0-15.0) g/dL Hct (37.2-46.3) % Neutrophils # (1.80-7.70) 10*3/uL Lymphocytes # (0.90-5.00) 10*3/uL Eosinophils # (0.04-0.35) 10*3/uL ABG pCO2 (35-45) mmHg ABG pO2 (83-108) mmHg ABG HCO3 (21-25) mmol/L ABG Total CO2 (19-24) mmol/L ABG O2 Saturation (94-97) % Hemoglobin (11.4-16.0) gm/dL Sodium (137-145) mmol/L Chloride (98-107) mmol/L Carbon Dioxide (22-30) mmol/L BUN (7-17) mg/dL Creatinine (0.52-1.04) mg/dL Glucose (74-99) mg/dL POC Glucose (mg/dL) 146 H 125 H (70-110) mg/dL Plasma Lactic Acid Gene (0.7-2.0) mmol/L Calcium (8.4-10.2) mg/dL Magnesium (1.6-2.3) mg/dL Iron (50-170) UG/DL % Saturation (12.00-45.00) Total Protein (PEP) (6.2-8.2) g/dL Vitamin D 25-Hydroxy (30.0-100.0) ng/mL PTH Intact 99.9 H (14.0-72.0) pg/mL Urine Protein (Negative) Urine Glucose (UA) (Negative) Ur Leukocyte Esterase (Negative) Urine WBC (0-5) /hpf Urine WBC Clumps (None) /hpf Urine Bacteria (None) /hpf 02/19/25 02/19/25 02/19/25 Range/Units 03:48 04:32 04:46 WBC (4.50-10.00) 10*3/uL RBC (4.10-5.20) 10*6/uL Hgb (12.0-15.0) g/dL Hct (37.2-46.3) % Neutrophils # (1.80-7.70) 10*3/uL Lymphocytes # (0.90-5.00) 10*3/uL Eosinophils # (0.04-0.35) 10*3/uL ABG pCO2 25 L (35-45) mmHg ABG pO2 195 H (83-108) mmHg ABG HCO3 16 L (21-25) mmol/L ABG Total CO2 17 L (19-24) mmol/L ABG O2 Saturation >100.0 H (94-97) % Hemoglobin 11.0 L (11.4-16.0) gm/dL Sodium (137-145) mmol/L Chloride (98-107) mmol/L Carbon Dioxide (22-30) mmol/L BUN (7-17) mg/dL Creatinine (0.52-1.04) mg/dL Glucose (74-99) mg/dL POC Glucose (mg/dL) 160 H (70-110) mg/dL Plasma Lactic Acid Gene (0.7-2.0) mmol/L Calcium (8.4-10.2) mg/dL Magnesium 2.5 H (1.6-2.3) mg/dL Iron (50-170) UG/DL % Saturation (12.00-45.00) Total Protein (PEP) (6.2-8.2) g/dL Vitamin D 25-Hydroxy (30.0-100.0) ng/mL PTH Intact (14.0-72.0) pg/mL Urine Protein (Negative) Urine Glucose (UA) (Negative) Ur Leukocyte Esterase (Negative) Urine WBC (0-5) /hpf Urine WBC Clumps (None) /hpf Urine Bacteria (None) /hpf 02/19/25 02/19/25 02/19/25 Range/Units 04:50 06:20 06:20 WBC (4.50-10.00) 10*3/uL RBC (4.10-5.20) 10*6/uL Hgb (12.0-15.0) g/dL Hct (37.2-46.3) % Neutrophils # (1.80-7.70) 10*3/uL Lymphocytes # (0.90-5.00) 10*3/uL Eosinophils # (0.04-0.35) 10*3/uL ABG pCO2 (35-45) mmHg ABG pO2 (83-108) mmHg ABG HCO3 (21-25) mmol/L ABG Total CO2 (19-24) mmol/L ABG O2 Saturation (94-97) % Hemoglobin (11.4-16.0) gm/dL Sodium 127 L (137-145) mmol/L Chloride 90 L (98-107) mmol/L Carbon Dioxide 13 L (22-30) mmol/L BUN 59 H (7-17) mg/dL Creatinine 3.29 H (0.52-1.04) mg/dL Glucose 168 H (74-99) mg/dL POC Glucose (mg/dL) (70-110) mg/dL Plasma Lactic Acid Gene 10.4 H* (0.7-2.0) mmol/L Calcium (8.4-10.2) mg/dL Magnesium 2.4 H (1.6-2.3) mg/dL Iron (50-170) UG/DL % Saturation (12.00-45.00) Total Protein (PEP) (6.2-8.2) g/dL Vitamin D 25-Hydroxy (30.0-100.0) ng/mL PTH Intact (14.0-72.0) pg/mL Urine Protein Trace H (Negative) Urine Glucose (UA) 2+ H (Negative) Ur Leukocyte Esterase Small H (Negative) Urine WBC 12 H (0-5) /hpf Urine WBC Clumps Rare H (None) /hpf Urine Bacteria Rare H (None) /hpf 02/19/25 Range/Units 06:20 WBC 12.44 H (4.50-10.00) 10*3/uL RBC 3.52 L (4.10-5.20) 10*6/uL Hgb 10.7 L (12.0-15.0) g/dL Hct 33.2 L (37.2-46.3) % Neutrophils # 11.96 H (1.80-7.70) 10*3/uL Lymphocytes # 0.15 L (0.90-5.00) 10*3/uL Eosinophils # 0.00 L (0.04-0.35) 10*3/uL ABG pCO2 (35-45) mmHg ABG pO2 (83-108) mmHg ABG HCO3 (21-25) mmol/L ABG Total CO2 (19-24) mmol/L ABG O2 Saturation (94-97) % Hemoglobin (11.4-16.0) gm/dL Sodium (137-145) mmol/L Chloride (98-107) mmol/L Carbon Dioxide (22-30) mmol/L BUN (7-17) mg/dL Creatinine (0.52-1.04) mg/dL Glucose (74-99) mg/dL POC Glucose (mg/dL) (70-110) mg/dL Plasma Lactic Acid Gene (0.7-2.0) mmol/L Calcium (8.4-10.2) mg/dL Magnesium (1.6-2.3) mg/dL Iron (50-170) UG/DL % Saturation (12.00-45.00) Total Protein (PEP) (6.2-8.2) g/dL Vitamin D 25-Hydroxy (30.0-100.0) ng/mL PTH Intact (14.0-72.0) pg/mL Urine Protein (Negative) Urine Glucose (UA) (Negative) Ur Leukocyte Esterase (Negative) Urine WBC (0-5) /hpf Urine WBC Clumps (None) /hpf Urine Bacteria (None) /hpf Assessment and Plan (1) Sepsis Current Visit: Yes Status: Acute Code(s): A41.9 - SEPSIS, UNSPECIFIED ORGANISM SNOMED Code(s): 34705584 (2) Allergy to multiple antibiotics Current Visit: No Status: Acute Code(s): Z88.1 - ALLERGY STATUS TO OTHER ANTIBIOTIC AGENTS SNOMED Code(s): 644845582 (3) Elevated LFTs Current Visit: No Status: Acute Code(s): R79.89 - OTHER SPECIFIED ABNORMAL FINDINGS OF BLOOD CHEMISTRY SNOMED Code(s): 765380286 Plan: 1patient with sepsis in this patient did have fever tachycardia elevated white count as well as elevated lactic acid source likely abdominal in this patient who did have a some abdominal pain as well as tenderness and recent history of left-sided nephrectomy for known functioning infected kidney 2-patient with multiple antibiotic ALLERGIES that would limit the number of antibiotic safe to use 3-we will obtain a CT of abdominal pelvis with oral contrast to better define underlying pathology cannot use IV contrast because of elevated creatinine 4-patient empirically treated with Invanz while waiting for the workup to be completed Prognosis guarded We will follow on clinical condition and cultures to further adjust medication if needed Thank you for this consultation we will follow the patient along with you Dictation was produced using [employer] dictation software. please excuse any grammatical, word or spelling errors. Time with Patient: Greater than 30
[2025-02-20 00:41] LABS: Glucose,Whole Blood 131 mg/dL (70-110)
[2025-02-20] MEDS: INSULIN LISPRO (HumaLOG) 100 UNIT/ML 10 mL VL SQ SCH ×2 (00:45→18:45)
[2025-02-20 04:53] LABS: Basophils # (A) 0.03 10*3/uL (0.00-0.10); Basophils % (A) 0.2 %; Eosinophils # (A) 0.00 10*3/uL (0.04-0.35); Eosinophils % (A) 0.0 %; HCT 30.3 % (37.2-46.3); HGB 9.9 g/dL (12.0-15.0); Lymphocytes # (A) 0.38 10*3/uL (0.90-5.00); Lymphocytes % (A) 2.6 %; MCH 30.6 pg (27.0-32.0); MCHC 32.7 g/dL (32.0-37.0); MCV 93.5 fL (80.0-97.0); Monocytes # (A) 0.62 10*3/uL (0.20-1.00); Monocytes % (A) 4.3 %; Neutrophils # (A) 13.30 10*3/uL (1.80-7.70); Neutrophils % (A) 92.4 %; RBC 3.24 10*6/uL (4.10-5.20); RDW 17.6 % (11.5-14.5); WBC 14.40 10*3/uL (4.50-10.00)
[2025-02-20 05:05] LABS: African American GFR (CKD) 12 (>60 ml/min/1.73 sqM); Anion Gap 20 mmol/L; Blood Urea Nitrogen 69 mg/dL (7-17); Calcium 7.8 mg/dL (8.4-10.2); Carbon Dioxide 20 mmol/L (22-30); Chloride 91 mmol/L (98-107); Glucose 138 mg/dL (74-99); Non-African American GFR(CKD) 11 (>60 ml/min/1.73 sqM); Potassium 4.1 mmol/L (3.5-5.1); Sodium 131 mmol/L (137-145)
[2025-02-20 05:20] LABS: Platelet Count 81 10*3/uL (140-440); Polychromasia Present; Toxic Granulation Present; Toxic Vacuolation Present
[2025-02-20] MEDS ORDERED: VANCOMYCIN 1,500 MG in SODIUM CHLORIDE 0.9% 500 ML 500 ML IVPB ONE (06:00)
[2025-02-20 06:16] LABS: Glucose,Whole Blood 74 mg/dL (70-110)
[2025-02-20 08:01] LABS: Glucose,Whole Blood 90 mg/dL (70-110)
--- NOTE | 2025-02-20 08:14 | P.PN ---
Subjective Progress Note Date: 02/20/25 PROGRESS NOTE The patient is a 74-year-old female with known history of severe ischemic cardiomyopathy, status post TAVR, status post ICD implantation. She has a known history of chronic kidney disease, ventricular tachycardia who presented with symptoms of progressive dyspnea. Yesterday had episode of wide-complex rhythm and was transferred to the ICU. She is in sinus mechanism at this time. She is awake, following commands, very weak, not verbalizing. She is on IV amiodarone, she is off norepinephrine that was started earlier prior to transfer to the ICU. Her urinary output is stable. She had no recurrent wide-complex tachycardia. She recently underwent nephrectomy. She had recent admission with ventricular tachycardia. Her echocardiogram in the past showed an ejection fraction of 10 to 15% with moderate mitral and severe tricuspid regurgitation. February 20: She is more awake and alert today, she is off norepinephrine. She continues to be in sinus mechanism on IV amiodarone. Her urinary output remains low but mildly improved. She is nauseated. She has some fullness in the chest. She has no palpitations. She had no evidence of recurrent ventricular tachycardia. I discussed the findings with her and her family and she wants to be DNR, understanding the risks. She has not been taking her oral medication because of her prior mental status. Medications: IV amiodarone, vancomycin. PHYSICAL EXAMINATION: 74-year-old female, following command, very weak, more awake blood pressure 132/70 heart rate 90 LUNGS: Clear to auscultation HEART: Regular rate and rhythm, S1, S2. No S3. Systolic ejection murmur, 2/6 at the base ABDOMEN: Soft, nontender, no organomegaly EXTREMETIES: +1 edema LAB: Sodium 131, BUN 69, creatinine 3.92. Hemoglobin 9.9, WBC 14.4. Her AST yesterday 5905 and ALT 2459 IMPRESSION: 1. Recurrent ventricular tachycardia in a patient with known history of severe ischemic cardiomyopathy 2. Status post CABG 3. Status post TAVR 4. Worsening renal function acute on chronic chronic kidney disease 5. History of diabetes 6. Generalized weakness 7. Status post recent nephrectomy 8. Acute liver injury PLAN: 1. Continue IV amiodarone for now 2. Continue beta-blanca 3. Follow liver function test 4. Follow renal functions 5. Depending on her blood pressure level readjust medical regimen. 6. Prognosis is guarded Objective - Vital Signs Vital signs: Vital Signs Temp 97.8 F 02/20/25 04:00 Pulse 94 02/20/25 07:00 Resp 20 02/20/25 07:00 BP 105/63 02/19/25 22:00 Pulse Ox 100 02/20/25 04:00 FiO2 Intake & Output 02/19/25 02/20/25 02/20/25 18:59 06:59 18:59 Intake Total 630.080 0884.724 66 Output Total 50 215 20 Balance 146.924 5883.724 46 Weight 91.8 kg Intake: IV 645 726 66 0.9 carrier 110 10 Dextrose 5% in Water 1, 400 550 50 000 ml @ 50 mls/hr IV . Q23H CORIE with Sodium Bicarb (1 Meq/ml) 150 ml Rx#:[id number] Invasive Line 1 10 Invasive Line 2 10 Pressure Bag - CVP & Art 66 6 Line Sodium Chloride 0.9% 500 225 ml 500 ml @ 75 mls/hr IV .Q6H40M CORIE Rx#:[id number] Intake, IV Titration 71.348 341.724 Amount Amiodarone 450 mg In 247.505 Dextrose 5% in Water 250 ml @ 0.5 MG/MIN 16.667 mls/hr IV .Q15H CORIE Rx#: [id number] Norepinephrine 8 mg In 71.348 94.219 Sodium Chloride 0.9% 250 ml @ 0.03 MCG/KG/MIN 5. 225 mls/hr IV .Q24H CORIE Rx#:[id number] Oral 320 Output: Urine 50 215 20 Other: Voiding Method Indwelling Catheter Indwelling Catheter ABP, PAP, CO, CI - Last Documented Arterial Blood Pressure 99/58 - Labs CBC & Chem 7: 02/20/25 04:34 02/20/25 04:34 Labs: Abnormal Lab Results - Last 24 Hours (Table) 02/19/25 02/19/25 02/19/25 Range/Units 06:20 10:10 12:32 WBC (4.50-10.00) 10*3/uL RBC (4.10-5.20) 10*6/uL Hgb (12.0-15.0) g/dL Hct (37.2-46.3) % Plt Count (140-440) 10*3/uL Immature Gran # (0.00-0.04) 10*3/uL Neutrophils # 11.96 H (1.80-7.70) 10*3/uL Lymphocytes # 0.15 L (0.90-5.00) 10*3/uL Eosinophils # 0.00 L (0.04-0.35) 10*3/uL Sodium 130 L (137-145) mmol/L Chloride 93 L (98-107) mmol/L Carbon Dioxide 18 L (22-30) mmol/L BUN 64 H (7-17) mg/dL Creatinine 3.41 H (0.52-1.04) mg/dL Glucose 101 H (74-99) mg/dL POC Glucose (mg/dL) (70-110) mg/dL Plasma Lactic Acid Gene 9.6 H* (0.7-2.0) mmol/L Calcium (8.4-10.2) mg/dL Total Bilirubin 1.5 H (0.2-1.3) mg/dL AST 5905 H (14-36) U/L ALT 2456 H (4-34) U/L Total Protein 5.4 L (6.3-8.2) g/dL Albumin 3.3 L (3.5-5.0) g/dL 02/19/25 02/19/25 02/19/25 Range/Units 14:15 17:09 17:09 WBC (4.50-10.00) 10*3/uL RBC (4.10-5.20) 10*6/uL Hgb (12.0-15.0) g/dL Hct (37.2-46.3) % Plt Count (140-440) 10*3/uL Immature Gran # (0.00-0.04) 10*3/uL Neutrophils # (1.80-7.70) 10*3/uL Lymphocytes # (0.90-5.00) 10*3/uL Eosinophils # (0.04-0.35) 10*3/uL Sodium (137-145) mmol/L Chloride (98-107) mmol/L Carbon Dioxide (22-30) mmol/L BUN (7-17) mg/dL Creatinine (0.52-1.04) mg/dL Glucose (74-99) mg/dL POC Glucose (mg/dL) 130 H (70-110) mg/dL Plasma Lactic Acid Gene 7.9 H* 9.8 H* (0.7-2.0) mmol/L Calcium (8.4-10.2) mg/dL Total Bilirubin (0.2-1.3) mg/dL AST (14-36) U/L ALT (4-34) U/L Total Protein (6.3-8.2) g/dL Albumin (3.5-5.0) g/dL 02/20/25 02/20/25 02/20/25 Range/Units 00:40 04:34 04:34 WBC 14.40 H (4.50-10.00) 10*3/uL RBC 3.24 L (4.10-5.20) 10*6/uL Hgb 9.9 L (12.0-15.0) g/dL Hct 30.3 L (37.2-46.3) % Plt Count 81 L D (140-440) 10*3/uL Immature Gran # 0.07 H (0.00-0.04) 10*3/uL Neutrophils # 13.30 H (1.80-7.70) 10*3/uL Lymphocytes # 0.38 L (0.90-5.00) 10*3/uL Eosinophils # 0.00 L (0.04-0.35) 10*3/uL Sodium 131 L (137-145) mmol/L Chloride 91 L (98-107) mmol/L Carbon Dioxide 20 L (22-30) mmol/L BUN 69 H (7-17) mg/dL Creatinine 3.92 H (0.52-1.04) mg/dL Glucose 138 H (74-99) mg/dL POC Glucose (mg/dL) 131 H (70-110) mg/dL Plasma Lactic Acid Gene (0.7-2.0) mmol/L Calcium 7.8 L (8.4-10.2) mg/dL Total Bilirubin (0.2-1.3) mg/dL AST (14-36) U/L ALT (4-34) U/L Total Protein (6.3-8.2) g/dL Albumin (3.5-5.0) g/dL
[2025-02-20] MEDS: ISOSORBIDE MONONITRATE ER 60 MG TAB.ER.24H PO SCH (08:30)
[2025-02-20] MEDS: ERTAPENEM 0.5 GM in SODIUM CHLORIDE 0.9% 50 ML IVPB SCH (10:21)
[2025-02-20 11:14] LABS: ALT 3718 U/L (4-34); AST 7258 U/L (14-36)
--- NOTE | 2025-02-20 11:25 | P.PN ---
Subjective Patient is seen for follow-up for acute kidney injury and chronic kidney disease. Currently maintained on amiodarone drip for an episode of V. tach 2 days ago. Maintained on IV bicarb at 50 cc an hour Urine output remains low but at 20 cc an hour. Complaining of nausea. Serum creatinine increased to 3.9 today. Liver enzymes continue to increase. Levophed was discontinued early this morning. Objective - Vital Signs Vital signs: Vital Signs Temp 97.8 F 02/20/25 04:00 Pulse 94 02/20/25 10:00 Resp 18 02/20/25 10:00 BP 105/63 02/19/25 22:00 Pulse Ox 100 02/20/25 04:00 FiO2 Intake & Output 02/19/25 02/20/25 02/20/25 18:59 06:59 18:59 Intake Total 305.581 0973.724 264 Output Total 50 215 80 Balance 383.589 2116.724 184 Weight 91.8 kg Intake: IV 645 726 264 0.9 carrier 110 40 Dextrose 5% in Water 1, 400 550 200 000 ml @ 50 mls/hr IV . Q23H CORIE with Sodium Bicarb (1 Meq/ml) 150 ml Rx#:[id number] Invasive Line 1 10 Invasive Line 2 10 Pressure Bag - CVP & Art 66 24 Line Sodium Chloride 0.9% 500 225 ml 500 ml @ 75 mls/hr IV .Q6H40M CORIE Rx#:[id number] Intake, IV Titration 71.348 341.724 Amount Amiodarone 450 mg In 247.505 Dextrose 5% in Water 250 ml @ 0.5 MG/MIN 16.667 mls/hr IV .Q15H CORIE Rx#: [id number] Norepinephrine 8 mg In 71.348 94.219 Sodium Chloride 0.9% 250 ml @ 0.03 MCG/KG/MIN 5. 225 mls/hr IV .Q24H CORIE Rx#:[id number] Oral 320 Output: Urine 50 215 80 Other: Voiding Method Indwelling Catheter Indwelling Catheter ABP, PAP, CO, CI - Last Documented Arterial Blood Pressure 101/58 - Exam Patient is awake, comfortable, no acute distress Examination of the heart S1 and S2 Examination of the lungs bilateral breath sounds are heard Abdomen is soft nontender Examination of lower extremities shows trace edema [employer] exam grossly intact - Labs CBC & Chem 7: 07/19/25 04:34 02/20/25 04:34 Labs: Abnormal Lab Results - Last 24 Hours (Table) 02/19/25 02/19/25 02/19/25 Range/Units 10:10 12:32 14:15 WBC (4.50-10.00) 10*3/uL RBC (4.10-5.20) 10*6/uL Hgb (12.0-15.0) g/dL Hct (37.2-46.3) % Plt Count (140-440) 10*3/uL Immature Gran # (0.00-0.04) 10*3/uL Neutrophils # (1.80-7.70) 10*3/uL Lymphocytes # (0.90-5.00) 10*3/uL Eosinophils # (0.04-0.35) 10*3/uL ABG Lactic Acid (0.5-1.6) mmol/L Sodium 130 L (137-145) mmol/L Chloride 93 L (98-107) mmol/L Carbon Dioxide 18 L (22-30) mmol/L BUN 64 H (7-17) mg/dL Creatinine 3.41 H (0.52-1.04) mg/dL Glucose 101 H (74-99) mg/dL POC Glucose (mg/dL) (70-110) mg/dL Plasma Lactic Acid Gene 9.6 H* 7.9 H* (0.7-2.0) mmol/L Calcium (8.4-10.2) mg/dL Total Bilirubin 1.5 H (0.2-1.3) mg/dL AST 5905 H (14-36) U/L ALT 2456 H (4-34) U/L Total Protein 5.4 L (6.3-8.2) g/dL Albumin 3.3 L (3.5-5.0) g/dL 02/19/25 02/19/25 02/20/25 Range/Units 17:09 17:09 00:40 WBC (4.50-10.00) 10*3/uL RBC (4.10-5.20) 10*6/uL Hgb (12.0-15.0) g/dL Hct (37.2-46.3) % Plt Count (140-440) 10*3/uL Immature Gran # (0.00-0.04) 10*3/uL Neutrophils # (1.80-7.70) 10*3/uL Lymphocytes # (0.90-5.00) 10*3/uL Eosinophils # (0.04-0.35) 10*3/uL ABG Lactic Acid (0.5-1.6) mmol/L Sodium (137-145) mmol/L Chloride (98-107) mmol/L Carbon Dioxide (22-30) mmol/L BUN (7-17) mg/dL Creatinine (0.52-1.04) mg/dL Glucose (74-99) mg/dL POC Glucose (mg/dL) 130 H 131 H (70-110) mg/dL Plasma Lactic Acid Gene 9.8 H* (0.7-2.0) mmol/L Calcium (8.4-10.2) mg/dL Total Bilirubin (0.2-1.3) mg/dL AST (14-36) U/L ALT (4-34) U/L Total Protein (6.3-8.2) g/dL Albumin (3.5-5.0) g/dL 02/20/25 02/20/25 02/20/25 Range/Units 04:34 04:34 04:34 WBC 14.40 H (4.50-10.00) 10*3/uL RBC 3.24 L (4.10-5.20) 10*6/uL Hgb 9.9 L (12.0-15.0) g/dL Hct 30.3 L (37.2-46.3) % Plt Count 81 L D (140-440) 10*3/uL Immature Gran # 0.07 H (0.00-0.04) 10*3/uL Neutrophils # 13.30 H (1.80-7.70) 10*3/uL Lymphocytes # 0.38 L (0.90-5.00) 10*3/uL Eosinophils # 0.00 L (0.04-0.35) 10*3/uL ABG Lactic Acid (0.5-1.6) mmol/L Sodium 131 L (137-145) mmol/L Chloride 91 L (98-107) mmol/L Carbon Dioxide 20 L (22-30) mmol/L BUN 69 H (7-17) mg/dL Creatinine 3.92 H (0.52-1.04) mg/dL Glucose 138 H (74-99) mg/dL POC Glucose (mg/dL) (70-110) mg/dL Plasma Lactic Acid Gene (0.7-2.0) mmol/L Calcium 7.8 L (8.4-10.2) mg/dL Total Bilirubin (0.2-1.3) mg/dL AST 7258 H (14-36) U/L ALT 3718 H (4-34) U/L Total Protein (6.3-8.2) g/dL Albumin (3.5-5.0) g/dL 02/20/25 Range/Units 10:14 WBC (4.50-10.00) 10*3/uL RBC (4.10-5.20) 10*6/uL Hgb (12.0-15.0) g/dL Hct (37.2-46.3) % Plt Count (140-440) 10*3/uL Immature Gran # (0.00-0.04) 10*3/uL Neutrophils # (1.80-7.70) 10*3/uL Lymphocytes # (0.90-5.00) 10*3/uL Eosinophils # (0.04-0.35) 10*3/uL ABG Lactic Acid 10.1 H* (0.5-1.6) mmol/L Sodium (137-145) mmol/L Chloride (98-107) mmol/L Carbon Dioxide (22-30) mmol/L BUN (7-17) mg/dL Creatinine (0.52-1.04) mg/dL Glucose (74-99) mg/dL POC Glucose (mg/dL) (70-110) mg/dL Plasma Lactic Acid Gene (0.7-2.0) mmol/L Calcium (8.4-10.2) mg/dL Total Bilirubin (0.2-1.3) mg/dL AST (14-36) U/L ALT (4-34) U/L Total Protein (6.3-8.2) g/dL Albumin (3.5-5.0) g/dL Assessment and Plan Assessment: 1. Acute kidney injury secondary to hemodynamic ATN and cardiorenal syndrome. Renal function worse. Creatinine 3.29 today. Nonoliguric. 2. Chronic kidney disease stage IV (eGFR of 18) with baseline creatinine 1.7-2 secondary to solitary right kidney. 3. Volume overload, improved with diuresis. 4. Hyponatremia, hypervolemic. 5. V. tach maintained on amiodarone drip. 6. Hypercalcemia. Improved. PTH elevated at 99.9 and vitamin D level 26.9. Will need to consider parathyroid scan in the near future once stable medically. 7. Hypokalemia from diuresis. Replaced. Better. 8. Acute on chronic systolic CHF ejection fraction of 10 to 15%. 9. Shock maintained on Levophed. 10. Metabolic acidosis secondary to acute kidney injury and lactic acidosis. Plan: Continue with bicarb drip No acute indication for hemodialysis today Repeat labs in a.m. Continue to avoid nephrotoxic agents.
[2025-02-20 12:14] LABS: Glucose,Whole Blood 202 mg/dL (70-110)
--- NOTE | 2025-02-20 12:31 | P.PN ---
Subjective Progress Note Date: 02/20/25 Received a call from the [facility] physician, a rapid response called earlier this morning on this patient. Apparently, patient reportedly had a episode of wide- complex tachycardia in the 140s with pulse. She was loaded with IV amiodarone and started on the amiodarone protocol. Suspicion that her AICD may have fired. Following this became hypotensive and transfered to the ICU. Patient is 74-year-old female with extensive comorbidities including asthma, hypertension, hyperlipidemia, coronary artery disease with previous CABG, aortic valve replacement, ischemic cardiomyopathy, AICD, prior cardiac arrest. Recent available echocardiogram from February 03 estimating left ventricular ejection fraction of 10 to 15% with a functioning bioprosthetic aortic valve, moderate mitral regurgitation, severe tricuspid regurgitation, and RV dilation. Also, recent left nephrectomy at outside facility. Patient originally admitted back on 02/15/2025. Chief complaint of generalized weakness and chest pain. There was bilateral lower extremity edema. Chest x- ray showing cardiomegaly with mild vascular congestion. NT proBNP elevated at 9300. Prior VQ scan showing low probability for pulmonary embolism. Most recent available labs from yesterday including a CBC with an increase in her WBC count up to 16.24, hemoglobin 10.2, platelets 210. BMP with sodium 129, potassium 4.5, chloride 89, serum bicarb 28, creatinine 2.84, glucose 138. LFTs unremarkable. Total bilirubin 1.3. Prior UA unremarkable for infection. EKG from rapid response reviewed, showing regular wide-complex tachycardia with right axis deviation and rate of 140s. Prior to this, it appears she was in A- fib with RVR with aberrancy on telemetry. Patient now being seen in the intensive care unit. She is lethargic. She is tachypneic on a 15 L nonrebreather. Current rhythm normal sinus. Troubles achieving accurate noninvasive blood pressures and the [facility] physician is going to insert a arterial line. Blood pressure was previously hypotensive during the A-team, and started on norepinephrine at 0.03 mcg/kg/min. Amiodarone continues to infuse at 1 mg/min. She was also noted to be have a fever, temperature 102.7 F. She was empirically covered on a combination of antibiotics including Rocephin and vancomycin. ABGs done showing a PaO2 of 195, pCO2 of 25, pH of 7.4. Repeat lab work is pending. No further episodes of ectopy at this time. On 02/20/2025, the patient is being seen for a follow-up. The patient remains in cardiogenic shock. This morning, she is in 60s of oxygen by nasal cannula. Blood pressure remains soft with a mean arterial pressure of around 60-65 and the patient was taken off norepinephrine. No pressors although 20 cc an hour. The patient has signs of hypoperfusion, cyanosis in all extremities in addition to weak pulses and l ongoing lactic acidosis. The patient remains on a bicarb infusion which is running at 50 cc an hour. The patient remains on amiodarone drip at 0.5 mg/min and the cardiac rhythm is sinus. Some vague ongoing abdominal pain which is diffuse. He is also having some occasional nausea. CAT scan of the abdomen and pelvis was completed yesterday and it showed post nephr ectomy changes on the left with small amount of free fluid in the anterior pelvis. No evidence of any abscess formation. Decompressed urinary bladder with a Alford catheter in place. Perivesicular fat stranding. A small left and trace right-sided pleural effusion with atelectasis and cholelithiasis and mild hepatomegaly. Meanwhile, the blood work shows a white cell count of 14, hemoglobin 9.9 and a platelet count of 81. Lactic acid level remains elevated at 10.1. BUN is 69 with a creatinine of 3.9. Sodium levels at 131. Liver function tests remain abnormal and LFTs are on the rise. This is consistent with shock liver. AST is 7258, ALT is 3718 and the patient has an alkaline phosphatase of 118. UA was negative. Chest x-ray findings are essentially showing cardiomegaly. No evidence of any pneumonia or pulmonary edema. In terms of mental status, the patient seems to be more alert and awake compared to yesterday. Cardiology on the case. Nephrology is also on the case. Condition is critical. Family at the bedside. DNR/DNI CODE STATUS. Objective - Vital Signs Vital signs: Vital Signs Temp 97.8 F 02/20/25 04:00 Pulse 94 02/20/25 07:00 Resp 20 02/20/25 07:00 BP 105/63 02/19/25 22:00 Pulse Ox 100 02/20/25 04:00 FiO2 Intake & Output 02/19/25 02/20/2502/20/25 18:59 06:59 18:59 Intake Total 428.987 9693.724 66 Output Total 50 215 20 Balance 125.206 3164.724 46 Weight 91.8 kg Intake: IV 645 726 66 0.9 carrier 110 10 Dextrose 5% in Water 1, 400 550 50 000 ml @ 50 mls/hr IV . Q23H CORIE with Sodium Bicarb (1 Meq/ml) 150 ml Rx#:[id number] Invasive Line 1 10 Invasive Line 2 10 Pressure Bag - CVP & Art 66 6 Line Sodium Chloride 0.9% 500 225 ml 500 ml @ 75 mls/hr IV .Q6H40M CORIE Rx#:[id number] Intake, IV Titration 71.348 341.724 Amount Amiodarone 450 mg In 247.505 Dextrose 5% in Water 250 ml @ 0.5 MG/MIN 16.667 mls/hr IV .Q15H CORIE Rx#: [id number] Norepinephrine 8 mg In 71.348 94.219 Sodium Chloride 0.9% 250 ml @ 0.03 MCG/KG/MIN 5. 225 mls/hr IV .Q24H CORIE Rx#:[id number] Oral 320 Output: Urine 50 215 20 Other: Voiding Method Indwelling Catheter Indwelling Catheter ABP, PAP, CO, CI - Last Documented Arterial Blood Pressure 99/58 - Exam GENERAL EXAM: Lethargic, 74-year-old female, on 6 L nonrebreather, in mild respiratory distress. Awake alert and communicating. HEAD: Normocephalic and atraumatic EYES: Normal reaction of pupils, equal size. NOSE: Clear with pink turbinates. THROAT: No erythema or exudates. NECK: No masses, no JVD. CHEST: Left chest implanted device LUNGS: Equal air entry with minimal bibasilar inspiratory crackles. CVS: S1 and S2 normal with no audible murmur, regular rhythm. No extra heart sounds ABDOMEN: No hepatosplenomegaly, active bowel sounds, no guarding or rigidity. Small well-approximated left abdominal Grant Morson incision SPINE: No scoliosis or deformity SKIN: Mottled appearance of the lower extremities, in addition cyanosis in all 4 extremities. CENTRAL NERVOUS SYSTEM: No focal deficits, tone is normal in all 4 extremities. EXTREMITIES: There is mild nonpitting edema bilateral., clubbing, or cyanosis. Peripheral pulses are diminished in all 4 extremities. - Labs CBC & Chem 7: 02/20/25 04:34 02/20/25 04:34 Labs: Abnormal Lab Results - Last 24 Hours (Table) 02/19/25 02/19/25 02/19/25 Range/Units 10:10 12:32 14:15 WBC (4.50-10.00) 10*3/uL RBC (4.10-5.20) 10*6/uL Hgb (12.0-15.0) g/dL Hct (37.2-46.3) % Plt Count (140-440) 10*3/uL Immature Gran # (0.00-0.04) 10*3/uL Neutrophils # (1.80-7.70) 10*3/uL Lymphocytes # (0.90-5.00) 10*3/uL Eosinophils # (0.04-0.35) 10*3/uL Sodium 130 L (137-145) mmol/L Chloride 93 L (98-107) mmol/L Carbon Dioxide 18 L (22-30) mmol/L BUN 64 H (7-17) mg/dL Creatinine 3.41 H (0.52-1.04) mg/dL Glucose 101 H (74-99) mg/dL POC Glucose (mg/dL) (70-110) mg/dL Plasma Lactic Acid Gene 9.6 H* 7.9 H* (0.7-2.0) mmol/L Calcium (8.4-10.2) mg/dL Total Bilirubin 1.5 H (0.2-1.3) mg/dL AST 5905 H (14-36) U/L ALT 2456 H (4-34) U/L Total Protein 5.4 L (6.3-8.2) g/dL Albumin 3.3 L (3.5-5.0) g/dL 02/19/25 02/19/25 02/20/25 Range/Units 17:09 17:09 00:40 WBC (4.50-10.00) 10*3/uL RBC (4.10-5.20) 10*6/uL Hgb (12.0-15.0) g/dL Hct (37.2-46.3) % Plt Count (140-440) 10*3/uL Immature Gran # (0.00-0.04) 10*3/uL Neutrophils # (1.80-7.70) 10*3/uL Lymphocytes # (0.90-5.00) 10*3/uL Eosinophils # (0.04-0.35) 10*3/uL Sodium (137-145) mmol/L Chloride (98-107) mmol/L Carbon Dioxide (22-30) mmol/L BUN (7-17) mg/dL Creatinine (0.52-1.04) mg/dL Glucose (74-99) mg/dL POC Glucose (mg/dL) 130 H 131 H (70-110) mg/dL Plasma Lactic Acid Gene 9.8 H* (0.7-2.0) mmol/L Calcium (8.4-10.2) mg/dL Total Bilirubin (0.2-1.3) mg/dL AST (14-36) U/L ALT (4-34) U/L Total Protein (6.3-8.2) g/dL Albumin (3.5-5.0) g/dL 02/20/25 02/20/25 Range/Units 04:34 04:34 WBC 14.40 H (4.50-10.00) 10*3/uL RBC 3.24 L (4.10-5.20) 10*6/uL Hgb 9.9 L (12.0-15.0) g/dL Hct 30.3 L (37.2-46.3) % Plt Count 81 L D (140-440) 10*3/uL Immature Gran # 0.07 H (0.00-0.04) 10*3/uL Neutrophils # 13.30 H (1.80-7.70) 10*3/uL Lymphocytes # 0.38 L (0.90-5.00) 10*3/uL Eosinophils # 0.00 L (0.04-0.35) 10*3/uL Sodium 131 L (137-145) mmol/L Chloride 91 L (98-107) mmol/L Carbon Dioxide 20 L (22-30) mmol/L BUN 69 H (7-17) mg/dL Creatinine 3.92 H (0.52-1.04) mg/dL Glucose 138 H (74-99) mg/dL POC Glucose (mg/dL) (70-110) mg/dL Plasma Lactic Acid Gene (0.7-2.0) mmol/L Calcium 7.8 L (8.4-10.2) mg/dL Total Bilirubin (0.2-1.3) mg/dL AST (14-36) U/L ALT (4-34) U/L Total Protein (6.3-8.2) g/dL Albumin (3.5-5.0) g/dL Assessment and Plan Assessment: Cardiogenic shock. The patient has signs of multisystem organ failure. The patient developed acute kidney injury on top of chronic kidney disease in add ition to shock liver. Initially, she had diminished level of mentations in addition. The patient continues to have lactic acidosis. Signs of hypoperfusion. Taken off pressors and the mean arterial pressure is at 65 the patient is receiving bicarb infusion with diminished urine output. Unstable wide-complex tachycardia with a pulse, suspicion that patient's AICD may have fired, started on IV amiodarone per protocol and the patient remains on amiodarone 0.5 mg/min. Cardiac rhythm is sinus with a bundle branch block pattern. Hypotension, secondary to above, improved, norepinephrine was weaned off and discontinued Acute on chronic systolic congestive heart failure Acute hypoxemic respiratory failure, currently on 6 L nonrebreather Acute metabolic acidosis, with compensated respiratory alkalosis. The patient continues to have severe lactic acidosis. Acute leukocytosis and fever, covered on antibiotic, the patient is currently on IV Invanz Acute on chronic kidney disease, creatinine remains elevated at the patient remains oliguric. Noted the patient has single kidney on the right and the patient is status post nephrectomy on the left History of left-sided hydronephrosis with nephrolithiasis and frequent urinary tract infections History of recent left nephrectomy on 01/26/2025 Paroxysmal atrial fibrillation, anticoagulated on Eliquis Severe ischemic cardiomyopathy, most recent available echocardiogram estimating left ventricular ejection fraction of 10 to 15% with functioning bioprosthetic aortic valve, moderate mitral regurgitation, severe tricuspid regurgitation. AICD/pacemaker Coronary artery disease, with previous CABG History of prior cardiac arrest History of hyperlipidemia Diabetes mellitus History of asthma Obesity, with a BMI of 41.5 kg/m Shock liver with abnormal LFTs Cholelithiasis based on the CAT scan of the abdomen. No evidence of any cholecystitis. Plan: Condition remains critical and the patient's prognosis remains extremely poor based above-mentioned comorbidities. The patient remains in shock with severe cardiomyopathy. She is a DNR/DNI CODE STATUS. Lactic acid levels are elevated Shock liver with elevated LFTs Continue amiodarone drip Patient is currently off pressors and norepinephrine will be restarted if needed Monitor lactic acid level Monitor urine output Monitor creatinine Continue IV Invanz The patient has an AICD in place Continue anticoagulation with Eliquis CAT scan of the abdomen was noted and the findings are nonspecific Lantus insulin 10 units twice daily along with sliding scale coverage Continue metoprolol 25 mg p.o. 3 times daily Continue Ranexa per cardiology Zofran for nausea Will continue to follow this patient along with the rest of the consultants including cardiology and nephrology Prognosis poor the patient is a DNR/DNI CODE STATUS. Critical care evaluation that was done and 35 minutes. Case was discussed with the daughter at the bedside in addition to cardiology. Time with Patient: Greater than 30
[2025-02-20 12:58] LABS: Glucose,Whole Blood 250 mg/dL (70-110)
--- NOTE | 2025-02-20 14:34 | P.PN ---
Subjective Progress Note Date: 02/20/25 History of present illness; 74-year-old female with a significant past medical history of systolic CHF w/ EF 10-15% A-fib CAD, TAVR, nephrectomy and drug- induced liver injury, presents for weakness and chest pain. She has been at [facility] for rehab since being discharged 02/08/2025. On previous hospitalization patient was admitted for suspected drug-induced developed liver injury with evidence of elevated LFTs, elevated creatinine, and diffuse +2 pitting edema in all extremities. She was admitted for diuresis as well as medication management post Drug induced liver injury. At time of discharge, LFTs and creatinine had returned to normal range. Since admission to rehab, she reports she has been progressively feeling weaker developed chest pain yesterday. She reports symptoms are similar to last admission, she reports edema and fatigue not as severe as previous admission. She denies fever chills dizziness abdominal pain changes in stool dysuria polyuria hematuria. She endorses chest pressure and worsening weakness. In the ER she got an EKG which revealed sinus bradycardia, she also received a CT abdomen and pelvis that revealed no acute changes. Chest x-ray reveals cardiomegaly mild pulmonary edema without effusion. Labs in the ER revealed Cr 2.69, BUN 61, NA 129 K5.9 alk phos 135 ALT 72 BNP 9300 troponin within normal range CT A scan was wanted in the ER due to elevated D-dimer (3.07) but deferred due to kidney function, VQ ordered instead. Returned negative Patient was admitted to the hospital for WENDY and acute on chronic systolic heart failure with consults to cardiology and nephrology 02/17/2025 patient seen at bedside she is still weak however breathing easier. 02/18/2025: Patient seen and examined at bedside patient is extremely disoriented she was moved from observation to cardiac floor was extremely unclear how she arrived there. Patient was reoriented but extremely anxious. Patient reports she is feeling awful and extremely weak, unclear if due to stress or worsening condition. Patient is extremely anxious and confused difficult to take history 02/19/2025: Rapid response was called for sustained wide QRS, hypotension, fever, hypoxic respiratory failure. Patient was placed on nonrebreather at 15 L as well as amiodarone drip, QRS shortened appropriately. blood pressure was not recorded on noninvasive blood pressure despite IV fluid bolus. Radial pulse was still palpable, arterial line was placed and Levophed was initiated. Patient was upgraded to the ICU due to need for pressors. Central line was placed and patient is currently on 0.04 of levo. Blood pressure currently stable. Daughters present at bedside, patient tracks and response to talking with head movements however cannot speak. history received from family and ICU team. 02/20/2025: Patient seen and examined at bedside, no significant overnight events. States she is feeling better than yesterday, and that her weakness has improved. Patient has no other complaints or concerns at this time. Labs today: WBC 14.4, hemoglobin 9.9, platelets 81, ABG lactic acid 10.3, sodium 131, potassium 4.1, bicarb 28, BUN 69, creatinine 2.92, glucose 138, AST 7258, and ALT 3718. REVIEW OF SYSTEMS: As stated above in HPI. The rest of the 14-point review of systems is negative. PHYSICAL EXAMINATION: GENERAL: Still very weak, able to answer questions and speak today. A&O x 4, central line in place right side HEENT: Pupils are round and equally reacting to light. EOMI. No scleral icterus. No conjunctival pallor. Normocephalic, atraumatic. CARDIOVASCULAR: S1 and S2 present. No S3 PULMONARY: Crackles in lower lung field bilaterally with decreased air entry bilaterally ABDOMEN: Mildly distended patient winces to deep palpation MUSCULOSKELETAL: No joint swelling or deformity. EXTREMITIES: Minimal edema to midshin NEUROLOGICAL: Gross neurological examination did not reveal any focal deficits. SKIN: No rashes. Assessment and Plan #Wide-complex tachycardia resolved with amiodarone #Hypotension requiring pressors likely secondary to above #Acute on chronic systolic heart failure (EF 10-15% per echo 02/03) #Chest pain likely secondary to CHF exacerbation Remain in the ICU currently, off pressors at this time Central line in place Continuing IV amiodarone per cardiology Continue beta-blanca Hold diuretics - Monitor CMP, magnesium Cardiology consulted, appreciate further recommendations #Acute hypoxic respiratory failure secondary to above #Lactic acidosis possibly due to sepsis or malperfusion #Metabolic acidosis with compensated respiratory alkalosis secondary to above #Acute leukocytosis with fever (16.24> 12.44) Discontinued ceftriaxone and vancomycin, started ertapenem 0.5 g daily Blood cultures x 2, repeat lactic acid, -Monitor CBC Consult to infectious disease for evaluation of fever, hypotension, lactic aci dosis Consider CT abdomen for evaluation of pain + fever C x-ray ordered and negative for acute pathology reveal central line in place UA with reflex: Negative for acute infection IV bicarb for management of metabolic acidosis in case of end-stage kidney disease #WENDY likely secondary to polypharmacy or cardiorenal syndrome (increased 3.41 today) # Hyponatremia secondary to polypharmacy #History of nephrectomy -Immunofixation, protein electrophoresis, and PTH to assess cause of kidney f ailure (pending) -Hold fluid restriction until pressors titrated down Nephrology continues to follow # Ischemic hepatitis likely secondary to malperfusion #Abdominal pains likely secondary to above #History of drug-induced liver injury Continue to monitor CMP daily Hold hepatotoxic medications Continue fluid resuscitation and pressors for adequate perfusion, titrate as tolerated #Hypertension (currently in-active) Continue home medication #T2DM Lantus 10 units SQ twice daily Humalog 3 times daily with meals Sliding scale insulin #Anxiety depression Continue home medication #Pain Multimodal pain management #Gout Continue home medication #Guarded prognosis Advanced directives discussed with family still full code DVT ppx: Eliquis 2.5 mg p.o. twice daily GI ppx: Protonix CODE STATUS: Full code Anticipated discharge place: Pending clinical course Anticipated discharge time: Pending clinical course Objective - Vital Signs Vital signs: Vital Signs Temp 97.8 F 02/20/25 04:00 Pulse 94 02/20/25 07:00 Resp 20 02/20/25 07:00 BP 105/63 02/19/25 22:00 Pulse Ox 100 02/20/25 04:00 FiO2 Intake & Output 02/19/25 02/20/25 02/20/25 18:59 06:59 18:59 Intake Total 922.367 4121.724 66 Output Total 50 215 20 Balance 602.147 3925.724 46 Weight 91.8 kg Intake: IV 645 726 66 0.9 carrier 110 10 Dextrose 5% in Water 1, 400 550 50 000 ml @ 50 mls/hr IV . Q23H CORIE with Sodium Bicarb (1 Meq/ml) 150 ml Rx#:[id number] Invasive Line 1 10 Invasive Line 2 10 Pressure Bag - CVP & Art 66 6 Line Sodium Chloride 0.9% 500 225 ml 500 ml @ 75 mls/hr IV .Q6H40M CORIE Rx#:[id number] Intake, IV Titration 71.348 341.724 Amount Amiodarone 450 mg In 247.505 Dextrose 5% in Water 250 ml @ 0.5 MG/MIN 16.667 mls/hr IV .Q15H CORIE Rx#: [id number] Norepinephrine 8 mg In 71.348 94.219 Sodium Chloride 0.9% 250 ml @ 0.03 MCG/KG/MIN 5. 225 mls/hr IV .Q24H CORIE Rx#:[id number] Oral 320 Output: Urine 50 215 20 Other: Voiding Method Indwelling Catheter Indwelling Catheter ABP, PAP, CO, CI - Last Documented Arterial Blood Pressure 99/58 - Labs CBC & Chem 7: 02/20/25 04:34 02/20/25 04:34 Labs: Abnormal Lab Results - Last 24 Hours (Table) 02/19/25 02/19/25 02/19/25 Range/Units 06:20 06:20 10:10 WBC 12.44 H (4.50-10.00) 10*3/uL RBC 3.52 L (4.10-5.20) 10*6/uL Hgb 10.7 L (12.0-15.0) g/dL Hct 33.2 L (37.2-46.3) % Plt Count (140-440) 10*3/uL Immature Gran # (0.00-0.04) 10*3/uL Neutrophils # 11.96 H (1.80-7.70) 10*3/uL Lymphocytes # 0.15 L (0.90-5.00) 10*3/uL Eosinophils # 0.00 L (0.04-0.35) 10*3/uL Sodium (137-145) mmol/L Chloride (98-107) mmol/L Carbon Dioxide (22-30) mmol/L BUN (7-17) mg/dL Creatinine (0.52-1.04) mg/dL Glucose (74-99) mg/dL POC Glucose (mg/dL) (70-110) mg/dL Plasma Lactic Acid Gene 10.4 H* 9.6 H* (0.7-2.0) mmol/L Calcium (8.4-10.2) mg/dL Total Bilirubin (0.2-1.3) mg/dL AST (14-36) U/L ALT (4-34) U/L Total Protein (6.3-8.2) g/dL Albumin (3.5-5.0) g/dL 02/19/25 02/19/25 02/19/25 Range/Units 12:32 14:15 17:09 WBC (4.50-10.00) 10*3/uL RBC (4.10-5.20) 10*6/uL Hgb (12.0-15.0) g/dL Hct (37.2-46.3) % Plt Count (140-440) 10*3/uL Immature Gran # (0.00-0.04) 10*3/uL Neutrophils # (1.80-7.70) 10*3/uL Lymphocytes # (0.90-5.00) 10*3/uL Eosinophils # (0.04-0.35) 10*3/uL Sodium 130 L (137-145) mmol/L Chloride 93 L (98-107) mmol/L Carbon Dioxide 18 L (22-30) mmol/L BUN 64 H (7-17) mg/dL Creatinine 3.41 H (0.52-1.04) mg/dL Glucose 101 H (74-99) mg/dL POC Glucose (mg/dL) (70-110) mg/dL Plasma Lactic Acid Gene 7.9 H* 9.8 H* (0.7-2.0) mmol/L Calcium (8.4-10.2) mg/dL Total Bilirubin 1.5 H (0.2-1.3) mg/dL AST 5905 H (14-36) U/L ALT 2456 H (4-34) U/L Total Protein 5.4 L (6.3-8.2) g/dL Albumin 3.3 L (3.5-5.0) g/dL 02/19/25 02/20/25 02/20/25 Range/Units 17:09 00:40 04:34 WBC 14.40 H (4.50-10.00) 10*3/uL RBC 3.24 L (4.10-5.20) 10*6/uL Hgb 9.9 L (12.0-15.0) g/dL Hct 30.3 L (37.2-46.3) % Plt Count 81 L D (140-440) 10*3/uL Immature Gran # 0.07 H (0.00-0.04) 10*3/uL Neutrophils # 13.30 H (1.80-7.70) 10*3/uL Lymphocytes # 0.38 L (0.90-5.00) 10*3/uL Eosinophils # 0.00 L (0.04-0.35) 10*3/uL Sodium (137-145) mmol/L Chloride (98-107) mmol/L Carbon Dioxide (22-30) mmol/L BUN (7-17) mg/dL Creatinine (0.52-1.04) mg/dL Glucose (74-99) mg/dL POC Glucose (mg/dL) 130 H 131 H (70-110) mg/dL Plasma Lactic Acid Gene (0.7-2.0) mmol/L Calcium (8.4-10.2) mg/dL Total Bilirubin (0.2-1.3) mg/dL AST (14-36) U/L ALT (4-34) U/L Total Protein (6.3-8.2) g/dL Albumin (3.5-5.0) g/dL 02/20/25 Range/Units 04:34 WBC (4.50-10.00) 10*3/uL RBC (4.10-5.20) 10*6/uL Hgb (12.0-15.0) g/dL Hct (37.2-46.3) % Plt Count (140-440) 10*3/uL Immature Gran # (0.00-0.04) 10*3/uL Neutrophils # (1.80-7.70) 10*3/uL Lymphocytes # (0.90-5.00) 10*3/uL Eosinophils # (0.04-0.35) 10*3/uL Sodium 131 L (137-145) mmol/L Chloride 91 L (98-107) mmol/L Carbon Dioxide 20 L (22-30) mmol/L BUN 69 H (7-17) mg/dL Creatinine 3.92 H (0.52-1.04) mg/dL Glucose 138 H (74-99) mg/dL POC Glucose (mg/dL) (70-110) mg/dL Plasma Lactic Acid Gene (0.7-2.0) mmol/L Calcium 7.8 L (8.4-10.2) mg/dL Total Bilirubin (0.2-1.3) mg/dL AST (14-36) U/L ALT (4-34) U/L Total Protein (6.3-8.2) g/dL Albumin (3.5-5.0) g/dL
--- NOTE | 2025-02-20 15:15 | P.PN ---
Subjective Progress Note Date: 02/20/25 Principal diagnosis: Reason for follow-up is sepsis Patient is a 74-year-old female with a past medical history significant for Asthma, Coronary Artery Disease (CAD), Chest Pain / Angina, Heart Failure, Diabetes Mellitus, GERD/Reflux, Hyperlipidemia, Hypertension, Myocardial Infarction (TN), Osteoarthritis (OA), Pneumonia, Renal Disease, Syncope, recently did have a left nephrectomy presented to the hospital with nausea vomiting subsequent have a fever prompting this consultation. On today's evaluation that is 02/20/2025, patient did have resolution of fever and temperature of 96.9 F this morning and denies having any chills, patient is on 6 L nasal oxygen and breathing comfortably no chest pain or cough, the patient did not have any nausea vomiting abdominal pain slightly decreased in intensity. Patient white count is 14.40 lactic acid is 9.8 slight worsening of the liver enzymes Objective - Vital Signs Vital signs: Vital Signs Temp 96.9 F L 02/20/25 12:00 Pulse 92 02/20/25 12:30 Resp 24 02/20/25 12:30 BP 105/63 02/20/25 12:00 Pulse Ox 100 02/20/25 04:00 FiO2 Intake & Output 02/19/25 02/20/25 02/20/25 18:59 06:59 18:59 Intake Total 320.945 5365.724 517.015 Output Total 50 215 100 Balance 976.417 3394.724 417.015 Weight 91.8 kg Intake: IV 645 726 396 0.9 carrier 110 60 Dextrose 5% in Water 1, 400 550 300 000 ml @ 50 mls/hr IV . Q23H CORIE with Sodium Bicarb (1 Meq/ml) 150 ml Rx#:[id number] Invasive Line 1 10 Invasive Line 2 10 Pressure Bag - CVP & Art 66 36 Line Sodium Chloride 0.9% 500 225 ml 500 ml @ 75 mls/hr IV .Q6H40M CORIE Rx#:[id number] Intake, IV Titration 71.348 341.724 1.015 Amount Amiodarone 450 mg In 247.505 Dextrose 5% in Water 250 ml @ 0.5 MG/MIN 16.667 mls/hr IV .Q15H CORIE Rx#: [id number] Norepinephrine 8 mg In 71.348 94.219 1.015 Sodium Chloride 0.9% 250 ml @ 0.03 MCG/KG/MIN 5. 225 mls/hr IV .Q24H [facility] Rx#:[id number] Oral 320 120 Output: Urine 50 215 100 Other: Voiding Method Indwelling Catheter Indwelling Catheter ABP, PAP, CO, CI - Last Documented Arterial Blood Pressure 95/57 - Exam GENERAL DESCRIPTION: An elderly female lying in bed in no distress RESPIRATORY SYSTEM: Unlabored breathing , decreased breath sounds at bases HEART: S1 S2 regular rate and rhythm , ABDOMEN: Soft , mild tenderness EXTREMITIES: No edema feet - Labs CBC & Chem 7: 02/20/25 04:34 02/20/25 04:34 Labs: Abnormal Lab Results - Last 24 Hours (Table) 02/19/25 02/19/25 02/19/25 Range/Units 12:32 14:15 17:09 WBC (4.50-10.00) 10*3/uL RBC (4.10-5.20) 10*6/uL Hgb (12.0-15.0) g/dL Hct (37.2-46.3) % Plt Count (140-440) 10*3/uL Immature Gran # (0.00-0.04) 10*3/uL Neutrophils # (1.80-7.70) 10*3/uL Lymphocytes # (0.90-5.00) 10*3/uL Eosinophils # (0.04-0.35) 10*3/uL ABG Lactic Acid (0.5-1.6) mmol/L Sodium 130 L (137-145) mmol/L Chloride 93 L (98-107) mmol/L Carbon Dioxide 18 L (22-30) mmol/L BUN 64 H (7-17) mg/dL Creatinine 3.41 H (0.52-1.04) mg/dL Glucose 101 H (74-99) mg/dL POC Glucose (mg/dL) (70-110) mg/dL Plasma Lactic Acid Gene 7.9 H* 9.8 H* (0.7-2.0) mmol/L Calcium (8.4-10.2) mg/dL Total Bilirubin 1.5 H (0.2-1.3) mg/dL AST 5905 H (14-36) U/L ALT 2456 H (4-34) U/L Total Protein 5.4 L (6.3-8.2) g/dL Albumin 3.3 L (3.5-5.0) g/dL 02/19/25 02/20/25 02/20/25 Range/Units 17:09 00:40 04:34 WBC 14.40 H (4.50-10.00) 10*3/uL RBC 3.24 L (4.10-5.20) 10*6/uL Hgb 9.9 L (12.0-15.0) g/dL Hct 30.3 L (37.2-46.3) % Plt Count 81 L D (140-440) 10*3/uL Immature Gran # 0.07 H (0.00-0.04) 10*3/uL Neutrophils # 13.30 H (1.80-7.70) 10*3/uL Lymphocytes # 0.38 L (0.90-5.00) 10*3/uL Eosinophils # 0.00 L (0.04-0.35) 10*3/uL ABG Lactic Acid (0.5-1.6) mmol/L Sodium (137-145) mmol/L Chloride (98-107) mmol/L Carbon Dioxide (22-30) mmol/L BUN (7-17) mg/dL Creatinine (0.52-1.04) mg/dL Glucose (74-99) mg/dL POC Glucose (mg/dL) 130 H 131 H (70-110) mg/dL Plasma Lactic Acid Gene (0.7-2.0) mmol/L Calcium (8.4-10.2) mg/dL Total Bilirubin (0.2-1.3) mg/dL AST (14-36) U/L ALT (4-34) U/L Total Protein (6.3-8.2) g/dL Albumin (3.5-5.0) g/dL 02/20/25 02/20/25 02/20/25 Range/Units 04:34 04:34 10:14 WBC (4.50-10.00) 10*3/uL RBC (4.10-5.20) 10*6/uL Hgb (12.0-15.0) g/dL Hct (37.2-46.3) % Plt Count (140-440) 10*3/uL Immature Gran # (0.00-0.04) 10*3/uL Neutrophils # (1.80-7.70) 10*3/uL Lymphocytes # (0.90-5.00) 10*3/uL Eosinophils # (0.04-0.35) 10*3/uL ABG Lactic Acid 10.1 H* (0.5-1.6) mmol/L Sodium 131 L (137-145) mmol/L Chloride 91 L (98-107) mmol/L Carbon Dioxide 20 L (22-30) mmol/L BUN 69 H (7-17) mg/dL Creatinine 3.92 H (0.52-1.04) mg/dL Glucose 138 H (74-99) mg/dL POC Glucose (mg/dL) (70-110) mg/dL Plasma Lactic Acid Gene (0.7-2.0) mmol/L Calcium 7.8 L (8.4-10.2) mg/dL Total Bilirubin (0.2-1.3) mg/dL AST 7258 H (14-36) U/L ALT 3718 H (4-34) U/L Total Protein (6.3-8.2) g/dL Albumin (3.5-5.0) g/dL 02/20/25 Range/Units 12:10 WBC (4.50-10.00) 10*3/uL RBC (4.10-5.20) 10*6/uL Hgb (12.0-15.0) g/dL Hct (37.2-46.3) % Plt Count (140-440) 10*3/uL Immature Gran # (0.00-0.04) 10*3/uL Neutrophils # (1.80-7.70) 10*3/uL Lymphocytes # (0.90-5.00) 10*3/uL Eosinophils # (0.04-0.35) 10*3/uL ABG Lactic Acid (0.5-1.6) mmol/L Sodium (137-145) mmol/L Chloride (98-107) mmol/L Carbon Dioxide (22-30) mmol/L BUN (7-17) mg/dL Creatinine (0.52-1.04) mg/dL Glucose (74-99) mg/dL POC Glucose (mg/dL) 202 H (70-110) mg/dL Plasma Lactic Acid Gene (0.7-2.0) mmol/L Calcium (8.4-10.2) mg/dL Total Bilirubin (0.2-1.3) mg/dL AST (14-36) U/L ALT (4-34) U/L Total Protein (6.3-8.2) g/dL Albumin (3.5-5.0) g/dL Assessment and Plan (1) Sepsis Current Visit: Yes Status: Acute Code(s): A41.9 - SEPSIS, UNSPECIFIED ORGANISM SNOMED Code(s): 90623932 (2) Allergy to multiple antibiotics Current Visit: No Status: Acute Code(s): Z88.1 - ALLERGY STATUS TO OTHER ANTIBIOTIC AGENTS SNOMED Code(s): 572257847 (3) Elevated LFTs Current Visit: No Status: Acute Code(s): R79.89 - OTHER SPECIFIED ABNORMAL FINDINGS OF BLOOD CHEMISTRY SNOMED Code(s): 172001917 Plan: 1patient with sepsis in this patient did have fever tachycardia elevated white count as well as elevated lactic acid source likely abdominal in this patient who did have a some abdominal pain as well as tenderness and recent history of left-sided nephrectomy for known functioning infected kidney 2-patient with multiple antibiotic ALLERGIES that would limit the number of antibiotic safe to use 3-patient did have a repeat CT of abdominal pelvis did not mention any intra- abdominal abscess 4-patient did have resolution of the fever mention feeling slightly better slight worsening of the white count as well as liver enzymes for now continue with the Invanz and will check an ultrasound of the right upper quadrant area Dictation was produced using [employer] dictation software. please excuse any grammatical, word or spelling errors. Time with Patient: Less than 30
[2025-02-20 17:57] LABS: Glucose,Whole Blood 270 mg/dL (70-110)
--- NOTE | 2025-02-20 18:22 | US ---
EXAMINATION TYPE: US abdomen limited DATE OF EXAM: 02/20/2025 Exam done portable in ICU COMPARISON: CT 2024 CLINICAL INDICATION: Female, 74 years old with history of Elevated liver enzymes and sepsis; TECHNIQUE: Grayscale and color Doppler imaging of the right upper quadrant was performed. FINDINGS: EXAM MEASUREMENTS: Liver Length: 15.5 cm Gallbladder Wall: 0.3 cm CBD: N/A Right Kidney: 11.0 x 4.7 x 5.6 cm Difficult and limited study due to patient body habitus and position Pancreas: obscured by overlying midline bowel gas Liver: limited by rib shadowing and overlying bowel gas Gallbladder: Significantly limited evaluation. No evidence of color wall thickening/edema. No defini te shadowing gallstone. Evidence for sonographic Patricio's sign: no CBD: obscured by overlying bowel gas Right Kidney: limited by overlying bowel gas, visualized portions appear wnl IMPRESSION: No acute pathology in the right upper quadrant within the limitations described above. [facility], , 02/20/2025 6:19 PM
[2025-02-20] MEDS: AMIODARONE 450 MG in DEXTROSE 5% IN WATER 250 ML IV SCH (19:50)
[2025-02-20] MEDS: MELATONIN 5 MG TABLET PO SCH (20:54)
[2025-02-20 21:13] LABS: Glucose,Whole Blood 252 mg/dL (70-110)
[2025-02-20] MEDS: ALPRAZolam 0.25 MG TAB PO PRN (23:18)
[2025-02-21 04:53] LABS: Basophils # (A) 0.07 10*3/uL (0.00-0.10); Basophils % (A) 0.5 %; Eosinophils # (A) 0.09 10*3/uL (0.04-0.35); Eosinophils % (A) 0.6 %; HCT 34.2 % (37.2-46.3); HGB 11.5 g/dL (12.0-15.0); Lymphocytes # (A) 0.92 10*3/uL (0.90-5.00); Lymphocytes % (A) 6.0 %; MCH 30.3 pg (27.0-32.0); MCHC 33.6 g/dL (32.0-37.0); MCV 90.2 fL (80.0-97.0); Monocytes # (A) 0.71 10*3/uL (0.20-1.00); Monocytes % (A) 4.7 %; Neutrophils # (A) 13.29 10*3/uL (1.80-7.70); Neutrophils % (A) 87.3 %; RBC 3.79 10*6/uL (4.10-5.20); RDW 16.8 % (11.5-14.5); WBC 15.22 10*3/uL (4.50-10.00)
[2025-02-21 05:14] LABS: African American GFR (CKD) 12 (>60 ml/min/1.73 sqM); Anion Gap 15 mmol/L; Blood Urea Nitrogen 84 mg/dL (7-17); Calcium 7.1 mg/dL (8.4-10.2); Carbon Dioxide 26 mmol/L (22-30); Chloride 84 mmol/L (98-107); Glucose 200 mg/dL (74-99); Non-African American GFR(CKD) 10 (>60 ml/min/1.73 sqM); Potassium 3.8 mmol/L (3.5-5.1); Sodium 125 mmol/L (137-145)
[2025-02-21 05:47] LABS: Platelet Count 60 10*3/uL (140-440)
[2025-02-21 06:46] LABS: Glucose,Whole Blood 210 mg/dL (70-110)
--- NOTE | 2025-02-21 07:14 | XR ---
EXAMINATION TYPE: XR chest 1V portable DATE OF EXAM: 02/21/2025 5:24 AM COMPARISON: Chest radiographs from 02/19/2025 TECHNIQUE: XR chest 1V portable Portable AP radiograph of the chest. CLINICAL INDICATION:Female, 74 years old with history of chf; FINDINGS: Lungs/Pleura: Blunting of the left costophrenic angle. No focal consolidation or pneumothorax. Pulmonary vascularity: Unremarkable. Heart/mediastinum: Cardiomediastinal silhouette is enlarged and stable. Aortic valvular replacement. Atherosclerotic calcifications are seen in the aorta. Single-lead cardiac conduction device overlying the left hemithorax with lead projecting over the right ventricle. Musculoskeletal: No acute osseous pathology. Midline sternotomy wires are noted and stable. Right janeth ulder arthroplasty change. Other findings: None Lines/Tubes: Right IJ approach central venous catheter distal tip of the superior cavoatrial junction. IMPRESSION: Cardiomegaly with small pleural effusion. No overt pulmonary vascular congestion. [facility], , 02/21/2025 7:12 AM
[2025-02-21 08:34] LABS: ALT 4469.0 U/L (4-34); AST 4971.0 U/L (14-36)
--- NOTE | 2025-02-21 09:21 | P.PN ---
Subjective Progress Note Date: 02/21/25 PROGRESS NOTE The patient is a 74-year-old female with known history of severe ischemic cardiomyopathy, status post TAVR, status post ICD implantation. She has a known history of chronic kidney disease, ventricular tachycardia who presented with symptoms of progressive dyspnea. Yesterday had episode of wide-complex rhythm and was transferred to the ICU. She is in sinus mechanism at this time. She is awake, following commands, very weak, not verbalizing. She is on IV amiodarone, she is off norepinephrine that was started earlier prior to transfer to the ICU. Her urinary output is stable. She had no recurrent wide-complex tachycardia. She recently underwent nephrectomy. She had recent admission with ventricular tachycardia. Her echocardiogram in the past showed an ejection fraction of 10 to 15% with moderate mitral and severe tricuspid regurgitation. February 20: She is more awake and alert today, she is off norepinephrine. She continues to be in sinus mechanism on IV amiodarone. Her urinary output remains low but mildly improved. She is nauseated. She has some fullness in the chest. She has no palpitations. She had no evidence of recurrent ventricular tachycardia. I discussed the findings with her and her family and she wants to be DNR, understanding the risks. She has not been taking her oral medication because of her prior mental status. February 21: The patient is somnolent, opening her eyes to verbal stimulation. She continues to be on norepinephrine with poor urinary output. She is in atrial fibrillation with controlled ventricular response. She vomited yesterday. She had no further episodes of ventricular tachycardia. There is some improvement in her liver function test but worsening of her renal functions. She vomited yesterday. Her blood cultures are positive. Medications: IV amiodarone, metoprolol tartrate 25 mg 3 times daily, isosorbide mononitrate 60 mg daily, Eliquis 2.5 mg twice a day, daptomycin, ertapenem, Zofran PHYSICAL EXAMINATION: 74-year-old female, following command, very weak, blood pressure 102/70 heart rate 100 LUNGS: Clear to auscultation HEART: Irregular rate and rhythm, S1, S2. No S3. Systolic ejection murmur, 2/6 at the base ABDOMEN: Soft, nontender, no organomegaly EXTREMETIES: + 2 edema LAB: Sodium 125, BUN 84, creatinine 4.02. Hemoglobin 11.5, WBC 15.22. Her AST 4971 and ALT 404,069 IMPRESSION: 1. Recurrent ventricular tachycardia in a patient with known history of severe ischemic cardiomyopathy, no recurrence 2. Status post CABG 3. Status post TAVR 4. Worsening renal function acute on chronic chronic kidney disease 5. History of diabetes 6. Generalized weakness 7. Status post recent nephrectomy 8. Acute liver injury PLAN: 1. Continue IV amiodarone for now 2. Continue beta-blanca 3. Follow liver function test 4. Follow renal functions 5. IV Lasix x 1 6. Prognosis is guarded, I discussed the situation with the family, if there is no improvement in 24 hours we will have another discussion about possible hospice care. Unfortunately the prognosis is very poor. Objective - Vital Signs Vital signs: Vital Signs Temp 97.9 F 02/21/25 00:00 Pulse 102 H 02/21/25 07:00 Resp 11 L 02/21/25 07:00 BP 105/63 02/20/25 21:15 Pulse Ox 100 02/20/25 04:00 FiO2 Intake & Output 02/20/25 02/21/25 02/21/25 18:59 06:59 18:59 Intake Total 602.339 9777.718 66 Output Total 190 215 20 Balance 789.015 902.718 46 Weight 97.6 kg Intake: IV 858 726 66 0.9 carrier 130 110 10 Dextrose 5% in Water 1, 650 550 50 000 ml @ 50 mls/hr IV . Q23H CORIE with Sodium Bicarb (1 Meq/ml) 150 ml Rx#:[id number] Pressure Bag - CVP & Art 78 66 6 Line Intake, IV Titration 1.015 151.718 Amount Norepinephrine 8 mg In 1.015 151.718 Sodium Chloride 0.9% 250 ml @ 0.03 MCG/KG/MIN 5. 225 mls/hr IV .Q24H CORIE Rx#:[id number] Oral 120 240 Output: Urine 190 215 20 Other: Voiding Method Indwelling Catheter Indwelling Catheter # Bowel Movements 0 0 ABP, PAP, CO, CI - Last Documented Arterial Blood Pressure 102/69 - Labs CBC & Chem 7: 02/21/25 04:40 02/21/25 04:40 Labs: Abnormal Lab Results - Last 24 Hours (Table) 02/20/25 02/20/25 02/20/25 Range/Units 04:34 10:14 12:10 WBC (4.50-10.00) 10*3/uL RBC (4.10-5.20) 10*6/uL Hgb (12.0-15.0) g/dL Hct (37.2-46.3) % Plt Count (140-440) 10*3/uL Immature Gran # (0.00-0.04) 10*3/uL Neutrophils # (1.80-7.70) 10*3/uL ABG Lactic Acid 10.1 H* (0.5-1.6) mmol/L Sodium (137-145) mmol/L Chloride (98-107) mmol/L BUN (7-17) mg/dL Creatinine (0.52-1.04) mg/dL Glucose (74-99) mg/dL POC Glucose (mg/dL) 202 H (70-110) mg/dL Calcium (8.4-10.2) mg/dL AST 7258 H (14-36) U/L ALT 3718 H (4-34) U/L 02/20/25 02/20/25 02/20/25 Range/Units 12:57 12:58 17:56 WBC (4.50-10.00) 10*3/uL RBC (4.10-5.20) 10*6/uL Hgb (12.0-15.0) g/dL Hct (37.2-46.3) % Plt Count (140-440) 10*3/uL Immature Gran # (0.00-0.04) 10*3/uL Neutrophils # (1.80-7.70) 10*3/uL ABG Lactic Acid 10.3 H* (0.5-1.6) mmol/L Sodium (137-145) mmol/L Chloride (98-107) mmol/L BUN (7-17) mg/dL Creatinine (0.52-1.04) mg/dL Glucose (74-99) mg/dL POC Glucose (mg/dL) 250 H 270 H (70-110) mg/dL Calcium (8.4-10.2) mg/dL AST (14-36) U/L ALT (4-34) U/L 02/20/25 02/20/25 02/21/25 Range/Units 18:46 21:11 01:39 WBC (4.50-10.00) 10*3/uL RBC (4.10-5.20) 10*6/uL Hgb (12.0-15.0) g/dL Hct (37.2-46.3) % Plt Count (140-440) 10*3/uL Immature Gran # (0.00-0.04) 10*3/uL Neutrophils # (1.80-7.70) 10*3/uL ABG Lactic Acid 10.2 H* 7.4 H* (0.5-1.6) mmol/L Sodium (137-145) mmol/L Chloride (98-107) mmol/L BUN (7-17) mg/dL Creatinine (0.52-1.04) mg/dL Glucose (74-99) mg/dL POC Glucose (mg/dL) 252 H (70-110) mg/dL Calcium (8.4-10.2) mg/dL AST (14-36) U/L ALT (4-34) U/L 02/21/25 02/21/25 02/21/25 Range/Units 04:40 04:40 04:40 WBC 15.22 H (4.50-10.00) 10*3/uL RBC 3.79 L (4.10-5.20) 10*6/uL Hgb 11.5 L (12.0-15.0) g/dL Hct 34.2 L (37.2-46.3) % Plt Count 60 L (140-440) 10*3/uL Immature Gran # 0.14 H (0.00-0.04) 10*3/uL Neutrophils # 13.29 H (1.80-7.70) 10*3/uL ABG Lactic Acid (0.5-1.6) mmol/L Sodium 125 L (137-145) mmol/L Chloride 84 L (98-107) mmol/L BUN 84 H (7-17) mg/dL Creatinine 4.02 H (0.52-1.04) mg/dL Glucose 200 H (74-99) mg/dL POC Glucose (mg/dL) (70-110) mg/dL Calcium 7.1 L (8.4-10.2) mg/dL AST 4971 H (14-36) U/L ALT 4469 H (4-34) U/L 02/21/25 Range/Units 06:44 WBC (4.50-10.00) 10*3/uL RBC (4.10-5.20) 10*6/uL Hgb (12.0-15.0) g/dL Hct (37.2-46.3) % Plt Count (140-440) 10*3/uL Immature Gran # (0.00-0.04) 10*3/uL Neutrophils # (1.80-7.70) 10*3/uL ABG Lactic Acid (0.5-1.6) mmol/L Sodium (137-145) mmol/L Chloride (98-107) mmol/L BUN (7-17) mg/dL Creatinine (0.52-1.04) mg/dL Glucose (74-99) mg/dL POC Glucose (mg/dL) 210 H (70-110) mg/dL Calcium (8.4-10.2) mg/dL AST (14-36) U/L ALT (4-34) U/L Microbiology - Last 24 Hours (Table) 02/19/25 07:49 Blood Culture Gram Stain - Preliminary Blood Blood Culture - Preliminary Presumptive MRSA Molecular ID 02/19/25 04:50 Urine Culture - Final Urine,Voided
[2025-02-21] MEDS: FUROSEMIDE 10 MG/ML 10 ML VIAL IV STA (09:50)
--- NOTE | 2025-02-21 10:11 | P.PN ---
Subjective Patient is seen for follow-up for acute kidney injury and chronic kidney disease. Currently maintained on amiodarone drip for an episode of V. tach Off of IV fluids. Urine output remains low but at 20 cc an hour. Complaining of nausea. Patient is a bit more sleepy today Serum creatinine increased to 4.0 today. Liver enzymes have decreased. Levophed was discontinued but started back. Currently at 0.05 mcg/kg Objective - Vital Signs Vital signs: Vital Signs Temp 97.9 F 02/21/25 00:00 Pulse 102 H 02/21/25 07:00 Resp 11 L 02/21/25 07:00 BP 105/63 02/20/25 21:15 Pulse Ox 100 02/20/25 04:00 FiO2 Intake & Output 02/20/25 02/21/25 02/21/25 18:59 06:59 18:59 Intake Total 350.992 5627.718 66 Output Total 190 215 20 Balance 789.015 902.718 46 Weight 97.6 kg Intake: IV 858 726 66 0.9 carrier 130 110 10 Dextrose 5% in Water 1, 650 550 50 000 ml @ 50 mls/hr IV . Q23H CORIE with Sodium Bicarb (1 Meq/ml) 150 ml Rx#:[id number] Pressure Bag - CVP & Art 78 66 6 Line Intake, IV Titration 1.015 151.718 Amount Norepinephrine 8 mg In 1.015 151.718 Sodium Chloride 0.9% 250 ml @ 0.03 MCG/KG/MIN 5. 225 mls/hr IV .Q24H CORIE Rx#:[id number] Oral 120 240 Output: Urine 190 215 20 Other: Voiding Method Indwelling Catheter Indwelling Catheter # Bowel Movements 0 0 ABP, PAP, CO, CI - Last Documented Arterial Blood Pressure 102/69 - Exam Patient is awake, comfortable, no acute distress Examination of the heart S1 and S2 Examination of the lungs bilateral breath sounds are heard Abdomen is soft nontender Examination of lower extremities shows 1+ edema VISUALIZER exam grossly intact - Labs CBC & Chem 7: 02/21/25 04:40 02/21/25 04:40 Labs: Abnormal Lab Results - Last 24 Hours (Table) 02/20/25 02/20/25 02/20/25 Range/Units 04:34 10:14 12:10 WBC (4.50-10.00) 10*3/uL RBC (4.10-5.20) 10*6/uL Hgb (12.0-15.0) g/dL Hct (37.2-46.3) % Plt Count (140-440) 10*3/uL Immature Gran # (0.00-0.04) 10*3/uL Neutrophils # (1.80-7.70) 10*3/uL ABG Lactic Acid 10.1 H* (0.5-1.6) mmol/L Sodium (137-145) mmol/L Chloride (98-107) mmol/L BUN (7-17) mg/dL Creatinine (0.52-1.04) mg/dL Glucose (74-99) mg/dL POC Glucose (mg/dL) 202 H (70-110) mg/dL Calcium (8.4-10.2) mg/dL AST 7258 H (14-36) U/L ALT 3718 H (4-34) U/L 02/20/25 02/20/25 02/20/25 Range/Units 12:57 12:58 17:56 WBC (4.50-10.00) 10*3/uL RBC (4.10-5.20) 10*6/uL Hgb (12.0-15.0) g/dL Hct (37.2-46.3) % Plt Count (140-440) 10*3/uL Immature Gran # (0.00-0.04) 10*3/uL Neutrophils # (1.80-7.70) 10*3/uL ABG Lactic Acid 10.3 H* (0.5-1.6) mmol/L Sodium (137-145) mmol/L Chloride (98-107) mmol/L BUN (7-17) mg/dL Creatinine (0.52-1.04) mg/dL Glucose (74-99) mg/dL POC Glucose (mg/dL) 250 H 270 H (70-110) mg/dL Calcium (8.4-10.2) mg/dL AST (14-36) U/L ALT (4-34) U/L 02/20/25 02/20/25 02/21/25 Range/Units 18:46 21:11 01:39 WBC (4.50-10.00) 10*3/uL RBC (4.10-5.20) 10*6/uL Hgb (12.0-15.0) g/dL Hct (37.2-46.3) % Plt Count (140-440) 10*3/uL Immature Gran # (0.00-0.04) 10*3/uL Neutrophils # (1.80-7.70) 10*3/uL ABG Lactic Acid 10.2 H* 7.4 H* (0.5-1.6) mmol/L Sodium (137-145) mmol/L Chloride (98-107) mmol/L BUN (7-17) mg/dL Creatinine (0.52-1.04) mg/dL Glucose (74-99) mg/dL POC Glucose (mg/dL) 252 H (70-110) mg/dL Calcium (8.4-10.2) mg/dL AST (14-36) U/L ALT (4-34) U/L 02/21/25 02/21/25 02/21/25 Range/Units 04:40 04:40 04:40 WBC 15.22 H (4.50-10.00) 10*3/uL RBC 3.79 L (4.10-5.20) 10*6/uL Hgb 11.5 L (12.0-15.0) g/dL Hct 34.2 L (37.2-46.3) % Plt Count 60 L (140-440) 10*3/uL Immature Gran # 0.14 H (0.00-0.04) 10*3/uL Neutrophils # 13.29 H (1.80-7.70) 10*3/uL ABG Lactic Acid (0.5-1.6) mmol/L Sodium 125 L (137-145) mmol/L Chloride 84 L (98-107) mmol/L BUN 84 H (7-17) mg/dL Creatinine 4.02 H (0.52-1.04) mg/dL Glucose 200 H (74-99) mg/dL POC Glucose (mg/dL) (70-110) mg/dL Calcium 7.1 L (8.4-10.2) mg/dL AST 4971 H (14-36) U/L ALT 4469 H (4-34) U/L 02/21/25 Range/Units 06:44 WBC (4.50-10.00) 10*3/uL RBC (4.10-5.20) 10*6/uL Hgb (12.0-15.0) g/dL Hct (37.2-46.3) % Plt Count (140-440) 10*3/uL Immature Gran # (0.00-0.04) 10*3/uL Neutrophils # (1.80-7.70) 10*3/uL ABG Lactic Acid (0.5-1.6) mmol/L Sodium (137-145) mmol/L Chloride (98-107) mmol/L BUN (7-17) mg/dL Creatinine (0.52-1.04) mg/dL Glucose (74-99) mg/dL POC Glucose (mg/dL) 210 H (70-110) mg/dL Calcium (8.4-10.2) mg/dL AST (14-36) U/L ALT (4-34) U/L Microbiology - Last 24 Hours (Table) 02/19/25 07:49 Blood Culture Gram Stain - Preliminary Blood Blood Culture - Preliminary Presumptive MRSA Molecular ID 02/19/25 04:50 Urine Culture - Final Urine,Voided Assessment and Plan Assessment: 1. Acute kidney injury secondary to hemodynamic ATN and cardiorenal syndrome. Renal function worse. Creatinine 4.0 today. Nonoliguric. 2. Chronic kidney disease stage IV (eGFR of 18) with baseline creatinine 1.7-2 secondary to solitary right kidney. 3. Volume overload, improved with diuresis. 4. Hyponatremia, hypervolemic. 5. V. tach maintained on amiodarone drip. 6. Hypercalcemia. Improved. PTH elevated at 99.9 and vitamin D level 26.9. Will need to consider parathyroid scan in the near future once stable medically. 7. Hypokalemia from diuresis. Replaced. Better. 8. Acute on chronic systolic CHF ejection fraction of 10 to 15%. 9. Shock maintained on Levophed. 10. Metabolic acidosis secondary to acute kidney injury and lactic acidosis. Plan: Continue off of IV fluids No acute indication for hemodialysis today. Possible hemodialysis in a.m. Repeat labs in a.m. Continue to avoid nephrotoxic agents.
--- NOTE | 2025-02-21 10:52 | P.PN ---
Subjective Progress Note Date: 02/20/25 History of present illness; 74-year-old female with a significant past medical history of systolic CHF w/ EF 10-15% A-fib CAD, TAVR, nephrectomy and drug- induced liver injury, presents for weakness and chest pain. She has been at [facility] for rehab since being discharged 02/08/2025. On previous hospitalization patient was admitted for suspected drug-induced developed liver injury with evidence of elevated LFTs, elevated creatinine, and diffuse +2 pitting edema in all extremities. She was admitted for diuresis as well as medication management post Drug induced liver injury. At time of discharge, LFTs and creatinine had returned to normal range. Since admission to rehab, she reports she has been progressively feeling weaker developed chest pain yesterday. She reports symptoms are similar to last admission, she reports edema and fatigue not as severe as previous admission. She denies fever chills dizziness abdominal pain changes in stool dysuria polyuria hematuria. She endorses chest pressure and worsening weakness. In the ER she got an EKG which revealed sinus bradycardia, she also received a CT abdomen and pelvis that revealed no acute changes. Chest x-ray reveals cardi omegaly mild pulmonary edema without effusion. Labs in the ER revealed Cr 2.69, BUN 61, NA 129 K5.9 alk phos 135 ALT 72 BNP 9300 troponin within normal range CT A scan was wanted in the ER due to elevated D-dimer (3.07) but deferred due to kidney function, VQ ordered instead. Returned negative Patient was admitted to the hospital for WENDY and acute on chronic systolic heart failure with consults to cardiology and nephrology 02/17/2025 patient seen at bedside she is still weak however breathing easier. 02/18/2025: Patient seen and examined at bedside patient is extremely disoriented she was moved from observation to cardiac floor was extremely unclear how she arrived there. Patient was reoriented but extremely anxious. Patient reports she is feeling awful and extremely weak, unclear if due to stress or worsening condition. Patient is extremely anxious and confused difficult to take history 02/19/2025: Rapid response was called for sustained wide QRS, hypotension, fever, hypoxic respiratory failure. Patient was placed on nonrebreather at 15 L as well as amiodarone drip, QRS shortened appropriately. blood pressure was not recorded on noninvasive blood pressure despite IV fluid bolus. Radial pulse was still palpable, arterial line was placed and Levophed was initiated. Patient was upgraded to the ICU due to need for pressors. Central line was placed and patient is currently on 0.04 of levo. Blood pressure currently stable. Daughters present at bedside, patient tracks and response to talking with head movements however cannot speak. history received from family and ICU team. 02/20/2025: Patient seen and examined at bedside, no significant overnight events. States she is feeling better than yesterday, and that her weakness has improved. Patient has no other complaints or concerns at this time. 02/21/2025: Patient seen at bedside, no significant events overnight, she is feeling stronger this morning however still weak. She is able to articulate better endorses some abdominal pain however not better or worse than previous. Labs today: WBC 14.4, hemoglobin 9.9, platelets 81, ABG lactic acid 10.3, sodium 131, potassium 4.1, bicarb 28, BUN 69, creatinine 2.92, glucose 138, AST 7258, and ALT 3718. REVIEW OF SYSTEMS: As stated above in HPI. The rest of the 14-point review of systems is negative. PHYSICAL EXAMINATION: GENERAL: Still very weak, able to answer questions and speak today. A&O x 4, central line in place right side HEENT: Pupils are round and equally reacting to light. EOMI. No scleral icterus. No conjunctival pallor. Normocephalic, atraumatic. CARDIOVASCULAR: S1 and S2 present. No S3 PULMONARY: Crackles in lower lung field bilaterally with decreased air entry bilaterally ABDOMEN: Mildly distended patient winces to deep palpation, endorses pain in right quadrants MUSCULOSKELETAL: No joint swelling or deformity. EXTREMITIES: +2 pitting edema to midshin NEUROLOGICAL: Gross neurological examination did not reveal any focal deficits. SKIN: No rashes. Assessment and Plan #Wide-complex tachycardia resolved with amiodarone #Hypotension requiring pressors likely secondary to above #Acute on chronic systolic heart failure (EF 10-15% per echo 02/03) #Chest pain likely secondary to CHF exacerbation #Narrow complex tachycardia Remain in the ICU currently, off pressors at this time Central line in place Continuing IV amiodarone per cardiology Continue beta-blanca Hold diuretics - Monitor CMP, magnesium Cardiology consulted, appreciate further recommendations #Acute hypoxic respiratory failure secondary to above #Lactic acidosis secondary to bacteremia and malperfusion #Metabolic acidosis with compensated respiratory alkalosis secondary to above #Acute leukocytosis Receiving 6 L via nasal cannula, titrate down as tolerated discontine ertapenem 0.5 g, begin daptomycin and Invanz Blood cultures x 2, repeat lactic acid, -Monitor CBC ID continues to follow for management of Staph aureus bacteremia Consider CT abdomen for evaluation of pain + fever C x-ray ordered and negative for acute pathology reveal central line in place UA with reflex: Negative for acute infection IV bicarb for management of metabolic acidosis in case of end-stage kidney disease #WENDY likely secondary to cardiorenal syndrome and bacteremia (increased 4.02 today) # Hyponatremia secondary to polypharmacy #History of nephrectomy -Immunofixation, protein electrophoresis, and PTH to assess cause of kidney failure (pending) -Hold fluid restriction until pressors titrated down Nephrology continues to follow -IV lasix x1 # Ischemic hepatitis likely secondary to malperfusion #Abdominal pains likely secondary to above #History of drug-induced liver injury Continue to monitor CMP daily Hold hepatotoxic medications Continue fluid resuscitation and pressors for adequate perfusion, titrate as tolerated #Hypertension (currently in-active) Continue home medication #T2DM Lantus 10 units SQ twice daily Humalog 3 times daily with meals Sliding scale insulin #Anxiety depression Continue home medication #Pain Multimodal pain management #Gout Continue home medication #Guarded prognosis Advanced directives discussed with family, patient currently DNR DVT ppx: Eliquis 2.5 mg p.o. twice daily GI ppx: Protonix CODE STATUS: No code Anticipated discharge place: Pending clinical course Anticipated discharge time: Pending clinical course Objective - Vital Signs Vital signs: Vital Signs Temp 97.9 F 02/21/25 00:00 Pulse 102 H 02/21/25 07:00 Resp 11 L 02/21/25 07:00 BP 105/63 02/20/25 21:15 Pulse Ox 100 02/20/25 04:00 FiO2 Intake & Output 02/20/25 02/21/25 02/21/25 18:59 06:59 18:59 Intake Total 672.325 7239.718 66 Output Total 190 215 20 Balance 789.015 902.718 46 Weight 97.6 kg Intake: IV 858 726 66 0.9 carrier 130 110 10 Dextrose 5% in Water 1, 650 550 50 000 ml @ 50 mls/hr IV . Q23H CORIE with Sodium Bicarb (1 Meq/ml) 150 ml Rx#:[id number] Pressure Bag - CVP & Art 78 66 6 Line Intake, IV Titration 1.015 151.718 Amount Norepinephrine 8 mg In 1.015 151.718 Sodium Chloride 0.9% 250 ml @ 0.03 MCG/KG/MIN 5. 225 mls/hr IV .Q24H CORIE Rx#:[id number] Oral 120 240 Output: Urine 190 215 20 Other: Voiding Method Indwelling Catheter Indwelling Catheter # Bowel Movements 0 0 ABP, PAP, CO, CI - Last Documented Arterial Blood Pressure 102/69 - Labs CBC & Chem 7: 02/21/25 04:40 02/21/25 04:40 Labs: Abnormal Lab Results - Last 24 Hours (Table) 02/20/25 02/20/25 02/20/25 Range/Units 04:34 10:14 12:10 WBC (4.50-10.00) 10*3/uL RBC (4.10-5.20) 10*6/uL Hgb (12.0-15.0) g/dL Hct (37.2-46.3) % Plt Count (140-440) 10*3/uL Immature Gran # (0.00-0.04) 10*3/uL Neutrophils # (1.80-7.70) 10*3/uL ABG Lactic Acid 10.1 H* (0.5-1.6) mmol/L Sodium (137-145) mmol/L Chloride (98-107) mmol/L BUN (7-17) mg/dL Creatinine (0.52-1.04) mg/dL Glucose (74-99) mg/dL POC Glucose (mg/dL) 202 H (70-110) mg/dL Calcium (8.4-10.2) mg/dL AST 7258 H (14-36) U/L ALT 3718 H (4-34) U/L 02/20/25 02/20/25 02/20/25 Range/Units 12:57 12:58 17:56 WBC (4.50-10.00) 10*3/uL RBC (4.10-5.20) 10*6/uL Hgb (12.0-15.0) g/dL Hct (37.2-46.3) % Plt Count (140-440) 10*3/uL Immature Gran # (0.00-0.04) 10*3/uL Neutrophils # (1.80-7.70) 10*3/uL ABG Lactic Acid 10.3 H* (0.5-1.6) mmol/L Sodium (137-145) mmol/L Chloride (98-107) mmol/L BUN (7-17) mg/dL Creatinine (0.52-1.04) mg/dL Glucose (74-99) mg/dL POC Glucose (mg/dL) 250 H 270 H (70-110) mg/dL Calcium (8.4-10.2) mg/dL AST (14-36) U/L ALT (4-34) U/L 02/20/25 02/20/25 02/21/25 Range/Units 18:46 21:11 01:39 WBC (4.50-10.00) 10*3/uL RBC (4.10-5.20) 10*6/uL Hgb (12.0-15.0) g/dL Hct (37.2-46.3) % Plt Count (140-440) 10*3/uL Immature Gran # (0.00-0.04) 10*3/uL Neutrophils # (1.80-7.70) 10*3/uL ABG Lactic Acid 10.2 H* 7.4 H* (0.5-1.6) mmol/L Sodium (137-145) mmol/L Chloride (98-107) mmol/L BUN (7-17) mg/dL Creatinine (0.52-1.04) mg/dL Glucose (74-99) mg/dL POC Glucose (mg/dL) 252 H (70-110) mg/dL Calcium (8.4-10.2) mg/dL AST (14-36) U/L ALT (4-34) U/L 02/21/25 02/21/25 02/21/25 Range/Units 04:40 04:40 06:44 WBC 15.22 H (4.50-10.00) 10*3/uL RBC 3.79 L (4.10-5.20) 10*6/uL Hgb 11.5 L (12.0-15.0) g/dL Hct 34.2 L (37.2-46.3) % Plt Count 60 L (140-440) 10*3/uL Immature Gran # 0.14 H (0.00-0.04) 10*3/uL Neutrophils # 13.29 H (1.80-7.70) 10*3/uL ABG Lactic Acid (0.5-1.6) mmol/L Sodium 125 L (137-145) mmol/L Chloride 84 L (98-107) mmol/L BUN 84 H (7-17) mg/dL Creatinine 4.02 H (0.52-1.04) mg/dL Glucose 200 H (74-99) mg/dL POC Glucose (mg/dL) 210 H (70-110) mg/dL Calcium 7.1 L (8.4-10.2) mg/dL AST (14-36) U/L ALT (4-34) U/L Microbiology - Last 24 Hours (Table) 02/19/25 07:49 Blood Culture Gram Stain - Preliminary Blood Blood Culture - Preliminary Molecular ID 02/19/25 04:50 Urine Culture - Final Urine,Voided
--- NOTE | 2025-02-21 11:22 | P.PN ---
Subjective Progress Note Date: 02/21/25 Received a call from the [facility] physician, a rapid response called earlier this morning on this patient. Apparently, patient reportedly had a episode of wide- complex tachycardia in the 140s with pulse. She was loaded with IV amiodarone and started on the amiodarone protocol. Suspicion that her AICD may have fired. Following this became hypotensive and transfered to the ICU. Patient is 74-year-old female with extensive comorbidities including asthma, hypertension, hyperlipidemia, coronary artery disease with previous CABG, aortic valve replacement, ischemic cardiomyopathy, AICD, prior cardiac arrest. Recent available echocardiogram from February 03 estimating left ventricular ejection fraction of 10 to 15% with a functioning bioprosthetic aortic valve, moderate mitral regurgitation, severe tricuspid regurgitation, and RV dilation. Also, recent left nephrectomy at outside facility. Patient originally admitted back on 02/15/2025. Chief complaint of generalized weakness and chest pain. There was bilateral lower extremity edema. Chest x- ray showing cardiomegaly with mild vascular congestion. NT proBNP elevated at 9300. Prior VQ scan showing low probability for pulmonary embolism. Most recent available labs from yesterday including a CBC with an increase in her WBC count up to 16.24, hemoglobin 10.2, platelets 210. BMP with sodium 129, potassium 4.5, chloride 89, serum bicarb 28, creatinine 2.84, glucose 138. LFTs unremarkable. Total bilirubin 1.3. Prior UA unremarkable for infection. EKG from rapid response reviewed, showing regular wide-complex tachycardia with right axis deviation and rate of 140s. Prior to this, it appears she was in A- fib with RVR with aberrancy on telemetry. Patient now being seen in the intensive care unit. She is lethargic. She is tachypneic on a 15 L nonrebreather. Current rhythm normal sinus. Troubles achieving accurate noninvasive blood pressures and the [facility] physician is going to insert a arterial line. Blood pressure was previously hypotensive during the A-team, and started on norepinephrine at 0.03 mcg/kg/min. Amiodarone continues to infuse at 1 mg/min. She was also noted to be have a fever, temperature 102.7 F. She was empirically covered on a combination of antibiotics including Rocephin and vancomycin. ABGs done showing a PaO2 of 195, pCO2 of 25, pH of 7.4. Repeat lab work is pending. No further episodes of ectopy at this time. On 02/20/2025, the patient is being seen for a follow-up. The patient remains in cardiogenic shock. This morning, she is in 60s of oxygen by nasal cannula. Blood pressure remains soft with a mean arterial pressure of around 60-65 and the patient was taken off norepinephrine. No pressors although 20 cc an hour. The patient has signs of hypoperfusion, cyanosis in all extremities in addition to weak pulses and l ongoing lactic acidosis. The patient remains on a bicarb infusion which is running at 50 cc an hour. The patient remains on amiodarone drip at 0.5 mg/min and the cardiac rhythm is sinus. Some vague ongoing abdominal pain which is diffuse. He is also having some occasional nausea. CAT scan of the abdomen and pelvis was completed yesterday and it showed post nephr ectomy changes on the left with small amount of free fluid in the anterior pelvis. No evidence of any abscess formation. Decompressed urinary bladder with a Alford catheter in place. Perivesicular fat stranding. A small left and trace right-sided pleural effusion with atelectasis and cholelithiasis and mild hepatomegaly. Meanwhile, the blood work shows a white cell count of 14, hemoglobin 9.9 and a platelet count of 81. Lactic acid level remains elevated at 10.1. BUN is 69 with a creatinine of 3.9. Sodium levels at 131. Liver function tests remain abnormal and LFTs are on the rise. This is consistent with shock liver. AST is 7258, ALT is 3718 and the patient has an alkaline phosphatase of 118. UA was negative. Chest x-ray findings are essentially showing cardiomegaly. No evidence of any pneumonia or pulmonary edema. In terms of mental status, the patient seems to be more alert and awake compared to yesterday. Cardiology on the case. Nephrology is also on the case. Condition is critical. Family at the bedside. DNR/DNI CODE STATUS. 02/21/2025, the patient is lethargic, weak, looks quite debilitated and she remains in cardiogenic shock. The patient has signs of systemic hypoperfusion and multisystem organ failure. She has developed acute kidney injury and shock liver. Very weak pulses. The extremities are cold and clammy. There is mottling of the skin and cyanosis in the digits bilaterally. Urine output is diminished and the patient is producing only 10 cc an hour. The patient remains on a bicarb infusion at rate of 50 cc an hour. Amiodarone is at 0.5 mg/min and the patient is in atrial fibrillation with a bundle branch block pattern and a controlled rate. Norepinephrine is running at 0.07 mcg/kg/min. Blood cultures positive for MRSA. The patient is currently on IV Invanz and daptomycin. The patient remains on Lantus 10 units twice daily. The white cell count is 15.2, hemoglobin 9.7 and platelet count of 60. Sodium is at 125, BUN is 84 with a creatinine of 4.02. LFTs are abnormal that they are improved compared to yesterday. Lactic acid level is down to 7.1. AST is 4971. ALT is 4469. Objective - Vital Signs Vital signs: Vital Signs Temp 97.9 F 02/21/25 00:00 Pulse 102 H 02/21/25 07:00 Resp 11 L 02/21/25 07:00 BP 105/63 02/20/25 21:15 Pulse Ox 100 02/20/25 04:00 FiO2 Intake & Output 02/20/25 02/21/25 02/21/25 18:59 06:59 18:59 Intake Total 165.419 4301.718 66 Output Total 190 215 20 Balance 789.015 902.718 46 Weight 97.6 kg Intake: IV 858 726 66 0.9 carrier 130 110 10 Dextrose 5% in Water 1, 650 550 50 000 ml @ 50 mls/hr IV . Q23H CORIE with Sodium Bicarb (1 Meq/ml) 150 ml Rx#:[id number] Pressure Bag - CVP & Art 78 66 6 Line Intake, IV Titration 1.015 151.718 Amount Norepinephrine 8 mg In 1.015 151.718 Sodium Chloride 0.9% 250 ml @ 0.03 MCG/KG/MIN 5. 225 mls/hr IV .Q24H CORIE Rx#:[id number] Oral 120 240 Output: Urine 190 215 20 Other: Voiding Method Indwelling Catheter Indwelling Catheter # Bowel Movements 0 0 ABP, PAP, CO, CI - Last Documented Arterial Blood Pressure 102/69 - Exam GENERAL EXAM: Lethargic, 74-year-old female, on 6 L nonrebreather, in mild respiratory distress. Awake alert and communicating. HEAD: Normocephalic and atraumatic EYES: Normal reaction of pupils, equal size. NOSE: Clear with pink turbinates. THROAT: No erythema or exudates. NECK: No masses, no JVD. CHEST: Left chest implanted device LUNGS: Equal air entry with minimal bibasilar inspiratory crackles. CVS: S1 and S2 normal with no audible murmur, regular rhythm. No extra heart sounds ABDOMEN: No hepatosplenomegaly, active bowel sounds, no guarding or rigidity. Small well-approximated left abdominal [place] incision SPINE: No scoliosis or deformity SKIN: Mottled appearance of the lower extremities, in addition cyanosis in all 4 extremities. CENTRAL NERVOUS SYSTEM: No focal deficits, tone is normal in all 4 extremities. EXTREMITIES: There is mild nonpitting edema bilateral., There is no clubbing and there is cyanosis and skin mottling in all 4 extremities distally. Pulses are extremely diminished and extremities are cold and clammy.. Peripheral pulses are diminished in all 4 extremities. - Labs CBC & Chem 7: 02/21/25 04:40 02/21/25 04:40 Labs: Abnormal Lab Results - Last 24 Hours (Table) 02/20/25 02/20/25 02/20/25 Range/Units 04:34 10:14 12:10 WBC (4.50-10.00) 10*3/uL RBC (4.10-5.20) 10*6/uL Hgb (12.0-15.0) g/dL Hct (37.2-46.3) % Plt Count (140-440) 10*3/uL Immature Gran # (0.00-0.04) 10*3/uL Neutrophils # (1.80-7.70) 10*3/uL ABG Lactic Acid 10.1 H* (0.5-1.6) mmol/L Sodium (137-145) mmol/L Chloride (98-107) mmol/L BUN (7-17) mg/dL Creatinine (0.52-1.04) mg/dL Glucose (74-99) mg/dL POC Glucose (mg/dL) 202 H (70-110) mg/dL Calcium (8.4-10.2) mg/dL AST 7258 H (14-36) U/L ALT 3718 H (4-34) U/L 02/20/25 02/20/25 02/20/25 Range/Units 12:57 12:58 17:56 WBC (4.50-10.00) 10*3/uL RBC (4.10-5.20) 10*6/uL Hgb (12.0-15.0) g/dL Hct (37.2-46.3) % Plt Count (140-440) 10*3/uL Immature Gran # (0.00-0.04) 10*3/uL Neutrophils # (1.80-7.70) 10*3/uL ABG Lactic Acid 10.3 H* (0.5-1.6) mmol/L Sodium (137-145) mmol/L Chloride (98-107) mmol/L BUN (7-17) mg/dL Creatinine (0.52-1.04) mg/dL Glucose (74-99) mg/dL POC Glucose (mg/dL) 250 H 270 H (70-110) mg/dL Calcium (8.4-10.2) mg/dL AST (14-36) U/L ALT (4-34) U/L 02/20/25 02/20/25 02/21/25 Range/Units 18:46 21:11 01:39 WBC (4.50-10.00) 10*3/uL RBC (4.10-5.20) 10*6/uL Hgb (12.0-15.0) g/dL Hct (37.2-46.3) % Plt Count (140-440) 10*3/uL Immature Gran # (0.00-0.04) 10*3/uL Neutrophils # (1.80-7.70) 10*3/uL ABG Lactic Acid 10.2 H* 7.4 H* (0.5-1.6) mmol/L Sodium (137-145) mmol/L Chloride (98-107) mmol/L BUN (7-17) mg/dL Creatinine (0.52-1.04) mg/dL Glucose (74-99) mg/dL POC Glucose (mg/dL) 252 H (70-110) mg/dL Calcium (8.4-10.2) mg/dL AST (14-36) U/L ALT (4-34) U/L 02/21/25 02/21/25 02/21/25 Range/Units 04:40 04:40 06:44 WBC 15.22 H (4.50-10.00) 10*3/uL RBC 3.79 L (4.10-5.20) 10*6/uL Hgb 11.5 L (12.0-15.0) g/dL Hct 34.2 L (37.2-46.3) % Plt Count 60 L (140-440) 10*3/uL Immature Gran # 0.14 H (0.00-0.04) 10*3/uL Neutrophils # 13.29 H (1.80-7.70) 10*3/uL ABG Lactic Acid (0.5-1.6) mmol/L Sodium 125 L (137-145) mmol/L Chloride 84 L (98-107) mmol/L BUN 84 H (7-17) mg/dL Creatinine 4.02 H (0.52-1.04) mg/dL Glucose 200 H (74-99) mg/dL POC Glucose (mg/dL) 210 H (70-110) mg/dL Calcium 7.1 L (8.4-10.2) mg/dL AST (14-36) U/L ALT (4-34) U/L Microbiology - Last 24 Hours (Table) 02/19/25 07:49 Blood Culture Gram Stain - Preliminary Blood Blood Culture - Preliminary Presumptive MRSA Molecular ID 02/19/25 04:50 Urine Culture - Final Urine,Voided Assessment and Plan Assessment: Cardiogenic shock. The patient has signs of multisystem organ failure. The patient developed acute kidney injury on top of chronic kidney disease in addition to shock liver. Initially, she had diminished level of mentations in addition. The patient continues to have lactic acidosis. Signs of hypoperfusion. Taken off pressors and the mean arterial pressure is at 65 the patient is receiving bicarb infusion with diminished urine output. MRSA bacteremia, currently on daptomycin. Source is not clear. The triple-lume n catheter was recently inserted and this is not the source of an infection. Unstable wide-complex tachycardia with a pulse, suspicion that patient's AICD may have fired, started on IV amiodarone per protocol and the patient remains on amiodarone 0.5 mg/min. Cardiac rhythm is A-fib with a controlled rhythm and a bundle-branch block pattern. Hypotension, secondary to above, related to cardiogenic shock with possibly septic component, currently on norepinephrine is running at 0.07 mcg/kg/min Acute on chronic systolic congestive heart failure Acute hypoxemic respiratory failure, currently on 6 L nonrebreather, chest x-ray shows cardiomegaly, no signs of any acute pulmonary edema Acute metabolic acidosis, improved and a bicarb infusion Acute leukocytosis and fever, covered on antibiotic, the patient is currently on IV Invanz and daptomycin Acute on chronic kidney disease, creatinine remains elevated at the patient remains oliguric. Noted the patient has single kidney on the right and the patient is status post nephrectomy on the left History of left-sided hydronephrosis with nephrolithiasis and frequent urinary tract infections History of recent left nephrectomy on 01/26/2025 Paroxysmal atrial fibrillation, anticoagulated on Eliquis Severe ischemic cardiomyopathy, most recent available echocardiogram estimating left ventricular ejection fraction of 10 to 15% with functioning bioprosthetic aortic valve, moderate mitral regurgitation, severe tricuspid regurgitation. AICD/pacemaker Coronary artery disease, with previous CABG History of prior cardiac arrest History of hyperlipidemia Diabetes mellitus History of asthma Obesity, with a BMI of 41.5 kg/m Shock liver with abnormal LFTs Cholelithiasis based on the CAT scan of the abdomen. No evidence of any ch olecystitis. Plan: Condition remains critical and the patient's prognosis remains extremely poor based above-mentioned comorbidities. The patient remains in shock with severe cardiomyopathy. She is a DNR/DNI CODE STATUS. The patient has signs of systemic hypoperfusion and multisystem organ failure. I Lactic acid levels are elevated, improved compared to yesterday Shock liver with elevated LFTs, improved compared to yesterday Continue amiodarone drip at 0.5 mg/min Titrate norepinephrine Monitor lactic acid level Monitor urine output Monitor creatinine Continue IV Invanz and vancomycin The patient has an AICD in place Continue anticoagulation with Eliquis CAT scan of the abdomen was noted and the findings are nonspecific Lantus insulin 10 units twice daily along with sliding scale coverage Continue metoprolol 25 mg p.o. 3 times daily Continue Ranexa per cardiology Zofran for nausea Will continue to follow this patient along with the rest of the consultants including cardiology and nephrology Prognosis poor the patient is a DNR/DNI CODE STATUS. Critical care evaluation that was done and 35 minutes. Case was discussed with the daughter at the bedside in addition to cardiology. Time with Patient: Greater than 30
[2025-02-21 12:55] LABS: Albumin 2.7 g/dL (3.5-5.0); Alkaline Phosphatase 119.0 U/L (38-126); Total Protein 4.7 g/dL (6.3-8.2)
[2025-02-21] MEDS: AMIODARONE 450 MG in DEXTROSE 5% IN WATER 250 ML IV SCH (12:56)
[2025-02-21 13:09] LABS: Glucose,Whole Blood 175 mg/dL (70-110)
[2025-02-21 17:39] VITALS: BP 150/137
[2025-02-21 19:09] LABS: Glucose,Whole Blood 132 mg/dL (70-110)
[2025-02-21 19:57] LABS: Glucose,Whole Blood 81 mg/dL (70-110)
[2025-02-21 23:46] LABS: Glucose,Whole Blood 70 mg/dL (70-110)
[2025-02-22 01:10] LABS: Glucose,Whole Blood 127 mg/dL (70-110)
[2025-02-22 04:24] VITALS: TEMP 94.4
[2025-02-22] MEDS ORDERED: MORPHINE SULFATE 2 MG/ML SYRINGE IVP PRN (05:40)
[2025-02-22] MEDS ORDERED: ATROPINE OPHTH SOLN 1% 5ML BTL SUBLINGUAL PRN (06:00)
[2025-02-22] MEDS: MORPHINE SULFATE 100 MG in SODIUM CHLORIDE 0.9% 90 ML IV SCH (06:13)
[2025-02-22] MEDS: SCOPOLAMINE 1 MG/72 HR PATCH TRANSDERM SCH (06:36)
[2025-02-22 08:58] VITALS: PULSE 94; RESP 24
[2025-02-22 09:03] VITALS: BMI 46.3
--- NOTE | 2025-02-22 12:00 | P.PN ---
Subjective Patient was seen for follow-up for acute kidney injury and chronic kidney disease. Currently switched to Palliative care. Amiodarone drip is stopped. Off of IV fluids. On Morphine drip 3ml/hr, she is sleepy. Urine output dropping low at 15ml/hr Objective - Vital Signs Vital signs: Vital Signs Temp 94.4 F L 02/22/25 04:00 Pulse 94 02/22/25 08:14 Resp 24 02/22/25 08:14 BP 150/137 02/21/25 17:00 Pulse Ox 100 02/20/25 04:00 FiO2 Intake & Output 02/21/25 02/22/25 02/22/25 18:59 06:59 18:59 Intake Total 559.829 801.570 60.735 Output Total 385 235 Balance 174.829 566.570 60.735 Weight 100.7 kg 100.7 kg Intake: IV 392 312 0 0.9 carrier 220 240 0 Dextrose 5% in Water 1, 100 000 ml @ 50 mls/hr IV . Q23H CORIE with Sodium Bicarb (1 Meq/ml) 150 ml Rx#:[id number] Pressure Bag - CVP & Art 72 72 0 Line Intake, IV Titration 167.829 489.570 60.735 Amount Amiodarone 450 mg In 244.449 56.668 Dextrose 5% in Water 250 ml @ 0.5 MG/MIN 16.667 mls/hr IV .Q15H CORIE Rx#: [id number] Morphine Sulfate 100 mg 4.067 In Sodium Chloride 0.9% 90 ml @ 2 MG/HR 2 mls/hr IV .Q24H CORIE Rx#: [id number] Norepinephrine 8 mg In 167.829 245.121 Sodium Chloride 0.9% 250 ml @ 0.03 MCG/KG/MIN 5. 225 mls/hr IV .Q24H CORIE Rx#:[id number] Output: Urine 385 235 Other: Voiding Method Indwelling Catheter Indwelling Catheter # Bowel Movements 0 ABP, PAP, CO, CI - Last Documented Arterial Blood Pressure 86/60 - Exam Patient is sleeping Examination of the heart S1 and S2 Examination of the lungs bilateral breath sounds are heard Abdomen is soft nontender MSK shows 2+ edema - Labs CBC & Chem 7: 02/21/25 04:40 02/21/25 04:40 Labs: Abnormal Lab Results - Last 24 Hours (Table) 02/21/25 02/21/25 02/21/25 Range/Units 04:40 13:08 19:07 POC Glucose (mg/dL) 175 H 132 H (70-110) mg/dL Total Bilirubin 2.1 H (0.2-1.3) mg/dL AST 4971 H (14-36) U/L ALT 4469 H (4-34) U/L Total Protein 4.7 L (6.3-8.2) g/dL Albumin 2.7 L (3.5-5.0) g/dL 02/22/25 Range/Units 01:07 POC Glucose (mg/dL) 127 H (70-110) mg/dL Total Bilirubin (0.2-1.3) mg/dL AST (14-36) U/L ALT (4-34) U/L Total Protein (6.3-8.2) g/dL Albumin (3.5-5.0) g/dL Microbiology - Last 24 Hours (Table) 02/19/25 07:49 Blood Culture Gram Stain - Preliminary Blood Blood Culture - Preliminary Presumptive MRSA Molecular ID Assessment and Plan Plan: Patient was siwtched to palliative care today. 1. Acute kidney injury secondary to hemodynamic ATN and cardiorenal syndrome. 2. Chronic kidney disease stage IV (eGFR of 18) with baseline creatinine 1.7-2 secondary to solitary right kidney. 3. Volume overload 4. Hyponatremia, hypervolemic. 5. V. tach, amiodarone drip discontinued. 6. Hypercalcemia. PTH elevated at 99.9 and vitamin D level 26.9. 7. Hypokalemia from diuresis. 8. Acute on chronic systolic CHF ejection fraction of 10 to 15%. 9. Shock Levophed was discontinued. 10. Metabolic acidosis secondary to acute kidney injury and lactic acidosis. Plan: Patient is kept on Morphine drip 100 ml in sodium chloride, 30ml/hr. No plans for renal replacement therapy. code status changed to comfort care. Agree with resident's assessment and plan
--- NOTE | 2025-02-22 12:14 | P.PN ---
Subjective Progress Note Date: 02/21/25 Principal diagnosis: Reason for follow-up is sepsis Patient is a 74-year-old female with a past medical history significant for Asthma, Coronary Artery Disease (CAD), Chest Pain / Angina, Heart Failure, Diabetes Mellitus, GERD/Reflux, Hyperlipidemia, Hypertension, Myocardial Infarction (NE), Osteoarthritis (OA), Pneumonia, Renal Disease, Syncope, recently did have a left nephrectomy presented to the hospital with nausea vomiting subsequent have a fever prompting this consultation. On today's evaluation that is 02/21/2025, Patient is afebrile patient is currently on 6 L nasal oxygen and breathing comfortably slightly more sleepy lethargic today no vomiting diarrhea interval change reported by the family at the bedside. Patient white count 15.22 creatinine is 4.02 liver enzymes slightly improved blood culture positive for MRSA Objective - Vital Signs Vital signs: Vital Signs Temp 97.6 F 02/21/25 08:00 Pulse 98 02/21/25 10:00 Resp 21 02/21/25 10:00 BP 105/63 02/20/25 21:15 Pulse Ox 100 02/20/25 04:00 FiO2 Intake & Output 02/20/25 02/21/25 02/21/25 18:59 06:59 18:59 Intake Total 996.161 9743.718 184 Output Total 190 215 95 Balance 789.015 902.718 89 Weight 97.6 kg Intake: IV 858 726 184 0.9 carrier 130 110 60 Dextrose 5% in Water 1, 650 550 100 000 ml @ 50 mls/hr IV . Q23H CORIE with Sodium Bicarb (1 Meq/ml) 150 ml Rx#:[id number] Pressure Bag - CVP & Art 78 66 24 Line Intake, IV Titration 1.015 151.718 Amount Norepinephrine 8 mg In 1.015 151.718 Sodium Chloride 0.9% 250 ml @ 0.03 MCG/KG/MIN 5. 225 mls/hr IV .Q24H CORIE Rx#:[id number] Oral 120 240 Output: Urine 190 215 95 Other: Voiding Method Indwelling Catheter Indwelling Catheter Indwelling Catheter # Bowel Movements 0 0 ABP, PAP, CO, CI - Last Documented Arterial Blood Pressure 87/65 - Exam GENERAL DESCRIPTION: An elderly female lying in bed in no distress RESPIRATORY SYSTEM: Unlabored breathing , decreased breath sounds at bases HEART: S1 S2 regular rate and rhythm , ABDOMEN: Soft , mild tenderness EXTREMITIES: No edema feet - Labs CBC & Chem 7: 02/21/25 04:40 02/21/25 04:40 Labs: Abnormal Lab Results - Last 24 Hours (Table) 02/20/25 02/20/25 02/20/25 Range/Units 12:10 12:57 12:58 WBC (4.50-10.00) 10*3/uL RBC (4.10-5.20) 10*6/uL Hgb (12.0-15.0) g/dL Hct (37.2-46.3) % Plt Count (140-440) 10*3/uL Immature Gran # (0.00-0.04) 10*3/uL Neutrophils # (1.80-7.70) 10*3/uL ABG Lactic Acid 10.3 H* (0.5-1.6) mmol/L Sodium (137-145) mmol/L Chloride (98-107) mmol/L BUN (7-17) mg/dL Creatinine (0.52-1.04) mg/dL Glucose (74-99) mg/dL POC Glucose (mg/dL) 202 H 250 H (70-110) mg/dL Calcium (8.4-10.2) mg/dL AST (14-36) U/L ALT (4-34) U/L 02/20/25 02/20/25 02/20/25 Range/Units 17:56 18:46 21:11 WBC (4.50-10.00) 10*3/uL RBC (4.10-5.20) 10*6/uL Hgb (12.0-15.0) g/dL Hct (37.2-46.3) % Plt Count (140-440) 10*3/uL Immature Gran # (0.00-0.04) 10*3/uL Neutrophils # (1.80-7.70) 10*3/uL ABG Lactic Acid 10.2 H* (0.5-1.6) mmol/L Sodium (137-145) mmol/L Chloride (98-107) mmol/L BUN (7-17) mg/dL Creatinine (0.52-1.04) mg/dL Glucose (74-99) mg/dL POC Glucose (mg/dL) 270 H 252 H (70-110) mg/dL Calcium (8.4-10.2) mg/dL AST (14-36) U/L ALT (4-34) U/L 02/21/25 02/21/25 02/21/25 Range/Units 01:39 04:40 04:40 WBC 15.22 H (4.50-10.00) 10*3/uL RBC 3.79 L (4.10-5.20) 10*6/uL Hgb 11.5 L (12.0-15.0) g/dL Hct 34.2 L (37.2-46.3) % Plt Count 60 L (140-440) 10*3/uL Immature Gran # 0.14 H (0.00-0.04) 10*3/uL Neutrophils # 13.29 H (1.80-7.70) 10*3/uL ABG Lactic Acid 7.4 H* (0.5-1.6) mmol/L Sodium 125 L (137-145) mmol/L Chloride 84 L (98-107) mmol/L BUN 84 H (7-17) mg/dL Creatinine 4.02 H (0.52-1.04) mg/dL Glucose 200 H (74-99) mg/dL POC Glucose (mg/dL) (70-110) mg/dL Calcium 7.1 L (8.4-10.2) mg/dL AST (14-36) U/L ALT (4-34) U/L 02/21/25 02/21/25 Range/Units 04:40 06:44 WBC (4.50-10.00) 10*3/uL RBC (4.10-5.20) 10*6/uL Hgb (12.0-15.0) g/dL Hct (37.2-46.3) % Plt Count (140-440) 10*3/uL Immature Gran # (0.00-0.04) 10*3/uL Neutrophils # (1.80-7.70) 10*3/uL ABG Lactic Acid (0.5-1.6) mmol/L Sodium (137-145) mmol/L Chloride (98-107) mmol/L BUN (7-17) mg/dL Creatinine (0.52-1.04) mg/dL Glucose (74-99) mg/dL POC Glucose (mg/dL) 210 H (70-110) mg/dL Calcium (8.4-10.2) mg/dL AST 4971 H (14-36) U/L ALT 4469 H (4-34) U/L Microbiology - Last 24 Hours (Table) 02/19/25 07:49 Blood Culture Gram Stain - Preliminary Blood Blood Culture - Preliminary Presumptive MRSA Molecular ID 02/19/25 04:50 Urine Culture - Final Urine,Voided Assessment and Plan (1) Sepsis Current Visit: Yes Status: Acute Code(s): A41.9 - SEPSIS, UNSPECIFIED ORGANISM SNOMED Code(s): 11262162 (2) Allergy to multiple antibiotics Current Visit: No Status: Acute Code(s): Z88.1 - ALLERGY STATUS TO OTHER ANTIBIOTIC AGENTS SNOMED Code(s): 752490696 (3) Elevated LFTs Current Visit: No Status: Acute Code(s): R79.89 - OTHER SPECIFIED ABNORMAL FINDINGS OF BLOOD CHEMISTRY SNOMED Code(s): 863380904 (4) MRSA bacteremia Current Visit: Yes Status: Acute Code(s): R78.81 - BACTEREMIA; B95.62 - METHICILLIN RESIS STAPH INFCT CAUSING DISEASES CLASSD [id number] SNOMED Code(s): 48085924003050742 Plan: 1patient with sepsis in this patient did have fever tachycardia elevated white count as well as elevated lactic acid source likely abdominal in this patient who did have a some abdominal pain as well as tenderness and recent history of left-sided nephrectomy for known functioning infected kidney 2-patient with multiple antibiotic ALLERGIES that would limit the number of antibiotic safe to use 3-patient did have a repeat CT of abdominal pelvis did not mention any intra- abdominal abscess 4-patient did have positive blood culture with MRSA source likely abdominal daptomycin was added last night blood culture repeated document clearance of bacteremia prognosis guarded continue Invanz as well for now care discussed in detail with the family the bedside Dictation was produced using [employer] dictation software. please excuse any grammatical, word or spelling errors. Time with Patient: Less than 30
[2025-02-22] MEDS: LORazepam 1 MG/0.5 ML VIAL IV PRN (13:10)
--- NOTE | 2025-02-22 13:45 | P.PN ---
Subjective Progress Note Date: 02/20/25 History of present illness; 74-year-old female with a significant past medical history of systolic CHF w/ EF 10-15% A-fib CAD, TAVR, nephrectomy and drug- induced liver injury, presents for weakness and chest pain. She has been at [facility] for rehab since being discharged 02/08/2025. On previous hospitalization patient was admitted for suspected drug-induced developed liver injury with evidence of elevated LFTs, elevated creatinine, and diffuse +2 pitting edema in all extremities. She was admitted for diuresis as well as medication management post Drug induced liver injury. At time of discharge, LFTs and creatinine had returned to normal range. Since admission to rehab, she reports she has been progressively feeling weaker developed chest pain yesterday. She reports symptoms are similar to last admission, she reports edema and fatigue not as severe as previous admission. She denies fever chills dizziness abdominal pain changes in stool dysuria polyuria hematuria. She endorses chest pressure and worsening weakness. In the ER she got an EKG which revealed sinus bradycardia, she also received a CT abdomen and pelvis that revealed no acute changes. Chest x-ray reveals cardi omegaly mild pulmonary edema without effusion. Labs in the ER revealed Cr 2.69, BUN 61, NA 129 K5.9 alk phos 135 ALT 72 BNP 9300 troponin within normal range CT A scan was wanted in the ER due to elevated D-dimer (3.07) but deferred due to kidney function, VQ ordered instead. Returned negative Patient was admitted to the hospital for WENDY and acute on chronic systolic heart failure with consults to cardiology and nephrology 02/17/2025 patient seen at bedside she is still weak however breathing easier. 02/18/2025: Patient seen and examined at bedside patient is extremely disoriented she was moved from observation to cardiac floor was extremely unclear how she arrived there. Patient was reoriented but extremely anxious. Patient reports she is feeling awful and extremely weak, unclear if due to stress or worsening condition. Patient is extremely anxious and confused difficult to take history 02/19/2025: Rapid response was called for sustained wide QRS, hypotension, fever, hypoxic respiratory failure. Patient was placed on nonrebreather at 15 L as well as amiodarone drip, QRS shortened appropriately. blood pressure was not recorded on noninvasive blood pressure despite IV fluid bolus. Radial pulse was still palpable, arterial line was placed and Levophed was initiated. Patient was upgraded to the ICU due to need for pressors. Central line was placed and patient is currently on 0.04 of levo. Blood pressure currently stable. Daughters present at bedside, patient tracks and response to talking with head movements however cannot speak. history received from family and ICU team. 02/20/2025: Patient seen and examined at bedside, no significant overnight events. States she is feeling better than yesterday, and that her weakness has improved. Patient has no other complaints or concerns at this time. 02/21/2025: Patient seen at bedside, no significant events overnight, she is feeling stronger this morning however still weak. She is able to articulate better endorses some abdominal pain however not better or worse than previous. Labs today: WBC 14.4, hemoglobin 9.9, platelets 81, ABG lactic acid 10.3, sodium 131, potassium 4.1, bicarb 28, BUN 69, creatinine 2.92, glucose 138, AST 7258, and ALT 3718. REVIEW OF SYSTEMS: As stated above in HPI. The rest of the 14-point review of systems is negative. PHYSICAL EXAMINATION: GENERAL: Still very weak, able to answer questions and speak today. A&O x 4, central line in place right side HEENT: Pupils are round and equally reacting to light. EOMI. No scleral icterus. No conjunctival pallor. Normocephalic, atraumatic. CARDIOVASCULAR: S1 and S2 present. No S3 PULMONARY: Crackles in lower lung field bilaterally with decreased air entry bilaterally ABDOMEN: Mildly distended patient winces to deep palpation, endorses pain in right quadrants MUSCULOSKELETAL: No joint swelling or deformity. EXTREMITIES: +2 pitting edema to midshin NEUROLOGICAL: Gross neurological examination did not reveal any focal deficits. SKIN: No rashes. Assessment and Plan #Wide-complex tachycardia resolved with amiodarone #Hypotension requiring pressors likely secondary to above #Acute on chronic systolic heart failure (EF 10-15% per echo 02/03) #Chest pain likely secondary to CHF exacerbation #Narrow complex tachycardia Remain in the ICU currently, off pressors at this time Central line in place Continuing IV amiodarone per cardiology Continue beta-blanca Hold diuretics - Monitor CMP, magnesium Cardiology consulted, appreciate further recommendations #Acute hypoxic respiratory failure secondary to above #Lactic acidosis secondary to bacteremia and malperfusion #Metabolic acidosis with compensated respiratory alkalosis secondary to above #Acute leukocytosis Receiving 6 L via nasal cannula, titrate down as tolerated discontine ertapenem 0.5 g, begin daptomycin and Invanz Blood cultures x 2, repeat lactic acid, -Monitor CBC ID continues to follow for management of Staph aureus bacteremia Consider CT abdomen for evaluation of pain + fever C x-ray ordered and negative for acute pathology reveal central line in place UA with reflex: Negative for acute infection IV bicarb for management of metabolic acidosis in case of end-stage kidney disease #WENDY likely secondary to cardiorenal syndrome and bacteremia (increased 4.02 today) # Hyponatremia secondary to polypharmacy #History of nephrectomy -Immunofixation, protein electrophoresis, and PTH to assess cause of kidney failure (pending) -Hold fluid restriction until pressors titrated down Nephrology continues to follow -IV lasix x1 # Ischemic hepatitis likely secondary to malperfusion #Abdominal pains likely secondary to above #History of drug-induced liver injury Continue to monitor CMP daily Hold hepatotoxic medications Continue fluid resuscitation and pressors for adequate perfusion, titrate as tolerated #Hypertension (currently in-active) Continue home medication #T2DM Lantus 10 units SQ twice daily Humalog 3 times daily with meals Sliding scale insulin #Anxiety depression Continue home medication #Pain Multimodal pain management #Gout Continue home medication #Guarded prognosis Advanced directives discussed with family, patient currently DNR DVT ppx: Eliquis 2.5 mg p.o. twice daily GI ppx: Protonix CODE STATUS: No code #Patient's condition has deteriorated and patient family has decided to withdraw care Morphine IV started Objective - Vital Signs Vital signs: Vital Signs Temp 94.4 F L 02/22/25 04:00 Pulse 94 02/22/25 08:14 Resp 24 02/22/25 08:14 BP 150/137 02/21/25 17:00 Pulse Ox 100 02/20/25 04:00 FiO2 Intake & Output 02/21/25 02/22/25 02/22/25 18:59 06:59 18:59 Intake Total 559.829 801.570 60.735 Output Total 385 235 Balance 174.829 566.570 60.735 Weight 100.7 kg 100.7 kg Intake: IV 392 312 0 0.9 carrier 220 240 0 Dextrose 5% in Water 1, 100 000 ml @ 50 mls/hr IV . Q23H CORIE with Sodium Bicarb (1 Meq/ml) 150 ml Rx#:[id number] Pressure Bag - CVP & Art 72 72 0 Line Intake, IV Titration 167.829 489.570 60.735 Amount Amiodarone 450 mg In 244.449 56.668 Dextrose 5% in Water 250 ml @ 0.5 MG/MIN 16.667 mls/hr IV .Q15H CORIE Rx#: [id number] Morphine Sulfate 100 mg 4.067 In Sodium Chloride 0.9% 90 ml @ 2 MG/HR 2 mls/hr IV .Q24H CORIE Rx#: [id number] Norepinephrine 8 mg In 167.829 245.121 Sodium Chloride 0.9% 250 ml @ 0.03 MCG/KG/MIN 5. 225 mls/hr IV .Q24H CORIE Rx#:[id number] Output: Urine 385 235 Other: Voiding Method Indwelling Catheter Indwelling Catheter # Bowel Movements 0 ABP, PAP, CO, CI - Last Documented Arterial Blood Pressure 86/60 - Labs CBC & Chem 7: 02/21/25 04:40 02/21/25 04:40 Labs: Abnormal Lab Results - Last 24 Hours (Table) 02/21/25 02/21/25 02/21/25 Range/Units 04:40 13:08 19:07 POC Glucose (mg/dL) 175 H 132 H (70-110) mg/dL Total Bilirubin 2.1 H (0.2-1.3) mg/dL AST 4971 H (14-36) U/L ALT 4469 H (4-34) U/L Total Protein 4.7 L (6.3-8.2) g/dL Albumin 2.7 L (3.5-5.0) g/dL 02/22/25 Range/Units 01:07 POC Glucose (mg/dL) 127 H (70-110) mg/dL Total Bilirubin (0.2-1.3) mg/dL AST (14-36) U/L ALT (4-34) U/L Total Protein (6.3-8.2) g/dL Albumin (3.5-5.0) g/dL Microbiology - Last 24 Hours (Table) 02/19/25 07:49 Blood Culture Gram Stain - Preliminary Blood Blood Culture - Preliminary Presumptive MRSA Molecular ID
[2025-02-22 15:12] LABS: Albumin 3.46 g/dL (3.80-4.90); Gamma Globulin 0.63 g/dL (0.70-1.50)
--- NOTE | 2025-02-22 15:21 | P.DS ---
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, status post left nephrostomy and tentatively scheduled for nephrectomy on January 26, 2025 at [facility] History of recurrent urinary tract infections Acute urinary tract infection, present on admission with a largely abnormal urinalysis, foul-smelling drainage and decreased urinary output, culture showing Cornibacterium stratum with sensitivities to Zyvox and will continue on 12 days per ID recommendations on discharge Constipation, improved and having bowel movements Generalized weakness with gait dysfunction and fall on 01/11/2025 striking head and left side of ribs, CT head negative and x-ray reveals no rib fractures, significant ecchymosis noted on the left lateral lower rib cage area History of asthma, not in exacerbation Coronary artery disease history Acute on chronic kidney disease History of heart failure, unknown EF 30 Diabetes mellitus type 2 History of GERD Hyperlipidemia Hypertension Previous myocardial infarctions History of osteoarthritis History of kidney failure stage V, scheduled for nephrectomy on the left January 26, 2025 at [facility] History of anxiety/depression Obesity with BMI of 39.3 aortic stenosis history and AICD placement with previous coronary artery bypass grafting and multiple stents previously Sepsis w/ MRSA Bacteremia Hospital Course: History of present illness; 74-year-old female with a significant past medical history of systolic CHF w/ EF 10-15% A-fib CAD, TAVR, nephrectomy and drug- induced liver injury, presents for weakness and chest pain. She has been at [facility] for rehab since being discharged 02/08/2025. On previous hospitalization patient was admitted for suspected drug-induced developed liver injury with evidence of elevated LFTs, elevated creatinine, and diffuse +2 pitting edema in all extremities. She was admitted for diuresis as well as medication management post Drug induced liver injury. At time of discharge, LFTs and creatinine had returned to normal range. Since admission to rehab, she reports she has been progressively feeling weaker developed chest pain yesterday. She reports symptoms are similar to last admission, she reports edema and fatigue not as severe as previous admission. She denies fever chills dizziness abdominal pain changes in stool dysuria polyuria hematuria. She endorses chest pressure and worsening weakness. In the ER she got an EKG which revealed sinus bradycardia, she also received a CT abdomen and pelvis that revealed no acute changes. Chest x-ray reveals cardiomegaly mild pulmonary edema without effusion. Labs in the ER revealed Cr 2.69, BUN 61, NA 129 K5.9 alk phos 135 ALT 72 BNP 9300 troponin within normal range CT A scan was wanted in the ER due to elevated D-dimer (3.07) but deferred due to kidney function, VQ ordered instead. Returned negative Patient was admitted to the hospital for WENDY and acute on chronic systolic heart failure with consults to cardiology and nephrology, pt medication regiment was reoptimized and WENDY was monitored for improvment with IV dieuresis. on 02/19 Rapid response was called for sustained wide QRS, hypotension, fever, hypoxic respiratory failure. Patient was placed on nonrebreather w/ amiodarone drip, QRS shortened appropriately. blood pressure was not recorded on noninvasive blood pressure despite IV fluid bolus. Radial pulse was still palpable, arterial line was placed and Levophed was initiated. Patient was upgraded to the ICU due to need for pressors. Central line was placed. Blood pressure currently stable. Blood cultures were drawn and grew MRSA where IV abx were initiated. Additionally massive transaminits was discovered on laboratories secondary to septic and cardiogenic shock. She was managed in the ICU, condition continued to deteriorate, prognosis was discussed with family where CODE STATUS was changed to DNR. On following day patient's condition continued to deteriorate despite management, on 02/22 care was withdrawn patient was placed on IV morphine. A total of 30 minutes were spent preparing this complex discarge summary. Patient on 02/22/2025 at 14:16 with family at bedside. Patient Condition at Discharge: Stable Plan - Discharge Summary New Discharge Prescriptions: No Action Montelukast [Singulair] 10 mg PO HS Famotidine [Pepcid] 20 mg PO HS Insulin Lispro [humaLOG Kwikpen] See Protocol SQ AC-TID Acetaminophen Tab [Tylenol] 1,000 mg PO BID@0800,1700 HYDROcodone/APAP 5-325MG [Arnett 5-325] 1 tab PO Q6HR PRN #4 tab PRN Reason: Pain Ondansetron [Zofran] 4 mg PO Q6H PRN PRN Reason: Nausea And Vomiting bisacodyL [Dulcolax] 10 mg RECTAL DAILY PRN PRN Reason: Constipation hydrALAZINE HCL [Apresoline] 25 mg PO TID@0600,1400,2200 Isosorbide Mononitrate ER [Imdur] 60 mg PO BID@0800,1700 Furosemide [Lasix] 40 mg PO BID@0800,1400 Glucerna Shake 237 ml PO DAILY Protect External Ointment 1 applic TOPICAL BID Insulin Glargine,Hum.rec.anlog [Lantus Solostar Pen] 10 units SQ BID Ranolazine [Ranexa] 500 mg PO BID@0800,1700 Nystatin 100,000 Unit/gm Powd [Mycostatin Powder] 1 applic TOPICAL BID Nystatin 100,000Unit/gm Cream [Mycostatin Cream] 1 applic TOPICAL BID Acetaminophen Tab [Tylenol] 1,000 mg PO Q6HR PRN PRN Reason: Pain Or Fever > 100.5 polyethylene glycoL 3350 [Miralax] 17 gm PO HS #30 packet FLUoxetine HCL [PROzac] 20 mg PO DAILY Lidocaine 5% Patch [Lidoderm 5% Patch] 1 patch TOPICAL DAILY Amiodarone [Cordarone] 200 mg PO DAILY 14 Days #14 tab Magnesium Hydroxide [Milk of Magnesia Concentrate] 7,200 mg PO DAILY PRN PRN Reason: Constipation Na Phos,M-B/Na Phos,Di-Ba [Fleet Adult] 133 ml RECTAL DAILY PRN PRN Reason: Constipation Metoprolol Tartrate [Lopressor] 50 mg PO BID@0800,1700 Spironolactone 25 mg PO DAILY allopurinoL [Zyloprim] 50 mg PO HS Discharge Medication List Famotidine [Pepcid] 20 mg PO HS 06/20/16 [History] Montelukast [Singulair] 10 mg PO HS 06/20/16 [History] Insulin Glargine,Hum.rec.anlog [Lantus Solostar Pen] 10 units SQ BID 02/21/23 [History] Insulin Lispro [humaLOG Kwikpen] See Protocol SQ AC-TID 02/21/23 [History] Ranolazine [Ranexa] 500 mg PO BID@0800,1700 02/21/23 [History] Nystatin 100,000 Unit/gm Powd [Mycostatin Powder] 1 applic TOPICAL BID 10/18/24 [History] Acetaminophen Tab [Tylenol] 1,000 mg PO BID@0800,1700 01/05/25 [History] Acetaminophen Tab [Tylenol] 1,000 mg PO Q6HR PRN 01/05/25 [History] Nystatin 100,000Unit/gm Cream [Mycostatin Cream] 1 applic TOPICAL BID 01/05/25 [History] polyethylene glycoL 3350 [Miralax] 17 gm PO HS #30 packet 01/15/25 [Rx] FLUoxetine HCL [PROzac] 20 mg PO DAILY 01/31/25 [History] Lidocaine 5% Patch [Lidoderm 5% Patch] 1 patch TOPICAL DAILY 01/31/25 [History] Amiodarone [Cordarone] 200 mg PO DAILY 14 Days #14 tab 02/08/25 [Rx] HYDROcodone/APAP 5-325MG [Arnett 5-325] 1 tab PO Q6HR PRN #4 tab 02/08/25 [Rx] Furosemide [Lasix] 40 mg PO BID@0800,1400 02/16/25 [History] Glucerna Shake 237 ml PO DAILY 02/16/25 [History] Isosorbide Mononitrate ER [Imdur] 60 mg PO BID@0800,1700 02/16/25 [History] Magnesium Hydroxide [Milk of Magnesia Concentrate] 7,200 mg PO DAILY PRN 02/16/25 [History] Metoprolol Tartrate [Lopressor] 50 mg PO BID@0800,1700 02/16/25 [History] Na Phos,M-B/Na Phos,Di-Ba [Fleet Adult] 133 ml RECTAL DAILY PRN 02/16/25 [History] Ondansetron [Zofran] 4 mg PO Q6H PRN 02/16/25 [History] Protect External Ointment 1 applic TOPICAL BID 02/16/25 [History] Spironolactone 25 mg PO DAILY 02/16/25 [History] allopurinoL [Zyloprim] 50 mg PO HS 02/16/25 [History] bisacodyL [Dulcolax] 10 mg RECTAL DAILY PRN 02/16/25 [History] hydrALAZINE HCL [Apresoline] 25 mg PO TID@0600,1400,2200 02/16/25 [History] Follow up Appointment(s)/Referral(s): Galo Borges MD [Primary Care Provider] - 1-2 days
== END 2025-02-22 17:12 | disposition expired | DRG 682 ==
LOC: EC 19:14 → 6NMEDSUR 02-16 01:06 → OBSVTOIN 02-16 01:06 → 1SOBS 02-16 05:50 → 3SCARD 02-18 04:59 → 2SICU 02-19 04:20
PROVIDERS: ADMIT Internal Medicine; ATTEND Internal Medicine
PROC: 02HV33Z Insertion of Infusion Device into Superior Vena Cava, Percutaneous Approach (ICD-10-PCS; principal; 2025-02-19)
PROC: 3E043XZ Introduction of Vasopressor into Central Vein, Percutaneous Approach (ICD-10-PCS; 2025-02-19)
PROC: 03HY32Z Insertion of Monitoring Device into Upper Artery, Percutaneous Approach (ICD-10-PCS; 2025-02-19)
PROC: 4A133B1 Monitoring of Arterial Pressure, Peripheral, Percutaneous Approach (ICD-10-PCS; 2025-02-19)
PROC: 4A133J1 Monitoring of Arterial Pulse, Peripheral, Percutaneous Approach (ICD-10-PCS; 2025-02-19)
DX: N17.0 Acute kidney failure with tubular necrosis (principal); A41.02 Sepsis due to Methicillin resistant Staphylococcus aureus; I50.23 Acute on chronic systolic (congestive) heart failure; K72.00 Acute and subacute hepatic failure without coma; J96.01 Acute respiratory failure with hypoxia; R65.21 Severe sepsis with septic shock; R57.0 Cardiogenic shock; K71.9 Toxic liver disease, unspecified; I13.0 Hypertensive heart and chronic kidney disease with heart failure and stage 1 through stage 4 chronic kidney disease, or unspecified chronic kidney disease; N18.4 Chronic kidney disease, stage 4 (severe); I27.20 Pulmonary hypertension, unspecified; E11.22 Type 2 diabetes mellitus with diabetic chronic kidney disease; E66.9 Obesity, unspecified; F32.A Depression, unspecified; Z95.3 Presence of xenogenic heart valve; J45.909 Unspecified asthma, uncomplicated; Z68.41 Body mass index [BMI] 40.0-44.9, adult; I47.20 Ventricular tachycardia, unspecified; E87.1 Hypo-osmolality and hyponatremia; E87.4 Mixed disorder of acid-base balance; N39.0 Urinary tract infection, site not specified; I48.0 Paroxysmal atrial fibrillation; Z79.4 Long term (current) use of insulin; Z86.74 Personal history of sudden cardiac arrest; Z95.1 Presence of aortocoronary bypass graft; Z95.810 Presence of automatic (implantable) cardiac defibrillator; E78.5 Hyperlipidemia, unspecified; I25.10 Atherosclerotic heart disease of native coronary artery without angina pectoris; I25.5 Ischemic cardiomyopathy; I25.2 Old myocardial infarction; K80.20 Calculus of gallbladder without cholecystitis without obstruction; E87.5 Hyperkalemia; E83.52 Hypercalcemia; F41.9 Anxiety disorder, unspecified; M10.9 Gout, unspecified; K59.00 Constipation, unspecified; I08.1 Rheumatic disorders of both mitral and tricuspid valves; Z66 Do not resuscitate; Z51.5 Encounter for palliative care; Z79.899 Other long term (current) drug therapy; Z79.01 Long term (current) use of anticoagulants; Z90.5 Acquired absence of kidney; Z88.1 Allergy status to other antibiotic agents; Z87.440 Personal history of urinary (tract) infections
CPT/HCPCS: 36415; 71045; 71046; 74176; 76705; 78582; 80048; 80053; 81001; 81003; 82040; 82247; 82306; 82652; 82805; 83540; 83550; 83605; 83690; 83735; 83880; 83970; 84075; 84132; 84155; 84165; 84450; 84460; 84484; 85025; 85379; 85610; 85730; 86334; 87040; 87077; 87086; 87186; 87635; 93005; 96365; 96366; 96375; 96376; 99291